=== PATIENT | female | born 1995 | race Caucasian/White ===

== ENCOUNTER 2022-11-08 09:03 | Outpatient (OUT) | payer OTHER, SELFPAY ==
--- NOTE | 2022-11-08 09:20 | MM_ITS ---
Patient: TESS ASHLEY Exam Date: 11/08/2022 : 1995 Gender:F Ordering : DR Aleksey Bell . Admission #: [id number] Family : Order #: [id number] CLICK HERE TO VIEW EXAM RADIOLOGY REPORT PROCEDURE: MM TOMOSYNTHESIS DIAGNOSTIC BI, 11/08/2022, 09:11 US BREAST RT LIMITED, 11/08/2022, 10:00 COMPARISON: MG MAMM DIAGNOSTIC 3D JESICA CAD, 11/29/2021. INDICATIONS: Mastodyna N64.4, Right Breast Lump N63.10 Calculator Name NCI Breast Cancer Risk Assessment Tool 5 Year Breast Cancer Risk Not Applicable. Lifetime Breast Cancer Risk Not Applicable. Personal Breast Cancer No Personal Ovarian Cancer No Treatments None Family Cancers Aunt-maternal with breast cancer at age 42. LOCATION: [facility] BREAST COMPOSITION: Heterogeneously dense,which may obscure small masses. FINDINGS: DIAGNOSTIC CATEGORY 1--NEGATIVE. NO CHANGE FROM COMPARISON ASSESSMENT. RIGHT BREAST: No significant suspicious finding. No mammographic or ultrasound abnormalities identified in the region of the patient's palpable mass upper-outer quadrant, anterior breast, this was demarcated a triangle marker. LEFT BREAST: No significant suspicious finding. RECOMMENDATIONS: CLINICAL EVALUATION. PLEASE NOTE: A NORMAL MAMMOGRAM DOES NOT EXCLUDE THE POSSIBILITY OF BREAST CANCER. A CLINICALLY SUSPICIOUS PALPABLE LUMP SHOULD BE BIOPSIED. Dictated by: Kevin Gentiel MD on 11/08/2022 at 10:09 Approved by: Kevin Gentile MD on 11/08/2022 at 10:10
--- NOTE | 2022-11-08 09:57 | US_ITS ---
Patient: TESS ASHLEY Exam Date: 11/08/2022 : 1995 Gender:F Ordering : DR Aleksey Bell . Admission #: [id number] Family : Order #: [id number] CLICK HERE TO VIEW EXAM RADIOLOGY REPORT PROCEDURE: MM TOMOSYNTHESIS DIAGNOSTIC BI, 11/08/2022, 09:11 US BREAST RT LIMITED, 11/08/2022, 10:00 COMPARISON: MG MAMM DIAGNOSTIC 3D JESICA CAD, 11/29/2021. INDICATIONS: Mastodyna N64.4, Right Breast Lump N63.10 Calculator Name NCI Breast Cancer Risk Assessment Tool 5 Year Breast Cancer Risk Not Applicable. Lifetime Breast Cancer Risk Not Applicable. Personal Breast Cancer No Personal Ovarian Cancer No Treatments None Family Cancers Aunt-maternal with breast cancer at age 42. LOCATION: [facility] BREAST COMPOSITION: Heterogeneously dense,which may obscure small masses. FINDINGS: DIAGNOSTIC CATEGORY 1--NEGATIVE. NO CHANGE FROM COMPARISON ASSESSMENT. RIGHT BREAST: No significant suspicious finding. No mammographic or ultrasound abnormalities identified in the region of the patient's palpable mass upper-outer quadrant, anterior breast, this was demarcated a triangle marker. LEFT BREAST: No significant suspicious finding. RECOMMENDATIONS: CLINICAL EVALUATION. PLEASE NOTE: A NORMAL MAMMOGRAM DOES NOT EXCLUDE THE POSSIBILITY OF BREAST CANCER. A CLINICALLY SUSPICIOUS PALPABLE LUMP SHOULD BE BIOPSIED. Dictated by: Kevin Gentile MD on 11/08/2022 at 10:09 Approved by: Kevin Gentile MD on 11/08/2022 at 10:10
== END 2022-11-08 09:04 | disposition home or self-care (01) ==
LOC: MAMMO 09:03
PROVIDERS: PCP Family Medicine; Visit Provider Family Medicine
DX: N64.4 Mastodynia (principal); N63.10 Unspecified lump in the right breast, unspecified quadrant
CPT/HCPCS: 76642; 77066; G0279

== ENCOUNTER 2022-12-13 12:07 | Outpatient (OUT) | payer OTHER, SELFPAY ==
[2022-12-13 13:00] LABS: Basophils Percent Auto 0.4 % (0.2-2.0); Eosinophils Absolute Auto 0.1 10^3/uL (0.0-0.7); Eosinophils Percent Auto 1.4 % (0.9-7.0); Hematocrit 42.2 % (36.0-48.0); Hemoglobin 13.1 g/dL (12.0-16.0); Immature Granulocytes Abs Auto 0.03 10^3/uL (0.00-0.03); Immature Granulocytes Pct Auto 0.3 % (0.0-0.5); Lymphocytes Absolute Auto 3.1 10^3/uL (1.2-3.8); Lymphocytes Percent Auto 34.3 % (20.5-60.0); Mean Corpuscular Hemoglobin 24.9 pg (26.7-34.0); Mean Corpuscular Volume 80.2 fL (81.0-99.0); Mean Platelet Volume 10.1 fL (9.5-13.5); Monocytes Absolute Auto 0.5 10^3/uL (0.3-0.8); Monocytes Percent Auto 5.7 % (1.7-12.0); Neutrophils Absolute Auto 5.2 10^3/uL (1.4-6.5); Neutrophils Percent Auto 57.9 % (43.0-75.0); Platelet Count 326 10^3/uL (150-450); Red Blood Count 5.26 10^6/uL (4.20-5.40); Red Cell Distribution Width 14.3 % (11.0-15.0)
[2022-12-13 13:06] LABS: Estimated Average Glucose 260 mg/dL; Glycohemoglobin A1C 10.7 % (4.5-6.2)
[2022-12-13 13:18] LABS: Alanine Aminotransferase 206 U/L (14-59); Albumin Globulin Ratio 0.9; Albumin Level 3.8 g/dL (3.4-5.0); Alkaline Phosphatase 71 U/L (46-116); Anion Gap 15.5; Aspartate Amino Transferase 101 U/L (15-37); Bilirubin Total 0.6 mg/dL (0.2-1.0); Calcium 9.2 mg/dL (8.5-10.1); Carbon Dioxide 25.5 mmol/L (21.0-32.0); Chloride 99 mmol/L (98-107); Chol HDL Ratio 5.6; Cholesterol 262 mg/dL (<=200); Estimated GFR (African America >60 (>=60); Estimated GFR (Non-African Ame >60 (>=60); Free T3 3.04 pg/mL (2.18-3.98); Globulin 4.2 g/dL; Glucose 222 mg/dL (74-106); HDL Cholesterol 47 mg/dL (40-60); Sodium 136 mmol/L (136-145); Triglycerides 312 mg/dL (<=150); VLDL CHOLESTEROL 62.4 mg/dL
[2022-12-14 12:08] LABS: Insulin 28.1 uIU/mL (2.6-24.9)
== END 2022-12-13 12:08 | disposition home or self-care (01) ==
LOC: LAB 12:08
PROVIDERS: PCP Family Medicine; Visit Provider Family Medicine
DX: Z00.00 Encounter for general adult medical examination without abnormal findings (principal); E55.9 Vitamin D deficiency, unspecified
CPT/HCPCS: 36415; 80053; 80061; 82306; 83036; 83525; 83540; 84436; 84443; 84481; 85025

== ENCOUNTER 2023-01-11 14:58 | Emergency (ER) | payer OTHER, SELFPAY ==
--- NOTE | 2023-01-11 15:03 | XR_ITS ---
[address] [address] Patient Name: TESS ASHLEY MRN: [id number] date: 1995 Sex: F Assigned Patient Location: ER Current Patient Location: ED.MAIN Accession/Order Number: [id number] Exam Date: 01/11/2023 15:10 Report Date: 01/11/2023 15:38 At the request of: NITIN CARTER Procedure: XR wrist LT min 3V EXAM: XR wrist LT min 3V HISTORY: Hit hand on bed frame COMPARISON: None. TECHNIQUE: 3 views FINDINGS: No osseous lesion, fracture, dislocation or subluxation. Joint spaces are normal. No visualized effusion. No visualized soft tissue edema. XR/XR wrist LT min 3V IMPRESSION: Normal x-rays Electronically authenticated by: MAY AUSTIN Date: 01/11/2023 15:38
[2023-01-11 15:04] VITALS: BP 149/65; PULSE 80; RESP 16; TEMP 37.1; O2SAT 98; BMI 45.6
--- NOTE | 2023-01-11 15:28 | ED.GENADUL1 ---
HPI - General Adult General Chief complaint: Extremity Injury, Upper Stated complaint: upper extremity left wrist Time Seen by Provider: 01/11/23 15:03 Source: patient Mode of arrival: walk-in History of Present Illness HPI narrative: 27-year-old female presents to er chief complaint of left wrist injury. She states she accidentally struck it against the bedpost. She has pain from these lateral aspect of the left wrist. No acute swelling. She has full range of motion. Extremity nv intact. She is right hand dominant. ice applied prior to arrival Related Data Previous Rx's Medication Instructions Recorded ibuprofen 800 mg tablet 800 mg PO Q8H PRN pain #20 tabs 01/11/23 Allergies Allergy/AdvReac Type Severity Reaction Status Date / Time No Known Drug Allergies Allergy Verified 01/11/23 15:08 Review of Systems ROS Narrative All Systems are negative except as noted/marked.All systems reviewed and otherwise negative Exam Narrative Exam Narrative: Nurses note and vital signs reviewed and patient is not hypoxic. General: The patient appears well and in no apparent distress. Patient is resting comfortably on cart. Skin: Warm, dry, no pallor noted. There is no rash noted. Head: Normocephalic, atraumatic Eye: Normal conjunctiva, no drainage, EOMI. PERRL Musculoskeletal: left wrist tenderness, full range of motion, no acute deformity. remainder of extremity are within normal limits. Neurological: A&O x4, normal speech Psychiatric: Cooperative Constitutional Vital Signs, click to edit/add: Last Vital Signs Temp 98.7 F 01/11/23 15:04 Pulse 80 01/11/23 15:04 Resp 16 01/11/23 15:04 BP 149/65 H 01/11/23 15:04 Pulse Ox 98 01/11/23 15:04 O2 Del Method Room Air 01/11/23 15:04 Course Vital Signs Vital signs: Vital Signs Temperature 98.7 F 01/11/23 15:04 Pulse Rate 80 01/11/23 15:04 Respiratory Rate 16 01/11/23 15:04 Blood Pressure 149/65 H 01/11/23 15:04 Pulse Oximetry 98 01/11/23 15:04 Oxygen Delivery Method Room Air 01/11/23 15:04 Temperature 98.7 F 01/11/23 15:04 Pulse Rate 80 11/04/23 15:04 Respiratory Rate 16 01/11/23 15:04 Blood Pressure 149/65 H 01/11/23 15:04 Pulse Oximetry 98 01/11/23 15:04 Oxygen Delivery Method Room Air 01/11/23 15:04 Medical Decision Making MDM Narrative Medical decision making narrative: she presented with a left wrist injury to left wrist. Accidentally struck it against a bedpost earlier this morning. No acute swelling or deformity. x-ray shows no acute fractures. Patient was treated as a left wrist sprain. Thumb spica splint placed by nursing staff. Patient tolerated well. Patient given prescription for ibuprofen. Instructed to follow-up primary care physician. Rest ice and elevate patient verbalizes understanding agrees with plan of care Medical Records Medical records reviewed: Yes I reviewed the patient's medical records Imaging Data wrist: Attestation: I have reviewed the pertinent imaging results. Discharge Plan Discharge Chief Complaint: Extremity Injury, Upper Clinical Impression: Sprain and strain of wrist Patient Disposition: Home, Self-Care Time of Disposition Decision: 15:25 Condition: Good Mode of Transportation: Private Vehicle Prescriptions / Home Meds: New ibuprofen 800 mg tablet 800 mg PO Q8H PRN (Reason: pain) Qty: 20 0RF Instructions: P.R.I.C.E. Treatment (ED), Wrist Sprain (ED) Stand Alone Forms: Portal Instructions Referrals: Aleksey Bell MD [Primary Care Provider] - 1 week Discharge Date/Time: 01/11/23 15:22
== END 2023-01-11 15:22 | disposition home or self-care (01) ==
LOC: ER 15:02
PROVIDERS: Emergency Provider Emergency Medicine; PCP Family Medicine
DX: S63.502A Unspecified sprain of left wrist, initial encounter (principal); S66.912A Strain of unspecified muscle, fascia and tendon at wrist and hand level, left hand, initial encounter; W22.03XA Walked into furniture, initial encounter
CPT/HCPCS: 73110; 99283

== ENCOUNTER 2023-02-27 07:25 | Outpatient (RCR) | payer OTHER, SELFPAY ==
[2023-02-27 08:21] LABS: HCG Quantitative 5358 mIU/mL
[2023-03-01 11:23] LABS: HCG Quantitative 6995 mIU/mL
== END 2023-03-09 08:00 | disposition home or self-care (01) ==
LOC: LAB 07:25
PROVIDERS: PCP Family Medicine; Visit Provider Obstetrics & Gynecology
DX: N92.6 Irregular menstruation, unspecified (principal)
CPT/HCPCS: 36415; 84702

== ENCOUNTER 2023-03-14 09:31 | Outpatient (OUT) | payer OTHER, SELFPAY ==
--- NOTE | 2023-03-14 09:34 | US_ITS ---
[address] [address] Patient Name: TESS ASHLEY MRN: [id number] date: 1995 Sex: F Assigned Patient Location: [place] Current Patient Location: [place] Accession/Order Number: [id number] Exam Date: 03/14/2023 09:35 Report Date: 03/14/2023 11:57 At the request of: PORSHA MOTA Procedure: US OB transvaginal EXAMINATION: US OB transvaginal HISTORY: MISSED MENSES COMPARISON: No relevant comparison available. FINDINGS: Cabrera intrauterine gestation Gestational sac: 1.7 cm, 6 weeks 0 days CRL: 1.3 cm, 7 weeks 3 days Yolk sac: 4.5 mm Heart rate: 165 bpm Cervix: Closed, 4.0 cm The uterus is normal, anteverted, anteflexed The ovaries are normal Clinical age: Unknown Ultrasound age: 7 weeks 3 days Ultrasound KULDIP: 10/28/2023 US/US OB transvaginal IMPRESSION: Viable cabrera intrauterine gestation measuring 7 weeks 3 days Electronically authenticated by: MAY PILLAI Date: 03/14/2023 11:57
--- OUTSIDE RECORDS SUMMARY | 2023-03-14 09:50 | XMS_ITS | CCD ---
Author Name Unknown Address [address] [facility] [facility] [address] [place] [address] Organization [facility] Care Team Providers Care Specialist Field Engineer Name Role Phone Champ Bell MD Primary Care Provider Champ Bell Primary Care Physician [phone] Champ Bell MD Primary Care Provider [phone] CHAMP BELL Admitting Unavailable COLLINSYCHAMP Primary Care Unavailable RHONDA BELLLAS Referring Unavailable GREGORIO FLOYD Attending Unava ilable HOY ., DR OAKES Primary Care Unavailable HOY ., DR OAKES Attending Unavailable HOY ., DR OAKES Admitting Unavailable HOY ., DR OAKES Primary Care Unavailable HOY ., DR OAKES Attending Unavailable HOY ., DR OAKES Admitting Unavailable HOY ., DR OAKES Primary Care Unavailable HOY ., DR OAKES Attending Unavailable HOY ., DR OAKES Admitting Unavailable HOY ., DR OAKES Primary Care Unavailable HOY ., DR OAKES Attending Unavailable HOY ., DR OAKES Admitting Unavailable HOY ., DR OAKES Consulting Unavailable HOY ., DR OAKES Primary Care Unavailable HOY ., DR OAKES Attending Unavailable HOY ., DR OAKES Admitting Unavailable HOY ., DR OAKES Consulting Unavailable HOY ., DR OAKES Primary Care Unavailable HOY ., DR OAKES Attending Unavailable HOY ., DR OAKES Admitting Unavailable MITA ., GREGORY Attending Unavailable MITA ., GREGORY Admitting Unavailable GRECHNY ., MARINA WILSON Consulting Unavailabl e HOY ., DR OAKES Primary Care Unavailable SYLVESTER PRINGLE Consulting Unavailable PARTH ., MARINA WILSON Consulting Unavailchad newton HAY ., DR MARTINEZ Attending Unavailable HAY ., DR MARTINEZ Admitting Unavailable HOY ., DR OAKES Primary Care Unavailable HAY ., DR MARTINEZ Consulting Unavailable TUAN LEWIS Consulting Unavailable HOY ., DR OAKES Consulting Unavailable HOY ., DR OAKES Primary Care Unavailable HOY ., DR OAKES Attending Unavailable HOY ., DR OAKES Admitting Unavailable HOY ., DR OAKES Consulting Unavailable HOY ., DR OAKES Primary Care Unavailable HOY ., DR OAKES Attending Unavailable HOY ., DR OAKES Admitting Unavailable ZIEBER, DR ALVARADO Silva Consulting Unavailable HOY ., DR OAKES Consulting Unavailable HOY ., DR OAKES Primary Care Unavailable HOY ., DR OAKES Attending Unavailable HOY ., DR OAKES Admitting Unavailable ZIEBER, DR ALVARADO Silva Consulting Unavailable HOY ., DR OAKES Consulting Unavailable HOY ., DR OAKES Primary Care Unavailable HOY ., DR OAKES Attending Unavailable HOY ., DR OAKES Admitting Unavailable MAGNOLIA, DR MAY Silverman Consulting Unavailable CRYSTAL PENG Consulting Unavailable COLLINSY ., DR OAKES Primary Care Unavailable CRYSTAL PENG Attending Unavailable CRYSTAL PENG Admitting Unavailable Medications Current Medications Medication Drug Class(es) Dates Sig (Normalized) Sig (Original) acetaminophen 325 mg / HYDROcodone bitartrate 5 mg oral tablet (1 source) Opioid Agonist Start: 07-03-2020 [place] 325 mg-5 mg oral tablet 1 tab(s), Oral, q6hr for pain, 8 tab(s), Refill(s) 0 Start Date: 07/03/20 Status: Ordered brexpiprazole 1 mg oral tablet (1 source) Atypical Antipsychotic Start: 06-05-2020 take 1 tablet by mouth once daily Rexulti 1 mg oral tablet mg tab(s), Oral, Daily, Refills(s) 0 Start Date: 06/05/20 Status: Ordered cetirizine hydrochloride 10 mg oral tablet (1 source) Histamine-1 Receptor Antagonist take 1 tablet by mouth once daily cetirizine (ZYRTEC) 10 MG tablet Take 10 mg by mouth daily . 0 Active 24 hr desvenlafaxine succinate 100 mg extended release oral tablet (2 sources) Serotonin and Norepinephrine Reuptake Inhibitor Start: 07-12-2021 take 1 tablet by mouth once daily, then take 1 tablet by mouth every twenty-four hours desvenlafaxine succinate (PRISTIQ) 100 MG 24 hr tablet Take 100 mg by mouth daily . 0 07/12/2021 Active Start: 06-05-2020 take 1 tablet by tori th once daily desvenlafaxine 100 mg Tab- 100 mg = 1 tab(s), Oral, Daily, # 30 tab(s), Refills(s) 0 Start Date: 06/05/20 Status: Ordered 0.5 ml dulaglutide 1.5 mg/ml auto-injector (1 source) GLP-1 Receptor Agonist Start: 08-22-2021 Trulicity 0.75 mg/0.5 mL Pen INJECT 1 PEN SUBCUTANEOUSLY ONCE A WEEK 0 08/22/2021 Active empagliflozin 25 mg oral tablet (2 sources) Sodium-Glucose Cotransporter 2 Inhibitor Start: 08-06-2021 take 1 tablet by mouth once daily Jardiance 25 mg Tab Take 1 tablet by mouth daily . 0 08/06/2021 Active Start: 06-05-2020 take 1 mg by mouth o nce daily in the morning Jardiance 10 mg oral tablet mg tab(s), Oral, qAM, Refills(s) 0 Start Date: 06/05/20 Status: Ordered ibuprofen 800 mg oral tablet (1 source) Nonsteroidal Anti-inflammatory Drug Start: 02-10-2020 take 1 mg by mouth three times daily ibuprofen 800 mg Tab mg tab(s), Oral, TID, Refills(s) 0 Start Date: 02/10/20 Status: Ordered Humalog (1 source) Insulin Analog Start: 02-10-2020 Humalog SubCutaneous, Refills(s) 0 Start Date: 02/10/20 Status: Ordered Lamictal (2 sources) Mood Stabilizer, Anti-epileptic Agent Start: 01-17-2019 Lamictal Oral, BID, Refills(s) 0 Start Date: 01/17/19 Status: Ordered take 1 tablet by mouth twice reinaldo ly lamoTRIgine (LAMICTAL) 100 MG tablet Take 100 mg by mouth 2 (two) times a day . 0 Active levothyroxine sodium 0.025 mg oral tablet (1 source) l-Thyroxine take 1 tablet by mouth once daily levothyroxine (SYNTHROID, LEVOTHROID) 25 MCG tablet Take 25 mcg by mouth once daily . 0 Active 24 hr metFORMIN hydrochloride 500 mg extended release oral tablet (2 sources) Biguanide Start: 08-27-2021 take 2 tablets by mouth twice daily at mealtime metFORMIN (GLUCOPHAGE-XR) 500 MG 24 hr tablet Take 2 (two) tablets (1,000 mg total) by mouth 2 (two) times a day with meals Increase dose gradually as instructed. . 120 tablet 11 08/27/2021 Active End: 08-27-2021 take 1 tablet by mouth once daily at breakfast metFORMIN (GLUCOPHAGE-XR) 500 MG 24 hr tablet Take 500 mg by mouth daily with breakfast . 0 08/27/2021 Discontinued (Reorder) Protonix (2 sources) Proton Pump Inhibitor Start: 01-17-2019 Protonix Oral, Daily, Refills(s) 0 Start Date: 01/17/19 Status: Ordered take 1 tablet by mouth once nella y pantoprazole (PROTONIX) 40 MG tablet Take 40 mg by mouth daily . 0 Active pioglitazone 15 mg oral tablet (1 source) Peroxisome Proliferator Receptor alpha Agonist, Peroxisome Proliferator Receptor gamma Agonist, Thiazolidinedione take 1 tablet by mouth once daily pioglitazone (ACTOS) 15 MG tablet Take 15 mg by mouth daily . 0 Active rosuvastatin calcium 10 mg oral tablet (1 source) HMG-CoA Reductase Inhibitor take 1 tablet by mouth once daily rosuvastatin (CRESTOR) 10 MG tablet Take 10 mg by mouth daily . 0 Active spironolactone 50 mg oral tablet (1 source) Aldosterone Antagonist take 1 tablet by mouth twice daily spironolactone (ALDACTONE) 50 MG tablet Take 50 mg by mouth 2 (two) times a day . 0 Active sucralfate 1000 mg oral tablet (1 source) Aluminum Complex Start: 021 take 1 tablet by mouth four times daily Carafate 1 gram Tab 1 gm = 1 tab(s), Oral, QID, # 120 tab(s), Refills(s) 0 Start Date: 06/05/20 Status: Ordered 24 hr venlafaxine 225 mg extended release oral tablet (1 source) Serotonin and Norepinephrine Reuptake Inhibitor Start: 019 take 225 mg by mouth once daily Effexor XR 225 mg, Oral, Daily, Refills(s) 0 Start Date: 01/17/19 Status: Ordered Problems Active Problems Problem Classification Problem Date Documented Da te Episodic/Chronic Cardiac dysrhythmias (4 sources) Palpitations; Translations: [PALPITATIONS] Onset: 04-23-2022 Episodic Congestive heart failure; nonhypertensive (1 source) Unspecified diastolic (congestive) heart failure; Translations: [UNSPECIFIED DIASTOLIC HEART FAILURE] Onset: 12-13-2021 Chronic Diabetes mellitus with complications (1 source) Hyperglycemia due to type 2 diabetes mellitus; Translations: [Type 2 diabetes mellitus with hyperglycemia] Chronic Diabetes mellitus without complication (2 sources) Diabetes mellitus; Translations: [Type 2 diabetes mellitus without complications] Onset: 03-15-2022 08-26-2013 Chronic Hypertension with complications and secondary hypertension (1 source) Hypertensive heart disease with heart failure; Translations: [HTN HEART DISEASE W/HEART FAIL] Onset: 12-13-2021 Chronic Mood disorders (1 source) Depressive disorder 01-17-2019 Chronic Other injuries and conditions due to external causes (1 source) Injury of head; Translations: [Unspecified injury of head, initial encounter] Onset: 08-25-2021 Episodic Other nervous system disorders (1 source) Skin sensation disturbance 06-07-2020 Episodic Other nutritional; endocrine; and metabolic disorders (1 source) Overweight; Translations: [OVERWEIGHT] Onset: 04-28-2022 Episodic Other skin disorders (2 sources) Loss of hair; Translations: [Nonscarring hair loss, unspecified] Episodic Other skin disorders (2 sources) Skin tag 06-05-2020 Episodic Other upper respiratory infections (5 sources) Acute sinusitis, unspecified; Translations: [Acute upper respiratory infection, unspecified] Onset: 03-15-2022 Episodic Screening and history of mental health and substance abuse codes (1 source) Personal history of nicotine dependence; Translations: [PERSONAL HISTORY OF NICOTINE DEPEND] Onset: 03-15-2022 Episodic Thyroid disorders (2 sources) Disorder of thyroid gland; Translations: [Disorder of thyroid, unspecified] Episodic Unclassified (1 source) CONTACT W/AND (SUSP) EXPOS COVID-19; Translations: [CONTACT W/AND (SUSP) EXPOS COVID-19] Onset: 06-02-2022 Unclassified (2 sources) COUGH, UNSPECIFIED; Translations: [COUGH, UNSPECIFIED] Onset: 03-15-2022 Unclassified (4 sources) Unspecified lump in the right breast, overlapping quadrants; Translations: [UNS LUMP RT BREAST OVRLPNG QUADRNTS] Onset: 11-29-2021 Past or Other Problems Problem Classification Problem Date Documented Da te Episodic/Chronic Deficiency and other anemia (1 source) Anemia, unspecified; Translations: [ANEMIA UNSPECIFIED] Onset: 12-13-2021 Episodic Diabetes mellitus without complication (1 source) Other abnormal glucose; Translations: [OTHER ABNORMAL GLUCOSE] Onset: 12-13-2021 Episodic E Codes: Overexertion (1 source) Slipping, tripping and stumbling without falling due to stepping into hole or opening, initial encounter; Translations: [SLIP STUMBL NO FALL STEP HOLE INIT] Onset: 08-17-2021 Episodic Genitourinary symptoms and ill-defined conditions (4 sources) Personal history of other diseases of urinary system; Translations: [PERSONAL HX OTH DZ URINARY SYSTEM] Onset: 06-13-2021 Episodic Nonspecific chest pain (4 sources) Other chest pain; Translations: [OTHER CHEST PAIN] Onset: 12-10-2021 Episodic Other non-traumatic joint disorders (3 sources) Pain in left knee; Translations: [PAIN IN LEFT KNEE] Onset: 08-15-2021 Episodic Sprains and strains (2 sources) Injury of muscle and tendon at neck level; Translations: [Strain of muscle, fascia and tendon at neck level, initial encounter] Onset: 08-17-2021 Episodic Superficial injury; contusion (1 source) Contusion of scalp, initial encounter; Translations: [CONTUSION SCALP INITIAL ENCOUNTER] Onset: 09-16-2021 Episodic Syncope (4 sources) Syncope and collapse; Translations: [SYNCOPE AND COLLAPSE] Onset: 09-12-2021 Episodic Unclassified (1 source) COUGH, UNSPECIFIED; Translations: [COUGH, UNSPECIFIED] Onset: 03-13-2022 Results Test Name Value Interpretation Reference Range Facility Covid-19 PCR ([facility])on 05-09 SARS-CoV-2 (COVID-19) RNA EZEKIEL+probe Ql (Unsp spec) Not detected Normal NOT DETECTED [facility] Comment on above: Result Comment: This test is not yet approved or cleared by the [place] FDA. When there are no FDA-approved or cleared tests available, and other criteria are met, FDA can make tests available under an emergency access mechanism called an Emergency Use Authorization (EUA). The EUA for this test is supported by the Lead Consultant of Health and Human Service's (HHS's) declaration that circumstances exist to justify the emergency use of in vitro diagnostics for the detection and/or diagnosis of the virus that causes COVID-19. This EUA will remain in effect (meaning this test can be used) for the duration of the COVID-19 declaration justifying emergency of IVDs, unless it is terminated or revoked by FDA (after which the test may no longer be used). When diagnostic testing is negative, the possibility of a false negative should be considered in the context of a patient's recent exposures and the presence of clinical signs and symptoms consistent with SARS-CoV-2. Performed By: #### C VDTBH #### [facility] [address] [place] [address] Dr. Rosemary Ames GROUP A STREP CULTUREon 05-09 S. pyogenes Ag Ql (Unsp spec) Culture Observations: NEGATIVE FOR GROUP A STREPTOCOCCUS. Normal [facility] Comment on above: Performed By: #### T 7, LIPID, TSH, CMADM, BNP, CMP #### [facility] [address] [place] [address] Dr. Rosemary Ames INFLUENZA A AND B AGon 05-31 INFLUANEGH SEE BELOW Normal [facility] Comment on above: Result Comment: Nega tive for Flu A protein angiten. Infection due to Flu A cannot be ruled out. Flu A angiten in the sample may be below the detection limit of the test. Performed By: #### I NFLUAB #### [facility] [address] [place] [address] Dr. Rosemary Ames INFLUBNEG SEE BELOW Normal [facility] Comment on above: Result Comment: Nega tive for Flu B protein antigen. Infection due to Flu B cannot be ruled out. Flu B antigen in the sample may be below the detection limit of the test. Performed By: #### I NFLUAB #### [facility] [address] [place] [address] Dr. Rosemary Ames INFLUENZA A AG Negative Normal NEGATIVE SEE COMMENT [facility] Comment on above: Performed By: #### I NFLUAB #### [facility] [address] [place] [address] Dr. Rosemary Ames INFLUENZA B AG Negative Normal NEGATIVE SEE COMMENT [facility] Comment on above: Performed By: #### I NFLUAB #### [facility] [address] [place], [place] [address] Dr. Rosemary Ames STREPT SCREENon 05-31-2022 STREP SCREEN A Negative Normal NEGATIVE [facility] Comment on above: Performed By: #### E RUR #### [facility] [address] [place], [place] [address] Dr. Rosemary Ames SYMPTOMATIC COVID-19 ANTIGEN on 05-31-2022 EUA Statement SEE BELOW Normal [facility] Comment on above: Result Comment: This test has not been FDA cleared or approved, but has been authorized by the FDA under an Emergency Use Authorization (EUA) for use by authorized laboratories certified under CLIA that meet the requirements to perform moderate or high complexity testing. This test has been authorized only for the detection of proteins from SARS-CoV-2, not for any other viruses or pathogens. The emergency use of this test is authorized for the duration of the declaration that circumstances exist justifying the authorization of emergency use of in vitro diagnostic tests for detection and/or diagnosis of Covid-19 under section 564(b)(1) of the Act, 21 U.S.C. 360bbb-3(b)(1), unless the declaration is terminated or authorization is revoked sooner. Performed By: #### T 7, LIPID, TSH, CMADM, BNP, CMP #### [facility] [address] [place] [address] [address] Rosemary Ames SARS-CoV-2 (COVID-19) RNA EZEKIEL+probe Ql (Unsp spec) Negative Normal NEGATIVE [facility] Comment on above: Performed By: #### T 7, LIPID, TSH, CMADM, BNP, CMP #### [facility] [address] [place] [id number] Rosemary Ames ECHOCARDIO M/2D COMPLETEon 0 04-10-2022 ECHOCARDIO M/2D COMPLETE Patient: TESS ASHLEY Exam Date: 04/10/2022 : 1995 Gender:F Ordering : DR CHAMP BELL . Admission #: [id number] Family : Order #: [id number] CLICK HERE TO VIEW EXAM ECHOCARDIOGRAM REPORT PROCEDURE: CARDIO PULMONARY ECHOCARDIO M/2D COMP INDICATIONS: Palpitations, diabetes COMPARISON: None. DESCRIPTION: COMPLETE ECHOCARDIOGRAM Real-time transthoracic echocardiography with 2D, M-mode, spectral and color flow Doppler performed. QUALITY: Technical quality was good. 60 248# BP 136/78 LEFT VENTRICLE: Normal chamber size. Normal left ventricular wall thickness. Normal systolic function. LV EF: Normal left ventricular ejection fraction, (>55%). DIASTOLIC: Normal diastolic function. ATRIAL SEPTUM: Visually appears intact. LEFT ATRIUM: Normal chamber size. RIGHT ATRIUM: Normal chamber size. RIGHT VENTRICLE: Normal chamber size. Normal right ventricular systolic function. TRICUSPID VALVE: Normal mobility and thickness. No stenosis with trivial regurgitation. No evidence of pulmonary hypertension. RVSP 30 mmHg MITRAL VALVE: Normal mobility and thickness. No evidence of mitral valve stenosis. No mitral regurgitation. AORTIC VALVE: Normal trileaflet appearance. No visible sclerosis. Normal leaflet mobility. No evidence of aortic valve stenosis. No aortic regurgitation. AORTIC ROOT: Normal diameter and appearance. PULMONIC VALVE: Normal thickness and mobility. No stenosis. No regurgitation. PERICARDIUM: No evidence of pericardial effusion. IVC: IVC is normal in size with no collapse. PLEURA: CONCLUSION: 1. Normal ventricular function. LVEF is 55 to 60%. 2. No significant valvular dysfunction. 3. Normal right-sided pressures. 4. No pericardial effusion. Adult Echocardiography Procedure Report Left Ventricle LVEDD (3.7 - 5.6 cm): 4.36 cm LVESD (2.2 - 4.0 cm): 3.31 cm LVIVS thickness (0.6 - 1.2 cm): 0.84 cm LVPW thickness (0.5 - 1.0 cm): 0.86 cm e': 0.15 m/s E - e': 6.90 LVOT Max Gradient: 3.37 mm[Hg] Peak Velocity (LVOT): 0.92 m/s LVOT Diameter 2.11 cm Left Ventricular Ejection Fraction: 55-60 % Left Atrium LA Volume Index (2D A2C): 51.48 ml, 51.48 ml Left Atrium Systolic Dimension: 3.44 cm Mitral Valve MV E to A Ratio: 1.52 Mitral Valve A-Wave Peak Velocity: 0.69 m/s Mitral Valve E-Wave Peak Velocity: 1.05 m/s Right Ventricle Aorta AO Root Diam: 2.70 cm Aortic Valve AoV Area (Peak Joshua): 3.05 cm2, 3.05 cm2 Peak Velocity(Antegrade Flow): 1.05 m/s Peak Gradient(Antegrade Flow): 4.42 mm[Hg] Tricuspid Valve Peak Velocity (Regurgitant Flow): 2.34 m/s Peak Velocity: 0.58 m/s Pulmonic Valve Peak Velocity: 1.07 m/s, 0.92 m/s Peak Gradient: 4.60 mm[Hg], 3.37 mm[Hg] Right Atrium Right Atrium Systolic Pressure: 27.72 ml, 27.72 ml Dictated by: Robert Moeller M.D. on 04/10/2022 at 17:38 Approved by: Robert Moeller M.D. on 04/10/2022 at 17:40 Normal [facility] CBC AUTO DIFFon 03-13-2022 BASO # 0.0 103/ul Normal 0.0-0.1 [facility] Comment on above: Performed By: #### A 1C #### [facility] [address] [place] [address] Dr. Rosemary Ames Basophils/100 WBC (Bld) 0.3 % Normal 0.2-2.0 [facility] Comment on above: Performed By: #### A 1C #### [facility] [address] [place] [address] Dr. Rosemary Ames EO # 0.0 103/ul Normal 0.0-0.7 [facility] Comment on above: Performed By: #### A 1C #### [facility] [address] [place] [address] Dr. Rosemary Ames Eosinophils/100 WBC (Bld) 0.5 % Critically low 0.9-7.0 [facility] Comment on above: Performed By: #### A 1C #### [facility] [address] [place] [address] Dr. Rosemary Ames Erythrocyte distribution width (RBC) [Ratio] 14.5 % Normal 11.0-15.0 [facility] Comment on above: Performed By: #### A 1C #### [facility] [address] [place] [address] Dr. Rosemary Ames Hematocrit (Bld) [Volume fraction] 39.7 % Normal 36.0-48.0 [facility] Comment on above: Performed By: #### A 1C #### [facility] [address] [place] [address] Dr. Rosemary Ames Hemoglobin (Bld) [Mass/Vol] 12.9 g/dL Normal 12.0-16.0 [facility] Comment on above: Performed By: #### A 1C #### [facility] [address] [place] [address] Dr. Rosemary Ames IG # 0.03 10e3/ul Normal 0.00-0.03 [facility] Comment on above: Performed By: #### A 1C #### [facility] [address] [place] [address] Dr. Rosemary Ames IG % 0.4 % Normal 0.0-0.5 [facility] Comment on above: Performed By: #### A 1C #### [facility] [address] [place] [address] Dr. Rosemary Ames LYMPH # 0.5 103/ul Critically low 1.2-3.8 [facility] Comment on above: Performed By: #### A 1C #### [facility] [address] [place] [address] Dr. Rosemary Ames Lymphocytes/100 WBC (Bld) 6.6 % Critically low 20.5-60.0 [facility] Comment on above: Performed By: #### A 1C #### [facility] [address] [place] [address] Dr. Rosemary Ames MANUAL DIFF REQ NO Normal [facility] Comment on above: Performed By: #### A 1C #### [facility] [address] [place] [address] Dr. Rosemary Ames MCH (RBC) [Entitic mass] 25.1 pg Critically low 26.7-34.0 [facility] Comment on above: Performed By: #### A 1C #### [facility] [address] [place] [address] Dr. Rosemary Ames MCHC (RBC) [Mass/Vol] 32.5 g/dL Normal 29.9-35.2 [facility] Comment on above: Performed By: #### A 1C #### [facility] [address] [place] [address] [address] Rosemary Ames MCV (RBC) [Entitic vol] 77.2 fL Critically low 81.0-99.0 [facility] Comment on above: Performed By: #### A 1C #### [facility] [address] [place] [address] [address] Rosemary Ames MONO # 0.7 103/ul Normal 0.3-0.8 [facility] Comment on above: Performed By: #### A 1C #### [facility] [address] [place] [address] Dr. Rosemary Ames Monocytes/100 WBC (Bld) 9.3 % Normal 1.7-12.0 [facility] Comment on above: Performed By: #### A 1C #### [facility] [address] [place] [address] Dr. Rosemary Ames NEUT # 6.2 103/ul Normal 1.4-6.5 [facility] Comment on above: Performed By: #### A 1C #### [facility] [address] [place] [address] Dr. Rosemary Ames Neutrophils/100 WBC (Bld) 82.9 % Critically high 43.0-75.0 [facility] Comment on above: Performed By: #### A 1C #### [facility] [address] [place] [address] [address] Rosemary Ames Platelet mean volume (Bld) [Entitic vol] 9.8 fL Normal 9.5-13.5 [facility] Comment on above: Performed By: #### A 1C #### [facility] [address] [place] [address] Dr. Rosemary Ames PLT 246 103/ul Normal 150-450 [facility] Comment on above: Performed By: #### A 1C #### [facility] [address] [place] [address] Dr. Rosemary Ames RBC 5.14 106/ul Normal 4.20-5.40 [facility] Comment on above: Performed By: #### A 1C #### [facility] [address] [place] [address] [address] Rosemary Ames WBC 7.4 103/ul Normal 4.0-11.0 [facility] Comment on above: Performed By: #### A 1C #### [facility] [address] [place] [address] [address] Rosemary Ames Covid-19 PCR ([facility])on SARS-CoV-2 (COVID-19) RNA EZEKIEL+probe Ql (Unsp spec) Not detected Normal NOT DETECTED [facility] Comment on above: Result Comment: When diagnostic testing is negative, the possibility of a false negative should be considered in the context of a patient's recent exposures and the presence of clinical signs and symptoms consistent with SARS-CoV-2. This test is not yet approved or cleared by the [place] FDA. When there are no FDA-approved or cleared tests available, and other criteria are met, FDA can make tests available under an emergency access mechanism called an Emergency Use Authorization (EUA). The EUA for this test is supported by the [place] of Health and Human Service's declaration that circumstances exist to justify the emergency use of in vitro diagnostics for the detection and/or diagnosis of the virus that causes COVID-19. This EUA will remain in effect for the duration of the COVID-19 declaration justifying emergency of IVDs, unless it is terminated or revoked by the FDA (after which the test may no longer be used). Performed By: #### A 1C #### [facility] [address] [place] [address] Dr. Rosemary Ames D-DIMERon 03-13-2022 D-DIMER 0.26 mg/L FEU Normal <=0.59 [facility] Comment on above: Performed By: #### T 7, LIPID, TSH, CMADM, BNP, CMP #### [facility] [address], [place] [address] Dr. Rosemary Ames D-DIMER COMMENTS SEE BELOW Normal The [facility] Comment on above: Result Comment: Incr eases in D-Dimer concentration observed with thromboembolic events can be variable due to localization, size, and age of the thrombus. Therefore, a thromboembolic event cannot be diagnosed with certainty on the basis of the reference range. D-Dimers may also be elevated for a variety of disorders including: advanced age, , coronary disease, cancer, liver disease, infection, inflammation, hematoma, DIC, trauma, post-surgery, diabetes, thrombolytic or anticoagulant therapy, stress, and generalized hospitalization. Performed By: #### T 7, LIPID, TSH, CMADM, BNP, CMP #### [facility] [address] [place] [address] Dr. Rosemary Ames ER URINE PROFILEon 3 Bilirubin Ql (U) Negative Normal NEGATIVE [facility] Comment on above: Performed By: #### E RUR #### [facility] [address] [place] [address] Dr. Rosemary Ames Clarity (U) CLEAR Normal CLEAR [facility] Comment on above: Performed By: #### E RUR #### [facility] [address] [place] [address] Dr. Rosemary Ames Color (U) LT. YELLOW Normal YELLOW [facility] Comment on above: Performed By: #### E RUR #### [facility] [address] [place] [address] Dr. Rosemary MARTIN A micrscopic examination will be performed if indicated. Normal [facility] Comment on above: Performed By: #### E RUR #### [facility] [address] [place] [address] Dr. Rosemary Ames Glucose Ql (U) Negative Normal NEGATIVE [facility] Comment on above: Performed By: #### E RUR #### [facility] [address] [place] [address] Dr. Rosemary Ames Hemoglobin Ql (U) Negative Normal NEGATIVE The [facility] Comment on above: Performed By: #### E RUR #### [facility] [address] [place] [address] Dr. Rosemary Ames Ketones Ql (U) Negative Normal NEGATIVE [facility] Comment on above: Performed By: #### E RUR #### [facility] [address] [place] [address] Dr. Rosemary Ames LEUKOCYTES Negative Normal NEGATIVE [facility] Comment on above: Performed By: #### E RUR #### [facility] [address] [place] [address] Dr. Rosemary Ames Nitrite Ql (U) Negative Normal NEGATIVE [facility] Comment on above: Performed By: #### E RUR #### [facility] [address] [place] [address] Dr. Rosemary Ames pH (U) 6.0 [pH] Normal 5-9 [facility] Comment on above: Performed By: #### E RUR #### [facility] [address] [place] [address] Dr. Rosemary Ames SPEC GRAVITY 1.015 Normal 1.005-<=1.025 [facility] Comment on above: Performed By: #### E RUR #### [facility] [address] [place] [address] Dr. Rosemary Ames UA PROTEIN Negative Normal NEGATIVE/ TRACE [facility] Comment on above: Performed By: #### E RUR #### [facility] [address] [place] [address] Dr. Rosemary Ames UR MICRO IND NOT INDICATED Normal The [facility] Comment on above: Performed By: #### E RUR #### [facility] [address] [place] [address] Dr. Rosemary Ames Urobilinogen Qn (U) 0.2 {Vincent'U}/dL Normal 0.2 - 1. 0 [facility] Comment on above: Performed By: #### E RUR #### [facility] [address] [place] [address] Dr. Rosemary Ames INFLUENZA A AND B AGon 03-13 INFLUANEGH SEE BELOW Normal [facility] Comment on above: Result Comment: Nega tive for Flu A protein angiten. Infection due to Flu A cannot be ruled out. Flu A angiten in the sample may be below the detection limit of the test. Performed By: #### E RUR #### [facility] [address] [place] [address] Dr. Rosemary Ames [facility] SEE BELOW Normal [facility] Comment on above: Result Comment: Nega tive for Flu B protein antigen. Infection due to Flu B cannot be ruled out. Flu B antigen in the sample may be below the detection limit of the test. Performed By: #### E RUR #### [facility] [address] [place] [address] Dr. Rosemary Ames INFLUENZA A AG Negative Normal NEGATIVE SEE COMMENT [facility] Comment on above: Performed By: #### E RUR #### [facility] [address] [place] [address] Dr. Rosemary Ames INFLUENZA B AG Negative Normal NEGATIVE SEE COMMENT [facility] Comment on above: Performed By: #### E RUR #### [facility] [address] [place] [address] Dr. Rosemary Ames LACTATE/LACTIC ACIDon 2022 Lactate [Moles/Vol] 2.0 mmol/L Critically high 0.4-1.9 [facility] Comment on above: Performed By: #### A 1C #### [facility] [address] [place] [address] Dr. Rosemary Ames LIPASEon 03-13-2022 Lipase [Catalytic activity/Vol] 79.0 U/L Normal 73.0-393.0 [facility] Comment on above: Performed By: #### A 1C #### [facility] [address] [place] [address] Dr. Rosemary Ames PREG HCG QUALon 03-13-2022 , QUAL Negative Normal NEGATIVE [facility] Comment on above: Performed By: #### A 1C #### [facility] [address] [place] [address] Dr. Rosemary Ames PROF 14(COMP METB)on 023 Albumin [Mass/Vol] 4.1 g/dL Normal 3.4-5.0 [facility] Comment on above: Performed By: #### A 1C #### [facility] [address] [place] [address] Dr. Rosemary Ames Albumin/Globulin [Mass ratio] 1.1 {ratio} Normal [facility] Comment on above: Performed By: #### A 1C #### [facility] [address] [place] [address] [address] Rosemary Ames ALP [Catalytic activity/Vol] 77 U/L Normal 46-116 [facility] Comment on above: Performed By: #### A 1C #### [facility] [address] [place] [address] [address] Rosemary Ames ALT [Catalytic activity/Vol] 149 U/L Critically high 14-59 [facility] Comment on above: Performed By: #### A 1C #### [facility] [address] [place] [address] [address] Rosemary Ames Anion gap [Moles/Vol] 16.0 mmol/L Normal [facility] Comment on above: Performed By: #### A 1C #### [facility] [address] [place] [address] [address] Rosemary Ames AST [Catalytic activity/Vol] 82 U/L Critically high 15-37 [facility] Comment on above: Performed By: #### A 1C #### [facility] [address] [place] [address] [address] Rosemary Ames Bilirubin [Mass/Vol] 1.0 mg/dL Normal 0.2-1.0 [facility] Comment on above: Performed By: #### A 1C #### [facility] [address] [place] [address] [address] Rosemary Ames Calcium [Mass/Vol] 9.1 mg/dL Normal 8.5-10.1 [facility] Comment on above: Performed By: #### A 1C #### [facility] [address] [place] [address] [address] Rosemary Ames Chloride [Moles/Vol] 96 mmol/L Critically low 98-107 [facility] Comment on above: Performed By: #### A 1C #### [facility] [address] [place] [address] [address] Rosemary Ames CO2 [Moles/Vol] 25.7 mmol/L Normal 21.0-32.0 [facility] Comment on above: Performed By: #### A 1C #### [facility] [address] [place] [address] [address] Rosemary Ames Creatinine [Mass/Vol] 0.78 mg/dL Normal 0.55-1.02 [facility] Comment on above: Performed By: #### A 1C #### [facility] [address] [place] [address] [address] Rosemary Ames EGFR-AF MARSHALLESE >60 Normal >=60 [facility] Comment on above: Performed By: #### A 1C #### [facility] [address] [place] [address] [address] Rosemary Ames EGFR-NON AF MARSHALLESE >60 Normal >=60 [facility] Comment on above: Performed By: #### A 1C #### [facility] [address] [place] [address] Dr. Rosemary Ames Globulin (S) [Mass/Vol] 3.9 g/dL Normal [facility] Comment on above: Performed By: #### A 1C #### [facility] [address] [place] [address] Dr. Rosemary Ames Glucose [Mass/Vol] 190 mg/dL Critically high 74-106 T [facility] Comment on above: Performed By: #### A 1C #### [facility] [address] [place] [address] Dr. Rosemary Ames Potassium [Moles/Vol] 3.7 mmol/L Normal 3.5-5.1 [facility] Comment on above: Performed By: #### A 1C #### [facility] [address] [place] [address] Dr. Rosemary Ames Protein [Mass/Vol] 8.0 g/dL Normal 6.4-8.2 [facility] Comment on above: Performed By: #### A 1C #### [facility] [address] [place] [address] Dr. Rosemary Ames Sodium [Moles/Vol] 134 mmol/L Critically low 136-145 Th [facility] Comment on above: Performed By: #### A 1C #### [facility] [address] [place] [address] [address] Rosemary Ames Urea nitrogen [Mass/Vol] 9.0 mg/dL Normal 7.0-18.0 [facility] Comment on above: Performed By: #### A 1C #### [facility] [address] [place] [address] Dr. Rosemary Ames Urea nitrogen/Creatinine [Mass ratio] 11.5 mg/mg Normal [facility] Comment on above: Performed By: #### A 1C #### [facility] [address] [place] [address] Dr. Rosemary Ames TROPONIN, HIGH SENSITIVITYon 03-13-2022 HSTROP <4.0 Normal 4.0-51.3 [facility] Comment on above: Result Comment: CUT- OFF POINTS HAVE BEEN ESTABLISHED BASED ON THE FOURTH UNIVERSAL DEFINITIONS OF MYOCARDIAL INFARCTION. THE UPPER REFERENCE LIMIT (URL) OF TROPONIN, DEFINED THE 99TH PERCENTILE OF cTnI DISTRIBUTION IN A REFERENCE POPULATION, HAS BEEN CONFIRMED THE DECISION THRESHOLD FOR CA DIAGNOSIS. Previously reported as: 3.9 On 03/13/2022 18:24 By DM9 Performed By: #### A 1C #### [facility] [address] [place] [address] Dr. Rosemary Ames TSHon 03-13-2022 TSH 0.440 uIU/mL Normal 0.358-3.740 [facility] Comment on above: Performed By: #### A 1C #### [facility] [address] [place] [address] Dr. Rosemary Ames XR CHEST 1 Von 03-13-2022 XR CHEST 1 V EXAM: XR CHEST 1 V HISTORY: The patient is a 26-year-old female with COUGH COMPARISON: None. FINDINGS: The lungs are well-inflated and clear with no confluent airspace infiltrates, pleural effusions, or pneumothoraces. The cardiac silhouette is enlarged. There is no radiographic evidence of yasmine pulmonary edema. The trachea is midline. IMPRESSION: No acute cardiopulmonary abnormalities. Electronically authenticated by: TUAN LEWIS Date: 2022-03-13 18:59 Normal [facility] INSULINon 12-11-2021 Insulin 40.7 uIU/mL Critically high 2.6-24.9 The [facility] Comment on above: Performed By: #### A 1C #### [facility] [address] [place] [address] [address] Rosemary Ames BNPon 12-10-2021 NT PRO BNP <11.1 Normal <=450.0 [facility] Comment on above: Performed By: #### T 7, LIPID, TSH, CMADM, BNP, CMP #### [facility] [address] [place] [address] [address] Rosemary Ames CARDIAC RY ADMITon 022 CK [Catalytic activity/Vol] 80 U/L Normal 26-192 [facility] Comment on above: Performed By: #### T 7, LIPID, TSH, CMADM, BNP, CMP #### [facility] [address] [place] [address] Dr. Rosemary Ames CK.MB [Mass/Vol] 0.56 ng/mL Normal <=3.60 [facility] Comment on above: Performed By: #### T 7, LIPID, TSH, CMADM, BNP, CMP #### [facility] [address] [place] [address] Dr. Rosemary Ames HSTROP 5.3 pg/mL Normal 4.0-51.3 [facility] Comment on above: Result Comment: CUT- OFF POINTS HAVE BEEN ESTABLISHED BASED ON THE FOURTH UNIVERSAL DEFINITIONS OF MYOCARDIAL INFARCTION. THE UPPER REFERENCE LIMIT (URL) OF TROPONIN, DEFINED THE 99TH PERCENTILE OF cTnI DISTRIBUTION IN A REFERENCE POPULATION, HAS BEEN CONFIRMED THE DECISION THRESHOLD FOR CA DIAGNOSIS. Performed By: #### T 7, LIPID, TSH, CMADM, BNP, CMP #### [facility] [address] [place] [address] Dr. Rosemary Ames RADHA 26 ng/mL Normal 9-82 [facility] Comment on above: Performed By: #### T 7, LIPID, TSH, CMADM, BNP, CMP #### [facility] [address] [place] [address] Dr. Rosemary Ames CBC AUTO DIFFon 12-10-2021 BASO # 0.0 103/ul Normal 0.0-0.1 [facility] Comment on above: Performed By: #### E RUR #### [facility] [address] [place] [address] Dr. Rosemary Ames Basophils/100 WBC (Bld) 0.4 % Normal 0.2-2.0 [facility] Comment on above: Performed By: #### E RUR #### [facility] [address] [place] [address] Dr. Rosemary Ames EO # 0.1 103/ul Normal 0.0-0.7 [facility] Comment on above: Performed By: #### E RUR #### [facility] [address] [place] [address] Dr. Rosemary Ames Eosinophils/100 WBC (Bld) 1.0 % Normal 0.9-7.0 [facility] Comment on above: Performed By: #### E RUR #### [facility] [address] [place] [address] Dr. Rosemary Ames Erythrocyte distribution width (RBC) [Ratio] 13.7 % Normal 11.0-15.0 [facility] Comment on above: Performed By: #### E RUR #### [facility] [address] [place] [address] Dr. Rosemary Ames Hematocrit (Bld) [Volume fraction] 40.9 % Normal 36.0-48.0 [facility] Comment on above: Performed By: #### E RUR #### [facility] [address] [place] [address] Dr. Rosemary Ames Hemoglobin (Bld) [Mass/Vol] 13.0 g/dL Normal 12.0-16.0 [facility] Comment on above: Performed By: #### E RUR #### [facility] [address] [place] [address] Dr. Rosemary Ames IG # 0.03 10e3/ul Normal 0.00-0.03 [facility] Comment on above: Performed By: #### E RUR #### [facility] [address] [place] [address] Dr. Rosemary Ames IG % 0.4 % Normal 0.0-0.5 [facility] Comment on above: Performed By: #### E RUR #### [facility] [address] [place] [address] [address] Rosemary Ames LYMPH # 2.4 103/ul Normal 1.2-3.8 [facility] Comment on above: Performed By: #### E RUR #### [facility] [address] [place] [address] Dr. Rosemary Ames Lymphocytes/100 WBC (Bld) 30.3 % Normal 20.5-60.0 [facility] Comment on above: Performed By: #### E RUR #### [facility] [address] [place] [address] Dr. Rosemary Ames MANUAL DIFF REQ NO Normal [facility] Comment on above: Performed By: #### E RUR #### [facility] [address] [place] [address] Dr. Rosemary Ames MCH (RBC) [Entitic mass] 25.8 pg Critically low 26.7-34.0 [facility] Comment on above: Performed By: #### E RUR #### [facility] [address] [place] [address] Dr. Rosemary Ames MCHC (RBC) [Mass/Vol] 31.8 g/dL Normal 29.9-35.2 [facility] Comment on above: Performed By: #### E RUR #### [facility] [address] [place] [address] Dr. Rosemary Ames MCV (RBC) [Entitic vol] 81.2 fL Normal 81.0-99.0 [facility] Comment on above: Performed By: #### E RUR #### [facility] [address] [place] [address] Dr. Rosemary Ames MONO # 0.5 103/ul Normal 0.3-0.8 [facility] Comment on above: Performed By: #### E RUR #### [facility] [address] [place] [address] Dr. Rosemary Ames Monocytes/100 WBC (Bld) 6.1 % Normal 1.7-12.0 [facility] Comment on above: Performed By: #### E RUR #### [facility] [address] [place] [address] Dr. Rosemary Ames NEUT # 5.0 103/ul Normal 1.4-6.5 [facility] Comment on above: Performed By: #### E RUR #### [facility] [address] [place] [address] Dr. Rosemary Ames Neutrophils/100 WBC (Bld) 61.8 % Normal 43.0-75.0 [facility] Comment on above: Performed By: #### E RUR #### [facility] [address] [place] [address] Dr. Rosemary Ames Platelet mean volume (Bld) [Entitic vol] 9.9 fL Normal 9.5-13.5 [facility] Comment on above: Performed By: #### E RUR #### [facility] [address] [place] [address] Dr. Rosemary Ames PLT 284 103/ul Normal 150-450 [facility] Comment on above: Performed By: #### E RUR #### [facility] [address] [place] [address] Dr. Rosemary Ames RBC 5.04 106/ul Normal 4.20-5.40 [facility] Comment on above: Performed By: #### E RUR #### [facility] [address] [place] [address] Dr. Rosemary Ames WBC 8.0 103/ul Normal 4.0-11.0 [facility] Comment on above: Performed By: #### E RUR #### [facility] [address] [place] [address] Dr. Rosemary Ames FREE THYROXINE INDEX T7on FTI 2.31 Normal 1.30-4.50 [facility] Comment on above: Performed By: #### T 7, LIPID, TSH, CMADM, BNP, CMP #### [facility] [address] [place] [address] Dr. Rosemary Ames T3U 30.0 % Normal 30.0-39.0 [facility] Comment on above: Performed By: #### T 7, LIPID, TSH, CMADM, BNP, CMP #### [facility] [address] [address] [address] Rosemary Ames T4 [Mass/Vol] 7.70 ug/dL Normal 4.80-13.90 [facility] Comment on above: Performed By: #### T 7, LIPID, TSH, CMADM, BNP, CMP #### [facility] [address] [place] [address] Dr. Rosemary Ames GLYCOHEMOGLOBIN A1Con 2021 ADA RECOMMENDATION SEE BELOW Normal [facility] Comment on above: Result Comment: ADA RECOMMENDED LIMIT 4.0 - 6.0 ADA THERAPEUTIC TARGET < 7.0 ACTION SUGGESTED > 7.0 Performed By: #### A 1C #### [facility] [address] [place] [address] Dr. Rosemary Ames Glucose [Mass/Vol] 243 mg/dL Normal [facility] Comment on above: Performed By: #### A 1C #### [facility] [address] [place] [address] Dr. Rosemary Ames HbA1c (Bld) [Mass fraction] 10.1 % Critically high 4.5-6.2 [facility] Comment on above: Performed By: #### A 1C #### [facility] [address] [place] [address] Dr. Rosemary Ames IRONon 12-10-2021 Iron [Mass/Vol] 29.0 ug/dL Critically low 50.0-170.0 [facility] Comment on above: Performed By: #### A 1C #### [facility] [address] [place] [address] Dr. Rosemary Ames LIPID PROFILEon 12-10-2021 CHOL-HDL RATIO NORM SEE BELOW Normal [facility] Comment on above: Result Comment: 3.3 - 4.4 LOW RISK 4.4 - 7.1 AVERAGE RISK 7.1 - 11.0 MODERATE RISK >11.0 HIGH RISK Performed By: #### T 7, LIPID, TSH, CMADM, BNP, CMP #### [facility] [address] [place] [address] Dr. Rosemary Ames Cholesterol [Mass/Vol] 184 mg/dL Normal <=200 [facility] Comment on above: Performed By: #### T 7, LIPID, TSH, CMADM, BNP, CMP #### [facility] [address] [address] [address] Rosemary Ames Cholesterol in HDL [Mass/Vol] 44 mg/dL Normal 40-60 [facility] Comment on above: Performed By: #### T 7, LIPID, TSH, CMADM, BNP, CMP #### [facility] [address] [address] [address] Rosemary Ames Cholesterol in LDL [Mass/Vol] 94.6 mg/dL Normal [facility] Comment on above: Performed By: #### T 7, LIPID, TSH, CMADM, BNP, CMP #### [facility] [address] [address] [address] Rosemary Ames Cholesterol.total/Ch olesterol in HDL [Mass ratio] 4.2 {ratio} Normal [facility] Comment on above: Performed By: #### T 7, LIPID, TSH, CMADM, BNP, CMP #### [facility] [address] [address] [address] Rosemary Ames HDL NORMAL > or = 60 mg/dl - LO W CARDIOVASCULAR RISK <40 mg/dl - HIGH CARDIOVASCULAR RISK Normal [facility] Comment on above: Performed By: #### T 7, LIPID, TSH, CMADM, BNP, CMP #### [facility] [address] [address] [address] Rosemary Ames LDL CALC NORMAL SEE BELOW Normal [facility] Comment on above: Result Comment: <100 mg/dl OPTIMAL 100 - 129 mg/dl NEAR OR ABOVE OPTIMAL 130 - 159 mg/dl BORDERLINE HIGH 160 - 189 mg/dl HIGH >190 mg/dl VERY HIGH Performed By: #### T 7, LIPID, TSH, CMADM, BNP, CMP #### [facility] [address] [address] [address] Rosemary Ames Triglyceride [Mass/Vol] 227 mg/dL Critically high <=150 [facility] Comment on above: Performed By: #### T 7, LIPID, TSH, CMADM, BNP, CMP #### [facility] [address] [place] [address] Dr. Rosemary Ames VLDL CALC 45.4 mg/dL Normal [facility] Comment on above: Performed By: #### T 7, LIPID, TSH, CMADM, BNP, CMP #### [facility] [address] [place] [address] Dr. Rosemary Ames PROF 14(COMP METB)on 022 Albumin [Mass/Vol] 4.1 g/dL Normal 3.4-5.0 [facility] Comment on above: Performed By: #### T 7, LIPID, TSH, CMADM, BNP, CMP #### [facility] [address] [place] [address] Dr. Rosemary Ames Albumin/Globulin [Mass ratio] 1.1 {ratio} Normal [facility] Comment on above: Performed By: #### T 7, LIPID, TSH, CMADM, BNP, CMP #### [facility] [address] [place] [address] Dr. Rosemary Ames ALP [Catalytic activity/Vol] 83 U/L Normal 46-116 [facility] Comment on above: Performed By: #### T 7, LIPID, TSH, CMADM, BNP, CMP #### [facility] [address] [place] [address] Dr. Rosemary Ames ALT [Catalytic activity/Vol] 166 U/L Critically high 14-59 [facility] Comment on above: Performed By: #### T 7, LIPID, TSH, CMADM, BNP, CMP #### [facility] [address] [place] [address] Dr. Rosemary Ames Anion gap [Moles/Vol] 13.9 mmol/L Normal [facility] Comment on above: Performed By: #### T 7, LIPID, TSH, CMADM, BNP, CMP #### [facility] [address] [place] [address] Dr. Rosemary Ames AST [Catalytic activity/Vol] 97 U/L Critically high 15-37 [facility] Comment on above: Performed By: #### T 7, LIPID, TSH, CMADM, BNP, CMP #### [facility] [address] [address] [address] Rosemary Ames Bilirubin [Mass/Vol] 0.7 mg/dL Normal 0.2-1.0 [facility] Comment on above: Performed By: #### T 7, LIPID, TSH, CMADM, BNP, CMP #### [facility] [address] [address] [address] Rosemary Ames Calcium [Mass/Vol] 9.2 mg/dL Normal 8.5-10.1 [facility] Comment on above: Performed By: #### T 7, LIPID, TSH, CMADM, BNP, CMP #### [facility] [address] [place] [address] Dr. Rosemary Ames Chloride [Moles/Vol] 101 mmol/L Normal 98-107 [facility] Comment on above: Performed By: #### T 7, LIPID, TSH, CMADM, BNP, CMP #### [facility] [address] [address] [address] Rosemary Ames CO2 [Moles/Vol] 27.5 mmol/L Normal 21.0-32.0 [facility] Comment on above: Performed By: #### T 7, LIPID, TSH, CMADM, BNP, CMP #### [facility] [address] [place] [address] Dr. Rosemary Ames Creatinine [Mass/Vol] 0.65 mg/dL Normal 0.55-1.02 [facility] Comment on above: Performed By: #### T 7, LIPID, TSH, CMADM, BNP, CMP #### [facility] [address] [place] [address] Dr. Rosemary Ames EGFR-AF MARSHALLESE >60 Normal >=60 [facility] Comment on above: Performed By: #### T 7, LIPID, TSH, CMADM, BNP, CMP #### [facility] [address] [place] [address] Dr. Rosemary Ames EGFR-NON AF MARSHALLESE >60 Normal >=60 [facility] Comment on above: Performed By: #### T 7, LIPID, TSH, CMADM, BNP, CMP #### [facility] [address] [place] [address] Dr. Rosemary Ames Globulin (S) [Mass/Vol] 3.8 g/dL Normal [facility] Comment on above: Performed By: #### T 7, LIPID, TSH, CMADM, BNP, CMP #### [facility] [address] [place] [address] Dr. Rosemary Ames Glucose [Mass/Vol] 299 mg/dL Critically high 74-106 T [facility] Comment on above: Performed By: #### T 7, LIPID, TSH, CMADM, BNP, CMP #### [facility] [address] [place] [address] Dr. Rosemary Ames Potassium [Moles/Vol] 4.4 mmol/L Normal 3.5-5.1 [facility] Comment on above: Performed By: #### T 7, LIPID, TSH, CMADM, BNP, CMP #### [facility] [address] [place] [address] Dr. Rosemary Ames Protein [Mass/Vol] 7.9 g/dL Normal 6.4-8.2 [facility] Comment on above: Performed By: #### T 7, LIPID, TSH, CMADM, BNP, CMP #### [facility] [address] [place] [address] Dr. Rosemary Ames Sodium [Moles/Vol] 138 mmol/L Normal 136-145 [facility] Comment on above: Performed By: #### T 7, LIPID, TSH, CMADM, BNP, CMP #### [facility] [address] [place] [address] Dr. Rosemary Ames Urea nitrogen [Mass/Vol] 8.0 mg/dL Normal 7.0-18.0 [facility] Comment on above: Performed By: #### T 7, LIPID, TSH, CMADM, BNP, CMP #### [facility] [address] [place] [address] Dr. Rosemary Ames Urea nitrogen/Creatinine [Mass ratio] 12.3 mg/mg Normal [facility] Comment on above: Performed By: #### T 7, LIPID, TSH, CMADM, BNP, CMP #### [facility] [address] [place], [place] [address] Dr. Rosemary Ames TSHon 12-10-2021 TSH 0.921 uIU/mL Normal 0.358-3.740 [facility] Comment on above: Performed By: #### T 7, LIPID, TSH, CMADM, BNP, CMP #### [facility] [address] [id number] Rosemary Ames MG MAMM DIAGNOSTIC 3D JESICA CA Don 11-29-2021 MG MAMM DIAGNOSTIC 3D JESICA CAD Patient: TESS ASHLEY. Exam Date: 11/29/2021 : 1995 Gender:F Ordering : DR CHAMP BELL . Admission #: [id number] Family : Order #: [id number] CLICK HERE TO VIEW EXAM RADIOLOGY REPORT PROCEDURE: MAMMOGRAM DIAGNOSTIC 3D BILATERAL CAD, 11/29/2021, 09:21 ULTRASOUND BREAST RIGHT LIMITED, 11/29/2021, 09:17 COMPARISON: None. INDICATIONS: Lump in right breast Calculator Name NCI Breast Cancer Risk Assessment Tool 5 Year Breast Cancer Risk Not Applicable. Lifetime Breast Cancer Risk Not Applicable. Personal Breast Cancer No Personal Ovarian Cancer No Treatments None Family Cancers Aunt-maternal with breast cancer at age 42. LOCATION: [facility] BREAST COMPOSITION: Heterogeneously dense,which may obscure small masses. FINDINGS: DIAGNOSTIC CATEGORY 1--NEGATIVE. RIGHT BREAST: No significant suspicious finding. Ultrasound evaluation in area of concern demonstrates normal appearing fibroglandular tissue. LEFT BREAST: No significant suspicious finding. RECOMMENDATIONS: CLINICAL EVALUATION. PLEASE NOTE: A NORMAL MAMMOGRAM DOES NOT EXCLUDE THE POSSIBILITY OF BREAST CANCER. A CLINICALLY SUSPICIOUS PALPABLE LUMP SHOULD BE BIOPSIED. Dictated by: Alvarado Beatty M.D. on 11/29/2021 at 09:55 Approved by: Alvarado Beatty M.D. on 11/29/2021 at 09:59 Normal [facility] US BREAST RIGHT LIMITEDon US BREAST RIGHT LIMITED Patient: TESS ASHLEY. Exam Date: 11/29/2021 : 1995 Gender:F Ordering : DR CHAMP BELL . Admission #: [id number] Family : Order #: [id number] CLICK HERE TO VIEW EXAM RADIOLOGY REPORT PROCEDURE: MAMMOGRAM DIAGNOSTIC 3D BILATERAL CAD, 11/29/2021, 09:21 ULTRASOUND BREAST RIGHT LIMITED, 11/29/2021, 09:17 COMPARISON: None. INDICATIONS: Lump in right breast Calculator Name NCI Breast Cancer Risk Assessment Tool 5 Year Breast Cancer Risk Not Applicable. Lifetime Breast Cancer Risk Not Applicable. Personal Breast Cancer No Personal Ovarian Cancer No Treatments None Family Cancers Aunt-maternal with breast cancer at age 42. LOCATION: [facility] BREAST COMPOSITION: Heterogeneously dense,which may obscure small masses. FINDINGS: DIAGNOSTIC CATEGORY 1--NEGATIVE. RIGHT BREAST: No significant suspicious finding. Ultrasound evaluation in area of concern demonstrates normal appearing fibroglandular tissue. LEFT BREAST: No significant suspicious finding. RECOMMENDATIONS: CLINICAL EVALUATION. PLEASE NOTE: A NORMAL MAMMOGRAM DOES NOT EXCLUDE THE POSSIBILITY OF BREAST CANCER. A CLINICALLY SUSPICIOUS PALPABLE LUMP SHOULD BE BIOPSIED. Dictated by: Alvarado Beatty M.D. on 11/29/2021 at 09:55 Approved by: Alvarado Beatty M.D. on 11/29/2021 at 09:59 Normal [facility] MRI BRAIN WO CONon MRI BRAIN WO CON EXAMINATION: MRI BRAIN WO CON, 09/12/2021 1:28 PM EDT HISTORY: Syncope and collapse ; persistent dizziness COMPARISON: None. TECHNIQUE: MRI of the brain was performed without IV contrast. FINDINGS: CEREBRUM: No edema, hemorrhage, mass, acute infarction, or inappropriate atrophy. Incidental cavum septum pellucidum and cavum vergae (normal variant). CEREBELLUM: No edema, hemorrhage, mass, acute infarction, or inappropriate atrophy. BRAINSTEM: No edema, hemorrhage, mass, acute infarction, or inappropriate atrophy. CSF SPACES: Ventricles, cisterns, and sulci are appropriate for age. No hydrocephalus, subarachnoid hemorrhage, or mass. SKULL: No mass or other significant visible lesion. SINUSES: Limited views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 and side effects. Options may include: ? Pain relievers such as acetaminophen, ibuprofen, and naproxen ? Some medication that are also used for depression or seizures ? Physical therapy and exercise ? Cognitive behavioral therapy, a psychological, goal-directed approach, in which patients learn how to modify physical, behavioral, and emotional triggers of pain and stress. IF YOU ARE PRESCRIBED OPIOIDS FOR PAIN: ? Never take opioids in greater amounts or more often than prescribed. ? Follow up with your primary health care provider. o Work together to create a plan on how to manage your pain. o Talk about ways to help manage your pain that don?t involve prescription opioids. o Talk about any and all concerns and side effects. ? Help prevent misuse and abuse o Never sell or share prescription opioids. o Never use another person?s prescription opioids. ? Store prescription opioids in a secure place and out of reach of others (this may include visitors, children, friends, and family). ? Safely dispose of unused prescription opioids: Find your community drug take-back program or your pharmacy mail-back program, or flush them down the toilet, following guidance from the Food and Drug Administration (www.fda.gov/Drugs/Re sourcesForYou). ? Visit www.cdc.gov/drugoverd ose to learn about the risks of opioids abuse and overdose. ? If you believe you may be struggling with addiction, tell your health customer care associate and ask for guidance or call [facility]?S National Helpline at 3-842-738-GHHZ. (more content not included)... Normal [facility] EMS Documentationon 08-26-19 22 EMS Documentation [id number] 1.00CD:127 Normal [facility] RAD - Preliminary Cat Scan R eporton 08-25-2021 RAD - Preliminary Cat Scan Report [id number] .00CD:127 [facility] RAD - Preliminary Cat Scan Report [id number] .[id number]:127 Normal [facility] SEROLOGYOrdered By: Fabian echeverria on 08-24-2021 Beta hCG Ql Negative (08/24/21 11:29 PM) [place] [facility] [place] XR KNEE LT 4V or >on 022 XR KNEE LT 4V or > EXAM: XR KNEE LT 4V or > HISTORY: Pain in left knee COMPARISON: None. TECHNIQUE: Frontal, lateral, tunnel, and sunrise views of the left knee. FINDINGS: Mineralization: Within normal limits. Bones: No acute fractures or dislocations. Joints: Normal joint spacing. No effusion. Soft Tissues: Unremarkable. IMPRESSION: No acute osseous abnormality. Electronically authenticated by: SYLVESTER PRINGLE Date: 2021-08-15 16:18 Normal [facility] US KIDNEYS BLADDERon 022 US KIDNEYS BLADDER EXAMINATION: US KIDNEYS BLADDER HISTORY: H/O: urinary disease COMPARISON: No relevant comparison available. TECHNIQUE: Ultrasound examination was performed of the bladder. FINDINGS: Right Kidney: Normal in size, contour and echotexture. Mild pelviectasis. No solid cortical mass or obstructing nephrolithiasis. The cortex measures 1.8 cm thick. Height: 6.7 cm Length: 11.0 cm Width: 6.2 cm Left Kidney: Normal in size, contour and echotexture. Mild pelviectasis. No solid cortical mass or obstructing nephrolithiasis. The cortex measures 1.9 cm thick Height: 5.8 cm Length: 11.3 cm Width: 5.9 cm Prevoid urinary bladder: 314 mL. Post void urinary bladder: 1 mL The urinary bladder wall is normal in appearance. Ureteral jets noted bilaterally. IMPRESSION: No acute abnormality Electronically authenticated by: MAY PILLAI Date: 2021-06-13 10:16 Normal [facility] Testosterone Free and Total by LC-MS/MSon 02-04-2021 Sex Hormone Binding Globulin 11 nmol/L Low 30-135 [facility] Comment on above: Result Comment: REFE RENCE INTERVAL: Sex Hormone Binding Globulin Access complete set of age- and/or gender-specific reference intervals for this test in the [facility] Test Directory ([employer]). Testosterone, Free LC-MS/MS 9.1 pg/mL Critically high 0.8-7.4 [facility] Comment on above: Result Comment: To c onvert to pmol/L, multiply pg/mL by 3.47 The concentration of Free Testosterone is derived from a mathematical expression based on the constant for the binding of testosterone to sex hormone binding globulin. Testosterone, Free LC-MS/MS Reference Interval for Females 18 years and older Postmenopausal: 0.6 - 3.8 pg/mL REFERENCE INTERVAL: Testosterone, Free LC-MS/MS Access complete set of age- and/or gender-specific reference intervals for this test in the [facility] Test Directory ([employer]). This test was developed and its performance characteristics determined by [facility]. It has not been cleared or approved by the [place] Food and Drug Administration. This test was performed in a CLIA certified laboratory and is intended for clinical purposes. Performed By: [facility] [address] [place] [id number] Security Control Room Officer: Kiersten Jones MD Testosterone, LC-MS/MS 35 ng/dL Normal 9-55 [facility] Comment on above: Result Comment: Oscar rutherford Testosterone, Females 18 years and older Premenopausal 9-55 ng/dL Postmenopausal 5-32 ng/dL REFERENCE INTERVAL: Testosterone, LC-MS/MS Access complete set of age- and/or gender-specific reference intervals for this test in the [facility] Test Directory ([employer]). This test was developed and its performance characteristics determined by [facility]. It has not been cleared or approved by the US Food and Drug Administration. This test was performed in a CLIA certified laboratory and is intended for clinical purposes. Cortisol Daljit 01-31-2021 Cortisol AM 11.0 ug/dL Normal [facility]2-19.[facility] Comment on above: Performed By: #### C AKSHAT #### [facility] [address] [place] [id number] Vital Signs Date Time Vital Sign Value Performing Clinician Facility 08-27-2021 11:09-0400 Body height 152.4 cm Gregorio Floyd MD Work Phone: [facility] 08-27-2021 11:09-0400 Body mass index (BMI) [Ratio] 46.68 kg/m2 Gregorio Floyd MD Work Phone: [facility] 08-27-2021 11:09-0400 Body weight 108.41 kg Gregorio Floyd MD Work Phone: [facility] 08-27-2021 11:09-0400 Diastolic blood pressure 86 mm[Hg] Gregorio Floyd MD Work Phone: [facility] 08-27-2021 11:09-0400 Heart rate 97 /min Gregorio Floyd MD Work Phone: [facility] 08-27-2021 11:09-0400 Systolic blood pressure 125 mm[Hg] Gregorio Floyd MD Work Phone: [facility] 08-25-2021 14:00-0400 Diastolic blood pressure 81 mm[Hg] Tyler Melina [facility] 08-25-2021 14:00-0400 Heart rate 85 /min Tyler Melina [facility] 08-25-2021 14:00-0400 Mean blood pressure 100 mm[Hg] Tyler Melina [facility] 08-25-2021 14:00-0400 Respiratory rate 16 /min Tyler Melina [facility] 08-25-2021 14:00-0400 SaO2% (BldA) [Mass fraction] 98 % Tyler Melina [facility] 08-25-2021 14:00-0400 Systolic blood pressure 138 mm[Hg] Tyler Melina [facility] 08-25-2021 01:00-0400 Diastolic blood pressure 85 mm[Hg] Tyler Melina [facility] 08-25-2021 01:00-0400 Heart rate 87 /min Tyler Melina [facility] 08-25-2021 01:00-0400 Respiratory rate 16 /min Tyler Melina [facility] 08-25-2021 01:00-0400 SaO2% (BldA) [Mass fraction] 98 % Tyler Melina [facility] 08-25-2021 01:00-0400 Systolic blood pressure 140 mm[Hg] Tyler Melina [facility] 08-25-2021 00:00-0400 Diastolic blood pressure 89 mm[Hg] Tyler Melina [facility] 08-25-2021 00:00-0400 Heart rate 95 /min Tyler Summers [facility] 08-25-2021 00:00-0400 SaO2% (BldA) [Mass fraction] 97 % Tyler Melina [facility] 08-25-2021 00:00-0400 Systolic blood pressure 149 mm[Hg] Tyler Summers [facility] 08-24-2021 22:50-0400 Body temperature 100.22 [degF] [facility] Melina [facility] Encounters Encounter Date Encounter Type Care Provider Facility Start: 05-31-2022 End: 05-31-2022 ambulatory CRYSTAL PENG Facility:[facility] Start: 05-14-[address] CHAMP BELL . Facili ty:[facility] Start: 05-01-[address] CHAMP BELL . Facili ty:[facility] Start: 04-23-2022 End: 04-24-[address] CHAMP BELL . Facility:[facility] Start: 04-15-[address] CHAMP BELL . Facili ty:[facility] Start: 04-10-2022 End: 04-11-[address] CHAMP BELL . Facility:[facility] Start: 03-13-2022 End: 03-13-2022 ambulatory MARINA ALBA . Facility:[facility] Start: 12-10-2021 End: 12-11-[address] CHAMP BELL . Facility:[facility] Start: 11-29-2021 End: 11-30-[address] CHAMP BELL . Facility:[facility] Start: 11-08-[address] CHAMP BELL . Facili ty:[facility] Start: 09-12-2021 End: 09-13-[address] CHAMP BELL . Facility:[facility] Start: 08-27-2021 End: 08-27-2021 ambulatory CHAMP BELL [facility] Start: 08-27-2021 End: 08-27-2021 Office outpatient new 60 minutes Champ Bell MD Work Phone: [facility] Comment on above: Type 2 diabetes naz itus with hyperglycemia, unspecified whether halfway insulin use (HCC) (Primary Dx); Thyroid disorder; Hair loss Start: 08-24-2021 End: 08-25-2021 Emergency department patient visit Tyler SKristi Summers [facility] Start: 08-15-2021 End: 08-15-2021 ambulatory GREGORY FAN . Facility:[facility] Start: 06-13-2021 End: 06-14-[address] CHAMP BELL . Facility:[facility] Start: 05-04-2021 Transcribe Orders Champ Bell MD Work Phone: [facility] Comment on above: Thyroid disorder (Pr imary Dx); Hair loss Procedures Date Procedure Procedure Detail Performing Clinician Start: 08-27-2021 End: 08-27-2021 Gluc bld gluc mntr dev cleared fda spec home use Gregorio Floyd MD Work Phone: None (qualifier value) Tyler Melina Plan of Treatment Date Care Activity Detail Author Start: 11-27-2021 End: 11-27-2021 Patient encounter procedure 11/27/2021 Office Visit Endocrinology Gregorio Floyd MD [address] [place] [address] [facility] Start: 11-27-2021 Hemoglobin A1c measurement A1C [facility] Start: 11-08-2021 Influenza vaccination Sequenti al Influenza Vaccine (Season Ended) [facility] Start: 06-25-2021 End: 06-25-2021 Patient encounter procedure 06/25/2021 Office Visit Endocrinology Gregorio Floyd MD [address] [place] [address] [facility] Start: 11-08-2020 Influenza vaccination Sequenti al Influenza Vaccine (#1) [facility] Start: 2012 Hepatitis C screening Hepatitis C Sc reening [facility] Start: 2009 HIV screening HIV Screening [facility] Start: 2006 Depression screening using PHQ-9 (Patient Health Questionnaire 9) score Depression Screening (PHQ-2/9) [facility] Start: 2004 Diabetic foot examination Foot Exam [facility] Start: 2004 Microalbumin measurement, urine, quantitative Urine Microalbumin [facility] Start: 2004 Ophthalmic examinati on and evaluation Ophthalmology Exam [facility] Start: 2000 Pneumococcal Vaccine : Ped or At-Risk (1 - PCV) Pneumococcal Vaccine: Ped or At-Risk (1 - PCV) [facility] Start: 11-14-1999 COVID-19 Vaccine (#1) COVID-19 Vacci ne (#1) [facility] Start: 11-14-1999 COVID-19 Vaccine (1) COVID-19 Vaccin e (1) [facility] Start: 1997 History and physical examination, annual for health maintenance Wellness Visit [facility] Start: 1994 Screening for malign ant neoplasm of cervix Pap Smear [facility] Start: 1994 Tetanus vaccination Tetanus: Every 1 0yrs [facility] End: 08-27-2022 C peptide [Mass/volume] in Serum or Plasma C-peptide Lab Routine Type 2 diabetes mellitus with hyperglycemia, unspecified whether human resources officer insulin use (HCC) 1 Occurrences starting 08/27/2021 until 08/27/2022 [facility] Comment on above: 1 Occurrences starti ng 08/27/2021 until 08/27/2022 End: 08-27-2022 Glucose [Mass/volume] in Serum or Plasma Glucose Lab Routine Type 2 diabetes mellitus with hyperglycemia, unspecified whether human resources officer insulin use (HCC) 1 Occurrences starting 08/27/2021 until 08/27/2022 [facility] Comment on above: 1 Occurrences starti ng 08/27/2021 until 08/27/2022 Hepatic function 200 0 panel - Serum or Plasma Hepatic function panel Lab Routine Type 2 diabetes mellitus with hyperglycemia, unspecified whether halfway insulin use (HCC) Ordered: 08/27/2021 [facility] Comment on above: Ordered: 08/27/2021 End: 08-27-2022 Islet cell antibody measurement Anti-Islet Cell ([id number]) Antibody Lab Routine Type 2 diabetes mellitus with hyperglycemia, unspecified whether human resources officer insulin use (HCC) 1 Occurrences starting 08/27/2021 until 08/27/2022 [facility] Comment on above: 1 Occurrences starti ng 08/27/2021 until 08/27/2022 End: 08-27-2022 Lipid 1996 panel - Serum or Plasma Lipid Panel Lab Routine Type 2 diabetes mellitus with hyperglycemia, unspecified whether halfway insulin use (HCC) 1 Occurrences starting 08/27/2021 until 08/27/2022 [facility] Comment on above: 1 Occurrences starti ng 08/27/2021 until 08/27/2022 Microalbumin measurement, urine, quantitative Microalbumin/Creatinine Ratio, UR Random Lab Routine Type 2 diabetes mellitus with hyperglycemia, unspecified whether human resources officer insulin use (HCC) Ordered: 08/27/2021 [facility] [facility] Work Phone: Comment on above: Ordered: 08/27/2021 Payers Date Payer Category Payer Medicaid [employer] [facility] [id number] 2019-Present [phone] [address] [place] [address] [id number] 1994 Unknown [id number] 1994 Unknown [id number] 1994 Unknown [id number] 1994 Unknown [id number] [id number] 1994 Unknown [id number] [id number] 1994 Unknown [id number] 2.16.840.1.908799.3.579.2.593 1994 Unknown [id number] [id number] 1994 Unknown [id number] [id number] 1994 Unknown [id number] [id number] 1994 Unknown [id number] [id number] 1994 Unknown [id number] [id number] 1994 Unknown [id number] [id number] 1994 Unknown [id number] [id number] 1994 Unknown [id number] 1960 Medicaid [id number] 1959 Unknown [id number] 1959 Unknown [id number] 1959 Unknown [id number] Social History Date Type Detail Facility Tobacco smoking status [facility] Tobacco smoking consumption unknown [facility] Start: 1995 Sex Assigned At Not on file [facility] Start: 08-24-2021 Tobacco smoking status Never [facility] Sex Assigned At Female [facility] Start: 08-17-2021 End: 08-27-2021 Exposure to SARS-CoV-2 (event) Not sure [facility] Functional Status Date Assessment Result Facility 08-24-2021 Functional Status N/A [facility] Instructions 08-27-2021 Patient Instructions Note Date & Type Note Facility 08-27-2021 Instructions Gregorio Floyd MD - 08/27/2021 12:20 PM EDT Increase the dose of metformin gradually as below if no side effects (diarrhea, stomach upset) Week 1: take metformin 500 mg (1 pill) with breakfast and 1000 mg (2 pills) with dinner. Week 2: take metformin 1000 mg (2 pills) twice daily with breakfast and dinner. (Taking metformin with meals decreases the risk of developing side effects like diarrhea) (If you develop side effects, cut down the dose to the last maximum tolerated dose) After 2 weeks of being on the maximum dose of metformin with no side effects, increase Trulicity dose to 1.5 mg weekly (please contact me before you run out of the medicine to prescribe the higher dose). Check your blood sugar twice daily as follows: rotate them between time between before the different meals and bedtime. Contact us if your blood sugar is getting above 200 mg/dl persistently. Try to check your blood pressure every now and then at home and keep a log of your reads to review with your doctor. Please have your urine and blood tests done. I'm also repeating your liver functions tests; if came back high, please discuss them with your doctor. Please hold levothyroxine for now. documented in this encounter [facility] History of Present illness Narrative 08-27-2021 Gregorio Floyd MD - 08/27/2021 11:00 AM EDT Note Date & Type Note Facility 08-27-2021 History of Presen t illness Narrative Formatting of this note is different fro m the original. Images from the original note were not included. Reason for visit/chief complaint: thyroid disorder and DM Date: 08/27/2021 Referring Provider: Champ Bell MD Primary Care Provider: Champ Bell MD HPI: Ms. Ashley is a 25 y.o. female with hx of DM, depression, anxiety, gastric ulcer, migraine. DM type: T2DM Duration/since: 2017 (age 20) At time of diagnosis, patient was obese, she didn't lose weight at the time of diagnosis, never diagnosed with DKA Hx of autoimmune diseases: no Family hx of DM: mother (T1D, age 25-26), father (age 45, T2DM), MGM (T2DM), she has 3 siblings; only 1 of them has T2DM (age 32-33). Prior to this visit, DM was managed by PCP, and Dr. Monique (endocrinology); last seen about a year ago. Current diabetes medications: -Metformin 500 mg bid not with meals -Jardiance 25 mg daily (had yeast infection in vulva 2-3 months ago; had 2-3 over the last year; same frequency after Jardiance was started) -Trulicity 0.75 mg weekly; no nausea/vomiting -Pioglitazone 15 mg daily She has been on same medications at same doses for 6 months. Work: none Specific diet/exercise patterns: eats 3 meals a day mostly, no snacks, doesn't think she eats a lot of carbs,she mows her lawn daily. Glucose checks: -Frequency: 1 time daily -Trends: around noon/before lunch; mostly 180-200 -Hypoglycemia: no, awareness: yes, BG threshold: 80 Lab Results Component Value Date HGBA1C 7.7 (A) 08/27/2021 Ms. Ashley endorses increased thirst, polyuria, and blurry vision. Weight has been stable. Complications/comorbidities: -Retinopathy: no, last dilated eye exam: 01/2021 -Home BP: no checks -Nephropathy: no No results found for: EGFR, MICALBCREAT -Neuropathy: no, does not follow up with podiatry, no feet ulcers/wounds -Prior CV events: no, on rosuvastatin 10 mg (6 months), no aspirin No results found for: LDLCALC -Smoking status: never Diabetes medications tried before/other possible contraindications for DM medications: -Lantus -Used Omnipod along with Dexcom before but she didn't get refills after stopping seeing endocrinology. -Glimepiride; nausea Had 2-3 over the last year; same frequency after Jardiance was started, no frequent UTIs. No renal impairment, alcoholism, CHF, decompensated liver disease, persistent nausea/vomiting, personal/family hx of medullary thyroid cancer, hx of pancreatitis, GB/biliary disease, recurrent UTI/fungal vulvovaginitis, postural hypotension, PVD, or osteoporosis. Vaccines: didn't receive the flu vaccine for this season, COVID vaccine , or pneumococcal vaccine. She endorses palpitations, hair loss and inability to lose weight for about 1-1.5 year. Chart review shows normal TSH and T4 from 01/2021 but high TPO-Abs. She was started by her PCP on LT4 25 mcg daily ?reason. No biotin, steroids or hx of Li use. Review of Systems: as per HPI/subjective/interval history, otherwise negative Medical History: Past Medical History: Diagnosis Date Anxiety Depression Surgical History: History reviewed. No pertinent surgical history. Family History: Family History Problem Relation Age of Onset Hypertension Mother Heart disease Mother Diabetes Mother Hypertension Father Heart disease Father Diabetes Father COPD Father Social History: Social History Socioeconomic History Marital status: Allergies: No Known Allergies Current Medications: Current Outpatient Medications Medication Sig Dispense Refill cetirizine (ZYRTEC) 10 MG tablet Take 10 mg by mouth daily . desvenlafaxine succinate (PRISTIQ) 100 MG 24 hr tablet Take 100 mg by mouth daily . Jardiance 25 mg Tab Take 1 tablet by mouth daily . lamoTRIgine (LAMICTAL) 100 MG tablet Take 100 mg by mouth 2 (two) times a day . levothyroxine (SYNTHROID, LEVOTHROID) 25 MCG tablet Take 25 mcg by mouth once daily . pantoprazole (PROTONIX) 40 MG tablet Take 40 mg by mouth daily . pioglitazone (ACTOS) 15 MG tablet Take 15 mg by mouth daily . rosuvastatin (CRESTOR) 10 MG tablet Take 10 mg by mouth daily . spironolactone (ALDACTONE) 50 MG tablet Take 50 mg by mouth 2 (two) times a day . Trulicity 0.75 mg/0.5 mL Pen INJECT 1 PEN SUBCUTANEOUSLY ONCE A WEEK metFORMIN (GLUCOPHAGE-XR) 500 MG 24 hr tablet Take 2 (two) tablets (1,000 mg total) by mouth 2 (two) times a day with meals Increase dose gradually as instructed. . 120 tablet 11 No current facility-administered medications for this visit. Physical Exam: Vitals: BP 125/86 Pulse 97 Ht 5' Wt 108.4 kg (239 lb) BMI 46.68 kg/m , Body mass index is 46.68 kg/m ., Wt Readings from Last 3 Encounters: 08/27/21 108.4 kg (239 lb) General/Constitutional: , well-developed and in no distress. Head: atrautmatic, no facial lesions observed Eyes: no lid retraction (stare), no proptosis Neck: supple, normal range of motion. no thyromegaly present, no pain Cardiovascular: normal rate, regular rhythm, normal heart sounds and intact distal pulses, no edema. Pulmonary/Chest: effort normal and breath sounds normal, no respiratory distress Abdominal: soft, no tenderness Musculoskeletal: nomal range of motion, normal muscle mass and strength Neurological: alert and oriented, no focal deficits, no tremors, DTRs normal, sensation intact to a 10 gram monofilament below the ankles Skin: warm and moist, no rash noted, there is acanthosis nigricans, no ulcers or lesions on the feet and nails are intact, but there are calluses, there are thin light colored striae on abdomen. Psychiatric: appropriate affect Lab/Imaging Data: No results found for: WBC, HGB, HCT, MCV, PLT No results found for: GLUCOSE, NA, K, CL, BUN, CREATININE No results found for: ALT, AST, GGT, ALKPHOS, BILITOT No results found for: TSH, [id number], THYROIDAB No results found for: PTH, CALCIUM, JACQUES, PHOS Lab Results Component Value Date HGBA1C 7.7 (A) 08/27/2021 No results found for: LDLCALC, CHOL, HDL, TRIG, CHOLHDL No results found for: MICALBCREAT, [id number] No results found for: CPEPTIDE Assessment and plan: Ms. Ashley is a 25 y.o. female with T2DM. HbA1c goal 7% At goal? no Lab Results Component Value Date HGBA1C 7.7 (A) 08/27/2021 Assessment of glycemic status Bgs endorsed and A1c reflect suboptimal but not very bad control. Recommended testing frequency 2 times daily Changes recommended -Increase metformin dose (ER) gradually to 1000 mg bid with meals. -Then, increase Trulicity to 1.5 mg weekly. -Keep Jardiance (no change in frequency of yeast infections per patient) and pioglitazone (?fatty liver) for now. -Body habitus and acanthosis nigricans indicate T2DM, but will get [id number] and c-peptide/glucose given the young age of diagnosis. May consider MAXI screening. -Will re-check her LFTs; if abnormal, she needs to follow up on that with her PCP/GI. Retinopathy Due for dilated exam no 01/2023 HTN At goal? no Yes, optimal <130/80; counseled on checking it at home every now and then. Nephropathy Next microalb due Next Cr/GFR due SIMON inh/ARB indicated? no Now; ordered 01/2022 no Neuropathy Due for foot exam no 08/2021; to curriculum counselor on foot care next visit CV risk/Lipids ACC 10 yr ASCVD risk Due for repeat lipid panel Statin indicated? Aspirin 81 mg indicated? Not calculated given age Now; ordered Already taking statins ?indicated no Thyroid functions/other tests No results found for: TSH TSH and T4 were normal in 01/2021, not sure why LT4 was started. I asked her to hold LT4; will repeat TFTs next visit. Vaccines Recommend annual flu, COVID, HBV vaccines, and tetanus vaccine every 10 years, if not up to date. Return in about 3 months (around 11/27/2021) for DM, thyroid f/u. Time spent reviewing chart, during the encounter, putting orders and coordinating care on the encounter day is 72 minutes. Gregorio Floyd MD Endocrinology documented in this encounter [facility] Discharge instructions 08-25-2021 Note Date & Type Note Facility 08-25-2021 Hospital Discharg e instructions Patient Education 08/25/2021 02:09:26 Head Injury, Adult Head Injury, Adult There are many types of head injuries. Head injuries can be as minor as a bump, or they can be a serious medical issue. More severe head injuries include: A jarring injury to the brain (concussion). A bruise (contusion) of the brain. This means there is bleeding in the brain that can cause swelling. A cracked skull (skull fracture). Bleeding in the brain that collects, clots, and forms a bump (hematoma). After a head injury, most problems occur within the first 24 hours, but side effects may occur up to 7 10 days after the injury. It is important to watch your condition for any changes. You may need to be observed in the emergency department or urgent care, or you may be admitted to the hospital. What are the causes? There are many possible causes of a head injury. A serious head injury may be caused by a car accident, bicycle or motorcycle accidents, sports injuries, and falls. What are the symptoms? Symptoms of a head injury include a contusion, bump, or bleeding at the site of the injury. Other physical symptoms may include: Headache. Nausea or vomiting. Dizziness. Feeling tired. Being uncomfortable around bright lights or loud noises. Seizures. Trouble being awakened. Fainting. Mental or emotional symptoms may include: Irritability. Confusion and memory problems. Poor attention and concentration. Changes in eating or sleeping habits. Anxiety or depression. How is this diagnosed? This condition can usually be diagnosed based on your symptoms, a description of the injury, and a physical exam. You may also have imaging tests done, such as a CT scan or MRI. How is this treated? Treatment for this condition depends on the severity and type of injury you have. The main goal of treatment is to prevent complications and to allow the brain time to heal. Mild head injury If you have a mild head injury, you may be sent home and treatment may include: Observation. A responsible adult should stay with you for 24 hours after your injury and check on you often. Physical rest. Brain rest. Pain medicines. Severe head injury If you have a severe head injury, treatment may include: Close observation. This includes hospitalization with frequent physical exams. Medicines to relieve pain, prevent seizures, and decrease brain swelling. Breathing support. This may include using a ventilator. Treatments to manage the swelling inside the brain. Brain surgery. This may be needed to: ?Remove a blood clot. ?Stop the bleeding. ?Remove a part of the skull to allow room for the brain to swell. Follow these instructions at home: Activity Rest and avoid activities that are physically hard or tiring. Make sure you get enough sleep. Limit activities that require a lot of thought or attention, such as: ?Watching TV. ?Playing memory games and puzzles. ?Job-related work or homework. ?Working on the computer, using social media, and texting. Avoid activities that could cause another head injury, such as playing sports, until your health care provider approves. Having another head injury, especially before the first one has healed, can be dangerous. Ask your health care provider when it is safe for you to return to your regular activities, including work or school. Ask your health care provider for a riiu-[id number] plan for gradually returning to activities. Ask your health care provider when you can drive, ride a bicycle, or use heavy machinery. Your ability to react may be slower after a brain injury. Do not do these activities if you are dizzy. Lifestyle Do not drink alcohol until your health care provider approves. Do not use drugs. Alcohol and certain drugs may slow your recovery and can put you at risk of further injury. If it is harder than usual to remember things, write them down. If you are easily distracted, try to do one thing at a time. Talk with family members or close friends when making important decisions. Tell your friends, family, a trusted colleague, and student worker about your injury, symptoms, and restrictions. Have them watch for any new or worsening problems. General instructions Take opda-rct-tmdsqux and prescription medicines only as told by your health care provider. Have someone stay with you for 24 hours after your head injury. This person should watch you for any changes in your symptoms and be ready to seek medical help. Keep all follow-up visits as told by your health care provider. This is important. How is this prevented? Work on improving your balance and strength to avoid falls. Wear a seatbelt when you are in a moving vehicle. Wear a helmet when riding a bicycle, skiing, or doing any other sport or activity that has a risk of injury. If you drink alcohol: ?Limit how much you use to: ?0 1 drink a day for women. ?0 2 drinks a day for men. ?Be aware of how much alcohol is in your drink. In the [place] one drink equals one 12 oz bottle of beer (355 mL), one 5 oz glass of wine (148 mL), or one 1 oz glass of hard liquor (44 mL). Take safety measures in your home, such as: ?Removing clutter and tripping hazards from floors and stairways. ?Using grab bars in bathrooms and handrails by stairs. ?Placing non-slip mats on floors and in bathtubs. ?Improving lighting in dim areas. Get help right away if: You have: ?A severe headache that is not helped by medicine. ?Trouble walking or weakness in your arms and legs. ?Clear or bloody fluid coming from your nose or ears. ?Changes in your vision. ?A seizure. You lose your balance. You vomit. Your pupils change size. Your speech is slurred. Your dizziness gets worse. You faint. You are sleepier than normal and have trouble staying awake. Your symptoms get worse. These symptoms may represent a serious problem that is an emergency. Do not wait to see if the symptoms will go away. Get medical help right away. Call your local emergency services (911 in the [place] Do not drive yourself to the hospital. Summary Head injuries can be minor or they can be a serious medical issue requiring immediate attention. Treatment for this condition depends on the severity and type of injury you have. Ask your health care provider when it is safe for you to return to your regular activities, including work or school. Head injury prevention includes wearing a seat belt in a motor vehicle, using a helmet on a bicycle, limiting alcohol use, and taking safety measures in your home. This information is not intended to replace advice given to you by your health care provider. Make sure you discuss any questions you have with your health care provider. Document Released: 02/24/2006 Document Revised: 03/24/2019 Document Reviewed: 03/19/2019 [employer] Patient Education 2020 [employer]. 08/25/2021 02:09:26 Cervical Sprain Cervical Sprain A cervical sprain is a stretch or tear in one or more of the tough, cord-like tissues that connect bones (ligaments) in the neck. Cervical sprains can range from mild to severe. Severe cervical sprains can cause the spinal bones (vertebrae) in the neck to be unstable. This can lead to spinal cord damage and can result in serious nervous system problems. The amount of time that it takes for a cervical sprain to get better depends on the cause and extent of the injury. Most cervical sprains heal in 4 6 weeks. What are the causes? Cervical sprains may be caused by an injury (trauma), such as from a motor vehicle accident, a fall, or sudden forward and backward whipping movement of the head and neck (whiplash injury). Mild cervical sprains may be caused by wear and tear over time, such as from poor posture, sitting in a chair that does not provide support, or looking up or down for long periods of time. What increases the risk? The following factors may make you more likely to develop this condition: Participating in activities that have a high risk of trauma to the neck. These include contact sports, auto racing, gymnastics, and diving. Taking risks when driving or riding in a motor vehicle, such as speeding. Having osteoarthritis of the spine. Having poor strength and flexibility of the neck. A previous neck injury. Having poor posture. Spending a lot of time in certain positions that put stress on the neck, such as sitting at a computer for long periods of time. What are the signs or symptoms? Symptoms of this condition include: Pain, soreness, stiffness, tenderness, swelling, or a burning sensation in the front, back, or sides of the neck. Sudden tightening of neck muscles that you cannot control (muscle spasms). Pain in the shoulders or upper back. Limited ability to move the neck. Headache. Dizziness. Nausea. Vomiting. Weakness, numbness, or tingling in a hand or an arm. Symptoms may develop right away after injury, or they may develop over a few days. In some cases, symptoms may go away with treatment and return (recur) over time. How is this diagnosed? This condition may be diagnosed based on: Your medical history. Your symptoms. Any recent injuries or known neck problems that you have, such as arthritis in the neck. A physical exam. Imaging tests, such as: ?X-rays. ?MRI. ?CT scan. How is this treated? This condition is treated by resting and icing the injured area and doing physical therapy exercises. Depending on the severity of your condition, treatment may also include: Keeping your neck in place (immobilized) for periods of time. This may be done using: ?A cervical collar. This supports your chin and the back of your head. ?A cervical traction device. This is a sling that holds up your head. This removes weight and pressure from your neck, and it may help to relieve pain. Medicines that help to relieve pain and inflammation. Medicines that help to relax your muscles (muscle relaxants). Surgery. This is rare. Follow these instructions at home: If you have a cervical collar: Wear it as told by your health care provider. Do not remove the collar unless instructed by your health care provider. Ask your health care provider before you make any adjustments to your collar. If you have long hair, keep it outside of the collar. Ask your health care provider if you can remove the collar for cleaning and bathing. If you are allowed to remove the collar for cleaning or bathing: ?Follow instructions from your health care provider about how to remove the collar safely. ?Clean the collar by wiping it with mild soap and water and drying it completely. ?If your collar has removable pads, remove them every 1 2 days and wash them by hand with soap and water. Let them air-dry completely before you put them back in the collar. ?Check your skin under the collar for irritation or sores. If you see any, tell your health care provider. Managing pain, stiffness, and swelling If directed, use a cervical traction device as told by your health care provider. If directed, apply heat to the affected area before you do your physical therapy or as often as told by your health care provider. Use the heat source that your health care provider recommends, such as a moist heat pack or a heating pad. ?Place a towel between your skin and the heat source. ?Leave the heat on for 20 30 minutes. ?Remove the heat if your skin turns bright red. This is especially important if you are unable to feel pain, heat, or cold. You may have a greater risk of getting burned. If directed, put ice on the affected area: ?Put ice in a plastic bag. ?Place a towel between your skin and the bag. ?Leave the ice on for 20 minutes, 2 3 times a day. Activity Do not drive while wearing a cervical collar. If you do not have a cervical collar, ask your health care provider if it is safe to drive while your neck heals. Do not drive or use heavy machinery while taking prescription pain medicine or muscle relaxants, unless your health care provider approves. Do not lift anything that is heavier than 10 lb (4.5 kg) until your health care provider tells you that it is safe. Rest as directed by your health care provider. Avoid positions and activities that make your symptoms worse. Ask your health care provider what activities are safe for you. If physical therapy was prescribed, do exercises as told by your health care provider or physical therapist. General instructions Take kxdl-owt-ofkmdpb and prescription medicines only as told by your health care provider. Do not use any products that contain nicotine or tobacco, such as cigarettes and e-cigarettes. These can delay healing. If you need help quitting, ask your health care provider. Keep all follow-up visits as told by your health care provider or physical therapist. This is important. How is this prevented? To prevent a cervical sprain from happening again: Use and maintain good posture. Make any needed adjustments to your workstation to help you use good posture. Exercise regularly as directed by your health care provider or physical therapist. Avoid risky activities that may cause a cervical sprain. Contact a health care provider if: You have symptoms that get worse or do not get better after 2 weeks of treatment. You have pain that gets worse or does not get better with medicine. You develop new, unexplained symptoms. You have sores or irritated skin on your neck from wearing your cervical collar. Get help right away if: You have severe pain. You develop numbness, tingling, or weakness in any part of your body. You cannot move a part of your body (you have paralysis). You have neck pain along with: ?Severe dizziness. ?Headache. Summary A cervical sprain is a stretch or tear in one or more of the tough, cord-like tissues that connect bones (ligaments) in the neck. Cervical sprains may be caused by an injury (trauma), such as from a motor vehicle accident, a fall, or sudden forward and backward whipping movement of the head and neck (whiplash injury). Symptoms may develop right away after injury, or they may develop over a few days. This condition is treated by resting and icing the injured area and doing physical therapy exercises. This information is not intended to replace advice given to you by your health care provider. Make sure you discuss any questions you have with your health care provider. Document Released: 12/22/2007 Document Revised: 06/16/2019 Document Reviewed: 10/23/2016 [employer] Patient Education 2020 [employer]. Follow Up Care 08/24/2021 22:42:21 With:Champ Ray Address: [address] [place] [id number] Business (1) When:Within 3 Day(s) [facility] Evaluation + Plan note 08-24-2021 Note Date & Type Note Facility 08-24-2021 Evaluation + Plan note [facility] [place] from: Title:ED Note Author:Tyler Summers DO Date :08/24/21 Cervical strain (S16.1XXA: S train of muscle, fascia and tendon at neck level, initial encounter) CHI (closed head injury) (S09.90XA: Unspecified injury of head, initial encounter) Orders: ketorolac, 15 mg = 1 mL, Injection, IV Push, Once, Stop date 08/25/21 0:14:00 EDT, STAT, Start date 08/25/21 0:14:00 EDT, 08/25/21 0:14:00 EDT ondansetron, 4 mg = 2 mL, Injection, IV Push, Once, Stop date 08/24/21 22:58:00 EDT, STAT, Start date 08/24/21 22:58:00 EDT, 08/24/21 22:58:00 EDT Sodium Chloride 0.9% intravenous solution, 1,000 mL, Soln-IV, IV, Once, Stop date 08/24/21 22:59:00 EDT, STAT, Start date 08/24/21 22:59:00 EDT, mL/hr, Infuse over 61, minute(s) Beta hCG Qual CT Head or Brain w/o Contrast CT Spine Cervical w/o Contrast [facility] Evaluation note Note Date & Type Note Facility Evaluation note Diagnosis Thyroid disorder- Primary Unspecified disorder of thyroid Hair loss Unspecified alopecia documented in this encounter [facility] Evaluation note Note Date & Type Note Facility Evaluation note Diagnosis Type 2 diabetes mellitus with hyperglycemia, unspecified whether halfway insulin use (HCC)- Primary Thyroid disorder Unspecified disorder of thyroid Hair loss Unspecified alopecia documented in this encounter [facility] Hospital course Narrative Note Date & Type Note Facility Hospital course Narrative No data available for this section [facility] Progress note Note Date & Type Note Facility Progress note No data available for this section [facility] Summary Purpose Family History No Family History Records FoundNo Family History Records FoundNo Family History Records FoundNo Family History Records Found Advance Directives No Advanced Directives Records FoundDocuments on File Type Date 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 Advance Directives and Livin g Will 05/02/2021 12:00 AM Reason for Referral Specialty Diagnoses / Procedures Referred By Juan Antonio montemayor Referred To Contact Endocrinology Diagnoses Thyroid disorder Hair loss Champ Bell MD [address] [facility] [place] [address] [place] [address] Gregorio Floyd MD [address] [place] [id number] Referral ID Status Reason Start Date Expiration Date Visits Requested Visits Authorized [id number] Authorized Specialty Services Required/Pat ient's Best Interest 05/04/2021 05/04/2022 1 1 Additional Source Comments INFORMATION SOURCE (unrecogn ized section and content) DATE CREATED AUTHOR 02/06/2021 [facility] DATE CREATED AUTHOR AUTHOR'S ORGANIZ ATION 08/27/2021 [facility] DATE CREATED AUTHOR AUTHOR'S ORGANIZ ATION 08/30/2021 [facility] DATE CREATED AUTHOR AUTHOR'S ORGANIZ ATION 06/02/2022 [facility] Care Teams (unrecognized sec tion and content) Specialist Field Engineer Relationship Specialty Start Date End Date Champ Bell MD [address] [place] [address] PCP - General Family Medicine 05/02/21 Specialist Field Engineer Relationship Specialty Start Date End Date Champ Bell MD [address] [place], [place] [id number] [phone] PCP - General Family Medicine 05/02/21 Reason for Visit (unrecogniz ed section and content) Reason Comments Thyroid Problem Specialty Diagnoses / Procedures Referred By Juan Antonio montemayor Referred To Contact Endocrinology Diagnoses Thyroid disorder Hair loss Champ Bell MD [address] [place] [address] Gregorio Floyd MD [address] [place] [id number] Referral ID Status Reason Start Date Expiration Date V isits Requested Visits Authorized [id number] Closed Specialty Services Required/Deanna ent's Best Interest 05/04/2021 05/04/2022 1 1 FOR RECORDS PERTAINING TO PATIENTS WHO ARE OR HAVE BEEN ENROLLED IN A CHEMICAL DEPENDENCY/SUBSTANCEABUSE PROGRAM, SOME INFORMATION MAY BE OMITTED. This clinical summary was aggregated from multiple sources. Caution should be exercised in using it in the provision of clinical care. This summary normalizes information from multiple sources, and as a consequence, information in this document may materially change the coding, format and clinical context of patient data. In addition, data may be omitted in some cases. CLINICAL DECISIONS SHOULD BE BASED ON THE PRIMARY CLINICAL RECORDS. [facility] [employer] provides no warranty or guarantee of the accuracy or completeness of information in this document.
== END 2023-03-14 09:32 | disposition home or self-care (01) ==
LOC: US 09:32
PROVIDERS: PCP Family Medicine; Visit Provider Obstetrics & Gynecology
DX: Z34.91 Encounter for supervision of normal pregnancy, unspecified, first trimester (principal); Z3A.01 Less than 8 weeks gestation of pregnancy; N92.6 Irregular menstruation, unspecified
CPT/HCPCS: 76817

== ENCOUNTER 2023-04-01 11:35 | Outpatient (OUT) | payer OTHER, SELFPAY ==
--- OUTSIDE RECORDS SUMMARY | 2023-04-01 11:39 | XMS_ITS | CCD ---
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 Name Role Phone Champ Bell MD Primary Care Provider Champ Bell Primary Care Physician [phone] Champ Bell MD Primary Care Provider CHAMP BELL Admitting Unavailable CHAMP BELL Primary Care Unavailable CHAMP BELL Referring Unavailable GREGORIO FLOYD Attending Unava ilable [...] Unavailable HOY ., DR OAKES Admitting Unavailable BLUEWATER, DR MAY Silverman Consulting Unavailable CRYSTAL PENG Consulting Unavailable RAY ., DR OAKES Primary Care Unavailable CRYSTAL PENG Attending Unavailable CRYSTAL PENG Admitting Unavailable Medications Current Medications Medication Drug Class(es) Dates Sig (Normalized) Sig (Original) acetaminophen 325 mg / HYDROcodone bitartrate 5 mg oral tablet (1 source) Opioid Agonist Start: 07-03-2020 [place] 325 mg-5 mg oral tablet 1 tab(s), [...] [UNS LUMP RT BREAST OVRLPNG QUADRNTS] Onset: 09-22-2022 Past or Other Problems Problem Classification Problem [...] Value Interpretation Reference Range Facility Covid-19 PCR (CVDTB)on 05-09 SARS-CoV-2 (COVID-19) RNA EZEKIEL+probe Ql (Unsp spec) Not detected Normal NOT DETECTED [facility] Comment on above: Result Comment: This test is not yet approved or cleared by the [place] FDA. When there are no FDA-approved or cleared tests available, and other criteria are met, FDA can make tests available under an emergency access mechanism called an Emergency Use Authorization (EUA). The EUA for this test is supported by the [place] of Health and Human Service's (HHS's) declaration [...] SARS-CoV-2. Performed By: #### C VDTBH #### [facility] [address] [place] [address] Dr. Rosemary Ames GROUP A STREP CULTUREon 05-09 S. pyogenes Ag Ql (Unsp spec) Culture Observations: NEGATIVE FOR GROUP A STREPTOCOCCUS. Normal [facility] Comment on above: Performed By: #### T 7, LIPID, TSH, CMADM, BNP, CMP #### [facility] [address] [place] [address] Dr. Rosemary Ames INFLUENZA A AND B AGon 05-31 INFLUANEGH SEE BELOW Normal [facility] Comment on above: Result Comment: Nega tive for Flu A protein angiten. Infection due to Flu A cannot be ruled out. Flu A angiten in the sample may be below the detection limit of the test. Performed By: #### I NFLUAB #### [facility] [address] [place] [address] Dr. Rosemary Ames INFLUBNEGH SEE BELOW Normal [facility] Comment on above: Result Comment: Nega tive for Flu B protein antigen. Infection due to Flu B cannot be ruled out. Flu B antigen in the sample may be below the detection limit of the test. Performed By: #### I NFLUAB #### [facility] [address] [place] [address] Dr. Rosemary Ames INFLUENZA A AG Negative Normal NEGATIVE SEE COMMENT [facility] Comment on above: Performed By: #### I NFLUAB #### [facility] [address] [place] [address] Dr. Rosemary Ames INFLUENZA B AG Negative Normal NEGATIVE SEE COMMENT [facility] Comment on above: Performed By: #### I NFLUAB #### [facility] [address] [address] [address] Rosemary Ames STREPT SCREENon 05-31-2022 STREP SCREEN A Negative Normal NEGATIVE [facility] Comment on above: Performed By: #### E RUR #### [facility] [address] [place] [address] Dr. Rosemary Ames SYMPTOMATIC COVID-19 ANTIGEN on 05-31-2022 EUA Statement SEE BELOW Normal [facility] Comment on above: Result Comment: This [...] 7, LIPID, TSH, CMADM, BNP, CMP #### [facility] [address] [place], [place] [id number] Dr. Rosemary Ames SARS-CoV-2 (COVID-19) RNA EZEKIEL+probe Ql (Unsp spec) Negative Normal NEGATIVE [facility] Comment on above: Performed By: #### T 7, LIPID, TSH, CMADM, BNP, CMP #### [facility] [id number] Rosemary Ames ECHOCARDIO M/2D COMPLETEon 0 04-10-2022 ECHOCARDIO M/2D COMPLETE Patient: TESS ASHLEY Exam Date: 04/10/2022 : 1995 Gender:F Ordering : DR CHAMP BELL . Admission #: [id number] Family : Order #: [id number] CLICK HERE TO VIEW EXAM ECHOCARDIOGRAM REPORT [...] on 04/10/2022 at 17:38 Approved by: Robert Moellre M.D. on 04/10/2022 at 17:40 Normal [facility] CBC AUTO DIFFon 03-13-2022 BASO # 0.0 103/ul Normal 0.0-0.1 [facility] Comment on above: Performed By: #### A 1C #### [facility] [address] [place] [address] Dr. Rosemary Ames Basophils/100 WBC (Bld) 0.3 % Normal 0.2-2.0 [facility] Comment on above: Performed By: #### A 1C #### [facility] [address] [place] [address] Dr. Rosemary Ames EO # 0.0 103/ul Normal 0.0-0.7 [facility] Comment on above: Performed By: #### A 1C #### [facility] [address] [place] [address] Dr. Rosemary Ames Eosinophils/100 WBC (Bld) 0.5 % Critically low 0.9-7.0 [facility] Comment on above: Performed By: #### A 1C #### [facility] [address] [place] [address] Dr. Rosemary Ames Erythrocyte distribution width (RBC) [Ratio] 14.5 % Normal 11.0-15.0 [facility] Comment on above: Performed By: #### A 1C #### [facility] [address] [address] [address] Rosemary Ames Hematocrit (Bld) [Volume fraction] 39.7 % Normal 36.0-48.0 [facility] Comment on above: Performed By: #### A 1C #### [facility] [address] [address] [address] Rosemary Ames Hemoglobin (Bld) [Mass/Vol] 12.9 g/dL Normal 12.0-16.0 [facility] Comment on above: Performed By: #### A 1C #### [facility] [address] [address] [address] Rosemary Ames IG # 0.03 10e3/ul Normal 0.00-0.03 [facility] Comment on above: Performed By: #### A 1C #### [facility] [address] [place] [address] Dr. Rosemary Ames IG % 0.4 % Normal 0.0-0.5 [facility] Comment on above: Performed By: #### A 1C #### [facility] [address] [address] [address] Rosemary Ames LYMPH # 0.5 103/ul Critically low 1.2-3.8 [facility] Comment on above: Performed By: #### A 1C #### [facility] [address] [place] [address] Dr. Rosemary Ames Lymphocytes/100 WBC (Bld) 6.6 % Critically low 20.5-60.0 [facility] Comment on above: Performed By: #### A 1C #### [facility] [address] [place] [address] Dr. Rosemary Ames MANUAL DIFF REQ NO Normal [facility] Comment on above: Performed By: #### A 1C #### [facility] [address] [place] [address] Dr. Rosemary Ames MCH (RBC) [Entitic mass] 25.1 pg Critically low 26.7-34.0 [facility] Comment on above: Performed By: #### A 1C #### [facility] [address] [place] [address] Dr. Rosemary Ames MCHC (RBC) [Mass/Vol] 32.5 g/dL Normal 29.9-35.2 [facility] Comment on above: Performed By: #### A 1C #### [facility] [address] [place] [address] Dr. Rosemary Ames MCV (RBC) [Entitic vol] 77.2 fL Critically low 81.0-99.0 [facility] Comment on above: Performed By: #### A 1C #### [facility] [address] [place] [address] Dr. Rosemary Ames MONO # 0.7 103/ul Normal 0.3-0.8 [facility] Comment on above: Performed By: #### A 1C #### [facility] [address] [place] [address] Dr. Rosemary Ames Monocytes/100 WBC (Bld) 9.3 % Normal 1.7-12.0 [facility] Comment on above: Performed By: #### A 1C #### [facility] [address] [place] [address] Dr. Rosemary Ames NEUT # 6.2 103/ul Normal 1.4-6.5 [facility] Comment on above: Performed By: #### A 1C #### [facility] [address] [place] [address] Dr. Rosemary Ames Neutrophils/100 WBC (Bld) 82.9 % Critically high 43.0-75.0 [facility] Comment on above: Performed By: #### A 1C #### [facility] [address] [place] [address] Dr. Rosemary Ames Platelet mean volume (Bld) [Entitic vol] 9.8 fL Normal 9.5-13.5 [facility] Comment on above: Performed By: #### A 1C #### [facility] [address] [place] [address] Dr. Rosemary Ames PLT 246 103/ul Normal 150-450 [facility] Comment on above: Performed By: #### A 1C #### [facility] [address] [place] [address] Dr. Rosemary Ames RBC 5.14 106/ul Normal 4.20-5.40 [facility] Comment on above: Performed By: #### A 1C #### [facility] [address] [place] [address] Dr. Rosemary Ames WBC 7.4 103/ul Normal 4.0-11.0 [facility] Comment on above: Performed By: #### A 1C #### [facility] [address] [place] [address] Dr. Rosemary Ames Covid-19 PCR ([facility])on SARS-CoV-2 (COVID-19) RNA EZEKIEL+probe Ql (Unsp spec) Not detected Normal NOT DETECTED [facility] Comment on above: Result Comment: When diagnostic [...] for this test is supported by the [place] of Health and Human Service's declaration that [...] used). Performed By: #### A 1C #### [facility] [address] [place] [address] [id number] [address] Rosemary Ames D-DIMERon 03-13-2022 D-DIMER 0.26 mg/L FEU Normal <=0.[address] [facility] Comment on above: Performed By: #### T 7, LIPID, TSH, CMADM, BNP, CMP #### [facility] [address] [place] [address] [address] [address] Rosemary Ames D-DIMER COMMENTS SEE BELOW Normal [facility] Comment on above: Result Comment: Incr eases [...] 7, LIPID, TSH, CMADM, BNP, CMP #### [facility] [address] [place] [address] Dr. Rosemary Ames ER URINE PROFILEon 3 Bilirubin Ql (U) Negative Normal NEGATIVE [facility] Comment on above: Performed By: #### E RUR #### [facility] [address] [place] [address] Dr. Rosemary Ames Clarity (U) CLEAR Normal CLEAR [facility] Comment on above: Performed By: #### E RUR #### [facility] [address] [place] [address] Dr. Rosemary Ames Color (U) LT. YELLOW Normal YELLOW [facility] Comment on above: Performed By: #### E RUR #### [facility] [address] [place] [address] Dr. Rosemary MARTIN A micrscopic examination will be performed if indicated. Normal [facility] Comment on above: Performed By: #### E RUR #### [facility] [address] [place] [address] Dr. Rosemary Ames Glucose Ql (U) Negative Normal NEGATIVE [facility] Comment on above: Performed By: #### E RUR #### [facility] [address] [place] [address] Dr. Rosemary Ames Hemoglobin Ql (U) Negative Normal NEGATIVE [facility] Comment on above: Performed By: #### E RUR #### [facility] [address] [place] [address] Dr. Rosemary Ames Ketones Ql (U) Negative Normal NEGATIVE [facility] Comment on above: Performed By: #### E RUR #### [facility] [address] [place] [address] Dr. Rosemary Ames LEUKOCYTES Negative Normal NEGATIVE [facility] Comment on above: Performed By: #### E RUR #### [facility] [address] [place] [address] Dr. Rosemary Ames Nitrite Ql (U) Negative Normal NEGATIVE [facility] Comment on above: Performed By: #### E RUR #### [facility] [address] [place] [address] Dr. Rosemary Ames pH (U) 6.0 [pH] Normal 5-9 [facility] Comment on above: Performed By: #### E RUR #### [facility] [address] [place] [address] Dr. Rosemary Ames SPEC GRAVITY 1.015 Normal 1.005-<=1.025 [facility] Comment on above: Performed By: #### E RUR #### [facility] [address] [place] [address] Dr. Rosemary Ames UA PROTEIN Negative Normal NEGATIVE/ TRACE [facility] Comment on above: Performed By: #### E RUR #### [facility] [address] [place] [address] Dr. Rosemary Ames UR MICRO IND NOT INDICATED Normal [facility] Comment on above: Performed By: #### E RUR #### [facility] [address] [place] [address] Dr. Rosemary Ames Urobilinogen Qn (U) 0.2 {Vincent'U}/dL Normal 0.2 - 1. 0 [facility] Comment on above: Performed By: #### E RUR #### [facility] [address] [place] [address] Dr. Rosemary Ames INFLUENZA A AND B AGon 03-13 INFLUANEGH SEE BELOW Normal [facility] Comment on above: Result Comment: Nega tive for Flu A protein angiten. Infection due to Flu A cannot be ruled out. Flu A angiten in the sample may be below the detection limit of the test. Performed By: #### E RUR #### [facility] [address] [place] [address] Dr. Rosemary Ames [facility] SEE BELOW Normal [facility] Comment on above: Result Comment: Nega tive for Flu B protein antigen. Infection due to Flu B cannot be ruled out. Flu B antigen in the sample may be below the detection limit of the test. Performed By: #### E RUR #### [facility] [address] [place] [address] Dr. Rosemary Ames INFLUENZA A AG Negative Normal NEGATIVE SEE COMMENT [facility] Comment on above: Performed By: #### E RUR #### [facility] [address] [place] [address] Dr. Rosemary Ames INFLUENZA B AG Negative Normal NEGATIVE SEE COMMENT [facility] Comment on above: Performed By: #### E RUR #### [facility] [address] [place] [address] Dr. Rosemary Ames LACTATE/LACTIC ACIDon 2022 Lactate [Moles/Vol] 2.0 mmol/L Critically high 0.4-1.9 [facility] Comment on above: Performed By: #### A 1C #### [facility] [address] [place] [address] Dr. Rosemary Ames LIPASEon 03-13-2022 Lipase [Catalytic activity/Vol] 79.0 U/L Normal 73.0-393.0 [facility] Comment on above: Performed By: #### A 1C #### [facility] [address] [place] [address] Dr. Rosemary Ames PREG HCG QUALon 03-13-2022 , QUAL Negative Normal NEGATIVE [facility] Comment on above: Performed By: #### A 1C #### [facility] [address] [place] [address] Dr. Rosemary Ames PROF 14(COMP METB)on 023 Albumin [Mass/Vol] 4.1 g/dL Normal 3.4-5.0 [facility] Comment on above: Performed By: #### A 1C #### [facility] [address] [place] [address] Dr. Rosemary Ames Albumin/Globulin [Mass ratio] 1.1 {ratio} Normal [facility] Comment on above: Performed By: #### A 1C #### [facility] [address] [place] [address] Dr. Rosemary Ames ALP [Catalytic activity/Vol] 77 U/L Normal 46-116 [facility] Comment on above: Performed By: #### A 1C #### [facility] [address] [place] [address] Dr. Rosemary Ames ALT [Catalytic activity/Vol] 149 U/L Critically high 14-59 [facility] Comment on above: Performed By: #### A 1C #### [facility] [address] [place] [address] Dr. Rosemary Ames Anion gap [Moles/Vol] 16.0 mmol/L Normal [facility] Comment on above: Performed By: #### A 1C #### [facility] [address] [place] [address] Dr. Rosemary Ames AST [Catalytic activity/Vol] 82 U/L Critically high 15-37 [facility] Comment on above: Performed By: #### A 1C #### [facility] [address] [place] [address] Dr. Rosemary Ames Bilirubin [Mass/Vol] 1.0 mg/dL Normal 0.2-1.0 [facility] Comment on above: Performed By: #### A 1C #### [facility] [address] [place] [address] Dr. Rosemary Ames Calcium [Mass/Vol] 9.1 mg/dL Normal 8.5-10.1 [facility] Comment on above: Performed By: #### A 1C #### [facility] [address] [address] [address] Rosemary Ames Chloride [Moles/Vol] 96 mmol/L Critically low 98-107 [facility] Comment on above: Performed By: #### A 1C #### [facility] [address] [place] [address] Dr. Rosemary Ames CO2 [Moles/Vol] 25.7 mmol/L Normal 21.0-32.0 [facility] Comment on above: Performed By: #### A 1C #### [facility] [address] [address] [address] Rosemary Ames Creatinine [Mass/Vol] 0.78 mg/dL Normal 0.55-1.02 [facility] Comment on above: Performed By: #### A 1C #### [facility] [address] [address] [address] Rosemary Ames EGFR-AF JORDANIAN >60 Normal >=60 [facility] Comment on above: Performed By: #### A 1C #### [facility] [address] [address] [address] Rosemary Ames EGFR-NON AF JORDANIAN >60 Normal >=60 [facility] Comment on above: Performed By: #### A 1C #### [facility] [address] [place] [address] Dr. Rosemary Ames Globulin (S) [Mass/Vol] 3.9 g/dL Normal [facility] Comment on above: Performed By: #### A 1C #### [facility] [address] [place] [address] Dr. Rosemary Ames Glucose [Mass/Vol] 190 mg/dL Critically high 74-106 [facility] Comment on above: Performed By: #### A 1C #### [facility] [address] [place] [address] Dr. Rosemary Ames Potassium [Moles/Vol] 3.7 mmol/L Normal 3.5-5.1 [facility] Comment on above: Performed By: #### A 1C #### [facility] [address] [place] [address] Dr. Rosemary Ames Protein [Mass/Vol] 8.0 g/dL Normal 6.4-8.2 [facility] Comment on above: Performed By: #### A 1C #### [facility] [address] [place] [address] Dr. Rosemary Ames Sodium [Moles/Vol] 134 mmol/L Critically low 136-145 [facility] Comment on above: Performed By: #### A 1C #### [facility] [address] [address] [address] Rosemary Ames Urea nitrogen [Mass/Vol] 9.0 mg/dL Normal 7.0-18.0 [facility] Comment on above: Performed By: #### A 1C #### [facility] [address] [id number] [address] Rosemary Ames Urea nitrogen/Creatinine [Mass ratio] 11.5 mg/mg Normal [facility] Comment on above: Performed By: #### A 1C #### [facility] [address] [address] [address] Rosemary Ames TROPONIN, HIGH SENSITIVITYon 03-13-2022 HSTROP <4.0 Normal 4.0-51.3 [facility] Comment on above: Result Comment: CUT- OFF POINTS HAVE BEEN ESTABLISHED BASED ON THE FOURTH UNIVERSAL DEFINITIONS OF MYOCARDIAL INFARCTION. THE UPPER REFERENCE LIMIT (URL) OF TROPONIN, DEFINED THE 99TH PERCENTILE OF cTnI DISTRIBUTION IN A REFERENCE POPULATION, HAS BEEN CONFIRMED THE DECISION THRESHOLD FOR SD DIAGNOSIS. Previously reported as: 3.9 On 03/13/2022 18:24 By DM9 Performed By: #### A 1C #### [facility] [address] [address] [address] Rosemary Ames TSHon 03-13-2022 TSH 0.440 uIU/mL Normal 0.358-3.[address] [facility] Comment on above: Performed By: #### A 1C #### [facility] [address] [id number] [address] Rosemary Ames XR CHEST 1 Von [...] TUAN LEWIS Date: 2022-03-13 18:59 Normal [facility] INSULINon 12-11-2021 Insulin 40.7 uIU/mL Critically high 2.6-24.9 [facility] Comment on above: Performed By: #### A 1C #### [facility] [address] [place] [address] Dr. Rosemary Ames BNPon 12-10-2021 NT PRO BNP <11.1 Normal <=450.0 [facility] Comment on above: Performed By: #### T 7, LIPID, TSH, CMADM, BNP, CMP #### [facility] [address] [place] [address] Dr. Rosemary Ames CARDIAC RY ADMITon 022 CK [Catalytic activity/Vol] 80 U/L Normal 26-192 [facility] Comment on above: Performed By: #### T 7, LIPID, TSH, CMADM, BNP, CMP #### [facility] [address] [place] [address] Dr. Rosemary Ames CK.MB [Mass/Vol] 0.56 ng/mL Normal <=3.60 [facility] Comment on above: Performed By: #### T 7, LIPID, TSH, CMADM, BNP, CMP #### [facility] [address] [place] [address] Dr. Rosemary Ames HSTROP 5.3 pg/mL Normal 4.0-51.3 [facility] Comment on above: Result Comment: CUT- OFF POINTS HAVE BEEN ESTABLISHED BASED ON THE FOURTH UNIVERSAL DEFINITIONS OF MYOCARDIAL INFARCTION. THE UPPER REFERENCE LIMIT (URL) OF TROPONIN, DEFINED THE 99TH PERCENTILE OF cTnI DISTRIBUTION IN A REFERENCE POPULATION, HAS BEEN CONFIRMED THE DECISION THRESHOLD FOR SD DIAGNOSIS. Performed By: #### T 7, LIPID, TSH, CMADM, BNP, CMP #### [facility] [address] [place] [address] Dr. Rosemary Ames RADHA 26 ng/mL Normal 9-82 [facility] Comment on above: Performed By: #### T 7, LIPID, TSH, CMADM, BNP, CMP #### [facility] [address] [place] [address] Dr. Rosemary Ames CBC AUTO DIFFon 12-10-2021 BASO # 0.0 103/ul Normal 0.0-0.1 [facility] Comment on above: Performed By: #### E RUR #### [facility] [address] [address] [address] Rosemary Ames Basophils/100 WBC (Bld) 0.4 % Normal 0.2-2.0 [facility] Comment on above: Performed By: #### E RUR #### [facility] [address] [place] [address] Dr. Rosemary Ames EO # 0.1 103/ul Normal 0.0-0.7 [facility] Comment on above: Performed By: #### E RUR #### [facility] [address] [place] [address] Dr. Rosemary Ames Eosinophils/100 WBC (Bld) 1.0 % Normal 0.9-7.0 [facility] Comment on above: Performed By: #### E RUR #### [facility] [address] [place] [address] Dr. Rosemary Ames Erythrocyte distribution width (RBC) [Ratio] 13.7 % Normal 11.0-15.0 [facility] Comment on above: Performed By: #### E RUR #### [facility] [address] [place] [address] Dr. Rosemary Ames Hematocrit (Bld) [Volume fraction] 40.9 % Normal 36.0-48.0 [facility] Comment on above: Performed By: #### E RUR #### [facility] [address] [place] [address] Dr. Rosemary Ames Hemoglobin (Bld) [Mass/Vol] 13.0 g/dL Normal 12.0-16.0 [facility] Comment on above: Performed By: #### E RUR #### [facility] [address] [place] [address] Dr. Rosemary Ames IG # 0.03 10e3/ul Normal 0.00-0.03 [facility] Comment on above: Performed By: #### E RUR #### [facility] [address] [place] [address] Dr. Rosemary Ames IG % 0.4 % Normal 0.0-0.5 [facility] Comment on above: Performed By: #### E RUR #### [facility] [address] [address] [address] Rosemary Ames LYMPH # 2.4 103/ul Normal 1.2-3.8 [facility] Comment on above: Performed By: #### E RUR #### [facility] [address] [address] [address] Rosemary Ames Lymphocytes/100 WBC (Bld) 30.3 % Normal 20.5-60.0 [facility] Comment on above: Performed By: #### E RUR #### [facility] [address] [address] [address] Rosemary Ames MANUAL DIFF REQ NO Normal [facility] Comment on above: Performed By: #### E RUR #### [facility] [address] [place] [address] Dr. Rosemary Ames MCH (RBC) [Entitic mass] 25.8 pg Critically low 26.7-34.0 [facility] Comment on above: Performed By: #### E RUR #### [facility] [address] [place] [address] Dr. Rosemary Ames MCHC (RBC) [Mass/Vol] 31.8 g/dL Normal 29.9-35.2 [facility] Comment on above: Performed By: #### E RUR #### [facility] [address] [place] [address] Dr. Rosemary Ames MCV (RBC) [Entitic vol] 81.2 fL Normal 81.0-99.0 [facility] Comment on above: Performed By: #### E RUR #### [facility] [address] [address] [address] Rosemary Ames MONO # 0.5 103/ul Normal 0.3-0.8 [facility] Comment on above: Performed By: #### E RUR #### [facility] [address] [address] [address] Rosemary Ames Monocytes/100 WBC (Bld) 6.1 % Normal 1.7-12.0 [facility] Comment on above: Performed By: #### E RUR #### [facility] [address] [address] [address] Rosemary Ames NEUT # 5.0 103/ul Normal 1.4-6.5 [facility] Comment on above: Performed By: #### E RUR #### [facility] [address] [address] [address] Rosemary Ames Neutrophils/100 WBC (Bld) 61.8 % Normal 43.0-75.0 [facility] Comment on above: Performed By: #### E RUR #### [facility] [address] [place] [address] Dr. Rosemary Ames Platelet mean volume (Bld) [Entitic vol] 9.9 fL Normal 9.5-13.5 [facility] Comment on above: Performed By: #### E RUR #### [facility] [address] [place] [address] Dr. Rosemary Ames PLT 284 103/ul Normal 150-450 [facility] Comment on above: Performed By: #### E RUR #### [facility] [address] [place] [address] Dr. Rosemary Ames RBC 5.04 106/ul Normal 4.20-5.40 [facility] Comment on above: Performed By: #### E RUR #### [facility] [address] [place] [address] Dr. Rosemary Ames WBC 8.0 103/ul Normal 4.0-11.0 [facility] Comment on above: Performed By: #### E RUR #### [facility] [address] [place] [address] Dr. Rosemary Ames FREE THYROXINE INDEX T7on FTI 2.31 Normal 1.30-4.50 [facility] Comment on above: Performed By: #### T 7, LIPID, TSH, CMADM, BNP, CMP #### [facility] [address] [place] [address] Dr. Rosemary Ames T3U 30.0 % Normal 30.0-39.0 [facility] Comment on above: Performed By: #### T 7, LIPID, TSH, CMADM, BNP, CMP #### [facility] [address] [address] [address] Rosemary Ames T4 [Mass/Vol] 7.70 ug/dL Normal 4.80-13.90 [facility] Comment on above: Performed By: #### T 7, LIPID, TSH, CMADM, BNP, CMP #### [facility] [address] [address] [address] Rosemary Ames GLYCOHEMOGLOBIN A1Con 2021 ADA RECOMMENDATION SEE BELOW Normal [facility] Comment on above: Result Comment: ADA RECOMMENDED LIMIT 4.0 - 6.0 ADA THERAPEUTIC TARGET < 7.0 ACTION SUGGESTED > 7.0 Performed By: #### A 1C #### [facility] [address] [place] [address] Dr. Rosemary Ames Glucose [Mass/Vol] 243 mg/dL Normal [facility] Comment on above: Performed By: #### A 1C #### [facility] [address] [address] [address] Rosemary Ames HbA1c (Bld) [Mass fraction] 10.1 % Critically high 4.5-6.2 [facility] Comment on above: Performed By: #### A 1C #### [facility] [address] [place] [address] Dr. Rosemary Ames IRONon 12-10-2021 Iron [Mass/Vol] 29.0 ug/dL Critically low 50.0-170.0 [facility] Comment on above: Performed By: #### A 1C #### [facility] [address] [place] [address] Dr. Rosemary Ames LIPID PROFILEon 12-10-2021 CHOL-HDL RATIO NORM SEE BELOW Normal [facility] Comment on above: Result Comment: 3.3 - 4.4 LOW RISK 4.4 - 7.1 AVERAGE RISK 7.1 - 11.0 MODERATE RISK >11.0 HIGH RISK Performed By: #### T 7, LIPID, TSH, CMADM, BNP, CMP #### [facility] [address] [address] [address] Rosemary Ames Cholesterol [Mass/Vol] 184 mg/dL Normal <=200 [facility] Comment on above: Performed By: #### T 7, LIPID, TSH, CMADM, BNP, CMP #### [facility] [address] [address] [address] Rosemary Ames Cholesterol in HDL [Mass/Vol] 44 mg/dL Normal 40-60 [facility] Comment on above: Performed By: #### T 7, LIPID, TSH, CMADM, BNP, CMP #### [facility] [address] [address] [address] Rosemary Ames Cholesterol in LDL [Mass/Vol] 94.6 mg/dL Normal [facility] Comment on above: Performed By: #### T 7, LIPID, TSH, CMADM, BNP, CMP #### [facility] [address] [place] [address] Dr. Rosemary Ames Cholesterol.total/Ch olesterol in HDL [Mass ratio] 4.2 {ratio} Normal [facility] Comment on above: Performed By: #### T 7, LIPID, TSH, CMADM, BNP, CMP #### [facility] [address] [address] [address] Rosemary Ames HDL NORMAL > or = 60 mg/dl - LO W CARDIOVASCULAR RISK <40 mg/dl - HIGH CARDIOVASCULAR RISK Normal [facility] Comment on above: Performed By: #### T 7, LIPID,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 - Serum or Plasma Lipid Panel Lab Routine Type 2 diabetes mellitus with hyperglycemia, unspecified whether residential insulin use (HCC) 1 Occurrences starting 08/27/2021 until 08/27/2022 [facility] Comment on above: 1 Occurrences starti ng 08/27/2021 until 08/27/2022 Microalbumin measurement, urine, quantitative Microalbumin/Creatinine Ratio, UR Random Lab Routine Type 2 diabetes mellitus with hyperglycemia, unspecified whether manager long term care insulin use (HCC) Ordered: 08/27/2021 [facility] Work Phone: Comment on above: Ordered: 08/27/2021 Payers Date Payer Category Payer Medicaid [employer] [facility] MEDICAID [employer] [id number] 2019-Present [phone] [address] [place] [address] [id number] 1994 Unknown [id number] 1994 Unknown [id number] [id number] 1994 Unknown [id number] [id number] 1994 Unknown [id number] 2.16.840.1.642985.3.579.2.593 1994 Unknown [id number] 2.16.840.1.838306.3.579.2.593 1994 Unknown [id number] 2.16840.1.833866.3.579.2.593 1994 Unknown [id number] 2.16.840.1.931159.3.579.2.593 1994 Unknown [id number] 2.16.840.1.860150.3.579.2.593 1994 Unknown [id number] 2.16.840.1.520695.3.579.2.593 1994 Unknown [id number] 2.16.840.1.093033.3.579.2.593 1994 Unknown [id number] 2.16.840.1.329185.3.579.2.593 1994 Unknown [id number] 2.16.840.1.412622.3.579.2.593 1994 Unknown [id number] 2.16.840.1.330850.3.579.2.593 1994 Unknown [id number] 2.16.840.1.057702.3.579.2.593 1994 Unknown [id number] [id number] 1960 Medicaid [id number] 1960 Unknown [id number] 1959 Unknown [id number] 1959 Unknown [id number] Social History Date Type Detail Facility Tobacco smoking status [facility] Tobacco smoking consumption unknown [facility] Start: 1994 Sex Assigned At Not on file [facility] Start: 08-24-2021 Tobacco smoking status Never [facility] Sex Assigned At Female [facility] Start: 08-17-2021 End: 08-27-2021 Exposure to SARS-CoV-2 (event) Not sure [facility] Functional Status Date Assessment Result Facility 08-24-2021 Functional Status N/A [facility] Instructions 08-27-2021 Patient Instructions Note Date [...] levothyroxine for now. documented in this encounter [facility] History of Present illness Narrative 08-27-2021 Gregorio [...] ALKPHOS, BILITOT No results found for: TSH, [id number], THYROIDAB No results found for: PTH, CALCIUM, JACQUES, PHOS Lab Results Component Value Date HGBA1C 7.7 (A) 08/27/2021 No results found for: LDLCALC, CHOL, HDL, TRIG, CHOLHDL No results found for: MICALBCREAT, [id number] No results found for: CPEPTIDE Assessment and [...] acanthosis nigricans indicate T2DM, but will get [id number] and c-peptide/glucose given the young age of [...] Due for foot exam no 08/2021; to financial health counselor on foot care next visit CV [...] Floyd MD Endocrinology documented in this encounter [facility] Discharge instructions 08-25-2021 Note Date & Type [...] Ask your health care provider for a [id number]-te-wmry plan for gradually returning to activities. Ask [...] your friends, family, a trusted colleague, and rn social work about your injury, symptoms, and restrictions. Have them watch for any new or worsening problems. General instructions Take pdci-ozu-kqbkkkk and prescription medicines only as told by [...] 02/24/2006 Document Revised: 03/24/2019 Document Reviewed: 03/19/2019 [employer] Patient Education 2020 [employer]. 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 General instructions Take esfs-wnc-yjplcek and prescription medicines only as told by [...] 12/22/2007 Document Revised: 06/16/2019 Document Reviewed: 10/23/2016 [employer] Patient Education 2020 [employer]. Follow Up Care 08/24/2021 22:42:21 With:Champ Bell Address: [address] [place], [place] [id number]- Business (1) When:Within 3 Day(s) [facility] Evaluation + Plan note 08-24-2021 Note [...] w/o Contrast CT Spine Cervical w/o Contrast [facility] Evaluation note Note Date & Type Note Facility Evaluation note Diagnosis Thyroid disorder- Primary Unspecified disorder of thyroid Hair loss Unspecified alopecia documented in this encounter [facility] Evaluation note Note Date & Type Note Facility Evaluation note Diagnosis Type 2 diabetes mellitus with hyperglycemia, unspecified whether residential insulin use (HCC)- Primary Thyroid disorder Unspecified disorder of thyroid Hair loss Unspecified alopecia documented in this encounter [facility] Hospital course Narrative Note Date & Type Note Facility Hospital course Narrative No data available for this section [facility] Progress note Note Date & Type Note Facility Progress note No data available for this section [facility] Summary Purpose Family History No Family History Records FoundNo Family History Records FoundNo Family History Records FoundNo Family History Records FoundNo Family History Records Found Advance Directives No Advanced Directives Records FoundDocuments on File Type Date Recorded 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 Advance Directives and Livin g Will 05/02/2021 12:00 AM Reason for Referral Specialty Diagnoses / Procedures Referred By Juan Antonio montemayor Referred To Contact Endocrinology Diagnoses Thyroid disorder Hair loss Champ Bell MD [address] [facility] [place] [address] [place] [address] Gregorio Floyd MD [address] [place] [address] Referral ID Status Reason Start Date Expiration Date Visits Requested Visits Authorized [id number] Authorized Specialty Services Required/Pat ient's Best Interest 05/04/2021 05/04/2022 1 1 Additional Source Comments INFORMATION SOURCE (unrecogn ized section and content) DATE CREATED AUTHOR [facility]/06/2021 [facility] DATE CREATED AUTHOR AUTHOR'S ORGANIZ ATION 08/27/2021 [facility] DATE CREATED AUTHOR AUTHOR'S ORGANIZ ATION 08/30/2021 [facility] DATE CREATED AUTHOR AUTHOR'S ORGANIZ ATION 06/02/2022 [facility] DATE CREATED AUTHOR AUTHOR'S ORGANIZ ATION 03/15/2023 [facility] dical Specialists [employer] Care Teams (unrecognized sec tion and content) 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 Start Date End Date Champ Bell MD [address] [place] [phone] PCP - General Family Medicine 05/02/21 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 Start Date End Date Cahmp Bell MD [address] [phone] PCP - General Family Medicine 05/02/21 Reason for Visit (unrecogniz ed section and content) Reason Comments Thyroid Problem Specialty Diagnoses / Procedures Referred By Juan Antonio t Referred To Contact Endocrinology Diagnoses Thyroid disorder Hair loss Champ Bell MD [address] [place] [address] Gregorio Floyd MD [address] [place] [address] Referral ID Status Reason Start Date Expiration Date V isits Requested Visits Authorized [id number] Closed Specialty Services Required/Deanna ent's Best Interest [...] BE BASED ON THE PRIMARY CLINICAL RECORDS. [employer] [facility]. provides no warranty or guarantee of the accuracy or completeness of information in this document.
[2023-04-01 12:22] LABS: Basophils Percent Auto 0.3 % (0.2-2.0); Eosinophils Absolute Auto 0.1 10^3/uL (0.0-0.7); Eosinophils Percent Auto 0.7 % (0.9-7.0); Hematocrit 40.1 % (36.0-48.0); Hemoglobin 12.8 g/dL (12.0-16.0); Immature Granulocytes Abs Auto 0.05 10^3/uL (0.00-0.03); Immature Granulocytes Pct Auto 0.5 % (0.0-0.5); Lymphocytes Absolute Auto 2.7 10^3/uL (1.2-3.8); Lymphocytes Percent Auto 24.7 % (20.5-60.0); Mean Corpuscular HGB Conc 31.9 g/dL (29.9-35.2); Mean Corpuscular Hemoglobin 26.2 pg (26.7-34.0); Mean Corpuscular Volume 82.2 fL (81.0-99.0); Mean Platelet Volume 9.9 fL (9.5-13.5); Monocytes Absolute Auto 0.8 10^3/uL (0.3-0.8); Monocytes Percent Auto 7.2 % (1.7-12.0); Neutrophils Absolute Auto 7.2 10^3/uL (1.4-6.5); Neutrophils Percent Auto 66.6 % (43.0-75.0); Platelet Count 305 10^3/uL (150-450); Red Blood Count 4.88 10^6/uL (4.20-5.40); Red Cell Distribution Width 15.4 % (11.0-15.0); White Blood Count 10.8 10^3/uL (4.0-11.0)
[2023-04-01 13:03] LABS: Estimated Average Glucose 180 mg/dL; Glycohemoglobin A1C 7.9 % (4.5-6.2)
[2023-04-01 13:21] LABS: Thyroid Stimulating Hormone 1.051 uIU/mL (0.358-3.740)
[2023-04-02 06:09] LABS: Rubella Antibodies, IgG 4.91 index (Immune >0.99)
[2023-04-02 08:12] LABS: HCV Ab Non Reactive (Non Reactive); HIV Ab/p24 Ag Screen Non Reactive (Non Reactive)
[2023-04-02 10:12] LABS: HBsAg Screen Negative (Negative)
[2023-04-02 13:08] LABS: Rapid Plasma Reagin, Quant Non Reactive titer (NonRea<1:1)
== END 2023-04-01 11:36 | disposition home or self-care (01) ==
LOC: LAB 11:37
PROVIDERS: PCP Family Medicine; Visit Provider Obstetrics & Gynecology
DX: Z36.0 Encounter for antenatal screening for chromosomal anomalies (principal); N92.6 Irregular menstruation, unspecified
CPT/HCPCS: 36415; 83036; 84443; 85025; 86592; 86762; 86803; 86850; 86900; 86901; 87086; 87340; 87389

== ENCOUNTER 2023-04-14 14:02 | Outpatient (OUT) | payer OTHER, SELFPAY | END 2023-04-14 14:03 | disposition home or self-care (01) | PROVIDERS: PCP Family Medicine; Visit Provider Obstetrics & Gynecology | DX: Z34.80 Encounter for supervision of other normal pregnancy, unspecified trimester (principal) | CPT/HCPCS: 36415 ==

== ENCOUNTER 2023-04-16 09:22 | Emergency (ER) | payer OTHER, SELFPAY ==
[2023-04-16 09:28] VITALS: BP 175/92; PULSE 102; RESP 18; O2SAT 98; BMI 48.8
--- NOTE | 2023-04-16 09:41 | ED.PREGNANC1 ---
HPI - General Chief complaint: Urogenital-Female Stated complaint: 12 WEEKS BLEEDING Time Seen by Provider: 04/16/23 09:28 Source: patient Mode of arrival: walk-in History of Present Illness HPI Narrative: Patient woke this morning around 5am with vaginal bleeding. She noted blood in her underwear and when she went to the bathroom and sat on the toilet she had a big gush of blood . She said that after that the bleeding had been less than a regular period but steady . . LMP 01/22/23. US on 03/14/23 dates delivery at 10/27/23 and would make her 12weeks today. No recent abdominal trauma or falls. She sees Dr Conway. Related Data Home Medications Medication Instructions Recorded Confirmed desvenlafaxine succinate 100 mg 100 mg PO Q24H 04/16/23 04/16/23 tablet,extended release 24 hr insulin lispro 100 unit/mL 1 sliding scale dose subcut Q6H 04/16/23 04/16/23 subcutaneous solution (Humalog PRN hyperglycemia [facility] Insulin) lamotrigine 100 mg tablet 100 mg PO Q12H 04/16/23 04/16/23 metoprolol tartrate 25 mg tablet 25 mg PO Q12H 04/16/23 04/16/23 pantoprazole 40 mg tablet,delayed 40 mg PO DAILY 04/16/23 04/16/23 release Allergies Allergy/AdvReac Type Severity Reaction Status Date / Time No Known Drug Allergies Allergy Verified 01/11/23 15:08 Exam Narrative Exam Narrative: Nurses notes and vital signs reviewed and patient is not hypoxic. afebrile General: Well-appearing and in no apparent distress. Skin: Warm, dry, no pallor noted. No rash. Eye: Pupils are equal, round and EOMI. No scleral icterus. Cardiovascular: Regular Rate and Rhythm without murmur, gallop or rub. Respiratory: No accessory muscle use or respiratory distress. Lungs are clear to auscultation, no wheezing, rales or rhonchi Back: No midline thoracic or lumbar vertebral tenderness. No CVA tenderness Musculoskeletal: normal ROM, no lower extremity edema/swelling GI: Abdomen is soft, non-distended. Normal bowel sounds. No tenderness to palpation. No rebound, guarding, or rigidity noted. Neurological: A&O x4. No cranial nerve dysfunction observed. No truncal ataxia. Moves all extremities. Sensation intact. Psychiatric: Cooperative and interactive. Normal mood and affect. Constitutional Vital Signs, click to edit/add: Last Vital Signs Pulse 102 H 04/16/23 09:28 Resp 18 04/16/23 09:28 BP 175/92 H 04/16/23 09:28 Pulse Ox 98 04/16/23 09:28 O2 Del Method Room Air 04/16/23 09:28 Course Vital Signs Vital signs: Vital Signs Pulse Rate 102 H 04/16/23 09:28 Respiratory Rate 18 04/16/23 09:28 Blood Pressure 175/92 H 04/16/23 09:28 Pulse Oximetry 98 04/16/23 09:28 Oxygen Delivery Method Room Air 04/16/23 09:28 Pulse Rate 102 H 04/16/23 09:28 Respiratory Rate 18 04/16/23 09:28 Blood Pressure 175/92 H 04/16/23 09:28 Pulse Oximetry 98 04/16/23 09:28 Oxygen Delivery Method Room Air 04/16/23 09:28 MDM - OB/Uterine Contractions MDM Narrative Medical decision making narrative: Pelvic ultrasound obtained. Blood drawn and sent for testing including CBC and ABO with Rh. Unremarkable CBC. She is AB Rh +. US = live IUP at 12wks, 3days with HR 169bpm, per radiologist. Patient informed of results and discharged home with recommendation to maintain stict bed rest and see Dr Conway for follow up. Lab Data Attestation: I reviewed the patient's lab results. Labs: Lab Results 04/16/23 Range/Units 09:54 WBC 10.9 (4.0-11.0) 10^3/uL RBC 4.82 (4.20-5.40) 10^6/uL Hgb 12.7 (12.0-16.0) g/dL Hct 40.3 (36.0-48.0) % MCV 83.6 (81.0-99.0) fL MCH 26.3 L (26.7-34.0) pg MCHC 31.5 (29.9-35.2) g/dL RDW 15.2 H (11.0-15.0) % Plt Count 268 (150-450) 10^3/uL MPV 9.7 (9.5-13.5) fL Neut % (Auto) 70.9 (43.0-75.0) % Lymph % (Auto) 21.9 (20.5-60.0) % [place] % (Auto) 6.2 (1.7-12.0) % Eos % (Auto) 0.5 L (0.9-7.0) % Baso % (Auto) 0.2 (0.2-2.0) % Neut # (Auto) 7.7 H (1.4-6.5) 10^3/uL Lymph # (Auto) 2.4 (1.2-3.8) 10^3/uL [place] # (Auto) 0.7 (0.3-0.8) 10^3/uL Eos # (Auto) 0.1 (0.0-0.7) 10^3/uL Baso # (Auto) 0.0 (0.0-0.1) 10^3/uL Abs Immat Gran (auto) 0.03 (0.00-0.03) 10^3/uL Imm/Tot Granulo (auto) 0.3 (0.0-0.5) % Imaging Data US pelvis: My impression: Additional rad read/report: FINDINGS: Intrauterine gestational sac with good decidual reaction. Within the sac there is a pole and a yolk sac. MEASUREMENTS: CRL: 59 mm AGE: 12 weeks and 3 days. KULDIP: 10/26/2023 HEART RATE: 169. MATERNAL ADNEXAL REGION: Right ovary is not seen. Left ovary is grossly unremarkable in appearance Radiologist's impression: ITS Impressions Ultrasound 04/16/23 09:45 IMPRESSION: 1. Single, live intrauterine with an estimated age of 12 weeks and 3 days. by this study. Electronically authenticated by: SHIREEN MATA Date: 04/16/2023 10:28 Discharge Plan Discharge Chief Complaint: Urogenital-Female Clinical Impression: Threatened affecting intrauterine Patient Disposition: Home, Self-Care Time of Disposition Decision: 10:37 Prescriptions / Home Meds: No Action pantoprazole 40 mg tablet,delayed release (DR/EC) 40 mg PO DAILY insulin lispro [Humalog U-100 Insulin] 100 unit/mL solution 1 sliding scale dose subcut Q6H PRN (Reason: hyperglycemia) lamotrigine 100 mg tablet 100 mg PO Q12H metoprolol tartrate 25 mg tablet 25 mg PO Q12H desvenlafaxine succinate 100 mg tablet extended release 24 hr 100 mg PO Q24H Instructions: Threatened Miscarriage (ED) Stand Alone Forms: Portal Instructions Referrals: Mario Conway DO [Physician] - As soon as possible
--- NOTE | 2023-04-16 09:45 | US_ITS ---
The [address] [address] Patient Name: TESS CALVERT MRN: [id number] date: 1995 Sex: F Assigned Patient Location: ER Current Patient Location: ED.MAIN Accession/Order Number: [id number] Exam Date: 04/16/2023 09:56 Report Date: 04/16/2023 10:28 At the request of: JUAN MILES Procedure: US OB <= 14 weeks fetus Ultrasound OB Early : 04/16/2023 9:56 AM EST Clinical History:vaginal bleeding Comparison: None available . FINDINGS: Intrauterine gestational sac with good decidual reaction. Within the sac there is a pole and a yolk sac. MEASUREMENTS: CRL: 59 mm AGE: 12 weeks and 3 days. KULDIP: 10/26/2023 HEART RATE: 169. MATERNAL ADNEXAL REGION: Right ovary is not seen. Left ovary is grossly unremarkable in appearance. US/US OB <= 14 weeks fetus IMPRESSION: 1. Single, live intrauterine with an estimated age of 12 weeks and 3 days. by this study. Electronically authenticated by: SHIREEN MATA Date: 04/16/2023 10:28
[2023-04-16 10:06] LABS: Basophils Percent Auto 0.2 % (0.2-2.0); Eosinophils Absolute Auto 0.1 10^3/uL (0.0-0.7); Eosinophils Percent Auto 0.5 % (0.9-7.0); Hematocrit 40.3 % (36.0-48.0); Hemoglobin 12.7 g/dL (12.0-16.0); Immature Granulocytes Abs Auto 0.03 10^3/uL (0.00-0.03); Immature Granulocytes Pct Auto 0.3 % (0.0-0.5); Lymphocytes Absolute Auto 2.4 10^3/uL (1.2-3.8); Lymphocytes Percent Auto 21.9 % (20.5-60.0); Mean Corpuscular HGB Conc 31.5 g/dL (29.9-35.2); Mean Corpuscular Hemoglobin 26.3 pg (26.7-34.0); Mean Corpuscular Volume 83.6 fL (81.0-99.0); Mean Platelet Volume 9.7 fL (9.5-13.5); Monocytes Absolute Auto 0.7 10^3/uL (0.3-0.8); Monocytes Percent Auto 6.2 % (1.7-12.0); Neutrophils Absolute Auto 7.7 10^3/uL (1.4-6.5); Neutrophils Percent Auto 70.9 % (43.0-75.0); Platelet Count 268 10^3/uL (150-450); Red Blood Count 4.82 10^6/uL (4.20-5.40); Red Cell Distribution Width 15.2 % (11.0-15.0); White Blood Count 10.9 10^3/uL (4.0-11.0)
== END 2023-04-16 10:51 | disposition home or self-care (01) ==
PROVIDERS: Emergency Provider Emergency Medicine; PCP Family Medicine
DX: O20.0 Threatened abortion (principal); Z3A.12 12 weeks gestation of pregnancy; Z79.899 Other long term (current) drug therapy; Z79.4 Long term (current) use of insulin
CPT/HCPCS: 36415; 76801; 85025; 86900; 86901; 99284

== ENCOUNTER 2023-05-12 20:39 | Outpatient (REF) | payer OTHER, SELFPAY ==
--- OUTSIDE RECORDS SUMMARY | 2023-05-12 20:42 | XMS_ITS | CCD ---
Author Name Unknown Address [address] [place] [address] Organization [facility] Care Team Providers Care Historical Interpreter Name Role Phone Champ Bell MD Primary Care Provider [phone] Champ Bell Primary Care Physician Champ Bell MD Primary Care Provider CHAMP BELL Admitting Unavailable CHAMP BELL Primary Care Unavailable CHAMP BELL Referring Unavailable GREGORIO FLOYD Attending Unava ilable COLLINSY ., DR OAKES Primary Care Unavailable HOY [...] HOY ., DR OAKES Admitting Unavailable MITA .GREGORY Attending Unavailable MITA .GREGORY Admitting Unavailable GRECHELVIS .MARINA Consulting Unavailabl e HOY ., DR OAKES Primary Care Unavailable SYLVESTER PRINGLE Consulting Unavailable PARTH .MARINA Consulting Unavailabl e HAY ., DR MARTINEZ Attending Unavailable HAY [...] ., DR OAKES Admitting Unavailable ZIEBER, DR SEBLE Silva Consulting Unavailable HOY ., DR OAKES Consulting Unavailable HOY ., DR OAKES Primary Care Unavailable HOY ., DR OAKES Attending Unavailable HOY ., DR OAKES Admitting Unavailable ZIEBER, DR SEBLE Silva Consulting Unavailable HOY ., DR OAKES Consulting Unavailable HOY ., DR OAKES Primary Care Unavailable HOY ., DR OAKES Attending Unavailable HOY ., DR OAKES Admitting Unavailable BASTROP, DR MAY Silverman Consulting Unavailable CRYSTAL PENG Consulting Unavailable COLLINSY ., DR OAKES Primary Care Unavailable CRYSTAL PENG Attending Unavailable RCYSTAL PENG Admitting Unavailable Champ Bell MD Primary Care Provider [phone] Unavailable Primary Care Provider UnavailOPAL Mcneal Attending Unavailable MARIO CONWAY Referring Unavailable SHITAL FRITZ Attending Unavailable MARIO CONWAY Referring Unavailable MARIO CONWAY Attending Unavailable MARIO CONWAY Attending Unavailable SHWETHA CARTER Attending Unavailable Medications Current Medications Medication Drug Class(es) Dates Sig (Normalized) Sig (Original) acetaminophen 325 mg / HYDROcodone bitartrate 5 mg oral tablet (1 source) Opioid Agonist Start: 07-03-2020 [place] 325 mg-5 mg oral tablet 1 tab(s), Oral, q6hr for pain, 8 tab(s), Refill(s) 0 Start Date: 07/03/20 Status: Ordered aspirin 81 mg delayed release oral tablet (2 sources) Platelet Aggregation Inhibitor, Nonsteroidal Anti-inflammatory Drug take 1 tablet by mouth in the morning aspirin 81 mg Take 1 tablet (81 mg total) by mouth in the morning. 0 Active brexpiprazole 1 mg oral tablet (1 source) Atypical Antipsychotic Start: 06-05-2020 take 1 tablet by mouth once daily Rexulti 1 mg oral tablet mg tab(s), Oral, Daily, Refills(s) 0 Start Date: 06/05/20 Status: Ordered cetirizine hydrochloride 10 mg oral tablet (6 sources) Histamine-1 Receptor Antagonist take 1 tablet by mouth in the morning cetirizine (ZyrTEC) 10 mg tablet Take 1 tablet (10 mg total) by mouth in the morning. 0 Active Continuous Blood Gluc Transmit (Dexcom G6 transmitter) misc (2 sources) Start: 03-11-2023 Continuous Blood Gluc Transmit (Dexcom G6 transmitter) misc Inject 1 each under the skin if needed (as needed) 0 03/11/2023 Active 24 hr desvenlafaxine succinate 100 mg extended release oral tablet (7 sources) Serotonin and Norepinephrine Reuptake Inhibitor Start: [...] Refills(s) 0 Start Date: 06/05/20 Status: Ordered take 1 tablet by tori th every twenty-four hours in the morning desvenlafaxine (PRISTIQ) 100 mg 24 hr tablet Take 1 tablet (100 mg total) by mouth in the morning. 0 Active DEXCOM G6 SENSOR device (5 sources) Start: 04-04-2023 inject 1 [IU] by subcutaneous injection once daily DEXCOM G6 SENSOR device 1 Unit by abdominal subcutaneous route Daily at 0700. 0 04/04/2023 Active DEXCOM G6 TRANSMITTER device (5 sources) Start: 03-11-2023 DEXCOM G6 TRANSMITTER device 1 Unit by abdominal subcutaneous route continuously as needed. Use as needed for checking blood sugar with sensor 0 03/11/2023 Active 0.5 ml dulaglutide 1.5 mg/ml auto-injector (1 [...] Refills(s) 0 Start Date: 02/10/20 Status: Ordered Insulin Disposable Pump (Omnipod 5 G6 Pod, Gen 5,) misc (2 sources) Start: 03-11-2023 Insulin Disposable Pump (Omnipod 5 G6 Pod, Gen 5,) misc Take 1 each by mouth in the morning. 0 03/11/2023 Active 3 ml insulin glargine 100 unt/ml pen injector (2 sources) Insulin Analog Start: 05-07-2023 insulin glargi ne (LANTUS SOLOSTAR U-100 INSULIN) 100 unit/mL (3 mL) insulin pen Prime with 2 units then inject 50 units each evening in the presence of pump failure 15 mL 3 05/07/2023 Active 3 ml insulin lispro 100 unt/ml pen injector (3 sources) Insulin Analog Start: 05-07-2023 insulin lispro (HumaLOG) 100 unit/mL insulin pen Inject 48 Units under the skin in the morning and 48 Units at noon and 48 Units in the evening. Inject with meals. 15 mL 0 05/07/2023 Active Start: 02-10-2020 Humalog SubCut aneous, Refills(s) 0 Start Date: 02/10/20 Status: Ordered Lamictal (9 sources) Mood Stabilizer, Anti-epileptic Agent Start: 01-17-2019 Lamictal Oral, BID, Refills(s) 0 Start Date: 01/17/19 Status: Ordered take 1 tablet by mouth in the mo rning lamoTRIgine (LaMICtal) 100 mg tablet Take 1 tablet (100 mg total) by mouth in the morning. Pt to take 2 tablets daily total 200mg. 0 Active take 2 tablets by mouth in the m orning lamoTRIgine (LaMICtal) 100 MG tablet Take 2 tablets by mouth in the morning. 0 Active levothyroxine sodium 0.025 mg oral tablet (6 sources) l-Thyroxine take 1 tablet by mouth in the morning levothyroxine (SYNTHROID, LEVOTHROID) 25 MCG tablet Take 1 tablet (25 mcg total) by mouth in the morning. 0 Active M-MADHURI PLUS 27 mg iron- 1 mg tablet (5 sources) Start: 04-10-19 24 take 1 tablet by mouth in the morning M-MADHURI PLUS 27 mg iron- 1 mg tablet Take 1 tablet by mouth in the morning. 0 04/10/2023 Active metoprolol tartrate 25 mg oral tablet (7 sources) beta-Adrenergic Alfonzo take 1 tablet by mouth every twelve hours metoprolol tartrate (LOPRESSOR) 25 mg tablet Take 1 tablet (25 mg total) by mouth every 12 (twelve) hours. 0 Active OMNIPOD 5 G6 PODS, GEN 5, cartridge (5 sources) Start: 04-03-19 24 OMNIPOD 5 G6 PODS, GEN 5, cartridge 1 Unit by abdominal subcutaneous route continuously as needed. Per pump settings 0 04/03/2023 Active ondansetron 4 mg disintegrating oral tablet (5 sources) Serotonin-3 Receptor Antagonist Start: 04-04-19 24 take 1 tablet by mouth every eight hours as needed ondansetron ODT (ZOFRAN ODT) 4 mg disintegrating tablet Dissolve 1 tablet (4 mg total) on tongue every 8 (eight) hours as needed. 0 04/04/2023 Active Protonix (9 sources) Proton Pump Inhibitor Start: 01-18-20 19 Protonix Oral, Daily, Refills(s) 0 Start Date: 01/17/19 Status: Ordered take 1 tablet by tori th once daily before breakfast pantoprazole (PROTONIX) 40 mg EC tablet Take 1 tablet (40 mg total) by mouth every morning before breakfast. 0 Active pioglitazone 15 mg oral tablet (1 source) Peroxisome Proliferator Receptor alpha Agonist, Peroxisome Proliferator Receptor gamma Agonist, Thiazolidinedione take 1 tablet by mouth once daily pioglitazone (ACTOS) 15 MG tablet Take 15 mg by mouth daily . 0 Active Vit-Fe Fumarate-FA ( Plus/Iron) 27-1 MG tablet (2 sources) Start: 024 End: 025 take 1 tablet by mouth in the morning Vit-Fe Fumarate-FA ( Plus/Iron) 27-1 MG tablet Indications: Missed menses Take 1 tablet by mouth in the morning. 30 tablet 11 03/14/2023 03/13/2024 Active rosuvastatin calcium 10 mg oral tablet [...] Refills(s) 0 Start Date: 01/17/19 Status: Ordered Completed/Discontinued Medications Medication Drug Class(es) Dates Sig (Normalized) Sig (Original) 24 hr dilTIAZem hydrochloride 300 mg extended release oral tablet (7 sources) Calcium Channel Alfonzo Start: 04-04-2022 End: 04-17-2023 take 1 tablet by mouth every twenty-four hours in the morning Matzim LA 300 MG tablet sustained-release 24 hour Take 1 tablet by mouth in the morning. 0 04/04/2022 04/17/2023 Discontinued (Therapy completed) take 1 tablet by tori th every twenty-four hours in the morning CARDIZEM LA 360 mg 24 hr tablet Take 1 tablet (360 mg total) by mouth in the morning. 0 Active 24 hr metFORMIN hydrochloride 500 mg extended release oral tablet (6 sources) Biguanide Start: 10-10-2022 End: 05-07-2023 take 2 tablets by mouth every twenty-four hours in the morning, then take 2 tablets by mouth at bedtime metFORMIN XR (GLUCOPHAGE XR) 500 mg 24 hr tablet Take 2 tablets (1,000 mg total) by mouth in the morning and 2 tablets (1,000 mg total) before bedtime. 0 10/10/2022 05/07/2023 Discontinued (Alternate therapy) Start: 08-27-2021 take 2 tablets by mo uth twice daily at mealtime metFORMIN (GLUCOPHAGE-XR) 500 [...] with breakfast . 0 08/27/2021 Discontinued (Reorder) Problems Active Problems Problem Classification Problem Date [...] with hyperglycemia] Chronic Diabetes mellitus without complication (3 sources) Diabetes mellitus; Translations: [Type 2 diabetes mellitus without complications] Onset: 03-15-2022 08-26-2013 Chronic Diabetes mellitus without complication (3 sources) Other abnormal glucose; Translations: [Insulin pump present] Onset: 12-13-2021 05-07-2023 Episodic Diabetes or abnormal glucose tolerance complicating ; childbirth; or the puerperium (9 sources) and type 2 diabetes mellitus; Translations: [Pre-existing type 2 diabetes mellitus, in , second trimester] Onset: 05-07-2023 05-07-2023 Chronic Hemorrhage during ; abruptio placenta; placenta previa (2 sources) Antepartum hemorrhage; Translations: [Hemorrhage in early , unspecified] 04-17-2023 Episodic Hypertension complicating ; childbirth and the puerperium (5 sources) Pre-existing hypertension in obstetric context; Translations: [Unspecified pre-existing hypertension complicating , unspecified trimester] Onset: 05-07-2023 05-07-2023 Chronic Hypertension with complications and secondary hypertension (1 source) Hypertensive heart disease with heart failure; Translations: [HTN HEART DISEASE W/HEART FAIL] Onset: 12-13-2021 Chronic Mood disorders (1 source) Depressive disorder 01-17-2019 Chronic Other aftercare (2 sources) Follow-up status; Translations: [Encounter for follow-up examination after completed treatment for conditions other than malignant neoplasm] 04-17-2023 Episodic Other injuries and conditions due to external [...] LUMP RT BREAST OVRLPNG QUADRNTS] Onset: 11-29-2021 Unclassified (1 source) t2dm Onset: 05-07-2023 Past or Other Problems Problem Classification Problem Date Documented Da te Episodic/Chronic Deficiency and other anemia (1 source) Anemia, unspecified; Translations: [ANEMIA UNSPECIFIED] Onset: 12-13-2021 Episodic E Codes: Overexertion (1 [...] Test Name Value Interpretation Reference Range Facility CBC without diffon Hematocrit (Bld) [Volume fraction] 40.1 % [facility] Hemoglobin (Bld) [Mass/Vol] 12.8 g/dL [facility] Platelets (Bld) [#/Vol] 305 10*3/uL [facility] Rbc Mcv (Fl) By Automated Count 82.2 [facility] Free Cell DNAon 2023 Free Cell Dna no call [facility] HIV 1&2 AB/AG Screen (P24 AG )on 04-01-2023 HIV 1&2 AB/AG Negative [facility] Hemoglobin A1con 04-01-2023 HbA1c (Bld) [Mass fraction] 7.9 % Abnormal 4.0 - 6.0 % [facility] Interpretation and review of laboratory results Abnormal [facility] Hepatitis B surface antigeno n 04-01-2023 Hepatitis B Surface Antigen Negative [facility] No Panel Informationon 04-01 [facility] Rubella IGG immune statuson 04-01-2023 Rubella immune IgG immune [facility] Syphilis Total(Unknown Syphi lis Status)on 04-01-2023 Syphilis Non-Reactive [facility] TSHon 04-01-2023 Thyroid Stimulating (3Rd Generation) Hormone/ Tsh 1.051 [facility] TSH Qn 1.05 m[IU]/L [facility] Type and screenon 04-01-2023 Abo/Rh(D) Positive [facility] Urine Cultureon 04-01-2023 Bacteria identified Cx Nom (U) no growth [facility] Covid-19 PCR ([facility])on 05-09 SARS-CoV-2 (COVID-19) RNA EZEKIEL+probe Ql (Unsp spec) Not detected Normal NOT DETECTED [facility] Comment on above: Result Comment: This test is not yet approved or cleared by the [place] FDA. When there are no FDA-approved or cleared tests available, and other criteria are met, FDA can make tests available under an emergency access mechanism called an Emergency Use Authorization (EUA). The EUA for this test is supported by the Hot Die Picker of Health and Human Service's (HHS's) declaration [...] consistent with SARS-CoV-2. Performed By: #### C VDTB #### [facility] [address] [place] [address] Dr. Rosemary Ames GROUP A STREP CULTUREon 05-09 S. pyogenes Ag Ql (Unsp spec) Culture Observations: NEGATIVE FOR GROUP A STREPTOCOCCUS. Normal [facility] Comment on above: Performed By: #### T 7, LIPID, TSH, CMADM, BNP, CMP #### [facility] [address] [place] [address] Dr. Rosemary Ames INFLUENZA A AND B AGon 05-31 INFLUANEGH SEE BELOW Normal [facility] Comment on above: Result Comment: Nega tive for Flu A protein angiten. Infection due to Flu A cannot be ruled out. Flu A angiten in the sample may be below the detection limit of the test. Performed By: #### I NFLUAB #### [facility] [address] [place] [address] Dr. Rosemary Ames INFLUBNEGH SEE BELOW Normal [facility] Comment on above: Result Comment: Nega tive for Flu B protein antigen. Infection due to Flu B cannot be ruled out. Flu B antigen in the sample may be below the detection limit of the test. Performed By: #### I NFLUAB #### [facility] [address] [place] [address] Dr. Rosemary Ames INFLUENZA A AG Negative Normal NEGATIVE SEE COMMENT [facility] Comment on above: Performed By: #### I NFLUAB #### [facility] [address] [place] [address] Dr. Rosemary Ames INFLUENZA B AG Negative Normal NEGATIVE SEE COMMENT [facility] Comment on above: Performed By: #### I NFLUAB #### [facility] [address] [place] [address] Dr. Rosemary Ames STREPT SCREENon 05-31-2022 STREP SCREEN A Negative Normal NEGATIVE [facility] Comment on above: Performed By: #### E RUR #### [facility] [address] [place] [address] Dr. Rosemary Ames SYMPTOMATIC COVID-19 ANTIGEN on 05-31-2022 EUA Statement SEE BELOW Normal [facility] Comment on above: Result Comment: This test [...] 7, LIPID, TSH, CMADM, BNP, CMP #### [facility] [address] [place] [address] Dr. Rosemary Ames SARS-CoV-2 (COVID-19) RNA EZEKIEL+probe Ql (Unsp spec) Negative Normal NEGATIVE [facility] Comment on above: Performed By: #### T 7, LIPID, TSH, CMADM, BNP, CMP #### [facility] [address] [address] [address] Rosemary Ames ECHOCARDIO M/2D COMPLETEon 0 04-10-2022 ECHOCARDIO M/2D COMPLETE Patient: TESS ASHLEY Exam Date: 04/10/2022 : 1995 Gender:F Ordering : DR CHAMP BELL . Admission #: [id number] Family : Order #: [id number] CLICK HERE TO VIEW EXAM ECHOCARDIOGRAM REPORT [...] Robert Moeller M.D. on 04/10/2022 at 17:40 [facility] CBC AUTO DIFFon 03-13-2022 BASO # 0.0 103/ul Normal 0.0-0.1 [facility] Comment on above: Performed By: #### A 1C #### [facility] [address] [place] [address] Dr. Rosemary Ames Basophils/100 WBC (Bld) 0.3 % Normal 0.2-2.0 [facility] Comment on above: Performed By: #### A 1C #### [facility] [address] [place] [address] Dr. Rosemary Ames EO # 0.0 103/ul Normal 0.0-0.7 [facility] Comment on above: Performed By: #### A 1C #### [facility] [address] [place] [address] Dr. Rosemary Ames Eosinophils/100 WBC (Bld) 0.5 % Critically low 0.9-7.0 [facility] Comment on above: Performed By: #### A 1C #### [facility] [address] [place] [address] Dr. Rosemary Ames Erythrocyte distribution width (RBC) [Ratio] 14.5 % Normal 11.0-15.0 [facility] Comment on above: Performed By: #### A 1C #### [facility] [address] [place] [address] Dr. Rosemary Ames Hematocrit (Bld) [Volume fraction] 39.7 % Normal 36.0-48.0 [facility] Comment on above: Performed By: #### A 1C #### [facility] [address] [place] [address] Dr. Rosemary Ames Hemoglobin (Bld) [Mass/Vol] 12.9 g/dL Normal 12.0-16.0 [facility] Comment on above: Performed By: #### A 1C #### [facility] [address] [place] [address] Dr. Rosemary Ames IG # 0.03 10e3/ul Normal 0.00-0.03 [facility] Comment on above: Performed By: #### A 1C #### [facility] [address] [place] [address] Dr. Rosemary Ames IG % 0.4 % Normal 0.0-0.5 [facility] Comment on above: Performed By: #### A 1C #### [facility] [address] [place] [address] Dr. Rosemary Ames LYMPH # 0.5 103/ul Critically low 1.2-3.8 [facility] Comment on above: Performed By: #### A 1C #### [facility] [address] [place] [address] Dr. Rosemary Ames Lymphocytes/100 WBC (Bld) 6.6 % Critically low 20.5-60.0 [facility] Comment on above: Performed By: #### A 1C #### [facility] [address] [place] [address] Dr. Rosemary Ames MANUAL DIFF REQ NO Normal [facility] Comment on above: Performed By: #### A 1C #### [facility] [address] [place] [address] Dr. Rosemary Ames MCH (RBC) [Entitic mass] 25.1 pg Critically low 26.7-34.0 [facility] Comment on above: Performed By: #### A 1C #### [facility] [address] [place] [address] Dr. Rosemary Ames MCHC (RBC) [Mass/Vol] 32.5 g/dL Normal 29.9-35.2 [facility] Comment on above: Performed By: #### A 1C #### [facility] [address] [place] [address] Dr. Rosemary Ames MCV (RBC) [Entitic vol] 77.2 fL Critically low 81.0-99.0 [facility] Comment on above: Performed By: #### A 1C #### [facility] [address] [place] [address] Dr. Rosemary Ames MONO # 0.7 103/ul Normal 0.3-0.8 [facility] Comment on above: Performed By: #### A 1C #### [facility] [address] [place] [address] Dr. Rosemary Ames Monocytes/100 WBC (Bld) 9.3 % Normal 1.7-12.0 [facility] Comment on above: Performed By: #### A 1C #### [facility] [address] [place] [address] Dr. Rosemary Ames NEUT # 6.2 103/ul Normal 1.4-6.5 [facility] Comment on above: Performed By: #### A 1C #### [facility] [address] [place] [address] Dr. Rosemary Ames Neutrophils/100 WBC (Bld) 82.9 % Critically high 43.0-75.0 [facility] Comment on above: Performed By: #### A 1C #### [facility] [address] [place] [address] Dr. Rosemary Ames Platelet mean volume (Bld) [Entitic vol] 9.8 fL Normal 9.5-13.5 [facility] Comment on above: Performed By: #### A 1C #### [facility] [address] [place] [address] Dr. Rosemary Ames PLT 246 103/ul Normal 150-450 [facility] Comment on above: Performed By: #### A 1C #### [facility] [address] [place] [address] Dr. Rosemary Ames RBC 5.14 106/ul Normal 4.20-5.40 [facility] Comment on above: Performed By: #### A 1C #### [facility] [address] [place] [address] Dr. Rosemary Ames WBC 7.4 103/ul Normal 4.0-11.0 [facility] Comment on above: Performed By: #### A 1C #### [facility] [address] [place] [address] Dr. Rosemary Ames Covid-19 PCR ([facility])on SARS-CoV-2 (COVID-19) RNA EZEKIEL+probe Ql (Unsp spec) Not detected Normal NOT DETECTED [facility] Comment on above: Result Comment: When [...] for this test is supported by the Hot Die Picker of Health and Human Service's declaration that [...] used). Performed By: #### A 1C #### [facility] [address] [place] [address] Dr. Rosemary Ames D-DIMERon 03-13-2022 D-DIMER 0.26 mg/L FEU Normal <=0.59 [facility] Comment on above: Performed By: #### T 7, LIPID, TSH, CMADM, BNP, CMP #### [facility] [address] [place] [address] Dr. Rosemary Ames D-DIMER COMMENTS SEE BELOW Normal [facility] Comment on above: Result Comment: Incr eases [...] 7, LIPID, TSH, CMADM, BNP, CMP #### [facility] [address] [place] [address] Dr. Rosemary Ames ER URINE PROFILEon 3 Bilirubin Ql (U) Negative Normal NEGATIVE [facility] Comment on above: Performed By: #### E RUR #### [facility] [address] [place] [address] Dr. Rosemary Ames Clarity (U) CLEAR Normal CLEAR [facility] Comment on above: Performed By: #### E RUR #### [facility] [address] [place] [address] Dr. Rosemary Ames Color (U) LT. YELLOW Normal YELLOW [facility] Comment on above: Performed By: #### E RUR #### [facility] [address] [place] [address] Dr. Rosemary Ames ERUAHD A micrscopic examination will be performed if indicated. Normal [facility] Comment on above: Performed By: #### E RUR #### [facility] [address] [place] [address] Dr. Rosemary Ames Glucose Ql (U) Negative Normal NEGATIVE [facility] Comment on above: Performed By: #### E RUR #### [facility] [address] [place] [address] Dr. Rosemary Ames Hemoglobin Ql (U) Negative Normal NEGATIVE [facility] Comment on above: Performed By: #### E RUR #### [facility] [address] [place] [address] Dr. Rosemary Ames Ketones Ql (U) Negative Normal NEGATIVE [facility] Comment on above: Performed By: #### E RUR #### [facility] [address] [place] [address] Dr. Rosemary Ames LEUKOCYTES Negative Normal NEGATIVE [facility] Comment on above: Performed By: #### E RUR #### [facility] [address] [place] [address] Dr. Rosemary Ames Nitrite Ql (U) Negative Normal NEGATIVE [facility] Comment on above: Performed By: #### E RUR #### [facility] [address] [place] [address] Dr. Rosemary Ames pH (U) 6.0 [pH] Normal 5-9 [facility] Comment on above: Performed By: #### E RUR #### [facility] [address] [place] [address] Dr. Rosemary Ames SPEC GRAVITY 1.015 Normal 1.005-<=1.025 [facility] Comment on above: Performed By: #### E RUR #### [facility] [address] [place] [address] Dr. Rosemary Ames UA PROTEIN Negative Normal NEGATIVE/ TRACE [facility] Comment on above: Performed By: #### E RUR #### [facility] [address] [place] [address] Dr. Rosemary Ames UR MICRO IND NOT INDICATED Normal [facility] Comment on above: Performed By: #### E RUR #### [facility] [address] [place] [address] Dr. Rosemary Ames Urobilinogen Qn (U) 0.2 {Vincent'U}/dL Normal 0.2 - 1. 0 [facility] Comment on above: Performed By: #### E RUR #### [facility] [address] [place] [address] Dr. Rosemary Ames INFLUENZA A AND B AGon 03-13 [facility] SEE BELOW Normal [facility] Comment on above: Result Comment: Nega tive for Flu A protein angiten. Infection due to Flu A cannot be ruled out. Flu A angiten in the sample may be below the detection limit of the test. Performed By: #### E RUR #### [facility] [address] [place] [address] Dr. Rosemary Ames INFLUBNEGH SEE BELOW Normal [facility] Comment on above: Result Comment: Nega tive for Flu B protein antigen. Infection due to Flu B cannot be ruled out. Flu B antigen in the sample may be below the detection limit of the test. Performed By: #### E RUR #### [facility] [address] [place] [address] Dr. Rosemary Ames INFLUENZA A AG Negative Normal NEGATIVE SEE COMMENT [facility] Comment on above: Performed By: #### E RUR #### [facility] [address] [place] [address] Dr. Rosemary Ames INFLUENZA B AG Negative Normal NEGATIVE SEE COMMENT [facility] Comment on above: Performed By: #### E RUR #### [facility] [address] [place] [address] Dr. Rosemary Ames LACTATE/LACTIC ACIDon 2022 Lactate [Moles/Vol] 2.0 mmol/L Critically high 0.4-1.9 [facility] Comment on above: Performed By: #### A 1C #### [facility] [address] [place] [address] Dr. Rosemary Ames LIPASEon 03-13-2022 Lipase [Catalytic activity/Vol] 79.0 U/L Normal 73.0-393.0 [facility] Comment on above: Performed By: #### A 1C #### [facility] [address] [place] [address] Dr. Rosemary Ames PREG HCG QUALon 03-13-2022 , QUAL Negative Normal NEGATIVE [facility] Comment on above: Performed By: #### A 1C #### [facility] [address] [place] [address] Dr. Rosemary Ames PROF 14(COMP METB)on 023 Albumin [Mass/Vol] 4.1 g/dL Normal 3.4-5.0 [facility] Comment on above: Performed By: #### A 1C #### [facility] [address] [place] [address] Dr. Rosemary Ames Albumin/Globulin [Mass ratio] 1.1 {ratio} Normal [facility] Comment on above: Performed By: #### A 1C #### [facility] [address] [place] [address] Dr. Rosemary Ames ALP [Catalytic activity/Vol] 77 U/L Normal 46-116 [facility] Comment on above: Performed By: #### A 1C #### [facility] [address] [place] [address] Dr. Rosemary Ames ALT [Catalytic activity/Vol] 149 U/L Critically high 14-59 [facility] Comment on above: Performed By: #### A 1C #### [facility] [address] [place] [address] Dr. Rosemary Ames Anion gap [Moles/Vol] 16.0 mmol/L Normal [facility] Comment on above: Performed By: #### A 1C #### [facility] [address] [address] [address] Rosemary Ames AST [Catalytic activity/Vol] 82 U/L Critically high 15-37 [facility] Comment on above: Performed By: #### A 1C #### [facility] [address] [address] [address] Roesmary Ames Bilirubin [Mass/Vol] 1.0 mg/dL Normal 0.2-1.0 [facility] Comment on above: Performed By: #### A 1C #### [facility] [address] [address] [address] Rosemary Ames Calcium [Mass/Vol] 9.1 mg/dL Normal 8.5-10.1 [facility] Comment on above: Performed By: #### A 1C #### [facility] [address] [address] [address] Rosemary Ames Chloride [Moles/Vol]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 Mouth every day. PATIENT EDUCATION INFORMATION: Instructions: Head Injury, Adult; Cervical Sprain Follow up: With: Address: When: Champ Bell [facility] [facility], [place] [address] Business (1) In 3 days DIAGNOSIS: CHI (closed head injury); Cervical strain Normal [facility] ED Note-Nursingon 08-25-2021 ED Note-Nursing Pt ambulated to restroom independently without incidence. Normal [facility] ED Note-Physicianon 08-26-19 ED Note-Physician Basic Information Time Seen: Melina AMADO Tyler OjedaKristi 08/24/2021 22:45 Chief Complaint Pt arrives to ed via [facility] with c/o neck pain, nausea, headache and [...] 15 mg/mL Inj, 15 mg, IV Push [id number] [F], 1000 mL, IV Zofran 4 mg/2 mL Injection, 4 mg, IV Push Disposition Plan Discharge Prescription List Prescriptions No active prescription medications Follow-up With When Contact Information Champ Bell In 3 days [address] [facility] [place] [address] [place] [address]- Business (1) Additional Instructions: Patient Education Head [...] oral tablet, Oral, qAM Lamictal, Oral, BID Oberlin 325 mg-5 mg oral tablet, 1 tab(s), [...] available. Diagnostic (more content not included)... Normal [facility] Comment on above: Result Comment: Elec [...] Ask your health care provider for a vumx-pc-seno plan for gradually returning to activities. ? [...] your friends, family, a trusted colleague, and hand woodworking sander about your injury, symptoms, and restrictions. Have them watch for any new or worsening problems. General instructions ? Take ffhs-esx-ukbaeaz and prescription medicines only as told by [...] how mu (more content not included)... Normal [facility] ED Patient Summaryon 022 ED Patient Summary [address] [address] Patient Discharge Instructions Person Information Name: TESS ASHLEY Age: 25 Years Arrival Date: 08/24/2021 22:40:28 Discharge Diagnosis: CHI (closed head injury); Cervical strain Primary Care Physician: Champ Bell MD Provider Information Primary Provider: Tyler Summers DO Advanced Sliver Cutter:Lizett The exam and treatment you received in the Emergency Department were for an urgent problem and are not intended as complete care. It is important that you follow up with a doctor, nurse practitioner, or physician?s construction administrative assistant for ongoing care. If your symptoms become worse or you do not improve as expected and you are unable to reach your usual health care provider, you should return to the Emergency Department. We are available 24 hours a day. TESS ASHLEY has been given the following list of patient education materials, prescriptions and follow-up instructions: Follow-up Instructions: With: Address: When: Champ Ray [address] [place] [address], [facility] [[email or web address] [place] [address] Business (1) In 3 days In the event that this physician does not participate in your insurance network, please consult with your insurance company to find a nearby participating provider. Patient Education Materials: Head Injury, Adult; Cervical Sprain A MESSAGE TO ALL PATIENTS REGARDING OPIOIDS PRESCRIPTION OPIOIDS: WHAT YOU NEED TO KNOW Prescription opioids can be used to help relieve dqfzjysn-un-ojromm pain and are often prescribed following a [...] be struggling with addiction, tell your health nurse care manager and ask for guidance or call [facility]?S National Helpline at 2-019-094-QHEE. (more content not included)... Normal [facility] EMS Documentationon 08-26-19 EMS Documentation [id number]# 1.00CD:127 Normal [facility] RAD - Preliminary Cat Scan R eporton 08-25-2021 RAD - Preliminary Cat Scan Report [id number] .00CD:127 Normal [facility] RAD - Preliminary Cat Scan Report [id number] .00CD:127 Normal [facility] SEROLOGYOrdered By: Fabian echeverria on 08-24-2021 Beta hCG Ql Negative (08/24/21 11:29 PM) Normal [facility] Man Sero XR KNEE LT 4V or >on XR KNEE LT 4V or > EXAM: [...] by: SYLVESTER PRINGLE Date: 2021-08-15 16:18 Normal [facility] US KIDNEYS BLADDERon 022 US KIDNEYS [...] MAY PILLAI Date: 2021-06-13 10:16 Normal [facility] Testosterone Free and Total by LC-MS/MSon 02-04-2021 Sex Hormone Binding Globulin 11 nmol/L Low 30-135 [facility] Comment on above: Result Comment: REFE RENCE INTERVAL: Sex Hormone Binding Globulin Access complete set of age- and/or gender-specific reference intervals for this test in the [facility] Test Directory (Yotta280). Testosterone, Free LC-MS/MS 9.1 pg/mL Critically high 0.8-7.4 [facility] Comment on above: Result Comment: [...] reference intervals for this test in the [facility] Test Directory (Yotta280). This test was developed and its performance characteristics determined by [facility]. It has not been cleared or approved by the US Food and Drug Administration. This test was performed in a CLIA certified laboratory and is intended for clinical purposes. Performed By: [facility] [address] [place] [id number] Adult Basic Education Instructor: Kiersten Jones MD Testosterone, LC-MS/MS 35 ng/dL Normal 9-55 [facility] Comment on above: Result Comment: Tota l Testosterone, Females 18 years and older Premenopausal 9-55 ng/dL Postmenopausal 5-32 ng/dL REFERENCE INTERVAL: Testosterone, LC-MS/MS Access complete set of age- and/or gender-specific reference intervals for this test in the [facility] Test Directory (Yotta280). This test was developed and its performance characteristics determined by [facility]. It has not been cleared or approved by the US Food and Drug Administration. This test was performed in a CLIA certified laboratory and is intended for clinical purposes. Cortisol Daljit 01-31-2021 Cortisol AM 11.0 ug/dL Normal 6.2-19.4 [facility] Comment on above: Performed By: #### C AKSHAT #### [facility] [address] [place] [id number] Vital Signs Date Time Vital Sign Value Performing Clinician Facility 05-07-2023 15:08-0500 Body height 152.4 cm Opal Levigan FINGER GRIP MACHINE OPERATOR-CANDY SPREADER Work Phone: [facility] 05-07-2023 15:08-0500 Body mass index (BMI) [Ratio] 48.43 kg/m2 Opallubna Levigan FINGER GRIP MACHINE OPERATOR-CANDY SPREADER Work Phone: [facility] 05-07-2023 15:08-0500 Body weight 112.49 kg Opal Levigan FINGER GRIP MACHINE OPERATOR-CANDY SPREADER Work Phone: [facility] 05-07-2023 15:08-0500 Diastolic blood pressure 64 mm[Hg] Opal Heath FINGER GRIP MACHINE OPERATOR-CANDY SPREADER Work Phone: [facility] 05-07-2023 15:08-0500 Heart rate 111 /min Opal Heath FINGER GRIP MACHINE OPERATOR-CANDY SPREADER Work Phone: [facility] 05-07-2023 15:08-0500 Systolic blood pressure 136 mm[Hg] Opallubna Heath FINGER GRIP MACHINE OPERATOR-CANDY SPREADER Work Phone: [facility] 05-07-2023 14:16-0500 Body height 152.4 cm Tt Ed [facility] 05-07-2023 14:16-0500 Body mass index (BMI) [Ratio] 48.63 kg/m2 Tt Ed [facility] 05-07-2023 14:16-0500 Body weight 112.95 kg [facility] Ed [facility] 04-17-2023 10:25-0500 Body mass index (BMI) [Ratio] 47.85 kg/m2 Mario Conway DO Work Phone: [facility] 04-17-2023 10:25-0500 Body weight 111.13 kg Mario Zoraida DO Work Phone: [facility] 04-17-2023 10:25-0500 Diastolic blood pressure 76 mm[Hg] Mario Zoraida DO Work Phone: [facility] 04-17-2023 10:25-0500 Systolic blood pressure 122 mm[Hg] Mario Zoraida DO Work Phone: [facility] 08-27-2021 11:09-0400 Body height 152.4 cm Gregorio Floyd MD Work Phone: [facility] 08-27-2021 11:09-0400 Body mass index (BMI) [Ratio] 46.68 kg/m2 Gregorio Floyd MD Work Phone: [facility] 08-27-2021 11:09-0400 Body weight 108.41 kg Gregorio Floyd MD Work Phone: [facility] 08-27-2021 11:09-0400 Diastolic blood pressure 86 mm[Hg] Gregorio Floyd MD Work Phone: [facility] 08-27-2021 11:09-0400 Heart rate 97 /min Gregorio Floyd MD Work Phone: [facility] 08-27-2021 11:09-0400 Systolic blood pressure 125 mm[Hg] Gregorio Floyd MD Work Phone: [facility] 08-25-2021 14:00-0400 Diastolic blood pressure 81 mm[Hg] Tyler Melina [facility] 08-25-2021 14:00-0400 Heart rate 85 /min Tyler Melina [facility] 08-25-2021 14:00-0400 Mean blood pressure 100 mm[Hg] Tyler Melina [facility] 08-25-2021 14:00-0400 Respiratory rate 16 /min Tyler Melina [facility] 08-25-2021 14:00-0400 SaO2% (BldA) [Mass fraction] 98 % Tyler Melina [facility] 08-25-2021 14:00-0400 Systolic blood pressure 138 mm[Hg] Tyler Melina [facility] 08-25-2021 01:00-0400 Diastolic blood pressure 85 mm[Hg] Tyler Melina [facility] 08-25-2021 01:00-0400 Heart rate 87 /min Tyler Melina [facility] 08-25-2021 01:00-0400 Respiratory rate 16 /min Tyler Melina [facility] 08-25-2021 01:00-0400 SaO2% (BldA) [Mass fraction] 98 % Tyler Melina [facility] 08-25-2021 01:00-0400 Systolic blood pressure 140 mm[Hg] Tyler Melina [facility] 08-25-2021 00:00-0400 Diastolic blood pressure 89 mm[Hg] Tyler Melina [facility] 08-25-2021 00:00-0400 Heart rate 95 /min Tyler Melina [facility] 08-25-2021 00:00-0400 SaO2% (BldA) [Mass fraction] 97 % Tyler Melina [facility] 08-25-2021 00:00-0400 Systolic blood pressure 149 mm[Hg] Tyler Melina [facility] 08-24-2021 22:50-0400 Body temperature 100.22 [degF] Tyler Melina [facility] Encounters Encounter Date Encounter Type Care Provider Facility Start: 05-12-2023 End: 05-12-2023 ambulatory SHWETHA BRENNEREY Not Available Start: 05-08-2023 Orders Only Queta Zazueta [facility] Comment on above: Type 2 diabetes nza itus in , second trimester (Primary Dx) Start: 05-07-2023 End: 05-07-2023 Office outpatient visit 25 minutes Opal Heath FINGER GRIP MACHINE OPERATOR-CANDY SPREADER Work Phone: [facility] Comment on above: Type 2 diabetes naz itus in , second trimester (Primary Dx); Insulin pump in place; HTN in , chronic Start: 05-07-2023 End: 05-07-[address] Work Phone: [facility] Comment on above: Type 2 diabetes naz itus in , second trimester (Primary Dx); Pre-existing type 2 diabetes mellitus during in first trimester Start: 04-23-2023 Chart abstracting Opal falk FINGER GRIP MACHINE OPERATOR-CANDY SPREADER Work Phone: [facility] Start: 04-23-2023 Telephone encounter Danyell Ortiz RN Sc tern[facility] Start: 04-17-2023 End: 04-17-2023 ambulatory MARIO ZORAIDA Not Available Start: 04-17-2023 End: 04-17-2023 Office outpatient visit 15 minutes Mario Zoraida DO Work Phone: [facility] Comment on above: Bleeding in early pr egnancy; Follow-up exam Start: 04-14-2023 End: 04-14-2023 ambulatory MARIO ZORAIDA Not Available Start: 03-14-2023 End: 03-14-2023 ambulatory MARIO ZORAIDA Not Available Start: 05-31-2022 End: 05-31-2022 ambulatory [...] Start: 08-27-2021 End: 08-27-2021 ambulatory CHAMP BELL [facility] Start: 08-27-2021 End: 08-27-2021 Office outpatient new 60 minutes Champ Bell MD Work Phone: [facility] Comment on above: Type 2 diabetes naz itus with hyperglycemia, unspecified whether radio news anchor insulin use (HCC) (Primary Dx); Thyroid disorder; Hair loss Start: 08-24-2021 End: 08-25-2021 Emergency department patient visit Tyler Summers [facility] Start: 08-15-2021 End: 08-15-2021 ambulatory GREGORY FAN . Facility:[facility] Start: 06-13-2021 End: 06-14-[address] CHAMP BELL . Facility:[facility] Start: 05-04-2021 Transcribe Orders Champ Bell MD Work Phone: [facility] Comment on above: Thyroid disorder (Pr imary Dx); Hair loss Procedures Date Procedure Procedure Detail Performing Clinician Start: 04-01-2023 Antibody screen Bebe Heath FINGER GRIP MACHINE OPERATOR-CANDY SPREADER Work Phone: Start: 04-01-2023 Bacteria identified in Urine by Culture Not In System Ref Prov Start: 04-01-2023 FREE CELL DNA (NON-[place]) Not In System Ref Prov Start: 04-01-2023 Hemoglobin glycosyla lincoln a1c Scanning Provider External Start: 04-01-2023 HIV 1&2 AB/AG SCREEN (P24 AG) Not In System Ref Prov Start: 04-01-2023 Iaad ia hepatitis b surface antigen Not In System Ref Prov Start: 04-01-2023 Syphilis test non-treponemal antibody qual Not In System Ref Prov Start: 04-01-2023 TYPE AND SCREEN Not In System Ref Prov Start: 08-27-2021 End: 08-27-2021 Gluc bld gluc mntr dev cleared fda spec home use Gregorio Floyd MD Work Phone: None (qualifier value) Tyler Summers Plan of Treatment Date Care Activity Detail Author Start: 05-07-2024 Adult BMI Screening Adult BMI Screen ing [facility] Start: 05-07-2024 Tobacco Screening Tobacco Screening [facility] Start: 05-07-2024 End: 05-07-2024 US MFM with or without consult US MFM with or without consult Imaging Routine Type 2 diabetes mellitus in , second trimester Expected: 05/07/2024 (Approximate), Expires: 05/07/2024 [facility] Work Phone: Comment on above: Expected: 05/07/2024 (Approximate), Expires: 05/07/2024 Start: 06-11-2023 End: 06-11-2023 Patient encounter procedure 06/11/2023 1:00 PM EDT Appointment [facility] [address] [place] [address] [facility] Start: 05-20-2023 End: 05-20-2023 Telemedicine consultation with patient 05/20/2023 8:00 AM EDT Telemedicine [facility] [address] [place] [address] Leana Burr MD [address] [place] [address] [facility] Start: 05-12-2023 End: 05-12-2023 Patient encounter procedure 05/12/2023 8:30 AM EST Routine [facility] [address] [place] [address] Shwetha Carter PA [address] [address] [facility] Start: 05-07-2023 End: 05-07-2023 Patient encounter procedure 05/07/2023 3:00 PM EST Office Visit [facility] [address] [place] [phone] Opal Heath, [facility] [address] [place] [address] [facility] Start: 05-07-2023 End: 05-07-2023 ambulatory 05/07/2023 1:00 PM EST Support Visit [facility] [address] [place] [phone] Shital Fritz, RD [address] [facility], [address] [place] [address] [facility] Start: 11-08-2022 Influenza vaccination Influenza Vacc ine [facility] Start: 11-27-2021 End: 11-27-2021 Patient encounter procedure 11/27/2021 Office Visit Endocrinology Gregorio Floyd MD [address] [place] [id number] [facility] Start: 11-27-2021 Hemoglobin A1c measurement A1C [facility] Start: 11-08-2021 Influenza vaccination Sequenti al Influenza Vaccine (Season Ended) [facility] Start: 06-25-2021 End: 06-25-2021 Patient encounter procedure 06/25/2021 Office Visit Endocrinology Gregorio Floyd MD [address] [place], [place] [id number] [facility] Start: 11-08-2020 Influenza vaccination Sequenti al Influenza Vaccine (#1) [facility] Start: 11-14-2015 Screening for malign ant neoplasm of cervix Pap Smear [facility] Start: 2013 DTaP,Tdap and Td Vaccines (1 - Tdap) DTaP,Tdap and Td Vaccines (1 - Tdap) [facility] Start: 2012 Adult BMI Follow Up Plan Adult BMI Follow Up Plan [facility] Start: 2012 Adult BMI Screening Adult BMI Screen ing [facility] Start: 2012 Diabetic foot examination Diabetic Foot Exam [facility] [facility] Start: 2012 Hepatitis C screening Hepatitis C Sc reening [facility] Start: 2009 HIV screening HIV Screening [facility] Start: 2006 Depression screening using PHQ-9 (Patient Health Questionnaire 9) score [facility] Start: 2006 Tobacco Screening Tobacco Screening [facility] Start: 2005 DTaP,Tdap and Td Vaccines (5 - Tdap) DTaP,Tdap and Td Vaccines (5 - Tdap) [facility] Start: 2004 Diabetic foot examination Foot Exam [facility] Start: 2004 Microalbumin measurement, urine, quantitative Urine Microalbumin [facility] Start: 2004 Ophthalmic examinati on and evaluation Ophthalmology Exam [facility] Start: 2000 Pneumococcal Vaccine : Ped or At-Risk (1 - PCV) Pneumococcal Vaccine: Ped or At-Risk (1 - PCV) [facility] Start: 11-14-1999 COVID-19 Vaccine (#1) COVID-19 Vacci ne (#1) [facility] Start: 11-14-1999 COVID-19 Vaccine (1) COVID-19 Vaccin e (1) [facility] Start: 1997 History and physical examination, annual for health maintenance Wellness Visit [facility] Start: 1994 Glaucoma screening Diabetic Op hthalmology Exam [facility] Start: 1994 Screening for malign ant neoplasm of cervix Pap Smear [facility] Start: 1994 Tetanus vaccination Tetanus: Every 1 0yrs [facility] Start: 1994 Urine screening for protein Urine Microalbumin [facility] End: 08-27-2022 C peptide [Mass/volume] in Serum or Plasma C-peptide Lab Routine Type 2 diabetes mellitus with hyperglycemia, unspecified whether radio news anchor insulin use (HCC) 1 Occurrences starting 08/27/2021 until 08/27/2022 [facility] Comment on above: 1 Occurrences starti ng 08/27/2021 until 08/27/2022 End: 08-27-2022 Glucose [Mass/volume] in Serum or Plasma Glucose Lab Routine Type 2 diabetes mellitus with hyperglycemia, unspecified whether radio news anchor insulin use (HCC) 1 Occurrences starting 08/27/2021 until 08/27/2022 [facility] Comment on above: 1 Occurrences starti ng 08/27/2021 until 08/27/2022 Hepatic function 200 0 panel - Serum or Plasma Hepatic function panel Lab Routine Type 2 diabetes mellitus with hyperglycemia, unspecified whether [facility] insulin use (HCC) Ordered: 08/27/2021 [facility] Comment on above: Ordered: 08/27/2021 End: 08-27-2022 Islet cell antibody measurement Anti-Islet Cell (GAD65) Antibody Lab Routine Type 2 diabetes mellitus with hyperglycemia, unspecified whether radio news anchor insulin use (HCC) 1 Occurrences starting 08/27/2021 until 08/27/2022 [facility] Comment on above: 1 Occurrences starti ng 08/27/2021 until 08/27/2022 End: 08-27-2022 Lipid 1996 panel - Serum or Plasma Lipid Panel Lab Routine Type 2 diabetes mellitus with hyperglycemia, unspecified whether mcfp insulin use (HCC) 1 Occurrences starting 08/27/2021 until 08/27/2022 [facility] Comment on above: 1 Occurrences starti ng 08/27/2021 until 08/27/2022 Microalbumin measurement, urine, quantitative Microalbumin/Creatinine Ratio, UR Random Lab Routine Type 2 diabetes mellitus with hyperglycemia, unspecified whether radio news anchor insulin use (HCC) Ordered: 08/27/2021 [employer] Work Phone: Comment on above: Ordered: 08/27/2021 Payers Date Payer Category Payer Medicaid [id number] 1994 Unknown [id number] 2.16. [id number] 1994 Unknown [id number] 2.16.84 0.1.125175.3.579.2.593 1994 Unknown [id number] 2.16.84 0.1.522061.3.579.2.593 1994 Unknown [id number] 2.16.84 0.1.039250.3.579.2.593 1994 Unknown [id number] 2.16.84 0.1.665031.3.579.2.593 1994 Unknown [id number] 2.16.84 0.1.021120.3.579.2.593 1994 Unknown [id number] 2.16.84 0.1.350736.3.579.2.593 1994 Unknown [id number] 2.16.84 0.1.815165.3.579.2.593 1994 Unknown [id number] 2.16.84 0.1.698673.3.579.2.593 1994 Unknown [id number] 2.16.84 0.1.191104.3.579.2.593 1994 Unknown [id number] 2.16.84 0.1.161639.3.579.2.593 1994 Unknown [id number] 2.16.84 0.1.911899.3.579.2.593 1994 Unknown [id number] 2.16.84 0.1.027884.3.579.2.593 1994 Unknown [id number] 2.16.84 0.1.085995.3.579.2.593 1994 Unknown [id number] 2.16.8 40.1.706982.3.579.2.1286 1994 Unknown [id number] 2.16.8 40.1.896332.3.579.2.1286 1994 Unknown [id number] 2.16.84 0.1.879093.3.579.2.1259 1994 Unknown [id number] 2.16.84 0.1.711383.3.579.2.1259 1994 Unknown [id number] 2.16.84 0.1.714705.3.579.2.1259 1994 Unknown [id number] 2.16.840 .1.291368.3.579.2.1259 1959 Medicaid [id number] 1959 Unknown [id number] 1959 Unknown [id number] 1959 Unknown [id number] Social History Date Type Detail Facility Start: 04-23-2023 Tobacco smoking status [facility] Tobacco smoking consumption unknown [facility] Start: 1994 Sex Assigned At Not on file [facility] Start: 08-24-2021 Tobacco smoking status Never [facility] Start: 03-24-2023 End: 05-07-2023 Sex Assigned At Female [facility] Start: 08-17-2021 End: 08-27-2021 Exposure to SARS-CoV-2 (event) Not sure [facility] Start: 03-24-2023 End: 05-07-2023 Tobacco smoking status NHIS Never smoked tobacco [facility] Start: 04-17-2023 Alcohol intake Lifetime non-d jorge (finding) [facility] Start: 03-24-2023 End: 05-07-2023 History of Social function [facility] Start: 02-04-2023 [facility] Start: 1994 Sex Assigned At Female [facility] Start: 02-27-2023 Gender identity Identifies as female gender (finding) [facility] Start: 05-07-2023 Tobacco use and exposure Smokeless tobacco non-user [facility] Start: 05-07-2023 Alcohol intake Ex-drinker (finding) [facility] Medical Equipment Procedure Code Equipment Code Equipment Origin al Text Equipment Identifier Dates 1 each by Other route if needed [id number] Start: 03-11-2023 Use a new needle with each injection [id number] Start: 05-07-2023 Functional Status Date Assessment Result Facility 08-24-2021 Functional Status N/A [facility] Clinical Notes 08-24-2021 to 05-07-2023 Queta Zazueta CMA - 05/07/2023 3:00 PM SABINA Johnson - 05/07/2023 3:00 PM Haider Ortiz RN - 05/07/2023 1:[address] - 05/07/2023 1:00 PM ESTPatient Instructions Note Date & Type Note Facility 05-07-2023 History of Present illness Narrative Headache/epigastric pain/blurry vision/swelling? Headaches Cramping/contractions? No Abnormal vaginal discharge? No Spotting/vaginal bleeding? No Loss of fluid like your water may have broken? No Cats in the home? Yes Do you change the litter box? No Flu vaccine? No Genetic testing done this here or other office? yes , came back with no results Have you been seen here at [facility] in a previous ? N/a Recent ER visits or hospitalizations? No Bring blood sugar log or meter with you today? (Please bring them with you for every visit at [facility]) yes Traveled outside the country in the past 6 month no Any concerns that you would like me to mention to the provider today? No REASON FOR OFFICE VISIT: 1. Type 2 DM for 8 years A1c on 04/01/23 7.9%, random glucose 109 2. Pre- glucose control regimen: pump 3. CHTN on lopressor 25 mg PO daily 4. Mother of patient is T1DM 5. Depression on pristiq 100mg 6. Anxiety on lamictal 100 mg 7. Off synthroid for the past year HISTORY OF PRESENT ILLNESS: Tess Pfeiffer is a pleasant 27 y.o. at 15w1d due on Estimated Date of Delivery: 10/28/23. Currently the patient has no complaints. She is being followed at [facility] due to Type 2 DM. See Dexcom for poor glucose control averaging 173 PAST OBSTETRICAL HISTORY: OB History 1 Para 0 Term 0 0 AB 0 Living 0 SAB 0 IAB 0 Ectopic 0 Multiple 0 Live Births 0 Obstetric Comments Type 2 diabtetes SURGICAL HISTORY: No past surgical history on file. ALLERGIES: No Known Allergies CURRENT MEDICATIONS: Current Outpatient Medications: CARDIZEM LA 360 mg 24 hr tablet, Take 1 tablet (360 mg total) by mouth in the morning. (Patient not taking: Reported on 05/07/2023), Disp: , Rfl: cetirizine (ZyrTEC) 10 mg tablet, Take 1 tablet (10 mg total) by mouth in the morning. (Patient not taking: Reported on 05/07/2023), Disp: , Rfl: desvenlafaxine (PRISTIQ) 100 mg 24 hr tablet, Take 1 tablet (100 mg total) by mouth in the morning., Disp: , Rfl: DEXCOM G6 SENSOR device, 1 Unit by abdominal subcutaneous route Daily at 0700., Disp: , Rfl: DEXCOM G6 TRANSMITTER device, 1 Unit by abdominal subcutaneous route continuously as needed. Use as needed for checking blood sugar with sensor, Disp: , Rfl: lamoTRIgine (LaMICtal) 100 mg tablet, Take 1 tablet (100 mg total) by mouth in the morning. Pt to take 2 tablets daily total 200mg., Disp: , Rfl: levothyroxine (SYNTHROID, LEVOTHROID) 25 MCG tablet, Take 1 tablet (25 mcg total) by mouth in the morning. (Patient not taking: Reported on 05/07/2023), Disp: , Rfl: M-MADHURI PLUS 27 mg iron- 1 mg tablet, Take 1 tablet by mouth in the morning., Disp: , Rfl: metFORMIN XR (GLUCOPHAGE XR) 500 mg 24 hr tablet, Take 2 tablets (1,000 mg total) by mouth in the morning and 2 tablets (1,000 mg total) before bedtime. (Patient not taking: Reported on 05/07/2023), Disp: , Rfl: metoprolol tartrate (LOPRESSOR) 25 mg tablet, Take 1 tablet (25 mg total) by mouth every 12 (twelve) hours., Disp: , Rfl: OMNIPOD 5 G6 PODS, GEN 5, cartridge, 1 Unit by abdominal subcutaneous route continuously as needed. Per pump settings, Disp: , Rfl: ondansetron ODT (ZOFRAN ODT) 4 mg disintegrating tablet, Dissolve 1 tablet (4 mg total) on tongue every 8 (eight) hours as needed., Disp: , Rfl: pantoprazole (PROTONIX) 40 mg EC tablet, Take 1 tablet (40 mg total) by mouth every morning before breakfast., Disp: , Rfl: LABS: No results found for: GLUF , MICROALBUR , LDLCALC , CREATININE Lab Results Component Value Date TSH 1.051 04/01/2023 TSH 1.05 04/01/2023 No results found for: [id number] No results found for: CREATININE , BUN , NA , K , CL , CO2 No results found for: ALT , AST , GGT , ALKPHOS , LABBILI Lab Results Component Value Date HGBA1C 7.9 (A) 04/01/2023 No components found for: CBC No components found for: CMP No components found for: VITD No components found for: ULTRASOUND REVIEW OF SYSTEMS: Head and Neck: Negative for any dizziness and headaches. Cardiovascular and Respiratory System: Denies any chest pain, shortness of breath, and coughing. Abdominal and System: Denies any abdominal pain, nausea, vomiting, vaginal bleeding, and vaginal discharge PHYSICAL EXAMINATION: There were no vitals taken for this visit. and heart rate 151. Gravid abdomen, Alert & Oriented, Respirations not labored, steady gait. DISCUSSION: Type 2 DM. Importance of good blood sugar control was emphasized. The potential effects of uncontrolled diabetes before and during on herself were discussed including: preeclampsia, induced hypertension, labor, , and polyhydramnios. Potential effects on baby were explained: stillbirth, miscarriage, macrosomia, jaundice, trauma, hypoglycemia, respiratory distress and hypocalcemia. Long-term risk to offspring from poor maternal glycemic control include: obesity, cardiovascular disease, impaired glucose tolerance and Type 2 diabetes. Goal A1c in reviewed <6.0% Average glucose goal in 100 Fasting goal less than 95 1 hr PP btw 90-140 Reviewed meal and snack times with patient according to dexcom clarity and insulin spikes Acog recommend 81 Mg po daily of baby ASA for pre-eclampsia prevention Long acting insulin prescribed for in the emergent case of pump failure SUMMARY/RECOMMENDATION: The following is a summary of our recommendations: 1. Initial blood work:reviewed cfDNA testing, TSH, A1c, CBC Recommend UPCR and CMP per primary Ob provider 2. Medication: Basal 00: increased to 2.3 06: increased to 2.4 12:increased to 2.45 16: increased to 2.4 19: increased to 2.45 Additional times and dosing changes added in bold Bolus 00:3 AIT 3 hrs Target glucose 110 ISO 15 Long acting insulin prescribed in the event of pump failure (50 units nightly) Other medications as above 3. Referrals: Dental Q 6 months Eye, yearly 4. testin wk anatomy scan with echo 5. Follow-up appointment: In 2 weeks to Maternal- Medicine. I asked her to keep sending values to us weekly by e-mail to: [email or web address] or by fax to: [phone] 40 Minutes spent [id number]; more than 50% of time spent counseling and/or coordinating care with additional time for record review and communication to referring provider. SABINA Uribe 05/07/23 1556 documented in this encounter [facility] 05-07-2023 History of Present illness Narrative DIABETES AND ASSESSMENT Type of diabetes: type2 Age at onset: 19 years old Duration: 8 years Still : OB History Para Term AB Living 1 0 0 0 0 0 SAB IAB Ectopic Multiple Live Births 0 0 0 0 0 Obstetric Comments Type 2 diabtetes No LMP recorded. Patient is . Estimated Date of Delivery: 10/28/23 No of wks at 1st visit:15w1d Results of glucose testing: Date of one hour testing: Results Date of 3 hour Testing: Results A1C results and date: 04/01/23 HGBA1C was 7.9 Pre- BMI: Could not be calculated Calorie Prescription: Assessed Barriers to Education and Self Care [] Financial [] Anger [] Low Literacy [] Transportation [] Anxiety [] Cogenitive deficit [] Lack of support [] Denial [x] Other Other comments:noneDIABETES AND ASSESSMENT Assessment DIABETES AND ASSESSMENT Mother of fetus Father of fetus Occupation and work hours Healthcare providers that care for you: OB Provider Family Doctor Rush Seater Name: Sebastian Name: No primary care provider on file. Name:[facility] City: City: City: Last time seen: Last time seen: Last time seen: Eye Doctor Dentist Other Doctors Name: Name: Name: City: City: City: Last time seen: about 7 mon ago Last time seen: last year Last time seen: OB History Para Term AB Living 1 0 0 0 0 0 SAB IAB Ectopic Multiple Live Births 0 0 0 0 0 # Outcome Date GA Lbr Buddy/2nd Weight Sex Delivery Anes PTL Lv 1 Current Obstetric Comments Type 2 diabtetes No Known Allergies Current Outpatient Medications Medication Sig Dispense Refill desvenlafaxine (PRISTIQ) 100 mg 24 hr tablet Take 1 tablet (100 mg total) by mouth in the morning. DEXCOM G6 SENSOR device 1 Unit by abdominal subcutaneous route Daily at 0700. DEXCOM G6 TRANSMITTER device 1 Unit by abdominal subcutaneous route continuously as needed. Use as needed for checking blood sugar with sensor lamoTRIgine (LaMICtal) 100 mg tablet Take 1 tablet (100 mg total) by mouth in the morning. Pt to take 2 tablets daily total 200mg. M- PLUS 27 mg iron- 1 mg tablet Take 1 tablet by mouth in the morning. metoprolol tartrate (LOPRESSOR) 25 mg tablet Take 1 tablet (25 mg total) by mouth every 12 (twelve) hours. OMNIPOD 5 G6 PODS, GEN 5, cartridge 1 Unit by abdominal subcutaneous route continuously as needed. Per pump settings ondansetron ODT (ZOFRAN ODT) 4 mg disintegrating tablet Dissolve 1 tablet (4 mg total) on tongue every 8 (eight) hours as needed. pantoprazole (PROTONIX) 40 mg EC tablet Take 1 tablet (40 mg total) by mouth every morning before breakfast. CARDIZEM LA 360 mg 24 hr tablet Take 1 tablet (360 mg total) by mouth in the morning. (Patient not taking: Reported on 05/07/2023) cetirizine (ZyrTEC) 10 mg tablet Take 1 tablet (10 mg total) by mouth in the morning. (Patient not taking: Reported on 05/07/2023) levothyroxine (SYNTHROID, LEVOTHROID) 25 MCG tablet Take 1 tablet (25 mcg total) by mouth in the morning. (Patient not taking: Reported on 05/07/2023) metFORMIN XR (GLUCOPHAGE XR) 500 mg 24 hr tablet Take 2 tablets (1,000 mg total) by mouth in the morning and 2 tablets (1,000 mg total) before bedtime. (Patient not taking: Reported on 05/07/2023) No current facility-administered medications for this visit. Previous Hospitalizations none No past surgical history on file. Personal diabetes history: Gestational Diabetes Unanswered Diabetes mellitus Yes Family History of diabetes: pertinent family history is not on file. ROS: Constitutional: No problems Head and Neck: Wears glasses or contact lens and Blurred vision Lungs and breathing: No problems Heart:: High blood pressure Blood disorders and other conditions: No problems Mental health: Depression/anxiety Kidney, Bladder, and Sexual History: Fertility issues x3 rounds did not work and got spontaneous Circulation and Nerves: No problems Endocrine and Diabetes Conditions: Diabetes (Type 2) was on thyroid meds but not currently Stomach and Intestines: No problems Educational Level: high school Preferred Methods for Learning: Listening/Verbal directions, Reading, Watching someome do it first, and Hands on demonstration Is there anything about your culture, zoroastrianism, or personal beliefs we need to know about to care for you: Other none Primary Language spoken: Taiwanese [22] Primary Language for learning: Taiwanese Are you currently in a relationship where you are physically hurt, threatened or made to fee afraid? [] Yes [x] No Program Manager Environmental Planning needed? [] Yes [x] No Marital status/Living arrangements [x] [] Single [] Partner [x] Father of baby [] Friend [] Parent(s) [x] Other family member [] Self Social History Social History Socioeconomic History Marital status: Spouse name: Not on file Number of children: Not on file Years of education: Not on file Highest education level: Not on file Occupational History Not on file Tobacco Use Smoking status: Not on file Smokeless tobacco: Not on file Substance and Sexual Activity Alcohol use: Not on file Drug use: Not on file Sexual activity: Not on file Other Topics Concern Not on file Social History Narrative Not on file Social Determinants of Health Financial Resource Strain: Not on file Food Insecurity: Not on file Transportation Needs: Not on file Physical Activity: Not on file Stress: Not on file Social Connections: Not on file Interpersonal Safety: Not on file Housing Instability: Not on file Everyday Stress Level Stress Scale [] 1 Low [x] 2 [x] 3 [] 4 [] 5 High Stress related to: life Support systems: good Comfort Level Are you currently experiencing any pain? [] Yes []No If yes, where: On thge following scale, [place] the number, which describes your current level of pain. [x] 0 [] 1 [] 2 [] 3 [] 4 [] 5 [] 6 [] 7 [] 8 [] 9 [] 10 No Pain Worst Pain Possible How long does the pain last?: What do you do to help the pain go away? PLEASE COMPLETE THE FOLLOWING QUESTIONS - IF YOU HAVE DIABETES NOW OR HAVE HAD WITH A PREVIOUS HAVE YOU HAD ANY OF THE FOLLOWING SYMPTOMS OF LOW BLOOD SUGARS Shaky [x] Yes [] No Irritability [x] Yes [] No Heart Palpitations [] Yes [x] No Nervousness [] Yes [x] No Cold sweats [x] Yes [] No Headache [x] Yes [] No Passed out [] Yes [x] No Dizzy [] Yes [x] No Confusion [x] Yes [] No Seizures [] Yes [x] No What do you use to treat your low blood sugars? Any food Diabetes Testing and Medication Use Yes No Do you currently use a glucose testing meter? If yes, how often do you test? [x] [] Did you take insulin during any of these previous pregnancies? [] [x] Have your insulin reactions (low blood sugars) changed in any way recently? If yes, please describe how they have changed. [] [x] Do you have a Glucagon kit and are you familiar with its use? [] [x] Have you been told told that you have any complications from diabetes? If yes, please describe: [] [x] Do you check your feet? If yes, how often? [x] [] Do you have foot problems? If yes, what kind? [] [x] Have you ever received any diabetic education? If yes, where and when: [x] [] Tess Pfeiffer was seen today and diabetes education was provided. She was given a meal and snack schedule and she has a meter to monitor BGs. She was advised to monitor BGs FBS and 1 hr after meals and show to you and send to CDE weekly for review. She has a omnipod pump and a dexcom. We were able to connect her to our practice and will pull her report weekly. She will see Opal Heath today, see her letter for details on her appt with Mia. This is her first . She had some infertility work up and x3 attempts that were unsuccessful. This is a spontaneous . She was given thyroid medication but when she transferred to a new Endo he did lab work and took her off the thyroid medication. She is on lopressor for her bp. She was diagnosed with type 2 diabetes . It has been 8 years. She is not taking metformin at this time. We dicussed complications of diabetes and complications of diabetes to Mom and baby. We discussed where to give her insulin if she ever has to give long acting. Random today was 109 and last HGBA1C was 03/2323 at 7.9. Face to face time was 60 min. . Nutritional Assessment Form Date: 05/07/2023 KULDIP: Estimated Date of Delivery: 10/28/23 EGA: 15w1d Past Medical History: Diagnosis Date Diabetes mellitus ([facility]) Disease of thyroid gland Hypertension OB History 1 Para 0 Term 0 0 AB 0 Living 0 SAB 0 IAB 0 Ectopic 0 Multiple 0 Live Births 0 Obstetric Comments Type 2 diabtetes Current Outpatient Medications Medication Sig Dispense Refill desvenlafaxine (PRISTIQ) 100 mg 24 hr tablet Take 1 tablet (100 mg total) by mouth in the morning. DEXCOM G6 SENSOR device 1 Unit by abdominal subcutaneous route Daily at 0700. DEXCOM G6 TRANSMITTER device 1 Unit by abdominal subcutaneous route continuously as needed. Use as needed for checking blood sugar with sensor lamoTRIgine (LaMICtal) 100 mg tablet Take 1 tablet (100 mg total) by mouth in the morning. Pt to take 2 tablets daily total 200mg. M- PLUS 27 mg iron- 1 mg tablet Take 1 tablet by mouth in the morning. metoprolol tartrate (LOPRESSOR) 25 mg tablet Take 1 tablet (25 mg total) by mouth every 12 (twelve) hours. OMNIPOD 5 G6 PODS, GEN 5, cartridge 1 Unit by abdominal subcutaneous route continuously as needed. Per pump settings ondansetron ODT (ZOFRAN ODT) 4 mg disintegrating tablet Dissolve 1 tablet (4 mg total) on tongue every 8 (eight) hours as needed. pantoprazole (PROTONIX) 40 mg EC tablet Take 1 tablet (40 mg total) by mouth every morning before breakfast. CARDIZEM LA 360 mg 24 hr tablet Take 1 tablet (360 mg total) by mouth in the morning. (Patient not taking: Reported on 05/07/2023) cetirizine (ZyrTEC) 10 mg tablet Take 1 tablet (10 mg total) by mouth in the morning. (Patient not taking: Reported on 05/07/2023) levothyroxine (SYNTHROID, LEVOTHROID) 25 MCG tablet Take 1 tablet (25 mcg total) by mouth in the morning. (Patient not taking: Reported on 05/07/2023) metFORMIN XR (GLUCOPHAGE XR) 500 mg 24 hr tablet Take 2 tablets (1,000 mg total) by mouth in the morning and 2 tablets (1,000 mg total) before bedtime. (Patient not taking: Reported on 05/07/2023) No current facility-administered medications for this visit. Present MNT Therapy: Counts carbs Insulin Therapy: Omnipod pump Date started: Anthropometric Data: Height: Ht Readings from Last 1 Encounters: 05/07/23 152.4 cm (5') Pre- Wt: Pregravid weight not on file Pre- BMI: Could not be calculated Current BMI: Body mass index is 48.63 kg/m . Pre Wt. Category: obese Current Weight: Wt Readings from Last 1 Encounters: 05/07/23 112.9 kg (249 lb) Weight Gain Goals: 11-20# Lab Data: BP BP Readings from Last 1 Encounters: No data found for BP Hgb Hct OGCT OGTT HgA1C SMBG: Frequency : Testing Times: Glucose meter: Records Kept? [] Yes [] No Lifestyle Factors: Occupation of the mother: Substance Abuse: Living Conditions Hours worked per week not working Educational Level high school Family issues none Cultural/ethnic/temple influences none Exercise approved by MD? Current Exercise program walking Who prepares the meal pt Who purchase food at your home? pt Equipment use for cooking/food storage has all Food Assistance(Ex.WIC, Food [place]) has apt Dining out Yes 1 time per month Appetite/Appetite changes increased Weight History stable Do you have cats at home? Feeding Plans Breast Feeding If you have cats, who cleans the litter box? Cravings/Aversions/Pica none currently Nutrition Assessment Worksheet: Week/Weekend Food Recall Breakfast [place] Or cereal Or eggs Snack Lunch Grilled cheese Or noodles Snack Dinner 2 Cheeseburger Sugar free pink lemonade Snack Snack Time Tess David Joselin Limon present for diet instruction per doctor order secondary to diagnosis of Type 2 diabetes. She is currently on a Omnipod pump. She expressed confidence in carb counting and bolusing on her pump. Food recall suggests patient typically consumes a diet of mainly convenience foods. Pt has gained 6# to date. Based on patient's stated pre- weight, weight gain goal is 11-20#. Nutrition diagnosis: inconsistent and excessive carbohydrate intake related to lack of nutrition knowledge as evidenced by patient's food recall. Instructed patient in 2000 kcal meal plan of 3 meals and 3 snacks, carbohydrate counting, label reading, dining out, portion control, blood glucose testing and blood glucose targets. Discussed foods rich in iron and calcium. Encouraged patient to limit dining out and measure food for 2 days. Reviewed exercise guidelines with patient given provider approval. Pt demonstrated ability to count carbohydrates, agreed to send RD a 2 day food log, and was able to recall blood glucose targets. Please refer to health habits for other goals. Reviewed the Diabetes Self Management Support Plan, patient chose to use MyFitnessPal to help manage her diabetes. Patient understands that we will follow up weekly with a phone call to review progress. Face to face time 40 minutes. documented in this encounter [employer] 05-07-2023 Instructions Danyell Ortiz RN - 05/07/2023 1:00 PM EST Daily Schedule - Diet [] GET UP 9-10am [] Check sugar and record 9-10am [] EAT BREAKFAST 10am [] Check sugar 1 hour after start of meal and record 10am [] Eat morning snack ---- [] EAT LUNCH noon-1pm [] Check sugar 1 hour after start of meal and record 1pm to 2pm [] Eat afternoon snack 3pm [] EAT DINNER 6pm [] Check sugar 1 hour after start of meal and record 7pm [] Eat bedtime snack (HS) 9pm if pt is awake before 1 am and hungry she can have another snack BLOOD SUGAR GOALS: Before breakfast: 60-95 1 hours after meals 60-130 PLEASE REPORT BLOOD SUGARS: Over 100 before breakfast Over 130 after meals REMEMBER: EAT EVERY 3- 4 HOURS WHILE AWAKE documented in this encounter [facility] 04-23-2023 Miscellaneous Notes Called pt due toher not coming to her appt today and she stated she had left a message that she needed to tammi due to not having transportation to her appt this morning. Her name given back to the schedulers to call and resched her. documented in this encounter [facility] 04-23-2023 Telephone encounter Note Called pt due toher not coming to her appt today and she stated she had left a message that she needed to tammi due to not having transportation to her appt this morning. Her name given back to the schedulers to call and [facility]ched her. [facility] History of Present illness Narrative Reason for Appointment: Patient ID: Mia Ashley is a 27 y.o. female who presents for ER Follow-up Patient presents today for Return OB appointment. Current Medications: has a current medication list which includes the following prescription(s): dexcom g6 transmitter, desvenlafaxine, omnipod 5 g6 pods (gen 5), lamotrigine, metoprolol tartrate, pantoprazole, plus/iron, and true metrix blood glucose test. Medical History: Active Ambulatory Problems Diagnosis Date Noted No Active Ambulatory Problems Resolved Ambulatory Problems Diagnosis Date Noted No Resolved Ambulatory Problems Past Medical History: Diagnosis Date Acid reflux Hand fracture, right Type 2 diabetes mellitus (CMS/HCC) Family History Problem Relation Name Age of Onset Diabetes Mother Hypertension Mother Other (high blood pressure) Father Heart disease Father Heart attack Father x3 Social History Tobacco Use Smoking status: Never Smokeless tobacco: Not on file Substance Use Topics Alcohol use: Never Drug use: Never History reviewed. No pertinent surgical history. No Known Allergies Review of Systems: Review of Systems Constitutional: Negative. HENT: Negative. Eyes: Negative. Respiratory: Negative. Cardiovascular: Negative. Gastrointestinal: Negative. Genitourinary: Negative. Musculoskeletal: Negative. Skin: Negative. Neurological: Negative. All other systems reviewed and are negative. Hematological: Negative. Endocrine: Negative. Allergic/Immunologic: Negative. Objective Physical Exam Constitutional: Appearance: Normal appearance. She is well-developed. Genitourinary: Vulva normal. Cardiovascular: Rate and Rhythm: Normal rate and regular rhythm. Pulmonary: Effort: Pulmonary effort is normal. Breath sounds: Normal breath sounds. Abdominal: General: Bowel sounds are normal. There is no distension. Palpations: Abdomen is soft. Tenderness: There is no abdominal tenderness. There is no guarding or rebound. Musculoskeletal: General: No swelling. Normal range of motion. Right lower leg: No edema. Left lower leg: No edema. Neurological: Mental Status: She is alert and oriented to person, place, and time. Skin: General: Skin is warm and dry. Psychiatric: Mood and Affect: Mood normal. Behavior: Behavior normal. Vitals and nursing note reviewed. Exam conducted with a information technology officer present. Vitals: Estimated body mass index is 47.85 kg/m as calculated from the following: Height as of 01/22/: 5'. Weight as of this encounter: 245 lb. BP: 122/76 No LMP recorded. Patient is . Assessment/Plan Encounter Diagnoses Name Primary? Bleeding in early Follow-up exam Patient presents today for a routine obstetrics appointment. Patient is currently 12w6d . Patient states she is doing well but has complaints of being tired due to current . Patient has verbalizes frequent movement. labor precautions was discussed/given and patient was instructed to perform kick counts three times a day. Follow Up: Patient is to return to office in 4 week for routine OB appointment. Documented by Mario Conway DO on behalf of: Mario Conway DO documented in this encounter [facility] 08-27-2021 Instructions Gregorio Floyd MD - 08/27/2021 [...] levothyroxine for now. documented in this encounter [facility] 08-27-2021 History of Present illness Narrative Images from the original note were not [...] ALKPHOS, BILITOT No results found for: TSH, I8XELUM, THYROIDAB No results found for: PTH, CALCIUM, JACQUES, PHOS Lab Results Component Value Date HGBA1C 7.7 (A) 08/27/2021 No results found for: LDLCALC, CHOL, HDL, TRIG, CHOLHDL No results found for: MICALBCREAT, [id number] No results found for: CPEPTIDE Assessment and [...] acanthosis nigricans indicate T2DM, but will get [id number] and c-peptide/glucose given the young age of [...] Due for foot exam no 08/2021; to counseling director on foot care next visit CV risk/Lipids [...] Floyd MD Endocrinology documented in this encounter [facility] 08-25-2021 Hospital Discharge instructions Patient Education 08/25/2021 02:09:26 Head Injury, [...] Ask your health care provider for a kajv-yz-gito plan for gradually returning to activities. Ask [...] your friends, family, a trusted colleague, and hand woodworking sander about your injury, symptoms, and restrictions. Have them watch for any new or worsening problems. General instructions Take awmj-jnl-kbfjqnl and prescription medicines only as told by [...] 02/24/2006 Document Revised: 03/24/2019 Document Reviewed: 03/19/2019 Epoch Patient Education 2020 [employer]. 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 General instructions Take fnsn-ybk-qirhhrh and prescription medicines only as told by [...] 12/22/2007 Document Revised: 06/16/2019 Document Reviewed: 10/23/2016 Epoch Patient Education 2020 [employer]. Follow Up Care 08/24/2021 22:42:21 With:Champ Bell Address: [address] [place], [place] [id number]- Business (1) When:Within 3 Day(s) [facility] 08-24-2021 Evaluation + Plan note Extrac [place] [...] w/o Contrast CT Spine Cervical w/o Contrast [facility] Diagnosis Thyroid disorder- Primary Unspecified disorder of thyroid Hair loss Unspecified alopecia [facility] Diagnosis Type 2 diabetes mellitus with hyperglycemia, unspecified whether radio news anchor insulin use (HCC)- Primary Thyroid disorder Unspecified disorder of thyroid Hair loss Unspecified alopecia [facility] Diagnosis Bleeding in early Unspecified hemorrhage in early , unspecified as to episode of care Follow-up exam Unspecified follow-up examination documented [facility] this [facility]* Diagnosis Type 2 diabetes mellitus in , second trimester- Primary Insulin pump in place Insulin pump status HTN in , chronic [facility] Diagnosis Type 2 diabetes mellitus in , second trimester- Primary Pre-existing type 2 diabetes mellitus during in first trimester [facility]* Diagnosis Type 2 diabetes mellitus in , second trimester- Primary documented in this [facility] Narrative No data available for this section [facility] filed[facility]ed in [facility] on filedocumented in this encounter [facility]Not on filedocumented in this encounter [facility] on filedocumented in this encounter [facility] No data available for this section [facility] Consultation (Routine) - Pending Review Specialty Diagnoses / Procedures Referred By Contac t Referred To Contact Maternal and Medicine Diagnoses Type 2 diabetes mellitus in , second trimester Insulin pump in place Opal Heath APRN-CNP [address] [place] [address] Leana Burr MD [address] , [address] [address] Referral ID Status Reason Start Date Expiration Date Visits Requested Visits Authorized [id number] Pending Review Specialty Services Required 05/07/2023 05/06/[address] [facility] Summary Purpose Family History No Family History Records FoundNo Family History Records FoundNo Family History Records FoundNo Family History Records FoundNo Family History Records FoundNo Family History Records Found Advance Directives No Advanced Directives Records FoundDocuments on File Type Date Recorded Patient It Security Manager Expl anation Advance Directives and Livin g Will 05/02/2021 12:00 AM Reason for Referral Specialty Diagnoses / Procedures Referred By Contac t Referred To Contact Endocrinology Diagnoses Thyroid disorder Hair loss Champ Bell MD [address] [facility] [place] [address] [place] [address] Gregorio Floyd MD [address] [place] [id number] Referral ID Status Reason Start Date Expiration Date Visits Requested Visits Authorized [id number] Authorized Specialty Services Required/Pat ient's Best Interest 05/04/2021 05/04/2022 1 1 Specialty Diagnoses / Procedures Referred By Contac t Referred To Contact Maternal and Medicine Diagnoses Type 2 diabetes mellitus in , second trimester Procedures US MFM with or without consult Opal Heath APRN-CNP [address] [place] [address] [facility] Maternal Med [address] [place] [address] Referral ID Status Reason Start Date Expiration Date V isits Requested Visits Authorized [id number] Pending Review 05/08/2023 05/07/2024 1 1 Additional Source Comments INFORMATION SOURCE (unrecogn ized section and content) DATE CREATED AUTHOR 02/06/2021 [facility] DATE CREATED AUTHOR AUTHOR'S ORGANIZ ATION 08/27/2021 [facility] DATE CREATED AUTHOR AUTHOR'S ORGANIZ ATION 08/30/2021 [facility] DATE CREATED AUTHOR AUTHOR'S ORGANIZ ATION 06/02/2022 [facility] DATE CREATED AUTHOR AUTHOR'S ORGANIZ ATION 05/10/2023 [facility] DATE CREATED AUTHOR AUTHOR'S ORGANIZ ATION 05/12/2023 [facility] Special[facility] EPIC Care Teams (unrecognized sec tion and content) Historical Interpreter Relationship Specialty Start Date End Date Champ Bell MD [address] [place] [address] PCP - General Family Medicine 05/02/21 Historical Interpreter Relationship Specialty Start Date End Date Champ Bell MD [address] [place] [address] PCP - General Family Medicine 05/02/21 Historical Interpreter Relationship Specialty Start Date End Date Champ Bell MD [address] [place] [address] PCP - General 03/13/23 Reason for Visit (unrecogniz ed section and content) Reason Comments Thyroid Problem Specialty Diagnoses / Procedures Referred By Contmichelle t Referred To Contact Endocrinology Diagnoses Thyroid disorder Hair loss Champ Bell MD [address] [place] [address] Gregorio Floyd MD [address] [place] [address] Referral ID Status Reason Start Date Expiration Date V isits Requested Visits Authorized [id number] Closed Specialty Services Required/Deanna ent's Best Interest 05/04/2021 05/04/2022 1 1 Reason Comments ER Follow-up Reason Comments t2dm Reason Comments Diabetes Specialty Diagnoses / Procedures Referred By Contac t Referred To Contact Maternal and Medicine Diagnoses Pre-existing type 2 diabetes mellitus during in first trimester Mario Conway R, DO [address] , [place] [address] [facility] Maternal Med [address] [facility] [place] [address] Referral ID Status Reason Start Date Expiration Date Visits Requested Visits Authorized [id number] Pending Review Specialty Services Required 04/15/2023 04/14/2024 1 1 FOR RECORDS PERTAINING TO PATIENTS [...] BE BASED ON THE PRIMARY CLINICAL RECORDS. [employer] [facility]. provides no warranty or guarantee of the accuracy or completeness of information in this document.
[2023-05-16 19:08] LABS: Age Gdln ACOG Testing Note (.); IGP, rfx Aptima HPV ASCU Note (.)
== END 2023-05-12 20:40 | disposition home or self-care (01) ==
LOC: LAB 20:39
PROVIDERS: PCP Family Medicine; Visit Provider Physician Assistant
DX: Z01.419 Encounter for gynecological examination (general) (routine) without abnormal findings (principal)
CPT/HCPCS: G0145

== ENCOUNTER 2023-05-20 12:26 | Emergency (ER) | payer OTHER, SELFPAY ==
[2023-05-20 12:30] VITALS: BP 159/87; PULSE 113; RESP 18; TEMP 36.8; O2SAT 98; BMI 48.8
--- NOTE | 2023-05-20 12:33 | US_ITS ---
[address] [address] Patient Name: TESS CALVERT MRN: [facility]:[id number] date: 1995 Sex: F Assigned Patient Location: ER Current Patient Location: ER Accession/Order Number: [id number] Exam Date: 05/20/2023 12:49 Report Date: 05/20/2023 13:26 At the request of: GENNY ALMONTE Procedure: US OB >= 14 weeks Fetus Obstetrical ultrasound, limited CLINICAL: Viability TECHNIQUE: Transabdominal obstetrical ultrasound was performed. FINDINGS: Comparison to 04/16/2023 FETUS AND PLACENTA: There is a single living intrauterine fetus in vertex presentation and longitudinal lie, with heart rate of 158 beats per minute. The placenta is anterior and fundal in location. Amniotic fluid volume is subjectively within normal limits. BIOMETRY: Biparietal diameter (BPD): 3.98 cm, gestational age of 18 weeks 1 day, Hadlock 90% Head circumference (HC): 14.33 cm, gestational age of 17 weeks 4 days, Hadlock 71% Abdominal circumference (AC): 11.27 cm, gestational age of 17 weeks 1 day, Hadlock 52% Femur length (FL): 2.45 cm, gestational age of 17 weeks 3 days, Hadlock 62% Head circumference to abdominal circumference ratio (HC:AC): 1.27 Femur length to biparietal diameter ratio (FL:BPD): 62% Femur length to abdominal circumference ratio (FL:AC): 22% ULTRASOUND GESTATIONAL AGE AND ESTIMATED DATE OF CONFINEMENT: The estimated gestational age by ultrasound is 17 weeks 4 days with an estimated date of confinement by the ultrasound of 10/24/2023. ESTIMATED WEIGHT: 189 g (7 ounces). Estimated weight is 64% of expected weight based on clinical gestational age according to Hadlock criteria. US/US OB >= 14 weeks Fetus IMPRESSION: 1. Single intrauterine fetus in vertex presentation with heart rate of 158 beats per minute. 2. Anterior and fundal placenta. 3. Estimated gestational age by ultrasound is 17 weeks 4 days with an estimated date of confinement by ultrasound of 10/24/2023. Provided clinical gestational age is 17 weeks 0 days. 4. Estimated weight is 189 g (7 ounces). Estimated weight is 64% of expected weight based on clinical gestational age according to Hadlock criteria. Electronically authenticated by: ROSALBA IZAGUIRRE Date: 05/20/2023 13:26
--- NOTE | 2023-05-20 13:55 | ED.GENADUL1 ---
HPI - General Adult General Chief complaint: OB/Uterine Contractions Stated complaint: Complications Time Seen by Provider: 05/20/23 12:33 Source: patient Mode of arrival: walk-in Limitations: no limitations History of Present Illness HPI narrative: 27-year-old female to the emergency department with chief complaint of decreased movement. She is currently 17 weeks . Patient reports she had the flu last week. She reports she had cough sore throat, congestion and fevers which have resolved. She believes she is feeling the baby move last this week. She called her OB and was referred to the emergency department for an ultrasound. She has no vaginal bleeding or abdominal cramping. She has no other concerns at this time. Related Data Home Medications Medication Instructions Recorded Confirmed desvenlafaxine succinate 100 mg 100 mg PO Q24H 04/16/23 04/16/23 tablet,extended release 24 hr insulin lispro 100 unit/mL 1 sliding scale dose subcut Q6H 04/16/23 04/16/23 subcutaneous solution (Humalog PRN hyperglycemia U-100 Insulin) lamotrigine 100 mg tablet 100 mg PO Q12H 04/16/23 04/16/23 metoprolol tartrate 25 mg tablet 25 mg PO Q12H 04/16/23 04/16/23 pantoprazole 40 mg tablet,delayed 40 mg PO DAILY 04/16/23 04/16/23 release Allergies Allergy/AdvReac Type Severity Reaction Status Date / Time No Known Drug Allergies Allergy Verified 01/11/23 15:08 Review of Systems ROS Status of ROS 10 or more systems reviewed and unremarkable except as noted in history and below PFSH PFS Social History Smoking status: Never smoker Exam Narrative Exam Narrative: VITALS: I have reviewed the triage vital signs. GENERAL: Well developed, well appearing adult in no acute distress. NEURO: Alert and oriented. Moves all extremities. Face is symmetric and expressive. EYES: PERRL. No scleral icterus or conjunctival injection. No discharge. HENT: Normocephalic, atraumatic. Hearing is grossly intact. Nares grossly patent and without discharge. Mucous membranes moist. NECK: No JVD. Patient moves neck without restriction. CARDIO: Rhythm regular. Normal rate. No murmur, rub, or gallop. Pulses equal bilaterally in the upper and lower extremity. No lower extremity edema. PULM: Lungs clear to auscultation in all [place]. No wheezes, rales, or rhonchi. No conversational dyspnea. No splinting, stridor, or accessory muscle use. GI/: Abdomen is soft and non-tender. Normoactive bowel sounds. EXTREMITIES: Symmetric muscle bulk. No joint swelling. No clubbing, cyanosis, or deformity. SKIN: Warm and dry. Normal turgor. No rash or lesions appreciated. PSYCH: Mood, affect, and interaction is appropriate to the setting. Constitutional Vital Signs, click to edit/add: Last Vital Signs Temp 98.2 F 05/20/23 12:30 Pulse 113 H 05/20/23 12:30 Resp 18 05/20/23 12:30 BP 159/87 H 05/20/23 12:30 Pulse Ox 98 05/20/23 12:30 O2 Del Method Room Air 05/20/23 12:30 Course Vital Signs Vital signs: Vital Signs Temperature 98.2 F 05/20/23 12:30 Pulse Rate 113 H 05/20/23 12:30 Respiratory Rate 18 05/20/23 12:30 Blood Pressure 159/87 H 05/20/23 12:30 Pulse Oximetry 98 05/20/23 12:30 Oxygen Delivery Method Room Air 05/20/23 12:30 Temperature 98.2 F 05/20/23 12:30 Pulse Rate 113 H 05/20/23 12:30 Respiratory Rate 18 05/20/23 12:30 Blood Pressure 159/87 H 05/20/23 12:30 Pulse Oximetry 98 05/20/23 12:30 Oxygen Delivery Method Room Air 05/20/23 12:30 Medical Decision Making [facility] Narrative Medical decision making narrative: 19-year-old female to the emergency department to complain of decreased movement after having the flu last week. Vital stable, patient is afebrile. She has no abdominal pain or cramping or vaginal bleeding. Ultrasound is ordered. Ultrasound shows a viable fetus at expected gestational age. Discussed findings with the patient. She is referred back to her OB. Return precautions were discussed. All questions were answered. The patient was discharged home. Imaging Data US - abdomen: Radiologist's impression: ITS Impressions Ultrasound 05/20/23 12:33 IMPRESSION: 1. Single intrauterine fetus in vertex presentation with heart rate of 158 beats per minute. 2. Anterior and fundal placenta. 3. Estimated gestational age by ultrasound is 17 weeks 4 days with an estimated date of confinement by ultrasound of 10/24/2023. Provided clinical gestational age is 17 weeks 0 days. 4. Estimated weight is 189 g (7 ounces). Estimated weight is 64% of expected weight based on clinical gestational age according to Hadlock criteria. Electronically authenticated by: DEMONDBREA DMITRIY Date: 05/20/2023 13:26 Discharge Plan Discharge Stand Alone Forms: Portal Instructions Chief Complaint: OB/Uterine Contractions Clinical Impression: Decreased movement, Encounter for medical screening examination, Patient Disposition: Home, Self-Care Time of Disposition Decision: 13:44 Condition: Good Mode of Transportation: Private Vehicle Prescriptions / Home Meds: No Action pantoprazole 40 mg tablet,delayed release (DR/EC) 40 mg PO DAILY insulin lispro [Humalog U-100 Insulin] 100 unit/mL solution 1 sliding scale dose subcut Q6H PRN (Reason: hyperglycemia) lamotrigine 100 mg tablet 100 mg PO Q12H metoprolol tartrate 25 mg tablet 25 mg PO Q12H desvenlafaxine succinate 100 mg tablet extended release 24 hr 100 mg PO Q24H Print Language: Uruguayan Instructions: Movement (ED) Referrals: Mario Conway DO [Physician] - 1 week ( SCHEDULED FOLLOW-UP) Aleksey Bell MD [Primary Care Provider] - 1 week Discharge Date/Time: 05/20/23 14:09
== END 2023-05-20 14:09 | disposition home or self-care (01) ==
LOC: ER 13:48
PROVIDERS: Emergency Provider Student in an Organized Health Care Education/Training Program; PCP Family Medicine
DX: O36.8130 Decreased fetal movements, third trimester, not applicable or unspecified (principal); Z3A.17 17 weeks gestation of pregnancy; Z79.899 Other long term (current) drug therapy; Z79.4 Long term (current) use of insulin
CPT/HCPCS: 76815; 99284

== ENCOUNTER 2023-06-04 16:04 | Emergency (ER) | payer OTHER, SELFPAY ==
[2023-06-04] VITALS (9 sets, daily range): BP systolic 130–160; BP diastolic 73–98; PULSE 104–119; RESP 6–22; TEMP 36.6; O2SAT 97–98; BMI 49.2
--- OUTSIDE RECORDS SUMMARY | 2023-06-04 16:18 | XMS_ITS | CCD ---
Author Organization [facility] Care Team Providers Care Accountant Controller Name Role Phone Champ Bell MD Primary Care Provider [phone] Champ Bell Primary Care Physician Champ Bell MD Primary Care Provider CHAMP BELL Admitting Unavailable COLLINSYCHAMP Primary Care [...] Unavailable HAY ., DR MARTINEZ Consulting Unavailable SCHREIBMAN, TUAN Consulting Unavailable HOY ., DR OAKES Consulting [...] DR OAKES Attending Unavailable HOY ., DR OAKSE Admitting Unavailable ELYRIA, DR MAY Silverman Consulting Unavailable CRYSTAL PENG Consulting Unavailable COLLINSY ., DR OAKES Primary Care Unavailable CRYSTAL PENG Attending Unavailable CRYSTAL PENG Admitting Unavailable Champ Bell MD Primary Care Provider [phone] Unavailable Primary Care Provider UnavailOPAL Mcneal Attending Unavailable ZORAIDA, MARIO R Referring Unavailable SHITAL FRITZ Attending Unavailable ZORAIDA, MARIO Ricardo Referring Unavailable LEANA BURR Attending Unavailable MARY GUIDRY Referring Unavailable LEANA BURR Attending Unavailable ZORAIDA, MARIO Attending Unavailable ZORAIDA, MARIO Attending Unavailable SHWETHA CARTER Attending Unavailable ZORAIDAPAUL SPANGLERY Attending Unavailable Medications Current Medications Medication Drug Class(es) Dates Sig (Normalized) Sig (Original) acetaminophen 325 mg / HYDROcodone bitartrate 5 mg oral tablet (1 source) Opioid Agonist Start: 07-03-2020 [place] 325 mg-5 mg oral tablet 1 tab(s), Oral, q6hr for pain, 8 tab(s), Refill(s) 0 Start Date: 07/03/20 Status: Ordered aspirin 81 mg delayed release oral tablet (7 sources) Platelet Aggregation Inhibitor, Nonsteroidal Anti-inflammatory Drug [...] Ordered cetirizine hydrochloride 10 mg oral tablet (10 sources) Histamine-1 Receptor Antagonist End: 05-20-2023 take 1 tablet by mouth in the morning cetirizine (ZyrTEC) 10 mg tablet Take 1 tablet (10 mg total) by mouth in the morning. 0 05/20/2023 Discontinued Continuous Blood Gluc Transmit (Dexcom G6 transmitter) misc (2 sources) Start: 03-11-2023 Continuous Blood Gluc Transmit (Dexcom G6 transmitter) misc Inject 1 each under the skin if needed (as needed) 0 03/11/2023 Active 24 hr desvenlafaxine succinate 100 mg extended release oral tablet (12 sources) Serotonin and Norepinephrine Reuptake Inhibitor Start: [...] morning. 0 Active DEXCOM G6 SENSOR device (10 sources) Start: 04-04-2023 inject 1 [IU] by subcutaneous injection once daily DEXCOM G6 SENSOR device 1 Unit by abdominal subcutaneous route Daily at 0700. 0 04/04/2023 Active DEXCOM G6 TRANSMITTER device (11 sources) Start: 05-20-2023 inject 1 [IU] by subcutaneous injection every three months DEXCOM G6 TRANSMITTER device Indications: Type 2 diabetes mellitus in , second trimester 1 Unit by abdominal subcutaneous route every 3 (three) months. 1 each 3 05/20/2023 Active Start: 03-11-2023 End: 05-20-2023 DEXCOM G6 TRANSMITTER device 1 Unit by abdominal subcutaneous route every 10 days. 0 03/11/2023 05/20/2023 Discontinued (Reorder) Start: 03-11-2023 DEXCOM G6 ARREOLA SMITTER device 1 Unit by abdominal subcutaneous route [...] ml insulin glargine 100 unt/ml pen injector (7 sources) Insulin Analog Start: 05-07-2023 insulin glargi ne (LANTUS SOLOSTAR U-100 INSULIN) 100 unit/mL (3 mL) insulin pen Prime with 2 units then inject 50 units each evening in the presence of pump failure 15 mL 3 05/07/2023 Active insulin lispro 100 unt/ml injectable solution (10 sources) Insulin Analog Start: 05-20-2023 insulin lispro (HumaLOG U-100 Insulin) 100 unit/mL injection Indications: Type 2 diabetes mellitus in , second trimester Use up to 100 units per day via insulin pump. 90 mL 3 05/20/2023 Active Start: 05-07-2023 insulin lispro (HumaLOG) 100 unit/mL insulin pen Inject 48 Units under the skin in the morning and 48 Units at noon and 48 Units in the evening. Inject with meals. 15 mL 0 05/07/2023 Active Start: 02-10-2020 Humalog SubCut aneous, Refills(s) 0 Start Date: 02/10/20 Status: Ordered Lamictal (14 sources) Mood Stabilizer, Anti-epileptic Agent Start: 01-17-2019 [...] Active levothyroxine sodium 0.025 mg oral tablet (10 sources) l-Thyroxine End: 05-20-2023 take 1 tablet by mouth in the morning levothyroxine (SYNTHROID, LEVOTHROID) 25 MCG tablet Take 1 tablet (25 mcg total) by mouth in the morning. 0 05/20/2023 Discontinued M-MADHURI PLUS 27 mg iron- 1 mg tablet (10 sources) Start: 04-10-2023 take 1 tablet by mouth in the morning M-MADHURI PLUS 27 mg iron- 1 mg tablet Take 1 tablet by mouth in the morning. 0 04/10/2023 Active metoprolol tartrate 25 mg oral tablet (12 sources) beta-Adrenergic Alfonzo take 1 tablet by mouth every twelve hours metoprolol tartrate (LOPRESSOR) 25 mg tablet Take 1 tablet (25 mg total) by mouth every 12 (twelve) hours. 0 Active OMNIPOD 5 G6 PODS, GEN 5, cartridge (10 sources) Start: 04-03-2023 OMNIPOD 5 G6 PODS, GEN 5, cartridge 1 Unit by abdominal subcutaneous route continuously as needed. Per pump settings 0 04/03/2023 Active ondansetron 4 mg disintegrating oral tablet (10 sources) Serotonin-3 Receptor Antagonist Start: 04-04-2023 take 1 tablet by mouth every eight hours as needed ondansetron ODT (ZOFRAN ODT) 4 mg disintegrating tablet Dissolve 1 tablet (4 mg total) on tongue every 8 (eight) hours as needed. 0 04/04/2023 Active Protonix (14 sources) Proton Pump Inhibitor Start: 01-17-2019 Protonix [...] hydrochloride 300 mg extended release oral tablet (11 sources) Calcium Channel Alfonzo Start: 04-04-2022 End: 04-17-2023 take 1 tablet by mouth every twenty-four hours in the morning Matzim LA 300 MG tablet sustained-release 24 hour Take 1 tablet by mouth in the morning. 0 04/04/2022 04/17/2023 Discontinued (Therapy completed) End: 05-20-2023 take 1 tablet by mouth every twenty-four hours in the morning CARDIZEM LA 360 mg 24 hr tablet Take 1 tablet (360 mg total) by mouth in the morning. 0 05/20/2023 Discontinued 24 hr metFORMIN hydrochloride 500 mg extended [...] tolerance complicating ; childbirth; or the puerperium (18 sources) and type 2 diabetes mellitus; Translations: [Pre-existing type 2 diabetes mellitus, in , second trimester] Onset: 05-07-2023 05-07-2023 Chronic Hemorrhage during ; abruptio placenta; placenta previa (2 sources) Antepartum hemorrhage; Translations: [Hemorrhage in early , unspecified] 04-17-2023 Episodic Hypertension complicating ; childbirth and the puerperium (10 sources) Pre-existing hypertension in obstetric context; Translations: [...] diffon Hematocrit (Bld) [Volume fraction] 40.1 % [facility] Hemoglobin (Bld) [Mass/Vol] 12.8 g/dL [facility] Platelets (Bld) [#/Vol] 305 10*3/uL [facility] Rbc Mcv (Fl) By Automated Count 82.2 [facility] Free Cell DNAon 2023 Free Cell Dna no call [facility] HIV 1&2 AB/AG Screen (P24 AG )on 04-01-2023 HIV 1&2 AB/AG Negative [facility] Hemoglobin A1con 04-01-2023 HbA1c (Bld) [Mass fraction] 7.9 % Abnormal 4.0 - 6.0 % [facility] Interpretation and review of laboratory results Abnormal [facility] Hepatitis B surface antigeno n 04-01-2023 Hepatitis B Surface Antigen Negative [facility] No Panel Informationon 04-01 [facility] Rubella IGG immune statuson 04-01-2023 Rubella immune IgG immune [facility] Syphilis Total(Unknown Syphi lis Status)on 04-01-2023 Syphilis Non-Reactive [facility] TSHon 04-01-2023 Thyroid Stimulating (3Rd Generation) Hormone/ Tsh 1.051 [facility] TSH Qn 1.05 m[IU]/L [facility] Type and screenon 04-01-2023 Abo/Rh(D) Positive [facility] Urine Cultureon 04-01-2023 Bacteria identified Cx Nom (U) no growth [facility] Covid-19 PCR (CVDTBH)on 05-09 SARS-CoV-2 (COVID-19) RNA EZEKIEL+probe Ql (Unsp spec) Not detected Normal NOT DETECTED [facility] Comment on above: Result Comment: This test is not yet approved or cleared by the [place] FDA. When there are no FDA-approved or cleared tests available, and other criteria are met, FDA can make tests available under an emergency access mechanism called an Emergency Use Authorization (EUA). The EUA for this test is supported by the [employer] Supervisor of Health and Human Service's (HHS's) declaration [...] SARS-CoV-2. Performed By: #### C VDTBH #### [facility] [address] [place] [address] Dr. Rosemary Ames GROUP A STREP CULTUREon 05-09 S. pyogenes Ag Ql (Unsp spec) Culture Observations: NEGATIVE FOR GROUP A STREPTOCOCCUS. Normal [facility] Comment on above: Performed By: #### T 7, LIPID, TSH, CMADM, BNP, CMP #### [facility] [address] [place] [address] Dr. Rosemary Ames INFLUENZA A AND B AGon 05-31 INFLUANEGH SEE BELOW Normal [facility] Comment on above: Result Comment: Nega tive for Flu A protein angiten. Infection due to Flu A cannot be ruled out. Flu A angiten in the sample may be below the detection limit of the test. Performed By: #### I NFLUAB #### [facility] [address] [place] [address] Dr. Rosemary Ames INFLUBNEGH SEE BELOW Normal [facility] Comment on above: Result Comment: Nega tive for Flu B protein antigen. Infection due to Flu B cannot be ruled out. Flu B antigen in the sample may be below the detection limit of the test. Performed By: #### I NFLUAB #### [facility] [address] [place] [address] Dr. Rosemary Ames INFLUENZA A AG Negative Normal NEGATIVE SEE COMMENT [facility] Comment on above: Performed By: #### I NFLUAB #### [facility] [address] [place] [address] Dr. Rosemary Ames INFLUENZA B AG Negative Normal NEGATIVE SEE COMMENT [facility] Comment on above: Performed By: #### I NFLUAB #### [facility] [address] [place] [address] Dr. Rosemary Ames STREPT SCREENon 05-31-2022 STREP SCREEN A Negative Normal NEGATIVE [facility] Comment on above: Performed By: #### E RUR #### [facility] [address] [place] [address] Dr. Rosemary Ames SYMPTOMATIC COVID-19 ANTIGEN on 05-31-2022 EUA Statement SEE BELOW Normal [facility] Comment on above: Result Comment: This test [...] 7, LIPID, TSH, CMADM, BNP, CMP #### [facility] [address] [place], [place] [id number] Dr. Rosemary Ames SARS-CoV-2 (COVID-19) RNA EZEKIEL+probe Ql (Unsp spec) Negative Normal NEGATIVE [facility] Comment on above: Performed By: #### T 7, LIPID, TSH, CMADM, BNP, CMP #### [facility] [address] [place], [place] [id number] Dr. Rosemary Ames ECHOCARDIO M/2D COMPLETEon 0 04-10-2022 ECHOCARDIO M/2D COMPLETE Patient: TESS ASHLEY Exam Date: 04/10/2022 : 1995 Gender:F Ordering : DR CHAMP BELL . Admission #: [id number] Family : Order #: [id number] CLICK HERE TO VIEW EXAM ECHOCARDIOGRAM REPORT [...] M.D. on 04/10/2022 at 17:40 Normal [facility] CBC AUTO DIFFon 03-13-2022 BASO # 0.0 103/ul Normal 0.0-0.1 [facility] Comment on above: Performed By: #### A 1C #### [facility] [address] [place] [address] Dr. Rosemary Ames Basophils/100 WBC (Bld) 0.3 % Normal 0.2-2.0 [facility] Comment on above: Performed By: #### A 1C #### [facility] [address] [place] [address] Dr. Rosemary Ames EO # 0.0 103/ul Normal 0.0-0.7 [facility] Comment on above: Performed By: #### A 1C #### [facility] [address] [address] [address] Rosemary Ames Eosinophils/100 WBC (Bld) 0.5 % Critically low 0.9-7.0 [facility] Comment on above: Performed By: #### A 1C #### [facility] [address] [place] [address] Dr. Rosemary Ames Erythrocyte distribution width (RBC) [Ratio] 14.5 % Normal 11.0-15.0 [facility] Comment on above: Performed By: #### A 1C #### [facility] [address] [place] [address] Dr. Rosemary Ames Hematocrit (Bld) [Volume fraction] 39.7 % Normal 36.0-48.0 [facility] Comment on above: Performed By: #### A 1C #### [facility] [address] [place] [address] Dr. Rosemary Ames Hemoglobin (Bld) [Mass/Vol] 12.9 g/dL Normal 12.0-16.0 [facility] Comment on above: Performed By: #### A 1C #### [facility] [address] [place] [address] Dr. Rosemary Ames IG # 0.03 10e3/ul Normal 0.00-0.03 [facility] Comment on above: Performed By: #### A 1C #### [facility] [address] [place] [address] Dr. Rosemary Ames IG % 0.4 % Normal 0.0-0.5 [facility] Comment on above: Performed By: #### A 1C #### [facility] [address] [place] [address] Dr. Rosemary Ames LYMPH # 0.5 103/ul Critically low 1.2-3.8 [facility] Comment on above: Performed By: #### A 1C #### [facility] [address] [place] [address] Dr. Rosemary Ames Lymphocytes/100 WBC (Bld) 6.6 % Critically low 20.5-60.0 [facility] Comment on above: Performed By: #### A 1C #### [facility] [address] [place] [address] Dr. Rosemary Ames MANUAL DIFF REQ NO Normal [facility] Comment on above: Performed By: #### A 1C #### [facility] [address] [place] [address] Dr. Rosemary Ames MCH (RBC) [Entitic mass] 25.1 pg Critically low 26.7-34.0 [facility] Comment on above: Performed By: #### A 1C #### [facility] [address] [address] [address] Rosemary Ames MCHC (RBC) [Mass/Vol] 32.5 g/dL Normal 29.9-35.2 [facility] Comment on above: Performed By: #### A 1C #### [facility] [address] [address] [address] Rosemary Ames MCV (RBC) [Entitic vol] 77.2 fL Critically low 81.0-99.0 [facility] Comment on above: Performed By: #### A 1C #### [facility] [address] [address] [address] Rosemary Ames MONO # 0.7 103/ul Normal 0.3-0.8 [facility] Comment on above: Performed By: #### A 1C #### [facility] [address] [place] [address] Dr. Rosemary Ames Monocytes/100 WBC (Bld) 9.3 % Normal 1.7-12.0 [facility] Comment on above: Performed By: #### A 1C #### [facility] [address] [place] [address] Dr. Rosemary Ames NEUT # 6.2 103/ul Normal 1.4-6.5 [facility] Comment on above: Performed By: #### A 1C #### [facility] [address] [place] [address] Dr. Rosemary Ames Neutrophils/100 WBC (Bld) 82.9 % Critically high 43.0-75.0 [facility] Comment on above: Performed By: #### A 1C #### [facility] [address] [place] [address] Dr. Rosemary Ames Platelet mean volume (Bld) [Entitic vol] 9.8 fL Normal 9.5-13.5 [facility] Comment on above: Performed By: #### A 1C #### [facility] [address] [place] [address] Dr. Rosemary Ames PLT 246 103/ul Normal 150-450 [facility] Comment on above: Performed By: #### A 1C #### [facility] [address] [address] [address] Rosemary Ames RBC 5.14 106/ul Normal 4.20-5.40 [facility] Comment on above: Performed By: #### A 1C #### [facility] [address] [place] [address] Dr. Rosemary Ames WBC 7.4 103/ul Normal 4.0-11.0 [facility] Comment on above: Performed By: #### A 1C #### [facility] [address] [place] [address] Dr. Rosemary Ames [facility] SARS-CoV-2 (COVID-19) RNA EZEKIEL+probe Ql (Unsp spec) Not detected Normal NOT DETECTED [facility] Comment on above: Result Comment: [...] for this test is supported by the [employer] Supervisor of Health and Human Service's declaration that [...] used). Performed By: #### A 1C #### [facility] [address] [place] [address] Dr. Rosemary Ames D-DIMERon 03-13-2022 D-DIMER 0.26 mg/L FEU Normal <=0.59 [facility] Comment on above: Performed By: #### T 7, LIPID, TSH, CMADM, BNP, CMP #### [facility] [address] [place] [address] Dr. Rosemary Ames D-DIMER COMMENTS SEE BELOW Normal [facility] Comment on above: Result Comment: Incr [...] 7, LIPID, TSH, CMADM, BNP, CMP #### [facility] [address] [place] [address] Dr. Rosemary Ames ER URINE PROFILEon 3 Bilirubin Ql (U) Negative Normal NEGATIVE [facility] Comment on above: Performed By: #### E RUR #### [facility] [address] [place] [address] Dr. Rosemary Ames Clarity (U) CLEAR Normal CLEAR [facility] Comment on above: Performed By: #### E RUR #### [facility] [address] [place] [address] Dr. Rosemary Ames Color (U) LT. YELLOW Normal YELLOW [facility] Comment on above: Performed By: #### E RUR #### [facility] [address] [place] [address] Dr. Rosemary MARTIN A micrscopic examination will be performed if indicated. Normal [facility] Comment on above: Performed By: #### E RUR #### [facility] [address] [place] [address] Dr. Rosemary Ames Glucose Ql (U) Negative Normal NEGATIVE [facility] Comment on above: Performed By: #### E RUR #### [facility] [address] [place] [address] Dr. Rosemary Ames Hemoglobin Ql (U) Negative Normal NEGATIVE [facility] Comment on above: Performed By: #### E RUR #### [facility] [address] [place] [address] Dr. Rosemary Ames Ketones Ql (U) Negative Normal NEGATIVE [facility] Comment on above: Performed By: #### E RUR #### [facility] [address] [place] [address] Dr. Rosemary Ames LEUKOCYTES Negative Normal NEGATIVE [facility] Comment on above: Performed By: #### E RUR #### [facility] [address] [place] [address] Dr. Rosemary Ames Nitrite Ql (U) Negative Normal NEGATIVE [facility] Comment on above: Performed By: #### E RUR #### [facility] [address] [place] [address] Dr. Rosemary Ames pH (U) 6.0 [pH] Normal 5-9 [facility] Comment on above: Performed By: #### E RUR #### [facility] [address] [place] [address] Dr. Rosemary Ames SPEC GRAVITY 1.015 Normal 1.005-<=1.[address] [facility] Comment on above: Performed By: #### E RUR #### [facility] [address] [place] [address] Dr. Rosemary Ames UA PROTEIN Negative Normal NEGATIVE/ TRACE [facility] Comment on above: Performed By: #### E RUR #### [facility] [address] [place] [address] Dr. Rosemary Ames UR MICRO IND NOT INDICATED Normal [facility] Comment on above: Performed By: #### E RUR #### [facility] [address] [place] [address] Dr. Rosemary Ames Urobilinogen Qn (U) 0.2 {Vincent'U}/dL Normal 0.2 - 1. 0 [facility] Comment on above: Performed By: #### E RUR #### [facility] [address] [place] [address] Dr. Rosemary Ames INFLUENZA A AND B AGon 03-13 INFLUANEGH SEE BELOW Normal [facility] Comment on above: Result Comment: Nega tive for Flu A protein angiten. Infection due to Flu A cannot be ruled out. Flu A angiten in the sample may be below the detection limit of the test. Performed By: #### E RUR #### [facility] [address] [place] [address] Dr. Rosemary Ames [facility] SEE BELOW Normal [facility] Comment on above: Result Comment: Nega tive for Flu B protein antigen. Infection due to Flu B cannot be ruled out. Flu B antigen in the sample may be below the detection limit of the test. Performed By: #### E RUR #### [facility] [address] [place] [address] Dr. Rosemary Ames INFLUENZA A AG Negative Normal NEGATIVE SEE COMMENT [facility] Comment on above: Performed By: #### E RUR #### [facility] [address] [place] [address] Dr. Rosemary Ames INFLUENZA B AG Negative Normal NEGATIVE SEE COMMENT [facility] Comment on above: Performed By: #### E RUR #### [facility] [address] [place] [address] Dr. Rosemary Ames LACTATE/LACTIC ACIDon 2022 Lactate [Moles/Vol] 2.0 mmol/L Critically high 0.4-1.9 [facility] Comment on above: Performed By: #### A 1C #### [facility] [address] [place] [address] Dr. Rosemary Ames LIPASEon 03-13-2022 Lipase [Catalytic activity/Vol] 79.0 U/L Normal 73.0-393.0 [facility] Comment on above: Performed By: #### A 1C #### [facility] [address] [place] [address] Dr. Rosemary Ames PREG HCG QUALon 03-13-2022 , QUAL Negative Normal NEGATIVE [facility] Comment on above: Performed By: #### A 1C #### [facility] [address] [place] [address] Dr. Rosemary Ames PROF 14(COMP METB)on 023 Albumin [Mass/Vol] 4.1 g/dL Normal 3.4-5.0 [facility] Comment on above: Performed By: #### A 1C #### [facility] [address] [place] [address] Dr. Rosemary Ames Albumin/Globulin [Mass ratio] 1.1 {ratio} Normal [facility] Comment on above: Performed By: #### A 1C #### [facility] [address] [place] [address] Dr. Rosemary Ames ALP [Catalytic activity/Vol] 77 U/L Normal 46-116 [facility] Comment on above: Performed By: #### A 1C #### [facility] [address] [place] [address] Dr. Rosemary Ames ALT [Catalytic activity/Vol] 149 U/L Critically high 14-59 [facility] Comment on above: Performed By: #### A 1C #### [facility] [address] [place] [address] Dr. Rosemary Ames Anion gap [Moles/Vol] 16.0 mmol/L Normal [facility] Comment on above: Performed By: #### A 1C #### [facility] [address] [place] [address] Dr. Rosemary Ames AST [Catalytic activity/Vol] 82 U/L Critically high 15-37 [facility] Comment on above: Performed By: #### A 1C #### [facility] [address] [place] [address] Dr. Rosemary Ames Bilirubin [Mass/Vol] 1.0 mg/dL Normal 0.2-1.0 [facility] Comment on above: Performed By: #### A 1C #### [facility] [address] [place] [address] Dr. Rosemary Ames Calcium [Mass/Vol] 9.1 mg/dL Normal 8.5-10.1 [facility] Comment on above: Performed By: #### A 1C #### [facility] [address] [place] [address] Dr. Rosemary Ames Chloride [Moles/Vol] 96 mmol/L Critically low 98-107 [facility] Comment on above: Performed By: #### A 1C #### [facility] [address] [place] [address] Dr. Rosemary Ames CO2 [Moles/Vol] 25.7 mmol/L Normal 21.0-32.0 [facility] Comment on above: Performed By: #### A 1C #### [facility] [address] [place] [address] Dr. Rosemary Ames Creatinine [Mass/Vol] 0.78 mg/dL Normal 0.55-1.02 [facility] Comment on above: Performed By: #### A 1C #### [facility] [address] [address] [address] Rosemary Ames EGFR-AF MALIAN >60 Normal >=60 [facility] Comment on above: Performed By: #### A 1C #### [facility] [address] [place] [address] Dr. Rosemary Ames EGFR-NON AF MALIAN >60 Normal >=60 [facility] Comment on above: Performed By: #### A 1C #### [facility] [address] [place] [address] Dr. Rosemary Ames Globulin (S) [Mass/Vol] 3.9 g/dL Normal [facility] Comment on above: Performed By: #### A 1C #### [facility] [address] [place] [address] Dr. Rosemary Ames Glucose [Mass/Vol] 190 mg/dL Critically high 74-106 T [facility] Comment on above: Performed By: #### A 1C #### [facility] [address] [place] [address] Dr. Rosemary Ames Potassium [Moles/Vol] 3.7 mmol/L Normal 3.5-5.1 [facility] Comment on above: Performed By: #### A 1C #### [facility] [address] [place] [address] Dr. Rosemary Ames Protein [Mass/Vol] 8.0 g/dL Normal 6.4-8.2 [facility] Comment on above: Performed By: #### A 1C #### [facility] [address] [place] [address] Dr. Rosemary Ames Sodium [Moles/Vol] 134 mmol/L Critically low 136-145 Th [facility] Comment on above: Performed By: #### A 1C #### [facility] [address] [address] [address] Rosemary Ames Urea nitrogen [Mass/Vol] 9.0 mg/dL Normal 7.0-18.0 [facility] Comment on above: Performed By: #### A 1C #### [facility] [address] [address] [address] Rosemary Ames Urea nitrogen/Creatinine [Mass ratio] 11.5 mg/mg Normal [facility] Comment on above: Performed By: #### A 1C #### [facility] [address] [address] [address] Rosemary Ames TROPONIN, HIGH SENSITIVITYon 03-13-2022 HSTROP <4.0 Normal 4.0-51.3 [facility] Comment on above: Result Comment: CUT- OFF POINTS HAVE BEEN ESTABLISHED BASED ON THE FOURTH UNIVERSAL DEFINITIONS OF MYOCARDIAL INFARCTION. THE UPPER REFERENCE LIMIT (URL) OF TROPONIN, DEFINED THE 99TH PERCENTILE OF cTnI DISTRIBUTION IN A REFERENCE POPULATION, HAS BEEN CONFIRMED THE DECISION THRESHOLD FOR AL DIAGNOSIS. Previously reported as: 3.9 On 03/13/2022 18:24 By DM9 Performed By: #### A 1C #### [facility] [address] [place] [address] Dr. Rosemary Ames TSHon 03-13-2022 TSH 0.440 uIU/mL Normal 0.358-3.740 [facility] Comment on above: Performed By: #### A 1C #### [facility] [address] [place] [address] Dr. Rosemary Ames XR CHEST 1 Von [...] TUAN LEWIS Date: 2022-03-13 18:59 Normal [facility] INSULINon 12-11-2021 Insulin 40.7 uIU/mL Critically high 2.6-24.9 [facility] Comment on above: Performed By: #### A 1C #### [facility] [address] [place] [address] Dr. Rosemary Ames BNPon 12-10-2021 NT PRO BNP <11.1 Normal <=450.0 [facility] Comment on above: Performed By: #### T 7, LIPID, TSH, CMADM, BNP, CMP #### [facility] [address] [address] [address] Rosemary Ames CARDIAC RY ADMITon 022 CK [Catalytic activity/Vol] 80 U/L Normal 26-192 [facility] Comment on above: Performed By: #### T 7, LIPID, TSH, CMADM, BNP, CMP #### [facility] [address] [place] [address] Dr. Rosemary Ames CK.MB [Mass/Vol] 0.56 ng/mL Normal <=3.60 [facility] Comment on above: Performed By: #### T 7, LIPID, TSH, CMADM, BNP, CMP #### [facility] [address] [place] [address] Dr. Rosemary Ames HSTROP 5.3 pg/mL Normal 4.0-51.3 [facility] Comment on above: Result Comment: CUT- OFF POINTS HAVE BEEN ESTABLISHED BASED ON THE FOURTH UNIVERSAL DEFINITIONS OF MYOCARDIAL INFARCTION. THE UPPER REFERENCE LIMIT (URL) OF TROPONIN, DEFINED THE 99TH PERCENTILE OF cTnI DISTRIBUTION IN A REFERENCE POPULATION, HAS BEEN CONFIRMED THE DECISION THRESHOLD FOR AL DIAGNOSIS. Performed By: #### T 7, LIPID, TSH, CMADM, BNP, CMP #### [facility] [address] [place] [address] Dr. Rosemary Ames RADHA 26 ng/mL Normal 9-82 [facility] Comment on above: Performed By: #### T 7, LIPID, TSH, CMADM, BNP, CMP #### [facility] [address] [address] [address] Rosemary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 Comment on above: Performed By: #### C AKSHAT #### [facility] [address] [place] [id number] Vital Signs Date Time Vital Sign Value Performing Clinician Facility 05-07-2023 15:08-0500 Body height 152.4 cm Opal Heath APRNDivvyCloud [facility] Phone[facility] 05-07-2023 15:08-0500 Body mass index (BMI) [Ratio] 48.43 kg/m2 Opal Heath APRNDivvyCloud Work Phone: [employer] [facility] 05-07-2023 15:08-0500 Body weight 112.49 kg Opal Heath APRNDivvyCloud Work [facility] 05-07-2023 15:08-0500 Diastolic blood pressure 64 mm[Hg] Opal Heath APRNDivvyCloud [facility] 05-07-2023 15:08-0500 Heart rate 111 /min Opal Heath CERTIFIED MEETING PROFESSIONAL-MORTARMAN Work Phone: [facility] 05-07-2023 15:08-0500 Systolic blood pressure 136 mm[Hg] Opal Heath APRN-MORTARMAN Work Phone: [facility] 05-07-2023 14:16-0500 Body height 152.4 cm Tt Ed [facility] 05-07-2023 14:16-0500 Body mass index (BMI) [Ratio] 48.63 kg/m2 [facility] Ed [facility] 05-07-2023 14:16-0500 Body weight 112.95 kg [facility] 04-17-2023 10:25-0500 Body mass index (BMI) [Ratio] 47.85 kg/m2 Mario Zoraida DO Work Phone: [facility] 04-17-2023 10:25-0500 Body weight 111.13 kg Mario Zoraida DO Work Phone: [facility] 04-17-2023 10:25-0500 Diastolic blood pressure 76 mm[Hg] Mario Zoraida DO Work Phone: [facility] 04-17-2023 10:25-0500 Systolic blood pressure 122 mm[Hg] Mario Zoraida DO Work Phone: [facility] 08-27-2021 11:09-0400 Body height 152.4 cm Gregorio Floyd MD Work Phone: [facility] 08-27-2021 11:09-0400 Body mass index (BMI) [Ratio] 46.68 kg/m2 Gregorio Floyd MD Work Phone: [facility] 08-27-2021 11:09-0400 Body weight 108.41 kg Gregorio Floyd MD Work Phone: [facility] 08-27-2021 11:09-0400 Diastolic blood pressure 86 mm[Hg] Gregorio Floyd MD Work Phone: [facility] 08-27-2021 11:09-0400 Heart rate 97 /min Gregorio Floyd MD Work Phone: [facility] 08-27-2021 11:09-0400 Systolic blood pressure 125 mm[Hg] Gregorio Floyd MD Work Phone: [facility] 08-25-2021 14:00-0400 Diastolic blood pressure 81 mm[Hg] Tyler Melina [facility] 08-25-2021 14:00-0400 Heart rate 85 /min Tyler Melina [facility] 08-25-2021 14:00-0400 Mean blood pressure 100 mm[Hg] Tyler Melina [facility] 08-25-2021 14:00-0400 Respiratory rate 16 /min Tyler Melina [facility] 08-25-2021 14:00-0400 SaO2% (BldA) [Mass fraction] 98 % Tyler Melina [facility] 08-25-2021 14:00-0400 Systolic blood pressure 138 mm[Hg] Tyler Melina [facility] 08-25-2021 01:00-0400 Diastolic blood pressure 85 mm[Hg] Tyler Melina [facility] 08-25-2021 01:00-0400 Heart rate 87 /min Tyler Melina [facility] 08-25-2021 01:00-0400 Respiratory rate 16 /min Tyler Melina [facility] 08-25-2021 01:00-0400 SaO2% (BldA) [Mass fraction] 98 % Tyler Melina [facility] 08-25-2021 01:00-0400 Systolic blood pressure 140 mm[Hg] Tyler Melina [facility] 08-25-2021 00:00-0400 Diastolic blood pressure 89 mm[Hg] Tyler Melina [facility] 08-25-2021 00:00-0400 Heart rate 95 /min Tyler Melina [facility] 08-25-2021 00:00-0400 SaO2% (BldA) [Mass fraction] 97 % Tyler Melina [facility] 08-25-2021 00:00-0400 Systolic blood pressure 149 mm[Hg] [facility] 08-24-2021 22:50-0400 Body temperature 100.22 [degF] [facility] Encounters Encounter Date Encounter Type Care Provider Facility Start: 05-29-2023 End: 05-29-2023 ambulatory MARIO CONWAY Not Available Start: 05-29-2023 End: 05-29-2023 [facility] Start: 05-29-2023 End: 05-29-2023 Office outpatient visit 25 minutes Leana Burr MD Work Phone: [facility] Comment on above: Type 2 diabetes naz itus in , second trimester (Primary Dx) Start: 05-20-2023 End: 05-20-2023 Orders Only Mary Guidry APRN-CNM Work Phone: [facility] Comment on above: Type 2 diabetes naz itus in , second trimester (Primary Dx) Start: 05-20-2023 End: 05-20-2023 Office outpatient new 45 minutes Leana Burr MD Work Phone: [facility] Comment on above: Type 2 diabetes naz itus in , second trimester (Primary Dx) Start: 05-13-2023 Telephone encounter Joann pastrana RN Work Phone: [facility] Start: 05-12-2023 Telephone encounter Joann pastrana RN Work Phone: [facility] Start: 05-12-2023 End: 05-12-2023 ambulatory SHWETHA CARTER Not Available Start: 05-08-2023 Orders Only Queta Zazueta [facility]- [facility] at [facility] Comment on above: Type 2 diabetes naz itus in , second trimester (Primary Dx) Start: 05-07-2023 End: 05-07-2023 Office outpatient visit 25 minutes Opal Heath CERTIFIED MEETING PROFESSIONAL-Toonimo Work Phone: [facility] Comment on above: Type 2 diabetes naz itus in , second trimester (Primary Dx); Insulin pump in place; HTN in , chronic Start: 05-07-2023 End: 05-07-[address] Work Phone: [facility] Comment on above: Type 2 diabetes naz itus in , second trimester (Primary Dx); Pre-existing type 2 diabetes mellitus during in first trimester Start: 04-23-2023 Chart abstracting Opal falk CERTIFIED MEETING PROFESSIONAL-MORTARMAN Work Phone: [facility] Start: 04-23-2023 Telephone encounter Danyell Ortiz RN Nm ternal- [facility] at [facility] Start: 04-17-2023 End: 04-17-2023 ambulatory MARIO ZORAIDA Not Available Start: 04-17-2023 End: 04-17-2023 Office outpatient visit 15 minutes Mario Zoraida DO Work Phone: [facility] Comment on above: Bleeding in early pr egnancy; Follow-up exam Start: 04-14-2023 End: 04-14-2023 ambulatory MARIO ZORAIDA Not Available Start: 03-14-2023 End: 01-05-2024 ambulatory MARIO ZORAIDA Not Available Start: 05-31-2022 [...] Work Phone: [facility] Comment on above: Type 2 diabetes naz itus with hyperglycemia, unspecified whether termite helper insulin use (HCC) (Primary Dx); Thyroid disorder; Hair loss Start: 08-24-2021 End: 08-25-2021 Emergency department patient visit Tyler Summers [facility] Start: 08-15-2021 End: 08-15-2021 ambulatory GREGORY FAN . Facility:[facility] Start: 06-13-2021 End: 06-14-[address] CHAMP BELL . Facility:[facility] Start: 05-04-2021 Transcribe Orders Champ Bell MD Work Phone: [facility] Comment on above: Thyroid disorder (Pr imary Dx); Hair loss Procedures Date Procedure Procedure Detail Performing Clinician Start: 05-12-2023 Microscopic observat ion [Identifier] in Cervix by Cyto stain Leana Burr MD Work Phone: Start: 04-01-2023 Antibody screen Bebe Heath CERTIFIED MEETING PROFESSIONAL-MORTARMAN Work Phone: Start: 04-01-2023 Bacteria identified in [...] Treatment Date Care Activity Detail Author Start: 05-11-2026 Screening for malign ant neoplasm [facility]ix [facility] Start: 05-28-2024 Tobacco Screening Tobacco Screening [facility] Start: 05-07-2024 Adult BMI Screening [facility] Start: 05-07-2024 Tobacco Screening [facility] Start: 05-07-2024 End: 05-07-2024 US MFM with or without consult US MFM with or without consult Imaging Routine Type 2 diabetes mellitus in , second trimester Expected: 05/07/2024 (Approximate), Expires: 05/07/2024 [facility]: Comment on above: Expected: 05/07/2024 (Approximate), Expires: 05/07/2024 Start: 06-11-2023 End: 06-11-2023 Patient encounter procedure 06/11/2023 1:00 PM EDT Appointment [facility] [address] [place] [id number] [facility] Start: 06-04-2023 End: 06-04-2023 Patient encounter procedure 06/04/2023 10:45 AM EDT Office Visit [facility] [place] [address] Leana Burr MD [address] [place] [address] [facility] Start: 05-29-2023 End: 05-29-2023 Patient encounter procedure 05/29/2023 10:45 AM EDT Office Visit [facility] [place] [phone] Leana Burr MD [address] [place] [address] [facility] Start: 05-20-2023 End: 05-20-2023 Telemedicine consultation with patient 05/20/2023 8:00 AM EDT Telemedicine [facility] [address] [place] [address] Leana Burr MD [address] [place] [address] [facility] Start: 05-12-2023 End: 05-12-2023 Patient encounter procedure 05/12/2023 8:30 AM EST Routine [facility] [address] [place] [address] [place] [address] Shwetha Carter PA [address] [place] [address] [place] [address] [facility] Start: 05-07-2023 End: 05-07-2023 Patient encounter procedure 05/07/2023 3:00 PM EST Office Visit [facility] [address] [place] [address] Opal Hetah, CERTIFIED MEETING PROFESSIONAL-MORTARMAN [address] [place] [address] [facility] Start: 05-07-2023 End: 05-07-2023 ambulatory 05/07/2023 1:00 PM EST Support Visit [facility] [address] [place] [address] Shital Fritz, RD [address] [facility] [address] [place] [address] [facility] Start: 11-08-2022 Influenza vaccination Influenza Vacc ine [facility] Start: 11-27-2021 End: 11-27-2021 Patient encounter procedure 11/27/2021 Office Visit Endocrinology Gregorio Floyd MD [address] [place] [address] [facility] Start: 11-27-2021 Hemoglobin A1c measurement A1C [facility] Start: 11-08-2021 Influenza vaccination Sequenti al Influenza Vaccine (Season Ended) [facility] Start: 06-25-2021 End: 06-25-2021 Patient encounter procedure 06/25/2021 Office Visit Endocrinology Gregorio Floyd MD [address] [place] [address] [facility] Start: 11-08-2020 Influenza vaccination Sequenti al Influenza Vaccine (#1) [facility] Start: 11-14-2015 Screening for malign ant neoplasm of cervix Pap Smear [facility] Start: 2013 DTaP,Tdap and Td Vaccines (1 - Tdap) DTaP,Tdap and Td Vaccines (1 - Tdap) [facility] Start: 2012 Adult BMI Follow Up Plan Adult BMI Follow Up Plan [facility] Start: 2012 Adult BMI Screening Adult BMI Screen ing [facility] Start: 2012 Diabetic foot examination Diabetic Foot Exam [facility] Start: 2012 Hepatitis C screening Hepatitis C Sc reening [facility] Start: 2009 HIV screening HIV Screening [facility] Start: 2006 Depression screening using PHQ-9 (Patient Health Questionnaire 9) score [facility] Start: 2006 Tobacco Screening Tobacco Screening [facility] Start: 2005 DTaP,Tdap and Td Vaccines (5 - Tdap) DTaP,Tdap and Td Vaccines (5 - Tdap) [facility] Start: 2004 Diabetic foot examination Foot Exam [facility] Start: 2004 Microalbumin measurement, urine, quantitative Urine Microalbumin [facility] Start: 2004 Ophthalmic examinati on and evaluation Ophthalmology Exam [facility] Start: 2000 Pneumococcal Vaccine : Ped or At-Risk (1 - PCV) Pneumococcal Vaccine: Ped or At-Risk (1 - PCV) [facility] Start: 11-14-1999 COVID-19 Vaccine (#1) COVID-19 Vacci ne (#1) [facility] Start: 11-14-1999 COVID-19 Vaccine (1) COVID-19 Vaccin e (1) [facility] Start: 1997 History and physical examination, annual for health maintenance Wellness Visit [facility] Start: 1994 Glaucoma screening Diabetic Op hthalmology Exam [facility] Start: 1994 Screening for malign ant neoplasm of cervix Pap Smear [facility] Start: 1994 Tetanus vaccination Tetanus: Every 1 0yrs [facility] Start: 1994 Urine screening for protein Urine Microalbumin [facility] End: 08-27-2022 C peptide [Mass/volume] in Serum or Plasma C-peptide Lab Routine Type 2 diabetes mellitus with hyperglycemia, unspecified whether termite helper insulin use (HCC) 1 Occurrences starting 08/27/2021 until 08/27/2022 [facility] Comment on above: 1 Occurrences starti ng 08/27/2021 until 08/27/2022 End: 05-19-2024 C-peptide C-peptide Lab Routine Type 2 diabetes mellitus in , second trimester 1 Occurrences starting 05/20/2023 until 05/19/2024 [facility] Comment on above: 1 Occurrences starti ng 05/20/2023 until 05/19/2024 End: 05-19-2024 GAD65 Ab assay GAD65 Ab assay Lab Routine Type 2 diabetes mellitus in , second trimester 1 Occurrences starting 05/20/2023 until 05/19/2024 [employer] Phone: Comment on above: 1 Occurrences starti ng 05/20/2023 until 05/19/2024 End: 08-27-2022 Glucose [Mass/volume] in Serum or Plasma Glucose Lab Routine Type 2 diabetes mellitus with hyperglycemia, unspecified whether termite helper insulin use (HCC) 1 Occurrences starting 08/27/2021 until 08/27/2022 [facility] Comment on above: 1 Occurrences starti ng 08/27/2021 until 08/27/2022 End: 05-19-2024 Glucose [Mass/volume] in Serum or Plasma Glucose Lab Routine Type 2 diabetes mellitus in , second trimester 1 Occurrences starting 05/20/2023 until 05/19/2024 [facility] Comment on above: 1 Occurrences starti ng 05/20/2023 until 05/19/2024 Hepatic function 200 0 panel - Serum or Plasma Hepatic function panel Lab Routine Type 2 diabetes mellitus with hyperglycemia, unspecified whether termite helper insulin use (HCC) Ordered: 08/27/2021 [facility] Comment on above: Ordered: 08/27/2021 End: 05-19-2024 Insulinoma Associated Antibody 2 Insulinoma Associated Antibody 2 Lab Routine Type 2 diabetes mellitus in , second trimester 1 Occurrences starting 05/20/2023 until 05[facility]19/[facility]: 1 Occurrences starti ng 05/20/2023 until 05/19/2024 End: 08-27-2022 Islet cell antibody measurement Anti-Islet Cell (GAD65) Antibody Lab Routine Type 2 diabetes mellitus with hyperglycemia, unspecified whether fci insulin use (HCC) 1 Occurrences starting 08/27/2021 until 08/27/2022 [facility] Comment on above: 1 Occurrences starti ng 08/27/2021 until 08/27/2022 End: 08-27-2022 Lipid 1996 panel - Serum or Plasma Lipid Panel Lab Routine Type 2 diabetes mellitus with hyperglycemia, unspecified whether termite helper insulin use (HCC) 1 Occurrences starting 08/27/2021 until 08/27/2022 [facility] Comment on above: 1 Occurrences starti ng 08/27/2021 until 08/27/2022 Microalbumin measurement, urine, quantitative Microalbumin/Creatinine Ratio, UR Random Lab Routine Type 2 diabetes mellitus with hyperglycemia, unspecified whether termite helper insulin use (HCC) Ordered: 08/27/2021 [facility] Work Phone: Comment on above: Ordered: 08/27/2021 Payers Date Payer Category Payer Medicaid [id number] 1994 Unknown [id number] 2.16. [id number] 1994 Unknown [id number] 2.16.84 0.1.002321.3.579.2.593 1994 Unknown [id number] 2.16.84 0.1.715105.3.579.2.593 1994 Unknown [id number] 2.16.84 0.1.256693.3.579.2.593 1994 Unknown [id number] 2.16.84 0.1.246700.3.579.2.593 1994 Unknown [id number] 2.16.84 0.1.057036.3.579.2.593 1994 Unknown [id number] 2.16.84 0.1.604573.3.579.2.593 1994 Unknown [id number] 2.16.84 0.1.798249.3.579.2.593 1994 Unknown [id number] 2.16.84 0.1.969926.3.579.2.593 1994 Unknown [id number] 2.16.84 0.1.683938.3.579.2.593 1994 Unknown [id number] 2.16.84 0.1.280437.3.579.2.593 1994 Unknown [id number] 2.16.84 0.1.258694.3.579.2.593 1994 Unknown [id number] 2.16.84 0.1.876892.3.579.2.593 1994 Unknown [id number] 2.16.84 0.1.439211.3.579.2.593 1994 Unknown [id number] 2.16.8 40.1.146598.3.579.2.1286 1994 Unknown [id number] 2.16.8 40.1.792052.3.579.2.1286 1994 Unknown [id number] 2.16.8 40.1.724538.3.579.2.1286 1994 Unknown [id number] 2.16.8 40.1.343143.3.579.2.1286 1994 Unknown [id number] 2.16.84 0.1.507522.3.579.2.1259 1994 Unknown [id number] 2.16.84 0.1.868969.3.579.2.1259 1994 Unknown [id number] 2.16.84 0.1.907667.3.579.2.1259 1994 Unknown [id number] 2.16.84 0.1.207238.3.579.2.1259 1994 Unknown [id number] 2.16.840 .1.594509.3.579.2.1259 1960 Medicaid [id number] 1959 Unknown [id number] 1959 Unknown [id number] 1959 Unknown [id number] Social History Date Type Detail Facility Start: 04-23-2023 Tobacco smoking status NHIS Tobacco smoking consumption unknown [facility] Start: 1995 Sex Assigned At Not on file [facility] Start: 08-24-2021 Tobacco smoking status Never [facility] Start: 03-24-2023 End: 05-07-2023 Sex Assigned At Female [facility] Start: 08-17-2021 End: 08-27-2021 Exposure to SARS-CoV-2 (event) Not sure [facility] Start: 03-24-2023 End: 05-07-2023 Tobacco smoking status NHIS Never smoked tobacco [facility] Start: 04-17-2023 Alcohol intake Lifetime non-d jorge (finding) [facility] Start: 03-24-2023 End: 05-07-2023 History of Social function [facility] Start: 02-04-2023 [facility] Start: 1995 Sex Assigned At Female [facility] Start: 02-27-2023 Gender identity Identifies as female gender (finding) [facility] Start: 05-07-2023 Tobacco use and exposure Smokeless tobacco non-user [facility] Start: 05-07-2023 End: 05-29-2023 Alcohol intake Ex-drinker (finding) [facility] Procedure Code Equipment Code Equipment Origin al Text Equipment Identifier Dates 1 each by Other route if needed [id number] Start: 03-11-2023 Use a new needle with each injection [id number] Start: 05-07-2023 Functional Status Date Assessment Result Facility 08-24-2021 Functional Status N/A [facility] Clinical Notes 08-24-2021 to 05-29-2023 Leana Burr MD - 05/29/2023 10:45 AM Maria A Burr MD - 05/20/2023 8:00 AM EDTTelephone Encounter - Joann Walsh RN - 05/13/2023 3:19 PM Donte Zazueta CMA - 05/07/2023 3:00 PM EST Note Date & Type Note Facility 05-29-2023 History of Present illness Narrative [facility]- Diabetes Visit TELEMEDICINE VISIT: This is an audiovisual visit. This is done to assess the patient and to determine the best medical care. The patient was located at home in [place] and the provider was located at the medical office in [place]. The patient states they are not driving or taking care of other activities now. Consent to proceed obtained. Tess Pfeiffer is a 27 y.o. with type 2 diabetes. She was diagnosed in 2014 and was started on oral medications. She was tried on jardiance (yeast infections), metformin (GI side effects), glipizide (ineffective), and Trulicity (some benefit) and has been treated with insulin pump since 2017. Her current regimen is: Omnipod insulin pump with dexcom G6 sensor She uses dexcom to monitor her BG. She requires this testing due to Hyperglycemia, risk of nocturnal hypoglycemia, variable BG, need for frequent dose adjustments. Patient is feeling well today. She presents as a new patient. She is at 18w2d with Estimated Date of Delivery: 10/28/23. She is referred from [facility] who is managing along with us. She has had her diabetes education with [facility]. Please see media for full pump download. Usually bolusing once daily. BG rise at other meals/ snacks when not bolusing. If no bolus peak 250s, if she does bolus usually peak of 200. BG overnight in lower 100s. She has been sick the last week with URI. Congestion and voice hoarseness. She was sent to the hospital because she was not feeling movement- monitoring ok. Currently feeling flutters at home Diet: trying to improve. Doesn't usually eat breakfast but has been doing eggs and toast recently Exercise: rare Past admissions for DKA within last year: none. Complications: History of AL, CHF: none Medications none Last Lipid panel drawn due after History of HTN: no Medications none History of Diabetic Retinopathy: unknown. Last seen [employer] unknown History of peripheral neuropathy: none Medications none History of diabetic ulcers no Following with podiatry no Last seen n/a History of autonomic neuropathy: none History of Nephropathy? none Follows with Nephrology no. Last GFR or urinary microalbumin/ ratio urinary protein to be checked in . Medications none Thyroid?: was previously on levothyroxine, not currently. Medications: none. Last labs appropriate for Other autoimmune conditions: none Patient denies chest pain, vision changes, SOB, Nausea/ vomiting, numbness/ tingling/ pain in extremities, foot pain or ulcerations or edema. ROS otherwise negative if not mentioned above. Past Medical History: Diagnosis Date Anxiety Depression Diabetes mellitus ([facility]) Disease of thyroid gland Hypertension History reviewed. No pertinent surgical history. Family History Problem Relation Age of Onset Lung cancer Maternal Grandmother Hypertension Father Diabetes Father Diabetes Mother Hypertension Mother Social History Socioeconomic History Marital status: Spouse name: Not on file Number of children: Not on file Years of education: Not on file Highest education level: Not on file Occupational History Not on file Tobacco Use Smoking status: Never Smokeless tobacco: Never Vaping Use Vaping Use: Never used Substance and Sexual Activity Alcohol use: Not Currently Drug use: Never Sexual activity: Never Partners: Male control/protection: Other Other Topics Concern Not on file Social History Narrative Not on file Social Determinants of Health Financial Resource Strain: Not on file Food Insecurity: No Food Insecurity (05/07/2023) Hunger Screening Food Insecurity - Worry: Never True Food Insecurity - Inability: Never True Transportation Needs: Not on file Physical Activity: Not on file Stress: Not on file Social Connections: Not on file Interpersonal Safety: Not on file Housing Instability: Not on file Current Outpatient Medications: aspirin 81 mg, Take 1 tablet (81 mg total) by mouth in the morning., Disp: , Rfl: desvenlafaxine (PRISTIQ) 100 mg 24 hr tablet, Take 1 tablet (100 mg total) by mouth in the morning., Disp: , Rfl: DEXCOM G6 SENSOR device, 1 Unit by abdominal subcutaneous route Daily at 0700., Disp: , Rfl: DEXCOM G6 TRANSMITTER device, 1 Unit by abdominal subcutaneous route every 3 (three) months., Disp: 1 each, Rfl: 3 insulin glargine (LANTUS SOLOSTAR U-100 INSULIN) 100 unit/mL (3 mL) insulin pen, Prime with 2 units then inject 50 units each evening in the presence of pump failure, Disp: 15 mL, Rfl: 3 insulin lispro (HumaLOG U-100 Insulin) 100 unit/mL injection, Use up to 100 units per day via insulin pump., Disp: 90 mL, Rfl: 3 insulin lispro (HumaLOG) 100 unit/mL insulin pen, Inject 48 Units under the skin in the morning and 48 Units at noon and 48 Units in the evening. Inject with meals., Disp: 15 mL, Rfl: 0 lamoTRIgine (LaMICtal) 100 mg tablet, Take 1 tablet (100 mg total) by mouth in the morning. Pt to take 2 tablets daily total 200mg., Disp: , Rfl: M-MADHURI PLUS 27 mg iron- 1 mg tablet, Take 1 tablet by mouth in the morning., Disp: , Rfl: metoprolol tartrate (LOPRESSOR) 25 [...] every morning before breakfast., Disp: , Rfl: pen needle, diabetic (BD ULTRA-FINE RICHELLE PEN NEEDLE) 32 gauge x 5/32 needle, Use a new needle with each injection, Disp: 100 each, Rfl: 6 There are no hospital problems to display for this patient. EXAM: There were no vitals taken for this visit. There is no height or weight on file to calculate BMI. Video visit Voice is hoarse Respiratory: sounds congested, Regular rate of breathing Abdomen: gravid Assessment and Plan Tess Pfeiffer is a 27 y.o. with type 2 diabetes. She is now at 17w0d with Estimated Date of Delivery: 10/28/23. She has had diabetes education with [facility]. We reviewed the following We have discussed the issue of insulin-dependent diabetes mellitus and the effect of in detail. There is an elevated risk of malformation of the order of 22% in those who have hemoglobin A1C 8.5 and higher. Patient aware that maternal hyperglycemia results in hyperglycemia leading to adverse outcomes in the growth and development. We reviewed with her the strategy for improving and outcome should be to achieve euglycemic state. Fasting BG goal 65-90. 1 hour postprandial hyperglycemia < 140. Goal A1c < 6%. She is being treated with insulin pump (unable to tolerate metformin) and has poor, but improving control. A1c goal 6% in Medications: Insulin Instructions Pump Settings insulin lispro 100 unit/mL injection (HumaLOG) Last edited by Leana Burr MD on 05/29/2023 at 11:04 AM Stop automated basal Basal Rate Total Basal Dose: 40.6 units/day Time units/hr 12:00 AM 1.75 6:00 AM 1.75 12:00 PM 1.6 8:00 PM 1.7 Blood Glucose Target Time mg/dL 12:00 AM 110 - 110 Sensitivity Factor Time mg/dL/unit 12:00 AM 15 Carb Ratio Time g/unit 12:00 AM 3 12:00 PM 2 8:00 PM 3 Increase basal rate overnight. Increase meal insulin when she is bolusing mid day She was getting better about bolusing but with illness bolusing once daily. Reminded to continue to bolus each time she eats Labs: checking LATOYA Ab, IA2 Ab, and c peptide. (Reports mom has t1DM and she was very poorly controlled prior to adding insulin. Rule out T1DM) Lifestyle changes: eat breakfast: try low sugar protein shakes or brazilian yogurt if appetite lower in the AM. Complications/ comorbidities Elevated A1c and blood glucose is associated with increased risk for complications including retinal, cardiac, neurological, and renal dysfunction that can lead to vision loss, heart attacks or stroke, amputation and renal failure. Tight glucose control and A1c goal (above) strongly recommended to reduce the risks of these complications/ outcomes. Ongoing diabetes education is encouraged. The signs/symptoms and treatment of hypoglycemia understood. The individual should not drive if symptoms of hypoglycemia are precieved and if possible the blood glucose should be check before driving or participating in dangerous activity. A diabetes ID is recommended. Yearly dilated eye examination and yearly urine Microalbumin to cr ratio are recommended. Goal blood pressure under 130/80. The LDL less than 100 mg/dl for primary prevention atherosclerosis and < 70 mg/dL as secondary prevention. Daily examination of the feet for signs of injury and of the shoes for foreign body or any deformity that could lead to foot injury. : I agree with [facility] recommendations for care. NSTs twice weekly with weekly WEI starting at 32 weeks. Growth US every 4 weeks starting at 28 weeks. Tentative delivery by 39 weeks, but will defer to MFM. Follow up in 1 week. Following at least once per trimester with [facility] as well. LEANA BURR MD [facility] documented in this encounter [facility] 05-20-2023 History of Present illness Narrative [facility]- Diabetes Visit Tess Pfeiffer is a 27 y.o. with type 2 diabetes. She was diagnosed in 2014 and was started on oral medications. She was tried on jardiance (yeast infections), metformin (GI side effects), glipizide (ineffective), and Trulicity (some benefit) and has been treated with insulin pump since 2017. Her current regimen is: Omnipod insulin pump with dexcom G6 sensor She uses dexcom to monitor her BG. She requires this testing due to Hyperglycemia, risk of nocturnal hypoglycemia, variable BG, need for frequent dose adjustments. Patient is feeling well today. She presents as a new patient. She is at 17w0d with Estimated Date of Delivery: 10/28/23. She is referred from [facility] who is managing along with us. She has had her diabetes education with [facility]. Please see media for full pump download. Still on automated basal and it is turning off when she is in glucose ranges. Unfortunately, her basal rates have jeffrey increased and would give her 20 units more than the automated basal has been delivering. She is usually only bolusing once per day. Forgets her pump at home. BG down to 145 which is much improved for her (reports glucose of 300s prior to ). Diet: trying to improve. Doesn't usually eat breakfast but has been doing eggs and toast recently Exercise: rare Past admissions for DKA within last year: none. Complications: History of AL, CHF: none Medications none Last Lipid panel drawn due after History of HTN: no Medications none History of Diabetic Retinopathy: unknown. Last seen [employer] unknown History of peripheral neuropathy: none Medications none History of diabetic ulcers no Following with podiatry no Last seen n/a History of autonomic neuropathy: none History of Nephropathy? none Follows with Nephrology no. Last GFR or urinary microalbumin/ ratio urinary protein to be checked in . Medications none Thyroid?: was previously on levothyroxine, not currently. Medications: none. Last labs appropriate for Other autoimmune conditions: none Patient denies chest pain, vision changes, SOB, Nausea/ vomiting, numbness/ tingling/ pain in extremities, foot pain or ulcerations or edema. ROS otherwise negative if not mentioned above. Past Medical History: Diagnosis Date Anxiety Depression Diabetes mellitus ([facility]) Disease of thyroid gland Hypertension No past surgical history on file. Family History Problem Relation Age of Onset Lung cancer Maternal Grandmother Hypertension Father Diabetes Father Diabetes Mother Hypertension Mother Social History Socioeconomic History Marital status: Spouse name: Not on file Number of children: Not on file Years of education: Not on file Highest education level: Not on file Occupational History Not on file Tobacco Use Smoking status: Never Smokeless tobacco: Never Vaping Use Vaping Use: Never used Substance and Sexual Activity Alcohol use: Not Currently Drug use: Never Sexual activity: Never Partners: Male control/protection: Other Other Topics Concern Not on file Social History Narrative Not on file Social Determinants of Health Financial Resource Strain: Not on file Food Insecurity: No Food Insecurity (05/07/2023) Hunger Screening Food Insecurity - Worry: Never True Food Insecurity - Inability: Never True Transportation Needs: Not on file Physical Activity: Not on file Stress: Not on file Social Connections: Not on file Interpersonal Safety: Not on file Housing Instability: Not on file Current Outpatient Medications: aspirin 81 mg, Take 1 tablet (81 mg total) by mouth in the morning., Disp: , Rfl: desvenlafaxine (PRISTIQ) 100 mg 24 hr tablet, Take 1 tablet (100 mg total) by mouth in the morning., Disp: , Rfl: DEXCOM G6 SENSOR device, 1 Unit by abdominal subcutaneous route Daily at 0700., Disp: , Rfl: DEXCOM G6 TRANSMITTER device, 1 Unit by abdominal subcutaneous route every 3 (three) months., Disp: 1 each, Rfl: 3 insulin glargine (LANTUS SOLOSTAR U-100 INSULIN) 100 unit/mL (3 mL) insulin pen, Prime with 2 units then inject 50 units each evening in the presence of pump failure, Disp: 15 mL, Rfl: 3 insulin lispro (HumaLOG U-100 Insulin) 100 unit/mL injection, Use up to 100 units per day via insulin pump., Disp: 90 mL, Rfl: 3 insulin lispro (HumaLOG) 100 unit/mL insulin pen, Inject 48 Units under the skin in the morning and 48 Units at noon and 48 Units in the evening. Inject with meals., Disp: 15 mL, Rfl: 0 lamoTRIgine (LaMICtal) 100 mg tablet, Take 1 tablet (100 mg total) by mouth in the morning. Pt to take 2 tablets daily total 200mg., Disp: , Rfl: M-MADHURI PLUS 27 mg iron- 1 mg tablet, Take 1 tablet by mouth in the morning., Disp: , Rfl: metoprolol tartrate (LOPRESSOR) 25 [...] every morning before breakfast., Disp: , Rfl: pen needle, diabetic (BD ULTRA-FINE RICHELLE PEN NEEDLE) 32 gauge x 5/32 needle, Use a new needle with each injection, Disp: 100 each, Rfl: 6 There are no hospital problems to display for this patient. EXAM: There were no vitals taken for this visit. There is no height or weight on file to calculate BMI. General- awake/ alert/ pleasant Cardiac: RRR Respiratory: CTAB Abdomen: soft, non-distended Extremities: appropriate coloration, bilateral pulses, no rashes visible Neuro: appropriate gait, appropriate mentation Foot Exam: Visual: no cuts/ sores. Appropriate color, hair growth. Toenails without discoloration. No deformities. No calluses. Palpation: normal DP pulses, warm to touch Monofilament test: positive Appropriate ambulation @ Invalid input(s): LABALBU , BILITOT Assessment and Plan Tess Pfeiffer is a 27 y.o. with type 2 diabetes. She is now at 17w0d with Estimated Date of Delivery: 10/28/23. She has had diabetes education with [facility]. We reviewed the following We have discussed the issue of insulin-dependent diabetes mellitus and the effect of in detail. There is an elevated risk of malformation of the order of 22% in those who have hemoglobin A1C 8.5 and higher. Patient aware that maternal hyperglycemia results in hyperglycemia leading to adverse outcomes in the growth and development. We reviewed with her the strategy for improving and outcome should be to achieve euglycemic state. Fasting BG goal 65-90. 1 hour postprandial hyperglycemia < 140. Goal A1c < 6%. She is being treated with insulin pump (unable to tolerate metformin) and has poor, but improving control. A1c goal 6% in Medications: Insulin Instructions Pump Settings insulin lispro 100 unit/mL injection (HumaLOG) Last edited by Leana Burr MD on 05/20/2023 at 9:08 AM Stop automated basal Basal Rate Total Basal Dose: 38.4 units/day Time units/hr 12:00 AM 1.6 6:00 AM 1.6 12:00 PM 1.6 8:00 PM 1.6 Blood Glucose Target Time mg/dL 12:00 AM 110 - 110 Sensitivity Factor Time mg/dL/unit 12:00 AM 15 Carb Ratio Time g/unit 12:00 AM 3 12:00 PM 2.5 8:00 PM 3 I have changed all of her basal rates down considerably as her current automated basal is providing 34 units but her basal rates were recently increased by a different provider to give 57 units per day. Now she will get 38 units per day. She needs to start taking her bolus before each meal and snack. Usually dosing once daily, this will be her goal for this next week to bolus before most meals. Labs: checking LATOYA Ab, IA2 Ab, and c peptide. (Reports mom has t1DM and she was very poorly controlled prior to adding insulin. Rule out T1DM) Lifestyle changes: eat breakfast: try low sugar protein shakes or brazilian yogurt if appetite lower in the AM. Complications/ comorbidities Elevated A1c and blood glucose is associated with increased risk for complications including retinal, cardiac, neurological, and renal dysfunction that can lead to vision loss, heart attacks or stroke, amputation and renal failure. Tight glucose control and A1c goal (above) strongly recommended to reduce the risks of these complications/ outcomes. Ongoing diabetes education is encouraged. The signs/symptoms and treatment of hypoglycemia understood. The individual should not drive if symptoms of hypoglycemia are precieved and if possible the blood glucose should be check before driving or participating in dangerous activity. A diabetes ID is recommended. Yearly dilated eye examination and yearly urine Microalbumin to cr ratio are recommended. Goal blood pressure under 130/80. The LDL less than 100 mg/dl for primary prevention atherosclerosis and < 70 mg/dL as secondary prevention. Daily examination of the feet for signs of injury and of the shoes for foreign body or any deformity that could lead to foot injury. : I agree with MFM recommendations for care. NSTs twice weekly with weekly WEI starting at 32 weeks. Growth US every 4 weeks starting at 28 weeks. Tentative delivery by 39 weeks, but will defer to MFM. Follow up in 1 week. Following at least once per trimester with MFM as well. LEANA BURR MD [facility] documented in this encounter [facility] 05-13-2023 Miscellaneous Notes Summary: [facility]FM Insulin Pump Changes Called and spoke with Tess regarding Soraida GRAY reviewed [facility] Report and made the following insulin pump changes. All basal doses remain the same. Under Insulin : Carb Ratios (Bolus): 0000 - 1200 3 grams/Unit 1200 - 2000 2.5 grams/Unit 2000 - 0000 3 grams/Unit Changed Target Blood Glucose to 110 mg/dL Emphasized the need to bolus 15 minutes prior to start of meals. Verbalized understanding and denied any questions. documented in this encounter [facility] 05-13-2023 Telephone encounter Note Summary: MFM Insulin Pump Changes Called and spoke with Tess regarding Soraida GRAY reviewed [facility] Report and made the following insulin pump changes. All basal doses remain the same. Under Insulin : Carb Ratios (Bolus): 0000 - 1200 3 grams/Unit 1200 - 2000 2.5 grams/Unit 2000 - 0000 3 grams/Unit Changed Target Blood Glucose to 110 mg/dL Emphasized the need to bolus 15 minutes prior to start of meals. Verbalized understanding and denied any questions. [facility] Work Phone: 05-12-2023 Miscellaneous Notes Summary: [facility] Insulin Pump Questions Called and spoke with Mia about insulin pump questions. When asked if bolusing with each meal, stated has been bad about doing this the past two days and denied any additional injections for bolusing. Stated was not told to turn off automated dosing as has not seen Dr. Vasquez Burr yet - scheduled to see next week 05/20/23. Informed would call back after [facility] provider reviews. [email or web address] Telephone encounter Note Summary: [facility] Insulin Pump Questions Called and spoke with Mia about insulin pump questions. When asked if bolusing with each meal, stated has been bad about doing this the past two days and denied any additional injections for bolusing. Stated was not told to turn off automated dosing as has not seen Dr. Vasquez Burr yet - scheduled to see next week 05/20/23. Informed would call back after [facility] provider reviews. [employer] Work Phone: 05-07-2023 History of Present illness Narrative Headache/epigastric [...] results Have you been seen here at [facility] in a previous ? N/a Recent ER visits or hospitalizations? No Bring blood sugar log or meter with you today? (Please bring them with you for every visit at [facility]) yes Traveled outside the country in the [...] no complaints. She is being followed at [facility] Promedic due to Type 2 DM. See Dexcom [...] TSH 1.05 04/01/2023 No results found for: [id number] No results found for: CREATININE , BUN [...] values to us weekly by e-mail to: [email or web address] or by fax to: [phone] 40 Minutes spent hhmp-ul-bizm; more than 50% of time spent counseling and/or coordinating care with additional time for record review and communication to referring provider. SABINA Uribe 05/07/23 1556 documented in this encounter [facility] 05-07-2023 History of Present illness Narrative [...] care for you: OB Provider Family Doctor Operations Supervisor 2Nd Shift Name: Sebastian Name: No primary care provider on file. Name:[place] City: City: City: Last time seen: Last [...] to take 2 tablets daily total 200mg. M-MADHURI PLUS 27 mg iron- 1 mg [...] demonstration Is there anything about your culture, druze, or personal beliefs we need to know about to care for you: Other none Primary Language spoken: Nepali [22] Primary Language for learning: Nepali Are you currently in a relationship where you are physically hurt, threatened or made to fee afraid? [] Yes [x] No Project Analyst needed? [] Yes [x] No Marital status/Living [...] If yes, where: On thge following scale, [place] the number, which describes your current level [...] Past Medical History: Diagnosis Date Diabetes mellitus ([facility]) Disease of thyroid gland Hypertension OB History [...] to take 2 tablets daily total 200mg. M-MADHURI PLUS 27 mg iron- 1 mg [...] Educational Level high school Family issues none Cultural/ethnic/congregational influences none Exercise approved by MD? Current Exercise program walking Who prepares the meal pt Who purchase food at your home? pt Equipment use for cooking/food storage has all Food Assistance(Ex.WIC, Food [place]) has apt Dining out Yes 1 time per month Appetite/Appetite changes increased Weight History stable Do you have cats at home? Feeding Plans Breast Feeding If you have cats, who cleans the litter box? Cravings/Aversions/Pica none currently Nutrition Assessment Worksheet: Week/Weekend Food Recall Breakfast Arrey Or cereal Or eggs Snack Lunch Grilled cheese Or noodles Snack Dinner 2 Cheeseburger Sugar free pink lemonade Snack Snack Time Tess Pfeiffer present for diet instruction per doctor order [...] time 40 minutes. documented in this encounter [facility] 05-07-2023 Instructions Danyell Ortiz RN - 05/07/2023 [...] HOURS WHILE AWAKE documented in this encounter [facility] 04-23-2023 Miscellaneous Notes Called pt due toher not coming to her appt today and she stated she had left a message that she needed to tammi due to not having transportation to her appt this morning. Her name given back to the schedulers to call and resched her. documented in this encounter [facility] 04-23-2023 Telephone encounter Note Called pt due toher not coming to her appt today and she stated she had left a message that she needed to tammi due to not having transportation to her appt this morning. Her name given back to the schedulers to call and resched her. [facility] 04-17-2023 History of Present illness Narrative Reason [...] Hand fracture, right Type 2 diabetes mellitus ([facility]) Family History Problem Relation Name Age of [...] nursing note reviewed. Exam conducted with a block inspector present. Vitals: Estimated body mass index is 47.85 kg/m as calculated from the following: Height as of 01/22/21: 5'. Weight as of this encounter: 245 [...] Mario Conway DO documented in this encounter [facility] 08-27-2021 Instructions Gregorio Floyd MD - 08/27/2021 [...] this encounter [facility] 08-27-2021 History of Present illness Narrative Images [...] ALKPHOS, BILITOT No results found for: TSH, [id number], THYROIDAB No results found for: PTH, CALCIUM, JACQUES, PHOS Lab Results Component Value Date HGBA1C 7.7 (A) 08/27/2021 No results found for: LDLCALC, CHOL, HDL, TRIG, CHOLHDL No results found for: MICALBCREAT, [id number] No results found for: CPEPTIDE Assessment and [...] acanthosis nigricans indicate T2DM, but will get [id number] and c-peptide/glucose given the young age of [...] Due for foot exam no 08/2021; to classification counselor on foot care next visit CV [...] on the encounter day is 72 minutes. Greogrio Floyd MD Endocrinology documented in this encounter [facility] 08-25-2021 Hospital Discharge instructions Patient Education 08/25/2021 [...] Ask your health care provider for a vqka-in-oqkt plan for gradually returning to activities. Ask [...] your friends, family, a trusted colleague, and network relay tester about your injury, symptoms, and restrictions. Have them watch for any new or worsening problems. General instructions Take tazu-idt-zngitxy and prescription medicines only as told by [...] 02/24/2006 Document Revised: 03/24/2019 Document Reviewed: 03/19/2019 [employer] Patient Education 2020 [employer] 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 General instructions Take uujw-yuf-jscumvr and prescription medicines only as told by [...] 12/22/2007 Document Revised: 06/16/2019 Document Reviewed: 10/23/2016 [employer] Patient Education 2020 [employer]. Follow Up Care 08/24/2021 22:42:21 With:Champ Ray Address: [address] [place], [place] [id number]- Business (1) When:Within 3 Day(s) [facility] 08-24-2021 Evaluation + Plan note Extrac [place] from: Title:ED Note Author:Tyler Summers DO Lynette. Date :08/24/21 Cervical strain (S16.1XXA: S train [...] w/o Contrast CT Spine Cervical w/o Contrast [facility] Diagnosis Thyroid disorder- Primary Unspecified disorder of thyroid Hair loss Unspecified alopecia [facility] Diagnosis Type 2 diabetes mellitus with hyperglycemia, unspecified whether termite helper insulin use (HCC)- Primary Thyroid disorder Unspecified disorder of thyroid Hair loss Unspecified alopecia [facility] Diagnosis Bleeding in early Unspecified hemorrhage in early , unspecified as to episode of care Follow-up exam Unspecified follow-up examination [facility] Diagnosis Type 2 diabetes mellitus in , second trimester- Primary Insulin pump in place Insulin pump status HTN in , chronic [facility] Diagnosis Type 2 diabetes mellitus in , second trimester- Primary Pre-existing type 2 diabetes mellitus during in first trimester documented [facility] Diagnosis Type 2 diabetes mellitus in , second trimester- Primary [facility] Diagnosis Type 2 diabetes mellitus in , second trimester- Primary [facility] Diagnosis Type 2 diabetes mellitus in , second trimester- Primary [facility] Narrative No data available for this section [facility] filedocumented in this encounter [facility] filedocumented in this encounter [facility] on filedocumented in this encounter [facility] on filedocumented in this encounter [facility] on filedocumented in this encounter [facility] on filedocumented in this encounter [facility] No data available for this section [facility]ative)* Consultation (Routine) - Pending Review Specialty Diagnoses / Procedures Referred By Juan Antonio montemayor Referred To Contact Maternal and Medicine Diagnoses Type 2 diabetes mellitus in , second trimester Insulin pump in place Opal Heath, GALLO-MORTARMAN [address] [place] [address] Leana Burr MD [facility] [address] [address] Referral ID Status Reason Start Date Expiration Date Visits Requested Visits Authorized [id number] Pending Review Specialty Services Required 05/07/2023 05/06/2024 1 1 [facility] Consultation (Routine) - Pending Review Specialty Diagnoses / Procedures Referred By Juan Antonio montemayor Referred To Contact Endocrinology Diagnoses Type 2 diabetes mellitus in , second trimester Mary Guidry, GALLO-CNM [address], [address] [place] [address] Leana Burr MD [address], [facility] [address] [place] [address] Referral ID Status Reason Start Date Expiration Date Visits Requested Visits Authorized [id number] Pending Review Specialty Services Required 05/20/2023 05/19/2024 1 1 [facility] for visit Narrative* Consultation (Routine) - Pending Review Specialty Diagnoses / Procedures Referred By Juan Antonio t Referred To Contact Endocrinology Diagnoses Type 2 diabetes mellitus in , second trimester Mary Guidry, CERTIFIED MEETING PROFESSIONAL-CN [address], [address] [place] [address] Leana Burr MD [address], [facility] [address] [place] [address] Referral ID Status Reason Start Date Expiration Date Visits Requested Visits Authorized [id number] Pending Review Specialty Services Required 05/20/2023 05/19/2024 1 1 [facility] Summary Purpose Family History No Family History Records FoundNo Family History Records FoundNo Family History Records FoundNo Family History Records FoundNo Family History Records FoundNo Family History Records FoundNo Family History Records Found Advance Directives No Advanced Directives Records FoundDocuments on File Type Date Recorded 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 [address] [place] [address] Gregorio Floyd MD [address] [place] [address] Referral ID Status Reason Start Date Expiration Date Visits Requested Visits Authorized [id number] Authorized Specialty Services Required/Pat ient's Best Interest 05/04/2021 05/04/2022 1 1 Specialty Diagnoses / Procedures Referred By Contac t Referred To Contact Maternal and Medicine Diagnoses Type 2 diabetes mellitus in , second trimester Procedures US MF with or without consult Opal Heath, GALLO-BRO [address] [place] [address] [facility] Maternal Med [address] [place] [address] Referral ID Status Reason Start Date Expiration Date V isits Requested Visits Authorized [id number] Pending Review 05/08/2023 05/07/2024 1 1 Additional Source Comments INFORMATION SOURCE (unrecogn ized section and content) DATE CREATED AUTHOR 02/06/2021 [facility] DATE CREATED AUTHOR AUTHOR'S ORGANIZ ATION 08/27/2021 [facility] DATE CREATED AUTHOR AUTHOR'S ORGANIZ ATION 08/30/2021 [facility] DATE CREATED AUTHOR AUTHOR'S ORGANIZ ATION 06/02/2022 [facility] DATE CREATED AUTHOR AUTHOR'S ORGANIZ ATION 05/10/2023 [facility] DATE CREATED AUTHOR AUTHOR'S ORGANIZ ATION 05/30/2023 [facility] DATE CREATED AUTHOR AUTHOR'S ORGANIZ ATION 05/30/2023 [facility] dical Specialists EPIC Care Teams (unrecognized sec tion and content) Accountant Controller Relationship Specialty Start Date End Date Champ Bell MD [address] [place] [address] PCP - General Family Medicine 05/02/21 Accountant Controller Relationship Specialty Start Date End Date Champ Bell MD [address] [place] [address] PCP - General Family Medicine 05/02/21 Accountant Controller Relationship Specialty Start Date End Date Champ Bell MD [address] [place] [address] PCP - General 03/13/23 Reason for Visit (unrecogniz ed section and content) Reason Comments Thyroid Problem Specialty Diagnoses / Procedures Referred By Contac t Referred To Contact Endocrinology Diagnoses Thyroid disorder Hair loss Champ Bell MD [address] [facility] [address] [place] [address] Gregorio Floyd MD [address] [place] [address] Referral ID Status Reason Start Date Expiration Date V isits Requested Visits Authorized [id number] Closed Specialty Services Required/Deanna ent's Best Interest 05/04/2021 05/04/2022 1 1 Reason Comments ER Follow-up Reason Comments t2dm Reason Comments Diabetes Specialty Diagnoses / Procedures Referred By Contac t Referred To Contact Maternal and Medicine Diagnoses Pre-existing type 2 diabetes mellitus during in first trimester Mario Conway R, DO [address] , [place] [address] [facility] Maternal Med [address] [place] [address] Referral ID Status Reason Start Date Expiration Date Visits Requested Visits Authorized [id number] Pending Review Specialty Services Required 04/15/2023 04/14/2024 [...] BE BASED ON THE PRIMARY CLINICAL RECORDS. [employer] provides no warranty or guarantee of the accuracy or completeness of information in this document.
--- NOTE | 2023-06-04 16:28 | ECG_ITS ---
[facility] Test Date: 2023-06-04 Pat Name: TESS CALVERT Department: Room: - Gender: Female Family Partner: : 1995 Requested By: [id number] Order Number: [id number] Reading MD: CHAMP LAUREANO Measurements Intervals [place] Rate: 108 P: 30 MI: 144 QRS: 45 QRSD: 80 T: 51 QT: 334 QTc: 397 Interpretive Statements 1120 Sinus tachycardia 9140 abnormal rhythm ECG No previous ECG available for comparison Electronically Signed On 06-05-2023 6:47:52 EDT by CHAMP LAUREANO
--- NOTE | 2023-06-04 16:35 | ED.PREGNANC1 ---
HPI - General Chief complaint: OB/Uterine Contractions Stated complaint: Hypertension Time Seen by Provider: 06/04/23 16:28 Source: patient Mode of arrival: walk-in Limitations: no limitations History of Present Illness HPI Narrative: Patient is a 27-year-old female G1, who presents to the emergency department at 19 weeks of for elevated blood pressure reading at home. Patient states that her face was flushed so her mother instructed her to check her blood pressure and it was elevated in the 150s over 100s. She has no history of high blood pressure but states she does have a history of high heart rate. She takes metoprolol 25 mg p.o. twice daily daily. She has a history of diabetes. She denies chest pain, shortness of breath. She had flulike illness 2 weeks ago which has resolved completely. She denies any abdominal pain, vaginal bleeding or fluid leakage. She states she has had minimal cramping for over 2 weeks which she attributed to round ligament pain. This is her first . Related Data Home Medications ?Medication ?Instructions ?Recorded ?Confirmed desvenlafaxine succinate 100 mg 100 mg PO Q24H 04/16/23 04/16/23 tablet,extended release 24 hr insulin lispro 100 unit/mL 1 sliding scale dose subcut Q6H 04/16/23 04/16/23 subcutaneous solution (Humalog PRN hyperglycemia U-100 Insulin) lamotrigine 100 mg tablet 100 mg PO Q12H 04/16/23 04/16/23 metoprolol tartrate 25 mg tablet 25 mg PO Q12H 04/16/23 04/16/23 pantoprazole 40 mg tablet,delayed 40 mg PO DAILY 04/16/23 04/16/23 release Previous Rx's ?Medication ?Instructions ?Recorded labetalol 200 mg tablet 200 mg PO Q12H #30 tabs 06/04/23 Allergies Allergy/AdvReac Type Severity Reaction Status Date / Time No Known Drug Allergies Allergy Verified 01/11/23 15:08 Review of Systems ROS Constitutional Denies: fever or chills Ears, nose, mouth, and throat Denies: throat pain or nasal congestion Cardiovascular Denies: chest pain Respiratory Denies: shortness of breath or cough Gastrointestinal Denies: nausea or vomiting Musculoskeletal Denies: back pain Integumentary/Breast Denies: rash Neurological Denies: headache Hematologic/Lymphatic Denies: easy bruising or easy bleeding PFSH PFSH Social History Smoking status: Never smoker Exam Narrative Exam Narrative: Gen.: Awake, alert, in no distress Head: Normocephalic, atraumatic ENT: Moist mucous membranes Respiratory: No respiratory distress, lungs clear bilaterally Cardio: Regular rate and rhythm Gastrointestinal: Abdomen is soft, nondistended and nontender to palpation Extremities: Moves extremities equally Psych: Normal mood and affect Neuro: No focal neuro deficit Skin: Warm, dry, intact Constitutional Vital Signs, click to edit/add: Last Vital Signs Temp 97.8 F 06/04/23 16:14 Pulse 109 H 06/04/23 17:30 Resp 16 06/04/23 17:30 BP 130/73 06/04/23 17:30 Pulse Ox 98 06/04/23 16:14 O2 Del Method Room Air 06/04/23 16:14 Course Vital Signs Vital signs: Vital Signs Temperature 97.8 F 06/04/23 16:14 Pulse Rate 110 H 06/04/23 16:14 Respiratory Rate 20 06/04/23 16:14 Blood Pressure 160/98 H 06/04/23 16:14 Pulse Oximetry 98 06/04/23 16:14 Oxygen Delivery Method Room Air 06/04/23 16:14 Temperature 97.8 F 06/04/23 16:14 Pulse Rate 109 H 06/04/23 17:30 Respiratory Rate 16 06/04/23 17:30 Blood Pressure 130/73 06/04/23 17:30 Pulse Oximetry 98 06/04/23 16:14 Oxygen Delivery Method Room Air 06/04/23 16:14 MDM - OB/Uterine Contractions MDM Narrative Medical decision making narrative: Labs are stable, heart rate is stable. Patient treated with IV labetalol with improvement of blood pressure to 130/78. Previous records from the patient's last 3 visits to the emergency department show that her blood pressure has been significantly elevated. She has no focal medical complaints or concerns in the ER. I discussed the case with Dr. Conway and he requested that the patient be placed on labetalol 200 mg twice daily, follow-up in the office for recheck of blood pressure next week. Return to the ER if symptoms change or worsen. Patient was instructed to only take her metoprolol For breakthrough tachycardia. She admits on reevaluation that she has not been taking her metoprolol as she is instructed to do. She was given education and strongly encouraged to take the medications as prescribed. Medical Records Attestation: I reviewed the patient's medical records. Lab Data Attestation: I reviewed the patient's lab results. Labs: Lab Results 06/04/23 Range/Units 16:45 WBC 13.8 H (4.0-11.0) 10^3/uL RBC 4.63 (4.20-5.40) 10^6/uL Hgb 12.8 (12.0-16.0) g/dL Hct 38.4 (36.0-48.0) % MCV 82.9 (81.0-99.0) fL MCH 27.6 (26.7-34.0) pg MCHC 33.3 (29.9-35.2) g/dL RDW 15.1 H (11.0-15.0) % Plt Count 302 (150-450) 10^3/uL MPV 10.3 (9.5-13.5) fL Neut % (Auto) 72.2 (43.0-75.0) % Lymph % (Auto) 19.5 L (20.5-60.0) % [place] % (Auto) 7.2 (1.7-12.0) % Eos % (Auto) 0.4 L (0.9-7.0) % Baso % (Auto) 0.1 L (0.2-2.0) % Neut # (Auto) 9.9 H (1.4-6.5) 10^3/uL Lymph # (Auto) 2.7 (1.2-3.8) 10^3/uL [place] # (Auto) 1.0 H (0.3-0.8) 10^3/uL Eos # (Auto) 0.1 (0.0-0.7) 10^3/uL Baso # (Auto) 0.0 (0.0-0.1) 10^3/uL Abs Immat Gran (auto) 0.08 H (0.00-0.03) 10^3/uL Imm/Tot Granulo (auto) 0.6 H (0.0-0.5) % Sodium 136 (136-145) mmol/L Potassium 3.9 (3.5-5.1) mmol/L Chloride 102 (98-107) mmol/L Carbon Dioxide 21.9 (21.0-32.0) mmol/L Anion Gap 16.0 BUN 9.0 (7.0-18.0) mg/dL Creatinine 0.50 L (0.55-1.02) mg/dL Est GFR ( Amer) >60 (>=60) Est GFR (Non-Af Amer) >60 (>=60) BUN/Creatinine Ratio 18.0 Glucose 129 H (74-106) mg/dL Calcium 9.3 (8.5-10.1) mg/dL Total Bilirubin 0.4 (0.2-1.0) mg/dL AST 12 L (15-37) U/L ALT 20 (14-59) U/L Alkaline Phosphatase 62 (46-116) U/L Total Protein 7.6 (6.4-8.2) g/dL Albumin 3.2 L (3.4-5.0) g/dL Globulin 4.4 g/dL Albumin/Globulin Ratio 0.7 Urine Color Yellow (YELLOW) Urine Clarity Clear (CLEAR) Urine pH 6.0 (5.0-9.0) Ur Specific [place] 1.025 (1.005-1.025) Urine Protein Negative (NEG/TRACE) mg/dL Urine Glucose (UA) Negative (NEGATIVE) mg/dL Urine Ketones Negative (NEGATIVE) mg/dL Urine Occult Blood Negative (NEGATIVE) Urine Nitrite Negative (NEGATIVE) Urine Bilirubin Negative (NEGATIVE) Urine Urobilinogen 0.2 (0.2-1.0) EU/dL Ur Leukocyte Esterase Negative (NEGATIVE) ECG Data Attestation: I personally reviewed and interpreted this ECG as follows: (Sinus tachycardia at a rate of 108, no acute ST elevation or ectopy. EKG reviewed by attending physician) ECG interpretation date: 06/04/23 Discharge Plan Discharge Stand Alone Forms: Portal Instructions Chief Complaint: OB/Uterine Contractions Clinical Impression: Hypertension affecting Patient Disposition: Home, Self-Care Time of Disposition Decision: 17:55 Condition: Good Prescriptions / Home Meds: New labetalol 200 mg tablet 200 mg PO Q12H Qty: 30 0RF No Action pantoprazole 40 mg tablet,delayed release (DR/EC) 40 mg PO DAILY insulin lispro [Humalog U-100 Insulin] 100 unit/mL solution 1 sliding scale dose subcut Q6H PRN (Reason: hyperglycemia) lamotrigine 100 mg tablet 100 mg PO Q12H metoprolol tartrate 25 mg tablet 25 mg PO Q12H desvenlafaxine succinate 100 mg tablet extended release 24 hr 100 mg PO Q24H Print Language: Maori Instructions: Hypertension During (ED) Additional Instructions: Take labetalol twice a day, only use metoprolol as needed when your heart rate is significantly elevated Referrals: Mario Conway DO [Physician] - 1 week Aleksey Bell MD [Primary Care Provider] - 1 week
[2023-06-04 17:07] LABS: Basophils Percent Auto 0.1 % (0.2-2.0); Eosinophils Absolute Auto 0.1 10^3/uL (0.0-0.7); Eosinophils Percent Auto 0.4 % (0.9-7.0); Hematocrit 38.4 % (36.0-48.0); Hemoglobin 12.8 g/dL (12.0-16.0); Immature Granulocytes Abs Auto 0.08 10^3/uL (0.00-0.03); Immature Granulocytes Pct Auto 0.6 % (0.0-0.5); Lymphocytes Absolute Auto 2.7 10^3/uL (1.2-3.8); Lymphocytes Percent Auto 19.5 % (20.5-60.0); Mean Corpuscular HGB Conc 33.3 g/dL (29.9-35.2); Mean Corpuscular Hemoglobin 27.6 pg (26.7-34.0); Mean Corpuscular Volume 82.9 fL (81.0-99.0); Mean Platelet Volume 10.3 fL (9.5-13.5); Monocytes Percent Auto 7.2 % (1.7-12.0); Neutrophils Absolute Auto 9.9 10^3/uL (1.4-6.5); Neutrophils Percent Auto 72.2 % (43.0-75.0); Platelet Count 302 10^3/uL (150-450); Red Blood Count 4.63 10^6/uL (4.20-5.40); Red Cell Distribution Width 15.1 % (11.0-15.0); White Blood Count 13.8 10^3/uL (4.0-11.0)
[2023-06-04 17:13] LABS: Bilirubin Urine NEGATIVE (NEGATIVE); Blood Urine NEGATIVE (NEGATIVE); Clarity Urine CLEAR (CLEAR); Color Urine YELLOW (YELLOW); Glucose Urine UA NEGATIVE (NEGATIVE); Ketones Urine NEGATIVE (NEGATIVE); Leukocyte Esterase Urine NEGATIVE (NEGATIVE); Nitrite Urine NEGATIVE (NEGATIVE); Protein Urine NEGATIVE (NEG/TRACE); Specific Gravity Urine 1.025 (1.005-1.025); Urobilinogen Urine 0.2 EU/dL (0.2-1.0)
[2023-06-04 17:14] LABS: Urine Microscopic Indicated NO
[2023-06-04] MEDS: LABETALOL HCL 100 MG/20 ML MDV 10 MG IVP (17:17)
[2023-06-04 17:20] LABS: Alanine Aminotransferase 20 U/L (14-59); Albumin Globulin Ratio 0.7; Albumin Level 3.2 g/dL (3.4-5.0); Alkaline Phosphatase 62 U/L (46-116); Aspartate Amino Transferase 12 U/L (15-37); Bilirubin Total 0.4 mg/dL (0.2-1.0); Calcium 9.3 mg/dL (8.5-10.1); Carbon Dioxide 21.9 mmol/L (21.0-32.0); Chloride 102 mmol/L (98-107); Estimated GFR (African America >60 (>=60); Estimated GFR (Non-African Ame >60 (>=60); Globulin 4.4 g/dL; Glucose 129 mg/dL (74-106); Potassium 3.9 mmol/L (3.5-5.1); Sodium 136 mmol/L (136-145); Total Protein 7.6 g/dL (6.4-8.2)
== END 2023-06-04 18:08 | disposition home or self-care (01) ==
PROVIDERS: Physician Assistant; Emergency Provider Emergency Medicine Emergency Medical Services; PCP Family Medicine
DX: O16.2 Unspecified maternal hypertension, second trimester (principal); O24.312 Unspecified pre-existing diabetes mellitus in pregnancy, second trimester; Z3A.19 19 weeks gestation of pregnancy; Z79.899 Other long term (current) drug therapy; Z79.4 Long term (current) use of insulin
CPT/HCPCS: 36415; 80053; 81003; 85025; 93005; 96374; 99285

== ENCOUNTER 2023-07-21 09:05 | Outpatient (OUT) | payer OTHER, SELFPAY ==
--- OUTSIDE RECORDS SUMMARY | 2023-07-21 09:25 | XMS_ITS | CCD ---
Author Organization [facility] Care Team Providers Care Sde Name Role Phone Champ Bell MD Primary Care Provider [phone] Champ Bell Primary Care Physician [phone] Champ Bell MD Primary Care Provider [phone] CHAMP BELL Admitting Unavailable COLLINSYCHAMP Primary Care [...] ., DR MARTINEZ Consulting Unavailable TUAN LEWIS Unavailable HOY ., DR OAKES Consulting Unavailable [...] Unavailable HOY ., DR OAKES Admitting Unavailable CHAUTAUQUA, DR MAY Silverman Consulting Unavailable CRYSTAL PENG Consulting Unavailable HOY ., DR OAKES Primary Care Unavailable CRYSTAL PENG Attending Unavailable CRYSTAL PENG Admitting Unavailable Champ Bell MD Primary Care Provider [phone] Unavailable Primary Care Provider UnavailOPAL Mcneal Attending Unavailable ZORAIDA, MARIO R Referring Unavailable SHITAL FRITZ Attending Unavailable ZORAIDA, MARIO R Referring Unavailable ZORAIDA, MARIO R Referring Unavailable RODEMAN, LEANA Referring Unavailable RODEMAN, LEANA Attending Unavailable MARY GUIRDY Referring Unavailable RODEMAN, LEANA Attending Unavailable RODEMAN, LEANA Attending Unavailable ZORAIDA, MARIO R Referring Unavailable RODEMAN, LEANA Attending Unavailable ZORAIDA, MARIO R Referring Unavailable SEAN, MARGARITA Referring Unavailable RODEMAN, LEANA Attending Unavailable ZORAIDA, MARIO R Referring Unavailable ZORAIDA, MARIO Attending Unavailable ZORAIDA, MARIO Attending Unavailable SHWETHA CARTER Attending Unavailable ZORAIDA, MARIO Attending Unavailable ZORAIDA, MARIO Attending Unavailable ZORAIDA, MARIO Attending Unavailable ZORAIDA, MARIO Attending Unavailable Medications Current Medications Medication Drug Class(es) Dates Sig (Normalized) Sig (Original) acetaminophen 325 mg / HYDROcodone bitartrate 5 mg oral tablet (1 source) Opioid Agonist Start: 07-03-2020 Inez 325 mg-5 mg oral tablet 1 tab(s), Oral, q6hr for pain, 8 tab(s), Refill(s) 0 Start Date: 07/03/20 Status: Ordered aspirin 81 mg delayed release oral tablet (9 sources) Platelet Aggregation Inhibitor, Nonsteroidal Anti-inflammatory Drug [...] succinate 100 mg extended release oral tablet (14 sources) Serotonin and Norepinephrine Reuptake Inhibitor Start: [...] morning. 0 Active DEXCOM G6 SENSOR device (12 sources) Start: 04-04-2023 inject 1 [IU] by subcutaneous injection once daily DEXCOM G6 SENSOR device 1 Unit by abdominal subcutaneous route Daily at 0700. 0 04/04/2023 Active DEXCOM G6 TRANSMITTER device (13 sources) Start: 05-20-2023 inject 1 [IU] by [...] ml insulin glargine 100 unt/ml pen injector (9 sources) Insulin Analog Start: 05-07-2023 insulin glargi ne (LANTUS SOLOSTAR U-100 INSULIN) 100 unit/mL (3 mL) insulin pen Prime with 2 units then inject 50 units each evening in the presence of pump failure 15 mL 3 05/07/2023 Active insulin lispro 100 unt/ml injectable solution (14 sources) Insulin Analog Start: 05-20-2023 insulin lispro [...] 0 Start Date: 02/10/20 Status: Ordered Lamictal (16 sources) Mood Stabilizer, Anti-epileptic Agent Start: 01-17-2019 [...] PLUS 27 mg iron- 1 mg tablet (12 sources) Start: 04-10-2023 take 1 tablet by mouth in the morning M- PLUS 27 mg iron- 1 mg tablet Take 1 tablet by mouth in the morning. 0 04/10/2023 Active metoprolol tartrate 25 mg oral tablet (14 sources) beta-Adrenergic Alfonzo take 1 tablet by mouth every twelve hours metoprolol tartrate (LOPRESSOR) 25 mg tablet Take 1 tablet (25 mg total) by mouth every 12 (twelve) hours. 0 Active OMNIPOD 5 G6 PODS, GEN 5, cartridge (12 sources) Start: 04-03-2023 OMNIPOD 5 G6 PODS, GEN 5, cartridge 1 Unit by abdominal subcutaneous route continuously as needed. Per pump settings 0 04/03/2023 Active ondansetron 4 mg disintegrating oral tablet (12 sources) Serotonin-3 Receptor Antagonist Start: 04-04-2023 take 1 tablet by mouth every eight hours as needed ondansetron ODT (ZOFRAN ODT) 4 mg disintegrating tablet Dissolve 1 tablet (4 mg total) on tongue every 8 (eight) hours as needed. 0 04/04/2023 Active Protonix (16 sources) Proton Pump Inhibitor Start: 01-17-2019 Protonix [...] Plus/Iron) 27-1 MG tablet (2 sources) Start: End: take 1 tablet by mouth in the morning Vit-Fe Fumarate-FA ( Plus/Iron) 27-1 MG tablet Indications: Missed menses Take 1 tablet by mouth in the morning. 30 tablet 03/14/2023 03/13/2024 Active rosuvastatin calcium 10 mg [...] oral tablet (1 source) Aluminum Complex Start: take 1 tablet by mouth four times [...] 03-15-2022 08-26-2013 Chronic Diabetes mellitus without complication (4 sources) Other abnormal glucose; Translations: [Insulin pump present] Onset: 12-13-2021 05-07-2023 Episodic Diabetes or abnormal glucose tolerance complicating ; childbirth; or the puerperium (20 sources) and type 2 diabetes mellitus; Translations: [Pre-existing type 2 diabetes mellitus, in , second trimester] Onset: 05-07-2023 05-07-2023 Chronic Hemorrhage during ; abruptio placenta; placenta previa (2 sources) Antepartum hemorrhage; Translations: [Hemorrhage in early , unspecified] 04-17-2023 Episodic Hypertension complicating ; childbirth and the puerperium (13 sources) Pre-existing hypertension in obstetric context; Translations: [...] 11-29-2021 Unclassified (1 source) t2dm Onset: 05-07-2023 Unclassified (1 source) T2DM IN Onset: 06-23-2023 Past or Other Problems Problem Classification Problem [...] Test Name Value Interpretation Reference Range Facility C peptide [Mass/Vol]on 06-22 C PEPTIDE 5.70 ng/mL High 0.81-3.85 [facility] Comment on above: Result Comment: NOTE Test Performed By: [facility] [employer] [address] [place] [address] Roll Line Operator: Vaibhav Julian III, M.D. CLIA #[id number] Performed By: #### 2 345-7 #### [facility] ([id number]) [address] [place] [address], [address] [place] [address] GLUCOSEon 06-23-2023 Glucose [Mass/Vol] 168 mg/dL High 65-99 [facility] Comment on above: Performed By: #### 2 345-7 #### [facility] ([id number]) [address] [place] [address], [address] [place] [address] Glutamate decarboxylase 65 A b IA Qn (S)on 06-23-2023 LATOYA ANTIBODY <5.0 Normal 0.0-5.0 [facility] Comment on above: Result Comment: NOTE INTERPRETIVE INFORMATION: Glutamic Acid Decarboxylase Antibody A value greater than 5.0 IU/mL is considered positive for Glutamic Acid Decarboxylase Antibody (LATOYA Ab). This assay is intended for the semi-quantitative determination of the LATOYA Ab in human serum. Results should be interpreted within the context of clinical symptoms. Performed By: [employer] [address] [place] [id number] Roll Line Operator: Mark Fitzpatrick MD, PhD CLIA Number: [id number] Performed By: #### 2 345-7 #### [facility] ([id number]) [address] [place] [address], [address] [place] [address] Reference Lab Test IDon 06-08 Insulinoma Ab 2 See Below Normal [facility] Comment on above: Result Comment: NOTE TEST RESULT FLAG UNIT REF.RANGE ----- IA 2 Antibody Blood <5.4 U/mL <7.5 Anti-insulinoma associated antigen 2 (IA-2) antibody test is used as an aid in diagnosis of type I diabetes mellitus, to predict the risk of progression to type I diabetes mellitus among susceptible individuals, and to predict the necessity of insulin therapy in adult-onset diabetes mellitus. Clinical correlation is required. Test Performed By: [facility] [employer] [address] [place] [address] Roll Line Operator: Vaibhav Julian III, M.D. CLIA #[id number] Performed By: #### 2 345-7 #### [facility] ([id number]) [address] [place] [address], [address] [place] [address] CBC without diffon Hematocrit (Bld) [Volume fraction] 40.1 % [facility] Hemoglobin (Bld) [Mass/Vol] 12.8 g/dL [facility] Platelets (Bld) [#/Vol] 305 10*3/uL [facility] Rbc Mcv (Fl) By Automated Count 82.2 [facility] Free Cell DNAon 2023 Free Cell Dna no call [facility] HIV 1&2 AB/AG Screen (P24 AG )on 04-01-2023 HIV 1&2 AB/AG Negative [facility] Hemoglobin A1con 04-01-2023 HbA1c (Bld) [Mass fraction] 7.9 % Abnormal 4.0 - 6.0 % [facility] Interpretation and review of laboratory results Abnormal [facility] Hepatitis B surface antigeno n 04-01-2023 Hepatitis B Surface Antigen Negative [facility] No Panel Informationon 04-01 [facility] Rubella IGG immune statuson 04-01-2023 Rubella immune IgG immune [facility] Syphilis Total(Unknown Syphi lis Status)on 04-01-2023 Syphilis Non-Reactive [facility] TSHon 04-01-2023 Thyroid Stimulating (3Rd Generation) Hormone/ Tsh 1.051 [facility] TSH Qn 1.05 m[IU]/L [facility] Type and screenon 04-01-2023 Abo/Rh(D) Positive [facility] Urine Cultureon 04-01-2023 Bacteria identified Cx Nom (U) no growth [facility] Covid-19 PCR ([facility])on 05-09 SARS-CoV-2 (COVID-19) RNA EZEKIEL+probe Ql (Unsp spec) Not detected Normal NOT DETECTED [facility] [place] [facility] Comment on above: Result Comment: This test is not yet approved or cleared by the [place] FDA. When there are no FDA-approved or cleared tests available, and other criteria are met, FDA can make tests available under an emergency access mechanism called an Emergency Use Authorization (EUA). The EUA for this test is supported by the [employer] Specialist of Health and Human Service's (HHS's) declaration [...] consistent with SARS-CoV-2. Performed By: #### [facility] #### [facility] [address] [place] [address] Dr. Rosemary Ames GROUP A STREP CULTUREon 05-09 S. pyogenes Ag Ql (Unsp spec) Culture Observations: NEGATIVE FOR GROUP A STREPTOCOCCUS. Normal [facility] Comment on above: Performed By: #### T 7, LIPID, TSH, CMADM, BNP, CMP #### [facility] [address] [place] [address] Dr. Rosemary Ames INFLUENZA A AND B AGon 05-31 INFLUANEGH SEE BELOW Normal [facility] Comment on above: Result Comment: Nega tive for Flu A protein angiten. Infection due to Flu A cannot be ruled out. Flu A angiten in the sample may be below the detection limit of the test. Performed By: #### I NFLUAB #### [facility] [address] [place] [address] Dr. Rosemary Ames INFLUBNEGH SEE BELOW Normal [facility] [place] [facility] Comment on above: Result Comment: Nega tive for Flu B protein antigen. Infection due to Flu B cannot be ruled out. Flu B antigen in the sample may be below the detection limit of the test. Performed By: #### I NFLUAB #### [facility] [address] [place] [address] Dr. Rosemary Ames INFLUENZA A AG Negative Normal NEGATIVE SEE COMMENT [facility] Comment on above: Performed By: #### I NFLUAB #### [facility] [address] [place] [address] Dr. Rosemary Ames INFLUENZA B AG Negative Normal NEGATIVE SEE COMMENT [facility] Comment on above: Performed By: #### I NFLUAB #### [facility] [address] [place] [address] Dr. Rosemary Ames STREPT SCREENon 05-31-2022 STREP SCREEN A Negative Normal NEGATIVE [facility] Comment on above: Performed By: #### E RUR #### [facility] [address] [place] [address] Dr. Rosemary Ames SYMPTOMATIC COVID-19 ANTIGEN on 05-31-2022 EUA Statement SEE BELOW Normal [facility] Comment on above: Result Comment: [...] 7, LIPID, TSH, CMADM, BNP, CMP #### [facility] [address] [place], [place] [address] Dr. Rosemary Ames SARS-CoV-2 (COVID-19) RNA EZEKIEL+probe Ql (Unsp spec) Negative Normal NEGATIVE [facility] Comment on above: Performed By: #### T 7, LIPID, TSH, CMADM, BNP, CMP #### [facility] [address] [address] [address] Rosemary Ames ECHOCARDIO M/2D COMPLETEon 0 04-10-2022 ECHOCARDIO M/2D COMPLETE Patient: TESS ASHLEY Exam Date: 04/10/2022 : 1995 Gender:F Ordering : DR CHAMP BELL . Admission #: [id number] Family : Order #: [id number] CLICK HERE TO VIEW EXAM ECHOCARDIOGRAM REPORT [...] M.D. on 04/10/2022 at 17:40 Normal [facility] CBC AUTO DIFFon 03-13-2022 BASO # 0.0 103/ul Normal 0.0-0.1 [facility] Comment on above: Performed By: #### A 1C #### [facility] [address] [address] [address] Rosemary Ames Basophils/100 WBC (Bld) 0.3 % Normal 0.2-2.0 [facility] Comment on above: Performed By: #### A 1C #### [facility] [address] [address] [address] Rosemary Ames EO # 0.0 103/ul Normal 0.0-0.7 [facility] Comment on above: Performed By: #### A 1C #### [facility] [address] [place] [address] Dr. Rosemary Ames Eosinophils/100 WBC (Bld) 0.5 % Critically low 0.9-7.[address] [facility] Comment on above: Performed By: #### A 1C #### [facility] [address] [place] [address] Dr. Rosemary Ames Erythrocyte distribution width (RBC) [Ratio] 14.5 % Normal 11.0-15.[address] [facility] Comment on above: Performed By: #### A 1C #### [facility] [address] [place] [address] Dr. Rosemary Ames Hematocrit (Bld) [Volume fraction] 39.7 % Normal 36.0-48.0 [facility] Comment on above: Performed By: #### A 1C #### [facility] [address] [place] [address] Dr. Rosemary Ames Hemoglobin (Bld) [Mass/Vol] 12.9 g/dL Normal 12.0-16.0 [facility] Comment on above: Performed By: #### A 1C #### [facility] [address] [place] [address] Dr. Rosemary Ames IG # 0.03 10e3/ul Normal 0.00-0.03 [facility] Comment on above: Performed By: #### A 1C #### [facility] [address] [address] [address] Rosemary Ames IG % 0.4 % Normal 0.0-0.[address] [facility] Comment on above: Performed By: #### A 1C #### [facility] [address] [place] [address] Dr. Rosemary Ames LYMPH # 0.5 103/ul Critically low 1.2-3.8 [facility] Comment on above: Performed By: #### A 1C #### [facility] [address] [place] [address] Dr. Rosemary Ames Lymphocytes/100 WBC (Bld) 6.6 % Critically low 20.5-60.0 [facility] Comment on above: Performed By: #### A 1C #### [facility] [address] [place] [address] Dr. Rosemary Ames MANUAL DIFF REQ NO Normal [facility] [place] [facility] Comment on above: Performed By: #### A 1C #### [facility] [address] [place] [address] Dr. Rosemary Ames MCH (RBC) [Entitic mass] 25.1 pg Critically low 26.7-34.[address] [facility] Comment on above: Performed By: #### A 1C #### [facility] [address] [place] [address] Dr. Rosemary Ames MCHC (RBC) [Mass/Vol] 32.5 g/dL Normal 29.9-35.2 [facility] Comment on above: Performed By: #### A 1C #### [facility] [address] [place] [address] Dr. Rosemary Ames MCV (RBC) [Entitic vol] 77.2 fL Critically low 81.0-99.0 [facility] Comment on above: Performed By: #### A 1C #### [facility] [address] [place] [address] Dr. Rosemary Ames MONO # 0.7 103/ul Normal 0.3-0.8 [facility] Comment on above: Performed By: #### A 1C #### [facility] [address] [place] [address] Dr. Rosemary Ames Monocytes/100 WBC (Bld) 9.3 % Normal 1.7-12.[address] [facility] Comment on above: Performed By: #### A 1C #### [facility] [address] [place] [address] Dr. Rosemary Ames NEUT # 6.2 103/ul Normal 1.4-6.[address] [facility] Comment on above: Performed By: #### A 1C #### [facility] [address] [place] [address] Dr. Rosemary Ames Neutrophils/100 WBC (Bld) 82.9 % Critically high 43.0-75.0 [facility] Comment on above: Performed By: #### A 1C #### [facility] [address] [place] [address] Dr. Rosemary Ames Platelet mean volume (Bld) [Entitic vol] 9.8 fL Normal 9.5-13.5 [facility] Comment on above: Performed By: #### A 1C #### [facility] [address] [place] [address] Dr. Rosemary Ames PLT 246 103/ul Normal 150-450 [facility] Comment on above: Performed By: #### A 1C #### [facility] [address] [place] [address] Dr. Rosemary Ames RBC 5.14 106/ul Normal 4.20-5.40 [facility] Comment on above: Performed By: #### A 1C #### [facility] [address] [place] [address] Dr. Rosemary Ames WBC 7.4 103/ul Normal 4.0-11.0 [facility] Comment on above: Performed By: #### A 1C #### [facility] [address] [place] [address] Dr. Rosemary Ames [facility]19 [facility]on SARS-CoV-2 (COVID-19) RNA EZEKIEL+probe Ql (Unsp spec) Not detected Normal NOT DETECTED [facility] Comment on above: Result Comment: When [...] for this test is supported by the Mccarr of Health and Human Service's declaration that [...] used). Performed By: #### A 1C #### [facility] [address] [place] [address] Dr. Rosemary Ames D-DIMERon 03-13-2022 D-DIMER 0.26 mg/L FEU Normal <=0.[address] [facility] Comment on above: Performed By: #### T 7, LIPID, TSH, CMADM, BNP, CMP #### [facility] [address] [place] [address] Dr. Rosemary Ames D-DIMER COMMENTS SEE BELOW Normal [facility] Comment on above: Result Comment: Incr eases [...] 7, LIPID, TSH, CMADM, BNP, CMP #### [facility] [address] [place] [address] Dr. Rosemary Ames ER URINE PROFILEon 3 Bilirubin Ql (U) Negative Normal NEGATIVE [facility] Comment on above: Performed By: #### E RUR #### [facility] [address] [place] [address] Dr. Rosemary Ames Clarity (U) CLEAR Normal CLEAR [facility] Comment on above: Performed By: #### E RUR #### [facility] [address] [place] [address] Dr. Rosemary Ames Color (U) LT. YELLOW Normal YELLOW [facility] Comment on above: Performed By: #### E RUR #### [facility] [address] [place] [address] Dr. Rosemary Ames ERUAHBraulio A micrscopic examination will be performed if indicated. Normal [facility] Comment on above: Performed By: #### E RUR #### [facility] [address] [place] [address] Dr. Rosemary Ames Glucose Ql (U) Negative Normal NEGATIVE [facility] Comment on above: Performed By: #### E RUR #### [facility] [address] [place] [address] Dr. Rosemary Ames Hemoglobin Ql (U) Negative Normal NEGATIVE [facility] Comment on above: Performed By: #### E RUR #### [facility] [address] [place] [address] Dr. Rosemary Ames Ketones Ql (U) Negative Normal NEGATIVE [facility] Comment on above: Performed By: #### E RUR #### [facility] [address] [place] [address] Dr. Rosemary Ames LEUKOCYTES Negative Normal NEGATIVE [facility] Comment on above: Performed By: #### E RUR #### [facility] [address] [place] [address] Dr. Rosemary Ames Nitrite Ql (U) Negative Normal NEGATIVE [facility] Comment on above: Performed By: #### E RUR #### [facility] [address] [place] [address] Dr. Rosemary Ames pH (U) 6.0 [pH] Normal 5-[address] [facility] Comment on above: Performed By: #### E RUR #### [facility] [address] [place] [address] Dr. Rosemary Ames SPEC GRAVITY 1.015 Normal 1.005-<=1.025 [facility] Comment on above: Performed By: #### E RUR #### [facility] [address] [place] [address] Dr. Rosemary Ames UA PROTEIN Negative Normal NEGATIVE/ TRACE [facility] Comment on above: Performed By: #### E RUR #### [facility] [address] [place] [address] Dr. Rosemary Ames UR MICRO IND NOT INDICATED Normal [facility] Comment on above: Performed By: #### E RUR #### [facility] [address] [place] [address] Dr. Rosemary Ames Urobilinogen Qn (U) 0.2 {Vincent'U}/dL Normal 0.2 - 1. [address] [facility] Comment on above: Performed By: #### E RUR #### [facility] [address] [place] [address] Dr. Rosemary Ames INFLUENZA A AND B AGon 03-13 INFLUANE SEE BELOW Normal [facility] Comment on above: Result Comment: Nega tive for Flu A protein angiten. Infection due to Flu A cannot be ruled out. Flu A angiten in the sample may be below the detection limit of the test. Performed By: #### E RUR #### [facility] [address] [place] [address] Dr. Rosemary Ames INFLUBNEGH SEE BELOW Normal [facility] Comment on above: Result Comment: Nega tive for Flu B protein antigen. Infection due to Flu B cannot be ruled out. Flu B antigen in the sample may be below the detection limit of the test. Performed By: #### E RUR #### [facility] [address] [place] [address] Dr. Rosemary Ames INFLUENZA A AG Negative Normal NEGATIVE SEE COMMENT [facility] Comment on above: Performed By: #### E RUR #### [facility] [address] [place] [address] Dr. Rosemary Ames INFLUENZA B AG Negative Normal NEGATIVE SEE COMMENT [facility] Comment on above: Performed By: #### E RUR #### [facility] [address] [place] [address] Dr. Rosemary Ames LACTATE/LACTIC ACIDon 2022 Lactate [Moles/Vol] 2.0 mmol/L Critically high 0.4-1.[address] [facility] Comment on above: Performed By: #### A 1C #### [facility] [address] [place] [address] Dr. Rosemary Ames LIPASEon 03-13-2022 Lipase [Catalytic activity/Vol] 79.0 U/L Normal 73.0-393.[address] [facility] Comment on above: Performed By: #### A 1C #### [facility] [address] [place] [address] Dr. Rosemary Ames PREG HCG QUALon 03-13-2022 , QUAL Negative Normal NEGATIVE [facility] [place] [facility] Comment on above: Performed By: #### A 1C #### [facility] [address] [place] [address] Dr. Rosemary Ames PROF 14(COMP METB)on 023 Albumin [Mass/Vol] 4.1 g/dL Normal 3.4-5.0 [facility] Comment on above: Performed By: #### A 1C #### [facility] [address] [place] [address] Dr. Rosemary Ames Albumin/Globulin [Mass ratio] 1.1 {ratio} Normal [facility] Comment on above: Performed By: #### A 1C #### [facility] [address] [place] [address] Dr. Rosemary Ames ALP [Catalytic activity/Vol] 77 U/L Normal 46-116 [facility] Comment on above: Performed By: #### A 1C #### [facility] [address] [place] [address] Dr. Rosemary Ames ALT [Catalytic activity/Vol] 149 U/L Critically high 14-[address] [facility] Comment on above: Performed By: #### A 1C #### [facility] [address] [place] [address] Dr. Rosemary Ames Anion gap [Moles/Vol] 16.0 mmol/L Normal [facility] Comment on above: Performed By: #### A 1C #### [facility] [address] [address] [address] Rosemary Ames AST [Catalytic activity/Vol] 82 U/L Critically high 15-[address] [facility] Comment on above: Performed By: #### A 1C #### [facility] [address] [address] [address] Rosemary Ames Bilirubin [Mass/Vol] 1.0 mg/dL Normal 0.2-1.[address] [facility] Comment on above: Performed By: #### A 1C #### [facility] [address] [address] [address] Rosemary Ames Calcium [Mass/Vol] 9.1 mg/dL Normal 8.5-10.1 [facility] Comment on above: Performed By: #### A 1C #### [facility] [address] [address] [address] Rosemary Ames Chloride [Moles/Vol] 96 mmol/L Critically low 98-[address] [facility] Comment on above: Performed By: #### A 1C #### [facility] [address] [address] [address] Rosemary Ames CO2 [Moles/Vol] 25.7 mmol/L Normal 21.0-32.0 [facility] Comment on above: Performed By: #### A 1C #### [facility] [address] [address] [address] Rosemary Ames Creatinine [Mass/Vol] 0.78 mg/dL Normal 0.55-1.[address] [facility] Comment on above: Performed By: #### A 1C #### [facility] [address] [address] [address] Rosemary Ames EGFR-AF VIETNAMESE >60 Normal >=60 [facility] Comment on above: Performed By: #### A 1C #### [facility] [address] [address] [address] Rosemary Ames EGFR-NON AF VIETNAMESE >60 Normal >=[address] [facility] Comment on above: Performed By: #### A 1C #### [facility] [address] [address] [address] Rosemary Ames Globulin (S) [Mass/Vol] 3.9 g/dL Normal [facility] Comment on above: Performed By: #### A 1C #### [facility] [address] [address] [address] Rosemary Ames Glucose [Mass/Vol] 190 mg/dL Critically high 74-106 [facility] Comment on above: Performed By: #### A 1C #### [facility] [address] [address] [address] Rosemary Ames Potassium [Moles/Vol] 3.7 mmol/L Normal 3.5-5.[address] [facility] Comment on above: Performed By: #### A 1C #### [facility] [address] [place] [address] Dr. Rosemary Ames Protein [Mass/Vol] 8.0 g/dL Normal 6.4-8.2 [facility] Comment on above: Performed By: #### A 1C #### [facility] [address] [address] [address] Rosemary Ames Sodium [Moles/Vol] 134 mmol/L Critically low 136-145 [facility] Comment on above: Performed By: #### A 1C #### [facility] [address] [place] [address] Dr. Rosemary Ames Urea nitrogen [Mass/Vol] 9.0 mg/dL Normal 7.0-18.[address] [facility] Comment on above: Performed By: #### A 1C #### [facility] [address] [address] [address] Rosemary Ames Urea nitrogen/Creatinine [Mass ratio] 11.5 mg/mg Normal [facility] Comment on above: Performed By: #### A 1C #### [facility] [address] [place] [address] Dr. Rosemary Ames TROPONIN, HIGH SENSITIVITYon 03-13-2022 HSTROP <4.0 Normal 4.0-51.[address] [facility] Comment on above: Result Comment: CUT- OFF POINTS HAVE BEEN ESTABLISHED BASED ON THE FOURTH UNIVERSAL DEFINITIONS OF MYOCARDIAL INFARCTION. THE UPPER REFERENCE LIMIT (URL) OF TROPONIN, DEFINED THE 99TH PERCENTILE OF cTnI DISTRIBUTION IN A REFERENCE POPULATION, HAS BEEN CONFIRMED THE DECISION THRESHOLD FOR OK DIAGNOSIS. Previously reported as: 3.9 On 03/13/2022 18:24 By DM9 Performed By: #### A 1C #### [facility] [address] [place] [address] Dr. Rosemary Ames TSHon 03-13-2022 TSH 0.440 uIU/mL Normal 0.358-3.[address] [facility] Comment on above: Performed By: #### A 1C #### [facility] [address] [place] [address] Dr. Rosemary Ames XR CHEST 1 Von [...] TUAN LEWIS Date: 2022-03-13 18:59 Normal [facility] INSULINon 12-11-2021 Insulin 40.7 uIU/mL Critically high 2.6-24.9 [facility] Comment on above: Performed By: #### A 1C #### [facility] [address] [place] [address] Dr. Rosemary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 [facility] RAD - Preliminary Cat Scan Report [id number] .00CD:127 Normal [facility] SEROLOGYOrdered By: Fabian echeverria on 08-24-2021 Beta hCG Ql Negative (08/24/21 11:29 PM) Normal [facility] Man Sero XR KNEE LT 4V or [...] by: SYLVESTER PRINGLE Date: 2021-08-15 16:[address] [facility] US KIDNEYS BLADDERon 022 US KIDNEYS [...] MAY PILLAI Date: 2021-06-13 10:16 Normal [facility] Testosterone Free and Total by LC-MS/MSon 02-04-2021 Sex Hormone Binding Globulin 11 nmol/L Low 30-135 [facility] Comment on above: Result Comment: REFE RENCE INTERVAL: Sex Hormone Binding Globulin Access complete set of age- and/or gender-specific reference intervals for this test in the [facility] Test Directory ([employer]). Testosterone, Free LC-MS/MS 9.1 pg/mL Critically high 0.8-7.4 [facility] Comment on above: Result Comment: [...] reference intervals for this test in the [employer] Test Directory ([employer]). This test was developed and its performance characteristics determined by [facility] [facility]. It has not been cleared or approved by the US Food and Drug Administration. This test was performed in a CLIA certified laboratory and is intended for clinical purposes. Performed By: [facility] [address] [place] [address] Roll Line Operator: Kiersten Jones MD Testosterone, LC-MS/MS 35 ng/dL Normal 9-55 [facility] Comment on above: Result Comment: Oscar l Testosterone, Females 18 years and older Premenopausal 9-55 ng/dL Postmenopausal 5-32 ng/dL REFERENCE INTERVAL: Testosterone, LC-MS/MS Access complete set of age- and/or gender-specific reference intervals for this test in the [employer] Test Directory ([employer]). This test was developed and its performance characteristics determined by [employer]. It has not been cleared or approved by the US Food and Drug Administration. This test was performed in a CLIA certified laboratory and is intended for clinical purposes. Cortisol Daljit 01-31-2021 Cortisol AM 11.0 ug/dL Normal 6.2-19.4 [facility] Comment on above: Performed By: #### C AKSHAT #### [facility] [address] [place] [id number] Vital Signs Date Time Vital Sign Value Performing Clinician Facility 05-07-2023 15:08-0500 Body height 152.4 cm Opallubna Levigan FEED MILL SUPERVISOR-LEASING ASSISTANT Work Phone: [facility] 05-07-2023 15:08-0500 Body mass index (BMI) [Ratio] 48.43 kg/m2 Opalluban Levigan FEED MILL SUPERVISOR-LEASING ASSISTANT Work Phone: [facility] 05-07-2023 15:08-0500 Body weight 112.49 kg Opal Levigan FEED MILL SUPERVISOR-LEASING ASSISTANT Work Phone: [facility] 05-07-2023 15:08-0500 Diastolic blood pressure 64 mm[Hg] Opal Heath FEED MILL SUPERVISOR-LEASING ASSISTANT Work Phone: [facility] 05-07-2023 15:08-0500 Heart rate 111 /min Opal Heath FEED MILL SUPERVISOR-LEASING ASSISTANT Work Phone: [facility] 05-07-2023 15:08-0500 Systolic blood pressure 136 mm[Hg] Opallubna Levigan FEED MILL SUPERVISOR-LEASING ASSISTANT Work Phone: [facility] 05-07-2023 14:16-0500 Body height 152.4 cm Tt Ed [facility] 05-07-2023 14:16-0500 Body mass index (BMI) [Ratio] 48.63 kg/m2 [facility] Ed [facility] 05-07-2023 14:16-0500 Body weight 112.95 kg [facility] Ed [facility] 04-17-2023 10:25-0500 Body mass index (BMI) [Ratio] 47.85 kg/m2 Mario Zoraida DO Work Phone: [facility] 04-17-2023 10:25-0500 Body weight 111.13 kg Mario Zoraida DO Work Phone: [facility] 04-17-2023 10:25-0500 Diastolic blood pressure 76 mm[Hg] Mario Zoraida DO Work Phone: [facility] 04-17-2023 10:25-0500 Systolic blood pressure 122 mm[Hg] Mario Zoraida DO Work Phone: [facility] 08-27-2021 11:09-0400 Body height 152.4 cm Gregorio Floyd MD Work Phone: [facility] 08-27-2021 11:09-0400 Body mass index (BMI) [Ratio] 46.68 kg/m2 Gregorio Floyd MD Work Phone: [facility] 08-27-2021 11:09-0400 Body weight 108.41 kg Gregorio Floyd MD Work Phone: [facility] 08-27-2021 11:09-0400 Diastolic blood pressure 86 mm[Hg] Gregorio Floyd MD Work Phone: [facility] 08-27-2021 11:09-0400 Heart rate 97 /min Gregorio Floyd MD Work Phone: [facility] 08-27-2021 11:09-0400 Systolic blood pressure 125 mm[Hg] Gregorio Floyd MD Work Phone: [facility] 08-25-2021 14:00-0400 Diastolic blood pressure 81 mm[Hg] Tyler Melina [facility] 08-25-2021 14:00-0400 Heart rate 85 /min Tyler Melina [facility] 08-25-2021 14:00-0400 Mean blood pressure 100 mm[Hg] Tyler Melina [facility] 06-18-2022 14:00-0400 Respiratory rate 16 /min Tyler Melina [facility] 08-25-2021 14:00-0400 SaO2% (BldA) [Mass fraction] 98 % Tyler Melina [facility] 08-25-2021 14:00-0400 Systolic blood pressure 138 mm[Hg] Tyler Melina [facility] 08-25-2021 01:00-0400 Diastolic blood pressure 85 mm[Hg] Tyler Melina [facility] 08-25-2021 01:00-0400 Heart rate 87 /min Tyler Melina [facility] 08-25-2021 01:00-0400 Respiratory rate 16 /min Tyler Melina [facility] 08-25-2021 01:00-0400 SaO2% (BldA) [Mass fraction] 98 % Tyler Melina [facility] 08-25-2021 01:00-0400 Systolic blood pressure 140 mm[Hg] Tyler Melina [facility] 08-25-2021 00:00-0400 Diastolic blood pressure 89 mm[Hg] Tyler Melina [facility] 08-25-2021 00:00-0400 Heart rate 95 /min Tyler Melina [facility] 08-25-2021 00:00-0400 SaO2% (BldA) [Mass fraction] 97 % Tyler Melina [facility] 08-25-2021 00:00-0400 Systolic blood pressure 149 mm[Hg] Tyler Melina [facility] 08-24-2021 22:50-0400 Body temperature 100.22 [degF] Tyler Summers [facility] Encounters Encounter Date Encounter Type Care Provider Facility Start: 07-14-2023 End: 07-14-2023 ambulatory MARIO ZORAIDA Not Available Start: 07-10-2023 End: 07-10-[address] [facility] Start: 06-30-2023 End: 06-30-2023 ambulatory MARIO ZORAIDA Not Available Start: 06-30-2023 End: 06-30-[address] [facility] Start: 06-23-2023 End: 06-24-2023 ambulatory [facility] Start: 06-23-2023 End: 06-23-[address] [facility] Start: 06-11-2023 End: [facility] Start: 06-10-2023 End: 06-10-2023 ambulatory MARIO ZORAIDA Not Available Start: 06-09-2023 Orders Only Leana franco MD Work Phone: [facility] Start: 06-04-2023 Orders Only Leana franco MD Work Phone: [facility] Comment on above: Type 2 diabetes naz itus in , second trimester (Primary Dx) Start: 05-29-2023 End: 05-29-2023 ambulatory MARIO ZORAIDA Not Available Start: 05-29-2023 End: 05-29-[address] [facility] Start: 05-29-2023 End: 05-29-2023 Office outpatient visit 25 minutes Leana Burr MD Work Phone: [facility] Comment on above: Type 2 diabetes naz itus in , second trimester (Primary Dx) Start: 05-20-2023 End: 05-20-2023 Orders Only Mary Guidry APRN-CNM Work Phone: [facility] Comment on above: Type 2 diabetes naz itus in , second trimester (Primary Dx) Start: 05-20-2023 End: 05-20-2023 Office outpatient new 45 minutes Leana Burr MD Work Phone: [facility] Comment on above: Type 2 diabetes naz itus in , second trimester (Primary Dx) Start: 05-13-2023 Telephone encounter Joann pastrana RN Work Phone: [facility] Start: 05-12-2023 Telephone encounter Joann pastrana RN Work Phone: [facility] Start: 05-12-2023 End: 05-12-2023 ambulatory SHWETHA CARTER Not Available Start: 05-08-2023 Orders Only Queta Zazueta [facility]- [facility] Comment on above: Type 2 diabetes naz itus in , second trimester (Primary Dx) Start: 05-07-2023 End: 05-07-2023 Office outpatient visit 25 minutes Opal Heath APRN-LEASING ASSISTANT Work Phone: [facility] Comment on above: Type 2 diabetes naz itus in , second trimester (Primary Dx); Insulin pump in place; HTN in , chronic Start: 05-07-2023 End: 05-07-[address] Work Phone: [facility] Comment on above: Type 2 diabetes naz itus in , second trimester (Primary Dx); Pre-existing type 2 diabetes mellitus during in first trimester Start: 04-23-2023 Chart abstracting Opal falk FEED MILL SUPERVISOR-LEASING ASSISTANT Work Phone: [facility] Start: 04-23-2023 Telephone encounter Danyell Ortiz RN [place] [facility] Start: 04-17-2023 End: 04-17-2023 ambulatory MARIO ZORAIDA Not Available Start: 04-17-2023 End: 04-17-2023 Office outpatient visit 15 minutes Mario Mclaino DO Work Phone: [facility] Comment [...] Start: 08-27-2021 End: 08-27-2021 ambulatory CHAMP BELL [facility] Start: 08-27-2021 End: 08-27-2021 Office outpatient new 60 minutes Champ Bell MD Work Phone: [facility] Comment on above: Type 2 diabetes naz itus with hyperglycemia, unspecified whether commercial loan specialist insulin use (HCC) (Primary Dx); Thyroid disorder; Hair loss Start: 08-24-2021 End: 08-25-2021 Emergency department patient visit Tyler Summers [facility] Start: 08-15-2021 End: 08-15-2021 ambulatory GREGORY FAN . Facility:[facility] Start: 06-13-2021 End: 06-14-[address] CHAMP BELL . Facility: Start: 05-04-2021 Transcribe Orders Champ Bell MD Work Phone: [facility] Comment on above: Thyroid disorder (Pr imary Dx); Hair loss Procedures Date Procedure Procedure Detail Performing Clinician Start: 05-12-2023 Microscopic observat ion [Identifier] in Cervix by Cyto stain Leana Burr MD Work Phone: Start: 04-01-2023 Antibody screen Bebe Heath FEED MILL SUPERVISOR-[facility] Work Phone: Start: 04-01-2023 Bacteria identified in [...] malign ant neoplasm of cervix Pap Smear [facility] Start: 05-28-2024 Tobacco Screening Tobacco Screening [facility] Start: 05-07-2024 Adult BMI Screening Adult BMI Screen ing [facility] [employer] [facility] Start: 05-07-2024 Tobacco Screening Tobacco Screening [facility] Start: 05-07-2024 End: 05-07-2024 US MFM with or without consult US MFM with or without consult Imaging Routine Type 2 diabetes mellitus in , second trimester Expected: 05/07/2024 (Approximate), Expires: 05/07/2024 [facility] Work Phone: Comment on above: Expected: 05/07/2024 (Approximate), Expires: 05/07/2024 Start: 11-09-2023 Influenza vaccination Influenza Vacc ine [facility] Start: 06-11-2023 End: 06-11-2023 Patient encounter procedure 06/11/2023 1:00 PM EDT Appointment [facility] [address] [facility] [facility] [place] [phone] [facility] Start: 06-10-2023 End: 06-10-2023 Patient encounter procedure 06/10/2023 3:00 PM EDT Office Visit [facility] [address] [place] [address] Leana Burr MD [address] [place] [address] [facility] Start: 06-04-2023 End: 06-04-2023 Patient encounter procedure 06/04/2023 10:45 AM EDT Office Visit [facility] [address] [place] [phone] Leana Burr MD [address] [place] [address] [facility] Start: 05-29-2023 End: 05-29-2023 Patient encounter procedure 05/29/2023 10:45 AM EDT Office Visit [facility] [address] [place] [address] Leana Burr MD [address] [place] [address] [facility] Start: 05-20-2023 End: 05-20-2023 Telemedicine consultation with patient 05/20/2023 8:00 AM EDT [facility] [address] [place] [address] Leana Burr MD [address] [place] [address] [facility] Start: 05-12-2023 End: 05-12-2023 Patient encounter procedure 05/12/2023 8:30 AM EST Routine [facility] [address] [place] [address] Shwetha Carter PA [address] [place] [address] [facility] Start: 05-07-2023 End: 05-07-2023 Patient encounter procedure 05/07/2023 3:00 PM EST Office Visit [facility] [address] [place] [address] Opal Heath, FEED MILL SUPERVISOR-LEASING ASSISTANT [address] [facility] [place] [address] [facility] Start: 05-07-2023 End: 05-07-2023 ambulatory 05/07/2023 1:00 PM EST Support Visit [facility] [address] [facility] [place] [phone] Shital Fritz, IZAIAH [address] [place] [address] [facility] Start: 11-08-2022 Influenza vaccination Influenza Vacc ine [facility] Start: 11-27-2021 End: 11-27-2021 Patient encounter procedure 11/27/2021 Office Visit Endocrinology Gregorio Floyd MD [address] [place] [address] [facility] Start: 11-27-2021 Hemoglobin A1c measurement A1C [facility] Start: 11-08-2021 Influenza vaccination Sequenti al Influenza Vaccine (Season Ended) [facility] Start: 06-25-2021 End: 06-25-2021 Patient encounter procedure 06/25/2021 Office Visit Endocrinology Gregorio Floyd MD [address] [place] [address] [facility] Start: 11-08-2020 Influenza vaccination Sequenti al Influenza Vaccine (#1) [facility] Start: 11-14-2015 Screening for malign ant neoplasm of cervix Pap Smear [facility] Start: 2013 DTaP,Tdap and Td Vaccines (1 - Tdap) DTaP,Tdap and Td Vaccines (1 - Tdap) [facility] Start: 2012 Adult BMI Follow Up Plan Adult BMI Follow Up Plan [facility] Start: 2012 Adult BMI Screening Adult BMI Screen ing [facility] Start: 2012 Diabetic foot examination Diabetic Foot Exam [facility] Start: 2012 Hepatitis C screening Hepatitis C Sc reening [facility] Start: 2009 HIV screening HIV Screening [facility] Start: 2006 Depression screening using PHQ-9 (Patient Health Questionnaire 9) score [facility] Start: 2006 Tobacco Screening Tobacco Screening [facility] Start: 2005 DTaP,Tdap and Td Vaccines (5 - Tdap) DTaP,Tdap and Td Vaccines (5 - Tdap) [facility] Start: 2004 Diabetic foot examination Foot Exam [facility] Start: 2004 Microalbumin measurement, urine, quantitative Urine Microalbumin [facility] Start: 2004 Ophthalmic examinati on and evaluation Ophthalmology Exam [facility] Start: 2000 Pneumococcal Vaccine : Ped or At-Risk (1 - PCV) Pneumococcal Vaccine: Ped or At-Risk (1 - PCV) [facility] Start: 11-14-1999 COVID-19 Vaccine (#1) COVID-19 Vacci ne (#1) [facility] Start: 11-14-1999 COVID-19 Vaccine (1) COVID-19 Vaccin e (1) [facility] Start: 1997 History and physical examination, annual for health maintenance Wellness Visit [facility] Start: 1994 Glaucoma screening Diabetic Op hthalmology Exam [facility] Start: 1994 Screening for malign ant neoplasm of cervix Pap Smear [facility] Start: 1994 Tetanus vaccination Tetanus: Every 1 0yrs [facility] Start: 1994 Urine screening for protein Urine Microalbumin [facility] End: 08-27-2022 C peptide [Mass/volume] in Serum or Plasma C-peptide Lab Routine Type 2 diabetes mellitus with hyperglycemia, unspecified whether commercial loan specialist insulin use (HCC) 1 Occurrences starting 08/27/2021 until 08/27/2022 [facility] Comment on above: 1 Occurrences starti ng 08/27/2021 until 08/27/2022 End: 05-19-2024 C-peptide C-peptide Lab Routine Type 2 diabetes mellitus in , second trimester 1 Occurrences starting 05/20/2023 until 05/19/2024 [facility] Comment on above: 1 Occurrences starti ng 05/20/2023 until 05/19/2024 End: 05-19-2024 GAD65 Ab assay GAD65 Ab assay Lab Routine Type 2 diabetes mellitus in , second trimester 1 Occurrences starting 05/20/2023 until 05/19/2024 [facility] Work Phone: Comment on above: 1 Occurrences starti ng 05/20/2023 until 05/19/2024 End: 08-27-2022 Glucose [Mass/volume] in Serum or Plasma Glucose Lab Routine Type 2 diabetes mellitus with hyperglycemia, unspecified whether chcf insulin use (HCC) 1 Occurrences starting 08/27/2021 until 08/27/2022 [facility] Comment on above: 1 Occurrences starti ng 08/27/2021 until 08/27/2022 End: 05-19-2024 Glucose [Mass/volume] in Serum or Plasma Glucose Lab Routine Type 2 diabetes mellitus in , second trimester 1 Occurrences starting 05/20/2023 until 05/19/2024 [facility] Comment on above: 1 Occurrences starti ng 05/20/2023 until 05/19/2024 Hepatic function 200 0 panel - Serum or Plasma Hepatic function panel Lab Routine Type 2 diabetes mellitus with hyperglycemia, unspecified whether commercial loan specialist insulin use (HCC) Ordered: 08/27/2021 [facility] Comment on above: Ordered: 08/27/2021 End: 05-19-2024 Insulinoma Associated Antibody 2 Insulinoma Associated Antibody 2 Lab Routine Type 2 diabetes mellitus in , second trimester 1 Occurrences starting 05/20/2023 until 05/19/2024 [facility] Comment on above: 1 Occurrences starti ng 05/20/2023 until 05/19/2024 End: 08-27-2022 Islet cell antibody measurement Anti-Islet Cell (GAD65) Antibody Lab Routine Type 2 diabetes mellitus with hyperglycemia, unspecified whether commercial loan specialist insulin use (HCC) 1 Occurrences starting 08/27/2021 until 08/27/2022 [facility] Comment on above: 1 Occurrences starti ng 08/27/2021 until 08/27/2022 End: 08-27-2022 Lipid 1996 panel - Serum or Plasma Lipid Panel Lab Routine Type 2 diabetes mellitus with hyperglycemia, unspecified whether commercial loan specialist insulin use (HCC) 1 Occurrences starting 08/27/2021 until 08/27/2022 [facility] Comment on above: 1 Occurrences starti ng 08/27/2021 until 08/27/2022 Microalbumin measurement, urine, quantitative Microalbumin/Creatinine Ratio, UR Random Lab Routine Type 2 diabetes mellitus with hyperglycemia, unspecified whether chcf insulin use (HCC) Ordered: 08/27/2021 [facility] Work Phone: Comment on above: Ordered: 08/27/2021 Payers Date Payer Category Payer Medicaid [id number] 1994 Unknown [id number] 2.16. [id number] 1994 Unknown [id number] 2.16.84 0.1.256365.3.579.2.593 1994 Unknown [id number] 2.16.84 0.1.726416.3.579.2.593 1994 Unknown [id number] 2.16.84 0.1.412255.3.579.2.593 1994 Unknown [id number] 2.16.84 0.1.511110.3.579.2.593 1994 Unknown [id number] 2.16.84 0.1.037999.3.579.2.593 1994 Unknown [id number] 2.16.84 0.1.004526.3.579.2.593 1994 Unknown [id number] 2.16.84 0.1.021149.3.579.2.593 1994 Unknown [id number] 2.16.84 0.1.815304.3.579.2.593 1994 Unknown [id number] 2.16.84 0.1.138945.3.579.2.593 1994 Unknown [id number] 2.16.84 0.1.554935.3.579.2.593 1994 Unknown [id number] 2.16.84 0.1.532122.3.579.2.593 1994 Unknown [id number] 2.16.84 0.1.909832.3.579.2.593 1994 Unknown [id number] 2.16.84 0.1.162932.3.579.2.593 1994 Unknown [id number] 2.16.8 40.1.137076.3.579.2.1286 1994 Unknown [id number] 2.16.8 40.1.734380.3.579.2.1285 1994 Unknown [id number] 2.16.8 40.1.219095.3.579.2.1285 1994 Unknown [id number] 2.16.8 40.1.149917.3.579.2.1285 1994 Unknown [id number] 2.16.8 40.1.237528.3.579.2.1285 1994 Unknown [id number] 2.16.8 40.1.546813.3.579.2.1285 1994 Unknown [id number] 2.16.8 40.1.295421.3.579.2.1285 1994 Unknown [id number] 2.16.8 40.1.469381.3.579.2.1285 1994 Unknown [id number] 2.16.8 40.1.581722.3.579.2.1285 1994 Unknown [id number] 2.16.8 40.1.436173.3.579.2.1285 1994 Unknown [id number] 2.16.84 0.1.502349.3.579.2.1258 1994 Unknown [id number] 2.16.84 0.1.136621.3.579.2.1258 1994 Unknown [id number] 2.16.84 0.1.243618.3.579.2.1258 1994 Unknown [id number] 2.16.84 0.1.713257.3.579.2.1258 1994 Unknown [id number] 2.16.84 0.1.947118.3.579.2.1258 1994 Unknown [id number] 2.16.84 0.1.020031.3.579.2.1258 1994 Unknown [id number] 2.16.84 0.1.183539.3.579.2.1258 1994 Unknown [id number] 2.16.840 .1.492451.3.579.2.1259 1959 Medicaid [id number] 1959 Unknown [id number] 1959 Unknown [id number] 1959 Unknown [id number] Social History Date Type Detail Facility Start: 04-23-2023 Tobacco smoking status MIIS Tobacco smoking consumption unknown [facility] Start: 1994 Sex Assigned At Not on file [facility] Start: 08-24-2021 Tobacco smoking status Never [facility] Start: 03-24-2023 End: 05-07-2023 Sex Assigned At Female [facility] Start: 08-17-2021 End: 08-27-2021 Exposure to SARS-CoV-2 (event) Not sure [facility] Start: 03-24-2023 End: 05-07-2023 Tobacco smoking status MIIS Never smoked tobacco [facility] Start: 04-17-2023 Alcohol intake Lifetime non-d ojrge (finding) [facility] Start: 03-24-2023 End: 05-07-2023 History of Social function [facility] Start: 02-04-2023 [facility] Start: 1994 Sex Assigned At Female [facility] Start: 02-27-2023 Gender identity Identifies as female gender (finding) [facility] Start: 05-07-2023 Tobacco use and exposure Smokeless tobacco non-user [facility] Start: 05-07-2023 End: 05-29-2023 Alcohol intake Ex-drinker (finding) [facility] Medical Equipment Procedure Code Equipment Code Equipment Origin al Text Equipment Identifier Dates 1 each by Other route if needed [id number] Start: 03-11-2023 Use a new needle with each injection [id number] Start: 05-07-2023 Functional Status Date Assessment Result Facility 08-24-2021 Functional Status N/A [facility] Clinical Notes 08-24-2021 to 05-29-2023 Leana Burr MD - 05/29/2023 10:45 AM Maria A Burr MD - 05/20/2023 8:00 AM EDTTelephone Abdoul - Joann Walsh RN - 05/13/2023 3:19 PM Donte Zazueta, KELBY - 05/07/2023 3:00 PM EST Note Date & Type Note Facility 05-29-2023 History of Present illness Narrative [facility]- Diabetes Visit TELEMEDICINE VISIT: This is an audiovisual visit. This is done to assess the patient and to determine the best medical care. The patient was located at home in [place] and the provider was located at the medical office in [place]. The patient states they are not driving [...] of Delivery: 10/28/23. She is referred from [facility] who is managing along with us. She has had her diabetes education with [facility]. Please see media for full pump download. [...] within last year: none. Complications: History of OK, CHF: none Medications none Last Lipid panel drawn due after History of HTN: no Medications none History of Diabetic Retinopathy: unknown. Last seen Nurse Paralegal unknown History of peripheral neuropathy: none Medications [...] History: Diagnosis Date Anxiety Depression Diabetes mellitus (CMS-HCC) Disease of thyroid gland Hypertension History reviewed. [...] tablets daily total 200mg., Disp: , Rfl: M- PLUS 27 mg iron- 1 mg tablet, [...] 10/28/23. She has had diabetes education with [facility]. We reviewed the following We have discussed [...] breakfast: try low sugar protein shakes or samoan yogurt if appetite lower in the AM. [...] to foot injury. : I agree with [facility] recommendations for care. NSTs twice weekly with weekly WEI starting at 32 weeks. Growth US every 4 weeks starting at 28 weeks. Tentative delivery by 39 weeks, but will defer to MFM. Follow up in 1 week. Following at least once per trimester with [facility] as well. LEANA BURR MD [facility] documented in this encounter [facility] [employer] [facility] 05-20-2023 History of Present illness Narrative [facility]- Diabetes Visit Tess Pfeiffer is a [...] of Delivery: 10/28/23. She is referred from [facility] who is managing along with us. She has had her diabetes education with [facility]. Please see media for full pump download. [...] within last year: none. Complications: History of OK, CHF: none Medications none Last Lipid panel drawn due after History of HTN: no Medications none History of Diabetic Retinopathy: unknown. Last seen Nurse Paralegal unknown History of peripheral neuropathy: none Medications [...] History: Diagnosis Date Anxiety Depression Diabetes mellitus ([facility]-HCC) Disease of thyroid gland Hypertension No past [...] tablets daily total 200mg., Disp: , Rfl: M- PLUS 27 mg iron- 1 mg tablet, [...] 10/28/23. She has had diabetes education with [facility]. We reviewed the following We have discussed [...] breakfast: try low sugar protein shakes or samoan yogurt if appetite lower in the AM. [...] with MFM as well. LEANA BURR MD [facility] documented in this encounter [facility] 05-13-2023 Miscellaneous Notes Summary: MFM Insulin Pump [...] denied any questions. documented in this encounter [facility] 05-13-2023 Telephone encounter Note Summary: MFM Insulin [...] meals. Verbalized understanding and denied any questions. [employer] Work Phone: 05-12-2023 Miscellaneous Notes Summary: [facility] Insulin Pump Questions Called and spoke with [...] week 05/20/23. Informed would call back after [facility] provider reviews. [facility] Telephone encounter Note Summary: [facility] Insulin Pump Questions Called and spoke with [...] week 05/20/23. Informed would call back after [facility] provider reviews. [employer] Work Phone: 05-07-2023 History of Present illness [...] results Have you been seen here at [facility] in a previous ? N/a Recent ER visits or hospitalizations? No Bring blood sugar log or meter with you today? (Please bring them with you for every visit at [facility]) yes Traveled outside the country in the [...] no complaints. She is being followed at [facility] due to Type 2 DM. See [...] TSH 1.05 04/01/2023 No results found for: [id number] No results found for: CREATININE , BUN [...] values to us weekly by e-mail to: [email or web address] or by fax to: [phone] 40 Minutes spent mbra-fr-lryr; more than 50% of time spent counseling and/or coordinating care with additional time for record review and communication to referring provider. SABINA Uribe 05/07/23 1556 documented in this encounter [facility] 05-07-2023 History of Present illness Narrative DIABETES [...] care for you: OB Provider Family Doctor Heading Maker Name: Sebastian Name: No primary care provider on file. Name:[facility] City: City: City: Last time seen: [...] demonstration Is there anything about your culture, jewish, or personal beliefs we need to know about to care for you: Other none Primary Language spoken: Central African [22] Primary Language for learning: Central African Are you currently in a relationship where you are physically hurt, threatened or made to fee afraid? [] Yes [x] No Diet Kitchen Cook needed? [] Yes [x] No Marital status/Living [...] If yes, where: On thge following scale, [place] the number, which describes your current level [...] Past Medical History: Diagnosis Date Diabetes mellitus ([facility]) Disease of thyroid gland Hypertension [...] Educational Level high school Family issues none Cultural/ethnic/yazidi influences none Exercise approved by MD? Current Exercise program walking Who prepares the meal pt Who purchase food at your home? pt Equipment use for cooking/food storage has all Food Assistance(Ex.WIC, Food [place]) has apt Dining out Yes 1 time per month Appetite/Appetite changes increased Weight History stable Do you have cats at home? Infant Feeding Plans Breast Feeding If you have cats, who cleans the litter box? Cravings/Aversions/Pica none currently Nutrition Assessment Worksheet: Week/Weekend Food Recall Breakfast [place] Or cereal Or eggs Snack Lunch Grilled [...] Management Support Plan, patient chose to use [employer] to help manage her diabetes. Patient understands that we will follow up weekly with a phone call to review progress. Face to face time 40 minutes. documented in this encounter [facility] 05-07-2023 Instructions Danyell Ortiz RN - 05/07/2023 [...] HOURS WHILE AWAKE documented in this encounter [facility] 04-23-2023 Miscellaneous Notes Called pt due toher not coming to her appt today and she stated she had left a message that she needed to tammi due to not having transportation to her appt this morning. Her name given back to the schedulers to call and resched her. documented in this encounter [facility] 04-23-2023 Telephone encounter Note Called pt due toher not coming to her appt today and she stated she had left a message that she needed to tammi due to not having transportation to her appt this morning. Her name given back to the schedulers to call and resched her. [facility] 04-17-2023 History of Present illness Narrative Reason [...] Hand fracture, right Type 2 diabetes mellitus (CMS/[facility]) Family History Problem Relation Name Age of [...] nursing note reviewed. Exam conducted with a computing machine operator present. Vitals: Estimated body mass index is [...] Mario Conway DO documented in this encounter [facility] 08-27-2021 Instructions Gregorio Floyd MD - [...] levothyroxine for now. documented in this encounter [facility] 08-27-2021 History of Present illness Narrative [...] ALKPHOS, BILITOT No results found for: TSH, [id number], THYROIDAB No results found for: PTH, CALCIUM, JACQUES, PHOS Lab Results Component Value Date HGBA1C 7.7 (A) 08/27/2021 No results found for: LDLCALC, CHOL, HDL, TRIG, CHOLHDL No results found for: MICALBCREAT, [id number] No results found for: CPEPTIDE Assessment and [...] acanthosis nigricans indicate T2DM, but will get [id number]-Mf and c-peptide/glucose given the young age of [...] Due for foot exam no 08/2021; to corrections counselor on foot care next visit CV [...] Floyd MD Endocrinology documented in this encounter [facility] 08-25-2021 Hospital Discharge instructions Patient Education [...] Ask your health care provider for a bzwa-tl-fiaj plan for gradually returning to activities. Ask [...] your friends, family, a trusted colleague, and foster care worker about your injury, symptoms, and restrictions. Have them watch for any new or worsening problems. General instructions Take fmda-vzn-jcsqili and prescription medicines only as told by [...] 02/24/2006 Document Revised: 03/24/2019 Document Reviewed: 03/19/2019 [employer] Patient Education 2020 [employer]. 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 General instructions Take ojeb-may-zjdzboa and prescription medicines only as told by [...] 12/22/2007 Document Revised: 06/16/2019 Document Reviewed: 10/23/2016 [employer] Patient Education 2020 [employer]. Follow Up Care 08/24/2021 22:42:21 With:Champ Bell Address: [address] [place] [address] [place] [address]- Business (1) When:Within 3 Day(s) [facility] 08-24-2021 Evaluation + Plan note Extrac lincoln [...] w/o Contrast CT Spine Cervical w/o Contrast [facility]* Diagnosis Thyroid disorder- Primary Unspecified disorder of thyroid Hair loss Unspecified alopecia [facility] Diagnosis Type 2 diabetes mellitus with hyperglycemia, unspecified whether commercial loan specialist insulin use (HCC)- Primary Thyroid disorder Unspecified disorder of thyroid Hair loss Unspecified alopecia [facility] Diagnosis Bleeding in early Unspecified hemorrhage in early , unspecified as to episode of care Follow-up exam Unspecified follow-up examination [facility] Diagnosis Type 2 diabetes mellitus in , second trimester- Primary Insulin pump in place Insulin pump status HTN in , chronic [facility] Diagnosis Type 2 diabetes mellitus in , second trimester- Primary Pre-existing type 2 diabetes mellitus during in first trimester [facility] Diagnosis Type 2 diabetes mellitus in , second trimester- Primary [facility] Diagnosis Type 2 diabetes mellitus in , second trimester- Primary [facility] Diagnosis Type 2 diabetes mellitus in , second trimester- Primary [facility] Diagnosis Type 2 diabetes mellitus in , second trimester- Primary [facility] Narrative No data available for this section [facility] on filedocumented in this encounter [facility] on filedocumented in this encounter [facility] on filedocumented in this encounter [facility] on filedocumented in this encounter [facility]ructionsNot on filedocumented in this encounter [facility]Not on filedocumented in this encounter [facility] No data available for this section [facility] (narrative)* Consultation (Routine) - Pending Review Specialty Diagnoses / Procedures Referred By Juan Antonio montemayor Referred To Contact Maternal and Medicine Diagnoses Type 2 diabetes mellitus in , second trimester Insulin pump in place Opal Heath APRN-CNP [address] [place] [address] Leana Burr MD [address], [address] [address] Referral ID Status Reason Start Date Expiration Date Visits Requested Visits Authorized [id number] Pending Review Specialty Services Required 05/07/2023 05/06/2024 1 1 [facility] Consultation (Routine) - Pending Review Specialty Diagnoses / Procedures Referred By Juan Antonio montemayor Referred To Contact Endocrinology Diagnoses Type 2 diabetes mellitus in , second trimester Mary Guidry, [facility] [address], [address] [place] [address] Leana Burr MD [address], [address] [address] Referral ID Status Reason Start Date Expiration Date Visits Requested Visits Authorized [id number] Pending Review Specialty Services Required 05/20/2023 05/19/2024 1 1 [facility] for visit Narrative* Consultation (Routine) - Pending Review Specialty Diagnoses / Procedures Referred By Juan Antonio montemayor Referred To Contact Endocrinology Diagnoses Type 2 diabetes mellitus in , second trimester Mary Guidry [facility] [address], [address] [place] [id number] Leana Burr MD [facility] [address], [address] [address] Referral ID Status Reason Start Date Expiration Date Visits Requested Visits Authorized [id number] Pending Review Specialty Services Required 05/20/2023 05/19/2024 1 1 [facility] Summary Purpose Family History No Family History Records FoundNo Family History Records FoundNo Family History Records FoundNo Family History Records FoundNo Family History Records FoundNo Family History Records FoundNo Family History Records Found Advance Directives No Advanced Directives Records FoundDocuments on File Type Date Recorded Patient Director Of Hotel Operations Expl anation Advance Directives and Livin g Will 05/02/2021 12:00 AM Reason for Referral Specialty Diagnoses / Procedures Referred By Contac t Referred To Contact Endocrinology Diagnoses Thyroid disorder Hair loss Champ Bell MD [address] [facility] [place] [address] [place] [address] Gregorio Floyd MD [address] [place] [id number] Referral ID Status Reason Start Date Expiration Date Visits Requested Visits Authorized [id number] Authorized Specialty Services Required/Pat ient's Best Interest 05/04/2021 05/04/2022 1 1 Specialty Diagnoses / Procedures Referred By Contac t Referred To Contact Maternal and Medicine Diagnoses Type 2 diabetes mellitus in , second trimester Procedures US [facility] with or without consult Opal Heath, FEED MILL SUPERVISOR-LEASING ASSISTANT [address] [place] [address] [facility] Maternal Med [address] [place] [address] Referral ID Status Reason Start Date Expiration Date V isits Requested Visits Authorized [id number] Pending Review 05/08/2023 05/07/2024 1 1 Additional Source Comments INFORMATION SOURCE (unrecogn ized section and content) DATE CREATED AUTHOR 02/06/2021 [facility] DATE CREATED AUTHOR AUTHOR'S ORGANIZ ATION 08/27/2021 [facility] DATE CREATED AUTHOR AUTHOR'S ORGANIZ ATION 08/30/2021 [facility] DATE CREATED AUTHOR AUTHOR'S ORGANIZ ATION 06/02/2022 [facility] DATE CREATED AUTHOR AUTHOR'S ORGANIZ ATION 06/27/2023 [facility] DATE CREATED AUTHOR AUTHOR'S ORGANIZ ATION 07/11/2023 [facility] DATE CREATED AUTHOR AUTHOR'S ORGANIZ ATION 07/14/2023 [facility] dical Specialists EPIC Care Teams (unrecognized sec tion and content) Sde Relationship Specialty Start Date End Date Champ Bell MD [address] [facility] [place] [address] [place] [address] PCP - General Family Medicine 05/02/21 Sde Relationship Specialty Start Date End Date Champ Bell MD [address] [facility] [place] [address] [place] [address] PCP - General Family Medicine 05/02/21 Sde Relationship Specialty Start Date End Date Champ Bell MD [address] [facility] [place] [address] PCP - General 03/13/23 Reason for Visit (unrecogniz ed section and content) Reason Comments Thyroid Problem Specialty Diagnoses / Procedures Referred By Contac t Referred To Contact Endocrinology Diagnoses Thyroid disorder Hair loss Champ Bell MD [address] [place] [address] Gregorio Floyd MD [address] [place] [id number] Referral ID Status Reason Start Date Expiration Date V isits Requested Visits Authorized [id number] Closed Specialty Services Required/Deanna ent's Best Interest 05/04/2021 05/04/2022 1 1 Reason Comments ER Follow-up Reason Comments [id number] Reason Comments Diabetes Specialty Diagnoses / Procedures Referred By Contac t Referred To Contact Maternal and Medicine Diagnoses Pre-existing type 2 diabetes mellitus during in first trimester Mario Conway R, DO [address] , [place] [address] [facility] Maternal Med [address] [place] [address] Referral ID Status Reason Start Date Expiration Date Visits Requested Visits Authorized [id number] Pending Review Specialty Services Required 04/15/2023 04/14/2024 [...] BE BASED ON THE PRIMARY CLINICAL RECORDS. [facility]. provides no warranty or guarantee of the accuracy or completeness of information in this document.
== END 2023-07-21 09:50 | disposition home or self-care (01) ==
LOC: FBCO 09:06 → FBC 09:08
PROVIDERS: PCP Family Medicine; Visit Provider Obstetrics & Gynecology
DX: O36.8130 Decreased fetal movements, third trimester, not applicable or unspecified (principal)
CPT/HCPCS: 59025

== ENCOUNTER 2023-07-30 14:25 | Emergency (ER) | payer OTHER, SELFPAY ==
[2023-07-30] VITALS (16 sets, daily range): BP systolic 124–155; BP diastolic 62–86; PULSE 108–126; TEMP 36.9; O2SAT 96–98; BMI 53.1
--- NOTE | 2023-07-30 14:44 | ED_ITS ---
HPI HPI - General Adult General Chief complaint: Weakness Stated complaint: WEAKNESS 27 WEEKS Time Seen by Provider: 07/30/23 14:36 Source: patient and family Mode of arrival: walk-in History of Present Illness HPI narrative: Patient is a 27-year-old female G1, who presents to the emergency department at 27 weeks for feeling generally weak. She states she was at A recital when she felt tunnel vision and like she was going to pass out. She denies headache, visual changes, peripheral paresthesias. She has had no recent illness, fevers, chills or congestion. She denies abdominal pain, vaginal bleeding or fluid leakage. No urinary symptoms. Patient is being monitored for preeclampsia, she has had hypertension and gestational diabetes. She is currently taking labetalol 200 mg 3 times daily and states she has been compliant with this medication. She states that this time she just feels generally weak and fatigued, she has no complaints of pain. Related Data Home Medications ?Medication ?Instructions ?Recorded ?Confirmed desvenlafaxine succinate 100 mg 100 mg PO Q24H 04/16/23 07/30/23 tablet,extended release 24 hr insulin lispro 100 unit/mL 1 sliding scale dose subcut Q6H 04/16/23 07/30/23 subcutaneous solution (Humalog PRN hyperglycemia U-100 Insulin) lamotrigine 100 mg tablet 100 mg PO Q12H 04/16/23 07/30/23 pantoprazole 40 mg tablet,delayed 40 mg PO DAILY 04/16/23 07/30/23 release labetalol 200 mg tablet 200 mg PO TID 07/30/23 07/30/23 Allergies Allergy/AdvReac Type Severity Reaction Status Date / Time No Known Drug Allergies Allergy Verified 01/11/23 15:08 Opioid HPI Opioid Management Most Recent Opioid Data: No Data to Display Review of Systems ROS Constitutional Denies: fever or chills Eyes Denies: change in vision Ears, nose, mouth, and throat Denies: throat pain Cardiovascular Denies: chest pain Respiratory Denies: shortness of breath Gastrointestinal Denies: abdominal pain, nausea or vomiting Musculoskeletal Denies: back pain Integumentary/Breast Denies: rash Neurological Reports: weakness in extremities; Denies: headache or dizziness Hematologic/Lymphatic Denies: easy bruising or easy bleeding Allergic/Immunologic Denies: hives PFSH PFSH Social History Smoking status: Never smoker Exam Narrative Exam Narrative: Gen.: Awake, alert, in no distress Head: Normocephalic, atraumatic ENT: Moist mucous membranes Respiratory: No respiratory distress, lungs clear bilaterally Cardio: Tachycardia Gastrointestinal: Abdomen is soft, nondistended and nontender to palpation Extremities: Moves extremities equally, no pedal edema Psych: Normal mood and affect Neuro: No focal neuro deficit Skin: Warm, dry, intact Constitutional Vital Signs, click to edit/add: Last Vital Signs Temp 98.4 F 07/30/23 14:34 Pulse 108 H 07/30/23 16:00 Resp 12 07/30/23 16:00 BP 132/74 07/30/23 16:27 Pulse Ox 97 07/30/23 16:00 O2 Del Method Room Air 07/30/23 14:34 Course Vital Signs Vital signs: Vital Signs Temperature 98.4 F 07/30/23 14:34 Pulse Rate 113 H 07/30/23 14:34 Respiratory Rate 16 07/30/23 14:34 Blood Pressure 155/71 H 07/30/23 14:34 Pulse Oximetry 98 07/30/23 14:34 Oxygen Delivery Method Room Air 07/30/23 14:34 Temperature 98.4 F 07/30/23 14:34 Pulse Rate 108 H 07/30/23 16:00 Respiratory Rate 12 07/30/23 16:00 Blood Pressure 132/74 07/30/23 16:27 Pulse Oximetry 97 07/30/23 16:00 Oxygen Delivery Method Room Air 07/30/23 14:34 Medical Decision Making [facility] Narrative Medical decision making narrative: Patient treated with IV fluids and she states she feels tremendously better . Her labs are stable and her final manual blood pressure is 132/74. I discussed the case with Dr. Jones, she recommended the patient be admitted if she does not feel any better or she can follow-up tomorrow with [facility] for a blood pressure recheck and reevaluation of her symptoms. Patient states she feels she just got behind on fluids and states she feels very well, she would like to go home. Return tomorrow for blood pressure reevaluation and reevaluation of symptoms to [facility]. Return to the ER if symptoms change or worsen Medical Records Medical records reviewed: Yes I reviewed the patient's medical records Lab Data Lab results reviewed: Yes I reviewed the patient's lab results Labs: Lab Results 07/30/23 07/30/23 Range/Units 15:19 15:20 WBC 13.1 H (4.0-11.0) 10^3/uL RBC 4.00 L (4.20-5.40) 10^6/uL Hgb 11.1 L (12.0-16.0) g/dL Hct 34.0 L (36.0-48.0) % MCV 85.0 (81.0-99.0) fL MCH 27.8 (26.7-34.0) pg MCHC 32.6 (29.9-35.2) g/dL RDW 13.4 (11.0-15.0) % Plt Count 259 (150-450) 10^3/uL MPV 10.4 (9.5-13.5) fL Neut % (Auto) 75.4 H (43.0-75.0) % Lymph % (Auto) 15.9 L (20.5-60.0) % [place] % (Auto) 6.9 (1.7-12.0) % Eos % (Auto) 0.8 L (0.9-7.0) % Baso % (Auto) 0.2 (0.2-2.0) % Neut # (Auto) 9.9 H (1.4-6.5) 10^3/uL Lymph # (Auto) 2.1 (1.2-3.8) 10^3/uL [place] # (Auto) 0.9 H (0.3-0.8) 10^3/uL Eos # (Auto) 0.1 (0.0-0.7) 10^3/uL Baso # (Auto) 0.0 (0.0-0.1) 10^3/uL Abs Immat Gran (auto) 0.11 H (0.00-0.03) 10^3/uL Imm/Tot Granulo (auto) 0.8 H (0.0-0.5) % PT 9.8 (9.0-11.6) sec INR <0.93 Sodium 137 (136-145) mmol/L Potassium 4.0 (3.5-5.1) mmol/L Chloride 103 (98-107) mmol/L Carbon Dioxide 23.9 (21.0-32.0) mmol/L Anion Gap 14.1 BUN 7.0 (7.0-18.0) mg/dL Creatinine 0.44 L (0.55-1.02) mg/dL Est GFR ( Amer) >60 (>=60) Est GFR (Non-Af Amer) >60 (>=60) BUN/Creatinine Ratio 15.9 Glucose 118 H (74-106) mg/dL Calcium 9.6 (8.5-10.1) mg/dL Total Bilirubin 0.4 (0.2-1.0) mg/dL AST 12 L (15-37) U/L ALT 20 (14-59) U/L Alkaline Phosphatase 77 (46-116) U/L Total Protein 7.3 (6.4-8.2) g/dL Albumin 2.9 L (3.4-5.0) g/dL Globulin 4.4 g/dL Albumin/Globulin Ratio 0.7 Urine Color Yellow (YELLOW) Urine Clarity Clear (CLEAR) Urine pH 6.0 (5.0-9.0) Ur Specific [place] >=1.030 A (1.005-1.025) Urine Protein 30 A (NEG/TRACE) mg/dL Urine Glucose (UA) 500 A (NEGATIVE) mg/dL Urine Ketones Trace A (NEGATIVE) mg/dL Urine Occult Blood Negative (NEGATIVE) Urine Nitrite Negative (NEGATIVE) Urine Bilirubin Negative (NEGATIVE) Urine Urobilinogen 1.0 (0.2-1.0) EU/dL Ur Leukocyte Esterase Negative (NEGATIVE) Urine RBC 0-2 (0-2) #/HPF Urine WBC 2-5 A (NONE SEEN) #/HPF Ur Squamous Epith Cells Moderate A (NONE/RARE) #/LPF Urine Crystals None seen (None Seen) #/HPF Urine Bacteria Small A (NONE SEEN) #/HPF Urine Casts None seen (NONE SEEN) #/LPF Urine Mucus Trace A (NONE SEEN) Ur Culture Indicated? Yes POC Glucose 131 H (74-106) mg/dL ECG Data Attestation: I personally reviewed and interpreted this ECG as follows: (Sinus tachycardia at a rate of 105, no acute ST elevation or ectopy. EKG reviewed by attending physician.) Discharge Plan Discharge Stand Alone Forms: Portal Instructions Chief Complaint: Weakness Clinical Impression: Lightheadedness Patient Disposition: Home, Self-Care Time of Disposition Decision: 16:36 Condition: Good Prescriptions / Home Meds: No Action pantoprazole 40 mg tablet,delayed release (DR/EC) 40 mg PO DAILY insulin lispro [Humalog U-100 Insulin] 100 unit/mL solution 1 sliding scale dose subcut Q6H PRN (Reason: hyperglycemia) lamotrigine 100 mg tablet 100 mg PO Q12H desvenlafaxine succinate 100 mg tablet extended release 24 hr 100 mg PO Q24H labetalol 200 mg tablet 200 mg PO TID Print Language: Latvian Instructions: Lightheadedness (ED) Additional Instructions: Follow up with [facility] tomorrow at any time Referrals: Aleksey Bell MD [Primary Care Provider] - 1 week
--- NOTE | 2023-07-30 14:44 | ECG_ITS ---
[facility] Test Date: 2023-07-30 Pat Name: TESS CALVERT Department: Room: - Gender: Female [employer]: : [id number] Requested By: CHAMP LAUREANO Order Number: [id number] Reading MD: CHAMP LAUREANO Measurements Intervals [place] Rate: 105 P: 13 HI: 150 QRS: 38 QRSD: 86 T: 47 QT: 342 QTc: 403 Interpretive Statements 1120 Sinus tachycardia 9140 abnormal rhythm ECG Compared to ECG 06/04/2023 16:51:16 No significant changes Electronically Signed On 07-31-2023 5:40:57 EDT by CHAMP LAUREANO
[2023-07-30 15:21] LABS: Glucometer 131 mg/dL (74-106)
[2023-07-30] MEDS: 0.9 % SODIUM CHLORIDE 1,000 ML 1000 ML IV (15:22)
[2023-07-30 15:33] LABS: Basophils Percent Auto 0.2 % (0.2-2.0); Eosinophils Absolute Auto 0.1 10^3/uL (0.0-0.7); Eosinophils Percent Auto 0.8 % (0.9-7.0); Hemoglobin 11.1 g/dL (12.0-16.0); Immature Granulocytes Abs Auto 0.11 10^3/uL (0.00-0.03); Immature Granulocytes Pct Auto 0.8 % (0.0-0.5); Lymphocytes Absolute Auto 2.1 10^3/uL (1.2-3.8); Lymphocytes Percent Auto 15.9 % (20.5-60.0); Mean Corpuscular HGB Conc 32.6 g/dL (29.9-35.2); Mean Corpuscular Hemoglobin 27.8 pg (26.7-34.0); Mean Platelet Volume 10.4 fL (9.5-13.5); Monocytes Absolute Auto 0.9 10^3/uL (0.3-0.8); Monocytes Percent Auto 6.9 % (1.7-12.0); Neutrophils Absolute Auto 9.9 10^3/uL (1.4-6.5); Neutrophils Percent Auto 75.4 % (43.0-75.0); Platelet Count 259 10^3/uL (150-450); Red Cell Distribution Width 13.4 % (11.0-15.0); White Blood Count 13.1 10^3/uL (4.0-11.0)
[2023-07-30 15:34] LABS: Bilirubin Urine NEGATIVE (NEGATIVE); Blood Urine NEGATIVE (NEGATIVE); Clarity Urine CLEAR (CLEAR); Color Urine YELLOW (YELLOW); Glucose Urine UA 500 mg/dL (NEGATIVE); Ketones Urine TRACE mg/dL (NEGATIVE); Leukocyte Esterase Urine NEGATIVE (NEGATIVE); Nitrite Urine NEGATIVE (NEGATIVE); Protein Urine 30 mg/dL (NEG/TRACE); Specific Gravity Urine >=1.030 (1.005-1.025)
[2023-07-30 15:35] LABS: Urine Microscopic Indicated YES
[2023-07-30 15:40] LABS: Bacteria Urine SMALL #/HPF (NONE SEEN); Mucus Urine TRACE (NONE SEEN); RBC Urine 0-2 #/HPF (0-2); Squamous Epithelial Cell Urine MODERATE #/LPF (NONE/RARE)
[2023-07-30 15:41] LABS: Cast Seen? NONE SEEN #/LPF (NONE SEEN); Crystals Seen? None Seen #/HPF (None Seen); Urine Culture Indicated YES
[2023-07-30 15:46] LABS: Prothrombin Time 9.8 sec (9.0-11.6)
[2023-07-30 15:50] LABS: INR <0.93
[2023-07-30 15:57] LABS: Alanine Aminotransferase 20 U/L (14-59); Albumin Globulin Ratio 0.7; Albumin Level 2.9 g/dL (3.4-5.0); Alkaline Phosphatase 77 U/L (46-116); Anion Gap 14.1; Aspartate Amino Transferase 12 U/L (15-37); BUN Creatinine Ratio 15.9; Bilirubin Total 0.4 mg/dL (0.2-1.0); Calcium 9.6 mg/dL (8.5-10.1); Carbon Dioxide 23.9 mmol/L (21.0-32.0); Chloride 103 mmol/L (98-107); Estimated GFR (African America >60 (>=60); Estimated GFR (Non-African Ame >60 (>=60); Globulin 4.4 g/dL; Glucose 118 mg/dL (74-106); Sodium 137 mmol/L (136-145); Total Protein 7.3 g/dL (6.4-8.2)
== END 2023-07-30 16:52 | disposition home or self-care (01) ==
PROVIDERS: Physician Assistant; Emergency Provider Emergency Medicine; PCP Family Medicine
DX: O26.892 Other specified pregnancy related conditions, second trimester (principal); R42 Dizziness and giddiness; O24.414 Gestational diabetes mellitus in pregnancy, insulin controlled; O16.2 Unspecified maternal hypertension, second trimester; Z3A.27 27 weeks gestation of pregnancy
CPT/HCPCS: 36415; 80053; 81001; 85025; 85610; 87086; 93005; 99285

== ENCOUNTER 2023-08-01 15:15 | Outpatient (OUT) | payer OTHER, SELFPAY ==
[2023-08-01] VITALS (7 sets, daily range): BP systolic 142–193; BP diastolic 69–81; PULSE 116–129
--- OUTSIDE RECORDS SUMMARY | 2023-08-01 15:39 | XMS_ITS | CCD ---
Author Organization [facility] Care Team Providers Care Project Specialist Name Role Phone Champ Bell MD Primary Care Provider Champ Bell Primary Care Physician [phone] Champ Bell MD Primary Care Provider CHAMP BELL Admitting Unavailable COLLINSYCHAMP Primary Care Unavailable CHAMP BELL Referring Unavailable GREGORIO FLOYD Attending Unava ilable HOY ., DR OAKES Primary Care Unavailable HOY ., DR OAEKS Attending Unavailable HOY ., DR OAKES Admitting [...] Admitting Unavailable MITA .GREGORY Attending Unavailable MITA ., GREGORY Admitting Unavailable GRECHNY ., MARINA WILSON Consulting Unavailabl e HOY ., DR OAKES Primary Care Unavailable SYLVESTER PRINGLE Consulting Unavailable PARTH .MARINA Consulting Unavailchad newton HAY ., DR MARTINEZ [...] Unavailable HOY ., DR OAKES Admitting Unavailable [place], DR MAY Silverman Consulting Unavailable CRYSTAL PENG Consulting Unavailable HOY ., DR OAKES Primary Care Unavailable CRYSTAL PENG Attending Unavailable CRYSTAL PENG Admitting Unavailable Champ Bell MD Primary Care Provider Unavailable Primary Care Provider UnavailOPAL Mcneal Attending Unavailable ZORAIDA, MARIO R Referring Unavailable SHITAL FRITZ Attending Unavailable ZORAIDA, MARIO R Referring Unavailable ZORAIDA, MARIO R Referring Unavailable RODEMAN, LEANA Referring Unavailable DOCHEVA, NIKOLINA P Attending Unavailable DOCHEVA, NIKOLINA P Referring Unavailable ZORAIDA, MARIO Attending Unavailable ZORAIDA, MARIO Attending Unavailable RAUL, SHWETHA Attending Unavailable ZORAIDA, MARIO Attending Unavailable ZORAIDA, MARIO Attending Unavailable ZORAIDA, MARIO Attending Unavailable ZORAIDA, MARIO Attending Unavailable RAUL, SHWETHA Attending Unavailable ZORAIDA, MARIO Attending Unavailable RODEMAN, LEANA Attending Unavailable MARY GUIDRY M Referring Unavailable RODEMAN, LEANA Attending Unavailable RODEMAN, LEANA Attending Unavailable ZORAIDA, MARIO R Referring Unavailable RODEMAN, LEANA Attending Unavailable ZORAIDA, MARIO R Referring Unavailable ESTRADA, MARGARITA Referring Unavailable RODEMAN, LEANA Attending Unavailable ZORAIDA, MARIO R Referring Unavailable RODEMAN, LEANA Attending Unavailable ZORAIDA, MARIO R Referring Unavailable RODEMAN, LEANA Attending Unavailable Medications Current Medications Medication Drug Class(es) Dates Sig (Normalized) Sig (Original) acetaminophen 325 mg / HYDROcodone bitartrate 5 mg oral tablet (1 source) Opioid Agonist Start: 07-03-2020 [place] 325 mg-5 mg oral tablet 1 tab(s), [...] mouth in the morning. 0 05/20/2023 Discontinued M- PLUS 27 mg iron- 1 mg [...] 27-1 MG tablet (2 sources) Start: End: 025 take 1 tablet by mouth [...] Start: 08-27-2021 take 2 tablets by mo [facility] twice daily at mealtime metFORMIN (GLUCOPHAGE-XR) 500 MG 24 hr tablet Take 2 (two) tablets (1,000 mg total) by mouth 2 (two) times a day with meals Increase dose gradually as instructed. . 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; Translations: [...] other than malignant neoplasm] 04-17-2023 Episodic Other complications of (1 source) Obesity complicating , unspecified trimester; Translations: [Obesity complicating , unspecified trimester] Onset: 07-21-2023 Chronic Other injuries and conditions due to external causes (1 source) Injury of head; Translations: [Unspecified injury of head, initial encounter] Onset: 08-25-2021 Episodic Other nervous system disorders (1 source) Skin sensation disturbance 06-07-2020 Episodic Other nutritional; endocrine; and metabolic disorders (1 source) Body mass index (BMI) 50.0-59.9, adult; Translations: [Body mass index (BMI) 50.0-59.9, adult] Onset: 07-21-2023 Chronic Other nutritional; endocrine; and metabolic disorders (1 source) Overweight; Translations: [OVERWEIGHT] Onset: 04-28-2022 Episodic Other skin disorders (2 sources) Loss of hair; Translations: [Nonscarring hair loss, unspecified] Episodic Other skin disorders (2 sources) Skin tag 06-05-2020 Episodic Other upper respiratory infections (5 sources) Acute sinusitis, unspecified; Translations: [Acute upper respiratory infection, unspecified] Onset: 03-15-2022 Episodic Residual codes; unclassified (1 source) 26 weeks gestation of ; Translations: [26 weeks gestation of ] Onset: 07-22-2023 Episodic Screening and history of mental health [...] 06-22 C PEPTIDE 5.70 ng/mL High 0.81-3.85 [facility] Comment on above: Result Comment: NOTE Test Performed By: [facility] [address] [place] [address] Advertising Director: Fina Cruz IIIIA #[id number] Performed By: #### 2 345-7 #### [facility] ([id number]) [address] [place] [address], [address] [place] [address] GLUCOSEon 06-23-2023 Glucose [Mass/Vol] 168 mg/dL High 65-99 [facility] Comment on above: Performed By: #### 2 345-7 #### [facility] ([id number]) [address] [place] [address], [address] [address] Glutamate decarboxylase 65 A b IA Qn (S)on 06-23-2023 LATOYA ANTIBODY <5.0 Normal 0.0-5.0 [facility] Comment on above: Result Comment: NOTE INTERPRETIVE INFORMATION: Glutamic Acid Decarboxylase Antibody A value greater than 5.0 IU/mL is considered positive for Glutamic Acid Decarboxylase Antibody (LATOYA Ab). This assay is intended for the semi-quantitative determination of the LATOYA Ab in human serum. Results should be interpreted within the context of clinical symptoms. Performed By: [facility] [address] [place] [address] Advertising Director: Mark Fitzpatrick MD, PhD CLIA Number: [id number] Performed By: #### 2 345-7 #### [facility] ([id number]) [address] [place] [address], [address] [address] Reference Lab Test IDon 06-08 Insulinoma Ab 2 See Below Normal [facility] Comment on above: Result Comment: NOTE TEST [...] Clinical correlation is required. Test Performed By: [facility] [address] [place] [address] Advertising Director: Vaibhav Julian III, M.D. CLIA #[id number] Performed By: #### 2 345-7 #### [facility] ([id number]) [address] [place] [address], [address] [place] [address] CBC without diffon Hematocrit (Bld) [Volume fraction] 40.1 % [facility] Hemoglobin (Bld) [Mass/Vol] 12.8 g/dL [facility] Platelets (Bld) [#/Vol] 305 10*3/uL [facility] Rbc Mcv (Fl) By Automated Count 82.2 [facility] Free Cell DNAon 2023 Free Cell Dna no call [facility] HIV 1&2 AB/AG Screen (P24 AG )on 04-01-2023 HIV 1&2 AB/AG Negative [facility] Hemoglobin A1con 04-01-2023 HbA1c (Bld) [Mass fraction] 7.9 % Abnormal 4.0 - 6.0 % [facility] Interpretation and review of laboratory results Abnormal [facility] Hepatitis B surface antigeno n 04-01-2023 Hepatitis B Surface Antigen Negative [facility] No Panel Informationon 04-01 [facility] Rubella IGG immune statuson 04-01-2023 Rubella immune IgG immune [facility] Syphilis Total(Unknown Syphi lis Status)on 04-01-2023 Syphilis Non-Reactive [facility] TSHon 04-01-2023 Thyroid Stimulating (3Rd Generation) Hormone/ Tsh 1.051 [facility] TSH Qn 1.05 m[IU]/L [facility] Type and screenon 04-01-2023 Abo/Rh(D) Positive [facility] Urine Cultureon 04-01-2023 Bacteria identified Cx Nom (U) no growth [facility] Covid-19 PCR (CVDTBH)on 05-09 SARS-CoV-2 (COVID-19) RNA EZEKIEL+probe Ql (Unsp spec) Not detected Normal NOT DETECTED [facility] Comment on above: Result Comment: This test is not yet approved or cleared by the [place] FDA. When there are no FDA-approved or cleared tests available, and other criteria are met, FDA can make tests available under an emergency access mechanism called an Emergency Use Authorization (EUA). The EUA for this test is supported by the [place] of Health and Human Service's (HHS's) declaration [...] SARS-CoV-2. Performed By: #### C VDTBH #### [facility] [address] [place] [address] Dr. Rosemary Ames GROUP A STREP CULTUREon 05-09 S. pyogenes Ag Ql (Unsp spec) Culture Observations: NEGATIVE FOR GROUP A STREPTOCOCCUS. Normal [facility] Comment on above: Performed By: #### T 7, LIPID, TSH, CMADM, BNP, CMP #### [facility] [address] [place] [address] Dr. Rosemary Ames INFLUENZA A AND B AGon 05-31 INFLUANEGH SEE BELOW Normal [facility] Comment on above: Result Comment: Nega tive for Flu A protein angiten. Infection due to Flu A cannot be ruled out. Flu A angiten in the sample may be below the detection limit of the test. Performed By: #### I NFLUAB #### [facility] [address] [place] [address] Dr. Rosemary Ames INFLUBNEGH SEE BELOW Normal [facility] Comment on above: Result Comment: Nega tive for Flu B protein antigen. Infection due to Flu B cannot be ruled out. Flu B antigen in the sample may be below the detection limit of the test. Performed By: #### I NFLUAB #### [facility] [address] [place] [address] Dr. Rosemary Ames INFLUENZA A AG Negative Normal NEGATIVE SEE COMMENT [facility] Comment on above: Performed By: #### I NFLUAB #### [facility] [address] [place] [address] Dr. Rosemary Ames INFLUENZA B AG Negative Normal NEGATIVE SEE COMMENT [facility] Comment on above: Performed By: #### I NFLUAB #### [facility] [address] [place] [address] [address] [address] Rosemary Ames STREPT SCREENon 05-31-2022 STREP SCREEN A Negative Normal NEGATIVE [facility] Comment on above: Performed By: #### E RUR #### [facility] [address] [place], [place] [id number] Dr. Rosemary Ames SYMPTOMATIC COVID-19 ANTIGEN on 05-31-2022 EUA Statement SEE BELOW Normal [facility] Comment on above: Result Comment: This [...] 7, LIPID, TSH, CMADM, BNP, CMP #### [facility] [address] [place] [address] [address] [address] Rosemary Ames SARS-CoV-2 (COVID-19) RNA EZEKIEL+probe Ql (Unsp spec) Negative Normal NEGATIVE [facility] Comment on above: Performed By: #### T 7, LIPID, TSH, CMADM, BNP, CMP #### [facility] [address] [place] [address] [address] [address] Rosemary Ames ECHOCARDIO M/2D COMPLETEon 0 04-10-2022 ECHOCARDIO M/2D COMPLETE Patient: TESS ASHLEY Exam Date: 04/10/2022 : 1995 Gender:F Ordering : DR CHAMP BELL . Admission #: [id number] Family : Order #: [id number] CLICK HERE TO VIEW EXAM ECHOCARDIOGRAM REPORT [...] M.D. on 04/10/2022 at 17:40 Normal [facility] CBC AUTO DIFFon 03-13-2022 BASO # 0.0 103/ul Normal 0.0-0.1 [facility] Comment on above: Performed By: #### A 1C #### [facility] [address] [place] [address] Dr. Rosemary Ames Basophils/100 WBC (Bld) 0.3 % Normal 0.2-2.0 [facility] Comment on above: Performed By: #### A 1C #### [facility] [address] [place] [address] Dr. Rosemary Ames EO # 0.0 103/ul Normal 0.0-0.7 [facility] Comment on above: Performed By: #### A 1C #### [facility] [address] [place] [address] Dr. Rosemary Ames Eosinophils/100 WBC (Bld) 0.5 % Critically low 0.9-7.0 [facility] Comment on above: Performed By: #### A 1C #### [facility] [address] [place] [address] Dr. Rosemary Ames Erythrocyte distribution width (RBC) [Ratio] 14.5 % Normal 11.0-15.0 [facility] Comment on above: Performed By: #### A 1C #### [facility] [address] [address] [address] Rosemary Ames Hematocrit (Bld) [Volume fraction] 39.7 % Normal 36.0-48.0 [facility] Comment on above: Performed By: #### A 1C #### [facility] [address] [address] [address] Rosemary Ames Hemoglobin (Bld) [Mass/Vol] 12.9 g/dL Normal 12.0-16.0 [facility] Comment on above: Performed By: #### A 1C #### [facility] [address] [address] [address] Rosemary Ames IG # 0.03 10e3/ul Normal 0.00-0.03 [facility] Comment on above: Performed By: #### A 1C #### [facility] [address] [place] [address] Dr. Rosemary Ames IG % 0.4 % Normal 0.0-0.5 [facility] Comment on above: Performed By: #### A 1C #### [facility] [address] [address] [address] Rosemary Ames LYMPH # 0.5 103/ul Critically low 1.2-3.8 [facility] Comment on above: Performed By: #### A 1C #### [facility] [address] [place] [address] Dr. Rosemary Ames Lymphocytes/100 WBC (Bld) 6.6 % Critically low 20.5-60.0 [facility] Comment on above: Performed By: #### A 1C #### [facility] [address] [place] [address] Dr. Rosemary Ames MANUAL DIFF REQ NO Normal [facility] Comment on above: Performed By: #### A 1C #### [facility] [address] [place] [address] Dr. Rosemary Ames MCH (RBC) [Entitic mass] 25.1 pg Critically low 26.7-34.0 [facility] Comment on above: Performed By: #### A 1C #### [facility] [address] [place] [address] Dr. Rosemary Ames MCHC (RBC) [Mass/Vol] 32.5 g/dL Normal 29.9-35.2 [facility] Comment on above: Performed By: #### A 1C #### [facility] [address] [place] [address] Dr. Rosemary Ames MCV (RBC) [Entitic vol] 77.2 fL Critically low 81.0-99.0 [facility] Comment on above: Performed By: #### A 1C #### [facility] [address] [place] [address] Dr. Rosemary Ames MONO # 0.7 103/ul Normal 0.3-0.8 [facility] Comment on above: Performed By: #### A 1C #### [facility] [address] [place] [address] Dr. Rosemary Ames Monocytes/100 WBC (Bld) 9.3 % Normal 1.7-12.0 [facility] Comment on above: Performed By: #### A 1C #### [facility] [address] [place] [address] Dr. Rosemary Ames NEUT # 6.2 103/ul Normal 1.4-6.5 [facility] Comment on above: Performed By: #### A 1C #### [facility] [address] [place] [address] Dr. Rosemary Ames Neutrophils/100 WBC (Bld) 82.9 % Critically high 43.0-75.0 [facility] Comment on above: Performed By: #### A 1C #### [facility] [address] [place] [address] Dr. Rosemary Ames Platelet mean volume (Bld) [Entitic vol] 9.8 fL Normal 9.5-13.5 [facility] Comment on above: Performed By: #### A 1C #### [facility] [address] [place] [address] Dr. Rosemary Ames PLT 246 103/ul Normal 150-450 [facility] Comment on above: Performed By: #### A 1C #### [facility] [address] [place] [address] Dr. Rosemary Ames RBC 5.14 106/ul Normal 4.20-5.40 [facility] Comment on above: Performed By: #### A 1C #### [facility] [address] [place] [address] Dr. Rosemary Amse WBC 7.4 103/ul Normal 4.0-11.0 [facility] Comment on above: Performed By: #### A 1C #### [facility] [address] [place] [address] Dr. Rosemary Ames Covid-19 PCR ([facility])on SARS-CoV-2 (COVID-19) RNA EZEKIEL+probe Ql (Unsp spec) Not detected Normal NOT DETECTED [facility] Comment on above: Result Comment: [...] for this test is supported by the [place] of Health and Human Service's declaration that [...] used). Performed By: #### A 1C #### [facility] [address] [place] [address] Dr. Rosemary Ames D-DIMERon 03-13-2022 D-DIMER 0.26 mg/L FEU Normal <=0.59 [facility] Comment on above: Performed By: #### T 7, LIPID, TSH, CMADM, BNP, CMP #### [facility] [address] [place] [address] Dr. Rosemary Ames D-DIMER COMMENTS SEE BELOW Normal [facility] Comment on above: Result Comment: [...] 7, LIPID, TSH, CMADM, BNP, CMP #### [facility] [address] [place] [address] Dr. Rosemary Amse ER URINE PROFILEon 3 Bilirubin Ql (U) Negative Normal NEGATIVE [facility] Comment on above: Performed By: #### E RUR #### [facility] [address] [place] [address] Dr. Rosemary Ames Clarity (U) CLEAR Normal CLEAR [facility] Comment on above: Performed By: #### E RUR #### [facility] [address] [place] [address] Dr. Rosemary Ames Color (U) LT. YELLOW Normal YELLOW [facility] Comment on above: Performed By: #### E RUR #### [facility] [address] [place] [address] Dr. Rosemary MARTIN A micrscopic examination will be performed if indicated. Normal [facility] Comment on above: Performed By: #### E RUR #### [facility] [address] [place] [address] Dr. Rosemary Ames Glucose Ql (U) Negative Normal NEGATIVE [facility] Comment on above: Performed By: #### E RUR #### [facility] [address] [place] [address] Dr. Rosemary Ames Hemoglobin Ql (U) Negative Normal NEGATIVE [facility] Comment on above: Performed By: #### E RUR #### [facility] [address] [place] [address] Dr. Rosemary Ames Ketones Ql (U) Negative Normal NEGATIVE [facility] Comment on above: Performed By: #### E RUR #### [facility] [address] [place] [address] Dr. Rosemary Ames LEUKOCYTES Negative Normal NEGATIVE [facility] Comment on above: Performed By: #### E RUR #### [facility] [address] [place] [address] Dr. Rosemary Ames Nitrite Ql (U) Negative Normal NEGATIVE [facility] Comment on above: Performed By: #### E RUR #### [facility] [address] [place] [address] Dr. Rosemary Ames pH (U) 6.0 [pH] Normal 5-9 [facility] Comment on above: Performed By: #### E RUR #### [facility] [address] [place] [address] Dr. Rosemary Ames SPEC GRAVITY 1.015 Normal 1.005-<=1.025 [facility] Comment on above: Performed By: #### E RUR #### [facility] [address] [place] [address] Dr. Rosemary Ames UA PROTEIN Negative Normal NEGATIVE/ TRACE [facility] Comment on above: Performed By: #### E RUR #### [facility] [address] [place] [address] Dr. Rosemary Ames UR MICRO IND NOT INDICATED Normal [facility] Comment on above: Performed By: #### E RUR #### [facility] [address] [place] [address] Dr. Rosemary Ames Urobilinogen Qn (U) 0.2 {Vincent'U}/dL Normal 0.2 - 1. 0 [facility] Comment on above: Performed By: #### E RUR #### [facility] [address] [place] [address] Dr. Rosemary Ames INFLUENZA A AND B AGon 03-13 INFLUANEGH SEE BELOW Normal [facility] Comment on above: Result Comment: Nega tive for Flu A protein angiten. Infection due to Flu A cannot be ruled out. Flu A angiten in the sample may be below the detection limit of the test. Performed By: #### E RUR #### [facility] [address] [place] [address] Dr. Rosemary Ames [facility] SEE BELOW Normal [facility] Comment on above: Result Comment: Nega tive for Flu B protein antigen. Infection due to Flu B cannot be ruled out. Flu B antigen in the sample may be below the detection limit of the test. Performed By: #### E RUR #### [facility] [address] [place] [address] Dr. Rosemary Ames INFLUENZA A AG Negative Normal NEGATIVE SEE COMMENT [facility] Comment on above: Performed By: #### E RUR #### [facility] [address] [place] [address] Dr. Rosemary Ames INFLUENZA B AG Negative Normal NEGATIVE SEE COMMENT [facility] Comment on above: Performed By: #### E RUR #### [facility] [address] [place] [address] Dr. Rosemary Ames LACTATE/LACTIC ACIDon 2022 Lactate [Moles/Vol] 2.0 mmol/L Critically high 0.4-1.9 [facility] Comment on above: Performed By: #### A 1C #### [facility] [address] [place] [address] Dr. Rosemary Ames LIPASEon 03-13-2022 Lipase [Catalytic activity/Vol] 79.0 U/L Normal 73.0-393.0 [facility] Comment on above: Performed By: #### A 1C #### [facility] [address] [place] [address] Dr. Rosemary Ames PREG HCG QUALon 03-13-2022 , QUAL Negative Normal NEGATIVE [facility] Comment on above: Performed By: #### A 1C #### [facility] [address] [place] [address] Dr. Rosemary Ames PROF 14(COMP METB)on 023 Albumin [Mass/Vol] 4.1 g/dL Normal 3.4-5.0 [facility] Comment on above: Performed By: #### A 1C #### [facility] [address] [place] [address] Dr. Rosemary Ames Albumin/Globulin [Mass ratio] 1.1 {ratio} Normal [facility] Comment on above: Performed By: #### A 1C #### [facility] [address] [place] [address] Dr. Rosemary Ames ALP [Catalytic activity/Vol] 77 U/L Normal 46-116 [facility] Comment on above: Performed By: #### A 1C #### [facility] [address] [address] [address] Rosemary Ames ALT [Catalytic activity/Vol] 149 U/L Critically high 14-59 [facility] Comment on above: Performed By: #### A 1C #### [facility] [address] [place] [address] Dr. Rosemary Ames Anion gap [Moles/Vol] 16.0 mmol/L Normal [facility] Comment on above: Performed By: #### A 1C #### [facility] [address] [place] [address] Dr. Rosemary Ames AST [Catalytic activity/Vol] 82 U/L Critically high 15-37 [facility] Comment on above: Performed By: #### A 1C #### [facility] [address] [place] [address] Dr. Rosemary Ames Bilirubin [Mass/Vol] 1.0 mg/dL Normal 0.2-1.0 [facility] Comment on above: Performed By: #### A 1C #### [facility] [address] [place] [address] Dr. Rosemary Ames Calcium [Mass/Vol] 9.1 mg/dL Normal 8.5-10.1 [facility] [facility] Comment on above: Performed By: #### A 1C #### [facility] [address] [address] [address] Rosemary Ames Chloride [Moles/Vol] 96 mmol/L Critically low 98-107 [facility] Comment on above: Performed By: #### A 1C #### [facility] [address] [place] [address] Dr. Rosemary Ames CO2 [Moles/Vol] 25.7 mmol/L Normal 21.0-32.0 [facility] Comment on above: Performed By: #### A 1C #### [facility] [address] [address] [address] Rosemary Ames Creatinine [Mass/Vol] 0.78 mg/dL Normal 0.55-1.02 [facility] Comment on above: Performed By: #### A 1C #### [facility] [address] [address] [address] Rosemary Ames EGFR-AF KENYAN >60 Normal >=60 [facility] Comment on above: Performed By: #### A 1C #### [facility] [address] [address] [address] Rosemary Ames EGFR-NON AF KENYAN >60 Normal >=60 [facility] Comment on above: Performed By: #### A 1C #### [facility] [address] [place] [address] Dr. Rosemary Ames Globulin (S) [Mass/Vol] 3.9 g/dL Normal [facility] Comment on above: Performed By: #### A 1C #### [facility] [address] [place] [address] Dr. Rosemary Ames Glucose [Mass/Vol] 190 mg/dL Critically high 74-106 [facility] Comment on above: Performed By: #### A 1C #### [facility] [address] [place] [address] Dr. Rosemary Ames Potassium [Moles/Vol] 3.7 mmol/L Normal 3.5-5.1 [facility] Comment on above: Performed By: #### A 1C #### [facility] [address] [place] [address] Dr. Rosemary Ames Protein [Mass/Vol] 8.0 g/dL Normal 6.4-8.2 [facility] Comment on above: Performed By: #### A 1C #### [facility] [address] [address] [address] Rosemary Aems Sodium [Moles/Vol] 134 mmol/L Critically low 136-145 [facility] Comment on above: Performed By: #### A 1C #### [facility] [address] [address] [address] Rosemary Ames Urea nitrogen [Mass/Vol] 9.0 mg/dL Normal 7.0-18.0 [facility] Comment on above: Performed By: #### A 1C #### [facility] [address] [address] [address] Rosemary Ames Urea nitrogen/Creatinine [Mass ratio] 11.5 mg/mg Normal [facility] Comment on above: Performed By: #### A 1C #### [facility] [address] [address] [address] Rosemary Ames TROPONIN, HIGH SENSITIVITYon 03-13-2022 HSTROP <4.0 Normal 4.0-51.3 [facility] Comment on above: Result Comment: CUT- OFF POINTS HAVE BEEN ESTABLISHED BASED ON THE FOURTH UNIVERSAL DEFINITIONS OF MYOCARDIAL INFARCTION. THE UPPER REFERENCE LIMIT (URL) OF TROPONIN, DEFINED THE 99TH PERCENTILE OF cTnI DISTRIBUTION IN A REFERENCE POPULATION, HAS BEEN CONFIRMED THE DECISION THRESHOLD FOR NM DIAGNOSIS. Previously reported as: 3.9 On 03/13/2022 18:24 By DM9 Performed By: #### A 1C #### [facility] [address] [address] [address] Rosemary Ames TSHon 03-13-2022 TSH 0.440 uIU/mL Normal 0.358-3.740 [facility] Comment on above: Performed By: #### A 1C #### [facility] [id number] Rosemary Ames XR CHEST 1 Von [...] TUAN LEWIS Date: 2022-03-13 18:59 Normal [facility] INSULINon 12-11-2021 Insulin 40.7 uIU/mL Critically high 2.6-24.9 [facility] Comment on above: Performed By: #### A 1C #### [facility] [address] [place] [address] Dr. Rosemary Ames BNPon 12-10-2021 NT PRO BNP <11.1 Normal <=450.0 [facility] Comment on above: Performed By: #### T 7, LIPID, TSH, CMADM, BNP, CMP #### [facility] [address] [place] [address] Dr. Rosemary Ames CARDIAC RY ADMITon 022 CK [Catalytic activity/Vol] 80 U/L Normal 26-192 [facility] Comment on above: Performed By: #### T 7, LIPID, TSH, CMADM, BNP, CMP #### [facility] [address] [place] [address] Dr. Rosemary Ames CK.MB [Mass/Vol] 0.56 ng/mL Normal <=3.60 [facility] Comment on above: Performed By: #### T 7, LIPID, TSH, CMADM, BNP, CMP #### [facility] [address] [place] [address] Dr. Rosemary Ames HSTROP 5.3 pg/mL Normal 4.0-51.3 [facility] Comment on above: Result Comment: CUT- OFF POINTS HAVE BEEN ESTABLISHED BASED ON THE FOURTH UNIVERSAL DEFINITIONS OF MYOCARDIAL INFARCTION. THE UPPER REFERENCE LIMIT (URL) OF TROPONIN, DEFINED THE 99TH PERCENTILE OF cTnI DISTRIBUTION IN A REFERENCE POPULATION, HAS BEEN CONFIRMED THE DECISION THRESHOLD FOR NM DIAGNOSIS. Performed By: #### T 7, LIPID, TSH, CMADM, BNP, CMP #### [facility] [address] [place] [address] Dr. Rosemary Ames RADHA 26 ng/mL Normal 9-82 [facility] Comment on above: Performed By: #### T 7, LIPID, TSH, CMADM, BNP, CMP #### [facility] [address] [place] [address] Dr. Rosemary Ames CBC AUTO DIFFon 12-10-2021 BASO # 0.0 103/ul Normal 0.0-0.1 [facility] Comment on above: Performed By: #### E RUR #### [facility] [address] [address] [address] Rosemary Ames Basophils/100 WBC (Bld) 0.4 % Normal 0.2-2.0 [facility] Comment on above: Performed By: #### E RUR #### [facility] [address] [address] [address] Rosemary Ames EO # 0.1 103/ul Normal 0.0-0.7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 APRNHuoBi [facility] 05-07-2023 15:08-0500 Body weight 112.49 kg Opal Heath APRNHuoBi Work Phone: [facility] 05-07-2023 15:08-0500 Diastolic blood pressure 64 mm[Hg] Opal Heath APRNHuoBi [facility] 05-07-2023 15:08-0500 Heart rate 111 /min Opal Heath APRN-[employer] Work Phone: [facility] 05-07-2023 15:08-0500 Systolic blood pressure 136 mm[Hg] Opal eHath APRN-[employer] Work Phone: [facility] 05-07-2023 14:16-0500 Body height 152.4 cm Tt Ed [facility] 05-07-2023 14:16-0500 Body mass index (BMI) [Ratio] 48.63 kg/m2 Tt Ed [facility] 05-07-2023 14:16-0500 Body weight 112.95 kg [facility] 04-17-2023 10:25-0500 Body mass index (BMI) [Ratio] 47.85 kg/m2 Mario Zoraida DO Work Phone: [facility] 04-17-2023 10:25-0500 Body weight 111.13 kg Mario Zoraida DO Work Phone: [facility] 04-17-2023 10:25-0500 Diastolic blood pressure 76 mm[Hg] Mario Zoraida DO Work Phone: [facility] 04-17-2023 10:25-0500 Systolic blood pressure 122 mm[Hg] Mario Zoraida DO Work Phone: [facility] 08-27-2021 11:09-0400 Body height 152.4 cm Gregorio Floyd MD Work Phone: [facility] 08-27-2021 11:09-0400 Body mass index (BMI) [Ratio] 46.68 kg/m2 Gregorio Floyd MD Work Phone: [facility] 08-27-2021 11:09-0400 Body weight 108.41 kg Gregorio Floyd MD Work Phone: [facility] 08-27-2021 11:09-0400 Diastolic blood pressure 86 mm[Hg] Gregorio Floyd MD Work Phone: [facility] 08-27-2021 11:09-0400 Heart rate 97 /min Gregorio Floyd MD Work Phone: [facility] 08-27-2021 11:09-0400 Systolic blood pressure 125 mm[Hg] Gregorio Floyd MD Work Phone: [facility] 08-25-2021 14:00-0400 Diastolic blood pressure 81 mm[Hg] Tyler Melina [facility] 08-25-2021 14:00-0400 Heart rate 85 /min Tyler Melina [facility] 08-25-2021 14:00-0400 Mean blood pressure 100 mm[Hg] Tyler Melina [facility] 08-25-2021 14:00-0400 Respiratory rate 16 /min Tyler Melina [facility] 08-25-2021 14:00-0400 SaO2% (BldA) [Mass fraction] 98 % Tyler Melina [facility] 08-25-2021 14:00-0400 Systolic blood pressure 138 mm[Hg] Tyler Melina [facility] 08-25-2021 01:00-0400 Diastolic blood pressure 85 mm[Hg] Tyler Melina [facility] 08-25-2021 01:00-0400 Heart rate 87 /min Tyler Melina [facility] 08-25-2021 01:00-0400 Respiratory rate 16 /min Tyler Melina [facility] 08-25-2021 01:00-0400 SaO2% (BldA) [Mass fraction] 98 % Tyler Melina [facility] 08-25-2021 01:00-0400 Systolic blood pressure 140 mm[Hg] Tyler Melina [facility] 08-25-2021 00:00-0400 Diastolic blood pressure 89 mm[Hg] Tyler Melina [facility] 08-25-2021 00:00-0400 Heart rate 95 /min Tyler Melina [facility] 08-25-2021 00:00-0400 SaO2% (BldA) [Mass fraction] 97 % Tyler Melina [facility] 08-25-2021 00:00-0400 Systolic blood pressure 149 mm[Hg] Tyler Melina [facility] 08-24-2021 22:50-0400 Body temperature 100.22 [degF] [facility] Melina [facility] Encounters Encounter Date Encounter Type Care Provider Facility Start: 07-29-2023 End: 07-29-2023 ambulatory [facility] Start: 07-28-2023 End: 07-28-2023 ambulatory MARIO ZORAIDA Not Available Start: 07-23-2023 End: 07-23-2023 ambulatory [facility] Start: 07-22-2023 End: 07-22-2023 ambulatory [facility] Start: 07-14-2023 End: 07-14-2023 ambulatory MARIO ZORAIDA Not Available Start: 07-10-2023 End: 07-10-2023 ambulatory [facility] Start: 06-30-2023 End: 06-30-2023 ambulatory MARIO ZORAIDA Not Available Start: 06-30-2023 End: 06-30-2023 ambulatory [facility] Start: 06-23-2023 End: 06-24-2023 ambulatory [facility] Start: 06-23-2023 End: 06-23-2023 ambulatory [facility] Start: 06-11-2023 End: 06-12-2023 ambulatory MARIO JARRETTO [facility] Start: 06-10-2023 End: 06-10-2023 ambulatory MARIO CONWAY Not Available Start: 06-09-2023 Orders Only Leana franco MD Work Phone: [facility] Start: 06-04-2023 Orders Only Leana franco MD Work Phone: [facility] Comment on above: Type 2 diabetes naz itus in , second trimester (Primary Dx) Start: 05-29-2023 End: 05-29-2023 ambulatory MARIO CONWAY Not Available Start: 05-29-2023 End: 05-29-2023 ambulatory LEANA ESSENTIA HEALTHEARLENE [facility] Start: 05-29-2023 End: 05-29-2023 Office outpatient visit 25 minutes Leana Burr MD Work Phone: [facility] Comment on above: Type 2 diabetes anz itus in , second trimester (Primary Dx) Start: 05-20-2023 End: 05-20-2023 Orders Only Mary Guidry APRN-CAROLAM Work Phone: [facility] Comment on above: Type 2 diabetes naz itus in , second trimester (Primary Dx) Start: 05-20-2023 End: 05-20-2023 Office outpatient new 45 minutes Leana Burr MD Work Phone: [facility] Comment on above: Type 2 diabetes naz itus in , second trimester (Primary Dx) Start: 05-13-2023 Telephone encounter Joann pastrana RN Work Phone: [facility] Start: 05-12-2023 Telephone encounter Joann pastrana RN Work Phone: [facility] Start: 05-12-2023 End: 05-12-2023 ambulatory SHWETHA CARTER Not Available Start: 05-08-2023 Orders Only Queta Zazueta [facility] r[facility]- Medicine at [facility] Comment on above: Type 2 diabetes naz itus in , second trimester (Primary Dx) Start: 05-07-2023 End: 05-07-2023 Office outpatient visit 25 minutes Opal Heath [employer] Work Phone: [facility] Comment on above: Type 2 diabetes naz itus in , second trimester (Primary Dx); Insulin pump in place; HTN in , chronic Start: 05-07-2023 End: 05-07-[address] Work Phone: [facility] Comment on above: Type 2 diabetes naz itus in , second trimester (Primary Dx); Pre-existing type 2 diabetes mellitus during in first trimester Start: 04-23-2023 Chart abstracting Opal falk [employer] Work Phone: [facility] Start: 04-23-2023 Telephone encounter Danyell Ortiz RN Ar ternal- Medicine at [facility] Start: 04-17-2023 End: 04-17-2023 ambulatory MARIO [...] Start: 08-27-2021 End: 08-27-2021 ambulatory CHAMP BELL [facility] Start: 08-27-2021 End: 08-27-2021 Office outpatient new 60 minutes Champ Bell MD Work Phone: [facility] Comment on above: Type 2 diabetes naz itus with hyperglycemia, 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 Facility:[facility] Start: 06-13-2021 End: 06-14-[address] CHAMP BELL . Facility:[facility] Start: 05-04-2021 Transcribe Orders Champ Bell MD Work Phone: [facility] Comment on above: Thyroid disorder (Pr imary Dx); Hair loss Procedures Date Procedure Procedure Detail Performing Clinician Start: 05-12-2023 Microscopic observat ion [Identifier] in Cervix by Cyto stain Leana Burr MD Work Phone: Start: 04-01-2023 Antibody screen Bebe Heath [employer] Work Phone: Start: 04-01-2023 Bacteria identified in [...] Floyd MD Work Phone: None (qualifier value) yTler Summers Plan of Treatment Date Care Activity Detail Author Start: 05-11-2026 Screening for malign ant neoplasm of cervix Pap Smear [facility] Start: 05-28-2024 Tobacco Screening Tobacco Screening [facility] Start: 05-07-2024 Adult BMI Screening Adult BMI Screen ing [facility] Start: 05-07-2024 Tobacco Screening Tobacco Screening [facility] Start: 05-07-2024 End: 05-07-2024 US MFM with or without consult US MFM with or without consult Imaging Routine Type 2 diabetes mellitus in , second trimester Expected: 05/07/2024 (Approximate), Expires: 05/07/2024 [facility] Work Phone: Comment on above: Expected: 05/07/2024 (Approximate), Expires: 05/07/2024 Start: 11-09-2023 Influenza vaccination Influenza Vacc ine [facility] Start: 06-11-2023 End: 06-11-2023 Patient encounter procedure 06/11/2023 1:00 PM EDT Appointment [facility] [address] [place] [address] [facility] Start: 06-10-2023 End: 06-10-2023 Patient encounter procedure 06/10/2023 3:00 PM EDT Office Visit [facility] [address] [place] [address] Leana Burr MD [address] [place] [address] [facility] Start: 06-04-2023 End: 06-04-2023 Patient encounter procedure 06/04/2023 10:45 AM EDT Office Visit [facility] [address] [facility] [address] [place] [phone] Leana Burr MD [address], [facility] [address] [place] [address] [facility] Start: 05-29-2023 End: 05-29-2023 Patient encounter procedure 05/29/2023 10:45 AM EDT Office Visit [facility] [address] [facility] [address] [place] [id number] Leana Burr MD [address], [facility] [address] [place] [address] [facility] Start: 05-20-2023 End: 05-20-2023 Telemedicine consultation with patient 05/20/2023 8:00 AM EDT Telemedicine [facility] [address] [place] [id number] Leana Burr MD [address] [place] [address] [facility] Start: 05-12-2023 End: 05-12-2023 Patient encounter procedure 05/12/2023 8:30 AM EST Routine [facility] [address] [place] [phone] Shwetha Carter PA [address] [place] [address] [facility] Start: 05-07-2023 End: 05-07-2023 Patient encounter procedure 05/07/2023 3:00 PM EST Office Visit [facility] [address] [place] [address] Opal Heath, [facility] [address] [place] [address] [facility] Start: 05-07-2023 End: 05-07-2023 ambulatory 05/07/2023 1:00 PM EST Support Visit [facility] [address] [place] [address] Shital Fritz, RD [address] [facility] GABRIELA, [address] [place] [address] [facility] Start: 11-08-2022 Influenza vaccination Influenza Vacc ine [facility] Start: 11-27-2021 End: 11-27-2021 Patient encounter procedure 11/27/2021 Office Visit Endocrinology Gregorio Floyd MD [address] [place] [address] [facility] Start: 11-27-2021 Hemoglobin A1c measurement A1C [facility] Start: 11-08-2021 Influenza vaccination Sequenti al Influenza Vaccine (Season Ended) [facility] Start: 06-25-2021 End: 06-25-2021 Patient encounter procedure 06/25/2021 Office Visit Endocrinology Gregorio Floyd MD [address] [place] [address] [facility] Start: 11-08-2020 Influenza vaccination Sequenti al Influenza Vaccine (#1) [facility] Start: 11-14-2015 Screening for malign ant neoplasm of cervix Pap Smear [facility] Start: 2013 DTaP,Tdap and Td Vaccines (1 - Tdap) DTaP,Tdap and Td Vaccines (1 - Tdap) [facility] Start: 2012 Adult BMI Follow Up Plan Adult BMI Follow Up Plan [facility] Start: 2012 Adult BMI Screening Adult BMI Screen ing [facility] Start: 2012 Diabetic foot examination Diabetic Foot Exam [facility] Start: 2012 Hepatitis C screening Hepatitis C Sc reening [facility] Start: 2009 HIV screening HIV Screening [facility] Start: 2006 Depression screening using PHQ-9 (Patient Health Questionnaire 9) score [facility] Start: 2006 Tobacco Screening Tobacco Screening [facility] Start: 2005 DTaP,Tdap and Td Vaccines (5 - Tdap) DTaP,Tdap and Td Vaccines (5 - Tdap) [facility] Start: 2004 Diabetic foot examination Foot Exam [facility] Start: 2004 Microalbumin measurement, urine, quantitative Urine Microalbumin [facility] Start: 2004 Ophthalmic examinati on and evaluation Ophthalmology Exam [facility] Start: 2000 Pneumococcal Vaccine : Ped or At-Risk (1 - PCV) Pneumococcal Vaccine: Ped or At-Risk (1 - PCV) [facility] Start: 11-14-1999 COVID-19 Vaccine (#1) COVID-19 Vacci ne (#1) [facility] Start: 11-14-1999 COVID-19 Vaccine (1) COVID-19 Vaccin e (1) [facility] Start: 1997 History and physical examination, annual for health maintenance Wellness Visit [facility] Start: 1994 Glaucoma screening Diabetic Op hthalmology Exam [facility] Start: 1994 Screening for malign ant neoplasm of cervix Pap Smear [facility] Start: 1994 Tetanus vaccination Tetanus: Every 1 0yrs [facility] Start: 1994 Urine screening for protein Urine Microalbumin [facility] [employer] [facility] End: 08-27-2022 C peptide [Mass/volume] in Serum or Plasma C-peptide Lab Routine Type 2 diabetes mellitus with hyperglycemia, unspecified whether [facility] insulin use (HCC) 1 Occurrences starting 08/27/2021 until 08/27/2022 [facility] Comment on above: 1 Occurrences starti ng 08/27/2021 until 08/27/2022 End: 05-19-2024 C-peptide C-peptide Lab Routine Type 2 diabetes mellitus in , second trimester 1 Occurrences starting 05/20/2023 until 05/19/2024 [facility] [employer] Comment on above: 1 Occurrences starti ng 05/20/2023 until 05/19/2024 End: 05-19-2024 GAD65 Ab assay GAD65 Ab assay Lab Routine Type 2 diabetes mellitus in , second trimester 1 Occurrences starting 05/20/2023 until 05/19/2024 [employer] Phone: Comment on above: 1 Occurrences starti ng 05/20/2023 until 05/19/2024 End: 08-27-2022 Glucose [Mass/volume] in Serum or Plasma Glucose Lab Routine Type 2 diabetes mellitus with hyperglycemia, unspecified whether 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 terminal 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 insulin use (HCC) 1 Occurrences starting 08/27/2021 until 08/27/2022 [facility] Comment on above: 1 Occurrences starti ng 08/27/2021 until 08/27/2022 End: 05-19-2024 Glucose [Mass/volume] in Serum or Plasma Glucose Lab Routine Type 2 diabetes mellitus in , second trimester 1 Occurrences starting 05/20/2023 until 05/19/2024 [facility] Comment on above: 1 Occurrences starti ng 05/20/2023 until 05/19/2024 Hepatic function 200 0 panel - Serum or Plasma Hepatic function panel Lab Routine Type 2 diabetes mellitus with hyperglycemia, unspecified whether [facility] insulin use (HCC) Ordered: 08/27/2021 [facility] Comment on above: Ordered: 08/27/2021 End: 05-19-2024 Insulinoma Associated Antibody 2 Insulinoma Associated Antibody 2 Lab Routine Type 2 diabetes mellitus in , second trimester 1 Occurrences starting 05/20/2023 until 05/19/2024 [facility] Comment on above: 1 Occurrences starti ng 05/20/2023 until 05/19/2024 End: 08-27-2022 Islet cell antibody measurement Anti-Islet Cell (GAD65) Antibody Lab Routine Type 2 diabetes mellitus with hyperglycemia, unspecified whether [facility] insulin use (HCC) 1 Occurrences starting 08/27/2021 until 08/27/2022 [facility] Comment on above: 1 Occurrences starti ng 08/27/2021 until 08/27/2022 End: 08-27-2022 Lipid 1996 panel - Serum or Plasma Lipid Panel Lab Routine Type 2 diabetes mellitus with hyperglycemia, unspecified whether [facility] insulin use (HCC) 1 Occurrences starting 08/27/2021 until 08/27/2022 [facility] Comment on above: 1 Occurrences starti ng 08/27/2021 until 08/27/2022 Microalbumin measurement, urine, quantitative Microalbumin/Creatinine Ratio, UR Random Lab Routine Type 2 diabetes mellitus with hyperglycemia, unspecified whether ferry terminal supervisor insulin use (HCC) Ordered: 08/27/2021 [facility] Work Phone: Comment on above: Ordered: 08/27/2021 Payers Date Payer Category Payer Medicaid [id number] 1994 Unknown [id number] 2.0.1.845946.3.579.2.903 1994 Unknown [id number] 2.16.84 0.1.039788.3.579.2.593 1994 Unknown [id number] 2.16.84 0.1.467927.3.579.2.593 1994 Unknown [id number] 2.16.84 0.1.568229.3.579.2.593 1994 Unknown [id number] 2.16.84 0.1.550916.3.579.2.593 1994 Unknown [id number] 2.16.84 0.1.817739.3.579.2.593 1994 Unknown [id number] 2.16.84 0.1.046228.3.579.2.593 1994 Unknown [id number] 2.16.84 0.1.549846.3.579.2.593 1994 Unknown [id number] 2.16.84 0.1.738185.3.579.2.593 1994 Unknown [id number] 2.16.84 0.1.821149.3.579.2.593 1994 Unknown [id number] 2.16.84 0.1.684280.3.579.2.593 1994 Unknown [id number] 2.16.84 0.1.352160.3.579.2.593 1994 Unknown [id number] 2.16.84 0.1.465481.3.579.2.593 1994 Unknown [id number] 2.16.84 0.1.511028.3.579.2.593 1994 Unknown [id number] 2.16.8 40.1.299885.3.579.2.1286 1994 Unknown [id number] 2.16.8 40.1.017051.3.579.2.1286 1994 Unknown [id number] 2.16.8 40.1.310681.3.579.2.1286 1994 Unknown [id number] 2.16.8 40.1.519088.3.579.2.1286 1994 Unknown [id number] 2.16.8 40.1.371847.3.579.2.1286 1994 Unknown [id number] 2.16.84 0.1.651834.3.579.2.1259 1994 Unknown [id number] 2.16.84 0.1.232820.3.579.2.1259 1994 Unknown [id number] 2.16.84 0.1.724337.3.579.2.1259 1994 Unknown [id number] 2.16.84 0.1.186255.3.579.2.1258 1994 Unknown [id number] 2.16.84 0.1.761781.3.579.2.1258 1994 Unknown [id number] 2.16.84 0.1.583503.3.579.2.1258 1994 Unknown [id number] 2.16.84 0.1.604466.3.579.2.1258 1994 Unknown [id number] 2.16.84 0.1.889250.3.579.2.1258 1994 Unknown [id number] 2.16.84 0.1.109841.3.579.2.1258 1994 Unknown [id number] 2.16.840 .1.631267.3.579.2.1258 1994 Unknown [id number] 2.16.8 40.1.810410.3.579.2.1285 1994 Unknown [id number] 2.16.8 40.1.322416.3.579.2.1285 1994 Unknown [id number] 2.16.8 40.1.375098.3.579.2.1285 1994 Unknown [id number] 2.16.8 40.1.032057.3.579.2.1285 1994 Unknown [id number] 2.16.8 40.1.249428.3.579.2.1285 1994 Unknown [id number] 2.16.8 40.1.433726.3.579.2.1285 1994 Unknown [id number] 2.16.8 40.1.202832.3.579.2.1285 1994 Unknown [id number] 2.16.8 40.1.342887.3.579.2.1286 1959 Medicaid [id number] 1959 Unknown [id number] 1959 Unknown [id number] 1959 Unknown [id number] Social History Date Type Detail Facility Start: 04-23-2023 Tobacco smoking status NHIS Tobacco smoking consumption unknown [facility] Start: 1994 Sex Assigned At Not on file [facility] Start: 08-24-2021 Tobacco smoking status Never [facility] Start: 03-24-2023 End: 05-07-2023 Sex Assigned At Female [facility] Start: 08-17-2021 End: 08-27-2021 Exposure to SARS-CoV-2 (event) Not sure [facility] Start: 03-24-2023 End: 05-07-2023 Tobacco smoking status NHIS Never smoked tobacco [facility] Start: 04-17-2023 Alcohol intake Lifetime non-d jorge (finding) [facility] Start: 03-24-2023 End: 05-07-2023 History of Social function [facility] Start: 02-04-2023 [facility] Start: 1994 Sex Assigned At Female [facility] Start: 02-27-2023 Gender identity Identifies as female gender (finding) [facility] Start: 05-07-2023 Tobacco use and exposure Smokeless tobacco non-user [facility] Start: 05-07-2023 End: 05-29-2023 Alcohol intake Ex-drinker (finding) [facility] Procedure Code Equipment Code Equipment Origin al Text Equipment Identifier Dates 1 each by Other route if needed [id number] Start: 03-11-2023 Use a new needle with each injection [id number] Start: 05-07-2023 Functional Status Date Assessment Result Facility 08-24-2021 Functional Status N/A [facility] Clinical Notes 08-24-2021 to 05-29-2023 Leana Burr MD - 05/29/2023 10:45 AM Maria A Burr MD - 05/20/2023 8:00 AM EDTTelephone Encounter - Joann Walsh RN - 05/13/2023 3:19 PM Donte Zazueta CMA - 05/07/2023 3:00 PM EST Note Date & Type Note Facility 05-29-2023 History of Present illness Narrative [facility]- Diabetes Visit TELEMEDICINE VISIT: This is an audiovisual visit. This is done to assess the patient and to determine the best medical care. The patient was located at home in [place] and the provider was located at the medical office in [place]. The patient states they are not driving or taking care of other activities now. Consent to proceed obtained. Tess Calvert is a 27 y.o. with type 2 [...] of Delivery: 10/28/23. She is referred from [facility] who is managing along with us. She has had her diabetes education with [facility]. Please see media for full pump download. [...] within last year: none. Complications: History of NM, CHF: none Medications none Last Lipid panel drawn due after History of HTN: no Medications none History of Diabetic Retinopathy: unknown. Last seen [employer] Ther[employer] C[employer] unknown History of peripheral neuropathy: none Medications [...] breathing Abdomen: gravid Assessment and Plan Tess Calvert is a 27 y.o. with type 2 diabetes. She is now at 17w0d with Estimated Date of Delivery: 10/28/23. She has had diabetes education with [facility]. We reviewed the following We have discussed [...] breakfast: try low sugar protein shakes or bahraini yogurt if appetite lower in the AM. [...] to foot injury. : I agree with [facility] recommendations for care. NSTs twice weekly with weekly WEI starting at 32 weeks. Growth US every 4 weeks starting at 28 weeks. Tentative delivery by 39 weeks, but will defer to MFM. Follow up in 1 week. Following at least once per trimester with [facility] as well. LEANA BURR MD [facility] History of Present illness Narrative [facility]- Diabetes Visit Tess Calvert is a 27 y.o. with type 2 [...] of Delivery: 10/28/23. She is referred from [facility] who is managing along with us. She has had her diabetes education with [facility]. Please see media for full pump download. [...] within last year: none. Complications: History of NM, CHF: none Medications none Last Lipid panel drawn due after History of HTN: no Medications none History of Diabetic Retinopathy: unknown. Last seen [employer]mal [employer] unknown History of peripheral neuropathy: none Medications [...] mellitus (CMS-HCC) Disease of thyroid gland Hypertension No past [...] LABALBU , BILITOT Assessment and Plan Tess Calvert is a 27 y.o. with type 2 diabetes. She is now at 17w0d with Estimated Date of Delivery: 10/28/23. She has had diabetes education with [facility]. We reviewed the following We have discussed [...] breakfast: try low sugar protein shakes or bahraini yogurt if appetite lower in the AM. [...] with MFM as well. LEANA BURR MD [facility] documented in this encounter [facility] 05-13-2023 Miscellaneous Notes Summary: MFM Insulin Pump [...] denied any questions. documented in this encounter [facility] 05-13-2023 Telephone encounter Note Summary: MFM Insulin [...] meals. Verbalized understanding and denied any questions. [facility] Work Phone: 05-12-2023 Miscellaneous Notes Summary: [facility] Insulin Pump Questions Called and spoke with [...] week 05/20/23. Informed would call back after [facility] provider reviews. [facility] 05-12-2023 Telephone encounter Note Summary: [facility] Insulin Pump Questions Called and spoke with [...] week 05/20/23. Informed would call back after [facility] provider reviews. [facility] [employer] Work Phone: 05-07-2023 History of Present illness [...] results Have you been seen here at [facility] in a previous ? N/a Recent ER visits or hospitalizations? No Bring blood sugar log or meter with you today? (Please bring them with you for every visit at [facility]) yes Traveled outside the country in [...] past year HISTORY OF PRESENT ILLNESS: Tess Calvert is a pleasant 27 y.o. at 15w1d due on Estimated Date of Delivery: 10/28/23. Currently the patient has no complaints. She is being followed at [facility] Promedic due to Type 2 DM. See [...] TSH 1.05 04/01/2023 No results found for: [id number] No results found for: CREATININE , BUN [...] values to us weekly by e-mail to: [email or web address] or by fax to: [phone] Minutes spent kyop-uz-oqbr; more than 50% of time spent counseling and/or coordinating care with additional time for record review and communication to referring provider. SABINA Uribe 05/07/23 1556 documented in this encounter [facility] [employer] [facility] 05-07-2023 History of Present illness Narrative [...] care for you: OB Provider [facility] Name: Sebastian Name: No primary care provider on file. Name:[facility] City: City: City: Last time seen: [...] demonstration Is there anything about your culture, orthodox, or personal beliefs we need to know about to care for you: Other none Primary Language spoken: Palauan [22] Primary Language for learning: Palauan Are you currently in a relationship where you are physically hurt, threatened or made to fee afraid? 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 [] Yes [x] No Marital status/Living [...] If yes, where: On thge following scale, havasupai the number, which describes your current level [...] yes, where and when: [x] [] Tess Calvert was seen today and diabetes education was [...] Past Medical History: Diagnosis Date Diabetes mellitus ([facility]) Disease of thyroid gland Hypertension OB History [...] 112.9 kg (249 lb) Weight Gain Goals: 11-# Lab Data: BP BP Readings from Last 1 Encounters: No data found for BP Hgb Hct [facility] OGTT HgA1C SMBG: Frequency : Testing Times: Glucose meter: Records Kept? [] Yes [] No Lifestyle Factors: Occupation of the mother: Substance Abuse: Living Conditions Hours worked per week not working Educational Level high school Family issues none Cultural/ethnic/gnosticist influences none Exercise approved by MD? Current Exercise program walking Who prepares the meal pt Who purchase food at your home? pt Equipment use for cooking/food storage has all Food Assistance(Ex.WIC, Food [place]) has apt Dining out Yes 1 time per month Appetite/Appetite changes increased Weight History stable Do you have cats at home? Feeding Plans Breast Feeding If you have cats, who cleans the litter box? Cravings/Aversions/Pica none currently Nutrition Assessment Worksheet: Week/Weekend Food Recall Breakfast Bellamy Or cereal Or eggs Snack Lunch Grilled cheese Or noodles Snack Dinner 2 Cheeseburger Sugar free pink lemonade Snack Snack Time Tess Calvert present for diet instruction per doctor order [...] time 40 minutes. documented in this encounter [facility] 05-07-2023 Instructions Danyell Ortiz RN - 05/07/2023 [...] HOURS WHILE AWAKE documented in this encounter [facility] 04-23-2023 Miscellaneous Notes Called pt due toher not coming to her appt today and she stated she had left a message that she needed to tammi due to not having transportation to her appt this morning. Her name given back to the schedulers to call and resched her. documented in this encounter [facility] 04-23-2023 Telephone encounter Note Called pt due toher not coming to her appt today and she stated she had left a message that she needed to tammi due to not having transportation to her appt this morning. Her name given back to the schedulers to call and resched her. [facility] 04-17-2023 History of Present illness Narrative Reason [...] Hand fracture, right Type 2 diabetes mellitus ([facility]) Family History Problem Relation Name Age of [...] nursing note reviewed. Exam conducted with a advisory application developer present. Vitals: Estimated body mass index is [...] Mario Conway DO documented in this encounter [facility] 08-27-2021 Instructions Gregorio Floyd [...] levothyroxine for now. documented in this encounter [facility] 08-27-2021 History of Present illness Narrative [...] ALKPHOS, BILITOT No results found for: TSH, [id number], THYROIDAB No results found for: PTH, CALCIUM, JACQUES, PHOS Lab Results Component Value Date HGBA1C 7.7 (A) 08/27/2021 No results found for: LDLCALC, CHOL, HDL, TRIG, CHOLHDL No results found for: MICALBCREAT, MEBX20MIG No results found for: CPEPTIDE Assessment and [...] acanthosis nigricans indicate T2DM, but will get MBL58-Ah and c-peptide/glucose given the young age of [...] Due for foot exam no 08/2021; to application counselor on foot care next visit CV [...] Floyd MD Endocrinology documented in this encounter [facility] 08-25-2021 Hospital Discharge instructions Patient Education [...] homework. ?Working on the computer, using social [employer], and texting. Avoid activities that could cause another head injury, such as playing sports, until your health care provider approves. Having another head injury, especially before the first one has healed, can be dangerous. Ask your health care provider when it is safe for you to return to your regular activities, including work or school. Ask your health care provider for a yige-ua-tdrp plan for gradually returning to activities. Ask [...] your friends, family, a trusted colleague, and foundry worker apprentice about your injury, symptoms, and restrictions. Have them watch for any new or worsening problems. General instructions Take skzj-byz-uwljjvx and prescription medicines only as told by [...] 02/24/2006 Document Revised: 03/24/2019 Document Reviewed: 03/19/2019 [employer] Patient Education 2020 [employer] 08/25/2021 02:09:26 Cervical Sprain Cervical Sprain [...] provider or physical therapist. General instructions Take wbmt-nog-dfysjlr and prescription medicines only as told by [...] 12/22/2007 Document Revised: 06/16/2019 Document Reviewed: 10/23/2016 [employer] Patient Education 2020 [employer] Follow Up Care 08/24/2021 22:42:21 With:Champ Bell Address: [address] [place] [phone] (1) When:Within 3 Day(s) [facility] 08-24-2021 Evaluation + Plan note Extrac [...] w/o Contrast CT Spine Cervical w/o Contrast [facility]* Diagnosis Thyroid disorder- Primary Unspecified disorder of thyroid Hair loss Unspecified alopecia [facility] Diagnosis Type 2 diabetes mellitus with hyperglycemia, unspecified whether [facility] insulin use (HCC)- Primary Thyroid disorder Unspecified disorder of thyroid Hair loss Unspecified alopecia [facility]* Diagnosis Bleeding in early Unspecified hemorrhage in early , unspecified as to episode of care Follow-up exam Unspecified follow-up examination [facility] Diagnosis Type 2 diabetes mellitus in , second trimester- Primary Insulin pump in place Insulin pump status HTN in , chronic [facility] Diagnosis Type 2 diabetes mellitus in , second trimester- Primary Pre-existing type 2 diabetes mellitus during in first trimester documented [facility] Diagnosis Type 2 [...] second trimester- Primary documented [facility] this [facility] Narrative No data available for this section [facility]ructionsNot on filedocumented in this encounter [facility] filedocumented in this encounter [facility] on filedocumented in this encounter [facility] on filedocumented in this encounter [facility] System[facility]ructionsNot on filedocumented in this encounter [facility] System[facility]ructionsNot on filedocumented in this encounter [facility] note No data available for this section [facility] (narrative)* Consultation (Routine) - Pending Review Specialty Diagnoses / Procedures Referred By Contac t Referred To Contact Maternal and Medicine Diagnoses Type 2 diabetes mellitus in , second trimester Insulin pump in place Opal Heath APRN-CNP [address] [place] [address] Leana Burr MD [address], [place] [address] Referral ID Status Reason Start Date Expiration Date Visits Requested Visits Authorized [id number] Pending Review Specialty Services Required 05/07/2023 05/06/2024 1 1 [facility] Consultation (Routine) - Pending Review Specialty Diagnoses / Procedures Referred By Contac t Referred To Contact Endocrinology Diagnoses Type 2 diabetes mellitus in , second trimester Mary Guidry APRN-CNM [address], [address] [place] [id number] Leana Burr MD [address], [facility] [address] [place] [address] Referral ID Status Reason Start Date Expiration Date Visits Requested Visits Authorized [id number] Pending Review Specialty Services Required 05/20/2023 05/19/2024 1 1 [facility] for visit Narrative* Consultation (Routine) - Pending Review Specialty Diagnoses / Procedures Referred By Contac t Referred To Contact Endocrinology Diagnoses Type 2 diabetes mellitus in , second trimester Mary Guidry, GALLO-JHONATAN [address], [address] [place] [address] Leana Burr MD [address], [address] [address] Referral ID Status Reason Start Date Expiration Date Visits Requested Visits Authorized [id number] Pending Review Specialty Services Required 05/20/2023 05/19/2024 1 1 [facility] Summary Purpose Family History No Family History Records FoundNo Family History Records FoundNo Family History Records FoundNo Family History Records FoundNo Family History Records FoundNo Family History Records FoundNo Family History Records Found Advance Directives No Advanced Directives Records FoundDocuments on File Type Date Recorded Patient Research Associate Molecular Biology Expl anation Advance Directives and Livin g Will 05/02/2021 12:00 AM Reason for Referral Specialty Diagnoses / Procedures Referred By Contac t Referred To Contact Endocrinology Diagnoses Thyroid disorder Hair loss Champ Bell MD [address] [facility] [place] [address] [place] [address] Gregorio Floyd MD [address] [place] [id number] Referral ID Status Reason Start Date Expiration Date Visits Requested Visits Authorized [id number] Authorized Specialty Services Required/Pat ient's Best Interest 05/04/2021 05/04/2022 1 1 Specialty Diagnoses / Procedures Referred By Contac t Referred To Contact Maternal and Medicine Diagnoses Type 2 diabetes mellitus in , second trimester Procedures US MF with or without consult Opal Heath, SIZE STAMPER[employer] [address] [place] [address] [facility] Maternal Med [address] [place] [address] Referral ID Status Reason Start Date Expiration Date V isits Requested Visits Authorized [id number] Pending Review 05/08/2023 05/07/2024 1 1 Additional Source Comments INFORMATION SOURCE (unrecogn ized section and content) DATE CREATED AUTHOR 02/06/2021 [facility] DATE CREATED AUTHOR AUTHOR'S ORGANIZ ATION 08/27/2021 [facility] DATE CREATED AUTHOR AUTHOR'S ORGANIZ ATION 08/30/2021 [facility] DATE CREATED AUTHOR AUTHOR'S ORGANIZ ATION 06/02/2022 [facility] DATE CREATED AUTHOR AUTHOR'S ORGANIZ ATION 07/24/2023 [facility] DATE CREATED AUTHOR AUTHOR'S ORGANIZ ATION 07/30/2023 [facility] dical Specialists EPIC DATE CREATED AUTHOR AUTHOR'S ORGANIZ ATION 07/31/2023 [facility] Care Teams (unrecognized sec tion and content) Project Specialist Relationship Specialty Start Date End Date Champ Bell MD [address] [place] [address] PCP - General Family Medicine 05/02/21 Project Specialist Relationship Specialty Start Date End Date Champ Bell MD [address] [place] [address] PCP - General Family Medicine 05/02/21 Project Specialist Relationship Specialty Start Date End Date Champ Bell MD [address] [place] [address] PCP - General 03/13/23 Reason for Visit (unrecogniz ed section and content) Reason Comments Thyroid Problem Specialty Diagnoses / Procedures Referred By Contac t Referred To Contact Endocrinology Diagnoses Thyroid disorder Hair loss Champ Bell MD [address] [facility] [place] [address] [place] [address] Gregorio Floyd MD [address] [place] [id number] Referral ID Status Reason Start Date Expiration Date V isits Requested Visits Authorized [id number] Closed Specialty Services Required/Deanna ent's Best Interest 05/04/2021 05/04/2022 1 1 Reason Comments ER Follow-up Reason Comments [email or web address] Reason Comments Diabetes Specialty Diagnoses / Procedures Referred By Contac t Referred To Contact Maternal and Medicine Diagnoses Pre-existing type 2 diabetes mellitus during in first trimester Mario Conway R, DO [address] [place] [address] [facility] [address] [place] [address] Referral ID Status Reason Start Date Expiration Date Visits Requested Visits Authorized [id number] Pending Review Specialty Services Required 04/15/2023 04/14/2024 [...] BE BASED ON THE PRIMARY CLINICAL RECORDS. [facility]. provides no warranty or guarantee of the accuracy or completeness of information in this document.
--- NOTE | 2023-08-01 15:59 | US_ITS ---
[address] [address] Patient Name: TESS CALVERT MRN: [facility]:[id number] date: 1995 Sex: F Assigned Patient Location: [facility] Current Patient Location: [facility] Accession/Order Number: [id number] Exam Date: 08/01/2023 17:20 Report Date: 08/01/2023 19:50 At the request of: ALICIA JIMENEZ Procedure: US OB BPP w non-stress EXAM: US OB BPP w non-stress HISTORY: Hypertension in COMPARISON: US OB >= 14 weeks Fetus Date 05/20/2023 TECHNIQUE: Limited OB ultrasound is performed for evaluation of biophysical profile. Multiple grayscale and color images are submitted for review FINDINGS: Limited OB ultrasound is performed for evaluation of biophysical profile. breathing movements: 2 gross body movements: 2 tone: 2 Qualitative amniotic fluid volume: 2 Total biophysical profile score is 8 out of 8. Amniotic fluid index measures 22.4 cm. heart rate is 154 bpm. US/US OB BPP w non-stress IMPRESSION: Total biophysical profile score is 8 out of 8. heart rate is 154 bpm. Electronically authenticated by: TAN LOREDO Date: 08/01/2023 19:50
[2023-08-01] MEDS: LABETALOL HCL 200 MG TABLET 300 MG PO (17:46)
--- NOTE | 2023-08-01 17:55 | PC.NURSE ---
1748- Pt medicated with medication per order. D/c instructions given. Pt discharged to home.
== END 2023-08-01 17:49 | disposition home or self-care (01) ==
LOC: FBCO 15:18 → FBC 15:19
PROVIDERS: PCP Family Medicine; Visit Provider Obstetrics & Gynecology
DX: O16.3 Unspecified maternal hypertension, third trimester (principal); Z3A.27 27 weeks gestation of pregnancy
CPT/HCPCS: 76818

== ENCOUNTER 2023-08-06 07:30 | Outpatient (OUT) | payer OTHER, SELFPAY ==
--- OUTSIDE RECORDS SUMMARY | 2023-08-06 07:53 | XMS_ITS ---
Patient Summarization (C-CDA 2.1 CCD) Created on: August 06, 2023 David CHERY~JOSELIN SMITH : 1995 Sex: Female Author Organization Sample organization Care Team Providers Care Business Analytics Director Name Role Phone Champ Bell MD Primary Care Provider Champ Bell Primary Care Physician [phone] Champ Bell MD Primary Care Provider CHAMP [...] Unavailable HOY ., DR OAKES Admitting Unavailable [place], DR MAY Silverman Consulting Unavailable CRYSTAL PENG Unavailable HOY ., DR OAKES Primary Care Unavailable CRYSTAL PENG Attending Unavailable CRYSTAL PENG Admitting Unavailable Champ Bell MD Primary Care Provider [phone] Unavailable Primary Care Provider UnavailOPAL Mcneal Attending Unavailable ZORAIDA, AMRIO R Referring Unavailable SHITAL FRITZ Attending Unavailable ZORAIDA, MARIO R Referring Unavailable ZORAIDA, AMRIO R Referring Unavailable RODEMAN, LEANA Referring Unavailable DOCHEVA, NIKOLINA P Attending Unavailable DOCHEVA, NIKOLINA P Referring Unavailable RODEMAN, LEANA Attending Unavailable MARY GUIDRY M Referring Unavailable RODEMAN, LEANA Attending Unavailable RODEMAN, LEANA Attending Unavailable ZORAIDA, MARIO R Referring Unavailable RODEMAN, LEANA Attending Unavailable ZORAIDA, MARIO R Referring Unavailable ESTRADA, MARGARITA Referring Unavailable RODEMAN, LEANA Attending Unavailable ZORAIDA, MARIO R Referring Unavailable RODEMAN, LEANA Attending Unavailable ZORAIDA, MARIO R Referring Unavailable RODEMAN, LEANA Attending Unavailable ZORAIDA, MARIO Attending Unavailable ZORAIDA, MARIO Attending Unavailable RAULSHWETHA ALEX Attending Unavailable ZORAIDA, MARIO Attending Unavailable ZORAIDA, MARIO Attending Unavailable ZORAIDA, MARIO Attending Unavailable ZORAIDA, MARIO Attending Unavailable RAULSHWETHA Attending Unavailable ZORAIDA, MARIO Attending Unavailable Encounters Encounter Date Encounter Type Care Provider Facility Start: 08-05-2023 End: 08-05-2023 ambulatory MARIO ZORAIDA Not Available Start: 07-29-2023 End: 07-29-2023 ambulatory [facility] Start: 07-28-2023 End: 07-28-2023 ambulatory MARIO ZORAIDA Not Available Start: 07-23-2023 End: 07-23-2023 ambulatory [facility] Start: 07-22-2023 End: 07-22-2023 ambulatory [facility] Start: 07-14-2023 End: 07-14-2023 ambulatory MARIO ZORAIDA Not Available Start: 07-10-2023 End: 07-10-2023 ambulatory [facility] Start: 06-30-2023 End: 06-30-2023 ambulatory MARIO ZORAIDA Not Available Start: 06-30-2023 End: 06-30-2023 ambulatory [facility] Start: 06-23-2023 End: 06-24-[address] [facility] Start: 06-23-2023 End: 06-23-2023 ambulatory [facility] Start: 06-11-2023 End: 06-12-2023 ambulatory MARIO R ZORAIDA [facility] Start: 06-10-2023 End: 06-10-2023 ambulatory MARIO ZORAIDA Not Available Start: 06-09-2023 Orders Only Leana franco MD Work Phone: [facility] Start: 06-04-2023 Orders Only Leana franco MD Work Phone: [facility] Comment on above: Type 2 diabetes naz itus in , second trimester (Primary Dx) Start: 05-29-2023 End: 05-29-2023 ambulatory MARIO ZORAIDA Not Available Start: 05-29-2023 End: 05-29-2023 ambulatory [facility] Start: 05-29-2023 End: 05-29-2023 Office outpatient visit 25 minutes Leana Burr MD Work Phone: [facility] Comment on above: Type 2 diabetes naz itus in , second trimester (Primary Dx) Start: 05-20-2023 End: 05-20-2023 Orders Only Mary Guidry [employer] Work Phone: [facility] Comment on above: Type 2 diabetes naz itus in , second trimester (Primary Dx) Start: 05-20-2023 End: 05-20-2023 Office outpatient new 45 minutes Leana Burr MD Work Phone: [facility] Comment on above: Type 2 diabetes naz itus in , second trimester (Primary Dx) Start: 05-13-2023 Telephone encounter Joann pastrana RN Work Phone: [facility] Start: 05-12-2023 Telephone encounter Joann pastrana RN Work Phone: [facility] Start: 05-12-2023 End: 05-12-2023 ambulatory SHWETHA CARTER Not Available Start: 05-08-2023 Orders Only Queta Zazueta [facility] Comment on above: Type 2 diabetes naz itus in , second trimester (Primary Dx) Start: 05-07-2023 End: 05-07-2023 Office outpatient visit 25 minutes Opal Heath COUNTER INTELLIGENCE-STATISTICAL MODELER Work Phone: [facility] Comment on above: Type 2 diabetes naz itus in , second trimester (Primary Dx); Insulin pump in place; HTN in , chronic Start: 05-07-2023 End: 05-07-[address] Work Phone: [facility] Comment on above: Type 2 diabetes naz itus in , second trimester (Primary Dx); Pre-existing type 2 diabetes mellitus during in first trimester Start: 04-23-2023 Chart abstracting Opal Levi dileep [employer] INTELLIGENCE-STATISTICAL MODELER Work Phone: [facility] Start: 04-23-2023 Telephone encounter Danyell Ortiz RN Ma ternal- [facility] at [facility] Start: 04-17-2023 End: 04-17-2023 ambulatory MARIO ZORAIDA [...] Start: 08-27-2021 End: 08-27-2021 ambulatory CHAMP BELL [facility] Start: 08-27-2021 End: 08-27-2021 Office outpatient new 60 minutes Champ Bell MD Work Phone: [facility] Comment on above: Type 2 diabetes naz itus with hyperglycemia, unspecified whether equipment operator intermodal yard insulin use (HCC) (Primary Dx); Thyroid disorder; Hair loss Start: 08-24-2021 End: 08-25-2021 Emergency department patient visit Tyler Erazo [facility] Start: 08-15-2021 End: 08-15-2021 ambulatory GREGORY FAN . Facility:[facility] Start: 06-13-2021 End: 06-14-[address] CHAMP BELL . Facility:[facility] Start: 05-04-2021 Transcribe Orders Champ Bell MD Work Phone: [facility] Comment on above: Thyroid disorder (Pr imary Dx); Hair loss Medical Equipment Procedure Code Equipment Code Equipment Origin al Text Equipment Identifier Dates 1 each by Other route if needed [id number] Start: 03-11-2023 Use a new needle with each injection [id number] Start: 05-07-2023 Medications Current Medications Medication Drug Class(es) Dates Sig (Normalized) Sig (Original) acetaminophen 325 mg / HYDROcodone bitartrate 5 mg oral tablet (1 source) Opioid Agonist Start: 07-03-2020 Helper 325 mg-5 mg oral tablet 1 tab(s), [...] with breakfast . 0 08/27/2021 Discontinued (Reorder) Payers Date Payer Category Payer Medicaid [id number] 1995 Unknown [id number] 2.16. 840.1.524698.3.579.2.903 1995 Unknown [id number] 2.16.84 0.1.827275.3.579.2.593 1995 Unknown [id number] 2.16.84 0.1.493231.3.579.2.593 1994 Unknown [id number] 2.16.84 0.1.770451.3.579.2.593 1994 Unknown [id number] 2.16.84 0.1.301233.3.579.2.593 1994 Unknown [id number] 2.16.84 0.1.706283.3.579.2.593 1994 Unknown [id number] 2.16.84 0.1.087760.3.579.2.593 1994 Unknown [id number] 2.16.84 0.1.558201.3.579.2.593 1994 Unknown [id number] 2.16.84 0.1.784674.3.579.2.593 1994 Unknown [id number] 2.16.84 0.1.800756.3.579.2.593 1994 Unknown [id number] 2.16.84 0.1.236873.3.579.2.593 1994 Unknown [id number] 2.16.84 0.1.681881.3.579.2.593 1994 Unknown [id number] 2.16.84 0.1.237803.3.579.2.593 1994 Unknown [id number] 2.16.84 0.1.416727.3.579.2.593 1994 Unknown [id number] 2.16.8 40.1.326579.3.579.2.1286 1994 Unknown [id number] 2.16.8 40.1.451704.3.579.2.128 1994 Unknown [id number] 2.16.8 40.1.565184.3.579.2.1286 1994 Unknown [id number] 2.16.8 40.1.793303.3.579.2.128 1994 Unknown [id number] 2.16.8 40.1.399197.3.579.2.1286 1994 Unknown [id number] 2.16.8 40.1.734544.3.579.2.128 1995 Unknown [id number] 2.16.8 40.1.353140.3.579.2.1285 1994 Unknown [id number] 2.16.8 40.1.257006.3.579.2.1285 1994 Unknown [id number] 2.16.8 40.1.872241.3.579.2.1285 1994 Unknown [id number] 2.16.8 40.1.016778.3.579.2.1285 1994 Unknown [id number] 2.16.8 40.1.208227.3.579.2.1285 1994 Unknown [id number] 2.16.8 40.1.920285.3.579.2.1285 1994 Unknown [id number] 2.16.8 40.1.580273.3.579.2.1285 1994 Unknown [id number] 2.16.84 0.1.076506.3.579.2.1258 1994 Unknown [id number] 2.16.84 0.1.165470.3.579.2.1258 1994 Unknown [id number] 2.16.84 0.1.485426.3.579.2.1258 1994 Unknown [id number] 2.16.84 0.1.450932.3.579.2.1258 1994 Unknown [id number] 2.16.84 0.1.563429.3.579.2.1258 1994 Unknown [id number] 2.16.84 0.1.586786.3.579.2.1258 1994 Unknown [id number] 2.16.84 0.1.339434.3.579.2.1258 1994 Unknown [id number] 2.16.84 0.1.812408.3.579.2.1258 1994 Unknown [id number] 2.16.84 0.1.142355.3.579.2.1259 1994 Unknown [id number] 2.16.84 0.1.242372.3.579.2.1259 1994 Unknown [id number] 2.16.840 .1.015634.3.579.2.1259 1960 Medicaid [id number] 1959 Unknown [id number] 1959 Unknown [id number] 1959 Unknown [id number] Plan of Treatment Date Care Activity Detail Author Start: 05-11-2026 Screening for malign ant neoplasm of cervix Pap Smear [facility] Start: 05-28-2024 Tobacco Screening Tobacco Screening [facility] Start: 05-07-2024 Adult BMI Screening Adult BMI Screen ing [facility] Start: 05-07-2024 Tobacco Screening Tobacco Screening [facility] Start: 05-07-2024 End: 05-07-2024 US MFM with or without consult US MFM with or without consult Imaging Routine Type 2 diabetes mellitus in , second trimester Expected: 05/07/2024 (Approximate), Expires: 05/07/2024 [employer] Work Phone: Comment on above: Expected: 05/07/2024 (Approximate), Expires: 05/07/2024 Start: 11-09-2023 Influenza vaccination Influenza Vacc ine [facility] Start: 06-11-2023 End: 06-11-2023 Patient encounter procedure 06/11/2023 1:00 PM EDT Appointment [facility] [address] [place] [address] [facility] Start: 06-10-2023 End: 06-10-2023 Patient encounter procedure 06/10/2023 3:00 PM EDT Office Visit [facility] [address] [place] [address] Leana Burr MD [address] [place] [address] [facility] Start: 06-04-2023 End: 06-04-2023 Patient encounter procedure 06/04/2023 10:45 AM EDT Office Visit [facility] [address] [place] [phone] Leana Burr MD [address] [place] [address] [facility] Start: 05-29-2023 End: 05-29-2023 Patient encounter procedure 05/29/2023 10:45 AM EDT Office Visit [facility] [address] [place] [phone] Leana Burr MD [address] [place] [address] [facility] Start: 05-20-2023 End: 05-20-2023 Telemedicine consultation with patient 05/20/2023 8:00 AM EDT Telemedicine [facility] [address] [place] [phone] Leana Burr MD [address] [place] [address] [facility] Start: 05-12-2023 End: 05-12-2023 Patient encounter procedure 05/12/2023 8:30 AM EST Routine [facility] [address] [place] [address] Shwetha Carter PA [address] [place] [address] [facility] Start: 05-07-2023 End: 05-07-2023 Patient encounter procedure 05/07/2023 3:00 PM EST Office Visit [facility] [address] [facility] [place] [address] Ivana Opal, COUNTER INTELLIGENCE-STATISTICAL MODELER [address] [place] [address] [facility] Start: 05-07-2023 End: 05-07-2023 ambulatory 05/07/2023 1:00 PM EST Support Visit [facility] [address] [place] [address] Shital Fritz, RD [address] [facility] [address] [place] [address] [facility] Start: 11-08-2022 Influenza vaccination Influenza Vacc ine [facility] Start: 11-27-2021 End: 11-27-2021 Patient encounter procedure 11/27/2021 Office Visit Endocrinology Gregorio Floyd MD [address] [place] [address] [facility] Start: 11-27-2021 Hemoglobin A1c measurement A1C [facility] Start: 11-08-2021 Influenza vaccination Sequenti al Influenza Vaccine (Season Ended) [facility] Start: 06-25-2021 End: 06-25-2021 Patient encounter procedure 06/25/2021 Office Visit Endocrinology Gregorio Floyd MD [address] [place] [address] [facility] Start: 11-08-2020 Influenza vaccination Sequenti al Influenza Vaccine (#1) [facility] Start: 11-14-2015 Screening for malign ant neoplasm of cervix Pap Smear [facility] Start: 2013 DTaP,Tdap and Td Vaccines (1 - Tdap) DTaP,Tdap and Td Vaccines (1 - Tdap) [facility] Start: 2012 Adult BMI Follow Up Plan Adult BMI Follow Up Plan [facility] Start: 2012 Adult BMI Screening Adult BMI Screen ing [facility] Start: 2012 Diabetic foot examination Diabetic Foot Exam [facility] Start: 2012 Hepatitis C screening Hepatitis C Sc reening [facility] Start: 2009 HIV screening HIV Screening [facility] Start: 2006 Depression screening using PHQ-9 (Patient Health Questionnaire 9) score [facility] Start: 2006 Tobacco Screening Tobacco Screening [facility] Start: 2005 DTaP,Tdap and Td Vaccines (5 - Tdap) DTaP,Tdap and Td Vaccines (5 - Tdap) [facility] Start: 2004 Diabetic foot examination Foot Exam [facility] Start: 2004 Microalbumin measurement, urine, quantitative Urine Microalbumin [facility] Start: 2004 Ophthalmic examinati on and evaluation Ophthalmology Exam [facility] Start: 2000 Pneumococcal Vaccine : Ped or At-Risk (1 - PCV) Pneumococcal Vaccine: Ped or At-Risk (1 - PCV) [facility] Start: 11-14-1999 COVID-19 Vaccine (#1) COVID-19 Vacci ne (#1) [facility] Start: 11-14-1999 COVID-19 Vaccine (1) COVID-19 Vaccin e (1) [facility] Start: 1997 History and physical examination, annual for health maintenance Wellness Visit [facility] Start: 1994 Glaucoma screening Diabetic Op hthalmology Exam [facility] Start: 1994 Screening for malign ant neoplasm of cervix Pap Smear [facility] Start: 1994 Tetanus vaccination Tetanus: Every 1 0yrs [facility] Start: 1994 Urine screening for protein Urine Microalbumin [facility] End: 08-27-2022 C peptide [Mass/volume] in Serum or Plasma C-peptide Lab Routine Type 2 diabetes mellitus with hyperglycemia, unspecified whether equipment operator intermodal yard insulin use (HCC) 1 Occurrences starting 08/27/2021 until 08/27/2022 [facility] Comment on above: 1 Occurrences starti ng 08/27/2021 until 08/27/2022 End: 05-19-2024 C-peptide C-peptide Lab Routine Type 2 diabetes mellitus in , second trimester 1 Occurrences starting 05/20/2023 until 05/19/2024 [facility] Comment on above: 1 Occurrences starti ng 05/20/2023 until 05/19/2024 End: 05-19-2024 GAD65 Ab assay GAD65 Ab assay Lab Routine Type 2 diabetes mellitus in , second trimester 1 Occurrences starting 05/20/2023 until 05/19/2024 [email or web address] Phone: Comment on above: 1 Occurrences starti ng 05/20/2023 until 05/19/2024 End: 08-27-2022 Glucose [Mass/volume] in Serum or Plasma Glucose Lab Routine Type 2 diabetes mellitus with hyperglycemia, unspecified whether equipment operator intermodal yard insulin use (HCC) 1 Occurrences starting 08/27/2021 until 08/27/2022 [facility] Comment on above: 1 Occurrences starti ng 08/27/2021 until 08/27/2022 End: 05-19-2024 Glucose [Mass/volume] in Serum or Plasma Glucose Lab Routine Type 2 diabetes mellitus in , second trimester 1 Occurrences starting 05/20/2023 until 05/19/[address] [facility] Comment on above: 1 Occurrences starti ng 05/20/2023 until 05/19/2024 Hepatic function 200 0 panel - Serum or Plasma Hepatic function panel Lab Routine Type 2 diabetes mellitus with hyperglycemia, unspecified whether half-way insulin use (HCC) Ordered: 08/27/2021 [facility] Comment on above: Ordered: 08/27/2021 End: 05-19-2024 Insulinoma Associated Antibody 2 Insulinoma Associated Antibody 2 Lab Routine Type 2 diabetes mellitus in , second trimester 1 Occurrences starting 05/20/2023 until 05/19/[address] [facility] Comment on above: 1 Occurrences starti ng 05/20/2023 until 05/19/2024 End: 08-27-2022 Islet cell antibody measurement Anti-Islet Cell (GAD65) Antibody Lab Routine Type 2 diabetes mellitus with hyperglycemia, unspecified whether equipment operator intermodal yard insulin use (HCC) 1 Occurrences starting 08/27/2021 until 08/27/2022 [facility] Comment on above: 1 Occurrences starti ng 08/27/2021 until 08/27/2022 End: 08-27-2022 Lipid 1996 panel - Serum or Plasma Lipid Panel Lab Routine Type 2 diabetes mellitus with hyperglycemia, unspecified whether half-way insulin use (HCC) 1 Occurrences starting 08/27/2021 until 08/27/2022 [facility] Comment on above: 1 Occurrences starti ng 08/27/2021 until 08/27/2022 Microalbumin measurement, urine, quantitative Microalbumin/Creatinine Ratio, UR Random Lab Routine Type 2 diabetes mellitus with hyperglycemia, unspecified whether equipment operator intermodal yard insulin use (HCC) Ordered: 08/27/2021 [facility] Work Phone: Comment on above: Ordered: 08/27/2021 Problems Active Problems Problem Classification Problem Date [...] COUGH, UNSPECIFIED; Translations: [COUGH, UNSPECIFIED] Onset: 03-13-2022 Procedures Date Procedure Procedure Detail Performing Clinician Start: 05-12-2023 Microscopic observat ion [Identifier] in Cervix by Cyto stain Leana Burr MD Work Phone: Start: 04-01-2023 Antibody screen Bebe Heath COUN[employer] INTELLIGENCE-STATISTICAL MODELER Work Phone: Start: 04-01-2023 Bacteria identified in [...] Work Phone: None (qualifier value) Tyler Summers Results Test Name Value Interpretation Reference Range Facility C peptide [Mass/Vol]on 06-22 C PEPTIDE 5.70 ng/mL High 0.81-3.85 [facility] Comment on above: Result Comment: NOTE Test Performed By: [facility] [address] [place] [address] Plate Fitter: Fina Cruz III #[id number] Performed By: #### 2 345-7 #### [facility] ([id number]) [address] [place] [address], [address] [place] [address] GLUCOSEon 06-23-2023 Glucose [Mass/Vol] 168 mg/dL High 65-99 [facility] Comment on above: Performed By: #### 2 345-7 #### [facility] ([id number]) [address] [place] [address], [address] [place] [address] Glutamate decarboxylase 65 A b IA Qn (S)on 06-23-2023 LATOYA ANTIBODY <5.0 Normal 0.0-5.0 [facility] Comment on above: Result Comment: NOTE INTERPRETIVE INFORMATION: Glutamic Acid Decarboxylase Antibody A value greater than 5.0 IU/mL is considered positive for Glutamic Acid Decarboxylase Antibody (LATOYA Ab). This assay is intended for the semi-quantitative determination of the LATOYA Ab in human serum. Results should be interpreted within the context of clinical symptoms. Performed By: [facility] [address] [place] [id number] Plate Fitter: Mark Fitzpatrick MD, PhD CLIA Number: [id number] Performed By: #### 2 345-7 #### [facility] ([id number]) [address] [place] [address], [address] [place] [address] Reference Lab Test IDon 06-08 Insulinoma Ab 2 See Below Normal [facility] Comment on above: Result Comment: NOTE TEST [...] Clinical correlation is required. Test Performed By: [facility] [address] [place] [address] Plate Fitter: Vaibhav Julian III, M.D. CLIA #[id number] Performed By: #### 2 345-7 #### [facility] ([id number]) [address] [place] [address], [address] [place] [address] CBC without diffon Hematocrit (Bld) [Volume fraction] 40.1 % [facility] [Mass/Vol] 12.8 g/dL [facility] Platelets (Bld) [#/Vol] 305 10*3/uL [facility] Rbc Mcv (Fl) By Automated Count 82.[address] [facility] Free Cell DNAon 2023 [facility] HIV 1&2 AB/AG Screen (P24 AG )on 04-01-2023 HIV 1&2 AB/AG Negative [facility] Hemoglobin A1con 04-01-2023 HbA1c (Bld) [Mass fraction] 7.9 % Abnormal 4.0 - 6.0 % [facility] Interpretation and review of laboratory results Abnormal [facility] Hepatitis B surface antigeno n 04-01-2023 Hepatitis B Surface Antigen Negative [facility] No Panel Informationon 04-[address] [facility] Rubella IGG immune statuson 04-01-2023 Rubella immune IgG immune [facility] Syphilis Total(Unknown Syphi lis Status)on 04-01-2023 Syphilis Non-Reactive [facility] TSHon 04-01-2023 Thyroid Stimulating (3Rd Generation) Hormone/ Tsh 1.[address] [facility] TSH Qn 1.05 m[IU]/L [facility] Type and screenon 04-01-2023 Abo/Rh(D) Positive [facility] Urine Cultureon 04-01-2023 Bacteria identified Cx Nom (U) no growth [facility] Covid-19 PCR (CVDTBH)on 05-09 SARS-CoV-2 (COVID-19) RNA EZEKIEL+probe Ql (Unsp spec) Not detected Normal NOT DETECTED [facility] Comment on above: Result Comment: This test is not yet approved or cleared by the [place] FDA. When there are no FDA-approved or cleared tests available, and other criteria are met, FDA can make tests available under an emergency access mechanism called an Emergency Use Authorization (EUA). The EUA for this test is supported by the Fish Smoker of Health and Human Service's (HHS's) declaration [...] SARS-CoV-2. Performed By: #### C VDTBH #### [facility] [address] [place] [address] Dr. Rosemary Ames GROUP A STREP CULTUREon 05-09 S. pyogenes Ag Ql (Unsp spec) Culture Observations: NEGATIVE FOR GROUP A STREPTOCOCCUS. Normal [facility] Comment on above: Performed By: #### T 7, LIPID, TSH, CMADM, BNP, CMP #### [facility] [address] [place] [address] Dr. Rosemary Ames INFLUENZA A AND B AGon 05-31 INFLUANEGH SEE BELOW Normal [facility] Comment on above: Result Comment: Nega tive for Flu A protein angiten. Infection due to Flu A cannot be ruled out. Flu A angiten in the sample may be below the detection limit of the test. Performed By: #### I NFLUAB #### [facility] [address] [place] [address] Dr. Rosemary Ames INFLUBNEG SEE BELOW Normal [facility] Comment on above: Result Comment: Nega tive for Flu B protein antigen. Infection due to Flu B cannot be ruled out. Flu B antigen in the sample may be below the detection limit of the test. Performed By: #### I NFLUAB #### [facility] [address] [place] [address] Dr. Rosemary Ames INFLUENZA A AG Negative Normal NEGATIVE SEE COMMENT [facility] Comment on above: Performed By: #### I NFLUAB #### [facility] [address] [place] [address] Dr. Rosemary Ames INFLUENZA B AG Negative Normal NEGATIVE SEE COMMENT [facility] Comment on above: Performed By: #### I NFLUAB #### [facility] [address] [place] [address] Dr. Rosemary Ames STREPT SCREENon 05-31-2022 STREP SCREEN A Negative Normal NEGATIVE [facility] Comment on above: Performed By: #### E RUR #### [facility] [address] [address] [address] Rosemary Ames SYMPTOMATIC COVID-19 ANTIGEN on 05-31-2022 EUA Statement SEE BELOW Normal [facility] Comment on above: Result Comment: This [...] 7, LIPID, TSH, CMADM, BNP, CMP #### [facility] [address] [place] [address] Dr. Rosemary Ames SARS-CoV-2 (COVID-19) RNA EZEKIEL+probe Ql (Unsp spec) Negative Normal NEGATIVE [facility] Comment on above: Performed By: #### T 7, LIPID, TSH, CMADM, BNP, CMP #### [facility] [address] [place] [address] Dr. Rosemray Ames ECHOCARDIO M/2D COMPLETEon 0 04-10-2022 ECHOCARDIO M/2D COMPLETE Patient: TESS ASHLEY Exam Date: 04/10/2022 : 1995 Gender:F Ordering : DR CHAMP BELL . Admission #: [id number] Family : Order #: [id number] CLICK HERE TO VIEW EXAM ECHOCARDIOGRAM REPORT [...] M.D. on 04/10/2022 at 17:40 Normal [facility] CBC AUTO DIFFon 03-13-2022 BASO # 0.0 103/ul Normal 0.0-0.1 [facility] Comment on above: Performed By: #### A 1C #### [facility] [address] [place] [address] Dr. Rosemary Ames Basophils/100 WBC (Bld) 0.3 % Normal 0.2-2.0 [facility] Comment on above: Performed By: #### A 1C #### [facility] [address] [place] [address] Dr. Rosemary Ames EO # 0.0 103/ul Normal 0.0-0.7 [facility] Comment on above: Performed By: #### A 1C #### [facility] [address] [place] [address] Dr. Rosemary Ames Eosinophils/100 WBC (Bld) 0.5 % Critically low 0.9-7.0 [facility] Comment on above: Performed By: #### A 1C #### [facility] [address] [place] [address] Dr. Rosemary Ames Erythrocyte distribution width (RBC) [Ratio] 14.5 % Normal 11.0-15.0 [facility] Comment on above: Performed By: #### A 1C #### [facility] [address] [place] [address] Dr. Rosemary Ames Hematocrit (Bld) [Volume fraction] 39.7 % Normal 36.0-48.0 [facility] Comment on above: Performed By: #### A 1C #### [facility] [address] [place] [address] Dr. Rosemary Ames Hemoglobin (Bld) [Mass/Vol] 12.9 g/dL Normal 12.0-16.0 [facility] Comment on above: Performed By: #### A 1C #### [facility] [address] [place] [address] Dr. Rosemary Ames IG # 0.03 10e3/ul Normal 0.00-0.03 [facility] Comment on above: Performed By: #### A 1C #### [facility] [address] [place] [address] Dr. Rosemary Ames IG % 0.4 % Normal 0.0-0.5 [facility] Comment on above: Performed By: #### A 1C #### [facility] [address] [place] [address] Dr. Rosemary Ames LYMPH # 0.5 103/ul Critically low 1.2-3.8 [facility] Comment on above: Performed By: #### A 1C #### [facility] [address] [place] [address] Dr. Rosemary Ames Lymphocytes/100 WBC (Bld) 6.6 % Critically low 20.5-60.0 [facility] Comment on above: Performed By: #### A 1C #### [facility] [address] [place] [address] Dr. Rosemary Ames MANUAL DIFF REQ NO Normal [facility] Comment on above: Performed By: #### A 1C #### [facility] [address] [place] [address] Dr. Rosemary Ames MCH (RBC) [Entitic mass] 25.1 pg Critically low 26.7-34.0 [facility] Comment on above: Performed By: #### A 1C #### [facility] [address] [place] [address] Dr. Rosemary Ames MCHC (RBC) [Mass/Vol] 32.5 g/dL Normal 29.9-35.2 [facility] Comment on above: Performed By: #### A 1C #### [facility] [address] [place] [address] Dr. Rosemary Ames MCV (RBC) [Entitic vol] 77.2 fL Critically low 81.0-99.0 [facility] Comment on above: Performed By: #### A 1C #### [facility] [address] [place] [address] Dr. Rosemary Ames MONO # 0.7 103/ul Normal 0.3-0.8 [facility] Comment on above: Performed By: #### A 1C #### [facility] [address] [place] [address] Dr. Rosemary Ames Monocytes/100 WBC (Bld) 9.3 % Normal 1.7-12.0 [facility] Comment on above: Performed By: #### A 1C #### [facility] [address] [place] [address] Dr. Rosemary Ames NEUT # 6.2 103/ul Normal 1.4-6.5 [facility] Comment on above: Performed By: #### A 1C #### [facility] [address] [place] [address] Dr. Rosemary Ames Neutrophils/100 WBC (Bld) 82.9 % Critically high 43.0-75.0 [facility] Comment on above: Performed By: #### A 1C #### [facility] [address] [place] [address] Dr. Rosemary Ames Platelet mean volume (Bld) [Entitic vol] 9.8 fL Normal 9.5-13.5 [facility] Comment on above: Performed By: #### A 1C #### [facility] [address] [place] [address] Dr. Rosemary Ames PLT 246 103/ul Normal 150-450 [facility] Comment on above: Performed By: #### A 1C #### [facility] [address] [place] [address] Dr. Rosemary Ames RBC 5.14 106/ul Normal 4.20-5.40 [facility] Comment on above: Performed By: #### A 1C #### [facility] [address] [place] [address] Dr. Rosemary Ames WBC 7.4 103/ul Normal 4.0-11.0 [facility] Comment on above: Performed By: #### A 1C #### [facility] [address] [address] [address] Rosemary Ames Covid-19 PCR ([facility])on SARS-CoV-2 (COVID-19) RNA EZEKIEL+probe Ql (Unsp spec) Not detected Normal NOT DETECTED [facility] Comment on above: Result Comment: When diagnostic [...] for this test is supported by the [place] of [employer] and Human Service's declaration that [...] used). Performed By: #### A 1C #### [facility] [address] [address] [address] Rosemary Ames D-DIMERon 03-13-2022 D-DIMER 0.26 mg/L FEU Normal <=0.59 [facility] Comment on above: Performed By: #### T 7, LIPID, TSH, CMADM, BNP, CMP #### [facility] [address] [place], [place] [address] Dr. Rosemary Ames D-DIMER COMMENTS SEE BELOW Normal [facility] Comment on above: Result Comment: Incr [...] 7, LIPID, TSH, CMADM, BNP, CMP #### [facility] [address] [place] [address] Dr. Rosemary TORRES URINE PROFILEon 3 Bilirubin Ql (U) Negative Normal NEGATIVE [facility] Comment on above: Performed By: #### E RUR #### [facility] [address] [place] [address] Dr. Rosemary Ames Clarity (U) CLEAR Normal CLEAR [facility] Comment on above: Performed By: #### E RUR #### [facility] [address] [place] [address] Dr. Rosemary Ames Color (U) LT. YELLOW Normal YELLOW [facility] Comment on above: Performed By: #### E RUR #### [facility] [address] [place] [address] Dr. Rosemary MARTIN A micrscopic examination will be performed if indicated. Normal [facility] Comment on above: Performed By: #### E RUR #### [facility] [address] [place] [address] Dr. Rosemary Ames Glucose Ql (U) Negative Normal NEGATIVE [facility] Comment on above: Performed By: #### E RUR #### [facility] [address] [place] [address] Dr. Rosemary Ames Hemoglobin Ql (U) Negative Normal NEGATIVE [facility] Comment on above: Performed By: #### E RUR #### [facility] [address] [place] [address] Dr. Rosemary Ames Ketones Ql (U) Negative Normal NEGATIVE [facility] Comment on above: Performed By: #### E RUR #### [facility] [address] [place] [address] Dr. Rosemary Ames LEUKOCYTES Negative Normal NEGATIVE [facility] Comment on above: Performed By: #### E RUR #### [facility] [address] [place] [address] Dr. Rosemary Ames Nitrite Ql (U) Negative Normal NEGATIVE [facility] Comment on above: Performed By: #### E RUR #### [facility] [address] [place] [address] Dr. Rosemary Ames pH (U) 6.0 [pH] Normal 5-9 [facility] Comment on above: Performed By: #### E RUR #### [facility] [address] [place] [address] Dr. Rosemary Ames SPEC GRAVITY 1.015 Normal 1.005-<=1.025 [facility] Comment on above: Performed By: #### E RUR #### [facility] [address] [place] [address] Dr. Rosemary Ames UA PROTEIN Negative Normal NEGATIVE/ TRACE [facility] Comment on above: Performed By: #### E RUR #### [facility] [address] [place] [address] Dr. Rosemary Ames UR MICRO IND NOT INDICATED Normal [facility] Comment on above: Performed By: #### E RUR #### [facility] [address] [place] [address] Dr. Rosemary Ames Urobilinogen Qn (U) 0.2 {Vincent'U}/dL Normal 0.2 - 1. 0 [facility] Comment on above: Performed By: #### E RUR #### [facility] [address] [place] [address] Dr. Rosemary Ames INFLUENZA A AND B [facility]on 03[facility] SEE BELOW Normal [facility] Comment on above: Result Comment: Nega tive for Flu A protein angiten. Infection due to Flu A cannot be ruled out. Flu A angiten in the sample may be below the detection limit of the test. Performed By: #### E RUR #### [facility] [address] [place] [address] Dr. Rosemary Ames INFLUBNEGH SEE BELOW Normal [facility] Comment on above: Result Comment: Nega tive for Flu B protein antigen. Infection due to Flu B cannot be ruled out. Flu B antigen in the sample may be below the detection limit of the test. Performed By: #### E RUR #### [facility] [address] [place] [address] Dr. Rosemary Ames INFLUENZA A AG Negative Normal NEGATIVE SEE COMMENT [facility] Comment on above: Performed By: #### E RUR #### [facility] [address] [place] [address] Dr. Rosemary Ames INFLUENZA B AG Negative Normal NEGATIVE SEE COMMENT [facility] Comment on above: Performed By: #### E RUR #### [facility] [address] [place] [address] Dr. Rosemary Ames LACTATE/LACTIC ACIDon 2022 Lactate [Moles/Vol] 2.0 mmol/L Critically high 0.4-1.9 [facility] Comment on above: Performed By: #### A 1C #### [facility] [address] [place] [address] Dr. Rosemary Ames LIPASEon 03-13-2022 Lipase [Catalytic activity/Vol] 79.0 U/L Normal 73.0-393.0 [facility] Comment on above: Performed By: #### A 1C #### [facility] [address] [place] [address] Dr. Rosemary Ames PREG HCG QUALon 03-13-2022 , QUAL Negative Normal NEGATIVE [facility] Comment on above: Performed By: #### A 1C #### [facility] [address] [place] [address] Dr. Rosemary Ames PROF 14(COMP METB)on 023 Albumin [Mass/Vol] 4.1 g/dL Normal 3.4-5.0 [facility] Comment on above: Performed By: #### A 1C #### [facility] [address] [place] [address] Dr. Rosemary Ames Albumin/Globulin [Mass ratio] 1.1 {ratio} Normal [facility] Comment on above: Performed By: #### A 1C #### [facility] [address] [place] [address] Dr. Rosemary Ames ALP [Catalytic activity/Vol] 77 U/L Normal 46-116 [facility] Comment on above: Performed By: #### A 1C #### [facility] [address] [address] [address] Rosemary Ames ALT [Catalytic activity/Vol] 149 U/L Critically high 14-59 [facility] Comment on above: Performed By: #### A 1C #### [facility] [address] [address] [address] Rosemary Ames Anion gap [Moles/Vol] 16.0 mmol/L Normal [facility] Comment on above: Performed By: #### A 1C #### [facility] [address] [address] [address] Rosemary Ames AST [Catalytic activity/Vol] 82 U/L Critically high 15-37 [facility] Comment on above: Performed By: #### A 1C #### [facility] [address] [place] [address] Dr. Rosemary Ames Bilirubin [Mass/Vol] 1.0 mg/dL Normal 0.2-1.0 [facility] Comment on above: Performed By: #### A 1C #### [facility] [address] [address] [address] Rosemary Ames Calcium [Mass/Vol] 9.1 mg/dL Normal 8.5-10.1 [facility] Comment on above: Performed By: #### A 1C #### [facility] [address] [place] [address] Dr. Rosemary Ames Chloride [Moles/Vol] 96 mmol/L Critically low 98-107 [facility] Comment on above: Performed By: #### A 1C #### [facility] [address] [address] [address] Rosemary Ames CO2 [Moles/Vol] 25.7 mmol/L Normal 21.0-32.0 [facility] Comment on above: Performed By: #### A 1C #### [facility] [address] [place] [address] Dr. Rosemary Ames Creatinine [Mass/Vol] 0.78 mg/dL Normal 0.55-1.02 [facility] Comment on above: Performed By: #### A 1C #### [facility] [address] [address] [address] Rosemary Ames EGFR-AF CANADIAN >60 Normal >=60 [facility] Comment on above: Performed By: #### A 1C #### [facility] [address] [place] [address] Dr. Rosemary Ames EGFR-NON AF CANADIAN >60 Normal >=60 [facility] Comment on above: Performed By: #### A 1C #### [facility] [address] [address] [address] Rosemary Ames Globulin (S) [Mass/Vol] 3.9 g/dL Normal [facility] Comment on above: Performed By: #### A 1C #### [facility] [address] [place] [address] Dr. Rosemary Ames Glucose [Mass/Vol] 190 mg/dL Critically high 74-106 [facility] Comment on above: Performed By: #### A 1C #### [facility] [address] [address] [address] Rosemary Ames Potassium [Moles/Vol] 3.7 mmol/L Normal 3.5-5.1 [facility] Comment on above: Performed By: #### A 1C #### [facility] [address] [place] [address] Dr. Rosemary Ames Protein [Mass/Vol] 8.0 g/dL Normal 6.4-8.2 [facility] Comment on above: Performed By: #### A 1C #### [facility] [address] [address] [address] Rosemary Ames Sodium [Moles/Vol] 134 mmol/L Critically low 136-145 [facility] Comment on above: Performed By: #### A 1C #### [facility] [address] [place] [address] Dr. Rosemary Ames Urea nitrogen [Mass/Vol] 9.0 mg/dL Normal 7.0-18.0 [facility] Comment on above: Performed By: #### A 1C #### [facility] [address] [place] [address] Dr. Rosemary Ames Urea nitrogen/Creatinine [Mass ratio] 11.5 mg/mg Normal [facility] Comment on above: Performed By: #### A 1C #### [facility] [id number] Rosemary Ames TROPONIN, HIGH SENSITIVITYon 03-13-2022 HSTROP <4.0 Normal 4.0-51.3 [facility] Comment on above: Result Comment: CUT- OFF POINTS HAVE BEEN ESTABLISHED BASED ON THE FOURTH UNIVERSAL DEFINITIONS OF MYOCARDIAL INFARCTION. THE UPPER REFERENCE LIMIT (URL) OF TROPONIN, DEFINED THE 99TH PERCENTILE OF cTnI DISTRIBUTION IN A REFERENCE POPULATION, HAS BEEN CONFIRMED THE DECISION THRESHOLD FOR WI DIAGNOSIS. Previously reported as: 3.9 On 03/13/2022 18:24 By DM9 Performed By: #### A 1C #### [facility] [address] [place] [address] Dr. Rosemary Ames TSHon 03-13-2022 TSH 0.440 uIU/mL Normal 0.358-3.740 [facility] Comment on above: Performed By: #### A 1C #### [facility] [address] [place] [address] Dr. Rosemary Ames XR CHEST 1 Von [...] TUAN LEWIS Date: 2022-03-13 18:59 Normal [facility] INSULINon 12-11-2021 Insulin 40.7 uIU/mL Critically high 2.6-24.9 [facility] Comment on above: Performed By: #### A 1C #### [facility] [address] [place] [address] [id number] [address] Rosemary Ames BNPon 12-10-2021 NT PRO BNP <11.1 Normal <=450.0 [facility] Comment on above: Performed By: #### T 7, LIPID, TSH, CMADM, BNP, CMP #### [facility] [address] [place] [address] Dr. Rosemary Ames CARDIAC RY ADMITon 022 CK [Catalytic activity/Vol] 80 U/L Normal 26-192 [facility] Comment on above: Performed By: #### T 7, LIPID, TSH, CMADM, BNP, CMP #### [facility] [address] [place] [address] Dr. Rosemary Ames CK.MB [Mass/Vol] 0.56 ng/mL Normal <=3.60 [facility] Comment on above: Performed By: #### T 7, LIPID, TSH, CMADM, BNP, CMP #### [facility] [address] [place] [address] Dr. Rosemary Ames HSTROP 5.3 pg/mL Normal 4.0-51.3 [facility] Comment on above: Result Comment: CUT- OFF POINTS HAVE BEEN ESTABLISHED BASED ON THE FOURTH UNIVERSAL DEFINITIONS OF MYOCARDIAL INFARCTION. THE UPPER REFERENCE LIMIT (URL) OF TROPONIN, DEFINED THE 99TH PERCENTILE OF cTnI DISTRIBUTION IN A REFERENCE POPULATION, HAS BEEN CONFIRMED THE DECISION THRESHOLD FOR WI DIAGNOSIS. Performed By: #### T 7, LIPID, TSH, CMADM, BNP, CMP #### [facility] [address] [place] [address] Dr. Rosemary Ames RADHA 26 ng/mL Normal 9-82 [facility] Comment on above: Performed By: #### T 7, LIPID, TSH, CMADM, BNP, CMP #### [facility] [address] [place] [address] Dr. Rosemary Ames CBC AUTO DIFFon 12-10-2021 BASO # 0.0 103/ul Normal 0.0-0.1 [facility] Comment on above: Performed By: #### E RUR #### [facility] [address] [place] [address] Dr. Rosemary Ames Basophils/100 WBC (Bld) 0.4 % Normal 0.2-2.0 [facility] Comment on above: Performed By: #### E RUR #### [facility] [address] [place] [address] Dr. Rosemary Ames EO # 0.1 103/ul Normal 0.0-0.7 [facility] Comment on above: Performed By: #### E RUR #### [facility] [address] [place] [address] Dr. Rosemary Ames Eosinophils/100 WBC (Bld) 1.0 % Normal 0.9-7.0 [facility] Comment on above: Performed By: #### E RUR #### [facility] [address] [place] [address] Dr. Rosemary Ames Erythrocyte distribution width (RBC) [Ratio] 13.7 % Normal 11.0-15.0 [facility] Comment on above: Performed By: #### E RUR #### [facility] [address] [place] [address] Dr. Rosemary Ames Hematocrit (Bld) [Volume fraction] 40.9 % Normal 36.0-48.0 [facility] Comment on above: Performed By: #### E RUR #### [facility] [address] [place] [address] Dr. Rosemary Ames Hemoglobin (Bld) [Mass/Vol] 13.0 g/dL Normal 12.0-16.0 [facility] Comment on above: Performed By: #### E RUR #### [facility] [address] [place] [address] Dr. Rosemary Ames IG # 0.03 10e3/ul Normal 0.00-0.03 [facility] Comment on above: Performed By: #### E RUR #### [facility] [address] [place] [address] Dr. Rosemary Ames IG % 0.4 % Normal 0.0-0.5 [facility] Comment on above: Performed By: #### E RUR #### [facility] [address] [place] [address] Dr. Rosemary Ames LYMPH # 2.4 103/ul Normal 1.2-3.8 [facility] Comment on above: Performed By: #### E RUR #### [facility] [address] [address] [address] Rosemary Ames Lymphocytes/100 WBC (Bld) 30.3 % Normal 20.5-60.0 [facility] Comment on above: Performed By: #### E RUR #### [facility] [address] [place] [address] Dr. Rosemary Ames MANUAL DIFF REQ NO Normal [facility] Comment on above: Performed By: #### E RUR #### [facility] [address] [place] [address] Dr. Rosemary Ames MCH (RBC) [Entitic mass] 25.8 pg Critically low 26.7-34.0 [facility] Comment on above: Performed By: #### E RUR #### [facility] [address] [place] [address] Dr. Rosemary Ames MCHC (RBC) [Mass/Vol] 31.8 g/dL Normal 29.9-35.2 [facility] Comment on above: Performed By: #### E RUR #### [facility] [address] [place] [address] Dr. Rosemary Ames MCV (RBC) [Entitic vol] 81.2 fL Normal 81.0-99.0 [facility] Comment on above: Performed By: #### E RUR #### [facility] [address] [place] [address] Dr. Rosemary Ames MONO # 0.5 103/ul Normal 0.3-0.8 [facility] Comment on above: Performed By: #### E RUR #### [facility] [address] [place] [address] Dr. Rosemary Ames Monocytes/100 WBC (Bld) 6.1 % Normal 1.7-12.0 [facility] Comment on above: Performed By: #### E RUR #### [facility] [address] [place] [address] Dr. Rosemary Ames NEUT # 5.0 103/ul Normal 1.4-6.5 [facility] Comment on above: Performed By: #### E RUR #### [facility] [address] [address] [address] Rosemary Ames Neutrophils/100 WBC (Bld) 61.8 % Normal 43.0-75.0 [facility] Comment on above: Performed By: #### E RUR #### [facility] [address] [address] [address] Rosemary Ames Platelet mean volume (Bld) [Entitic vol] 9.9 fL Normal 9.5-13.5 [facility] Comment on above: Performed By: #### E RUR #### [facility] [address] [address] [address] Rosemary Ames PLT 284 103/ul Normal 150-450 [facility] Comment on above: Performed By: #### E RUR #### [facility] [address] [place] [address] Dr. Rosemary Ames RBC 5.04 106/ul Normal 4.20-5.40 [facility] Comment on above: Performed By: #### E RUR #### [facility] [address] [place] [address] Dr. Rosemary Ames WBC 8.0 103/ul Normal 4.0-11.0 [facility] Comment on above: Performed By: #### E RUR #### [facility] [address] [place] [address] Dr. Rosemary Ames FREE THYROXINE INDEX T7on FTI 2.31 Normal 1.30-4.50 [facility] Comment on above: Performed By: #### T 7, LIPID, TSH, CMADM, BNP, CMP #### [facility] [address] [place] [address] Dr. Rosemary Ames T3U 30.0 % Normal 30.0-39.0 [facility] Comment on above: Performed By: #### T 7, LIPID, TSH, CMADM, BNP, CMP #### [facility] [address] [place] [address] Dr. Rosemary Ames T4 [Mass/Vol] 7.70 ug/dL Normal 4.80-13.90 [facility] Comment on above: Performed By: #### T 7, LIPID, TSH, CMADM, BNP, CMP #### [facility] [address] [address] [address] Rosemary Ames GLYCOHEMOGLOBIN A1Con 2021 ADA RECOMMENDATION SEE BELOW Normal [facility] Comment on above: Result Comment: ADA RECOMMENDED LIMIT 4.0 - 6.0 ADA THERAPEUTIC TARGET < 7.0 ACTION SUGGESTED > 7.0 Performed By: #### A 1C #### [facility] [address] [address] [address] Rosemary Ames Glucose [Mass/Vol] 243 mg/dL Normal [facility] Comment on above: Performed By: #### A 1C #### [facility] [address] [place] [address] Dr. Rosemary Ames HbA1c (Bld) [Mass fraction] 10.1 % Critically high 4.5-6.2 [facility] Comment on above: Performed By: #### A 1C #### [facility] [address] [place] [address] Dr. Rosemary Ames IRONon 12-10-2021 Iron [Mass/Vol] 29.0 ug/dL Critically low 50.0-170.0 The [facility] Comment on above: Performed By: #### A 1C #### [facility] [address] [place] [address] Dr. Rosemary Ames LIPID PROFILEon 12-10-2021 CHOL-HDL RATIO NORM SEE BELOW Normal [facility] Comment on above: Result Comment: 3.3 - 4.4 LOW RISK 4.4 - 7.1 AVERAGE RISK 7.1 - 11.0 MODERATE RISK >11.0 HIGH RISK Performed By: #### T 7, LIPID, TSH, CMADM, BNP, CMP #### [facility] [address] [place] [address] Dr. Rosemary Ames Cholesterol [Mass/Vol] 184 mg/dL Normal <=200 [facility] Comment on above: Performed By: #### T 7, LIPID, TSH, CMADM, BNP, CMP #### [facility] [address] [place] [address] Dr. Rosemary Ames Cholesterol in HDL [Mass/Vol] 44 mg/dL Normal 40-60 [facility] Comment on above: Performed By: #### T 7, LIPID, TSH, CMADM, BNP, CMP #### [facility] [address] [address] [address] Rosemary Ames Cholesterol in LDL [Mass/Vol] 94.6 mg/dL Normal [facility] Comment on above: Performed By: #### T 7, LIPID, TSH, CMADM, BNP, CMP #### [facility] [address] [address] [address] Rosemary Ames Cholesterol.total/Ch olesterol in HDL [Mass ratio] 4.2 {ratio} Normal [facility] Comment on above: Performed By: #### T 7, LIPID, TSH, CMADM, BNP, CMP #### [facility] [address] [address] [address] Rosemary Ames HDL NORMAL > or = 60 mg/dl - LO W CARDIOVASCULAR RISK <40 mg/dl - HIGH CARDIOVASCULAR RISK Normal [facility] Comment on above: Performed By: #### T 7, LIPID, TSH, CMADM, BNP, CMP #### [facility] [address] [address] [address] Rosemary Ames LDL CALC NORMAL SEE BELOW Normal [facility] Comment on above: Result Comment: <100 mg/dl OPTIMAL 100 - 129 mg/dl NEAR OR ABOVE OPTIMAL 130 - 159 mg/dl BORDERLINE HIGH 160 - 189 mg/dl HIGH >190 mg/dl VERY HIGH Performed By: #### T 7, LIPID, TSH, CMADM, BNP, CMP #### [facility] [address] [address] [address] Rosemary Ames Triglyceride [Mass/Vol] 227 mg/dL Critically high <=150 [facility] Comment on above: Performed By: #### T 7, LIPID, TSH, CMADM, BNP, CMP #### [facility] [address] [address] [address] Rosemary Ames VLDL CALC 45.4 mg/dL Normal [facility] Comment on above: Performed By: #### T 7, LIPID, TSH, CMADM, BNP, CMP #### [facility] [address] [place] [address] Dr. Rosemary Ames PROF 14(COMP METB)on 022 Albumin [Mass/Vol] 4.1 g/dL Normal 3.4-5.0 [facility] Comment on above: Performed By: #### T 7, LIPID, TSH, CMADM, BNP, CMP #### [facility] [address] [place] [address] Dr. Rosemary Ames Albumin/Globulin [Mass ratio] 1.1 {ratio} Normal [facility] Comment on above: Performed By: #### T 7, LIPID, TSH, CMADM, BNP, CMP #### [facility] [address] [place] [address] Dr. Rosemary Ames ALP [Catalytic activity/Vol] 83 U/L Normal 46-116 [facility] Comment on above: Performed By: #### T 7, LIPID, TSH, CMADM, BNP, CMP #### [facility] [address] [place] [address] Dr. Rosemary Ames ALT [Catalytic activity/Vol] 166 U/L Critically high 14-59 [facility] Comment on above: Performed By: #### T 7, LIPID, TSH, CMADM, BNP, CMP #### [facility] [address] [place] [address] Dr. Rosemary Ames Anion gap [Moles/Vol] 13.9 mmol/L Normal [facility] Comment on above: Performed By: #### T 7, LIPID, TSH, CMADM, BNP, CMP #### [facility] [address] [place] [address] Dr. Rosemary Ames AST [Catalytic activity/Vol] 97 U/L Critically high 15-37 [facility] Comment on above: Performed By: #### T 7, LIPID, TSH, CMADM, BNP, CMP #### [facility] [address] [place] [address] Dr. Rosemary Ames Bilirubin [Mass/Vol] 0.7 mg/dL Normal 0.2-1.0 [facility] Comment on above: Performed By: #### T 7, LIPID, TSH, CMADM, BNP, CMP #### [facility] [address] [address] [address] Rosemary Ames Calcium [Mass/Vol] 9.2 mg/dL Normal 8.5-10.1 [facility] Comment on above: Performed By: #### T 7, LIPID, TSH, CMADM, BNP, CMP #### [facility] [address] [place] [address] Dr. Rosemary Ames Chloride [Moles/Vol] 101 mmol/L Normal 98-107 [facility] Comment on above: Performed By: #### T 7, LIPID, TSH, CMADM, BNP, CMP #### [facility] [address] [place] [address] Dr. Rosemary Ames CO2 [Moles/Vol] 27.5 mmol/L Normal 21.0-32.0 [facility] Comment on above: Performed By: #### T 7, LIPID, TSH, CMADM, BNP, CMP #### [facility] [address] [place] [address] Dr. Rosemary Ames Creatinine [Mass/Vol] 0.65 mg/dL Normal 0.55-1.02 [facility] Comment on above: Performed By: #### T 7, LIPID, TSH, CMADM, BNP, CMP #### [facility] [address] [place] [address] Dr. Rosemary Ames EGFR-AF CANADIAN >60 Normal >=60 The [facility] Comment on above: Performed By: #### T 7, LIPID, TSH, CMADM, BNP, CMP #### [facility] [address] [place] [address] Dr. Rosemary Ames EGFR-NON AF CANADIAN >60 Normal >=60 [facility] Comment on above: Performed By: #### T 7, LIPID, TSH, CMADM, BNP, CMP #### [facility] [address] [place] [address] Dr. Rosemary Ames Globulin (S) [Mass/Vol] 3.8 g/dL Normal [facility] Comment on above: Performed By: #### T 7, LIPID, TSH, CMADM, BNP, CMP #### [facility] [address] [address] [address] Rosemary Ames Glucose [Mass/Vol] 299 mg/dL Critically high 74-106 [facility] Comment on above: Performed By: #### T 7, LIPID, TSH, CMADM, BNP, CMP #### [facility] [address] [place] [address] Dr. Rosemary Ames Potassium [Moles/Vol] 4.4 mmol/L Normal 3.5-5.1 [facility] Comment on above: Performed By: #### T 7, LIPID, TSH, CMADM, BNP, CMP #### [facility] [address] [place] [address] Dr. Rosemary Ames Protein [Mass/Vol] 7.9 g/dL Normal 6.4-8.2 [facility] Comment on above: Performed By: #### T 7, LIPID, TSH, CMADM, BNP, CMP #### [facility] [address] [place] [address] Dr. Rosemary Ames Sodium [Moles/Vol] 138 mmol/L Normal 136-145 [facility] Comment on above: Performed By: #### T 7, LIPID, TSH, CMADM, BNP, CMP #### [facility] [address] [place] [address] Dr. Rosemary Ames Urea nitrogen [Mass/Vol] 8.0 mg/dL Normal 7.0-18.0 [facility] Comment on above: Performed By: #### T 7, LIPID, TSH, CMADM, BNP, CMP #### [facility] [address] [place] [address] Dr. Rosemary Ames Urea nitrogen/Creatinine [Mass ratio] 12.3 mg/mg Normal [facility] Comment on above: Performed By: #### T 7, LIPID, TSH, CMADM, BNP, CMP #### [facility] [address] [place] [address] Dr. Rosemary Ames TSHon 12-10-2021 TSH 0.921 uIU/mL Normal 0.358-3.740 [facility] Comment on above: Performed By: #### T 7, LIPID, TSH, CMADM, BNP, CMP #### [facility] [address] [address] [address] Rosemary Ames [facility] DI[facility]NOSTIC 3D JESICA CA Don 11-29-2021 MG [facility] DIAGNOSTIC 3D JESICA CAD Patient: TESS ASHLEY Exam Date: 11/29/2021 : 1995 Gender:F Ordering : DR CHAMP BELL . Admission #: [id number] Family : Order #: [id number] CLICK HERE TO VIEW EXAM RADIOLOGY REPORT [...] breast cancer at age 41. LOCATION: [facility] BREAST COMPOSITION: Heterogeneously dense,which may obscure small [...] M.D. on 11/29/2021 at 09:59 Normal [facility] US BREAST RIGHT LIMITEDon US BREAST RIGHT LIMITED Patient: TESS ASHLEY. Exam Date: 11/29/2021 : 1995 Gender:F Ordering : DR CHAMP BELL . Admission #: [id number] Family : Order #: [id number] CLICK HERE TO VIEW EXAM RADIOLOGY REPORT [...] breast cancer at age 41. LOCATION: [facility] BREAST COMPOSITION: Heterogeneously dense,which may obscure small [...] Beatty M.D. on 11/29/2021 at 09:59 Normal [facility] MRI BRAIN WO CONon MRI BRAIN [...] by: SEBLE BEATTY Date: 2021-09-13 12:13 Normal [facility] Coding Summary.on 08-29-2021 Coding Summary. CD:[id number] G h0bWw+PGhlYWQ+AO6LTGP kH16crREqjE8OZ8jXWF8R KRUWLTRPWZ6EYU8mrGH7F RjdF2EycwIp TbluiTLvVQ94MSr3KHD8w VnlBYbqfU8ssZFpW7a7Be BqSM72xM48OAryLUSwVtX 3LjZpbjsgbWFy D7wrBfVmdDCuScd+PHRhY mxlIHdpZHRoPScxMDAlJy NujXfpYE7qUk2lPUDgCUM vbGxhcHNlOiBj k6lkMIPaEXndTP4taOrwV 3IzcBT7AAStl4b1Fz04fC I+DUHlACS5xTukIFect79 5SuHik2wjXCC8 fUAgDBeqVLF4X82eq7G7R OFaSHEkVXR9lIX8tQ3pyI hgevxqX8VeySYwGaU1ZEK 8pAVrcS6jmJpi grvarR1bXgu+J14VFS0JN OJIJL9XOmj8Q5FyFxdftT I+GM72YUCxJN02aVAlcTQ pl2dtjWe8XrSc VGSgTDN4qOavXWfsr8IzZ CCfT46asIIky0N1AFIbvS udxJIrUjWitHE0oT5eSSu xxmtkk2uwfbus Ejbuu8iyns37aP16Q80iS XepEAMeHLT3CCCpXTSdmU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 + Plan note Extrac [place] from: Title:ED Note Author:Melina Tyler Kacey Date :08/24/21 Cervical strain (S16.1XXA: S train [...] w/o Contrast CT Spine Cervical w[facility] Diagnosis Thyroid disorder- Primary Unspecified disorder of thyroid Hair loss Unspecified alopecia [facility] Diagnosis Type 2 diabetes mellitus with hyperglycemia, unspecified whether half-way insulin use (HCC)- Primary Thyroid disorder Unspecified disorder of thyroid Hair loss Unspecified alopecia [facility] Diagnosis Bleeding in early Unspecified hemorrhage in early , unspecified as to episode of care Follow-up exam Unspecified follow-up examination [facility] Type 2 diabetes mellitus in , second trimester- Primary Insulin pump in place Insulin pump status HTN in , chronic [facility] Diagnosis Type 2 diabetes mellitus in , second trimester- Primary Pre-existing type 2 diabetes mellitus during in first trimester [facility] Diagnosis Type 2 diabetes mellitus in , second trimester- Primary [facility] Diagnosis Type 2 diabetes mellitus in , second trimester- Primary [facility] Diagnosis Type 2 diabetes mellitus in , second trimester- Primary [facility] Diagnosis Type 2 diabetes mellitus in , second trimester- Primary [facility] Narrative No data available for this section [facility] filedocumented in this encounter [facility] filedocumented in this encounter [facility] on filedocumented in this encounter [facility] on filedocumented in this encounter [facility] on filedocumented in this encounter [facility] on filedocumented in this encounter [facility] No data available for this section [facility])* Consultation (Routine) - Pending Review Specialty Diagnoses / Procedures Referred By Contac t Referred To Contact Maternal and Medicine Diagnoses Type 2 diabetes mellitus in , second trimester Insulin pump in place Opal Heath APRN-CNP [address] [place] [address] Leana Burr MD [address], [place] [address] Referral ID Status Reason Start Date Expiration Date Visits Requested Visits Authorized [id number] Pending Review Specialty Services Required 05/07/2023 05/06/[address] [facility] (narrative)* Consultation (Routine) - Pending Review Specialty Diagnoses / Procedures Referred By Contac t Referred To Contact Endocrinology Diagnoses Type 2 diabetes mellitus in , second trimester Mary Guidry, GALLO-JHONATAN [address], [address] [place] [address] Leana Burr MD [address], [address] [address] Referral ID Status Reason Start Date Expiration Date Visits Requested Visits Authorized [id number] Pending Review Specialty Services Required 05/20/2023 05/19/2024 1 1 [facility] for visit Narrative* Consultation (Routine) - Pending Review Specialty Diagnoses / Procedures Referred By Juan Antonio montemayor Referred To Contact Endocrinology Diagnoses Type 2 diabetes mellitus in , second trimester Mary Guidry APRN-CNM [address], [address] [place] [address] Leana Burr MD [address], [address] [address] Referral ID Status Reason Start Date Expiration Date Visits Requested Visits Authorized [id number] Pending Review Specialty Services Required 05/20/2023 05/19/[address] [facility] Summary Purpose Family History No Family History Records FoundNo Family History Records FoundNo Family History Records FoundNo Family History Records FoundNo Family History Records FoundNo Family History Records FoundNo Family History Records Found Advance Directives No Advanced Directives Records FoundDocuments on File Type Date Recorded Patient Tobacco Sprayer Expl anation Advance Directives and Livin g Will 05/02/2021 12:00 AM Reason for Referral Specialty Diagnoses / Procedures Referred By Contac t Referred To Contact Endocrinology Diagnoses Thyroid disorder Hair loss Champ Bell MD [address] [facility] [place] [address] [place] [address] Gregorio Floyd MD [address] [place] [address] Referral ID Status Reason Start Date Expiration Date Visits Requested Visits Authorized [id number] Authorized Specialty Services Required/Pat ient's Best Interest 05/04/2021 05/04/2022 1 1 Specialty Diagnoses / Procedures Referred By Juan Antonio t Referred To Contact Maternal and Medicine Diagnoses Type 2 diabetes mellitus in , second trimester Procedures US [facility] with or without consult Opal Heath, COUNTER INTELLIGENCE-STATISTICAL MODELER [address] [place] [address] [facility] Maternal Med [address] [place] [address] Referral ID Status Reason Start Date Expiration Date V isits Requested Visits Authorized [id number] Pending Review 05/08/2023 05/07/2024 1 1 Additional Source Comments INFORMATION SOURCE (unrecogn ized section and content) DATE CREATED AUTHOR 02/06/2021 [facility] DATE CREATED AUTHOR AUTHOR'S ORGANIZ ATION 08/27/2021 [facility] DATE CREATED AUTHOR AUTHOR'S ORGANIZ ATION 08/30/2021 [facility] DATE CREATED AUTHOR AUTHOR'S ORGANIZ ATION 06/02/2022 [facility] DATE CREATED AUTHOR AUTHOR'S ORGANIZ ATION 07/24/2023 [facility] DATE CREATED AUTHOR AUTHOR'S ORGANIZ ATION 07/31/2023 [facility] DATE CREATED AUTHOR AUTHOR'S ORGANIZ ATION 08/05/2023 [facility] EPIC Care Teams (unrecognized sec tion and content) Business Analytics Director Relationship Specialty Start Date End Date Champ Bell MD [address] [place] [address] PCP - General Family Medicine 05/02/21 Business Analytics Director Relationship Specialty Start Date End Date Champ Bell MD [address] [place] [address] PCP - General Family Medicine 05/02/21 Business Analytics Director Relationship Specialty Start Date End Date Champ Bell MD [address] [place] [address] PCP - General 03/13/23 Reason for Visit (unrecogniz ed section and content) Reason Comments Thyroid Problem Specialty Diagnoses / Procedures Referred By Contac t Referred To Contact Endocrinology Diagnoses Thyroid disorder Hair loss Champ Bell MD [address] [place] [address] Gregorio Floyd MD [address] [place] [address] Referral ID Status Reason Start Date Expiration Date V isits Requested Visits Authorized [id number] Closed Specialty Services Required/Deanna ent's Best Interest 05/04/2021 05/04/2022 1 1 Reason Comments ER Follow-up Reason Comments t2dm Reason Comments Diabetes Specialty Diagnoses / Procedures Referred By Contac t Referred To Contact Maternal and Medicine Diagnoses Pre-existing type 2 diabetes mellitus during in first trimester Mario Conway R, DO [address] [place] [address] [facility] Maternal Med [address] [place] [address] Referral ID Status Reason Start Date Expiration Date Visits Requested Visits Authorized [id number] Pending Review Specialty Services Required 04/15/2023 04/14/2024 [...] BE BASED ON THE PRIMARY CLINICAL RECORDS. [email or web address] [facility]. provides no warranty or guarantee of the accuracy or completeness of information in this document.
--- NOTE | 2023-08-06 14:07 | US_ITS ---
[address] [address] Patient Name: TESS CALVERT MRN: [facility]:[id number] date: 1995 Sex: F Assigned Patient Location: [facility] Current Patient Location: [facility] Accession/Order Number: [id number] Exam Date: 08/06/2023 14:10 Report Date: 08/06/2023 14:35 At the request of: PORSHA MOTA Procedure: US OB BPP w non-stress EXAMINATION: US OB BPP w non-stress HISTORY: Decreased movement COMPARISON: No relevant comparison available. TECHNIQUE: Ultrasound biophysical profile was performed in the radiology department. FINDINGS: BREATHING MOVEMENTS: 2.0 GROSS BODY MOVEMENTS: 2.0 TONE: 2.0 QUALITATIVE AMNIOTIC FLUID VOLUME: 2.0 PRESENTATION: CEPHALIC HEART RATE: 154.3 bpm H.B./min AMNIOTIC FLUID VOLUME: 15.8 cm cm GESTATIONAL AGE: 28 weeks 1 days CONCLUSION: Total biophysical profile score: 8.0 Electronically authenticated by: MAY PILLAI Date: 08/06/2023 14:35
[2023-08-06 14:35] VITALS: BP 120/57; PULSE 103
== END 2023-08-06 15:30 | disposition home or self-care (01) ==
LOC: US 07:49 → FBC 13:54
PROVIDERS: PCP Family Medicine; Visit Provider Obstetrics & Gynecology
DX: O36.8130 Decreased fetal movements, third trimester, not applicable or unspecified (principal); Z3A.28 28 weeks gestation of pregnancy
CPT/HCPCS: 76818

== ENCOUNTER 2023-08-12 07:25 | Outpatient (OUT) | payer OTHER, SELFPAY ==
--- OUTSIDE RECORDS SUMMARY | 2023-08-12 07:28 | XMS_ITS | CCD ---
Author Organization [facility] Care Team Providers Care Bonsai Culturist Name Role Phone Champ Bell MD Primary Care Provider Champ Bell Primary Care Physician [phone] Champ Bell MD Primary Care Provider CHAMP BELL Admitting Unavailable CHAMP BLEL Primary Care Unavailable CHAMP BELL Referring Unavailable [...] DR OAKES Admitting Unavailable HOY ., DR OAEKS Consulting Unavailable HOY ., DR OAKES Primary [...] Primary Care Unavailable SYLVESTER PRINGLE Consulting Unavailable HARMANCHELVIS .MARINA Consulting Unavailchad e HAY ., DR MARTINEZ Attending Unavailable [...] Unavailable HOY ., DR OAKES Admitting Unavailable [place], DR MAY Silverman Consulting Unavailable CRYSTAL PENG [...] Unavailable RODEMAN, LEANA Attending Unavailable MARY GUIDRY Referring Unavailable RODEMAN, LEANA Attending Unavailable RODEMAN, [...] ALEX Attending Unavailable ZORAIDA, MARIO Attending Unavailable Medications Current Medications Medication Drug Class(es) Dates Sig (Normalized) Sig (Original) acetaminophen 325 mg / HYDROcodone bitartrate 5 mg oral tablet (1 source) Opioid Agonist Start: 07-03-2020 [place] 325 mg-5 mg oral tablet 1 tab(s), [...] Start: 08-27-2021 take 2 tablets by mo [facility] twice daily at mealtime metFORMIN (GLUCOPHAGE-XR) 500 [...] 06-22 C PEPTIDE 5.70 ng/mL High 0.81-3.85 [facility] Comment on above: Result Comment: NOTE Test Performed By: [facility] [address] [place] [address] Graduate Civil Engineer: Fina Cruz IIIIA #[id number] Performed By: #### 2 345-7 #### [facility] ([id number]) [address] [place] [address], [address] [place] [address] GLUCOSEon 06-23-2023 Glucose [Mass/Vol] 168 mg/dL High 65-99 [facility] Comment on above: Performed By: #### 2 345-7 #### [facility] ([id number]) [address] [place] [address], [address] [place] [address] Glutamate decarboxylase 65 A b IA Qn (S)on 06-23-2023 LATOYA ANTIBODY <5.0 Normal 0.0-5.0 [facility] Comment on above: Result Comment: NOTE INTERPRETIVE INFORMATION: Glutamic Acid Decarboxylase Antibody A value greater than 5.0 IU/mL is considered positive for Glutamic Acid Decarboxylase Antibody (LATOYA Ab). This assay is intended for the semi-quantitative determination of the LATOYA Ab in human serum. Results should be interpreted within the context of clinical symptoms. Performed By: [facility] [address] [place] [id number] Graduate Civil Engineer: Mark Fitzpatrick MD, PhD CLIA Number: [id number] Performed By: #### 2 345-7 #### [facility] ([id number]) [address] [place] [address], [facility] [address] [place] [address] Reference Lab Test IDon 06-08 Insulinoma Ab 2 See Below Normal [facility] Comment on above: Result Comment: NOTE [...] Clinical correlation is required. Test Performed By: [facility] [address] [place] [address] Graduate Civil Engineer: Vaibhav Julian III, M.D. CLIA #[id number] Performed By: #### 2 345-7 #### [facility] ([id number]) [address] [facility], [address] [place] [address] CBC without diffon Hematocrit (Bld) [Volume fraction] 40.1 % [facility] Hemoglobin (Bld) [Mass/Vol] 12.8 g/dL [facility] Platelets (Bld) [#/Vol] 305 10*3/uL [facility] Rbc Mcv (Fl) By Automated Count 82.2 [facility] Free Cell DNAon 2023 Free Cell Dna no call [facility] HIV 1&2 AB/AG Screen (P24 AG )on 04-01-2023 HIV 1&2 AB/AG Negative [facility] Hemoglobin A1con 04-01-2023 HbA1c (Bld) [Mass fraction] 7.9 % Abnormal 4.0 - 6.0 % [facility] Interpretation and review of laboratory results Abnormal [facility] Hepatitis B surface antigeno n 04-01-2023 Hepatitis B Surface Antigen Negative [facility] No Panel Informationon 04-01 [facility] Rubella IGG immune statuson 04-01-2023 Rubella immune IgG immune [facility] Syphilis Total(Unknown Syphi lis Status)on 04-01-2023 Syphilis Non-Reactive [facility] TSHon 04-01-2023 Thyroid Stimulating (3Rd Generation) Hormone/ Tsh 1.051 [facility] TSH Qn 1.05 m[IU]/L [facility] Type and screenon 04-01-2023 Abo/Rh(D) Positive [facility] Urine Cultureon 04-01-2023 Bacteria identified Cx Nom (U) no growth [facility] Covid-19 PCR (CVDTBH)on 05-09 SARS-CoV-2 (COVID-19) RNA EZEKIEL+probe Ql (Unsp spec) Not detected Normal NOT DETECTED [facility] Comment on above: Result Comment: This test is not yet approved or cleared by the [place] FDA. When there are no FDA-approved or cleared tests available, and other criteria are met, FDA can make tests available under an emergency access mechanism called an Emergency Use Authorization (EUA). The EUA for this test is supported by the [place] Engineer of Health and Human Service's (HHS's) declaration [...] SARS-CoV-2. Performed By: #### C VDTBH #### [facility] [address] [place] [address] Dr. Rosemary Ames GROUP A STREP CULTUREon 05-09 S. pyogenes Ag Ql (Unsp spec) Culture Observations: NEGATIVE FOR GROUP A STREPTOCOCCUS. Normal [facility] Comment on above: Performed By: #### T 7, LIPID, TSH, CMADM, BNP, CMP #### [facility] [address] [place] [address] Dr. Rosemary Ames INFLUENZA A AND B AGon 05-31 INFLUANEGH SEE BELOW Normal [facility] Comment on above: Result Comment: Nega tive for Flu A protein angiten. Infection due to Flu A cannot be ruled out. Flu A angiten in the sample may be below the detection limit of the test. Performed By: #### I NFLUAB #### [facility] [address] [place] [address] Dr. Rosemary Ames INFLUBNEGH SEE BELOW Normal [facility] Comment on above: Result Comment: Nega tive for Flu B protein antigen. Infection due to Flu B cannot be ruled out. Flu B antigen in the sample may be below the detection limit of the test. Performed By: #### I NFLUAB #### [facility] [address] [place] [address] Dr. Rosemary Ames INFLUENZA A AG Negative Normal NEGATIVE SEE COMMENT [facility] Comment on above: Performed By: #### I NFLUAB #### [facility] [address] [place] [address] Dr. Rosemary Ames INFLUENZA B AG Negative Normal NEGATIVE SEE COMMENT [facility] Comment on above: Performed By: #### I NFLUAB #### [facility] [address] [place] [address] Dr. Rosemary Ames STREPT SCREENon 05-31-2022 STREP SCREEN A Negative Normal NEGATIVE [facility] Comment on above: Performed By: #### E RUR #### [facility] [address] [place] [address] Dr. Rosemary Ames SYMPTOMATIC COVID-19 ANTIGEN on 05-31-2022 EUA Statement SEE BELOW Normal [facility] Comment on above: Result Comment: This test [...] 7, LIPID, TSH, CMADM, BNP, CMP #### [facility] [address] [place] [address] Dr. Rosemary Ames SARS-CoV-2 (COVID-19) RNA EZEKIEL+probe Ql (Unsp spec) Negative Normal NEGATIVE [facility] Comment on above: Performed By: #### T 7, LIPID, TSH, CMADM, BNP, CMP #### [facility] [address] [place], [place] [id number] Dr. Rosemary Ames ECHOCARDIO M/2D COMPLETEon 0 04-10-2022 ECHOCARDIO M/2D COMPLETE Patient: TESS ASHLEY Exam Date: 04/10/2022 : 1995 Gender:F Ordering : DR CHAMP BELL . Admission #: [id number] Family : Order #: [id number] CLICK HERE TO VIEW EXAM ECHOCARDIOGRAM REPORT [...] M.D. on 04/10/2022 at 17:40 Normal [facility] CBC AUTO DIFFon 03-13-2022 BASO # 0.0 103/ul Normal 0.0-0.1 [facility] Comment on above: Performed By: #### A 1C #### [facility] [address] [place] [address] Dr. Rosemary Ames Basophils/100 WBC (Bld) 0.3 % Normal 0.2-2.0 [facility] Comment on above: Performed By: #### A 1C #### [facility] [address] [place] [address] Dr. Rosemary Ames EO # 0.0 103/ul Normal 0.0-0.7 [facility] Comment on above: Performed By: #### A 1C #### [facility] [address] [place] [address] Dr. Rosemary Ames Eosinophils/100 WBC (Bld) 0.5 % Critically low 0.9-7.0 [facility] Comment on above: Performed By: #### A 1C #### [facility] [address] [place] [address] Dr. Rosemary Ames Erythrocyte distribution width (RBC) [Ratio] 14.5 % Normal 11.0-15.0 [facility] Comment on above: Performed By: #### A 1C #### [facility] [address] [address] [address] Rosemary Ames Hematocrit (Bld) [Volume fraction] 39.7 % Normal 36.0-48.0 [facility] Comment on above: Performed By: #### A 1C #### [facility] [address] [address] [address] Rosemary Ames Hemoglobin (Bld) [Mass/Vol] 12.9 g/dL Normal 12.0-16.0 [facility] Comment on above: Performed By: #### A 1C #### [facility] [address] [place] [address] Dr. Rosemary Ames IG # 0.03 10e3/ul Normal 0.00-0.03 [facility] Comment on above: Performed By: #### A 1C #### [facility] [address] [place] [address] Dr. Rosemary Ames IG % 0.4 % Normal 0.0-0.5 [facility] Comment on above: Performed By: #### A 1C #### [facility] [address] [place] [address] Dr. Rosemary Ames LYMPH # 0.5 103/ul Critically low 1.2-3.8 [facility] Comment on above: Performed By: #### A 1C #### [facility] [address] [place] [address] Dr. Rosemary Ames Lymphocytes/100 WBC (Bld) 6.6 % Critically low 20.5-60.0 [facility] Comment on above: Performed By: #### A 1C #### [facility] [address] [place] [address] Dr. Rosemary Ames MANUAL DIFF REQ NO Normal [facility] Comment on above: Performed By: #### A 1C #### [facility] [address] [place] [address] Dr. Rosemary Ames MCH (RBC) [Entitic mass] 25.1 pg Critically low 26.7-34.0 [facility] Comment on above: Performed By: #### A 1C #### [facility] [address] [address] [address] Rosemary Ames MCHC (RBC) [Mass/Vol] 32.5 g/dL Normal 29.9-35.2 [facility] Comment on above: Performed By: #### A 1C #### [facility] [address] [place] [address] Dr. Rosemary Ames MCV (RBC) [Entitic vol] 77.2 fL Critically low 81.0-99.0 [facility] Comment on above: Performed By: #### A 1C #### [facility] [address] [address] [address] Rosemary Ames MONO # 0.7 103/ul Normal 0.3-0.8 [facility] Comment on above: Performed By: #### A 1C #### [facility] [address] [place] [address] Dr. Rosemary Ames Monocytes/100 WBC (Bld) 9.3 % Normal 1.7-12.0 [facility] Comment on above: Performed By: #### A 1C #### [facility] [address] [place] [address] Dr. Rosemary Ames NEUT # 6.2 103/ul Normal 1.4-6.5 [facility] Comment on above: Performed By: #### A 1C #### [facility] [address] [place] [address] Dr. Rosemary Ames Neutrophils/100 WBC (Bld) 82.9 % Critically high 43.0-75.0 [facility] Comment on above: Performed By: #### A 1C #### [facility] [address] [place] [address] Dr. Rosemary Ames Platelet mean volume (Bld) [Entitic vol] 9.8 fL Normal 9.5-13.5 [facility] Comment on above: Performed By: #### A 1C #### [facility] [address] [place] [address] Dr. Rosemary Ames PLT 246 103/ul Normal 150-450 [facility] Comment on above: Performed By: #### A 1C #### [facility] [address] [place] [address] Dr. Rosemary Ames RBC 5.14 106/ul Normal 4.20-5.40 [facility] Comment on above: Performed By: #### A 1C #### [facility] [address] [place] [address] Dr. Rosemary Ames WBC 7.4 103/ul Normal 4.0-11.0 [facility] Comment on above: Performed By: #### A 1C #### [facility] [address] [place] [address] Dr. Rosemary Ames Covid-19 PCR ([facility])on SARS-CoV-2 (COVID-19) RNA EZEKIEL+probe Ql (Unsp spec) Not detected Normal NOT DETECTED [facility] Comment on above: Result [...] for this test is supported by the [place] of Health and Human Service's declaration that [...] used). Performed By: #### A 1C #### [facility] [address] [place] [address] Dr. Rosemary Ames D-DIMERon 03-13-2022 D-DIMER 0.26 mg/L FEU Normal <=0.59 [facility] Comment on above: Performed By: #### T 7, LIPID, TSH, CMADM, BNP, CMP #### [facility] [address] [place] [address] Dr. Rosemary Ames D-DIMER COMMENTS SEE BELOW Normal [facility] Comment on above: Result Comment: Incr [...] 7, LIPID, TSH, CMADM, BNP, CMP #### [facility] [address] [place] [address] Dr. Rosemary Ames ER URINE PROFILEon 3 Bilirubin Ql (U) Negative Normal NEGATIVE [facility] Comment on above: Performed By: #### E RUR #### [facility] [address] [place] [address] Dr. Rosemary Ames Clarity (U) CLEAR Normal CLEAR [facility] Comment on above: Performed By: #### E RUR #### [facility] [address] [place] [address] Dr. Rosemary Ames Color (U) LT. YELLOW Normal YELLOW [facility] Comment on above: Performed By: #### E RUR #### [facility] [address] [place] [address] Dr. Rosemary MARTIN A micrscopic examination will be performed if indicated. Normal [facility] Comment on above: Performed By: #### E RUR #### [facility] [address] [place] [address] Dr. Rosemary Ames Glucose Ql (U) Negative Normal NEGATIVE [facility] Comment on above: Performed By: #### E RUR #### [facility] [address] [place] [address] Dr. Rosemary Ames Hemoglobin Ql (U) Negative Normal NEGATIVE [facility] Comment on above: Performed By: #### E RUR #### [facility] [address] [place] [address] Dr. Rosemary Ames Ketones Ql (U) Negative Normal NEGATIVE [facility] Comment on above: Performed By: #### E RUR #### [facility] [address] [place] [address] Dr. Rosemary Ames LEUKOCYTES Negative Normal NEGATIVE [facility] Comment on above: Performed By: #### E RUR #### [facility] [address] [place] [address] Dr. Rosemary Ames Nitrite Ql (U) Negative Normal NEGATIVE [facility] Comment on above: Performed By: #### E RUR #### [facility] [address] [place] [address] Dr. Rosemary Ames pH (U) 6.0 [pH] Normal 5-9 [facility] Comment on above: Performed By: #### E RUR #### [facility] [address] [place] [address] Dr. Rosemary Ames SPEC GRAVITY 1.015 Normal 1.005-<=1.025 [facility] Comment on above: Performed By: #### E RUR #### [facility] [address] [place] [address] Dr. Rosemary Ames UA PROTEIN Negative Normal NEGATIVE/ TRACE [facility] Comment on above: Performed By: #### E RUR #### [facility] [address] [place] [address] Dr. Rosemary Ames UR MICRO IND NOT INDICATED Normal [facility] Comment on above: Performed By: #### E RUR #### [facility] [address] [place] [address] Dr. Rosemary Ames Urobilinogen Qn (U) 0.2 {Vincent'U}/dL Normal 0.2 - 1. 0 [facility] Comment on above: Performed By: #### E RUR #### [facility] [address] [place] [address] Dr. Rosemary Ames INFLUENZA A AND B AGon 03-13 INFLUANEGH SEE BELOW Normal [facility] Comment on above: Result Comment: Nega tive for Flu A protein angiten. Infection due to Flu A cannot be ruled out. Flu A angiten in the sample may be below the detection limit of the test. Performed By: #### E RUR #### [facility] [address] [place] [address] Dr. Rosemary Ames [facility] SEE BELOW Normal [facility] Comment on above: Result Comment: Nega tive for Flu B protein antigen. Infection due to Flu B cannot be ruled out. Flu B antigen in the sample may be below the detection limit of the test. Performed By: #### E RUR #### [facility] [address] [place] [address] Dr. Rosemary Ames INFLUENZA A AG Negative Normal NEGATIVE SEE COMMENT [facility] Comment on above: Performed By: #### E RUR #### [facility] [address] [place] [address] Dr. Rosemary Ames INFLUENZA B AG Negative Normal NEGATIVE SEE COMMENT [facility] Comment on above: Performed By: #### E RUR #### [facility] [address] [place] [address] Dr. Rosemary Ames LACTATE/LACTIC ACIDon 2022 Lactate [Moles/Vol] 2.0 mmol/L Critically high 0.4-1.9 [facility] Comment on above: Performed By: #### A 1C #### [facility] [address] [place] [address] Dr. Rosemary Ames LIPASEon 03-13-2022 Lipase [Catalytic activity/Vol] 79.0 U/L Normal 73.0-393.0 [facility] Comment on above: Performed By: #### A 1C #### [facility] [address] [place] [address] Dr. Rosemary Ames PREG HCG QUALon 03-13-2022 , QUAL Negative Normal NEGATIVE [facility] Comment on above: Performed By: #### A 1C #### [facility] [address] [place] [address] Dr. Rosemary Ames PROF 14(COMP METB)on 023 Albumin [Mass/Vol] 4.1 g/dL Normal 3.4-5.[address] [facility] Comment on above: Performed By: #### A 1C #### [facility] [address] [place] [address] Dr. Rosemary Ames Albumin/Globulin [Mass ratio] 1.1 {ratio} Normal [facility] Comment on above: Performed By: #### A 1C #### [facility] [address] [place] [address] Dr. Rosemary Ames ALP [Catalytic activity/Vol] 77 U/L Normal 46-116 [facility] Comment on above: Performed By: #### A 1C #### [facility] [address] [place] [address] Dr. Rosemary Ames ALT [Catalytic activity/Vol] 149 U/L Critically high 14-59 [facility] Comment on above: Performed By: #### A 1C #### [facility] [address] [place] [address] Dr. Rosemary Ames Anion gap [Moles/Vol] 16.0 mmol/L Normal [facility] Comment on above: Performed By: #### A 1C #### [facility] [address] [place] [address] Dr. Rosemary Ames AST [Catalytic activity/Vol] 82 U/L Critically high 15-37 [facility] Comment on above: Performed By: #### A 1C #### [facility] [address] [place] [address] Dr. Rosemary Ames Bilirubin [Mass/Vol] 1.0 mg/dL Normal 0.2-1.0 [facility] Comment on above: Performed By: #### A 1C #### [facility] [address] [place] [address] Dr. Rosemary Ames Calcium [Mass/Vol] 9.1 mg/dL Normal 8.5-10.[address] [facility] Comment on above: Performed By: #### A 1C #### [facility] [address] [place] [address] Dr. Rosemayr Ames Chloride [Moles/Vol] 96 mmol/L Critically low 98-107 [facility] Comment on above: Performed By: #### A 1C #### [facility] [address] [place] [address] Dr. Rosemary Ames CO2 [Moles/Vol] 25.7 mmol/L Normal 21.0-32.0 [facility] Comment on above: Performed By: #### A 1C #### [facility] [address] [place] [address] Dr. Rosemary Ames Creatinine [Mass/Vol] 0.78 mg/dL Normal 0.55-1.02 [facility] Comment on above: Performed By: #### A 1C #### [facility] [address] [place] [address] Dr. Rosemary Ames EGFR-AF [place] >60 Normal >=60 [facility] Comment on above: Performed By: #### A 1C #### [facility] [address] [place] [address] Dr. Rosemary Ames EGFR-NON AF [place] >60 Normal >=60 [facility] Comment on above: Performed By: #### A 1C #### [facility] [address] [place] [address] Dr. Rosemary Ames Globulin (S) [Mass/Vol] 3.9 g/dL Normal [facility] Comment on above: Performed By: #### A 1C #### [facility] [address] [place] [address] Dr. Rosemary Ames Glucose [Mass/Vol] 190 mg/dL Critically high 74-106 [facility] Comment on above: Performed By: #### A 1C #### [facility] [address] [place] [address] Dr. Rosemary Ames Potassium [Moles/Vol] 3.7 mmol/L Normal 3.5-5.1 [facility] Comment on above: Performed By: #### A 1C #### [facility] [address] [place] [address] Dr. Rosemary Ames Protein [Mass/Vol] 8.0 g/dL Normal 6.4-8.[address] [facility] Comment on above: Performed By: #### A 1C #### [facility] [address] [place] [address] Dr. Rosemary Ames Sodium [Moles/Vol] 134 mmol/L Critically low 136-145 [facility] Comment on above: Performed By: #### A 1C #### [facility] [address] [place] [address] Dr. Rosemary Ames Urea nitrogen [Mass/Vol] 9.0 mg/dL Normal 7.0-18.0 [facility] Comment on above: Performed By: #### A 1C #### [facility] [address] [address] [address] Rosemary Ames Urea nitrogen/Creatinine [Mass ratio] 11.5 mg/mg Normal [facility] Comment on above: Performed By: #### A 1C #### [facility] [facility] [address] [address] [address] Rosemary Ames TROPONIN, HIGH SENSITIVITYon 03-13-2022 HSTROP <4.0 Normal 4.0-51.3 [facility] Comment on above: Result Comment: CUT- OFF POINTS HAVE BEEN ESTABLISHED BASED ON THE FOURTH UNIVERSAL DEFINITIONS OF MYOCARDIAL INFARCTION. THE UPPER REFERENCE LIMIT (URL) OF TROPONIN, DEFINED THE 99TH PERCENTILE OF cTnI DISTRIBUTION IN A REFERENCE POPULATION, HAS BEEN CONFIRMED THE DECISION THRESHOLD FOR [place] DIAGNOSIS. Previously reported as: 3.9 On 03/13/2022 18:24 By DM9 Performed By: #### A 1C #### [facility] [address] [place] [address] Dr. Rosemary Ames TSHon 03-13-2022 TSH 0.440 uIU/mL Normal 0.358-3.740 [facility] Comment on above: Performed By: #### A 1C #### [facility] [address] [place] [address] Dr. Rosemary Ames XR CHEST 1 Von [...] TUAN LEWIS Date: 2022-03-13 18:59 Normal [facility] INSULINon 12-11-2021 Insulin 40.7 uIU/mL Critically high 2.6-24.9 [facility] Comment on above: Performed By: #### A 1C #### [facility] [address] [place] [address] Dr. Rosemary Ames BNPon 12-10-2021 NT PRO BNP <11.1 Normal <=450.0 [facility] Comment on above: Performed By: #### T 7, LIPID, TSH, CMADM, BNP, CMP #### [facility] [address] [address] [address] Rosemary Ames CARDIAC RY ADMITon 022 CK [Catalytic activity/Vol] 80 U/L Normal 26-192 [facility] Comment on above: Performed By: #### T 7, LIPID, TSH, CMADM, BNP, CMP #### [facility] [address] [place] [address] Dr. Rosemary Ames CK.MB [Mass/Vol] 0.56 ng/mL Normal <=3.60 [facility] Comment on above: Performed By: #### T 7, LIPID, TSH, CMADM, BNP, CMP #### [facility] [address] [place] [address] Dr. Rosemary Ames HSTROP 5.3 pg/mL Normal 4.0-51.3 [facility] Comment on above: Result Comment: CUT- OFF POINTS HAVE BEEN ESTABLISHED BASED ON THE FOURTH UNIVERSAL DEFINITIONS OF MYOCARDIAL INFARCTION. THE UPPER REFERENCE LIMIT (URL) OF TROPONIN, DEFINED THE 99TH PERCENTILE OF cTnI DISTRIBUTION IN A REFERENCE POPULATION, HAS BEEN CONFIRMED THE DECISION THRESHOLD FOR [place] DIAGNOS[place]. Performed By: #### T 7, LIPID, TSH, CMADM, BNP, CMP #### [facility] [address] [place] [address] Dr. Rosemary Ames RADHA 26 ng/mL Normal 9-82 [facility] Comment on above: Performed By: #### T 7, LIPID, TSH, CMADM, BNP, CMP #### [facility] [address] [place] [address] Dr. Rosemary Ames CBC AUTO DIFFon 12-10-2021 BASO # 0.0 103/ul Normal 0.0-0.1 [facility] Comment on above: Performed By: #### E RUR #### [facility] [address] [place] [address] Dr. Rosemary Ames Basophils/100 WBC (Bld) 0.4 % Normal 0.2-2.0 [facility] Comment on above: Performed By: #### E RUR #### [facility] [address] [place] [address] Dr. Rosemary Ames EO # 0.1 103/ul Normal 0.0-0.7 [facility] Comment on above: Performed By: #### E RUR #### [facility] [address] [place] [address] Dr. Rosemary Ames Eosinophils/100 WBC (Bld) 1.0 % Normal 0.9-7.0 [facility] Comment on above: Performed By: #### E RUR #### [facility] [address] [place] [address] Dr. Rosemary Ames Erythrocyte distribution width (RBC) [Ratio] 13.7 % Normal 11.0-15.0 [facility] Comment on above: Performed By: #### E RUR #### [facility] [address] [place] [address] Dr. Rosemary Ames Hematocrit (Bld) [Volume fraction] 40.9 % Normal 36.0-48.0 [facility] Comment on above: Performed By: #### E RUR #### [facility] [address] [place] [address] Dr. Rosemary Ames Hemoglobin (Bld) [Mass/Vol] 13.0 g/dL Normal 12.0-16.0 [facility] Comment on above: Performed By: #### E RUR #### [facility] [address] [place] [address] Dr. Rosemary Ames IG # 0.03 10e3/ul Normal 0.00-0.03 [facility] Comment on above: Performed By: #### E RUR #### [facility] [address] [place] [address] Dr. Rosemary Ames IG % 0.4 % Normal 0.0-0.5 [facility] Comment on above: Performed By: #### E RUR #### [facility] [address] [place] [address] Dr. Rosemary Ames LYMPH # 2.4 103/ul Normal 1.2-3.8 [facility] Comment on above: Performed By: #### E RUR #### [facility] [address] [place] [address] Dr. Rosemary Ames Lymphocytes/100 WBC (Bld) 30.3 % Normal 20.5-60.0 [facility] Comment on above: Performed By: #### E RUR #### [facility] [address] [place] [address] Dr. Rosemary Ames MANUAL DIFF REQ NO Normal [facility] Comment on above: Performed By: #### E RUR #### [facility] [address] [place] [address] Dr. Rosemary Ames MCH (RBC) [Entitic mass] 25.8 pg Critically low 26.7-34.0 [facility] Comment on above: Performed By: #### E RUR #### [facility] [address] [place] [address] Dr. Rosemary Ames MCHC (RBC) [Mass/Vol] 31.8 g/dL Normal 29.9-35.2 [facility] Comment on above: Performed By: #### E RUR #### [facility] [address] [place] [address] Dr. Rosemary Ames MCV (RBC) [Entitic vol] 81.2 fL Normal 81.0-99.0 [facility] Comment on above: Performed By: #### E RUR #### [facility] [address] [place] [address] Dr. Rosemary Ames MONO # 0.5 103/ul Normal 0.3-0.8 [facility] Comment on above: Performed By: #### E RUR #### [facility] [address] [place] [address] Dr. Rosemary Ames Monocytes/100 WBC (Bld) 6.1 % Normal 1.7-12.0 [facility] Comment on above: Performed By: #### E RUR #### [facility] [address] [address] [address] Rosemary Ames NEUT # 5.0 103/ul Normal 1.4-6.5 [facility] Comment on above: Performed By: #### E RUR #### [facility] [address] [place] [address] Dr. Rosemary Ames Neutrophils/100 WBC (Bld) 61.8 % Normal 43.0-75.0 [facility] Comment on above: Performed By: #### E RUR #### [facility] [address] [place] [address] Dr. Rosemary Ames Platelet mean volume (Bld) [Entitic vol] 9.9 fL Normal 9.5-13.5 [facility] Comment on above: Performed By: #### E RUR #### [facility] [address] [place] [address] Dr. Rosemary Ames PLT 284 103/ul Normal 150-450 [facility] Comment on above: Performed By: #### E RUR #### [facility] [address] [place] [address] Dr. Rosemary Ames RBC 5.04 106/ul Normal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 ambulatory MARIO ZORAIDA Not Available Start: 07-29-2023 End: 07-29-2023 ambulatory [facility] Start: 07-28-2023 End: 07-28-2023 ambulatory MARIO ZORAIDA Not Available Start: 07-23-2023 End: 07-23-2023 ambulatory [facility] Start: 07-22-2023 End: 07-22-2023 ambulatory [facility] Start: 07-14-2023 End: 07-14-2023 ambulatory MARIO ZORAIDA Not Available Start: 07-10-2023 End: 07-10-2023 ambulatory [facility] Start: 06-30-2023 End: 06-30-2023 ambulatory MARIO ZORAIDA Not Available Start: 06-30-2023 End: 06-30-2023 ambulatory [facility] Start: 06-23-2023 End: 06-24-2023 ambulatory [facility] Start: 06-23-2023 End: 06-23-2023 ambulatory LEANA [facility] Start: 06-11-2023 End: 06-12-2023 ambulatory MARIO JARRETTO [facility] Start: 06-10-2023 End: 06-10-2023 ambulatory MARIO JARRETTO Not Available Start: 06-09-2023 Orders Only Leana franco MD Work Phone: [facility] Start: 06-04-2023 Orders Only Leana franco MD Work Phone: [facility] Comment on above: Type 2 diabetes naz itus in , second trimester (Primary Dx) Start: 05-29-2023 End: 05-29-2023 ambulatory MARIO JARRETTO Not Available Start: 05-29-2023 End: 05-29-2023 ambulatory [facility] Start: 05-29-2023 End: 05-29-2023 Office outpatient visit 25 minutes Leana Burr MD Work Phone: [facility] Comment on above: Type 2 diabetes naz itus in , second trimester (Primary Dx) Start: 05-20-2023 End: 05-20-2023 Orders Only Mary Guidry SUPERVISOR [employer]-CNM Work Phone: [facility] Comment on above: Type 2 diabetes naz itus in , second trimester (Primary Dx) Start: 05-20-2023 End: 05-20-2023 Office outpatient new 45 minutes Leana Burr MD [facility] Comment on above: Type 2 diabetes naz itus in , second trimester (Primary Dx) Start: 05-13-2023 Telephone encounter Joann pastrana RN Work Phone: [facility] Start: 05-12-2023 Telephone encounter Joann pastrana RN Work Phone: [facility] Start: 05-12-2023 End: 05-12-2023 ambulatory SHWETHA CARTER Not Available Start: 05-08-2023 Orders Only Queta Zazueta [facility] Comment on above: Type 2 diabetes naz itus in , second trimester (Primary Dx) Start: 05-07-2023 End: 05-07-2023 Office outpatient visit 25 minutes Opal Heath SUPERVISOR OVENS-CRIMINAL RECORDS TECHNICIAN Work Phone: [facility] Comment on above: Type 2 diabetes naz itus in , second trimester (Primary Dx); Insulin pump in place; HTN in , chronic Start: 05-07-2023 End: 05-07-[address] Work Phone: [facility] Comment on above: Type 2 diabetes naz itus in , second trimester (Primary Dx); Pre-existing type 2 diabetes mellitus during in first trimester Start: 04-23-2023 Chart abstracting Opal falk SUPERVISOR OVENS-CRIMINAL RECORDS TECHNICIAN Work Phone: [facility] Start: 04-23-2023 Telephone encounter Danyell Ortiz RN [facility] Start: 04-17-2023 End: 04-17-2023 ambulatory MARIO [...] Start: 08-27-2021 End: 08-27-2021 ambulatory CHAMP BELL [facility] Start: 08-27-2021 End: 08-27-2021 Office outpatient new 60 minutes Champ Bell MD Work Phone: [facility] Comment on above: Type 2 diabetes naz itus with hyperglycemia, unspecified whether petroleum terminal plant operator insulin use (HCC) (Primary Dx); Thyroid disorder; Hair loss Start: 08-24-2021 End: 08-25-2021 Emergency department patient visit Tyler SKristi Summers [facility] Start: 08-15-2021 End: 08-15-2021 ambulatory GREGORY FAN . Facility:[facility] Start: 06-13-2021 End: 06-14-[address] CHAMP BELL . Facility:[facility] Start: 05-04-2021 Transcribe Orders Champ Bell MD Work Phone: [facility] Comment on above: Thyroid disorder (Pr imary Dx); Hair loss Procedures Date Procedure Procedure Detail Performing Clinician Start: 05-12-2023 Microscopic observat ion [Identifier] in Cervix by Cyto stain Leana Burr MD Work Phone: Start: 04-01-2023 Antibody screen Bebe Heath SUPERVISOR OVENS-CRIMINAL RECORDS TECHNICIAN Work Phone: Start: 04-01-2023 Bacteria identified in [...] malign ant neoplasm of cervix Pap Smear [facility] Start: 05-28-2024 Tobacco Screening Tobacco Screening [facility] Start: 05-07-2024 Adult BMI Screening Adult BMI Screen ing [facility] Start: 05-07-2024 Tobacco Screening Tobacco Screening [facility] Start: 05-07-2024 End: 05-07-2024 US MFM with or without consult US MFM with or without consult Imaging Routine Type 2 diabetes mellitus in , second trimester Expected: 05/07/2024 (Approximate), Expires: 05/07/2024 [facility] Work Phone: Comment on above: Expected: 05/07/2024 (Approximate), Expires: 05/07/2024 Start: 11-09-2023 Influenza vaccination Influenza Vacc ine [facility] Start: 06-11-2023 End: 06-11-2023 Patient encounter procedure 06/11/2023 1:00 PM EDT Appointment [facility] - [facility] Imaging [address] [place] [address] [facility] Start: 06-10-2023 End: 06-10-2023 Patient encounter procedure 06/10/2023 3:00 PM EDT Office Visit [facility] [address] [place] [phone] Leana Burr MD [address] [place] [address] [facility] Start: 06-04-2023 End: 06-04-2023 Patient encounter procedure 06/04/2023 10:45 AM EDT Office Visit [facility] [address] [place] [id number] Leana Burr MD [address] [place] [address] [facility] Start: 05-29-2023 End: 05-29-2023 Patient encounter procedure 05/29/2023 10:45 AM EDT Office Visit [facility] [address] [place] [phone] Leana Burr MD [address] [place] [address] [facility] Start: 05-20-2023 End: 05-20-2023 Telemedicine consultation with patient 05/20/2023 8:00 AM EDT Telemedicine [facility] [address] [place] [phone] Leana Burr MD [address] [place] [address] [facility] Start: 05-12-2023 End: 05-12-2023 Patient encounter procedure 05/12/2023 8:30 AM EST Routine [facility] [address] [place] [address] Shwetha Carter PA [address] [place] [address] [facility] Start: 05-07-2023 End: 05-07-2023 Patient encounter procedure 05/07/2023 3:00 PM EST Office Visit [facility] [address] [place] [address] Opal Heath, SUPERVISOR OVENS-CRIMINAL RECORDS TECHNICIAN [address] [place] [address] [facility] Start: 05-07-2023 End: 05-07-2023 ambulatory 05/07/2023 1:00 PM EST Support Visit [facility] [address] [place] [address] Shital Fritz, RD [address] [facility] [address] [place] [address] [facility] Start: 11-08-2022 Influenza vaccination Influenza Vacc ine [facility] Start: 11-27-2021 End: 11-27-2021 Patient encounter procedure 11/27/2021 Office Visit Endocrinology Gregorio Floyd MD [address] [place] [id number] [facility] Start: 11-27-2021 Hemoglobin A1c measurement A1C [facility] Start: 11-08-2021 Influenza vaccination Sequenti al Influenza Vaccine (Season Ended) [facility] Start: 06-25-2021 End: 06-25-2021 Patient encounter procedure 06/25/2021 Office Visit Endocrinology Gregorio Floyd MD [facility] [place] [address] [facility] Start: 11-08-2020 Influenza vaccination Sequenti al Influenza Vaccine (#1) [facility] Start: 11-14-2015 Screening for malign ant neoplasm of cervix Pap Smear [facility] Start: 2013 DTaP,Tdap and Td Vaccines (1 - Tdap) DTaP,Tdap and Td Vaccines (1 - Tdap) [facility] Start: 2012 Adult BMI Follow Up Plan Adult BMI Follow Up Plan [facility] Start: 2012 Adult BMI Screening Adult BMI Screen ing [facility] Start: 2012 Diabetic foot examination Diabetic Foot Exam [facility] Start: 2012 Hepatitis C screening Hepatitis C Sc reening [facility] Start: 2009 HIV screening HIV Screening [facility] Start: 2006 Depression screening using PHQ-9 (Patient Health Questionnaire 9) score [facility] Start: 2006 Tobacco Screening Tobacco Screening [facility] Start: 2005 DTaP,Tdap and Td Vaccines (5 - Tdap) DTaP,Tdap and Td Vaccines (5 - Tdap) [facility] Start: 2004 Diabetic foot examination Foot Exam [facility] Start: 2004 Microalbumin measurement, urine, quantitative Urine Microalbumin [facility] Start: 2004 Ophthalmic examinati on and evaluation Ophthalmology Exam [facility] Start: 2000 Pneumococcal Vaccine : Ped or At-Risk (1 - PCV) Pneumococcal Vaccine: Ped or At-Risk (1 - PCV) [facility] Start: 11-14-1999 COVID-19 Vaccine (#1) COVID-19 Vacci ne (#1) [facility] Start: 11-14-1999 COVID-19 Vaccine (1) COVID-19 Vaccin e (1) [facility] Start: 1997 History and physical examination, annual for health maintenance Wellness Visit [facility] Start: 1994 Glaucoma screening Diabetic Op hthalmology Exam [facility] Start: 1994 Screening for malign ant neoplasm of cervix Pap Smear [facility] Start: 1994 Tetanus vaccination Tetanus: Every 1 0yrs [facility] Start: 1994 Urine screening for protein Urine Microalbumin [facility] End: 08-27-2022 C peptide [Mass/volume] in Serum or Plasma C-peptide Lab Routine Type 2 diabetes mellitus with hyperglycemia, unspecified whether jail insulin use (HCC) 1 Occurrences starting 08/27/2021 until 08/27/2022 [facility] Comment on above: 1 Occurrences starti ng 08/27/2021 until 08/27/2022 End: 05-19-2024 C-peptide C-peptide Lab Routine Type 2 diabetes mellitus in , second trimester 1 Occurrences starting 05/20/2023 until 05/19/2024 [facility] Comment on above: 1 Occurrences starti ng 05/20/2023 until 05/19/2024 End: 05-19-2024 GAD65 Ab assay GAD65 Ab assay Lab Routine Type 2 diabetes mellitus in , second trimester 1 Occurrences starting 05/20/2023 until 05/19/2024 [employer] Phone: Comment on above: 1 Occurrences starti ng 05/20/2023 until 05/19/2024 End: 08-27-2022 Glucose [Mass/volume] in Serum or Plasma Glucose Lab Routine Type 2 diabetes mellitus with hyperglycemia, unspecified whether petroleum terminal plant operator insulin use (HCC) 1 Occurrences starting 08/27/2021 until 08/27/2022 [facility] Comment on above: 1 Occurrences starti ng 08/27/2021 until 08/27/2022 End: 05-19-2024 Glucose [Mass/volume] in Serum or Plasma Glucose Lab Routine Type 2 diabetes mellitus in , second trimester 1 Occurrences starting 05/20/2023 until 05/19/2024 [facility] Comment on above: 1 Occurrences starti ng 05/20/2023 until 05/19/2024 Hepatic function 200 0 panel - Serum or Plasma Hepatic function panel Lab Routine Type 2 diabetes mellitus with hyperglycemia, unspecified whether jail insulin use (HCC) Ordered: 08/27/2021 [facility] Comment on above: Ordered: 08/27/2021 End: 05-19-2024 Insulinoma Associated Antibody 2 Insulinoma Associated Antibody 2 Lab Routine Type 2 diabetes mellitus in , second trimester 1 Occurrences starting 05/20/2023 until 05/19/2024 [facility] Comment on above: 1 Occurrences starti ng 05/20/2023 until 05/19/2024 End: 08-27-2022 Islet cell antibody measurement Anti-Islet Cell (GAD65) Antibody Lab Routine Type 2 diabetes mellitus with hyperglycemia, unspecified whether jail insulin use (HCC) 1 Occurrences starting 08/27/2021 until 08/27/2022 [facility] Comment on above: 1 Occurrences starti ng 08/27/2021 until 08/27/2022 End: 08-27-2022 Lipid 1996 panel - Serum or Plasma Lipid Panel Lab Routine Type 2 diabetes mellitus with hyperglycemia, unspecified whether jail insulin use (HCC) 1 Occurrences starting 08/27/2021 until 08/27/2022 [facility] Comment on above: 1 Occurrences starti ng 08/27/2021 until 08/27/2022 Microalbumin measurement, urine, quantitative Microalbumin/Creatinine Ratio, UR Random Lab Routine Type 2 diabetes mellitus with hyperglycemia, unspecified whether petroleum terminal plant operator insulin use (HCC) Ordered: 08/27/2021 [facility] Work Phone: Comment on above: Ordered: 08/27/2021 Payers Date Payer Category Payer Medicaid [id number] 1994 Unknown [id number] 2.16. 840.1.238211.3.579.2.903 1994 Unknown [id number] 2.16.84 0.1.134677.3.579.2.593 1994 Unknown [id number] 2.16.84 0.1.543539.3.579.2.593 1994 Unknown [id number] 2.16.84 0.1.545842.3.579.2.593 1994 Unknown [id number] 2.16.84 0.1.226467.3.579.2.593 1994 Unknown [id number] 2.16.84 0.1.702389.3.579.2.593 1994 Unknown [id number] 2.16.84 0.1.971110.3.579.2.593 1994 Unknown [id number] 2.16.84 0.1.970312.3.579.2.593 1994 Unknown [id number] 2.16.84 0.1.764187.3.579.2.593 1994 Unknown [id number] 2.16.84 0.1.017524.3.579.2.593 1994 Unknown [id number] 2.16.84 0.1.918627.3.579.2.593 1994 Unknown [id number] 2.16.84 0.1.769669.3.579.2.593 1994 Unknown [id number] 2.16.84 0.1.989379.3.579.2.593 1994 Unknown [id number] 2.16.84 0.1.565827.3.579.2.593 1994 Unknown [id number] 2.16.8 40.1.771149.3.579.2.1286 1994 Unknown [id number] 2.16.8 40.1.569589.3.579.2.128 1994 Unknown [id number] 2.16.8 40.1.963165.3.579.2.128 1994 Unknown [id number] 2.16.8 40.1.164159.3.579.2.1285 1994 Unknown [id number] 2.16.8 40.1.045747.3.579.2.1285 1994 Unknown [id number] 2.16.8 40.1.290273.3.579.2.128 1994 Unknown [id number] 2.16.8 40.1.490881.3.579.2.1286 1994 Unknown [id number] 2.16.8 40.1.688114.3.579.2.1285 1994 Unknown [id number] 2.16.8 40.1.147243.3.579.2.1285 1994 Unknown [id number] 2.16.8 40.1.095907.3.579.2.1285 1994 Unknown [id number] 2.16.8 40.1.017579.3.579.2.1285 1994 Unknown [id number] 2.16.8 40.1.284081.3.579.2.1285 1994 Unknown [id number] 2.16.8 40.1.401972.3.579.2.1285 1994 Unknown [id number] 2.16.84 0.1.972741.3.579.2.1258 1994 Unknown [id number] 2.16.84 0.1.361123.3.579.2.1258 1994 Unknown [id number] 2.16.84 0.1.148296.3.579.2.1258 1994 Unknown [id number] 2.16.84 0.1.251250.3.579.2.1258 1994 Unknown [id number] 2.16.84 0.1.132110.3.579.2.1258 1994 Unknown [id number] 2.16.84 0.1.247702.3.579.2.1258 1994 Unknown [id number] 2.16.84 0.1.970020.3.579.2.1258 1994 Unknown [id number] 2.16.84 0.1.406403.3.579.2.1258 1994 Unknown [id number] 2.16.84 0.1.940348.3.579.2.1258 1994 Unknown [id number] 2.16.84 0.1.839230.3.579.2.1259 1994 Unknown [id number] 2.16.840 .1.335232.3.579.2.1259 1959 Medicaid [id number] 1959 Unknown [id number] 1959 Unknown [id number] 1959 Unknown [id number] Social History Date Type Detail Facility Start: 04-23-2023 Tobacco smoking status NHIS Tobacco smoking consumption unknown [facility] Start: 1995 Sex Assigned At Not on file [facility] Start: 08-24-2021 Tobacco smoking status Never [facility] Start: 03-24-2023 End: 05-07-2023 Sex Assigned At Female [facility] Start: 08-17-2021 End: 08-27-2021 Exposure to SARS-CoV-2 (event) Not sure [facility] Start: 03-24-2023 End: 05-07-2023 Tobacco smoking status KYIS Never smoked tobacco [facility] Start: 04-17-2023 Alcohol intake Lifetime non-d jorge (finding) [facility] Start: 03-24-2023 End: 05-07-2023 History of Social function [facility] Start: 02-04-2023 [facility] Start: 1995 Sex Assigned At Female [facility] Start: 02-27-2023 Gender identity Identifies as female gender (finding) [facility] Start: 05-07-2023 Tobacco use and exposure Smokeless tobacco non-user [facility] Start: 05-07-2023 End: 05-29-2023 Alcohol intake Ex-drinker (finding) [facility] Equipment Procedure Code Equipment Code Equipment Origin al Text Equipment Identifier Dates 1 each by Other route if needed [id number] Start: 03-11-2023 Use a new needle with each injection [id number] Start: 05-07-2023 Functional Status Date Assessment Result Facility 08-24-2021 Functional Status N/A [facility] Clinical Notes 08-24-2021 to 05-29-2023 Leana Burr MD - 05/29/2023 10:45 AM Maria A Burr MD - 05/20/2023 8:00 AM EDTTelephone Encounter - Joann Walsh RN - 05/13/2023 3:19 PM Donte Zazueta CMA - 05/07/2023 3:00 PM EST Note Date & Type Note Facility 05-29-2023 History of Present illness Narrative [facility]- Diabetes Visit TELEMEDICINE VISIT: This is an audiovisual visit. This is done to assess the patient and to determine the best medical care. The patient was located at home in [place] and the provider was located at the medical office in [place]. The patient states they are not driving [...] has been treated with insulin pump since 2016. Her current regimen is: Omnipod insulin pump with dexcom G6 sensor She uses dexcom to monitor her BG. She requires this testing due to Hyperglycemia, risk of nocturnal hypoglycemia, variable BG, need for frequent dose adjustments. Patient is feeling well today. She presents as a new patient. She is at 18w2d with Estimated Date of Delivery: 10/28/23. She is referred from [facility] who is managing along with us. She has had her diabetes education with [facility]. Please see media for full [...] within last year: none. Complications: History of [place], CHF: none Medications none Last Lipid panel drawn due after History of HTN: no Medications none History of Diabetic Retinopathy: unknown. Last seen Real Estate Valuer unknown History of peripheral neuropathy: none Medications [...] History: Diagnosis Date Anxiety Depression Diabetes mellitus ([facility]) Disease of thyroid gland Hypertension History reviewed. [...] 10/28/23. She has had diabetes education with [facility]. We reviewed the following We [...] breakfast: try low sugar protein shakes or gabonese yogurt if appetite lower in the AM. [...] to foot injury. : I agree with [facility] recommendations for care. NSTs twice weekly with weekly WEI starting at 32 weeks. Growth US every 4 weeks starting at 28 weeks. Tentative delivery by 39 weeks, but will defer to MFM. Follow up in 1 week. Following at least once per trimester with M as well. LEANA BURR MD [facility] documented in this encounter [facility] 05-20-2023 History of Present illness Narrative [facility]- Diabetes Visit Tess Pfeiffer is a 27 y.o. with type 2 diabetes. She was diagnosed in 2014 and was started on oral medications. She was tried on jardiance (yeast infections), metformin (GI side effects), glipizide (ineffective), and Trulicity (some benefit) and has been treated with insulin pump since 2016. Her current regimen is: Omnipod insulin pump with dexcom G6 sensor She uses dexcom to monitor her BG. She requires this testing due to Hyperglycemia, risk of nocturnal hypoglycemia, variable BG, need for frequent dose adjustments. Patient is feeling well today. She presents as a new patient. She is at 17w0d with Estimated Date of Delivery: 10/28/23. She is referred from [facility] who is managing along with us. She has had her diabetes education with [facility]. Please see media for full pump download. Still on automated basal and it is turning off when she is in glucose ranges. Unfortunately, her basal rates have jeffery increased and would give her 20 units [...] within last year: none. Complications: History of [place], CHF: none Medications none Last Lipid panel drawn due after History of HTN: no Medications none History of Diabetic Retinopathy: unknown. Last seen Real Estate Valuer unknown History of peripheral neuropathy: none Medications [...] History: Diagnosis Date Anxiety Depression Diabetes mellitus ([facility]-H[facility]) Disease of thyroid gland Hypertension [...] LABALBU , BILITOT Assessment and Plan Tess A Kentrell is a 27 y.o. with type 2 diabetes. She is now at 17w0d with Estimated Date of Delivery: 10/28/23. She has had diabetes education with [facility]. We reviewed the following We [...] breakfast: try low sugar protein shakes or gabonese yogurt if appetite lower in the AM. [...] with MFM as well. LEANA BURR MD [facility] documented in this encounter [facility] 05-13-2023 Miscellaneous Notes Summary: MFM Insulin Pump Changes Called and spoke with Tess regarding Soraida GRAY reviewed [place] Report and made the following insulin pump changes. All basal doses remain the same. Under Insulin : Carb Ratios (Bolus): 0000 - 1200 3 grams/Unit 1200 - 2000 2.5 grams/Unit 1999 - 0000 3 grams/Unit Changed Target Blood Glucose to 110 mg/dL Emphasized the need to bolus 15 minutes prior to start of meals. Verbalized understanding and denied any questions. documented in this encounter [facility] 05-13-2023 Telephone encounter Note Summary: MFM Insulin [...] meals. Verbalized understanding and denied any questions. [facility] Work Phone: 05-12-2023 Miscellaneous Notes Summary: [facility] Insulin Pump Questions Called and [...] week 05/20/23. Informed would call back after [facility] provider reviews. documented in this encounter [facility] 05-12-2023 Telephone encounter Note Summary: [facility] Insulin Pump Questions Called and [...] week 05/20/23. Informed would call back after [facility] provider reviews. [facility] Work Phone: 05-07-2023 History of Present illness [...] results Have you been seen here at [facility] in a previous ? N/a Recent ER visits or hospitalizations? No Bring blood sugar log or meter with you today? (Please bring them with you for every visit at [facility]) yes Traveled outside the country [...] no complaints. She is being followed at [facility] due to Type 2 [...] TSH 1.05 04/01/2023 No results found for: [id number] No results found for: CREATININE , BUN [...] [email or web address] or by fax to: [phone] 40 Minutes spent dlca-te-vnhl; more than 50% of time spent counseling and/or coordinating care with additional time for record review and communication to referring provider. SABINA Uribe 05/07/23 1556 documented in this encounter [facility] [employer] [facility] 05-07-2023 History of Present illness Narrative [...] care for you: OB Provider Family Doctor [facility] [employer] R[employer] Name: Sebastian Name: No primary care provider on file. Name:[facility] City: City: City: Last time seen: Last [...] demonstration Is there anything about your culture, lutheran, or personal beliefs we need to know about to care for you: Other none Primary Language spoken: Yi [22] Primary Language for learning: Yi Are you currently in a relationship where you are physically hurt, threatened or made to fee afraid? [] Yes [x] No Rn Picu needed? [] Yes [x] No Marital status/Living [...] If yes, where: On thge following scale, northway the number, which describes your current level [...] Past Medical History: Diagnosis Date Diabetes mellitus ([facility]) Disease of thyroid gland Hypertension OB [...] Educational Level high school Family issues none Cultural/ethnic/sikh influences none Exercise approved by MD? Current Exercise program walking Who prepares the meal pt Who purchase food at your home? pt Equipment use for cooking/food storage has all Food Assistance(Ex.WIC, Food [place]) has apt Dining out Yes 1 time per month Appetite/Appetite changes increased Weight History stable Do you have cats at home? Feeding Plans Breast Feeding If you have cats, who cleans the litter box? Cravings/Aversions/Pica none currently Nutrition Assessment Worksheet: Week/Weekend Food Recall Breakfast Berger Or cereal Or eggs Snack Lunch Grilled [...] Management Support Plan, patient chose to use [place] [employer] to help manage her diabetes. Patient understands that we will follow up weekly with a phone call to review progress. Face to face time 40 minutes. documented in this encounter [facility] 05-07-2023 Instructions Danyell Ortiz RN - 05/07/2023 [...] HOURS WHILE AWAKE documented in this encounter [facility] 04-23-2023 Miscellaneous Notes Called pt due toher not coming to her appt today and she stated she had left a message that she needed to tammi due to not having transportation to her appt this morning. Her name given back to the schedulers to call and resched her. documented in this encounter [facility] 04-23-2023 Telephone encounter Note Called pt due toher not coming to her appt today and she stated she had left a message that she needed to tammi due to not having transportation to her appt this morning. Her name given back to the schedulers to call and resched her. [facility] 04-17-2023 History of Present illness [...] Hand fracture, right Type 2 diabetes mellitus ([facility]) Family History Problem Relation Name Age [...] nursing note reviewed. Exam conducted with a manufacturing process engineer present. Vitals: Estimated body mass index is 47.85 kg/m as calculated from the following: Height as of 21: 5'. Weight as of this encounter: 245 [...] Mario Conway DO documented in this encounter [facility] 08-27-2021 Instructions Gregorio Floyd MD - 08/27/2021 [...] for now. documented in this encounter [facility] 08-27-2021 History of Present illness [...] ALKPHOS, BILITOT No results found for: TSH, Y5LIBAK, THYROIDAB No results found for: PTH, CALCIUM, JACQUES, PHOS Lab Results Component Value Date HGBA1C 7.7 (A) 08/27/2021 No results found for: LDLCALC, CHOL, HDL, TRIG, CHOLHDL No results found for: MICALBCREAT, [id number] No results found for: CPEPTIDE Assessment and [...] acanthosis nigricans indicate T2DM, but will get FPB15-Ea and c-peptide/glucose given the young age of [...] Due for foot exam no 08/2021; to crisis intervention counselor on foot care next visit CV [...] MD Endocrinology documented in this encounter [facility] 08-25-2021 Hospital Discharge instructions Patient [...] Ask your health care provider for a wfug-wa-rgcl plan for gradually returning to activities. Ask [...] your friends, family, a trusted colleague, and ironing worker about your injury, symptoms, and restrictions. Have them watch for any new or worsening problems. General instructions Take gtat-yad-utcobbk and prescription medicines only as told by [...] 02/24/2006 Document Revised: 03/24/2019 Document Reviewed: 03/19/2019 [employer] Patient Education 2020 [employer] 08/25/2021 02:09:26 Cervical Sprain Cervical Sprain [...] provider or physical therapist. General instructions Take rvqk-dds-icksmqd and prescription medicines only as told by [...] 12/22/2007 Document Revised: 06/16/2019 Document Reviewed: 10/23/2016 [employer] Patient Education 2020 [employer]. Follow Up Care 08/24/2021 22:42:21 With:Champ Bell Address: [address] [place], [place] [address]- Business (1) When:Within 3 Day(s) [facility] 08-24-2021 Evaluation + Plan note Extrac lincoln [...] w/o Contrast CT Spine Cervical w/o Contrast [facility] Diagnosis Thyroid disorder- Primary Unspecified disorder of thyroid Hair loss Unspecified alopecia [facility] Type 2 diabetes mellitus with hyperglycemia, unspecified whether jail insulin use (HCC)- Primary Thyroid disorder Unspecified disorder of thyroid Hair loss Unspecified alopecia [facility] Diagnosis Bleeding in early Unspecified hemorrhage in early , unspecified as to episode of care Follow-up exam Unspecified follow-up examination documented [facility] this encounter [facility]* Diagnosis Type 2 diabetes mellitus in , second trimester- Primary Insulin pump in place Insulin pump status HTN in , chronic [facility] Diagnosis Type 2 diabetes mellitus in , second trimester- Primary Pre-existing type 2 diabetes mellitus during in first trimester [facility] Diagnosis Type 2 diabetes mellitus in , second trimester- Primary [facility] Diagnosis Type 2 diabetes mellitus in , second trimester- Primary [facility] Diagnosis Type 2 diabetes mellitus in , second trimester- Primary [facility] Diagnosis Type 2 diabetes mellitus in , second trimester- Primary [facility] Narrative No data available for this section [facility]ructions[facility] on filedocumented in this encounter [facility] SystemInstructionsNot on filedocumented in this encounter [facility]ructionsNot on filedocumented in this encounter [facility] SystemInstructionsNot on filedocumented in this encounter [facility] SystemInstructionsNot on filedocumented in this encounter [facility] Hospital[facility]ructionsNot on filedocumented in this encounter [facility] SystemProgress note No data available for this section [facility] for referral (narrative)* Consultation (Routine) - Pending Review Specialty Diagnoses / Procedures Referred By Juan Antonio montemayor Referred To Contact Maternal and Medicine Diagnoses Type 2 diabetes mellitus in , second trimester Insulin pump in place Opal Heath APRN-CNP [address] [place] [address] Leana Burr MD [address], [address] [address] Referral ID Status Reason Start Date Expiration Date Visits Requested Visits Authorized [id number] Pending Review Specialty Services Required 05/07/2023 05/06/2024 1 1 [facility] Consultation (Routine) - Pending Review Specialty Diagnoses / Procedures Referred By Contac t Referred To Contact Endocrinology Diagnoses Type 2 diabetes mellitus in , second trimester Mary Guidry APRN-CNM [address], [address] [place] [id number] Leana Burr MD [facility] [address] [address] Referral ID Status Reason Start Date Expiration Date Visits Requested Visits Authorized [id number] Pending Review Specialty Services Required 05/20/2023 05/19/2024 1 1 Critical access hospital for visit Narrative* Consultation (Routine) - Pending Review Specialty Diagnoses / Procedures Referred By Contac t Referred To Contact Endocrinology Diagnoses Type 2 diabetes mellitus in , second trimester Mary Guidry APRN-CNM [address], [address] [place] [address] Leana Burr MD [address] [place] [address] , [address] [address] Referral ID Status Reason Start Date Expiration Date Visits Requested Visits Authorized [id number] Pending Review Specialty Services Required 05/20/2023 05/19/2024 1 1 [facility] Summary Purpose Family History No Family History Records FoundNo Family History Records FoundNo Family History Records FoundNo Family History Records FoundNo Family History Records FoundNo Family History Records FoundNo Family History Records Found Advance Directives No Advanced Directives Records FoundDocuments on File Type Date Recorded Patient Research Laboratory Specialist Expl anation Advance Directives and Livin g Will 05/02/2021 12:00 AM Reason for Referral Specialty Diagnoses / Procedures Referred By Contac t Referred To Contact Endocrinology Diagnoses Thyroid disorder Hair loss Champ Bell MD [address] [place] [address] Gregorio Floyd MD [address] [place] [address] Referral ID Status Reason Start Date Expiration Date Visits Requested Visits Authorized [id number] Authorized Specialty Services Required/Pat ient's Best Interest 05/04/2021 05/04/2022 1 1 Specialty Diagnoses / Procedures Referred By Contac t Referred To Contact Maternal and Medicine Diagnoses Type 2 diabetes mellitus in , second trimester Procedures US [facility] with or without consult Opal Heath, SUPERVISOR OVENS-CRIMINAL RECORDS TECHNICIAN [address] [place] [address] [facility] Maternal Med [address] [place] [address] Referral ID Status Reason Start Date Expiration Date V isits Requested Visits Authorized [id number] Pending Review 05/08/2023 05/07/2024 1 1 Additional Source Comments INFORMATION SOURCE (unrecogn ized section and content) DATE CREATED AUTHOR [facility] DATE CREATED AUTHOR AUTHOR'S ORGANIZ ATION 08/27/2021 [facility] DATE CREATED AUTHOR AUTHOR'S ORGANIZ ATION 08/30/2021 [facility] DATE CREATED AUTHOR AUTHOR'S ORGANIZ ATION 06/02/2022 [facility] DATE CREATED AUTHOR AUTHOR'S ORGANIZ ATION 07/24/2023 [facility] DATE CREATED AUTHOR AUTHOR'S ORGANIZ ATION 07/31/2023 [facility] Ambulatory [facility] DATE CREATED AUTHOR AUTHOR'S ORGANIZ ATION 08/05/2023 [facility] dical Specialists EPIC Care Teams (unrecognized sec tion and content) 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 Culturist Relationship Specialty Start Date End Date Champ Bell MD [address] [place] [address] PCP - General Family Medicine 05/02/21 [employer]ai Culturist Relationship Specialty Start Date End Date Champ Bell MD [address] [place] [address] PCP - General Family Medicine 05/02/21 [employer] Relationship Specialty Start Date End Date Champ Bell MD [address] [facility] [place] [address] PCP - General 03/13/23 Reason for Visit (unrecogniz ed section and content) Reason Comments Thyroid Problem Specialty Diagnoses / Procedures Referred By Contac t Referred To Contact Endocrinology Diagnoses Thyroid disorder Hair loss Champ Bell MD [address] [place] [address] Phone: Gergorio Floyd MD [address] [place] [id number] Referral ID Status Reason Start Date Expiration Date V isits Requested Visits Authorized [id number] Closed Specialty Services Required/Deanna ent's Best Interest 05/04/2021 05/04/2022 1 1 Reason Comments ER Follow-up Reason Comments [id number] Reason Comments Diabetes Specialty Diagnoses / Procedures Referred By Contac t Referred To Contact Maternal and Medicine Diagnoses Pre-existing type 2 diabetes mellitus during in first trimester Mario Conway R, DO [address] , [place] [address] [facility] Maternal Med [address] [place] [address] Referral ID Status Reason Start Date Expiration Date Visits Requested Visits Authorized [id number] Pending Review Specialty Services Required 04/15/2023 04/14/2024 [...] BE BASED ON THE PRIMARY CLINICAL RECORDS. [facility]. provides no warranty or guarantee of the accuracy or completeness of information in this document.
--- NOTE | 2023-08-12 10:55 | US_ITS ---
[address] [address] Patient Name: TESS CALVERT MRN: [facility]:[id number] date: 1995 Sex: F Assigned Patient Location: [place] Current Patient Location: [facility] Accession/Order Number: [id number] Exam Date: 08/12/2023 11:00 Report Date: 08/12/2023 11:35 At the request of: PORSHA MOTA Procedure: US OB BPP w non-stress EXAMINATION: US OB BPP w non-stress HISTORY: Decreased movement COMPARISON: Ultrasound OB biophysical 08/06/2023 TECHNIQUE: Ultrasound biophysical profile was performed in the radiology department. BREATHING MOVEMENTS: 2.0 GROSS BODY MOVEMENTS: 2.0 TONE: 2.0 QUALITATIVE AMNIOTIC FLUID VOLUME: 2.0 PRESENTATION: CEPHALIC HEART RATE: 146.7 bpm bpm. AMNIOTIC FLUID VOLUME: 16.9 cm GESTATIONAL AGE: 29 weeks 0 days CONCLUSION: Total biophysical profile score 8.0. Electronically authenticated by: SEBLE BIGGS Date: 08/12/2023 11:35
[2023-08-12 11:51] VITALS: BP 94/55; PULSE 108
== END 2023-08-12 12:00 | disposition home or self-care (01) ==
LOC: US 07:26 → FBC 10:56
PROVIDERS: PCP Family Medicine; Visit Provider Obstetrics & Gynecology
DX: O36.8130 Decreased fetal movements, third trimester, not applicable or unspecified (principal); Z3A.29 29 weeks gestation of pregnancy
CPT/HCPCS: 76818

== ENCOUNTER 2023-08-13 09:00 | Outpatient (OUT) | payer OTHER, SELFPAY ==
--- NOTE | 2023-08-13 09:04 | US_ITS ---
[address] [address] Patient Name: TESS CALVERT MRN: [facility]:[id number] date: 1995 Sex: F Assigned Patient Location: [facility] Current Patient Location: [facility] Accession/Order Number: [id number] Exam Date: 08/13/2023 09:04 Report Date: 08/13/2023 09:57 At the request of: PORSHA CONWAY Procedure: US OB growth EXAMINATION: US OB growth HISTORY: TYPE II DIABETES COMPARISON: Ultrasound OB greater than 14 weeks 05/20/2023 FINDINGS: Heart Rate: 162.0 bpm Number: 1.0 Position: CEPHALIC Amniotic Fluid Volume: 21.7 cm Maximum Vertical Pocket: 6.4 cm BIOMETRY: BPD: 7.8 cm cm; 31 weeks 2 days; 92% HC: 28.5 cmcm; 31 weeks 2 days ; 78% AC: 29.1 cm cm; 33 weeks 0 days; >97% FL: 6.4 cm cm; 32 weeks 6 days; >97% EFW: 2018.2 grams; >97% FL/AC: 21.9 FL/BPD: 81.8 HC/AC: 1.0 GESTATIONAL AGE: Age by EDC: 29 weeks 1 days KULDIP by EDC: 10/28/2023 Age by US: 32 weeks 1 day KULDIP by US: 10/07/2023 US/US OB growth IMPRESSION: 1. Single live intrauterine with growth detailed above. 2. Estimated weight is greater than 97th percentile[address] Dr. Conway was notified by the propeller inspector at time of imaging. Electronically authenticated by: SEBLE BIGGS Date: 08/13/2023 09:57
--- OUTSIDE RECORDS SUMMARY | 2023-08-13 09:06 | XMS_ITS | CCD ---
Author Organization [facility] Care Team Providers Care Masonry Inspector Name Role Phone Champ Bell MD Primary Care Provider Champ Bell Primary Care Physician [phone] Champ Bell MD Primary Care Provider [phone] CHAMP BELL Admitting Unavailable CHAMP BELL Primary [...] OAKES Primary Care Unavailable HOY ., DR AOKES Attending Unavailable HOY ., DR OAKES Admitting Unavailable [place], DR MAY Silverman Consulting Unavailable CRYSTAL PEGN Consulting Unavailable HOY ., DR OAKES Primary Care Unavailable CRYSTAL PENG Attending Unavailable CRYSTAL PENG Admitting Unavailable Champ Bell MD Primary Care Provider Unavailable Primary Care Provider UnavailOPAL Mcneal Attending Unavailable ZORIADA, MARIO R Referring Unavailable SHITAL FRITZ Attending [...] RAULSHWETHA Attending Unavailable ZORAIDA, MARIO Attending Unavailable ZORAIDA, MARIO Attending Unavailable Medications Current Medications Medication Drug Class(es) Dates Sig (Normalized) Sig (Original) acetaminophen 325 mg / HYDROcodone bitartrate 5 mg oral tablet (1 source) Opioid Agonist Start: 07-03-2020 [place] 325 mg-5 mg oral tablet 1 tab(s), [...] Start: 08-27-2021 take 2 tablets by mo ut twice daily at mealtime metFORMIN (GLUCOPHAGE-XR) 500 [...] 05-07-2023 Unclassified (1 source) T2DM IN Onset: 04-15-2024 Past or Other Problems Problem Classification Problem [...] 06-22 C PEPTIDE 5.70 ng/mL High 0.81-3.85 [facility] Comment on above: Result Comment: NOTE Test Performed By: [facility] [address] [place] [address] Licensed Occupational Therapy Assistant: Fina Cruz III #[id number] Performed By: #### 2 345-7 #### [facility] ([id number]) [address] [place] [address], [address] [place] [address] GLUCOSEon 06-23-2023 Glucose [Mass/Vol] 168 mg/dL High 65-99 [facility] Comment on above: Performed By: #### 2 345-7 #### [facility] ([id number]) [address] [place] [address], [address] [place] [address] Glutamate decarboxylase 65 A b IA Qn (S)on 06-23-2023 LATOYA ANTIBODY <5.0 Normal 0.0-5.0 [facility] Comment on above: Result Comment: NOTE INTERPRETIVE INFORMATION: Glutamic Acid Decarboxylase Antibody A value greater than 5.0 IU/mL is considered positive for Glutamic Acid Decarboxylase Antibody (LATOYA Ab). This assay is intended for the semi-quantitative determination of the LATOYA Ab in human serum. Results should be interpreted within the context of clinical symptoms. Performed By: [facility] [address] [place] [address] Licensed Occupational Therapy Assistant: Mark Fitzpatrick MD, PhD CLIA Number: [id number] Performed By: #### 2 345-7 #### [facility] ([id number]) [address] [place] [address], [facility] [address] [place] [address] Reference Lab Test IDon 06-08 Insulinoma Ab 2 See Below Normal [facility] Comment on above: Result Comment: NOTE [...] Clinical correlation is required. Test Performed By: [employer] [address] [place] [address] Licensed Occupational Therapy Assistant: Vaibhav Julian III, M.D. CLIA #[id number] Performed By: #### 2 345-7 #### [facility] ([id number]) [address], [address] [place] [address] CBC without diffon Hematocrit (Bld) [Volume fraction] 40.1 % [facility] Hemoglobin (Bld) [Mass/Vol] 12.8 g/dL [facility] Platelets (Bld) [#/Vol] 305 10*3/uL [facility] Rbc Mcv (Fl) By Automated Count 82.2 [facility] Free Cell DNAon 2023 Free Cell Dna no call [facility] HIV 1&2 AB/AG Screen (P24 AG )on 04-01-2023 HIV 1&2 AB/AG Negative [facility] Hemoglobin A1con 04-01-2023 HbA1c (Bld) [Mass fraction] 7.9 % Abnormal 4.0 - 6.0 % [facility] Interpretation and review of laboratory results Abnormal [facility] Hepatitis B surface antigeno n 04-01-2023 Hepatitis B Surface Antigen Negative [facility] No Panel Informationon 04-01 [facility] Rubella IGG immune statuson 04-01-2023 Rubella immune IgG immune [facility] Syphilis Total(Unknown Syphi lis Status)on 04-01-2023 Syphilis Non-Reactive [facility] TSHon 04-01-2023 Thyroid Stimulating (3Rd Generation) Hormone/ Tsh 1.051 [facility] TSH Qn 1.05 m[IU]/L [facility] Type and screenon 04-01-2023 Abo/Rh(D) Positive [facility] Urine Cultureon 04-01-2023 Bacteria identified Cx Nom (U) no growth [facility] [place][note 2] [facility] Covid-19 PCR (CVDTBH)on 05-09 SARS-CoV-2 (COVID-19) RNA EZEKIEL+probe Ql (Unsp spec) Not detected Normal NOT DETECTED [facility] Comment on above: Result Comment: This test is not yet approved or cleared by the [place] FDA. When there are no FDA-approved or cleared tests available, and other criteria are met, FDA can make tests available under an emergency access mechanism called an Emergency Use Authorization (EUA). The EUA for this test is supported by the [place] of Health and Human Service's (HHS's) declaration [...] SARS-CoV-2. Performed By: #### C VDTBH #### [facility] [address] [place] [address] Dr. Rosemary Ames GROUP A STREP CULTUREon 05-09 S. pyogenes Ag Ql (Unsp spec) Culture Observations: NEGATIVE FOR GROUP A STREPTOCOCCUS. Normal [facility] Comment on above: Performed By: #### T 7, LIPID, TSH, CMADM, BNP, CMP #### [facility] [address] [place] [address] Dr. Rosemary Ames INFLUENZA A AND B AGon 05-31 INFLUANEGH SEE BELOW Normal [facility] Comment on above: Result Comment: Nega tive for Flu A protein angiten. Infection due to Flu A cannot be ruled out. Flu A angiten in the sample may be below the detection limit of the test. Performed By: #### I NFLUAB #### [facility] [address] [place] [address] Dr. Rosemary Ames INFLUBNEGH SEE BELOW Normal [facility] Comment on above: Result Comment: Nega tive for Flu B protein antigen. Infection due to Flu B cannot be ruled out. Flu B antigen in the sample may be below the detection limit of the test. Performed By: #### I NFLUAB #### [facility] [address] [place] [address] Dr. Rosemary Ames INFLUENZA A AG Negative Normal NEGATIVE SEE COMMENT [facility] Comment on above: Performed By: #### I NFLUAB #### [facility] [address] [place] [address] Dr. Rosemary Ames INFLUENZA B AG Negative Normal NEGATIVE SEE COMMENT [facility] Comment on above: Performed By: #### I NFLUAB #### [facility] [address] [place] [address] Dr. Rosemary Ames STREPT SCREENon 05-31-2022 STREP SCREEN A Negative Normal NEGATIVE [facility] Comment on above: Performed By: #### E RUR #### [facility] [address] [place] [address] Dr. Rosemary Ames SYMPTOMATIC COVID-19 ANTIGEN on 05-31-2022 EUA Statement SEE BELOW Normal [facility] Comment on above: Result Comment: This [...] 7, LIPID, TSH, CMADM, BNP, CMP #### [facility] [address] [place], [place] [id number] Dr. Rosemary Ames SARS-CoV-2 (COVID-19) RNA EZEKIEL+probe Ql (Unsp spec) Negative Normal NEGATIVE [facility] Comment on above: Performed By: #### T 7, LIPID, TSH, CMADM, BNP, CMP #### [facility] [address] [place], [place] [id number] Dr. Rosemary Ames ECHOCARDIO M/2D COMPLETEon 0 04-10-2022 ECHOCARDIO M/2D COMPLETE Patient: TESS ASHLEY Exam Date: 04/10/2022 : 1995 Gender:F Ordering : DR CHAMP BELL . Admission #: [id number] Family : Order #: [id number] CLICK HERE TO VIEW EXAM ECHOCARDIOGRAM REPORT [...] M.D. on 04/10/2022 at 17:40 Normal [facility] CBC AUTO DIFFon 03-13-2022 BASO # 0.0 103/ul Normal 0.0-0.1 [facility] Comment on above: Performed By: #### A 1C #### [facility] [address] [address] [address] Rosemary Ames Basophils/100 WBC (Bld) 0.3 % Normal 0.2-2.0 [facility] Comment on above: Performed By: #### A 1C #### [facility] [address] [place] [address] Dr. Rosemary Ames EO # 0.0 103/ul Normal 0.0-0.7 [facility] Comment on above: Performed By: #### A 1C #### [facility] [address] [address] [address] Rosemary Ames Eosinophils/100 WBC (Bld) 0.5 % Critically low 0.9-7.0 [facility] Comment on above: Performed By: #### A 1C #### [facility] [address] [address] [address] Rosemary Ames Erythrocyte distribution width (RBC) [Ratio] 14.5 % Normal 11.0-15.0 [facility] Comment on above: Performed By: #### A 1C #### [facility] [address] [place] [address] Dr. Rosemary Ames Hematocrit (Bld) [Volume fraction] 39.7 % Normal 36.0-48.0 [facility] Comment on above: Performed By: #### A 1C #### [facility] [address] [place] [address] Dr. Rosemary Ames Hemoglobin (Bld) [Mass/Vol] 12.9 g/dL Normal 12.0-16.0 [facility] Comment on above: Performed By: #### A 1C #### [facility] [address] [place] [address] Dr. Rosemary Ames IG # 0.03 10e3/ul Normal 0.00-0.03 [facility] Comment on above: Performed By: #### A 1C #### [facility] [address] [place] [address] Dr. Rosemary Ames IG % 0.4 % Normal 0.0-0.5 [facility] Comment on above: Performed By: #### A 1C #### [facility] [address] [place] [address] Dr. Rosemary Ames LYMPH # 0.5 103/ul Critically low 1.2-3.8 [facility] Comment on above: Performed By: #### A 1C #### [facility] [address] [place] [address] Dr. Rosemary Ames Lymphocytes/100 WBC (Bld) 6.6 % Critically low 20.5-60.0 [facility] Comment on above: Performed By: #### A 1C #### [facility] [address] [place] [address] Dr. Rosemary Ames MANUAL DIFF REQ NO Normal [facility] Comment on above: Performed By: #### A 1C #### [facility] [address] [place] [address] Dr. Rosemary Ames MCH (RBC) [Entitic mass] 25.1 pg Critically low 26.7-34.0 [facility] Comment on above: Performed By: #### A 1C #### [facility] [address] [address] [address] Rosemary Ames MCHC (RBC) [Mass/Vol] 32.5 g/dL Normal 29.9-35.2 [facility] Comment on above: Performed By: #### A 1C #### [facility] [address] [address] [address] Rosemary Ames MCV (RBC) [Entitic vol] 77.2 fL Critically low 81.0-99.0 [facility] Comment on above: Performed By: #### A 1C #### [facility] [address] [address] [address] Rosemary Ames MONO # 0.7 103/ul Normal 0.3-0.8 [facility] Comment on above: Performed By: #### A 1C #### [facility] [address] [place] [address] Dr. Rosemary Ames Monocytes/100 WBC (Bld) 9.3 % Normal 1.7-12.0 [facility] Comment on above: Performed By: #### A 1C #### [facility] [address] [address] [address] Rosemary Ames NEUT # 6.2 103/ul Normal 1.4-6.5 [facility] Comment on above: Performed By: #### A 1C #### [facility] [address] [address] [address] Rosemary Ames Neutrophils/100 WBC (Bld) 82.9 % Critically high 43.0-75.0 [facility] Comment on above: Performed By: #### A 1C #### [facility] [address] [address] [address] Rosemary Ames Platelet mean volume (Bld) [Entitic vol] 9.8 fL Normal 9.5-13.5 [facility] Comment on above: Performed By: #### A 1C #### [facility] [address] [address] [address] Rosemary Ames PLT 246 103/ul Normal 150-450 [facility] Comment on above: Performed By: #### A 1C #### [facility] [address] [place] [address] Dr. Rosemary Ames RBC 5.14 106/ul Normal 4.20-5.40 [facility] Comment on above: Performed By: #### A 1C #### [facility] [address] [place] [address] Dr. Rosemary Ames WBC 7.4 103/ul Normal 4.0-11.0 [facility] Comment on above: Performed By: #### A 1C #### [facility] [address] [place] [address] Dr. Rosemary Ames Covid-19 PCR ([facility])on SARS-CoV-2 (COVID-19) RNA EZEKIEL+probe Ql (Unsp spec) Not detected Normal NOT DETECTED [facility] Comment on above: Result Comment: When diagnostic [...] for this test is supported by the [place] of Health and Human Service's declaration that [...] used). Performed By: #### A 1C #### [facility] [address] [place] [address] Dr. Rosemary Ames D-DIMERon 03-13-2022 D-DIMER 0.26 mg/L FEU Normal <=0.59 [facility] Comment on above: Performed By: #### T 7, LIPID, TSH, CMADM, BNP, CMP #### [facility] [address] [place] [address] Dr. Rosemary Ames D-DIMER COMMENTS SEE BELOW Normal [facility] Comment on above: Result Comment: Incr [...] 7, LIPID, TSH, CMADM, BNP, CMP #### [facility] [address] [place] [address] Dr. Rosemary Ames ER URINE PROFILEon 3 Bilirubin Ql (U) Negative Normal NEGATIVE [facility] Comment on above: Performed By: #### E RUR #### [facility] [address] [place] [address] Dr. Rosemary Ames Clarity (U) CLEAR Normal CLEAR [facility] Comment on above: Performed By: #### E RUR #### [facility] [address] [place] [address] Dr. Rosemary Ames Color (U) LT. YELLOW Normal YELLOW [facility] Comment on above: Performed By: #### E RUR #### [facility] [address] [place] [address] Dr. Rosemary KUMARBraulio A micrscopic examination will be performed if indicated. Normal [facility] Comment on above: Performed By: #### E RUR #### [facility] [address] [place] [address] Dr. Rosemary Ames Glucose Ql (U) Negative Normal NEGATIVE [facility] Comment on above: Performed By: #### E RUR #### [facility] [address] [place] [address] Dr. Rosemary Ames Hemoglobin Ql (U) Negative Normal NEGATIVE [facility] Comment on above: Performed By: #### E RUR #### [facility] [address] [place] [address] Dr. Rosemary Ames Ketones Ql (U) Negative Normal NEGATIVE [facility] Comment on above: Performed By: #### E RUR #### [facility] [address] [place] [address] Dr. Rosemary Ames LEUKOCYTES Negative Normal NEGATIVE [facility] Comment on above: Performed By: #### E RUR #### [facility] [address] [place] [address] Dr. Rosemary Ames Nitrite Ql (U) Negative Normal NEGATIVE [facility] Comment on above: Performed By: #### E RUR #### [facility] [address] [place] [address] Dr. Rosemary Ames pH (U) 6.0 [pH] Normal 5-9 [facility] Comment on above: Performed By: #### E RUR #### [facility] [address] [place] [address] Dr. Rosemary Ames SPEC GRAVITY 1.015 Normal 1.005-<=1.025 [facility] Comment on above: Performed By: #### E RUR #### [facility] [address] [place] [address] Dr. Rosemary Ames UA PROTEIN Negative Normal NEGATIVE/ TRACE [facility] Comment on above: Performed By: #### E RUR #### [facility] [address] [place] [address] Dr. Rosemary Ames UR MICRO IND NOT INDICATED Normal [facility] Comment on above: Performed By: #### E RUR #### [facility] [address] [place] [address] Dr. Rosemary Ames Urobilinogen Qn (U) 0.2 {Vincent'U}/dL Normal 0.2 - 1. 0 [facility] Comment on above: Performed By: #### E RUR #### [facility] [address] [place] [address] Dr. Rosemary Ames INFLUENZA A AND B AGon 03-13 INFLUANEGH SEE BELOW Normal [facility] Comment on above: Result Comment: Nega tive for Flu A protein angiten. Infection due to Flu A cannot be ruled out. Flu A angiten in the sample may be below the detection limit of the test. Performed By: #### E RUR #### [facility] [address] [place] [address] Dr. Rosemary Ames [facility] SEE BELOW Normal [facility] Comment on above: Result Comment: Nega tive for Flu B protein antigen. Infection due to Flu B cannot be ruled out. Flu B antigen in the sample may be below the detection limit of the test. Performed By: #### E RUR #### [facility] [address] [place] [address] Dr. Rosemary Ames INFLUENZA A AG Negative Normal NEGATIVE SEE COMMENT [facility] Comment on above: Performed By: #### E RUR #### [facility] [address] [place] [address] Dr. Rosemary Ames INFLUENZA B AG Negative Normal NEGATIVE SEE COMMENT [facility] Comment on above: Performed By: #### E RUR #### [facility] [address] [place] [address] Dr. Rosemary Ames LACTATE/LACTIC ACIDon 2022 Lactate [Moles/Vol] 2.0 mmol/L Critically high 0.4-1.9 [facility] Comment on above: Performed By: #### A 1C #### [facility] [address] [place] [address] Dr. Rosemary Ames LIPASEon 03-13-2022 Lipase [Catalytic activity/Vol] 79.0 U/L Normal 73.0-393.0 [facility] Comment on above: Performed By: #### A 1C #### [facility] [address] [place] [address] Dr. Rosemary Ames PREG HCG QUALon 03-13-2022 , QUAL Negative Normal NEGATIVE [facility] Comment on above: Performed By: #### A 1C #### [facility] [address] [place] [address] Dr. Rosemary Ames PROF 14(COMP METB)on 023 Albumin [Mass/Vol] 4.1 g/dL Normal 3.4-5.0 [facility] Comment on above: Performed By: #### A 1C #### [facility] [address] [place] [address] Dr. Rosemary Ames Albumin/Globulin [Mass ratio] 1.1 {ratio} Normal [facility] Comment on above: Performed By: #### A 1C #### [facility] [address] [place] [address] Dr. Rosemary Ames ALP [Catalytic activity/Vol] 77 U/L Normal 46-116 [facility] Comment on above: Performed By: #### A 1C #### [facility] [address] [place] [address] Dr. Rosemary Ames ALT [Catalytic activity/Vol] 149 U/L Critically high 14-59 [facility] Comment on above: Performed By: #### A 1C #### [facility] [address] [place] [address] Dr. Rosemary Ames Anion gap [Moles/Vol] 16.0 mmol/L Normal [facility] Comment on above: Performed By: #### A 1C #### [facility] [address] [place] [address] Dr. Rosemary Ames AST [Catalytic activity/Vol] 82 U/L Critically high 15-37 [facility] Comment on above: Performed By: #### A 1C #### [facility] [address] [place] [address] Dr. Rosemary Ames Bilirubin [Mass/Vol] 1.0 mg/dL Normal 0.2-1.0 [facility] Comment on above: Performed By: #### A 1C #### [facility] [address] [place] [address] Dr. Rosemary Ames Calcium [Mass/Vol] 9.1 mg/dL Normal 8.5-10.1 [facility] Comment on above: Performed By: #### A 1C #### [facility] [address] [place] [address] Dr. Rosemary Ames Chloride [Moles/Vol] 96 mmol/L Critically low 98-107 [facility] Comment on above: Performed By: #### A 1C #### [facility] [address] [place] [address] Dr. Rosemary Ames CO2 [Moles/Vol] 25.7 mmol/L Normal 21.0-32.0 [facility] Comment on above: Performed By: #### A 1C #### [facility] [address] [address] [address] Rosemary Ames Creatinine [Mass/Vol] 0.78 mg/dL Normal 0.55-1.02 [facility] Comment on above: Performed By: #### A 1C #### [facility] [address] [address] [address] Rosemary Ames EGFR-AF ZIMBABWEAN >60 Normal >=60 [facility] Comment on above: Performed By: #### A 1C #### [facility] [address] [place] [address] Dr. Rosemary Ames EGFR-NON AF ZIMBABWEAN >60 Normal >=60 [facility] Comment on above: Performed By: #### A 1C #### [facility] [address] [place] [address] Dr. Rosemary Ames Globulin (S) [Mass/Vol] 3.9 g/dL Normal [facility] Comment on above: Performed By: #### A 1C #### [facility] [address] [address] [address] Rosemary Ames Glucose [Mass/Vol] 190 mg/dL Critically high 74-106 [facility] Comment on above: Performed By: #### A 1C #### [facility] [address] [place] [address] Dr. Rosemary Ames Potassium [Moles/Vol] 3.7 mmol/L Normal 3.5-5.1 [facility] Comment on above: Performed By: #### A 1C #### [facility] [address] [address] [address] Rosemary Ames Protein [Mass/Vol] 8.0 g/dL Normal 6.4-8.2 [facility] Comment on above: Performed By: #### A 1C #### [facility] [address] [place] [address] Dr. Rosemary Ames Sodium [Moles/Vol] 134 mmol/L Critically low 136-145 [facility] Comment on above: Performed By: #### A 1C #### [facility] [address] [address] [address] Rosemary Ames Urea nitrogen [Mass/Vol] 9.0 mg/dL Normal 7.0-18.0 [facility] Comment on above: Performed By: #### A 1C #### [facility] [address] [address] [address] Rosemary Ames Urea nitrogen/Creatinine [Mass ratio] 11.5 mg/mg Normal [facility] Comment on above: Performed By: #### A 1C #### [facility] [address] [address] [address] Rosemary Ames TROPONIN, HIGH SENSITIVITYon 03-13-2022 HSTROP <4.0 Normal 4.0-51.3 [facility] Comment on above: Result Comment: CUT- OFF POINTS HAVE BEEN ESTABLISHED BASED ON THE FOURTH UNIVERSAL DEFINITIONS OF MYOCARDIAL INFARCTION. THE UPPER REFERENCE LIMIT (URL) OF TROPONIN, DEFINED THE 99TH PERCENTILE OF cTnI DISTRIBUTION IN A REFERENCE POPULATION, HAS BEEN CONFIRMED THE DECISION THRESHOLD FOR OK DIAGNOSIS. Previously reported as: 3.9 On 03/13/2022 18:24 By DM9 Performed By: #### A 1C #### [facility] [address] [place] [address] Dr. Rosemary Ames TSHon 03-13-2022 TSH 0.440 uIU/mL Normal 0.358-3.740 [facility] Comment on above: Performed By: #### A 1C #### [facility] [address] [place] [address] Dr. Rosemary Ames XR CHEST 1 Von [...] TUAN LEWIS Date: 2022-03-13 18:59 Normal [facility] INSULINon 12-11-2021 Insulin 40.7 uIU/mL Critically high 2.6-24.9 [facility] Comment on above: Performed By: #### A 1C #### [facility] [address] [address] [address] Rosemary Ames BNPon 12-10-2021 NT PRO BNP <11.1 Normal <=450.0 [facility] Comment on above: Performed By: #### T 7, LIPID, TSH, CMADM, BNP, CMP #### [facility] [address] [address] [address] Rosemary Ames CARDIAC RY ADMITon 022 CK [Catalytic activity/Vol] 80 U/L Normal 26-192 [facility] Comment on above: Performed By: #### T 7, LIPID, TSH, CMADM, BNP, CMP #### [facility] [address] [place] [address] Dr. Rosemary Ames CK.MB [Mass/Vol] 0.56 ng/mL Normal <=3.60 [facility] Comment on above: Performed By: #### T 7, LIPID, TSH, CMADM, BNP, CMP #### [facility] [address] [address] [address] Rosemary Ames HSTROP 5.3 pg/mL Normal 4.0-51.3 [facility] Comment on above: Result Comment: CUT- OFF POINTS HAVE BEEN ESTABLISHED BASED ON THE FOURTH UNIVERSAL DEFINITIONS OF MYOCARDIAL INFARCTION. THE UPPER REFERENCE LIMIT (URL) OF TROPONIN, DEFINED THE 99TH PERCENTILE OF cTnI DISTRIBUTION IN A REFERENCE POPULATION, HAS BEEN CONFIRMED THE DECISION THRESHOLD FOR OK DIAGNOSIS. Performed By: #### T 7, LIPID, TSH, CMADM, BNP, CMP #### [facility] [address] [address] [address] Rosemary Ames RADHA 26 ng/mL Normal 9-82 [facility] Comment on above: Performed By: #### T 7, LIPID, TSH, CMADM, BNP, CMP #### [facility] [address] [address] [address] Rosemary Ames CBC AUTO DIFFon 12-10-2021 BASO # 0.0 103/ul Normal 0.0-0.1 [facility] Comment on above: Performed By: #### E RUR #### [facility] [address] [place] [address] Dr. Rosemary Ames Basophils/100 WBC (Bld) 0.4 % Normal 0.2-2.0 [facility] Comment on above: Performed By: #### E RUR #### [facility] [address] [place] [address] Dr. Rosemary Ames EO # 0.1 103/ul Normal 0.0-0.7 [facility] Comment on above: Performed By: #### E RUR #### [facility] [address] [place] [address] Dr. Rosemary Ames Eosinophils/100 WBC (Bld) 1.0 % Normal 0.9-7.0 [facility] Comment on above: Performed By: #### E RUR #### [facility] [address] [place] [address] Dr. Rosemary Ames Erythrocyte distribution width (RBC) [Ratio] 13.7 % Normal 11.0-15.0 [facility] Comment on above: Performed By: #### E RUR #### [facility] [address] [place] [address] Dr. Rosemary Ames Hematocrit (Bld) [Volume fraction] 40.9 % Normal 36.0-48.0 [facility] Comment on above: Performed By: #### E RUR #### [facility] [address] [place] [address] Dr. Rosemary Ames Hemoglobin (Bld) [Mass/Vol] 13.0 g/dL Normal 12.0-16.0 [facility] Comment on above: Performed By: #### E RUR #### [facility] [address] [place] [address] Dr. Rosemary Ames IG # 0.03 10e3/ul Normal 0.00-0.03 [facility] Comment on above: Performed By: #### E RUR #### [facility] [address] [place] [address] Dr. Rosemary Ames IG % 0.4 % Normal 0.0-0.5 [facility] Comment on above: Performed By: #### E RUR #### [facility] [address] [place] [address] Dr. Rosemary Ames LYMPH # 2.4 103/ul Normal 1.2-3.8 [facility] Comment on above: Performed By: #### E RUR #### [facility] [address] [place] [address] Dr. Rosemary Ames Lymphocytes/100 WBC (Bld) 30.3 % Normal 20.5-60.0 [facility] Comment on above: Performed By: #### E RUR #### [facility] [address] [place] [address] Dr. Rosemary Ames MANUAL DIFF REQ NO Normal [facility] Comment on above: Performed By: #### E RUR #### [facility] [address] [place] [address] Dr. Rosemary Ames MCH (RBC) [Entitic mass] 25.8 pg Critically low 26.7-34.0 [facility] Comment on above: Performed By: #### E RUR #### [facility] [address] [place] [address] Dr. Rosemary Ames MCHC (RBC) [Mass/Vol] 31.8 g/dL Normal 29.9-35.2 [facility] Comment on above: Performed By: #### E RUR #### [facility] [address] [place] [address] Dr. Rosemary Ames MCV (RBC) [Entitic vol] 81.2 fL Normal 81.0-99.0 [facility] Comment on above: Performed By: #### E RUR #### [facility] [address] [place] [address] Dr. Rosemary Ames MONO # 0.5 103/ul Normal 0.3-0.8 [facility] Comment on above: Performed By: #### E RUR #### [facility] [address] [place] [address] Dr. Rosemary Ames Monocytes/100 WBC (Bld) 6.1 % Normal 1.7-12.0 [facility] Comment on above: Performed By: #### E RUR #### [facility] [address] [place] [address] Dr. Rosemary Ames NEUT # 5.0 103/ul Normal 1.4-6.5 [facility] Comment on above: Performed By: #### E RUR #### [facility] [address] [place] [address] Dr. Rosemary Ames Neutrophils/100 WBC (Bld) 61.8 % Normal 43.0-75.0 [facility] Comment on above: Performed By: #### E RUR #### [facility] [address] [place] [address] Dr. Rosemary Ames Platelet mean volume (Bld) [Entitic vol] 9.9 fL Normal 9.5-13.5 [facility] Comment on above: Performed By: #### E RUR #### [facility] [address] [place] [address] Dr. Rosemary Ames PLT 284 103/ul Normal 150-450 [facility] Comment on above: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 (BldA) [Mass fraction] 97 % Tyler Summers [facility] 08-25-2021 00:00-0400 Systolic blood pressure 149 mm[Hg] Tyler Melina [facility] 08-24-2021 22:50-0400 Body temperature 100.22 [degF] [facility] Encounters Encounter Date Encounter Type Care Provider Facility Start: 08-11-2023 End: 08-11-2023 ambulatory MARIO ZORAIDA Not Available Start: 08-05-2023 End: 08-05-2023 ambulatory MARIO ZORAIDA Not Available Start: 07-29-2023 End: 07-29-2023 ambulatory [facility] Start: 07-28-2023 End: 07-28-2023 ambulatory MARIO ZORAIDA Not Available Start: 07-23-2023 End: 07-23-2023 ambulatory [facility] Start: 07-22-2023 End: 07-22-2023 [facility]: 07-22-2023 End: 07-22-2023 ambulatory SHWETHA CARTER Not Available Start: 07-14-2023 End: 07-14-2023 ambulatory MARIO ZORAIDA Not Available Start: 07-10-2023 End: 07-10-2023 ambulatory [facility] Start: 06-30-2023 End: 06-30-2023 ambulatory [facility] Start: 06-23-2023 End: 06-24-2023 ambulatory [facility] Start: 06-23-2023 End: 06-23-2023 ambulatory [facility] Start: 06-11-2023 End: 06-12-2023 ambulatory MARIO CONWAY [facility] Start: 06-10-2023 End: 06-10-2023 ambulatory MARIO CONWAY Not Available Start: 06-09-2023 Orders Only Leana franco MD Work Phone: [facility] Start: 06-04-2023 Orders Only Leana franco MD Work Phone: [facility] Comment on above: Type 2 diabetes naz itus in , second trimester (Primary Dx) Start: 05-29-2023 End: 05-29-2023 ambulatory [facility] Start: 05-29-2023 End: 05-29-2023 Office outpatient visit 25 minutes Leana Burr MD Work Phone: [facility] Comment on above: Type 2 diabetes naz itus in , second trimester (Primary Dx) Start: 05-20-2023 End: 05-20-2023 Orders Only Mary Guidry OTOLARYNGOLOGY REP-CNM Work Phone: [facility] Comment on above: Type 2 diabetes naz itus in , second trimester (Primary Dx) Start: 05-20-2023 End: 05-20-2023 Office outpatient new 45 minutes Leana Burr MD Work Phone: [facility] Comment on above: Type 2 diabetes naz itus in , second trimester (Primary Dx) Start: 05-13-2023 Telephone encounter Joann pastrana RN Work Phone: [facility] Start: 05-12-2023 Telephone encounter Joann pastrana RN Work Phone: [facility] Start: 05-12-2023 End: 05-12-2023 ambulatory SHWETHA RAUL Not Available Start: 05-08-2023 Orders Only Queta Zazueta [facility] Comment on above: Type 2 diabetes naz itus in , second trimester (Primary Dx) Start: 05-07-2023 End: 05-07-2023 Office outpatient visit 25 minutes Opal Heath OTOLARYNGOLOGY REP-BIOMEDICAL MANAGER Work Phone: [facility] Comment on above: Type 2 diabetes naz itus in , second trimester (Primary Dx); Insulin pump in place; HTN in , chronic Start: 05-07-2023 End: 05-07-[address] Work Phone: [facility] Comment on above: Type 2 diabetes naz itus in , second trimester (Primary Dx); Pre-existing type 2 diabetes mellitus during in first trimester Start: 04-23-2023 Chart abstracting Opal falk OTOLARYNGOLOGY REP-BIOMEDICAL MANAGER Work Phone: [facility] Start: 04-23-2023 Telephone encounter Danyell Ortiz RN Ut ternal- [facility] Start: 04-17-2023 End: 04-17-2023 Office outpatient visit 15 minutes Mario Zoraida DO Work Phone: [facility] Comment on above: Bleeding in early pr egnancy; Follow-up exam Start: 04-17-2023 End: 04-17-2023 ambulatory MARIO ZORAIDA Not Available Start: 04-14-2023 End: 04-14-2023 ambulatory MARIO ZORAIDA [...] Start: 08-27-2021 End: 08-27-2021 ambulatory CH[facility] BELL [facility] Start: 08-27-2021 End: 08-27-2021 Office outpatient new 60 minutes Champ Bell MD Work Phone: [facility] Comment on above: Type 2 diabetes naz itus with hyperglycemia, unspecified whether retirement insulin use (HCC) (Primary Dx); Thyroid disorder; Hair loss Start: 08-24-2021 End: 08-25-2021 Emergency department patient visit Tyler Summers [facility] Start: 08-15-2021 End: 08-15-2021 ambulatory GREGORY FAN . Facility:[facility] Start: 06-13-2021 End: 06-14-[address] CHAMP BELL . Facility:[facility] Start: 05-04-2021 Transcribe Orders Champ Bell MD Work Phone: [facility] Comment on above: Thyroid disorder (Pr imary Dx); Hair loss Procedures Date Procedure Procedure Detail Performing Clinician Start: 05-12-2023 Microscopic observat ion [Identifier] in Cervix by Cyto stain Leana Burr MD Work Phone: Start: 04-01-2023 Antibody screen Bebe Heath OTOLARYNGOLOGY REP-BIOMEDICAL MANAGER Work Phone: Start: 04-01-2023 Bacteria identified in [...] [facility] Start: 05-28-2024 Tobacco Screening Tobacco Screening [facility] Start: 05-07-2024 Adult BMI Screening Adult BMI Screen ing [facility] Start: 05-07-2024 Tobacco Screening Tobacco Screening [facility] Start: 05-07-2024 End: 05-07-2024 US MFM with or without consult US MFM with or without consult Imaging Routine Type 2 diabetes mellitus in , second trimester Expected: 05/07/2024 (Approximate), Expires: 05/07/2024 [facility] Work Phone: Comment on above: Expected: 05/07/2024 (Approximate), Expires: 05/07/2024 Start: 11-09-2023 Influenza vaccination Influenza Vacc ine [facility] Start: 06-11-2023 End: 06-11-2023 Patient encounter procedure 06/11/2023 1:00 PM EDT Appointment [facility] Imaging [address] [place] [address] [facility] Start: 06-10-2023 End: 06-10-2023 Patient encounter procedure 06/10/2023 3:00 PM EDT Office Visit [facility] [address] [place] [address] Leana Burr MD [address] [place] [address] [facility] Start: 06-04-2023 End: 06-04-2023 Patient encounter procedure 06/04/2023 10:45 AM EDT Office Visit [facility] [address] [facility] [address] [place] [id number] Leana Burr MD [address] [place] [address] [facility] Start: 05-29-2023 End: 05-29-2023 Patient encounter procedure 05/29/2023 10:45 AM EDT Office Visit [facility] [address] [facility] [address] [place] [address] Leana Burr MD [address] [place] [address] [facility] Start: 05-20-2023 End: 05-20-2023 Telemedicine consultation with patient 05/20/2023 8:00 AM EDT Telemedicine [facility] [address] [place] [id number] Leana Burr MD [address] [place] [place] [address] [facility] Start: 05-12-2023 End: 05-12-2023 Patient encounter procedure 05/12/2023 8:30 AM EST Routine [facility] [address] [place] [address] Shwetha Carter PA [address] [place] [address] [facility] Start: 05-07-2023 End: 05-07-2023 Patient encounter procedure 05/07/2023 3:00 PM EST Office Visit [facility] [address] [place] [address] Opal Heath, [facility] [address] [place] [address] [facility] Start: 05-07-2023 End: 05-07-2023 ambulatory 05/07/2023 1:00 PM EST Support Visit [facility] [address] [place] [address] Shital Fritz, RD [address] [facility] [address] [place] [address] [facility] Start: 11-08-2022 Influenza vaccination Influenza Vacc ine [facility] Start: 11-27-2021 End: 11-27-2021 Patient encounter procedure 11/27/2021 Office Visit Endocrinology Gregorio Floyd MD [address] [place] [address] [facility] Start: 11-27-2021 Hemoglobin A1c measurement A1C [facility] Start: 11-08-2021 Influenza vaccination Sequenti al Influenza Vaccine (Season Ended) [facility] Start: 06-25-2021 End: 06-25-2021 Patient encounter procedure 06/25/2021 Office Visit Endocrinology Gregorio Floyd MD [facility] [place] [address] [facility] Start: 11-08-2020 Influenza vaccination Sequenti al Influenza Vaccine (#1) [facility] Start: 11-14-2015 Screening for malign ant neoplasm of cervix Pap Smear [facility] Start: 2013 DTaP,Tdap and Td Vaccines (1 - Tdap) DTaP,Tdap and Td Vaccines (1 - Tdap) [facility] Start: 2012 Adult BMI Follow Up Plan Adult BMI Follow Up Plan [facility] Start: 2012 Adult BMI Screening Adult BMI Screen ing [facility] Start: 2012 Diabetic foot examination Diabetic Foot Exam [facility] Start: 2012 Hepatitis C screening Hepatitis C Sc reening [facility] Start: 2009 HIV screening HIV Screening [facility] Start: 2006 Depression screening using PHQ-9 (Patient Health Questionnaire 9) score [facility] Start: 2006 Tobacco Screening Tobacco Screening [facility] Start: 2005 DTaP,Tdap and Td Vaccines (5 - Tdap) DTaP,Tdap and Td Vaccines (5 - Tdap) [facility] Start: 2004 Diabetic foot examination Foot Exam [facility] Start: 2004 Microalbumin measurement, urine, quantitative Urine Microalbumin [facility] Start: 2004 Ophthalmic examinati on and evaluation Ophthalmology Exam [facility] Start: 2000 Pneumococcal Vaccine : Ped or At-Risk (1 - PCV) Pneumococcal Vaccine: Ped or At-Risk (1 - PCV) [facility] Start: 11-14-1999 COVID-19 Vaccine (#1) COVID-19 Vacci ne (#1) [facility] Start: 11-14-1999 COVID-19 Vaccine (1) COVID-19 Vaccin e (1) [facility] Start: 1997 History and physical examination, annual for health maintenance Wellness Visit [facility] Start: 1994 Glaucoma screening Diabetic Op hthalmology Exam [facility] Start: 1994 Screening for malign ant neoplasm of cervix Pap Smear [facility] Start: 1994 Tetanus vaccination Tetanus: Every 1 0yrs [facility] Start: 1994 Urine screening for protein Urine Microalbumin [facility] End: 08-27-2022 C peptide [Mass/volume] in Serum or Plasma C-peptide Lab Routine Type 2 diabetes mellitus with hyperglycemia, unspecified whether director long term care insulin use (HCC) 1 Occurrences starting 08/27/2021 until 08/27/2022 [facility] Comment on above: 1 Occurrences starti ng 08/27/2021 until 08/27/2022 End: 05-19-2024 C-peptide C-peptide Lab Routine Type 2 diabetes mellitus in , second trimester 1 Occurrences starting 05/20/2023 until 05/19/2024 [facility] Comment on above: 1 Occurrences starti ng 05/20/2023 until 05/19/2024 End: 05-19-2024 GAD65 Ab assay GAD65 Ab assay Lab Routine Type 2 diabetes mellitus in , second trimester 1 Occurrences starting 05/20/2023 until 05/19/2024 [facility] Work Phone: Comment on above: 1 Occurrences starti ng 05/20/2023 until 05/19/2024 End: 08-27-2022 Glucose [Mass/volume] in Serum or Plasma Glucose Lab Routine Type 2 diabetes mellitus with hyperglycemia, unspecified whether retirement insulin use (HCC) 1 Occurrences starting 08/27/2021 until 08/27/2022 [facility] Comment on above: 1 Occurrences starti ng 08/27/2021 until 08/27/2022 End: 05-19-2024 Glucose [Mass/volume] in Serum or Plasma Glucose Lab Routine Type 2 diabetes mellitus in , second trimester 1 Occurrences starting 05/20/2023 until 05/19/2024 [facility] Comment on above: 1 Occurrences starti ng 05/20/2023 until 05/19/2024 Hepatic function 200 0 panel - Serum or Plasma Hepatic function panel Lab Routine Type 2 diabetes mellitus with hyperglycemia, unspecified whether director long term care insulin use (HCC) Ordered: 08/27/2021 [facility] Comment on above: Ordered: 08/27/2021 End: 05-19-2024 Insulinoma Associated Antibody 2 Insulinoma Associated Antibody 2 Lab Routine Type 2 diabetes mellitus in , second trimester 1 Occurrences starting 05/20/2023 until 05/19/2024 [facility] Comment on above: 1 Occurrences starti ng 05/20/2023 until 05/19/2024 End: 08-27-2022 Islet cell antibody measurement Anti-Islet Cell (GAD65) Antibody Lab Routine Type 2 diabetes mellitus with hyperglycemia, unspecified whether retirement insulin use (HCC) 1 Occurrences starting 08/27/2021 until 08/27/2022 [facility] Comment on above: 1 Occurrences starti ng 08/27/2021 until 08/27/2022 End: 08-27-2022 Lipid 1996 panel - Serum or Plasma Lipid Panel Lab Routine Type 2 diabetes mellitus with hyperglycemia, unspecified whether director long term care insulin use (HCC) 1 Occurrences starting 08/27/2021 until 08/27/2022 [facility] Comment on above: 1 Occurrences starti ng 08/27/2021 until 08/27/2022 Microalbumin measurement, urine, quantitative Microalbumin/Creatinine Ratio, UR Random Lab Routine Type 2 diabetes mellitus with hyperglycemia, unspecified whether retirement insulin use (HCC) Ordered: 08/27/2021 [facility] Work Phone: Comment on above: Ordered: 08/27/2021 Payers Date Payer Category Payer Medicaid [id number] 1994 Unknown [id number] 2.16. 840.1.152719.3.579.2.903 1994 Unknown [id number] 2.16.84 0.1.817309.3.579.2.593 1994 Unknown [id number] 2.16.84 0.1.294480.3.579.2.593 1994 Unknown [id number] 2.16.84 0.1.620901.3.579.2.593 1994 Unknown [id number] 2.16.84 0.1.403325.3.579.2.593 1994 Unknown [id number] 2.16.84 0.1.371861.3.579.2.593 1994 Unknown [id number] 2.16.84 0.1.287429.3.579.2.593 1994 Unknown [id number] 2.16.84 0.1.540228.3.579.2.593 1994 Unknown [id number] 2.16.84 0.1.722600.3.579.2.593 1994 Unknown [id number] 2.16.84 0.1.152775.3.579.2.593 1994 Unknown [id number] 2.16.84 0.1.708944.3.579.2.593 1994 Unknown [id number] 2.16.84 0.1.782105.3.579.2.593 1994 Unknown [id number] 2.16.84 0.1.391817.3.579.2.593 1994 Unknown [id number] 2.16.84 0.1.924001.3.579.2.593 1994 Unknown [id number] 2.16.8 40.1.631728.3.579.2.1286 1994 Unknown [id number] 2.16.8 40.1.947763.3.579.2.128 1994 Unknown [id number] 2.16.8 40.1.746738.3.579.2.128 1994 Unknown [id number] 2.16.8 40.1.434914.3.579.2.1285 1994 Unknown [id number] 2.16.8 40.1.543676.3.579.2.1285 1994 Unknown [id number] 2.16.8 40.1.670593.3.579.2.1285 1994 Unknown [id number] 2.16.8 40.1.783452.3.579.2.1285 1994 Unknown [id number] 2.16.8 40.1.576903.3.579.2.1285 1994 Unknown [id number] 2.16.8 40.1.884539.3.579.2.1285 1994 Unknown [id number] 2.16.8 40.1.208124.3.579.2.1285 1994 Unknown [id number] 2.16.8 40.1.041556.3.579.2.1285 1994 Unknown [id number] 2.16.8 40.1.782454.3.579.2.1285 1994 Unknown [id number] 2.16.8 40.1.495984.3.579.2.1285 1994 Unknown [id number] 2.16.84 0.1.450841.3.579.2.1258 1994 Unknown [id number] 2.16.84 0.1.330770.3.579.2.1258 1994 Unknown [id number] 2.16.84 0.1.583176.3.579.2.1258 1994 Unknown [id number] 2.16.84 0.1.791971.3.579.2.1258 1994 Unknown [id number] 2.16.84 0.1.781365.3.579.2.1258 1994 Unknown [id number] 2.16.84 0.1.519475.3.579.2.1258 1994 Unknown [id number] 2.16.84 0.1.819452.3.579.2.1258 1994 Unknown [id number] 2.16.84 0.1.395138.3.579.2.1258 1994 Unknown [id number] 2.16.84 0.1.663261.3.579.2.1258 1994 Unknown [id number] 2.16.84 0.1.993147.3.579.2.1259 1994 Unknown [id number] 2.16.84 0.1.907932.3.579.2.1259 1994 Unknown [id number] 2.16.840 .1.833638.3.579.2.1259 1959 Medicaid [id number] 1959 Unknown [id number] 1959 Unknown [id number] 1959 Unknown [id number] Social History Date Type Detail Facility Start: 04-23-2023 Tobacco smoking status VAIS Tobacco smoking consumption unknown [facility] Start: 1994 Sex Assigned At Not on file [facility] Start: 08-24-2021 Tobacco smoking status Never [facility] Start: 03-24-2023 End: 05-07-2023 Sex Assigned At Female [facility] Start: 08-17-2021 End: 08-27-2021 Exposure to SARS-CoV-2 (event) Not sure [facility] Start: 03-24-2023 End: 05-07-2023 Tobacco smoking status [facility] Never smoked tobacco [facility] Start: 04-17-2023 Alcohol intake Lifetime non-d jorge (finding) [facility] Start: 03-24-2023 End: 05-07-2023 History of Social function [facility] Start: [facility] Start: [facility] Sex Assigned At Female [facility] Start: 02-27-2023 Gender identity Identifies as female gender (finding) [facility] Start: 05-07-2023 Tobacco use and exposure Smokeless tobacco [facility] Start: 05-07-2023 End: 05-29-2023 Alcohol intake Ex-drinker (finding) [facility] Procedure Code Equipment Code Equipment Origin al Text Equipment Identifier Dates 1 each by Other route if needed [id number] Start: 03-11-2023 Use a new needle with each injection [id number] Start: 05-07-2023 Functional Status Date Assessment Result Facility 08-24-2021 Functional Status N/A [facility] Clinical Notes 08-24-2021 to 05-29-2023 Leana Burr MD - 05/29/2023 10:45 AM Maria A Burr MD - 05/20/2023 8:00 AM EDTTelephone Encounter - Joann Walsh RN - 05/13/2023 3:19 PM Donte Zazueta, OYSTER SORTER - 05/07/2023 3:00 PM EST Note Date & Type Note Facility 05-29-2023 History of Present illness Narrative [facility]- Diabetes Visit TELEMEDICINE VISIT: This is [...] of Delivery: 10/28/23. She is referred from [facility] who is managing along with us. She has had her diabetes education with [facility]. Please see media for full pump [...] History of Diabetic Retinopathy: unknown. Last seen Retail Customer Service Representative unknown History of peripheral neuropathy: none Medications [...] breakfast: try low sugar protein shakes or togolese yogurt if appetite lower in the AM. [...] to foot injury. : I agree with [facility] recommendations for care. NSTs twice weekly with weekly WEI starting at 32 weeks. Growth US every 4 weeks starting at 28 weeks. Tentative delivery by 39 weeks, but will defer to MFM. Follow up in 1 week. Following at least once per trimester with [facility] as well. LEANA BURR MD [facility] documented in this encounter [facility] 05-20-2023 History of Present illness Narrative [facility]- Diabetes Visit Tess Pfeiffer is a [...] of Delivery: 10/28/23. She is referred from [facility] who is managing along with us. She has had her diabetes education with [facility]. Please see media for full pump [...] History of Diabetic Retinopathy: unknown. Last seen Retail Customer Service Representative unknown History of peripheral neuropathy: none Medications [...] History: Diagnosis Date Anxiety Depression Diabetes mellitus ([facility]) Disease of thyroid gland Hypertension No [...] 10/28/23. She has had diabetes education with [facility]. We reviewed the following We have [...] breakfast: try low sugar protein shakes or togolese yogurt if appetite lower in the AM. [...] with MFM as well. LEANA BURR MD [facility] documented in this encounter [facility] 05-13-2023 Miscellaneous Notes Summary: MFM [...] questions. documented in this encounter [facility] 05-13-2023 Telephone encounter Note Summary: [...] meals. Verbalized understanding and denied any questions. [facility] Work Phone: 05-12-2023 Miscellaneous Notes Summary: [facility] Insulin Pump Questions Called and spoke [...] week 05/20/23. Informed would call back after [facility] provider reviews. documented in this encounter [facility] 05-12-2023 Telephone encounter Note Summary: [facility] Insulin Pump Questions Called and spoke [...] week 05/20/23. Informed would call back after M provider reviews. [facility] Work Phone: 05-07-2023 History of Present illness [...] results Have you been seen here at [facility] in a previous ? N/a Recent ER visits or hospitalizations? No Bring blood sugar log or meter with you today? (Please bring them with you for every visit at [facility]) yes Traveled outside the country in [...] no complaints. She is being followed at [facility] due to Type 2 DM. [...] TSH 1.05 04/01/2023 No results found for: [id number] No results found for: CREATININE , BUN [...] values to us weekly by e-mail to: or by fax to: [phone] 40 Minutes spent pvgq-wi-otri; more than 50% of time spent counseling and/or coordinating care with additional time for record review and communication to referring provider. SABINA Uribe 05/07/23 [id number] documented in this encounter [facility] 05-07-2023 History of Present illness [...] care for you: OB Provider Family Doctor Electrical Electronics Engineer Name: Sebastian Name: No primary care provider on file. Name:[facility]: City: City: Last time seen: Last [...] demonstration Is there anything about your culture, moravian, or personal beliefs we need to know about to care for you: Other none Primary Language spoken: Yemeni [22] Primary Language for learning: Yemeni Are you currently in a relationship where you are physically hurt, threatened or made to fee afraid? [] Yes [x] No Associate Marketing Manager needed? [] Yes [x] No Marital status/Living [...] If yes, where: On thge following scale, qawalangin the number, which describes your current level [...] yes, where and when: [x] [] Tess Hernandez Kentrell was seen today and diabetes education was [...] Medical History: Diagnosis Date Diabetes mellitus ([facility]) Disease of thyroid gland Hypertension OB History [...] Educational Level high school Family issues none Cultural/ethnic/episcopalian influences none Exercise approved by MD? Current Exercise program walking Who prepares the meal pt Who purchase food at your home? pt Equipment use for cooking/food storage has all Food Assistance(Ex.WIC, Food [place]) has apt Dining out Yes 1 time per month Appetite/Appetite changes increased Weight History stable Do you have cats at home? Feeding Plans Breast Feeding If you have cats, who cleans the litter box? Cravings/Aversions/Pica none currently Nutrition Assessment Worksheet: Week/Weekend Food Recall Breakfast Marie Or cereal Or eggs Snack Lunch Grilled [...] minutes. documented in this encounter [facility] 05-07-2023 Instructions Danyell Ortiz RN [...] AWAKE documented in this encounter [facility] 04-23-2023 Miscellaneous Notes Called pt due toher not coming to her appt today and she stated she had left a message that she needed to tammi due to not having transportation to her appt this morning. Her name given back to the schedulers to call and resched her. documented in this encounter [facility] 04-23-2023 Telephone encounter Note Called pt due toher not coming to her appt today and she stated she had left a message that she needed to tammi due to not having transportation to her appt this morning. Her name given back to the schedulers to call and resched her. [facility] 04-17-2023 History of Present illness Narrative Reason [...] Hand fracture, right Type 2 diabetes mellitus ([facility]) Family History Problem Relation Name Age of [...] nursing note reviewed. Exam conducted with a spray gunner present. Vitals: Estimated body mass index is [...] Mario Conway DO documented in this encounter [facility] 08-27-2021 Instructions Gregorio Floyd [...] levothyroxine for now. documented in this encounter [facility] 08-27-2021 History of Present illness Narrative Images [...] ALKPHOS, BILITOT No results found for: TSH, M3APVMN, THYROIDAB No results found for: PTH, CALCIUM, JACQUES, PHOS Lab Results Component Value Date HGBA1C 7.7 (A) 08/27/2021 No results found for: LDLCALC, CHOL, HDL, TRIG, CHOLHDL No results found for: MICALBCREAT, [id number] No results found for: CPEPTIDE Assessment and [...] acanthosis nigricans indicate T2DM, but will get KVA41-My and c-peptide/glucose given the young age of [...] Due for foot exam no 08/2021; to program counselor on foot care next visit CV [...] Floyd MD Endocrinology documented in this encounter [facility] 08-25-2021 Hospital Discharge instructions Patient Education 08/25/2021 [...] Ask your health care provider for a guct-fm-pzjx plan for gradually returning to activities. Ask [...] your friends, family, a trusted colleague, and compressed gas plant worker about your injury, symptoms, and restrictions. Have them watch for any new or worsening problems. General instructions Take brmj-dyl-porixzs and prescription medicines only as told by [...] 02/24/2006 Document Revised: 03/24/2019 Document Reviewed: 03/19/2019 [employer] Patient Education 2020 [employer] 08/25/2021 02:09:26 Cervical Sprain Cervical Sprain [...] provider or physical therapist. General instructions Take irpa-pkt-qkyrudn and prescription medicines only as told by [...] 12/22/2007 Document Revised: 06/16/2019 Document Reviewed: 10/23/2016 [employer] Patient Education 2019 [employer]. Follow Up Care 08/24/2021 22:42:21 With:Champ Bell Address: [address] [place] [address] [place] [phone] Business (1) When:Within 3 Day(s) [facility] 08-24-2021 Evaluation + Plan note Extrac [...] w/o Contrast CT Spine Cervical w/o Contrast [facility] Diagnosis Thyroid disorder- Primary Unspecified disorder of thyroid Hair loss Unspecified alopecia [facility] Diagnosis Type 2 diabetes mellitus with hyperglycemia, unspecified whether retirement insulin use (HCC)- Primary Thyroid disorder Unspecified disorder of thyroid Hair loss Unspecified alopecia [facility] Diagnosis Bleeding in early Unspecified hemorrhage in early , unspecified as to episode of care Follow-up exam Unspecified follow-up examination [facility] Type 2 diabetes mellitus in , second trimester- Primary Insulin pump in place Insulin pump status HTN in , chronic [facility] Diagnosis Type 2 diabetes mellitus in , second trimester- Primary Pre-existing type 2 diabetes mellitus during in first trimester [facility] Diagnosis Type 2 diabetes mellitus in , second trimester- Primary [facility] Diagnosis Type 2 diabetes mellitus in , second trimester- Primary [facility] Diagnosis Type 2 diabetes mellitus in , second trimester- Primary [facility]* Diagnosis Type 2 diabetes mellitus in , second trimester- Primary documented in this [facility] Narrative No data available for this section [facility] filedocumented in this encounter [facility] filedocumented in [facility] encounter [facility] on filedocumented in this encounter [facility]ructionsNot on filedocumented in this encounter [facility] SystemInstructionsNot on filedocumented in this encounter [facility] System[facility]ructionsNot on filedocumented in this encounter [facility] No data available for this section [facility] (narrative)* Consultation (Routine) - Pending Review Specialty Diagnoses / Procedures Referred By Juan Antonio montemayor Referred To Contact Maternal and Medicine Diagnoses Type 2 diabetes mellitus in , second trimester Insulin pump in place Opal Heath, GALLO-BIOMEDICAL MANAGER [address] [place] [address] Leana Burr MD [address], [address] [address] Referral ID Status Reason Start Date Expiration Date Visits Requested Visits Authorized [id number] Pending Review Specialty Services Required 05/07/2023 05/06/2024 1 1 Replaced by [facility] for referral (narrative)* Consultation (Routine) - Pending Review Specialty Diagnoses / Procedures Referred By Contac t Referred To Contact Endocrinology Diagnoses Type 2 diabetes mellitus in , second trimester Mary Guidry [facility] [address], [address] [place] [id number] Leana Burr MD [facility] [address], [address] [address] Referral ID Status Reason Start Date Expiration Date Visits Requested Visits Authorized [id number] Pending Review Specialty Services Required 05/20/2023 05/19/2024 1 1 Replaced by [facility] for visit Narrative* Consultation (Routine) - Pending Review Specialty Diagnoses / Procedures Referred By Contac t Referred To Contact Endocrinology Diagnoses Type 2 diabetes mellitus in , second trimester Mary Guidry, [facility] [address], [address] [place] [address] Leana Burr MD [facility] [address] [address] Referral ID Status Reason Start Date Expiration Date Visits Requested Visits Authorized [id number] Pending Review Specialty Services Required 05/20/2023 05/19/2024 1 1 [facility] Summary Purpose Family History No Family History Records FoundNo Family History Records FoundNo Family History Records FoundNo Family History Records FoundNo Family History Records FoundNo Family History Records FoundNo Family History Records Found Advance Directives No Advanced Directives Records FoundDocuments on File Type Date Recorded Patient Barrel Raiser Expl anation Advance Directives and Livin g Will 05/02/2021 12:00 AM Reason for Referral Specialty Diagnoses / Procedures Referred By Contac t Referred To Contact Endocrinology Diagnoses Thyroid disorder Hair loss Champ Bell MD [address] [facility] [place] [address] [place] [address] Gregorio Floyd MD [facility] [place] [address] Referral ID Status Reason Start Date Expiration Date Visits Requested Visits Authorized [id number] Authorized Specialty Services Required/Pat ient's Best Interest 05/04/2021 05/04/2022 1 1 Specialty Diagnoses / Procedures Referred By Contac t Referred To Contact Maternal and Medicine Diagnoses Type 2 diabetes mellitus in , second trimester Procedures US [facility] with or without consult Opal Heath, OTOLARYNGOLOGY REP-BIOMEDICAL MANAGER [address] [place] [address] [facility] Maternal Med [address] [place] [address] Referral ID Status Reason Start Date Expiration Date V isits Requested Visits Authorized [id number] Pending Review 05/08/2023 05/07/2024 1 1 Additional Source Comments INFORMATION SOURCE (unrecogn ized section and content) DATE CREATED AUTHOR 02/06/2021 [facility] DATE CREATED AUTHOR AUTHOR'S ORGANIZ ATION 08/27/2021 [facility] DATE CREATED AUTHOR AUTHOR'S ORGANIZ ATION 08/30/2021 [facility] DATE CREATED AUTHOR AUTHOR'S ORGANIZ ATION 06/02/2022 [facility] DATE CREATED AUTHOR AUTHOR'S ORGANIZ ATION 07/24/2023 [facility] DATE CREATED AUTHOR AUTHOR'S ORGANIZ ATION 07/31/2023 [facility] DATE CREATED AUTHOR AUTHOR'S ORGANIZ ATION 08/12/2023 [facility] [employer] Care Teams (unrecognized sec tion and content) Masonry Inspector Relationship Specialty Start Date End Date Champ Bell MD [address] [facility] [place] [place] [address] [place] [address] PCP - General Family Medicine 05/02/21 Masonry Inspector Relationship Specialty Start Date End Date Champ Bell MD [address] [place] [address] PCP - General Family Medicine 05/02/21 Masonry Inspector Relationship Specialty Start Date End Date Champ Bell MD [address] [place] [address] PCP - General 03/13/23 Reason for Visit (unrecogniz ed section and content) Reason Comments Thyroid Problem Specialty Diagnoses / Procedures Referred By Contac t Referred To Contact Endocrinology Diagnoses Thyroid disorder Hair loss Champ Bell MD [address] [place] [address] Phone: Gregorio Floyd MD [address] [place] [id number] Referral ID Status Reason Start Date Expiration Date V isits Requested Visits Authorized [id number] Closed Specialty Services Required/Deanna ent's Best Interest 05/04/2021 05/04/2022 1 1 Reason Comments ER Follow-up Reason Comments t2dm Reason Comments Diabetes Specialty Diagnoses / Procedures Referred By Contac t Referred To Contact Maternal and Medicine Diagnoses Pre-existing type 2 diabetes mellitus during in first trimester Mario Conway R, DO [address] , [place] [address] [facility] Maternal Med [address] [place] [address] Referral ID Status Reason Start Date Expiration Date Visits Requested Visits Authorized [id number] Pending Review Specialty Services Required 04/15/2023 04/14/2024 [...] BE BASED ON THE PRIMARY CLINICAL RECORDS. [facility] [employer] [facility]. provides no warranty or guarantee of the accuracy or completeness of information in this document.
== END 2023-08-13 09:01 | disposition home or self-care (01) ==
LOC: NOMS 09:00
PROVIDERS: PCP Family Medicine; Visit Provider Obstetrics & Gynecology
DX: O24.113 Pre-existing type 2 diabetes mellitus, in pregnancy, third trimester (principal); Z3A.32 32 weeks gestation of pregnancy
CPT/HCPCS: 76816

== ENCOUNTER 2023-08-19 07:18 | Outpatient (OUT) | payer OTHER, SELFPAY ==
--- OUTSIDE RECORDS SUMMARY | 2023-08-19 07:21 | XMS_ITS ---
Patient Summarization (C-CDA 2.1 CCD) Created on: August 19, 2023 TESS CALVERT : 1995 Sex: Undifferentiated Author Organization Sample organization Care Team Providers Care Accounts Executive Name Role Phone Ray FLOWERS, Champ Primary Care Provider Champ Bell Primary Care Physician [phone] Champ Bell MD Primary Care Provider CHAMP BELL Admitting Unavailable CHAMP BELL Primary Care Unavailable CHAMP BELL Referring Unavailable ADLYRITESHIN CORDELL LOREDO Attending Unava ilable HOY ., DR OAKES [...] Unavailable MITA ., GREGORY Admitting Unavailable GRECHNY .MARINA Consulting Unavailabl e HOY ., DR [...] Unavailable HOY ., DR OAKES Admitting Unavailable WOLCOTT, DR MAY Silverman Consulting Unavailable CRYSTAL PENG Consulting Unavailable HOY ., DR OAKES Primary Care Unavailable CRYSTAL PENG Attending Unavailable CRYSTAL PENG Admitting Unavailable Champ Bell MD Primary Care Provider [phone] Unavailable Primary Care Provider UnavailOPAL Mcneal Attending [...] MARIO Attending Unavailable ZORAIDA, MARIO Attending Unavailable RODEMAN, LEANA Attending Unavailable MARY GUIDRY Referring Unavailable RODEMAN, LEANA Attending Unavailable RODEMAN, LEANA Attending Unavailable ZORAIDA, MARIO R Referring Unavailable RODEMAN, LEANA Attending Unavailable ZORAIDA, MARIO R Referring Unavailable ESTRADA, MARGARITA Referring Unavailable RODEMAN, LEANA Attending Unavailable ZORAIDA, MARIO R Referring Unavailable RODEMAN, LEANA Attending Unavailable ZORAIDA, MARIO R Referring Unavailable RODEMAN, LEANA Attending Unavailable ANNA GALEANO Referring Unavailable RODEMAN, LEANA Attending Unavailable ZORAIDA, MARIO R Referring Unavailable Encounters Encounter Date Encounter Type Care Provider Facility Start: 08-13-2023 End: 08-13-[address] [facility] Start: 08-11-2023 End: 08-11-2023 ambulatory MARIO ZORAIDA Not Available Start: 08-05-2023 End: 08-05-2023 ambulatory MARIO ZORAIDA Not Available Start: 07-29-2023 End: 07-29-2023 ambulatory [facility] Start: 07-28-2023 End: 07-28-2023 ambulatory MARIO ZORAIDA Not Available Start: 07-23-2023 End: 07-23-2023 ambulatory [facility] Start: 07-22-2023 End: 07-22-2023 ambulatory [facility] Start: 07-22-2023 End: 07-22-2023 ambulatory SHWETHA CARTER Not Available Start: 07-14-2023 End: 07-14-2023 ambulatory MARIO ZORAIDA Not Available Start: 07-10-2023 End: 07-10-2023 ambulatory [facility] Start: 06-30-2023 End: 06-30-2023 ambulatory MARIO ZORAIDA Not Available Start: 06-30-2023 End: 06-30-2023 ambulatory [facility] Start: 06-23-2023 End: 06-24-2023 ambulatory [facility] Start: 06-23-2023 End: 06-23-2023 ambulatory [facility] Start: 06-11-2023 End: [facility]12[facility]: 06-10-2023 End: 06-10-2023 ambulatory MARIO ZORAIDA Not Available Start: 06-09-2023 Orders Only Leana franco MD Work Phone: [facility] Start: 06-04-2023 Orders Only Leana franco MD Work Phone: [facility] [place] [facility] Comment on above: Type 2 diabetes naz itus in , second trimester (Primary Dx) Start: 05-29-2023 End: 05-29-2023 ambulatory MARIO ZORAIDA Not Available Start: 05-29-2023 End: 05-29-2023 Office outpatient visit 25 minutes Leana Burr MD Work Phone[facility] [place] [facility] Comment on above: Type 2 diabetes naz itus in , second trimester (Primary Dx) Start: 05-29-2023 End: 05-29-2023 ambulatory LEANA BURR [facility] Start: 05-20-2023 End: 05-20-2023 Orders Only Mary Guidry APRN-CNM Work Phone: [facility]- [facility] at [facility] Comment on above: Type 2 diabetes naz itus in , second trimester (Primary Dx) Start: 05-20-2023 End: 05-20-2023 Office outpatient new 45 minutes Leana Burr MD Work Phone: [facility] [place] [facility] Comment on above: Type 2 diabetes naz itus in , second trimester (Primary Dx) Start: 05-13-2023 Telephone encounter Joann pastrana RN Work Phone: [facility] Start: 05-12-2023 Telephone encounter Joann pastrana RN Work Phone: [facility] Start: 05-12-2023 End: 05-12-2023 ambulatory SHWETHA CARTER Not Available Start: 05-08-2023 Orders Only Queta Zazueta CMA [facility] r[facility]- Medicine at [facility] Comment on above: Type 2 diabetes naz itus in , second trimester (Primary Dx) Start: 05-07-2023 End: 05-07-2023 Office outpatient visit 25 minutes Opal Heath HOSTED SERVICES ANALYST-NET MOBILE DEVELOPER Work Phone: [facility] Comment on above: Type 2 diabetes naz itus in , second trimester (Primary Dx); Insulin pump in place; HTN in , chronic Start: 05-07-2023 End: 05-07-[address] Work Phone: [facility] Comment on above: Type 2 diabetes naz itus in , second trimester (Primary Dx); Pre-existing type 2 diabetes mellitus during in first trimester Start: 04-23-2023 Chart abstracting Opal falk APRN-NET MOBILE DEVELOPER Work Phone: [facility] Start: 04-23-2023 Telephone encounter Danyell Ortiz RN Pa ternal- Medicine at [facility] Start: 04-17-2023 End: 04-17-2023 Office outpatient [...] PENG Facility:[facility]1 Start: 05-14-[address] CHAMP Berry Facili ty:[facility]1 Start: 05-01-[address] CHAMP Berry Facili ty:[facility] Start: 04-23-2022 End: 04-24-[address] CHAMP BELL . Facility:[facility] Start: 04-15-[address] CHAMP Berry Facili ty:[facility]1 Start: 04-10-2022 End: 04-11-2022 ambulatory [...] Start: 08-27-2021 End: 08-27-2021 ambulatory CHAMP BELL [facility] Start: 08-27-2021 End: 08-27-2021 Office outpatient new 60 minutes Champ Bell MD Work Phone: [facility] Comment on above: Type 2 diabetes naz itus with hyperglycemia, unspecified whether care home insulin use (HCC) (Primary Dx); Thyroid disorder; Hair loss Start: 08-24-2021 End: 08-25-2021 Emergency department patient visit Tyler Summers [facility] Start: 08-15-2021 End: 08-15-2021 ambulatory GREGORY FAN . Facility:[facility]1 Start: 06-13-2021 End: 06-14-[address] CHAMP BELL . Facility:[facility] Start: 05-04-2021 Transcribe Orders Champ Bell MD Work Phone: [facility] Comment on above: Thyroid disorder (Pr imary Dx); Hair loss Medical Equipment Procedure Code Equipment Code Equipment Origin al Text Equipment Identifier Dates 1 each by Other route if needed [id number] Start: 03-11-2023 Use a new needle with each injection [id number] Start: 05-07-2023 Medications Current Medications Medication Drug Class(es) Dates Sig (Normalized) Sig (Original) acetaminophen 325 mg / HYDROcodone bitartrate 5 mg oral tablet (1 source) Opioid Agonist Start: 07-03-2020 [place] 325 mg-5 mg oral tablet 1 tab(s), [...] Status: Ordered take 1 tablet by tori once daily before breakfast pantoprazole (PROTONIX) 40 [...] (Reorder) Payers Date Payer Category Payer Medicaid [id number] 1994 Unknown [id number] 2.16. 840.1.817459.3.579.2.903 1994 Unknown [id number] 2.16.84 0.1.702299.3.579.2.593 1994 Unknown [id number] 2.16.84 0.1.528775.3.579.2.593 1994 Unknown [id number] 2.16.84 0.1.411308.3.579.2.593 1994 Unknown [id number] 2.16.84 0.1.489141.3.579.2.593 1994 Unknown [id number] 2.16.84 0.1.296324.3.579.2.593 1994 Unknown [id number] 2.16.84 0.1.563469.3.579.2.593 1994 Unknown [id number] 2.16.84 0.1.768521.3.579.2.593 1994 Unknown [id number] 2.16.84 0.1.138898.3.579.2.593 1994 Unknown [id number] 2.16.84 0.1.656383.3.579.2.593 1994 Unknown [id number] 2.16.84 0.1.897139.3.579.2.593 1994 Unknown [id number] 2.16.84 0.1.861555.3.579.2.593 1994 Unknown [id number] 2.16.84 0.1.241677.3.579.2.593 1994 Unknown [id number] 2.16.84 0.1.124830.3.579.2.593 1994 Unknown [id number] 2.16.8 40.1.616190.3.579.2.1286 1994 Unknown [id number] 2.16.8 40.1.413398.3.579.2.1286 1994 Unknown [id number] 2.16.8 40.1.875164.3.579.2.1286 1994 Unknown [id number] 2.16.8 40.1.964467.3.579.2.1285 1994 Unknown [id number] 2.16.8 40.1.378981.3.579.2.1285 1994 Unknown [id number] 2.16.84 0.1.759499.3.579.2.1258 1994 Unknown [id number] 2.16.84 0.1.574253.3.579.2.1258 1994 Unknown [id number] 2.16.84 0.1.794858.3.579.2.1258 1994 Unknown [id number] 2.16.84 0.1.257947.3.579.2.1258 1994 Unknown [id number] 2.16.84 0.1.305434.3.579.2.1258 1994 Unknown [id number] 2.16.84 0.1.105993.3.579.2.1258 1994 Unknown [id number] 2.16.84 0.1.258840.3.579.2.1258 1994 Unknown [id number] 2.16.84 0.1.234806.3.579.2.1258 1994 Unknown [id number] 2.16.84 0.1.727983.3.579.2.1258 1994 Unknown [id number] 2.16.84 0.1.501596.3.579.2.1258 1994 Unknown [id number] 2.16.84 0.1.941915.3.579.2.1258 1994 Unknown [id number] 2.16.840 .1.134662.3.579.2.1258 1994 Unknown [id number] 2.16.8 40.1.074507.3.579.2.1285 1994 Unknown [id number] 2.16.8 40.1.271916.3.579.2.1286 1994 Unknown [id number] 2.16.8 40.1.691390.3.579.2.1286 1994 Unknown [id number] 2.16.8 40.1.022351.3.579.2.1286 1994 Unknown [id number] 2.16.8 40.1.366249.3.579.2.6 1994 Unknown [id number] 2.16.8 40.1.993024.3.579.2.1286 1994 Unknown [id number] 2.16.8 40.1.773648.3.579.2.6 1994 Unknown [id number] 2.16.8 40.1.615332.3.579.2.1286 1994 Unknown [id number] 2.16.8 40.1.559419.3.579.2.1285 1994 Unknown [id number] 2.16.8 40.1.961208.3.579.2.1286 1960 Medicaid [id number] 1959 Unknown [id number] 1959 Unknown [id number] 1959 Unknown [id number] Plan of Treatment Date Care Activity Detail Author Start: 05-11-2026 Screening for malign ant neoplasm of cervix Pap Smear [facility] Start: 05-28-2024 Tobacco Screening Tobacco Screening [facility] Start: 05-07-2024 Adult BMI Screening Adult BMI Screen ing [facility] Start: 05-07-2024 Tobacco Screening Tobacco Screening [facility] Start: 05-07-2024 End: 05-07-2024 US MFM with or without consult US MFM with or without consult Imaging Routine Type 2 diabetes mellitus in , second trimester Expected: 05/07/2024 (Approximate), Expires: 05/07/2024 [employer] Work Phone: Comment on above: Expected: 05/07/2024 (Approximate), Expires: 05/07/2024 Start: 11-09-2023 Influenza vaccination Influenza Vacc ine [facility] Start: 06-11-2023 End: 06-11-2023 Patient encounter procedure 06/11/2023 1:00 PM EDT Appointment [facility] [address] [place] [address] [facility] Start: 06-10-2023 End: 06-10-2023 Patient encounter procedure 06/10/2023 3:00 PM EDT Office Visit [facility] [address] [place] [address] Leana Burr MD [address] [place] [address] [facility] Start: 06-04-2023 End: 06-04-2023 Patient encounter procedure 06/04/2023 10:45 AM EDT Office Visit [facility] [address] [place] [id number] Leana Burr MD [address] [place] [address] [facility] Start: 05-29-2023 End: 05-29-2023 Patient encounter procedure 05/29/2023 10:45 AM EDT Office Visit [facility] [address] [place] [address] Leana Burr MD [address] [facility] [address] [place] [address] [facility] Start: 05-20-2023 End: 05-20-2023 Telemedicine consultation with patient 05/20/2023 8:00 AM EDT Telemedicine [facility] [address] [place] [address] Leana Burr MD [address] [place] [address] [facility] Start: 05-12-2023 End: 05-12-2023 Patient encounter procedure 05/12/2023 8:30 AM EST Routine [facility] [address] [facility] [place] [address] Shwetha Carter PA [address] [facility] [place] [address] [facility] Start: 05-07-2023 End: 05-07-2023 Patient encounter procedure 05/07/2023 3:00 PM EST Office Visit [facility] [address] [place] [address] Opal Heath, HOSTED SERVICES ANALYST-NET MOBILE DEVELOPER [address] [place] [address] [facility] Start: 05-07-2023 End: 05-07-2023 ambulatory 05/07/2023 1:00 PM EST Support Visit [facility] [address] [place] [address] Shital Fritz, RD [address] [facility] [address] [place] [address] [facility] Start: 11-08-2022 Influenza vaccination Influenza Vacc ine [facility] Start: 11-27-2021 End: 11-27-2021 Patient encounter procedure 11/27/2021 Office Visit Endocrinology Gregorio Floyd MD [facility] [place] [address] [facility] Start: 11-27-2021 Hemoglobin A1c measurement A1C [facility] Start: 11-08-2021 Influenza vaccination Sequenti al Influenza Vaccine (Season Ended) [facility] Start: 06-25-2021 End: 06-25-2021 Patient encounter procedure 06/25/2021 Office Visit Endocrinology Gregorio Floyd MD [address] [place] [address] [facility] Start: 11-08-2020 Influenza vaccination Sequenti al Influenza Vaccine (#1) [facility] Start: 11-14-2015 Screening for malign ant neoplasm of cervix Pap Smear [facility] Start: 2013 DTaP,Tdap and Td Vaccines (1 - Tdap) DTaP,Tdap and Td Vaccines (1 - Tdap) [facility] Start: 2012 Adult BMI Follow Up Plan Adult BMI Follow Up Plan [facility] Start: 2012 Adult BMI Screening Adult BMI Screen ing [facility] Start: 2012 Diabetic foot examination Diabetic Foot Exam [facility] Start: 2012 Hepatitis C screening Hepatitis C Sc reening [facility] Start: 2009 HIV screening HIV Screening [facility] Start: 2006 Depression screening using PHQ-9 (Patient Health Questionnaire 9) score [facility] Start: 2006 Tobacco Screening Tobacco Screening [facility] Start: 2005 DTaP,Tdap and Td Vaccines (5 - Tdap) DTaP,Tdap and Td Vaccines (5 - Tdap) [facility] Start: 2004 Diabetic foot examination Foot Exam [facility] Start: 2004 Microalbumin measurement, urine, quantitative Urine Microalbumin [facility] Start: 2004 Ophthalmic examinati on and evaluation Ophthalmology Exam [facility] Start: 2000 Pneumococcal Vaccine : Ped or At-Risk (1 - PCV) Pneumococcal Vaccine: Ped or At-Risk (1 - PCV) [facility] Start: 11-14-1999 COVID-19 Vaccine (#1) COVID-19 Vacci ne (#1) [facility] Start: 11-14-1999 COVID-19 Vaccine (1) COVID-19 Vaccin e (1) [facility] Start: 1997 History and physical examination, annual for health maintenance Wellness Visit [facility] Start: 1994 Glaucoma screening Diabetic Op hthalmology Exam [facility] Start: 1994 Screening for malign ant neoplasm of cervix Pap Smear [facility] Start: 1994 Tetanus vaccination Tetanus: Every 1 0yrs [facility] Start: 1994 Urine screening for protein Urine Microalbumin [facility] End: 08-27-2022 C peptide [Mass/volume] in Serum or Plasma C-peptide Lab Routine Type 2 diabetes mellitus with hyperglycemia, unspecified whether care home insulin use (HCC) 1 Occurrences starting 08/27/2021 until 08/27/2022 [facility] Comment on above: 1 Occurrences starti ng 08/27/2021 until 08/27/2022 End: 05-19-2024 C-peptide C-peptide Lab Routine Type 2 diabetes mellitus in , second trimester 1 Occurrences starting 05/20/2023 until 05/19/2024 [facility] Comment on above: 1 Occurrences starti ng 05/20/2023 until 05/19/2024 End: 05-19-2024 GAD65 Ab assay GAD65 Ab assay Lab Routine Type 2 diabetes mellitus in , second trimester 1 Occurrences starting 05/20/2023 until 05/19/2024 [employer] Work Phone: Comment on above: 1 Occurrences starti ng 05/20/2023 until 05/19/2024 End: 08-27-2022 Glucose [Mass/volume] in Serum or Plasma Glucose Lab Routine Type 2 diabetes mellitus with hyperglycemia, unspecified whether care home insulin use (HCC) 1 Occurrences starting 08/27/2021 until 08/27/2022 [facility] Comment on above: 1 Occurrences starti ng 08/27/2021 until 08/27/2022 End: 05-19-2024 Glucose [Mass/volume] in Serum or Plasma Glucose Lab Routine Type 2 diabetes mellitus in , second trimester 1 Occurrences starting 05/20/2023 until 05/19/2024 [facility] Comment on above: 1 Occurrences starti ng 05/20/2023 until 05/19/2024 Hepatic function 200 0 panel - Serum or Plasma Hepatic function panel Lab Routine Type 2 diabetes mellitus with hyperglycemia, unspecified whether care home insulin use (HCC) Ordered: 08/27/2021 [facility] Comment on above: Ordered: 08/27/2021 End: 05-19-2024 Insulinoma Associated Antibody 2 Insulinoma Associated Antibody 2 Lab Routine Type 2 diabetes mellitus in , second trimester 1 Occurrences starting 05/20/2023 until 05/19/2024 [facility] Comment on above: 1 Occurrences starti ng 05/20/2023 until 05/19/2024 End: 08-27-2022 Islet cell antibody measurement Anti-Islet Cell (GAD65) Antibody Lab Routine Type 2 diabetes mellitus with hyperglycemia, unspecified whether oceanographic meteorologist insulin use (HCC) 1 Occurrences starting 08/27/2021 until 08/27/2022 [facility] Comment on above: 1 Occurrences starti ng 08/27/2021 until 08/27/2022 End: 08-27-2022 Lipid 1996 panel - Serum or Plasma Lipid Panel Lab Routine Type 2 diabetes mellitus with hyperglycemia, unspecified whether care home insulin use (HCC) 1 Occurrences starting 08/27/2021 until 08/27/2022 [facility] Comment on above: 1 Occurrences starti ng 08/27/2021 until 08/27/2022 Microalbumin measurement, urine, quantitative Microalbumin/Creatinine Ratio, UR Random Lab Routine Type 2 diabetes mellitus with hyperglycemia, unspecified whether care home insulin use (HCC) Ordered: 08/27/2021 [facility] Work Phone: Comment on above: Ordered: 08/27/2021 [...] Phone: Start: 04-01-2023 Antibody screen Bebe Heath HOSTED SERVICES ANALYST-[facility] Work Phone: Start: 04-01-2023 Bacteria identified [...] 06-22 C PEPTIDE 5.70 ng/mL High 0.81-3.85 [facility] Comment on above: Result Comment: NOTE Test Performed By: [facility] [employer] [address] [place] [address] Aviation Neuropsychologist: Vaibhav Julian III, M.D. CLIA #[id number] Performed By: #### 2 345-7 #### [facility] ([id number]) [address] [place] [address], [address] [address] GLUCOSEon 06-23-2023 Glucose [Mass/Vol] 168 mg/dL High 65-99 [facility] Comment on above: Performed By: #### 2 345-7 #### [facility] ([id number]) [address] [place] [address], [address] [address] Glutamate decarboxylase 65 A b IA Qn (S)on 06-23-2023 LATOYA ANTIBODY <5.0 Normal 0.0-5.0 [facility] Comment on above: Result Comment: NOTE INTERPRETIVE INFORMATION: Glutamic Acid Decarboxylase Antibody A value greater than 5.0 IU/mL is considered positive for Glutamic Acid Decarboxylase Antibody (LATOYA Ab). This assay is intended for the semi-quantitative determination of the LATOYA Ab in human serum. Results should be interpreted within the context of clinical symptoms. Performed By: [employer] [address] [place] [address] Aviation Neuropsychologist: Mark Fitzpatrick MD, PhD CLIA Number: [id number] Performed By: #### 2 345-7 #### [facility] ([id number]) [address] [place] [address], [address] [address] Reference Lab Test IDon 06-08 Insulinoma Ab 2 See Below Normal [facility] Comment on above: Result Comment: NOTE [...] Clinical correlation is required. Test Performed By: [facility] [address] [place] [address] Aviation Neuropsychologist: Vaibhav Julian III, M.D. CLIA #[id number] Performed By: #### 2 345-7 #### [facility] ([id number]) [address] [place] [address], [address] [place] [address] CBC without diffon Hematocrit (Bld) [Volume fraction] 40.1 % [facility] Hemoglobin (Bld) [Mass/Vol] 12.8 g/dL [facility] Platelets (Bld) [#/Vol] 305 10*3/uL [facility] Rbc Mcv (Fl) By Automated Count 82.2 [facility] Free Cell DNAon 2023 Free Cell Dna no call [facility] HIV 1&2 AB/AG Screen (P24 AG )on 04-01-2023 HIV 1&2 AB/AG Negative [facility] Hemoglobin A1con 04-01-2023 HbA1c (Bld) [Mass fraction] 7.9 % Abnormal 4.0 - 6.0 % [facility] Interpretation and review of laboratory results Abnormal [facility] Hepatitis B surface antigeno n 04-01-2023 Hepatitis B Surface Antigen Negative [facility] No Panel Informationon 04-01 [facility] Rubella IGG immune statuson 04-01-2023 Rubella immune IgG immune [facility] Syphilis Total(Unknown Syphi lis Status)on 04-01-2023 Syphilis Non-Reactive [facility] TSHon 04-01-2023 Thyroid Stimulating (3Rd Generation) Hormone/ Tsh 1.051 [facility] TSH Qn 1.05 m[IU]/L [facility] Type and screenon 04-01-2023 Abo/Rh(D) Positive [facility] Urine Cultureon 04-01-2023 Bacteria identified Cx Nom (U) no growth [facility] Covid-19 PCR (CVDTBH)on 05-09 SARS-CoV-2 (COVID-19) RNA EZEKIEL+probe Ql (Unsp spec) Not detected Normal NOT DETECTED [facility] Comment on above: Result Comment: This test is not yet approved or cleared by the [place] FDA. When there are no FDA-approved or cleared tests available, and other criteria are met, FDA can make tests available under an emergency access mechanism called an Emergency Use Authorization (EUA). The EUA for this test is supported by the [place] of Health and Human Service's (HHS's) declaration [...] SARS-CoV-2. Performed By: #### C VDTBH #### [facility] [address] [place] [address] Dr. Rosemary Ames GROUP A STREP CULTUREon 05-09 S. pyogenes Ag Ql (Unsp spec) Culture Observations: NEGATIVE FOR GROUP A STREPTOCOCCUS. Normal [facility] Comment on above: Performed By: #### T 7, LIPID, TSH, CMADM, BNP, CMP #### [facility] [address] [place] [address] Dr. Rosemary Ames INFLUENZA A AND B AGon 05-31 INFLUANEGH SEE BELOW Normal [facility] Comment on above: Result Comment: Nega tive for Flu A protein angiten. Infection due to Flu A cannot be ruled out. Flu A angiten in the sample may be below the detection limit of the test. Performed By: #### I NFLUAB #### [facility] [address] [place] [address] Dr. Rosemary Ames INFLUBNEGH SEE BELOW Normal [facility] Comment on above: Result Comment: Nega tive for Flu B protein antigen. Infection due to Flu B cannot be ruled out. Flu B antigen in the sample may be below the detection limit of the test. Performed By: #### I NFLUAB #### [facility] [address] [place] [address] Dr. Rosemary Ames INFLUENZA A AG Negative Normal NEGATIVE SEE COMMENT [facility] Comment on above: Performed By: #### I NFLUAB #### [facility] [address] [place] [address] Dr. Rosemary Ames INFLUENZA B AG Negative Normal NEGATIVE SEE COMMENT [facility] Comment on above: Performed By: #### I NFLUAB #### [facility] [address] [place] [address] Dr. Rosemary Ames STREPT SCREENon 05-31-2022 STREP SCREEN A Negative Normal NEGATIVE [facility] Comment on above: Performed By: #### E RUR #### [facility] [address] [place] [address] Dr. Rosemary Ames SYMPTOMATIC COVID-19 ANTIGEN on 05-31-2022 EUA Statement SEE BELOW Normal [facility] Comment on above: Result Comment: This [...] 7, LIPID, TSH, CMADM, BNP, CMP #### [facility] [address] [place] [address] Dr. Rosemary Ames SARS-CoV-2 (COVID-19) RNA EZEKIEL+probe Ql (Unsp spec) Negative Normal NEGATIVE [facility] Comment on above: Performed By: #### T 7, LIPID, TSH, CMADM, BNP, CMP #### [facility] [address] [address] [address] Rosemary Ames ECHOCARDIO M/2D COMPLETEon 0 04-10-2022 ECHOCARDIO M/2D COMPLETE Patient: TESS ASHLEY Exam Date: 04/10/2022 : 1995 Gender:F Ordering : DR CHAMP BELL . Admission #: [id number] Family : Order #: [id number] CLICK HERE TO VIEW EXAM ECHOCARDIOGRAM REPORT [...] M.D. on 04/10/2022 at 17:40 Normal [facility] CBC AUTO DIFFon 03-13-2022 BASO # 0.0 103/ul Normal 0.0-0.1 [facility] Comment on above: Performed By: #### A 1C #### [facility] [address] [place] [address] Dr. Rosemary Ames Basophils/100 WBC (Bld) 0.3 % Normal 0.2-2.0 [facility] Comment on above: Performed By: #### A 1C #### [facility] [address] [place] [address] Dr. Rosemary Ames EO # 0.0 103/ul Normal 0.0-0.7 [facility] Comment on above: Performed By: #### A 1C #### [facility] [address] [place] [address] Dr. Rosemary Ames Eosinophils/100 WBC (Bld) 0.5 % Critically low 0.9-7.0 [facility] Comment on above: Performed By: #### A 1C #### [facility] [address] [place] [address] Dr. Rosemary Ames Erythrocyte distribution width (RBC) [Ratio] 14.5 % Normal 11.0-15.0 [facility] Comment on above: Performed By: #### A 1C #### [facility] [address] [place] [address] Dr. Rosemary Ames Hematocrit (Bld) [Volume fraction] 39.7 % Normal 36.0-48.0 [facility] Comment on above: Performed By: #### A 1C #### [facility] [address] [place] [address] Dr. Rosemary Ames Hemoglobin (Bld) [Mass/Vol] 12.9 g/dL Normal 12.0-16.0 [facility] Comment on above: Performed By: #### A 1C #### [facility] [address] [place] [address] Dr. Rosemary Ames IG # 0.03 10e3/ul Normal 0.00-0.03 [facility] Comment on above: Performed By: #### A 1C #### [facility] [address] [place] [address] Dr. Rosemary Ames IG % 0.4 % Normal 0.0-0.5 [facility] Comment on above: Performed By: #### A 1C #### [facility] [address] [place] [address] Dr. Rosemary Ames LYMPH # 0.5 103/ul Critically low 1.2-3.8 [facility] Comment on above: Performed By: #### A 1C #### [facility] [address] [place] [address] Dr. Rosemary Ames Lymphocytes/100 WBC (Bld) 6.6 % Critically low 20.5-60.0 [facility] Comment on above: Performed By: #### A 1C #### [facility] [address] [place] [address] Dr. Rosemary Ames MANUAL DIFF REQ NO Normal [facility] Comment on above: Performed By: #### A 1C #### [facility] [address] [place] [address] Dr. Rosemary Ames MCH (RBC) [Entitic mass] 25.1 pg Critically low 26.7-34.0 [facility] Comment on above: Performed By: #### A 1C #### [facility] [address] [place] [address] Dr. Rosemary Ames MCHC (RBC) [Mass/Vol] 32.5 g/dL Normal 29.9-35.2 [facility] Comment on above: Performed By: #### A 1C #### [facility] [address] [place] [address] Dr. Rosemary Ames MCV (RBC) [Entitic vol] 77.2 fL Critically low 81.0-99.0 [facility] Comment on above: Performed By: #### A 1C #### [facility] [address] [place] [address] Dr. Rosemary Ames MONO # 0.7 103/ul Normal 0.3-0.8 [facility] Comment on above: Performed By: #### A 1C #### [facility] [address] [place] [address] Dr. Rosemary Ames Monocytes/100 WBC (Bld) 9.3 % Normal 1.7-12.0 [facility] Comment on above: Performed By: #### A 1C #### [facility] [address] [place] [address] Dr. Rosemary Ames NEUT # 6.2 103/ul Normal 1.4-6.5 [facility] Comment on above: Performed By: #### A 1C #### [facility] [address] [place] [address] Dr. Rosemary Ames Neutrophils/100 WBC (Bld) 82.9 % Critically high 43.0-75.0 [facility] Comment on above: Performed By: #### A 1C #### [facility] [address] [place] [address] Dr. Rosemary Ames Platelet mean volume (Bld) [Entitic vol] 9.8 fL Normal 9.5-13.5 [facility] Comment on above: Performed By: #### A 1C #### [facility] [address] [place] [address] Dr. Rosemary Ames PLT 246 103/ul Normal 150-450 [facility] Comment on above: Performed By: #### A 1C #### [facility] [address] [place] [address] Dr. Rosemary Ames RBC 5.14 106/ul Normal 4.20-5.40 [facility] Comment on above: Performed By: #### A 1C #### [facility] [address] [place] [address] Dr. Rosemary Ames WBC 7.4 103/ul Normal 4.0-11.0 [facility] Comment on above: Performed By: #### A 1C #### [facility] [address] [place] [address] Dr. Rosemary Am[facility] SARS-CoV-2 (COVID-19) RNA EZEKIEL+probe Ql (Unsp spec) Not detected Normal NOT DETECTED [facility] Comment on above: Result Comment: When diagnostic [...] for this test is supported by the Data Support Analyst of Health and Human Service's declaration that [...] used). Performed By: #### A 1C #### [facility] [address] [place] [address] Dr. Rosemary Ames D-DIMERon 03-13-2022 D-DIMER 0.26 mg/L FEU Normal <=0.59 [facility] Comment on above: Performed By: #### T 7, LIPID, TSH, CMADM, BNP, CMP #### [facility] [address] [place] [address] Dr. Rosemary Ames D-DIMER COMMENTS SEE BELOW Normal [facility] Comment on above: Result Comment: Incr [...] 7, LIPID, TSH, CMADM, BNP, CMP #### [facility] [address] [place] [address] Dr. Rosemary Ames ER URINE PROFILEon 3 Bilirubin Ql (U) Negative Normal NEGATIVE [facility] Comment on above: Performed By: #### E RUR #### [facility] [address] [place] [address] Dr. Rosemary Ames Clarity (U) CLEAR Normal CLEAR [facility] Comment on above: Performed By: #### E RUR #### [facility] [address] [place] [address] Dr. Rosemary Ames Color (U) LT. YELLOW Normal YELLOW [facility] Comment on above: Performed By: #### E RUR #### [facility] [address] [place] [address] Dr. Rosemary MARTIN A micrscopic examination will be performed if indicated. Normal [facility] Comment on above: Performed By: #### E RUR #### [facility] [address] [place] [address] Dr. Rosemary Ames Glucose Ql (U) Negative Normal NEGATIVE [facility] Comment on above: Performed By: #### E RUR #### [facility] [address] [place] [address] Dr. Rosemary Ames Hemoglobin Ql (U) Negative Normal NEGATIVE [facility] Comment on above: Performed By: #### E RUR #### [facility] [address] [place] [address] Dr. Rosemary Ames Ketones Ql (U) Negative Normal NEGATIVE [facility] Comment on above: Performed By: #### E RUR #### [facility] [address] [place] [address] Dr. Rosemary Ames LEUKOCYTES Negative Normal NEGATIVE [facility] Comment on above: Performed By: #### E RUR #### [facility] [address] [place] [address] Dr. Rosemary Ames Nitrite Ql (U) Negative Normal NEGATIVE [facility] Comment on above: Performed By: #### E RUR #### [facility] [address] [place] [address] Dr. Rosemary Ames pH (U) 6.0 [pH] Normal 5-9 [facility] Comment on above: Performed By: #### E RUR #### [facility] [address] [place] [address] Dr. Rosemary Ames SPEC GRAVITY 1.015 Normal 1.005-<=1.025 [facility] Comment on above: Performed By: #### E RUR #### [facility] [address] [place] [address] Dr. Rosemary Ames UA PROTEIN Negative Normal NEGATIVE/ TRACE [facility] Comment on above: Performed By: #### E RUR #### [facility] [address] [place] [address] Dr. Rosemary Ames UR MICRO IND NOT INDICATED Normal [facility] Comment on above: Performed By: #### E RUR #### [facility] [address] [place] [address] Dr. Rosemary Ames Urobilinogen Qn (U) 0.2 {Vincent'U}/dL Normal 0.2 - 1. 0 [facility] Comment on above: Performed By: #### E RUR #### [facility] [address] [place] [address] Dr. Rosemary Ames INFLUENZA A AND B AGon 03-13 INFLUANEGH SEE BELOW Normal [facility] Comment on above: Result Comment: Nega tive for Flu A protein angiten. Infection due to Flu A cannot be ruled out. Flu A angiten in the sample may be below the detection limit of the test. Performed By: #### E RUR #### [facility] [address] [place] [address] Dr. Rosemary Ames INFLUBNEGH SEE BELOW Normal [facility] Comment on above: Result Comment: Nega tive for Flu B protein antigen. Infection due to Flu B cannot be ruled out. Flu B antigen in the sample may be below the detection limit of the test. Performed By: #### E RUR #### [facility] [address] [place] [address] Dr. Rosemary Ames INFLUENZA A AG Negative Normal NEGATIVE SEE COMMENT [facility] Comment on above: Performed By: #### E RUR #### [facility] [address] [place] [address] Dr. Rosemary Ames INFLUENZA B AG Negative Normal NEGATIVE SEE COMMENT [facility] Comment on above: Performed By: #### E RUR #### [facility] [address] [place] [address] Dr. Rosemary Ames LACTATE/LACTIC ACIDon 2022 Lactate [Moles/Vol] 2.0 mmol/L Critically high 0.4-1.9 [facility] Comment on above: Performed By: #### A 1C #### [facility] [address] [place] [address] Dr. Rosemary Ames LIPASEon 03-13-2022 Lipase [Catalytic activity/Vol] 79.0 U/L Normal 73.0-393.0 [facility] Comment on above: Performed By: #### A 1C #### [facility] [address] [place] [address] Dr. Rosemary Ames PREG HCG QUALon 03-13-2022 , QUAL Negative Normal NEGATIVE [facility] Comment on above: Performed By: #### A 1C #### [facility] [address] [address] [address] Rosemary Ames PROF 14(COMP METB)on 023 Albumin [Mass/Vol] 4.1 g/dL Normal 3.4-5.0 [facility] Comment on above: Performed By: #### A 1C #### [facility] [address] [place] [address] Dr. Rosemary Ames Albumin/Globulin [Mass ratio] 1.1 {ratio} Normal [facility] Comment on above: Performed By: #### A 1C #### [facility] [address] [place] [address] Dr. Rosemary Amse ALP [Catalytic activity/Vol] 77 U/L Normal 46-116 [facility] Comment on above: Performed By: #### A 1C #### [facility] [address] [place] [address] Dr. Rosemary Ames ALT [Catalytic activity/Vol] 149 U/L Critically high 14-59 [facility] Comment on above: Performed By: #### A 1C #### [facility] [address] [address] [address] Rosemary Ames Anion gap [Moles/Vol] 16.0 mmol/L Normal [facility] Comment on above: Performed By: #### A 1C #### [facility] [address] [place] [address] Dr. Rosemary Ames AST [Catalytic activity/Vol] 82 U/L Critically high 15-37 [facility] Comment on above: Performed By: #### A 1C #### [facility] [address] [place] [address] Dr. Rosemary Ames Bilirubin [Mass/Vol] 1.0 mg/dL Normal 0.2-1.0 [facility] Comment on above: Performed By: #### A 1C #### [facility] [address] [place] [address] Dr. Rosemary Ames Calcium [Mass/Vol] 9.1 mg/dL Normal 8.5-10.1 [facility] Comment on above: Performed By: #### A 1C #### [facility] [address] [address] [address] Rosemary Ames Chloride [Moles/Vol] 96 mmol/L Critically low 98-107 [facility] Comment on above: Performed By: #### A 1C #### [facility] [address] [address] [address] Rosemary Ames CO2 [Moles/Vol] 25.7 mmol/L Normal 21.0-32.0 [facility] Comment on above: Performed By: #### A 1C #### [facility] [address] [address] [address] Rosemary Ames Creatinine [Mass/Vol] 0.78 mg/dL Normal 0.55-1.02 [facility] Comment on above: Performed By: #### A 1C #### [facility] [address] [place] [address] Dr. Rosemary Ames EGFR-AF DJIBOUTIAN >60 Normal >=60 [facility] Comment on above: Performed By: #### A 1C #### [facility] [address] [place] [address] Dr. Rosemary Ames EGFR-NON AF DJIBOUTIAN >60 Normal >=60 [facility] Comment on above: Performed By: #### A 1C #### [facility] [address] [place] [address] Dr. Rosemary Ames Globulin (S) [Mass/Vol] 3.9 g/dL Normal [facility] Comment on above: Performed By: #### A 1C #### [facility] [address] [address] [address] Rosemary Ames Glucose [Mass/Vol] 190 mg/dL Critically high 74-106 [facility] Comment on above: Performed By: #### A 1C #### [facility] [address] [place] [address] Dr. Rosemary Ames Potassium [Moles/Vol] 3.7 mmol/L Normal 3.5-5.1 [facility] Comment on above: Performed By: #### A 1C #### [facility] [address] [address] [address] Rosemary Ames Protein [Mass/Vol] 8.0 g/dL Normal 6.4-8.2 [facility] Comment on above: Performed By: #### A 1C #### [facility] [address] [place] [address] Dr. Rosemary Ames Sodium [Moles/Vol] 134 mmol/L Critically low 136-[address] [facility] Comment on above: Performed By: #### A 1C #### [facility] [address] [address] [address] Rosemary Ames Urea nitrogen [Mass/Vol] 9.0 mg/dL Normal 7.0-18.0 [facility] Comment on above: Performed By: #### A 1C #### [facility] [address] [place] [address] Dr. Rosemary Ames Urea nitrogen/Creatinine [Mass ratio] 11.5 mg/mg Normal [facility] Comment on above: Performed By: #### A 1C #### [facility] [address] [place] [address] Dr. Rosemary Ames TROPONIN, HIGH SENSITIVITYon 03-13-2022 HSTROP <4.0 Normal 4.0-51.3 [facility] Comment on above: Result Comment: CUT- OFF POINTS HAVE BEEN ESTABLISHED BASED ON THE FOURTH UNIVERSAL DEFINITIONS OF MYOCARDIAL INFARCTION. THE UPPER REFERENCE LIMIT (URL) OF TROPONIN, DEFINED THE 99TH PERCENTILE OF cTnI DISTRIBUTION IN A REFERENCE POPULATION, HAS BEEN CONFIRMED THE DECISION THRESHOLD FOR CT DIAGNOSIS. Previously reported as: 3.9 On 03/13/2022 18:24 By DM9 Performed By: #### A 1C #### [facility] [address] [place] [address] Dr. Rosemary Ames TSHon 03-13-2022 TSH 0.440 uIU/mL Normal 0.358-3.740 [facility] Comment on above: Performed By: #### A 1C #### [facility] [address] [place] [address] Dr. Rosemary Ames XR CHEST 1 Von [...] acute cardiopulmonary abnormalities. Electronically authenticated by: TUAN DEBBIE Date: 2022-03-13 18:59 Normal [facility] INSULINon 12-11-2021 Insulin 40.7 uIU/mL Critically high 2.6-24.[address] [facility] Comment on above: Performed By: #### A 1C #### [facility] [address] [place] [address] Dr. Rosemary Ames BNPon 12-10-2021 NT PRO BNP <11.1 Normal <=450.0 [facility] Comment on above: Performed By: #### T 7, LIPID, TSH, CMADM, BNP, CMP #### [facility] [address] [place] [address] Dr. Rosemary Ames CARDIAC RY ADMITon 022 CK [Catalytic activity/Vol] 80 U/L Normal 26-192 [facility] Comment on above: Performed By: #### T 7, LIPID, TSH, CMADM, BNP, CMP #### [facility] [address] [place] [address] Dr. Rosemary Ames CK.MB [Mass/Vol] 0.56 ng/mL Normal <=3.[address] [facility] Comment on above: Performed By: #### T 7, LIPID, TSH, CMADM, BNP, CMP #### [facility] [address] [place] [address] Dr. Rosemary Ames HSTROP 5.3 pg/mL Normal 4.0-51.3 [facility] Comment on above: Result Comment: CUT- OFF POINTS HAVE BEEN ESTABLISHED BASED ON THE FOURTH UNIVERSAL DEFINITIONS OF MYOCARDIAL INFARCTION. THE UPPER REFERENCE LIMIT (URL) OF TROPONIN, DEFINED THE 99TH PERCENTILE OF cTnI DISTRIBUTION IN A REFERENCE POPULATION, HAS BEEN CONFIRMED THE DECISION THRESHOLD FOR CT DIAGNOSIS. Performed By: #### T 7, LIPID, TSH, CMADM, BNP, CMP #### [facility] [address] [place] [address] Dr. Rosemary Ames RADHA 26 ng/mL Normal 9-82 [facility] Comment on above: Performed By: #### T 7, LIPID, TSH, CMADM, BNP, CMP #### [facility] [address] [place] [address] Dr. Rosemary Ames CBC AUTO DIFFon 12-10-2021 BASO # 0.0 103/ul Normal 0.0-0.1 [facility] Comment on above: Performed By: #### E RUR #### [facility] [address] [place] [address] Dr. Rosemary Ames Basophils/100 WBC (Bld) 0.4 % Normal 0.2-2.0 [facility] Comment on above: Performed By: #### E RUR #### [facility] [address] [place] [address] Dr. Rosemary Ames EO # 0.1 103/ul Normal 0.0-0.7 [facility] Comment on above: Performed By: #### E RUR #### [facility] [address] [place] [address] Dr. Rosemary Ames Eosinophils/100 WBC (Bld) 1.0 % Normal 0.9-7.0 [facility] Comment on above: Performed By: #### E RUR #### [facility] [address] [place] [address] Dr. Rosemary Ames Erythrocyte distribution width (RBC) [Ratio] 13.7 % Normal 11.0-15.0 [facility] Comment on above: Performed By: #### E RUR #### [facility] [address] [place] [address] Dr. Rosemary Ames Hematocrit (Bld) [Volume fraction] 40.9 % Normal 36.0-48.0 [facility] Comment on above: Performed By: #### E RUR #### [facility] [address] [place] [address] Dr. Rosemary Ames Hemoglobin (Bld) [Mass/Vol] 13.0 g/dL Normal 12.0-16.0 [facility] Comment on above: Performed By: #### E RUR #### [facility] [address] [place] [address] Dr. Rosemary Ames IG # 0.03 10e3/ul Normal 0.00-0.03 [facility] Comment on above: Performed By: #### E RUR #### [facility] [address] [place] [address] Dr. Rosemary Ames IG % 0.4 % Normal 0.0-0.5 [facility] Comment on above: Performed By: #### E RUR #### [facility] [address] [place] [address] Dr. Rosemary Ames LYMPH # 2.4 103/ul Normal 1.2-3.8 [facility] Comment on above: Performed By: #### E RUR #### [facility] [address] [place] [address] Dr. Rosemary Ames Lymphocytes/100 WBC (Bld) 30.3 % Normal 20.5-60.0 [facility] Comment on above: Performed By: #### E RUR #### [facility] [address] [place] [address] Dr. Rosemary Ames MANUAL DIFF REQ NO Normal [facility] Comment on above: Performed By: #### E RUR #### [facility] [address] [place] [address] Dr. Rosemary Ames MCH (RBC) [Entitic mass] 25.8 pg Critically low 26.7-34.0 [facility] Comment on above: Performed By: #### E RUR #### [facility] [address] [place] [address] Dr. Rosemayr Ames MCHC (RBC) [Mass/Vol] 31.8 g/dL Normal 29.9-35.2 [facility] Comment on above: Performed By: #### E RUR #### [facility] [address] [place] [address] Dr. Rosemary Ames MCV (RBC) [Entitic vol] 81.2 fL Normal 81.0-99.0 [facility] Comment on above: Performed By: #### E RUR #### [facility] [address] [place] [address] Dr. Rosemary Ames MONO # 0.5 103/ul Normal 0.3-0.8 [facility] Comment on above: Performed By: #### E RUR #### [facility] [address] [place] [address] Dr. Rosemary Ames Monocytes/100 WBC (Bld) 6.1 % Normal 1.7-12.0 [facility] Comment on above: Performed By: #### E RUR #### [facility] [address] [place] [address] Dr. Rosemary Ames NEUT # 5.0 103/ul Normal 1.4-6.5 [facility] Comment on above: Performed By: #### E RUR #### [facility] [address] [place] [address] Dr. Rosemary Ames Neutrophils/100 WBC (Bld) 61.8 % Normal 43.0-75.0 [facility] Comment on above: Performed By: #### E RUR #### [facility] [address] [place] [address] Dr. Rosemary Ames Platelet mean volume (Bld) [Entitic vol] 9.9 fL Normal 9.5-13.5 [facility] Comment on above: Performed By: #### E RUR #### [facility] [address] [place] [address] Dr. Rosemary Ames PLT 284 103/ul Normal 150-450 [facility] Comment on above: Performed By: #### E RUR #### [facility] [address] [place] [address] Dr. Rosemary Ames RBC 5.04 106/ul Normal 4.20-5.40 [facility] Comment on above: Performed By: #### E RUR #### [facility] [address] [place] [address] Dr. Rosemary Ames WBC 8.0 103/ul Normal 4.0-11.0 [facility] Comment on above: Performed By: #### E RUR #### [facility] [address] [place] [address] Dr. Rosemary Ames FREE THYROXINE INDEX T7on FTI 2.31 Normal 1.30-4.50 [facility] Comment on above: Performed By: #### T 7, LIPID, TSH, CMADM, BNP, CMP #### [facility] [address] [place] [address] Dr. Rosemary Ames T3U 30.0 % Normal 30.0-39.0 [facility] Comment on above: Performed By: #### T 7, LIPID, TSH, CMADM, BNP, CMP #### [facility] [address] [place] [address] Dr. Rosemary Ames T4 [Mass/Vol] 7.70 ug/dL Normal 4.80-13.90 [facility] Comment on above: Performed By: #### T 7, LIPID, TSH, CMADM, BNP, CMP #### [facility] [address] [place] [address] Dr. Rosemary Ames GLYCOHEMOGLOBIN A1Con 2021 ADA RECOMMENDATION SEE BELOW Normal [facility] Comment on above: Result Comment: ADA RECOMMENDED LIMIT 4.0 - 6.0 ADA THERAPEUTIC TARGET < 7.0 ACTION SUGGESTED > 7.0 Performed By: #### A 1C #### [facility] [address] [place] [address] Dr. Rosemary Ames Glucose [Mass/Vol] 243 mg/dL Normal [facility] Comment on above: Performed By: #### A 1C #### [facility] [address] [place] [address] Dr. Rosemary Ames HbA1c (Bld) [Mass fraction] 10.1 % Critically high 4.5-6.2 [facility] Comment on above: Performed By: #### A 1C #### [facility] [address] [place] [address] Dr. Rosemary Ames IRONon 12-10-2021 Iron [Mass/Vol] 29.0 ug/dL Critically low 50.0-170.0 [facility] Comment on above: Performed By: #### A 1C #### [facility] [address] [address] [address] Rosemary Ames LIPID PROFILEon 12-10-2021 CHOL-HDL RATIO NORM SEE BELOW Normal [facility] Comment on above: Result Comment: 3.3 - 4.4 LOW RISK 4.4 - 7.1 AVERAGE RISK 7.1 - 11.0 MODERATE RISK >11.0 HIGH RISK Performed By: #### T 7, LIPID, TSH, CMADM, BNP, CMP #### [facility] [address] [address] [address] Rosemary Ames Cholesterol [Mass/Vol] 184 mg/dL Normal <=200 [facility] Comment on above: Performed By: #### T 7, LIPID, TSH, CMADM, BNP, CMP #### [facility] [address] [address] [address] Rosemary Ames Cholesterol in HDL [Mass/Vol] 44 mg/dL Normal 40-60 [facility] Comment on above: Performed By: #### T 7, LIPID, TSH, CMADM, BNP, CMP #### [facility] [address] [address] [address] Rosemary Ames Cholesterol in LDL [Mass/Vol] 94.6 mg/dL Normal [facility] Comment on above: Performed By: #### T 7, LIPID, TSH, CMADM, BNP, CMP #### [facility] [address] [address] [address] Rosemary Ames Cholesterol.total/Ch olesterol in HDL [Mass ratio] 4.2 {ratio} Normal [facility] Comment on above: Performed By: #### T 7, LIPID, TSH, CMADM, BNP, CMP #### [facility] [address] [address] [address] Rosemary Ames HDL NORMAL > or = 60 mg/dl - LO W CARDIOVASCULAR RISK <40 mg/dl - HIGH CARDIOVASCULAR RISK Normal [facility] Comment on above: Performed By: #### T 7, LIPID, TSH, CMADM, BNP, CMP #### [facility] [address] [address] [address] Rosemary Ames LDL CALC NORMAL SEE BELOW Normal [facility] Comment on above: Result Comment: <100 mg/dl OPTIMAL 100 - 129 mg/dl NEAR OR ABOVE OPTIMAL 130 - 159 mg/dl BORDERLINE HIGH 160 - 189 mg/dl HIGH >190 mg/dl VERY HIGH Performed By: #### T 7, LIPID, TSH, CMADM, BNP, CMP #### [facility] [address] [address] [address] Rosemary Ames Triglyceride [Mass/Vol] 227 mg/dL Critically high <=150 [facility] Comment on above: Performed By: #### T 7, LIPID, TSH, CMADM, BNP, CMP #### [facility] [address] [address] [address] Rosemary Ames VLDL CALC 45.4 mg/dL Normal [facility] Comment on above: Performed By: #### T 7, LIPID, TSH, CMADM, BNP, CMP #### [facility] [address] [address] [address] Rosemary Ames PROF 14(COMP METB)on 022 Albumin [Mass/Vol] 4.1 g/dL Normal 3.4-5.0 [facility] Comment on above: Performed By: #### T 7, LIPID, TSH, CMADM, BNP, CMP #### [facility] [address] [address] [address] Rosemary Ames Albumin/Globulin [Mass ratio] 1.1 {ratio} Normal [facility] Comment on above: Performed By: #### T 7, LIPID, TSH, CMADM, BNP, CMP #### [facility] [address] [address] [address] Rosemary Ames ALP [Catalytic activity/Vol] 83 U/L Normal 46-116 [facility] Comment on above: Performed By: #### T 7, LIPID, TSH, CMADM, BNP, CMP #### [facility] [address] [address] [address] Rosemary Ames ALT [Catalytic activity/Vol] 166 U/L Critically high 14-59 [facility] Comment on above: Performed By: #### T 7, LIPID, TSH, CMADM, BNP, CMP #### [facility] [address] [address] [address] Rosemary Ames Anion gap [Moles/Vol] 13.9 mmol/L Normal [facility] Comment on above: Performed By: #### T 7, LIPID, TSH, CMADM, BNP, CMP #### [facility] [address] [address] [address] Rosemary Ames AST [Catalytic activity/Vol] 97 U/L Critically high 15-37 [facility] Comment on above: Performed By: #### T 7, LIPID, TSH, CMADM, BNP, CMP #### [facility] [address] [address] [address] Rosemary Ames Bilirubin [Mass/Vol] 0.7 mg/dL Normal 0.2-1.0 [facility] Comment on above: Performed By: #### T 7, LIPID, TSH, CMADM, BNP, CMP #### [facility] [address] [place] [address] Dr. Rosemary Ames Calcium [Mass/Vol] 9.2 mg/dL Normal 8.5-10.1 [facility] Comment on above: Performed By: #### T 7, LIPID, TSH, CMADM, BNP, CMP #### [facility] [address] [place] [address] Dr. Rosemary Ames Chloride [Moles/Vol] 101 mmol/L Normal 98-107 [facility] Comment on above: Performed By: #### T 7, LIPID, TSH, CMADM, BNP, CMP #### [facility] [address] [address] [address] Rosemary Ames CO2 [Moles/Vol] 27.5 mmol/L Normal 21.0-32.[address] [facility] Comment on above: Performed By: #### T 7, LIPID, TSH, CMADM, BNP, CMP #### [facility] [address] [place] [address] Dr. Rosemary Ames Creatinine [Mass/Vol] 0.65 mg/dL Normal 0.55-1.02 [facility] Comment on above: Performed By: #### T 7, LIPID, TSH, CMADM, BNP, CMP #### [facility] [address] [address] [address] Rosemary Ames EGFR-AF DJIBOUTIAN >60 Normal >=60 [facility] Comment on above: Performed By: #### T 7, LIPID, TSH, CMADM, BNP, CMP #### [facility] [address] [address] [address] Rosemary Ames EGFR-NON AF DJIBOUTIAN >60 Normal >=60 [facility] Comment on above: Performed By: #### T 7, LIPID, TSH, CMADM, BNP, CMP #### [facility] [address] [address] [address] Rosemary Ames Globulin (S) [Mass/Vol] 3.8 g/dL Normal [facility] Comment on above: Performed By: #### T 7, LIPID, TSH, CMADM, BNP, CMP #### [facility] [address] [address] [address] Rosemary Ames Glucose [Mass/Vol] 299 mg/dL Critically high 74-106 [facility] Comment on above: Performed By: #### T 7, LIPID, TSH, CMADM, BNP, CMP #### [facility] [address] [address] [address] Rosemary Ames Potassium [Moles/Vol] 4.4 mmol/L Normal 3.5-5.1 [facility] Comment on above: Performed By: #### T 7, LIPID, TSH, CMADM, BNP, CMP #### [facility] [address] [address] [address] Rosemary Ames Protein [Mass/Vol] 7.9 g/dL Normal 6.4-8.[address] [facility] Comment on above: Performed By: #### T 7, LIPID, TSH, CMADM, BNP, CMP #### [facility] [address] [place] [address] Dr. Rosemary Ames Sodium [Moles/Vol] 138 mmol/L Normal 136-145 [facility] Comment on above: Performed By: #### T 7, LIPID, TSH, CMADM, BNP, CMP #### [facility] [address] [address] [address] Rosemary Ames Urea nitrogen [Mass/Vol] 8.0 mg/dL Normal 7.0-18.0 [facility] Comment on above: Performed By: #### T 7, LIPID, TSH, CMADM, BNP, CMP #### [facility] [address] [place], [place] [address] Dr. Rosemary Ames Urea nitrogen/Creatinine [Mass ratio] 12.3 mg/mg Normal [facility] Comment on above: Performed By: #### T 7, LIPID, TSH, CMADM, BNP, CMP #### [facility] [address] [address] [address] Rosemary Ames TSHon 12-10-2021 TSH 0.921 uIU/mL Normal 0.358-3.740 [facility] Comment on above: Performed By: #### T 7, LIPID, TSH, CMADM, BNP, CMP #### [facility] [address] [address] [address] Rosemary Ames MG MAMM DIAGNOSTIC 3D JESICA CA Don 11-29-2021 MG MAMM DIAGNOSTIC 3D JESICA CAD Patient: TESS ASHLEY Exam Date: 11/29/2021 : 1995 Gender:F Ordering : DR CHAMP BELL . Admission #: [id number] Family : Order #: [id number] CLICK HERE TO VIEW EXAM RADIOLOGY REPORT [...] breast cancer at age 41. LOCATION: [facility] BREAST COMPOSITION: Heterogeneously dense,which may obscure small [...] Beatty M.D. on 11/29/2021 at 09:59 Normal [facility] US BREAST RIGHT LIMITEDon US BREAST RIGHT LIMITED Patient: TESS ASHLEY Exam Date: 11/29/2021 : 1995 Gender:F Ordering : DR CHAMP BELL . Admission #: [id number] Family : Order #: [id number] CLICK HERE TO VIEW EXAM RADIOLOGY REPORT [...] breast cancer at age 41. LOCATION: [facility] BREAST COMPOSITION: Heterogeneously dense,which may obscure small [...] Beatty M.D. on 11/29/2021 at 09:59 Normal [facility] MRI BRAIN WO CONon MRI BRAIN [...] SEBLE BEATTY Date: 2021-09-13 12:13 Normal [facility] Coding Summary.on 08-29-2021 Coding Summary. CD:[id number] G h0bWw+PGhlYWQ+AY8QGDU wL23dsAGlgH0IU0nEFL1T YDZHXFAMQM7UVX2ubMR4N JdxN1FxskSg LwtggWGzLI68OHw4OHX3x CmqNAjrkK4roAJoP3r7Jw GyKY41nW36FIbxEUZiEiI 3LjZpbjsgbWFy Z4eaIoTsoZUiNtm+PHRhY mxlIHdpZHRoPScxMDAlJy LlcLebDN2dRi8pQSIaPRQ vbGxhcHNlOiBj r3fcEKCeXKfePD1rlPehP 9UacTA3QCKxe2f4Gz64uS I+MTOeDVR1qIgmYTwwh73 6TuNrj6cdUBJ9 bVDoJNhzDZO8Z58ct8Z3D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 [employer] Patient Education 2020 [employer]. Follow Up Care 08/24/2021 22:42:21 With:Champ Bell Address: [address] [place], [place] [id number] Business (1) When:Within 3 Day(s) [facility] [...] loss Unspecified alopecia [facility] Diagnosis Type 2 diabetes mellitus with hyperglycemia, unspecified whether oceanographic meteorologist insulin use (HCC)- Primary Thyroid disorder Unspecified disorder of thyroid Hair loss Unspecified alopecia [facility] Diagnosis Bleeding in early Unspecified hemorrhage in early , unspecified as to episode of care Follow-up exam Unspecified follow-up examination [facility] Diagnosis Type 2 diabetes mellitus in , second trimester- Primary Insulin pump in place Insulin pump status HTN in , chronic [facility] Diagnosis Type 2 diabetes mellitus in , second trimester- Primary Pre-existing type 2 diabetes mellitus during in first trimester [facility] Diagnosis Type 2 diabetes mellitus in , second trimester- Primary [facility] Diagnosis Type 2 diabetes mellitus in , second trimester- Primary [facility] Diagnosis Type 2 diabetes mellitus in , second trimester- Primary [facility] Diagnosis Type 2 diabetes mellitus in , second trimester- Primary [facility] Narrative No data available for this section [facility]ructionsNot on filedocumented in this encounter [facility] on filedocumented in this encounter [facility] on filedocumented in this encounter [facility] on filedocumented in this encounter [facility] SystemInstructionsNot on filedocumented in this encounter [facility] System[facility]ructionsNot on filedocumented in this encounter [facility] SystemProgress note No data available for this section [facility] for referral (narrative)* Consultation (Routine) - Pending Review Specialty Diagnoses / Procedures Referred By Juan Antonio t Referred To Contact Maternal and Medicine Diagnoses Type 2 diabetes mellitus in , second trimester Insulin pump in place Opal Heath, HOSTED SERVICES ANALYST-NET MOBILE DEVELOPER [address] [place] [address] Leana Burr MD [facility] [address], [address] [address] Referral ID Status Reason Start Date Expiration Date Visits Requested Visits Authorized [id number] Pending Review Specialty Services Required 05/07/2023 05/06/2024 1 1 [facility] for referral (narrative)* Consultation (Routine) - Pending Review Specialty Diagnoses / Procedures Referred By Contac t Referred To Contact Endocrinology Diagnoses Type 2 diabetes mellitus in , second trimester Mary Guidry [facility]NEN[facility] [address] [place] [id number] Leana Burr MD [facility] [address], [address] [address] Referral ID Status Reason Start Date Expiration Date Visits Requested Visits Authorized [id number] Pending Review Specialty Services Required 05/20/2023 05/19/2024 1 1 Electronically signed by Mary Guidry APRNENCOM[facility] at 05/20/2023 7:45 AM EDT [facility] for visit Narrative* Consultation (Routine) - Pending Review Specialty Diagnoses / Procedures Referred By Contac t Referred To Contact Endocrinology Diagnoses Type 2 diabetes mellitus in , second trimester Mary Guidry APRNEN[facility] [address] [place] [phone] Leana [facility] MD [facility] [address], [address] [address] Referral ID Status Reason Start Date Expiration Date Visits Requested Visits Authorized [id number] Pending Review Specialty Services Required 05/20/2023 05/19/2024 1 1 [facility] Summary Purpose Family History No Family History Records FoundNo Family History Records FoundNo Family History Records FoundNo Family History Records FoundNo Family History Records FoundNo Family History Records FoundNo Family History Records Found Advance Directives No Advanced Directives Records FoundDocuments on File Type Date Recorded Patient 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 Expl 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 Advance Directives and Livin g Will 05/02/2021 12:00 AM Reason for Referral Specialty Diagnoses / Procedures Referred By Contac t Referred To Contact Endocrinology Diagnoses Thyroid disorder Hair loss Champ Bell MD [address] [facility] [place] [place] [address] [place] [address] Gregorio Floyd MD [address] [place] [id number] Referral ID Status Reason Start Date Expiration Date Visits Requested Visits Authorized [id number] Authorized Specialty Services Required/Pat ient's Best Interest 05/04/2021 05/04/2022 1 1 Specialty Diagnoses / Procedures Referred By Contac t Referred To Contact Maternal and Medicine Diagnoses Type 2 diabetes mellitus in , second trimester Procedures US [facility] with or without consult Opal Heath, HOSTED SERVICES ANALYST-NET MOBILE DEVELOPER [address] [place] [address] [facility] Maternal Med [address] [place] [address] Referral ID Status Reason Start Date Expiration Date V isits Requested Visits Authorized [id number] Pending Review 05/08/2023 05/07/2024 1 1 Additional Source Comments INFORMATION SOURCE (unrecogn ized section and content) DATE CREATED AUTHOR 02/06/2021 [facility] DATE CREATED AUTHOR AUTHOR'S ORGANIZ ATION 08/27/2021 [facility] DATE CREATED AUTHOR AUTHOR'S ORGANIZ ATION 08/30/2021 [facility] DATE CREATED AUTHOR AUTHOR'S ORGANIZ ATION 06/02/2022 [facility] DATE CREATED AUTHOR AUTHOR'S ORGANIZ ATION 07/24/2023 [facility] DATE CREATED AUTHOR AUTHOR'S ORGANIZ ATION 08/12/2023 [facility] DATE CREATED AUTHOR AUTHOR'S ORGANIZ ATION 08/14/2023 [facility] Care Teams (unrecognized sec tion and content) Accounts Executive Relationship Specialty Start Date End Date Champ Bell MD [address] [place] [address] PCP - General Family Medicine 05/02/21 Accounts Executive Relationship Specialty Start Date End Date Champ Bell MD [address] [place], [place] [phone] PCP - General Family Medicine 05/02/21 Accounts Executive Relationship Specialty Start Date End Date Champ Bell MD [address] [place] [phone] PCP - General 03/13/23 Reason for Visit (unrecogniz ed section and content) Reason Comments Thyroid Problem Specialty Diagnoses / Procedures Referred By Contac t Referred To Contact Endocrinology Diagnoses Thyroid disorder Hair loss Champ Bell MD [address] [place] [address] Gregorio Floyd MD [address] [place] [id number] Referral ID Status Reason Start Date Expiration Date V isits Requested Visits Authorized [id number] Closed Specialty Services Required/Deanna ent's Best Interest 05/04/2021 05/04/2022 1 1 Reason Comments ER Follow-up Reason Comments t2dm Reason Comments Diabetes Specialty Diagnoses / Procedures Referred By Contac t Referred To Contact Maternal and Medicine Diagnoses Pre-existing type 2 diabetes mellitus during in first trimester Mario Conway, DO [address] , [place] [address] [facility] Maternal Med [address] [place] [address] Referral ID Status Reason Start Date Expiration Date Visits Requested Visits Authorized [id number] Pending Review Specialty Services Required 04/15/2023 04/14/2024 [...] BE BASED ON THE PRIMARY CLINICAL RECORDS. [facility] [employer] provides no warranty or guarantee of the accuracy or completeness of information in this document.
--- NOTE | 2023-08-19 11:02 | US_ITS ---
[address] [address] Patient Name: TESS CALVERT MRN: [facility]:[id number] date: 1995 Sex: F Assigned Patient Location: [facility] Current Patient Location: [facility] Accession/Order Number: [id number] Exam Date: 08/19/2023 11:03 Report Date: 08/19/2023 11:34 At the request of: PORSHA MOTA Procedure: US OB BPP w non-stress EXAMINATION: US OB BPP w non-stress HISTORY: Decreased movements O36.8120 COMPARISON: No relevant comparison available. TECHNIQUE: Ultrasound biophysical profile was performed in the radiology department. non-reactive stress testing was performed by nursing staff in the birthing center. FINDINGS: BREATHING MOVEMENTS: 2.0 GROSS BODY MOVEMENTS: 2.0 TONE: 2.0 QUALITATIVE AMNIOTIC FLUID VOLUME: 2.0 PRESENTATION: CEPHALIC HEART RATE: 148.4 bpm H.B./min AMNIOTIC FLUID VOLUME: 22.8 cm cm GESTATIONAL AGE: 30 weeks 0 days CONCLUSION: Total biophysical profile score: 8.0 Electronically authenticated by: MAY PILLAI Date: 08/19/2023 11:34
[2023-08-19 11:29] VITALS: BP 123/69; PULSE 110
== END 2023-08-19 12:35 | disposition home or self-care (01) ==
LOC: US 07:19 → FBC 11:01
PROVIDERS: PCP Family Medicine; Visit Provider Obstetrics & Gynecology
DX: O36.8120 Decreased fetal movements, second trimester, not applicable or unspecified (principal); Z3A.30 30 weeks gestation of pregnancy
CPT/HCPCS: 76818

== ENCOUNTER 2023-08-22 06:59 | Outpatient (OUT) | payer OTHER, SELFPAY ==
--- OUTSIDE RECORDS SUMMARY | 2023-08-22 07:02 | XMS_ITS | CCD ---
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 By: #### E RUR #### [facility] [address] [place] [address] Dr. Rosemary Ames Glucose Ql (U) Negative Normal NEGATIVE [facility] Comment on above: Performed By: #### E RUR #### [facility] [address] [place] [address] Dr. Rosemary Ames Hemoglobin Ql (U) Negative Normal NEGATIVE [facility] Comment on above: Performed By: #### E RUR #### [facility] [address] [place] [address] Dr. Rosemary Ames Ketones Ql (U) Negative Normal NEGATIVE [facility] Comment on above: Performed By: #### E RUR #### [facility] [address] [place] [address] Dr. Rosemary Ames LEUKOCYTES Negative Normal NEGATIVE [facility] Comment on above: Performed By: #### E RUR #### [facility] [address] [place] [address] Dr. Rosemary Ames Nitrite Ql (U) Negative Normal NEGATIVE [facility] Comment on above: Performed By: #### E RUR #### [facility] [address] [place] [address] Dr. Rosemary Ames pH (U) 6.0 [pH] Normal 5-9 [facility] Comment on above: Performed By: #### E RUR #### [facility] [address] [place] [address] Dr. Rosemary Ames SPEC GRAVITY 1.015 Normal 1.005-<=1.02 5 [facility] Comment on above: Performed By: #### E RUR #### [facility] [address] [place] [address] Dr. Rosemary Ames UA PROTEIN Negative Normal NEGATIVE/ TRACE [facility] Comment on above: Performed By: #### E RUR #### [facility] [address] [place] [address] Dr. Rosemary Ames UR MICRO IND NOT INDICATED Normal [facility] Comment on above: Performed By: #### E RUR #### [facility] [address] [place] [address] Dr. Rosemary Ames Urobilinogen Qn (U) 0.2 {Vincent'U}/dL Normal 0.2 - 1. 0 [facility] Comment on above: Performed By: #### E RUR #### [facility] [address] [place] [address] Dr. Rosemary Ames INFLUENZA A AND B AGon 03-13 INFLUANEGH SEE BELOW Normal [facility] Comment on above: Result Comment: Nega tive for Flu A protein angiten. Infection due to Flu A cannot be ruled out. Flu A angiten in the sample may be below the detection limit of the test. Performed By: #### E RUR #### [facility] [address] [place] [address] Dr. Rosemary Ames INFLUBNEGH SEE BELOW Normal [facility] Comment on above: Result Comment: Nega tive for Flu B protein antigen. Infection due to Flu B cannot be ruled out. Flu B antigen in the sample may be below the detection limit of the test. Performed By: #### E RUR #### [facility] [address] [place] [address] Dr. Rosemary Ames INFLUENZA A AG Negative Normal NEGATIVE SEE COMMENT [facility] Comment on above: Performed By: #### E RUR #### [facility] [address] [place] [address] Dr. Rosemary Ames INFLUENZA B AG Negative Normal NEGATIVE SEE COMMENT [facility] Comment on above: Performed By: #### E RUR #### [facility] [address] [place] [address] Dr. Rosemary Ames LACTATE/LACTIC ACIDon 2022 Lactate [Moles/Vol] 2.0 mmol/L Critically high 0.4-1.9 [facility] Comment on above: Performed By: #### A 1C #### [facility] [address] [place] [address] Dr. Rosemary Ames LIPASEon 03-13-2022 Lipase [Catalytic activity/Vol] 79.0 U/L Normal 73.0-393.0 [facility] Comment on above: Performed By: #### A 1C #### [facility] [address] [address] [address] Rosemary Ames PREG HCG QUALon 03-13-2022 , QUAL Negative Normal NEGATIVE [facility] Comment on above: Performed By: #### A 1C #### [facility] [address] [place] [address] Dr. Rosemary Ames PROF 14(COMP METB)on 023 Albumin [Mass/Vol] 4.1 g/dL Normal 3.4-5.0 [facility] Comment on above: Performed By: #### A 1C #### [facility] [address] [place] [address] Dr. Rosemary Ames Albumin/Globulin [Mass ratio] 1.1 {ratio} Normal [facility] Comment on above: Performed By: #### A 1C #### [facility] [address] [place] [address] Dr. Rosemary Ames ALP [Catalytic activity/Vol] 77 U/L Normal 46-116 [facility] Comment on above: Performed By: #### A 1C #### [facility] [address] [place] [address] Dr. Rosemary Ames ALT [Catalytic activity/Vol] 149 U/L Critically high 14-59 [facility] Comment on above: Performed By: #### A 1C #### [facility] [address] [place] [address] Dr. Rosemary Ames Anion gap [Moles/Vol] 16.0 mmol/L Normal [facility] Comment on above: Performed By: #### A 1C #### [facility] [address] [place] [address] Dr. Rosemary Ames AST [Catalytic activity/Vol] 82 U/L Critically high 15-37 [facility] Comment on above: Performed By: #### A 1C #### [facility] [address] [place] [address] Dr. Rosemary Ames Bilirubin [Mass/Vol] 1.0 mg/dL Normal 0.2-1.0 [facility] Comment on above: Performed By: #### A 1C #### [facility] [address] [address] [address] Rosemary Ames Calcium [Mass/Vol] 9.1 mg/dL Normal 8.5-10.1 [facility] Comment on above: Performed By: #### A 1C #### [facility] [address] [address] [address] Rosemary Ames Chloride [Moles/Vol] 96 mmol/L Critically low 98-107 [facility] Comment on above: Performed By: #### A 1C #### [facility] [address] [address] [address] Rosemary Ames CO2 [Moles/Vol] 25.7 mmol/L Normal 21.0-32.0 [facility] Comment on above: Performed By: #### A 1C #### [facility] [address] [place] [address] Dr. Rosemary Ames Creatinine [Mass/Vol] 0.78 mg/dL Normal 0.55-1.02 [facility] Comment on above: Performed By: #### A 1C #### [facility] [address] [address] [address] Rosemary Ames EGFR-AF STATELESS >60 Normal >=60 [facility] Comment on above: Performed By: #### A 1C #### [facility] [address] [place] [address] Dr. Rosemary Ames EGFR-NON AF STATELESS >60 Normal >=60 [facility] Comment on above: Performed By: #### A 1C #### [facility] [address] [place] [address] Dr. Rosemary Ames Globulin (S) [Mass/Vol] 3.9 g/dL Normal [facility] Comment on above: Performed By: #### A 1C #### [facility] [address] [place] [address] Dr. Rosemary Ames Glucose [Mass/Vol] 190 mg/dL Critically high 74-106 [facility] Comment on above: Performed By: #### A 1C #### [facility] [address] [address] [address] Rosemary Ames Potassium [Moles/Vol] 3.7 mmol/L Normal 3.5-5.1 [facility] Comment on above: Performed By: #### A 1C #### [facility] [address] [place] [address] Dr. Rosemary Ames Protein [Mass/Vol] 8.0 g/dL Normal 6.4-8.2 [facility] Comment on above: Performed By: #### A 1C #### [facility] [address] [place] [address] Dr. Rosemary Ames Sodium [Moles/Vol] 134 mmol/L Critically low 136-145 [facility] Comment on above: Performed By: #### A 1C #### [facility] [address] [place] [address] Dr. Rosemary Ames Urea nitrogen [Mass/Vol] 9.0 mg/dL Normal 7.0-18.0 [facility] Comment on above: Performed By: #### A 1C #### [facility] [address] [place] [address] Dr. Rosemary Ames Urea nitrogen/Creatinine [Mass ratio] 11.5 mg/mg Normal [facility] Comment on above: Performed By: #### A 1C #### [facility] [address] [place] [address] Dr. Rosemary Ames TROPONIN, HIGH SENSITIVITYon 03-13-2022 HSTROP <4.0 Normal 4.0-51.3 [facility] Comment on above: Result Comment: CUT- OFF POINTS HAVE BEEN ESTABLISHED BASED ON THE FOURTH UNIVERSAL DEFINITIONS OF MYOCARDIAL INFARCTION. THE UPPER REFERENCE LIMIT (URL) OF TROPONIN, DEFINED THE 99TH PERCENTILE OF cTnI DISTRIBUTION IN A REFERENCE POPULATION, HAS BEEN CONFIRMED THE DECISION THRESHOLD FOR [place] DIAGNOSIS. Previously reported as: 3.9 On 03/13/2022 18:24 By DM9 Performed By: #### A 1C #### [facility] [address] [place] [address] Dr. Rosemary Ames TSHon 03-13-2022 TSH 0.440 uIU/mL Normal 0.358-3.740 [facility] Comment on above: Performed By: #### A 1C #### [facility] [address] [address] [address] Rosemary Ames XR CHEST 1 Von [...] TUAN LEWIS Date: 2022-03-13 18:59 Normal [facility] INSULINon 12-11-2021 Insulin 40.7 uIU/mL Critically high 2.6-24.9 [facility] Comment on above: Performed By: #### A 1C #### [facility] [address] [place] [address] Dr. Rosemary Ames BNPon 12-10-2021 NT PRO BNP <11.1 Normal <=450.0 [facility] Comment on above: Performed By: #### T 7, LIPID, TSH, CMADM, BNP, CMP #### [facility] [address] [place] [address] Dr. Rosemary Ames CARDIAC RY ADMITon 022 CK [Catalytic activity/Vol] 80 U/L Normal 26-192 [facility] Comment on above: Performed By: #### T 7, LIPID, TSH, CMADM, BNP, CMP #### [facility] [address] [place] [address] Dr. Roseamry Ames CK.MB [Mass/Vol] 0.56 ng/mL Normal <=3.60 [facility] Comment on above: Performed By: #### T 7, LIPID, TSH, CMADM, BNP, CMP #### [facility] [address] [place] [address] Dr. Rosemary Ames HSTROP 5.3 pg/mL Normal 4.0-51.3 [facility] Comment on above: Result Comment: CUT- OFF POINTS HAVE BEEN ESTABLISHED BASED ON THE FOURTH UNIVERSAL DEFINITIONS OF MYOCARDIAL INFARCTION. THE UPPER REFERENCE LIMIT (URL) OF TROPONIN, DEFINED THE 99TH PERCENTILE OF cTnI DISTRIBUTION IN A REFERENCE POPULATION, HAS BEEN CONFIRMED THE DECISION THRESHOLD FOR [place] DIAGNOSIS. Performed By: #### T 7, LIPID, TSH, CMADM, BNP, CMP #### [facility] [address] [place] [address] Dr. Rosemary Ames RADHA 26 ng/mL Normal 9-82 [facility] Comment on above: Performed By: #### T 7, LIPID, TSH, CMADM, BNP, CMP #### [facility] [address] [place] [address] Dr. Rosemary Ames CBC AUTO DIFFon 12-10-2021 BASO # 0.0 103/ul Normal 0.0-0.1 [facility] Comment on above: Performed By: #### E RUR #### [facility] [address] [place] [address] Dr. Rosemary Ames Basophils/100 WBC (Bld) 0.4 % Normal 0.2-2.0 [facility] Comment on above: Performed By: #### E RUR #### [facility] [address] [place] [address] Dr. Rosemary Ames EO # 0.1 103/ul Normal 0.0-0.7 [facility] Comment on above: Performed By: #### E RUR #### [facility] [address] [place] [address] Dr. Rosemary Ames Eosinophils/100 WBC (Bld) 1.0 % Normal 0.9-7.0 [facility] Comment on above: Performed By: #### E RUR #### [facility] [address] [place] [address] Dr. Rosemary Ames Erythrocyte distribution width (RBC) [Ratio] 13.7 % Normal 11.0-15.0 [facility] Comment on above: Performed By: #### E RUR #### [facility] [address] [place] [address] Dr. Rosemary Ames Hematocrit (Bld) [Volume fraction] 40.9 % Normal 36.0-48.0 [facility] Comment on above: Performed By: #### E RUR #### [facility] [address] [place] [address] Dr. Rosemary Ames Hemoglobin (Bld) [Mass/Vol] 13.0 g/dL Normal 12.0-16.0 [facility] Comment on above: Performed By: #### E RUR #### [facility] [address] [place] [address] Dr. Rosemary Ames IG # 0.03 10e3/ul Normal 0.00-0.03 [facility] Comment on above: Performed By: #### E RUR #### [facility] [address] [place] [address] Dr. Rosemary Ames IG % 0.4 % Normal 0.0-0.5 [facility] Comment on above: Performed By: #### E RUR #### [facility] [address] [place] [address] Dr. Rosemary Ames LYMPH # 2.4 103/ul Normal 1.2-3.8 [facility] Comment on above: Performed By: #### E RUR #### [facility] [address] [place] [address] Dr. Rosemary Ames Lymphocytes/100 WBC (Bld) 30.3 % Normal 20.5-60.0 [facility] Comment on above: Performed By: #### E RUR #### [facility] [address] [place] [address] Dr. Rosemary Ames MANUAL DIFF REQ NO Normal [facility] Comment on above: Performed By: #### E RUR #### [facility] [address] [place] [address] Dr. Rosemary Ames MCH (RBC) [Entitic mass] 25.8 pg Critically low 26.7-34.0 [facility] Comment on above: Performed By: #### E RUR #### [facility] [address] [place] [address] Dr. Rosemary Ames MCHC (RBC) [Mass/Vol] 31.8 g/dL Normal 29.9-35.2 [facility] Comment on above: Performed By: #### E RUR #### [facility] [address] [place] [address] Dr. Rosemary Ames MCV (RBC) [Entitic vol] 81.2 fL Normal 81.0-99.0 [facility] Comment on above: Performed By: #### E RUR #### [facility] [address] [place] [address] Dr. Rosemary Ames MONO # 0.5 103/ul Normal 0.3-0.8 [facility] Comment on above: Performed By: #### E RUR #### [facility] [address] [place] [address] Dr. Rosemary Ames Monocytes/100 WBC (Bld) 6.1 % Normal 1.7-12.0 [facility] Comment on above: Performed By: #### E RUR #### [facility] [address] [place] [address] Dr. Rosemary Ames NEUT # 5.0 103/ul Normal 1.4-6.5 [facility] Comment on above: Performed By: #### E RUR #### [facility] [address] [place] [address] Dr. Rosemary Ames Neutrophils/100 WBC (Bld) 61.8 % Normal 43.0-75.0 [facility] Comment on above: Performed By: #### E RUR #### [facility] [address] [place] [address] Dr. Rosemary Ames Platelet mean volume (Bld) [Entitic vol] 9.9 fL Normal 9.5-13.5 [facility] Comment on above: Performed By: #### E RUR #### [facility] [address] [place] [address] Dr. Rosemary Ames PLT 284 103/ul Normal 150-450 [facility] Comment on above: Performed By: #### E RUR #### [facility] [address] [place] [address] Dr. Rosemary Ames RBC 5.04 106/ul Normal 4.20-5.40 [facility] Comment on above: Performed By: #### E RUR #### [facility] [address] [address] [address] Rosemary Ames WBC 8.0 103/ul Normal 4.0-11.0 [facility] Comment on above: Performed By: #### E RUR #### [facility] [address] [address] [address] Rosemary Ames FREE THYROXINE INDEX T7on FTI 2.31 Normal 1.30-4.50 [facility] Comment on above: Performed By: #### T 7, LIPID, TSH, CMADM, BNP, CMP #### [facility] [address] [place] [address] Dr. Rosemary Ames T3U 30.0 % Normal 30.0-39.0 [facility] Comment on above: Performed By: #### T 7, LIPID, TSH, CMADM, BNP, CMP #### [facility] [address] [place] [address] Dr. Rosemary Ames T4 [Mass/Vol] 7.70 ug/dL Normal 4.80-13.90 [facility] Comment on above: Performed By: #### T 7, LIPID, TSH, CMADM, BNP, CMP #### [facility] [address] [place] [address] Dr. Rosemayr Ames GLYCOHEMOGLOBIN A1Con 2021 ADA RECOMMENDATION SEE BELOW Normal [facility] Comment on above: Result Comment: ADA RECOMMENDED LIMIT 4.0 - 6.0 ADA THERAPEUTIC TARGET < 7.0 ACTION SUGGESTED > 7.0 Performed By: #### A 1C #### [facility] [address] [place] [address] Dr. Rosemary Ames Glucose [Mass/Vol] 243 mg/dL Normal [facility] Comment on above: Performed By: #### A 1C #### [facility] [address] [place] [address] Dr. Rosemary Ames HbA1c (Bld) [Mass fraction] 10.1 % Critically high 4.5-6.2 [facility] Comment on above: Performed By: #### A 1C #### [facility] [address] [place] [address] Dr. Rosemary Ames IRONon 12-10-2021 Iron [Mass/Vol] 29.0 ug/dL Critically low 50.0-170.0 [facility] Comment on above: Performed By: #### A 1C #### [facility] [address] [address] [address] Rosemary Ames LIPID PROFILEon 12-10-2021 CHOL-HDL RATIO NORM SEE BELOW Normal [facility] Comment on above: Result Comment: 3.3 - 4.4 LOW RISK 4.4 - 7.1 AVERAGE RISK 7.1 - 11.0 MODERATE RISK >11.0 HIGH RISK Performed By: #### T 7, LIPID, TSH, CMADM, BNP, CMP #### [facility] [address] [address] [address] Rosemary Ames Cholesterol [Mass/Vol] 184 mg/dL Normal <=200 [facility] Comment on above: Performed By: #### T 7, LIPID, TSH, CMADM, BNP, CMP #### [facility] [address] [address] [address] Rosemary Ames Cholesterol in HDL [Mass/Vol] 44 mg/dL Normal 40-60 [facility] Comment on above: Performed By: #### T 7, LIPID, TSH, CMADM, BNP, CMP #### [facility] [address] [address] [address] Rosemary Ames Cholesterol in LDL [Mass/Vol] 94.6 mg/dL Normal [facility] Comment on above: Performed By: #### T 7, LIPID, TSH, CMADM, BNP, CMP #### [facility] [address] [address] [address] Rosemary Ames Cholesterol.total/Chol esterol in HDL [Mass ratio] 4.2 {ratio} Normal [facility] Comment on above: Performed By: #### T 7, LIPID, TSH, CMADM, BNP, CMP #### [facility] [address] [address] [address] Rosemary Ames HDL NORMAL > or = 60 mg/dl - LOW CARDIOVASCULAR RISK <40 mg/dl - HIGH CARDIOVASCULAR RISK Normal [facility] Comment on above: Performed By: #### T 7, LIPID, TSH, CMADM, BNP, CMP #### [facility] [address] [address] [address] Rosemary Ames LDL CALC NORMAL SEE BELOW Normal [facility] Comment on above: Result Comment: <100 mg/dl OPTIMAL 100 - 129 mg/dl NEAR OR ABOVE OPTIMAL 130 - 159 mg/dl BORDERLINE HIGH 160 - 189 mg/dl HIGH >190 mg/dl VERY HIGH Performed By: #### T 7, LIPID, TSH, CMADM, BNP, CMP #### [facility] [address] [address] [address] Rosemary Ames Triglyceride [Mass/Vol] 227 mg/dL Critically high <=150 [facility] Comment on above: Performed By: #### T 7, LIPID, TSH, CMADM, BNP, CMP #### [facility] [address] [address] [address] Rosemary Ames VLDL CALC 45.4 mg/dL Normal [facility] Comment on above: Performed By: #### T 7, LIPID, TSH, CMADM, BNP, CMP #### [facility] [address] [address] [address] Rosemary Ames PROF 14(COMP METB)on 022 Albumin [Mass/Vol] 4.1 g/dL Normal 3.4-5.0 [facility] Comment on above: Performed By: #### T 7, LIPID, TSH, CMADM, BNP, CMP #### [facility] [address] [address] [address] Rosemary Ames Albumin/Globulin [Mass ratio] 1.1 {ratio} Normal [facility] Comment on above: Performed By: #### T 7, LIPID, TSH, CMADM, BNP, CMP #### [facility] [address] [address] [address] Rosemary Ames ALP [Catalytic activity/Vol] 83 U/L Normal 46-116 [facility] Comment on above: Performed By: #### T 7, LIPID, TSH, CMADM, BNP, CMP #### [facility] [address] [address] [address] Rosemary Ames ALT [Catalytic activity/Vol] 166 U/L Critically high 14-59 [facility] Comment on above: Performed By: #### T 7, LIPID, TSH, CMADM, BNP, CMP #### [facility] [address] [address] [address] Rosemary Ames Anion gap [Moles/Vol] 13.9 mmol/L Normal Th [facility] Comment on above: Performed By: #### T 7, LIPID, TSH, CMADM, BNP, CMP #### [facility] [address] [address] [address] Rosemary Ames AST [Catalytic activity/Vol] 97 U/L Critically high 15-37 [facility] Comment on above: Performed By: #### T 7, LIPID, TSH, CMADM, BNP, CMP #### [facility] [address] [place] [address] Dr. Rosemary Ames Bilirubin [Mass/Vol] 0.7 mg/dL Normal 0.2-1.0 [facility] Comment on above: Performed By: #### T 7, LIPID, TSH, CMADM, BNP, CMP #### [facility] [address] [address] [address] Rosemary Ames Calcium [Mass/Vol] 9.2 mg/dL Normal 8.5-10.1 [facility] Comment on above: Performed By: #### T 7, LIPID, TSH, CMADM, BNP, CMP #### [facility] [address] [place] [address] Dr. Rosemary Ames Chloride [Moles/Vol] 101 mmol/L Normal 98-107 [facility] Comment on above: Performed By: #### T 7, LIPID, TSH, CMADM, BNP, CMP #### [facility] [address] [place] [address] Dr. Rosemary Ames CO2 [Moles/Vol] 27.5 mmol/L Normal 21.0-32.0 [facility] Comment on above: Performed By: #### T 7, LIPID, TSH, CMADM, BNP, CMP #### [facility] [address] [address] [address] Rosemary Ames Creatinine [Mass/Vol] 0.65 mg/dL Normal 0.55-1.02 [facility] Comment on above: Performed By: #### T 7, LIPID, TSH, CMADM, BNP, CMP #### [facility] [address] [address] [address] Rosemary Ames EGFR-AF STATELESS >60 Normal >=60 [facility] Comment on above: Performed By: #### T 7, LIPID, TSH, CMADM, BNP, CMP #### [facility] [address] [address] [address] Rosemary Ames EGFR-NON AF STATELESS >60 Normal >=60 [facility] Comment on above: Performed By: #### T 7, LIPID, TSH, CMADM, BNP, CMP #### [facility] [address] [place] [address] Dr. Rosemary Ames Globulin (S) [Mass/Vol] 3.8 g/dL Normal [facility] Comment on above: Performed By: #### T 7, LIPID, TSH, CMADM, BNP, CMP #### [facility] [address] [place] [address] Dr. Rosemary Ames Glucose [Mass/Vol] 299 mg/dL Critically high 74-106 [facility] Comment on above: Performed By: #### T 7, LIPID, TSH, CMADM, BNP, CMP #### [facility] [address] [place] [address] Dr. Rosemary Ames Potassium [Moles/Vol] 4.4 mmol/L Normal 3.5-5.1 [facility] Comment on above: Performed By: #### T 7, LIPID, TSH, CMADM, BNP, CMP #### [facility] [address] [place] [address] Dr. Rosemary Ames Protein [Mass/Vol] 7.9 g/dL Normal 6.4-8.2 [facility] Comment on above: Performed By: #### T 7, LIPID, TSH, CMADM, BNP, CMP #### [facility] [address] [place] [address] Dr. Rosemary Ames Sodium [Moles/Vol] 138 mmol/L Normal 136-145 [facility] Comment on above: Performed By: #### T 7, LIPID, TSH, CMADM, BNP, CMP #### [facility] [address] [address] [address] Rosemary Ames Urea nitrogen [Mass/Vol] 8.0 mg/dL Normal 7.0-18.0 [facility] Comment on above: Performed By: #### T 7, LIPID, TSH, CMADM, BNP, CMP #### [facility] [address] [address] [address] Rosemary Ames Urea nitrogen/Creatinine [Mass ratio] 12.3 mg/mg Normal [facility] Comment on above: Performed By: #### T 7, LIPID, TSH, CMADM, BNP, CMP #### [facility] [address] [place] [address] Dr. Rosemary Ames TSHon 12-10-2021 TSH 0.921 uIU/mL Normal 0.358-3.740 [facility] Comment on above: Performed By: #### T 7, LIPID, TSH, CMADM, BNP, CMP #### [facility] [address] [place] [address] Dr. Rosemary Ames [facility] 3D JESICA CA Don 11-29-2021 [facility] 3D JESICA CAD Patient: TESS ASHLEY Exam Date: 11/29/2021 : 1995 Gender:F Ordering : DR CHAMP BELL . Admission #: [id number] Family : Order #: [id number] CLICK HERE TO VIEW EXAM RADIOLOGY REPORT [...] breast cancer at age 41. LOCATION: [facility] BREAST COMPOSITION: Heterogeneously dense,which may [...] Beatty M.D. on 11/29/2021 at 09:59 Normal [facility] US BREAST RIGHT LIMITEDon US BREAST RIGHT LIMITED Patient: TESS ASHLEY Exam Date: 11/29/2021 : 1995 Gender:F Ordering : DR CHAMP BELL . Admission #: [id number] Family : Order #: [id number] CLICK HERE TO VIEW EXAM RADIOLOGY REPORT [...] breast cancer at age 41. LOCATION: [facility] BREAST COMPOSITION: Heterogeneously dense,which may [...] Beatty M.D. on 11/29/2021 at 09:59 Normal [facility] MRI BRAIN WO CONon 2 [...] SEBLE BEATTY Date: 2021-09-13 12:13 Normal [facility] Coding Summary.on 08-29-2021 Coding Summary. CD:[id number] Gh0bWw+PGhlYWQ+PE1FV VOaD70jiDPsuR7AS1jBU K5SURZOSDBDTB8AWB1pf LO7ZApxH9KspnJz YfasyXYzHO10VLm0FSN1 jFnfROhzsM3lbZVrC4z0 TbGiLO25rM75ECqlCTOz DtX5XkZwhhoeaZBo L7naMwWatZBiBbq+PHRh YmxlIHdpZHRoPScxMDAl SnXanKduEB0xRj4mTIKy LWNvbGxhcHNlOiBj r0reJCZzEQmmAK0euNnu C6XtlTV9EUJda1y1Fu15 dHI+GHVfVKG3jGvaYJwc j667OfUbt2hvIEK8 sXXxXNlvQCD9V87zr6E5 OBMmWESkHDN5nQQ3iU7z lCmbxlzvH7VyzGMtWmL6 VJW7nHNmvX2ooHqr dzfxpA3wIkm+R70SYC8Z QOQTNE1ILhl8T1IfDmzm dHI+XI93TGPfDT24bQUb kFAvp4ekmVu1UzPy YJHgEDX4iUzfSYplp8Ct MTRnA57osGNka3N5PKOg uFvhzONhTjPofLE0oH4u PRplokwir5tcvpkm Pjbvx6jegs86fI04O94r ERalBRBoWGF7WSCgQWLs rSonsf8hnX9tBv0+IDxj u0ysx2gpuZh2MwBe GUNoulNshQoyYLZ5q9Lj Fx05P3IivLlob8OiZpq1 dp03jTYae2X0jIH0KOee KWPrvW7eELgbAeU9 UFCrYeOhgS69mCLbNMgu Hz6xdGttyJazMP4hNMRo rbpgTIWcsX5cOPDknUZh fGhgPI9tBNUjyven h472CrHpQHB2KVXauBJo W2TipT5kKxXfTLFvZDFe K2DgvIXsZZwuS020ZQvn GfZ9OAPziuIkG3Iq PDMmtYnvWwA6l3H4Vh0W k4YedaovADF6BZgnODH3 ZmBnMpIdCrP1J8IjCxk6 MPNdgIvfYY2uS7Es CDNkdqtttfunuDL9NKXy PNJvcM14mXBjWVbxTs9s e0S9p796KJHdJAKgsZ32 Ya1szOwqGNGqwNGY dT7hvppzm0vslvrhMvWr YEVuEOi2VGv0UQOraHww PnVhBFA2MyE4FYJ0cMUi hP2kgQijnfhymM3a Oyc+U43xnS9aJBG7TZS6 nfyxKBOqnuDdZF12FW01 C7LsKabuwPRhkIE+PGRp lxFxiNevLI7lJcUm n8xeg2RaPTohA8WwVAOy FTaeFpb8SLSsKFG2xPG1 pD0cMEOpWEaee1L9iOZ2 W6VhywDywy0xb1uv VJKuXIcqG65gqVHjo6B4 TESjvVK1MCRtdGcaChXt oB73Wfr+MFVcvDafe3Jl Wkfkd0jlu8awfYe1 IjMwJSIgdmFsaWduPSJ0 n5TiMo30I52eCSxuQOFm UFCvMBHnZNWaiEragd4e eM7hOw2+PGNvbCB3 eOY7vE5iOONwHxT5ZNkk C939NtHsuFWkMcetb0ip x8hykHf3RnXaEBNovyHa qLtnZKS2y2NeGw10 S91mJVlwOGNpNAZaPXLb LGElrJcefs9isC4kIr8+ BF3jb3vjlw04rO08wRK+ GKNyMKQ7dAzoMTwm QBOteS1eGWdlIfI0NYBx RgWgxJ69cGUsEDwjQs6v aQlhsYauRU8oDSJajmib v176LiCcu7osJOGg sHHmBIiyGPR1H33rt8M7 URKdXIZkJAS3xJK5iA2a bGlnbjogbGVmdDsgdmVy lJlsXMkxXUixL206 IHRvcDsnPlBhdGllbnQg EaThUSg8J8MqEcy9XQXd yJerJR6egQCtVHniRr5t iHgiuEzmXR5eZOBp awgar555VqGzl0unNMAx vMNwBVjqHUB6U68qv7M7 JSNfNPZfHWG2vRY6oU8r bGlnbjogbGVmdDsg nhVxwIlpOEqgGVosU655 IHRvcDsnPkJpcnRoIERh oHZ4FB65MU57cOEcx3Z7 bQD5H6GjHOLuwfte fsnkxJG2ODRgBVBnnZ46 Zh2ezVfeOf1iWAEhKVJ0 TALioYEtP1WjhA0dCeQr DMGaLZCpF5ObsEYj KNnaE767SWlbEoP1KAVv vrLoS6SaLHFieZfaHuU8 y1G1Ls8RT8S5IO74GD26 jAFqc4Z0sXG8W8Xq HNDyaacfkvmdkAB8CSVx UJVojN58Ut6trJyrJq0v PYAuCMJ3TKSvtDApH4Jo cO1lVmErJDUlOSPn V2RwgHXyAKuyB382KPqx LwY9YXYeioKcO4TjZTMx bYekPvM1n0W9Xu4BAKl1 SS95KC11wELfq5G0 rBI1R5ZxWFHhcvoctgrv rYJ2WNYoVPHubD06Vd9p hRipAy9zOWHsARR2GJLw oLHnZ7AhvI7xCdNw XZBrKMPeD1TjlKVzLYzi I890VDnlBjC2QPPdcaOq H9FsFKQdyJhjKrI6h2W1 Ib5TFTDcRK19JUY7 yEG0AQ79UL59S5IpLrxb dGFibGU+PHRhYmxlIHdp ZHRoPScxMDAlJyBzdHls AX1jRl4vUSKrMLVi pZwaoVZgAdWmo6mnHYHa VUjnDF4tcNqpF5XyaQC9 BPZkb7a7Gy06T80aZ7Kc dXA+HYCrgSC5uTU7 lJ2pUjShEoQ2HUlbD827 PzQrgVNbZtvle4xny3rx aGf3QhP2LWRilwOmkVyh OOB7w8KmSj35F49c IHdpZHRoPSIxNSUiIHZh aJkzwm5abX6wGn9+PGNv zCX9hYR5vO5uCtCjAdT8 TForF909LsHrtMSc Rxznu1tzk4gnbWx8RyVx VFUrrcHdeIbjCEC6q3Pk Ub55Z5MgrQidw7NbIcd8 jz27hNTjd6D2wSG6 K2ObNBDyfffvkTYjvYrr UW7yEKBbousiSLBohZ1y GPAnE0b3OtMdDkK2FOsu H2NnlsN0PLUxhZUq FGydUWD2W46ae2P3KJQg QOBaAUV1eFX3uT8zaLii bjogbGVmdDsgdmVydGlj OTdvCFatM417FIAf yKayBGBqbZ3hHDChhVTf lIqzAO6oXCDznttyPsPV SMwMDsjjX1YEN70EVEVY QKG6D1JpQfu6QXCm pWejFM9buMRlZAslNw2m wLtirBbbSI1xIYZzjrrq UUKzoJ9rSBMjhGOjgHla CU1aLEIgrkbbd081 UdEmENB4OZNedYBbG4Co cH6tVbQxVZDzDFDsG9Ay pMHeWZvxH995DXchZxL5 DTVwmmYsY7AoFEXg yGalOmQ3v5F3Ia6tGD8t Fx1zKOx0CW90CD72bJYb j1E8lEB2J3IyWSOeivnp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 PM EST Nutritional Assessment Form Date: 05/07/2023 KULDIP: Estimated Date of Delivery: 10/28/23 EGA: 15w1d Past Medical History: Diagnosis Date Diabetes mellitus ([facility]) Disease of thyroid gland Hypertension OB History [...] (25 mg total) by mouth every 12 (twelve)hours. OMNIPOD 5 G6 PODS, GEN 5, cartridge [...] cooking/food storage has all Food Assistance(Ex.WIC, Food [place]) has apt Dining out Yes 1 time per month Appetite/Appetite changes increased Weight History stable Do you have cats at home? Infant Feeding Plans Breast Feeding If you have cats, who cleans the litter box? Cravings/Aversions/Pica none currently Nutrition Assessment Worksheet: Week/Weekend Food Recall Breakfast [place] Or cereal Or eggs Snack Lunch Grilled cheese Or noodles Snack Dinner 2 Cheeseburger Sugar free pink lemonade Snack Snack Time Tess Pfeiffer present for diet instruction per doctor order secondary to diagnosis of Type 2diabetes. She is currently on a Omnipod pump. She expressed confidence in carb counting and bolusing on her pump. Food recall suggests patient typically consumes a diet of mainly convenience foods. Pt has gained 6# to date. Based on patient's stated pre- weight, weight gain goal is 11-20#.Nutrition diagnosis: inconsistent and excessive carbohydrate intake related [...] Management Support Plan, patient chose to use MyDazonessPal to help manage her diabetes. Patient understands that we will follow up weekly with a phone call to review progress. Face to face time 40 minutes. documented in this [facility] [id number] Instructions* Patient Instructions* Danyell Ortiz RN - 05/07/2023 1:00 PM [...] 4 HOURS WHILE AWAKE documented in this [facility] [id number] Miscellaneous Notes* Telephone Encounter - Danyell Ortiz RN - 04/23/2023 12:23 PM EST Called pt due toher not coming to her appt today and she stated she had left a message that she needed to tammi due to not having transportation to her appt this morning. Her name given back to the schedulers to call and resched her. documented in this encounterMer[facility]02-14-2024 Telephone encounter Note* Telephone Encounter - Danyell Ortiz RN - 04/23/2023 12:23 PM EST Called pt due toher not coming to her appt today and she stated she had left a message that she needed to tammi due to not having transportation to her appt this morning. Her name given back to the schedulers to call and resched her. [facility]-08-[facility] History of Present illness Narrative* Mario Conway DO - 04/17/2023 10:30 AM EST Reason for Appointment: Patient ID: Mia Ashley [...] nursing note reviewed. Exam conducted with a carpet or rug layer helper present. Vitals: Estimated body mass index is [...] of: Mario Conway DO documented in this encounterHedrick Medical [id number] Instructions* Patient Instructions* Gregorio Floyd MD - 08/27/2021 12:20 PM [...] also repeating your liver functions tests; if cameback high, please discuss them with your doctor. Please hold levothyroxine for now. documented in this [id number] History of Present illness Narrative* Gregorio Floyd MD - 08/27/2021 11:00 AM EDT Images from the original note were not [...] Dr. Monique (endocrinology); last seen about a yearago. Current diabetes medications: -Metformin 500 mg bid [...] no snacks, doesn't think she eats a lotof carbs,she mows her lawn daily. Glucose checks: [...] hx of pancreatitis, GB/biliary disease, recurrent UTI/fungal vulvov aginitis, postural hypotension, PVD, or osteoporosis. Vaccines: didn't receive the flu vaccine for this season, COVID vaccine , or pneumococcal vaccine. She endorses palpitations, hair loss and inability to lose weight for about 1- 1.5 year. Chart review shows normal TSH and [...] no tremors, DTRs normal, sensation intact to a10 gram monofilament below the ankles Skin: warm [...] ALKPHOS, BILITOT No results found for: TSH, S1JYCQG, THYROIDAB No results found for: PTH, CALCIUM, JACQUES, PHOS Lab Results Component Value Date HGBA1C 7.7 (A) 08/27/2021 No results found for: LDLCALC, CHOL, HDL, TRIG, CHOLHDL No results found for: MICALBCREAT, [id number] No results found for: CPEPTIDE Assessment and [...] acanthosis nigricans indicate T2DM, but will get GLE08-Ga and c-peptide/glucose given the young age of [...] Due for foot exam no 08/2021; to extension course counselor on foot care next visit CV [...] Gregorio Floyd MD Endocrinology documented in this [id number] Hospital Discharge instructions Patient Education 08/25/2021 02:09:26 [...] before the first one has healed, can bedangerous. Ask your health care provider when it is safe for you to return to your regular activities, including work or school. Ask your health care provider for a jaux-pa-tjlk plan for gradually returning to activities. Ask [...] your friends, family, a trusted colleague, and vegetable ii farmworker about your injury, symptoms, and restrictions. Have them watch for any new or worsening problems. General instructions Take mftd-utl-ioeylfw and prescription medicines only as told by [...] 02/24/2006 Document Revised: 03/24/2019 Document Reviewed: 03/19/2019 [employer]anKit Patient Education 2020 In[employer]. 08/25/2021 02:09:26 Cervical Sprain Cervical Sprain A [...] not have a cervical collar, ask your healthcare provider if it is safe to drive [...] provider or physical therapist. General instructions Take kitv-khi-ivzbokw and prescription medicines only as told by [...] to your workstation to help you use goodposture. Exercise regularly as directed by your health [...] 12/22/2007 Document Revised: 06/16/2019 Document Reviewed: 10/23/2016 [employer]anKit Patient Education 2020 Inspir[employer]. Follow Up Care 08/24/2021 22:42:21 With:Champ Bell Address: [address] [place], [place] [id number] Business (1) When:Within 3 Day(s) [facility]06-17-2022 Evaluation + Plan noteExtracted from: Title:ED Note Author:Tyler Summers DO Date [...] w/o Contrast CT Spine Cervical w/o Contrast [facility]* Diagnosis Thyroid disorder- Primary Unspecified disorder of thyroid Hair loss Unspecified alopecia [facility] Diagnosis Type 2 diabetes mellitus with hyperglycemia, unspecified whether snf insulin use (HCC)- Primary Thyroid disorder Unspecified disorder of thyroid Hair loss Unspecified alopecia [facility]* Diagnosis Bleeding in early Unspecified hemorrhage in early , unspecified as to episode of care Follow-up exam Unspecified follow-up examination documented [facility]* Diagnosis Type 2 diabetes mellitus in , second trimester- Primary Insulin pump in place Insulin pump status HTN in , chronic [facility] Diagnosis Type 2 diabetes mellitus in , second trimester- Primary Pre-existing type 2 diabetes mellitus during in first trimester [facility] Diagnosis Type 2 diabetes mellitus in , second trimester- Primary [facility]* Diagnosis Type 2 diabetes mellitus in , second trimester- Primary [facility]* Diagnosis Type 2 diabetes mellitus in , second trimester- Primary [facility]* Diagnosis Type 2 diabetes mellitus in , second trimester- Primary [facility] Narrative No data available for this section [facility] CenterInstructionsNot on filedocumented in this encounter [facility] SystemInstructionsNot on filedocumented in this encounter [facility]InstructionsNot on filedocumented in this encounter [facility]ructionsNot on filedocumented in this encounter [facility] SystemInstructionsNot on filedocumented in this encounter [facility] SystemInstructionsNot on filedocumented in this encounter [facility] SystemProgress note No data available for this section [facility]Rep[facility] (narrative)* Consultation (Routine) - Pending Review Specialty Diagnoses / Procedures Referred By Contac t Referred To Contact Maternal and Medicine Diagnoses Type 2 diabetes mellitus in , second trimester Insulin pump in place Opal Pinto APRN-TELEGRAPH LINEMAN [address] [place] [address] Leana Burr [facility] [address], [address] [address] Referral ID Status Reason Start Date Expiration Date Visits Requested Visits Authorized [id number] Pending Review Specialty Services Required 05/07/2023 05/06/2024 1 1 [facility] (n[facility]ative)* Consultation (Routine) - Pending Review Specialty Diagnoses / Procedures Referred By Contmichelle t Referred To Contact Endocrinology Diagnoses Type 2 diabetes mellitus in , second trimester Mary Guidry APRN-JHONATAN [address], [address] [place] [address] Leana Burr MD [facility] [place], [facility] [place] [address] [place] [address] Referral ID Status Reason Start Date Expiration Date Visits Requested Visits Authorized [id number] Pending Review Specialty Services Required 05/20/2023 05/19/2024 1 [facility]* Consultation (Routine) - Pending Review Specialty Diagnoses / Procedures Referred By Contac t Referred To Contact Endocrinology Diagnoses Type 2 diabetes mellitus in , second trimester Mary Guidry, [employer]TER-CNM [address], [address] [place] [address] Leana Burr MD [address] [facility], [address] [address] Referral ID Status Reason Start Date Expiration Date Visits Requested Visits Authorized [id number] Pending Review Specialty Services Required 05/20/2023 05/19/2024 1 1 [facility] Summary Purpose Family History No Family History Records FoundNo Family History Records FoundNo Family History Records FoundNo Family History Records FoundNo Family History Records FoundNo Family History Records FoundNo Family History Records Found No data available for this section Advance Directives Documents on File Type Date Recorded 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 Advance Directives and Livin g Will 05/02/2021 12:00 AM Reason for Referral Specialty Diagnoses / Procedures Referred By Contac t Referred To Contact Endocrinology Diagnoses Thyroid disorder Hair loss Champ Bell MD [address] [facility] [place] [address] [place] [address] Gregorio Floyd MD [address] [place] [id number] Referral ID Status Reason Start Date Expiration Date Visits Requested Visits Authorized [id number] Authorized Specialty Services Required/Pat ient's Best Interest 05/04/2021 05/04/2022 1 1 Specialty Diagnoses / Procedures Referred By Contac t Referred To Contact Maternal and Medicine Diagnoses Type 2 diabetes mellitus in , second trimester Procedures [facility] with or without consult Opal Pinto, [employer]EM[employer] [address] [place] [address] [facility]aternal [facility] [address] [place] [address] Referral ID Status Reason Start Date Expiration Date V isits Requested Visits Authorized [id number] Pending Review 05/08/2023 05/07/2024 1 1 Additional Source Comments INFORMATION SOURCE (unrecogn ized section and content) DATE CREATED AUTHOR 02/06/2021 [facility] DATE CREATED AUTHOR AUTHOR'S ORGANIZ ATION [facility]2021 [facility] DATE CREATED AUTHOR AUTHOR'S ORGANIZ ATION 08/30/2021 [facility] DATE CREATED AUTHOR AUTHOR'S ORGANIZ ATION 06/02/2022 [facility] DATE CREATED AUTHOR AUTHOR'S ORGANIZ ATION 08/12/2023 [facility] EPIC DATE CREATED AUTHOR AUTHOR'S ORGANIZ ATION 08/14/2023 [facility] DATE CREATED AUTHOR AUTHOR'S ORGANIZ ATION 08/21/2023 [facility] Care Teams (unrecognized sec tion and content) Personnel Name: Champ Bell MD Address: Address: [address] [place] [address] Payroll Associate Relationship Specialty Start Date End Date Champ Bell MD [address] [place] [phone] PCP - General Family Medicine 05/02/21 Payroll Associate Relationship Specialty Start Date End Date Champ Bell MD [address] [place] [address] PCP - General Family Medicine 05/02/21 Payroll Associate Relationship Specialty Start Date End Date Champ Bell MD [address] [place] [phone] PCP - General 03/13/23 Reason for Visit (unrecogniz ed section and content) Reason Comments Thyroid Problem Specialty Diagnoses / Procedures Referred By Juan Antonio t Referred To Contact Endocrinology Diagnoses Thyroid disorder Hair loss Champ Bell MD [address] [place] [address] Gregorio Floyd MD [facility] [place] [address] Referral ID Status Reason Start Date Expiration Date V isits Requested Visits Authorized [id number] Closed Specialty Services Required/Deanna ent's Best Interest 05/04/2021 05/04/2022 1 1 Reason Comments ER Follow-up Reason Comments [id number] Reason Comments Diabetes Specialty Diagnoses / Procedures Referred By Contac t Referred To Contact Maternal and Medicine Diagnoses Pre-existing type 2 diabetes mellitus during in first trimester Mario Conway R, DO [address] , [place] [address] [facility] [address] [facility] [place] [address] Referral ID Status Reason Start Date Expiration Date Visits Requested Visits Authorized [id number] Pending Review Specialty Services Required 04/15/2023 04/14/2024 [...] BE BASED ON THE PRIMARY CLINICAL RECORDS. [employer] provides no warranty or guarantee of the accuracy or completeness of information in this document.
[2023-08-22 11:37] VITALS: BP 133/76; PULSE 120
== END 2023-08-22 12:22 | disposition home or self-care (01) ==
LOC: FBCO 06:59 → FBC 11:07
PROVIDERS: PCP Family Medicine; Visit Provider Obstetrics & Gynecology
DX: O24.313 Unspecified pre-existing diabetes mellitus in pregnancy, third trimester (principal)
CPT/HCPCS: 59025

== ENCOUNTER 2023-08-27 07:15 | Outpatient (OUT) | payer OTHER, SELFPAY ==
--- OUTSIDE RECORDS SUMMARY | 2023-08-27 07:18 | XMS_ITS | CCD ---
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 9:39 PM) Normal [facility] UA Auto SS eGFRon 08-21-2023 eGFR 137 mL/min/1.73 m2 Normal >=59 [facility] Comment on above: Order Comment: Order added by Discern Expert. Performed By: #### 1 [id number] #### [facility] [address] [place] [address] C peptide [Mass/Vol]on 06-22 C PEPTIDE 5.70 ng/mL High 0.81-3.85 [facility] Comment on above: Result Comment: NOTE Test Performed By: [facility] [employer] [address] [place] [address] Corporate Licensed Broker: Vaibhav Julian III, M.D. CLIA #[id number] Performed By: #### 2 345-7 #### [facility] ([id number]) [address] [place] [address], [facility] [address] [place] [address] GLUCOSEon 06-23-2023 Glucose [Mass/Vol] 168 mg/dL High 65-99 [facility] Comment on above: Performed By: #### 2 345-7 #### [facility] ([id number]) [address] [place] [address], [address] [place] [address] Glutamate decarboxylase 65 A b IA Qn (S)on 06-23-2023 LATOYA ANTIBODY <5.0 Normal 0.0-5.0 [facility] Comment on above: Result Comment: NOTE INTERPRETIVE INFORMATION: Glutamic Acid Decarboxylase Antibody A value greater than 5.0 IU/mL is considered positive for Glutamic Acid Decarboxylase Antibody (LATOYA Ab). This assay is intended for the semi-quantitative determination of the LATOYA Ab in human serum. Results should be interpreted within the context of clinical symptoms. Performed By: [facility] [address] [place] [id number] Corporate Licensed Broker: Mark Fitzpatrick MD, PhD CLIA Number: [id number] Performed By: #### 2 345-7 #### [facility] ([id number]) [address] [place] [address], [address] [place] [address] Reference Lab Test IDon 06-08 Insulinoma Ab 2 See Below Normal [facility] Comment on above: Result Comment: NOTE TEST [...] Clinical correlation is required. Test Performed By: [facility] [address] [place] [address] Corporate Licensed Broker: Vaibhav Julian III, M.D. CLIA #[id number] Performed By: #### 2 345-7 #### [facility] ([id number]) [address] [place] [address], [address] [place] [address] CBC without diffon Hematocrit (Bld) [Volume fraction] 40.1 % [facility] Hemoglobin (Bld) [Mass/Vol] 12.8 g/dL [facility] Platelets (Bld) [#/Vol] 305 10*3/uL [facility] Rbc Mcv (Fl) By Automated Count 82.2 [facility] Free Cell DNAon 2023 Free Cell Dna no call [facility] HIV 1&2 AB/AG Screen (P24 AG )on 04-01-2023 HIV 1&2 AB/AG Negative [facility] Hemoglobin A1con 04-01-2023 HbA1c (Bld) [Mass fraction] 7.9 % Abnormal 4.0 - 6.0 % [facility] Interpretation and review of laboratory results Abnormal [facility] Hepatitis B surface antigeno n 04-01-2023 Hepatitis B Surface Antigen Negative [facility] No Panel Informationon 04-01 [facility] Rubella IGG immune statuson 04-01-2023 Rubella immune IgG immune [facility] Syphilis Total(Unknown Syphi lis Status)on 04-01-2023 Syphilis Non-Reactive [facility] TSHon 04-01-2023 Thyroid Stimulating (3Rd Generation) Hormone/ Tsh 1.051 [facility] TSH Qn 1.05 m[IU]/L [facility] Type and screenon 04-01-2023 Abo/Rh(D) Positive [facility] Urine Cultureon 04-01-2023 Bacteria identified Cx Nom (U) no growth [facility] Covid-19 PCR (CVDTB)on 05-09 SARS-CoV-2 (COVID-19) RNA EZEKIEL+probe Ql (Unsp spec) Not detected Normal NOT DETECTED [facility] Comment on above: Result Comment: This test is not yet approved or cleared by the [place] FDA. When there are no FDA-approved or cleared tests available, and other criteria are met, FDA can make tests available under an emergency access mechanism called an Emergency Use Authorization (EUA). The EUA for this test is supported by the [place] of Health and Human Service's (HHS's) declaration [...] SARS-CoV-2. Performed By: #### C VDTBH #### [facility] [address] [place] [address] [address] Rosemary Ames GROUP A STREP CULTUREon 05-09 S. pyogenes Ag Ql (Unsp spec) Culture Observations: NEGATIVE FOR GROUP A STREPTOCOCCUS. Normal [facility] Comment on above: Performed By: #### T 7, LIPID, TSH, CMADM, BNP, CMP #### [facility] [address] [place], [place] [address] Dr. Rosemary Ames INFLUENZA A AND B AGon 05-31 INFLUANEGH SEE BELOW Normal [facility] Comment on above: Result Comment: Nega tive for Flu A protein angiten. Infection due to Flu A cannot be ruled out. Flu A angiten in the sample may be below the detection limit of the test. Performed By: #### I NFLUAB #### [facility] [address] [place] [address] Dr. Rosemary Am[facility] SEE BELOW Normal [facility] Comment on above: Result Comment: Nega tive for Flu B protein antigen. Infection due to Flu B cannot be ruled out. Flu B antigen in the sample may be below the detection limit of the test. Performed By: #### I NFLUAB #### [facility] [address] [place] [address] Dr. Rosemary Ames INFLUENZA A AG Negative Normal NEGATIVE SEE COMMENT [facility] Comment on above: Performed By: #### I NFLUAB #### [facility] [address] [place] [address] Dr. Rosemary Ames INFLUENZA B AG Negative Normal NEGATIVE SEE COMMENT [facility] Comment on above: Performed By: #### I NFLUAB #### [facility] [address] [place] [address] Dr. Rosemary Ames STREPT SCREENon 05-31-2022 STREP SCREEN A Negative Normal NEGATIVE [facility] Comment on above: Performed By: #### E RUR #### [facility] [address] [place] [address] Dr. Rosemary Ames SYMPTOMATIC COVID-19 ANTIGEN on 05-31-2022 EUA Statement SEE BELOW Normal [facility] Comment on above: Result Comment: [...] 7, LIPID, TSH, CMADM, BNP, CMP #### [facility] [address] [place], [place] [address] Dr. Rosemary Ames SARS-CoV-2 (COVID-19) RNA EZEKIEL+probe Ql (Unsp spec) Negative Normal NEGATIVE [facility] Comment on above: Performed By: #### T 7, LIPID, TSH, CMADM, BNP, CMP #### [facility] [address] [place], [place] [address] Dr. Rosemary Ames ECHOCARDIO M/2D COMPLETEon 0 04-10-2022 ECHOCARDIO M/2D COMPLETE Patient: TESS ASLHEY Exam Date: 04/10/2022 : 1995 Gender:F Ordering : DR CHAMP LAUREANO . Admission #: [id number] Family : Order #: [id number] CLICK HERE TO VIEW EXAM ECHOCARDIOGRAM REPORT [...] M.D. on 04/10/2022 at 17:40 Normal [facility] CBC AUTO DIFFon 03-13-2022 BASO # 0.0 103/ul Normal 0.0-0.1 [facility] Comment on above: Performed By: #### A 1C #### [facility] [address] [place] [address] Dr. Rosemary Ames Basophils/100 WBC (Bld) 0.3 % Normal 0.2-2.0 [facility] Comment on above: Performed By: #### A 1C #### [facility] [address] [place] [address] Dr. Rosemary Ames EO # 0.0 103/ul Normal 0.0-0.7 [facility] Comment on above: Performed By: #### A 1C #### [facility] [address] [place] [address] Dr. Rosemary Ames Eosinophils/100 WBC (Bld) 0.5 % Critically low 0.9-7.0 [facility] Comment on above: Performed By: #### A 1C #### [facility] [address] [place] [address] Dr. Rosemary Ames Erythrocyte distribution width (RBC) [Ratio] 14.5 % Normal 11.0-15.0 [facility] Comment on above: Performed By: #### A 1C #### [facility] [address] [place] [address] Dr. Rosemary Ames Hematocrit (Bld) [Volume fraction] 39.7 % Normal 36.0-48.0 [facility] Comment on above: Performed By: #### A 1C #### [facility] [address] [place] [address] Dr. Rosemary Ames Hemoglobin (Bld) [Mass/Vol] 12.9 g/dL Normal 12.0-16.0 [facility] Comment on above: Performed By: #### A 1C #### [facility] [address] [place] [address] Dr. Rosemary Ames IG # 0.03 10e3/ul Normal 0.00-0.03 [facility] Comment on above: Performed By: #### A 1C #### [facility] [address] [place] [address] Dr. Rosemary Ames IG % 0.4 % Normal 0.0-0.5 [facility] Comment on above: Performed By: #### A 1C #### [facility] [address] [place] [address] Dr. Rosemary Ames LYMPH # 0.5 103/ul Critically low 1.2-3.8 [facility] Comment on above: Performed By: #### A 1C #### [facility] [address] [place] [address] Dr. Rosemary Ames Lymphocytes/100 WBC (Bld) 6.6 % Critically low 20.5-60.0 [facility] Comment on above: Performed By: #### A 1C #### [facility] [address] [place] [address] Dr. Rosemary Ames MANUAL DIFF REQ NO Normal [facility] Comment on above: Performed By: #### A 1C #### [facility] [address] [place] [address] Dr. Rosemary Ames MCH (RBC) [Entitic mass] 25.1 pg Critically low 26.7-34.0 [facility] Comment on above: Performed By: #### A 1C #### [facility] [address] [place] [address] Dr. Rosemary Ames MCHC (RBC) [Mass/Vol] 32.5 g/dL Normal 29.9-35.2 [facility] Comment on above: Performed By: #### A 1C #### [facility] [address] [place] [address] Dr. Rosemary Ames MCV (RBC) [Entitic vol] 77.2 fL Critically low 81.0-99.0 [facility] Comment on above: Performed By: #### A 1C #### [facility] [address] [place] [address] Dr. Rosemary Ames MONO # 0.7 103/ul Normal 0.3-0.8 [facility] Comment on above: Performed By: #### A 1C #### [facility] [address] [place] [address] Dr. Rosemary Ames Monocytes/100 WBC (Bld) 9.3 % Normal 1.7-12.0 [facility] Comment on above: Performed By: #### A 1C #### [facility] [address] [place] [address] Dr. Rosemary Ames NEUT # 6.2 103/ul Normal 1.4-6.5 [facility] Comment on above: Performed By: #### A 1C #### [facility] [address] [place] [address] Dr. Rosemary Ames Neutrophils/100 WBC (Bld) 82.9 % Critically high 43.0-75.0 [facility] Comment on above: Performed By: #### A 1C #### [facility] [address] [place] [address] Dr. Rosemary Ames Platelet mean volume (Bld) [Entitic vol] 9.8 fL Normal 9.5-13.5 [facility] Comment on above: Performed By: #### A 1C #### [facility] [address] [place] [address] Dr. Rosemary Ames PLT 246 103/ul Normal 150-450 [facility] Comment on above: Performed By: #### A 1C #### [facility] [address] [place] [address] Dr. Rosemary Ames RBC 5.14 106/ul Normal 4.20-5.40 [facility] Comment on above: Performed By: #### A 1C #### [facility] [address] [place] [address] Dr. Rosemary Ames WBC 7.4 103/ul Normal 4.0-11.0 [facility] Comment on above: Performed By: #### A 1C #### [facility] [address] [place] [address] Dr. Rosemary Ames Covid-19 PCR ([facility])on SARS-CoV-2 (COVID-19) RNA EZEKIEL+probe Ql (Unsp spec) Not detected Normal NOT DETECTED [facility] Comment on above: Result Comment: When [...] for this test is supported by the [place] of Health and Human Service's declaration that [...] used). Performed By: #### A 1C #### [facility] [address] [place] [address] Dr. Rosemary Ames D-DIMERon 03-13-2022 D-DIMER 0.26 mg/L FEU Normal <=0.59 [facility] Comment on above: Performed By: #### T 7, LIPID, TSH, CMADM, BNP, CMP #### [facility] [address] [place] [address] Dr. Roseamry Ames D-DIMER COMMENTS SEE BELOW Normal [facility] Comment on above: Result Comment: Incr [...] 7, LIPID, TSH, CMADM, BNP, CMP #### [facility] [address] [place] [address] Dr. Rosemary Ames ER URINE PROFILEon 3 Bilirubin Ql (U) Negative Normal NEGATIVE [facility] Comment on above: Performed By: #### E RUR #### [facility] [address] [place] [address] Dr. Rosemary Ames Clarity (U) CLEAR Normal CLEAR [facility] Comment on above: Performed By: #### E RUR #### [facility] [address] [place] [address] Dr. Rosemary Ames Color (U) LT. YELLOW Normal YELLOW [facility] Comment on above: Performed By: #### E RUR #### [facility] [address] [place] [address] Dr. Rosemary MARTIN A micrscopic examination will be performed if indicated. Normal [facility] Comment on above: Performed By: #### E RUR #### [facility] [address] [place] [address] Dr. Rosemary Ames Glucose Ql (U) Negative Normal NEGATIVE [facility] Comment on above: Performed By: #### E RUR #### [facility] [address] [place] [address] Dr. Rosemary Ames Hemoglobin Ql (U) Negative Normal NEGATIVE [facility] Comment on above: Performed By: #### E RUR #### [facility] [address] [place] [address] Dr. Rosemary Ames Ketones Ql (U) Negative Normal NEGATIVE [facility] Comment on above: Performed By: #### E RUR #### [facility] [address] [place] [address] Dr. Rosemary Ames LEUKOCYTES Negative Normal NEGATIVE [facility] Comment on above: Performed By: #### E RUR #### [facility] [address] [place] [address] Dr. Rosemary Ames Nitrite Ql (U) Negative Normal NEGATIVE [facility] Comment on above: Performed By: #### E RUR #### [facility] [address] [place] [address] Dr. Rosemary Ames pH (U) 6.0 [pH] Normal 5-9 [facility] Comment on above: Performed By: #### E RUR #### [facility] [address] [place] [address] Dr. Rosemary Ames SPEC GRAVITY 1.015 Normal 1.005-<=1.02 5 [facility] Comment on above: Performed By: #### E RUR #### [facility] [address] [place] [address] Dr. Rosemary Ames UA PROTEIN Negative Normal NEGATIVE/ TRACE [facility] Comment on above: Performed By: #### E RUR #### [facility] [address] [place] [address] Dr. Rosemary Ames UR MICRO IND NOT INDICATED Normal [facility] Comment on above: Performed By: #### E RUR #### [facility] [address] [place] [address] Dr. Rosemary Ames Urobilinogen Qn (U) 0.2 {Vincent'U}/dL Normal 0.2 - 1. 0 [facility] Comment on above: Performed By: #### E RUR #### [facility] [address] [place] [address] Dr. Rosemary Aems INFLUENZA A AND B AGon 03-13 INFLUANEGH SEE BELOW Normal [facility] Comment on above: Result Comment: Nega tive for Flu A protein angiten. Infection due to Flu A cannot be ruled out. Flu A angiten in the sample may be below the detection limit of the test. Performed By: #### E RUR #### [facility] [address] [place] [address] Dr. Rosemary Ames INFLUBNEGH SEE BELOW Normal [facility] Comment on above: Result Comment: Nega tive for Flu B protein antigen. Infection due to Flu B cannot be ruled out. Flu B antigen in the sample may be below the detection limit of the test. Performed By: #### E RUR #### [facility] [address] [place] [address] Dr. Rosemary Ames INFLUENZA A AG Negative Normal NEGATIVE SEE COMMENT [facility] Comment on above: Performed By: #### E RUR #### [facility] [address] [place] [address] Dr. Rosemary Ames INFLUENZA B AG Negative Normal NEGATIVE SEE COMMENT [facility] Comment on above: Performed By: #### E RUR #### [facility] [address] [place] [address] Dr. Rosemary Ames LACTATE/LACTIC ACIDon 2022 Lactate [Moles/Vol] 2.0 mmol/L Critically high 0.4-1.9 [facility] Comment on above: Performed By: #### A 1C #### [facility] [address] [place] [address] Dr. Rosemary Ames LIPASEon 03-13-2022 Lipase [Catalytic activity/Vol] 79.0 U/L Normal 73.0-393.0 [facility] Comment on above: Performed By: #### A 1C #### [facility] [address] [place] [address] Dr. Rosemary Ames PREG HCG QUALon 03-13-2022 , QUAL Negative Normal NEGATIVE [facility] Comment on above: Performed By: #### A 1C #### [facility] [address] [place] [address] Dr. Rosemary Ames PROF 14(COMP METB)on 023 Albumin [Mass/Vol] 4.1 g/dL Normal 3.4-5.0 [facility] Comment on above: Performed By: #### A 1C #### [facility] [address] [place] [address] Dr. Rosemary Ames Albumin/Globulin [Mass ratio] 1.1 {ratio} Normal [facility] Comment on above: Performed By: #### A 1C #### [facility] [address] [place] [address] Dr. Rosemary Ames ALP [Catalytic activity/Vol] 77 U/L Normal 46-116 [facility] Comment on above: Performed By: #### A 1C #### [facility] [address] [place] [address] Dr. Rosemary Ames ALT [Catalytic activity/Vol] 149 U/L Critically high 14-59 [facility] Comment on above: Performed By: #### A 1C #### [facility] [address] [place] [address] Dr. Rosemary Ames Anion gap [Moles/Vol] 16.0 mmol/L Normal [facility] Comment on above: Performed By: #### A 1C #### [facility] [address] [place] [address] Dr. Rosemary Ames AST [Catalytic activity/Vol] 82 U/L Critically high 15-37 [facility] Comment on above: Performed By: #### A 1C #### [facility] [address] [place] [address] [address] Rosemary Ames Bilirubin [Mass/Vol] 1.0 mg/dL Normal 0.2-1.0 [facility] Comment on above: Performed By: #### A 1C #### [facility] [address] [place] [place] [address] [address] Rosemary Ames Calcium [Mass/Vol] 9.1 mg/dL Normal 8.5-10.1 [facility] Comment on above: Performed By: #### A 1C #### [facility] [address] [place] [place] [address] [address] Rosemary Ames Chloride [Moles/Vol] 96 mmol/L Critically low 98-107 [facility] Comment on above: Performed By: #### A 1C #### [facility] [address] [place] [address] Dr. Rosemary Ames CO2 [Moles/Vol] 25.7 mmol/L Normal 21.0-32.0 [facility] Comment on above: Performed By: #### A 1C #### [facility] [address] [place] [address] Dr. Rosemary Ames Creatinine [Mass/Vol] 0.78 mg/dL Normal 0.55-1.02 [facility] Comment on above: Performed By: #### A 1C #### [facility] [address] [place] [address] Dr. Rosemary Ames EGFR-AF BURMESE >60 Normal >=60 [facility] Comment on above: Performed By: #### A 1C #### [facility] [address] [place] [address] Dr. Rosemary Ames EGFR-NON AF BURMESE >60 Normal >=60 [facility] Comment on above: Performed By: #### A 1C #### [facility] [address] [place] [address] Dr. Rosemary Ames Globulin (S) [Mass/Vol] 3.9 g/dL Normal [facility] Comment on above: Performed By: #### A 1C #### [facility] [address] [place] [address] Dr. Rosemary Ames Glucose [Mass/Vol] 190 mg/dL Critically high 74-106 [facility] Comment on above: Performed By: #### A 1C #### [facility] [address] [place] [address] [address] Rosemary Ames Potassium [Moles/Vol] 3.7 mmol/L Normal 3.5-5.1 [facility] [facility] Comment on above: Performed By: #### A 1C #### [facility] [address] [address] [address] Rosemary Ames Protein [Mass/Vol] 8.0 g/dL Normal 6.4-8.2 [facility] Comment on above: Performed By: #### A 1C #### [facility] [address] [place] [address] Dr. Rosemary Ames Sodium [Moles/Vol] 134 mmol/L Critically low 136-145 [facility] Comment on above: Performed By: #### A 1C #### [facility] [address] [place] [address] Dr. Rosemary Ames Urea nitrogen [Mass/Vol] 9.0 mg/dL Normal 7.0-18.0 [facility] Comment on above: Performed By: #### A 1C #### [facility] [address] [place] [address] Dr. Rosemary Ames Urea nitrogen/Creatinine [Mass ratio] 11.5 mg/mg Normal [facility] Comment on above: Performed By: #### A 1C #### [facility] [address] [place] [address] Dr. Rosemary Ames TROPONIN, HIGH SENSITIVITYon 03-13-2022 HSTROP <4.0 Normal 4.0-51.3 [facility] Comment on above: Result Comment: CUT- OFF POINTS HAVE BEEN ESTABLISHED BASED ON THE FOURTH UNIVERSAL DEFINITIONS OF MYOCARDIAL INFARCTION. THE UPPER REFERENCE LIMIT (URL) OF TROPONIN, DEFINED THE 99TH PERCENTILE OF cTnI DISTRIBUTION IN A REFERENCE POPULATION, HAS BEEN CONFIRMED THE DECISION THRESHOLD FOR AL DIAGNOSIS. Previously reported as: 3.9 On 03/13/2022 18:24 By DM9 Performed By: #### A 1C #### [facility] [address] [place] [address] Dr. Rosemary Ames TSHon 03-13-2022 TSH 0.440 uIU/mL Normal 0.358-3.[address] [facility] Comment on above: Performed By: #### A 1C #### [facility] [address] [place] [address] Dr. Rosemary Ames XR CHEST 1 Von [...] TUAN LEWIS Date: 2022-03-13 18:59 Normal [facility] INSULINon 12-11-2021 Insulin 40.7 uIU/mL Critically high 2.6-24.9 [facility] Comment on above: Performed By: #### A 1C #### [facility] [address] [place] [address] Dr. Rosemary Ames BNPon 12-10-2021 NT PRO BNP <11.1 Normal <=450.0 [facility] Comment on above: Performed By: #### T 7, LIPID, TSH, CMADM, BNP, CMP #### [facility] [address] [place] [address] Dr. Rosemary Ames CARDIAC RY ADMITon 022 CK [Catalytic activity/Vol] 80 U/L Normal 26-192 [facility] Comment on above: Performed By: #### T 7, LIPID, TSH, CMADM, BNP, CMP #### [facility] [address] [place] [address] Dr. Rosemary Ames CK.MB [Mass/Vol] 0.56 ng/mL Normal <=3.60 [facility] Comment on above: Performed By: #### T 7, LIPID, TSH, CMADM, BNP, CMP #### [facility] [address] [place] [address] Dr. Rosemary Ames HSTROP 5.3 pg/mL Normal 4.0-51.3 [facility] Comment on above: Result Comment: CUT- OFF POINTS HAVE BEEN ESTABLISHED BASED ON THE FOURTH UNIVERSAL DEFINITIONS OF MYOCARDIAL INFARCTION. THE UPPER REFERENCE LIMIT (URL) OF TROPONIN, DEFINED THE 99TH PERCENTILE OF cTnI DISTRIBUTION IN A REFERENCE POPULATION, HAS BEEN CONFIRMED THE DECISION THRESHOLD FOR AL DIAGNOSIS. Performed By: #### T 7, LIPID, TSH, CMADM, BNP, CMP #### [facility] [address] [place] [address] Dr. Rosemary Ames RADHA 26 ng/mL Normal 9-82 [facility] Comment on above: Performed By: #### T 7, LIPID, TSH, CMADM, BNP, CMP #### [facility] [address] [place] [address] Dr. Rosemary Aems CBC AUTO DIFFon 12-10-2021 BASO # 0.0 103/ul Normal 0.0-0.1 [facility] Comment on above: Performed By: #### E RUR #### [facility] [address] [place] [address] Dr. Rosemary Ames Basophils/100 WBC (Bld) 0.4 % Normal 0.2-2.0 [facility] Comment on above: Performed By: #### E RUR #### [facility] [address] [place] [address] Dr. Rosemary Ames EO # 0.1 103/ul Normal 0.0-0.7 [facility] Comment on above: Performed By: #### E RUR #### [facility] [address] [place] [address] Dr. Rosemary Ames Eosinophils/100 WBC (Bld) 1.0 % Normal 0.9-7.0 [facility] Comment on above: Performed By: #### E RUR #### [facility] [address] [place] [address] Dr. Rosemary Ames Erythrocyte distribution width (RBC) [Ratio] 13.7 % Normal 11.0-15.0 [facility] Comment on above: Performed By: #### E RUR #### [facility] [address] [place] [address] Dr. Rosemary Ames Hematocrit (Bld) [Volume fraction] 40.9 % Normal 36.0-48.0 [facility] Comment on above: Performed By: #### E RUR #### [facility] [address] [place] [address] Dr. Rosemary Ames Hemoglobin (Bld) [Mass/Vol] 13.0 g/dL Normal 12.0-16.0 [facility] Comment on above: Performed By: #### E RUR #### [facility] [address] [place] [address] Dr. Rosemary Ames IG # 0.03 10e3/ul Normal 0.00-0.03 [facility] Comment on above: Performed By: #### E RUR #### [facility] [address] [place] [address] Dr. Rosemary Ames IG % 0.4 % Normal 0.0-0.5 [facility] Comment on above: Performed By: #### E RUR #### [facility] [address] [place] [address] Dr. Rosemary Ames LYMPH # 2.4 103/ul Normal 1.2-3.8 [facility] Comment on above: Performed By: #### E RUR #### [facility] [address] [place] [address] Dr. Rosemary Ames Lymphocytes/100 WBC (Bld) 30.3 % Normal 20.5-60.0 [facility] Comment on above: Performed By: #### E RUR #### [facility] [address] [place] [address] Dr. Rosemary Ames MANUAL DIFF REQ NO Normal [facility] Comment on above: Performed By: #### E RUR #### [facility] [address] [place] [address] Dr. Rosemary Ames MCH (RBC) [Entitic mass] 25.8 pg Critically low 26.7-34.0 [facility] Comment on above: Performed By: #### E RUR #### [facility] [address] [address] [address] Rosemary Ames MCHC (RBC) [Mass/Vol] 31.8 g/dL Normal 29.9-35.2 [facility] Comment on above: Performed By: #### E RUR #### [facility] [address] [place] [address] Dr. Rosemary Ames MCV (RBC) [Entitic vol] 81.2 fL Normal 81.0-99.0 [facility] Comment on above: Performed By: #### E RUR #### [facility] [address] [place] [address] Dr. Rosemary Ames MONO # 0.5 103/ul Normal 0.3-0.8 [facility] Comment on above: Performed By: #### E RUR #### [facility] [address] [place] [address] Dr. Rosemary Ames Monocytes/100 WBC (Bld) 6.1 % Normal 1.7-12.0 [facility] Comment on above: Performed By: #### E RUR #### [facility] [address] [place] [address] Dr. Rosemary Ames NEUT # 5.0 103/ul Normal 1.4-6.5 [facility] Comment on above: Performed By: #### E RUR #### [facility] [address] [place] [address] Dr. Rosemary Ames Neutrophils/100 WBC (Bld) 61.8 % Normal 43.0-75.0 [facility] Comment on above: Performed By: #### E RUR #### [facility] [address] [place] [address] Dr. Rosemary Ames Platelet mean volume (Bld) [Entitic vol] 9.9 fL Normal 9.5-13.5 [facility] Comment on above: Performed By: #### E RUR #### [facility] [address] [place] [address] Dr. Rosemary Ames PLT 284 103/ul Normal 150-450 [facility] Comment on above: Performed By: #### E RUR #### [facility] [address] [address] [address] Rosemary Ames RBC 5.04 106/ul Normal 4.20-5.40 [facility] Comment on above: Performed By: #### E RUR #### [facility] [address] [place] [address] Dr. Rosemary Ames WBC 8.0 103/ul Normal 4.0-11.0 [facility] Comment on above: Performed By: #### E RUR #### [facility] [address] [place] [address] Dr. Rosemary Ames FREE THYROXINE INDEX T7on FTI 2.31 Normal 1.30-4.50 [facility] Comment on above: Performed By: #### T 7, LIPID, TSH, CMADM, BNP, CMP #### [facility] [address] [place] [address] Dr. Rosemary Ames T3U 30.0 % Normal 30.0-39.0 [facility] Comment on above: Performed By: #### T 7, LIPID, TSH, CMADM, BNP, CMP #### [facility] [address] [place] [address] Dr. Rosemary Ames T4 [Mass/Vol] 7.70 ug/dL Normal 4.80-13.[address] [facility] Comment on above: Performed By: #### T 7, LIPID, TSH, CMADM, BNP, CMP #### [facility] [address] [place] [address] Dr. Rosemary Ames GLYCOHEMOGLOBIN A1Con 2021 ADA RECOMMENDATION SEE BELOW Normal [facility] Comment on above: Result Comment: ADA RECOMMENDED LIMIT 4.0 - 6.0 ADA THERAPEUTIC TARGET < 7.0 ACTION SUGGESTED > 7.0 Performed By: #### A 1C #### [facility] [address] [place] [address] Dr. Rosemary Ames Glucose [Mass/Vol] 243 mg/dL Normal [facility] Comment on above: Performed By: #### A 1C #### [facility] [address] [place] [address] Dr. Rosemary Ames HbA1c (Bld) [Mass fraction] 10.1 % Critically high 4.5-6.2 [facility] Comment on above: Performed By: #### A 1C #### [facility] [address] [place] [address] Dr. Rosemary Ames IRONon 12-10-2021 Iron [Mass/Vol] 29.0 ug/dL Critically low 50.0-170.0 [facility] Comment on above: Performed By: #### A 1C #### [facility] [address] [place] [address] Dr. Rosemary Ames LIPID PROFILEon 12-10-2021 CHOL-HDL RATIO NORM SEE BELOW Normal [facility] Comment on above: Result Comment: 3.3 - 4.4 LOW RISK 4.4 - 7.1 AVERAGE RISK 7.1 - 11.0 MODERATE RISK >11.0 HIGH RISK Performed By: #### T 7, LIPID, TSH, CMADM, BNP, CMP #### [facility] [address] [place] [address] Dr. Rosemary Ames Cholesterol [Mass/Vol] 184 mg/dL Normal <=200 [facility] Comment on above: Performed By: #### T 7, LIPID, TSH, CMADM, BNP, CMP #### [facility] [address] [place] [address] Dr. Rosemary Ames Cholesterol in HDL [Mass/Vol] 44 mg/dL Normal 40-60 [facility] Comment on above: Performed By: #### T 7, LIPID, TSH, CMADM, BNP, CMP #### [facility] [address] [place] [address] Dr. Rosemary Ames Cholesterol in LDL [Mass/Vol] 94.6 mg/dL Normal [facility] Comment on above: Performed By: #### T 7, LIPID, TSH, CMADM, BNP, CMP #### [facility] [address] [place] [address] Dr. Rosemary Ames Cholesterol.total/Chol esterol in HDL [Mass ratio] 4.2 {ratio} Normal [facility] Comment on above: Performed By: #### T 7, LIPID, TSH, CMADM, BNP, CMP #### [facility] [address] [address] [address] Rosemary Ames HDL NORMAL > or = 60 mg/dl - LOW CARDIOVASCULAR RISK <40 mg/dl - HIGH CARDIOVASCULAR RISK Normal [facility] Comment on above: Performed By: #### T 7, LIPID, TSH, CMADM, BNP, CMP #### [facility] [address] [address] [address] Rosemary Ames LDL CALC NORMAL SEE BELOW Normal [facility] Comment on above: Result Comment: <100 mg/dl OPTIMAL 100 - 129 mg/dl NEAR OR ABOVE OPTIMAL 130 - 159 mg/dl BORDERLINE HIGH 160 - 189 mg/dl HIGH >190 mg/dl VERY HIGH Performed By: #### T 7, LIPID, TSH, CMADM, BNP, CMP #### [facility] [address] [address] [address] Rosemary Ames Triglyceride [Mass/Vol] 227 mg/dL Critically high <=150 [facility] Comment on above: Performed By: #### T 7, LIPID, TSH, CMADM, BNP, CMP #### [facility] [address] [address] [address] Rosemary Ames VLDL CALC 45.4 mg/dL Normal [facility] Comment on above: Performed By: #### T 7, LIPID, TSH, CMADM, BNP, CMP #### [facility] [address] [address] [address] Rosemary Ames PROF 14(COMP METB)on 022 Albumin [Mass/Vol] 4.1 g/dL Normal 3.4-5.0 [facility] Comment on above: Performed By: #### T 7, LIPID, TSH, CMADM, BNP, CMP #### [facility] [address] [address] [address] Rosemary Ames Albumin/Globulin [Mass ratio] 1.1 {ratio} Normal [facility] Comment on above: Performed By: #### T 7, LIPID, TSH, CMADM, BNP, CMP #### [facility] [address] [address] [address] Rosemary Ames ALP [Catalytic activity/Vol] 83 U/L Normal 46-116 [facility] Comment on above: Performed By: #### T 7, LIPID, TSH, CMADM, BNP, CMP #### [facility] [address] [address] [address] Rosemary Ames ALT [Catalytic activity/Vol] 166 U/L Critically high 14-59 [facility] Comment on above: Performed By: #### T 7, LIPID, TSH, CMADM, BNP, CMP #### [facility] [address] [address] [address] Rosemary Ames Anion gap [Moles/Vol] 13.9 mmol/L Normal [facility] Comment on above: Performed By: #### T 7, LIPID, TSH, CMADM, BNP, CMP #### [facility] [address] [place] [address] Dr. Rosemary Ames AST [Catalytic activity/Vol] 97 U/L Critically high 15-37 [facility] Comment on above: Performed By: #### T 7, LIPID, TSH, CMADM, BNP, CMP #### [facility] [address] [address] [address] Rosemary Ames Bilirubin [Mass/Vol] 0.7 mg/dL Normal 0.2-1.0 [facility] Comment on above: Performed By: #### T 7, LIPID, TSH, CMADM, BNP, CMP #### [facility] [address] [place] [address] Dr. Rosemary Ames Calcium [Mass/Vol] 9.2 mg/dL Normal 8.5-10.1 [facility] Comment on above: Performed By: #### T 7, LIPID, TSH, CMADM, BNP, CMP #### [facility] [address] [address] [address] Rosemary Ames Chloride [Moles/Vol] 101 mmol/L Normal 98-107 [facility] Comment on above: Performed By: #### T 7, LIPID, TSH, CMADM, BNP, CMP #### [facility] [address] [address] [address] Rosemary Ames CO2 [Moles/Vol] 27.5 mmol/L Normal 21.0-32.0 [facility] Comment on above: Performed By: #### T 7, LIPID, TSH, CMADM, BNP, CMP #### [facility] [address] [place] [address] Dr. Rosemary Ames Creatinine [Mass/Vol] 0.65 mg/dL Normal 0.55-1.02 [facility] Comment on above: Performed By: #### T 7, LIPID, TSH, CMADM, BNP, CMP #### [facility] [address] [place] [address] Dr. Rosemary Ames EGFR-AF BURMESE >60 Normal >=60 [facility] Comment on above: Performed By: #### T 7, LIPID, TSH, CMADM, BNP, CMP #### [facility] [address] [place] [address] Dr. Rosemary Ames EGFR-NON AF BURMESE >60 Normal >=60 [facility] Comment on above: Performed By: #### T 7, LIPID, TSH, CMADM, BNP, CMP #### [facility] [address] [place] [address] Dr. Rosemary Ames Globulin (S) [Mass/Vol] 3.8 g/dL Normal [facility] Comment on above: Performed By: #### T 7, LIPID, TSH, CMADM, BNP, CMP #### [facility] [address] [place] [address] Dr. Rosemary Ames Glucose [Mass/Vol] 299 mg/dL Critically high 74-106 [facility] Comment on above: Performed By: #### T 7, LIPID, TSH, CMADM, BNP, CMP #### [facility] [address] [place] [address] Dr. Rosemary Ames Potassium [Moles/Vol] 4.4 mmol/L Normal 3.5-5.1 [facility] Comment on above: Performed By: #### T 7, LIPID, TSH, CMADM, BNP, CMP #### [facility] [address] [place] [address] Dr. Rosemary Ames Protein [Mass/Vol] 7.9 g/dL Normal 6.4-8.2 [facility] Comment on above: Performed By: #### T 7, LIPID, TSH, CMADM, BNP, CMP #### [facility] [address] [address] [address] Rosemary Ames Sodium [Moles/Vol] 138 mmol/L Normal 136-145 [facility] Comment on above: Performed By: #### T 7, LIPID, TSH, CMADM, BNP, CMP #### [facility] [address] [address] [address] Rosemary Ames Urea nitrogen [Mass/Vol] 8.0 mg/dL Normal 7.0-18.0 [facility] Comment on above: Performed By: #### T 7, LIPID, TSH, CMADM, BNP, CMP #### [facility] [address] [address] [address] Rosemary Ames Urea nitrogen/Creatinine [Mass ratio] 12.3 mg/mg Normal [facility] Comment on above: Performed By: #### T 7, LIPID, TSH, CMADM, BNP, CMP #### [facility] [address] [address] [address] Rosemary Ames TSHon 12-10-2021 TSH 0.921 uIU/mL Normal 0.358-3.740 [facility] Comment on above: Performed By: #### T 7, LIPID, TSH, CMADM, BNP, CMP #### [facility] [address] [address] [address] Rosemary Ames MG MAMM DIAGNOSTIC 3D JESICA CA Don 11-29-2021 MG MAMM DIAGNOSTIC 3D JESICA CAD Patient: TESS ASHLEY Exam Date: 11/29/2021 : 1995 Gender:F Ordering : DR CHAMP LAUREANO . Admission #: [id number] Family : Order #: [id number] CLICK HERE TO VIEW EXAM RADIOLOGY REPORT [...] breast cancer at age 41. LOCATION: [facility] BREAST COMPOSITION: Heterogeneously dense,which may obscure small masses. FINDINGS: DIAGNOSTIC CATEGORY 1--NEGATIVE. RIGHT BREAST: No significant suspicious finding. Ultrasound evaluation in area of concern demonstrates normal appearing fibroglandular tissue. LEFT BREAST: No significant suspicious finding. RECOMMENDATIONS: CLINICAL EVALUATION. PLEASE NOTE: A NORMAL MAMMOGRAM DOES NOT EXCLUDE THE POSSIBILITY OF BREAST CANCER. A CLINICALLY SUSPICIOUS PALPABLE LUMP SHOULD BE BIOPSIED. Dictated by: Seble Biggs M.D. on 11/29/2021 at 09:55 Approved by: Seble Biggs M.D. on 11/29/2021 at 09:59 Normal [facility] US BREAST RIGHT LIMITEDon US BREAST RIGHT LIMITED Patient: TESS ASHLEY Exam Date: 11/29/2021 : 1995 Gender:F Ordering : DR CHAMP LAUREANO . Admission #: [id number] Family : Order #: [id number] CLICK HERE TO VIEW EXAM RADIOLOGY REPORT [...] breast cancer at age 41. LOCATION: [facility] BREAST COMPOSITION: Heterogeneously dense,which may obscure small masses. FINDINGS: DIAGNOSTIC CATEGORY 1--NEGATIVE. RIGHT BREAST: No significant suspicious finding. Ultrasound evaluation in area of concern demonstrates normal appearing fibroglandular tissue. LEFT BREAST: No significant suspicious finding. RECOMMENDATIONS: CLINICAL EVALUATION. PLEASE NOTE: A NORMAL MAMMOGRAM DOES NOT EXCLUDE THE POSSIBILITY OF BREAST CANCER. A CLINICALLY SUSPICIOUS PALPABLE LUMP SHOULD BE BIOPSIED. Dictated by: Seble Biggs M.D. on 11/29/2021 at 09:55 Approved by: Seble Biggs M.D. on 11/29/2021 at 09:59 Normal [facility] MRI BRAIN WO CONon 2 MRI [...] for patient's symptoms. Electronically authenticated by: SEBLE BIGGS Date: 2021-09-13 12:13 Normal [facility] Glucose (Bld) [Mass/Vol]on 0 08-27-2021 Glucose [Mass/Vol] 188 mg/dL [facility] Interpretation and review of laboratory results Abnormal [facility] HbA1c (Bld) [Mass fraction]o n 08-27-2021 Interpretation and review of laboratory results Abnormal [facility] POC Hemoglobin A1Con HbA1c (Bld) [Mass fraction] 7.7 % Abnormal 4 - 6 % [facility] SEROLOGYOrdered By: Fabian echeverria on 08-24-2021 Beta hCG Ql Negative (08/24/21 11:29 PM) Normal [facility] Man Sero XR KNEE LT [...] by: SYLVESTER PRINGLE Date: 2021-08-15 16:18 Normal [facility] US KIDNEYS BLADDERon 04-06-2 022 US KIDNEYS BLADDER EXAMINATION: US KIDNEYS [...] MAY PILLAI Date: 2021-06-13 10:16 Normal [facility] Testosterone Free and Total by LC-MS/MSon 02-04-2021 Sex Hormone Binding Globulin 11 nmol/L Low 30-135 [facility] Comment on above: Result Comment: REFE RENCE INTERVAL: Sex Hormone Binding Globulin Access complete set of age- and/or gender-specific reference intervals for this test in the [employer] [facility] ([employer]). Testosterone, Free LC-MS/MS 9.1 pg/mL Critically high 0.8-7.4 [facility] Comment on above: Result Comment: To c [...] reference intervals for this test in the [facility] ([employer]). This test was developed and its performance characteristics determined by [facility]. It has not been cleared or approved by the [place] Food and Drug Administration. This test was performed in a CLIA certified laboratory and is intended for clinical purposes. Performed By: [facility] [address] [place] [id number] [employer] Licensed Broker: Kiersten Jones MD Testosterone, LC-MS/MS 35 ng/dL Normal 9-55 [facility] Comment on above: Result Comment: Oscar rutherford Testosterone, Females 18 years and older Premenopausal 9-55 ng/dL Postmenopausal 5-32 ng/dL REFERENCE INTERVAL: Testosterone, LC-MS/MS Access complete set of age- and/or gender-specific reference intervals for this test in the [facility] ([employer]). This test was developed and its performance characteristics determined by [facility]. It has not been cleared or approved by the [place] Food and Drug Administration. This test was performed in a CLIA certified laboratory and is intended for clinical purposes. Cortisol Daljit 01-31-2021 Cortisol AM 11.0 ug/dL Normal 6.2-19.4 [facility] Comment on above: Performed By: #### C AKSHAT #### [facility] [address] [place] [id number] Vital Signs Date Time Vital Sign Value Performing Clinician Facility 08-22-2023 00:15-0400 Hourly Rounding [facility] Comment on above: Result Comment: Patient discharged off u nit in wheelchair. 08-22-2023 00:00-0400 Diastolic blood pressure 47 mm[Hg] [facility] 08-22-2023 00:00-0400 Heart rate 122 /min [facility] 08-22-2023 00:00-0400 Mean blood pressure 71 mm[Hg] [facility] 08-22-2023 00:00-0400 Systolic blood pressure 120 mm[Hg] [facility] 08-21-2023 23:45-0400 Blood Pressure Location [facility] 08-21-2023 23:45-0400 Diastolic blood pressure 52 mm[Hg] [facility] 08-21-2023 23:45-0400 Heart rate 119 /min [facility] 08-21-2023 23:45-0400 Mean blood pressure 78 mm[Hg] [facility] 08-21-2023 23:45-0400 Respiratory rate 16 /min [facility] 08-21-2023 23:45-0400 Systolic blood pressure 130 mm[Hg] [facility] 08-21-2023 23:36-0400 [facility] Comment on above: Result Comment: Patient sitting in bed. Call light within reach. 08-21-2023 23:30-0400 Body temperature 97.88 [degF] [facility] 08-21-2023 23:30-0400 Diastolic blood pressure 69 mm[Hg] [facility] 08-21-2023 23:30-0400 Heart rate 135 /min [facility] 08-21-2023 23:30-0400 Mean blood pressure 82 mm[Hg] [facility] 08-21-2023 23:30-0400 Respiratory rate 18 /min [facility] 08-21-2023 23:30-0400 Systolic blood pressure 107 mm[Hg] [facility] 08-21-2023 22:09-0400 Hourly Rounding [facility] Comment on above: Result Comment: Labetalol given for BP. 08-21-2023 21:30-0400 Body temperature 98.42 [degF] [facility] 08-21-2023 20:20-0400 Diastolic blood pressure 91 mm[Hg] Tyler Melina [facility] 08-21-2023 20:20-0400 Heart rate 138 /min Tyler Melina [facility] 08-21-2023 20:20-0400 Mean blood pressure 110 mm[Hg] Tyler Melina [facility] 08-21-2023 20:20-0400 Respiratory rate 20 /min Tyler Melina [facility] 08-21-2023 20:20-0400 SaO2% (BldA) [Mass fraction] 97 % Tyler Melina [facility] 08-21-2023 20:20-0400 Systolic blood pressure 149 mm[Hg] Tyler Melina [facility] 08-21-2023 19:43-0400 Diastolic blood pressure 86 mm[Hg] Tyler Melina [facility] 08-21-2023 19:43-0400 Heart rate 141 /min Tyler Melina [facility] 08-21-2023 19:43-0400 Mean blood pressure 110 mm[Hg] Tyler Melina [facility] 08-21-2023 19:43-0400 Respiratory rate 18 /min Tyler Melina [facility] 08-21-2023 19:43-0400 SaO2% (BldA) [Mass fraction] 97 % Tyler Melina [facility] 08-21-2023 19:43-0400 Systolic blood pressure 158 mm[Hg] Tyler Melina [facility] 08-21-2023 19:22-0400 Body temperature 98.6 [degF] Tyler Melina [facility] 08-21-2023 19:22-0400 Diastolic blood pressure 103 mm[Hg] Tyler Melina [facility] 08-21-2023 19:22-0400 Heart rate 131 /min Tyler Melina [facility] 08-21-2023 19:22-0400 Mean blood pressure 118 mm[Hg] Tyler Melina [facility] 08-21-2023 19:22-0400 Respiratory rate 16 /min Tyler Melina [facility] 08-21-2023 19:22-0400 SaO2% (BldA) [Mass fraction] 97 % Tyler Melina [facility] 08-21-2023 19:22-0400 Systolic blood pressure 148 mm[Hg] Tyler Melina [facility] 08-21-2023 19:07-0400 Body temperature 99.14 [degF] Tyler Melina [facility] 08-21-2023 19:07-0400 Heart rate 140 /min Tyler Melina [facility] 08-21-2023 19:07-0400 Respiratory rate 22 /min Tyler Melina [facility] 05-07-2023 15:08-0500 Body height 152.4 cm [facility]al [facility] Work Phone: [employer] 05-07-2023 15:08-0500 Body mass index (BMI) [Ratio] 48.43 kg/m2 Opal Heath TRUCKLOAD OWNER OPERATOR-PORTRAIT PAINTER Work Phone: [facility] 05-07-2023 15:08-0500 Body weight 112.49 kg Opal Heath TRUCKLOAD OWNER OPERATOR-PORTRAIT PAINTER Work Phone: [facility] 05-07-2023 15:08-0500 Diastolic blood pressure 64 mm[Hg] Opal Heath TRUCKLOAD OWNER OPERATOR-PORTRAIT PAINTER Work Phone: [facility] 05-07-2023 15:08-0500 Heart rate 111 /min Opal Heath TRUCKLOAD OWNER OPERATOR-PORTRAIT PAINTER Work Phone: [facility] 05-07-2023 15:08-0500 Systolic blood pressure 136 mm[Hg] Opal Heath TRUCKLOAD OWNER OPERATOR-PORTRAIT PAINTER Work Phone: [facility] 05-07-2023 14:16-0500 Body height 152.4 cm [facility] 05-07-2023 14:16-0500 Body mass index (BMI) [Ratio] 48.63 kg/m2 [facility] 05-07-2023 14:16-0500 Body weight 112.95 kg [facility] 04-17-2023 10:25-0500 Body mass index (BMI) [Ratio] 47.85 kg/m2 Mario Zoraida DO Work Phone: [facility] 04-17-2023 10:25-0500 Body weight 111.13 kg Mario Zoraida DO Work Phone: [facility] 04-17-2023 10:25-0500 Diastolic blood pressure 76 mm[Hg] Mario Zoraida DO Work Phone: [facility] 04-17-2023 10:25-0500 Systolic blood pressure 122 mm[Hg] Mario Zoraida DO Work Phone: [facility] 08-27-2021 11:09-0400 Body height 152.4 cm Gregorio Floyd MD Work Phone: [facility] 08-27-2021 11:09-0400 Body mass index (BMI) [Ratio] 46.68 kg/m2 Gregorio Floyd MD Work Phone: [facility] 08-27-2021 11:09-0400 Body weight 108.41 kg Gregorio Floyd MD Work Phone: [facility] 08-27-2021 11:09-0400 Diastolic blood pressure 86 mm[Hg] Gregorio Floyd MD Work Phone: [facility] 08-27-2021 11:09-0400 Heart rate 97 /min Gregorio Floyd MD Work Phone: [facility] 08-27-2021 11:09-0400 Systolic blood pressure 125 mm[Hg] Gregorio Floyd MD Work Phone: [facility] 08-25-2021 14:00-0400 Diastolic blood pressure 81 mm[Hg] Tyler Melina [facility] 08-25-2021 14:00-0400 Heart rate 85 /min Tyler Melina [facility] 08-25-2021 14:00-0400 Mean blood pressure 100 mm[Hg] Tyler Melina [facility] 08-25-2021 14:00-0400 Respiratory rate 16 /min Tyler Melina [facility] 08-25-2021 14:00-0400 SaO2% (BldA) [Mass fraction] 98 % Tyler Melina [facility] 08-25-2021 14:00-0400 Systolic blood pressure 138 mm[Hg] Tyler Melina [facility] 08-25-2021 01:00-0400 Diastolic blood pressure 85 mm[Hg] Tyler Melina [facility] 08-25-2021 01:00-0400 Heart rate 87 /min Tyler Melina [facility] 08-25-2021 01:00-0400 Respiratory rate 16 /min Tyler Melina [facility] 08-25-2021 01:00-0400 SaO2% (BldA) [Mass fraction] 98 % Tyler Melina [facility] 08-25-2021 01:00-0400 Systolic blood pressure 140 mm[Hg] Tyler Melina [facility] 08-25-2021 00:00-0400 Diastolic blood pressure 89 mm[Hg] Tyler Melina [facility] 08-25-2021 00:00-0400 Heart rate 95 /min Tyler Melina [facility] 08-25-2021 00:00-0400 SaO2% (BldA) [Mass fraction] 97 % Tyler Melina [facility] 08-25-2021 00:00-0400 Systolic blood pressure 149 mm[Hg] Tyler Melina [facility] 08-24-2021 22:50-0400 Body temperature 100.22 [degF] Tyler Melina [facility] Encounters Encounter Date Encounter Type Care Provider Facility Start: 08-21-2023 End: 08-22-2023 ambulatory Sg Infante Facility:[facility] Start: 08-21-2023 End: 08-22-2023 OB Triage Sg Infante [facility] Start: 08-21-2023 End: 08-21-2023 Emergency department patient visit Tyler Summers [facility] Start: 08-20-2023 End: 08-20-2023 ambulatory SG ROBERTSON [facility] Start: 08-13-2023 End: 08-13-2023 ambulatory ANNA BUTLERHID [facility] Start: 08-11-2023 End: 08-11-2023 ambulatory MARIO ZORAIDA Not Available Start: 08-05-2023 End: 08-05-2023 ambulatory MARIO ZORAIDA Not Available Start: 07-29-2023 End: 07-29-2023 ambulatory [facility] Start: 07-28-2023 End: 07-28-2023 ambulatory MARIO ZORAIDA Not Available Start: 07-23-2023 End: 07-23-2023 ambulatory [facility] Start: 07-22-2023 End: 07-22-2023 ambulatory SHWETHA WALTON Not Available Start: 07-14-2023 End: 07-14-2023 ambulatory MARIO ZORAIDA Not Available Start: 07-10-2023 End: 07-10-2023 ambulatory [facility] Start: 06-30-2023 End: 06-30-2023 ambulatory MARIO ZORAIDA Not Available Start: 06-30-2023 End: 06-30-2023 ambulatory [facility] Start: 06-23-2023 End: 06-23-2023 ambulatory [place] [facility] Start: 06-23-2023 End: 06-23-2023 ambulatory [facility] Start: 06-11-2023 End: 06-11-2023 ambulatory MARIO R ZORAIDA [facility] Start: 06-10-2023 End: 06-10-2023 ambulatory MARIO ZORAIDA Not Available Start: 06-09-2023 Orders Only Leana franco MD Work Phone: [facility] Start: 06-04-2023 Orders Only Leana franco MD Work Phone: [facility] Comment on above: Type 2 diabetes naz itus in , second trimester (Primary Dx) Start: 05-29-2023 End: 05-29-2023 ambulatory MARIO JARRETTO Not Available Start: 05-29-2023 End: 05-29-2023 Office outpatient visit 25 minutes Leana Burr MD Work Phone: [facility] Comment on above: Type 2 diabetes naz itus in , second trimester (Primary Dx) Start: 05-29-2023 End: 05-29-2023 ambulatory LEANA BURR [facility] Start: 05-20-2023 End: 05-20-2023 Orders Only Mary Guidry TRUCKLOAD OWNER OPERATOR-CNM Work Phone: [facility] Comment on above: Type 2 diabetes naz itus in , second trimester (Primary Dx) Start: 05-20-2023 End: 05-20-2023 Office outpatient new 45 minutes Leana Burr MD Work Phone: [facility] Comment on above: Type 2 diabetes naz itus in , second trimester (Primary Dx) Start: 05-13-2023 Telephone encounter Joann pastrana RN Work Phone: [facility] Start: 05-12-2023 Telephone encounter Joann pastrana RN Work Phone: [facility] Start: 05-12-2023 End: 05-12-2023 ambulatory SHWETHA BRENNEREY Not Available Start: 05-08-2023 Orders Only Queta Johnson r[facility]- [facility] at [facility] Comment on above: Type 2 diabetes naz itus in , second trimester (Primary Dx) Start: 05-07-2023 End: 05-07-2023 Office outpatient visit 25 minutes Opal Heath TRUCKLOAD OWNER OPERATOR-PORTRAIT PAINTER Work Phone: [facility] Comment on above: Type 2 diabetes naz itus in , second trimester (Primary Dx); Insulin pump in place; HTN in , chronic Start: 05-07-2023 End: 05-07-[address] Work Phone: [facility] Comment on above: Type 2 diabetes naz itus in , second trimester (Primary Dx); Pre-existing type 2 diabetes mellitus during in first trimester Start: 04-23-2023 Chart abstracting Opal Gurmeet falk APRN-PORTRAIT PAINTER Work Phone: [facility] Start: 04-23-2023 Telephone encounter Danyell Ortiz RN Ma ternal- [facility] at [facility] Start: 04-17-2023 End: 04-17-2023 Office outpatient visit [...] PENG Facility:[facility] Start: 05-14-[address] CHAMP LAUREANO . Facili ty:[facility] Start: 05-01-[address] CHAMP LAUREANO . Facili ty:[facility] Start: 04-23-2022 End: 04-24-[address] CHAMP LAUREANO . Facility:[facility] Start: 04-15-[address] CHAMP LAUREANO . Facili ty:[facility] Start: 04-10-2022 End: 04-11-[address] CHAMP LAUREANO . Facility:[facility] Start: 03-13-2022 End: 03-13-2022 ambulatory MARINA ALBA . Facility:[facility] Start: 12-10-2021 End: 12-11-[address] CHAMP LAUREANO . Facility:[facility] Start: 11-29-2021 End: 11-30-[address] CHAMP LAUREANO . Facility:[facility] Start: 11-08-[address] CHAMP LAUREANO . Facili ty:[facility] Start: 09-12-2021 End: 09-13-[address] CHAMP LAUREANO . Facility:[facility] Start: 08-27-2021 End: 08-27-2021 ambulatory CHAMP LAUREANO [facility] Start: 08-27-2021 End: 08-27-2021 Office outpatient new 60 minutes Champ Laureano MD Work Phone: [facility] Comment on above: Type 2 diabetes naz itus with hyperglycemia, unspecified whether fpc insulin use (HCC) (Primary Dx); Thyroid disorder; Hair loss Start: 08-24-2021 End: 08-25-2021 Emergency department patient visit Tyler Summers [facility] Start: 08-15-2021 End: 08-15-2021 ambulatory GREGORY FAN . Facility:[facility] Start: 06-13-2021 End: 06-14-[address] CHAMP LAUREANO . Facility:[facility] Start: 05-04-2021 Transcribe Orders Champ Laureano MD Work Phone: [facility] Comment on above: Thyroid disorder (Pr imary Dx); Hair loss Procedures Date Procedure Procedure Detail Performing Clinician Start: 05-12-2023 Microscopic observat ion [Identifier] in Cervix by Cyto stain Leana Burr MD Work Phone: Start: 04-01-2023 Antibody screen Bebe Heath TRUCKLOAD OWNER OPERATOR-PORTRAIT PAINTER Work Phone: Start: 04-01-2023 Bacteria identified in [...] malign ant neoplasm of cervix Pap Smear [facility] Start: 05-28-2024 Tobacco Screening Tobacco Screening [facility] Start: 05-07-2024 Adult BMI Screening Adult BMI Screen ing [facility] Start: 05-07-2024 Tobacco Screening Tobacco Screening [facility] Start: 05-07-2024 End: 05-07-2024 US MFM with or without consult US MFM with or without consult Imaging Routine Type 2 diabetes mellitus in , second trimester Expected: 05/07/2024 (Approximate), Expires: 05/07/2024 [facility] Work Phone: Comment on above: Expected: 05/07/2024 (Approximate), Expires: 05/07/2024 Start: 11-09-2023 Influenza vaccination Influenza Vacc ine [facility] Start: 06-11-2023 End: 06-11-2023 Patient encounter procedure 06/11/2023 1:00 PM EDT Appointment [facility] [address] [place] [address] [facility] Start: 06-10-2023 End: 06-10-2023 Patient encounter procedure 06/10/2023 3:00 PM EDT Office Visit [facility] [address] [place] [address] Leana Burr MD [address] [place] [address] [facility] Start: 06-04-2023 End: 06-04-2023 Patient encounter procedure 06/04/2023 10:45 AM EDT Office Visit [facility] [address] [place] [phone] Leana Burr MD [address] [place] [address] [facility] Start: 05-29-2023 End: 05-29-2023 Patient encounter procedure 05/29/2023 10:45 AM EDT Office Visit [facility] [address] [place] [phone] Leana Burr MD [address] [place] [address] [facility] Start: 05-20-2023 End: 05-20-2023 Telemedicine consultation with patient 05/20/2023 8:00 AM EDT Telemedicine [facility] [address] [place] [phone] Leana Brur MD [address] [place] [address] [facility] Start: 05-12-2023 End: 05-12-2023 Patient encounter procedure 05/12/2023 8:30 AM EST Routine [facility] [address] [place] [phone] Shwetha Walton PA [address] [place] [address] [facility] Start: 05-07-2023 End: 05-07-2023 Patient encounter procedure 05/07/2023 3:00 PM EST Office Visit [facility] [address] [facility] [place] [place] [address] Opal Heath, GALLO-PORTRAIT PAINTER [address] [facility] [place] [place] [address] [facility] Start: 05-07-2023 End: 05-07-2023 ambulatory 05/07/2023 1:00 PM EST Support Visit [facility] [address] [place] [address] Shital Chen, RD [address] [place] [address] [facility] Start: 11-08-2022 Influenza vaccination Influenza Vacc ine [facility] Start: 11-27-2021 End: 11-27-2021 Patient encounter procedure 11/27/2021 Office Visit Endocrinology Gregorio Floyd MD [address] [place] [address] [facility] Start: 11-27-2021 Hemoglobin A1c measurement A1C [facility] Start: 11-08-2021 Influenza vaccination Sequenti al Influenza Vaccine (Season Ended) [facility] Start: 06-25-2021 End: 06-25-2021 Patient encounter procedure 06/25/2021 Office Visit Endocrinology Grgeorio Floyd MD [address] [place] [address] [facility] Start: 11-08-2020 Influenza vaccination Sequenti al Influenza Vaccine (#1) [facility] Start: 11-14-2015 Screening for malign ant neoplasm of cervix Pap Smear [facility] Start: 2013 DTaP,Tdap and Td Vaccines (1 - Tdap) DTaP,Tdap and Td Vaccines (1 - Tdap) [facility] Start: 2012 Adult BMI Follow Up Plan Adult BMI Follow Up Plan [facility] Start: 2012 Adult BMI Screening Adult BMI Screen ing [facility] Start: 2012 Diabetic foot examination Diabetic Foot Exam [facility] Start: 2012 Hepatitis C screening Hepatitis C Sc reening [facility] Start: 2009 HIV screening HIV Screening [facility] Start: 2006 Depression screening using PHQ-9 (Patient Health Questionnaire 9) score [facility] Start: 2006 Tobacco Screening Tobacco Screening [facility] Start: 2005 DTaP,Tdap and Td Vaccines (5 - Tdap) DTaP,Tdap and Td Vaccines (5 - Tdap) [facility] Start: 2004 Diabetic foot examination Foot Exam [facility] Start: 2004 Microalbumin measurement, urine, quantitative Urine Microalbumin [facility] Start: 2004 Ophthalmic examinati on and evaluation Ophthalmology Exam [facility] Start: 2000 Pneumococcal Vaccine : Ped or At-Risk (1 - PCV) Pneumococcal Vaccine: Ped or At-Risk (1 - PCV) [facility] Start: 11-14-1999 COVID-19 Vaccine (#1) COVID-19 Vacci ne (#1) [facility] Start: 11-14-1999 COVID-19 Vaccine (1) COVID-19 Vaccin e (1) [facility] Start: 1997 History and physical examination, annual for health maintenance Wellness Visit [facility] Start: 1994 Glaucoma screening Diabetic Op hthalmology Exam [facility] Start: 1994 Screening for malign ant neoplasm of cervix Pap Smear [facility] Start: 1994 Tetanus vaccination Tetanus: Every 1 0yrs [facility] Start: 1994 Urine screening for protein Urine Microalbumin [facility] End: 08-27-2022 C peptide [Mass/volume] in Serum or Plasma C-peptide Lab Routine Type 2 diabetes mellitus with hyperglycemia, unspecified whether fpc insulin use (HCC) 1 Occurrences starting 08/27/2021 until 08/27/2022 [facility] Comment on above: 1 Occurrences starti ng 08/27/2021 until 08/27/2022 End: 05-19-2024 C-peptide C-peptide Lab Routine Type 2 diabetes mellitus in , second trimester 1 Occurrences starting 05/20/2023 until 05[facility]19/[facility]: 1 Occurrences starti ng 05/20/2023 until 05/19/2024 End: 05-19-2024 GAD65 Ab assay GAD65 Ab assay Lab Routine Type 2 diabetes mellitus in , second trimester 1 Occurrences starting 05/20/2023 until 05/19/2024 [employer] Phone: Comment on above: 1 Occurrences starti ng 05/20/2023 until 05/19/2024 End: 08-27-2022 Glucose [Mass/volume] in Serum or Plasma Glucose Lab Routine Type 2 diabetes mellitus with hyperglycemia, 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 insulin use (HCC) Ordered: 08/27/2021 [facility] Comment on above: Ordered: 08/27/2021 End: 05-19-2024 Insulinoma Associated Antibody 2 Insulinoma Associated Antibody 2 Lab Routine Type 2 diabetes mellitus in , second trimester 1 Occurrences starting 05/20/2023 until 05/19/2024 [facility] Comment on above: 1 Occurrences starti ng 05/20/2023 until 05/19/2024 End: 08-27-2022 Islet cell antibody measurement Anti-Islet Cell (GAD65) Antibody Lab Routine Type 2 diabetes mellitus with hyperglycemia, unspecified whether fpc insulin use (HCC) 1 Occurrences starting 08/27/2021 until 08/27/2022 [facility] Comment on above: 1 Occurrences starti ng 08/27/2021 until 08/27/2022 End: 08-27-2022 Lipid 1996 panel - Serum or Plasma Lipid Panel Lab Routine Type 2 diabetes mellitus with hyperglycemia, 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 1994 Unknown [id number] 2.16. 840.1.060122.3.579.2.903 1994 Unknown [id number] 2.16.84 0.1.342679.3.579.2.593 1994 Unknown [id number] 2.16.84 0.1.310438.3.579.2.593 1994 Unknown [id number] 2.16.84 0.1.920964.3.579.2.593 1994 Unknown [id number] 2.16.84 0.1.009709.3.579.2.593 1994 Unknown [id number] 2.16.84 0.1.298628.3.579.2.593 1994 Unknown [id number] 2.16.84 0.1.738165.3.579.2.593 1994 Unknown [id number] 2.16.84 0.1.907066.3.579.2.593 1994 Unknown [id number] 2.16.84 0.1.154538.3.579.2.593 1994 Unknown [id number] 2.16.84 0.1.889013.3.579.2.593 1994 Unknown [id number] 2.16.84 0.1.621791.3.579.2.593 1994 Unknown [id number] 2.16.84 0.1.368003.3.579.2.593 1994 Unknown [id number] 2.16.84 0.1.208599.3.579.2.593 1994 Unknown [id number] 2.16.84 0.1.610559.3.579.2.593 1994 Unknown [id number] 2.16.84 0.1.055457.3.579.2.125 1994 Unknown [id number] 2.16.84 0.1.921309.3.579.2.1259 1994 Unknown [id number] 2.16.84 0.1.184804.3.579.2.1258 1994 Unknown [id number] 2.16.84 0.1.114675.3.579.2.125 1994 Unknown [id number] 2.16.84 0.1.878657.3.579.2.1258 1994 Unknown [id number] 2.16.84 0.1.781213.3.579.2.125 1994 Unknown [id number] 2.16.84 0.1.167362.3.579.2.125 1994 Unknown [id number] 2.16.84 0.1.981941.3.579.2.125 1994 Unknown [id number] 2.16.84 0.1.483859.3.579.2.1258 1994 Unknown [id number] 2.16.84 0.1.313861.3.579.2.1258 1994 Unknown [id number] 2.16.84 0.1.632179.3.579.2.1258 1994 Unknown [id number] 2.16.840 .1.530177.3.579.2.9 1994 Unknown [id number] 2.16.8 40.1.052959.3.579.2.1285 1994 Unknown [id number] 2.16.8 40.1.655394.3.579.2.1285 1994 Unknown [id number] 2.16.8 40.1.573711.3.579.2.1285 1994 Unknown [id number] 2.16.8 40.1.376770.3.579.2.1285 1994 Unknown [id number] 2.16.8 40.1.039508.3.579.2.1285 1994 Unknown [id number] 2.16.8 40.1.664954.3.579.2.1285 1994 Unknown [id number] 2.16.8 40.1.599214.3.579.2.1285 1994 Unknown [id number] 2.16.8 40.1.305907.3.579.2.1285 1994 Unknown [id number] 2.16.8 40.1.944939.3.579.2.1285 1994 Unknown [id number] 2.16.8 40.1.975641.3.579.2.1285 1994 Unknown [id number] 2.16.8 40.1.608689.3.579.2.1285 1994 Unknown [id number] 2.16.8 40.1.303212.3.579.2.1285 1994 Unknown [id number] 2.16.8 40.1.845298.3.579.2.1285 1994 Unknown [id number] 2.16.8 40.1.719990.3.579.2.1285 1994 Unknown [id number] 2.16.8 40.1.448585.3.579.2.1285 1994 Unknown [id number] 2.16.8 40.1.007870.3.579.2.1286 1994 Unknown [id number] 2.16.8 40.1.218488.3.579.2.727 1994 Unknown [id number] 2.16.8 40.1.512368.3.579.2.727 1994 Unknown [id number] 2.16.8 40.1.452805.3.579.2.727 1994 Unknown [id number] 2.16.8 40.1.097437.3.579.2.727 1994 Unknown [id number] 2.16.8 40.1.240698.3.579.2.727 1994 Unknown [id number] 2.16.8 40.1.361310.3.579.2.727 1959 Medicaid [id number] 1959 Unknown [id number] 1959 Unknown [id number] 1959 Unknown [id number] Social History Date Type Detail Facility Start: 04-23-2023 Tobacco smoking status MNIS Tobacco smoking consumption unknown [facility] Start: 1994 Sex Assigned At Not on file [facility] Start: 08-24-2021 Tobacco smoking status Never [facility] Start: 03-24-2023 End: 05-07-2023 Sex Assigned At Female [facility] Start: 08-17-2021 End: 08-27-2021 Exposure to SARS-CoV-2 (event) Not sure [facility] Start: 03-24-2023 End: 05-07-2023 Tobacco smoking status MNIS Never smoked tobacco [facility] Start: 04-17-2023 Alcohol intake Lifetime non-d jorge (finding) [facility] Start: 03-24-2023 End: 05-07-2023 History of Social function [facility] Start: 02-04-2023 [facility] Start: 1994 Sex Assigned At Female N [facility] Start: 02-27-2023 Gender identity Identifies as female gender (finding) [facility] Start: 05-07-2023 Tobacco use and exposure Smokeless tobacco non-user Data Impact Start: 05-07-2023 End: 05-29-2023 Alcohol intake Ex-drinker (finding) [employer] [facility] Procedure Code Equipment Code Equipment Origin al Text Equipment Identifier Dates 1 each by Other route if needed [id number] Start: 03-11-2023 Use a new needle with each injection [id number] Start: 05-07-2023 Functional Status Date Assessment Result Facility 08-21-2023 Functional Status N/A [facility] 08-21-2023 Functional Status N/A [facility] 08-24-2021 Functional Status N/A [facility] Clinical Notes 08-24-2021 to 08-22-2023 Note Date & Type Note Facility 08-22-2023 Hospital Discharg e instructions Patient Education 08/21/2023 23:40:58 Vaginal Bleeding During , Third Trimester, Rgll-hg-Gfoq Vaginal Bleeding During , Third Trimester A small amount of bleeding, or spotting, from the vagina is common during early . Sometimes the bleeding is normal and is not a problem, and sometimes it is a sign of something serious. In the third trimester, normal bleeding can happen: Because of changes in your blood vessels. When you have sex. When you have pelvic exams. During this time, some abnormal things can cause bleeding. These include: Infection in the womb. Growths in the lowest part of the womb (cervix). These growths are also called polyps. Problems of the placenta. The placenta may: ?Block the opening of the cervix. ?Break away from the womb. ?Grow into the muscle of the womb. Early labor. Tell your doctor right away about any bleeding from your vagina. Follow these instructions at home: Watch your bleeding Watch your condition for any changes. Let your doctor know if you are worried about something. Try to know what causes your bleeding. Ask yourself these questions: ?Does the bleeding start on its own? ?Does the bleeding start after something is done, such as sex or a pelvic exam? Use a diary to write the things you see about your bleeding. Write in your diary: ?If the bleeding flows freely without stopping, or if it starts and stops, and then starts again. ?If the bleeding is heavy or light. ?How many pads you use in a day and how much blood is in them. Tell your doctor if you pass tissue. He or she may want to see it. Activity Follow your doctor's instructions about how active you can be. Your doctor may recommend that you: ?Stay in bed and only get up to use the bathroom. ?Continue light activity. Ask your doctor if it is safe for you to drive. Do not lift anything that is heavier than 10 lb (4.5 kg), or the limit that you are told. Do not have sex until your doctor says that this is safe. If needed, make plans for someone to help you with your normal activities. Medicines Take zfoc-qne-njzoxtw and prescription medicines only as told by your doctor. Do not take aspirin. It can cause bleeding. General instructions Do not use tampons. Do not douche. Keep all follow-up visits. Contact a doctor if: You have vaginal bleeding at any time during . You have cramps. You have a fever. Get help right away if: You have very bad cramps. You have very bad pain in your back or belly (abdomen). You have a gush of fluid from your vagina. Your bleeding gets worse. You pass large clots or a lot of tissue from your vagina. You feel light-headed or weak. You pass out (faint). Your baby is moving less than usual, or not moving at all. Summary A small amount of bleeding is normal during . Some bleeding may be caused by more serious problems. Tell your doctor right away about any bleeding from your vagina. Follow instructions from your doctor about how active you can be. You may need someone to help you with your normal activities. This information is not intended to replace advice given to you by your health care provider. Make sure you discuss any questions you have with your health care provider. Document Revised: 11/16/2020 Document Reviewed: 11/16/2020 [email or web address] Patient Education 2022 [email or web address] 08/21/2023 23:40:58 Hypertension During , Emwg-fu-Ncgb Hypertension During Hypertension is also called high blood pressure. High blood pressure means that the force of the blood moving in your body is high enough to cause problems for you and your baby. Different types of high blood pressure can happen during . The types are: High blood pressure before you got . This is called chronic hypertension. This can continue during your . Your doctor will want to keep checking your blood pressure. You may need medicine to control your blood pressure while you are . You will need follow-up visits after you have your baby. High blood pressure that goes up during when it was normal before. This is called gestational hypertension. It will often get better after you have your baby, but your doctor will need to watch your blood pressure to make sure that it is getting better. You may develop high blood pressure after giving . This is called hypertension. This often occurs within 48 hours after childbirth but may occur up to 6 weeks after giving . Very high blood pressure during is an emergency that needs treatment right away. How does this affect me? If you have high blood pressure during , you have a higher chance of developing high blood pressure: As you get older. If you get again. In some cases, high blood pressure during can cause: Stroke. Heart attack. Damage to the kidneys, lungs, or liver. Preeclampsia. HELLP syndrome. Seizures. Problems with the placenta. How does this affect my baby? Your baby may: Be born early. Not weigh as much as he or she should. Not handle labor well, leading to a . This condition may also result in a baby's before (stillbirth). What are the risks? Having high blood pressure during a past . Being overweight. Being age 35 or older. Being for the first time. Being with more than one baby. Becoming using fertility methods, such as IVF. Having other problems, such as diabetes or kidney disease. What can I do to lower my risk? Keep a healthy weight. Eat a healthy diet. Follow what your doctor tells you about treating any medical problems that you had before you got . It is very important to go to all of your doctor visits. Your doctor will check your blood pressure and make sure that your is progressing as it should. Treatment should start early if a problem is found. How is this treated? Treatment for high blood pressure during can vary. It depends on the type of high blood pressure you have and how serious it is. If you were taking medicine for your blood pressure before you got , talk with your doctor. You may need to change the medicine during if it is not safe for your baby. If your blood pressure goes up during , your doctor may order medicine to treat this. If you are at risk for preeclampsia, your doctor may tell you to take a low-dose aspirin while you are . If you have very high blood pressure, you may need to stay in the hospital so you and your baby can be watched closely. You may also need to take medicine to lower your blood pressure. In some cases, if your condition gets worse, you may need to have your baby early. Follow these instructions at home: Eating and drinking Drink enough fluid to keep your pee (urine) pale yellow. Avoid caffeine. Lifestyle Do not smoke or use any products that contain nicotine or tobacco. If you need help quitting, ask your doctor. Do not use alcohol or drugs. Avoid stress. Rest and get plenty of sleep. Regular exercise can help. Ask your doctor what kinds of exercise are best for you. General instructions Take dehq-wmj-cyhzejt and prescription medicines only as told by your doctor. Keep all and follow-up visits. Contact a doctor if: You have symptoms that your doctor told you to watch for, such as: ?Headaches. ?A feeling like you may vomit (nausea). ?Vomiting. ?Belly (abdominal) pain. ?Feeling dizzy or light-headed. Get help right away if: You have symptoms of serious problems, such as: ?Very bad belly pain that does not get better with treatment. ?A very bad headache that does not get better. ?Blurry vision. ?Double vision. ?Vomiting that does not get better. ?Sudden, fast weight gain. ?Sudden swelling in your hands, ankles, or face. ?Bleeding from your vagina. ?Blood in your pee. ?Shortness of breath. ?Chest pain. ?Weakness on one side of your body. ?Trouble talking. Your baby is not moving as much as usual. These symptoms may be an emergency. Get help right away. Call your local emergency services (911 in the [place] Do not wait to see if the symptoms will go away. Do not drive yourself to the hospital. Summary High blood pressure is also called hypertension. High blood pressure means that the force of the blood moving in your body is high enough to cause problems for you and your baby. Get help right away if you have symptoms of serious problems due to high blood pressure. Keep all and follow-up visits. This information is not intended to replace advice given to you by your health care provider. Make sure you discuss any questions you have with your health care provider. Document Revised: 11/16/2020 Document Reviewed: 11/16/2020 [email or web address] Patient Education 2022 [email or web address] 08/21/2023 23:40:58 Form - Movement Counts Movement Counts Patient Name: Patient Due Date: What is a movement count? A movement count is the number of times that you feel your baby move during a certain amount of time. This may also be called a kick count. A movement count is recommended for every woman. You may be asked to start counting movements as early as week 28 of your . Pay attention to when your baby is most active. You may notice your baby's sleep and wake cycles. You may also notice things that make your baby move more. You should do a movement count: When your baby is normally most active. At the same time each day. A good time to count movements is while you are resting, after having something to eat and drink. How do I count movements? 1.Find a quiet, comfortable area. Sit, or lie down on your side. 2.Write down the date, the start time and stop time, and the number of movements that you felt between those two times. Take this information with you to your health care visits. 3.Write down your start time when you feel the first movement. 4.Count kicks, flutters, swishes, rolls, and jabs. You should feel at least 10 movements. 5.You may stop counting after you have felt 10 movements, or if you have been counting for 2 hours. Write down the stop time. 6.If you do not feel 10 movements in 2 hours, contact your health care provider for further instructions. Your health care provider may want to do additional tests to assess your baby's well-being. Contact a health care provider if: You feel fewer than 10 movements in 2 hours. Your baby is not moving like he or she usually does. Date: Start time: Stop time: Movements: Date: Start time: Stop time: Movements: Date: Start time: Stop time: Movements: Date: Start time: Stop time: Movements: Date: Start time: Stop time: Movements: Date: Start time: Stop time: Movements: Date: Start time: Stop time: Movements: Date: Start time: Stop time: Movements: Date: Start time: Stop time: Movements: This information is not intended to replace advice given to you by your health care provider. Make sure you discuss any questions you have with your health care provider. Document Revised: 10/14/2019 Document Reviewed: 10/14/2019 [email or web address] Patient Education 2022 [employer]. Follow Up Care 08/21/2023 21:25:46 With:Mario [place] Address: [address] , [place] [address] Business (1) When:08/22/2023 Comments:Call Dr if fever>100.5 F, heavy bleedingCall for severe abdominal painCall physician for heavy vaginal bleedingCall physician if symptoms worsenReturn for contractions closer, longer, harderReturn for decreased movementReturn if ruptured membranes or vaginal bleeding [facility] 08-22-2023 Note The following Patien t Education Materials have been given to the patient: EducationMaterial [facility] 08-21-2023 Hospital Discharg e instructions Patient Education [...] your health care provider. General instructions Take yztl-gqt-razluhh and prescription medicines only as told by [...] provider. Document Revised: 05/25/2020 Document Reviewed: 05/25/2020 [email or web address] Patient Education 2022 [employer]. Follow Up Care 08/21/2023 19:05:36 With:Roosevelt Maldonado Address: [address] [place] [address]- Business (1) When:08/24/2023 21:04:34 With:Champ Laureano Address: [address] [place] [phone]- Business (1) When:Within 3 Day(s) [facility] 08-21-2023 Evaluation + Plan note Extrac lincoln [...] Views Right XR Wrist 3+ Views Left [facility]03-21-2024 History of Present illness Narrative* Leana Burr MD - 05/29/2023 10:45 AM EDT [facility]- Diabetes Visit TELEMEDICINE VISIT: This is an audiovisual visit. This is done to assess the patient and to determine the best medical care. The patient was located at home in [place] and the provider was located at the medical office in [place]. The patient states they are not driving [...] of Delivery: 10/28/23. She is referred from [facility] who is managing along with us. She has had her diabetes education with [facility]. Please see media for full pump download. [...] History of Diabetic Retinopathy: unknown. Last seen [facility] [facility] unknown History of peripheral neuropathy: none Medications [...] Depression Diabetes mellitus ([facility]) Disease of thyroid gland Hypertension History reviewed. [...] 10/28/23. She has had diabetes education with [facility]. We reviewed the following We have discussed the issue of insulin-dependent diabetes mellitus and the effect of in detail. There is an elevated risk of malformation of the order of 22% in those who have eqjoghzbubW8Q 8.5 and higher. Patient aware that maternal [...] breakfast: try low sugar protein shakes or nigerian yogurt if appetite lower inthe AM. Complications/ [...] with MFM as well. LEANA BURR MD [facility] documented in this encounterTriHealth [facility]03-12-[facility]24 History of Present illness Narrative* Leana Burr MD - 05/20/2023 8:00 AM EDT [facility]- Diabetes Visit Tess Pfeiffer is a [...] of Delivery: 10/28/23. She is referred from [facility] who is managing along with us. She has had her diabetes education with [facility]. Please see media for full pump download. [...] History of Diabetic Retinopathy: unknown. Last seen [employer] [facility] unknown History of peripheral neuropathy: none Medications [...] Depression Diabetes mellitus ([facility]) Disease of thyroid gland Hypertension No past [...] 10/28/23. She has had diabetes education with [facility]. We reviewed the following We have discussed the issue of insulin-dependent diabetes mellitus and the effect of in detail. There is an elevated risk of malformation of the order of 22% in those who have ryespggarlV6H 8.5 and higher. Patient aware that maternal [...] considerably as her current automated basal is rueiaitfi73 units but her basal rates were recently [...] breakfast: try low sugar protein shakes or nigerian yogurt if appetite lower inthe AM. Complications/ [...] with MFM as well. LEANA BURR MD [facility] documented in this encounterTriHealth [facility]03-05-2024 Miscellaneous Notes* Telephone Encounter - Joann [...] and denied any questions. documented in this encounterTriHealth [facility]03-05-2024 Telephone encounter Note* Telephone Encounter - [...] meals. Verbalized understanding and denied any questions. [facility] Phone: [phone] 416-791903-04-2024 Miscellaneous Notes* Telephone Encounter - Joann Walsh RN - 05/12/2023 4:36 PM ESTSummary: M Insulin Pump Questions Called and spoke [...] week 05/20/23. Informed would call back after [facility] provider reviews. documented in this encounterTriHealth [facility]03-04-2024 Telephone encounter Note* Telephone Encounter - Joann Walsh RN - 05/12/2023 4:36 PM EST Summary: [facility] Insulin Pump Questions Called and spoke with Mia about insulin pump questions. When asked if bolusing with each meal, stated has been bad about doing this the past two days and denied any additional injections for bolusing. Stated was not told to turn off automated dosing as has not seen Dr. Vasquez han - scheduledto see next week 05/20/23. Informed would call back after M provider reviews. [facility] Phone: [phone] 988-183702-28-2024 History of Present illness Narrative* Queta Zazueta, [facility] - 05/07/2023 3:00 PM EST Headache/epigastric pain/blurry [...] results Have you been seen here at [facility] in a previous ? N/a Recent ER visits or hospitalizations? No Bring blood sugar log or meter with you today? (Please bring them with you for every visit at [facility]) yes Traveled outside the country in the past 6 month no Any concerns that you would like me to mention to the provider today? No * Opal Heath, TRUCKLOAD OWNER OPERATOR-PORTRAIT PAINTER - 05/07/2023 3:00 PM EST REASON FOR [...] no complaints. She is being followed at [facility] due to Type 2 DM. See [...] TSH 1.05 04/01/2023 No results found for: PRAEGYAAJ39 No results found for: CREATININE , BUN [...] by e-mail to: or by fax to: [phone] Minutes spent pabf-vp-iyru; more than 50% of time spent counseling and/or coordinating care withadditional time for record review and communication to referring provider. SABINA Uribe 05/07/23 1556 documented in this encounterTriHealth [facility] Sam[facility]02-28-2024 History of Present illness Narrative* Danyell [...] care for you: OB Provider Family Doctor Last Pattern Grader Name: Sebastian Name: No primary care provider on file. Name:[facility] [place]: City: City: Last time seen: Last [...] demonstration Is there anything about your culture, buddhist, or personal beliefs we need to know about to care for you: Other none Primary Language spoken: Tuvaluan [22] Primary Language for learning: Tuvaluan Are you currently in a relationship where you are physically hurt, threatened or made to fee afraid? [] Yes [x] No Healthcare Administrative Assistant needed? [] Yes [x] No Marital status/Living [...] If yes, where: On thge following scale, rosebud the number, which describes your current level [...] pull her report weekly. She will see Opla Heath today, see her letter for details on her appt with Mia. This is her first . She had someinfertility work up and x3 attempts that were unsuccessful. This is a spontaneous . She was given thyroid medication but when she transferred to a new [facility] he did lab work and took her [...] face timewas 60 min. . * Shital Chen RD - 05/07/2023 1:00 PM EST Nutritional Assessment Form Date: 05/07/2023 KULDIP: Estimated Date of Delivery: 10/28/23 EGA: 15w1d Past Medical History: Diagnosis Date Diabetes mellitus ([facility]) Disease of thyroid gland Hypertension [...] Educational Level high school Family issues none Cultural/ethnic/scientology influences none Exercise approved by MD? Current Exercise program walking Who prepares the meal pt Who purchase food at your home? pt Equipment use for cooking/food storage has all Food Assistance(Ex.WIC, Food [place]) has apt Dining out Yes 1 time per month Appetite/Appetite changes increased Weight History stable Do you have cats at home? Feeding Plans Breast Feeding If you have cats, who cleans the litter box? Cravings/Aversions/Pica none currently Nutrition Assessment Worksheet: Week/Weekend Food Recall Breakfast High Amana Or cereal Or eggs Snack Lunch Grilled [...] Management Support Plan, patient chose to use [employer] to help manage her diabetes. Patient understands that we will follow up weekly with a phone call to review progress. Face to face time 40 minutes. documented in this encounterPorter Medical CenterPelikan Technologies02-28-2024 Instructions* Patient Instructions* Danyell Ortiz RN - [...] 4 HOURS WHILE AWAKE documented in this encounterOhioHealth Marion General HospitalCharter Communications [id number] Miscellaneous Notes* Telephone Encounter - Danyell Ortiz RN - 04/23/2023 12:23 PM EST Called pt due toher not coming to her appt today and she stated she had left a message that she needed to tammi due to not having transportation to her appt this morning. Her name given back to the schedulers to call and resched her. documented in this encounterOhioHealth Marion General HospitalLigandal02-14-2024 Telephone encounter Note* Telephone Encounter - Danyell Ortiz RN - 04/23/2023 12:23 PM EST Called pt due toher not coming to her appt today and she stated she had left a message that she needed to tammi due to not having transportation to her appt this morning. Her name given back to the schedulers to call and resched her. [facility] [id number] History of Present illness Narrative* Mario Conway [...] Hand fracture, right Type 2 diabetes mellitus ([facility]) Family History Problem Relation Name [...] nursing note reviewed. Exam conducted with a rn occupational health present. Vitals: Estimated body mass index is [...] of: Mario Conway DO documented in this encounterPutnam County Memorial [id number] Instructions* Patient Instructions* Gregorio Floyd MD - [...] hold levothyroxine for now. documented in this [id number] History of Present illness Narrative* Gregorio Floyd MD - 08/27/2021 11:00 AM EDT Images from the original note were not included. Reason for visit/chief complaint: thyroid disorder and DM Date: 08/27/2021 Referring Provider: Champ Laureano MD Primary Care Provider: Champ Laureano MD HPI: Ms. Ashley is a 25 [...] ALKPHOS, BILITOT No results found for: TSH, X8RGRUX, THYROIDAB No results found for: PTH, CALCIUM, JACQUES, PHOS Lab Results Component Value Date HGBA1C 7.7 (A) 08/27/2021 No results found for: LDLCALC, CHOL, HDL, TRIG, CHOLHDL No results found for: MICALBCREAT, [id number] No results found for: CPEPTIDE Assessment and [...] acanthosis nigricans indicate T2DM, but will get TUB69-Il and c-peptide/glucose given the young age of [...] Due for foot exam no 08/2021; to high school counselor on foot care next visit CV [...] Gregorio Floyd MD Endocrinology documented in this [id number] Hospital Discharge instructions Patient Education 08/25/2021 02:09:26 [...] Ask your health care provider for a bylb-yh-mipl plan for gradually returning to activities. Ask [...] your friends, family, a trusted colleague, and barrow worker about your injury, symptoms, and restrictions. Have them watch for any new or worsening problems. General instructions Take wtde-tzz-kfsdfnb and prescription medicines only as told by [...] 02/24/2006 Document Revised: 03/24/2019 Document Reviewed: 03/19/2019 [email or web address] Patient Education 2020 [employer]. 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 General instructions Take hvug-typ-quptrou and prescription medicines only as told by [...] 12/22/2007 Document Revised: 06/16/2019 Document Reviewed: 10/23/2016 [email or web address] Patient Education 2020 [employer] [facility] 08/24/2021 22:42:21 With:Champ Laureano Address: [address] [place], [place] [id number] Business (1) When:Within 3 Day(s) [facility]06-17-2022 Evaluation + Plan noteExtracted from: Title:ED Note [...] w/o Contrast CT Spine Cervical w/o Contrast [facility] Diagnosis Thyroid disorder- Primary Unspecified disorder of thyroid Hair loss Unspecified alopecia documented [facility] Diagnosis Type 2 diabetes mellitus with hyperglycemia, unspecified whether computer terminal operator insulin use (HCC)- Primary Thyroid disorder Unspecified disorder of thyroid Hair loss Unspecified alopecia documented [facility] Diagnosis Bleeding in early Unspecified hemorrhage in early , unspecified as to episode of care Follow-up exam Unspecified follow-up examination documented in this encounter [facility]* Diagnosis Type 2 diabetes mellitus in , second trimester- Primary Insulin pump in place Insulin pump status HTN in , chronic [facility] Diagnosis Type 2 diabetes mellitus in , second trimester- Primary Pre-existing type 2 diabetes mellitus during in first trimester [facility] Diagnosis Type 2 diabetes mellitus in , second trimester- Primary [facility] Diagnosis Type 2 diabetes mellitus in , second trimester- Primary [facility] Diagnosis Type 2 diabetes mellitus in , second trimester- Primary [facility] Diagnosis Type 2 diabetes mellitus in , second trimester- Primary [facility] Narrative No data available for this section [facility] filedocumented [facility] this encounter [facility] filedocumented in this encounter [facility] filedocumented in this encounter [facility] filedocumented in this encounter [facility] No data available for this section [facility] for referral (narrative)* Consultation (Routine) - Pending Review Specialty Diagnoses / Procedures Referred By Contac t Referred To Contact Maternal and Medicine Diagnoses Type 2 diabetes mellitus in , second trimester Insulin pump in place Opal Heath, GALLO-PORTRAIT PAINTER [address] [place] [address] Leana Burr MD [facility] [address], [address] [address] Referral ID Status Reason Start Date Expiration Date Visits Requested Visits Authorized [id number] Pending Review Specialty Services Required 05/07/2023 05/06/2024 1 1 [facility] for referral (narrative)* Consultation (Routine) - Pending Review Specialty Diagnoses / Procedures Referred By Contac t Referred To Contact Endocrinology Diagnoses Type 2 diabetes mellitus in , second trimester Mary Guidry APRN-[facility] [address], [address] [place] [id number] Leana Burr MD [facility] [address], [address] [address] Referral ID Status Reason Start Date Expiration Date Visits Requested Visits Authorized [id number] Pending Review Specialty Services Required 05/20/2023 05/19/2024 1 1 [facility] for visit Narrative* Consultation (Routine) - Pending Review Specialty Diagnoses / Procedures Referred By Contac t Referred To Contact Endocrinology Diagnoses Type 2 diabetes mellitus in , second trimester Mary Guidry APRN-[facility] [address], [address] [place] [address] Leana Burr MD [address], [address] [place] [address] Referral ID Status Reason Start Date Expiration Date Visits Requested Visits Authorized [id number] Pending Review Specialty Services Required 05/20/2023 05/19/2024 1 1 [facility] Summary Purpose Family History No Family History Records FoundNo Family History Records FoundNo Family History Records FoundNo Family History Records FoundNo Family History Records FoundNo Family History Records Found No data available for this section No data available for this section No Family History Records FoundNo Family History [...] FoundDocuments on File Type Date Recorded Patient Learning Design Specialist Expl anation Advance Directives and Livin g Will 05/02/2021 12:00 AM Reason for Referral Specialty Diagnoses / Procedures Referred By Contac t Referred To Contact Endocrinology Diagnoses Thyroid disorder Hair loss Champ Laureano MD [address] [facility] [place] [address] [place] [address] Gregorio Floyd MD [address] [place] [address] Referral ID Status Reason Start Date Expiration Date Visits Requested Visits Authorized [id number] Authorized Specialty Services Required/Pat ient's Best Interest 05/04/2021 05/04/2022 1 1 Specialty Diagnoses / Procedures Referred By Contac t Referred To Contact Maternal and Medicine Diagnoses Type 2 diabetes mellitus in , second trimester Procedures [facility] with or without consult Opal Heath, TRUCKLOAD OWNER OPERATOR-PORTRAIT PAINTER [address] [place] [address] [facility] Maternal Med [address] [place] [address] Referral ID Status Reason Start Date Expiration Date V isits Requested Visits Authorized [id number] Pending Review 05/08/2023 05/07/2024 1 1 Additional Source Comments INFORMATION SOURCE (unrecogn ized section and content) DATE CREATED AUTHOR [facility] DATE CREATED AUTHOR AUTHOR'S ORGANIZ ATION [facility] DATE CREATED AUTHOR AUTHOR'S ORGANIZ ATION 06/02/2022 [facility] DATE CREATED AUTHOR AUTHOR'S ORGANIZ ATION 08/12/2023 [facility] EPIC DATE CREATED AUTHOR AUTHOR'S ORGANIZ ATION 08/14/2023 [facility] DATE CREATED AUTHOR AUTHOR'S ORGANIZ ATION 08/21/2023 [facility] DATE CREATED AUTHOR AUTHOR'S ORGANIZ ATION 08/23/2023 [facility] Care Teams (unrecognized sec tion and content) Mash Preparatory Operator Relationship Specialty Start Date End Date Champ Laureano MD [address] [place] [address] PCP - General Family Medicine 05/02/21 Mash Preparatory Operator Relationship Specialty Start Date End Date Champ Laureano MD [address] [place] [id number] PCP - General Family Medicine 05/02/21 Mash Preparatory Operator Relationship Specialty Start Date End Date Champ Laureano MD [address] [place] [address] PCP - General 03/13/23 Reason for Visit (unrecogniz ed section and content) Reason Comments Thyroid Problem Specialty Diagnoses / Procedures Referred By Juan Antonio montemayor Referred To Contact Endocrinology Diagnoses Thyroid disorder Hair loss Champ Laureano MD [address] [place] [address] Gregorio Floyd MD [address] [place] [address] Referral ID Status Reason Start Date Expiration Date V isits Requested Visits Authorized [id number] Closed Specialty Services Required/Deanna ent's Best Interest 05/04/2021 05/04/2022 1 1 Reason Comments ER Follow-up Reason Comments [id number] Reason Comments Diabetes Specialty Diagnoses / Procedures Referred By Contac t Referred To Contact Maternal and Medicine Diagnoses Pre-existing type 2 diabetes mellitus during in first trimester Mario Conway R, DO [address] , [place] [address] [facility] Maternal Med [address] [place] [address] Referral ID Status Reason Start Date Expiration Date Visits Requested Visits Authorized [id number] Pending Review Specialty Services Required 04/15/2023 04/14/2024 [...] BE BASED ON THE PRIMARY CLINICAL RECORDS. [facility] [employer] [facility]. provides no warranty or guarantee of the accuracy or completeness of information in this document.
--- NOTE | 2023-08-27 11:06 | US_ITS ---
[address] [address] Patient Name: TESS CALVERT MRN: [facility]:[id number] date: 1995 Sex: F Assigned Patient Location: [facility] Current Patient Location: Accession/Order Number: [id number] Exam Date: 08/27/2023 11:10 Report Date: 08/27/2023 12:51 At the request of: PORSHA MOTA Procedure: US OB BPP w non-stress EXAMINATION: US OB BPP w non-stress HISTORY:Decreased movements in second trimester O36.8120 COMPARISON: Ultrasound OB biophysical 08/19/2023 TECHNIQUE: Ultrasound biophysical profile was performed in the radiology department. BREATHING MOVEMENTS: 2 GROSS BODY MOVEMENTS: 2 TONE: 2 QUALITATIVE AMNIOTIC FLUID VOLUME: 2 PRESENTATION: CEPHALIC HEART RATE: 154.29 bpm AMNIOTIC FLUID VOLUME: 17.25 cm GESTATIONAL AGE: 89 Day US/US OB BPP w non-stress IMPRESSION: Total biophysical profile score: 8 Electronically authenticated by: SEBLE BIGGS Date: 08/27/2023 12:51
[2023-08-27 12:06] VITALS: BP 99/52; PULSE 129
== END 2023-08-27 12:09 | disposition home or self-care (01) ==
LOC: US 07:15 → FBC 11:06
PROVIDERS: PCP Family Medicine; Visit Provider Obstetrics & Gynecology
DX: O36.8120 Decreased fetal movements, second trimester, not applicable or unspecified (principal); Z3A.31 31 weeks gestation of pregnancy
CPT/HCPCS: 76818

== ENCOUNTER 2023-09-02 06:59 | Outpatient (OUT) | payer OTHER, SELFPAY ==
--- OUTSIDE RECORDS SUMMARY | 2023-08-29 07:05 | XMS_ITS | CCD ---
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 [place] [address] Epithelial cells.squamous Auto (Urine sed) [#/Area] 5-8 Invalid Interpretation Code [facility] Comment on above: Performed By: #### 4 [id number] #### [facility] [address] [place] [address] Glucose Ql (U) 3+ mg/dL Abnormal Negative [facility] Comment on above: Performed By: #### 4 [id number] #### [facility] [address] [place] [address] Hemoglobin Auto test strip (U) [Mass/Vol] Negative Normal Negative [facility] Comment on above: Performed By: #### 4 [id number] #### [facility] [address] [place] [address] Ketones Auto test strip Ql (U) 1+ mg/dL Abnormal Negative [facility] Comment on above: Performed By: #### 4 [id number] #### [facility] [address] [place] [address] Leukocyte esterase Auto test strip Ql (U) 25 Huey/uL Normal Negative [facility] Comment on above: Performed By: #### 4 [id number] #### [facility] [address] [place] [address] Mucus Auto Ql (U) Trace Normal Negative [facility] Comment on above: Performed By: #### 4 [id number] #### [facility] [address] [place] [address] Nitrite Auto test strip Ql (U) Negative Normal Negative [facility] Comment on above: Performed By: #### 4 [id number] #### [facility] [address] [place] [address] pH (U) 6.0 [pH] Invalid Interpretation Code 5.0-9.0 [facility] Comment on above: Performed By: #### 4 [id number] #### [facility] [address] [place] [address] Protein Ql (U) 1+ mg/dL Abnormal Negative [facility] Comment on above: Performed By: #### 4 [id number] #### [facility] [address] [place] [address] RBC Ql (U) 0-3 Normal 0-3 [facility] Comment on above: Performed By: #### 4 [id number] #### [facility] [address] [place] [address] Specific gravity (U) [Rel density] 1.026 Invalid Interpretation Code 1.005-1.030 [facility] Comment on above: Performed By: #### 4 [id number] #### [facility] [address] [place] [address] Urobilinogen (U) [Mass/Vol] Negative Normal Negative [facility] Comment on above: Performed By: #### 4 [id number] #### [facility] [address] [place] [address] WBC Auto (Urine sed) [#/Area] 0-5 Normal 0-5 [facility] Comment on above: Performed By: #### 4 [id number] #### [facility] [address] [place] [address] Type of Urine collection method Clean Catch Normal [facility] Comment on above: Performed By: #### 4 [id number] #### [facility] [address] [place] [address] URINALYSISOrdered By: Fabian Bernal on 08-21-2023 Bilirubin [...] that meet specific criteria set forth by [facility]. Epithelial cells.squamous Auto (Urine sed) [#/Area] [...] sed) [#/Area] 0-5 graded/HPF Normal 0-5graded/HP F [facility] UA Auto SS URINALYSISOrdered By: Madison Mulligan on 08-21-2023 UA Spec Desc Clean Catch (08/21/23 9:39 PM) Normal [facility] UA Auto SS eGFRon 08-21-2023 eGFR 137 mL/min/1.73 m2 Normal >=59 [facility] Comment on above: Order Comment: Order added by Discern Expert. Performed By: #### 1 [id number] #### [facility] [address] [place] [address] C peptide [Mass/Vol]on 06-22 C PEPTIDE 5.70 ng/mL High 0.81-3.85 [facility] Comment on above: Result Comment: NOTE Test Performed By: [facility] [address] [place] [address] Biomedical Engineering Supervisor: Vaibhav Julian III, M.D. CLIA #[id number] Performed By: #### 2 345-7 #### [facility] ([id number]) [address] [place] [address], [address] [place] [address] GLUCOSEon 06-23-2023 Glucose [Mass/Vol] 168 mg/dL High 65-99 [facility] Comment on above: Performed By: #### 2 345-7 #### [facility] ([id number]) [address] [place] [address], [address] [place] [address] Glutamate decarboxylase 65 A b IA Qn (S)on 06-23-2023 LATOYA ANTIBODY <5.0 Normal 0.0-5.0 [facility] Comment on above: Result Comment: NOTE INTERPRETIVE INFORMATION: Glutamic Acid Decarboxylase Antibody A value greater than 5.0 IU/mL is considered positive for Glutamic Acid Decarboxylase Antibody (LATOYA Ab). This assay is intended for the semi-quantitative determination of the LATOYA Ab in human serum. Results should be interpreted within the context of clinical symptoms. Performed By: [employer] [address] [place] [address] Biomedical Engineering Supervisor: Mark Fitzpatrick MD, PhD CLIA Number: [id number] Performed By: #### 2 345-7 #### [facility] ([id number]) [address] [facility], [address] [place] [address] Reference Lab Test IDon 06-08 Insulinoma Ab 2 See Below Normal [facility] Comment on above: Result Comment: NOTE TEST [...] Clinical correlation is required. Test Performed By: [facility] [address] [place] [address] Biomedical Engineering Supervisor: Vaibhav Julian III, M.D. CLIA #[id number] Performed By: #### 2 345-7 #### [facility] ([id number]) [address] [place] [address], [address] [place] [address] CBC without diffon Hematocrit (Bld) [Volume fraction] 40.1 % [facility] Hemoglobin (Bld) [Mass/Vol] 12.8 g/dL [facility] Platelets (Bld) [#/Vol] 305 10*3/uL [facility] Rbc Mcv (Fl) By Automated Count 82.2 [facility] Free Cell DNAon 2023 Free Cell Dna no call [facility] HIV 1&2 AB/AG Screen (P24 AG )on 04-01-2023 HIV 1&2 AB/AG Negative [facility] Hemoglobin A1con 04-01-2023 HbA1c (Bld) [Mass fraction] 7.9 % Abnormal 4.0 - 6.0 % [facility] Interpretation and review of laboratory results Abnormal [facility] Hepatitis B surface antigeno n 04-01-2023 Hepatitis B Surface Antigen Negative [facility] No Panel Informationon 04-01 [facility] Rubella IGG immune statuson 04-01-2023 Rubella immune IgG immune [facility] Syphilis Total(Unknown Syphi lis Status)on 04-01-2023 Syphilis Non-Reactive [facility] TSHon 04-01-2023 Thyroid Stimulating (3Rd Generation) Hormone/ Tsh 1.051 [facility] TSH Qn 1.05 m[IU]/L [facility] Type and screenon 04-01-2023 Abo/Rh(D) Positive [facility] Urine Cultureon 04-01-2023 Bacteria identified Cx Nom (U) no growth [facility] Covid-19 PCR ([facility])on 05-09 SARS-CoV-2 (COVID-19) RNA EZEKIEL+probe Ql (Unsp spec) Not detected Normal NOT DETECTED [facility] Comment on above: Result Comment: This test is not yet approved or cleared by the [place] FDA. When there are no FDA-approved or cleared tests available, and other criteria are met, FDA can make tests available under an emergency access mechanism called an Emergency Use Authorization (EUA). The EUA for this test is supported by the Digestion Operator of Health and Human Service's (HHS's) declaration [...] consistent with SARS-CoV-2. Performed By: #### [facility] #### [facility] [address] [place] [address] Dr. Rosemary Ames GROUP A STREP CULTUREon 05-09 S. pyogenes Ag Ql (Unsp spec) Culture Observations: NEGATIVE FOR GROUP A STREPTOCOCCUS. Normal [facility] Comment on above: Performed By: #### T 7, LIPID, TSH, CMADM, BNP, CMP #### [facility] [address] [place] [address] Dr. Rosemary Ames INFLUENZA A AND B AGon 05-31 INFLUANEGH SEE BELOW Normal [facility] Comment on above: Result Comment: Nega tive for Flu A protein angiten. Infection due to Flu A cannot be ruled out. Flu A angiten in the sample may be below the detection limit of the test. Performed By: #### I NFLUAB #### [facility] [address] [place] [address] Dr. Rosemary Ames INFLUBNEGH SEE BELOW Normal [facility] Comment on above: Result Comment: Nega tive for Flu B protein antigen. Infection due to Flu B cannot be ruled out. Flu B antigen in the sample may be below the detection limit of the test. Performed By: #### I NFLUAB #### [facility] [address] [place] [address] Dr. Rosemary Ames INFLUENZA A AG Negative Normal NEGATIVE SEE COMMENT [facility] Comment on above: Performed By: #### I NFLUAB #### [facility] [address] [place] [address] Dr. Rosemary Ames INFLUENZA B AG Negative Normal NEGATIVE SEE COMMENT [facility] Comment on above: Performed By: #### I NFLUAB #### [facility] [address] [place] [address] Dr. Rosemary Ames STREPT SCREENon 05-31-2022 STREP SCREEN A Negative Normal NEGATIVE [facility] Comment on above: Performed By: #### E RUR #### [facility] [address] [place] [address] Dr. Rosemary Ames SYMPTOMATIC COVID-19 ANTIGEN on 05-31-2022 EUA Statement SEE BELOW Normal [facility] Comment on above: Result [...] 7, LIPID, TSH, CMADM, BNP, CMP #### [facility] [address] [address] [address] Rosemary Ames SARS-CoV-2 (COVID-19) RNA EZEKIEL+probe Ql (Unsp spec) Negative Normal NEGATIVE [facility] Comment on above: Performed By: #### T 7, LIPID, TSH, CMADM, BNP, CMP #### [facility] [address] [address] [address] Rosemary Ames ECHOCARDIO M/2D COMPLETEon 0 04-10-2022 ECHOCARDIO M/2D COMPLETE Patient: TESS ASHLEY Exam Date: 04/10/2022 : 1995 Gender:F Ordering : DR CHAMP LAUREANO . Admission #: [id number] Family : Order #: [id number] CLICK HERE TO VIEW EXAM ECHOCARDIOGRAM REPORT [...] M.D. on 04/10/2022 at 17:40 Normal [facility] CBC AUTO DIFFon 03-13-2022 BASO # 0.0 103/ul Normal 0.0-0.1 [facility] Comment on above: Performed By: #### A 1C #### [facility] [address] [address] [address] Rosemary Ames Basophils/100 WBC (Bld) 0.3 % Normal 0.2-2.0 [facility] Comment on above: Performed By: #### A 1C #### [facility] [address] [address] [address] Rosemary Ames EO # 0.0 103/ul Normal 0.0-0.7 [facility] Comment on above: Performed By: #### A 1C #### [facility] [address] [place] [address] Dr. Rosemary Ames Eosinophils/100 WBC (Bld) 0.5 % Critically low 0.9-7.0 [facility] Comment on above: Performed By: #### A 1C #### [facility] [address] [address] [address] Rosemary Ames Erythrocyte distribution width (RBC) [Ratio] 14.5 % Normal 11.0-15.0 [facility] Comment on above: Performed By: #### A 1C #### [facility] [address] [place] [address] Dr. Rosemary Ames Hematocrit (Bld) [Volume fraction] 39.7 % Normal 36.0-48.0 [facility] Comment on above: Performed By: #### A 1C #### [facility] [address] [address] [address] Rosemary Ames Hemoglobin (Bld) [Mass/Vol] 12.9 g/dL Normal 12.0-16.0 [facility] Comment on above: Performed By: #### A 1C #### [facility] [address] [place] [address] Dr. Rosemary Ames IG # 0.03 10e3/ul Normal 0.00-0.03 [facility] Comment on above: Performed By: #### A 1C #### [facility] [address] [address] [address] Rosemary Ames IG % 0.4 % Normal 0.0-0.5 [facility] Comment on above: Performed By: #### A 1C #### [facility] [address] [place] [address] Dr. Rosemary Ames LYMPH # 0.5 103/ul Critically low 1.2-3.8 [facility] Comment on above: Performed By: #### A 1C #### [facility] [address] [place] [address] Dr. Rosemary Ames Lymphocytes/100 WBC (Bld) 6.6 % Critically low 20.5-60.0 [facility] Comment on above: Performed By: #### A 1C #### [facility] [address] [place] [address] Dr. Rosemary Ames MANUAL DIFF REQ NO Normal [facility] Comment on above: Performed By: #### A 1C #### [facility] [address] [place] [address] Dr. Rosemary Ames MCH (RBC) [Entitic mass] 25.1 pg Critically low 26.7-34.0 [facility] Comment on above: Performed By: #### A 1C #### [facility] [address] [place] [address] Dr. Rosemary Ames MCHC (RBC) [Mass/Vol] 32.5 g/dL Normal 29.9-35.2 [facility] Comment on above: Performed By: #### A 1C #### [facility] [address] [place] [address] Dr. Rosemary Ames MCV (RBC) [Entitic vol] 77.2 fL Critically low 81.0-99.0 [facility] Comment on above: Performed By: #### A 1C #### [facility] [address] [place] [address] Dr. Rosemary Ames MONO # 0.7 103/ul Normal 0.3-0.8 [facility] Comment on above: Performed By: #### A 1C #### [facility] [address] [place] [address] Dr. Rosemary Ames Monocytes/100 WBC (Bld) 9.3 % Normal 1.7-12.0 [facility] Comment on above: Performed By: #### A 1C #### [facility] [address] [place] [address] Dr. Rosemary Ames NEUT # 6.2 103/ul Normal 1.4-6.5 [facility] Comment on above: Performed By: #### A 1C #### [facility] [address] [place] [address] Dr. Rosemary Ames Neutrophils/100 WBC (Bld) 82.9 % Critically high 43.0-75.0 [facility] Comment on above: Performed By: #### A 1C #### [facility] [address] [place] [address] Dr. Rosemary Ames Platelet mean volume (Bld) [Entitic vol] 9.8 fL Normal 9.5-13.5 [facility] Comment on above: Performed By: #### A 1C #### [facility] [address] [place] [address] Dr. Rosemary Ames PLT 246 103/ul Normal 150-450 [facility] Comment on above: Performed By: #### A 1C #### [facility] [address] [place] [address] Dr. Rosemary Ames RBC 5.14 106/ul Normal 4.20-5.40 [facility] Comment on above: Performed By: #### A 1C #### [facility] [address] [place] [address] Dr. Rosemary Ames WBC 7.4 103/ul Normal 4.0-11.0 [facility] Comment on above: Performed By: #### A 1C #### [facility] [address] [place] [address] Dr. Rosemary Ames Covid-19 PCR ([facility])on SARS-CoV-2 (COVID-19) RNA EZEKIEL+probe Ql (Unsp spec) Not detected Normal NOT DETECTED [facility] Comment on above: Result Comment: When [...] for this test is supported by the Digestion Operator of Health and Human Service's declaration that [...] used). Performed By: #### A 1C #### [facility] [address] [place] [address] Dr. Rosemary Ames D-DIMERon 03-13-2022 D-DIMER 0.26 mg/L FEU Normal <=0.59 [facility] Comment on above: Performed By: #### T 7, LIPID, TSH, CMADM, BNP, CMP #### [facility] [address] [address] [address] Rosemary Ames D-DIMER COMMENTS SEE BELOW Normal [facility] Comment on above: Result Comment: [...] 7, LIPID, TSH, CMADM, BNP, CMP #### [facility] [address] [place] [address] Dr. Rosemary Ames ER URINE PROFILEon Bilirubin Ql (U) Negative Normal NEGATIVE [facility] Comment on above: Performed By: #### E RUR #### [facility] [address] [place] [address] Dr. Rosemary Ames Clarity (U) CLEAR Normal CLEAR [facility] Comment on above: Performed By: #### E RUR #### [facility] [address] [place] [address] Dr. Rosemary Ames Color (U) LT. YELLOW Normal YELLOW [facility] Comment on above: Performed By: #### E RUR #### [facility] [address] [place] [address] Dr. Rosemary Ames ERUAHBraulio A micrscopic examination will be performed if indicated. Normal [facility] Comment on above: Performed By: #### E RUR #### [facility] [address] [place] [address] Dr. Rosemary Ames Glucose Ql (U) Negative Normal NEGATIVE [facility] Comment on above: Performed By: #### E RUR #### [facility] [address] [place] [address] Dr. Rosemary Ames Hemoglobin Ql (U) Negative Normal NEGATIVE [facility] Comment on above: Performed By: #### E RUR #### [facility] [address] [place] [address] Dr. Rosemary Ames Ketones Ql (U) Negative Normal NEGATIVE [facility] Comment on above: Performed By: #### E RUR #### [facility] [address] [place] [address] Dr. Rosemary Ames LEUKOCYTES Negative Normal NEGATIVE [facility] Comment on above: Performed By: #### E RUR #### [facility] [address] [place] [address] Dr. Rosemary Ames Nitrite Ql (U) Negative Normal NEGATIVE [facility] Comment on above: Performed By: #### E RUR #### [facility] [address] [place] [address] Dr. Rosemary Ames pH (U) 6.0 [pH] Normal 5-9 [facility] Comment on above: Performed By: #### E RUR #### [facility] [address] [place] [address] Dr. Rosemary Ames SPEC GRAVITY 1.015 Normal 1.005-<=1.02 5 [facility] Comment on above: Performed By: #### E RUR #### [facility] [address] [place] [address] Dr. Rosemary Ames UA PROTEIN Negative Normal NEGATIVE/ TRACE [facility] Comment on above: Performed By: #### E RUR #### [facility] [address] [place] [address] Dr. Rosemary Ames UR MICRO IND NOT INDICATED Normal [facility] Comment on above: Performed By: #### E RUR #### [facility] [address] [place] [address] Dr. Rosemary Ames Urobilinogen Qn (U) 0.2 {Vincent'U}/dL Normal 0.2 - 1. 0 [facility] Comment on above: Performed By: #### E RUR #### [facility] [address] [place] [address] Dr. Rosemary Ames INFLUENZA A AND B AGon 03-13 [facility] SEE BELOW Normal [facility] Comment on above: Result Comment: Nega tive for Flu A protein angiten. Infection due to Flu A cannot be ruled out. Flu A angiten in the sample may be below the detection limit of the test. Performed By: #### E RUR #### [facility] [address] [place] [address] Dr. Rosemary Ames INFLUBNEGH SEE BELOW Normal [facility] Comment on above: Result Comment: Nega tive for Flu B protein antigen. Infection due to Flu B cannot be ruled out. Flu B antigen in the sample may be below the detection limit of the test. Performed By: #### E RUR #### [facility] [address] [place] [address] Dr. Rosemary Ames INFLUENZA A AG Negative Normal NEGATIVE SEE COMMENT [facility] Comment on above: Performed By: #### E RUR #### [facility] [address] [place] [address] Dr. Rosemary Ames INFLUENZA B AG Negative Normal NEGATIVE SEE COMMENT [facility] Comment on above: Performed By: #### E RUR #### [facility] [address] [place] [address] Dr. Rosemary Ames LACTATE/LACTIC ACIDon 2022 Lactate [Moles/Vol] 2.0 mmol/L Critically high 0.4-1.9 [facility] Comment on above: Performed By: #### A 1C #### [facility] [address] [place] [address] Dr. Rosemary Ames LIPASEon 03-13-2022 Lipase [Catalytic activity/Vol] 79.0 U/L Normal 73.0-393.0 [facility] Comment on above: Performed By: #### A 1C #### [facility] [address] [place] [address] Dr. Rosemary Ames PREG HCG QUALon 03-13-2022 , QUAL Negative Normal NEGATIVE [facility] Comment on above: Performed By: #### A 1C #### [facility] [address] [place] [address] Dr. Rosemary Ames PROF 14(COMP METB)on 023 Albumin [Mass/Vol] 4.1 g/dL Normal 3.4-5.0 [facility] Comment on above: Performed By: #### A 1C #### [facility] [address] [place] [address] Dr. Rosemary Ames Albumin/Globulin [Mass ratio] 1.1 {ratio} Normal [facility] Comment on above: Performed By: #### A 1C #### [facility] [address] [place] [address] Dr. Rosemary Ames ALP [Catalytic activity/Vol] 77 U/L Normal 46-116 [facility] Comment on above: Performed By: #### A 1C #### [facility] [address] [place] [address] Dr. Rosemary Ames ALT [Catalytic activity/Vol] 149 U/L Critically high 14-59 [facility] Comment on above: Performed By: #### A 1C #### [facility] [address] [place] [address] Dr. Rosemary Ames Anion gap [Moles/Vol] 16.0 mmol/L Normal [facility] Comment on above: Performed By: #### A 1C #### [facility] [address] [address] [address] Rosemary Ames AST [Catalytic activity/Vol] 82 U/L Critically high 15-37 [facility] Comment on above: Performed By: #### A 1C #### [facility] [address] [address] [address] Rosemary Ames Bilirubin [Mass/Vol] 1.0 mg/dL Normal 0.2-1.0 [facility] Comment on above: Performed By: #### A 1C #### [facility] [address] [address] [address] Rosemary Ames Calcium [Mass/Vol] 9.1 mg/dL Normal 8.5-10.1 [facility] Comment on above: Performed By: #### A 1C #### [facility] [address] [address] [address] Rosemary Ames Chloride [Moles/Vol] 96 mmol/L Critically low 98-107 [facility] Comment on above: Performed By: #### A 1C #### [facility] [address] [place] [address] Dr. Rosemary Ames CO2 [Moles/Vol] 25.7 mmol/L Normal 21.0-32.0 [facility] Comment on above: Performed By: #### A 1C #### [facility] [address] [address] [address] Rosemary Ames Creatinine [Mass/Vol] 0.78 mg/dL Normal 0.55-1.02 [facility] Comment on above: Performed By: #### A 1C #### [facility] [address] [address] [address] Rosemary Ames EGFR-AF IRISH >60 Normal >=60 [facility] Comment on above: Performed By: #### A 1C #### [facility] [address] [place] [address] Dr. Rosemary Ames EGFR-NON AF IRISH >60 Normal >=60 [facility] Comment on above: Performed By: #### A 1C #### [facility] [address] [address] [address] Rosemary Ames Globulin (S) [Mass/Vol] 3.9 g/dL Normal [facility] Comment on above: Performed By: #### A 1C #### [facility] [address] [address] [address] Rosemary Ames Glucose [Mass/Vol] 190 mg/dL Critically high 74-106 [facility] Comment on above: Performed By: #### A 1C #### [facility] [address] [address] [address] Rosemary Ames Potassium [Moles/Vol] 3.7 mmol/L Normal 3.5-5.1 [facility] Comment on above: Performed By: #### A 1C #### [facility] [address] [place] [address] Dr. Rosemary Ames Protein [Mass/Vol] 8.0 g/dL Normal 6.4-8.2 [facility] Comment on above: Performed By: #### A 1C #### [facility] [address] [place] [address] Dr. Rosemary mAes Sodium [Moles/Vol] 134 mmol/L Critically low 136-145 [facility] Comment on above: Performed By: #### A 1C #### [facility] [address] [place] [address] Dr. Rosemary Ames Urea nitrogen [Mass/Vol] 9.0 mg/dL Normal 7.0-18.0 [facility] Comment on above: Performed By: #### A 1C #### [facility] [address] [place] [address] Dr. Rosemary Ames Urea nitrogen/Creatinine [Mass ratio] 11.5 mg/mg Normal [facility] Comment on above: Performed By: #### A 1C #### [facility] [address] [place] [address] Dr. Rosemary Ames TROPONIN, HIGH SENSITIVITYon 03-13-2022 HSTROP <4.0 Normal 4.0-51.3 [facility] Comment on above: Result Comment: CUT- OFF POINTS HAVE BEEN ESTABLISHED BASED ON THE FOURTH UNIVERSAL DEFINITIONS OF MYOCARDIAL INFARCTION. THE UPPER REFERENCE LIMIT (URL) OF TROPONIN, DEFINED THE 99TH PERCENTILE OF cTnI DISTRIBUTION IN A REFERENCE POPULATION, HAS BEEN CONFIRMED THE DECISION THRESHOLD FOR [place] DIAGNOSIS. Previously reported as: 3.9 On 03/13/2022 18:24 By DM9 Performed By: #### A 1C #### [facility] [address] [address] [address] Rosemary Ames TSHon 03-13-2022 TSH 0.440 uIU/mL Normal 0.358-3.740 [facility] Comment on above: Performed By: #### A 1C #### [facility] [address] [address] [address] Rosemary Ames XR CHEST 1 Von [...] TUAN LEWIS Date: 2022-03-13 18:59 Normal [facility] INSULINon 12-11-2021 Insulin 40.7 uIU/mL Critically high 2.6-24.9 [facility] Comment on above: Performed By: #### A 1C #### [facility] [address] [place] [address] Dr. Rosemary Ames BNPon 12-10-2021 NT PRO BNP <11.1 Normal <=450.0 [facility] Comment on above: Performed By: #### T 7, LIPID, TSH, CMADM, BNP, CMP #### [facility] [address] [place] [address] Dr. Rosemary Ames CARDIAC RY ADMITon 022 CK [Catalytic activity/Vol] 80 U/L Normal 26-192 [facility] Comment on above: Performed By: #### T 7, LIPID, TSH, CMADM, BNP, CMP #### [facility] [address] [place] [address] Dr. Rosemary Ames CK.MB [Mass/Vol] 0.56 ng/mL Normal <=3.60 [facility] Comment on above: Performed By: #### T 7, LIPID, TSH, CMADM, BNP, CMP #### [facility] [address] [place] [address] Dr. Rosemary Ames HSTROP 5.3 pg/mL Normal 4.0-51.3 [facility] Comment on above: Result Comment: CUT- OFF POINTS HAVE BEEN ESTABLISHED BASED ON THE FOURTH UNIVERSAL DEFINITIONS OF MYOCARDIAL INFARCTION. THE UPPER REFERENCE LIMIT (URL) OF TROPONIN, DEFINED THE 99TH PERCENTILE OF cTnI DISTRIBUTION IN A REFERENCE POPULATION, HAS BEEN CONFIRMED THE DECISION THRESHOLD FOR [place] DIAGNOSIS. Performed By: #### T 7, LIPID, TSH, CMADM, BNP, CMP #### [facility] [address] [place] [address] Dr. Rosemary Ames RADHA 26 ng/mL Normal 9-82 [facility] Comment on above: Performed By: #### T 7, LIPID, TSH, CMADM, BNP, CMP #### [facility] [address] [place] [address] Dr. Rosemary Ames CBC AUTO DIFFon 12-10-2021 BASO # 0.0 103/ul Normal 0.0-0.1 [facility] Comment on above: Performed By: #### E RUR #### [facility] [address] [place] [address] Dr. Rosemary Ames Basophils/100 WBC (Bld) 0.4 % Normal 0.2-2.0 [facility] Comment on above: Performed By: #### E RUR #### [facility] [address] [place] [address] Dr. Rosemary Ames EO # 0.1 103/ul Normal 0.0-0.7 [facility] Comment on above: Performed By: #### E RUR #### [facility] [address] [place] [address] Dr. Rosemary Ames Eosinophils/100 WBC (Bld) 1.0 % Normal 0.9-7.0 [facility] Comment on above: Performed By: #### E RUR #### [facility] [address] [place] [address] Dr. Rosemary Ames Erythrocyte distribution width (RBC) [Ratio] 13.7 % Normal 11.0-15.0 [facility] Comment on above: Performed By: #### E RUR #### [facility] [address] [place] [address] Dr. Rosemary Ames Hematocrit (Bld) [Volume fraction] 40.9 % Normal 36.0-48.0 [facility] Comment on above: Performed By: #### E RUR #### [facility] [address] [place] [address] Dr. Rosemary Ames Hemoglobin (Bld) [Mass/Vol] 13.0 g/dL Normal 12.0-16.0 [facility] Comment on above: Performed By: #### E RUR #### [facility] [address] [place] [address] Dr. Rosemary Ames IG # 0.03 10e3/ul Normal 0.00-0.03 [facility] Comment on above: Performed By: #### E RUR #### [facility] [address] [place] [address] Dr. Rosemary Ames IG % 0.4 % Normal 0.0-0.5 [facility] Comment on above: Performed By: #### E RUR #### [facility] [address] [place] [address] Dr. Rosemary Ames LYMPH # 2.4 103/ul Normal 1.2-3.8 [facility] Comment on above: Performed By: #### E RUR #### [facility] [address] [place] [address] Dr. Rosemary Ames Lymphocytes/100 WBC (Bld) 30.3 % Normal 20.5-60.0 [facility] Comment on above: Performed By: #### E RUR #### [facility] [address] [place] [address] Dr. Rosemary Ames MANUAL DIFF REQ NO Normal [facility] Comment on above: Performed By: #### E RUR #### [facility] [address] [place] [address] Dr. Rosemary Ames MCH (RBC) [Entitic mass] 25.8 pg Critically low 26.7-34.0 [facility] Comment on above: Performed By: #### E RUR #### [facility] [address] [place] [address] Dr. Rosemary Ames MCHC (RBC) [Mass/Vol] 31.8 g/dL Normal 29.9-35.2 [facility] Comment on above: Performed By: #### E RUR #### [facility] [address] [place] [address] Dr. Rosemary Ames MCV (RBC) [Entitic vol] 81.2 fL Normal 81.0-99.0 [facility] Comment on above: Performed By: #### E RUR #### [facility] [address] [place] [address] Dr. Rosemary Ames MONO # 0.5 103/ul Normal 0.3-0.8 [facility] Comment on above: Performed By: #### E RUR #### [facility] [address] [place] [address] Dr. Rosemary Ames Monocytes/100 WBC (Bld) 6.1 % Normal 1.7-12.0 [facility] Comment on above: Performed By: #### E RUR #### [facility] [address] [place] [address] Dr. Rosemary Ames NEUT # 5.0 103/ul Normal 1.4-6.5 [facility] Comment on above: Performed By: #### E RUR #### [facility] [address] [place] [address] Dr. Rosemary Ames Neutrophils/100 WBC (Bld) 61.8 % Normal 43.0-75.0 [facility] Comment on above: Performed By: #### E RUR #### [facility] [address] [place] [address] Dr. Rosemary Ames Platelet mean volume (Bld) [Entitic vol] 9.9 fL Normal 9.5-13.5 [facility] Comment on above: Performed By: #### E RUR #### [facility] [address] [place] [address] Dr. Rosemary Ames PLT 284 103/ul Normal 150-450 [facility] Comment on above: Performed By: #### E RUR #### [facility] [address] [place] [address] Dr. Rosemary Ames RBC 5.04 106/ul Normal 4.20-5.40 [facility] Comment on above: Performed By: #### E RUR #### [facility] [address] [place] [address] Dr. Rosemary Ames WBC 8.0 103/ul Normal 4.0-11.0 [facility] Comment on above: Performed By: #### E RUR #### [facility] [address] [place] [address] Dr. Rosemary Ames FREE THYROXINE INDEX T7on FTI 2.31 Normal 1.30-4.50 [facility] Comment on above: Performed By: #### T 7, LIPID, TSH, CMADM, BNP, CMP #### [facility] [address] [place] [address] Dr. Rosemary Ames T3U 30.0 % Normal 30.0-39.0 [facility] Comment on above: Performed By: #### T 7, LIPID, TSH, CMADM, BNP, CMP #### [facility] [address] [place] [address] Dr. Rosemary Ames T4 [Mass/Vol] 7.70 ug/dL Normal 4.80-13.90 [facility] Comment on above: Performed By: #### T 7, LIPID, TSH, CMADM, BNP, CMP #### [facility] [address] [place] [address] Dr. Rosemary Ames GLYCOHEMOGLOBIN A1Con 2021 ADA RECOMMENDATION SEE BELOW Normal [facility] Comment on above: Result Comment: ADA RECOMMENDED LIMIT 4.0 - 6.0 ADA THERAPEUTIC TARGET < 7.0 ACTION SUGGESTED > 7.0 Performed By: #### A 1C #### [facility] [address] [address] [address] Rosemary Ames Glucose [Mass/Vol] 243 mg/dL Normal [facility] Comment on above: Performed By: #### A 1C #### [facility] [address] [address] [address] Rosemary Ames HbA1c (Bld) [Mass fraction] 10.1 % Critically high 4.5-6.2 [facility] Comment on above: Performed By: #### A 1C #### [facility] [address] [address] [address] Rosemary Ames IRONon 12-10-2021 Iron [Mass/Vol] 29.0 ug/dL Critically low 50.0-170.0 [facility] Comment on above: Performed By: #### A 1C #### [facility] [address] [place] [address] Dr. Rosemary Ames LIPID PROFILEon 12-10-2021 CHOL-HDL RATIO NORM SEE BELOW Normal [facility] Comment on above: Result Comment: 3.3 - 4.4 LOW RISK 4.4 - 7.1 AVERAGE RISK 7.1 - 11.0 MODERATE RISK >11.0 HIGH RISK Performed By: #### T 7, LIPID, TSH, CMADM, BNP, CMP #### [facility] [address] [address] [address] Rosemary Ames Cholesterol [Mass/Vol] 184 mg/dL Normal <=200 [facility] Comment on above: Performed By: #### T 7, LIPID, TSH, CMADM, BNP, CMP #### [facility] [address] [address] [address] Rosemary Ames Cholesterol in HDL [Mass/Vol] 44 mg/dL Normal 40-60 [facility] Comment on above: Performed By: #### T 7, LIPID, TSH, CMADM, BNP, CMP #### [facility] [address] [address] [address] Rosemary Ames Cholesterol in LDL [Mass/Vol] 94.6 mg/dL Normal [facility] Comment on above: Performed By: #### T 7, LIPID, TSH, CMADM, BNP, CMP #### [facility] [address] [address] [address] Rosemary Ames Cholesterol.total/Chol esterol in HDL [Mass ratio] 4.2 {ratio} Normal [facility] Comment on above: Performed By: #### T 7, LIPID, TSH, CMADM, BNP, CMP #### [facility] [address] [address] [address] Rosemary Ames HDL NORMAL > or = 60 mg/dl - LOW CARDIOVASCULAR RISK <40 mg/dl - HIGH CARDIOVASCULAR RISK Normal [facility] Comment on above: Performed By: #### T 7, LIPID, TSH, CMADM, BNP, CMP #### [facility] [address] [address] [address] Rosemary Ames LDL CALC NORMAL SEE BELOW Normal [facility] Comment on above: Result Comment: <100 mg/dl OPTIMAL 100 - 129 mg/dl NEAR OR ABOVE OPTIMAL 130 - 159 mg/dl BORDERLINE HIGH 160 - 189 mg/dl HIGH >190 mg/dl VERY HIGH Performed By: #### T 7, LIPID, TSH, CMADM, BNP, CMP #### [facility] [address] [address] [address] Rosemary Ames Triglyceride [Mass/Vol] 227 mg/dL Critically high <=150 [facility] Comment on above: Performed By: #### T 7, LIPID, TSH, CMADM, BNP, CMP #### [facility] [address] [address] [address] Rosemary Ames VLDL CALC 45.4 mg/dL Normal [facility] Comment on above: Performed By: #### T 7, LIPID, TSH, CMADM, BNP, CMP #### [facility] [address] [address] [address] Rosemary Ames PROF 14(COMP METB)on 022 Albumin [Mass/Vol] 4.1 g/dL Normal 3.4-5.0 [facility] Comment on above: Performed By: #### T 7, LIPID, TSH, CMADM, BNP, CMP #### [facility] [address] [address] [address] Rosemary Ames Albumin/Globulin [Mass ratio] 1.1 {ratio} Normal [facility] Comment on above: Performed By: #### T 7, LIPID, TSH, CMADM, BNP, CMP #### [facility] [address] [address] [address] Rosemary Ames ALP [Catalytic activity/Vol] 83 U/L Normal 46-116 [facility] Comment on above: Performed By: #### T 7, LIPID, TSH, CMADM, BNP, CMP #### [facility] [address] [address] [address] Rosemary Ames ALT [Catalytic activity/Vol] 166 U/L Critically high 14-59 [facility] Comment on above: Performed By: #### T 7, LIPID, TSH, CMADM, BNP, CMP #### [facility] [address] [place] [address] Dr. Rosemary Ames Anion gap [Moles/Vol] 13.9 mmol/L Normal [facility] Comment on above: Performed By: #### T 7, LIPID, TSH, CMADM, BNP, CMP #### [facility] [address] [address] [address] Rosemary Ames AST [Catalytic activity/Vol] 97 U/L Critically high 15-37 [facility] Comment on above: Performed By: #### T 7, LIPID, TSH, CMADM, BNP, CMP #### [facility] [address] [address] [address] Rosemary Ames Bilirubin [Mass/Vol] 0.7 mg/dL Normal 0.2-1.0 [facility] Comment on above: Performed By: #### T 7, LIPID, TSH, CMADM, BNP, CMP #### [facility] [address] [address] [address] Rosemary Ames Calcium [Mass/Vol] 9.2 mg/dL Normal 8.5-10.1 [facility] Comment on above: Performed By: #### T 7, LIPID, TSH, CMADM, BNP, CMP #### [facility] [address] [place] [address] Dr. Rosemary Ames Chloride [Moles/Vol] 101 mmol/L Normal 98-107 [facility] Comment on above: Performed By: #### T 7, LIPID, TSH, CMADM, BNP, CMP #### [facility] [address] [address] [address] Rosemary Ames CO2 [Moles/Vol] 27.5 mmol/L Normal 21.0-32.0 [facility] Comment on above: Performed By: #### T 7, LIPID, TSH, CMADM, BNP, CMP #### [facility] [address] [address] [address] Rosemary Ames Creatinine [Mass/Vol] 0.65 mg/dL Normal 0.55-1.02 [facility] Comment on above: Performed By: #### T 7, LIPID, TSH, CMADM, BNP, CMP #### [facility] [address] [place] [address] Dr. Rosemary Ames EGFR-AF IRISH >60 Normal >=60 [facility] Comment on above: Performed By: #### T 7, LIPID, TSH, CMADM, BNP, CMP #### [facility] [address] [address] [address] Rosemary Ames EGFR-NON AF IRISH >60 Normal >=60 [facility] Comment on above: Performed By: #### T 7, LIPID, TSH, CMADM, BNP, CMP #### [facility] [address] [address] [address] Rosemary Ames Globulin (S) [Mass/Vol] 3.8 g/dL Normal [facility] Comment on above: Performed By: #### T 7, LIPID, TSH, CMADM, BNP, CMP #### [facility] [address] [address] [address] Rosemary Ames Glucose [Mass/Vol] 299 mg/dL Critically high 74-106 [facility] Comment on above: Performed By: #### T 7, LIPID, TSH, CMADM, BNP, CMP #### [facility] [address] [address] [address] Rosemary Ames Potassium [Moles/Vol] 4.4 mmol/L Normal 3.5-5.1 [facility] Comment on above: Performed By: #### T 7, LIPID, TSH, CMADM, BNP, CMP #### [facility] [address] [address] [address] Rosemary Ames Protein [Mass/Vol] 7.9 g/dL Normal 6.4-8.[address] [facility] Comment on above: Performed By: #### T 7, LIPID, TSH, CMADM, BNP, CMP #### [facility] [address] [address] [address] Rosemary Ames Sodium [Moles/Vol] 138 mmol/L Normal 136-[address] [facility] Comment on above: Performed By: #### T 7, LIPID, TSH, CMADM, BNP, CMP #### [facility] [address] [place] [address] Dr. Rosemary Ames Urea nitrogen [Mass/Vol] 8.0 mg/dL Normal 7.0-18.0 [facility] Comment on above: Performed By: #### T 7, LIPID, TSH, CMADM, BNP, CMP #### [facility] [address] [address] [address] Rosemary Ames Urea nitrogen/Creatinine [Mass ratio] 12.3 mg/mg Normal [facility] Comment on above: Performed By: #### T 7, LIPID, TSH, CMADM, BNP, CMP #### [facility] [address] [place] [address] Dr. Rosemary Ames TSHon 12-10-2021 TSH 0.921 uIU/mL Normal 0.358-3.740 [facility] Comment on above: Performed By: #### T 7, LIPID, TSH, CMADM, BNP, CMP #### [facility] [address] [place] [address] Dr. Rosemary Ames MG MAMM DIAGNOSTIC 3D JESICA CA Don 11-29-2021 MG MAMM DIAGNOSTIC 3D JESICA CAD Patient: TESS ASHELY Exam Date: 11/29/2021 : 1995 Gender:F Ordering : DR CHAMP LAUREANO . Admission #: [id number] Family : Order #: [id number] CLICK HERE TO VIEW EXAM RADIOLOGY REPORT [...] breast cancer at age 41. LOCATION: [facility] BREAST COMPOSITION: Heterogeneously dense,which may obscure [...] Biggs M.D. on 11/29/2021 at 09:59 Normal [facility] US BREAST RIGHT LIMITEDon US BREAST RIGHT LIMITED Patient: TESS ASHLEY Exam Date: 11/29/2021 : 1995 Gender:F Ordering : DR CHAMP LAUREANO . Admission #: [id number] Family : Order #: [id number] CLICK HERE TO VIEW EXAM RADIOLOGY REPORT [...] breast cancer at age 41. LOCATION: [facility] BREAST COMPOSITION: Heterogeneously dense,which may obscure [...] Biggs M.D. on 11/29/2021 at 09:59 Normal [facility] MRI BRAIN WO CONon 2 MRI BRAIN [...] by: SEBLE BIGGS Date: 2021-09-13 12:13 Normal [facility] Glucose (Bld) [Mass/Vol]on 0 08-27-2021 Glucose [Mass/Vol] 188 mg/dL [facility] Interpretation and review of laboratory results Abnormal [facility] HbA1c (Bld) [Mass fraction]o n 08-27-2021 Interpretation and review of laboratory results Abnormal [facility] POC Hemoglobin A1Con 022 HbA1c (Bld) [Mass fraction] 7.7 % Abnormal 4 - 6 % [facility] SEROLOGYOrdered By: Fabian echeverria on 08-24-2021 Beta hCG Ql Negative (08/24/21 11:29 PM) Normal [facility] Man Sero XR KNEE [...] SYLVESTER PRINGLE Date: 2021-08-15 16:18 Normal [facility] US KIDNEYS BLADDERon 022 US KIDNEYS [...] MAY PILLAI Date: 2021-06-13 10:16 Normal [facility] Testosterone Free and Total by LC-MS/MSon 02-04-2021 Sex Hormone Binding Globulin 11 nmol/L Low 30-135 [facility] Comment on above: Result Comment: REFE RENCE INTERVAL: Sex Hormone Binding Globulin Access complete set of age- and/or gender-specific reference intervals for this test in the [facility] Test Directory ([facility]). Testosterone, Free LC-MS/MS 9.1 pg/mL Critically high 0.8-7.[address] [facility] Comment on above: Result Comment: To [...] reference intervals for this test in the [facility] Test Directory ([employer]). This test was developed and its performance characteristics determined by [facility]. It has not been cleared or approved by the [place] Food and Drug Administration. This test was performed in a CLIA certified laboratory and is intended for clinical purposes. Performed By: [facility] [address] [place] [address] [employer] Supervisor: Kiersten Jones MD Testosterone, LC-MS/MS 35 ng/dL Normal 9-55 [facility] Comment on above: Result Comment: Oscar l Testosterone, Females 18 years and older Premenopausal 9-55 ng/dL Postmenopausal 5-32 ng/dL REFERENCE INTERVAL: Testosterone, LC-MS/MS Access complete set of age- and/or gender-specific reference intervals for this test in the [facility] Test Directory ([employer]). This test was developed and its performance characteristics determined by [facility]. It has not been cleared or approved by the [place] Food and Drug Administration. This test was performed in a CLIA certified laboratory and is intended for clinical purposes. Cortisol Daljit 01-31-2021 Cortisol AM 11.0 ug/dL Normal 6.2-19.[address] [facility] Comment on above: Performed By: #### C AKSHAT #### [facility] [address] [place] [id number] Vital Signs Date Time Vital Sign Value Performing Clinician Facility 08-22-2023 00:15-0400 Hourly Rounding [facility] Comment on above: Result Comment: Patient discharged off u nit in wheelchair. 08-22-2023 00:00-0400 Diastolic blood pressure 47 mm[Hg] [facility] 08-22-2023 00:00-0400 Heart rate 122 /min [facility] 08-22-2023 00:00-0400 Mean blood pressure 71 mm[Hg] [facility] 08-22-2023 00:00-0400 Systolic blood pressure 120 mm[Hg] [facility] 08-21-2023 23:45-0400 Blood Pressure Location [facility] 08-21-2023 23:45-0400 Diastolic blood pressure 52 mm[Hg] Sg Infante [facility] 08-21-2023 23:45-0400 Heart rate 119 /min [facility] 08-21-2023 23:45-0400 Mean blood pressure 78 mm[Hg] S[facility] 08-21-2023 23:45-0400 Respiratory rate 16 /min [facility] 08-21-2023 23:45-0400 Systolic blood pressure 130 mm[Hg] S[facility] Inf[facility] 08-21-2023 23:36-0400 Hourly Rounding [facility] Comment on above: Result Comment: Patient sitting in bed. Call light within reach. 08-21-2023 23:30-0400 Body temperature 97.88 [degF] [facility] 08-21-2023 23:30-0400 Diastolic blood pressure 69 mm[Hg] Sg [facility] 08-21-2023 23:30-0400 Heart rate 135 /min S[facility] 08-21-2023 23:30-0400 Mean blood pressure 82 mm[Hg] Sg [facility] 08-21-2023 23:30-0400 Respiratory rate 18 /min S[facility] 08-21-2023 23:30-0400 Systolic blood pressure 107 mm[Hg] Sg [facility] 08-21-2023 22:09-0400 Hourly Rounding [facility] Comment on above: Result Comment: Labetalol given for BP. 08-21-2023 21:30-0400 Body temperature 98.42 [degF] S[facility] 08-21-2023 20:20-0400 Diastolic blood pressure 91 mm[Hg] Tyler Melina [facility] 08-21-2023 20:20-0400 Heart rate 138 /min Tyler Melina [facility] 08-21-2023 20:20-0400 Mean blood pressure 110 mm[Hg] Tyler Melina [facility] 08-21-2023 20:20-0400 Respiratory rate 20 /min Tyler Melina [facility] 08-21-2023 20:20-0400 SaO2% (BldA) [Mass fraction] 97 % Tyler Melina [facility] 08-21-2023 20:20-0400 Systolic blood pressure 149 mm[Hg] Tyler Melina [facility] 08-21-2023 19:43-0400 Diastolic blood pressure 86 mm[Hg] Tyler Melina [facility] 08-21-2023 19:43-0400 Heart rate 141 /min Tyler Melina [facility] 08-21-2023 19:43-0400 Mean blood pressure 110 mm[Hg] Tyler Melina [facility] 08-21-2023 19:43-0400 Respiratory rate 18 /min Tyler Melina [facility] 08-21-2023 19:43-0400 SaO2% (BldA) [Mass fraction] 97 % Tyler Melina [facility] 08-21-2023 19:43-0400 Systolic blood pressure 158 mm[Hg] Tyler Melina [facility] 08-21-2023 19:22-0400 Body temperature 98.6 [degF] Tyler Melina [facility] 08-21-2023 19:22-0400 Diastolic blood pressure 103 mm[Hg] Tyler Melina [facility] 08-21-2023 19:22-0400 Heart rate 131 /min Tyler Melina [facility] 08-21-2023 19:22-0400 Mean blood pressure 118 mm[Hg] Tyler Melina [facility] 08-21-2023 19:22-0400 Respiratory rate 16 /min Tyler Melina [facility] 08-21-2023 19:22-0400 SaO2% (BldA) [Mass fraction] 97 % Tyler Melina [facility] 08-21-2023 19:22-0400 Systolic blood pressure 148 mm[Hg] Tyler Melina [facility] 08-21-2023 19:07-0400 Body temperature 99.14 [degF] Tyler Melina [facility] 08-21-2023 19:07-0400 Heart rate 140 /min Tyler Melina [facility] 08-21-2023 19:07-0400 Respiratory rate 22 /min Tyler Summers [facility] 05-07-2023 15:08-0500 Body height 152.4 cm Opal Heath SUPERVISOR [employer]-DATA SOFTWARE ENGINEER Work Phone: [facility] 05-07-2023 15:08-0500 Body mass index (BMI) [Ratio] 48.43 kg/m2 Opal Heath SUPERVISOR [employer]-DATA SOFTWARE ENGINEER Work Phone: [facility] 05-07-2023 15:08-0500 Body weight 112.49 kg Opal Heath SUPERVISOR [employer]-DATA SOFTWARE ENGINEER Work Phone: [facility] 05-07-2023 15:08-0500 Diastolic blood pressure 64 mm[Hg] Opal Heath SUPERVISOR [employer]-DATA SOFTWARE ENGINEER Work Phone: [facility] 05-07-2023 15:08-0500 Heart rate 111 /min Opal Heath SUPERVISOR [employer]-DATA SOFTWARE ENGINEER Work Phone: [facility] 05-07-2023 15:08-0500 Systolic blood pressure 136 mm[Hg] Opal Heath SUPERVISOR [employer]-DATA SOFTWARE ENGINEER Work Phone: [facility] 05-07-2023 14:16-0500 Body height 152.[address] [facility] 05-07-2023 14:16-0500 Body mass index (BMI) [Ratio] 48.63 kg/m2 [facility] 05-07-2023 14:16-0500 Body weight 112.[address] [facility] 04-17-2023 10:25-0500 Body mass index (BMI) [Ratio] 47.85 kg/m2 Mario Zoraida DO Work Phone: [facility] 04-17-2023 10:25-0500 Body weight 111.13 kg Mario Zoraida DO Work Phone: [facility] 04-17-2023 10:25-0500 Diastolic blood pressure 76 mm[Hg] Mario Zoraida DO Work Phone: [facility] 04-17-2023 10:25-0500 Systolic blood pressure 122 mm[Hg] Mario Conway DO Work Phone: [facility] 08-27-2021 11:09-0400 Body height 152.4 cm Gregorio Floyd MD Work Phone: [facility] 08-27-2021 11:09-0400 Body mass index (BMI) [Ratio] 46.68 kg/m2 Gregorio Floyd MD Work Phone: [facility] 08-27-2021 11:09-0400 Body weight 108.41 kg Gregorio Floyd MD Work Phone: [facility] 08-27-2021 11:09-0400 Diastolic blood pressure 86 mm[Hg] Gregorio Floyd MD Work Phone: [facility] 08-27-2021 11:09-0400 Heart rate 97 /min Gregorio Floyd MD Work Phone: [facility] 08-27-2021 11:09-0400 Systolic blood pressure 125 mm[Hg] Gregorio Floyd MD Work Phone: [facility] 08-25-2021 14:00-0400 Diastolic blood pressure 81 mm[Hg] Tyler Melina [facility] 08-25-2021 14:00-0400 Heart rate 85 /min Tyler Melina [facility] 08-25-2021 14:00-0400 Mean blood pressure 100 mm[Hg] Tyler Melina [facility] 08-25-2021 14:00-0400 Respiratory rate 16 /min Tyler Melina [facility] 08-25-2021 14:00-0400 SaO2% (BldA) [Mass fraction] 98 % Tyler Melina [facility] 08-25-2021 14:00-0400 Systolic blood pressure 138 mm[Hg] Tyler Melina [facility] 08-25-2021 01:00-0400 Diastolic blood pressure 85 mm[Hg] Tyler Melina [facility] 08-25-2021 01:00-0400 Heart rate 87 /min Tyler Melina [facility] 08-25-2021 01:00-0400 Respiratory rate 16 /min Tyler Melina [facility] 08-25-2021 01:00-0400 SaO2% (BldA) [Mass fraction] 98 % Tyler Melina [facility] 08-25-2021 01:00-0400 Systolic blood pressure 140 mm[Hg] Tyler Melina [facility] 08-25-2021 00:00-0400 Diastolic blood pressure 89 mm[Hg] Tyler Melina [facility] 08-25-2021 00:00-0400 Heart rate 95 /min Tyler Melina [facility] 08-25-2021 00:00-0400 SaO2% (BldA) [Mass fraction] 97 % Tyler Melina [facility] 08-25-2021 00:00-0400 Systolic blood pressure 149 mm[Hg] Tyler Melina [facility] 08-24-2021 22:50-0400 Body temperature 100.22 [degF] Tyler Melina [facility] Encounters Encounter Date Encounter Type Care Provider Facility Start: 08-27-2023 End: 08-27-2023 ambulatory MARIO CONWAY Not Available Start: 08-26-2023 End: 08-26-2023 ambulatory KRISH TERRY Not Available Start: 08-21-2023 End: 08-22-2023 ambulatory Sg Infante Facility:[facility] Start: 08-21-2023 End: 08-22-2023 OB Triage [facility] Start: 08-21-2023 End: 08-21-2023 Emergency department patient visit Tyler Erazo Melina [facility] Start: 08-20-2023 End: 08-20-2023 ambulatory [facility] Start: 08-13-2023 End: 08-13-2023 ambulatory [facility] Start: 08-11-2023 End: 08-11-2023 ambulatory MARIO ZORAIDA Not Available Start: 08-05-2023 End: 08-05-2023 ambulatory MARIO ZORAIDA Not Available Start: 07-29-2023 End: 07-29-2023 ambulatory [facility] Start: 07-28-2023 End: 07-28-2023 ambulatory MARIO ZORAIDA Not Available Start: 07-23-2023 End: 07-23-2023 ambulatory [facility] Start: 07-22-2023 End: 07-22-2023 ambulatory [facility] Start: 07-14-2023 End: 07-14-2023 ambulatory MARIO ZORAIDA Not Available Start: 07-10-2023 End: 07-10-2023 ambulatory [facility] Start: 06-30-2023 End: 06-30-2023 ambulatory MARIO ZORAIDA Not Available Start: 06-30-2023 End: 06-30-2023 ambulatory [facility] Start: 06-23-2023 End: 06-23-2023 ambulatory [facility] Start: 06-23-2023 End: 06-23-2023 ambulatory [facility] Start: 06-11-2023 End: 06-11-2023 ambulatory MARIO R ZORAIDA [facility] Start: 06-10-2023 End: 06-10-2023 ambulatory MARIO ZORAIDA Not Available Start: 06-09-2023 Orders Only Leana franco MD Work Phone: [facility] Start: 06-04-2023 Orders Only Leana franco MD Work Phone: [facility] Comment on above: Type 2 diabetes naz itus in , second trimester (Primary Dx) Start: 05-29-2023 End: 05-29-2023 ambulatory MARIO ZORAIDA Not Available Start: 05-29-2023 End: 05-29-2023 Office outpatient visit 25 minutes Leana Burr MD Work Phone: [facility] Comment on above: Type 2 diabetes naz itus in , second trimester (Primary Dx) Start: 05-29-2023 End: 05-29-2023 ambulatory [facility] Start: 05-20-2023 End: 05-20-2023 Orders Only Mary Guidry APRN-CAROLAM Work Phone: [facility] Comment on above: Type 2 diabetes naz itus in , second trimester (Primary Dx) Start: 05-20-2023 End: 05-20-2023 Office outpatient new 45 minutes Leana Burr MD Work Phone: [facility] Comment on above: Type 2 diabetes naz itus in , second trimester (Primary Dx) Start: 05-13-2023 Telephone encounter Joann pastrana RN Work Phone: [facility] Start: 05-12-2023 Telephone encounter Joann pastrana RN Work Phone: [facility] Start: 05-12-2023 End: 05-12-2023 ambulatory SHWETHA WALTON Not Available Start: 05-08-2023 Orders Only Queta Zazueta [facility] Comment on above: Type 2 diabetes naz itus in , second trimester (Primary Dx) Start: 05-07-2023 End: 05-07-2023 Office outpatient visit 25 minutes Opal Heath SUPERVISOR [employer]-DATA SOFTWARE ENGINEER Work Phone: [facility] Comment on above: Type 2 diabetes naz itus in , second trimester (Primary Dx); Insulin pump in place; HTN in , chronic Start: 05-07-2023 End: 05-07-[address] Work Phone: [facility] Comment on above: Type 2 diabetes naz itus in , second trimester (Primary Dx); Pre-existing type 2 diabetes mellitus during in first trimester Start: 04-23-2023 Chart abstracting Opal falk SUPERVISOR [employer]-DATA SOFTWARE ENGINEER Work Phone: [facility] Start: 04-23-2023 Telephone encounter Danyell Ortiz RN Ma ternal- [facility] at [facility] Start: 04-17-2023 End: 04-17-2023 Office outpatient visit 15 minutes Mario Zoraida DO Work Phone: [facility] Comment on above: Bleeding in early pr egnancy; Follow-up exam Start: 04-17-2023 End: 04-17-2023 ambulatory MARIO ZORAIDA Not Available Start: 04-14-2023 End: 04-14-2023 ambulatory MAIRO ZORAIDA Not Available Start: 03-14-2023 End: 03-14-2023 [...] Start: 08-27-2021 End: 08-27-2021 ambulatory CHAMP LAUREANO [facility] Start: 08-27-2021 End: 08-27-2021 Office outpatient new 60 minutes Champ Laureano MD Work Phone: [facility] Comment on above: Type 2 diabetes naz itus with hyperglycemia, unspecified whether penitentiary insulin use (HCC) (Primary Dx); Thyroid disorder; Hair loss Start: 08-24-2021 End: 08-25-2021 Emergency department patient visit Tyler Summers [facility] Start: 08-15-2021 End: 08-15-2021 ambulatory GREGORY FAN . Facility:[facility] Start: 06-13-2021 End: 06-14-[address] CHAMP LAUREANO . 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 Work Phone: Start: 04-01-2023 Bacteria identified in [...] malign ant neoplasm of cervix Pap Smear [facility] Start: 05-28-2024 Tobacco Screening Tobacco Screening [facility] Start: 05-07-2024 Adult BMI Screening Adult BMI Screen ing [facility] Start: 05-07-2024 Tobacco Screening Tobacco Screening [facility] Start: 05-07-2024 End: 05-07-2024 US MFM with or without consult US MFM with or without consult Imaging Routine Type 2 diabetes mellitus in , second trimester Expected: 05/07/2024 (Approximate), Expires: 05/07/2024 [facility] Work Phone: Comment on above: Expected: 05/07/2024 (Approximate), Expires: 05/07/2024 Start: 11-09-2023 Influenza vaccination Influenza Vacc ine [facility] Start: 06-11-2023 End: 06-11-2023 Patient encounter procedure 06/11/2023 1:00 PM EDT Appointment [facility] [address] [place] [phone] [facility] Start: 06-10-2023 End: 06-10-2023 Patient encounter procedure 06/10/2023 3:00 PM EDT Office Visit [facility] [address] [place] [address] Leana Burr MD [address] [place] [address] [facility] Start: 06-04-2023 End: 06-04-2023 Patient encounter procedure 06/04/2023 10:45 AM EDT Office Visit [facility] [address] [place] [phone] Leana Burr MD [address] [place] [address] [facility] Start: 05-29-2023 End: 05-29-2023 Patient encounter procedure 05/29/2023 10:45 AM EDT Office Visit [facility] [address] [place] [phone] Leana Burr MD [address] [place] [address] [facility] Start: 05-20-2023 End: 05-20-2023 Telemedicine consultation with patient 05/20/2023 8:00 AM EDT Telemedicine [facility] [address] [place] [phone] Leana Burr MD [address] [place] [address] [facility] Start: 05-12-2023 End: 05-12-2023 Patient encounter procedure 05/12/2023 8:30 AM EST Routine [facility] [address] [place] [address] Shwetha Walton PA [address] [place] [address] [facility] Start: 05-07-2023 End: 05-07-2023 Patient encounter procedure 05/07/2023 3:00 PM EST Office Visit [facility] [address] [place] [address] Opal Heath, SUPERVISOR [facility] [address] [place] [address] [facility] Start: 05-07-2023 End: 05-07-2023 ambulatory 05/07/2023 1:00 PM EST Support Visit [facility] [address] [place] [address] Shital Chen, RD [address] [place] [address] [facility] Start: 11-08-2022 Influenza vaccination Influenza Vacc ine [facility] Start: 11-27-2021 End: 11-27-2021 Patient encounter procedure 11/27/2021 Office Visit Endocrinology Gregorio Floyd MD [address] [place] [id number] [facility] Start: 11-27-2021 Hemoglobin A1c measurement A1C [facility] Start: 11-08-2021 Influenza vaccination Sequenti al Influenza Vaccine (Season Ended) [facility] Start: 06-25-2021 End: 06-25-2021 Patient encounter procedure 06/25/2021 Office Visit Endocrinology Gregorio Floyd MD [address] [place] [address] [facility] Start: 11-08-2020 Influenza vaccination Sequenti al Influenza Vaccine (#1) [facility] Start: 11-14-2015 Screening for malign ant neoplasm of cervix Pap Smear [facility] Start: 2013 DTaP,Tdap and Td Vaccines (1 - Tdap) DTaP,Tdap and Td Vaccines (1 - Tdap) [facility] Start: 2012 Adult BMI Follow Up Plan Adult BMI Follow Up Plan [facility] Start: 2012 Adult BMI Screening Adult BMI Screen ing [facility] Start: 2012 Diabetic foot examination Diabetic Foot Exam [facility] Start: 2012 Hepatitis C screening Hepatitis C Sc reening [facility] Start: 2009 HIV screening HIV Screening [facility] Start: 2006 Depression screening using PHQ-9 (Patient Health Questionnaire 9) score [facility] Start: 2006 Tobacco Screening Tobacco Screening [facility] Start: 2005 DTaP,Tdap and Td Vaccines (5 - Tdap) DTaP,Tdap and Td Vaccines (5 - Tdap) [facility] Start: 2004 Diabetic foot examination Foot Exam [facility] Start: 2004 Microalbumin measurement, urine, quantitative Urine Microalbumin [facility] Start: 2004 Ophthalmic examinati on and evaluation Ophthalmology Exam [facility] Start: 2000 Pneumococcal Vaccine : Ped or At-Risk (1 - PCV) Pneumococcal Vaccine: Ped or At-Risk (1 - PCV) [facility] Start: 11-14-1999 COVID-19 Vaccine (#1) COVID-19 Vacci ne (#1) [facility] Start: 11-14-1999 COVID-19 Vaccine (1) COVID-19 Vaccin e (1) [facility] Start: 1997 History and physical examination, annual for health maintenance Wellness Visit [facility] Start: 1994 Glaucoma screening Diabetic Op hthalmology Exam [facility] Start: 1994 Screening for malign ant neoplasm of cervix Pap Smear [facility] Start: 1994 Tetanus vaccination Tetanus: Every 1 0yrs [facility] Start: 1994 Urine screening for protein Urine Microalbumin [facility] End: 08-27-2022 C peptide [Mass/volume] in Serum or Plasma C-peptide Lab Routine Type 2 diabetes mellitus with hyperglycemia, unspecified whether penitentiary insulin use (HCC) 1 Occurrences starting 08/27/2021 until 08/27/2022 [facility] Comment on above: 1 Occurrences starti ng 08/27/2021 until 08/27/2022 End: 05-19-2024 C-peptide C-peptide Lab Routine Type 2 diabetes mellitus in , second trimester 1 Occurrences starting 05/20/2023 until 05/19/2024 [facility] Comment on above: 1 Occurrences starti ng 05/20/2023 until 05/19/2024 End: 05-19-2024 GAD65 Ab assay GAD65 Ab assay Lab Routine Type 2 diabetes mellitus in , second trimester 1 Occurrences starting 05/20/2023 [facility]19[facility] Comment on above: 1 Occurrences starti ng 05/20/2023 until 05/19/2024 End: 08-27-2022 Glucose [Mass/volume] in Serum or Plasma Glucose Lab Routine Type 2 diabetes mellitus with hyperglycemia, unspecified whether penitentiary insulin use (HCC) 1 Occurrences starting 08/27/2021 until 08/27/2022 [facility] Comment on above: 1 Occurrences starti ng 08/27/2021 until 08/27/2022 End: 05-19-2024 Glucose [Mass/volume] in Serum or Plasma Glucose Lab Routine Type 2 diabetes mellitus in , second trimester 1 Occurrences starting 05/20/2023 until 05/19/2024 [facility] Comment on above: 1 Occurrences starti ng 05/20/2023 until 05/19/2024 Hepatic function 200 0 panel - Serum or Plasma Hepatic function panel Lab Routine Type 2 diabetes mellitus with hyperglycemia, unspecified whether penitentiary insulin use (HCC) Ordered: 08/27/2021 [facility] Comment on above: Ordered: 08/27/2021 End: 05-19-2024 Insulinoma Associated Antibody 2 Insulinoma Associated Antibody 2 Lab Routine Type 2 diabetes mellitus in , second trimester 1 Occurrences starting 05/20/2023 until 05/19/2024 [facility] Comment on above: 1 Occurrences starti ng 05/20/2023 until 05/19/2024 End: 08-27-2022 Islet cell antibody measurement Anti-Islet Cell (GAD65) Antibody Lab Routine Type 2 diabetes mellitus with hyperglycemia, unspecified whether penitentiary insulin use (HCC) 1 Occurrences starting 08/27/2021 until 08/27/2022 [facility] Comment on above: 1 Occurrences starti ng 08/27/2021 until 08/27/2022 End: 08-27-2022 Lipid 1996 panel - Serum or Plasma Lipid Panel Lab Routine Type 2 diabetes mellitus with hyperglycemia, unspecified whether termite helper insulin use (HCC) 1 Occurrences starting 08/27/2021 until 08/27/2022 [facility] Comment on above: 1 Occurrences starti ng 08/27/2021 until 08/27/2022 Microalbumin measurement, urine, quantitative Microalbumin/Creatinine Ratio, UR Random Lab Routine Type 2 diabetes mellitus with hyperglycemia, unspecified whether termite helper insulin use (HCC) Ordered: 08/27/2021 [facility] Work Phone: Comment on above: Ordered: 08/27/2021 Payers Date Payer Category Payer Unknown [id number] 2019 Medicaid [id number] 1994 Unknown [id number] 2.16. 840.1.726338.3.579.2.903 1994 Unknown [id number] 2.16.84 0.1.361674.3.579.2.593 1994 Unknown [id number] 2.16.84 0.1.937462.3.579.2.593 1994 Unknown [id number] 2.16.84 0.1.157406.3.579.2.593 1994 Unknown [id number] 2.16.84 0.1.762730.3.579.2.593 1994 Unknown [id number] 2.16.84 0.1.933803.3.579.2.593 1994 Unknown [id number] 2.16.84 0.1.810905.3.579.2.593 1994 Unknown [id number] 2.16.84 0.1.463562.3.579.2.593 1994 Unknown [id number] 2.16.84 0.1.604576.3.579.2.593 1994 Unknown [id number] 2.16.84 0.1.998947.3.579.2.593 1994 Unknown [id number] 2.16.84 0.1.389953.3.579.2.593 1994 Unknown [id number] 2.16.84 0.1.407802.3.579.2.593 1994 Unknown [id number] 2.16.84 0.1.753440.3.579.2.593 1994 Unknown [id number] 2.16.84 0.1.122578.3.579.2.593 1994 Unknown [id number] 2.16.8 40.1.896565.3.579.2.1285 1994 Unknown [id number] 2.16.8 40.1.805072.3.579.2.128 1994 Unknown [id number] 2.16.8 40.1.992736.3.579.2.1285 1994 Unknown [id number] 2.16.8 40.1.374812.3.579.2.128 1994 Unknown [id number] 2.16.8 40.1.676746.3.579.2.1285 1994 Unknown [id number] 2.16.8 40.1.303993.3.579.2.1285 1994 Unknown [id number] 2.16.8 40.1.508978.3.579.2.1285 1994 Unknown [id number] 2.16.8 40.1.155134.3.579.2.1285 1994 Unknown [id number] 2.16.8 40.1.587374.3.579.2.1285 1994 Unknown [id number] 2.16.8 40.1.170457.3.579.2.1285 1994 Unknown [id number] 2.16.8 40.1.816531.3.579.2.1285 1994 Unknown [id number] 2.16.8 40.1.199416.3.579.2.1285 1994 Unknown [id number] 2.16.8 40.1.391185.3.579.2.1285 1994 Unknown [id number] 2.16.8 40.1.808631.3.579.2.1285 1994 Unknown [id number] 2.16.8 40.1.475606.3.579.2.1285 1994 Unknown [id number] 2.16.8 40.1.756674.3.579.2.1285 1994 Unknown [id number] 2.16.8 40.1.217285.3.579.2. 1994 Unknown [id number] 2.16.8 40.1.568784.3.579.2. 1994 Unknown [id number] 2.16.8 40.1.957893.3.579.2. 1994 Unknown [id number] 2.16.8 40.1.037844.3.579.2. 1994 Unknown [id number] 2.16.8 40.1.322587.3.579.2. 1994 Unknown [id number] 2.16.84 0.1.040507.3.579.2.1258 1994 Unknown [id number] 2.16.84 0.1.610790.3.579.2.1259 1994 Unknown [id number] 2.16.84 0.1.439225.3.579.2.9 1994 Unknown [id number] 2.16.84 0.1.887264.3.579.2.9 1994 Unknown [id number] 2.16.84 0.1.694117.3.579.2.1258 1994 Unknown [id number] 2.16.84 0.1.181338.3.579.2.1258 1994 Unknown [id number] 2.16.84 0.1.965118.3.579.2.1258 1994 Unknown [id number] 2.16.84 0.1.235769.3.579.2.1258 1994 Unknown [id number] 2.16.84 0.1.608661.3.579.2.1258 1994 Unknown [id number] 2.16.84 0.1.344279.3.579.2.1258 1994 Unknown [id number] 2.16.84 0.1.663134.3.579.2.1258 1994 Unknown [id number] 2.16.84 0.1.038986.3.579.2.9 1994 Unknown [id number] 2.16.84 0.1.918980.3.579.2.1258 1994 Unknown [id number] 2.16.840 .1.724728.3.579.2.1258 1994 Unknown [id number] 2.16.8 40.1.585621.3.579.2.727 1959 Medicaid [id number] 1959 Unknown [id number] 1959 Unknown [id number] 1959 Unknown [id number] Social History Date Type Detail Facility Start: 04-23-2023 Tobacco smoking status HIIS Tobacco smoking consumption unknown [facility] Start: 1995 Sex Assigned At Not on file O [facility] Start: 08-24-2021 Tobacco smoking status Never [facility] Start: 03-24-2023 End: 05-07-2023 Sex Assigned At Female [facility] Start: 08-17-2021 End: 08-27-2021 Exposure to SARS-CoV-2 (event) Not sure [facility] Start: 03-24-2023 End: 05-07-2023 Tobacco smoking status NHIS Never smoked tobacco [facility] Start: 04-17-2023 Alcohol intake Lifetime non-d jorge (finding) [facility] Start: 03-24-2023 End: 05-07-2023 History of Social function [facility] Start: 02-04-2023 [facility] Start: 1995 Sex Assigned At Female N [facility] Start: 02-27-2023 Gender identity Identifies as female gender (finding) [facility] Start: 05-07-2023 Tobacco use and exposure Smokeless tobacco non-user [facility] Start: 05-07-2023 End: 05-29-2023 Alcohol intake Ex-drinker (finding) [facility] Procedure Code Equipment Code Equipment Origin al Text Equipment Identifier Dates 1 each by Other route if needed [id number] Start: 03-11-2023 Use a new needle with each injection [id number] Start: 05-07-2023 Functional Status Date Assessment Result Facility 08-21-2023 Functional Status N/A [facility] 08-21-2023 Functional Status N/A [facility] 08-24-2021 Functional Status N/A [facility] Clinical Notes 08-24-2021 to 08-22-2023 Note Date & Type Note Facility 08-22-2023 Hospital Discharg e instructions Patient Education 08/21/2023 23:40:58 Vaginal Bleeding During , Third Trimester, Bjum-uh-Urga Vaginal Bleeding During , Third Trimester A [...] you with your normal activities. Medicines Take uqfo-zfk-mvmzafd and prescription medicines only as told by [...] provider. Document Revised: 11/16/2020 Document Reviewed: 11/16/2020 MPV Patient Education 2022 [employer]. 08/21/2023 23:40:58 Hypertension During , Nyyb-ew-Ewjj Hypertension During Hypertension is also called high [...] are best for you. General instructions Take ejzc-nuc-mrxnfjt and prescription medicines only as told by [...] provider. Document Revised: 11/16/2020 Document Reviewed: 11/16/2020 MPV Patient Education 2022 [employer]. 08/21/2023 23:40:58 Form - Movement Counts Movement [...] provider. Document Revised: 10/14/2019 Document Reviewed: 10/14/2019 Elsevier Patient Education 2022 [employer]. Follow Up Care 08/21/2023 21:25:46 With:Mario CONWAY Address: [address] , [place] [address]- Business (1) When:08/22/2023 Comments:Call Dr if fever>100.5 F, heavy bleedingCall for severe abdominal painCall physician for heavy vaginal bleedingCall physician if symptoms worsenReturn for contractions closer, longer, harderReturn for decreased movementReturn if ruptured membranes or vaginal bleeding [facility] 08-22-2023 Note The following Patien t Education Materials have been given to the patient: EducationMaterial [facility] 08-21-2023 Hospital Discharg e instructions Patient Education [...] your health care provider. General instructions Take hkad-tqr-hwjkqpo and prescription medicines only as told by [...] provider. Document Revised: 05/25/2020 Document Reviewed: 05/25/2020 MPV Patient Education 2022 [employer]. Follow Up Care 08/21/2023 19:05:36 With:Roosevelt Maldonado Address: [address] [place] [phone] Business (1) When:08/24/2023 21:04:34 With:Champ Laureano Address: [facility] [place] [address] Business (1) When:Within 3 Day(s) [facility] 08-21-2023 Evaluation + Plan note [...] Views Right XR Wrist 3+ Views Left [facility]03-21-2024 History of Present illness Narrative* Leana Burr MD - 05/29/2023 10:45 AM EDT [facility]- Diabetes Visit TELEMEDICINE VISIT: This is an audiovisual visit. This is done to assess the patient and to determine the best medical care. The patient was located at home in [place] and the provider was located at the medical office in [place]. The patient states they are not driving [...] of Delivery: 10/28/23. She is referred from [facility] who is managing along with us. She has had her diabetes education with [facility]. Please see media for full pump download. [...] within last year: none. Complications: History of W[place], CHF: none Medications none Last Lipid panel drawn due after History of HTN: no Medications none History of Diabetic Retinopathy: unknown. Last seen Early Childhood unknown History of peripheral neuropathy: none Medications [...] History: Diagnosis Date Anxiety Depression Diabetes mellitus ([facility]) Disease of thyroid gland Hypertension History reviewed. [...] order of 22% in those who have jrylqwbdmtR9L 8.5 and higher. Patient aware that maternal [...] shakes or bermudian yogurt if appetite lower inthe AM. Complications/ [...] to foot injury. : I agree with [facility] recommendations for care. NSTs twice weekly with weekly WEI starting at 32 weeks. Growth US every 4 weeks starting at 28 weeks. Tentative delivery by 39 weeks, but will defer to MFM. Follow up in 1 week. Following at least once per trimester with M as well. [facility] History of Present illness Narrative* Leana Burr MD - 05/20/2023 8:00 AM EDT [facility]- Diabetes Visit Tess Pfeiffer is [...] of Delivery: 10/28/23. She is referred from [facility] who is managing along with us. She has had her diabetes education with [facility]. Please see media for full pump download. [...] within last year: none. Complications: History of W[place], CHF: none Medications none Last Lipid panel drawn due after History of HTN: no Medications none History of Diabetic Retinopathy: unknown. Last seen Early Childhood unknown History of peripheral neuropathy: none Medications [...] History: Diagnosis Date Anxiety Depression Diabetes mellitus ([facility]) Disease of thyroid gland Hypertension [...] 10/28/23. She has had diabetes education with [facility]. We reviewed the following We have discussed the issue of insulin-dependent diabetes mellitus and the effect of in detail. There is an elevated risk of malformation of the order of 22% in those who have laepyewudsF8Y 8.5 and higher. Patient aware that maternal [...] considerably as her current automated basal is qijcwslrk70 units but her basal rates were recently [...] shakes or bermudian yogurt if appetite lower inthe AM. Complications/ [...] with MFM as well. LEANA BURR MD [facility] documented in [facility]Bar[facility] Hospital[facility]-2024 Miscellaneous Notes* Telephone Encounter - Joann Walsh [...] and denied any questions. documented in this encounterBerger Hospital03-05-2024 Telephone encounter Note* Telephone Encounter - [...] meals. Verbalized understanding and denied any questions. [facility] Work Phone: 1(592) 823-362103-04-2024 Miscellaneous Notes* Telephone Encounter - Joann Walsh RN - 05/12/2023 4:36 PM ESTSummary: [facility]FM Insulin Pump Questions Called and spoke [...] week 05/20/23. Informed would call back after [facility] provider reviews. documented in this encounterBerger Hospital03-04-2024 Telephone encounter Note* Telephone Encounter - Joann Walsh RN - 05/12/2023 4:36 PM EST Summary: MFM Insulin Pump Questions Called and [...] week 05/20/23. Informed would call back after [facility] provider reviews. [facility] Work Phone: 1(666) 933-801902-28-2024 History of Present illness Narrative* Queta Zazueta CMA - 05/07/2023 3:00 PM EST Headache/epigastric pain/blurry [...] results Have you been seen here at [facility] in a previous ? N/a Recent ER visits or hospitalizations? No Bring blood sugar log or meter with you today? (Please bring them with you for every visit at [facility]) yes Traveled outside the country in the past 6 month no Any concerns that you would like me to mention to the provider today? No * Opal Heath APRN-DATA SOFTWARE ENGINEER - 05/07/2023 3:00 PM EST REASON FOR [...] no complaints. She is being followed at [facility] due to Type 2 DM. See [...] TSH 1.05 04/01/2023 No results found for: [id number] No results found for: CREATININE , BUN [...] values to us weekly by e-mail to: [email or web address] or by fax to: [phone] 40 Minutes spent vpzg-om-wyab; more than 50% of time spent counseling and/or coordinating care withadditional time for record review and communication to referring provider. SABINA Uribe 05/07/23 1556 documented in this encounterBerger Hospital02-28-2024 History of Present illness Narrative* Danyell [...] care for you: OB Provider Family Doctor Acquisitions Analyst Name: Sebastian Name: No primary care provider [...] demonstration Is there anything about your culture, mandaeism, or personal beliefs we need to know about to care for you: Other none Primary Language spoken: [place]er [22] Primary Language for learning: [place] Are you currently in a relationship where you are physically hurt, threatened or made to fee afraid? [] Yes [x] No Dressing Machine Operator needed? [] Yes [x] No Marital status/Living [...] Past Medical History: Diagnosis Date Diabetes mellitus ([facility]) Disease of thyroid gland Hypertension [...] Educational Level high school Family issues none Cultural/ethnic/baptism influences none Exercise approved by MD? Current Exercise program walking Who prepares the meal pt Who purchase food at your home? pt Equipment use for cooking/food storage has all Food Assistance(Ex.WIC, Food [place]) has apt Dining out Yes 1 time per month Appetite/Appetite changes increased Weight History stable Do you have cats at home? Infant Feeding Plans Breast Feeding If you have cats, who cleans the litter box? Cravings/Aversions/Pica none currently Nutrition Assessment Worksheet: Week/Weekend Food Recall Breakfast [place] Or cereal Or eggs Snack Lunch Grilled cheese Or noodles Snack Dinner 2 Cheeseburger Sugar free pink lemonade Snack Snack Time Tess David Joselin Smith present for diet instruction per doctor order [...] face time 40 minutes. documented in this encounterBarre City HospitalYouHelp02-28-2024 Instructions* Patient Instructions* Danyell Ortiz RN - [...] 4 HOURS WHILE AWAKE documented in this encounterBerger Hospital02-14-2024 Miscellaneous Notes* Telephone Encounter - Danyell Ortiz RN - 04/23/2023 12:23 PM EST Called pt due toher not coming to her appt today and she stated she had left a message that she needed to tammi due to not having transportation to her appt this morning. Her name given back to the schedulers to call and resched her. documented in this encounterBerger Hospital02-14-2024 Telephone encounter Note* Telephone Encounter - Danyell Ortiz RN - 04/23/2023 12:23 PM EST Called pt due toher not coming to her appt today and she stated she had left a message that she needed to tammi due to not having transportation to her appt this morning. Her name given back to the schedulers to call and resched her. [facility] History of Present illness Narrative* Mairo Conway DO - 04/17/2023 10:30 AM EST [...] Hand fracture, right Type 2 diabetes mellitus ([facility]) Family History Problem Relation Name [...] nursing note reviewed. Exam conducted with a rigging engineer present. Vitals: Estimated body mass index [...] of: Mario Conway DO documented in this encounterTexas County Memorial [id number] Instructions* Patient Instructions* Gregorio Floyd MD - [...] hold levothyroxine for now. documented in this [id number] History of Present illness Narrative* Gregorio Floyd [...] ALKPHOS, BILITOT No results found for: TSH, M3JSQEF, THYROIDAB No results found for: PTH, CALCIUM, JACQUES, PHOS Lab Results Component Value Date HGBA1C 7.7 (A) 08/27/2021 No results found for: LDLCALC, CHOL, HDL, TRIG, CHOLHDL No results found for: MICALBCREAT, [id number] No results found for: CPEPTIDE Assessment and [...] acanthosis nigricans indicate T2DM, but will get ABR67-Xx and c-peptide/glucose given the young age of [...] Due for foot exam no 08/2021; to career development counselor on foot care next visit CV [...] Gregorio Floyd MD Endocrinology documented in this [id number] Hospital Discharge instructions Patient Education 08/25/2021 02:09:26 [...] homework. ?Working on the computer, using social DataPop, and texting. Avoid activities that could cause another head injury, such as playing sports, until your health care provider approves. Having another head injury, especially before the first one has healed, can bedangerous. Ask your health care provider when it is safe for you to return to your regular activities, including work or school. Ask your health care provider for a uoip-qm-nket plan for gradually returning to activities. Ask [...] your friends, family, a trusted colleague, and working supervisor about your injury, symptoms, and restrictions. Have them watch for any new or worsening problems. General instructions Take eeaw-ftg-kxrucym and prescription medicines only as told by [...] 02/24/2006 Document Revised: 03/24/2019 Document Reviewed: 03/19/2019 MPV Patient Education 2020 MPV Inc. 08/25/2021 02:09:26 Cervical Sprain Cervical Sprain [...] provider or physical therapist. General instructions Take wjvp-crf-lgxooyo and prescription medicines only as told by [...] 12/22/2007 Document Revised: 06/16/2019 Document Reviewed: 10/23/2016 MPV Patient Education 2020 MPV Inc. Follow Up Care 08/24/2021 22:42:21 With:Champ Laureano Address: [address] [place] [address]- Business (1) When:Within 3 Day(s) [facility]06-17-2022 Evaluation + Plan noteExtracted from: Title:ED Note Author:Tyler Summers DO Lynette. [...] w/o Contrast CT Spine Cervical w/o Contrast [facility]* Diagnosis Thyroid disorder- Primary Unspecified disorder of thyroid Hair loss Unspecified alopecia [facility]* Diagnosis Type 2 diabetes mellitus with hyperglycemia, unspecified whether termite helper insulin use (HCC)- Primary Thyroid disorder Unspecified disorder of thyroid Hair loss Unspecified alopecia [facility]* Diagnosis Bleeding in early Unspecified hemorrhage in early , unspecified as to episode of care Follow-up exam Unspecified follow-up examination documented in [facility]* Diagnosis Type 2 diabetes mellitus in , second trimester- Primary Insulin pump in place Insulin pump status HTN in , chronic [facility] Diagnosis Type 2 diabetes mellitus in , second trimester- Primary Pre-existing type 2 diabetes mellitus during in first trimester [facility]* Diagnosis Type 2 diabetes mellitus in , second trimester- Primary [facility]* Diagnosis Type 2 diabetes mellitus in , second trimester- Primary [facility] Diagnosis Type 2 diabetes mellitus in , second trimester- Primary [facility]* Diagnosis Type 2 diabetes mellitus in , second trimester- Primary documented in this [facility] Narrative No data available for this section [facility] CenterInstructionsNot on filedocumented in this encounter [facility] System[facility]ructionsNot on filedocumented in this encounter [facility] SystemInstructionsNot on filedocumented in this encounter [facility] SystemInstructionsNot on filedocumented in this encounter [facility] SystemInstructionsNot on filedocumented in this encounter [facility] SystemInstructionsNot on filedocumented in this encounter [facility] SystemProgress note No data available for this section [facility] CenterReason for referral (narrative)* Consultation (Routine) - Pending Review Specialty Diagnoses / Procedures Referred By Contac t Referred To Contact Maternal and Medicine Diagnoses Type 2 diabetes mellitus in , second trimester Insulin pump in place Opal Heath APRN-DATA SOFTWARE ENGINEER [address] [place] [address] Leana Burr MD [address], [place] [address] Referral ID Status Reason Start Date Expiration Date Visits Requested Visits Authorized [id number] Pending Review Specialty Services Required 05/07/2023 05/06/2024 1 1 [facility] HospitalRe[facility] for referral (narrative)* Consultation (Routine) - Pending Review Specialty Diagnoses / Procedures Referred By Contac t Referred To Contact Endocrinology Diagnoses Type 2 diabetes mellitus in , second trimester Mary Guidry, GALLO-CNM [address], [address] [place] [address] Leana Burr MD [address], [address] [address] Referral ID Status Reason Start Date Expiration Date Visits Requested Visits Authorized [id number] Pending Review Specialty Services Required 05/20/2023 05/19/2024 1 1 [facility] Narrative* Consultation (Routine) - Pending Review Specialty Diagnoses / Procedures Referred By Contac t Referred To Contact Endocrinology Diagnoses Type 2 diabetes mellitus in , second trimester Mary Guidry, GALLO-JHONATAN [address], [address] [place] [address] Leana Burr MD [address], [address] [address] Referral ID Status Reason Start Date Expiration Date Visits Requested Visits Authorized [id number] Pending Review Specialty Services Required 05/20/2023 05/19/2024 1 1 [facility] Summary Purpose Family History No Family [...] FoundDocuments on File Type Date Recorded 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 [address] Gregorio Floyd MD [address] [place] [address] Referral ID Status Reason Start Date Expiration Date Visits Requested Visits Authorized [id number] Authorized Specialty Services Required/Pat ient's Best Interest 05/04/2021 05/04/2022 1 1 Specialty Diagnoses / Procedures Referred By Contac t Referred To Contact Maternal and Medicine Diagnoses Type 2 diabetes mellitus in , second trimester Procedures US [facility] with or without consult Opal Heath, SUPERVISOR JOINERS-DATA SOFTWARE ENGINEER [address] [place] [address] [facility] Maternal Med [address] [place] [address] Referral ID Status Reason Start Date Expiration Date V isits Requested Visits Authorized [id number] Pending Review 05/08/2023 05/07/2024 1 1 Additional Source Comments INFORMATION SOURCE (unrecogn ized section and content) DATE CREATED AUTHOR 02/06/2021 [facility] DATE CREATED AUTHOR AUTHOR'S ORGANIZ ATION 08/27/2021 [facility] DATE CREATED AUTHOR AUTHOR'S ORGANIZ ATION 06/02/2022 [facility] DATE CREATED AUTHOR AUTHOR'S ORGANIZ ATION 08/14/2023 [facility] DATE CREATED AUTHOR AUTHOR'S ORGANIZ ATION 08/21/2023 [facility] DATE CREATED AUTHOR AUTHOR'S ORGANIZ ATION 08/23/2023 Maxwell Eric [facility] DATE CREATED AUTHOR AUTHOR'S ORGANIZ ATION 08/27/[address] [facility] dical Specialists [facility] DATE CREATED AUTHOR AUTHOR'S ORGANIZ ATION 08/27/2023 [facility] Care Teams (unrecognized sec tion and content) Risk Analyst Relationship Specialty Start Date End Date Champ Laureano MD [address] [facility] [place] [address] [place] [address] PCP - General Family Medicine 05/02/21 Risk Analyst Relationship Specialty Start Date End Date Champ Laureano MD [address] [place] [address] PCP - General Family Medicine 05/02/21 Risk Analyst Relationship Specialty Start Date End Date Champ Laureano MD [address] [place] [address] PCP - General 03/13/23 Reason for Visit (unrecogniz ed section and content) Reason Comments Thyroid Problem Specialty Diagnoses / Procedures Referred By Contac t Referred To Contact Endocrinology Diagnoses Thyroid disorder Hair loss Champ Laureano MD [address] [place] [address] Gregorio Floyd MD [address] [place] [address] Referral ID Status Reason Start Date Expiration Date V isits Requested Visits Authorized [id number] Closed Specialty Services Required/Deanna ent's Best Interest 05/04/2021 05/04/2022 1 1 Reason Comments ER Follow-up Reason Comments t2dm Reason Comments Diabetes Specialty Diagnoses / Procedures Referred By Contac t Referred To Contact Maternal and Medicine Diagnoses Pre-existing type 2 diabetes mellitus during in first trimester Mario Conway R, DO [address] , [place] [address] [facility]aternal [facility] [address] [place] [address] Referral ID Status Reason Start Date Expiration Date Visits Requested Visits Authorized [id number] Pending Review Specialty Services Required 04/15/2023 04/14/2024 [...] BE BASED ON THE PRIMARY CLINICAL RECORDS. [facility]. provides no warranty or guarantee of the accuracy or completeness of information in this document.
--- NOTE | 2023-09-02 | US_ITS ---
[place] [id number] Patient Name: TESS CALVERT MRN: [facility]:[id number] date: 1995 Sex: F Assigned Patient Location: [facility] Current Patient Location: Accession/Order Number: [id number] Exam Date: 09/02/2023 11:55 Report Date: 09/02/2023 13:06 At the request of: PORSHA MOTA Procedure: US OB BPP w non-stress EXAMINATION: US OB BPP w non-stress HISTORY: Decrease movements O39.8120 COMPARISON: No relevant comparison available. TECHNIQUE: Ultrasound biophysical profile was performed in the radiology department. FINDINGS: BREATHING MOVEMENTS: 0 GROSS BODY MOVEMENTS: 2 TONE: 2 QUALITATIVE AMNIOTIC FLUID VOLUME: 2 PRESENTATION: CEPHALIC HEART RATE: 140.63 bpm AMNIOTIC FLUID VOLUME: 18.0 cm GESTATIONAL AGE: 32 weeks 0 days US/US OB BPP w non-stress IMPRESSION: Total biophysical profile score: 6 Electronically authenticated by: MAY PILLAI Date: 09/02/2023 13:06
--- OUTSIDE RECORDS SUMMARY | 2023-09-02 07:03 | XMS_ITS ---
Patient Summarization (C-CDA 2.1 CCD) Created on: September 02, 2023 TESS MOORE : 1995 Sex: Female Author Organization Sample organization Care Team Providers Care Park Activities Coordinator Name Role Phone Ray FLOWESR, Champ Primary Care Provider [phone] Champ Laureano Primary Care Physician [phone] Champ Laureano MD Primary Care Provider [phone] CHAMP LAUREANO Admitting Unavailable COLLINSYCHAMP Primary Care Unavailable CHAMP LAUREANO Referring Unavailable [...] OAKES Attending Unavailable HOY ., DR OAKES Admkamron Unavailable MITA .GREGORY Attending Unavailable MITA ., GREGORY Admitting Unavailable GRECHNY .MARINA Consulting Unavailabl e HOY ., DR OAKES Primary Care Unavailable SYLVESTER PRINGLE Consulting Unavailable GREBRANNON .MARINA Consulting Unavailchad e HAY ., DR [...] Unavailable HOY ., DR OAKES Admitting Unavailable MOHALL, DR MAY Silverman Consulting Unavailable CRYSTAL PENG Consulting Unavailable HOY ., DR OAKES Primary Care Unavailable CRYSTAL PENG Attending Unavailable CRYSTAL PENG Admitting Unavailable Champ Laureano MD Primary Care Provider Unavailable Primary Care Provider Unavailabl LEANA Haynes [...] Unavailable GLENDA CAM Attending Unavailable GLENDA CAM P Referring Unavailable SG ROBERTSON Attending Unavailable ZORAIDA, MARIO R Referring Unavailable Angelica Navarrete Attending Unavailable yTler Summers Attending Unavailable Tyler Summers Attending Unavailable Sg Infante Admitting Unavailable Sg Infante Attending Unavailable ZORAIDA, MARIO Attending Unavailable ZORAIDA, MARIO Attending Unavailable RAUL SHWETHA Attending Unavailable ZORAIDA, MARIO Attending Unavailable ZORAIDA, MARIO Attending Unavailable ZORAIDA, MARIO Attending Unavailable ZORAIDA, MARIO Attending Unavailable SHWETHA WALTON Attending Unavailable ZORAIDA, MARIO Attending Unavailable ZORAIDA, MARIO Attending Unavailable KRISH TERRY Attending Unavailable KRISH TERRY Referring Unavailable ZORAIDA, MARIO Attending Unavailable Sg Infante Attending Unavailable Sg Infante Admitting Unavailable Encounters Encounter Date Encounter Type Care Provider Facility Start: 08-27-2023 End: 08-27-2023 ambulatory MARIO ZORAIDA Not Available Start: 08-26-2023 End: 08-26-2023 ambulatory KRISH TERRY Not Available Start: 08-21-2023 End: 08-22-2023 ambulatory Sg Infante Facility:[facility] Start: 08-21-2023 End: 08-22-[address] [facility] Start: 08-21-2023 End: 08-21-2023 Emergency department patient visit Tyler Summers [facility] Start: 08-20-2023 End: 08-20-2023 ambulatory SG OLIVERA [facility] Start: 08-13-2023 End: 08-13-2023 ambulatory [facility] Start: 08-11-2023 End: 08-11-2023 ambulatory MARIO ZORAIDA Not Available Start: 08-05-2023 End: 08-05-2023 ambulatory MARIO ZORAIDA Not Available Start: 07-29-2023 End: 07-29-2023 ambulatory [facility] Start: 07-28-2023 End: 07-28-2023 ambulatory MARIO ZORAIDA Not Available Start: 07-23-2023 End: 07-23-2023 ambulatory [facility] Start: 07-22-2023 End: 07-22-2023 ambulatory GLENDA CAM [facility] Start: 07-14-2023 End: 07-14-2023 ambulatory MARIO ZORAIDA Not Available Start: 07-10-2023 End: 07-10-2023 ambulatory LEANA [facility] Start: 06-30-2023 End: 06-30-2023 ambulatory MARIO ZORAIDA Not Available Start: 06-30-2023 End: 06-30-2023 ambulatory LEANA [facility] Start: 06-23-2023 End: 06[facility]: 06-23-2023 End: 06-23-2023 ambulatory LEANA [facility] Start: 06-11-2023 End: 06-11[facility]23 [facility]: 06-10-2023 End: 06-10-2023 ambulatory MARIO ZORAIDA Not Available Start: 06-09-2023 Orders Only Leana franco MD Work Phone: [facility] Start: 06-04-2023 Orders Only Leana franco MD Work Phone: [facility] Comment on above: Type 2 diabetes naz itus in , second trimester (Primary Dx) Start: 05-29-2023 End: 05-29-2023 ambulatory MARIO ZORAIDA Not Available Start: 05-29-2023 End: 05-29-2023 Office outpatient visit 25 minutes Leana Burr MD Work Phone: [facility] Comment on above: Type 2 diabetes naz itus in , second trimester (Primary Dx) Start: 05-29-2023 End: 05-29-2023 ambulatory LEANA [facility] Start: 05-20-2023 End: 05-20-2023 Orders Only Mary Guidry ANODE ADJUSTER-CNM Work Phone: [facility] Comment on above: Type 2 diabetes naz itus in , second trimester (Primary Dx) Start: 05-20-2023 End: 05-20-2023 Office outpatient new 45 minutes Leana Burr MD Work Phone: [facility] Comment on above: Type 2 diabetes naz itus in , second trimester (Primary Dx) Start: 05-13-2023 Telephone encounter Joann pastrana RN Work Phone: [facility] Start: 05-12-2023 Telephone encounter Joann pastrana RN Work Phone: [facility] Start: 05-12-2023 End: 05-12-2023 ambulatory SHWETHA WALTON Not Available Start: 05-08-2023 Orders Only Queta Zazueta [facility] Comment on above: Type 2 diabetes naz itus in , second trimester (Primary Dx) Start: 05-07-2023 End: 05-07-2023 Office outpatient visit 25 minutes Opal Heath ANODE ADJUSTER-ASSISTANT MERCHANDISE MANAGER Work Phone: [facility] Comment on above: Type 2 diabetes naz itus in , second trimester (Primary Dx); Insulin pump in place; HTN in , chronic Start: 05-07-2023 End: 05-07-[address] Work Phone: [facility] Comment on above: Type 2 diabetes naz itus in , second trimester (Primary Dx); Pre-existing type 2 diabetes mellitus during in first trimester Start: 04-23-2023 Chart abstracting Opal falk ANODE ADJUSTER-ASSISTANT MERCHANDISE MANAGER Work Phone: [facility] Start: 04-23-2023 Telephone encounter Danyell Ortiz RN [facility] Start: 04-17-2023 End: 04-17-2023 Office outpatient visit 15 minutes Mario Conway DO Work Phone: [facility] Comment on above: Bleeding in early pr egnancy; Follow-up exam Start: 04-17-2023 End: 04-17-2023 ambulatory MARIO OZRAIDA Not Available Start: 04-14-2023 End: 04-14-2023 ambulatory [...] End: 08-27-2021 ambulatory CHAMP LAUREANO [facility] Start: 08-27-2021 End: 08-27-2021 Office outpatient new 60 minutes Champ Laureano MD Work Phone: [facility] Comment on above: Type 2 diabetes naz itus with hyperglycemia, unspecified whether web editor insulin use (HCC) (Primary Dx); Thyroid disorder; Hair loss Start: 08-24-2021 End: 08-25-2021 Emergency department patient visit Tyler Summers [facility] Start: 08-15-2021 End: 08-15-2021 ambulatory GREGORY FAN . Facility:[facility] Start: 06-13-2021 End: 06-14-[address] CHAMP LAUREANO . Facility:[facility] Start: 05-04-2021 Transcribe Orders Champ Laureano MD Work Phone: [facility] Comment on above: Thyroid disorder (Pr imary Dx); Hair loss Medical Equipment Procedure Code Equipment Code Equipment Origin al Text Equipment Identifier Dates 1 each by Other route if needed [id number] Start: 03-11-2023 Use a new needle with each injection [id number] Start: 05-07-2023 Medications Current Medications Medication Drug Class(es) Dates Sig (Normalized) Sig (Original) acetaminophen 325 mg / HYDROcodone bitartrate 5 mg oral tablet (3 sources) Opioid Agonist Start: 07-03-2020 [place] 325 mg-5 mg oral tablet 1 tab(s), [...] Discontinued (Reorder) Payers Date Payer Category Payer Unknown [id number] 2019 Medicaid [id number] 1994 Unknown [id number] 2.16. 840.1.607893.3.579.2.903 1994 Unknown [id number] 2.16.84 0.1.252039.3.579.2.593 1994 Unknown [id number] 2.16.84 0.1.259702.3.579.2.593 1994 Unknown [id number] 2.16.84 0.1.841065.3.579.2.593 1994 Unknown [id number] 2.16.84 0.1.948713.3.579.2.593 1994 Unknown [id number] 2.16.84 0.1.318598.3.579.2.593 1994 Unknown [id number] 2.16.84 0.1.180472.3.579.2.593 1994 Unknown [id number] 2.16.84 0.1.083003.3.579.2.593 1994 Unknown [id number] 2.16.84 0.1.347155.3.579.2.593 1994 Unknown [id number] 2.16.84 0.1.103117.3.579.2.593 1994 Unknown [id number] 2.16.84 0.1.859040.3.579.2.593 1994 Unknown [id number] 2.16.84 0.1.289687.3.579.2.593 1994 Unknown [id number] 2.16.84 0.1.814725.3.579.2.593 1994 Unknown [id number] 2.16.84 0.1.621432.3.579.2.593 1994 Unknown [id number] 2.16.8 40.1.980089.3.579.2.128 1994 Unknown [id number] 2.16.8 40.1.260609.3.579.2.1285 1994 Unknown [id number] 2.16.8 40.1.316871.3.579.2.128 1994 Unknown [id number] 2.16.8 40.1.374434.3.579.2.1285 1994 Unknown [id number] 2.16.8 40.1.302054.3.579.2.1285 1994 Unknown [id number] 2.16.8 40.1.473082.3.579.2.1285 1994 Unknown [id number] 2.16.8 40.1.239540.3.579.2.128 1994 Unknown [id number] 2.16.8 40.1.286677.3.579.2.1286 1994 Unknown [id number] 2.16.8 40.1.457019.3.579.2.1285 1994 Unknown [id number] 2.16.8 40.1.099455.3.579.2.1285 1994 Unknown [id number] 2.16.8 40.1.731525.3.579.2.1285 1994 Unknown [id number] 2.16.8 40.1.635016.3.579.2.1285 1994 Unknown [id number] 2.16.8 40.1.916442.3.579.2.1285 1994 Unknown [id number] 2.16.8 40.1.188846.3.579.2.1285 1994 Unknown [id number] 2.16.8 40.1.636730.3.579.2.1285 1994 Unknown [id number] 2.16.8 40.1.683043.3.579.2.1285 1994 Unknown [id number] 2.16.8 40.1.579544.3.579.2.7 1994 Unknown [id number] 2.16.8 40.1.077742.3.579.2.7 1994 Unknown [id number] 2.16.8 40.1.479639.3.579.2.727 1994 Unknown [id number] 2.16.8 40.1.320398.3.579.2.727 1994 Unknown [id number] 2.16.8 40.1.897506.3.579.2.727 1994 Unknown [id number] 2.16.84 0.1.851691.3.579.2.1258 1994 Unknown [id number] 2.16.84 0.1.201775.3.579.2.1258 1994 Unknown [id number] 2.16.84 0.1.312053.3.579.2.1259 1994 Unknown [id number] 2.16.84 0.1.288305.3.579.2.1258 1994 Unknown [id number] 2.16.84 0.1.044022.3.579.2.9 1994 Unknown [id number] 2.16.84 0.1.338554.3.579.2.1258 1994 Unknown [id number] 2.16.84 0.1.025580.3.579.2.1258 1994 Unknown [id number] 2.16.84 0.1.783718.3.579.2.1258 1994 Unknown [id number] 2.16.84 0.1.546986.3.579.2.1258 1994 Unknown [id number] 2.16.84 0.1.289031.3.579.2.1258 1994 Unknown [id number] 2.16.84 0.1.215699.3.579.2.1258 1994 Unknown [id number] 2.16.84 0.1.771185.3.579.2.1258 1994 Unknown [id number] 2.16.84 0.1.781049.3.579.2.1258 1994 Unknown [id number] 2.16.840 .1.460115.3.579.2.1258 1994 Unknown [id number] 2.16.8 40.1.552023.3.579.2.727 1960 Medicaid [id number] 1959 Unknown [id number] 1959 Unknown [id number] 1959 Unknown [id number] Plan of Treatment Date Care Activity Detail Author Start: 05-11-2026 Screening for malign ant neoplasm of cervix Pap Smear [facility] Start: 05-28-2024 Tobacco Screening Tobacco Screening [facility] Start: 05-07-2024 Adult BMI Screening Adult BMI Screen ing [facility] Start: 05-07-2024 Tobacco Screening Tobacco Screening [facility] Start: 05-07-2024 End: 05-07-2024 US MFM with or without consult US MFM with or without consult Imaging Routine Type 2 diabetes mellitus in , second trimester Expected: 05/07/2024 (Approximate), Expires: 05/07/2024 [facility] Work Phone: Comment on above: Expected: 05/07/2024 (Approximate), Expires: 05/07/2024 Start: 11-09-2023 Influenza vaccination Influenza Vacc ine [facility] Start: 06-11-2023 End: 06-11-2023 Patient encounter procedure 06/11/2023 1:00 PM EDT Appointment [facility] [address] [place] [address] [facility] Start: 06-10-2023 End: 06-10-2023 Patient encounter procedure 06/10/2023 3:00 PM EDT Office Visit [facility] [address] [place] [address] Leana Burr MD [facility] [place] [address] [facility] Start: 06-04-2023 End: 06-04-2023 Patient encounter procedure 06/04/2023 10:45 AM EDT Office Visit [facility] [address] [place] [address] Leana Burr MD [address] [place] [address] [facility] [place] [facility] Start: 05-29-2023 End: 05-29-2023 Patient encounter procedure 05/29/2023 10:45 AM EDT Office Visit [facility] [address] [facility] [address] [place] [address] Leana Burr MD [address] [facility] [address] [place] [address] [facility] Start: 05-20-2023 End: 05-20-2023 Telemedicine consultation with patient 05/20/2023 8:00 AM EDT Telemedicine [facility] [address] [facility] [address] [place] [phone] Leana Burr MD [address] [facility] [address] [place] [address] [facility] Start: 05-12-2023 End: 05-12-2023 Patient encounter procedure 05/12/2023 8:30 AM EST Routine [facility] [address] [place] [address] Shwetha Walton PA [address] [place] [address] [facility] Start: 05-07-2023 End: 05-07-2023 Patient encounter procedure 05/07/2023 3:00 PM EST Office Visit [facility] [address] [place] [phone] Opal Heath, ANODE ADJUSTER-ASSISTANT MERCHANDISE MANAGER [address] [place] [address] [facility] Start: 05-07-2023 End: 05-07-2023 ambulatory 05/07/2023 1:00 PM EST Support Visit [facility] [address] [place] [phone] Shital Chen, RD [address] [place] [address] [facility] Start: 11-08-2022 Influenza vaccination Influenza Vacc ine [facility] Start: 11-27-2021 End: 11-27-2021 Patient encounter procedure 11/27/2021 Office Visit Endocrinology Gregorio Floyd MD [address] [place] [address] [facility] Start: 11-27-2021 Hemoglobin A1c measurement A1C [facility] Start: 11-08-2021 Influenza vaccination Sequenti al Influenza Vaccine (Season Ended) [facility] Start: 06-25-2021 End: 06-25-2021 Patient encounter procedure 06/25/2021 Office Visit Endocrinology Gregorio Floyd MD [address] [place] [address] [facility] Start: 11-08-2020 Influenza vaccination Sequenti al Influenza Vaccine (#1) [facility] Start: 11-14-2015 Screening for malign ant neoplasm of cervix Pap Smear [facility] Start: 2013 DTaP,Tdap and Td Vaccines (1 - Tdap) DTaP,Tdap and Td Vaccines (1 - Tdap) [facility] Start: 2012 Adult BMI Follow Up Plan Adult BMI Follow Up Plan [facility] Start: 2012 Adult BMI Screening Adult BMI Screen ing [facility] Start: 2012 Diabetic foot examination Diabetic Foot Exam [facility] Start: 2012 Hepatitis C screening Hepatitis C Sc reening [facility] Start: 2009 HIV screening HIV Screening [facility] Start: 2006 Depression screening using PHQ-9 (Patient Health Questionnaire 9) score [facility] Start: 2006 Tobacco Screening Tobacco Screening [facility] Start: 2005 DTaP,Tdap and Td Vaccines (5 - Tdap) DTaP,Tdap and Td Vaccines (5 - Tdap) [facility] Start: 2004 Diabetic foot examination Foot Exam [facility] Start: 2004 Microalbumin measurement, urine, quantitative Urine Microalbumin [facility] Start: 2004 Ophthalmic examinati on and evaluation Ophthalmology Exam [facility] Start: 2000 Pneumococcal Vaccine : Ped or At-Risk (1 - PCV) Pneumococcal Vaccine: Ped or At-Risk (1 - PCV) [facility] Start: 11-14-1999 COVID-19 Vaccine (#1) COVID-19 Vacci ne (#1) [facility] Start: 11-14-1999 COVID-19 Vaccine (1) COVID-19 Vaccin e (1) [facility] Start: 1997 History and physical examination, annual for health maintenance Wellness Visit [facility] Start: 1994 Glaucoma screening Diabetic Op hthalmology Exam [facility] Start: 1994 Screening for malign ant neoplasm of cervix Pap Smear [facility] Start: 1994 Tetanus vaccination Tetanus: Every 1 0yrs [facility] Start: 1994 Urine screening for protein Urine Microalbumin [facility] End: 08-27-2022 C peptide [Mass/volume] in Serum or Plasma C-peptide Lab Routine Type 2 diabetes mellitus with hyperglycemia, unspecified whether web editor insulin use (HCC) 1 Occurrences starting 08/27/2021 until 08/27/2022 [facility] Comment on above: 1 Occurrences starti ng 08/27/2021 until 08/27/2022 End: 05-19-2024 C-peptide C-peptide Lab Routine Type 2 diabetes mellitus in , second trimester 1 Occurrences starting 05/20/2023 until 05/19/2024 [facility] Comment on above: 1 Occurrences starti ng 05/20/2023 until 05/19/2024 End: 05-19-2024 GAD65 Ab assay GAD65 Ab assay Lab Routine Type 2 diabetes mellitus in , second trimester 1 Occurrences starting 05/20/2023 until 05/19/2024 [facility] Work Phone: Comment on above: 1 Occurrences starti ng 05/20/2023 until 05/19/2024 End: 08-27-2022 Glucose [Mass/volume] in Serum or Plasma Glucose Lab Routine Type 2 diabetes mellitus with hyperglycemia, unspecified whether residential insulin use (HCC) 1 Occurrences starting 08/27/2021 until 08/27/2022 [facility] Comment on above: 1 Occurrences starti ng 08/27/2021 until 08/27/2022 End: 05-19-2024 Glucose [Mass/volume] in Serum or Plasma Glucose Lab Routine Type 2 diabetes mellitus in , second trimester 1 Occurrences starting 05/20/2023 until 05/19/2024 [facility] Comment on above: 1 Occurrences starti ng 05/20/2023 until 05/19/2024 Hepatic function 200 0 panel - Serum or Plasma Hepatic function panel Lab Routine Type 2 diabetes mellitus with hyperglycemia, unspecified whether residential insulin use (HCC) Ordered: 08/27/2021 [facility] Comment on above: Ordered: 08/27/2021 End: 05-19-2024 Insulinoma Associated Antibody 2 Insulinoma Associated Antibody 2 Lab Routine Type 2 diabetes mellitus in , second trimester 1 Occurrences starting 05/20/2023 until 05/19/2024 [facility] Comment on above: 1 Occurrences starti ng 05/20/2023 until 05/19/2024 End: 08-27-2022 Islet cell antibody measurement Anti-Islet Cell (GAD65) Antibody Lab Routine Type 2 diabetes mellitus with hyperglycemia, unspecified whether web editor insulin use (HCC) 1 Occurrences starting 08/27/2021 until 08/27/2022 [facility] Comment on above: 1 Occurrences starti ng 08/27/2021 until 08/27/2022 End: 08-27-2022 Lipid 1996 panel - Serum or Plasma Lipid Panel Lab Routine Type 2 diabetes mellitus with hyperglycemia, unspecified whether web editor insulin use (HCC) 1 Occurrences starting 08/27/2021 until 08/27/2022 [facility] Comment on above: 1 Occurrences starti ng 08/27/2021 until 08/27/2022 Microalbumin measurement, urine, quantitative Microalbumin/Creatinine Ratio, UR Random Lab Routine Type 2 diabetes mellitus with hyperglycemia, unspecified whether residential insulin use (HCC) Ordered: 08/27/2021 [facility] Work Phone: Comment on above: Ordered: [...] Phone: Start: 04-01-2023 Antibody screen [facility] Work Phone: Start: 04-01-2023 Bacteria identified [...] Test Name Value Interpretation Reference Range Facility Coding Summary.on 09-01-2023 Coding Summary. [id number] hlYWQ+[id number] [id number] DSJGjUJhHmcqWqCL6rjD NjZXJu IC8+QZ9uZOZiXehukKPi h3M6oNH8V38igy8bPDtz pHH0BVRjYhTpxejun3hx sRc4HRpkReooGmHh EVRrrM31LQN2wC14Xv32 yVWetZPlz0wwjNk1WsHz FXTxDVC0zEagPRgua6Wz EYNdS14qrJQhf4D3 IGNvbGxhcHNlOyBlbXB0 pB8kYAzssvnas7ourxkz Ysu2yh55xPKri3Y3yPX5 S8HywoG3HVCwuICb ZuqykFNMfD6ddqiyz2qk dyujLdOsEFErHUx0WXl8 PNWedIrnWlDfQG47BUZ5 OJNazhSbG7OvTJKh lPtnEzC6t8Z4Ar2BT8QM AmcxL7RGMTQVRLiwpCH+ TB98qm43K2CmMwotDnn6 OBPgOLS5wWG2fU3w ECNzBEvyy4U8mZQ5Z3Qm ppJver7sr8lfAERiJZly H18pzZQvw0N3ZCVhrVJ0 TZUbqBmnMwKeoI15 Oyc+AMXfvSogi9BlEmkt k2sbv8tbrVq3XyqmNJJw fgYatUxyZKZ0x8XoEl0j ZOGvgPW0lSV9eK0q VuIgTnA0RMztL185QiQc pLZyEatgP99hJ6BekQN+ XROlIfr1WKOhzRbdXW0b E5XdOVOdtnnstCZf gPfjVH6hJYJyfgdnSVFh fE8gYHMzA4w0GvSrXlB1 OIlkV3DsGUOfymtuWt43 oZ2sYaDqRlU1BYzr N7AmgzR0FUHutJPoYVgl OGD7V61pl6F8ADTaESIg MLN9kWS2pM8orOyawfrm bGVmdDsgdmVydGlj KZaeGFcvD458WACbnNwq PkNvZGluZyBEYXRlOiAg MDYvMjQvMjAyNDwvdGQ+ SQZcFYQ8kYgjNEJx aEJwFGjxLm9poYxgmFwk XA0yODXawhsdHPOtwV5x MIQhwFHvdGkdSW4dSDQg vsing480FkUaABJ5 IIUixOQaB2BkoI7sYiHu FXNjBKSrT6KnqZQcFLcx U883BJasVnU8DEMoqhBi R5RtOUDpnUagHfF1 j0D5Yl7Lz7GyvpymB2Yl nSNxXyVqNxwuRBp7E0Fa PjwvdHI+CH99PHElRR19 DKm5WRW3bImuREgx OIDiN8NhwR4xQvJpHGIh ZGRkOyc+PHRhYmxlIHdp ZHRoPScxMDAlJyBzdHls AY1bVz5gOLMtRXCl mFzivULeTrWnk2rcYWDb WErfQG3omQuhO4FqdEW5 SJOfl0e8Yt23D80dI2Nu dXA+NRPxhIY7vZJ6 kF0jAeEgBsA4QOddQ151 ThGlvGRxKkihl5rbi9bm qLn3MhA1CEDlfuKisZzb ULM4z4ZrJi92L25b IHdpZHRoPSIxNSUiIHZh oNfxfl5rzC1pHg1+PGNv hOG3kUG9nW4mZwBcXuW8 VGxmF612KdVluVBe Lfxbl2nas2zbpWl2RpCf NHImzzTvuCdlMVP8o8Mg Pu34U5CgpBdnm7RzYzs2 jj59hRHpi9K9rKU7 L7ZoRRFafqwbxHDkwVrm MJ2eMHLatmdiGINmrD3b UVQdY4t1ZaMaVdL6GUge O2ZbeqT1NUFzyJPl LSLrqJJVjY4jlsywh4fs syllYwQsNSHcNMi8YLd3 LOFkhQblPrNdFDS5DyO8 LHP0kRSeoQ7kwHtq uwjmpP6hYny+USJ1oKRh nEORQG2sIcsjaMM+PHRk ZWI0tUuqMGxcMJLelK8n EGPdR3j3QwQkXlK9 SSgbW7YzohN0TLIgrLXx BGMukKCBsA5guqieq6jk flghXsArXZGxGRl3NEi5 LWFsaWduOiBsZWZ0 AfW4SZV0yQMfsG6ujOop tlsojA8fVie+QmlydGgg LJN5CYx1R4TmZjv8DLBz cGimLO6scVBeCNky Gy1gfOodvEzrUM5uLCDj vpijm914AeWaf9pcSHGw aLKgPLnaRFI4V16ce4N4 QOZlZMFgURQ1xKK6 aE7mqBbxymegwYKjfPsf voYilDutYHcsYGovQ812 ZDEihCzyWcYhMBg1H7Ri Kou5NJXfySeaLC5u kKZrQVpwBf2uzGtetVtd ZG9uFQJjixcjj404XfSs t6qfCSAdrENpWKerJHT8 Z45rg2R7JFZqQFKt LSL5aUZ5jH5zdRfhbbgk bGVmdDsgdmVydGljYWwt XAgkK446VDSyvVweGdPq uXj7F6DsRmq5IWXg cFabZT2rdFNzNGwzWa3t iHfuvQtwFS6qRUBpyglx z378BcCum4ogUVFejMVc LQfwBXQ2O35qy3R1 RGFxWHQmZCD3kDF0yU5k bGlnbjogbGVmdDsgdmVy vEzmCWmqYTatR970CXUg cDsnPlBhdGllbnQg OBziZSs5J8GjTexjzRE+ TF11ISWaCR29rAVehDUa r8lozUx1ExGcONBrDBI4 yDzjMBroc3WhFAKh E82gkESnn1L5FIXshBwc pJIzBaJodGK6aN9nKGtx brcjq0oisurqFchmq7cz ib83yZ78A30lGIxi ZHRoPSIzMCUiIHZhbGln eg6crE4mAt7+PGNvbCB3 sEC4yC9mVRCuQyW3PNgq X153QmNdmRJeEodt j3bjz3eqjNv9LgC9PWQk ycLteXgtGFG9n0IiSm17 C60iXGsdNTTqWYQtZYZc WSVznYmfrv4gvD5q Ii8+EJLhaTT5fSC7sB3k QxTfAbU3OEraL789YxSj cCViYiliY64rP3XvrCJ+ MPHdXrw6HLBviIys SQ7ydOGqDZzeFy4yIRL0 HfZoAyAcCOerR0ZcUPDp kwvnjehmuXM4LXFwNFGr cX26Lj5dyZtrNPNs sWCTsD0thzlyo0lptqoo JbUmUBLjCKh4UNb2MWGb yRnwAvOqZBS0DcF6CFC6 hHTphP6obDjwsrfw iF9sA0EfRCEajzikJh44 jR6tXxBcCaD1QWgfFrh+ RpHGZH4AX4NmJHPAJ1MG KpAOCIIMKQ63OO91 xFSja6D8fXO1P9LzHIWc dzpetlinhAR6SMQyOYAw xN44tJAuNCloAr5ic3C0 y142KBGsJJYoxT97 Wl7nsPkeEPLonGXXmG7a vtakn2mldjqvDiZrJCIm GLi4BTi1PZRdcBcjAtPl SQC7ZfU6ITE3uAHl eA2okCirrlrlmU5fWvt+ QLudCYMfFJp3WLumdWU+ AWWnWOX8nMleSTusDUPs lN9cIILlC6t0CvGw UbM6DTjuU5SzFZGopizt Dg48uZ8oJjBuSuF2ZNtz I6GibxU3OFQnjDSnFTjk BBS5Z95nx2O5CDWl GSPuOCJ8pBV9lS3bmWnz bjogbGVmdDsgdmVydGlj HTulJRwsX878BLByoBhh YiQ1INtcPEEhPI74 TN18qIGnj6J3kOI4P2Qc VBTwefcuclrpzQZ4NVQv PNQrqI92iYGzVMskFa9i g9E6t449ADTeBGNm iN14Vs2ovCooTKWspNZZ kA9vdqamc0knzlelFlKe MGSmEPu0FYc9FSLnoYdy EwTqDZR9RoD3UGW1 sKKopZ0ahXoxvmetsC2i Oyc+KuSrDKrtKW97IW63 zZNuj7R8wYP8Q0TpUMJh pifkpzlqaVS7UBWv MRDanE13kIJqWDeiNy4b h3F9i662RTLdTRDbpK24 Dt2yvHqrZNWdyAYMuY8q gxjey4cjhpkxWtPn DCQbVLn7AZo8POLhvBrx IwNxGLG5SwA8QFR7fYAh zT2gzLnzlqvvhS2bLkd+ U3UuRYPpJWjqFS96 UX61E6BwGafddPUigKJ+ PHRhYmxlIHdpZHRoPScx IDYjQkJdkCzvNY0kEu1h ZGVyLWNvbGxhcHNl NrXgv8hvVDLaVLpcTP1a yYnoS3JheZZ4UFKct3m2 Ny23J98pT8CebWJ+PGNv nPY4sRA7rC4kDaLb UoJ5ZUfdQ515FhBcsCYo Dgmkr3zfk1bfjZi3MdYh FIIitbNsfVraCIE9p5Sv Tv84S35tWQufVDUf RWFlKMLyWSKqgUsriy3n qI4oMm8+UFCqlYM3pGD9 jP9qQhLvUwQ7MUinH474 PqDlwFUxYcbeG40j O4SqpWL+CWRwWsn5TYYs gDdnOJ3wfBMgNFpdGx4d LFN6ZfYoXaMdPHlcJ2Cu ZGRpbmctcmlnaHQ6 ZARlZEIpdN15Qd7mfTsr Dd6yNJIsFGM7TRYveTGs R1AcuM2lKwQyCVJtEUWg M6LrnTQmESehO312 QIrtMmQ4ZXClunNeM4Oz LZCjmVxjRmK4c8U9Iq6O fEplhDIqKW2kRxNpYOi4 K3TzLii2WPGzbOid SS3quHUvZMtbDu6hcKxf sAylMY0qBNNuskqak403 SjYux8gyKGOiqXSmYZdm ZFH7O15jh2P7ASVl SDMtIEF0bDJ8iM0jpOmm bjogbGVmdDsgdmVydGlj BBafCLdfO532EJPjtAbz WbQVKts6R4JiSpt3 PUCywIgmUA1ueGBdGEhq Ze8zpGvrxNdxHS2hNJKm mgpsf720RiRaq7ulSUFm xTYhMGbsGHZ4K42e x7J8JPKhYYCvKRA4eGS8 pD7zzIrkilkxeCFohXam mjCuxNaaHYlaHAorP741 BWIogPwhGm9VPee1 P4YwSnx9VIAorDloBP6z uIFiMVteGh6osUshfRzz LB1kEKDstoiee603GbIg o7ccQFJkyFGkHVyj TMZ5S46hn3P8CMJaTKRq DPN9nPC2qZ6trKsvcavd bGVmdDsgdmVydGljYWwt GJlfV218ARFrzFan PlBheWVyOjwvdGQ+PC90 ry89N8XnNmncHpc1MWXh QDB4gBD0eP9yKSAdNUxu c0O0iFP1L5FaorRa oq7lq7cwNSZmP (more content not included)... Normal [facility] Nursing Assessmenton 024 Nursing Assessment [id number] #1.00TIFF Normal [facility] ABO/Rh History Checkon 08-21 ABO/Rh History Check Patient discharged prior Normal [facility] Comment on above: Performed By: #### 1 [id number] #### [facility] [address] [place] [address] EMS Documentationon 08-22-19 24 EMS Documentation Please click on link to see report Normal [facility] Comment on above: Result Comment: Miss ing Attachment - total size limit for all attachments exceeded [email or web address] Can be viewed in source system Inpatient Clinical Summaryon 08-22-2023 Inpatient Clinical Summary [address] [address] Clinical Summary Person Information Name: TESS MOORE [place] Age: 27 Years : 1995 Sex: Female PCP: Champ Laureano MD Marital Status: Phone: [phone] Race: White Ethnicity: Non- or Language: German Visit Id: Visit Reason: Speciality: Acuity: Obs Enc Type: OB Triage Med Service: Obstetrics Arrival: 08/21/2023 21:24:21 Discharge: 08/22/2023 00:15:00 Dispo Type: Home (Routine DC) Address: [address] [place] [phone] Provider Notes: Diagnosis: Problems Active (01/20/2023) Sensation [...] This Visit Final Med List: acetaminophen-hydroc odone ([place] 325 mg-5 mg oral tablet) 1 Tablets [...] Referring Physician: Follow up: With: Address: When: [facility], [address] [place] [address] [place] [address] Business (1) In 1 day 08/22/2023 Comments: Call Dr if fever>100.5 F, heavy bleeding Call for severe abdominal pain Call physician for heavy vaginal bleeding Call physician if symptoms worsen Return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 % [facility] Hemoglobin (Bld) [Mass/Vol] 12.8 g/dL [facility] Platelets (Bld) [#/Vol] 305 10*3/uL [facility] Mcv (Fl) By Automated Count 82.2 [employer] Free Cell DNAon 2023 Free Cell Dna no call [facility] HIV 1&2 AB/AG Screen (P24 AG )on 04-01-2023 HIV 1&2 AB/AG Negative [facility] Hemoglobin A1con 04-01-2023 HbA1c (Bld) [Mass fraction] 7.9 % Abnormal 4.0 - 6.0 % [facility] Interpretation and review of laboratory results Abnormal [facility] Hepatitis B surface antigeno n 04-01-2023 Hepatitis B Surface Antigen Negative [facility] No Panel Informationon 04-01 [facility] Rubella IGG immune statuson 04-01-2023 Rubella immune IgG immune [facility] Syphilis Total(Unknown Syphi lis Status)on 04-01-2023 Syphilis Non-Reactive [facility] TSHon 04-01-2023 Thyroid Stimulating (3Rd Generation) Hormone/ Tsh 1.051 [facility] TSH Qn 1.05 m[IU]/L [facility] Type and screenon 04-01-2023 Abo/Rh(D) Positive [facility] Urine Cultureon 04-01-2023 Bacteria identified Cx Nom (U) no growth [facility] Covid-19 PCR (CVDTB)on 05-09 SARS-CoV-2 (COVID-19) RNA EZEKIEL+probe Ql (Unsp spec) Not detected Normal NOT DETECTED [facility] Comment on above: Result Comment: This test is not yet approved or cleared by the [place] FDA. When there are no FDA-approved or cleared tests available, and other criteria are met, FDA can make tests available under an emergency access mechanism called an Emergency Use Authorization (EUA). The EUA for this test is supported by the [place] of Health and Human Service's (HHS's) declaration [...] SARS-CoV-2. Performed By: #### C VDTB #### [facility] [address] [place] [address] Dr. Rosemary Ames GROUP A STREP CULTUREon 05-09 S. pyogenes Ag Ql (Unsp spec) Culture Observations: NEGATIVE FOR GROUP A STREPTOCOCCUS. Normal [facility] Comment on above: Performed By: #### T 7, LIPID, TSH, CMADM, BNP, CMP #### [facility] [address] [place] [address] Dr. Rosemary Ames INFLUENZA A AND B AGon 05-31 INFLUANEGH SEE BELOW Normal [facility] Comment on above: Result Comment: Nega tive for Flu A protein angiten. Infection due to Flu A cannot be ruled out. Flu A angiten in the sample may be below the detection limit of the test. Performed By: #### I NFLUAB #### [facility] [address] [place] [address] Dr. Rosemary Ames INFLUBNEGH SEE BELOW Normal [facility] Comment on above: Result Comment: Nega tive for Flu B protein antigen. Infection due to Flu B cannot be ruled out. Flu B antigen in the sample may be below the detection limit of the test. Performed By: #### I NFLUAB #### [facility] [address] [place] [address] Dr. Rosemary Ames INFLUENZA A AG Negative Normal NEGATIVE SEE COMMENT [facility] Comment on above: Performed By: #### I NFLUAB #### [facility] [address] [place] [address] Dr. Rosemary Ames INFLUENZA B AG Negative Normal NEGATIVE SEE COMMENT [facility] Comment on above: Performed By: #### I NFLUAB #### [facility] [address] [place] [address] Dr. Rosemary Ames STREPT SCREENon 05-31-2022 STREP SCREEN A Negative Normal NEGATIVE [facility] Comment on above: Performed By: #### E RUR #### [facility] [address] [place] [address] Dr. Rosemary Ames SYMPTOMATIC COVID-19 ANTIGEN on 05-31-2022 EUA Statement SEE BELOW Normal [facility] Comment on above: Result Comment: This [...] 7, LIPID, TSH, CMADM, BNP, CMP #### [facility] [address] [place], [place] [address] Dr. Rosemary Ames SARS-CoV-2 (COVID-19) RNA EZEKIEL+probe Ql (Unsp spec) Negative Normal NEGATIVE [facility] Comment on above: Performed By: #### T 7, LIPID, TSH, CMADM, BNP, CMP #### [facility] [address] [place], [place] [address] Dr. Rosemary Ames ECHOCARDIO M/2D COMPLETEon 0 04-10-2022 ECHOCARDIO M/2D COMPLETE Patient: TESS ASHLEY Exam Date: 04/10/2022 : 1995 Gender:F Ordering : DR CHAMP LAUREANO . Admission #: [id number] Family : Order #: [id number] CLICK HERE TO VIEW EXAM ECHOCARDIOGRAM REPORT [...] M.D. on 04/10/2022 at 17:40 Normal [facility] CBC AUTO DIFFon 03-13-2022 BASO # 0.0 103/ul Normal 0.0-0.1 [facility] Comment on above: Performed By: #### A 1C #### [facility] [address] [place] [address] [address] Rosemary Ames Basophils/100 WBC (Bld) 0.3 % Normal 0.2-2.0 [facility] Comment on above: Performed By: #### A 1C #### [facility] [address] [place] [address] Dr. Rosemary Ames EO # 0.0 103/ul Normal 0.0-0.7 [facility] Comment on above: Performed By: #### A 1C #### [facility] [address] [place] [address] [address] Rosemary Ames Eosinophils/100 WBC (Bld) 0.5 % Critically low 0.9-7.0 [facility] Comment on above: Performed By: #### A 1C #### [facility] [address] [place] [address] Dr. Rosemary Ames Erythrocyte distribution width (RBC) [Ratio] 14.5 % Normal 11.0-15.0 [facility] Comment on above: Performed By: #### A 1C #### [facility] [address] [place] [address] Dr. Rosemary Ames Hematocrit (Bld) [Volume fraction] 39.7 % Normal 36.0-48.0 [facility] Comment on above: Performed By: #### A 1C #### [facility] [address] [place] [address] Dr. Rosemary Ames Hemoglobin (Bld) [Mass/Vol] 12.9 g/dL Normal 12.0-16.0 [facility] Comment on above: Performed By: #### A 1C #### [facility] [address] [place] [address] Dr. Rosemary Ames IG # 0.03 10e3/ul Normal 0.00-0.03 [facility] Comment on above: Performed By: #### A 1C #### [facility] [address] [place] [address] Dr. Rosemary Ames IG % 0.4 % Normal 0.0-0.5 [facility] Comment on above: Performed By: #### A 1C #### [facility] [address] [place] [address] Dr. Rosemary Ames LYMPH # 0.5 103/ul Critically low 1.2-3.8 [facility] Comment on above: Performed By: #### A 1C #### [facility] [address] [place] [address] Dr. Rosemary Ames Lymphocytes/100 WBC (Bld) 6.6 % Critically low 20.5-60.0 [facility] Comment on above: Performed By: #### A 1C #### [facility] [address] [place] [address] Dr. Rosemary Ames MANUAL DIFF REQ NO Normal [facility] Comment on above: Performed By: #### A 1C #### [facility] [address] [place] [address] Dr. Rosemary Ames MCH (RBC) [Entitic mass] 25.1 pg Critically low 26.7-34.0 [facility] Comment on above: Performed By: #### A 1C #### [facility] [address] [place] [address] Dr. Rosemary Ames MCHC (RBC) [Mass/Vol] 32.5 g/dL Normal 29.9-35.2 [facility] Comment on above: Performed By: #### A 1C #### [facility] [address] [place] [address] Dr. Rosemary Ames MCV (RBC) [Entitic vol] 77.2 fL Critically low 81.0-99.0 [facility] Comment on above: Performed By: #### A 1C #### [facility] [address] [place] [address] Dr. Rosemary Ames MONO # 0.7 103/ul Normal 0.3-0.8 [facility] Comment on above: Performed By: #### A 1C #### [facility] [address] [place] [address] Dr. Rosemary Ames Monocytes/100 WBC (Bld) 9.3 % Normal 1.7-12.0 [facility] Comment on above: Performed By: #### A 1C #### [facility] [address] [place] [address] Dr. Rosemary Ames NEUT # 6.2 103/ul Normal 1.4-6.5 [facility] Comment on above: Performed By: #### A 1C #### [facility] [address] [place] [address] Dr. Rosemary Ames Neutrophils/100 WBC (Bld) 82.9 % Critically high 43.0-75.0 [facility] Comment on above: Performed By: #### A 1C #### [facility] [address] [place] [address] Dr. Rosemary Ames Platelet mean volume (Bld) [Entitic vol] 9.8 fL Normal 9.5-13.5 [facility] Comment on above: Performed By: #### A 1C #### [facility] [address] [place] [address] Dr. Rosemary Ames PLT 246 103/ul Normal 150-450 [facility] Comment on above: Performed By: #### A 1C #### [facility] [address] [place] [address] Dr. Rosemary Ames RBC 5.14 106/ul Normal 4.20-5.40 [facility] Comment on above: Performed By: #### A 1C #### [facility] [address] [place] [address] Dr. Rosemary Ames WBC 7.4 103/ul Normal 4.0-11.0 [facility] Comment on above: Performed By: #### A 1C #### [facility] [address] [place] [address] Dr. Rosemary Ames Covid-19 PCR ([facility])on SARS-CoV-2 (COVID-19) RNA EZEKIEL+probe Ql (Unsp spec) Not detected Normal NOT DETECTED [facility] Comment on above: Result Comment: When [...] for this test is supported by the [place] of Health and Human Service's declaration that [...] used). Performed By: #### A 1C #### [facility] [address] [place] [address] Dr. Rosemary Ames D-DIMERon 03-13-2022 D-DIMER 0.26 mg/L FEU Normal <=0.59 [facility] Comment on above: Performed By: #### T 7, LIPID, TSH, CMADM, BNP, CMP #### [facility] [address] [place] [address] Dr. Rosemary Ames D-DIMER COMMENTS SEE BELOW Normal [facility] Comment on above: Result Comment: Incr eases [...] 7, LIPID, TSH, CMADM, BNP, CMP #### [facility] [address] [place] [address] Dr. Rosemary Ames ER URINE PROFILEon 3 Bilirubin Ql (U) Negative Normal NEGATIVE [facility] Comment on above: Performed By: #### E RUR #### [facility] [address] [place] [address] Dr. Rosemary Ames Clarity (U) CLEAR Normal CLEAR [facility] Comment on above: Performed By: #### E RUR #### [facility] [address] [place] [address] Dr. Rosemary Ames Color (U) LT. YELLOW Normal YELLOW [facility] Comment on above: Performed By: #### E RUR #### [facility] [address] [place] [address] Dr. Rosemary MARTIN A micrscopic examination will be performed if indicated. Normal [facility] Comment on above: Performed By: #### E RUR #### [facility] [address] [place] [address] Dr. Rosemary Ames Glucose Ql (U) Negative Normal NEGATIVE [facility] Comment on above: Performed By: #### E RUR #### [facility] [address] [place] [address] Dr. Rosemary Ames Hemoglobin Ql (U) Negative Normal NEGATIVE [facility] Comment on above: Performed By: #### E RUR #### [facility] [address] [place] [address] Dr. Rosemary Ames Ketones Ql (U) Negative Normal NEGATIVE [facility] Comment on above: Performed By: #### E RUR #### [facility] [address] [place] [address] Dr. Rosemary Ames LEUKOCYTES Negative Normal NEGATIVE [facility] Comment on above: Performed By: #### E RUR #### [facility] [address] [place] [address] Dr. Rosemary Ames Nitrite Ql (U) Negative Normal NEGATIVE [facility] Comment on above: Performed By: #### E RUR #### [facility] [address] [place] [address] Dr. Rosemary Ames pH (U) 6.0 [pH] Normal 5-9 [facility] Comment on above: Performed By: #### E RUR #### [facility] [address] [place] [address] Dr. Rosemary Ames SPEC GRAVITY 1.015 Normal 1.005-<=1.02 5 [facility] Comment on above: Performed By: #### E RUR #### [facility] [address] [place] [address] Dr. Rosemary Ames UA PROTEIN Negative Normal NEGATIVE/ TRACE [facility] Comment on above: Performed By: #### E RUR #### [facility] [address] [place] [address] Dr. Rosemary Ames UR MICRO IND NOT INDICATED Normal [facility] Comment on above: Performed By: #### E RUR #### [facility] [address] [place] [address] Dr. Rosemary Ames Urobilinogen Qn (U) 0.2 {Vincent'U}/dL Normal 0.2 - 1. 0 [facility] Comment on above: Performed By: #### E RUR #### [facility] [address] [place] [address] Dr. Rosemary Ames INFL[facility]ENZA A [facility] Normal [facility] Comment on above: Result Comment: Nega tive for Flu A protein angiten. Infection due to Flu A cannot be ruled out. Flu A angiten in the sample may be below the detection limit of the test. Performed By: #### E RUR #### [facility] [address] [place] [address] Dr. Rosemary Ames INFLUBNEGH SEE BELOW Normal [facility] Comment on above: Result Comment: Nega tive for Flu B protein antigen. Infection due to Flu B cannot be ruled out. Flu B antigen in the sample may be below the detection limit of the test. Performed By: #### E RUR #### [facility] [address] [place] [address] Dr. Rosemray Ames INFLUENZA A AG Negative Normal NEGATIVE SEE COMMENT [facility] Comment on above: Performed By: #### E RUR #### [facility] [address] [place] [address] Dr. Rosemary Ames INFLUENZA B AG Negative Normal NEGATIVE SEE COMMENT [facility] Comment on above: Performed By: #### E RUR #### [facility] [address] [place] [address] [address] Rosemary Ames LACTATE/LACTIC ACIDon 2022 Lactate [Moles/Vol] 2.0 mmol/L Critically high 0.4-1.9 [facility] Comment on above: Performed By: #### A 1C #### [facility] [address] [place] [address] Dr. Rosemary Ames LIPASEon 03-13-2022 Lipase [Catalytic activity/Vol] 79.0 U/L Normal 73.0-393.0 [facility] Comment on above: Performed By: #### A 1C #### [facility] [address] [place] [address] Dr. Rosemary Ames PREG HCG QUALon 03-13-2022 , QUAL Negative Normal NEGATIVE [facility] Comment on above: Performed By: #### A 1C #### [facility] [address] [place] [address] Dr. Rosemary Ames PROF 14(COMP METB)on 023 Albumin [Mass/Vol] 4.1 g/dL Normal 3.4-5.0 [facility] Comment on above: Performed By: #### A 1C #### [facility] [address] [place] [address] Dr. Rosemary Ames Albumin/Globulin [Mass ratio] 1.1 {ratio} Normal [facility] Comment on above: Performed By: #### A 1C #### [facility] [address] [place] [address] Dr. Rosemary Ames ALP [Catalytic activity/Vol] 77 U/L Normal 46-116 [facility] Comment on above: Performed By: #### A 1C #### [facility] [address] [place] [address] Dr. Rosemary Ames ALT [Catalytic activity/Vol] 149 U/L Critically high 14-59 [facility] Comment on above: Performed By: #### A 1C #### [facility] [address] [place] [address] [address] Rosemary Ames Anion gap [Moles/Vol] 16.0 mmol/L Normal [facility] Comment on above: Performed By: #### A 1C #### [facility] [address] [place] [address] [address] Rosemary Ames AST [Catalytic activity/Vol] 82 U/L Critically high 15-37 [facility] Comment on above: Performed By: #### A 1C #### [facility] [address] [place] [address] [address] Rosemary Ames Bilirubin [Mass/Vol] 1.0 mg/dL Normal 0.2-1.0 [facility] Comment on above: Performed By: #### A 1C #### [facility] [address] [place] [address] [address] Rosemary Ames Calcium [Mass/Vol] 9.1 mg/dL Normal 8.5-10.1 [facility] Comment on above: Performed By: #### A 1C #### [facility] [address] [place] [address] [address] Rosemary Ames Chloride [Moles/Vol] 96 mmol/L Critically low 98-107 [facility] Comment on above: Performed By: #### A 1C #### [facility] [address] [address] [address] Rosemary Ames CO2 [Moles/Vol] 25.7 mmol/L Normal 21.0-32.0 [facility] Comment on above: Performed By: #### A 1C #### [facility] [address] [address] [address] Rosemary Ames Creatinine [Mass/Vol] 0.78 mg/dL Normal 0.55-1.02 [facility] Comment on above: Performed By: #### A 1C #### [facility] [address] [address] [address] Rosemary Ames EGFR-AF PALAUAN >60 Normal >=60 [facility] Comment on above: Performed By: #### A 1C #### [facility] [address] [address] [address] Rosemary Ames EGFR-NON AF PALAUAN >60 Normal >=60 [facility] Comment on above: Performed By: #### A 1C #### [facility] [address] [address] [address] Rosemary Ames Globulin (S) [Mass/Vol] 3.9 g/dL Normal [facility] Comment on above: Performed By: #### A 1C #### [facility] [address] [address] [address] Rosemary Ames Glucose [Mass/Vol] 190 mg/dL Critically high 74-106 T [facility] Comment on above: Performed By: #### A 1C #### [facility] [address] [place] [address] Dr. Rosemary Ames Potassium [Moles/Vol] 3.7 mmol/L Normal 3.5-5.1 [facility] Comment on above: Performed By: #### A 1C #### [facility] [address] [place] [address] Dr. Rosemary Ames Protein [Mass/Vol] 8.0 g/dL Normal 6.4-8.2 [facility] Comment on above: Performed By: #### A 1C #### [facility] [address] [place] [address] Dr. Rosemary Ames Sodium [Moles/Vol] 134 mmol/L Critically low 136-145 Th [facility] Comment on above: Performed By: #### A 1C #### [facility] [address] [place] [address] Dr. Rosemary Ames Urea nitrogen [Mass/Vol] 9.0 mg/dL Normal 7.0-18.0 [facility] Comment on above: Performed By: #### A 1C #### [facility] [address] [place] [address] Dr. Rosemary Ames Urea nitrogen/Creatinine [Mass ratio] 11.5 mg/mg Normal [facility] Comment on above: Performed By: #### A 1C #### [facility] [address] [place] [address] Dr. Rosemary Ames TROPONIN, HIGH SENSITIVITYon 03-13-2022 HSTROP <4.0 Normal 4.0-51.3 [facility] Comment on above: Result Comment: CUT- OFF POINTS HAVE BEEN ESTABLISHED BASED ON THE FOURTH UNIVERSAL DEFINITIONS OF MYOCARDIAL INFARCTION. THE UPPER REFERENCE LIMIT (URL) OF TROPONIN, DEFINED THE 99TH PERCENTILE OF cTnI DISTRIBUTION IN A REFERENCE POPULATION, HAS BEEN CONFIRMED THE DECISION THRESHOLD FOR [place] DIAGNOSIS. Previously reported as: 3.9 On 03/13/2022 18:24 By DM9 Performed By: #### A 1C #### [facility] [address] [address] [address] Rosemary Ames TSHon 03-13-2022 TSH 0.440 uIU/mL Normal 0.358-3.740 [facility] Comment on above: Performed By: #### A 1C #### [facility] [address] [address] [address] Rosemary Ames XR CHEST 1 Von [...] TUAN LEWIS Date: 2022-03-13 18:59 Normal [facility] INSULINon 12-11-2021 Insulin 40.7 uIU/mL Critically high 2.6-24.9 [facility] Comment on above: Performed By: #### A 1C #### [facility] [address] [address] [address] Rosemary Ames BNPon 12-10-2021 NT PRO BNP <11.1 Normal <=450.0 [facility] Comment on above: Performed By: #### T 7, LIPID, TSH, CMADM, BNP, CMP #### [facility] [address] [address] [address] Rosemary Ames CARDIAC RY ADMITon 022 CK [Catalytic activity/Vol] 80 U/L Normal 26-192 [facility] Comment on above: Performed By: #### T 7, LIPID, TSH, CMADM, BNP, CMP #### [facility] [address] [place] [address] Dr. Rosemary Ames CK.MB [Mass/Vol] 0.56 ng/mL Normal <=3.60 [facility] Comment on above: Performed By: #### T 7, LIPID, TSH, CMADM, BNP, CMP #### [facility] [address] [place] [address] Dr. Rosemary Ames HSTROP 5.3 pg/mL Normal 4.0-51.3 [facility] Comment on above: Result Comment: CUT- OFF POINTS HAVE BEEN ESTABLISHED BASED ON THE FOURTH UNIVERSAL DEFINITIONS OF MYOCARDIAL INFARCTION. THE UPPER REFERENCE LIMIT (URL) OF TROPONIN, DEFINED THE 99TH PERCENTILE OF cTnI DISTRIBUTION IN A REFERENCE POPULATION, HAS BEEN CONFIRMED THE DECISION THRESHOLD FOR [place] DIAGNOSIS. Performed By: #### T 7, LIPID, TSH, CMADM, BNP, CMP #### [facility] [address] [place] [address] Dr. Rosemary Ames RADHA 26 ng/mL Normal 9-82 [facility] Comment on above: Performed By: #### T 7, LIPID, TSH, CMADM, BNP, CMP #### [facility] [address] [place] [address] Dr. Rosemary Ames CBC AUTO DIFFon 12-10-2021 BASO # 0.0 103/ul Normal 0.0-0.1 [facility] Comment on above: Performed By: #### E RUR #### [facility] [address] [place] [address] Dr. Rosemary Ames Basophils/100 WBC (Bld) 0.4 % Normal 0.2-2.0 [facility] Comment on above: Performed By: #### E RUR #### [facility] [address] [place] [address] Dr. Rosemary Ames EO # 0.1 103/ul Normal 0.0-0.7 [facility] Comment on above: Performed By: #### E RUR #### [facility] [address] [place] [address] Dr. Rosemary Ames Eosinophils/100 WBC (Bld) 1.0 % Normal 0.9-7.0 [facility] Comment on above: Performed By: #### E RUR #### [facility] [address] [place] [address] Dr. Rosemary Ames Erythrocyte distribution width (RBC) [Ratio] 13.7 % Normal 11.0-15.0 [facility] Comment on above: Performed By: #### E RUR #### [facility] [address] [place] [address] Dr. Rosemary Ames Hematocrit (Bld) [Volume fraction] 40.9 % Normal 36.0-48.0 [facility] Comment on above: Performed By: #### E RUR #### [facility] [address] [place] [address] Dr. Rosemary Ames Hemoglobin (Bld) [Mass/Vol] 13.0 g/dL Normal 12.0-16.0 [facility] Comment on above: Performed By: #### E RUR #### [facility] [address] [place] [address] Dr. Rosemary Ames IG # 0.03 10e3/ul Normal 0.00-0.03 [facility] Comment on above: Performed By: #### E RUR #### [facility] [address] [place] [address] Dr. Rosemary Ames IG % 0.4 % Normal 0.0-0.5 [facility] Comment on above: Performed By: #### E RUR #### [facility] [address] [place] [address] Dr. Rosemary Ames LYMPH # 2.4 103/ul Normal 1.2-3.8 [facility] Comment on above: Performed By: #### E RUR #### [facility] [address] [place] [address] Dr. Rosemary Ames Lymphocytes/100 WBC (Bld) 30.3 % Normal 20.5-60.0 [facility] Comment on above: Performed By: #### E RUR #### [facility] [address] [place] [address] Dr. Rosemary Ames MANUAL DIFF REQ NO Normal [facility] Comment on above: Performed By: #### E RUR #### [facility] [address] [place] [address] Dr. Rosemary Ames MCH (RBC) [Entitic mass] 25.8 pg Critically low 26.7-34.0 [facility] Comment on above: Performed By: #### E RUR #### [facility] [address] [place] [address] Dr. Rosemary Ames MCHC (RBC) [Mass/Vol] 31.8 g/dL Normal 29.9-35.2 [facility] Comment on above: Performed By: #### E RUR #### [facility] [address] [place] [address] Dr. Rosemary Ames MCV (RBC) [Entitic vol] 81.2 fL Normal 81.0-99.0 [facility] Comment on above: Performed By: #### E RUR #### [facility] [address] [place] [address] Dr. Rosemary Ames MONO # 0.5 103/ul Normal 0.3-0.8 [facility] Comment on above: Performed By: #### E RUR #### [facility] [address] [place] [address] Dr. Rosemary Ames Monocytes/100 WBC (Bld) 6.1 % Normal 1.7-12.0 [facility] Comment on above: Performed By: #### E RUR #### [facility] [address] [place] [address] Dr. Rosemary Ames NEUT # 5.0 103/ul Normal 1.4-6.5 [facility] Comment on above: Performed By: #### E RUR #### [facility] [address] [place] [address] Dr. Rosemary Ames Neutrophils/100 WBC (Bld) 61.8 % Normal 43.0-75.0 [facility] Comment on above: Performed By: #### E RUR #### [facility] [address] [address] [address] Rosemary Ames Platelet mean volume (Bld) [Entitic vol] 9.9 fL Normal 9.5-13.5 [facility] Comment on above: Performed By: #### E RUR #### [facility] [address] [place] [address] Dr. Rosemary Ames PLT 284 103/ul Normal 150-450 [facility] Comment on above: Performed By: #### E RUR #### [facility] [address] [address] [address] Rosemary Ames RBC 5.04 106/ul Normal 4.20-5.40 [facility] Comment on above: Performed By: #### E RUR #### [facility] [address] [place] [address] Dr. Rosemary Ames WBC 8.0 103/ul Normal 4.0-11.0 [facility] Comment on above: Performed By: #### E RUR #### [facility] [address] [place] [address] Dr. Rosemary Ames FREE THYROXINE INDEX T7on FTI 2.31 Normal 1.30-4.50 [facility] Comment on above: Performed By: #### T 7, LIPID, TSH, CMADM, BNP, CMP #### [facility] [address] [place] [address] Dr. Rosemary Ames T3U 30.0 % Normal 30.0-39.0 [facility] Comment on above: Performed By: #### T 7, LIPID, TSH, CMADM, BNP, CMP #### [facility] [address] [place] [address] Dr. Rosemary Ames T4 [Mass/Vol] 7.70 ug/dL Normal 4.80-13.90 [facility] Comment on above: Performed By: #### T 7, LIPID, TSH, CMADM, BNP, CMP #### [facility] [address] [place] [address] Dr. Rosemary Ames GLYCOHEMOGLOBIN A1Con 2021 ADA RECOMMENDATION SEE BELOW Normal [facility] Comment on above: Result Comment: ADA RECOMMENDED LIMIT 4.0 - 6.0 ADA THERAPEUTIC TARGET < 7.0 ACTION SUGGESTED > 7.0 Performed By: #### A 1C #### [facility] [address] [place] [address] Dr. Rosemary Ames Glucose [Mass/Vol] 243 mg/dL Normal [facility] Comment on above: Performed By: #### A 1C #### [facility] [address] [address] [address] Rosemary Ames HbA1c (Bld) [Mass fraction] 10.1 % Critically high 4.5-6.2 [facility] Comment on above: Performed By: #### A 1C #### [facility] [address] [place] [address] Dr. Rosemary Ames IRONon 12-10-2021 Iron [Mass/Vol] 29.0 ug/dL Critically low 50.0-170.0 [facility] Comment on above: Performed By: #### A 1C #### [facility] [address] [place] [address] Dr. Rosemary Ames LIPID PROFILEon 12-10-2021 CHOL-HDL RATIO NORM SEE BELOW Normal [facility] Comment on above: Result Comment: 3.3 - 4.4 LOW RISK 4.4 - 7.1 AVERAGE RISK 7.1 - 11.0 MODERATE RISK >11.0 HIGH RISK Performed By: #### T 7, LIPID, TSH, CMADM, BNP, CMP #### [facility] [address] [place] [address] Dr. Rosemary Ames Cholesterol [Mass/Vol] 184 mg/dL Normal <=200 [facility] Comment on above: Performed By: #### T 7, LIPID, TSH, CMADM, BNP, CMP #### [facility] [address] [place] [address] Dr. Rosemary Ames Cholesterol in HDL [Mass/Vol] 44 mg/dL Normal 40-60 [facility] Comment on above: Performed By: #### T 7, LIPID, TSH, CMADM, BNP, CMP #### [facility] [address] [address] [address] Rosemary Ames Cholesterol in LDL [Mass/Vol] 94.6 mg/dL Normal [facility] Comment on above: Performed By: #### T 7, LIPID, TSH, CMADM, BNP, CMP #### [facility] [address] [address] [address] Rosemary Ames Cholesterol.total/Chol esterol in HDL [Mass ratio] 4.2 {ratio} Normal [facility] Comment on above: Performed By: #### T 7, LIPID, TSH, CMADM, BNP, CMP #### [facility] [address] [address] [address] Rosemary Ames HDL NORMAL > or = 60 mg/dl - LOW CARDIOVASCULAR RISK <40 mg/dl - HIGH CARDIOVASCULAR RISK Normal [facility] Comment on above: Performed By: #### T 7, LIPID, TSH, CMADM, BNP, CMP #### [facility] [address] [address] [address] Rosemary Ames LDL CALC NORMAL SEE BELOW Normal [facility] Comment on above: Result Comment: <100 mg/dl OPTIMAL 100 - 129 mg/dl NEAR OR ABOVE OPTIMAL 130 - 159 mg/dl BORDERLINE HIGH 160 - 189 mg/dl HIGH >190 mg/dl VERY HIGH Performed By: #### T 7, LIPID, TSH, CMADM, BNP, CMP #### [facility] [id number] Rosemary Ames Triglyceride [Mass/Vol] 227 mg/dL Critically high <=150 [facility] Comment on above: Performed By: #### T 7, LIPID, TSH, CMADM, BNP, CMP #### [facility] [address] [address] [address] Rosemary Ames VLDL CALC 45.4 mg/dL Normal [facility] Comment on above: Performed By: #### T 7, LIPID, TSH, CMADM, BNP, CMP #### [facility] [address] [address] [address] Rosemary Ames PROF 14(COMP METB)on 022 Albumin [Mass/Vol] 4.1 g/dL Normal 3.4-5.0 [facility] Comment on above: Performed By: #### T 7, LIPID, TSH, CMADM, BNP, CMP #### [facility] [address] [place] [address] Dr. Rosemary Ames Albumin/Globulin [Mass ratio] 1.1 {ratio} Normal [facility] Comment on above: Performed By: #### T 7, LIPID, TSH, CMADM, BNP, CMP #### [facility] [address] [place] [address] Dr. Rosemary Ames ALP [Catalytic activity/Vol] 83 U/L Normal 46-116 [facility] Comment on above: Performed By: #### T 7, LIPID, TSH, CMADM, BNP, CMP #### [facility] [address] [place] [address] Dr. Rosemary Ames ALT [Catalytic activity/Vol] 166 U/L Critically high 14-59 [facility] Comment on above: Performed By: #### T 7, LIPID, TSH, CMADM, BNP, CMP #### [facility] [address] [place] [address] Dr. Rosemary Ames Anion gap [Moles/Vol] 13.9 mmol/L Normal [facility] Comment on above: Performed By: #### T 7, LIPID, TSH, CMADM, BNP, CMP #### [facility] [address] [place] [address] Dr. Rosemary Ames AST [Catalytic activity/Vol] 97 U/L Critically high 15-37 [facility] Comment on above: Performed By: #### T 7, LIPID, TSH, CMADM, BNP, CMP #### [facility] [address] [place] [address] Dr. Rosemary Ames Bilirubin [Mass/Vol] 0.7 mg/dL Normal 0.2-1.0 [facility] Comment on above: Performed By: #### T 7, LIPID, TSH, CMADM, BNP, CMP #### [facility] [address] [place] [address] Dr. Rosemary Ames Calcium [Mass/Vol] 9.2 mg/dL Normal 8.5-10.1 [facility] Comment on above: Performed By: #### T 7, LIPID, TSH, CMADM, BNP, CMP #### [facility] [address] [address] [address] Rosemary Ames Chloride [Moles/Vol] 101 mmol/L Normal 98-107 [facility] Comment on above: Performed By: #### T 7, LIPID, TSH, CMADM, BNP, CMP #### [facility] [address] [place] [address] Dr. Rosemary Ames CO2 [Moles/Vol] 27.5 mmol/L Normal 21.0-32.0 [facility] Comment on above: Performed By: #### T 7, LIPID, TSH, CMADM, BNP, CMP #### [facility] [address] [place] [address] Dr. Rosemary Ames Creatinine [Mass/Vol] 0.65 mg/dL Normal 0.55-1.02 [facility] Comment on above: Performed By: #### T 7, LIPID, TSH, CMADM, BNP, CMP #### [facility] [address] [place] [address] Dr. Rosemary Ames EGFR-AF PALAUAN >60 Normal >=60 [facility] Comment on above: Performed By: #### T 7, LIPID, TSH, CMADM, BNP, CMP #### [facility] [address] [place] [address] Dr. Rosemary Ames EGFR-NON AF PALAUAN >60 Normal >=60 [facility] Comment on above: Performed By: #### T 7, LIPID, TSH, CMADM, BNP, CMP #### [facility] [address] [place] [address] Dr. Rosemary Ames Globulin (S) [Mass/Vol] 3.8 g/dL Normal [facility] Comment on above: Performed By: #### T 7, LIPID, TSH, CMADM, BNP, CMP #### [facility] [address] [address] [address] Rosemary Ames Glucose [Mass/Vol] 299 mg/dL Critically high 74-106 [facility] Comment on above: Performed By: #### T 7, LIPID, TSH, CMADM, BNP, CMP #### [facility] [address] [place] [address] Dr. Rosemary Ames Potassium [Moles/Vol] 4.4 mmol/L Normal 3.5-5.1 [facility] Comment on above: Performed By: #### T 7, LIPID, TSH, CMADM, BNP, CMP #### [facility] [address] [place] [address] Dr. Rosemary Ames Protein [Mass/Vol] 7.9 g/dL Normal 6.4-8.2 [facility] Comment on above: Performed By: #### T 7, LIPID, TSH, CMADM, BNP, CMP #### [facility] [address] [place] [address] Dr. Rosemary Ames Sodium [Moles/Vol] 138 mmol/L Normal 136-145 [facility] Comment on above: Performed By: #### T 7, LIPID, TSH, CMADM, BNP, CMP #### [facility] [address] [place] [address] Dr. Rosemary Ames Urea nitrogen [Mass/Vol] 8.0 mg/dL Normal 7.0-18.0 [facility] Comment on above: Performed By: #### T 7, LIPID, TSH, CMADM, BNP, CMP #### [facility] [address] [place] [address] Dr. Rosemary Ames Urea nitrogen/Creatinine [Mass ratio] 12.3 mg/mg Normal [facility] Comment on above: Performed By: #### T 7, LIPID, TSH, CMADM, BNP, CMP #### [facility] [address] [place] [address] Dr. Rosemary Ames TSHon 12-10-2021 TSH 0.921 uIU/mL Normal 0.358-3.740 [facility] Comment on above: Performed By: #### T 7, LIPID, TSH, CMADM, BNP, CMP #### [facility] [address] [place] [address] Dr. Rosemary Ames MG MAMM DIAGNOSTIC 3D JESICA CA Don 11-29-2021 MG MAMM DIAGNOSTIC 3D JESICA CAD Patient: TESS ASHLEY. Exam Date: 11/29/2021 : 1995 Gender:F Ordering : DR CHAMP LAUREANO . Admission #: [id number] Family : Order #: [id number] CLICK HERE TO VIEW EXAM RADIOLOGY REPORT [...] breast cancer at age 41. LOCATION: [facility] BREAST COMPOSITION: Heterogeneously dense,which may obscure [...] M.D. on 11/29/2021 at 09:59 Normal [facility] US BREAST RIGHT LIMITEDon US BREAST RIGHT LIMITED Patient: TESS ASHLEY. Exam Date: 11/29/2021 : 1995 Gender:F Ordering : DR CHAMP LAUREANO . Admission #: [id number] Family : Order #: [id number] CLICK HERE TO VIEW EXAM RADIOLOGY REPORT [...] breast cancer at age 41. LOCATION: [facility] BREAST COMPOSITION: Heterogeneously dense,which may obscure [...] Biggs M.D. on 11/29/2021 at 09:59 Normal [facility] MRI BRAIN WO CONon MRI BRAIN [...] by: SEBLE BIGGS Date: 2021-09-13 12:13 Normal [facility] Glucose (Bld) [Mass/Vol]on 0 08-27-2021 Glucose [Mass/Vol] 188 mg/dL [facility] No Panel Informationon 08-27 Interpretation and review of laboratory results Abnormal [facility] POC Hemoglobin A1Con 022 HbA1c (Bld) [Mass fraction] 7.7 % Abnormal 4 - 6 % [facility] SEROLOGYOrdered By: Fabian echeverria on 08-24-2021 Beta hCG Ql Negative (08/24/21 11:29 PM) Normal [facility] Man Sero XR KNEE LT 4V or [...] SYLVESTER PRINGLE Date: 2021-08-15 16:18 Normal [facility] US KIDNEYS BLADDERon US KIDNEYS BLADDER [...] MAY PILLAI Date: 2021-06-13 10:16 Normal [facility] Testosterone Free and Total by LC-MS/MSon 02-04-2021 Sex Hormone Binding Globulin 11 nmol/L Low 30-135 [facility] Comment on above: Result Comment: REFE RENCE INTERVAL: Sex Hormone Binding Globulin Access complete set of age- and/or gender-specific reference intervals for this test in the [facility] Test Directory ([employer]). Testosterone, Free LC-MS/MS 9.1 pg/mL Critically high 0.8-7.4 [facility] Comment on above: Result Comment: To c [...] reference intervals for this test in the [facility] ([employer]). This test was developed and its performance characteristics determined by [facility]. It has not been cleared or approved by the [place] Food and Drug Administration. This test was performed in a CLIA certified laboratory and is intended for clinical purposes. Performed By: [facility] [address] [place] [id number] [employer] Consultant: Kiersten Jones MD Testosterone, LC-MS/MS 35 ng/dL Normal 9-55 [facility] Comment on above: Result Comment: Oscar rutherford Testosterone, Females 18 years and older Premenopausal 9-55 ng/dL Postmenopausal 5-32 ng/dL REFERENCE INTERVAL: Testosterone, LC-MS/MS Access complete set of age- and/or gender-specific reference intervals for this test in the [facility] Directory ([employer]). This test was developed and its performance characteristics determined by [facility]. It has not been cleared or approved by the US Food and Drug Administration. This test was performed in a CLIA certified laboratory and is intended for clinical purposes. Cortisol Daljit 01-31-2021 Cortisol AM 11.0 ug/dL Normal 6.2-19.4 [facility] Comment on above: Performed By: #### C AKSHAT #### [facility] [address] [place] [address] Social History Date Type Detail Facility Start: 05-07-2023 Tobacco use and exposure Smokeless tobacco non-user [facility] Start: 05-07-2023 End: 05-29-2023 Alcohol intake Ex-drinker (finding) [facility] Start: 04-23-2023 Tobacco smoking status [facility] Tobacco smoking consumption unknown [facility] [facility] Start: 04-17-2023 Alcohol intake Lifetime non-d jorge (finding) [facility] Start: 03-24-2023 End: 05-07-2023 Sex Assigned At Female [facility] Start: 03-24-2023 End: 05-07-2023 Tobacco smoking status CAIS Never smoked tobacco [facility] Start: 03-24-2023 End: 05-07-2023 History of Social function [facility] Start: 02-27-2023 Gender identity Identifies as female gender (finding) [facility] Start: 02-04-2023 [facility] Start: 08-24-2021 Tobacco smoking status Never [facility] Start: 08-17-2021 End: 08-27-2021 Exposure to SARS-CoV-2 (event) Not sure [facility] Start: 1994 Sex Assigned At Not on file [facility] Start: 1994 Sex Assigned At Female [facility] Vital Signs Date Time Vital Sign Value Performing Clinician Facility 08-22-2023 00:15-0400 Hourly Rounding Sg Naresh [facility] Comment on above: Result Comment: Patient discharged off u nit in wheelchair. 08-22-2023 00:00-0400 Diastolic blood pressure 47 mm[Hg] Sg [employer] [facility] 08-22-2023 00:00-0400 Heart rate 122 /min [facility] 08-22-2023 00:00-0400 Mean blood pressure 71 mm[Hg] Sg [employer] [facility] 08-22-2023 00:00-0400 Systolic blood pressure 120 mm[Hg] Sg Naresh [facility] 08-21-2023 23:45-0400 Blood Pressure Location [facility] 08-21-2023 23:45-0400 Diastolic blood pressure 52 mm[Hg] Sg [employer] [facility] 08-21-2023 23:45-0400 Heart rate 119 /min Sg [employer] [facility] 08-21-2023 23:45-0400 Mean blood pressure 78 mm[Hg] Sg [employer] [facility] 08-21-2023 23:45-0400 Respiratory rate 16 /min Sg [facility] 08-21-2023 23:45-0400 Systolic blood pressure 130 mm[Hg] Sg [facility] 08-21-2023 23:36-0400 Hourly Rounding Sg [facility] Comment on above: Result Comment: Patient sitting in bed. Call light within reach. 08-21-2023 23:30-0400 Body temperature 97.88 [degF] Sg [facility] 08-21-2023 23:30-0400 Diastolic blood pressure 69 mm[Hg] Sg [facility] 08-21-2023 23:30-0400 Heart rate 135 /min Sg [facility] 08-21-2023 23:30-0400 Mean blood pressure 82 mm[Hg] Sg [facility] 08-21-2023 23:30-0400 Respiratory rate 18 /min Sg [facility] 08-21-2023 23:30-0400 Systolic blood pressure 107 mm[Hg] Sg [facility] 08-21-2023 22:09-0400 Hourly [address] Sg [facility] Comment on above: Result Comment: Labetalol given for BP. 08-21-2023 21:30-0400 Body temperature 98.42 [degF] Sg [facility] 08-21-2023 20:20-0400 Diastolic blood pressure 91 mm[Hg] Tyler Summers [facility] 08-21-2023 20:20-0400 Heart rate 138 /min Tyler Melina [facility] 08-21-2023 20:20-0400 Mean blood pressure 110 mm[Hg] Tyler Melina [facility] 08-21-2023 20:20-0400 Respiratory rate 20 /min Tyler Melina [facility] 08-21-2023 20:20-0400 SaO2% (BldA) [Mass fraction] 97 % Tyler Melina [facility] 08-21-2023 20:20-0400 Systolic blood pressure 149 mm[Hg] Tyler Melina [facility] 08-21-2023 19:43-0400 Diastolic blood pressure 86 mm[Hg] Tyler Melina [facility] 08-21-2023 19:43-0400 Heart rate 141 /min Tyler Melina [facility] 08-21-2023 19:43-0400 Respiratory rate 18 /min Tyler Melina [facility] 08-21-2023 19:43-0400 Systolic blood pressure 158 mm[Hg] Tyler Melina [facility] 08-21-2023 19:22-0400 Body temperature 98.6 [degF] Tyler Melina [facility] 08-21-2023 19:22-0400 Diastolic blood pressure 103 mm[Hg] Tyler Melina [facility] 08-21-2023 19:22-0400 Heart rate 131 /min Tyler Melina [facility] 08-21-2023 19:22-0400 Mean blood pressure 118 mm[Hg] Tyler Melina [facility] 08-21-2023 19:22-0400 Respiratory rate 16 /min Tyler Melina [facility] 08-21-2023 19:22-0400 Systolic blood pressure 148 mm[Hg] Tyler Melina [facility] 08-21-2023 19:07-0400 Body temperature 99.14 [degF] Tyler Melina [facility] 08-21-2023 19:07-0400 Heart rate 140 /min Tyler Melina [facility] 08-21-2023 19:07-0400 Respiratory rate 22 /min Tyler Melina [facility] 05-07-2023 15:08-0500 Body height 152.4 cm Opal Levigan ANODE ADJUSTER-ASSISTANT MERCHANDISE MANAGER Work Phone: [facility] 05-07-2023 15:08-0500 Body mass index (BMI) [Ratio] 48.43 kg/m2 Opal Heath ANODE ADJUSTER-ASSISTANT MERCHANDISE MANAGER Work Phone: [facility] 05-07-2023 15:08-0500 Body weight 112.49 kg Opal Levigan ANODE ADJUSTER-ASSISTANT MERCHANDISE MANAGER Work Phone: [facility] 05-07-2023 15:08-0500 Diastolic blood pressure 64 mm[Hg] Opal Levigan ANODE ADJUSTER-ASSISTANT MERCHANDISE MANAGER [facility] 05-07-2023 15:08-0500 Heart rate 111 /min Opal Levigan ANODE ADJUSTER-ASSISTANT MERCHANDISE MANAGER Work Phone: [id number] 05-07-2023 15:08-0500 Systolic blood pressure 136 mm[Hg] Opal Levigan ANODE ADJUSTER-ASSISTANT MERCHANDISE MANAGER Work Phone: [facility] 05-07-2023 14:16-0500 Body mass index (BMI) [Ratio] 48.63 kg/m2 [facility] 05-07-2023 14:16-0500 Body weight 112.95 kg [facility] 04-17-2023 10:25-0500 Body mass index (BMI) [Ratio] 47.85 kg/m2 Mario Zoraida DO Work Phone: [facility] 04-17-2023 10:25-0500 Body weight 111.13 kg Mario Zoraida DO Work Phone: [facility] 04-17-2023 10:25-0500 Diastolic blood pressure 76 mm[Hg] Mario Zoraida DO Work Phone: [facility] 04-17-2023 10:25-0500 Systolic blood pressure 122 mm[Hg] Mario Zoraida DO Work Phone: [facility] 08-27-2021 11:09-0400 Body height 152.4 cm Gregorio Floyd MD Work Phone: [facility] 08-27-2021 11:09-0400 Body mass index (BMI) [Ratio] 46.68 kg/m2 Gregorio Floyd MD Work Phone: [facility] 08-27-2021 11:09-0400 Body weight 108.41 kg Gregorio Floyd MD Work Phone: [facility] 08-27-2021 11:09-0400 Diastolic blood pressure 86 mm[Hg] Gregorio Floyd MD Work Phone: [facility] 08-27-2021 11:09-0400 Heart rate 97 /min Gregorio Floyd MD Work Phone: [facility] 08-27-2021 11:09-0400 Systolic blood pressure 125 mm[Hg] Gregorio Floyd MD Work Phone: [facility] 08-25-2021 14:00-0400 Diastolic blood pressure 81 mm[Hg] Tyler Summers [facility] 08-25-2021 14:00-0400 Heart rate 85 /min Tyler Melina [facility] 08-25-2021 14:00-0400 Mean blood pressure 100 mm[Hg] Tyler Melina [facility] 08-25-2021 14:00-0400 Respiratory rate 16 /min Tyler Melina [facility] 08-25-2021 14:00-0400 SaO2% (BldA) [Mass fraction] 98 % Tyler Melina [facility] 08-25-2021 14:00-0400 Systolic blood pressure 138 mm[Hg] Tyler Melina [facility] 08-25-2021 01:00-0400 Diastolic blood pressure 85 mm[Hg] Tyler Melina [facility] 08-25-2021 01:00-0400 Heart rate 87 /min Tyler Melina [facility] 08-25-2021 01:00-0400 Respiratory rate 16 /min Tyler Melina [facility] 08-25-2021 01:00-0400 SaO2% (BldA) [Mass fraction] 98 % Tyler Melina [facility] 08-25-2021 01:00-0400 Systolic blood pressure 140 mm[Hg] Tyler Melina [facility] 08-25-2021 00:00-0400 Diastolic blood pressure 89 mm[Hg] Tyler Melina [facility] 08-25-2021 00:00-0400 Heart rate 95 /min Tyler Melina [facility] 08-25-2021 00:00-0400 SaO2% (BldA) [Mass fraction] 97 % Tyler Melina [facility] 08-25-2021 00:00-0400 Systolic blood pressure 149 mm[Hg] Tyler Melina [facility] 08-24-2021 22:50-0400 Body temperature 100.22 [degF] [facility] Melina [facility] Functional Status Date Assessment Result Facility 08-21-2023 Functional Status N/A [facility] 08-21-2023 Functional Status N/A [facility] 08-24-2021 Functional Status N/A [facility] Clinical Notes 08-24-2021 to 08-22-2023 Note Date & Type Note Facility 08-22-2023 Hospital Discharg e instructions Patient Education 08/21/2023 23:40:58 Vaginal Bleeding During , Third Trimester, Bnpj-hr-Oyir Vaginal Bleeding During , Third Trimester A [...] you with your normal activities. Medicines Take zohf-czv-sicfbwj and prescription medicines only as told by [...] provider. Document Revised: 11/16/2020 Document Reviewed: 11/16/2020 [employer] Patient Education 2022 [employer] 08/21/2023 23:40:58 Hypertension During , Djdn-sk-Uftv Hypertension During Hypertension is also called high [...] are best for you. General instructions Take fbqy-nfj-gctmvjr and prescription medicines only as told by [...] provider. Document Revised: 11/16/2020 Document Reviewed: 11/16/2020 [employer] Patient Education 2022 [employer] 08/21/2023 23:40:58 Form - Movement Counts Movement [...] provider. Document Revised: 10/14/2019 Document Reviewed: 10/14/2019 [employer] Patient Education 2022 [employer]. Follow Up Care 08/21/2023 21:25:46 With:Mario CONWAY Address: [address] , [place] [address] [facility] (1) When:08/22/2023 Comments:Call Dr if fever>100.5 F, heavy bleedingCall for severe abdominal painCall physician for heavy vaginal bleedingCall physician if symptoms worsenReturn for contractions closer, longer, harderReturn for decreased movementReturn if ruptured membranes or vaginal bleeding [facility] 08-22-2023 Note The following Pratibha t Education Materials have been given to the patient: [facility] 08-21-2023 Hospital Discharg e instructions [...] your health care provider. General instructions Take yujm-quf-qsclane and prescription medicines only as told by [...] provider. Document Revised: 05/25/2020 Document Reviewed: 05/25/2020 [employer] Patient Education 2022 [employer] Follow Up Care 08/21/2023 19:05:36 With:Roosevelt Maldonado Address: [address] [place] [id number] Business (1) When:08/24/2023 21:04:34 With:Champ Laureano Address: [address] [place] [id number] Business (1) When:Within 3 Day([address]) [facility] 08-21-2023 Evaluation + Plan note Extrac lincoln [...] Views Right XR Wrist 3+ Views Left [facility]03-21-2024 History of Present illness Narrative* Leana Burr MD - 05/29/2023 10:45 AM EDT [facility]- Diabetes Visit TELEMEDICINE VISIT: This is an audiovisual visit. This is done to assess the patient and to determine the best medical care. The patient was located at home in [place] and the provider was located at the medical office in [place]. The patient states they are not driving [...] of Delivery: 10/28/23. She is referred from [facility] who is managing along with us. She has had her diabetes education with [facility]. Please see media for full [...] within last year: none. Complications: History of TN, CHF: none Medications none Last Lipid panel drawn due after History of HTN: no Medications none History of Diabetic Retinopathy: unknown. Last seen Ambulance Mechanic unknown History of peripheral neuropathy: none Medications [...] History: Diagnosis Date Anxiety Depression Diabetes mellitus ([facility]) Disease of thyroid gland Hypertension History reviewed. [...] 10/28/23. She has had diabetes education with [facility]. We reviewed the following We have discussed the issue of insulin-dependent diabetes mellitus and the effect of in detail. There is an elevated risk of malformation of the order of 22% in those who have dbastjwqfkO3D 8.5 and higher. Patient aware that maternal [...] breakfast: try low sugar protein shakes or iraqi yogurt if appetite lower inthe AM. Complications/ [...] to foot injury. : I agree with [facility] recommendations for care. NSTs twice weekly with weekly WEI starting at 32 weeks. Growth US every 4 weeks starting at 28 weeks. Tentative delivery by 39 weeks, but will defer to MFM. Follow up in 1 week. Following at least once per trimester with [facility] as well. [facility] History of Present illness Narrative* Leana [...] of Delivery: 10/28/23. She is referred from [facility] who is managing along with us. She has had her diabetes education with [facility]. Please see media for full [...] within last year: none. Complications: History of TN, CHF: none Medications none Last Lipid panel drawn due after History of HTN: no Medications none History of Diabetic Retinopathy: unknown. Last seen Ambulance Mechanic unknown History of peripheral neuropathy: none Medications [...] History: Diagnosis Date Anxiety Depression Diabetes mellitus ([facility]) Disease of thyroid gland Hypertension No past [...] 10/28/23. She has had diabetes education with [facility]. We reviewed the following We have discussed the issue of insulin-dependent diabetes mellitus and the effect of in detail. There is an elevated risk of malformation of the order of 22% in those who have pyehuxwpmbH9Z 8.5 and higher. Patient aware that maternal [...] considerably as her current automated basal is mrjymbiih88 units but her basal rates were recently [...] breakfast: try low sugar protein shakes or iraqi yogurt if appetite lower inthe AM. Complications/ [...] with MFM as well. LEANA BURR MD [facility] Miscellaneous Notes* Telephone Encounter - Joann [...] and denied any questions. documented in [facility] Telephone encounter Note* Telephone Encounter - [...] meals. Verbalized understanding and denied any questions. [employer] Work Phone: [phone]) 992-127303-04-2024 Miscellaneous Notes* Telephone Encounter - Joann Walsh [...] week 05/20/23. Informed would call back after [facility] provider reviews. documented in this [facility]03[facility] Telephone encounter Note* Telephone Encounter - [...] week 05/20/23. Informed would call back after [facility] provider reviews. [employer] Work Phone: 1(434) 171-558002-28-2024 History of Present illness Narrative* Queta Marbin, [facility] - 05/07/2023 3:00 PM EST Headache/epigastric pain/blurry [...] results Have you been seen here at [facility] in a previous ? N/a Recent ER visits or hospitalizations? No Bring blood sugar log or meter with you today? (Please bring them with you for every visit at [facility]) yes Traveled outside the country in the past 6 month no Any concerns that you would like me to mention to the provider today? No * Opal Heath, ANODE ADJUSTER-ASSISTANT MERCHANDISE MANAGER - 05/07/2023 3:00 PM EST REASON FOR [...] no complaints. She is being followed at [facility] due to Type 2 DM. [...] TSH 1.05 04/01/2023 No results found for: [id number] No results found for: CREATININE , BUN [...] values to us weekly by e-mail to: [email or web address] or by fax to: [phone] 40 Minutes spent nlms-be-ydqz; more than 50% of time spent counseling and/or coordinating care withadditional time for record review and communication to referring provider. SABINA Uribe 05/07/23 1556 documented in this encounterClerm[facility]02-28-[facility]24 History of Present illness Narrative* Danyell [...] care for you: OB Provider Family Doctor Pole Truck Driver Name: Sebastian Name: No primary care provider on file. Name:[facility] City: City: City: Last time [...] demonstration Is there anything about your culture, hindu, or personal beliefs we need to know about to care for you: Other none Primary Language spoken: German [22] Primary Language for learning: German Are you currently in a relationship where you are physically hurt, threatened or made to fee afraid? [] Yes [x] No Knockup Worker needed? [] Yes [x] No Marital status/Living [...] If yes, where: On thge following scale, [place] the number, which describes your current level [...] yes, where and when: [x] [] Tess Gonzalezs was seen today and diabetes education was [...] Past Medical History: Diagnosis Date Diabetes mellitus ([facility]) Disease of thyroid gland Hypertension [...] Educational Level high school Family issues none Cultural/ethnic/lutheran influences none Exercise approved by MD? Current Exercise program walking Who prepares the meal pt Who purchase food at your home? pt Equipment use for cooking/food storage has all Food Assistance(Ex.WIC, Food [place]) has apt Dining out Yes 1 time per month Appetite/Appetite changes increased Weight History stable Do you have cats at home? Feeding Plans Breast Feeding If you have cats, who cleans the litter box? Cravings/Aversions/Pica none currently Nutrition Assessment Worksheet: Week/Weekend Food Recall Breakfast [place] Or cereal Or eggs Snack Lunch Grilled [...] Management Support Plan, patient chose to use [employer] to help manage her diabetes. Patient understands that we will follow up weekly with a phone call to review progress. Face to face time 40 minutes. documented in this encounterGrand Lake Joint [facility] HospitalPower Supply [facility], Inc[facility] [id number] Instructions* Patient Instructions* Danyell Ortiz RN - [...] 4 HOURS WHILE AWAKE documented in this [facility] [id number] Miscellaneous Notes* Telephone Encounter - Danyell Ortiz RN - 04/23/2023 12:23 PM EST Called pt due toher not coming to her appt today and she stated she had left a message that she needed to tammi due to not having transportation to her appt this morning. Her name given back to the schedulers to call and resched her. documented in this [facility]Cl[facility]02-14-[facility]24 Telephone encounter Note* Telephone Encounter - Danyell Ortiz RN - 04/23/2023 12:23 PM EST Called pt due toher not coming to her appt today and she stated she had left a message that she needed to tammi due to not having transportation to her appt this morning. Her name given back to the schedulers to call and resched her. [facility] [id number] History of Present illness Narrative* Mario Conway [...] Hand fracture, right Type 2 diabetes mellitus ([facility]) Family History Problem Relation Name [...] nursing note reviewed. Exam conducted with a city supervisor present. Vitals: Estimated body mass index is [...] of: Mario Conway DO documented in [facility] encounterSaint [facility] [id number] Instructions* Patient Instructions* Gregorio Floyd MD - [...] hold levothyroxine for now. documented in this [id number] History of Present illness Narrative* Gregorio Floyd [...] ALKPHOS, BILITOT No results found for: TSH, [id number], THYROIDAB No results found for: PTH, CALCIUM, JACQUES, PHOS Lab Results Component Value Date HGBA1C 7.7 (A) 08/27/2021 No results found for: LDLCALC, CHOL, HDL, TRIG, CHOLHDL No results found for: MICALBCREAT, [id number] No results found for: CPEPTIDE Assessment and [...] acanthosis nigricans indicate T2DM, but will get [id number] and c-peptide/glucose given the young age of [...] Due for foot exam no 08/2021; to sales counselor on foot care next visit CV [...] Gregorio Floyd MD Endocrinology documented in this [id number] Hospital Discharge instructions Patient Education 08/25/2021 02:09:26 [...] Ask your health care provider for a igyk-ou-cpbf plan for gradually returning to activities. Ask [...] your friends, family, a trusted colleague, and composition siding worker about your injury, symptoms, and restrictions. Have them watch for any new or worsening problems. General instructions Take kazn-hfw-tqzcekp and prescription medicines only as told by [...] 02/24/2006 Document Revised: 03/24/2019 Document Reviewed: 03/19/2019 [employer] Patient Education 2020 [employer]. 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 General instructions Take ejbw-est-snqtwdf and prescription medicines only as told by [...] 12/22/2007 Document Revised: 06/16/2019 Document Reviewed: 10/23/2016 [employer] Patient Education 2020 [employer]. Follow Up Care 08/24/2021 22:42:21 With:Champ Laureano Address: [address] [place], [place] [id number] Business (1) When:Within 3 Day(s) [facility]06-17-2022 Evaluation + Plan noteExtracted from: Title:ED Note [...] w/o Contrast CT Spine Cervical w/o Contrast [facility]* Diagnosis Thyroid disorder- Primary Unspecified disorder of thyroid Hair loss Unspecified alopecia [facility] Diagnosis Type 2 diabetes mellitus with hyperglycemia, unspecified whether web editor insulin use (HCC)- Primary Thyroid disorder Unspecified disorder of thyroid Hair loss Unspecified alopecia [facility]* Diagnosis Bleeding in early Unspecified hemorrhage in early , unspecified as to episode of care Follow-up exam Unspecified follow-up examination documented in this encounter [facility]* Diagnosis Type 2 diabetes mellitus in , second trimester- Primary Insulin pump in place Insulin pump status HTN in , chronic [facility] Diagnosis Type 2 diabetes mellitus in , second trimester- Primary Pre-existing type 2 diabetes mellitus during in first trimester documented [facility]* Diagnosis Type 2 diabetes mellitus in , second trimester- Primary [facility]* Diagnosis Type 2 diabetes mellitus in , second trimester- Primary [facility]* Diagnosis Type 2 diabetes mellitus in , second trimester- Primary [facility]* Diagnosis Type 2 diabetes mellitus in , second trimester- Primary documented in this [facility] Narrative No data available for this section [facility]InstructionsNot on filedocumented in this encounter [facility]Not on filedocumented in this encounter [facility] SystemInstructionsNot on filedocumented in this encounter [facility]ructionsNot on filedocumented in this encounter [facility] SystemInstructionsNot on filedocumented in this encounter [facility] SystemInstructionsNot on filedocumented in this encounter [facility] No data available for this section [facility] (narrative)* Consultation (Routine) - Pending Review Specialty Diagnoses / Procedures Referred By Contac t Referred To Contact Maternal and Medicine Diagnoses Type 2 diabetes mellitus in , second trimester Insulin pump in place Opal Heath APRN-CNP [address] [place] [address] Leana Burr MD [address], [address] [address] Referral ID Status Reason Start Date Expiration Date Visits Requested Visits Authorized [id number] Pending Review Specialty Services Required 05/07/2023 05/06/2024 1 [facility] Consultation (Routine) - Pending Review Specialty Diagnoses / Procedures Referred By Contac t Referred To Contact Endocrinology Diagnoses Type 2 diabetes mellitus in , second trimester Mary Guidry APRN-CNM [address], [address] [place] [id number] [facility] [address], [address] [address] Referral ID Status Reason Start Date Expiration Date Visits Requested Visits Authorized [id number] Pending Review Specialty Services Required 05/20/2023 05/19/2024 1 1 [facility] for visit Narrative* Consultation (Routine) - Pending Review Specialty Diagnoses / Procedures Referred By Contac t Referred To Contact Endocrinology Diagnoses Type 2 diabetes mellitus in , second trimester Mary Guidry APRN-CNM [address], [address] [place] [id number] Leana Burr MD [address], [address] [address] Referral ID Status Reason Start Date Expiration Date Visits Requested Visits Authorized [id number] Pending Review Specialty Services Required 05/20/2023 05/19/2024 1 1 [facility] Summary Purpose Family History No Family History [...] FoundDocuments on File Type Date Recorded 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 Expl 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 Advance Directives and Livin g Will 05/02/2021 12:00 AM Reason for Referral Specialty Diagnoses / Procedures Referred By Contac t Referred To Contact Endocrinology Diagnoses Thyroid disorder Hair loss Champ Laureano MD [address] [facility] [place] [address] [place] [address] Gregorio Floyd MD [address] [place] [id number] Referral ID Status Reason Start Date Expiration Date Visits Requested Visits Authorized [id number] Authorized Specialty Services Required/Pat ient's Best Interest 05/04/2021 05/04/2022 1 1 Specialty Diagnoses / Procedures Referred By Contac t Referred To Contact Maternal and Medicine Diagnoses Type 2 diabetes mellitus in , second trimester Procedures [facility] with or without consult Opal Heath, ANODE ADJUSTER-ASSISTANT MERCHANDISE MANAGER [address] [place] [address] [facility] [address] [place] [address] Referral ID Status Reason Start Date Expiration Date V isits Requested Visits Authorized [id number] Pending Review 05/08/2023 05/07/2024 1 1 Additional Source Comments INFORMATION SOURCE (unrecogn ized section and content) DATE CREATED AUTHOR 02/06/2021 [facility] DATE CREATED AUTHOR AUTHOR'S ORGANIZ ATION 08/27/2021 [facility] DATE CREATED AUTHOR AUTHOR'S ORGANIZ ATION 06/02/2022 [facility] DATE CREATED AUTHOR AUTHOR'S ORGANIZ ATION 08/14/2023 [facility] DATE CREATED AUTHOR AUTHOR'S ORGANIZ ATION 08/21/2023 [facility] DATE CREATED AUTHOR AUTHOR'S ORGANIZ ATION 08/23/2023 [facility] DATE CREATED AUTHOR AUTHOR'S ORGANIZ ATION 08/27/2023 [facility] DATE CREATED AUTHOR AUTHOR'S ORGANIZ ATION 09/02/2023 [facility] Care Teams (unrecognized sec tion and content) Park Activities Coordinator Relationship Specialty Start Date End Date Champ Laureano MD [address] [place] [address] PCP - General Family Medicine 05/02/21 Park Activities Coordinator Relationship Specialty Start Date End Date Champ Laureano MD [address] [place] [address] PCP - General Family Medicine 05/02/21 Park Activities Coordinator Relationship Specialty Start Date End Date Champ Laureano MD [address] [place] [address] PCP - General 03/13/23 Reason for Visit (unrecogniz ed section and content) Reason Comments Thyroid Problem Specialty Diagnoses / Procedures Referred By Contac t Referred To Contact Endocrinology Diagnoses Thyroid disorder Hair loss Champ Laureano MD [address] [place] [address] Gregorio Floyd MD [address] [place] [address] Referral ID Status Reason Start Date Expiration Date V isits Requested Visits Authorized [id number] Closed Specialty Services Required/Deanna ent's Best Interest 05/04/2021 05/04/2022 1 1 Reason Comments ER Follow-up Reason Comments [id number] Reason Comments Diabetes Specialty Diagnoses / Procedures Referred By Contmichelle t Referred To Contact Maternal and Medicine Diagnoses Pre-existing type 2 diabetes mellitus during in first trimester Mario Conway R, DO [address], [place] [address] [facility] [address] [place] [address] Referral ID Status Reason Start Date Expiration Date Visits Requested Visits Authorized [id number] Pending Review Specialty Services Required 04/15/2023 04/14/2024 [...] PRIMARY CLINICAL RECORDS. [facility] [employer] provides no warranty or guarantee of the accuracy or completeness of information in this document.
[2023-09-02 11:06] VITALS: BP 140/92; PULSE 123
[2023-09-02 11:07] VITALS: BP 140/75; PULSE 123; TEMP 35.8
== END 2023-09-02 13:01 | disposition home or self-care (01) ==
LOC: US 07:05 → FBC 11:03
PROVIDERS: PCP Family Medicine; Visit Provider Obstetrics & Gynecology
DX: O36.8130 Decreased fetal movements, third trimester, not applicable or unspecified (principal); Z3A.32 32 weeks gestation of pregnancy
CPT/HCPCS: 76818

== ENCOUNTER 2023-09-03 11:50 | Outpatient (OUT) | payer OTHER, SELFPAY ==
--- NOTE | 2023-09-03 11:58 | US_ITS ---
[address] [address] Patient Name: TESS CALVERT MRN: [facility]:[id number] date: 1995 Sex: F Assigned Patient Location: [facility] Current Patient Location: [facility] Accession/Order Number: [id number] Exam Date: 09/03/2023 12:02 Report Date: 09/03/2023 12:53 At the request of: PORSHA MOTA Procedure: US OB BPP w non-stress EXAMINATION: US OB BPP w non-stress HISTORY: Decreased movement COMPARISON: No relevant comparison available. TECHNIQUE: Ultrasound biophysical profile was performed in the radiology department. FINDINGS: BREATHING MOVEMENTS: 2 GROSS BODY MOVEMENTS: 2 TONE: 2 QUALITATIVE AMNIOTIC FLUID VOLUME: 2 PRESENTATION: CEPHALIC HEART RATE: 138.46 bpm AMNIOTIC FLUID VOLUME: 13.8 cm GESTATIONAL AGE: 32 weeks 1 day US/US OB BPP w non-stress IMPRESSION: Total biophysical profile score: 8 Electronically authenticated by: MAY PILLAI Date: 09/03/2023 12:53
--- OUTSIDE RECORDS SUMMARY | 2023-09-03 12:05 | XMS_ITS ---
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 Name Role Phone Ray FLOWERS, Champ Primary Care Provider Champ Laureano Primary Care Physician Champ Laureano MD Primary Care Provider CHAMP LAUREANO Admitting Unavailable COLLINSYCHAMP Primary Care [...] Unavailable HAY ., DR MARTINEZ Consulting Unavailable TAUN LEWIS Consulting Unavailable HOY ., DR OAKES [...] Unavailable HOY ., DR OAKES Admitting Unavailable [place], DR MAY Silverman Consulting Unavailable CRYSTAL PENG [...] Start: 08-21-2023 End: 08-22-2023 ambulatory Sg Infante Facility:[facility] Start: 08-21-2023 End: 08-22-2023 OB Triage Sg Infante [facility] Start: 08-21-2023 End: 08-21-2023 Emergency department patient visit Tylre [facility] Start: 08-20-2023 End: 08-20-2023 ambulatory SG OLIVERA [facility] Start: 08-13-2023 End: 08-13-2023 ambulatory [facility] Start: 08-11-2023 End: 08-11-2023 ambulatory MARIO ZORAIDA Not Available Start: 08-05-2023 End: 08-05-2023 ambulatory MARIO ZORAIDA Not Available Start: 07-29-2023 End: 07-29-2023 ambulatory [facility] Start: 07-28-2023 End: 07-28-2023 ambulatory MARIO ZORAIDA Not Available Start: 07-23-2023 End: 07-23-2023 ambulatory [facility] Start: 07-22-2023 End: 07-22-2023 ambulatory GLENDA CAM [facility] Start: 07-14-2023 End: 07-14-2023 ambulatory MARIO ZORAIDA Not Available Start: 07-10-2023 End: 07-10-2023 ambulatory LEANA [facility] Start: 06-30-2023 End: 06-30-2023 ambulatory MARIO ZORAIDA Not Available Start: 06-30-2023 End: 06-30-2023 ambulatory LEANA [facility] Start: 06-23-2023 End: 06-23-2023 [facility] Start: 06-23-2023 End: 06-23-2023 ambulatory LEANA [facility] Start: 06-11-2023 End: 06-11-2023 [facility] Start: 06-10-2023 End: 06-10-2023 ambulatory MARIO ZORAIDA Not Available Start: 06-09-2023 Orders Only Leana franco MD Work Phone: [facility] Start: 06-04-2023 Orders Only Leana franco MD Work Phone: [facility] Comment on above: Type 2 diabetes naz itus in , second trimester (Primary Dx) Start: 05-29-2023 End: 05-29-2023 ambulatory MARIO ZORAIDA Not Available Start: 05-29-2023 End: 05-29-2023 Office outpatient visit 25 minutes Leana Burr MD Work Phone: [facility] Comment on above: Type 2 diabetes naz itus in , second trimester (Primary Dx) Start: 05-29-2023 End: 05-29-2023 ambulatory LEANA [facility] Start: 05-20-2023 End: 05-20-2023 Orders Only Mary Guidry IT PROFESSIONAL-CNM Work Phone: [facility] Comment on above: Type 2 diabetes naz itus in , second trimester (Primary Dx) Start: 05-20-2023 End: 05-20-2023 Office outpatient new 45 minutes Leana Burr MD Work Phone: [facility] Comment on above: Type 2 diabetes naz itus in , second trimester (Primary Dx) Start: 05-13-2023 Telephone encounter Joann pastrana RN Work Phone: [facility] Start: 05-12-2023 Telephone encounter Joann pastrana RN Work Phone: [facility] Start: 05-12-2023 End: 05-12-2023 ambulatory SHWETHA WALTON Not Available Start: 05-08-2023 Orders Only Queta Zazueta [facility] r[facility]- Medicine at [facility] Comment on above: Type 2 diabetes naz itus in , second trimester (Primary Dx) Start: 05-07-2023 End: 05-07-2023 Office outpatient visit 25 minutes Opal Heath IT PROFESSIONAL-RESIDENTIAL FRAMING CARPENTER Work Phone: [facility] Comment on above: Type 2 diabetes nza itus in , second trimester (Primary Dx); Insulin pump in place; HTN in , chronic Start: 05-07-2023 End: 05-07-[address] Work Phone: [facility] Comment on above: Type 2 diabetes naz itus in , second trimester (Primary Dx); Pre-existing type 2 diabetes mellitus during in first trimester Start: 04-23-2023 Chart abstracting Opal falk IT PROFESSIONAL-RESIDENTIAL FRAMING CARPENTER Work Phone: [facility] Start: 04-23-2023 Telephone encounter Danyell Ortiz RN Ak ternal- [facility] at [facility] Start: 04-17-2023 End: 04-17-2023 Office outpatient [...] Start: 08-27-2021 End: 08-27-2021 ambulatory CHAMP LAUREANO [facility] Start: 08-27-2021 End: 08-27-2021 Office outpatient new 60 minutes Champ Laureano MD Work Phone: [facility] Comment on above: Type 2 diabetes naz itus with hyperglycemia, unspecified whether pulley worker insulin use (HCC) (Primary Dx); Thyroid disorder; Hair loss Start: 08-24-2021 End: 08-25-2021 Emergency department patient visit Tyler Summers [facility] Start: 08-15-2021 End: 08-15-2021 ambulatory GREGORY FAN . Facility:[facility] Start: 06-13-2021 End: 06-14-[address] CHAMP LAUREANO . Facility:[facility] Start: 05-04-2021 Transcribe Orders Champ Laureano MD Work Phone: [facility] Comment on above: Thyroid disorder (Pr imary Dx); Hair loss Medical Equipment Procedure Code Equipment Code Equipment Origin al Text Equipment Identifier Dates 1 each by Other route if needed [id number] Start: 03-11-2023 Use a new needle with each injection [id number] Start: 05-07-2023 Medications Current Medications Medication Drug Class(es) Dates Sig (Normalized) Sig (Original) acetaminophen 325 mg / HYDROcodone bitartrate 5 mg oral tablet (3 sources) Opioid Agonist Start: 07-03-2020 [place] 325 mg-5 mg oral tablet 1 tab(s), [...] (Reorder) Payers Date Payer Category Payer Unknown [id number] 2019 Medicaid [id number] 1994 Unknown [id number] 2.16. 840.1.151313.3.579.2.903 1994 Unknown [id number] 2.16.84 0.1.338174.3.579.2.593 1994 Unknown [id number] 2.16.84 0.1.245775.3.579.2.593 1994 Unknown [id number] 2.16.84 0.1.589545.3.579.2.593 1994 Unknown [id number] 2.16.84 0.1.760039.3.579.2.593 1994 Unknown [id number] 2.16.84 0.1.049637.3.579.2.593 1994 Unknown [id number] 2.16.84 0.1.934548.3.579.2.593 1994 Unknown [id number] 2.16.84 0.1.179595.3.579.2.593 1994 Unknown [id number] 2.16.84 0.1.335436.3.579.2.593 1994 Unknown [id number] 2.16.84 0.1.772129.3.579.2.593 1994 Unknown [id number] 2.16.84 0.1.771919.3.579.2.593 1994 Unknown [id number] 2.16.84 0.1.226518.3.579.2.593 1994 Unknown [id number] 2.16.84 0.1.869826.3.579.2.593 1994 Unknown [id number] 2.16.84 0.1.806589.3.579.2.593 1994 Unknown [id number] 2.16.8 40.1.201597.3.579.2.128 1994 Unknown [id number] 2.16.8 40.1.915774.3.579.2.1285 1994 Unknown [id number] 2.16.8 40.1.429535.3.579.2.128 1994 Unknown [id number] 2.16.8 40.1.147703.3.579.2.1285 1994 Unknown [id number] 2.16.8 40.1.598839.3.579.2.1285 1994 Unknown [id number] 2.16.8 40.1.934198.3.579.2.1285 1994 Unknown [id number] 2.16.8 40.1.788589.3.579.2.128 1994 Unknown [id number] 2.16.8 40.1.206871.3.579.2.1286 1994 Unknown [id number] 2.16.8 40.1.349631.3.579.2.1285 1994 Unknown [id number] 2.16.8 40.1.513160.3.579.2.1285 1994 Unknown [id number] 2.16.8 40.1.179374.3.579.2.1285 1994 Unknown [id number] 2.16.8 40.1.622597.3.579.2.1285 1994 Unknown [id number] 2.16.8 40.1.684380.3.579.2.1285 1994 Unknown [id number] 2.16.8 40.1.357175.3.579.2.1285 1994 Unknown [id number] 2.16.8 40.1.496884.3.579.2.1285 1994 Unknown [id number] 2.16.8 40.1.689096.3.579.2.1285 1994 Unknown [id number] 2.16.8 40.1.629863.3.579.2.7 1994 Unknown [id number] 2.16.8 40.1.462034.3.579.2.7 1994 Unknown [id number] 2.16.8 40.1.374200.3.579.2.727 1994 Unknown [id number] 2.16.8 40.1.632113.3.579.2.727 1994 Unknown [id number] 2.16.8 40.1.002788.3.579.2.727 1994 Unknown [id number] 2.16.84 0.1.127587.3.579.2.1258 1994 Unknown [id number] 2.16.84 0.1.021348.3.579.2.1258 1994 Unknown [id number] 2.16.84 0.1.502691.3.579.2.1259 1994 Unknown [id number] 2.16.84 0.1.845972.3.579.2.1258 1994 Unknown [id number] 2.16.84 0.1.934928.3.579.2.9 1994 Unknown [id number] 2.16.84 0.1.442014.3.579.2.1258 1994 Unknown [id number] 2.16.84 0.1.536289.3.579.2.1258 1994 Unknown [id number] 2.16.84 0.1.474087.3.579.2.1258 1994 Unknown [id number] 2.16.84 0.1.992593.3.579.2.1258 1994 Unknown [id number] 2.16.84 0.1.157637.3.579.2.1258 1994 Unknown [id number] 2.16.84 0.1.135467.3.579.2.1258 1994 Unknown [id number] 2.16.84 0.1.658628.3.579.2.1258 1994 Unknown [id number] 2.16.84 0.1.193072.3.579.2.1258 1994 Unknown [id number] 2.16.840 .1.748616.3.579.2.1258 1994 Unknown [id number] 2.16.8 40.1.753299.3.579.2.727 1960 Medicaid [id number] 1959 Unknown [id number] 1959 Unknown [id number] 1959 Unknown [id number] Plan of Treatment Date Care Activity Detail Author Start: 05-11-2026 Screening for malign ant neoplasm of cervix Pap Smear [facility] Start: 05-28-2024 Tobacco Screening Tobacco Screening [facility] Start: 05-07-2024 Adult BMI Screening Adult BMI Screen ing [facility] Start: 05-07-2024 Tobacco Screening Tobacco Screening [facility] Start: 05-07-2024 End: 05-07-2024 US MFM with or without consult US MFM with or without consult Imaging Routine Type 2 diabetes mellitus in , second trimester Expected: 05/07/2024 (Approximate), Expires: 05/07/2024 [facility] Work Phone: Comment on above: Expected: 05/07/2024 (Approximate), Expires: 05/07/2024 Start: 11-09-2023 Influenza vaccination Influenza Vacc ine [facility] Start: 06-11-2023 End: 06-11-2023 Patient encounter procedure 06/11/2023 1:00 PM EDT Appointment [facility] [address] [place] [address] [facility] Start: 06-10-2023 End: 06-10-2023 Patient encounter procedure 06/10/2023 3:00 PM EDT Office Visit [facility] [address] [place] [address] Leana Burr MD [facility] [place] [address] [facility] Start: 06-04-2023 End: 06-04-2023 Patient encounter procedure 06/04/2023 10:45 AM EDT Office Visit [facility] [address] [place] [address] Leana Burr MD [address] [place] [address] [facility] Start: 05-29-2023 End: 05-29-2023 Patient encounter procedure 05/29/2023 10:45 AM EDT Office Visit [facility] [address] [place] [address] Leana Burr MD [address] [place] [address] [facility] Start: 05-20-2023 End: 05-20-2023 Telemedicine consultation with patient 05/20/2023 8:00 AM EDT Telemedicine [facility] [address] [place] [phone] Leana Burr MD [address] [facility] [facility] [place] [address] [facility] Start: 05-12-2023 End: 05-12-2023 Patient encounter procedure 05/12/2023 8:30 AM EST Routine [facility] [address] [place] [address] Shwetha Walton PA [address] [place] [address] [facility] Start: 05-07-2023 End: 05-07-2023 Patient encounter procedure 05/07/2023 3:00 PM EST Office Visit [facility] [address] [place] [phone] Opal Heath, IT PROFESSIONAL-RESIDENTIAL FRAMING CARPENTER [address] [place] [address] [facility] Start: 05-07-2023 End: 05-07-2023 ambulatory 05/07/2023 1:00 PM EST Support Visit [facility] [address] [place] [phone] Shital Chen, RD [address] [place] [address] [facility] Start: 11-08-2022 Influenza vaccination Influenza Vacc ine [facility] Start: 11-27-2021 End: 11-27-2021 Patient encounter procedure 11/27/2021 Office Visit Endocrinology Gregorio Floyd MD [address] [place] [address] [facility] Start: 11-27-2021 Hemoglobin A1c measurement A1C [facility] Start: 11-08-2021 Influenza vaccination Sequenti al Influenza Vaccine (Season Ended) [facility] Start: 06-25-2021 End: 06-25-2021 Patient encounter procedure 06/25/2021 Office Visit Endocrinology Gregorio Floyd MD [address] [place] [address] [facility] Start: 11-08-2020 Influenza vaccination Sequenti al Influenza Vaccine (#1) [facility] Start: 11-14-2015 Screening for malign ant neoplasm of cervix Pap Smear [facility] Start: 2013 DTaP,Tdap and Td Vaccines (1 - Tdap) DTaP,Tdap and Td Vaccines (1 - Tdap) [facility] Start: 2012 Adult BMI Follow Up Plan Adult BMI Follow Up Plan [facility] Start: 2012 Adult BMI Screening Adult BMI Screen ing [facility] Start: 2012 Diabetic foot examination Diabetic Foot Exam [facility] Start: 2012 Hepatitis C screening Hepatitis C Sc reening [facility] Start: 2009 HIV screening HIV Screening [facility] Start: 2006 Depression screening using PHQ-9 (Patient Health Questionnaire 9) score [facility] Start: 2006 Tobacco Screening Tobacco Screening [facility] Start: 2005 DTaP,Tdap and Td Vaccines (5 - Tdap) DTaP,Tdap and Td Vaccines (5 - Tdap) [facility] Start: 2004 Diabetic foot examination Foot Exam [facility] Start: 2004 Microalbumin measurement, urine, quantitative Urine Microalbumin [facility] Start: 2004 Ophthalmic examinati on and evaluation Ophthalmology Exam [facility] Start: 2000 Pneumococcal Vaccine : Ped or At-Risk (1 - PCV) Pneumococcal Vaccine: Ped or At-Risk (1 - PCV) [facility] Start: 11-14-1999 COVID-19 Vaccine (#1) COVID-19 Vacci ne (#1) [facility] Start: 11-14-1999 COVID-19 Vaccine (1) COVID-19 Vaccin e (1) [facility] Start: 1997 History and physical examination, annual for health maintenance Wellness Visit [facility] Start: 1994 Glaucoma screening Diabetic Op hthalmology Exam [facility] Start: 1994 Screening for malign ant neoplasm of cervix Pap Smear [facility] Start: 1994 Tetanus vaccination Tetanus: Every 1 0yrs [facility] Start: 1994 Urine screening for protein Urine Microalbumin [facility] End: 08-27-2022 C peptide [Mass/volume] in Serum or Plasma C-peptide Lab Routine Type 2 diabetes mellitus with hyperglycemia, unspecified whether pulley worker insulin use (HCC) 1 Occurrences starting 08/27/2021 until 08/27/2022 [facility] Comment on above: 1 Occurrences starti ng 08/27/2021 until 08/27/2022 End: 05-19-2024 C-peptide C-peptide Lab Routine Type 2 diabetes mellitus in , second trimester 1 Occurrences starting 05/20/2023 until 05/19/2024 [facility] Comment on above: 1 Occurrences starti ng 05/20/2023 until 05/19/2024 End: 05-19-2024 GAD65 Ab assay GAD65 Ab assay Lab Routine Type 2 diabetes mellitus in , second trimester 1 Occurrences starting 05/20/2023 until 05/19/2024 [facility] Work Phone: Comment on above: 1 Occurrences starti ng 05/20/2023 until 05/19/2024 End: 08-27-2022 Glucose [Mass/volume] in Serum or Plasma Glucose Lab Routine Type 2 diabetes mellitus with hyperglycemia, unspecified whether half-way insulin use (HCC) 1 Occurrences starting 08/27/2021 until 08/27/2022 [facility] Comment on above: 1 Occurrences starti ng 08/27/2021 until 08/27/2022 End: 05-19-2024 Glucose [Mass/volume] in Serum or Plasma Glucose Lab Routine Type 2 diabetes mellitus in , second trimester 1 Occurrences starting 05/20/2023 until 05/19/2024 [facility] Comment on above: 1 Occurrences starti ng 05/20/2023 until 05/19/2024 Hepatic function 200 0 panel - Serum or Plasma Hepatic function panel Lab Routine Type 2 diabetes mellitus with hyperglycemia, unspecified whether half-way insulin use (HCC) Ordered: 08/27/2021 [facility] Comment on above: Ordered: 08/27/2021 End: 05-19-2024 Insulinoma Associated Antibody 2 Insulinoma Associated Antibody 2 Lab Routine Type 2 diabetes mellitus in , second trimester 1 Occurrences starting 05/20/2023 until 05/19/2024 [facility] Comment on above: 1 Occurrences starti ng 05/20/2023 until 05/19/2024 End: 08-27-2022 Islet cell antibody measurement Anti-Islet Cell (GAD65) Antibody Lab Routine Type 2 diabetes mellitus with hyperglycemia, unspecified whether pulley worker insulin use (HCC) 1 Occurrences starting 08/27/2021 until 08/27/2022 [facility] Comment on above: 1 Occurrences starti ng 08/27/2021 until 08/27/2022 End: 08-27-2022 Lipid 1996 panel - Serum or Plasma Lipid Panel Lab Routine Type 2 diabetes mellitus with hyperglycemia, unspecified whether pulley worker insulin use (HCC) 1 Occurrences starting 08/27/2021 until 08/27/2022 [facility] Comment on above: 1 Occurrences starti ng 08/27/2021 until 08/27/2022 Microalbumin measurement, urine, quantitative Microalbumin/Creatinine Ratio, UR Random Lab Routine Type 2 diabetes mellitus with hyperglycemia, unspecified whether half-way insulin use (HCC) Ordered: 08/27/2021 [facility] Work Phone: Comment on above: Ordered: [...] Phone: Start: 04-01-2023 Antibody screen [facility] Work Phone: Start: 04-01-2023 Bacteria identified [...] Range Facility Coding Summary.on 09-01-2023 Coding Summary. CVCZAhjx79EGi4aGt+PG hlYWQ+ND2IJMTgB54ibQ DefU6pG8FLMVgMSwweVQ JRACoLGsWeksZaRZ1euL NjZXJu IC8+YM6zYNPjYqkuhBGv a3Z2fTD2U51aym1wQSnu bTZ1KLWfVgOyoyhft6rr qNq1OQamNtgeSoMt SUNflI85OJW4mS24Pc29 kVDrwCCgr1qpzCb4KlUz YPIgNVX6hOleBXavd5Ny AEBeE33vqFRpc4G4 IGNvbGxhcHNlOyBlbXB0 xA1ePZlqklxpj4ckilql Tox1cg44yONak4H2lQW6 Y0KicdP9JJQgxWRw PjovzONYpF8imfhgk6yn ipdsOvCxJVQoWLf2XDt0 UBFhpCvnIsRuCA47WCY4 ZWZpfuBrT7IoERJr nMhfFxB6y9Z6Wv2LE6TP MlweZ3FYNZWOPDhlrOZ+ RJ17jm66A6KiKzwrXev1 JWQsHEQ1oDS5hZ5u EQSoVPhlh8C3uXY5P4Ud jwLmzz6wb8dlCTKrZJgd M85dxHSzp8E5AWThyNH1 CMVevLmpOcSnvV21 Oyc+QTPiqOagf4UoIorb j3cot9gswCx6DosdWPTl zpXahRczICO0z7LgCw9n DWYosGI9sJE1mQ3x MvJiBkL4UAgpR882OfTt bCAtSfvzR57cV8GdkZJ+ WMHfGxv4NKFsyPihIH9y C2WyBHCrovodeCHb iGhaDL6nOLArqfzfRXDu wR5hHTXlF6p3AoLqBqS7 XEnfB5VjXJTqfyxnUz58 xZ1xJzRxFmI8JUxc T6GiwiB0VEWuzAOvUTih RWE9C00vy0Q3ZCXbAEIs DLH1wXJ4oR8plRblcbkz bGVmdDsgdmVydGlj DPvhZJubJ163YHTbbXew PkNvZGluZyBEYXRlOiAg MDYvMjQvMjAyNDwvdGQ+ NQNzGVF9cOvbTOZk aLUbXFowAp0gzRguuMzl EQ8bLJPgmmnmDKUhsC2k MEUlrNIziOliXR7yICWz tgbdm651JdWmOJH8 LXKeuCHbT2YumX4bYhXx CRGeCGMrH8KjlPVfWZip R129HSifRvN4TNTbvnQt V9EkGCDrbUlcUeU8 n7Z7Ig8Mq0PtgovaK3Es cKWxVmYcMqrgXPp0O0Zi PjwvdHI+WC99SJYzYO73 QMb8ZFW6vRkgKUih DCLiG9UxqN8wSyDtJXNy ZGRkOyc+PHRhYmxlIHdp ZHRoPScxMDAlJyBzdHls MJ4bVp3nOYRvWQUb wMyqzCYqPhTbd7cyEOMp MQrcEZ2twFodI5SvmAO6 TWUhn4d0Nx24L86mV5Gk dXA+LDZxzWQ0eLF9 gZ5zAkGeSzJ9QNbcB598 AcFqpDJiBlvqy9ify8hf mNb0OmM6LKMxfhLysDjn NFL8z6NlWz47H17r IHdpZHRoPSIxNSUiIHZh hChuwq9ktM7qIf7+PGNv sGL5nRC0bE6qKlXsSvE3 NQqyF841WdUscMHb Tmuit9voe7pujRz7WcYq NSPfeuNwkUxrZBE3x7Tk Gr26J8PofBxjm0ZvByn0 fz17zFIji6W2pXB3 I3SyYJKzfjaspRZnuRfh AL6nVEJpmfrpJPDorT9o ZHZeN0b6XyIjIeP4ZJkh Q8WiucW0QZMrrTMd DSXunTSTmW5oeqfwf7sa ijjjFpFhBYHtSCy9FBr7 MDSrkLmnAvVbHUN5XtY7 XFC0yNPlaP5hkWxy dthglB4zYnq+TNI5bUSv sLXCAC9qVcmpiGV+PHRk DJW8wSmpIJrfWZXphO9z KPShO6m6QpXpMeF9 FRrnI0PdvbS3XDIqiFXn OBOdxHWTtU8upzsuq7qa exigKwCuOEPuXDy5IXz4 LWFsaWduOiBsZWZ0 WcB7IQV5vLEtiU3eaSwr uwlbcN2yRum+QmlydGgg WHX3AMu5Y7SqSzf0PISp zGvjWM7anXDmYLyw Pg3awXlgfNzrUF8vHAIw biudt224OiGtk8vbKTCw wQKbIDvdFRF5Z53pp0O9 MXZhJNWaHWY9xXC7 iX2dgGgstrugbBRboEbn jgGxkPytKEzxPVmdG360 TOWfcVboQoUwONb6T9Lb Bov1RFIqqOiqUM2w wBEwJTegSm0seOyszFio CY5oSIRyhjokj668EzEs p2fqNGWpqVJtZPntBGZ5 Y19sv9C6BAKwOARk FLB8nDK9mX4zdZlppwph bGVmdDsgdmVydGljYWwt YQivZ651WSYzfCgpNpMe mQz7Z3ScJsi5EWBa xLywQI9ilVAtBFfoQa6m eOovkRqcDM4wWMYigmif o189NgRja2qsUVWedUWx BSowHDX5I79dy8U3 DOPyKNXrGXD6dBH3bL2w bGlnbjogbGVmdDsgdmVy vHqqIXwvPJeuD500QXVd cDsnPlBhdGllbnQg KTbpZXd3L6EwWyrkkID+ RN41AYXiUJ82rYUnbMGr t0qluPg7VjAnYIVnCVY9 bZhbDRequ6KzQMCz S40zdIPqn4T5NJYmeVao oOQhBlPyeES2lI3jQKxr eyfnx0itfjjzSyzdj8xu bc72yL75X71tOWci ZHRoPSIzMCUiIHZhbGln bq1byJ6pRm2+PGNvbCB3 hSF7aE6wAUDiHdB1CAbv R405IrYzoLSrUddw k0tmm6jrgDm6EaC4OBVk pjNccSylUJA3e5VmEg35 V97zTAuiVOXqIWDgDEDl CNEkvCrdvn5unV7p Ii8+MLEbmJT9fDW4tM1m SwGnSbH5KCehM899YsAw gOYfNxhoR72gK3LdeEP+ JRPhCrj9OLHunUfa CH8wiUKrLXggKn8lVEN3 FlRrLhCfQCfuD6NjSLZe vyfcxlzeiWB7LBGaUVLm kP18Qa6teFpsVGGf qMQWwZ3rmwyfn8ftzwct UjOnOJKxQLg1SHn8JWXb pNwjKxRdRHL9GbY6SUA5 bFIbeA2skTwhssok dA1vI3CeTPPcwvmqCy73 qM7sCoJfVbW8FFhlMfo+ TjEJAF5XI9OzQSODJ6LQ KfPFFVPCLH04DS12 rEDxy2S8oPP4O9ZsIMNr iikwtswqfWZ9UCLiSPQp lG36fXQpIQlsXq8hg0V7 m252VSMcICUarV40 Pk0bxPatIYEroGOByP4s ibrme1mskwgiRiDmMUZh HZo2KVz8TMMznHfmYeXz HLF6NnR8BAF0qMNe kI1bcNqvyqbtbK6eUna+ GNnwTGUpWEh4LWudvHI+ HYJaNHF0lSuaOXfbHZEa fL1yRJRyU1u4AvZl JkM9GRguA7LzVHCitlhm Mo53eF7rRgIlObD0IKbe F5RbpdW3QZUkzOGnHJds TLW6M07oz0Z9WCGf BMIdAMI5eDB6sP8kqLio bjogbGVmdDsgdmVydGlj IAlhBErhP801BMLszHdf SyY6EYdpAEXcGM99 UA39wGTkn9I5iXX0A6Pc HZNpiptgicdsoVD6ISRt DMGuwE81pQQsHRtjPa7h x0Z8c433QQToWPYr kH07Py4rgIeqYYKrfGIB xP7mewitu6ockjyiHvWz ZWIuNVo8CYr4QLDvlDim WnZfJSE8OeJ4PPT2 jGFtyG0qwTkkkwcttV9h Oyc+ZzVzNZegXU55SB16 tJNsc0Z8wLE5U7DyUCHd lqedemtppYO5WDYv UGHmiH48dSPiHBbzYo1h d1Q5e131VHTsLVJovX20 Ns6yvHxhFEIroYJBqQ9a hwefu5syakxlJaTp PIOeZDr2IAl0EDNxeOzf XrJqQKY7MxE0DCG3bPCs zW7yoSzgzonhyP2eMpv+ U3BmWBAaQLgzLD71 TW57C0EaKitakTGuyIC+ PHRhYmxlIHdpZHRoPScx VLLsOaFmlRpkAR8hLc5t ZGVyLWNvbGxhcHNl PaPzc1dzSZDfFJrpZG0s iBzfA5KomIA3OEDaa6y7 Gf40X76jY5BfqDN+PGNv eCT7gND9cS2yBvCn QmU2IQxmD247OpKwaHQz Xhnjw1jkf7uwcBy0XjGn JERrnbVarJagQSQ3t6Ea Cb59H68sVIwvIYDe JKBwXAQsIPBmtDaxqu2a mD0iEg2+LPOcpHF1sNC7 rV8pWwLaXmN0MOtfN289 GbUmgSGqUvqkG05j V5CzyXH+KREtOti4EIHw gHznMX3ixJSlCChyIt0t IRZ0PwYlGyHlPRapF1Gu ZGRpbmctcmlnaHQ6 NXZrTFYhqI99Jr8yuWdw An4xDUGpHXF3UFQdaFEv M9IxxW1mMtXvSLTmVDMp B5AdjKGcZOhaH367 LFyeImO9DMPdkyYjK1Qd CXFrdNtvYtW9d5C3Df3V iJlwfYGoYX5bRjCoUDo2 K0WyGck7SCBbxZqa WT3uqUYfSHcfBq8bfCwt pWsrBB9eNKQoxuexa432 SgQlx0vgRSXgfKNxUGux IFB9C16xx4L9WLRp GXPnMDE0hSC5jO0tiZvo bjogbGVmdDsgdmVydGlj TEznLMayQ887DSOwdNsj VeBDSfc0I6SqMmk3 PDHlnFmtHJ9egYCxMBin Cz1pzGpkfYjjOH8zRQXj eyiiz300AjFta2myCXKc eMEmMWkiLIU3M35g z0K7EFKoCGOlYTV4pPC6 fZ5jtVwolnbzlVYzxJuv liVylVkrKYanYVidO276 RLKiqJgpIm0RWmc8 Z9FpSmj2UBFosDbuKV2e tOKmOMpmNe8xrCjdaJjb TC2xAXKxyinkx409IjGn u9zeZRZagKDfDDua KDS3G72aq8K1LECoOZGf XID6vTO6xN6dzPnxunyh bGVmdDsgdmVydGljYWwt PKjwZ842XBOcxAhx PlBheWVyOjwvdGQ+PC90 an66J8NbGlovUqr4VXAt YUP1zVV1mV9kOJIsREyl m9G0zKJ8O7DqalQi ft0al7buKJKnV (more content not included)... Normal [facility] Nursing Assessmenton 024 Nursing Assessment [id number] #[id number] Normal [facility] ABO/Rh History Checkon 08-21 ABO/Rh History Check Patient discharged prior Normal [facility] Comment on above: Performed By: #### [id number] #### [facility] Laboratory [address] [place] [id number] EMS Documentationon 08-22-19 24 EMS Documentation Please click on link to see report [facility] [facility] Comment on above: Result Comment: Miss ing Attachment - total size limit for all attachments exceeded [email or web address] Can be viewed in source system Inpatient Clinical Summaryon 08-22-2023 Inpatient Clinical Summary [address] [address] Clinical Summary Person Information Name: TESS MOORE [place] Age: 27 Years : 1995 Sex: Female PCP: Champ Laureano MD Marital Status: Phone: [phone] Race: White Ethnicity: Non- or Language: Colombian Visit Id: Visit Reason: Speciality: Acuity: Obs Enc Type: OB Triage Med Service: Obstetrics Arrival: 08/21/2023 21:24:21 Discharge: 08/22/2023 00:15:00 Dispo Type: Home (Routine DC) Address: [address] [place] [phone] Provider Notes: Diagnosis: Problems Active (01/20/2023) Sensation [...] This Visit Final Med List: acetaminophen-hydroc odone ([place] 325 mg-5 mg oral tablet) 1 Tablets [...] Referring Physician: Follow up: With: Address: When: [facility], [address] [place] [address] [place] [address] Business (1) In 1 day 08/22/2023 Comments: Call Dr if fever>100.5 F, heavy bleeding Call for severe abdominal pain Call physician for heavy vaginal bleeding Call physician if symptoms worsen Return for contractions closer, longer, harder Return for decreased movement Return if ruptured membranes or vaginal bleeding Patient Education Information: Vaginal Bleeding During , Third Trimester, Bpvg-jf-Fygh; Hypertension During , Wyrf-zd-Fqzp; Form - Movement Counts Normal [facility] Inpatient Patient Summaryon 08-22-2023 Inpatient Patient Summary [address] [address] Patient Discharge Instructions PERSON INFORMATION [...] Follow up: With: Address: When: Mario CONWAY Pending Sale To [facility], [address] [place] [address] , [place] [address] Business (1) In 1 day [...] with No Changes Other Medications acetaminophen-hydroc odone ([place] 325 mg-5 mg oral tablet) 1 Tablets [...] ? H (more content not included)... Normal [facility] Monitor Recordon 08-22-2023 Monitor Record [id number] 9#1.00TIFF Normal [facility] Monitor Record [id number] 5#1.00TIFF Normal [facility] Monitor Record [id number] 2#1.00TIFF Normal [facility] US Limitedon 08-21 US Limited Exam Date/Time: [...] Performed FHR (bpm) 167 Positioning Vertex Normal [facility] XR Ankle 3+ Views Righton XR Ankle [...] mGy = na DAP = na Normal [facility] XR Wrist 3+ Views Lefton XR Wrist [...] mGy = na DAP = na Normal [facility] ABO/Rhon 08-21-2023 ABO/Rh AB POS Invalid Interpretation Code [facility] Comment on above: Performed By: #### 2 [id number] #### [facility] Laboratory [address] [place] [address] ABSCon 08-21-2023 ABSC Gel Interp Negative Normal [facility] Comment on above: Performed By: #### 1 [id number] #### [facility] [address] [place] [address] BLOOD BANKOrdered By: Melissa Jimenez on 08-21-2023 ABO/Rh Interp AB POS Invalid Interpretation Code [facility] BB Subsection BLOOD BANKOrdered By: Rosario Garnica on 08-21-2023 ABSC Gel Interp Negative (08/21/23 7:30 PM) Normal [facility] BB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 Rosemary Ames SARS-CoV-2 (COVID-19) RNA EZEKIEL+probe Ql (Unsp spec) Negative Normal NEGATIVE [facility] [place] [facility] Comment on above: Performed By: #### T 7, LIPID, TSH, CMADM, BNP, CMP #### [facility] [address] [place], [place] [address] Dr. Rosemary Ames ECHOCARDIO M/2D COMPLETEon 0 04-10-2022 ECHOCARDIO M/2D COMPLETE Patient: TESS ASHLEY Exam Date: 04/10/2022 : 1995 Gender:F Ordering : DR CHAMP LAUREANO . Admission #: [id number] Family : Order #: [id number] CLICK HERE TO VIEW EXAM ECHOCARDIOGRAM REPORT [...] 04/10/2022 at 17:40 Normal [facility] CBC AUTO DIFFon 03-13-2022 BASO # 0.0 103/ul Normal 0.0-0.1 [facility] [place] [facility] Comment on above: Performed By: #### A 1C #### [facility] [address] [place] [address] [address] Rosemary Ames Basophils/100 WBC (Bld) 0.3 % Normal 0.2-2.0 [facility] [place] [facility] Comment on above: Performed By: #### A 1C #### [facility] [address] [place] [address] Dr. Rosemary Ames EO # 0.0 103/ul Normal 0.0-0.7 [facility] [place] [facility] Comment on above: Performed By: #### A 1C #### [facility] [address] [place] [address] [address] Rosemary Ames Eosinophils/100 WBC (Bld) 0.5 % Critically low 0.9-7.0 [facility] [place] [facility] Comment on above: Performed By: #### A 1C #### [facility] [address] [place] [address] Dr. Rosemary Ames Erythrocyte distribution width (RBC) [Ratio] 14.5 % Normal 11.0-15.0 [facility] [place] [facility] Comment on above: Performed By: #### A 1C #### [facility] [address] [place] [address] Dr. Rosemary Ames Hematocrit (Bld) [Volume fraction] 39.7 % Normal 36.0-48.0 [facility] [place] [facility] Comment on above: Performed By: #### A 1C #### [facility] [address] [place] [address] Dr. Rosemary Ames Hemoglobin (Bld) [Mass/Vol] 12.9 g/dL Normal 12.0-16.0 [facility] [place] [facility] Comment on above: Performed By: #### A 1C #### [facility] [address] [place] [address] Dr. Rosemary Ames IG # 0.03 10e3/ul Normal 0.00-0.03 [facility] [place] [facility] Comment on above: Performed By: #### A 1C #### [facility] [address] [place] [address] Dr. Rosemary Ames IG % 0.4 % Normal 0.0-0.5 [facility] [place] [facility] Comment on above: Performed By: #### A 1C #### [facility] [address] [place] [address] Dr. Rosemary Ames LYMPH # 0.5 103/ul Critically low 1.2-3.8 [facility] Comment on above: Performed By: #### A 1C #### [facility] [address] [place] [address] Dr. Rosemary Ames Lymphocytes/100 WBC (Bld) 6.6 % Critically low 20.5-60.0 [facility] [place] [facility] Comment on above: Performed By: #### A 1C #### [facility] [address] [place] [address] Dr. Rosemary Ames MANUAL DIFF REQ NO Normal [facility] Comment on above: Performed By: #### A 1C #### [facility] [address] [place] [address] Dr. Rosemary Ames MCH (RBC) [Entitic mass] 25.1 pg Critically low 26.7-34.0 [facility] [place] [facility] Comment on above: Performed By: #### A 1C #### [facility] [address] [place] [address] Dr. Rosemary Ames MCHC (RBC) [Mass/Vol] 32.5 g/dL Normal 29.9-35.2 [facility] [place] [facility] Comment on above: Performed By: #### A 1C #### [facility] [address] [place] [address] Dr. Rosemary Ames MCV (RBC) [Entitic vol] 77.2 fL Critically low 81.0-99.0 [facility] [place] [facility] Comment on above: Performed By: #### A 1C #### [facility] [address] [place] [address] Dr. Rosemary Ames MONO # 0.7 103/ul Normal 0.3-0.8 [facility] [place] [facility] Comment on above: Performed By: #### A 1C #### [facility] [address] [place] [address] Dr. Rosemary Ames Monocytes/100 WBC (Bld) 9.3 % Normal 1.7-12.0 [facility] [place] [facility] Comment on above: Performed By: #### A 1C #### [facility] [address] [place] [address] Dr. Rosemary Ames NEUT # 6.2 103/ul Normal 1.4-6.5 [facility] [place] [facility] Comment on above: Performed By: #### A 1C #### [facility] [address] [place] [address] Dr. Rosemary Ames Neutrophils/100 WBC (Bld) 82.9 % Critically high 43.0-75.0 [facility] [place] [facility] Comment on above: Performed By: #### A 1C #### [facility] [address] [place] [address] Dr. Rosemary Ames Platelet mean volume (Bld) [Entitic vol] 9.8 fL Normal 9.5-13.5 [facility] [place] [facility] Comment on above: Performed By: #### A 1C #### [facility] [address] [place] [address] Dr. Rosemary Ames PLT 246 103/ul Normal 150-450 [facility] Comment on above: Performed By: #### A 1C #### [facility] [address] [place] [address] Dr. Rosemary Ames RBC 5.14 106/ul Normal 4.20-5.40 [facility] [place] [facility] Comment on above: Performed By: #### A 1C #### [facility] [address] [place] [address] Dr. Rosemary Ames WBC 7.4 103/ul Normal 4.0-11.0 [facility] [place] [facility] Comment on above: Performed By: #### A 1C #### [facility] [address] [place] [address] Dr. Rosemary Ames Covid-19 PCR ([facility])on SARS-CoV-2 (COVID-19) RNA EZEKIEL+probe Ql (Unsp spec) Not detected Normal NOT DETECTED [facility] Comment on above: Result Comment: When diagnostic [...] for this test is supported by the [place] of Health and Human Service's declaration that [...] By: #### A 1C #### [facility] [address] [place] [address] Dr. Rosemary Ames D-DIMERon 03-13-2022 D-DIMER 0.26 mg/L FEU Normal <=0.59 [facility] Comment on above: Performed By: #### T 7, LIPID, TSH, CMADM, BNP, CMP #### [facility] [address] [place] [address] Dr. Rosemary Ames D-DIMER COMMENTS SEE BELOW Normal [facility] Comment on above: Result Comment: Incr eases [...] TSH, CMADM, BNP, CMP #### [facility] [address] [place] [address] Dr. Rosemary Ames ER URINE PROFILEon 3 Bilirubin Ql (U) Negative Normal NEGATIVE [facility] Comment on above: Performed By: #### E RUR #### [facility] [address] [place] [address] Dr. Rosemary Ames Clarity (U) CLEAR Normal CLEAR [facility] [place] [facility] Comment on above: Performed By: #### E RUR #### [facility] [address] [place] [address] Dr. Rosemary Ames Color (U) LT. YELLOW Normal YELLOW [facility] [place] [facility] Comment on above: Performed By: #### E RUR #### [facility] [address] [place] [address] Dr. Rosemary MARTIN A micrscopic examination will be performed if indicated. Normal [facility] [place] [facility] Comment on above: Performed By: #### E RUR #### [facility] [address] [place] [address] Dr. Rosemary Ames Glucose Ql (U) Negative Normal NEGATIVE [facility] Comment on above: Performed By: #### E RUR #### [facility] [address] [place] [address] Dr. Rosemary Ames Hemoglobin Ql (U) Negative [facility] Comment on above: Performed By: #### E RUR #### [facility] [address] [place] [address] Dr. Rosemary Ames Ketones Ql (U) Negative Normal NEGATIVE [facility] Comment on above: Performed By: #### E RUR #### [facility] [address] [place] [address] Dr. Rosemary Ames LEUKOCYTES Negative Normal NEGATIVE [facility] [place] [facility] Comment on above: Performed By: #### E RUR #### [facility] [address] [place] [address] Dr. Rosemary Ames Nitrite Ql (U) Negative Normal NEGATIVE [facility] Comment on above: Performed By: #### E RUR #### [facility] [address] [place] [address] Dr. Rosemary Ames pH (U) 6.0 [pH] Normal 5-9 [facility] [place] [facility] Comment on above: Performed By: #### E RUR #### [facility] [address] [place] [address] Dr. Rosemary Ames SPEC GRAVITY 1.015 Normal 1.005-<=1.02 5 [facility] [place] [facility] Comment on above: Performed By: #### E RUR #### [facility] [address] [place] [address] Dr. Rosemary Ames UA PROTEIN Negative Normal NEGATIVE/ TRACE [facility] Comment on above: Performed By: #### E RUR #### [facility] [address] [place] [address] Dr. Rosemary Ames UR MICRO IND NOT INDICATED Normal [facility] Comment on above: Performed By: #### E RUR #### [facility] [address] [place] [address] Dr. Rosemary Ames Urobilinogen Qn (U) 0.2 {Vincent'U}/dL Normal 0.2 - 1. 0 [facility] [place] [facility] Comment on above: Performed By: #### E RUR #### [facility] [address] [place] [address] Dr. Rosemary Ames INFLUENZA A AND B AGon 03-13 [facility] SEE BELOW Normal [facility] Comment on above: Result Comment: Nega tive for Flu A protein angiten. Infection due to Flu A cannot be ruled out. Flu A angiten in the sample may be below the detection limit of the test. Performed By: #### E RUR #### [facility] [address] [place] [address] Dr. Rosemary Ames INFLUBNEGH SEE BELOW Normal [facility] [place] [facility] Comment on above: Result Comment: Nega tive for Flu B protein antigen. Infection due to Flu B cannot be ruled out. Flu B antigen in the sample may be below the detection limit of the test. Performed By: #### E RUR #### [facility] [address] [place] [address] Dr. Rosemary Ames INFLUENZA A AG Negative Normal NEGATIVE SEE COMMENT [facility] [place] [facility] Comment on above: Performed By: #### E RUR #### [facility] [address] [place] [address] Dr. Rosemary Ames INFLUENZA B AG Negative Normal NEGATIVE SEE COMMENT [facility] [place] [facility] Comment on above: Performed By: #### E RUR #### [facility] [address] [place] [address] [address] Rosemary Ames LACTATE/LACTIC ACIDon 2022 Lactate [Moles/Vol] 2.0 mmol/L Critically high 0.4-1.9 [facility] [place] [facility] Comment on above: Performed By: #### A 1C #### [facility] [address] [place] [address] Dr. Rosemary Ames LIPASEon 03-13-2022 Lipase [Catalytic activity/Vol] 79.0 U/L Normal 73.0-393.0 [facility] [place] [facility] Comment on above: Performed By: #### A 1C #### [facility] [address] [place] [address] Dr. Rosemary Ames PREG HCG QUALon 03-13-2022 , QUAL Negative Normal NEGATIVE [facility] Comment on above: Performed By: #### A 1C #### [facility] [address] [place] [address] Dr. Rosemary Ames PROF 14(COMP METB)on 023 Albumin [Mass/Vol] 4.1 g/dL Normal 3.4-5.0 [facility] Comment on above: Performed By: #### A 1C #### [facility] [address] [place] [address] Dr. Rosemary Ames Albumin/Globulin [Mass ratio] 1.1 {ratio} Normal [facility] [place] [facility] Comment on above: Performed By: #### A 1C #### [facility] [address] [place] [address] Dr. Rosemary Ames ALP [Catalytic activity/Vol] 77 U/L Normal 46-116 [facility] Comment on above: Performed By: #### A 1C #### [facility] [address] [place] [address] Dr. Rosemary Ames ALT [Catalytic activity/Vol] 149 U/L Critically high 14-59 [facility] Comment on above: Performed By: #### A 1C #### [facility] [address] [address] [address] Rosemary Ames Anion gap [Moles/Vol] 16.0 mmol/L Normal [facility] Comment on above: Performed By: #### A 1C #### [facility] [address] [address] [address] Rosemary Ames AST [Catalytic activity/Vol] 82 U/L Critically high 15-37 [facility] [place] [facility] Comment on above: Performed By: #### A 1C #### [facility] [address] [address] [address] Rosemary Ames Bilirubin [Mass/Vol] 1.0 mg/dL Normal 0.2-1.0 [facility] [place] [facility] Comment on above: Performed By: #### A 1C #### [facility] [address] [place] [address] [address] Rosemary Ames Calcium [Mass/Vol] 9.1 mg/dL Normal 8.5-10.1 [facility] Comment on above: Performed By: #### A 1C #### [facility] [address] [place] [address] [address] Rosemary Ames Chloride [Moles/Vol] 96 mmol/L Critically low 98-107 [facility] [place] [facility] Comment on above: Performed By: #### A 1C #### [facility] [address] [place] [address] [address] Rosemary Ames CO2 [Moles/Vol] 25.7 mmol/L Normal 21.0-32.0 [facility] Comment on above: Performed By: #### A 1C #### [facility] [address] [place] [address] [address] Rosemary Ames Creatinine [Mass/Vol] 0.78 mg/dL Normal 0.55-1.02 [facility] [place] [facility] Comment on above: Performed By: #### A 1C #### [facility] [address] [address] [address] Rosemary Ames EGFR-AF SENE[place]ESE >60 Normal >=60 [facility] Comment on above: Performed By: #### A 1C #### [facility] [address] [address] [address] Rosemary Ames EGFR-NON AF SENEGALESE >60 Normal >=60 [facility] [place] [facility] Comment on above: Performed By: #### A 1C #### [facility] [address] [address] [address] Rosemary Ames Globulin (S) [Mass/Vol] 3.9 g/dL Normal [facility] [place] [facility] Comment on above: Performed By: #### A 1C #### [facility] [address] [address] [address] Rosemary Ames Glucose [Mass/Vol] 190 mg/dL Critically high 74-106 [facility] Comment on above: Performed By: #### A 1C #### [facility] [address] [place] [address] Dr. Rosemary Ames Potassium [Moles/Vol] 3.7 mmol/L Normal 3.5-5.1 [facility] Comment on above: Performed By: #### A 1C #### [facility] [address] [place] [address] Dr. Rosemary Ames Protein [Mass/Vol] 8.0 g/dL Normal 6.4-8.2 [facility] Comment on above: Performed By: #### A 1C #### [facility] [address] [place] [address] Dr. Rosemary Ames Sodium [Moles/Vol] 134 mmol/L Critically low 136-145 [facility] Comment on above: Performed By: #### A 1C #### [facility] [address] [place] [address] Dr. Rosemary Ames Urea nitrogen [Mass/Vol] 9.0 mg/dL Normal 7.0-18.0 [facility] Comment on above: Performed By: #### A 1C #### [facility] [address] [place] [address] Dr. Rosemary Ames Urea nitrogen/Creatinine [Mass ratio] 11.5 mg/mg Normal [facility] Comment on above: Performed By: #### A 1C #### [facility] [address] [place] [address] Dr. Rosemary Ames TROPONIN, HIGH SENSITIVITYon 03-13-2022 HSTROP <4.0 Normal 4.0-51.3 [facility] Comment on above: Result Comment: CUT- OFF POINTS HAVE BEEN ESTABLISHED BASED ON THE FOURTH UNIVERSAL DEFINITIONS OF MYOCARDIAL INFARCTION. THE UPPER REFERENCE LIMIT (URL) OF TROPONIN, DEFINED THE 99TH PERCENTILE OF cTnI DISTRIBUTION IN A REFERENCE POPULATION, HAS BEEN CONFIRMED THE DECISION THRESHOLD FOR NV DIAGNOSIS. Previously reported as: 3.9 On 03/13/2022 18:24 By DM9 Performed By: #### A 1C #### [facility] [address] [address] [address] Rosemary Ames TSHon 03-13-2022 TSH 0.440 uIU/mL Normal 0.358-3.740 [facility] Comment on above: Performed By: #### A 1C #### [facility] [address] [address] [address] Rosemary Ames XR CHEST 1 Von [...] Date: 2022-03-13 18:59 Normal [facility] INSULINon 12-11-2021 Insulin 40.7 uIU/mL Critically high 2.6-24.9 [facility] Comment on above: Performed By: #### A 1C #### [facility] [address] [address] [address] Rosemary Ames BNPon 12-10-2021 NT PRO BNP <11.1 Normal <=450.0 [facility] Comment on above: Performed By: #### T 7, LIPID, TSH, CMADM, BNP, CMP #### [facility] [address] [address] [address] Rosemary Ames CARDIAC RY ADMITon 022 CK [Catalytic activity/Vol] 80 U/L Normal 26-192 [facility] Comment on above: Performed By: #### T 7, LIPID, TSH, CMADM, BNP, CMP #### [facility] [address] [place] [address] Dr. Rosemary Ames CK.MB [Mass/Vol] 0.56 ng/mL Normal <=3.60 [facility] Comment on above: Performed By: #### T 7, LIPID, TSH, CMADM, BNP, CMP #### [facility] [address] [place] [address] Dr. Rosemary Ames HSTROP 5.3 pg/mL Normal 4.0-51.3 [facility] Comment on above: Result Comment: CUT- OFF POINTS HAVE BEEN ESTABLISHED BASED ON THE FOURTH UNIVERSAL DEFINITIONS OF MYOCARDIAL INFARCTION. THE UPPER REFERENCE LIMIT (URL) OF TROPONIN, DEFINED THE 99TH PERCENTILE OF cTnI DISTRIBUTION IN A REFERENCE POPULATION, HAS BEEN CONFIRMED THE DECISION THRESHOLD FOR NV DIAGNOSIS. Performed By: #### T 7, LIPID, TSH, CMADM, BNP, CMP #### [facility] [address] [place] [address] Dr. Rosemary Ames RADHA 26 ng/mL Normal 9-82 [facility] Comment on above: Performed By: #### T 7, LIPID, TSH, CMADM, BNP, CMP #### [facility] [address] [place] [address] Dr. Rosemary Ames CBC AUTO DIFFon 12-10-2021 BASO # 0.0 103/ul Normal 0.0-0.1 [facility] Comment on above: Performed By: #### E RUR #### [facility] [address] [place] [address] Dr. Rosemary Ames Basophils/100 WBC (Bld) 0.4 % Normal 0.2-2.0 [facility] Comment on above: Performed By: #### E RUR #### [facility] [address] [place] [address] Dr. Rosemary Ames EO # 0.1 103/ul Normal 0.0-0.7 [facility] Comment on above: Performed By: #### E RUR #### [facility] [address] [place] [address] Dr. Rosemary Ames Eosinophils/100 WBC (Bld) 1.0 % Normal 0.9-7.0 [facility] Comment on above: Performed By: #### E RUR #### [facility] [address] [place] [address] Dr. Rosemary Ames Erythrocyte distribution width (RBC) [Ratio] 13.7 % Normal 11.0-15.0 [facility] Comment on above: Performed By: #### E RUR #### [facility] [address] [place] [address] Dr. Rosemary Ames Hematocrit (Bld) [Volume fraction] 40.9 % Normal 36.0-48.0 [facility] Comment on above: Performed By: #### E RUR #### [facility] [address] [place] [address] Dr. Rosemary Ames Hemoglobin (Bld) [Mass/Vol] 13.0 g/dL Normal 12.0-16.0 [facility] Comment on above: Performed By: #### E RUR #### [facility] [address] [place] [address] Dr. Rosemary Ames IG # 0.03 10e3/ul Normal 0.00-0.03 [facility] Comment on above: Performed By: #### E RUR #### [facility] [address] [place] [address] Dr. Rosemary Ames IG % 0.4 % Normal 0.0-0.5 [facility] Comment on above: Performed By: #### E RUR #### [facility] [address] [place] [address] Dr. Rosemary Ames LYMPH # 2.4 103/ul Normal 1.2-3.8 [facility] Comment on above: Performed By: #### E RUR #### [facility] [address] [place] [address] Dr. Rosemary Ames Lymphocytes/100 WBC (Bld) 30.3 % Normal 20.5-60.0 [facility] Comment on above: Performed By: #### E RUR #### [facility] [address] [place] [address] Dr. Rosemary Ames MANUAL DIFF REQ NO Normal [facility] Comment on above: Performed By: #### E RUR #### [facility] [address] [place] [address] Dr. Rosemary Ames MCH (RBC) [Entitic mass] 25.8 pg Critically low 26.7-34.0 [facility] Comment on above: Performed By: #### E RUR #### [facility] [address] [place] [address] Dr. Rosemary Ames MCHC (RBC) [Mass/Vol] 31.8 g/dL Normal 29.9-35.2 [facility] Comment on above: Performed By: #### E RUR #### [facility] [address] [place] [address] Dr. Rosemary Ames MCV (RBC) [Entitic vol] 81.2 fL Normal 81.0-99.0 [facility] Comment on above: Performed By: #### E RUR #### [facility] [address] [place] [address] Dr. Rosemary Ames MONO # 0.5 103/ul Normal 0.3-0.8 [facility] Comment on above: Performed By: #### E RUR #### [facility] [address] [place] [address] Dr. Rosemary Ames Monocytes/100 WBC (Bld) 6.1 % Normal 1.7-12.0 [facility] Comment on above: Performed By: #### E RUR #### [facility] [address] [place] [address] Dr. Rosemary Ames NEUT # 5.0 103/ul Normal 1.4-6.5 [facility] Comment on above: Performed By: #### E RUR #### [facility] [address] [place] [address] Dr. Rosemary Ames Neutrophils/100 WBC (Bld) 61.8 % Normal 43.0-75.0 [facility] Comment on above: Performed By: #### E RUR #### [facility] [address] [address] [address] Rosemary Ames Platelet mean volume (Bld) [Entitic vol] 9.9 fL Normal 9.5-13.5 [facility] Comment on above: Performed By: #### E RUR #### [facility] [address] [place] [address] Dr. Rosemary Ames PLT 284 103/ul Normal 150-450 [facility] Comment on above: Performed By: #### E RUR #### [facility] [address] [address] [address] Rosemary Ames RBC 5.04 106/ul Normal 4.20-5.40 [facility] Comment on above: Performed By: #### E RUR #### [facility] [address] [place] [address] Dr. Rosemary Ames WBC 8.0 103/ul Normal 4.0-11.0 [facility] Comment on above: Performed By: #### E RUR #### [facility] [address] [place] [address] Dr. Rosemary Ames FREE THYROXINE INDEX T7on FTI 2.31 Normal 1.30-4.50 [facility] Comment on above: Performed By: #### T 7, LIPID, TSH, CMADM, BNP, CMP #### [facility] [address] [place] [address] Dr. Rosemary Ames T3U 30.0 % Normal 30.0-39.0 [facility] Comment on above: Performed By: #### T 7, LIPID, TSH, CMADM, BNP, CMP #### [facility] [address] [place] [address] Dr. Rosemary Ames T4 [Mass/Vol] 7.70 ug/dL Normal 4.80-13.90 [facility] Comment on above: Performed By: #### T 7, LIPID, TSH, CMADM, BNP, CMP #### [facility] [address] [place] [address] Dr. Rosemary Ames GLYCOHEMOGLOBIN A1Con 2021 ADA RECOMMENDATION SEE BELOW Normal [facility] Comment on above: Result Comment: ADA RECOMMENDED LIMIT 4.0 - 6.0 ADA THERAPEUTIC TARGET < 7.0 ACTION SUGGESTED > 7.0 Performed By: #### A 1C #### [facility] [address] [place] [address] Dr. Rosemary Ames Glucose [Mass/Vol] 243 mg/dL Normal [facility] Comment on above: Performed By: #### A 1C #### [facility] [address] [address] [address] Rosemary Ames HbA1c (Bld) [Mass fraction] 10.1 % Critically high 4.5-6.2 [facility] Comment on above: Performed By: #### A 1C #### [facility] [address] [place] [address] Dr. Rosemary Ames IRONon 12-10-2021 Iron [Mass/Vol] 29.0 ug/dL Critically low 50.0-170.0 [facility] Comment on above: Performed By: #### A 1C #### [facility] [address] [place] [address] Dr. Rosemary Ames LIPID PROFILEon 12-10-2021 CHOL-HDL RATIO NORM SEE BELOW Normal The [facility] Comment on above: Result Comment: 3.3 - 4.4 LOW RISK 4.4 - 7.1 AVERAGE RISK 7.1 - 11.0 MODERATE RISK >11.0 HIGH RISK Performed By: #### T 7, LIPID, TSH, CMADM, BNP, CMP #### [facility] [address] [place] [address] Dr. Rosemary Ames Cholesterol [Mass/Vol] 184 mg/dL Normal <=200 [facility] Comment on above: Performed By: #### T 7, LIPID, TSH, CMADM, BNP, CMP #### [facility] [address] [place] [address] Dr. Rosemary Ames Cholesterol in HDL [Mass/Vol] 44 mg/dL Normal 40-60 [facility] Comment on above: Performed By: #### T 7, LIPID, TSH, CMADM, BNP, CMP #### [facility] [address] [address] [address] Rosemary Ames Cholesterol in LDL [Mass/Vol] 94.6 mg/dL Normal [facility] Comment on above: Performed By: #### T 7, LIPID, TSH, CMADM, BNP, CMP #### [facility] [address] [address] [address] Rosemary Ames Cholesterol.total/Chol esterol in HDL [Mass ratio] 4.2 {ratio} Normal [facility] Comment on above: Performed By: #### T 7, LIPID, TSH, CMADM, BNP, CMP #### [facility] [address] [address] [address] Rosemary Ames HDL NORMAL > or = 60 mg/dl - LOW CARDIOVASCULAR RISK <40 mg/dl - HIGH CARDIOVASCULAR RISK Normal [facility] Comment on above: Performed By: #### T 7, LIPID, TSH, CMADM, BNP, CMP #### [facility] [address] [address] [address] Rosemary Ames LDL CALC NORMAL SEE BELOW Normal [facility] Comment on above: Result Comment: <100 mg/dl OPTIMAL 100 - 129 mg/dl NEAR OR ABOVE OPTIMAL 130 - 159 mg/dl BORDERLINE HIGH 160 - 189 mg/dl HIGH >190 mg/dl VERY HIGH Performed By: #### T 7, LIPID, TSH, CMADM, BNP, CMP #### [facility] [address] [id number] Rosemary Ames Triglyceride [Mass/Vol] 227 mg/dL Critically high <=150 [facility] Comment on above: Performed By: #### T 7, LIPID, TSH, CMADM, BNP, CMP #### [facility] [address] [address] [address] Rosemary Ames VLDL CALC 45.4 mg/dL Normal [facility] Comment on above: Performed By: #### T 7, LIPID, TSH, CMADM, BNP, CMP #### [facility] [address] [address] [address] Rosemary Ames PROF 14(COMP METB)on 022 Albumin [Mass/Vol] 4.1 g/dL Normal 3.4-5.0 [facility] Comment on above: Performed By: #### T 7, LIPID, TSH, CMADM, BNP, CMP #### [facility] [address] [place] [address] Dr. Rosemary Ames Albumin/Globulin [Mass ratio] 1.1 {ratio} Normal [facility] Comment on above: Performed By: #### T 7, LIPID, TSH, CMADM, BNP, CMP #### [facility] [address] [place] [address] Dr. Rosemary Ames ALP [Catalytic activity/Vol] 83 U/L Normal 46-116 [facility] Comment on above: Performed By: #### T 7, LIPID, TSH, CMADM, BNP, CMP #### [facility] [address] [place] [address] Dr. Rosemary Ames ALT [Catalytic activity/Vol] 166 U/L Critically high 14-59 [facility] Comment on above: Performed By: #### T 7, LIPID, TSH, CMADM, BNP, CMP #### [facility] [address] [place] [address] Dr. Rosemary Ames Anion gap [Moles/Vol] 13.9 mmol/L Normal [facility] Comment on above: Performed By: #### T 7, LIPID, TSH, CMADM, BNP, CMP #### [facility] [address] [place] [address] Dr. Rosemary Ames AST [Catalytic activity/Vol] 97 U/L Critically high 15-37 [facility] Comment on above: Performed By: #### T 7, LIPID, TSH, CMADM, BNP, CMP #### [facility] [address] [place] [address] Dr. Rosemary Ames Bilirubin [Mass/Vol] 0.7 mg/dL Normal 0.2-1.0 [facility] Comment on above: Performed By: #### T 7, LIPID, TSH, CMADM, BNP, CMP #### [facility] [address] [place] [address] Dr. Rosemary Ames Calcium [Mass/Vol] 9.2 mg/dL Normal 8.5-10.1 [facility] Comment on above: Performed By: #### T 7, LIPID, TSH, CMADM, BNP, CMP #### [facility] [address] [address] [address] Rosemary Ames Chloride [Moles/Vol] 101 mmol/L Normal 98-107 [facility] Comment on above: Performed By: #### T 7, LIPID, TSH, CMADM, BNP, CMP #### [facility] [address] [place] [address] Dr. Rosemary Ames CO2 [Moles/Vol] 27.5 mmol/L Normal 21.0-32.0 [facility] Comment on above: Performed By: #### T 7, LIPID, TSH, CMADM, BNP, CMP #### [facility] [address] [place] [address] Dr. Rosemary Ames Creatinine [Mass/Vol] 0.65 mg/dL Normal 0.55-1.02 [facility] Comment on above: Performed By: #### T 7, LIPID, TSH, CMADM, BNP, CMP #### [facility] [address] [place] [address] Dr. Rosemary Ames EGFR-AF SENEGALESE >60 Normal >=60 [facility] Comment on above: Performed By: #### T 7, LIPID, TSH, CMADM, BNP, CMP #### [facility] [address] [place] [address] Dr. Rosemary Ames EGFR-NON AF SENEGALESE >60 Normal >=60 [facility] Comment on above: Performed By: #### T 7, LIPID, TSH, CMADM, BNP, CMP #### [facility] [address] [place] [address] Dr. Rosemary Ames Globulin (S) [Mass/Vol] 3.8 g/dL Normal [facility] Comment on above: Performed By: #### T 7, LIPID, TSH, CMADM, BNP, CMP #### [facility] [address] [address] [address] Rosemary Ames Glucose [Mass/Vol] 299 mg/dL Critically high 74-106 [facility] Comment on above: Performed By: #### T 7, LIPID, TSH, CMADM, BNP, CMP #### [facility] [address] [place] [address] Dr. Rosemary Ames Potassium [Moles/Vol] 4.4 mmol/L Normal 3.5-5.1 [facility] Comment on above: Performed By: #### T 7, LIPID, TSH, CMADM, BNP, CMP #### [facility] [address] [place] [address] Dr. Rosemary Ames Protein [Mass/Vol] 7.9 g/dL Normal 6.4-8.2 [facility] Comment on above: Performed By: #### T 7, LIPID, TSH, CMADM, BNP, CMP #### [facility] [address] [place] [address] Dr. Rosemary Ames Sodium [Moles/Vol] 138 mmol/L Normal 136-145 [facility] Comment on above: Performed By: #### T 7, LIPID, TSH, CMADM, BNP, CMP #### [facility] [address] [place] [address] Dr. Rosemary Ames Urea nitrogen [Mass/Vol] 8.0 mg/dL Normal 7.0-18.0 [facility] Comment on above: Performed By: #### T 7, LIPID, TSH, CMADM, BNP, CMP #### [facility] [address] [place] [address] Dr. Rosemary Ames Urea nitrogen/Creatinine [Mass ratio] 12.3 mg/mg Normal [facility] Comment on above: Performed By: #### T 7, LIPID, TSH, CMADM, BNP, CMP #### [facility] [address] [place] [address] Dr. Rosemary Ames TSHon 12-10-2021 TSH 0.921 uIU/mL Normal 0.358-3.740 [facility] Comment on above: Performed By: #### T 7, LIPID, TSH, CMADM, BNP, CMP #### [facility] [address] [place] [address] Dr. Rosemary Ames MG [facility]AMM DIAGNOSTIC 3D JESICA CA Don 11-29-2021 MG [facility] DIAGNOST[facility] 3D JESICA CAD Patient: TESS SAHLEY. Exam Date: 11/29/2021 : 1995 Gender:F Ordering : DR CHAMP LAUREANO . Admission #: [id number] Family : Order #: [id number] CLICK HERE TO VIEW EXAM RADIOLOGY REPORT [...] at age 41. LOCATION: [facility] BREAST COMPOSITION: Heterogeneously dense,which may obscure small [...] 11/29/2021 at 09:59 Normal [facility] US BREAST RIGHT LIMITEDon US BREAST RIGHT LIMITED Patient: TESS ASHLEY. Exam Date: 11/29/2021 : 1995 Gender:F Ordering : DR CHAMP LAUREANO . Admission #: [id number] Family : Order #: [id number] CLICK HERE TO VIEW EXAM RADIOLOGY REPORT [...] at age 41. LOCATION: [facility] BREAST COMPOSITION: Heterogeneously dense,which may obscure small [...] Biggs M.D. on 11/29/2021 at 09:59 Normal [facility] MRI BRAIN WO CONon MRI BRAIN [...] by: SEBLE BIGGS Date: 2021-09-13 12:13 Normal [facility] Glucose (Bld) [Mass/Vol]on 0 08-27-2021 Glucose [Mass/Vol] 188 mg/dL [facility] No Panel Informationon 08-27 Interpretation and review of laboratory results Abnormal [facility] POC Hemoglobin A1Con 022 HbA1c (Bld) [Mass fraction] 7.7 % Abnormal 4 - 6 % [facility] SEROLOGYOrdered By: Fabian echeverria on 08-24-2021 Beta hCG Ql Negative (08/24/21 11:29 PM) Normal [facility] Man Sero XR [...] SYLVESTER PRINGLE Date: 2021-08-15 16:18 Normal [facility] US KIDNEYS BLADDERon US KIDNEYS BLADDER EXAMINATION: [...] MAY PILLAI Date: 2021-06-13 10:16 Normal [facility] Testosterone Free and Total by LC-MS/MSon 02-04-2021 Sex Hormone Binding Globulin 11 nmol/L Low 30-135 [facility] Comment on above: Result Comment: REFE RENCE INTERVAL: Sex Hormone Binding Globulin Access complete set of age- and/or gender-specific reference intervals for this test in the [facility] Test Directory ([employer]). Testosterone, Free LC-MS/MS 9.1 pg/mL Critically high 0.8-7.4 [facility] Comment on above: Result Comment: To c [...] reference intervals for this test in the [employer] Test Directory ([employer]). This test was developed and its performance characteristics determined by [employer]. It has not been cleared or approved by the [place] Food and Drug Administration. This test was performed in a CLIA certified laboratory and is intended for clinical purposes. Performed By: [employer] [address] [place] [id number] Steamfitter: Kiersten Jones MD Testosterone, LC-MS/MS 35 ng/dL Normal 9-55 [facility] Comment on above: Result Comment: Oscar rutherford Testosterone, Females 18 years and older Premenopausal 9-55 ng/dL Postmenopausal 5-32 ng/dL REFERENCE INTERVAL: Testosterone, LC-MS/MS Access complete set of age- and/or gender-specific reference intervals for this test in the [employer] Test Directory ([employer]). This test was developed and its performance characteristics determined by [employer]. It has not been cleared or approved by the [place] Food and Drug Administration. This test was performed in a CLIA certified laboratory and is intended for clinical purposes. Cortisol Daljit 01-31-2021 Cortisol AM 11.0 ug/dL Normal 6.2-19.4 [facility] Comment on above: Performed By: #### C AKSHAT #### [facility] [address] [place] [address] Social History Date Type Detail Facility Start: 05-07-2023 Tobacco use and exposure Smokeless tobacco non-user [facility] Start: 05-07-2023 End: 05-29-2023 Alcohol intake Ex-drinker (finding) [facility] Start: 04-23-2023 Tobacco smoking status MDIS Tobacco smoking consumption unknown [facility] Start: 04-17-2023 Alcohol intake Lifetime non-d jorge (finding) [facility] Start: 03-24-2023 End: 05-07-2023 Sex Assigned At Female [facility] Start: 03-24-2023 End: 05-07-2023 Tobacco smoking status MDIS Never smoked tobacco [facility] Start: 03-24-2023 End: 05-07-2023 History of Social function [facility] Start: 02-27-2023 Gender identity Identifies as female gender (finding) [facility] Start: 02-04-2023 [facility] Start: 08-24-2021 Tobacco smoking status Never [facility] Start: 08-17-2021 End: 08-27-2021 Exposure to SARS-CoV-2 (event) Not sure [facility] Start: 1995 Sex Assigned At Not on file [facility] Start: 1995 Sex Assigned At Female [facility] Vital Signs Date Time Vital Sign Value Performing Clinician Facility 08-22-2023 00:15-0400 Hourly Rounding Sg Naresh [facility] Comment on above: Result Comment: Patient discharged off u nit in wheelchair. 08-22-2023 00:00-0400 Diastolic blood pressure 47 mm[Hg] [facility] [employer] [facility] 08-22-2023 00:00-0400 Heart rate 122 /min [employer] [facility] 08-22-2023 00:00-0400 Mean blood pressure 71 mm[Hg] [facility] [employer] [facility] 08-22-2023 00:00-0400 Systolic blood pressure 120 mm[Hg] Sg Na[facility] 08-21-2023 23:45-0400 Blood Pressure Location [employer] [facility] 08-21-2023 23:45-0400 Diastolic blood pressure 52 mm[Hg] [facility] [employer] [facility] 08-21-2023 23:45-0400 Heart rate 119 /min [facility] [employer] [facility] 08-21-2023 23:45-0400 Mean blood pressure 78 mm[Hg] [facility] [employer] [facility] 08-21-2023 23:45-0400 Respiratory rate 16 /min [facility] 08-21-2023 23:45-0400 Systolic blood pressure 130 mm[Hg] [facility] 08-21-2023 23:36-0400 Hourly Rounding [facility] Comment on above: Result Comment: Patient sitting in bed. Call light within reach. 08-21-2023 23:30-0400 Body temperature 97.88 [degF] [facility] 08-21-2023 23:30-0400 Diastolic blood pressure 69 mm[Hg] [facility] 08-21-2023 23:30-0400 Heart rate 135 /min [facility] 08-21-2023 23:30-0400 Mean blood pressure 82 mm[Hg] [facility] 08-21-2023 23:30-0400 Respiratory rate 18 /min [facility] 08-21-2023 23:30-0400 Systolic blood pressure 107 mm[Hg] [facility] 08-21-2023 22:09-0400 Hourly Rounding [facility] Comment on above: Result Comment: Labetalol given for BP. 08-21-2023 21:30-0400 Body temperature 98.42 [degF] [facility] 08-21-2023 20:20-0400 Diastolic blood pressure 91 mm[Hg] [facility] 08-21-2023 20:20-0400 Heart rate 138 /min [facility] 08-21-2023 20:20-0400 Mean blood pressure 110 mm[Hg] [facility] 08-21-2023 20:20-0400 Respiratory rate 20 /min [facility] 08-21-2023 20:20-0400 SaO2% (BldA) [Mass fraction] 97 % [facility] 08-21-2023 20:20-0400 Systolic blood pressure 149 mm[Hg] [facility] 08-21-2023 19:43-0400 Diastolic blood pressure 86 mm[Hg] [facility] 08-21-2023 19:43-0400 Heart rate 141 /min [facility] 08-21-2023 19:43-0400 Respiratory rate 18 /min [facility] 08-21-2023 19:43-0400 Systolic blood pressure 158 mm[Hg] [facility] 08-21-2023 19:22-0400 Body temperature 98.6 [degF] [facility] 08-21-2023 19:22-0400 Diastolic blood pressure 103 mm[Hg] [facility] 08-21-2023 19:22-0400 Heart rate 131 /min [facility] 08-21-2023 19:22-0400 Mean blood pressure 118 mm[Hg] [facility] 08-21-2023 19:22-0400 Respiratory rate 16 /min [facility] 08-21-2023 19:22-0400 Systolic blood pressure 148 mm[Hg] [facility] 08-21-2023 19:07-0400 Body temperature 99.14 [degF] [facility] 08-21-2023 19:07-0400 Heart rate 140 /min [facility] 08-21-2023 19:07-0400 Respiratory rate 22 /min [facility] 05-07-2023 15:08-0500 Body height 152.4 cm Opal Levigan IT PROFESSIONAL-RESIDENTIAL FRAMING CARPENTER Work Phone: [facility] 05-07-2023 15:08-0500 Body mass index (BMI) [Ratio] 48.43 kg/m2 Opal Heath IT PROFESSIONAL-RESIDENTIAL FRAMING CARPENTER Work Phone: [facility] [employer] [facility] 05-07-2023 15:08-0500 Body weight 112.49 kg Opal Levigan IT PROFESSIONAL-RESIDENTIAL FRAMING CARPENTER Work Phone: [facility] [employer] [facility] 05-07-2023 15:08-0500 Diastolic blood pressure 64 mm[Hg] Opal Levigan IT PROFESSIONAL-RESIDENTIAL FRAMING CARPENTER [facility] 05-07-2023 15:08-0500 Heart rate 111 /min Opal Levigan IT PROFESSIONAL-RESIDENTIAL FRAMING CARPENTER Work Phone: [facility] [employer] 05-07-2023 15:08-0500 Systolic blood pressure 136 mm[Hg] Opal Levigan IT PROFESSIONAL-RESIDENTIAL FRAMING CARPENTER Work Phone: [facility] [employer] [facility] 05-07-2023 14:16-0500 Body mass index (BMI) [Ratio] 48.63 kg/m2 [facility] 05-07-2023 14:16-0500 Body weight 112.95 kg [facility] 04-17-2023 10:25-0500 Body mass index (BMI) [Ratio] 47.85 kg/m2 Mario Zoraida DO Work Phone: [facility] 04-17-2023 10:25-0500 Body weight 111.13 kg Mario Zoraida DO Work Phone: [facility] 04-17-2023 10:25-0500 Diastolic blood pressure 76 mm[Hg] Mario Zoraida DO Work Phone: [facility] 04-17-2023 10:25-0500 Systolic blood pressure 122 mm[Hg] Mario Zoraida DO Work Phone: [facility] 08-27-2021 11:09-0400 Body height 152.4 cm Gregorio Floyd MD Work Phone: [facility] 08-27-2021 11:09-0400 Body mass index (BMI) [Ratio] 46.68 kg/m2 Gregorio Floyd MD Work Phone: [facility] 08-27-2021 11:09-0400 Body weight 108.41 kg Gregorio Floyd MD Work Phone: [facility] 08-27-2021 11:09-0400 Diastolic blood pressure 86 mm[Hg] Gregorio Floyd MD Work Phone: [facility] 08-27-2021 11:09-0400 Heart rate 97 /min Gregorio Floyd MD Work Phone: [facility] 08-27-2021 11:09-0400 Systolic blood pressure 125 mm[Hg] Gregorio Floyd MD Work Phone: [facility] 08-25-2021 14:00-0400 Diastolic blood pressure 81 mm[Hg] [facility] 08-25-2021 14:00-0400 Heart rate 85 /min [facility] 08-25-2021 14:00-0400 Mean blood pressure 100 mm[Hg] [facility] 08-25-2021 14:00-0400 Respiratory rate 16 /min [facility] 08-25-2021 14:00-0400 SaO2% (BldA) [Mass fraction] 98 % [facility] 08-25-2021 14:00-0400 Systolic blood pressure 138 mm[Hg] [facility] 08-25-2021 01:00-0400 Diastolic blood pressure 85 mm[Hg] [facility] 08-25-2021 01:00-0400 Heart rate 87 /min [facility] 08-25-2021 01:00-0400 Respiratory rate 16 /min [facility] 08-25-2021 01:00-0400 SaO2% (BldA) [Mass fraction] 98 % [facility] 08-25-2021 01:00-0400 Systolic blood pressure 140 mm[Hg] [facility] 08-25-2021 00:00-0400 Diastolic blood pressure 89 mm[Hg] [facility] 08-25-2021 00:00-0400 Heart rate 95 /min [facility] 08-25-2021 00:00-0400 SaO2% (BldA) [Mass fraction] 97 % [facility] 08-25-2021 00:00-0400 Systolic blood pressure 149 mm[Hg] [facility] 08-24-2021 22:50-0400 Body temperature 100.22 [degF] [facility] Functional Status Date Assessment Result Facility 08-21-2023 Functional Status N/A [facility] 08-21-2023 Functional Status N/A [facility] 08-24-2021 Functional Status N/A [facility] Clinical Notes 08-24-2021 to 08-22-2023 Note Date & Type Note Facility 08-22-2023 Hospital Discharg e instructions Patient Education 08/21/2023 23:40:58 Vaginal Bleeding During , Third Trimester, Rdtn-ip-Eeqs Vaginal Bleeding During , Third Trimester A [...] you with your normal activities. Medicines Take jlrv-ynh-lymmioo and prescription medicines only as told by [...] provider. Document Revised: 11/16/2020 Document Reviewed: 11/16/2020 [employer] Patient Education 2022 [employer] 08/21/2023 23:40:58 Hypertension During , Nhff-wv-Wmsh Hypertension During Hypertension is also called high [...] are best for you. General instructions Take jnmo-orx-zdqcabp and prescription medicines only as told by [...] provider. Document Revised: 11/16/2020 Document Reviewed: 11/16/2020 [employer] Patient Education 2022 [employer]. 08/21/2023 23:40:58 Form - Movement Counts Movement [...] provider. Document Revised: 10/14/2019 Document Reviewed: 10/14/2019 [employer] Patient Education 2022 [employer]. Follow Up Care 08/21/2023 21:25:46 With:Mario CONWAY Address: [address] , [place] [address] [facility] (1) When:08/22/2023 Comments:Call Dr if fever>100.5 F, heavy bleedingCall for severe abdominal painCall physician for heavy vaginal bleedingCall physician if symptoms worsenReturn for contractions closer, longer, harderReturn for decreased movementReturn if ruptured membranes or vaginal bleeding [facility] 08-22-2023 Note The following Pratibha t Education Materials have been given to the patient: EducationMaterial [facility] 08-21-2023 Hospital Discharg e instructions Patient Education [...] your health care provider. General instructions Take xhjr-ctd-tplrdgj and prescription medicines only as told by [...] provider. Document Revised: 05/25/2020 Document Reviewed: 05/25/2020 [employer] Patient Education 2022 [employer]. Follow Up Care 08/21/2023 19:05:36 With:Roosevelt Maldonado Address: [address] [place] [phone] Business (1) When:08/24/2023 21:04:34 With:Champ Laureano Address: [address] [place] [phone] Business (1) When:Within 3 Day(s) [facility] 08-21-2023 Evaluation + Plan note Extrac [...] Views Right XR Wrist 3+ Views Left [facility]03-21-2024 History of Present illness Narrative* Leana Burr MD - 05/29/2023 10:45 AM EDT [facility]- Diabetes Visit TELEMEDICINE VISIT: This is an audiovisual visit. This is done to assess the patient and to determine the best medical care. The patient was located at home in [place] and the provider was located at the medical office in [place]. The patient states they are not driving [...] of Delivery: 10/28/23. She is referred from [facility] who is managing along with us. She has had her diabetes education with [facility]. Please see media for full [...] within last year: none. Complications: History of NV, CHF: none Medications none Last Lipid panel drawn due after History of HTN: no Medications none History of Diabetic Retinopathy: unknown. Last seen Automotive Parts Person unknown History of peripheral neuropathy: none Medications [...] History: Diagnosis Date Anxiety Depression Diabetes mellitus ([facility]) Disease of thyroid gland Hypertension History reviewed. [...] 10/28/23. She has had diabetes education with [facility]. We reviewed the following We have discussed the issue of insulin-dependent diabetes mellitus and the effect of in detail. There is an elevated risk of malformation of the order of 22% in those who have azbbdjtjrrM2N 8.5 and higher. Patient aware that maternal [...] breakfast: try low sugar protein shakes or angolan yogurt if appetite lower inthe AM. Complications/ [...] to foot injury. : I agree with [facility] recommendations for care. NSTs twice weekly with weekly WEI starting at 32 weeks. Growth US every 4 weeks starting at 28 weeks. Tentative delivery by 39 weeks, but will defer to MFM. Follow up in 1 week. Following at least once per trimester with [facility] as well. [facility] documented in this encounterW[facility]03-[facility] History of Present illness Narrative* Leana Burr [...] of Delivery: 10/28/23. She is referred from [facility] who is managing along with us. She has had her diabetes education with [facility]. Please see media for full [...] within last year: none. Complications: History of NV, CHF: none Medications none Last Lipid panel drawn due after History of HTN: no Medications none History of Diabetic Retinopathy: unknown. Last seen Automotive Parts Person unknown History of peripheral neuropathy: none Medications [...] History: Diagnosis Date Anxiety Depression Diabetes mellitus ([facility]) Disease of thyroid gland Hypertension No past [...] 10/28/23. She has had diabetes education with [facility]. We reviewed the following We have discussed the issue of insulin-dependent diabetes mellitus and the effect of in detail. There is an elevated risk of malformation of the order of 22% in those who have jntyrxrfqsY8T 8.5 and higher. Patient aware that maternal [...] considerably as her current automated basal is ontrkadog05 units but her basal rates were recently [...] breakfast: try low sugar protein shakes or angolan yogurt if appetite lower inthe AM. Complications/ [...] with MFM as well. LEANA BURR MD [facility] documented in this encounterW[facility]03-[facility]-2024 Miscellaneous Notes* Telephone Encounter - Joann Walsh [...] and denied any questions. documented in this encounterWright-[facility]03-05-2024 Telephone encounter Note* Telephone Encounter - Joann [...] meals. Verbalized understanding and denied any questions. [facility] Work Phone: 1(995) 783-845703-04-2024 Miscellaneous Notes* Telephone Encounter - Joann Walsh [...] week 05/20/23. Informed would call back after [facility] provider reviews. documented in this encounterWright-[facility]03-04-2024 Telephone encounter Note* Telephone Encounter - Joann [...] week 05/20/23. Informed would call back after [facility] provider reviews. [facility] Work Phone: 1(994) 869-840802-28-2024 History of Present illness Narrative* Queta Marbin, [facility] - 05/07/2023 3:00 PM EST Headache/epigastric [...] results Have you been seen here at [facility] in a previous ? N/a Recent ER visits or hospitalizations? No Bring blood sugar log or meter with you today? (Please bring them with you for every visit at [facility]) yes Traveled outside the country in the past 6 month no Any concerns that you would like me to mention to the provider today? No * Opal Heath, IT PROFESSIONAL-RESIDENTIAL FRAMING CARPENTER - 05/07/2023 3:00 PM EST REASON FOR [...] no complaints. She is being followed at [facility] due to Type 2 [...] TSH 1.05 04/01/2023 No results found for: [id number] No results found for: CREATININE , BUN [...] values to us weekly by e-mail to: [email or web address] or by fax to: [phone] Minutes spent hpmi-sr-wejy; more than 50% of time spent counseling and/or coordinating care withadditional time for record review and communication to referring provider. SABINA Uribe 05/07/23 1556 documented in this encounterWright-Patterson [facility] Center02-28-2024 History of Present illness Narrative* Danyell Ortiz [...] care for you: OB Provider Family Doctor Staffing Executive Name: Sebastian Name: No primary care provider on file. Name:[facility] City: City: City: Last time seen: Last [...] demonstration Is there anything about your culture, sabianist, or personal beliefs we need to know about to care for you: Other none Primary Language spoken: Colombian [22] Primary Language for learning: Colombian Are you currently in a relationship where you are physically hurt, threatened or made to fee afraid? [] Yes [x] No List Of First Job Ideas needed? [] Yes [x] No Marital status/Living [...] If yes, where: On thge following scale, [place] the number, which describes your current level [...] Past Medical History: Diagnosis Date Diabetes mellitus ([facility]) Disease of thyroid gland [...] Educational Level high school Family issues none Cultural/ethnic/oriental orthodox influences none Exercise approved by MD? Current Exercise program walking Who prepares the meal pt Who purchase food at your home? pt Equipment use for cooking/food storage has all Food Assistance(Ex.WIC, Food [place]) has apt Dining out Yes 1 time per month Appetite/Appetite changes increased Weight History stable Do you have cats at home? Feeding Plans Breast Feeding If you have cats, who cleans the litter box? Cravings/Aversions/Pica none currently Nutrition Assessment Worksheet: Week/Weekend Food Recall Breakfast [place] Or cereal Or eggs Snack Lunch Grilled cheese Or noodles Snack Dinner 2 Cheeseburger Sugar free pink lemonade Snack Snack Time Tess Pfeifefr present for diet instruction per doctor order [...] Management Support Plan, patient chose to use [employer] to help manage her diabetes. Patient understands that we will follow up weekly with a phone call to review progress. Face to face time 40 minutes. documented in this encounterACMC Healthcare SystemGradeable [id number] Instructions* Patient Instructions* Danyell Ortiz RN - [...] 4 HOURS WHILE AWAKE documented in this [facility] [place], operated by [facility] [id number] Miscellaneous Notes* Telephone Encounter - Danyell Ortiz RN - 04/23/2023 12:23 PM EST Called pt due toher not coming to her appt today and she stated she had left a message that she needed to tammi due to not having transportation to her appt this morning. Her name given back to the schedulers to call and resched her. documented in this encounterWright-[facility]02-14-2024 Telephone encounter Note* Telephone Encounter - Danyell Ortiz RN - 04/23/2023 12:23 PM EST Called pt due toher not coming to her appt today and she stated she had left a message that she needed to tammi due to not having transportation to her appt this morning. Her name given back to the schedulers to call and resched her. [facility] [employer] [id number] History of Present illness Narrative* Mario Conway [...] Hand fracture, right Type 2 diabetes mellitus ([facility]) Family History Problem Relation Name [...] nursing note reviewed. Exam conducted with a keycase assembler present. Vitals: Estimated body mass index is [...] of: Mario Conway DO documented in this encounterSt. Joseph Medical [id number] Instructions* Patient Instructions* Gregorio Floyd MD - [...] hold levothyroxine for now. documented in this [id number] History of Present illness Narrative* Gregorio Floyd [...] ALKPHOS, BILITOT No results found for: TSH, [id number], THYROIDAB No results found for: PTH, CALCIUM, JACQUES, PHOS Lab Results Component Value Date HGBA1C 7.7 (A) 08/27/2021 No results found for: LDLCALC, CHOL, HDL, TRIG, CHOLHDL No results found for: MICALBCREAT, [id number] No results found for: CPEPTIDE Assessment and [...] acanthosis nigricans indicate T2DM, but will get XAW19-Rk and c-peptide/glucose given the young age of [...] Due for foot exam no 08/2021; to correctional counselor on foot care next visit CV [...] Gregorio Floyd MD Endocrinology documented in this [id number] Hospital Discharge instructions Patient Education 08/25/2021 02:09:26 [...] Ask your health care provider for a ypoz-ye-tsxr plan for gradually returning to activities. Ask [...] your friends, family, a trusted colleague, and group care worker about your injury, symptoms, and restrictions. Have them watch for any new or worsening problems. General instructions Take yksh-nup-cqayjoz and prescription medicines only as told by [...] 02/24/2006 Document Revised: 03/24/2019 Document Reviewed: 03/19/2019 [employer] Patient Education 2020 [employer]. 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 General instructions Take ujcs-lvc-zrxiznd and prescription medicines only as told by [...] 12/22/2007 Document Revised: 06/16/2019 Document Reviewed: 10/23/2016 [employer] Patient Education 2020 [employer]. Follow Up Care 08/24/2021 22:42:21 With:Champ Laureano Address: [address] [place], [place] [id number] Business (1) When:Within 3 Day(s) [facility]06-17-2022 Evaluation + Plan noteExtracted from: Title:ED [...] w/o Contrast CT Spine Cervical w/o Contrast [facility]* Diagnosis Thyroid disorder- Primary Unspecified disorder of thyroid Hair loss Unspecified alopecia [facility] Diagnosis Type 2 diabetes mellitus with hyperglycemia, unspecified whether pulley worker insulin use (HCC)- Primary Thyroid disorder Unspecified disorder of thyroid Hair loss Unspecified alopecia [facility]* Diagnosis Bleeding in early Unspecified hemorrhage in early , unspecified as to episode of care Follow-up exam Unspecified follow-up examination documented [facility] encounter [facility]* Diagnosis Type 2 diabetes mellitus in , second trimester- Primary Insulin pump in place Insulin pump status HTN in , chronic [facility] Diagnosis Type 2 diabetes mellitus in , second trimester- Primary Pre-existing type 2 diabetes mellitus during in first trimester [facility]* Diagnosis Type 2 diabetes mellitus in , second trimester- Primary [facility]* Diagnosis Type 2 diabetes mellitus in , second trimester- Primary [facility]* Diagnosis Type 2 diabetes mellitus in , second trimester- Primary [facility]* Diagnosis Type 2 diabetes mellitus in , second trimester- Primary [facility] in this [facility] Narrative No data available for this section [facility]InstructionsNot on filedocumented in this encounter [facility]Not on filedocumented in this encounter [facility] SystemInstructionsNot on filedocumented in this encounter [facility] SystemInstructionsNot on filedocumented in this encounter [facility] SystemInstructionsNot on filedocumented in this encounter [facility] SystemInstructionsNot on filedocumented in this encounter [facility]Progress note No data available for this section [facility] (n[facility]ative)* Consultation (Routine) - Pending Review Specialty Diagnoses / Procedures Referred By Contac t Referred To Contact Maternal and Medicine Diagnoses Type 2 diabetes mellitus in , second trimester Insulin pump in place Opal Heath APRN-CNP [address] [place] [address] Leana Burr MD [address], [address] [address] Referral ID Status Reason Start Date Expiration Date Visits Requested Visits Authorized [id number] Pending Review Specialty Services Required 05/07/2023 05/06/2024 1 1 [facility] Consultation (Routine) - Pending Review Specialty Diagnoses / Procedures Referred By Contac t Referred To Contact Endocrinology Diagnoses Type 2 diabetes mellitus in , second trimester Mary Guidry APRN-CNM [address], [address] [place] [id number] Leana Burr MD [facility] [address], [address] [address] Referral ID Status Reason Start Date Expiration Date Visits Requested Visits Authorized [id number] Pending Review Specialty Services Required 05/20/2023 05/19/2024 1 1 [facility] for visit Narrative* Consultation (Routine) - Pending Review Specialty Diagnoses / Procedures Referred By Contac t Referred To Contact Endocrinology Diagnoses Type 2 diabetes mellitus in , second trimester Mary Guidry APRN-CNM [address], [address] [place] [phone] Leana Burr MD [address], [address] [address] Referral ID Status Reason Start Date Expiration Date Visits Requested Visits Authorized [id number] Pending Review Specialty Services Required 05/20/2023 05/19/2024 1 1 [facility] Summary Purpose Family History No Family [...] FoundDocuments on File Type Date 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 [place] [address] [place] [address] Gregorio Floyd MD [address] [place] [id number] Referral ID Status Reason Start Date Expiration Date Visits Requested Visits Authorized [id number] Authorized Specialty Services Required/Pat ient's Best Interest 05/04/2021 05/04/2022 1 1 Specialty Diagnoses / Procedures Referred By Contac t Referred To Contact Maternal and Medicine Diagnoses Type 2 diabetes mellitus in , second trimester Procedures US [facility] with or without consult Opal Heath, IT PROFESSIONAL-RESIDENTIAL FRAMING CARPENTER [address] [place] [address] [facility] Maternal Med [address] [place] [address] Referral ID Status Reason Start Date Expiration Date V isits Requested Visits Authorized [id number] Pending Review 05/08/2023 05/07/2024 1 1 Additional Source Comments INFORMATION SOURCE (unrecogn ized section and content) DATE CREATED AUTHOR 02/06/2021 [facility] DATE CREATED AUTHOR AUTHOR'S ORGANIZ ATION 08/27/2021 [facility] DATE CREATED AUTHOR AUTHOR'S ORGANIZ ATION 06/02/2022 [facility] DATE CREATED AUTHOR AUTHOR'S ORGANIZ ATION [facility]/14/2023 [facility] DATE CREATED AUTHOR AUTHOR'S ORGANIZ ATION 08/21/2023 [facility] DATE CREATED AUTHOR AUTHOR'S ORGANIZ ATION 08/23/2023 [facility] DATE CREATED AUTHOR AUTHOR'S ORGANIZ ATION 08/27/2023 [facility] DATE CREATED AUTHOR AUTHOR'S ORGANIZ ATION 09/02/2023 [facility] Care Teams (unrecognized sec tion and content) [employer] Relationship Specialty Start Date End Date Champ Laureano MD [address] [place] [address] PCP - General Family Medicine 05/02/21 [employer] Relationship Specialty Start Date End Date Champ Laureano MD [address] [place] [address] PCP - General Family Medicine 05/02/21 [employer] Relationship Specialty Start Date End Date Champ Laureano MD [address] [place] [address] PCP - General 03/13/23 Reason for Visit (unrecogniz ed section and content) Reason Comments Thyroid Problem Specialty Diagnoses / Procedures Referred By Contac t Referred To Contact Endocrinology Diagnoses Thyroid disorder Hair loss Champ Laureano MD [address] [place] [address] Gregorio Floyd MD [address] [place] [address] Referral ID Status Reason Start Date Expiration Date V isits Requested Visits Authorized [id number] Closed Specialty Services Required/Deanna ent's Best Interest 05/04/2021 05/04/2022 1 1 Reason Comments ER Follow-up Reason Comments [email or web address] Reason Comments Diabetes Specialty Diagnoses / Procedures Referred By Contmichelle t Referred To Contact Maternal and Medicine Diagnoses Pre-existing type 2 diabetes mellitus during in first trimester Mario Conway R, DO [address], [place] [address] [facility] [address] [place] [address] Referral ID Status Reason Start Date Expiration Date Visits Requested Visits Authorized [id number] Pending Review Specialty Services Required 04/15/2023 04/14/2024 [...] BE BASED ON THE PRIMARY CLINICAL RECORDS. [facility] [employer] provides no warranty or guarantee of the accuracy or completeness of information in this document.
== END 2023-09-03 12:55 | disposition home or self-care (01) ==
LOC: FBCO 11:52 → FBC 11:55
PROVIDERS: PCP Family Medicine; Visit Provider Obstetrics & Gynecology
DX: O36.8130 Decreased fetal movements, third trimester, not applicable or unspecified (principal); Z3A.32 32 weeks gestation of pregnancy
CPT/HCPCS: 76818

== ENCOUNTER 2023-09-06 10:44 | Emergency (ER) | payer OTHER, SELFPAY ==
[2023-09-06] VITALS (11 sets, daily range): BP systolic 124–145; BP diastolic 75–97; PULSE 101–122; TEMP 36.8; O2SAT 97–98; BMI 54.7
--- OUTSIDE RECORDS SUMMARY | 2023-09-06 10:53 | XMS_ITS | CCD ---
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 [place] [address] Dr. Rosemary Ames EO # 0.1 103/ul Normal 0.0-0.7 [facility] Comment on above: Performed By: #### E RUR #### [facility] [address] [place] [address] Dr. Rosemary Ames Eosinophils/100 WBC (Bld) 1.0 % Normal 0.9-7.0 [facility] Comment on above: Performed By: #### E RUR #### [facility] [address] [place] [address] Dr. Rosemary Ames Erythrocyte distribution width (RBC) [Ratio] 13.7 % Normal 11.0-15.0 [facility] Comment on above: Performed By: #### E RUR #### [facility] [address] [place] [address] Dr. Rosemary Ames Hematocrit (Bld) [Volume fraction] 40.9 % Normal 36.0-48.0 [facility] Comment on above: Performed By: #### E RUR #### [facility] [address] [place] [address] Dr. Rosemary Ames Hemoglobin (Bld) [Mass/Vol] 13.0 g/dL Normal 12.0-16.0 [facility] Comment on above: Performed By: #### E RUR #### [facility] [address] [place] [address] Dr. Rosemary Ames IG # 0.03 10e3/ul Normal 0.00-0.03 [facility] Comment on above: Performed By: #### E RUR #### [facility] [address] [place] [address] Dr. Rosemary Ames IG % 0.4 % Normal 0.0-0.5 [facility] Comment on above: Performed By: #### E RUR #### [facility] [address] [place] [address] Dr. Rosemary Ames LYMPH # 2.4 103/ul Normal 1.2-3.8 [facility] Comment on above: Performed By: #### E RUR #### [facility] [address] [place] [address] Dr. Rosemary Ames Lymphocytes/100 WBC (Bld) 30.3 % Normal 20.5-60.0 [facility] Comment on above: Performed By: #### E RUR #### [facility] [address] [place] [address] Dr. Rosemary Ames MANUAL DIFF REQ NO Normal [facility] Comment on above: Performed By: #### E RUR #### [facility] [address] [place] [address] Dr. Rosemary Ames MCH (RBC) [Entitic mass] 25.8 pg Critically low 26.7-34.0 [facility] Comment on above: Performed By: #### E RUR #### [facility] [address] [place] [address] Dr. Rosemary Ames MCHC (RBC) [Mass/Vol] 31.8 g/dL Normal 29.9-35.2 [facility] Comment on above: Performed By: #### E RUR #### [facility] [address] [place] [address] Dr. Rosemary Ames MCV (RBC) [Entitic vol] 81.2 fL Normal 81.0-99.0 [facility] Comment on above: Performed By: #### E RUR #### [facility] [address] [place] [address] Dr. Rosemary Ames MONO # 0.5 103/ul Normal 0.3-0.8 [facility] Comment on above: Performed By: #### E RUR #### [facility] [address] [place] [address] Dr. Rosemary Ames Monocytes/100 WBC (Bld) 6.1 % Normal 1.7-12.0 [facility] Comment on above: Performed By: #### E RUR #### [facility] [address] [place] [address] Dr. Rosemary Ames NEUT # 5.0 103/ul Normal 1.4-6.5 [facility] Comment on above: Performed By: #### E RUR #### [facility] [address] [place] [address] Dr. Rosemary Ames Neutrophils/100 WBC (Bld) 61.8 % Normal 43.0-75.0 [facility] Comment on above: Performed By: #### E RUR #### [facility] [address] [place] [address] Dr. Rosemary Ames Platelet mean volume (Bld) [Entitic vol] 9.9 fL Normal 9.5-13.5 [facility] Comment on above: Performed By: #### E RUR #### [facility] [address] [place] [address] Dr. Rosemary Ames PLT 284 103/ul Normal 150-450 [facility] Comment on above: Performed By: #### E RUR #### [facility] [address] [place] [address] Dr. Rosemary Ames RBC 5.04 106/ul Normal 4.20-5.40 [facility] Comment on above: Performed By: #### E RUR #### [facility] [address] [place] [address] Dr. Rosemary Ames WBC 8.0 103/ul Normal 4.0-11.0 [facility] Comment on above: Performed By: #### E RUR #### [facility] [address] [place] [address] Dr. Rosemary Ames FREE THYROXINE INDEX T7on FTI 2.31 Normal 1.30-4.50 [facility] Comment on above: Performed By: #### T 7, LIPID, TSH, CMADM, BNP, CMP #### [facility] [address] [place] [address] Dr. Rosemary Ames T3U 30.0 % Normal 30.0-39.0 [facility] Comment on above: Performed By: #### T 7, LIPID, TSH, CMADM, BNP, CMP #### [facility] [address] [place] [address] Dr. Rosemary Ames T4 [Mass/Vol] 7.70 ug/dL Normal 4.80-13.[address] [facility] Comment on above: Performed By: #### T 7, LIPID, TSH, CMADM, BNP, CMP #### [facility] [address] [address] [address] Rosemary Ames GLYCOHEMOGLOBIN A1Con 2021 ADA RECOMMENDATION SEE BELOW Normal [facility] Comment on above: Result Comment: ADA RECOMMENDED LIMIT 4.0 - 6.0 ADA THERAPEUTIC TARGET < 7.0 ACTION SUGGESTED > 7.0 Performed By: #### A 1C #### [facility] [address] [address] [address] Rosemary Ames Glucose [Mass/Vol] 243 mg/dL Normal [facility] Comment on above: Performed By: #### A 1C #### [facility] [address] [address] [address] Rosemary Ames HbA1c (Bld) [Mass fraction] 10.1 % Critically high 4.5-6.2 [facility] Comment on above: Performed By: #### A 1C #### [facility] [address] [place] [address] Dr. Rosemary Ames IRONon 12-10-2021 Iron [Mass/Vol] 29.0 ug/dL Critically low 50.0-170.0 [facility] Comment on above: Performed By: #### A 1C #### [facility] [address] [place] [address] Dr. Rosemary Ames LIPID PROFILEon 12-10-2021 CHOL-HDL RATIO NORM SEE BELOW Normal [facility] Comment on above: Result Comment: 3.3 - 4.4 LOW RISK 4.4 - 7.1 AVERAGE RISK 7.1 - 11.0 MODERATE RISK >11.0 HIGH RISK Performed By: #### T 7, LIPID, TSH, CMADM, BNP, CMP #### [facility] [address] [address] [address] Rosemary Ames Cholesterol [Mass/Vol] 184 mg/dL Normal <=200 [facility] Comment on above: Performed By: #### T 7, LIPID, TSH, CMADM, BNP, CMP #### [facility] [address] [address] [address] Rosemary Ames Cholesterol in HDL [Mass/Vol] 44 mg/dL Normal 40-60 [facility] Comment on above: Performed By: #### T 7, LIPID, TSH, CMADM, BNP, CMP #### [facility] [address] [address] [address] Rosemary Ames Cholesterol in LDL [Mass/Vol] 94.6 mg/dL Normal [facility] Comment on above: Performed By: #### T 7, LIPID, TSH, CMADM, BNP, CMP #### [facility] [address] [address] [address] Rosemary Ames Cholesterol.total/Chol esterol in HDL [Mass ratio] 4.2 {ratio} Normal [facility] Comment on above: Performed By: #### T 7, LIPID, TSH, CMADM, BNP, CMP #### [facility] [address] [place] [address] Dr. Rosemary Ames HDL NORMAL > or = 60 mg/dl - LOW CARDIOVASCULAR RISK <40 mg/dl - HIGH CARDIOVASCULAR RISK Normal [facility] Comment on above: Performed By: #### T 7, LIPID, TSH, CMADM, BNP, CMP #### [facility] [address] [address] [address] Rosemary Ames LDL CALC NORMAL SEE BELOW Normal [facility] Comment on above: Result Comment: <100 mg/dl OPTIMAL 100 - 129 mg/dl NEAR OR ABOVE OPTIMAL 130 - 159 mg/dl BORDERLINE HIGH 160 - 189 mg/dl HIGH >190 mg/dl VERY HIGH Performed By: #### T 7, LIPID, TSH, CMADM, BNP, CMP #### [facility] [address] [address] [address] Rosemary Ames Triglyceride [Mass/Vol] 227 mg/dL Critically high <=150 [facility] Comment on above: Performed By: #### T 7, LIPID, TSH, CMADM, BNP, CMP #### [facility] [address] [address] [address] Rosemary Ames VLDL CALC 45.4 mg/dL Normal [facility] Comment on above: Performed By: #### T 7, LIPID, TSH, CMADM, BNP, CMP #### [facility] [address] [place] [address] Dr. Rosemary Ames PROF 14(COMP METB)on 022 Albumin [Mass/Vol] 4.1 g/dL Normal 3.4-5.0 [facility] Comment on above: Performed By: #### T 7, LIPID, TSH, CMADM, BNP, CMP #### [facility] [address] [place] [address] Dr. Rosemary Ames Albumin/Globulin [Mass ratio] 1.1 {ratio} Normal [facility] Comment on above: Performed By: #### T 7, LIPID, TSH, CMADM, BNP, CMP #### [facility] [address] [place] [address] Dr. Rosemary Ames ALP [Catalytic activity/Vol] 83 U/L Normal 46-116 [facility] Comment on above: Performed By: #### T 7, LIPID, TSH, CMADM, BNP, CMP #### [facility] [address] [place] [address] Dr. Rosemary Ames ALT [Catalytic activity/Vol] 166 U/L Critically high 14-59 [facility] Comment on above: Performed By: #### T 7, LIPID, TSH, CMADM, BNP, CMP #### [facility] [address] [place] [address] Dr. Rosemary Ames Anion gap [Moles/Vol] 13.9 mmol/L Normal [facility] Comment on above: Performed By: #### T 7, LIPID, TSH, CMADM, BNP, CMP #### [facility] [address] [place] [address] Dr. Rosemary Ames AST [Catalytic activity/Vol] 97 U/L Critically high 15-37 [facility] Comment on above: Performed By: #### T 7, LIPID, TSH, CMADM, BNP, CMP #### [facility] [address] [place] [address] Dr. Rosemary Ames Bilirubin [Mass/Vol] 0.7 mg/dL Normal 0.2-1.0 [facility] Comment on above: Performed By: #### T 7, LIPID, TSH, CMADM, BNP, CMP #### [facility] [address] [address] [address] Rosemary Ames Calcium [Mass/Vol] 9.2 mg/dL Normal 8.5-10.1 [facility] Comment on above: Performed By: #### T 7, LIPID, TSH, CMADM, BNP, CMP #### [facility] [address] [address] [address] Rosemary Ames Chloride [Moles/Vol] 101 mmol/L Normal 98-107 [facility] Comment on above: Performed By: #### T 7, LIPID, TSH, CMADM, BNP, CMP #### [facility] [address] [place] [address] Dr. Rosemary Ames CO2 [Moles/Vol] 27.5 mmol/L Normal 21.0-32.0 [facility] Comment on above: Performed By: #### T 7, LIPID, TSH, CMADM, BNP, CMP #### [facility] [address] [place] [address] Dr. Rosemary Ames Creatinine [Mass/Vol] 0.65 mg/dL Normal 0.55-1.02 [facility] Comment on above: Performed By: #### T 7, LIPID, TSH, CMADM, BNP, CMP #### [facility] [address] [place] [address] Dr. Rosemary Ames EGFR-AF CHILEAN >60 Normal >=60 [facility] Comment on above: Performed By: #### T 7, LIPID, TSH, CMADM, BNP, CMP #### [facility] [address] [place] [address] Dr. Rosemary Ames EGFR-NON AF CHILEAN >60 Normal >=60 [facility] Comment on above: Performed By: #### T 7, LIPID, TSH, CMADM, BNP, CMP #### [facility] [address] [place] [address] Dr. Rosemary Ames Globulin (S) [Mass/Vol] 3.8 g/dL Normal [facility] Comment on above: Performed By: #### T 7, LIPID, TSH, CMADM, BNP, CMP #### [facility] [address] [place] [address] Dr. Rosemary Ames Glucose [Mass/Vol] 299 mg/dL Critically high 74-106 [facility] Comment on above: Performed By: #### T 7, LIPID, TSH, CMADM, BNP, CMP #### [facility] [address] [place] [address] Dr. Rosemary Ames Potassium [Moles/Vol] 4.4 mmol/L Normal 3.5-5.1 [facility] Comment on above: Performed By: #### T 7, LIPID, TSH, CMADM, BNP, CMP #### [facility] [address] [address] [address] Rosemary Ames Protein [Mass/Vol] 7.9 g/dL Normal 6.4-8.2 [facility] Comment on above: Performed By: #### T 7, LIPID, TSH, CMADM, BNP, CMP #### [facility] [address] [place] [address] Dr. Rosemary Ames Sodium [Moles/Vol] 138 mmol/L Normal 136-145 [facility] Comment on above: Performed By: #### T 7, LIPID, TSH, CMADM, BNP, CMP #### [facility] [address] [place] [address] Dr. Rosemary Ames Urea nitrogen [Mass/Vol] 8.0 mg/dL Normal 7.0-18.0 [facility] Comment on above: Performed By: #### T 7, LIPID, TSH, CMADM, BNP, CMP #### [facility] [address] [place] [address] Dr. Rosemary Ames Urea nitrogen/Creatinine [Mass ratio] 12.3 mg/mg Normal [facility] Comment on above: Performed By: #### T 7, LIPID, TSH, CMADM, BNP, CMP #### [facility] [address] [place] [address] Dr. Rosemary Ames TSHon 12-10-2021 TSH 0.921 uIU/mL Normal 0.358-3.740 [facility] Comment on above: Performed By: #### T 7, LIPID, TSH, CMADM, BNP, CMP #### [facility] [address] [address] [address] Rosemary Ames [facility]D JESICA CA Don 11-29-2021 [facility] 3D JESICA CAD Patient: TESS ASHLEY. Exam Date: 11/29/2021 : 1995 Gender:F Ordering : DR CHAMP LAUREANO . Admission #: [id number] Family : Order #: [id number] CLICK HERE TO VIEW EXAM RADIOLOGY REPORT [...] [facility] US BREAST RIGHT LIMITEDon US BREAST RIGHT LIMITED Patient: TESS ASHLEY. Exam Date: 11/29/2021 : 1995 Gender:F Ordering : DR CHAMP LAUREANO . Admission #: [id number] Family : Order #: [id number] CLICK HERE TO VIEW EXAM RADIOLOGY REPORT [...] SEBLE BIGGS Date: 2021-09-13 12:13 Normal [facility] Glucose (Bld) [Mass/Vol]on 0 08-27-2021 Glucose [Mass/Vol] 188 mg/dL [facility] Interpretation and review of laboratory results Abnormal [facility] HbA1c (Bld) [Mass fraction]o n 08-27-2021 Interpretation and review of laboratory results Abnormal [facility] POC Hemoglobin A1Con 022 HbA1c (Bld) [Mass fraction] 7.7 % Abnormal 4 - 6 % [facility] SEROLOGYOrdered By: Fabian echeverria on 08-24-2021 Beta hCG Ql Negative (08/24/21 11:29 PM) Normal [facility] Man Sero XR KNEE LT [...] by: SYLVESTER PRINGLE Date: 2021-08-15 16:18 Normal [facility] US KIDNEYS BLADDERon US KIDNEYS BLADDER [...] Binding Globulin 11 nmol/L Low 30-135 [facility] Comment on above: Result Comment: REFE RENCE INTERVAL: Sex Hormone Binding Globulin Access complete set of age- and/or gender-specific reference intervals for this test in the [facility] Test Directory ([employer]). Testosterone, Free LC-MS/MS 9.1 pg/mL Critically high 0.8-7.4 [facility] Comment on above: Result Comment: To [...] reference intervals for this test in the [facility] ([employer]). This test was developed and its performance characteristics determined by [employer]. It has not been cleared or approved by the US Food and Drug Administration. This test was performed in a CLIA certified laboratory and is intended for clinical purposes. Performed By: [employer] [address] [place] [id number] Hot Stone Setter: Kiersten Jones MD Testosterone, LC-MS/MS 35 ng/dL Normal 9-55 [facility] Comment on above: Result Comment: Oscar rutherford Testosterone, Females 18 years and older Premenopausal 9-55 ng/dL Postmenopausal 5-32 ng/dL REFERENCE INTERVAL: Testosterone, LC-MS/MS Access complete set of age- and/or gender-specific reference intervals for this test in the [facility] Test Directory ([employer]). This test was developed and its performance characteristics determined by [employer]. It has not been cleared or approved by the US Food and Drug Administration. This test was performed in a CLIA certified laboratory and is intended for clinical purposes. Cortisol Daljit 01-31-2021 Cortisol AM 11.0 ug/dL Normal 6.2-19.4 [facility] Comment on above: Performed By: #### C AKSHAT #### [facility] [address] [place] [address] Vital Signs Date Time Vital Sign Value Performing Clinician Facility 08-22-2023 00:15-0400 Hourly Rounding [facility] Comment on above: Result Comment: Patient discharged off u nit in wheelchair. 08-22-2023 00:00-0400 Diastolic blood pressure 47 mm[Hg] [facility] 08-22-2023 00:00-0400 Heart rate 122 /min [facility] 08-22-2023 00:00-0400 Mean blood pressure 71 mm[Hg] [facility] 08-22-2023 00:00-0400 Systolic blood pressure 120 mm[Hg] [facility] 08-21-2023 23:45-0400 Blood Pressure Location [facility] 08-21-2023 23:45-0400 Diastolic blood pressure 52 mm[Hg] [facility] 08-21-2023 23:45-0400 Heart rate 119 /min [facility] 08-21-2023 23:45-0400 Mean blood pressure 78 mm[Hg] [facility] 08-21-2023 23:45-0400 Respiratory rate 16 /min [facility] 08-21-2023 23:45-0400 Systolic blood pressure 130 mm[Hg] [facility] 08-21-2023 23:36-0400 Hourly Rounding [facility] Comment on above: Result Comment: Patient sitting in bed. Call light within reach. 08-21-2023 23:30-0400 Body temperature 97.88 [degF] [facility] 08-21-2023 23:30-0400 Diastolic blood pressure 69 mm[Hg] [facility] 08-21-2023 23:30-0400 Heart rate 135 /min [facility] 08-21-2023 23:30-0400 Mean blood pressure 82 mm[Hg] [facility] 08-21-2023 23:30-0400 Respiratory rate 18 /min [facility] 08-21-2023 23:30-0400 Systolic blood pressure 107 mm[Hg] [facility] 08-21-2023 22:09-0400 Hourly Rounding [facility] Comment on above: Result Comment: Labetalol given for BP. 08-21-2023 21:30-0400 Body temperature 98.42 [degF] [facility] 08-21-2023 20:20-0400 Diastolic blood pressure 91 mm[Hg] Tyler Melina [facility] 08-21-2023 20:20-0400 Heart rate 138 /min Tyler [facility] 08-21-2023 20:20-0400 Mean blood pressure 110 mm[Hg] Tyler [facility] 08-21-2023 20:20-0400 Respiratory rate 20 /min Tyler Melina [facility] 08-21-2023 20:20-0400 SaO2% (BldA) [Mass fraction] 97 % Tyler [facility] 08-21-2023 20:20-0400 Systolic blood pressure 149 mm[Hg] Tyler Melina [facility] 08-21-2023 19:43-0400 Diastolic blood pressure 86 mm[Hg] Tyler Melina [facility] 08-21-2023 19:43-0400 Heart rate 141 /min Tyler Melina [facility] 08-21-2023 19:43-0400 Mean blood pressure 110 mm[Hg] Tyler Melina [facility] 08-21-2023 19:43-0400 Respiratory rate 18 /min Tyler Melina [facility] 08-21-2023 19:43-0400 SaO2% (BldA) [Mass fraction] 97 % Tyler Melina [facility] 08-21-2023 19:43-0400 Systolic blood pressure 158 mm[Hg] Tyler Melina [facility] 08-21-2023 19:22-0400 Body temperature 98.6 [degF] Tyler Melina [facility] 08-21-2023 19:22-0400 Diastolic blood pressure 103 mm[Hg] Tyler Melina [facility] 08-21-2023 19:22-0400 Heart rate 131 /min Tyler Melina [facility] 08-21-2023 19:22-0400 Mean blood pressure 118 mm[Hg] Tyler Melina [facility] 08-21-2023 19:22-0400 Respiratory rate 16 /min Tyler Melina [facility] 08-21-2023 19:22-0400 SaO2% (BldA) [Mass fraction] 97 % Tyler Melina [facility] 08-21-2023 19:22-0400 Systolic blood pressure 148 mm[Hg] Tyler Melina [facility] 08-21-2023 19:07-0400 Body temperature 99.14 [degF] Tyler Mel[facility] 08-21-2023 19:07-0400 Heart rate 140 /min Tyler Melina [facility] 08-21-2023 19:07-0400 Respiratory rate 22 /min Tyler Melina [facility] 05-07-2023 15:08-0500 Body height 152.4 cm Opal Levigan 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 Work Phone: [facility] 05-07-2023 15:08-0500 Body mass index (BMI) [Ratio] 48.43 kg/m2 Opal Levigan 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 Work Phone: [facility] 05-07-2023 15:08-0500 Body weight 112.49 kg Opal Levigan 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 Work Phone: [facility] 05-07-2023 15:08-0500 Diastolic blood pressure 64 mm[Hg] Opal Heath 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 Work Phone: [facility] 05-07-2023 15:08-0500 Heart rate 111 /min Opal Heath 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 Work Phone: [facility] 05-07-2023 15:08-0500 Systolic blood pressure 136 mm[Hg] Opal Levigan 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 Work Phone: [facility] 05-07-2023 14:16-0500 Body height 152.4 cm [facility] 05-07-2023 14:16-0500 Body mass index (BMI) [Ratio] 48.63 kg/m2 [facility] 05-07-2023 14:16-0500 Body weight 112.95 kg [facility] 04-17-2023 10:25-0500 Body mass index (BMI) [Ratio] 47.85 kg/m2 Mario Conway DO Work Phone: [facility] 04-17-2023 10:25-0500 Body weight 111.13 kg Mario Zoraida DO Work Phone: [facility] 04-17-2023 10:25-0500 Diastolic blood pressure 76 mm[Hg] Mario Zoraida DO Work Phone: [facility] 04-17-2023 10:25-0500 Systolic blood pressure 122 mm[Hg] Mario Zoraida DO Work Phone: [facility] 08-27-2021 11:09-0400 Body height 152.4 cm Gregorio Floyd MD Work Phone: [facility] 08-27-2021 11:09-0400 Body mass index (BMI) [Ratio] 46.68 kg/m2 Gregorio Floyd MD Work Phone: [facility] 08-27-2021 11:09-0400 Body weight 108.41 kg Gregorio Floyd MD Work Phone: [facility] 08-27-2021 11:09-0400 Diastolic blood pressure 86 mm[Hg] Gregorio Floyd MD Work Phone: [facility] 08-27-2021 11:09-0400 Heart rate 97 /min Gregorio Floyd MD Work Phone: [facility] 08-27-2021 11:09-0400 Systolic blood pressure 125 mm[Hg] Gregorio Floyd MD Work Phone: [facility] 08-25-2021 14:00-0400 Diastolic blood pressure 81 mm[Hg] Tyler Melina [facility] 08-25-2021 14:00-0400 Heart rate 85 /min Tyler Melina [facility] 08-25-2021 14:00-0400 Mean blood pressure 100 mm[Hg] Tyler Melina [facility] 08-25-2021 14:00-0400 Respiratory rate 16 /min Tyler Melina [facility] 08-25-2021 14:00-0400 SaO2% (BldA) [Mass fraction] 98 % Tyler Melina [facility] 08-25-2021 14:00-0400 Systolic blood pressure 138 mm[Hg] Tyler Melina [facility] 08-25-2021 01:00-0400 Diastolic blood pressure 85 mm[Hg] Tyler Melina [facility] 08-25-2021 01:00-0400 Heart rate 87 /min Tyler Melina [facility] 08-25-2021 01:00-0400 Respiratory rate 16 /min Tyler Melina [facility] 08-25-2021 01:00-0400 SaO2% (BldA) [Mass fraction] 98 % Tyler Melina [facility] 08-25-2021 01:00-0400 Systolic blood pressure 140 mm[Hg] Tyler Melina [facility] 08-25-2021 00:00-0400 Diastolic blood pressure 89 mm[Hg] Tyler Melina [facility] 08-25-2021 00:00-0400 Heart rate 95 /min Tyler Melina [facility] 08-25-2021 00:00-0400 SaO2% (BldA) [Mass fraction] 97 % Tyler Melina [facility] 08-25-2021 00:00-0400 Systolic blood pressure 149 mm[Hg] Tyler Melina [facility] 06-17-2022 22:50-0400 Body temperature 100.22 [degF] Tyler [facility]mers [facility] Encounters Encounter Date Encounter Type Care Provider Facility Start: 08-27-2023 End: 08-27-2023 ambulatory MARIO ZORAIDA Not Available Start: 08-26-2023 End: 08-26-2023 ambulatory KRISH TERRY Not Available Start: 08-21-2023 End: 08-22-2023 ambulatory [facility] Facility:[facility] Start: 08-21-2023 End: 08-22-2023 OB Triage [facility] Start: 08-21-2023 End: 08-21-2023 Emergency department patient visit Tyler SKristi [facility] Start: 08-20-2023 End: 08-20-2023 ambulatory SG OLIVERA [facility] Start: 08-13-2023 End: 08-13-[facility] Start: 08-11-2023 End: 08-11-2023 ambulatory MARIO ZORAIDA Not Available Start: 08-05-2023 End: 08-05-2023 ambulatory MARIO ZORAIDA Not Available Start: 07-29-2023 End: 07-29-2023 ambulatory [facility] Start: 07-28-2023 End: 07-28-2023 ambulatory MARIO ZORAIDA Not Available Start: 07-23-2023 End: 07-23-2023 ambulatory [facility] Start: 07-22-2023 End: 07-22-2023 ambulatory GLENDA CAM [facility] Start: 07-14-2023 End: 07-14-2023 ambulatory MARIO ZORAIDA Not Available Start: 07-10-2023 End: 07-10-2023 ambulatory [facility] Start: 06-30-2023 End: 06-30-2023 ambulatory MARIO ZORAIDA Not Available Start: 06-30-2023 End: 06-30-2023 ambulatory LEANA BURR [facility] Start: 06-23-2023 End: 06-23-2023 [facility] Start: 06-23-2023 End: 06-23-2023 ambulatory LEANA [facility] Start: 06-11-2023 End: 06-11-2023 ambulatory MARIO R ZORAIDA [facility] Start: 06-10-2023 End: 06-10-2023 ambulatory MARIO ZORAIDA Not Available Start: 06-09-2023 Orders Only Le[facility] franco MD [facility] [place] Start: 06-04-2023 Orders Only Leana franco MD Work Phone: [facility] Comment on above: Type 2 diabetes naz itus in , second trimester (Primary Dx) Start: 05-29-2023 End: 05-29-2023 ambulatory MARIO ZORAIDA Not Available Start: 05-29-2023 End: 05-29-2023 Office outpatient visit 25 minutes Leana Burr MD Work Phone: [facility] Comment on above: Type 2 diabetes naz itus in , second trimester (Primary Dx) Start: 05-29-2023 End: 05-29-2023 ambulatory LEANA [facility] Start: 05-20-2023 End: 05-20-2023 Orders Only Mary Guidry ORAL AND MAXILLOFACIAL SURGERY RESIDENT-CNM Work Phone: [facility] Comment on above: Type 2 diabetes naz itus in , second trimester (Primary Dx) Start: 05-20-2023 End: 05-20-2023 Office outpatient new 45 minutes Leana Burr MD [facility] [place] Comment on above: Type 2 diabetes naz itus in , second trimester (Primary Dx) Start: 05-13-2023 Telephone encounter Joann pastrana RN Work Phone: [facility] Start: 05-12-2023 Telephone encounter Joann pastrana RN Work Phone: [facility] Start: 05-12-2023 End: 05-12-2023 ambulatory SHWETHA WALTON Not Available Start: 05-08-2023 Orders Only Queta Zazueta [facility] r[facility]- Medicine at [facility] Comment on above: Type 2 diabetes naz itus in , second trimester (Primary Dx) Start: 05-07-2023 End: 05-07-2023 Office outpatient visit 25 minutes Opal Heath 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 Work Phone: [facility] Comment on above: Type 2 diabetes naz itus in , second trimester (Primary Dx); Insulin pump in place; HTN in , chronic Start: 05-07-2023 End: 05-07-[address] Work Phone: [facility] Comment on above: Type 2 diabetes naz itus in , second trimester (Primary Dx); Pre-existing type 2 diabetes mellitus during in first trimester Start: 04-23-2023 Chart abstracting Opal falk 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 Work Phone: [facility] Start: 04-23-2023 Telephone encounter Danyell Ortiz RN Ri ternal- [facility] at [facility] Start: 04-17-2023 End: 04-17-2023 Office outpatient visit [...] End: 08-27-2021 ambulatory CHAMP LAUREANO [facility] Start: 08-27-2021 End: 08-27-2021 Office outpatient new 60 minutes Champ Laureano MD Work Phone: [facility] Comment on above: Type 2 diabetes naz itus with hyperglycemia, unspecified whether sales service representative insulin use (HCC) (Primary Dx); Thyroid disorder; Hair loss Start: 08-24-2021 End: 08-25-2021 Emergency department patient visit Tyler [facility] Start: 08-15-2021 End: 08-15-2021 ambulatory GREGORY FAN . Facility:[facility] Start: 06-13-2021 End: 06-14-[address] CHAMP LAUREANO . 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 Work Phone: Start: 04-01-2023 Bacteria identified in [...] malign ant neoplasm of cervix [facility] Start: 05-28-2024 [facility] Start: 05-07-2024 Adult BMI Screening [facility] Start: 05-07-2024 Tobacco Screening [facility] Start: 05-07-2024 End: 05-07-2024 US MFM with or without consult US MFM with or without consult Imaging Routine Type 2 diabetes mellitus in , second trimester Expected: 05/07/2024 (Approximate), Expires: 05/07/2024 [employer] Work Phone: Comment on above: Expected: 05/07/2024 (Approximate), Expires: 05/07/2024 Start: 11-09-2023 Influenza vaccination Influenza Vacc ine [facility] Start: 06-11-2023 End: 06-11-2023 Patient encounter procedure 06/11/2023 1:00 PM EDT Appointment [facility] [address] [place] [address] [facility] Start: 06-10-2023 End: 06-10-2023 Patient encounter procedure 06/10/2023 3:00 PM EDT Office Visit [facility] [address] [place] [address] Leana Burr MD [address] [place] [address] [facility] Start: 06-04-2023 End: 06-04-2023 Patient encounter procedure 06/04/2023 10:45 AM EDT Office Visit [facility] [address] [place] [id number] Leana Burr MD [address] [place] [address] [facility] Start: 05-29-2023 End: 05-29-2023 Patient encounter procedure 05/29/2023 10:45 AM EDT Office Visit [facility] [address] [place] [address] Leana Burr MD [address] [facility] [address] [place] [address] [facility] Start: 05-20-2023 End: 05-20-2023 Telemedicine consultation with patient 05/20/2023 8:00 AM EDT Telemedicine [facility] [address] [place] [address] Leana Burr MD [address] [place] [address] [facility] Start: 05-12-2023 End: 05-12-2023 Patient encounter procedure 05/12/2023 8:30 AM EST Routine [facility] [address] [place] [address] Shwetha Walton PA [address] [place] [address] [facility] Start: 05-07-2023 End: 05-07-2023 Patient encounter procedure 05/07/2023 3:00 PM EST Office Visit [facility] [address] [place] [address] Opal Heath, 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 [address] [place] [address] [facility] Start: 05-07-2023 End: 05-07-2023 ambulatory 05/07/2023 1:00 PM EST Support Visit [facility] [address] [place] [address] Shital Chen, RD [address] [facility] [address] [place] [address] [facility] Start: 11-08-2022 Influenza vaccination Influenza Vacc ine [facility] Start: 11-27-2021 End: 11-27-2021 Patient encounter procedure 11/27/2021 Office Visit Endocrinology Gregorio Floyd MD [facility] [place] [address] [facility] Start: 11-27-2021 Hemoglobin A1c measurement A1C [facility] Start: 11-08-2021 Influenza vaccination Sequenti al Influenza Vaccine (Season Ended) [facility] Start: 06-25-2021 End: 06-25-2021 Patient encounter procedure 06/25/2021 Office Visit Endocrinology Gregorio Floyd MD [address] [place] [address] [facility] Start: 11-08-2020 Influenza vaccination Sequenti al Influenza Vaccine (#1) [facility] Start: 11-14-2015 Screening for malign ant neoplasm of cervix Pap Smear [facility] Start: 2013 DTaP,Tdap and Td Vaccines (1 - Tdap) DTaP,Tdap and Td Vaccines (1 - Tdap) [facility] Start: 2012 Adult BMI Follow Up Plan Adult BMI Follow Up Plan [facility] Start: 2012 Adult BMI Screening Adult BMI Screen ing [facility] Start: 2012 Diabetic foot examination Diabetic Foot Exam [facility] Start: 2012 Hepatitis C screening Hepatitis C Sc reening [facility] Start: 2009 HIV screening HIV Screening [facility] Start: 2006 Depression screening using PHQ-9 (Patient Health Questionnaire 9) score [facility] Start: 2006 Tobacco Screening Tobacco Screening [facility] Start: 2005 DTaP,Tdap and Td Vaccines (5 - Tdap) DTaP,Tdap and Td Vaccines (5 - Tdap) [facility] Start: 2004 Diabetic foot examination Foot Exam [facility] Start: 2004 Microalbumin measurement, urine, quantitative Urine Microalbumin [facility] Start: 2004 Ophthalmic examinati on and evaluation Ophthalmology Exam [facility] Start: 2000 Pneumococcal Vaccine : Ped or At-Risk (1 - PCV) Pneumococcal Vaccine: Ped or At-Risk (1 - PCV) [facility] [facility] Start: 11-14-1999 COVID-19 Vaccine (#1) COVID-19 Vacci ne (#1) [facility] Start: 11-14-1999 COVID-19 Vaccine (1) COVID-19 Vaccin e (1) [facility] Start: 1997 History and physical examination, annual for health maintenance Wellness Visit [facility] Start: 1994 Glaucoma screening Diabetic Op hthalmology Exam [facility] Start: 1994 Screening for malign ant neoplasm of cervix Pap Smear [facility] Start: 1994 Tetanus vaccination Tetanus: Every 1 0yrs [facility] Start: 1994 Urine screening for protein Urine Microalbumin [facility] End: 08-27-2022 C peptide [Mass/volume] in Serum or Plasma C-peptide Lab Routine Type 2 diabetes mellitus with hyperglycemia, unspecified whether [facility] insulin use (HCC) 1 Occurrences starting 08/27/2021 until 08/27/2022 [facility] Comment on above: 1 Occurrences starti ng 08/27/2021 until 08/27/2022 End: 05-19-2024 C-peptide C-peptide Lab Routine Type 2 diabetes mellitus in , second trimester 1 Occurrences starting 05/20/2023 until 05/19/2024 [facility] Comment on above: 1 Occurrences starti ng 05/20/2023 until 05/19/2024 End: 05-19-2024 GAD65 Ab assay GAD65 Ab assay Lab Routine Type 2 diabetes mellitus in , second trimester 1 Occurrences starting 05/20/2023 until 05/19/2024 [employer] Work Phone: Comment on above: 1 Occurrences starti ng 05/20/2023 until 05/19/2024 End: 08-27-2022 Glucose [Mass/volume] in Serum or Plasma Glucose Lab Routine Type 2 diabetes mellitus with hyperglycemia, unspecified whether [facility] insulin use (HCC) 1 Occurrences starting 08/27/2021 until 08/27/2022 [facility] Comment on above: 1 Occurrences starti ng 08/27/2021 until 08/27/2022 End: 05-19-2024 Glucose [Mass/volume] in Serum or Plasma Glucose Lab Routine Type 2 diabetes mellitus in , second trimester 1 Occurrences starting 05/20/2023 until 05/19/2024 [facility] Comment on above: 1 Occurrences starti ng 05/20/2023 until 05/19/2024 Hepatic function 200 0 panel - Serum or Plasma Hepatic function panel Lab Routine Type 2 diabetes mellitus with hyperglycemia, unspecified whether sales service representative insulin use (HCC) Ordered: 08/27/2021 [facility] Comment on above: Ordered: 08/27/2021 End: 05-19-2024 Insulinoma Associated Antibody 2 Insulinoma Associated Antibody 2 Lab Routine Type 2 diabetes mellitus in , second trimester 1 Occurrences starting 05/20/2023 until 05/19/2024 [facility] Comment on above: 1 Occurrences starti ng 05/20/2023 until 05/19/2024 End: 08-27-2022 Islet cell antibody measurement Anti-Islet Cell (GAD65) Antibody Lab Routine Type 2 diabetes mellitus with hyperglycemia, unspecified whether [facility] insulin use (HCC) 1 Occurrences starting 08/27/2021 until 08/27/2022 [facility] Comment on above: 1 Occurrences starti ng 08/27/2021 until 08/27/2022 End: 08-27-2022 Lipid 1996 panel - Serum or Plasma Lipid Panel Lab Routine Type 2 diabetes mellitus with hyperglycemia, unspecified whether sales service representative insulin use (HCC) 1 Occurrences starting 08/27/2021 until 08/27/2022 [facility] Comment on above: 1 Occurrences starti ng 08/27/2021 until 08/27/2022 Microalbumin measurement, urine, quantitative Microalbumin/Creatinine Ratio, UR Random Lab Routine Type 2 diabetes mellitus with hyperglycemia, unspecified whether sales service representative insulin use (HCC) Ordered: 08/27/2021 [facility] Work Phone: Comment on above: Ordered: 08/27/2021 Payers Date Payer Category Payer Unknown [id number] 2019 Medicaid [id number] 1994 Unknown [id number] 2.16. 840.1.316977.3.579.2.903 1994 Unknown [id number] 2.16.84 0.1.953943.3.579.2.593 1994 Unknown [id number] 2.16.84 0.1.291370.3.579.2.593 1994 Unknown [id number] 2.16.84 0.1.012150.3.579.2.593 1994 Unknown [id number] 2.16.84 0.1.671801.3.579.2.593 1994 Unknown [id number] 2.16.84 0.1.589849.3.579.2.593 1994 Unknown [id number] 2.16.84 0.1.199126.3.579.2.593 1994 Unknown [id number] 2.16.84 0.1.399253.3.579.2.593 1994 Unknown [id number] 2.16.84 0.1.108634.3.579.2.593 1994 Unknown [id number] 2.16.84 0.1.377376.3.579.2.593 1994 Unknown [id number] 2.16.84 0.1.018271.3.579.2.593 1994 Unknown [id number] 2.16.84 0.1.855032.3.579.2.593 1994 Unknown [id number] 2.16.84 0.1.939572.3.579.2.593 1994 Unknown [id number] 2.16.84 0.1.413513.3.579.2.593 1994 Unknown [id number] 2.16.8 40.1.866552.3.579.2.1286 1994 Unknown [id number] 2.16.8 40.1.970831.3.579.2.1286 1994 Unknown [id number] 2.16.8 40.1.505660.3.579.2.1286 1994 Unknown [id number] 2.16.8 40.1.481847.3.579.2.1286 1994 Unknown [id number] 2.16.8 40.1.665598.3.579.2.1285 1994 Unknown [id number] 2.16.8 40.1.072405.3.579.2.1285 1994 Unknown [id number] 2.16.8 40.1.423440.3.579.2.1285 1994 Unknown [id number] 2.16.8 40.1.224942.3.579.2.1285 1994 Unknown [id number] 2.16.8 40.1.695473.3.579.2.1285 1994 Unknown [id number] 2.16.8 40.1.921539.3.579.2.1285 1994 Unknown [id number] 2.16.8 40.1.328139.3.579.2.1285 1994 Unknown [id number] 2.16.8 40.1.063808.3.579.2.1285 1994 Unknown [id number] 2.16.8 40.1.057417.3.579.2.1285 1994 Unknown [id number] 2.16.8 40.1.336504.3.579.2.1285 1994 Unknown [id number] 2.16.8 40.1.230842.3.579.2.1285 1994 Unknown [id number] 2.16.8 40.1.771365.3.579.2.1285 1994 Unknown [id number] 2.16.8 40.1.183863.3.579.2. 1994 Unknown [id number] 2.16.8 40.1.739108.3.579.2. 1994 Unknown [id number] 2.16.8 40.1.344563.3.579.2. 1994 Unknown [id number] 2.16.8 40.1.711154.3.579.2. 1994 Unknown [id number] 2.16.8 40.1.864021.3.579.2.727 1994 Unknown [id number] 2.16.84 0.1.635529.3.579.2.1258 1994 Unknown [id number] 2.16.84 0.1.980793.3.579.2.1258 1994 Unknown [id number] 2.16.84 0.1.820493.3.579.2.1258 1994 Unknown [id number] 2.16.84 0.1.137149.3.579.2.1258 1994 Unknown [id number] 2.16.84 0.1.846605.3.579.2.1258 1994 Unknown [id number] 2.16.84 0.1.571946.3.579.2.1258 1994 Unknown [id number] 2.16.84 0.1.565098.3.579.2.1258 1994 Unknown [id number] 2.16.84 0.1.474922.3.579.2.1258 1994 Unknown [id number] 2.16.84 0.1.324720.3.579.2.1258 1994 Unknown [id number] 2.16.84 0.1.383757.3.579.2.1258 1994 Unknown [id number] 2.16.84 0.1.663878.3.579.2.1258 1994 Unknown [id number] 2.16.84 0.1.267729.3.579.2.1258 1994 Unknown [id number] 2.16.84 0.1.995323.3.579.2.1258 1994 Unknown [id number] 2.16.840 .1.659319.3.579.2.1258 1994 Unknown [id number] 2.16.8 40.1.140564.3.579.2.727 1959 Medicaid [id number] 1959 Unknown [id number] 1959 Unknown [id number] 1959 Unknown [id number] Social History Date Type Detail Facility Start: 04-23-2023 Tobacco smoking status NHIS Tobacco smoking consumption unknown [facility] Start: 1994 Sex Assigned At Not on file [facility] Start: 08-24-2021 Tobacco smoking status Never [facility] Start: 03-24-2023 End: 05-07-2023 Sex Assigned At Female [facility] Start: 08-17-2021 End: 08-27-2021 Exposure to SARS-CoV-2 (event) Not sure [facility] Start: 03-24-2023 End: 05-07-2023 Tobacco smoking status NHIS Never smoked tobacco [facility] Start: 04-17-2023 Alcohol intake Lifetime non-d jorge (finding) [facility] Start: 03-24-2023 End: 05-07-2023 History of Social function [facility] Start: 02-04-2023 [facility] Start: 1994 Sex Assigned At Female [facility] Start: 02-27-2023 Gender identity Identifies as female gender (finding) [facility] Start: 05-07-2023 Tobacco use and exposure Smokeless tobacco non-user [facility] Start: 05-07-2023 End: 05-29-2023 Alcohol intake Ex-drinker (finding) [facility] Medical Equipment Procedure Code Equipment Code Equipment Origin al Text Equipment Identifier Dates 1 each by Other route if needed [id number] Start: 03-11-2023 Use a new needle with each injection [id number] Start: 05-07-2023 Functional Status Date Assessment Result Facility 08-21-2023 Functional Status N/A [facility] 08-21-2023 Functional Status N/A [facility] 08-24-2021 Functional Status N/A [facility] Clinical Notes 08-24-2021 to 08-22-2023 Note Date & Type Note Facility 08-22-2023 Hospital Discharg e instructions Patient Education 08/21/2023 23:40:58 Vaginal Bleeding During , Third Trimester, Tglc-wg-Qiwu Vaginal Bleeding During , Third Trimester A [...] you with your normal activities. Medicines Take tdli-oah-wkkvlcf and prescription medicines only as told by [...] provider. Document Revised: 11/16/2020 Document Reviewed: 11/16/2020 [employer] Patient Education 2022 [employer]. 08/21/2023 23:40:58 Hypertension During , Ghqg-eb-Eppw Hypertension During Hypertension is also called high [...] are best for you. General instructions Take pwti-bwx-chvzjcc and prescription medicines only as told by [...] provider. Document Revised: 11/16/2020 Document Reviewed: 11/16/2020 [employer] Patient Education 2022 [employer] 08/21/2023 23:40:58 Form - Movement Counts [...] Document Reviewed: 10/14/2019 Elsevier Patient Education 2022 [employer] Inc. Follow Up Care 08/21/2023 21:25:46 With:Mario CONWAY Address: [address] , [place] [address]- Business (1) When:08/22/2023 Comments:Call Dr if fever>100.5 F, heavy bleedingCall for severe abdominal painCall physician for heavy vaginal bleedingCall physician if symptoms worsenReturn for contractions closer, longer, harderReturn for decreased movementReturn if ruptured membranes or vaginal bleeding [facility] 08-22-2023 Note The following Pratibha t Education Materials have been given to the patient: EducationMaterial [facility] 08-21-2023 Hospital Discharg e instructions Patient [...] your health care provider. General instructions Take whqk-kqg-zeqtbkf and prescription medicines only as told by [...] provider. Document Revised: 05/25/2020 Document Reviewed: 05/25/2020 [employer] Patient Education 2022 [employer]. Follow Up Care 08/21/2023 19:05:36 With:Roosevelt Maldonado Address: [address] [place] [address]- Business (1) When:08/24/2023 21:04:34 With:Champ Laureano Address: [address] [place] [address]- Business (1) When:Within 3 Day(s) [facility] 08-21-2023 Evaluation + Plan note Extrac [place] from: Title:ED Note Author:Tyler Summers DO. Date :08/21/23 Closed avulsion fracture of ankle [...] Views Right XR Wrist 3+ Views Left [facility]03-21-2024 History of Present illness Narrative* Leana Burr MD - 05/29/2023 10:45 AM EDT [facility]- Diabetes Visit TELEMEDICINE VISIT: This is an audiovisual visit. This is done to assess the patient and to determine the best medical care. The patient was located at home in [place] and the provider was located at the medical office in [place]. The patient states they are not driving [...] of Delivery: 10/28/23. She is referred from [facility] who is managing along with us. She has had her diabetes education with [facility]. Please see media for full pump [...] within last year: none. Complications: History of RI, CHF: none Medications none Last Lipid panel drawn due after History of HTN: no Medications none History of Diabetic Retinopathy: unknown. Last seen Assistant Mechanic unknown History of peripheral neuropathy: none [...] History: Diagnosis Date Anxiety Depression Diabetes mellitus ([facility]-H[facility]) Disease of thyroid gland Hypertension History [...] order of 22% in those who have aybjnusyaaK1R 8.5 and higher. Patient aware that maternal [...] breakfast: try low sugar protein shakes or belgian yogurt if appetite lower inthe AM. Complications/ [...] once per trimester with MFM as well. [facility] History of Present illness Narrative* Leana [...] of Delivery: 10/28/23. She is referred from [facility] who is managing along with us. She has had her diabetes education with [facility]. Please see media for full pump download. Still on automated basal and it is turning off when she isin glucose ranges. Unfortunately, her basal rates have jefrfey increased and would give her 20 units [...] within last year: none. Complications: History of RI, CHF: none Medications none Last Lipid panel drawn due after History of HTN: no Medications none History of Diabetic Retinopathy: unknown. Last seen Assistant Mechanic unknown History of peripheral neuropathy: none [...] History: Diagnosis Date Anxiety Depression Diabetes mellitus ([facility]) Disease of thyroid gland Hypertension No past [...] 10/28/23. She has had diabetes education with [facility]. We reviewed the following We have discussed the issue of insulin-dependent diabetes mellitus and the effect of in detail. There is an elevated risk of malformation of the order of 22% in those who have prwvxlfpmuJ4Y 8.5 and higher. Patient aware that maternal [...] considerably as her current automated basal is pylezfrnb55 units but her basal rates were recently [...] breakfast: try low sugar protein shakes or belgian yogurt if appetite lower inthe AM. Complications/ [...] with MFM as well. LEANA BURR MD [facility] documented in this encounterUniversity Hospitals Beachwood Medical CenterAvillion Beaumont [id number] Miscellaneous Notes* Telephone Encounter - Joann Walsh [...] and denied any questions. [facility]Hol[facility] Veniti [id number] Telephone encounter Note* Telephone Encounter - Joann [...] meals. Verbalized understanding and denied any questions. [facility] Work Phone: 1(321) 413-220303-04-2024 Miscellaneous Notes* Telephone Encounter - Joann Walsh [...] after M provider reviews. documented in this encounterRutland [facility] CenterCog[facility]03-04-2024 Telephone encounter Note* Telephone Encounter - Joann Walsh RN - 05/12/2023 4:36 PM EST Summary: [facility] Insulin Pump Questions Called and spoke [...] week 05/20/23. Informed would call back after [facility] provider reviews. [facility] [employer] Work Phone: 1(424) 355-499402-28-2024 History of Present illness Narrative* Queta Zazueta [...] results Have you been seen here at [facility] in a previous ? N/a Recent ER visits or hospitalizations? No Bring blood sugar log or meter with you today? (Please bring them with you for every visit at [facility]) yes Traveled outside the country in the past 6 month no Any concerns that you would like me to mention to the provider today? No * SABINA Uribe - 05/07/2023 3:00 PM EST REASON FOR [...] no complaints. She is being followed at [facility] Type 2 DM. See Dexcom [...] TSH 1.05 04/01/2023 No results found for: [id number] No results found for: CREATININE , BUN [...] by e-mail to: or by fax to: [phone] 40 Minutes spent ihkz-of-kqix; more than 50% of time spent counseling and/or coordinating care withadditional time for record review and communication to referring provider. SABINA Uribe 05/07/23 1556 documented in [facility] encounterMag[facility]02-[facility]24 History of Present illness Narrative* Danyell [...] hour Testing: Results A1C results and date: 1/23/24 HGBA1C was 7.9 Pre- BMI: Could not [...] care for you: OB Provider Family Doctor Bathing Suit Maker Name: Sebastian Name: No primary care provider on file. Name:[facility] City: City: City: Last time seen: [...] demonstration Is there anything about your culture, congregation, or personal beliefs we need to know about to care for you: Other none Primary Language spoken: Grenadian [22] Primary Language for learning: Grenadian Are you currently in a relationship where you are physically hurt, threatened or made to fee afraid? [] Yes [x] No Director [employer] needed? [] Yes [x] No Marital status/Living [...] If yes, where: On thge following scale, [place] the number, which describes your current level [...] Past Medical History: Diagnosis Date Diabetes mellitus ([facility]) Disease of thyroid gland [...] Educational Level high school Family issues none Cultural/ethnic/mu-ism influences none Exercise approved by MD? Current Exercise program walking Who prepares the meal pt Who purchase food at your home? pt Equipment use for cooking/food storage has all Food Assistance(Ex.WIC, Food [employer]) has apt Dining out Yes 1 time per month Appetite/Appetite changes increased Weight History stable Do you have cats at home? Feeding Plans Breast Feeding If you have cats, who cleans the litter box? Cravings/Aversions/Pica none currently Nutrition Assessment Worksheet: Week/Weekend Food Recall Breakfast Old Agency Or cereal Or eggs Snack Lunch Grilled [...] face time 40 minutes. documented in this encounterRutland Regional Medical CenterCogec[facility]02-28-2024 Instructions* Patient Instructions* Danyell Ortiz RN - [...] 4 HOURS WHILE AWAKE documented in this encounterMag[facility] Hospital02-14-2024 Miscellaneous Notes* Telephone Encounter - Danyell Ortiz RN - 04/23/2023 12:23 PM EST Called pt due toher not coming to her appt today and she stated she had left a message that she needed to tammi due to not having transportation to her appt this morning. Her name given back to the schedulers to call and resched her. documented in this encounterMagruder Hospital02-14-2024 Telephone encounter Note* Telephone Encounter - Danyell Ortiz RN - 04/23/2023 12:23 PM EST Called pt due toher not coming to her appt today and she stated she had left a message that she needed to tammi due to not having transportation to her appt this morning. Her name given back to the schedulers to call and resched her. [facility]02-08-2024 History of Present illness Narrative* Mario [...] fracture, right Type 2 diabetes mellitus ([facility]) Family History Problem Relation [...] note reviewed. Exam conducted with a rn wellness present. Vitals: Estimated body mass index is 47.85 kg/m as calculated from the following: Height as of 11/15/21: 5'. Weight as of this encounter: 245 [...] of: Mario Conway DO documented in this encounterDeaconess Incarnate Word Health [id number] Instructions* Patient Instructions* Gregorio Floyd MD - [...] hold levothyroxine for now. documented in this [id number] History of Present illness Narrative* Gregorio Floyd [...] ALKPHOS, BILITOT No results found for: TSH, R0CZTOU, THYROIDAB No results found for: PTH, CALCIUM, JACQUSE, PHOS Lab Results Component Value Date HGBA1C 7.7 (A) 08/27/2021 No results found for: LDLCALC, CHOL, HDL, TRIG, CHOLHDL No results found for: MICALBCREAT, [id number] No results found for: CPEPTIDE Assessment and [...] acanthosis nigricans indicate T2DM, but will get NAU59-Mo and c-peptide/glucose given the young age of [...] Gregorio Floyd MD Endocrinology documented in this [id number] Hospital Discharge instructions Patient Education 08/25/2021 02:09:26 [...] Ask your health care provider for a fvtt-lb-qdiy plan for gradually returning to activities. Ask [...] your friends, family, a trusted colleague, and body work auto trimmer about your injury, symptoms, and restrictions. Have them watch for any new or worsening problems. General instructions Take kqck-dgr-omublrt and prescription medicines only as told by [...] 02/24/2006 Document Revised: 03/24/2019 Document Reviewed: 03/19/2019 [employer] Patient Education 2020 [employer] 08/25/2021 02:09:26 Cervical Sprain Cervical Sprain [...] provider or physical therapist. General instructions Take qvic-kbc-ivovgyk and prescription medicines only as told by [...] 12/22/2007 Document Revised: 06/16/2019 Document Reviewed: 10/23/2016 [employer] Patient Education 2019 [employer]. Follow Up Care 08/24/2021 22:42:21 With:Champ Laureano Address: [address] [place] [phone]- Business (1) When:Within 3 Day(s) [facility]06-17-2022 Evaluation + Plan noteExtracted from: Title:ED [...] w/o Contrast CT Spine Cervical w/o Contrast [facility]* Diagnosis Thyroid disorder- Primary Unspecified disorder of thyroid Hair loss Unspecified alopecia [facility] Diagnosis Type 2 diabetes mellitus with hyperglycemia, unspecified whether sales service representative insulin use (HCC)- Primary Thyroid disorder Unspecified [...] in , chronic documented in this encounter [facility]* Diagnosis Type 2 diabetes mellitus in , second trimester- Primary Pre-existing type 2 diabetes mellitus during in first trimester documented in this encounter [facility]* Diagnosis Type 2 diabetes mellitus in , second trimester- Primary documented in this encounter [facility]* Diagnosis Type 2 diabetes mellitus in , second trimester- Primary [facility]* Diagnosis Type 2 diabetes mellitus in , second trimester- Primary [facility]* Diagnosis Type 2 diabetes mellitus in , second trimester- Primary [facility] SystemHospital course Narrative No data available for this section [facility] HospitalInstructionsNot on filedocumented in this encounter [facility] SystemInstructionsNot on filedocumented in this encounter [facility] SystemInstructionsNot on filedocumented in this encounter [facility] SystemInstructionsNot on filedocumented in this encounter [facility] SystemInstructionsNot on filedocumented in this encounter [facility] SystemInstructionsNot on filedocumented in this encounter [facility] SystemProgress note No data available for this section [facility] HospitalReason for referral (narrative)* Consultation (Routine) - Pending Review Specialty Diagnoses / Procedures Referred By Juan Antonio montemayor Referred To Contact Maternal and Medicine Diagnoses Type 2 diabetes mellitus in , second trimester Insulin pump in place Opal Heath APRN-CNP [address] [place] [address] Leana Burr MD [address], [address] [address] Referral ID Status Reason Start Date Expiration Date Visits Requested Visits Authorized [id number] Pending Review Specialty Services Required 05/07/2023 05/06/2024 1 1 [facility] for referral (narrative)* Consultation (Routine) - Pending Review Specialty Diagnoses / Procedures Referred By Contac t Referred To Contact Endocrinology Diagnoses Type 2 diabetes mellitus in , second trimester Mary Guid[facility] [address], [address] [place] [address] Leana Burr MD [facility] [address], [address] [address] Referral ID Status Reason Start Date Expiration Date Visits Requested Visits Authorized [id number] Pending Review Specialty Services Required 05/20/2023 05/19/2024 1 1 [facility] for visit Narrative* Consultation (Routine) - Pending Review Specialty Diagnoses / Procedures Referred By Juan Antonio t Referred To Contact Endocrinology Diagnoses Type 2 diabetes mellitus in , second trimester Mary Guid[facility] [address], [address] [place] [id number] Leana Burr MD [facility] [address] [address] Referral ID Status Reason Start Date Expiration Date Visits Requested Visits Authorized [id number] Pending Review Specialty Services Required 05/20/2023 05/19/2024 1 1 [facility] Summary Purpose Family History No Family [...] FoundDocuments on File Type Date Recorded 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 Advance Directives and Livin g Will 05/02/2021 12:00 AM Reason for Referral Specialty Diagnoses / Procedures Referred By Contac t Referred To Contact Endocrinology Diagnoses Thyroid disorder Hair loss Champ Laureano MD [address] [facility] [place] [address] [place] [address] Gregorio Floyd MD [address] [place] [phone] Referral ID Status Reason Start Date Expiration Date Visits Requested Visits Authorized [id number] Authorized Specialty Services Required/Pat ient's Best Interest 05/04/2021 05/04/2022 1 1 Specialty Diagnoses / Procedures Referred By Contac t Referred To Contact Maternal and Medicine Diagnoses Type 2 diabetes mellitus in , second trimester Procedures [facility] with or without consult Opal Heath, 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 [address] [place] [address] [facility] Maternal [facility] [address] [place] [address] Referral ID Status Reason Start Date Expiration Date V isits Requested Visits Authorized [id number] Pending Review 05/08/2023 05/07/2024 1 1 Additional Source Comments INFORMATION SOURCE (unrecogn ized section and content) DATE CREATED AUTHOR 02/06/2021 [facility] DATE CREATED AUTHOR AUTHOR'S ORGANIZ ATION 08/27/2021 [facility] DATE CREATED AUTHOR AUTHOR'S ORGANIZ ATION 06/02/2022 [facility] DATE CREATED AUTHOR AUTHOR'S ORGANIZ ATION 08/14/2023 [facility] DATE CREATED AUTHOR AUTHOR'S ORGANIZ ATION 08/21/2023 [facility] DATE CREATED AUTHOR AUTHOR'S ORGANIZ ATION 08/23/2023 [facility] DATE CREATED AUTHOR AUTHOR'S ORGANIZ ATION 08/27/2023 [facility] EPIC DATE CREATED AUTHOR AUTHOR'S ORGANIZ ATION 09/02/2023 [facility] Care Teams (unrecognized sec tion and content) Patient Advocate Relationship Specialty Start Date End Date Champ Laureano MD [address] [place] [address] PCP - General Family Medicine 05/02/21 Patient Advocate Relationship Specialty Start Date End Date Champ Laureano MD [address] [place] [address] PCP - General Family Medicine 05/02/21 Patient Advocate Relationship Specialty Start Date End Date Champ Laureano MD [address] [place] [address] PCP - General 03/13/23 Reason for Visit (unrecogniz ed section and content) Reason Comments Thyroid Problem Specialty Diagnoses / Procedures Referred By Contac t Referred To Contact Endocrinology Diagnoses Thyroid disorder Hair loss Champ Laureano MD [address] [place] [address] Gregorio Floyd MD [address] [place] [phone] Referral ID Status Reason Start Date Expiration Date V isits Requested Visits Authorized [id number] Closed Specialty Services Required/Deanna ent's Best Interest 05/04/2021 05/04/2022 1 1 Reason Comments ER Follow-up Reason Comments [id number] Reason Comments Diabetes Specialty Diagnoses / Procedures Referred By Contac t Referred To Contact Maternal and Medicine Diagnoses Pre-existing type 2 diabetes mellitus during in first trimester Mario Conway R, DO [address] , [place] [address] [facility] Maternal [facility] [address] [place] [address] Referral ID Status Reason Start Date Expiration Date Visits Requested Visits Authorized [id number] Pending Review Specialty Services Required 04/15/2023 04/14/2024 [...] BE BASED ON THE PRIMARY CLINICAL RECORDS. [facility] provides no warranty or guarantee of the accuracy or completeness of information in this document.
--- NOTE | 2023-09-06 10:57 | ECG_ITS ---
[facility] Test Date: 2023-09-06 Pat Name: TESS CALVERT Department: Room: - Gender: Female Measurement Supervisor: : 1995 Requested By: CHAMP LAUREANO Order Number: [id number] Reading MD: CHAMP LAUREANO Measurements Intervals [place] Rate: 108 P: 35 NC: 144 QRS: 49 QRSD: 80 T: 42 QT: 336 QTc: 399 Interpretive Statements 1120 Sinus tachycardia 9140 abnormal rhythm ECG Compared to ECG 07/30/2023 14:43:29 No significant changes Electronically Signed On 09-08-2023 6:44:59 EDT by CHAMP LAUREANO
--- NOTE | 2023-09-06 11:01 | ED_ITS ---
HPI HPI - General Adult General Chief complaint: Headache Stated complaint: MIGRAINE 8 MONTH Time Seen by Provider: 09/06/23 10:47 Source: patient Mode of arrival: walk-in Limitations: no limitations History of Present Illness HPI narrative: 27-year-old female who is 1 para 0 and 32 weeks presents for headache. It started 2 days ago and its bitemporal. No trauma fever or stiff neck. She has had elevated blood pressure during this , - induced hypertension. She has been taking her blood pressure medication regularly, has not missed any doses. She has not noticed any ankle swelling and she has not been vomiting. She took Tylenol for it last night. Related Data Home Medications ?Medication ?Instructions ?Recorded ?Confirmed desvenlafaxine succinate 100 mg 100 mg PO Q24H 04/16/23 09/06/23 tablet,extended release 24 hr insulin lispro 100 unit/mL 1 sliding scale dose subcut Q6H 04/16/23 09/06/23 subcutaneous solution (Humalog PRN hyperglycemia U-100 Insulin) lamotrigine 100 mg tablet 100 mg PO Q12H 04/16/23 09/06/23 pantoprazole 40 mg tablet,delayed 40 mg PO DAILY 04/16/23 09/06/23 release labetalol 200 mg tablet 200 mg PO TID 07/30/23 09/06/23 aspirin 81 mg capsule 81 mg PO DAILY 08/01/23 09/06/23 insulin glargine 100 unit/mL 18 unit subcut QPM 08/01/23 09/06/23 subcutaneous solution (Lantus U-100 Insulin) Allergies Allergy/AdvReac Type Severity Reaction Status Date / Time No Known Drug Allergies Allergy Verified 09/06/23 10:52 Opioid HPI Opioid Management Most Recent Opioid Data: Last Pain Scale 8 09/06/23 11:21 Last MAR Pain Assessment 09/06/23 11:21 Review of Systems ROS Narrative A ten point review of systems is negative except as noted above. PFSH PFSH Social History Smoking status: Never smoker Exam Narrative Exam Narrative: Nurses note and vital signs reviewed and patient is not hypoxic. General: The patient appears well and in no apparent distress. Patient is resting comfortably on cart. Skin: Warm, dry, no pallor noted. There is no rash noted. Head: Normocephalic, atraumatic, neck supple, no nuchal rigidity Eye: Normal conjunctiva, no drainage Ears, Nose, Mouth, and Throat: oral mucosa is moist. Nares patent. Cardiovascular: Regular Rate and Rhythm Respiratory: Patient is in no distress, no accessory muscle use, lungs are clear to auscultation, no wheezing, rales or rhonchi Back: non-tender GI: Gravid, nontender Musculoskeletal: The patient has no evidence of calf tenderness, no pitting edema, symmetrical pulses noted bilaterally. Walking boot present on right leg. Neurological: A&O, normal speech Psychiatric: Cooperative Constitutional Vital Signs, click to edit/add: Last Vital Signs Temp 98.2 F 09/06/23 10:50 Pulse 106 H 09/06/23 12:31 Resp 17 09/06/23 12:31 BP 137/85 09/06/23 12:31 Pulse Ox 97 09/06/23 12:31 O2 Del Method Room Air 09/06/23 10:50 Course Vital Signs Vital signs: Vital Signs Temperature 98.2 F 09/06/23 10:50 Pulse Rate 122 H 09/06/23 10:50 Respiratory Rate 18 09/06/23 10:50 Blood Pressure 137/97 H 09/06/23 10:50 Pulse Oximetry 97 09/06/23 10:50 Oxygen Delivery Method Room Air 09/06/23 10:50 Temperature 98.2 F 09/06/23 10:50 Pulse Rate 106 H 09/06/23 12:31 Respiratory Rate 17 09/06/23 12:31 Blood Pressure 137/85 09/06/23 12:31 Pulse Oximetry 97 09/06/23 12:31 Oxygen Delivery Method Room Air 09/06/23 10:50 Medical Decision Making MDM Narrative Medical decision making narrative: Blood work is essentially as expected for her state of . Case discussed with Dr. Yin and the patient is discharged home. The patient's blood pressure has come down appropriately without direct intervention. She was given Tylenol for her headache and feels improved and she is able to be discharged home. 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 Differential Diagnosis Differential Diagnosis: -induced hypertension, hypertension, headache Lab Data Lab results reviewed: Yes I reviewed the patient's lab results Labs: Lab Results 09/06/23 09/06/23 Range/Units 11:26 11:31 WBC 13.7 H (4.0-11.0) 10^3/uL RBC 3.75 L (4.20-5.40) 10^6/uL Hgb 9.9 L (12.0-16.0) g/dL Hct 31.2 L (36.0-48.0) % MCV 83.2 (81.0-99.0) fL MCH 26.4 L (26.7-34.0) pg MCHC 31.7 (29.9-35.2) g/dL RDW 13.8 (11.0-15.0) % Plt Count 306 (150-450) 10^3/uL MPV 10.9 (9.5-13.5) fL Neut % (Auto) 79.6 H (43.0-75.0) % Lymph % (Auto) 12.8 L (20.5-60.0) % Louisa % (Auto) 6.0 (1.7-12.0) % Eos % (Auto) 0.6 L (0.9-7.0) % Baso % (Auto) 0.3 (0.2-2.0) % Neut # (Auto) 10.9 H (1.4-6.5) 10^3/uL Lymph # (Auto) 1.8 (1.2-3.8) 10^3/uL Louisa # (Auto) 0.8 (0.3-0.8) 10^3/uL Eos # (Auto) 0.1 (0.0-0.7) 10^3/uL Baso # (Auto) 0.0 (0.0-0.1) 10^3/uL Abs Immat Gran (auto) 0.10 H (0.00-0.03) 10^3/uL Imm/Tot Granulo (auto) 0.7 H (0.0-0.5) % Sodium 137 (136-145) mmol/L Potassium 4.2 (3.5-5.1) mmol/L Chloride 103 (98-107) mmol/L Carbon Dioxide 21.0 (21.0-32.0) mmol/L Anion Gap 17.2 BUN 11.0 (7.0-18.0) mg/dL Creatinine 0.62 (0.55-1.02) mg/dL Est GFR ( Amer) >60 (>=60) Est GFR (Non-Af Amer) >60 (>=60) BUN/Creatinine Ratio 17.7 Glucose 176 H (74-106) mg/dL Uric Acid 4.4 (2.6-6.0) mg/dL Calcium 9.3 (8.5-10.1) mg/dL Total Bilirubin 0.6 (0.2-1.0) mg/dL Direct Bilirubin 0.1 (0.0-0.2) mg/dL AST 19 (15-37) U/L ALT 23 (14-59) U/L Alkaline Phosphatase 157 H (46-116) U/L Total Protein 7.3 (6.4-8.2) g/dL Albumin 2.6 L (3.4-5.0) g/dL Globulin 4.7 g/dL Albumin/Globulin Ratio 0.6 Urine Color Yellow (YELLOW) Urine Clarity Clear (CLEAR) Urine pH 6.0 (5.0-9.0) Ur Specific Robinson >=1.030 A (1.005-1.025) Urine Protein 30 A (NEG/TRACE) mg/dL Urine Glucose (UA) 100 A (NEGATIVE) mg/dL Urine Ketones Trace A (NEGATIVE) mg/dL Urine Occult Blood Negative (NEGATIVE) Urine Nitrite Negative (NEGATIVE) Urine Bilirubin Negative (NEGATIVE) Urine Urobilinogen 1.0 (0.2-1.0) EU/dL Ur Leukocyte Esterase Negative (NEGATIVE) Urine RBC 2-5 A (0-2) #/HPF Urine WBC 2-5 A (NONE SEEN) #/HPF Ur Squamous Epith Cells Moderate A (NONE/RARE) #/LPF Urine Crystals None seen (None Seen) #/HPF Urine Bacteria Small A (NONE SEEN) #/HPF Urine Casts Seen A (NONE SEEN) #/LPF Hyaline Casts Rare Urine Mucus Trace A (NONE SEEN) Ur Culture Indicated? Yes Ur Random Creatinine 193.59 (20.00-300.00) mg/dL U Random Total Protein 103.3 H (<=11.9) mg/dL Protein/Creatinin Ratio 0.53 ECG Data Attestation: I personally reviewed and interpreted this ECG as follows: (EKG on my interpretation shows sinus rhythm with a rate of 108.) Discharge Plan Discharge Stand Alone Forms: Portal Instructions Chief Complaint: Headache Clinical Impression: Headache, induced hypertension Patient Disposition: Home, Self-Care Time of Disposition Decision: 13:02 Condition: Good Mode of Transportation: Private Vehicle Prescriptions / Home Meds: No Action aspirin 81 mg capsule 81 mg PO DAILY insulin glargine [Lantus U-100 Insulin] 100 unit/mL solution 18 unit subcut QPM pantoprazole 40 mg tablet,delayed release (DR/EC) 40 mg PO DAILY insulin lispro [Humalog U-100 Insulin] 100 unit/mL solution 1 sliding scale dose subcut Q6H PRN (Reason: hyperglycemia) lamotrigine 100 mg tablet 100 mg PO Q12H desvenlafaxine succinate 100 mg tablet extended release 24 hr 100 mg PO Q24H labetalol 200 mg tablet 200 mg PO TID Print Language: Faroese Instructions: Acute Headache (ED), Hypertension During (ED) Additional Instructions: See Dr. Conway at your appointment on Friday Referrals: Aleksey Bell MD [Primary Care Provider] - 1 week
[2023-09-06] MEDS: ACETAMINOPHEN 325 MG TABLET 650 MG PO (11:21)
[2023-09-06 11:42] LABS: Basophils Percent Auto 0.3 % (0.2-2.0); Eosinophils Absolute Auto 0.1 10^3/uL (0.0-0.7); Eosinophils Percent Auto 0.6 % (0.9-7.0); Hematocrit 31.2 % (36.0-48.0); Hemoglobin 9.9 g/dL (12.0-16.0); Immature Granulocytes Pct Auto 0.7 % (0.0-0.5); Lymphocytes Absolute Auto 1.8 10^3/uL (1.2-3.8); Lymphocytes Percent Auto 12.8 % (20.5-60.0); Mean Corpuscular HGB Conc 31.7 g/dL (29.9-35.2); Mean Corpuscular Hemoglobin 26.4 pg (26.7-34.0); Mean Corpuscular Volume 83.2 fL (81.0-99.0); Mean Platelet Volume 10.9 fL (9.5-13.5); Monocytes Absolute Auto 0.8 10^3/uL (0.3-0.8); Neutrophils Absolute Auto 10.9 10^3/uL (1.4-6.5); Neutrophils Percent Auto 79.6 % (43.0-75.0); Platelet Count 306 10^3/uL (150-450); Red Blood Count 3.75 10^6/uL (4.20-5.40); Red Cell Distribution Width 13.8 % (11.0-15.0); White Blood Count 13.7 10^3/uL (4.0-11.0)
[2023-09-06 11:42] LABS: Bilirubin Urine NEGATIVE (NEGATIVE); Blood Urine NEGATIVE (NEGATIVE); Clarity Urine CLEAR (CLEAR); Color Urine YELLOW (YELLOW); Glucose Urine UA 100 mg/dL (NEGATIVE); Ketones Urine TRACE mg/dL (NEGATIVE); Leukocyte Esterase Urine NEGATIVE (NEGATIVE); Nitrite Urine NEGATIVE (NEGATIVE); Protein Urine 30 mg/dL (NEG/TRACE); Specific Gravity Urine >=1.030 (1.005-1.025)
[2023-09-06 11:54] LABS: Bacteria Urine SMALL #/HPF (NONE SEEN); Cast Seen? SEEN #/LPF (NONE SEEN); Crystals Seen? None Seen #/HPF (None Seen); Hyaline Casts Urine RARE; Mucus Urine TRACE (NONE SEEN); Squamous Epithelial Cell Urine MODERATE #/LPF (NONE/RARE); Urine Culture Indicated YES
[2023-09-06 12:03] LABS: Alanine Aminotransferase 23 U/L (14-59); Albumin Globulin Ratio 0.6; Albumin Level 2.6 g/dL (3.4-5.0); Alkaline Phosphatase 157 U/L (46-116); Anion Gap 17.2; Aspartate Amino Transferase 19 U/L (15-37); BUN Creatinine Ratio 17.7; Bilirubin Direct 0.1 mg/dL (0.0-0.2); Bilirubin Total 0.6 mg/dL (0.2-1.0); Calcium 9.3 mg/dL (8.5-10.1); Chloride 103 mmol/L (98-107); Estimated GFR (African America >60 (>=60); Estimated GFR (Non-African Ame >60 (>=60); Globulin 4.7 g/dL; Glucose 176 mg/dL (74-106); Potassium 4.2 mmol/L (3.5-5.1); Sodium 137 mmol/L (136-145); Total Protein 7.3 g/dL (6.4-8.2)
[2023-09-06 12:37] LABS: Creatinine Urine Random 193.59 mg/dL (20.00-300.00); Protein Creatinine Ratio Urine 0.53; Total Protein Urine Random 103.3 mg/dL (<=11.9)
[2023-09-06 12:42] LABS: Uric Acid 4.4 mg/dL (2.6-6.0)
== END 2023-09-06 13:29 | disposition home or self-care (01) ==
PROVIDERS: Emergency Provider Emergency Medicine; PCP Family Medicine
DX: O13.3 Gestational [pregnancy-induced] hypertension without significant proteinuria, third trimester (principal); O26.893 Other specified pregnancy related conditions, third trimester; R51.9 Headache, unspecified; Z3A.32 32 weeks gestation of pregnancy; Z79.899 Other long term (current) drug therapy
CPT/HCPCS: 36415; 80048; 80076; 81001; 82570; 84156; 84550; 85025; 87086; 93005; 99284

== ENCOUNTER 2023-09-09 07:02 | Outpatient (OUT) | payer OTHER, SELFPAY ==
--- OUTSIDE RECORDS SUMMARY | 2023-09-09 07:06 | XMS_ITS | CCD ---
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 Comment: The 95% CI (Confidence Interval) PPV (Positive Predictive Value) for myocardial infarction in females is 38 pg/mL, in males 51 pg/mL. The results should be used in conjunction with clinical conditions of myocardial infarction. (Access High Sensitivity Troponin I Instructions For Use, Jeremiah Commissioner, October 2017) Performed By: #### 2 [id number] #### [facility] [address] [id number] UA with Cult Rflxon 08-21-19 24 Bilirubin Ql (U) Negative Normal Negative [facility] Comment on above: Performed By: #### 4 [id number] #### [facility] [address] [place] [address] Clarity (U) Clear Normal Clear [facility] Comment on above: Performed By: #### 4 [id number] #### [facility] [address] [place] [address] Color (U) Yellow Normal Yellow [facility] Comment on above: Result Comment: Micr oscopic readings are only performed on those samples that meet specific criteria set forth by [facility]. Performed By: #### 4 [id number] #### [facility] [address] [place] [address] Epithelial cells.squamous Auto (Urine sed) [#/Area] 5-8 Invalid Interpretation Code [facility] Comment on above: Performed By: #### 4 [id number] #### [facility] [address] [place] [address] Glucose Ql (U) 3+ mg/dL Abnormal Negative [facility] Comment on above: Performed By: #### 4 [id number] #### [facility] [address] [place] [address] Hemoglobin Auto test strip (U) [Mass/Vol] Negative Normal Negative [facility] Comment on above: Performed By: #### 4 [id number] #### [facility] [address] [place] [address] Ketones Auto test strip Ql (U) 1+ mg/dL Abnormal Negative [facility] Comment on above: Performed By: #### 4 [id number] #### [facility] [address] [place] [address] Leukocyte esterase Auto test strip Ql (U) 25 Huey/uL Normal Negative [facility] Comment on above: Performed By: #### 4 [id number] #### [facility] [address] [place] [address] Mucus Auto Ql (U) Trace Normal Negative [facility] Comment on above: Performed By: #### 4 [id number] #### [facility] [address] [place] [address] Nitrite Auto test strip Ql (U) Negative Normal Negative [facility] Comment on above: Performed By: #### 4 [id number] #### [facility] [address] [place] [address] pH (U) 6.0 [pH] Invalid Interpretation Code 5.0-9.0 [facility] Comment on above: Performed By: #### 4 [id number] #### [facility] [address] [place] [address] Protein Ql (U) 1+ mg/dL Abnormal Negative [facility] Comment on above: Performed By: #### 4 [id number] #### [facility] [address] [place] [address] RBC Ql (U) 0-3 Normal 0-3 [facility] Comment on above: Performed By: #### 4 [id number] #### [facility] [address] [place] [address] Specific gravity (U) [Rel density] 1.026 Invalid Interpretation Code 1.005-1.030 [facility] Comment on above: Performed By: #### 4 [id number] #### [facility] [address] [place] [address] Urobilinogen (U) [Mass/Vol] Negative Normal Negative [facility] Comment on above: Performed By: #### 4 [id number] #### [facility] [address] [place] [address] WBC Auto (Urine sed) [#/Area] 0-5 Normal 0-5 [facility] Comment on above: Performed By: #### 4 [id number] #### [facility] [address] [place] [address] Type of Urine collection method Clean Catch Normal [facility] Comment on above: Performed By: #### 4 [id number] #### [facility] [address] [place] [address] URINALYSISOrdered By: Fabian Bernal on 08-21-2023 Bilirubin [...] that meet specific criteria set forth by [facility]. Epithelial cells.squamous Auto (Urine sed) [...] Ql (U) 0-3 graded/HPF Normal 0-3graded/HP F [facility] UA Auto SS Specific gravity (U) [Rel density] 1.026 *NA* (08/21/23 9:39 PM) Invalid Interpretation Code 1.005 - 1.030 [facility] UA Auto SS Urobilinogen (U) [Mass/Vol] Negative Normal Negativemg/d L [facility] UA Auto SS WBC Auto (Urine sed) [#/Area] 0-5 graded/HPF Normal 0-5graded/HP F [facility] UA Auto SS URINALYSISOrdered By: Madison Mulligan on 08-21-2023 UA Spec Desc Clean Catch (08/21/23 9:39 PM) Normal [facility] UA Auto SS eGFRon 08-21-2023 eGFR 137 mL/min/1.73 m2 Normal >=59 [facility] Comment on above: Order Comment: Order added by Discern Expert. Performed By: #### 1 [id number] #### [facility] [address] [place] [address] C peptide [Mass/Vol]on 06-22 C PEPTIDE 5.70 ng/mL High 0.81-3.[address] [facility] Comment on above: Result Comment: NOTE Test Performed By: [facility] [address] [place] [address] Learning Consultant: Fina Cruz III #[id number] Performed By: #### 2 345-7 #### [facility] ([id number]) [address] [place] [address], [address] [place] [address] GLUCOSEon 06-23-2023 Glucose [Mass/Vol] 168 mg/dL High 65-99 [facility] Comment on above: Performed By: #### 2 345-7 #### [facility] ([id number]) [address] [place] [address], [address] [place] [address] Glutamate decarboxylase 65 A b IA Qn (S)on 06-23-2023 LATOYA ANTIBODY <5.0 Normal 0.0-5.[address] [facility] Comment on above: Result Comment: NOTE INTERPRETIVE INFORMATION: Glutamic Acid Decarboxylase Antibody A value greater than 5.0 IU/mL is considered positive for Glutamic Acid Decarboxylase Antibody (LATOYA Ab). This assay is intended for the semi-quantitative determination of the LATOYA Ab in human serum. Results should be interpreted within the context of clinical symptoms. Performed By: [facility] [address] [place] [id number] Learning Consultant: Mark Fitzpatrick MD, PhD CLIA Number: [id number] Performed By: #### 2 345-7 #### [facility] ([id number]) [address] [place] [address], [address] [place] [address] Reference Lab Test IDon 06-08 Insulinoma Ab 2 See Below Normal [facility] Comment [...] Clinical correlation is required. Test Performed By: [facility] [employer] [address] [place] [address] Learning Consultant: Vaibhav Julian III, M.D. CLIA #[id number] Performed By: #### 2 345-7 #### [facility] ([id number]) [address] [place] [address], [address] [place] [address] CBC without diffon Hematocrit (Bld) [Volume fraction] 40.1 % [facility] Hemoglobin (Bld) [Mass/Vol] 12.8 g/dL [facility] Plate[facility] (Bld) [#/Vol] 305 10*3/uL [facility] Rbc Mcv (Fl) By Automated Count 82.2 [facility] Free Cell DNAon 2023 Free Cell Dna no call [facility] HIV 1&2 AB/AG Screen (P24 AG )on 04-01-2023 HIV 1&2 AB/AG Negative [facility] Hemoglobin A1con 04-01-2023 HbA1c (Bld) [Mass fraction] 7.9 % Abnormal 4.0 - 6.0 % [facility] Interpretation and review of laboratory results Abnormal [facility] Hepatitis B surface antigeno n 04-01-2023 Hepatitis B Surface Antigen Negative [facility] No Panel Informationon 04-01 [facility] Rubella IGG immune statuson 04-01-2023 Rubella immune IgG immune [facility] Syphilis Total(Unknown Syphi lis Status)on 04-01-2023 Syphilis Non-Reactive [facility] TSHon 04-01-2023 Thyroid Stimulating (3Rd Generation) Hormone/ Tsh 1.051 [facility] TSH Qn 1.05 m[IU]/L [facility] Type and screenon 04-01-2023 Abo/Rh(D) Positive [facility] Urine Cultureon 04-01-2023 Bacteria identified Cx Nom (U) no growth [facility] Covid-19 PCR (CVDTBH)on 05-09 SARS-CoV-2 (COVID-19) RNA EZEKIEL+probe Ql (Unsp spec) Not detected Normal NOT DETECTED [facility] Comment on above: Result Comment: This test is not yet approved or cleared by the [place] FDA. When there are no FDA-approved or cleared tests available, and other criteria are met, FDA can make tests available under an emergency access mechanism called an Emergency Use Authorization (EUA). The EUA for this test is supported by the Environmental Protection Forester of Health and Human Service's (HHS's) declaration [...] SARS-CoV-2. Performed By: #### C VDTBH #### [facility] [address] [place] [address] Dr. Rosemary Ames GROUP A STREP CULTUREon 05-09 S. pyogenes Ag Ql (Unsp spec) Culture Observations: NEGATIVE FOR GROUP A STREPTOCOCCUS. Normal [facility] Comment on above: Performed By: #### T 7, LIPID, TSH, CMADM, BNP, CMP #### [facility] [address] [place] [address] Dr. Rosemary Ames INFLUENZA A AND B AGon 05-31 INFLUANEGH SEE BELOW Normal [facility] Comment on above: Result Comment: Nega tive for Flu A protein angiten. Infection due to Flu A cannot be ruled out. Flu A angiten in the sample may be below the detection limit of the test. Performed By: #### I NFLUAB #### [facility] [address] [place] [address] Dr. Rosemary Ames INFLUBNEG SEE BELOW Normal [facility] Comment on above: Result Comment: Nega tive for Flu B protein antigen. Infection due to Flu B cannot be ruled out. Flu B antigen in the sample may be below the detection limit of the test. Performed By: #### I NFLUAB #### [facility] [address] [place] [address] Dr. Rosemary Ames INFLUENZA A AG Negative Normal NEGATIVE SEE COMMENT [facility] Comment on above: Performed By: #### I NFLUAB #### [facility] [address] [place] [address] Dr. Rosemary Ames INFLUENZA B AG Negative Normal NEGATIVE SEE COMMENT [facility] Comment on above: Performed By: #### I NFLUAB #### [facility] [address] [place] [address] Dr. Rosemary Ames STREPT SCREENon 05-31-2022 STREP SCREEN A Negative Normal NEGATIVE [facility] Comment on above: Performed By: #### E RUR #### [facility] [address] [place] [address] Dr. Rosemary Ames SYMPTOMATIC COVID-19 ANTIGEN on 05-31-2022 EUA Statement SEE BELOW Normal [facility] Comment on above: Result Comment: [...] 7, LIPID, TSH, CMADM, BNP, CMP #### [facility] [address] [place] [address] Dr. Rosemary Ames SARS-CoV-2 (COVID-19) RNA EZEKIEL+probe Ql (Unsp spec) Negative Normal NEGATIVE [facility] Comment on above: Performed By: #### T 7, LIPID, TSH, CMADM, BNP, CMP #### [facility] [address] [place] [address] Dr. Rosemary Ames ECHOCARDIO M/2D COMPLETEon 0 04-10-2022 ECHOCARDIO M/2D COMPLETE Patient: TESS ASHLEY Exam Date: 04/10/2022 : 1995 Gender:F Ordering : DR CHAMP LAUREANO . Admission #: [id number] Family : Order #: [id number] CLICK HERE TO VIEW EXAM ECHOCARDIOGRAM REPORT [...] M.D. on 04/10/2022 at 17:40 Normal [facility] CBC AUTO DIFFon 03-13-2022 BASO # 0.0 103/ul Normal 0.0-0.1 [facility] Comment on above: Performed By: #### A 1C #### [facility] [address] [address] [address] Rosemary Ames Basophils/100 WBC (Bld) 0.3 % Normal 0.2-2.0 [facility] Comment on above: Performed By: #### A 1C #### [facility] [address] [address] [address] Rosemary Ames EO # 0.0 103/ul Normal 0.0-0.7 [facility] Comment on above: Performed By: #### A 1C #### [facility] [address] [address] [address] Rosemary Amse Eosinophils/100 WBC (Bld) 0.5 % Critically low 0.9-7.0 [facility] Comment on above: Performed By: #### A 1C #### [facility] [address] [address] [address] Rosemary Ames Erythrocyte distribution width (RBC) [Ratio] 14.5 % Normal 11.0-15.0 [facility] Comment on above: Performed By: #### A 1C #### [facility] [address] [address] [address] Rosemary Ames Hematocrit (Bld) [Volume fraction] 39.7 % Normal 36.0-48.0 [facility] Comment on above: Performed By: #### A 1C #### [facility] [address] [address] [address] Rosemary Ames Hemoglobin (Bld) [Mass/Vol] 12.9 g/dL Normal 12.0-16.0 [facility] Comment on above: Performed By: #### A 1C #### [facility] [address] [address] [address] Rosemary Ames IG # 0.03 10e3/ul Normal 0.00-0.03 [facility] Comment on above: Performed By: #### A 1C #### [facility] [address] [address] [address] Rosemary Ames IG % 0.4 % Normal 0.0-0.5 [facility] Comment on above: Performed By: #### A 1C #### [facility] [address] [address] [address] Rosemary Ames LYMPH # 0.5 103/ul Critically low 1.2-3.8 [facility] Comment on above: Performed By: #### A 1C #### [facility] [address] [place] [address] Dr. Rosemary Ames Lymphocytes/100 WBC (Bld) 6.6 % Critically low 20.5-60.0 [facility] Comment on above: Performed By: #### A 1C #### [facility] [address] [place] [address] Dr. Rosemary Ames MANUAL DIFF REQ NO Normal [facility] Comment on above: Performed By: #### A 1C #### [facility] [address] [place] [address] Dr. Rosemary Ames MCH (RBC) [Entitic mass] 25.1 pg Critically low 26.7-34.0 [facility] Comment on above: Performed By: #### A 1C #### [facility] [address] [place] [address] Dr. Rosemary Ames MCHC (RBC) [Mass/Vol] 32.5 g/dL Normal 29.9-35.2 [facility] Comment on above: Performed By: #### A 1C #### [facility] [address] [place] [address] Dr. Rosemary Ames MCV (RBC) [Entitic vol] 77.2 fL Critically low 81.0-99.0 [facility] Comment on above: Performed By: #### A 1C #### [facility] [address] [address] [address] Rosemary Ames MONO # 0.7 103/ul Normal 0.3-0.8 [facility] Comment on above: Performed By: #### A 1C #### [facility] [address] [address] [address] Rosemary Ames Monocytes/100 WBC (Bld) 9.3 % Normal 1.7-12.0 [facility] Comment on above: Performed By: #### A 1C #### [facility] [address] [address] [address] Rosemary Ames NEUT # 6.2 103/ul Normal 1.4-6.5 [facility] Comment on above: Performed By: #### A 1C #### [facility] [address] [place] [address] Dr. Rosemary Ames Neutrophils/100 WBC (Bld) 82.9 % Critically high 43.0-75.0 [facility] Comment on above: Performed By: #### A 1C #### [facility] [address] [address] [address] Rosemary Ames Platelet mean volume (Bld) [Entitic vol] 9.8 fL Normal 9.5-13.5 [facility] Comment on above: Performed By: #### A 1C #### [facility] [address] [address] [address] Rosemary Ames PLT 246 103/ul Normal 150-450 [facility] Comment on above: Performed By: #### A 1C #### [facility] [address] [address] [address] Rosemary Ames RBC 5.14 106/ul Normal 4.20-5.40 [facility] Comment on above: Performed By: #### A 1C #### [facility] [address] [address] [address] Rosemary Ames WBC 7.4 103/ul Normal 4.0-11.0 [facility] Comment on above: Performed By: #### A 1C #### [facility] [address] [place] [address] Dr. Rosemary Ames [facility]on SARS-CoV-2 (COVID-19) RNA EZEKIEL+probe Ql (Unsp spec) Not detected Normal NOT DETECTED [facility] Comment on above: Result Comment: When [...] for this test is supported by the Environmental Protection Forester of Health and Human Service's declaration that [...] used). Performed By: #### A 1C #### [facility] [address] [place] [address] Dr. Rosemary Ames D-DIMERon 03-13-2022 D-DIMER 0.26 mg/L FEU Normal <=0.59 [facility] Comment on above: Performed By: #### T 7, LIPID, TSH, CMADM, BNP, CMP #### [facility] [address] [place] [address] Dr. Rosemary Ames D-DIMER COMMENTS SEE BELOW Normal [facility] Comment on above: Result Comment: Incr [...] 7, LIPID, TSH, CMADM, BNP, CMP #### [facility] [address] [place] [address] Dr. Rosemary Ames ER URINE PROFILEon 3 Bilirubin Ql (U) Negative Normal NEGATIVE [facility] Comment on above: Performed By: #### E RUR #### [facility] [address] [place] [address] Dr. Rosemary Ames Clarity (U) CLEAR Normal CLEAR [facility] Comment on above: Performed By: #### E RUR #### [facility] [address] [place] [address] Dr. Rosemary Ames Color (U) LT. YELLOW Normal YELLOW [facility] Comment on above: Performed By: #### E RUR #### [facility] [address] [place] [address] Dr. Rosemary MARTIN A micrscopic examination will be performed if indicated. Normal [facility] Comment on above: Performed By: #### E RUR #### [facility] [address] [place] [address] Dr. Rosemary Ames Glucose Ql (U) Negative Normal NEGATIVE [facility] Comment on above: Performed By: #### E RUR #### [facility] [address] [place] [address] Dr. Rosemary Ames Hemoglobin Ql (U) Negative Normal NEGATIVE [facility] Comment on above: Performed By: #### E RUR #### [facility] [address] [place] [address] Dr. Rosemary Ames Ketones Ql (U) Negative Normal NEGATIVE [facility] Comment on above: Performed By: #### E RUR #### [facility] [address] [place] [address] Dr. Rosemary Ames LEUKOCYTES Negative Normal NEGATIVE [facility] Comment on above: Performed By: #### E RUR #### [facility] [address] [place] [address] Dr. Rosemary Ames Nitrite Ql (U) Negative Normal NEGATIVE [facility] Comment on above: Performed By: #### E RUR #### [facility] [address] [place] [address] Dr. Rosemary Ames pH (U) 6.0 [pH] Normal 5-9 [facility] Comment on above: Performed By: #### E RUR #### [facility] [address] [place] [address] Dr. Rosemary Ames SPEC GRAVITY 1.015 Normal 1.005-<=1.02 5 [facility] Comment on above: Performed By: #### E RUR #### [facility] [address] [place], [place] [address] Dr. Rosemary Ames UA PROTEIN Negative Normal NEGATIVE/ TRACE [facility] Comment on above: Performed By: #### E RUR #### [facility] [address] [place] [address] Dr. Rosemary Ames UR MICRO IND NOT INDICATED Normal The [facility] Comment on above: Performed By: #### E RUR #### [facility] [address] [place] [address] Dr. Rosemary Ames Urobilinogen Qn (U) 0.2 {Vincent'U}/dL Normal 0.2 - 1. 0 [facility] Comment on above: Performed By: #### E RUR #### [facility] [address] [place] [address] Dr. Rosemary Ames INFLUENZA A AND B AGon 03-13 INFLUANE SEE BELOW Normal [facility] Comment on above: Result Comment: Nega tive for Flu A protein angiten. Infection due to Flu A cannot be ruled out. Flu A angiten in the sample may be below the detection limit of the test. Performed By: #### E RUR #### [facility] [address] [place] [address] Dr. Rosemary Ames INFLUBNEGH SEE BELOW Normal [facility] Comment on above: Result Comment: Nega tive for Flu B protein antigen. Infection due to Flu B cannot be ruled out. Flu B antigen in the sample may be below the detection limit of the test. Performed By: #### E RUR #### [facility] [address] [place] [address] Dr. Rosemary Ames INFLUENZA A AG Negative Normal NEGATIVE SEE COMMENT [facility] Comment on above: Performed By: #### E RUR #### [facility] [address] [place] [address] Dr. Rosemary Ames INFLUENZA B AG Negative Normal NEGATIVE SEE COMMENT [facility] Comment on above: Performed By: #### E RUR #### [facility] [address] [place] [address] Dr. Rsoemary Ames LACTATE/LACTIC ACIDon 2022 Lactate [Moles/Vol] 2.0 mmol/L Critically high 0.4-1.9 [facility] Comment on above: Performed By: #### A 1C #### [facility] [address] [place] [address] Dr. Rosemary Ames LIPASEon 03-13-2022 Lipase [Catalytic activity/Vol] 79.0 U/L Normal 73.0-393.0 [facility] Comment on above: Performed By: #### A 1C #### [facility] [address] [place] [address] Dr. Rosemary Ames PREG HCG QUALon 03-13-2022 , QUAL Negative Normal NEGATIVE The [facility] Comment on above: Performed By: #### A 1C #### [facility] [address] [place] [address] Dr. Rosemary Ames PROF 14(COMP METB)on 023 Albumin [Mass/Vol] 4.1 g/dL Normal 3.4-5.0 [facility] Comment on above: Performed By: #### A 1C #### [facility] [address] [place] [address] Dr. Rosemary Ames Albumin/Globulin [Mass ratio] 1.1 {ratio} Normal [facility] Comment on above: Performed By: #### A 1C #### [facility] [address] [place] [address] Dr. Rosemary Ames ALP [Catalytic activity/Vol] 77 U/L Normal 46-116 [facility] Comment on above: Performed By: #### A 1C #### [facility] [address] [address] [address] Rosemary Ames ALT [Catalytic activity/Vol] 149 U/L Critically high 14-59 [facility] Comment on above: Performed By: #### A 1C #### [facility] [address] [address] [address] Rosemary Ames Anion gap [Moles/Vol] 16.0 mmol/L Normal Th e [facility] Comment on above: Performed By: #### A 1C #### [facility] [address] [place] [address] Dr. Rosemary Ames AST [Catalytic activity/Vol] 82 U/L Critically high 15-37 [facility] Comment on above: Performed By: #### A 1C #### [facility] [address] [place] [address] Dr. Rosemary Ames Bilirubin [Mass/Vol] 1.0 mg/dL Normal 0.2-1.0 [facility] Comment on above: Performed By: #### A 1C #### [facility] [address] [place] [address] Dr. Rosemary Ames Calcium [Mass/Vol] 9.1 mg/dL Normal 8.5-10.1 [facility] Comment on above: Performed By: #### A 1C #### [facility] [address] [place] [address] Dr. Rosemary Ames Chloride [Moles/Vol] 96 mmol/L Critically low 98-107 [facility] Comment on above: Performed By: #### A 1C #### [facility] [address] [place] [address] Dr. Rosemary Ames CO2 [Moles/Vol] 25.7 mmol/L Normal 21.0-32.0 [facility] Comment on above: Performed By: #### A 1C #### [facility] [address] [place] [address] Dr. Rosemary Ames Creatinine [Mass/Vol] 0.78 mg/dL Normal 0.55-1.02 [facility] Comment on above: Performed By: #### A 1C #### [facility] [address] [place], [place] [id number] Dr. Rosemary Ames EGFR-AF COLOMBIAN >60 Normal >=60 [facility] Comment on above: Performed By: #### A 1C #### [facility] [address] [place] [address] Dr. Rosemary Ames EGFR-NON AF COLOMBIAN >60 Normal >=60 [facility] Comment on above: Performed By: #### A 1C #### [facility] [address] [place] [address] Dr. Rosemary Ames Globulin (S) [Mass/Vol] 3.9 g/dL Normal [facility] Comment on above: Performed By: #### A 1C #### [facility] [address] [place] [address] Dr. Rosemary Ames Glucose [Mass/Vol] 190 mg/dL Critically high 74-106 [facility] Comment on above: Performed By: #### A 1C #### [facility] [address] [place] [address] Dr. Rosemary Ames Potassium [Moles/Vol] 3.7 mmol/L Normal 3.5-5.1 [facility] Comment on above: Performed By: #### A 1C #### [facility] [address] [place] [address] Dr. Rosemary Ames Protein [Mass/Vol] 8.0 g/dL Normal 6.4-8.2 [facility] Comment on above: Performed By: #### A 1C #### [facility] [address] [place] [address] Dr. Rosemary Ames Sodium [Moles/Vol] 134 mmol/L Critically low 136-145 Th [facility] Comment on above: Performed By: #### A 1C #### [facility] [address] [place] [address] Dr. Rosemary Ames Urea nitrogen [Mass/Vol] 9.0 mg/dL Normal 7.0-18.0 [facility] Comment on above: Performed By: #### A 1C #### [facility] [address] [place] [address] Dr. Rosemary Ames Urea nitrogen/Creatinine [Mass ratio] 11.5 mg/mg Normal [facility] Comment on above: Performed By: #### A 1C #### [facility] [address] [address] [address] Rosemary Ames TROPONIN, HIGH SENSITIVITYon 03-13-2022 HSTROP <4.0 Normal 4.0-51.3 [facility] Comment on above: Result Comment: CUT- OFF POINTS HAVE BEEN ESTABLISHED BASED ON THE FOURTH UNIVERSAL DEFINITIONS OF MYOCARDIAL INFARCTION. THE UPPER REFERENCE LIMIT (URL) OF TROPONIN, DEFINED THE 99TH PERCENTILE OF cTnI DISTRIBUTION IN A REFERENCE POPULATION, HAS BEEN CONFIRMED THE DECISION THRESHOLD FOR ND DIAGNOSIS. Previously reported as: 3.9 On 03/13/2022 18:24 By DM9 Performed By: #### A 1C #### [facility] [address] [address] [address] Rosemary Ames TSHon 03-13-2022 TSH 0.440 uIU/mL Normal 0.358-3.740 [facility] Comment on above: Performed By: #### A 1C #### [facility] [address] [address] [address] Rosemary Ames XR CHEST 1 Von [...] TUAN LEWIS Date: 2022-03-13 18:59 Normal [facility] INSULINon 12-11-2021 Insulin 40.7 uIU/mL Critically high 2.6-24.9 [facility] Comment on above: Performed By: #### A 1C #### [facility] [address] [place] [address] Dr. Rosemary Ames BNPon 12-10-2021 NT PRO BNP <11.1 Normal <=450.0 [facility] Comment on above: Performed By: #### T 7, LIPID, TSH, CMADM, BNP, CMP #### [facility] [address] [place] [address] Dr. Rosemary Ames CARDIAC RY ADMITon 022 CK [Catalytic activity/Vol] 80 U/L Normal 26-192 [facility] Comment on above: Performed By: #### T 7, LIPID, TSH, CMADM, BNP, CMP #### [facility] [address] [place] [address] Dr. Rosemary Ames CK.MB [Mass/Vol] 0.56 ng/mL Normal <=3.60 [facility] Comment on above: Performed By: #### T 7, LIPID, TSH, CMADM, BNP, CMP #### [facility] [address] [place] [address] Dr. Rosemary Ames HSTROP 5.3 pg/mL Normal 4.0-51.3 [facility] Comment on above: Result Comment: CUT- OFF POINTS HAVE BEEN ESTABLISHED BASED ON THE FOURTH UNIVERSAL DEFINITIONS OF MYOCARDIAL INFARCTION. THE UPPER REFERENCE LIMIT (URL) OF TROPONIN, DEFINED THE 99TH PERCENTILE OF cTnI DISTRIBUTION IN A REFERENCE POPULATION, HAS BEEN CONFIRMED THE DECISION THRESHOLD FOR ND DIAGNOSIS. Performed By: #### T 7, LIPID, TSH, CMADM, BNP, CMP #### [facility] [address] [place] [address] Dr. Rosemary Ames RADHA 26 ng/mL Normal 9-82 [facility] Comment on above: Performed By: #### T 7, LIPID, TSH, CMADM, BNP, CMP #### [facility] [address] [place] [address] Dr. Rosemary Ames CBC AUTO DIFFon 12-10-2021 BASO # 0.0 103/ul Normal 0.0-0.1 [facility] Comment on above: Performed By: #### E RUR #### [facility] [address] [place] [address] Dr. Rosemary Ames Basophils/100 WBC (Bld) 0.4 % Normal 0.2-2.0 [facility] Comment on above: Performed By: #### E RUR #### [facility] [address] [place] [address] Dr. Rosemary Ames EO # 0.1 103/ul Normal 0.0-0.7 [facility] Comment on above: Performed By: #### E RUR #### [facility] [address] [place] [address] Dr. Rosemary Ames Eosinophils/100 WBC (Bld) 1.0 % Normal 0.9-7.0 [facility] Comment on above: Performed By: #### E RUR #### [facility] [address] [place] [address] Dr. Rosemary Ames Erythrocyte distribution width (RBC) [Ratio] 13.7 % Normal 11.0-15.0 [facility] Comment on above: Performed By: #### E RUR #### [facility] [address] [place] [address] Dr. Rosemary Ames Hematocrit (Bld) [Volume fraction] 40.9 % Normal 36.0-48.0 [facility] Comment on above: Performed By: #### E RUR #### [facility] [address] [place] [address] Dr. Rosemary Ames Hemoglobin (Bld) [Mass/Vol] 13.0 g/dL Normal 12.0-16.0 [facility] Comment on above: Performed By: #### E RUR #### [facility] [address] [place] [address] Dr. Rosemary Ames IG # 0.03 10e3/ul Normal 0.00-0.03 [facility] Comment on above: Performed By: #### E RUR #### [facility] [address] [place] [address] Dr. Rosemary Ames IG % 0.4 % Normal 0.0-0.5 [facility] Comment on above: Performed By: #### E RUR #### [facility] [address] [place] [address] Dr. Rosemary Ames LYMPH # 2.4 103/ul Normal 1.2-3.8 [facility] Comment on above: Performed By: #### E RUR #### [facility] [address] [place] [address] Dr. Rosemary Ames Lymphocytes/100 WBC (Bld) 30.3 % Normal 20.5-60.0 [facility] Comment on above: Performed By: #### E RUR #### [facility] [address] [place] [address] Dr. Rosemary Ames MANUAL DIFF REQ NO Normal The [facility] Comment on above: Performed By: #### E RUR #### [facility] [address] [place] [address] Dr. Rosemary Ames MCH (RBC) [Entitic mass] 25.8 pg Critically low 26.7-34.0 [facility] Comment on above: Performed By: #### E RUR #### [facility] [address] [place] [address] Dr. Rosemary Ames MCHC (RBC) [Mass/Vol] 31.8 g/dL Normal 29.9-35.2 [facility] Comment on above: Performed By: #### E RUR #### [facility] [address] [place] [address] Dr. Rosemary Ames MCV (RBC) [Entitic vol] 81.2 fL Normal 81.0-99.0 [facility] Comment on above: Performed By: #### E RUR #### [facility] [address] [place] [address] Dr. Rosemary Ames MONO # 0.5 103/ul Normal 0.3-0.8 [facility] Comment on above: Performed By: #### E RUR #### [facility] [address] [place] [address] Dr. Rosemary Ames Monocytes/100 WBC (Bld) 6.1 % Normal 1.7-12.0 [facility] Comment on above: Performed By: #### E RUR #### [facility] [address] [place] [address] Dr. Rosemary Ames NEUT # 5.0 103/ul Normal 1.4-6.5 [facility] Comment on above: Performed By: #### E RUR #### [facility] [address] [place] [address] Dr. Rosemary Ames Neutrophils/100 WBC (Bld) 61.8 % Normal 43.0-75.0 [facility] Comment on above: Performed By: #### E RUR #### [facility] [address] [place] [address] Dr. Rosemary Ames Platelet mean volume (Bld) [Entitic vol] 9.9 fL Normal 9.5-13.5 [facility] Comment on above: Performed By: #### E RUR #### [facility] [address] [place] [address] Dr. Rosemary Ames PLT 284 103/ul Normal 150-450 [facility] Comment on above: Performed By: #### E RUR #### [facility] [address] [place] [address] Dr. Rosemary Ames RBC 5.04 106/ul Normal 4.20-5.40 [facility] Comment on above: Performed By: #### E RUR #### [facility] [address] [place] [address] Dr. Rosemary Ames WBC 8.0 103/ul Normal 4.0-11.0 [facility] Comment on above: Performed By: #### E RUR #### [facility] [address] [place] [address] Dr. Rosemary Ames FREE THYROXINE INDEX T7on FTI 2.31 Normal 1.30-4.50 [facility] Comment on above: Performed By: #### T 7, LIPID, TSH, CMADM, BNP, CMP #### [facility] [address] [place] [address] Dr. Rosemary Ames T3U 30.0 % Normal 30.0-39.0 [facility] Comment on above: Performed By: #### T 7, LIPID, TSH, CMADM, BNP, CMP #### [facility] [address] [place] [address] Dr. Rosemary Ames T4 [Mass/Vol] 7.70 ug/dL Normal 4.80-13.90 [facility] Comment on above: Performed By: #### T 7, LIPID, TSH, CMADM, BNP, CMP #### [facility] [address] [address] [address] Rosemary Ames GLYCOHEMOGLOBIN A1Con 2021 ADA RECOMMENDATION SEE BELOW Normal [facility] Comment on above: Result Comment: ADA RECOMMENDED LIMIT 4.0 - 6.0 ADA THERAPEUTIC TARGET < 7.0 ACTION SUGGESTED > 7.0 Performed By: #### A 1C #### [facility] [address] [address] [address] Rosemary Ames Glucose [Mass/Vol] 243 mg/dL Normal [facility] Comment on above: Performed By: #### A 1C #### [facility] [address] [address] [address] Rosemary Ames HbA1c (Bld) [Mass fraction] 10.1 % Critically high 4.5-6.2 [facility] Comment on above: Performed By: #### A 1C #### [facility] [address] [place] [address] Dr. Rosemary Ames IRONon 12-10-2021 Iron [Mass/Vol] 29.0 ug/dL Critically low 50.0-170.0 [facility] Comment on above: Performed By: #### A 1C #### [facility] [address] [place] [address] Dr. Rosemary Ames LIPID PROFILEon 12-10-2021 CHOL-HDL RATIO NORM SEE BELOW Normal [facility] Comment on above: Result Comment: 3.3 - 4.4 LOW RISK 4.4 - 7.1 AVERAGE RISK 7.1 - 11.0 MODERATE RISK >11.0 HIGH RISK Performed By: #### T 7, LIPID, TSH, CMADM, BNP, CMP #### [facility] [address] [address] [address] Rosemary Ames Cholesterol [Mass/Vol] 184 mg/dL Normal <=200 [facility] Comment on above: Performed By: #### T 7, LIPID, TSH, CMADM, BNP, CMP #### [facility] [address] [address] [address] Rosemary Ames Cholesterol in HDL [Mass/Vol] 44 mg/dL Normal 40-60 [facility] Comment on above: Performed By: #### T 7, LIPID, TSH, CMADM, BNP, CMP #### [facility] [address] [address] [address] Rosemary Ames Cholesterol in LDL [Mass/Vol] 94.6 mg/dL Normal [facility] Comment on above: Performed By: #### T 7, LIPID, TSH, CMADM, BNP, CMP #### [facility] [address] [address] [address] Rosemary Ames Cholesterol.total/Chol esterol in HDL [Mass ratio] 4.2 {ratio} Normal [facility] Comment on above: Performed By: #### T 7, LIPID, TSH, CMADM, BNP, CMP #### [facility] [address] [place] [address] Dr. Rosemary Ames HDL NORMAL > or = 60 mg/dl - LOW CARDIOVASCULAR RISK <40 mg/dl - HIGH CARDIOVASCULAR RISK Normal [facility] Comment on above: Performed By: #### T 7, LIPID, TSH, CMADM, BNP, CMP #### [facility] [address] [address] [address] Rosemary Ames LDL CALC NORMAL SEE BELOW Normal [facility] Comment on above: Result Comment: <100 mg/dl OPTIMAL 100 - 129 mg/dl NEAR OR ABOVE OPTIMAL 130 - 159 mg/dl BORDERLINE HIGH 160 - 189 mg/dl HIGH >190 mg/dl VERY HIGH Performed By: #### T 7, LIPID, TSH, CMADM, BNP, CMP #### [facility] [address] [address] [address] Rosemary Ames Triglyceride [Mass/Vol] 227 mg/dL Critically high <=150 [facility] Comment on above: Performed By: #### T 7, LIPID, TSH, CMADM, BNP, CMP #### [facility] [address] [address] [address] Rosemary Ames VLDL CALC 45.4 mg/dL Normal [facility] Comment on above: Performed By: #### T 7, LIPID, TSH, CMADM, BNP, CMP #### [facility] [address] [place] [address] Dr. Rosemary Ames PROF 14(COMP METB)on 022 Albumin [Mass/Vol] 4.1 g/dL Normal 3.4-5.0 [facility] Comment on above: Performed By: #### T 7, LIPID, TSH, CMADM, BNP, CMP #### [facility] [address] [place] [address] Dr. Rosemary Ames Albumin/Globulin [Mass ratio] 1.1 {ratio} Normal [facility] Comment on above: Performed By: #### T 7, LIPID, TSH, CMADM, BNP, CMP #### [facility] [address] [place] [address] Dr. Rosemary Ames ALP [Catalytic activity/Vol] 83 U/L Normal 46-116 [facility] Comment on above: Performed By: #### T 7, LIPID, TSH, CMADM, BNP, CMP #### [facility] [address] [place] [address] Dr. Rosemary Ames ALT [Catalytic activity/Vol] 166 U/L Critically high 14-59 [facility] Comment on above: Performed By: #### T 7, LIPID, TSH, CMADM, BNP, CMP #### [facility] [address] [place] [address] Dr. Rosemary Ames Anion gap [Moles/Vol] 13.9 mmol/L Normal [facility] Comment on above: Performed By: #### T 7, LIPID, TSH, CMADM, BNP, CMP #### [facility] [address] [place] [address] Dr. Rosemary Ames AST [Catalytic activity/Vol] 97 U/L Critically high 15-37 [facility] Comment on above: Performed By: #### T 7, LIPID, TSH, CMADM, BNP, CMP #### [facility] [address] [place] [address] Dr. Rosemary Ames Bilirubin [Mass/Vol] 0.7 mg/dL Normal 0.2-1.0 [facility] Comment on above: Performed By: #### T 7, LIPID, TSH, CMADM, BNP, CMP #### [facility] [address] [address] [address] Rosemary Ames Calcium [Mass/Vol] 9.2 mg/dL Normal 8.5-10.1 [facility] Comment on above: Performed By: #### T 7, LIPID, TSH, CMADM, BNP, CMP #### [facility] [address] [address] [address] Rosemary Ames Chloride [Moles/Vol] 101 mmol/L Normal 98-107 [facility] Comment on above: Performed By: #### T 7, LIPID, TSH, CMADM, BNP, CMP #### [facility] [address] [place] [address] Dr. Rosemary Ames CO2 [Moles/Vol] 27.5 mmol/L Normal 21.0-32.0 [facility] Comment on above: Performed By: #### T 7, LIPID, TSH, CMADM, BNP, CMP #### [facility] [address] [place] [address] Dr. Rosemary Ames Creatinine [Mass/Vol] 0.65 mg/dL Normal 0.55-1.02 [facility] Comment on above: Performed By: #### T 7, LIPID, TSH, CMADM, BNP, CMP #### [facility] [address] [place] [address] Dr. Rosemary Ames EGFR-AF COLOMBIAN >60 Normal >=60 [facility] Comment on above: Performed By: #### T 7, LIPID, TSH, CMADM, BNP, CMP #### [facility] [address] [place] [address] Dr. Rosemary Ames EGFR-NON AF COLOMBIAN >60 Normal >=60 [facility] Comment on above: Performed By: #### T 7, LIPID, TSH, CMADM, BNP, CMP #### [facility] [address] [place] [address] Dr. Rosemary Ames Globulin (S) [Mass/Vol] 3.8 g/dL Normal [facility] Comment on above: Performed By: #### T 7, LIPID, TSH, CMADM, BNP, CMP #### [facility] [address] [place] [address] Dr. Rosemary Ames Glucose [Mass/Vol] 299 mg/dL Critically high 74-106 [facility] Comment on above: Performed By: #### T 7, LIPID, TSH, CMADM, BNP, CMP #### [facility] [address] [place] [address] Dr. Rosemary Ames Potassium [Moles/Vol] 4.4 mmol/L Normal 3.5-5.1 [facility] Comment on above: Performed By: #### T 7, LIPID, TSH, CMADM, BNP, CMP #### [facility] [address] [address] [address] Rosemary Ames Protein [Mass/Vol] 7.9 g/dL Normal 6.4-8.2 [facility] Comment on above: Performed By: #### T 7, LIPID, TSH, CMADM, BNP, CMP #### [facility] [address] [place] [address] Dr. Rosemary Ames Sodium [Moles/Vol] 138 mmol/L Normal 136-145 [facility] Comment on above: Performed By: #### T 7, LIPID, TSH, CMADM, BNP, CMP #### [facility] [address] [place] [address] Dr. Rosemary Ames Urea nitrogen [Mass/Vol] 8.0 mg/dL Normal 7.0-18.0 [facility] Comment on above: Performed By: #### T 7, LIPID, TSH, CMADM, BNP, CMP #### [facility] [facility] [address] [place] [address] Dr. Rosemary Ames Urea nitrogen/Creatinine [Mass ratio] 12.3 mg/mg Normal [facility] Comment on above: Performed By: #### T 7, LIPID, TSH, CMADM, BNP, CMP #### [facility] [address] [place] [address] Dr. Rosemary Ames TSHon 12-10-2021 TSH 0.921 uIU/mL Normal 0.358-3.740 [facility] Comment on above: Performed By: #### T 7, LIPID, TSH, CMADM, BNP, CMP #### [facility] [address] [address] [address] Rosemary Ames MG MAMM DIAGNOSTIC 3D JESICA CA Don 11-29-2021 MG MAMM DIAGNOSTIC 3D JESICA CAD Patient: TESS ASHLEY. Exam Date: 11/29/2021 : 1995 Gender:F Ordering : DR CHAMP LAUREANO . Admission #: [id number] Family : Order #: [id number] CLICK HERE TO VIEW EXAM RADIOLOGY REPORT [...] breast cancer at age 41. LOCATION: [facility] BREAST COMPOSITION: Heterogeneously dense,which may obscure [...] M.D. on 11/29/2021 at 09:59 Normal [facility] US BREAST RIGHT LIMITEDon US BREAST RIGHT LIMITED Patient: TESS ASHLEY. Exam Date: 11/29/2021 : 1995 Gender:F Ordering : DR CHAMP LAUREANO . Admission #: [id number] Family : Order #: [id number] CLICK HERE TO VIEW EXAM RADIOLOGY REPORT [...] breast cancer at age 41. LOCATION: [facility] BREAST COMPOSITION: Heterogeneously dense,which may obscure small masses. FINDINGS: DIAGNOSTIC CATEGORY 1--NEGATIVE. RIGHT BREAST: No significant suspicious finding. Ultrasound evaluation in area of concern demonstrates normal appearing fibroglandular tissue. LEFT BREAST: No significant suspicious finding. RECOMMENDATIONS: CLINICAL EVALUATION. PLEASE NOTE: A NORMAL MAMMOGRAM DOES NOT EXCLUDE THE POSSIBILITY OF BREAST CANCER. A CLINICALLY SUSPICIOUS PALPABLE LUMP SHOULD BE BIOPSIED. Dictated by: Seble Bgigs M.D. on 11/29/2021 at 09:55 Approved by: Seble Biggs M.D. on 11/29/2021 at 09:59 Normal [facility] MRI BRAIN WO CONon 2 MRI [...] SEBLE BIGGS Date: 2021-09-13 12:13 Normal [facility] Glucose (Bld) [Mass/Vol]on 0 08-27-2021 Glucose [Mass/Vol] 188 mg/dL [facility] Interpretation and review of laboratory results Abnormal [facility] HbA1c (Bld) [Mass fraction]o n 08-27-2021 Interpretation and review of laboratory results Abnormal [facility] POC Hemoglobin A1Con 022 HbA1c (Bld) [Mass fraction] 7.7 % Abnormal 4 - 6 % [facility] SEROLOGYOrdered By: Fabian echeverria on 08-24-2021 Beta hCG Ql Negative (08/24/21 11:29 PM) Normal [facility] Man Sero XR KNEE LT 4V or [...] by: SYLVESTER PRINGLE Date: 2021-08-15 16:18 Normal [facility] US KIDNEYS BLADDERon US KIDNEYS BLADDER EXAMINATION: [...] MAY PILLAI Date: 2021-06-13 10:16 Normal [facility] Testosterone Free and Total by LC-MS/MSon 02-04-2021 Sex Hormone Binding Globulin 11 nmol/L Low 30-135 [facility] Comment on above: Result Comment: REFE RENCE INTERVAL: Sex Hormone Binding Globulin Access complete set of age- and/or gender-specific reference intervals for this test in the [facility] Test Directory ([employer]). Testosterone, Free LC-MS/MS 9.1 pg/mL Critically high 0.8-7.4 [facility] Comment on above: Result Comment: [...] reference intervals for this test in the [facility] Test Directory ([employer]). This test was developed and its performance characteristics determined by [facility]. It has not been cleared or approved by the US Food and Drug Administration. This test was performed in a CLIA certified laboratory and is intended for clinical purposes. Performed By: [facility] [address] [place] [id number] Learning Consultant: Kiersten Jones MD Testosterone, LC-MS/MS 35 ng/dL Normal 9-55 [facility] Comment on above: Result Comment: Oscar rutherford Testosterone, Females 18 years and older Premenopausal 9-55 ng/dL Postmenopausal 5-32 ng/dL REFERENCE INTERVAL: Testosterone, LC-MS/MS Access complete set of age- and/or gender-specific reference intervals for this test in the [facility] Test Directory (Pro[employer]). This test was developed and its performance characteristics determined by [facility]. It has not been cleared or approved by the US Food and Drug Administration. This test was performed in a CLIA certified laboratory and is intended for clinical purposes. Cortisol Daljit 01-31-2021 Cortisol AM 11.0 ug/dL Normal 6.2-19.4 [facility] Comment on above: Performed By: #### C AKSHAT #### [facility] [address] [place] [address] Vital Signs Date Time Vital Sign Value Performing Clinician Facility 08-22-2023 00:15-0400 Hourly Rounding [facility] Comment on above: Result Comment: Patient discharged off u nit in wheelchair. 08-22-2023 00:00-0400 Diastolic blood pressure 47 mm[Hg] [facility] 08-22-2023 00:00-0400 Heart rate 122 /min [facility] 08-22-2023 00:00-0400 Mean blood pressure 71 mm[Hg] [facility] 08-22-2023 00:00-0400 Systolic blood pressure 120 mm[Hg] [facility] 08-21-2023 23:45-0400 Blood Pressure Location [facility] 08-21-2023 23:45-0400 Diastolic blood pressure 52 mm[Hg] [facility] 08-21-2023 23:45-0400 Heart rate 119 /min [facility] 08-21-2023 23:45-0400 Mean blood pressure 78 mm[Hg] [facility] 08-21-2023 23:45-0400 Respiratory rate 16 /min [facility] 08-21-2023 23:45-0400 Systolic blood pressure 130 mm[Hg] [facility] 08-21-2023 23:36-0400 Hourly Rounding [facility] Comment on above: Result Comment: Patient sitting in bed. Call light within reach. 08-21-2023 23:30-0400 Body temperature 97.88 [degF] [facility] 08-21-2023 23:30-0400 Diastolic blood pressure 69 mm[Hg] [facility] 08-21-2023 23:30-0400 Heart rate 135 /min [facility] 08-21-2023 23:30-0400 Mean blood pressure 82 mm[Hg] [facility] 08-21-2023 23:30-0400 Respiratory rate 18 /min [facility] 08-21-2023 23:30-0400 Systolic blood pressure 107 mm[Hg] [facility] 08-21-2023 22:09-0400 Hourly Rounding [facility] Comment on above: Result Comment: Labetalol given for BP. 08-21-2023 21:30-0400 Body temperature 98.42 [degF] [facility] 08-21-2023 20:20-0400 Diastolic blood pressure 91 mm[Hg] Tyler Melina [facility] 08-21-2023 20:20-0400 Heart rate 138 /min Tyler [facility] 08-21-2023 20:20-0400 Mean blood pressure 110 mm[Hg] Tyler Melina [facility] 08-21-2023 20:20-0400 Respiratory rate 20 /min Tyler Mel[facility] 08-21-2023 20:20-0400 SaO2% (BldA) [Mass fraction] 97 % Tyler Mel[facility] 08-21-2023 20:20-0400 Systolic blood pressure 149 mm[Hg] Tyler Mel[facility] 08-21-2023 19:43-0400 Diastolic blood pressure 86 mm[Hg] Tyler Melina [facility] 08-21-2023 19:43-0400 Heart rate 141 /min Tyler Melina [facility] 08-21-2023 19:43-0400 Mean blood pressure 110 mm[Hg] Tyler Melina [facility] 08-21-2023 19:43-0400 Respiratory rate 18 /min Tyler Melina [facility] 08-21-2023 19:43-0400 SaO2% (BldA) [Mass fraction] 97 % Tyler Mel[facility] 08-21-2023 19:43-0400 Systolic blood pressure 158 mm[Hg] Tyler Melina [facility] 08-21-2023 19:22-0400 Body temperature 98.6 [degF] [facility] 08-21-2023 19:22-0400 Diastolic blood pressure 103 mm[Hg] Tyler [facility] 08-21-2023 19:22-0400 Heart rate 131 /min Tyler [facility] 08-21-2023 19:22-0400 Mean blood pressure 118 mm[Hg] Tyler Mel[facility] 08-21-2023 19:22-0400 Respiratory rate 16 /min Tyler Mel[facility] 08-21-2023 19:22-0400 SaO2% (BldA) [Mass fraction] 97 % Tyler [facility] 08-21-2023 19:22-0400 Systolic blood pressure 148 mm[Hg] Tyler [facility] 08-21-2023 19:07-0400 Body temperature 99.14 [degF] [facility] 08-21-2023 19:07-0400 Heart rate 140 /min Tyler Mel[facility] 08-21-2023 19:07-0400 Respiratory rate 22 /min [facility] 05-07-2023 15:08-0500 Body height 152.4 cm Opal Levigan SEED TRUCKER-MOTOR VEHICLE INSPECTOR Work Phone: [facility] 05-07-2023 15:08-0500 Body mass index (BMI) [Ratio] 48.43 kg/m2 Opal Levigan SEED TRUCKER-MOTOR VEHICLE INSPECTOR Work Phone: [facility] 05-07-2023 15:08-0500 Body weight 112.49 kg Opal Levigan SEED TRUCKER-MOTOR VEHICLE INSPECTOR Work Phone: [facility] 05-07-2023 15:08-0500 Diastolic blood pressure 64 mm[Hg] Opal Heath SEED TRUCKER-MOTOR VEHICLE INSPECTOR Work Phone: [facility] 05-07-2023 15:08-0500 Heart rate 111 /min Opal Heath SEED TRUCKER-MOTOR VEHICLE INSPECTOR Work Phone: [facility] 05-07-2023 15:08-0500 Systolic blood pressure 136 mm[Hg] Opal Levigan SEED TRUCKER-MOTOR VEHICLE INSPECTOR Work Phone: [facility] 05-07-2023 14:16-0500 Body height 152.4 cm [facility] 05-07-2023 14:16-0500 Body mass index (BMI) [Ratio] 48.63 kg/m2 [facility] 05-07-2023 14:16-0500 Body weight 112.95 kg [facility] 04-17-2023 10:25-0500 Body mass index (BMI) [Ratio] 47.85 kg/m2 Mario Conway DO Work Phone: [facility] 04-17-2023 10:25-0500 Body weight 111.13 kg Mario Zoraida DO Work Phone: [facility] 04-17-2023 10:25-0500 Diastolic blood pressure 76 mm[Hg] Mario Zoraida DO Work Phone: [facility] 04-17-2023 10:25-0500 Systolic blood pressure 122 mm[Hg] Mario Zoraida DO Work Phone: [facility] 08-27-2021 11:09-0400 Body height 152.4 cm Gregorio Floyd MD Work Phone: [facility] 08-27-2021 11:09-0400 Body mass index (BMI) [Ratio] 46.68 kg/m2 Gregorio Floyd MD Work Phone: [facility] 08-27-2021 11:09-0400 Body weight 108.41 kg Gregorio Floyd MD Work Phone: [facility] 08-27-2021 11:09-0400 Diastolic blood pressure 86 mm[Hg] Gregorio Floyd MD Work Phone: [facility] 08-27-2021 11:09-0400 Heart rate 97 /min Gregorio Floyd MD Work Phone: [facility] 08-27-2021 11:09-0400 Systolic blood pressure 125 mm[Hg] Gregorio Floyd MD Work Phone: [facility] 08-25-2021 14:00-0400 Diastolic blood pressure 81 mm[Hg] [facility] 08-25-2021 14:00-0400 Heart rate 85 /min [facility] 08-25-2021 14:00-0400 Mean blood pressure 100 mm[Hg] [facility] 08-25-2021 14:00-0400 Respiratory rate 16 /min [facility] 08-25-2021 14:00-0400 SaO2% (BldA) [Mass fraction] 98 % Tyler Mel[facility] 08-25-2021 14:00-0400 Systolic blood pressure 138 mm[Hg] Tyler [facility] 08-25-2021 01:00-0400 Diastolic blood pressure 85 mm[Hg] [facility] 08-25-2021 01:00-0400 Heart rate 87 /min Tyler [facility] 08-25-2021 01:00-0400 Respiratory rate 16 /min [facility] 08-25-2021 01:00-0400 SaO2% (BldA) [Mass fraction] 98 % [facility] 08-25-2021 01:00-0400 Systolic blood pressure 140 mm[Hg] Tyler [facility] 08-25-2021 00:00-0400 Diastolic blood pressure 89 mm[Hg] Tyler [facility] 08-25-2021 00:00-0400 Heart rate 95 /min [facility] 08-25-2021 00:00-0400 SaO2% (BldA) [Mass fraction] 97 % Tyler Mel[facility] 08-25-2021 00:00-0400 Systolic blood pressure 149 mm[Hg] Tyler Melina [facility] 06-17-2022 22:50-0400 Body temperature 100.22 [degF] [facility] Encounters Encounter Date Encounter Type Care Provider Facility Start: 08-27-2023 End: 08-27-2023 ambulatory MARIO ZORAIDA Not Available Start: 08-26-2023 End: 08-26-2023 ambulatory KRISH TERRY Not Available Start: 08-21-2023 End: 08-22-2023 ambulatory [facility] Facility[facility] Start: 08-21-2023 End: 08-22-2023 OB Triage [facility] Start: 08-21-2023 End: 08-21-2023 Emergency department patient visit Tyler SKristi Summers [facility] Start: 08-20-2023 End: 08-20-2023 ambulatory SG OLIVERA [facility] Start: 08-13-2023 End: 08-13-[facility] Start: 08-11-2023 End: 08-11-2023 ambulatory MARIO ZORAIDA Not Available Start: 08-05-2023 End: 08-05-2023 ambulatory MARIO ZORAIDA Not Available Start: 07-29-2023 End: 07-29-2023 ambulatory [facility] Start: 07-28-2023 End: 07-28-2023 ambulatory MARIO ZORAIDA Not Available Start: 07-23-2023 End: 07-23-2023 ambulatory [facility] Start: 07-22-2023 End: 07-22-2023 ambulatory GLENDA CAM [facility] Start: 07-14-2023 End: 07-14-2023 ambulatory MARIO ZORAIDA Not Available Start: 07-10-2023 End: 07-10-2023 ambulatory [facility] Start: 06-30-2023 End: 06-30-2023 ambulatory MARIO ZORAIDA Not Available Start: 06-30-2023 End: 06-30-2023 ambulatory LEANA BURR [facility] Start: 06-23-2023 End: 06-23-2023 [facility] Start: 06-23-2023 End: 06-23-2023 ambulatory LEANA [facility] Start: 06-11-2023 End: 06-11-2023 ambulatory MARIO R ZORAIDA [facility] Start: 06-10-2023 End: 06-10-2023 ambulatory MARIO ZORAIDA Not Available Start: 06-09-2023 Orders Only Leana franco MD [facility] Start: 06-04-2023 Orders Only Leana franco MD Work Phone: [facility] Comment on above: Type 2 diabetes naz itus in , second trimester (Primary Dx) Start: 05-29-2023 End: 05-29-2023 ambulatory MARIO ZORAIDA Not Available Start: 05-29-2023 End: 05-29-2023 Office outpatient visit 25 minutes Leana Burr MD Work Phone: [facility] Comment on above: Type 2 diabetes naz itus in , second trimester (Primary Dx) Start: 05-29-2023 End: 05-29-2023 ambulatory LEANA [facility] Start: 05-20-2023 End: 05-20-2023 Orders Only Mary Guidry SEED TRUCKER-CNM Work Phone: [facility] Comment on above: Type 2 diabetes naz itus in , second trimester (Primary Dx) Start: 05-20-2023 End: 05-20-2023 Office outpatient new 45 minutes Leana Burr MD Work Phone: [facility] Comment on above: Type 2 diabetes naz itus in , second trimester (Primary Dx) Start: 05-13-2023 Telephone encounter Joann pastrana RN Work Phone: [facility] Start: 05-12-2023 Telephone encounter Joann pastrana RN Work Phone: [facility] Start: 05-12-2023 End: 05-12-2023 ambulatory SHWETHA WALTON Not Available Start: 05-08-2023 Orders Only Queta Zazueta [facility]- [facility] at 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 Comment on above: Type 2 diabetes naz itus in , second trimester (Primary Dx); Insulin pump in place; HTN in , chronic Start: 05-07-2023 End: 05-07-[address] Work Phone: [facility] Comment on above: Type 2 diabetes naz itus in , second trimester (Primary Dx); Pre-existing type 2 diabetes mellitus during in first trimester Start: 04-23-2023 Chart abstracting Opal falk SEED TRUCKER-MOTOR VEHICLE INSPECTOR Work Phone: [facility] Start: 04-23-2023 Telephone encounter Danyell Ortiz RN Ut tern[facility]- [facility] Start: 04-17-2023 End: 04-17-2023 Office outpatient visit [...] Start: 08-27-2021 End: 08-27-2021 ambulatory CHAMP LAUREANO [facility] Start: 08-27-2021 End: 08-27-2021 Office outpatient new 60 minutes Champ Laureano MD Work Phone: [facility] Comment on above: Type 2 diabetes naz itus with hyperglycemia, unspecified whether senior living insulin use (HCC) (Primary Dx); Thyroid disorder; Hair loss Start: 08-24-2021 End: 08-25-2021 Emergency department patient visit Tyler [facility]mers [facility] Start: 08-15-2021 End: 08-15-2021 ambulatory GREGORY FAN . Facility:[facility] Start: 06-13-2021 End: 06-14-[address] CHAMP LAUREANO . 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 INSPECTOR Work Phone: Start: 04-01-2023 Bacteria identified in [...] malign ant neoplasm of cervix [facility]ear [facility] Start: 05-28-2024 Tobacco Screening [facility] Start: 05-07-2024 Adult BMI Screening Adult BMI Screen ing [facility] Start: 05-07-2024 Tobacco Screening Tobacco [facility]ening [facility] Start: 05-07-2024 End: 05-07-2024 US MFM with or without consult US MFM with or without consult Imaging Routine Type 2 diabetes mellitus in , second trimester Expected: 05/07/2024 (Approximate), Expires: 05/07/2024 [facility] Work Phone: Comment on above: Expected: 05/07/2024 (Approximate), Expires: 05/07/2024 Start: 11-09-2023 Influenza vaccination Influenza Vacc ine [facility] Start: 06-11-2023 End: 06-11-2023 Patient encounter procedure 06/11/2023 1:00 PM EDT Appointment [facility] [address] [place] [address] [facility] Start: 06-10-2023 End: 06-10-2023 Patient encounter procedure 06/10/2023 3:00 PM EDT Office Visit [facility] [address] [place] [phone] Leana Burr MD [address] [place] [address] [facility] Start: 06-04-2023 End: 06-04-2023 Patient encounter procedure 06/04/2023 10:45 AM EDT Office Visit [facility] [address] [place] [phone] Leana Burr MD [address] [place] [address] [facility] Start: 05-29-2023 End: 05-29-2023 Patient encounter procedure 05/29/2023 10:45 AM EDT Office Visit [facility] [address] [place] [phone] Leana Burr MD [address] [place] [address] [facility] Start: 05-20-2023 End: 05-20-2023 Telemedicine consultation with patient 05/20/2023 8:00 AM EDT Telemedicine [facility] [address] [place] [address] Leana Burr MD [address] [place] [address] [facility] Start: 05-12-2023 End: 05-12-2023 Patient encounter procedure 05/12/2023 8:30 AM EST Routine [facility] [address] [address] Shwetha Walton PA [address] [address] [facility] Start: 05-07-2023 End: 05-07-2023 Patient encounter procedure 05/07/2023 3:00 PM EST Office Visit [facility] [address] [place] [address] Opal Heath, SEED TRUCKER-MOTOR VEHICLE INSPECTOR [address] [place] [address] [facility] Start: 05-07-2023 End: 05-07-2023 ambulatory 05/07/2023 1:00 PM EST Support Visit [facility] [address] [place] [address] Shital Chen, RD [address] [facility] [address] [place] [address] [facility] Start: 11-08-2022 Influenza vaccination Influenza Vacc ine [facility] Start: 11-27-2021 End: 11-27-2021 Patient encounter procedure 11/27/2021 Office Visit Endocrinology Gregorio Floyd MD [facility] [place] [address] [facility] Start: 11-27-2021 Hemoglobin A1c measurement A1C [facility] Start: 11-08-2021 Influenza vaccination Sequenti al Influenza Vaccine (Season Ended) [facility] Start: 06-25-2021 End: 06-25-2021 Patient encounter procedure 06/25/2021 Office Visit Endocrinology Gregorio Floyd MD [address] [place] [address] [facility] Start: 11-08-2020 Influenza vaccination Sequenti al Influenza Vaccine (#1) [facility] Start: 11-14-2015 Screening for malign ant neoplasm of cervix Pap Smear [facility] Start: 2013 DTaP,Tdap and Td Vaccines (1 - Tdap) DTaP,Tdap and Td Vaccines (1 - Tdap) [facility] Start: 2012 Adult BMI Follow Up Plan Adult BMI Follow Up Plan [facility] Start: 2012 Adult BMI Screening Adult BMI Screen ing [facility] Start: 2012 Diabetic foot examination Diabetic Foot Exam [facility] Start: 2012 Hepatitis C screening Hepatitis C Sc reening [facility] Start: 2009 HIV screening HIV Screening [facility] Start: 2006 Depression screening using PHQ-9 (Patient Health Questionnaire 9) score [facility] Start: 2006 Tobacco Screening Tobacco Screening [facility] Start: 2005 DTaP,Tdap and Td Vaccines (5 - Tdap) DTaP,Tdap and Td Vaccines (5 - Tdap) [facility] Start: 2004 Diabetic foot examination Foot Exam [facility] Start: 2004 Microalbumin measurement, urine, quantitative Urine Microalbumin [facility] Start: 2004 Ophthalmic examinati on and evaluation Ophthalmology Exam [facility] Start: 2000 Pneumococcal Vaccine : Ped or At-Risk (1 - PCV) Pneumococcal Vaccine: Ped or At-Risk (1 - PCV) [facility] Start: 11-14-1999 COVID-19 Vaccine (#1) COVID-19 Vacci ne (#1) [facility] Start: 11-14-1999 COVID-19 Vaccine (1) COVID-19 Vaccin e (1) [facility] Start: 1997 History and physical examination, annual for health maintenance Wellness Visit [facility] Start: 1994 Glaucoma screening Diabetic Op hthalmology Exam [facility] Start: 1994 Screening for malign ant neoplasm of cervix Pap Smear [facility] Start: 1994 Tetanus vaccination Tetanus: Every 1 0yrs [facility] Start: 1994 Urine screening for protein Urine Microalbumin [facility] End: 08-27-2022 C peptide [Mass/volume] in Serum or Plasma C-peptide Lab Routine Type 2 diabetes mellitus with hyperglycemia, unspecified whether senior living insulin use (HCC) 1 Occurrences starting 08/27/2021 until 08/27/2022 [facility] Comment on above: 1 Occurrences starti ng 08/27/2021 until 08/27/2022 End: 05-19-2024 C-peptide C-peptide Lab Routine Type 2 diabetes mellitus in , second trimester 1 Occurrences starting 05/20/2023 until 05/19/2024 [facility] Comment on above: 1 Occurrences starti ng 05/20/2023 until 05/19/2024 End: 05-19-2024 GAD65 Ab assay GAD65 Ab assay Lab Routine Type 2 diabetes mellitus in , second trimester 1 Occurrences starting 05/20/2023 until 05/19/2024 [employer] Work Phone: Comment on above: 1 Occurrences starti ng 05/20/2023 until 05/19/2024 End: 08-27-2022 Glucose [Mass/volume] in Serum or Plasma Glucose Lab Routine Type 2 diabetes mellitus with hyperglycemia, unspecified whether senior living insulin use (HCC) 1 Occurrences starting 08/27/2021 until 08/27/2022 [facility] Comment on above: 1 Occurrences starti ng 08/27/2021 until 08/27/2022 End: 05-19-2024 Glucose [Mass/volume] in Serum or Plasma Glucose Lab Routine Type 2 diabetes mellitus in , second trimester 1 Occurrences starting 05/20/2023 until 05/19/2024 [facility] Comment on above: 1 Occurrences starti ng 05/20/2023 until 05/19/2024 Hepatic function 200 0 panel - Serum or Plasma Hepatic function panel Lab Routine Type 2 diabetes mellitus with hyperglycemia, unspecified whether intermediate frame tender insulin use (HCC) Ordered: 08/27/2021 [facility] Comment on above: Ordered: 08/27/2021 End: 05-19-2024 Insulinoma Associated Antibody 2 Insulinoma Associated Antibody 2 Lab Routine Type 2 diabetes mellitus in , second trimester 1 Occurrences starting 05/20/2023 until 05/19/2024 [facility] Comment on above: 1 Occurrences starti ng 05/20/2023 until 05/19/2024 End: 08-27-2022 Islet cell antibody measurement Anti-Islet Cell (GAD65) Antibody Lab Routine Type 2 diabetes mellitus with hyperglycemia, unspecified whether senior living insulin use (HCC) 1 Occurrences starting 08/27/2021 until 08/27/2022 [facility] Comment on above: 1 Occurrences starti ng 08/27/2021 until 08/27/2022 End: 08-27-2022 Lipid 1996 panel - Serum or Plasma Lipid Panel Lab Routine Type 2 diabetes mellitus with hyperglycemia, unspecified whether senior living insulin use (HCC) 1 Occurrences starting 08/27/2021 until 08/27/2022 [facility] Comment on above: 1 Occurrences starti ng 08/27/2021 until 08/27/2022 Microalbumin measurement, urine, quantitative Microalbumin/Creatinine Ratio, UR Random Lab Routine Type 2 diabetes mellitus with hyperglycemia, unspecified whether senior living insulin use (HCC) Ordered: 08/27/2021 [facility] Work Phone: Comment on above: Ordered: 08/27/2021 Payers Date Payer Category Payer Unknown [id number] 2019 Medicaid [id number] 1994 Unknown [id number] 2.16. 840.1.697527.3.579.2.903 1994 Unknown [id number] 2.16.84 0.1.105637.3.579.2.593 1994 Unknown [id number] 2.16.84 0.1.199332.3.579.2.593 1994 Unknown [id number] 2.16.84 0.1.394035.3.579.2.593 1994 Unknown [id number] 2.16.84 0.1.296550.3.579.2.593 1994 Unknown [id number] 2.16.84 0.1.826100.3.579.2.593 1994 Unknown [id number] 2.16.84 0.1.585134.3.579.2.593 1994 Unknown [id number] 2.16.84 0.1.548356.3.579.2.593 1994 Unknown [id number] 2.16.84 0.1.325178.3.579.2.593 1994 Unknown [id number] 2.16.84 0.1.376132.3.579.2.593 1994 Unknown [id number] 2.16.84 0.1.992701.3.579.2.593 1994 Unknown [id number] 2.16.84 0.1.596043.3.579.2.593 1994 Unknown [id number] 2.16.84 0.1.104856.3.579.2.593 1994 Unknown [id number] 2.16.84 0.1.044469.3.579.2.593 1994 Unknown [id number] 2.16.8 40.1.941713.3.579.2.1286 1994 Unknown [id number] 2.16.8 40.1.540362.3.579.2.1286 1994 Unknown [id number] 2.16.8 40.1.327124.3.579.2.1286 1994 Unknown [id number] 2.16.8 40.1.801429.3.579.2.1286 1994 Unknown [id number] 2.16.8 40.1.990833.3.579.2.1285 1994 Unknown [id number] 2.16.8 40.1.822450.3.579.2.1285 1994 Unknown [id number] 2.16.8 40.1.412475.3.579.2.1285 1994 Unknown [id number] 2.16.8 40.1.192108.3.579.2.1285 1994 Unknown [id number] 2.16.8 40.1.864726.3.579.2.1285 1994 Unknown [id number] 2.16.8 40.1.378339.3.579.2.1285 1994 Unknown [id number] 2.16.8 40.1.099618.3.579.2.1285 1994 Unknown [id number] 2.16.8 40.1.603247.3.579.2.1285 1994 Unknown [id number] 2.16.8 40.1.267559.3.579.2.1285 1994 Unknown [id number] 2.16.8 40.1.319530.3.579.2.1285 1994 Unknown [id number] 2.16.8 40.1.737216.3.579.2.1285 1994 Unknown [id number] 2.16.8 40.1.232522.3.579.2.1285 1994 Unknown [id number] 2.16.8 40.1.665380.3.579.2. 1994 Unknown [id number] 2.16.8 40.1.381038.3.579.2. 1994 Unknown [id number] 2.16.8 40.1.710188.3.579.2. 1994 Unknown [id number] 2.16.8 40.1.476418.3.579.2. 1994 Unknown [id number] 2.16.8 40.1.618970.3.579.2.727 1994 Unknown [id number] 2.16.84 0.1.160341.3.579.2.1258 1994 Unknown [id number] 2.16.84 0.1.120431.3.579.2.1258 1994 Unknown [id number] 2.16.84 0.1.774099.3.579.2.1258 1994 Unknown [id number] 2.16.84 0.1.015206.3.579.2.1258 1994 Unknown [id number] 2.16.84 0.1.659212.3.579.2.1258 1994 Unknown [id number] 2.16.84 0.1.185779.3.579.2.1258 1994 Unknown [id number] 2.16.84 0.1.004911.3.579.2.1258 1994 Unknown [id number] 2.16.84 0.1.761850.3.579.2.1258 1994 Unknown [id number] 2.16.84 0.1.912793.3.579.2.1258 1994 Unknown [id number] 2.16.84 0.1.773025.3.579.2.1258 1994 Unknown [id number] 2.16.84 0.1.082736.3.579.2.1258 1994 Unknown [id number] 2.16.84 0.1.560339.3.579.2.1258 1994 Unknown [id number] 2.16.84 0.1.570526.3.579.2.1258 1994 Unknown [id number] 2.16.840 .1.612343.3.579.2.1258 1994 Unknown [id number] 2.16.8 40.1.634134.3.579.2.727 1959 Medicaid [id number] 1959 Unknown [id number] 1959 Unknown [id number] 1959 Unknown [id number] Social History Date Type Detail Facility Start: 04-23-2023 Tobacco smoking status NHIS Tobacco smoking consumption unknown [facility] Start: 1995 Sex Assigned At [facility] Start: 08-24-2021 Tobacco smoking status Never [facility] Start: 03-24-2023 End: 05-07-2023 Sex Assigned At Female [facility] Start: 08-17-2021 End: 08-27-2021 Exposure to SARS-CoV-2 (event) Not sure [facility] Start: 03-24-2023 End: 05-07-2023 Tobacco smoking status NHIS Never smoked tobacco [facility] Start: 04-17-2023 Alcohol intake Lifetime non-d jorge (finding) [facility] Start: 03-24-2023 End: 05-07-2023 History of Social function [facility] Start: 02-04-2023 [facility] Start: 1995 Sex Assigned At Female [facility] Start: 02-27-2023 Gender identity Identifies as female gender (finding) [facility] Start: 05-07-2023 Tobacco use and exposure Smokeless tobacco non-user [facility] Start: 05-07-2023 End: 05-29-2023 Alcohol intake Ex-drinker (finding) [facility] Medical Equipment Procedure Code Equipment Code Equipment Origin al Text Equipment Identifier Dates 1 each by Other route if needed [id number] Start: 03-11-2023 Use a new needle with each injection [id number] Start: 05-07-2023 Functional Status Date Assessment Result Facility 08-21-2023 Functional Status N/A [facility] 08-21-2023 Functional Status N/A [facility] 08-24-2021 Functional Status N/A [facility] Clinical Notes 08-24-2021 to 08-22-2023 Note Date & Type Note Facility 08-22-2023 Hospital Discharg e instructions Patient Education 08/21/2023 23:40:58 Vaginal Bleeding During , Third Trimester, Zkav-jm-Opgg Vaginal Bleeding During , Third Trimester A [...] you with your normal activities. Medicines Take qcjq-hjn-rgdbkge and prescription medicines only as told by [...] provider. Document Revised: 11/16/2020 Document Reviewed: 11/16/2020 [employer] Patient Education 2022 [email or web address] 08/21/2023 23:40:58 Hypertension During , Cjaf-gm-Kmvd Hypertension During Hypertension is also called high [...] are best for you. General instructions Take ajcu-ecr-wdwssqh and prescription medicines only as told by [...] provider. Document Revised: 11/16/2020 Document Reviewed: 11/16/2020 [employer] Patient Education 2022 [employer] 08/21/2023 23:40:58 Form - Movement Counts [...] Up Care 08/21/2023 21:25:46 With:Mario CONWAY Address: [address] , [place] [address]- Business (1) When:08/22/2023 Comments:Call Dr if fever>100.5 F, heavy bleedingCall for severe abdominal painCall physician for heavy vaginal bleedingCall physician if symptoms worsenReturn for contractions closer, longer, harderReturn for decreased movementReturn if ruptured membranes or vaginal bleeding [facility] 08-22-2023 Note The following Pratibha t Education Materials have been given to the patient: EducationMaterial [facility] 08-21-2023 Hospital Discharg e instructions Patient [...] your health care provider. General instructions Take kbwq-txu-ximjaxj and prescription medicines only as told by [...] provider. Document Revised: 05/25/2020 Document Reviewed: 05/25/2020 [employer] Patient Education 2022 [email or web address] Follow Up Care 08/21/2023 19:05:36 With:Roosevelt Maldonado Address: [address] [place] [address]- Business (1) When:08/24/2023 21:04:34 With:Champ Laureano Address: [address] [place] [address]- Business (1) When:Within 3 Day(s) [facility] 08-21-2023 Evaluation + Plan note Extrac [...] Views Right XR Wrist 3+ Views Left [facility]03-21-2024 History of Present illness Narrative* Leana Burr MD - 05/29/2023 10:45 AM EDT [facility]- Diabetes Visit TELEMEDICINE VISIT: This is an audiovisual visit. This is done to assess the patient and to determine the best medical care. The patient was located at home in [place] and the provider was located at the medical office in [place]. The patient states they are not driving [...] Delivery: 10/28/23. She is referred from [facility] who is managing along with us. She has had her diabetes education with [facility]. Please see media for full pump [...] within last year: none. Complications: History of ND, CHF: none Medications none Last Lipid panel drawn due after History of HTN: no Medications none History of Diabetic Retinopathy: unknown. Last seen [employer] unknown History of peripheral neuropathy: none Medications [...] History: Diagnosis Date Anxiety Depression Diabetes mellitus ([facility]) Disease of thyroid gland Hypertension History [...] order of 22% in those who have lsszdmqutmY2R 8.5 and higher. Patient aware that maternal [...] breakfast: try low sugar protein shakes or armenian yogurt if appetite lower inthe AM. Complications/ [...] MD [facility] History of Present illness Narrative* Leana [...] Delivery: 10/28/23. She is referred from [facility] who is managing along with us. She has had her diabetes education with [facility]. Please see media for full pump [...] within last year: none. Complications: History of ND, CHF: none Medications none Last Lipid panel drawn due after History of HTN: no Medications none History of Diabetic Retinopathy: unknown. Last seen [employer] unknown History of peripheral neuropathy: none Medications [...] History: Diagnosis Date Anxiety Depression Diabetes mellitus ([facility]) Disease of thyroid gland Hypertension No past [...] She has had diabetes education with [facility]. We reviewed the following We have discussed the issue of insulin-dependent diabetes mellitus and the effect of in detail. There is an elevated risk of malformation of the order of 22% in those who have qtdckkbyczT4L 8.5 and higher. Patient aware that maternal [...] considerably as her current automated basal is zrturpbdg88 units but her basal rates were recently [...] breakfast: try low sugar protein shakes or armenian yogurt if appetite lower inthe AM. Complications/ [...] with MFM as well. LEANA BURR MD [facility] documented in this encounter[facility]onAdvanced Diamond Technologies [facility] [id number] Miscellaneous Notes* Telephone Encounter - Joann Walsh [...] and denied any questions. [facility] [employer] [id number] Telephone encounter Note* Telephone Encounter - Joann [...] meals. Verbalized understanding and denied any questions. [facility] Work Phone: 1(756) 621-236603-04-2024 Miscellaneous Notes* Telephone Encounter - Joann Walsh [...] after M provider reviews. documented in this encounterSt [facility] Hospital[facility]03-04-2024 Telephone encounter Note* Telephone Encounter - Joann Walsh RN - 05/12/2023 4:36 PM EST Summary: [facility] Insulin Pump Questions Called and spoke [...] 05/20/23. Informed would call back after [facility] provider reviews. [facility] [employer] Work Phone: 1(971) 458-983102-28-2024 History of Present illness Narrative* Queta Zazueta [...] Have you been seen here at [facility] in a previous ? N/a Recent ER visits or hospitalizations? No Bring blood sugar log or meter with you today? (Please bring them with you for every visit at [facility]) yes Traveled outside the country in [...] past year HISTORY OF PRESENT ILLNESS: Tess Pefiffer is a pleasant 27 y.o. at 15w1d due on Estimated Date of Delivery: 10/28/23. Currently the patient has no complaints. She is being followed at [facility] due to Type 2 DM. See Dexcom [...] TSH 1.05 04/01/2023 No results found for: [id number] No results found for: CREATININE , BUN [...] by e-mail to: or by fax to: [phone] Minutes spent iwto-qs-scdq; more than 50% of time spent counseling and/or coordinating care withadditional time for record review and communication to referring provider. SABINA Uribe 05/07/23 1556 documented in this encounterMer[facility]02-28-[facility]24 History of Present illness Narrative* Danyell [...] care for you: OB Provider Family Doctor Outside Operator Name: Sebastian Name: No primary care provider on file. Name:[facility] City: City: City: Last time seen: [...] demonstration Is there anything about your culture, muslim, or personal beliefs we need to know about to care for you: Other none Primary Language spoken: Moldovan [22] Primary Language for learning: Moldovan Are you currently in a relationship where you are physically hurt, threatened or made to fee afraid? [] Yes [x] No Ingredient Scaler Helper needed? [] Yes [x] No Marital status/Living [...] If yes, where: On thge following scale, [place] the number, which describes your current level [...] Past Medical History: Diagnosis Date Diabetes mellitus ([facility]) Disease of thyroid gland Hypertension OB [...] Educational Level high school Family issues none Cultural/ethnic/hoahaoism influences none Exercise approved by MD? Current Exercise program walking Who prepares the meal pt Who purchase food at your home? pt Equipment use for cooking/food storage has all Food Assistance(Ex.WIC, Food [place]) has apt Dining out Yes 1 time per month Appetite/Appetite changes increased Weight History stable Do you have cats at home? Infant Feeding Plans Breast Feeding If you have cats, who cleans the litter box? Cravings/Aversions/Pica none currently Nutrition Assessment Worksheet: Week/Weekend Food Recall Breakfast [place] Or cereal Or eggs Snack Lunch Grilled [...] face time 40 minutes. documented in this encounterSt Johnsbury HospitalAntix Labs02-28-2024 Instructions* Patient Instructions* Danyell Ortiz RN - [...] 4 HOURS WHILE AWAKE documented in this encounterMer[facility]02-14-2024 Miscellaneous Notes* Telephone Encounter - Daneyll Ortiz RN - 04/23/2023 12:23 PM EST Called pt due toher not coming to her appt today and she stated she had left a message that she needed to tammi due to not having transportation to her appt this morning. Her name given back to the schedulers to call and resched her. documented in this encounterMercy Health [facility]02-14-2024 Telephone encounter Note* Telephone Encounter - Danyell Ortiz RN - 04/23/2023 12:23 PM EST Called pt due toher not coming to her appt today and she stated she had left a message that she needed to tammi due to not having transportation to her appt this morning. Her name given back to the schedulers to call and resched her. [facility]02-08-[facility] History of Present illness Narrative* Mario [...] fracture, right Type 2 diabetes mellitus ([facility]) Family History Problem Relation Name Age [...] nursing note reviewed. Exam conducted with a registered nurse post partum present. Vitals: Estimated body mass index is [...] of: Mario Conway DO documented in this encounterSoutheast [facility] Treatment [id number] Instructions* Patient Instructions* Gregorio Floyd MD - [...] hold levothyroxine for now. documented in this [id number] History of Present illness Narrative* Gregorio Floyd [...] ALKPHOS, BILITOT No results found for: TSH, M4QHUKY, THYROIDAB No results found for: PTH, CALCIUM, JACQUES, PHOS Lab Results Component Value Date HGBA1C 7.7 (A) 08/27/2021 No results found for: LDLCALC, CHOL, HDL, TRIG, CHOLHDL No results found for: MICALBCREAT, [id number] No results found for: CPEPTIDE Assessment and [...] acanthosis nigricans indicate T2DM, but will get GDP86-Hj and c-peptide/glucose given the young age of [...] Due for foot exam no 08/2021; to genetic counsellor on foot care next visit CV risk/Lipids [...] Gregorio Floyd MD Endocrinology documented in this [id number] Hospital Discharge instructions Patient Education 08/25/2021 02:09:26 [...] Ask your health care provider for a rjbm-tv-rkca plan for gradually returning to activities. Ask [...] your friends, family, a trusted colleague, and hot iron worker about your injury, symptoms, and restrictions. Have them watch for any new or worsening problems. General instructions Take cgww-fbh-jgylwkc and prescription medicines only as told by [...] 02/24/2006 Document Revised: 03/24/2019 Document Reviewed: 03/19/2019 [employer] Patient Education 2020 [employer] 08/25/2021 02:09:26 Cervical Sprain Cervical Sprain [...] provider or physical therapist. General instructions Take mwnu-ozg-mqfwoun and prescription medicines only as told by [...] 12/22/2007 Document Revised: 06/16/2019 Document Reviewed: 10/23/2016 [employer] Patient Education 2019 [email or web address] Follow Up Care 08/24/2021 22:42:21 With:Champ Laureano Address: [address] [place] [address]- Business (1) When:Within 3 Day(s) [facility]06-17-2022 Evaluation + Plan noteExtracted from: Title:ED [...] w/o Contrast CT Spine Cervical w/o Contrast [facility]* Diagnosis Thyroid disorder- Primary Unspecified disorder of thyroid Hair loss Unspecified alopecia [facility] Diagnosis Type 2 diabetes mellitus with hyperglycemia, unspecified whether intermediate frame tender insulin use (HCC)- Primary Thyroid disorder Unspecified disorder of thyroid Hair loss Unspecified alopecia [facility]* Diagnosis Bleeding in early Unspecified hemorrhage in early , unspecified as to episode of care Follow-up exam Unspecified follow-up examination documented in this encounter [facility] Healthcare[facility]* Diagnosis Type 2 diabetes mellitus in , second trimester- Primary Insulin pump in place Insulin pump status HTN in , chronic [facility]* Diagnosis Type 2 diabetes mellitus in , second trimester- Primary Pre-existing type 2 diabetes mellitus during in first trimester documented [facility]* Diagnosis Type 2 diabetes mellitus in , second trimester- Primary documented [facility]* Diagnosis Type 2 diabetes mellitus in , second trimester- Primary [facility]* Diagnosis Type 2 diabetes mellitus in , second trimester- Primary [facility]* Diagnosis Type 2 diabetes mellitus in , second trimester- Primary documented in this encounter [facility] course Narrative No data available for this section [facility] HospitalInstructionsNot on filedocumented in this encounter [facility] SystemInstructionsNot on filedocumented in this encounter [facility] SystemInstructionsNot on filedocumented in this encounter [facility] SystemInstructionsNot on filedocumented in this encounter [facility] SystemInstructionsNot on filedocumented in this encounter [facility] SystemInstructionsNot on filedocumented in this encounter [facility] SystemProgress note No data available for this section [facility] HospitalReason for referral (narrative)* Consultation (Routine) - Pending Review Specialty Diagnoses / Procedures Referred By Juan Antonio montemayor Referred To Contact Maternal and Medicine Diagnoses Type 2 diabetes mellitus in , second trimester Insulin pump in place Opal Heath APRN-CNP [address] [place] [address] Leana Burr MD [address], [address] [address] Referral ID Status Reason Start Date Expiration Date Visits Requested Visits Authorized [id number] Pending Review Specialty Services Required 05/07/2023 05/06/2024 1 1 Counts include 234 beds at the [facility] for referral (narrative)* Consultation (Routine) - Pending Review Specialty Diagnoses / Procedures Referred By Contac t Referred To Contact Endocrinology Diagnoses Type 2 diabetes mellitus in , second trimester Mary Guidry [facility] [address], [address] [address] Leana Burr MD [facility] [address], [address] [address] Referral ID Status Reason Start Date Expiration Date Visits Requested Visits Authorized [id number] Pending Review Specialty Services Required 05/20/2023 05/19/2024 1 1 Counts include 234 beds at the [facility] for visit Narrative* Consultation (Routine) - Pending Review Specialty Diagnoses / Procedures Referred By Juan Antonio t Referred To Contact Endocrinology Diagnoses Type 2 diabetes mellitus in , second trimester Mary Guidry [facility] [address], [address] [place] [address] Leana Burr MD [facility] [address] [address] Referral ID Status Reason Start Date Expiration Date Visits Requested Visits Authorized [id number] Pending Review Specialty Services Required 05/20/2023 05/19/2024 1 1 [facility] Summary Purpose Family History No Family [...] FoundDocuments on File Type Date Recorded 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 Advance Directives and Livin g Will 05/02/2021 12:00 AM Reason for Referral Specialty Diagnoses / Procedures Referred By Contac t Referred To Contact Endocrinology Diagnoses Thyroid disorder Hair loss Champ Laureano MD [address] [facility] [place] [address] [place] [address] Gregorio Floyd MD [address] [place] [address] Referral ID Status Reason Start Date Expiration Date Visits Requested Visits Authorized [id number] Authorized Specialty Services Required/Pat ient's Best Interest 05/04/2021 05/04/2022 1 1 Specialty Diagnoses / Procedures Referred By Contac t Referred To Contact Maternal and Medicine Diagnoses Type 2 diabetes mellitus in , second trimester Procedures [facility] with or without consult Opal Heath, SEED TRUCKER-MOTOR VEHICLE INSPECTOR [address] [place] [address] [facility] Maternal Med [address] [place] [address] Referral ID Status Reason Start Date Expiration Date V isits Requested Visits Authorized [id number] Pending Review 05/08/2023 05/07/2024 1 1 Additional Source Comments INFORMATION SOURCE (unrecogn ized section and content) DATE CREATED AUTHOR 02/06/2021 [facility] DATE CREATED AUTHOR AUTHOR'S ORGANIZ ATION 08/27/2021 [facility] DATE CREATED AUTHOR AUTHOR'S ORGANIZ ATION 06/02/2022 [facility] DATE CREATED AUTHOR AUTHOR'S ORGANIZ ATION 08/14/2023 [facility] DATE CREATED AUTHOR AUTHOR'S ORGANIZ ATION 08/21/[address] 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 Relationship Specialty Start Date End Date Champ Laureano MD [address] [place] [address] PCP - General Family Medicine 05/02/21 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 Relationship Specialty Start Date End Date Champ Laureano MD [address] [place] [address] PCP - General 03/13/23 Reason for Visit (unrecogniz ed section and content) Reason Comments Thyroid Problem Specialty Diagnoses / Procedures Referred By Contac t Referred To Contact Endocrinology Diagnoses Thyroid disorder Hair loss Champ Laureano MD [address] [place] [address] Gregorio Flody MD [address] [place] [id number] Referral ID Status Reason Start Date Expiration Date V isits Requested Visits Authorized [id number] Closed Specialty Services Required/Deanna ent's Best Interest 05/04/2021 05/04/2022 1 1 Reason Comments ER Follow-up Reason Comments [id number] Reason Comments Diabetes Specialty Diagnoses / Procedures Referred By Contac t Referred To Contact Maternal and Medicine Diagnoses Pre-existing type 2 diabetes mellitus during in first trimester Mario Conway R, DO [address] , [place] [address] [facility] Maternal Med [address] [place] [address] Referral ID Status Reason Start Date Expiration Date Visits Requested Visits Authorized [id number] Pending Review Specialty Services Required 04/15/2023 04/14/2024 [...] BE BASED ON THE PRIMARY CLINICAL RECORDS. [facility] provides no warranty or guarantee of the accuracy or completeness of information in this document.
--- NOTE | 2023-09-09 11:04 | US_ITS ---
[address] [address] Patient Name: TESS CALVERT MRN: [facility]:[id number] date: 1995 Sex: F Assigned Patient Location: ED.MAIN Current Patient Location: [facility] Accession/Order Number: [id number] Exam Date: 09/09/2023 11:15 Report Date: 09/09/2023 12:26 At the request of: PORSHA MOTA Procedure: US OB BPP w non-stress EXAMINATION: US OB BPP w non-stress HISTORY:Decreased movement COMPARISON: Ultrasound OB biophysical 09/03/2023 TECHNIQUE: Ultrasound biophysical profile was performed in the radiology department. BREATHING MOVEMENTS: 2 GROSS BODY MOVEMENTS: 2 TONE: 2 QUALITATIVE AMNIOTIC FLUID VOLUME: 2 PRESENTATION: CEPHALIC HEART RATE: 153.41 bpm AMNIOTIC FLUID VOLUME: 28.73 cm GESTATIONAL AGE: 89 Day US/US OB BPP w non-stress IMPRESSION: Total biophysical profile score: 8 Electronically authenticated by: SEBLE BIGGS Date: 09/09/2023 12:26
[2023-09-09 11:52] VITALS: BP 147/84; PULSE 107
[2023-09-09 12:30] VITALS: BP 159/84; PULSE 99
[2023-09-09 14:35] VITALS: BP 177/103; PULSE 98
[2023-09-09 14:36] VITALS: BP 166/75; PULSE 106
--- NOTE | 2023-09-09 14:40 | PC.NURSE ---
1435 Patient declines any dizziness, blurry or double vision, headache or nausea. Patient declines any epigastric pain present.
[2023-09-09 14:51] VITALS: BP 155/82
--- NOTE | 2023-09-09 14:52 | PC.NURSE ---
RN educates patient of concern for high blood pressures and RN attempting to call Dr. Conway to report. Patient verbalizes understanding.
--- NOTE | 2023-09-09 15:21 | PC.NURSE ---
09/09/[address] Conway calls back to unit to speak to RN. RN reports status, maternal assessment, hypertension of 147/84, 159/84, 166/75 and manual blood pressure result of 155/82 by RN and patients home medications of Labetalol 300mg TID and that last dose was taken at 7am and next dose is due now but patient does not have with her as well as Lantus 32 units per day and patient's Humalog pump currently on patient. RN reports patient denying any symptoms associated with hypertension. Dr. Conway orders to begin patient on 24 urine and to return tomorrow, to administer Procardia 30mg orally now and Dr. Conway to call in prescription of Procardia to patient pharmacy, and to draw [facility] labs now and to send patient home after lab draw. Dr. Conway orders that patient can be discharged after lab draw and does not need to wait for results to be in. RN repeats back orders and verifies.
[2023-09-09] MEDS: NIFEdipine 10 MG CAPSULE 30 MG PO (15:35)
[2023-09-09 15:41] LABS: Basophils Percent Auto 0.3 % (0.2-2.0); Eosinophils Absolute Auto 0.1 10^3/uL (0.0-0.7); Eosinophils Percent Auto 0.9 % (0.9-7.0); Hematocrit 31.6 % (36.0-48.0); Hemoglobin 10.3 g/dL (12.0-16.0); Immature Granulocytes Abs Auto 0.09 10^3/uL (0.00-0.03); Immature Granulocytes Pct Auto 0.8 % (0.0-0.5); Lymphocytes Absolute Auto 2.3 10^3/uL (1.2-3.8); Lymphocytes Percent Auto 20.7 % (20.5-60.0); Mean Corpuscular HGB Conc 32.6 g/dL (29.9-35.2); Mean Corpuscular Hemoglobin 27.2 pg (26.7-34.0); Mean Corpuscular Volume 83.4 fL (81.0-99.0); Mean Platelet Volume 10.6 fL (9.5-13.5); Monocytes Absolute Auto 0.8 10^3/uL (0.3-0.8); Monocytes Percent Auto 7.5 % (1.7-12.0); Neutrophils Absolute Auto 7.6 10^3/uL (1.4-6.5); Neutrophils Percent Auto 69.8 % (43.0-75.0); Platelet Count 292 10^3/uL (150-450); Red Blood Count 3.79 10^6/uL (4.20-5.40); Red Cell Distribution Width 13.7 % (11.0-15.0); White Blood Count 10.9 10^3/uL (4.0-11.0)
--- NOTE | 2023-09-09 15:44 | PC.NURSE ---
1528 Lab present in room to draw patient's labs and to instruct and educate patient on how to do 24 hour urine. Patient does not verbalize any further questions or concerns. Patient to follow up in Zoraida's office tomorrow afternoon at 2pm. RN educates patient to return to hospital for any further symptoms such as headache, dizziness, unsteadiness, blurry or double vision, and any epigastric pain and patient verbalizes understanding and agrees to do so.
[2023-09-09 15:58] LABS: Alanine Aminotransferase 17 U/L (14-59); Aspartate Amino Transferase 12 U/L (15-37); Estimated GFR (African America >60 (>=60); Estimated GFR (Non-African Ame >60 (>=60); Uric Acid 4.1 mg/dL (2.6-6.0)
[2023-09-09 16:06] LABS: Partial Thromboplastin Time 23.2 sec (22.3-36.2); Prothrombin Time 9.7 sec (9.0-11.6)
[2023-09-09 16:18] LABS: INR <0.93
[2023-09-09 16:34] LABS: Fibrinogen 513 mg/dL (200-400)
== END 2023-09-09 15:38 | disposition home or self-care (01) ==
LOC: US 07:02 → FBC 11:03
PROVIDERS: PCP Family Medicine; Visit Provider Obstetrics & Gynecology
DX: O36.8130 Decreased fetal movements, third trimester, not applicable or unspecified (principal); Z3A.33 33 weeks gestation of pregnancy
CPT/HCPCS: 36415; 76818; 82565; 84156; 84450; 84460; 84520; 84550; 85025; 85384; 85610; 85730

== ENCOUNTER 2023-09-12 07:07 | Outpatient (OUT) | payer OTHER, SELFPAY ==
--- OUTSIDE RECORDS SUMMARY | 2023-09-12 07:10 | XMS_ITS ---
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 Name Role Phone Champ Laureano MD Primary Care Provider Champ Laureano Primary Care Physician Champ Laureano MD Primary Care Provider CHAMP LAUREANO Admitting Unavailable COLLINSY, CHAMP Primary Care Unavailable CHAMP LAUREANO Referring Unavailable ADLY, GREGORIO ADLY GREGORIO Attending Unava ilable HOY ., DR [...] Unavailable HOY ., DR OAKES Admitting Unavailable WAYAN, DR MAY Silverman Consulting Unavailable CRYSTAL PENG Consulting Unavailable HOY ., DR OAKES Primary Care Unavailable CRYSTAL PENG Attending Unavailable CRYSTAL PENG Admitting Unavailable Champ Laureano MD Primary Care Provider [phone] Unavailable Primary Care Provider UnavailLEANA Gordon Attending Unavailable MARY GUIDRY Referring Unavailable RODEMANLEANA Attending Unavailable RODEMANLEANA Attending Unavailable ZORAIDA, MARIO R Referring Unavailable RODEMANLEANA Attending Unavailable ZORAIDA, MARIO R Referring Unavailable SEAN MARGARITA Referring Unavailable RODEMANLEANA Attending Unavailable ZORAIDA, MARIO R Referring Unavailable RODEMAN LEANA Attending Unavailable ZORAIDA, MARIO R Referring Unavailable RODLEANA HENAO Attending Unavailable ANNA GALEANO Referring Unavailable RODEMANLEANA Attending Unavailable ZORAIDA, MARIO R Referring Unavailable OPAL HEATH Attending Unavailable ZORAIDA, MARIO R Referring Unavailable SHITAL CHEN Attending Unavailable ZORAIDA, MARIO R Referring Unavailable ZORAIDA, MARIO R Referring Unavailable RODEMANELANA Referring Unavailable GLENDA CAM Attending Unavailable GLENDA CAM Referring Unavailable SG ROBERTSON Attending Unavailable ZORAIDA, MARIO R Referring Unavailable Angelica Navarrete Attending Unavailable Tyler Summers Attending Unavailable Tyler Summers Attending Unavailable Sg Infante Admitting Unavailable Sg Infante Attending Unavailable Sg Infante Attending Unavailable Sg Infante Admitting Unavailable ZORAIDA, MARIO Attending Unavailable ZORAIDA, MARIO Attending Unavailable RAUL, SHWETHA Attending Unavailable ZORAIDA, MARIO Attending Unavailable ZORAIDA, MARIO Attending Unavailable ZORAIDA, MARIO Attending Unavailable ZORAIDA, MARIO Attending Unavailable RAUL, SHWETHA Attending Unavailable ZORAIDA, MARIO Attending Unavailable ZORAIDA, MARIO Attending Unavailable KRISH TERRY Attending Unavailable KRISH TERRY Referring Unavailable ZORAIDA, MARIO Attending Unavailable ZORAIDA, MARIO Attending Unavailable Encounters Encounter Date Encounter Type Care Provider Facility Start: 09-10-2023 End: 09-10-2023 ambulatory MARIO ZORAIDA Not Available Start: 08-27-2023 End: 08-27-2023 ambulatory MARIO ZORAIDA Not Available Start: 08-26-2023 End: 08-26-2023 ambulatory KRISH TERRY Not Available Start: 08-21-2023 End: 08-22-2023 ambulatory Sg Infante Facility:[facility] Start: 08-21-2023 End: 08-22-2023 OB Triage Sg Infante [facility] Start: 08-21-2023 End: 08-21-2023 Emergency department patient visit Tyler Summers [facility] Start: 08-20-2023 End: 08-20-2023 ambulatory SG JOSELIN [facility] Start: 08-13-2023 End: 08-13-2023 ambulatory [facility] Start: 08-11-2023 End: 08-11-2023 ambulatory MARIO ZORAIDA Not Available Start: 08-05-2023 End: 08-05-2023 ambulatory MARIO ZORAIDA Not Available Start: 07-29-2023 End: 07-29-2023 ambulatory [facility] Start: 07-28-2023 End: 07-28-2023 ambulatory MARIO ZORAIDA Not Available Start: 07-23-2023 End: 07-23-2023 ambulatory [facility] Start: 07-22-2023 End: 07-22-2023 ambulatory GLENDA CAM [facility] Start: 07-14-2023 End: 07-14-2023 ambulatory MARIO ZORAIDA Not Available Start: 07-10-2023 End: 07-10-2023 ambulatory LEANA BURR [facility] Start: 06-30-2023 End: 06-30-2023 ambulatory MARIO ZORAIDA Not Available Start: 06-30-2023 End: 06-30-2023 ambulatory LEANA BURR [facility] Start: 06-23-2023 End: [facility] Start: 06-23-2023 End: 06-23-2023 ambulatory LEANA [facility] Start: 06-11-2023 End: 06-11-2023 ambulatory MARIO R ZORAIDA [facility] Start: 06-10-2023 End: 06-10-2023 ambulatory MARIO ZORAIDA Not Available Start: 06-09-2023 Orders Only eLana franco MD Work Phone: [facility] Start: 06-04-2023 Orders Only Leana franco MD Work Phone: [facility] Comment on above: Type 2 diabetes naz itus in , second trimester (Primary Dx) Start: 05-29-2023 End: 05-29-2023 ambulatory MARIO ZORAIDA Not Available Start: 05-29-2023 End: 05-29-2023 Office outpatient visit 25 minutes Leana Burr MD Work Phone: [facility] Comment on above: Type 2 diabetes naz itus in , second trimester (Primary Dx) Start: 05-29-2023 End: 05-29-2023 ambulatory LEANA [facility] Start: 05-20-2023 End: 05-20-2023 Orders Only Mary Guidry FLY FINISHER-CNM Work Phone: [facility] Comment on above: Type 2 diabetes naz itus in , second trimester (Primary Dx) Start: 05-20-2023 End: 05-20-2023 Office outpatient new 45 minutes Leana Burr MD Work Phone: [facility] Comment on above: Type 2 diabetes naz itus in , second trimester (Primary Dx) Start: 05-13-2023 Telephone encounter Joann pastrana RN Work Phone: [facility] Start: 05-12-2023 Telephone encounter Joann pastrana RN Work Phone: [facility] Start: 05-12-2023 End: 05-12-2023 ambulatory SHWETHA WALTON Not Available Start: 05-08-2023 Orders Only Queta Zazueta [facility] at [facility] Comment on above: Type 2 diabetes naz itus in , second trimester (Primary Dx) Start: 05-07-2023 End: 05-07-2023 Office outpatient visit 25 minutes Opal Heath APRN-MECHANICAL ENGINEER Work Phone: [facility] Comment on above: Type 2 diabetes naz itus in , second trimester (Primary Dx); Insulin pump in place; HTN in , chronic Start: 05-07-2023 End: 05-07-[address] Work Phone: [facility] Comment on above: Type 2 diabetes naz itus in , second trimester (Primary Dx); Pre-existing type 2 diabetes mellitus during in first trimester Start: 04-23-2023 Chart abstracting Opal falk FLY FINISHER-MECHANICAL ENGINEER Work Phone: [facility] Start: 04-23-2023 Telephone encounter Danyell Ortiz RN Ar ternal- [facility] at [facility] Start: 04-17-2023 End: 04-17-2023 Office outpatient [...] Start: 08-27-2021 End: 08-27-2021 ambulatory CHAMP LAUREANO [facility] Start: 08-27-2021 End: 08-27-2021 Office outpatient new 60 minutes Champ Laureano MD Work Phone: [facility] Comment on above: Type 2 diabetes naz itus with hyperglycemia, unspecified whether longterm insulin use (HCC) (Primary Dx); Thyroid disorder; Hair loss Start: 08-24-2021 End: 08-25-2021 Emergency department patient visit Tyler Summers [facility] Start: 08-15-2021 End: 08-15-2021 ambulatory GREGORY FAN . Facility:[facility] Start: 06-13-2021 End: 06-14-[address] CHAMP LAUREANO . Facility:[facility] Start: 05-04-2021 Transcribe Orders Champ Laureano MD Work Phone: [facility] Comment on above: Thyroid disorder (Pr imary Dx); Hair loss Medical Equipment Procedure Code Equipment Code Equipment Origin al Text Equipment Identifier Dates 1 each by Other route if needed [id number] Start: 03-11-2023 Use a new needle with each injection [id number] Start: 05-07-2023 Medications Current Medications Medication Drug Class(es) Dates Sig (Normalized) Sig (Original) acetaminophen 325 mg / HYDROcodone bitartrate 5 mg oral tablet (3 sources) Opioid Agonist Start: 07-03-2020 [place] 325 mg-5 mg oral tablet 1 tab(s), [...] oral tablet (3 sources) Aluminum Complex Start: take 1 tablet by [...] (Reorder) Payers Date Payer Category Payer Unknown [id number] 2019 Medicaid [id number] 1995 Unknown [id number] 2.16. 840.1.275774.3.579.2.903 1994 Unknown [id number] 2.16.84 0.1.067252.3.579.2.593 1994 Unknown [id number] 2.16.84 0.1.340896.3.579.2.593 1994 Unknown [id number] 2.16.84 0.1.946286.3.579.2.593 1994 Unknown [id number] 2.16.84 0.1.473530.3.579.2.593 1994 Unknown [id number] 2.16.84 0.1.755872.3.579.2.593 1994 Unknown [id number] 2.16.84 0.1.673891.3.579.2.593 1994 Unknown [id number] 2.16.84 0.1.692809.3.579.2.593 1994 Unknown [id number] 2.16.84 0.1.273172.3.579.2.593 1994 Unknown [id number] 2.16.84 0.1.441656.3.579.2.593 1994 Unknown [id number] 2.16.84 0.1.768012.3.579.2.593 1994 Unknown [id number] 2.16.84 0.1.742733.3.579.2.593 1994 Unknown [id number] 2.16.84 0.1.968333.3.579.2.593 1994 Unknown [id number] 2.16.84 0.1.520449.3.579.2.593 1994 Unknown [id number] 2.16.8 40.1.058077.3.579.2.1286 1994 Unknown [id number] 2.16.8 40.1.999584.3.579.2.128 1994 Unknown [id number] 2.16.8 40.1.984941.3.579.2.128 1994 Unknown [id number] 2.16.8 40.1.693836.3.579.2.128 1994 Unknown [id number] 2.16.8 40.1.901921.3.579.2.128 1994 Unknown [id number] 2.16.8 40.1.018828.3.579.2.128 1994 Unknown [id number] 2.16.8 40.1.339573.3.579.2.1285 1994 Unknown [id number] 2.16.8 40.1.859841.3.579.2.1285 1994 Unknown [id number] 2.16.8 40.1.147072.3.579.2.1285 1994 Unknown [id number] 2.16.8 40.1.809361.3.579.2.1285 1994 Unknown [id number] 2.16.8 40.1.369909.3.579.2.1285 1994 Unknown [id number] 2.16.8 40.1.816319.3.579.2.1285 1994 Unknown [id number] 2.16.8 40.1.947675.3.579.2.1285 1994 Unknown [id number] 2.16.8 40.1.730620.3.579.2.1285 1994 Unknown [id number] 2.16.8 40.1.172111.3.579.2.1285 1994 Unknown [id number] 2.16.8 40.1.100190.3.579.2.1285 1994 Unknown [id number] 2.16.8 40.1.511145.3.579.2. 1994 Unknown [id number] 2.16.8 40.1.817061.3.579.2. 1994 Unknown [id number] 2.16.8 40.1.802847.3.579.2. 1994 Unknown [id number] 2.16.8 40.1.691756.3.579.2. 1994 Unknown [id number] 2.16.8 40.1.939331.3.579.2. 1994 Unknown [id number] 2.16.8 40.1.681311.3.579.2. 1994 Unknown [id number] 2.16.84 0.1.974364.3.579.2.9 1994 Unknown [id number] 2.16.84 0.1.893394.3.579.2.1258 1994 Unknown [id number] 2.16.84 0.1.022063.3.579.2.1258 1994 Unknown [id number] 2.16.84 0.1.902617.3.579.2.1258 1994 Unknown [id number] 2.16.84 0.1.995891.3.579.2.1258 1994 Unknown [id number] 2.16.84 0.1.607576.3.579.2.1258 1994 Unknown [id number] 2.16.84 0.1.647653.3.579.2.1258 1994 Unknown [id number] 2.16.84 0.1.099015.3.579.2.1258 1994 Unknown [id number] 2.16.84 0.1.000716.3.579.2.1258 1994 Unknown [id number] 2.16.84 0.1.834204.3.579.2.1258 1994 Unknown [id number] 2.16.84 0.1.845948.3.579.2.1258 1994 Unknown [id number] 2.16.84 0.1.001267.3.579.2.1258 1994 Unknown [id number] 2.16.84 0.1.571974.3.579.2.1258 1994 Unknown [id number] 2.16.84 0.1.645772.3.579.2.1258 1994 Unknown [id number] 2.16.840 .1.736061.3.579.2.9 1960 Medicaid [id number] 1959 Unknown [id number] 1959 Unknown [id number] 1959 Unknown [id number] Plan of Treatment Date Care Activity Detail [...] second trimester Expected: 05/07/2024 (Approximate), Expires: 05/07/[address] [facility] Work Phone: Comment on above: Expected: 05/07/2024 (Approximate), Expires: 05/07/2024 Start: 11-09-2023 Influenza vaccination Influenza Vacc ine [facility] Start: 06-11-2023 End: 06-11-2023 Patient encounter procedure 06/11/2023 1:00 PM EDT Appointment [facility] [address] [place] [address] [facility] Start: 06-10-2023 End: 06-10-2023 Patient encounter procedure 06/10/2023 3:00 PM EDT Office Visit [facility] [address] [place] [address] Leana Burr MD [address] [place] [address] [facility] Start: 06-04-2023 End: 06-04-2023 Patient encounter procedure 06/04/2023 10:45 AM EDT Office Visit [facility] [address] [place] [address] Leana Burr MD [address] [place] [address] [facility] Start: 05-29-2023 End: 05-29-2023 Patient encounter procedure 05/29/2023 10:45 AM EDT Office Visit [facility] [address] [place] [phone] Leana Burr MD [address] [place] [address] [facility] Start: 05-20-2023 End: 05-20-2023 Telemedicine consultation with patient 05/20/2023 8:00 AM EDT [facility] [address] [facility] [address] [place] [phone] Leana Burr MD [address] [facility] [address] [place] [address] [facility] Start: 05-12-2023 End: 05-12-2023 Patient encounter procedure 05/12/2023 8:30 AM EST Routine [facility] [address] [place] [address] Shwetha Walton PA [address] [place] [address] [facility] Start: 05-07-2023 End: 05-07-2023 Patient encounter procedure 05/07/2023 3:00 PM EST Office Visit [facility] [address] [place] [phone] Opal Heath, FLY FINISHER-MECHANICAL ENGINEER [address] [place] [address] [facility] Start: 05-07-2023 End: 05-07-2023 ambulatory 05/07/2023 1:00 PM EST Support Visit [facility] at [facility] [address] [place] [address] Shital Chen, RD [address], [address] [place] [address] [facility] at [facility] Start: 11-08-2022 Influenza vaccination Influenza Vacc ine [facility] Start: 11-27-2021 End: 11-27-2021 Patient encounter procedure 11/27/2021 Office Visit Endocrinology Gregorio Floyd MD [address] [place] [address] [facility] Start: 11-27-2021 Hemoglobin A1c measurement A1C [facility] Start: 11-08-2021 Influenza vaccination Sequenti al Influenza Vaccine (Season Ended) [facility] Start: 06-25-2021 End: 06-25-2021 Patient encounter procedure 06/25/2021 Office Visit Endocrinology Gregorio Floyd MD [address] [place] [address] [facility] Start: 11-08-2020 Influenza vaccination Sequenti al Influenza Vaccine (#1) [facility] Start: 11-14-2015 Screening for malign ant neoplasm [...] Hepatitis C screening Hepatitis C Sc reening [facility] Start: 2009 HIV screening HIV Screening [facility] Start: 2006 Depression screening using PHQ-9 (Patient Health Questionnaire 9) score [facility] Start: 2006 Tobacco Screening Tobacco Screening [facility] Start: 2005 DTaP,Tdap and Td Vaccines (5 - Tdap) DTaP,Tdap and Td Vaccines (5 - Tdap) [facility] Start: 2004 Diabetic foot examination Foot Exam [facility] Start: 2004 Microalbumin measurement, urine, quantitative Urine Microalbumin [facility] Start: 2004 Ophthalmic examinati on and evaluation Ophthalmology Exam [facility] Start: 2000 Pneumococcal Vaccine : Ped or At-Risk (1 - PCV) Pneumococcal Vaccine: Ped or At-Risk (1 - PCV) [facility] Start: 11-14-1999 COVID-19 Vaccine (#1) COVID-19 Vacci ne (#1) [facility] Start: 11-14-1999 COVID-19 Vaccine (1) COVID-19 Vaccin e (1) [facility] Start: 1997 History and physical examination, annual for health maintenance Wellness Visit [facility] Start: 1994 Glaucoma screening Diabetic Op hthalmology Exam [facility] Start: 1994 Screening for malign ant neoplasm of cervix Pap Smear [facility] Start: 1994 Tetanus vaccination Tetanus: Every 1 0yrs [facility] Start: 1994 Urine screening for protein Urine Microalbumin [facility] End: 08-27-2022 C peptide [Mass/volume] in Serum or Plasma C-peptide Lab Routine Type 2 diabetes mellitus with hyperglycemia, unspecified whether truck terminal manager insulin use (HCC) 1 Occurrences starting 08/27/2021 until 08/27/2022 [facility] Comment on above: 1 Occurrences starti ng [...] trimester 1 Occurrences starting 05/20/2023 until 05/19/2024 [employer] Phone: Comment on above: 1 Occurrences starti ng 05/20/2023 until 05/19/2024 End: 08-27-2022 Glucose [Mass/volume] in Serum or Plasma Glucose Lab Routine Type 2 diabetes mellitus with hyperglycemia, unspecified whether longterm insulin use (HCC) 1 Occurrences starting 08/27/2021 until 08/27/2022 [facility] Comment on above: 1 Occurrences starti ng 08/27/2021 until 08/27/2022 End: 05-19-2024 Glucose [Mass/volume] in Serum or Plasma Glucose Lab Routine Type 2 diabetes mellitus in , second trimester 1 Occurrences starting 05/20/2023 until 05/19/2024 [facility]: 1 Occurrences starti ng 05/20/2023 until 05/19/2024 Hepatic function 200 0 panel - Serum or Plasma Hepatic function panel Lab Routine Type 2 diabetes mellitus with hyperglycemia, unspecified whether truck terminal manager insulin use (HCC) Ordered: 08/27/2021 [facility] Comment on above: Ordered: 08/27/2021 End: 05-19-2024 Insulinoma Associated Antibody 2 Insulinoma Associated Antibody 2 Lab Routine Type 2 diabetes mellitus in , second trimester 1 Occurrences starting 05/20/2023 until 05/19/2024 [facility] [employer] Comment on above: 1 Occurrences starti ng 05/20/2023 until 05/19/2024 End: 08-27-2022 Islet cell antibody measurement Anti-Islet Cell (GAD65) Antibody Lab Routine Type 2 diabetes mellitus with hyperglycemia, unspecified whether longterm insulin use (HCC) 1 Occurrences starting 08/27/2021 until 08/27/2022 [facility] Comment on above: 1 Occurrences starti ng 08/27/2021 until 08/27/2022 End: 08-27-2022 Lipid 1996 panel - Serum or Plasma Lipid Panel Lab Routine Type 2 diabetes mellitus with hyperglycemia, unspecified whether longterm insulin use (HCC) 1 Occurrences starting 08/27/2021 until 08/27/2022 [facility] Comment on above: 1 Occurrences starti ng 08/27/2021 until 08/27/2022 Microalbumin measurement, urine, quantitative Microalbumin/Creatinine Ratio, UR Random Lab Routine Type 2 diabetes mellitus with hyperglycemia, unspecified whether truck terminal manager insulin use (HCC) Ordered: 08/27/2021 [employer] Work Phone: Comment on above: Ordered: 08/27/2021 [...] Phone: Start: 04-01-2023 Antibody screen Bebe Heath APRN-[facility] Work Phone: Start: 04-01-2023 Bacteria identified in [...] Range Facility Coding Summary.on 09-01-2023 Coding Summary. [id number] hlYWQ+[id number] PyvX7rR5EZLLhDHthoCO UDIQvDArQuiuOfOG7bqG NjZXJu IC8+SL5vLPOrBxehkRWo t7S2cUW3Q61pni5qPXgb wCS1OSXcJzZxwfqif1mx jYt8SSigAhkcPeId IVTqwF59FSZ8dC75Th26 dCNspHKjg1qudRl5HmLd SGCkYAV3vIqnKPasx8Tg MQJxD31klEYgx7K1 IGNvbGxhcHNlOyBlbXB0 nI8iFYmzdzcpy6hjhghn Wyq0sg36mTPfv7H0iUT7 M9AtxkR2VMEilCFl MoswkJCDmD4dejlwp1mc dnbjWlJjODAdATs7MXw9 GYXntZmgOmYqLO21QGR8 UJSxxvApV3HxHNPj cWurBgD3d3H9Oc7BO8DC YzocY3XQWKEWONovoGX+ WF53rc80Q7EzPhghRac2 EEPmGLV1iKP3lD8y HYUjSIjhi2O8hPO5R0Iq ixAgjv4ok2quAHJyCLld U53kvXRqs6J4FGDqpVO6 OHSnhUmoFuMitC49 Oyc+ASSgvLazh4OyBtll k6fsm4zjfIi3ZukwBCJr heIgsGvkDWI4v8ZoDf6d XJErbVN2pDN0cK0t LnDaDoA7KCxjX609UfGe oKKkVjgvE79yY8GqoUY+ VOHfWgb5UMQtnGfgQI5s Z4JlZDYdjpmzsRMl fMuhCZ7cXKFrynwyJPHq jU2cPWXqE5i6RrBlJpN3 QSdxG4GuQCJekdvoWs85 lX7mWcVdMyT2ETaq B8UwfiJ9YURlrIIqUWdv NDI7B39zl7K4SFLoNIXl ECS5xOZ7zE4yoVubecsg bGVmdDsgdmVydGlj JMliJFlfU932IWBzbKmb PkNvZGluZyBEYXRlOiAg MDYvMjQvMjAyNDwvdGQ+ IJJmREZ5oJkpMLFz mVZnXKlrLp5qkRaqsUpu MQ9qIOIfgakpZEJwvC0x PMViuLMiiYagMI7bHDPn gxnts237MhHvDVJ6 BQTeiEBsO0AnuR0mKhQe IJTuFIPkB3VotPAwJWbj T935ZYmlGaM9RBGwbgNt V7MtZSHhhNsuKdA4 l4P6Gm1Hy2DuqzrrQ6Nc xMUqBuTsVjyaBOw6P0Lz PjwvdHI+AN86DTQvUX11 MPd7UYB4hDqxEWyz TLGxP0RwvT3mDcWuVEJr ZGRkOyc+PHRhYmxlIHdp ZHRoPScxMDAlJyBzdHls QT3wCv4kVFIaJGIr eZghiKTySnRhl0pkKBKn KSbjYN1frHxkM5CraRK4 SDBpe8t8Rm44B55eB7Mu dXA+GAIkdHV1iAN3 sN7qPkQgHfJ0OPcxR584 YsBrbLWzWeaxj9lll1jt bSk3EaX3LUZivkJpsCzi DZH3k0ClLz48S89u IHdpZHRoPSIxNSUiIHZh vYqecf9ipA9bKf9+PGNv wQU1mHN3dK5jZiFeWlR5 DTgjA349OfLrzDOu Zhyqd5jrh9vcxXy5AaYq QQYakrExcAwfVBW1c5Zc Fj93K9QieYjcv9AgLmr0 gj06sTKkg1U1ySG8 O5OhYTWfflrelOWhxIaq SV2dOQYgnnmxMAEppR0c MASwO9w3BbIqJoC9VTyh O3SuhgR0LUDauBEt UIFlkSQTyL6pjytsk7yc lhyoHgXoNPSeAOu3LHf0 VDCqeAzoLbSlUNK4YaZ9 AJY5xVOvpI5qeGrh sfgehE9cYwt+ZDU0bCJj zDYUMM4jNjaatLK+PHRk EZP7cNsoCWfvTEKujB8w KVNlX2q9VpHwDiW0 WLfiI6CuzqW6ZHPffZOh TJOxjGSPmA3mmbjdk4oq ebowLgFcZWOuIJd8HLo5 LWFsaWduOiBsZWZ0 NiW2LSQ6iEVuyJ1jjSdb xprcbJ7zJwm+QmlydGgg KZQ9WMe9T1GaBvi3GCJv eGqyHG6zyXFlBVfi Ad9ltUhvjIahCH9oCAQx zsdnc883BtHtf3dtQMSr fTZvMMglFPE9V49xe7C0 GWHiFUYrSOK0fKA5 uY6pgFqjrriszSIyhSwe ryIhfQagSFrhSSnhF898 XTNdrYsbOcFxPBi4U8Rv Grn1ACSwkDjpJC3d cRHyMRmzGz1ulNluxMek VR2oBVZaegdyi808YoBg a4vqAKDnzIXsPNbcGBB5 B81yn9H3UKObJGAu RMI4xEJ4lJ9ycTiyjklm bGVmdDsgdmVydGljYWwt KOsoF979FYVkgGgeIdPu xZx5V9SyKio9CUQu mYpoLH3exOAdZZabCn3h mTkovDcvWD9jVNAjaizp r297YdKax3fkFIKkzOLc NWelZBE7Y41bf4K1 CFCgFJLlFQA8mGB4eV8u bGlnbjogbGVmdDsgdmVy hKuaFDobFAdoN532SPPq cDsnPlBhdGllbnQg BEbbQVc5G4SfDsniuHZ+ FL10XCDjZI18yWOfiEKc l1xfkFf3VtPkUCAkSET7 qBhnHAecj2AhEIQj D97cnGLfw9W2EZUoaNwo vYNtWfEyzDZ7uY2vLMhk fnvvl8nxvrwiOynxz8bq jw83jC75D77pYRxz ZHRoPSIzMCUiIHZhbGln vc0lzU5vDt8+PGNvbCB3 nBG7lQ4cKKOoKpI9ZUtl S060PaDhoIBgVlle m2yyi8qniAs6HnU9QWHw yzLwgKuaNBV6i7WvIz85 L96qIZceCCAiJOYxKBAf KNBanRshrd9woQ9e Ii8+IQYheAI8aGK9zP5p OvNkBmG0ELvbR724NaLq gDJkDmgjI84kN1PqnLN+ YODwSrb6WMNokEhf LJ8fiFYyQIjeTy9aBNR7 UgSnFjNsTVlzP6ZbZMQq nsqtgmfkgPB5BMOwRNOh jJ96Xb9zqZhbWMQg zQAYdL7wvpelx4gihnzn XfRdKYPrFYu5IYv8VRBg cGzkKmVmKJJ5ZjO4LQD0 pMNauJ2odOjxckbf xK6jI0CdQAZwmezuHw77 fK4rXoCcFvA6GJkaTmo+ ZdPCNV4NU6YvBDNBM1WB KuSGGQAJFF30SL21 yJNbr2U8hTP9H2WgJYNp hqmiauavzFE5MQPtKUKv lX65pVXyEFosYd4pp1E8 m433DNAzIRKrwO05 Wl1uhHqmIDDxgMMTpK4u xicgy9ugtlrsIpAgDHPe PMg9LBm8OSQcoUbgZzHz BSP7WyY6QQC5wHAh bN7ucGjcgdpoaM8uFtx+ TYgoSMBbBGw6NOfkhMH+ ZGLdIFC4zMlnIGyiDHDf dS5eCELtM3i4OwFv TaP6GGzmP0RpCAUnmbcl Bl87lE3wMaEnNnT1UMql E6AakhQ9POXimBLjVCfe KFZ6M96bk2K1YONs SFFlLOV0xVN2fC7jmTsc bjogbGVmdDsgdmVydGlj OKtdYUvyV853ULKjeNyk PeK0IYouBYEuLT79 ZX02hFYto5D0uKC7A8Ow LWPnnkhscabikTS2RRCs OMMxiG96jTKxEFdoHe9t v9M3k181KIHvQJMi sK33Ri1ihMriYBAxhACE yF2zhxosw2bowdpdCcCw ZOEuBHt9UQe3VHVonDmq NcGuKMZ3PmM3OCU1 nBGfrN1yfJurcpgibK6m Oyc+QbJoVOuiPY49PL80 tUVta4V5aGK6G2YtOELf cwyldvqobRG9WLAq BHEyuA25oNNjNIqiTr1l h7N8b170NPLkYAMrxH36 Hh1dmEacWMMmtMIVdP7z ppsxh8wtbbkuOpVm NIFeXFc4ECt5JEWzwNli ClNtUPK3HtS4OQJ1yAPy uP8yzSmtysdzpM8zVpr+ I5VkQKPxNHsvSR53 SW75X6AvXqvmuAVzfOT+ PHRhYmxlIHdpZHRoPScx GELoQsIuyBrkRK8iAp2x ZGVyLWNvbGxhcHNl DcSlj0ljAPGlIRsqMP8r hRbtO9YnfUB0KKOym0l8 Nz02N40bI9TlfTQ+PGNv aAL4yEJ9dE3jMiBz ChA3PCbuJ406VkUhiAFk Dxahl5hjw5jzgOp9ZqIi DEYvomGjtPknQLF1h0We Rv88E56hJYuwGWFd HIRkTYTiPGIamFlwmk1q gT7kAm3+GPGapXK2aVF5 vW9wBbUpOgO1DDqaX798 NvUfyHMkVklwH23s Z7JxuHG+TEQsCdb8IYKj qJsaDK3hiKWvCMpaAh6e FAJ5IeSjDbDzIBiwU3Yy ZGRpbmctcmlnaHQ6 BEKyRBHpiH65Lq2piOhm Nj6uYCGlEIZ3FTGahZGs N8BpsK9qGoHyUVSpHUEz X9ZbvLVxAMupB323 QNwqFiM4ASRjjbFsM6Wu YNTqvQzpSwS2m6Z7Gr4G qSumiJEaUO5xNcVfREz1 E0OeXqn7GBNeiAps OU7iiYVbXIksQo3qqIaz aPltRC2zLJUwgkexp716 KnBiv7zpSNJzaJGmMOei ILK4U82wc7M5UCSi PPLiRLE5wAZ6oP3djOuf bjogbGVmdDsgdmVydGlj EFqyNMseP946RWPdvEer NdGNUel9E9RmKas3 MEKenJuvRF6rtCQvWWkt Fr9toCowdUctJZ6oBRTs pcksq487AzJyc3heGKBy kVQlRBfcEHV1F66m n8S8CKWaNKGqZOI3iID7 zX4enKycwptqgTUymBxe keTokVfxERcpXOttX067 QAUrgPovWg0XAvz6 N4VfYac7XUSawNqzQP1d uTEgASssId8jpOhbwAga IJ3eXGCwarhwz471EkRd n3pnQJLjiMPgVNii KZF5N16dr2N8RIWuIBEz LPE6aXB2kJ6hhHoowjab bGVmdDsgdmVydGljYWwt UTayP825SHAhqNmx PlBheWVyOjwvdGQ+PC90 gi78O2FkQovyJxr4XYDg HSY2jKI1rR7iBIEuCNgr d3V8aRB1D5IpdtEi vg5uj5ryNEBfQ (more content not included)... Normal [facility] Nursing Assessmenton 024 Nursing Assessment [id number] #1.00TIFF Normal [facility] ABO/Rh History Checkon 08-21 ABO/Rh History Check Patient discharged prior Normal [facility] Comment on above: Performed By: #### 1 [id number] #### [facility] [address] [place] [address] EMS Documentationon 08-22-19 EMS Documentation Please click on link to see report Normal [facility] Comment on above: Result Comment: Miss ing Attachment - total size limit for all attachments exceeded ekgattachments.pdf Can be viewed in source system Inpatient Clinical Summaryon 08-22-2023 Inpatient Clinical Summary [address] [address] Clinical Summary Person Information Name: TESS MOORE [place] Age: 27 Years : 1995 Sex: Female PCP: Champ Laureano MD Marital Status: Phone: [phone] Race: White Ethnicity: Non- or Language: Finnish Visit Id: Visit Reason: Speciality: Acuity: Obs Enc Type: OB Triage Med Service: Obstetrics Arrival: 08/21/2023 21:24:21 Discharge: 08/22/2023 00:15:00 Dispo Type: Home (Routine DC) Address: [address] [place] [id number] Provider Notes: Diagnosis: Problems Active (01/20/2023) Sensation [...] This Visit Final Med List: acetaminophen-hydroc odone ([place] 325 mg-5 mg oral tablet) 1 Tablets [...] Physician: Follow up: With: Address: When: Mario ZORAIDA[address] , [place] [address] [facility] (1) In 1 day 08/22/2023 Comments: Call Dr if fever>100.5 F, heavy bleeding Call for severe abdominal pain Call physician for heavy vaginal bleeding Call physician if symptoms worsen Return for contractions closer, longer, harder Return for decreased movement Return if ruptured membranes or vaginal bleeding Patient Education Information: Vaginal Bleeding During , Third Trimester, Olch-gj-Ohyv; Hypertension During , Agii-jb-Roxi; Form - Movement Counts Normal [facility] Inpatient Patient Summaryon 08-22-2023 Inpatient Patient Summary [address] [address] Patient Discharge Instructions PERSON INFORMATION [...] test results: Follow up: With: Address: When: [facility], [address] [place] [address] , [place] [address] Business (1[place] In 1 day 08/22/2023 Comments: Call Dr [...] with No Changes Other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 STREPTOCOCCUS. Normal [facility] Comment on above: Performed By: #### T 7, LIPID, TSH, CMADM, BNP, CMP #### [facility] [address] [place] [address] Dr. Rosemary Ames INFLUENZA A AND B AGon 05-31 [facility] SEE BELOW Normal [facility] Comment on above: Result Comment: Nega tive for Flu A protein angiten. Infection due to Flu A cannot be ruled out. Flu A angiten in the sample may be below the detection limit of the test. Performed By: #### I NFLUAB #### [facility] [address] [place] [address] Dr. Rosemary Ames INFLUBNEG SEE BELOW Normal [facility] Comment on above: Result Comment: Nega tive for Flu B protein antigen. Infection due to Flu B cannot be ruled out. Flu B antigen in the sample may be below the detection limit of the test. Performed By: #### I NFLUAB #### [facility] [address] [place] [address] Dr. Rosemary Ames INFLUENZA A AG Negative Normal NEGATIVE SEE COMMENT [facility] Comment on above: Performed By: #### I NFLUAB #### [facility] [address] [place] [address] Dr. Rosemary Ames INFLUENZA B AG Negative Normal NEGATIVE SEE COMMENT [facility] Comment on above: Performed By: #### I NFLUAB #### [facility] [address] [place] [address] Dr. Rosemary Ames STREPT SCREENon 05-31-2022 STREP SCREEN A Negative Normal NEGATIVE [facility] Comment on above: Performed By: #### E RUR #### [facility] [address] [address] [address] Rosemary Ames SYMPTOMATIC COVID-19 ANTIGEN on 05-31-2022 EUA Statement SEE BELOW Normal [facility] Comment on above: Result Comment: This test [...] 7, LIPID, TSH, CMADM, BNP, CMP #### [facility] [address] [address] [address] Rosemary Ames SARS-CoV-2 (COVID-19) RNA EZEKIEL+probe Ql (Unsp spec) Negative Normal NEGATIVE [facility] Comment on above: Performed By: #### T 7, LIPID, TSH, CMADM, BNP, CMP #### [facility] [address] [address] [address] Rosemary Ames ECHOCARDIO M/2D COMPLETEon 0 04-10-2022 ECHOCARDIO M/2D COMPLETE Patient: TESS ASHLEY Exam Date: 04/10/2022 : 1995 Gender:F Ordering : DR CHAMP LAUREANO . Admission #: [id number] Family : Order #: [id number] CLICK HERE TO VIEW EXAM ECHOCARDIOGRAM REPORT [...] M.D. on 04/10/2022 at 17:40 Normal [facility] CBC AUTO DIFFon 03-13-2022 BASO # 0.0 103/ul Normal 0.0-0.1 [facility] Comment on above: Performed By: #### A 1C #### [facility] [address] [place] [address] Dr. Rosemary Ames Basophils/100 WBC (Bld) 0.3 % Normal 0.2-2.0 [facility] Comment on above: Performed By: #### A 1C #### [facility] [address] [place] [address] Dr. Rosemary Ames EO # 0.0 103/ul Normal 0.0-0.7 [facility] Comment on above: Performed By: #### A 1C #### [facility] [address] [place] [address] Dr. Rosemary Ames Eosinophils/100 WBC (Bld) 0.5 % Critically low 0.9-7.0 [facility] Comment on above: Performed By: #### A 1C #### [facility] [address] [place] [address] Dr. Rosemary Ames Erythrocyte distribution width (RBC) [Ratio] 14.5 % Normal 11.0-15.0 [facility] Comment on above: Performed By: #### A 1C #### [facility] [address] [place] [address] Dr. Rosemary Ames Hematocrit (Bld) [Volume fraction] 39.7 % Normal 36.0-48.0 [facility] Comment on above: Performed By: #### A 1C #### [facility] [address] [place] [address] Dr. Rosemary Ames Hemoglobin (Bld) [Mass/Vol] 12.9 g/dL Normal 12.0-16.0 [facility] Comment on above: Performed By: #### A 1C #### [facility] [address] [place] [address] Dr. Rosemary Ames IG # 0.03 10e3/ul Normal 0.00-0.03 [facility] Comment on above: Performed By: #### A 1C #### [facility] [address] [place] [address] Dr. Rosemary Ames IG % 0.4 % Normal 0.0-0.5 [facility] Comment on above: Performed By: #### A 1C #### [facility] [address] [place] [address] Dr. Rosemary Ames LYMPH # 0.5 103/ul Critically low 1.2-3.8 [facility] Comment on above: Performed By: #### A 1C #### [facility] [address] [place] [address] Dr. Rosemary Ames Lymphocytes/100 WBC (Bld) 6.6 % Critically low 20.5-60.0 [facility] Comment on above: Performed By: #### A 1C #### [facility] [address] [place] [address] Dr. Rosemary Ames MANUAL DIFF REQ NO Normal [facility] Comment on above: Performed By: #### A 1C #### [facility] [address] [place] [address] Dr. Rosemary Ames MCH (RBC) [Entitic mass] 25.1 pg Critically low 26.7-34.0 [facility] Comment on above: Performed By: #### A 1C #### [facility] [address] [place] [address] Dr. Rosemary Ames MCHC (RBC) [Mass/Vol] 32.5 g/dL Normal 29.9-35.2 [facility] Comment on above: Performed By: #### A 1C #### [facility] [address] [place] [address] Dr. Rosemary Ames MCV (RBC) [Entitic vol] 77.2 fL Critically low 81.0-99.0 [facility] Comment on above: Performed By: #### A 1C #### [facility] [address] [place] [address] Dr. Rosemary Ames MONO # 0.7 103/ul Normal 0.3-0.8 [facility] Comment on above: Performed By: #### A 1C #### [facility] [address] [place] [address] Dr. Rosemary Ames Monocytes/100 WBC (Bld) 9.3 % Normal 1.7-12.0 [facility] Comment on above: Performed By: #### A 1C #### [facility] [address] [place] [address] Dr. Rosemary Ames NEUT # 6.2 103/ul Normal 1.4-6.5 [facility] Comment on above: Performed By: #### A 1C #### [facility] [address] [place] [address] Dr. Rosemary Ames Neutrophils/100 WBC (Bld) 82.9 % Critically high 43.0-75.0 [facility] Comment on above: Performed By: #### A 1C #### [facility] [address] [place] [address] Dr. Rosemary Ames Platelet mean volume (Bld) [Entitic vol] 9.8 fL Normal 9.5-13.5 [facility] Comment on above: Performed By: #### A 1C #### [facility] [address] [place] [address] Dr. Rosemary Ames PLT 246 103/ul Normal 150-450 [facility] Comment on above: Performed By: #### A 1C #### [facility] [address] [place] [address] Dr. Rosemary Ames RBC 5.14 106/ul Normal 4.20-5.40 [facility] Comment on above: Performed By: #### A 1C #### [facility] [address] [place] [address] Dr. Rosemary Ames WBC 7.4 103/ul Normal 4.0-11.0 [facility] Comment on above: Performed By: #### A 1C #### [facility] [address] [place] [address] [address] [address] Rosemary Ames Covid-19 PCR ([facility])on SARS-CoV-2 (COVID-19) RNA EZEKIEL+probe Ql (Unsp spec) Not detected Normal NOT DETECTED [facility] Comment on above: Result Comment: When [...] for this test is supported by the [employer] Health and Human Service's declaration that [...] used). Performed By: #### A 1C #### [facility] [address] [place] [address] [address] [address] Rosemary Ames D-DIMERon 03-13-2022 D-DIMER 0.26 mg/L FEU Normal <=0.59 [facility] Comment on above: Performed By: #### T 7, LIPID, TSH, CMADM, BNP, CMP #### [facility] [address] [place], [place] [address] Dr. Rosemary Ames D-DIMER COMMENTS SEE BELOW Normal [facility] Comment on [...] 7, LIPID, TSH, CMADM, BNP, CMP #### [facility] [address] [place] [address] Dr. Rosemary Ames ER URINE PROFILEon 3 Bilirubin Ql (U) Negative Normal NEGATIVE [facility] Comment on above: Performed By: #### E RUR #### [facility] [address] [place] [address] Dr. Rosemary Ames Clarity (U) CLEAR Normal CLEAR [facility] Comment on above: Performed By: #### E RUR #### [facility] [address] [place] [address] Dr. Rosemary Ames Color (U) LT. YELLOW Normal YELLOW [facility] Comment on above: Performed By: #### E RUR #### [facility] [address] [place] [address] Dr. Rosemary KUMARAHBraulio A micrscopic examination will be performed if indicated. Normal [facility] Comment on above: Performed By: #### E RUR #### [facility] [address] [place] [address] Dr. Rosemary Ames Glucose Ql (U) Negative Normal NEGATIVE [facility] Comment on above: Performed By: #### E RUR #### [facility] [address] [place] [address] Dr. Rosemary Ames Hemoglobin Ql (U) Negative Normal NEGATIVE [facility] Comment on above: Performed By: #### E RUR #### [facility] [address] [place] [address] Dr. Rosemary Ames Ketones Ql (U) Negative Normal NEGATIVE [facility] Comment on above: Performed By: #### E RUR #### [facility] [address] [place] [address] Dr. Rosemary Ames LEUKOCYTES Negative Normal NEGATIVE [facility] Comment on above: Performed By: #### E RUR #### [facility] [address] [place] [address] Dr. Rosemary Ames Nitrite Ql (U) Negative Normal NEGATIVE [facility] Comment on above: Performed By: #### E RUR #### [facility] [address] [place] [address] Dr. Rosemary Ames pH (U) 6.0 [pH] Normal 5-9 [facility] Comment on above: Performed By: #### E RUR #### [facility] [address] [place] [address] Dr. Rosemary Ames SPEC GRAVITY 1.015 Normal 1.005-<=1.02 5 [facility] Comment on above: Performed By: #### E RUR #### [facility] [address] [place] [address] Dr. Rosemary Ames UA PROTEIN Negative Normal NEGATIVE/ TRACE [facility] Comment on above: Performed By: #### E RUR #### [facility] [address] [place] [address] Dr. Rosemary Ames UR MICRO IND NOT INDICATED Normal [facility] Comment on above: Performed By: #### E RUR #### [facility] [address] [place] [address] Dr. Rosemary Ames Urobilinogen Qn (U) 0.2 {Vincent'U}/dL Normal 0.2 - 1. 0 [facility] Comment on above: Performed By: #### E RUR #### [facility] [address] [place] [address] Dr. Rosemary Ames INFLUENZA A AND B AGon 03-13 INFLUANEGH SEE BELOW Normal [facility] Comment on above: Result Comment: Nega tive for Flu A protein angiten. Infection due to Flu A cannot be ruled out. Flu A angiten in the sample may be below the detection limit of the test. Performed By: #### E RUR #### [facility] [address] [place] [address] Dr. Rosemary Ames INFLUBNEGH SEE BELOW Normal [facility] Comment on above: Result Comment: Nega tive for Flu B protein antigen. Infection due to Flu B cannot be ruled out. Flu B antigen in the sample may be below the detection limit of the test. Performed By: #### E RUR #### [facility] [address] [place] [address] Dr. Rosemary Ames INFLUENZA A AG Negative Normal NEGATIVE SEE COMMENT [facility] Comment on above: Performed By: #### E RUR #### [facility] [address] [place] [address] Dr. Rosemary Ames INFLUENZA B AG Negative Normal NEGATIVE SEE COMMENT [facility] Comment on above: Performed By: #### E RUR #### [facility] [address] [place] [address] Dr. Rosemary Ames LACTATE/LACTIC ACIDon 2022 Lactate [Moles/Vol] 2.0 mmol/L Critically high 0.4-1.9 [facility] Comment on above: Performed By: #### A 1C #### [facility] [address] [place] [address] Dr. Rosemary Ames LIPASEon 03-13-2022 Lipase [Catalytic activity/Vol] 79.0 U/L Normal 73.0-393.0 [facility] Comment on above: Performed By: #### A 1C #### [facility] [address] [place] [address] Dr. Rosemary Ames PREG HCG QUALon 03-13-2022 , QUAL Negative Normal NEGATIVE [facility] Comment on above: Performed By: #### A 1C #### [facility] [address] [place] [address] Dr. Rosemary Ames PROF 14(COMP METB)on 023 Albumin [Mass/Vol] 4.1 g/dL Normal 3.4-5.0 [facility] Comment on above: Performed By: #### A 1C #### [facility] [address] [place] [address] Dr. Rosemary Ames Albumin/Globulin [Mass ratio] 1.1 {ratio} Normal [facility] Comment on above: Performed By: #### A 1C #### [facility] [address] [place] [address] Dr. Rosemary Ames ALP [Catalytic activity/Vol] 77 U/L Normal 46-116 [facility] Comment on above: Performed By: #### A 1C #### [facility] [address] [address] [address] Rosemary Ames ALT [Catalytic activity/Vol] 149 U/L Critically high 14-59 [facility] Comment on above: Performed By: #### A 1C #### [facility] [address] [address] [address] Rosemary Ames Anion gap [Moles/Vol] 16.0 mmol/L Normal [facility] Comment on above: Performed By: #### A 1C #### [facility] [address] [address] [address] Rosemary Ames AST [Catalytic activity/Vol] 82 U/L Critically high 15-37 [facility] Comment on above: Performed By: #### A 1C #### [facility] [address] [address] [address] Rosemary Ames Bilirubin [Mass/Vol] 1.0 mg/dL Normal 0.2-1.0 [facility] Comment on above: Performed By: #### A 1C #### [facility] [address] [address] [address] Rosemary Ames Calcium [Mass/Vol] 9.1 mg/dL Normal 8.5-10.1 [facility] Comment on above: Performed By: #### A 1C #### [facility] [address] [address] [address] Rosemary Ames Chloride [Moles/Vol] 96 mmol/L Critically low 98-107 [facility] Comment on above: Performed By: #### A 1C #### [facility] [address] [address] [address] Rosemary Ames CO2 [Moles/Vol] 25.7 mmol/L Normal 21.0-32.0 [facility] Comment on above: Performed By: #### A 1C #### [facility] [address] [address] [address] Rosemary Ames Creatinine [Mass/Vol] 0.78 mg/dL Normal 0.55-1.02 [facility] Comment on above: Performed By: #### A 1C #### [facility] [address] [address] [address] Rosemary Ames EGFR-AF ITALIAN >60 Normal >=60 [facility] Comment on above: Performed By: #### A 1C #### [facility] [address] [address] [address] Rosemary Ames EGFR-NON AF ITALIAN >60 Normal >=60 [facility] Comment on above: Performed By: #### A 1C #### [facility] [address] [address] [address] Rosemary Ames Globulin (S) [Mass/Vol] 3.9 g/dL Normal [facility] Comment on above: Performed By: #### A 1C #### [facility] [address] [address] [address] Rosemary Ames Glucose [Mass/Vol] 190 mg/dL Critically high 74-106 T [facility] Comment on above: Performed By: #### A 1C #### [facility] [address] [address] [address] Rosemary Ames Potassium [Moles/Vol] 3.7 mmol/L Normal 3.5-5.1 [facility] Comment on above: Performed By: #### A 1C #### [facility] [address] [address] [address] Rosemary Ames Protein [Mass/Vol] 8.0 g/dL Normal 6.4-8.2 [facility] Comment on above: Performed By: #### A 1C #### [facility] [address] [address] [address] Rosemary Ames Sodium [Moles/Vol] 134 mmol/L Critically low 136-145 [facility] Comment on above: Performed By: #### A 1C #### [facility] [address] [address] [address] Rosemary Ames Urea nitrogen [Mass/Vol] 9.0 mg/dL Normal 7.0-18.0 [facility] Comment on above: Performed By: #### A 1C #### [facility] [address] [address] [address] Rosemary Ames Urea nitrogen/Creatinine [Mass ratio] 11.5 mg/mg Normal [facility] Comment on above: Performed By: #### A 1C #### [facility] [address] [address] [address] Rosemary Ames TROPONIN, HIGH SENSITIVITYon 03-13-2022 HSTROP <4.0 Normal 4.0-51.3 [facility] Comment on above: Result Comment: CUT- OFF POINTS HAVE BEEN ESTABLISHED BASED ON THE FOURTH UNIVERSAL DEFINITIONS OF MYOCARDIAL INFARCTION. THE UPPER REFERENCE LIMIT (URL) OF TROPONIN, DEFINED THE 99TH PERCENTILE OF cTnI DISTRIBUTION IN A REFERENCE POPULATION, HAS BEEN CONFIRMED THE DECISION THRESHOLD FOR [place] DIAGNOSIS. Previously reported as: 3.9 On 03/13/2022 18:24 By DM9 Performed By: #### A 1C #### [facility] [address] [place] [address] Dr. Rosemary Ames TSHon 03-13-2022 TSH 0.440 uIU/mL Normal 0.358-3.740 [facility] Comment on above: Performed By: #### A 1C #### [facility] [address] [place] [address] Dr. Roseamry Ames XR CHEST 1 Von 03-13-2022 XR [...] TUAN LEWIS Date: 2022-03-13 18:59 Normal [facility] INSULINon 12-11-2021 Insulin 40.7 uIU/mL Critically high 2.6-24.9 [facility] Comment on above: Performed By: #### A 1C #### [facility] [address] [place] [address] Dr. Rosemary Ames BNPon 12-10-2021 NT PRO BNP <11.1 Normal <=450.0 [facility] Comment on above: Performed By: #### T 7, LIPID, TSH, CMADM, BNP, CMP #### [facility] [address] [place] [address] Dr. Rosemary Ames CARDIAC RY ADMITon 022 CK [Catalytic activity/Vol] 80 U/L Normal 26-192 [facility] Comment on above: Performed By: #### T 7, LIPID, TSH, CMADM, BNP, CMP #### [facility] [address] [place] [address] Dr. Rosemary Ames CK.MB [Mass/Vol] 0.56 ng/mL Normal <=3.60 [facility] Comment on above: Performed By: #### T 7, LIPID, TSH, CMADM, BNP, CMP #### [facility] [address] [place] [address] Dr. Rosemary Ames HSTROP 5.3 pg/mL Normal 4.0-51.3 [facility] Comment on above: Result Comment: CUT- OFF POINTS HAVE BEEN ESTABLISHED BASED ON THE FOURTH UNIVERSAL DEFINITIONS OF MYOCARDIAL INFARCTION. THE UPPER REFERENCE LIMIT (URL) OF TROPONIN, DEFINED THE 99TH PERCENTILE OF cTnI DISTRIBUTION IN A REFERENCE POPULATION, HAS BEEN CONFIRMED THE DECISION THRESHOLD FOR KS DIAGNOSIS. Performed By: #### T 7, LIPID, TSH, CMADM, BNP, CMP #### [facility] [address] [place] [address] Dr. Rosemary Ames RADHA 26 ng/mL Normal 9-82 [facility] Comment on above: Performed By: #### T 7, LIPID, TSH, CMADM, BNP, CMP #### [facility] [address] [place] [address] Dr. Rosemary Ames CBC AUTO DIFFon 12-10-2021 BASO # 0.0 103/ul Normal 0.0-0.1 [facility] Comment on above: Performed By: #### E RUR #### [facility] [address] [place] [address] Dr. Rosemary Ames Basophils/100 WBC (Bld) 0.4 % Normal 0.2-2.0 [facility] Comment on above: Performed By: #### E RUR #### [facility] [address] [place] [address] Dr. Rosemary Ames EO # 0.1 103/ul Normal 0.0-0.7 [facility] Comment on above: Performed By: #### E RUR #### [facility] [address] [place] [address] Dr. Rosemary Ames Eosinophils/100 WBC (Bld) 1.0 % Normal 0.9-7.0 [facility] Comment on above: Performed By: #### E RUR #### [facility] [address] [place] [address] Dr. Rosemary Ames Erythrocyte distribution width (RBC) [Ratio] 13.7 % Normal 11.0-15.0 [facility] Comment on above: Performed By: #### E RUR #### [facility] [address] [place] [address] Dr. Rosemary Ames Hematocrit (Bld) [Volume fraction] 40.9 % Normal 36.0-48.0 [facility] Comment on above: Performed By: #### E RUR #### [facility] [address] [place] [address] Dr. Rosemary Ames Hemoglobin (Bld) [Mass/Vol] 13.0 g/dL Normal 12.0-16.0 [facility] Comment on above: Performed By: #### E RUR #### [facility] [address] [place] [address] Dr. Rosemary Ames IG # 0.03 10e3/ul Normal 0.00-0.03 [facility] Comment on above: Performed By: #### E RUR #### [facility] [address] [place] [address] Dr. Rosemary Ames IG % 0.4 % Normal 0.0-0.5 [facility] Comment on above: Performed By: #### E RUR #### [facility] [address] [place] [address] Dr. Rosemary Ames LYMPH # 2.4 103/ul Normal 1.2-3.8 [facility] Comment on above: Performed By: #### E RUR #### [facility] [address] [address] [address] Rosemary Ames Lymphocytes/100 WBC (Bld) 30.3 % Normal 20.5-60.0 [facility] Comment on above: Performed By: #### E RUR #### [facility] [address] [place] [address] Dr. Rosemary Ames MANUAL DIFF REQ NO Normal [facility] Comment on above: Performed By: #### E RUR #### [facility] [address] [place] [address] Dr. Rosemary Ames MCH (RBC) [Entitic mass] 25.8 pg Critically low 26.7-34.0 [facility] Comment on above: Performed By: #### E RUR #### [facility] [address] [place] [address] Dr. Rosemary Ames MCHC (RBC) [Mass/Vol] 31.8 g/dL Normal 29.9-35.2 [facility] Comment on above: Performed By: #### E RUR #### [facility] [address] [place] [address] Dr. Rosemary Ames MCV (RBC) [Entitic vol] 81.2 fL Normal 81.0-99.0 [facility] Comment on above: Performed By: #### E RUR #### [facility] [address] [place] [address] Dr. Rosemary Ames MONO # 0.5 103/ul Normal 0.3-0.8 [facility] Comment on above: Performed By: #### E RUR #### [facility] [address] [place] [address] Dr. Rosemary Ames Monocytes/100 WBC (Bld) 6.1 % Normal 1.7-12.0 [facility] Comment on above: Performed By: #### E RUR #### [facility] [address] [place] [address] Dr. Rosemary Ames NEUT # 5.0 103/ul Normal 1.4-6.5 [facility] Comment on above: Performed By: #### E RUR #### [facility] [address] [address] [address] Rosemary Ames Neutrophils/100 WBC (Bld) 61.8 % Normal 43.0-75.0 [facility] Comment on above: Performed By: #### E RUR #### [facility] [address] [address] [address] Rosemary Ames Platelet mean volume (Bld) [Entitic vol] 9.9 fL Normal 9.5-13.5 [facility] Comment on above: Performed By: #### E RUR #### [facility] [address] [place] [address] Dr. Rosemary Ames PLT 284 103/ul Normal 150-450 [facility] Comment on above: Performed By: #### E RUR #### [facility] [address] [place] [address] Dr. Rosemary Ames RBC 5.04 106/ul Normal 4.20-5.40 [facility] Comment on above: Performed By: #### E RUR #### [facility] [address] [place] [address] Dr. Rosemary Ames WBC 8.0 103/ul Normal 4.0-11.0 [facility] Comment on above: Performed By: #### E RUR #### [facility] [address] [place] [address] Dr. Rosemary Ames FREE THYROXINE INDEX T7on FTI 2.31 Normal 1.30-4.50 [facility] Comment on above: Performed By: #### T 7, LIPID, TSH, CMADM, BNP, CMP #### [facility] [address] [place] [address] Dr. Rosemary Ames T3U 30.0 % Normal 30.0-39.0 [facility] Comment on above: Performed By: #### T 7, LIPID, TSH, CMADM, BNP, CMP #### [facility] [address] [place] [address] Dr. Rosemary Ames T4 [Mass/Vol] 7.70 ug/dL Normal 4.80-13.90 [facility] Comment on above: Performed By: #### T 7, LIPID, TSH, CMADM, BNP, CMP #### [facility] [address] [place] [address] Dr. Rosemary Ames GLYCOHEMOGLOBIN A1Con 2021 ADA RECOMMENDATION SEE BELOW Normal [facility] Comment on above: Result Comment: ADA RECOMMENDED LIMIT 4.0 - 6.0 ADA THERAPEUTIC TARGET < 7.0 ACTION SUGGESTED > 7.0 Performed By: #### A 1C #### [facility] [address] [place] [address] Dr. Rosemary Ames Glucose [Mass/Vol] 243 mg/dL Normal [facility] Comment on above: Performed By: #### A 1C #### [facility] [address] [place] [address] Dr. Rosemary Ames HbA1c (Bld) [Mass fraction] 10.1 % Critically high 4.5-6.2 [facility] Comment on above: Performed By: #### A 1C #### [facility] [address] [place] [address] Dr. Rosemary Ames IRONon 12-10-2021 Iron [Mass/Vol] 29.0 ug/dL Critically low 50.0-170.0 [facility] Comment on above: Performed By: #### A 1C #### [facility] [address] [place] [address] Dr. Rosemary Ames LIPID PROFILEon 12-10-2021 CHOL-HDL RATIO NORM SEE BELOW Normal The [facility] Comment on above: Result Comment: 3.3 - 4.4 LOW RISK 4.4 - 7.1 AVERAGE RISK 7.1 - 11.0 MODERATE RISK >11.0 HIGH RISK Performed By: #### T 7, LIPID, TSH, CMADM, BNP, CMP #### [facility] [address] [place] [address] Dr. Rosemary Ames Cholesterol [Mass/Vol] 184 mg/dL Normal <=200 [facility] Comment on above: Performed By: #### T 7, LIPID, TSH, CMADM, BNP, CMP #### [facility] [address] [address] [address] Rosemary Ames Cholesterol in HDL [Mass/Vol] 44 mg/dL Normal 40-60 [facility] Comment on above: Performed By: #### T 7, LIPID, TSH, CMADM, BNP, CMP #### [facility] [address] [address] [address] Rosemary Ames Cholesterol in LDL [Mass/Vol] 94.6 mg/dL Normal [facility] Comment on above: Performed By: #### T 7, LIPID, TSH, CMADM, BNP, CMP #### [facility] [address] [address] [address] Rosemary Ames Cholesterol.total/Chol esterol in HDL [Mass ratio] 4.2 {ratio} Normal [facility] Comment on above: Performed By: #### T 7, LIPID, TSH, CMADM, BNP, CMP #### [facility] [address] [place] [address] Dr. Rosemary Ames HDL NORMAL > or = 60 mg/dl - LOW CARDIOVASCULAR RISK <40 mg/dl - HIGH CARDIOVASCULAR RISK Normal [facility] Comment on above: Performed By: #### T 7, LIPID, TSH, CMADM, BNP, CMP #### [facility] [address] [place] [address] Dr. Rosemary Ames LDL CALC NORMAL SEE BELOW Normal [facility] Comment on above: Result Comment: <100 mg/dl OPTIMAL 100 - 129 mg/dl NEAR OR ABOVE OPTIMAL 130 - 159 mg/dl BORDERLINE HIGH 160 - 189 mg/dl HIGH >190 mg/dl VERY HIGH Performed By: #### T 7, LIPID, TSH, CMADM, BNP, CMP #### [facility] [address] [address] [address] Rosemary Ames Triglyceride [Mass/Vol] 227 mg/dL Critically high <=150 [facility] Comment on above: Performed By: #### T 7, LIPID, TSH, CMADM, BNP, CMP #### [facility] [address] [address] [address] Rosemary Ames VLDL CALC 45.4 mg/dL Normal [facility] Comment on above: Performed By: #### T 7, LIPID, TSH, CMADM, BNP, CMP #### [facility] [address] [place] [address] Dr. Rosemary Ames PROF 14(COMP METB)on 022 Albumin [Mass/Vol] 4.1 g/dL Normal 3.4-5.0 [facility] Comment on above: Performed By: #### T 7, LIPID, TSH, CMADM, BNP, CMP #### [facility] [address] [place] [address] Dr. Rosemary Ames Albumin/Globulin [Mass ratio] 1.1 {ratio} Normal [facility] Comment on above: Performed By: #### T 7, LIPID, TSH, CMADM, BNP, CMP #### [facility] [address] [place] [address] Dr. Rosemary Ames ALP [Catalytic activity/Vol] 83 U/L Normal 46-116 [facility] Comment on above: Performed By: #### T 7, LIPID, TSH, CMADM, BNP, CMP #### [facility] [address] [place] [address] Dr. Rosemary Ames ALT [Catalytic activity/Vol] 166 U/L Critically high 14-59 [facility] Comment on above: Performed By: #### T 7, LIPID, TSH, CMADM, BNP, CMP #### [facility] [address] [place] [address] Dr. Rosemary Ames Anion gap [Moles/Vol] 13.9 mmol/L Normal [facility] Comment on above: Performed By: #### T 7, LIPID, TSH, CMADM, BNP, CMP #### [facility] [address] [place] [address] Dr. Rosemary Ames AST [Catalytic activity/Vol] 97 U/L Critically high 15-37 [facility] Comment on above: Performed By: #### T 7, LIPID, TSH, CMADM, BNP, CMP #### [facility] [address] [place] [address] Dr. Rosemary Ames Bilirubin [Mass/Vol] 0.7 mg/dL Normal 0.2-1.0 [facility] Comment on above: Performed By: #### T 7, LIPID, TSH, CMADM, BNP, CMP #### [facility] [address] [address] [address] Rosemary Ames Calcium [Mass/Vol] 9.2 mg/dL Normal 8.5-10.1 [facility] Comment on above: Performed By: #### T 7, LIPID, TSH, CMADM, BNP, CMP #### [facility] [address] [address] [address] Rosemary Ames Chloride [Moles/Vol] 101 mmol/L Normal 98-107 [facility] Comment on above: Performed By: #### T 7, LIPID, TSH, CMADM, BNP, CMP #### [facility] [address] [place] [address] Dr. Rosemary Ames CO2 [Moles/Vol] 27.5 mmol/L Normal 21.0-32.0 [facility] Comment on above: Performed By: #### T 7, LIPID, TSH, CMADM, BNP, CMP #### [facility] [address] [place] [address] Dr. Rosemary Ames Creatinine [Mass/Vol] 0.65 mg/dL Normal 0.55-1.02 [facility] Comment on above: Performed By: #### T 7, LIPID, TSH, CMADM, BNP, CMP #### [facility] [address] [place] [address] Dr. Rosemary Ames EGFR-AF ITALIAN >60 Normal >=60 [facility] Comment on above: Performed By: #### T 7, LIPID, TSH, CMADM, BNP, CMP #### [facility] [address] [place] [address] Dr. Rosemary Ames EGFR-NON AF ITALIAN >60 Normal >=60 [facility] Comment on above: Performed By: #### T 7, LIPID, TSH, CMADM, BNP, CMP #### [facility] [address] [address] [address] Rosemary Ames Globulin (S) [Mass/Vol] 3.8 g/dL Normal [facility] Comment on above: Performed By: #### T 7, LIPID, TSH, CMADM, BNP, CMP #### [facility] [address] [address] [address] Rosemary Ames Glucose [Mass/Vol] 299 mg/dL Critically high 74-106 T [facility] Comment on above: Performed By: #### T 7, LIPID, TSH, CMADM, BNP, CMP #### [facility] [address] [place] [address] Dr. Rosemary Ames Potassium [Moles/Vol] 4.4 mmol/L Normal 3.5-5.1 [facility] Comment on above: Performed By: #### T 7, LIPID, TSH, CMADM, BNP, CMP #### [facility] [address] [place] [address] Dr. Rosemary Ames Protein [Mass/Vol] 7.9 g/dL Normal 6.4-8.2 [facility] Comment on above: Performed By: #### T 7, LIPID, TSH, CMADM, BNP, CMP #### [facility] [address] [place] [address] Dr. Rosemary Ames Sodium [Moles/Vol] 138 mmol/L Normal 136-145 [facility] Comment on above: Performed By: #### T 7, LIPID, TSH, CMADM, BNP, CMP #### [facility] [address] [place] [address] Dr. Rosemary Ames Urea nitrogen [Mass/Vol] 8.0 mg/dL Normal 7.0-18.0 [facility] Comment on above: Performed By: #### T 7, LIPID, TSH, CMADM, BNP, CMP #### [facility] [address] [place] [address] Dr. Rosemary Ames Urea nitrogen/Creatinine [Mass ratio] 12.3 mg/mg Normal [facility] Comment on above: Performed By: #### T 7, LIPID, TSH, CMADM, BNP, CMP #### [facility] [address] [place] [address] Dr. Rosemary Ames TSHon 12-10-2021 TSH 0.921 uIU/mL Normal 0.358-3.740 [facility] Comment on above: Performed By: #### T 7, LIPID, TSH, CMADM, BNP, CMP #### [facility] [address] [address] [address] Rosemary Ames MG [facility] DI[facility]NOSTIC 3D JESICA CA Don 11-29-2021 [facility]NO[facility] 3D JESICA CAD Patient: TESS ASHLEY. Exam Date: 11/29/2021 : 1995 Gender:F Ordering : DR CHAMP LAUREANO . Admission #: [id number] Family : Order #: [id number] CLICK HERE TO VIEW EXAM RADIOLOGY REPORT [...] with breast cancer at age 41. LOCATION: [facility] BREAST COMPOSITION: Heterogeneously dense,which may [...] M.D. on 11/29/2021 at 09:59 Normal [facility] US BREAST RIGHT LIMITEDon US BREAST RIGHT LIMITED Patient: TESS ASHLEY. Exam Date: 11/29/2021 : 1995 Gender:F Ordering : DR CHAMP LAUREANO . Admission #: [id number] Family : Order #: [id number] CLICK HERE TO VIEW EXAM RADIOLOGY REPORT [...] breast cancer at age 41. LOCATION: [facility] BREAST COMPOSITION: Heterogeneously dense,which may obscure [...] Biggs M.D. on 11/29/2021 at 09:59 Normal [facility] MRI BRAIN WO CONon MRI BRAIN [...] by: SEBLE BIGGS Date: 2021-09-13 12:13 Normal [facility] Glucose (Bld) [Mass/Vol]on 0 08-27-2021 Glucose [Mass/Vol] 188 mg/dL [facility] No Panel Informationon 08-27 Interpretation and review of laboratory results Abnormal [facility] POC Hemoglobin A1Con 022 HbA1c (Bld) [Mass fraction] 7.7 % Abnormal 4 - 6 % [facility] SEROLOGYOrdered By: Fabian echeverria on 08-24-2021 Beta hCG Ql Negative (08/24/21 11:29 PM) Normal [facility] Man Sero XR KNEE LT [...] by: SYLVESTER PRINGLE Date: 2021-08-15 16:18 Normal [facility] US KIDNEYS BLADDERon US KIDNEYS BLADDER EXAMINATION: [...] MAY PILLAI Date: 2021-06-13 10:16 Normal [facility] Testosterone Free and Total by LC-MS/MSon 02-04-2021 Sex Hormone Binding Globulin 11 nmol/L Low 30-135 [facility] Comment on above: Result Comment: REFE RENCE INTERVAL: Sex Hormone Binding Globulin Access complete set of age- and/or gender-specific reference intervals for this test in the [facility] Test [facility] ([facility]IB[facility]). Testosterone, Free LC-MS/MS 9.1 pg/mL Critically high [...] reference intervals for this test in the [facility] Test Directory ([facility]VIBO). This test was developed and its performance characteristics determined by [facility]. It has not been cleared or approved by the [place] Food and Drug Administration. This test was performed in a CLIA certified laboratory and is intended for clinical purposes. Performed By: [facility] [address] [place] [id number] Health Insurance Agent: Kiersten Jones MD Testosterone, LC-MS/MS 35 ng/dL Normal 9-55 [facility] Comment on above: Result Comment: Oscar rutherford Testosterone, Females 18 years and older Premenopausal 9-55 ng/dL Postmenopausal 5-32 ng/dL REFERENCE INTERVAL: Testosterone, LC-MS/MS Access complete set of age- and/or gender-specific reference intervals for this test in the [facility] Test Directory ([facility]IBO). This test was developed and its performance characteristics determined by [facility]. It has not been cleared or approved by the [place] Food and Drug Administration. This test was performed in a CLIA certified laboratory and is intended for clinical purposes. Cortisol Daljit 01-31-2021 Cortisol AM 11.0 ug/dL Normal 6.2-19.4 [facility] Comment on above: Performed By: #### C AKSHAT #### [facility] [address] [place] [address] Social History Date Type Detail Facility Start: 05-07-2023 Tobacco use and exposure Smokeless tobacco non-user [facility] Start: 05-07-2023 End: 05-29-2023 [facility] Start: 04-23-2023 Tobacco smoking status ILIS Tobacco smoking consumption unknown [facility] Start: 04-17-2023 Alcohol intake Lifetime non-d jorge (finding) [facility] Start: 03-24-2023 End: 05-07-2023 Sex Assigned At Female [facility] Start: 03-24-2023 End: 05-07-2023 Tobacco smoking status NHIS Never smoked tobacco [facility] Start: 03-24-2023 End: 05-07-2023 History of Social function [facility] Start: 02-27-2023 Gender identity Identifies as female gender (finding) [facility] Start: 02-04-2023 [facility] Start: 08-24-2021 Tobacco smoking status Never [facility] Start: 08-17-2021 End: 08-27-2021 Exposure to SARS-CoV-2 (event) Not sure [facility] Start: 1995 [facility]: 1995 [facility] At Female [facility] Vital Signs Date Time Vital Sign Value Performing Clinician Facility 08-22-2023 00:15-0400 Hourly Rounding [facility] Comment on above: Result Comment: Patient discharged off u nit in wheelchair. 08-22-2023 00:00-0400 Diastolic blood pressure 47 mm[Hg] [facility] 08-22-2023 00:00-0400 Heart rate 122 /min [facility] 08-22-2023 00:00-0400 Mean blood pressure 71 mm[Hg] [facility] 08-22-2023 00:00-0400 Systolic blood pressure 120 mm[Hg] [facility] 08-21-2023 23:45-0400 Blood Pressure Location Sg Naresh [facility] 08-21-2023 23:45-0400 Diastolic blood pressure 52 mm[Hg] [facility] 08-21-2023 23:45-0400 Heart rate 119 /min [facility] 08-21-2023 23:45-0400 Mean blood pressure 78 mm[Hg] [facility] 08-21-2023 23:45-0400 Respiratory rate 16 /min [facility] 08-21-2023 23:45-0400 Systolic blood pressure 130 mm[Hg] [facility] 08-21-2023 23:36-0400 Hourly Rounding [facility] Comment on above: Result Comment: Patient sitting in bed. Call light within reach. 08-21-2023 23:30-0400 Body temperature 97.88 [degF] [facility] 08-21-2023 23:30-0400 Diastolic blood pressure 69 mm[Hg] [facility] 08-21-2023 23:30-0400 Heart rate 135 /min [facility] 08-21-2023 23:30-0400 Mean blood pressure 82 mm[Hg] [facility] 08-21-2023 23:30-0400 Respiratory rate 18 /min [facility] 08-21-2023 23:30-0400 Systolic blood pressure 107 mm[Hg] [facility] 08-21-2023 22:09-0400 Hourly Rounding [facility] Comment on above: Result Comment: Labetalol given for BP. 08-21-2023 21:30-0400 Body temperature 98.42 [degF] Sg [facility] 08-21-2023 20:20-0400 Diastolic blood pressure 91 mm[Hg] Tyler Melina [facility] 08-21-2023 20:20-0400 Heart rate 138 /min Tyler Melina [facility] 08-21-2023 20:20-0400 Mean blood pressure 110 mm[Hg] Tyler Melina [facility] 08-21-2023 20:20-0400 Respiratory rate 20 /min Tyler Melina [facility] 08-21-2023 20:20-0400 SaO2% (BldA) [Mass fraction] 97 % Tyler Melina [facility] 08-21-2023 20:20-0400 Systolic blood pressure 149 mm[Hg] Tyler Melina [facility] 08-21-2023 19:43-0400 Diastolic blood pressure 86 mm[Hg] Tyler Melina [facility] 08-21-2023 19:43-0400 Heart rate 141 /min Tyler Melina [facility] 08-21-2023 19:43-0400 Respiratory rate 18 /min Tyler Melina [facility] 08-21-2023 19:43-0400 Systolic blood pressure 158 mm[Hg] Tyler Melina [facility] 08-21-2023 19:22-0400 Body temperature 98.6 [degF] Tyler Melina [facility] 08-21-2023 19:22-0400 Diastolic blood pressure 103 mm[Hg] Tyler Melina [facility] 08-21-2023 19:22-0400 Heart rate 131 /min Tyler Melina [facility] 08-21-2023 19:22-0400 Mean blood pressure 118 mm[Hg] Tyler Melina [facility] 08-21-2023 19:22-0400 Respiratory rate 16 /min Tyler Melina [facility] 08-21-2023 19:22-0400 Systolic blood pressure 148 mm[Hg] Tyler Melina [facility] 08-21-2023 19:07-0400 Body temperature 99.14 [degF] Tyler Melina [facility] 08-21-2023 19:07-0400 Heart rate 140 /min Tyler Melina [facility] 08-21-2023 19:07-0400 Respiratory rate 22 /min Tyler Melina [facility] 05-07-2023 15:08-0500 Body height 152.4 cm Opal Ivana FLY FINISHER-MECHANICAL ENGINEER Work Phone: [facility] 05-07-2023 15:08-0500 Body mass index (BMI) [Ratio] 48.43 kg/m2 Opal Ivana FLY FINISHER-MECHANICAL ENGINEER Work Phone: [facility] 05-07-2023 15:08-0500 Body weight 112.49 kg Opal Heath FLY FINISHER-MECHANICAL ENGINEER Work Phone: [facility] 05-07-2023 15:08-0500 Diastolic blood pressure 64 mm[Hg] Opal Heath FLY FINISHER-MECHANICAL ENGINEER Work Phone: [facility] 05-07-2023 15:08-0500 Heart rate 111 /min Opal Heath FLY FINISHER-MECHANICAL ENGINEER Work Phone: [facility] 05-07-2023 15:08-0500 Systolic blood pressure 136 mm[Hg] Opal Heath APRN-MECHANICAL ENGINEER Work Phone: [facility] 05-07-2023 14:16-0500 Body mass index (BMI) [Ratio] 48.63 kg/m2 [facility] 05-07-2023 14:16-0500 Body weight 112.95 kg [facility] 04-17-2023 10:25-0500 Body mass index (BMI) [Ratio] 47.85 kg/m2 Mario Zoraida DO Work Phone: [facility] 04-17-2023 10:25-0500 Body weight 111.13 kg Mario Zoraida DO Work Phone: [facility] 04-17-2023 10:25-0500 Diastolic blood pressure 76 mm[Hg] Mario Zoraida DO Work Phone: [facility] 04-17-2023 10:25-0500 Systolic blood pressure 122 mm[Hg] Mario Zoraida DO Work Phone: [facility] 08-27-2021 11:09-0400 Body height 152.4 cm Gregorio Floyd MD Work Phone: [facility] 08-27-2021 11:09-0400 Body mass index (BMI) [Ratio] 46.68 kg/m2 Gregorio Floyd MD Work Phone: [facility] 08-27-2021 11:09-0400 Body weight 108.41 kg Gregorio Floyd MD Work Phone: [facility] 08-27-2021 11:09-0400 Diastolic blood pressure 86 mm[Hg] Gregorio Floyd MD Work Phone: [facility] 08-27-2021 11:09-0400 Heart rate 97 /min Gregorio Floyd MD Work Phone: [facility] 08-27-2021 11:09-0400 Systolic blood pressure 125 mm[Hg] Gregorio Floyd MD Work Phone: [facility] 08-25-2021 14:00-0400 Diastolic blood pressure 81 mm[Hg] Tyler Melina [facility] 08-25-2021 14:00-0400 Heart rate 85 /min Tyler Melina [facility] 08-25-2021 14:00-0400 Mean blood pressure 100 mm[Hg] Tyler Melina [facility] 08-25-2021 14:00-0400 Respiratory rate 16 /min Tyler Melina [facility] 08-25-2021 14:00-0400 SaO2% (BldA) [Mass fraction] 98 % Tyler Melina [facility] 08-25-2021 14:00-0400 Systolic blood pressure 138 mm[Hg] Tyler Melina [facility] 08-25-2021 01:00-0400 Diastolic blood pressure 85 mm[Hg] Tyler Melina [facility] 08-25-2021 01:00-0400 Heart rate 87 /min Tyler Melina [facility] 08-25-2021 01:00-0400 Respiratory rate 16 /min Tyler Melina [facility] 08-25-2021 01:00-0400 SaO2% (BldA) [Mass fraction] 98 % Tyler Melina [facility] 08-25-2021 01:00-0400 Systolic blood pressure 140 mm[Hg] Tyler Melina [facility] 08-25-2021 00:00-0400 Diastolic blood pressure 89 mm[Hg] Tyler Melina [facility] 08-25-2021 00:00-0400 Heart rate 95 /min [facility] Melina [facility] 08-25-2021 00:00-0400 SaO2% (BldA) [Mass fraction] 97 % [facility] Melina [facility] 08-25-2021 00:00-0400 Systolic blood pressure 149 mm[Hg] [facility] Melina [facility] 08-24-2021 22:50-0400 Body temperature 100.22 [degF] [facility] Functional Status Date Assessment Result Facility 08-21-2023 Functional Status N/A [facility] 08-21-2023 Functional Status N/A [facility] 08-24-2021 Functional Status N/A [facility] Clinical Notes 08-24-2021 to 08-22-2023 Note Date & Type Note Facility 08-22-2023 Hospital Discharg e instructions Patient Education 08/21/2023 23:40:58 Vaginal Bleeding During , Third Trimester, Ihmn-zu-Iawv Vaginal Bleeding During , Third Trimester A [...] you with your normal activities. Medicines Take drwx-rzr-akljdex and prescription medicines only as told by [...] provider. Document Revised: 11/16/2020 Document Reviewed: 11/16/2020 Elsevier Patient Education 2022 [employer]. 08/21/2023 23:40:58 Hypertension During , Nomu-qe-Qvwv Hypertension During Hypertension is also called high [...] are best for you. General instructions Take helk-sbi-ndymedh and prescription medicines only as told by [...] provider. Document Revised: 11/16/2020 Document Reviewed: 11/16/2020 [employer] Patient Education 2022 [employer] 08/21/2023 23:40:58 Form - Movement Counts [...] provider. Document Revised: 10/14/2019 Document Reviewed: 10/14/2019 [employer] Patient Education 2022 [employer]. Follow Up Care 08/21/2023 21:25:46 With:Mario CONWAY Address: [address] , [place] [address] [facility] (1) When:08/22/2023 Comments:Call Dr if fever>100.5 F, heavy bleedingCall for severe abdominal painCall physician for heavy vaginal bleedingCall physician if symptoms worsenReturn for contractions closer, longer, harderReturn for decreased movementReturn if ruptured membranes or vaginal bleeding [facility] 08-22-2023 Note The following Patien t Education Materials have been given to the patient: EducationMaterial [facility] 08-21-2023 Hospital Discharg e instructions Patient Education [...] your health care provider. General instructions Take ybux-pxp-qpqzqtp and prescription medicines only as told by [...] provider. Document Revised: 05/25/2020 Document Reviewed: 05/25/2020 [employer] Patient Education 2022 [employer]. Follow Up Care 08/21/2023 19:05:36 With:Roosevelt Maldonado Address: [address] [place] [address] Business (1) When:08/24/2023 21:04:34 With:Champ Laureano Address: [address] [place] [address] Business (1) When:Within 3 Day(s) [facility] 08-21-2023 Evaluation + Plan note Extrac [...] Views Right XR Wrist 3+ Views Left [facility]03-21-2024 History of Present illness Narrative* Leana Burr MD - 05/29/2023 10:45 AM EDT [facility]- Diabetes Visit TELEMEDICINE VISIT: This is an audiovisual visit. This is done to assess the patient and to determine the best medical care. The patient was located at home in [place] and the provider was located at the medical office in [place]. The patient states they are not driving [...] of Delivery: 10/28/23. She is referred from [facility] who is managing along with us. She has had her diabetes education with [facility]. Please see media for full pump [...] within last year: none. Complications: History of KS, CHF: none Medications none Last Lipid panel drawn due after History of HTN: no Medications none History of Diabetic Retinopathy: unknown. Last seen Worksite Wellness Practitioner unknown History of peripheral neuropathy: none Medications [...] 10/28/23. She has had diabetes education with [facility]. We reviewed the following We have discussed the issue of insulin-dependent diabetes mellitus and the effect of in detail. There is an elevated risk of malformation of the order of 22% in those who have tmcryyyucwZ0N 8.5 and higher. Patient aware that maternal [...] breakfast: try low sugar protein shakes or canadian yogurt if appetite lower inthe AM. Complications/ [...] to foot injury. : I agree with [facility] recommendations for care. NSTs twice weekly with weekly WEI starting at 32 weeks. Growth US every 4 weeks starting at 28 weeks. Tentative delivery by 39 weeks, but will defer to MFM. Follow up in 1 week. Following at least once per trimester with [facility] as well. [facility] in this encounterMer[facility] Fairfield [...] of Delivery: 10/28/23. She is referred from [facility] who is managing along with us. She has had her diabetes education with [facility]. Please see media for full pump [...] within last year: none. Complications: History of KS, CHF: none Medications none Last Lipid panel drawn due after History of HTN: no Medications none History of Diabetic Retinopathy: unknown. Last seen Worksite Wellness Practitioner unknown History of peripheral neuropathy: none Medications [...] History: Diagnosis Date Anxiety Depression Diabetes mellitus ([facility]) Disease of thyroid gland Hypertension No past [...] 10/28/23. She has had diabetes education with [facility]. We reviewed the following We have discussed the issue of insulin-dependent diabetes mellitus and the effect of in detail. There is an elevated risk of malformation of the order of 22% in those who have oqnxeqnnmkZ6I 8.5 and higher. Patient aware that maternal [...] considerably as her current automated basal is units but her basal rates were recently [...] breakfast: try low sugar protein shakes or canadian yogurt if appetite lower inthe AM. Complications/ [...] with MFM as well. LEANA BURR MD [facility] Miscellaneous Notes* Telephone Encounter - Joann [...] and denied any questions. documented in this [facility]03-05-2024 Telephone encounter Note* Telephone Encounter - Joann [...] meals. Verbalized understanding and denied any questions. [facility] Work Phone: [phone] Miscellaneous Notes* Telephone Encounter - Joann Walsh [...] week 05/20/23. Informed would call back after [facility] provider reviews. documented in this encounterMercy Health [...] week 05/20/23. Informed would call back after [facility] provider reviews. [facility] Work Phone: 1(856) 296-718802-28-2024 History of Present illness Narrative* Queta Zazueta [...] results Have you been seen here at [facility] in a previous ? N/a Recent ER visits or hospitalizations? No Bring blood sugar log or meter with you today? (Please bring them with you for every visit at [facility]) yes Traveled outside the country in [...] no complaints. She is being followed at [facility] due to Type 2 DM. [...] TSH 1.05 04/01/2023 No results found for: [id number] No results found for: CREATININE , BUN [...] by e-mail to: or by fax to: [phone] 40 Minutes spent geue-ik-ryho; more than 50% of time spent counseling and/or coordinating care withadditional time for record review and communication to referring provider. SABINA Uribe 05/07/23 1556 documented in this encounterBrattleboro Memorial HospitalArt-Exchange [id number] History of Present illness Narrative* Danyell Ortiz [...] care for you: OB Provider Family Doctor Editorial Project Manager Name: Sebastian Name: No primary care provider on file. Name:[facility] City: City: City: Last time seen: [...] demonstration Is there anything about your culture, amish, or personal beliefs we need to know about to care for you: Other none Primary Language spoken: Finnish [22] Primary Language for learning: Finnish Are you currently in a relationship where you are physically hurt, threatened or made to fee afraid? [] Yes [x] No Metal Products Fabricator Assembler needed? [] Yes [x] No Marital status/Living [...] If yes, where: On thge following scale, squaxin the number, which describes your current level [...] Past Medical History: Diagnosis Date Diabetes mellitus ([facility]) Disease of thyroid gland Hypertension [...] Educational Level high school Family issues none Cultural/ethnic/jain influences none Exercise approved by MD? Current Exercise program walking Who prepares the meal pt Who purchase food at your home? pt Equipment use for cooking/food storage has all Food Assistance(Ex.WIC, Food [employer]) has apt Dining out Yes 1 time per month Appetite/Appetite changes increased Weight History stable Do you have cats at home? Infant Feeding Plans Breast Feeding If you have cats, who cleans the litter box? Cravings/Aversions/Pica none currently Nutrition Assessment Worksheet: Week/Weekend Food Recall Breakfast [place] Or cereal Or eggs Snack Lunch Grilled cheese Or noodles Snack Dinner 2 Cheeseburger Sugar free pink lemonade Snack Snack Time Tess A Kentrell present for diet instruction per doctor order [...] Management Support Plan, patient chose to use [employer] to help manage her diabetes. Patient understands that we will follow up weekly with a phone call to review progress. Face to face time 40 minutes. documented in this encounterBrattleboro Memorial HospitalPSafe02-28-2024 Instructions* Patient Instructions* Danyell Ortiz RN - [...] 4 HOURS WHILE AWAKE documented in this encounterCleveland Clinic Fairview HospitalSocialProof [id number] Miscellaneous Notes* Telephone Encounter - Danyell Ortiz RN - 04/23/2023 12:23 PM EST Called pt due toher not coming to her appt today and she stated she had left a message that she needed to tammi due to not having transportation to her appt this morning. Her name given back to the schedulers to call and resched her. documented in this encounterCleveland Clinic Fairview HospitalSocialProof [id number] Telephone encounter Note* Telephone Encounter - Danyell Ortiz RN - 04/23/2023 12:23 PM EST Called pt due toher not coming to her appt today and she stated she had left a message that she needed to tammi due to not having transportation to her appt this morning. Her name given back to the schedulers to call and resched her. [facility] Caring in Place [id number] History of Present illness Narrative* Mario Conway [...] Hand fracture, right Type 2 diabetes mellitus ([facility]) Family History Problem Relation Name Age of [...] nursing note reviewed. Exam conducted with a doors prefitter present. Vitals: Estimated body mass index is [...] of: Mario Conway DO documented in this encounterCap[facility] [id number] Instructions* Patient Instructions* Gregorio Floyd MD - [...] hold levothyroxine for now. documented in this [id number] History of Present illness Narrative* Gregorio Floyd [...] ALKPHOS, BILITOT No results found for: TSH, Y3XVSWI, THYROIDAB No results found for: PTH, CALCIUM, JACQUES, PHOS Lab Results Component Value Date HGBA1C 7.7 (A) 08/27/2021 No results found for: LDLCALC, CHOL, HDL, TRIG, CHOLHDL No results found for: MICALBCREAT, PJWQ02MMC No results found for: CPEPTIDE Assessment and [...] acanthosis nigricans indicate T2DM, but will get ANL50-Ga and c-peptide/glucose given the young age of [...] Due for foot exam no 08/2021; to newspaper delivery counselor on foot care next visit CV [...] Gregorio Floyd MD Endocrinology documented in this [id number] Hospital Discharge instructions Patient Education 08/25/2021 02:09:26 [...] Ask your health care provider for a ltap-tq-kgln plan for gradually returning to activities. Ask [...] your friends, family, a trusted colleague, and moving worker about your injury, symptoms, and restrictions. Have them watch for any new or worsening problems. General instructions Take vjys-koq-slyndbs and prescription medicines only as told by [...] 02/24/2006 Document Revised: 03/24/2019 Document Reviewed: 03/19/2019 RealityMine Patient Education 2020 [employer]. 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 General instructions Take wjvl-ijx-qsgiovb and prescription medicines only as told by [...] 12/22/2007 Document Revised: 06/16/2019 Document Reviewed: 10/23/2016 [employer]Mine Patient Education 2020 [employer]. Follow Up Care 08/24/2021 22:42:21 With:Champ Oneillrosamaria Address: [address] [place] [id number] Business (1) When:Within 3 Day(s) [facility]06-17-2022 Evaluation + Plan noteExtracted from: Title:ED [...] w/o Contrast CT Spine Cervical w/o Contrast [facility]* Diagnosis Thyroid disorder- Primary Unspecified disorder of thyroid Hair loss Unspecified alopecia [facility] Diagnosis Type 2 diabetes mellitus with hyperglycemia, unspecified whether longterm insulin use (HCC)- Primary Thyroid disorder Unspecified disorder of thyroid Hair loss Unspecified alopecia [facility]* Diagnosis Bleeding in early Unspecified hemorrhage in early , unspecified as to episode of care Follow-up exam Unspecified follow-up examination [facility] Diagnosis Type 2 diabetes mellitus in , second trimester- Primary Insulin pump in place Insulin pump status HTN in , chronic documented in this encounter [facility]* Diagnosis Type 2 diabetes mellitus in , second trimester- Primary Pre-existing type 2 diabetes mellitus during in first trimester documented in this encounter [facility]* Diagnosis Type 2 diabetes mellitus in , second trimester- Primary documented in this encounter [facility]* Diagnosis Type 2 diabetes mellitus in , second trimester- Primary documented in this encounter [facility]* Diagnosis Type 2 diabetes mellitus in , second trimester- Primary documented in this encounter [facility]* Diagnosis Type 2 diabetes mellitus in , second trimester- Primary documented in this encounter [facility] HospitalHospital course Narrative No data available for this section [facility] HospitalInstructionsNot on filedocumented in this encounter [facility] SystemInstructionsNot on filedocumented in this encounter [facility] SystemInstructionsNot on filedocumented in this encounter [facility] SystemInstructionsNot on filedocumented in this encounter [facility] SystemInstructionsNot on filedocumented in this encounter [facility] SystemInstructionsNot on filedocumented in this encounter [facility] SystemProgress note No data available for this section [facility] for referral (narrative)* Consultation (Routine) - Pending Review Specialty Diagnoses / Procedures Referred By Contac t Referred To Contact Maternal and Medicine Diagnoses Type 2 diabetes mellitus in , second trimester Insulin pump in place Opal Heath APRN-CNP [address] [place] [address] Leana Burr MD [address], [address] [address] Referral ID Status Reason Start Date Expiration Date Visits Requested Visits Authorized [id number] Pending Review Specialty Services Required 05/07/2023 05/06/2024 1 1 [facility] for referral (narrative)* Consultation (Routine) - Pending Review Specialty Diagnoses / Procedures Referred By Contac t Referred To Contact Endocrinology Diagnoses Type 2 diabetes mellitus in , second trimester Mary Guidry APRN-CNM [address], [address] [place] [address] Leana Burr MD [address], [address] [address] Referral ID Status Reason Start Date Expiration Date Visits Requested Visits Authorized [id number] Pending Review Specialty Services Required 05/20/2023 05/19/2024 1 1 [facility] HospitalReason for visit Narrative* Consultation (Routine) - Pending Review Specialty Diagnoses / Procedures Referred By Contmichelle t Referred To Contact Endocrinology Diagnoses Type 2 diabetes mellitus in , second trimester Mary Guidry, FLY FINISHER-CNM [address], [address] [place] [address] Leana Burr MD [address], [address] [address] Referral ID Status Reason Start Date Expiration Date Visits Requested Visits Authorized [id number] Pending Review Specialty Services Required 05/20/2023 05/19/2024 [...] FoundDocuments on File Type Date Recorded 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 Advance Directives and Livin g Will 05/02/2021 12:00 AM Reason for Referral Specialty Diagnoses / Procedures Referred By Juan Antonio t Referred To Contact Endocrinology Diagnoses Thyroid disorder Hair loss Champ Laureano MD [address] [facility] [place] [address] [place] [address] Gregorio Floyd MD [address] [place] [phone] Referral ID Status Reason Start Date Expiration Date Visits Requested Visits Authorized [id number] Authorized Specialty Services Required/Pat ient's Best Interest 05/04/2021 05/04/2022 1 1 Specialty Diagnoses / Procedures Referred By Contac t Referred To Contact Maternal and Medicine Diagnoses Type 2 diabetes mellitus in , second trimester Procedures US MF with or without consult Opal Heath, FLY FINISHER-MECHANICAL ENGINEER [address] [place] [address] [facility] Maternal Med [address] [place] [address] Referral ID Status Reason Start Date Expiration Date V isits Requested Visits Authorized [id number] Pending Review 05/08/2023 05/07/2024 1 1 Additional Source Comments INFORMATION SOURCE (unrecogn ized section and content) DATE CREATED AUTHOR 02/06/2021 [facility] DATE CREATED AUTHOR AUTHOR'S ORGANIZ ATION 08/27/2021 [facility] DATE CREATED AUTHOR AUTHOR'S ORGANIZ ATION 06/02/2022 [facility] DATE CREATED AUTHOR AUTHOR'S ORGANIZ ATION 08/14/2023 [facility] DATE CREATED AUTHOR AUTHOR'S ORGANIZ ATION 08/21/[address] 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 Plant Operator Helper Relationship Specialty Start Date End Date Champ Laureano MD [address] [place] [address] PCP - General Family Medicine 05/02/21 Contact 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 Plant Operator Helper Relationship Specialty Start Date End Date Champ Laureano MD [address] [place] [address] PCP - General 03/13/23 Reason for Visit (unrecogniz ed section and content) Reason Comments Thyroid Problem Specialty Diagnoses / Procedures Referred By Contac t Referred To Contact Endocrinology Diagnoses Thyroid disorder Hair loss Champ Laureano MD [address] [facility] [place] [address] [place] [address] Gregorio Floyd MD [address] [place] [address] Referral ID Status Reason Start Date Expiration Date V isits Requested Visits Authorized [id number] Closed Specialty Services Required/Deanna ent's Best Interest 05/04/2021 05/04/2022 1 1 Reason Comments ER Follow-up Reason Comments t2dm Reason Comments Diabetes Specialty Diagnoses / Procedures Referred By Contac t Referred To Contact Maternal and Medicine Diagnoses Pre-existing type 2 diabetes mellitus during in first trimester Mario Conway R, DO [address] , [place] [address] [facility] Maternal Med [address] [place] [address] Referral ID Status Reason Start Date Expiration Date Visits Requested Visits Authorized [id number] Pending Review Specialty Services Required 04/15/2023 04/14/2024 [...] BE BASED ON THE PRIMARY CLINICAL RECORDS. [employer] provides no warranty or guarantee of the accuracy or completeness of information in this document.
[2023-09-12 11:24] LABS: Total Protein Urine Random 61.7 mg/dL (<=11.9)
[2023-09-12 11:37] LABS: Total Protein 24 Hour Urine 431.9 mg/24hr (<=149.1); Total Volume 24 Hour Urine 700 mL/24hr
[2023-09-12 11:56] VITALS: BP 126/74; PULSE 103
== END 2023-09-12 12:10 | disposition home or self-care (01) ==
LOC: FBCO 07:07 → FBC 10:49
PROVIDERS: PCP Family Medicine; Visit Provider Obstetrics & Gynecology
DX: O26.893 Other specified pregnancy related conditions, third trimester (principal)
CPT/HCPCS: 59025; 81050; 84156

== ENCOUNTER 2023-09-16 07:04 | Outpatient (OUT) | payer OTHER, SELFPAY ==
--- NOTE | 2023-09-16 11:00 | US_ITS ---
[address] [address] Patient Name: TESS CALVERT MRN: [facility]:[id number] date: 1995 Sex: F Assigned Patient Location: [facility] Current Patient Location: [facility] Accession/Order Number: [id number] Exam Date: 09/16/2023 11:02 Report Date: 09/16/2023 11:28 At the request of: PORSHA MOTA Procedure: US OB BPP w non-stress EXAMINATION: US OB BPP w non-stress HISTORY: Decreased movement COMPARISON: 09/09/2023 TECHNIQUE: Ultrasound biophysical profile was performed in the radiology department. non-reactive stress testing was performed by nursing staff in the birthing center. FINDINGS: BREATHING MOVEMENTS: 2 GROSS BODY MOVEMENTS: 2 TONE: 2 QUALITATIVE AMNIOTIC FLUID VOLUME: 2 PRESENTATION: CEPHALIC HEART RATE: 157.89 bpm AMNIOTIC FLUID VOLUME: 29.9 cm GESTATIONAL AGE: 34 weeks 0 days US/US OB BPP w non-stress IMPRESSION: Total biophysical profile score: 8 Polyhydramnios Electronically authenticated by: MAY PILLAI Date: 09/16/2023 11:28
[2023-09-16 11:18] VITALS: BP 142/79; PULSE 105
== END 2023-09-16 12:20 | disposition home or self-care (01) ==
LOC: US 07:04 → FBC 10:58
PROVIDERS: PCP Family Medicine; Visit Provider Obstetrics & Gynecology
DX: O36.8130 Decreased fetal movements, third trimester, not applicable or unspecified (principal); Z3A.34 34 weeks gestation of pregnancy
CPT/HCPCS: 76818

== ENCOUNTER 2023-09-23 07:11 | Outpatient (OUT) | payer OTHER, SELFPAY ==
--- OUTSIDE RECORDS SUMMARY | 2023-09-23 07:13 | XMS_ITS | CCD ---
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 Treatment: Misc. Issues: Normal [facility] Release of Records Officeon 08-21-2023 Release of Records Office [id number] #1.00TIFF Normal [facility] Troponinon 08-21-2023 Troponin HS 6.40 pg/mL Low 10.10-27.10 [facility] Comment on above: Result Comment: The 95% CI (Confidence Interval) PPV (Positive Predictive Value) for myocardial infarction in females is 38 pg/mL, in males 51 pg/mL. The results should be used in conjunction with clinical conditions of myocardial infarction. (Access High Sensitivity Troponin I Instructions For Use, Jeremiah Makeda, October 2017) Performed By: #### 2 [id number] #### [facility] [address] [place] [address] UA with Cult Rflxon 08-21-19 Bilirubin Ql (U) Negative Normal Negative [facility] Comment on above: Performed By: #### 4 [id number] #### [facility] [address] [place] [address] Clarity (U) Clear Normal Clear [facility] Comment on above: Performed By: #### 4 [id number] #### [facility] [address] [place] [address] Color (U) Yellow Normal Yellow [facility] Comment on above: Result Comment: Micr oscopic readings are only performed on those samples that meet specific criteria set forth by [facility]. Performed By: #### 4 [id number] #### [facility] [address] [place] [address] Epithelial cells.squamous Auto (Urine sed) [#/Area] 5-8 Invalid Interpretation Code [facility] Comment on above: Performed By: #### 4 [id number] #### [facility] [address] [place] [address] Glucose Ql (U) 3+ mg/dL Abnormal Negative [facility] Comment on above: Performed By: #### 4 [id number] #### [facility] [address] [place] [address] Hemoglobin Auto test strip (U) [Mass/Vol] Negative Normal Negative [facility] Comment on above: Performed By: #### 4 [id number] #### [facility] [address] [place] [address] Ketones Auto test strip Ql (U) 1+ mg/dL Abnormal Negative [facility] Comment on above: Performed By: #### 4 [id number] #### [facility] [address] [place] [address] Leukocyte esterase Auto test strip Ql (U) 25 Huey/uL Normal Negative [facility] Comment on above: Performed By: #### 4 [id number] #### [facility] [address] [place] [address] Mucus Auto Ql (U) Trace Normal Negative [facility] Comment on above: Performed By: #### 4 [id number] #### [facility] [address] [place] [address] Nitrite Auto test strip Ql (U) Negative Normal Negative [facility] Comment on above: Performed By: #### 4 [id number] #### [facility] [address] [place] [address] pH (U) 6.0 [pH] Invalid Interpretation Code 5.0-9.0 [facility] Comment on above: Performed By: #### 4 [id number] #### [facility] [address] [place] [address] Protein Ql (U) 1+ mg/dL Abnormal Negative [facility] Comment on above: Performed By: #### 4 [id number] #### [facility] [address] [place] [address] RBC Ql (U) 0-3 Normal 0-3 [facility] Comment on above: Performed By: #### 4 [id number] #### [facility] [address] [place] [address] Specific gravity (U) [Rel density] 1.026 Invalid Interpretation Code 1.005-1.030 [facility] Comment on above: Performed By: #### 4 [id number] #### [facility] [address] [place] [address] Urobilinogen (U) [Mass/Vol] Negative Normal Negative [facility] Comment on above: Performed By: #### 4 [id number] #### [facility] [address] [place] [address] WBC Auto (Urine sed) [#/Area] 0-5 Normal 0-5 [facility] Comment on above: Performed By: #### 4 [id number] #### [facility] [address] [place] [address] Type of Urine collection method Clean Catch Normal [facility] Comment on above: Performed By: #### 4 [id number] #### [facility] [address] [place] [address] URINALYSISOrdered By: Fabian Bernal on 08-21-2023 Bilirubin [...] that meet specific criteria set forth by [facility]. Epithelial cells.squamous Auto (Urine sed) [#/Area] [...] Ql (U) 0-3 graded/HPF Normal 0-3graded/HP F [facility] UA Auto SS Specific gravity (U) [Rel density] 1.026 *NA* (08/21/23 9:39 PM) Invalid Interpretation Code 1.005 - 1.030 [facility] UA Auto SS Urobilinogen (U) [Mass/Vol] Negative Normal Negativemg/d L [facility] UA Auto SS WBC Auto (Urine sed) [#/Area] 0-5 graded/HPF Normal 0-5graded/HP F [facility] UA Auto SS URINALYSISOrdered By: Madison Mulligan on 08-21-2023 UA Spec Desc Clean Catch (08/21/23 9:39 PM) Normal [facility] UA Auto SS eGFRon 08-21-2023 eGFR 137 mL/min/1.73 m2 Normal >=59 [facility] Comment on above: Order Comment: Order added by Discern Expert. Performed By: #### 1 [id number] #### [facility] [address] [place] [address] C peptide [Mass/Vol]on 06-22 C PEPTIDE 5.70 ng/mL High 0.81-3.85 [facility] Comment on above: Result Comment: NOTE Test Performed By: [facility] [address] [place] [address] Jack Tamp Operator: Vaibhav Julian III, M.D. CLIA #[id number] Performed By: #### 2 [id number] #### [facility] ([id number]) [address] [place] [address], [address] [place] [address] GLUCOSEon 06-23-2023 Glucose [Mass/Vol] 168 mg/dL High 65-[address] [facility] Comment on above: Performed By: #### 2 [id number] #### [facility] ([id number]) [address] [place] [address], [address] [place] [address] Glutamate decarboxylase 65 A b IA Qn (S)on 06-23-2023 LATOYA ANTIBODY <5.0 Normal 0.0-5.0 [facility] Comment on above: Result Comment: NOTE INTERPRETIVE INFORMATION: Glutamic Acid Decarboxylase Antibody A value greater than 5.0 IU/mL is considered positive for Glutamic Acid Decarboxylase Antibody (LATOYA Ab). This assay is intended for the semi-quantitative determination of the LATOYA Ab in human serum. Results should be interpreted within the context of clinical symptoms. Performed By: [employer] [address] [place] [address] Jack Tamp Operator: Mark Fitzpatrick MD, PhD CLIA Number: [id number] Performed By: #### 2 [id number] #### [facility] ([id number]) [address] [place] [address], [address] [place] [address] Reference Lab Test IDon 06-08 Insulinoma Ab 2 See Below Normal [facility] Comment on above: Result Comment: NOTE [...] Clinical correlation is required. Test Performed By: [facility] [employer] [address] [place] [address] Jack Tamp Operator: Vaibhav Julian III, M.D. CLIA #[id number] Performed By: #### 2 [id number] #### [facility] ([id number]) [address] [place] [address], [address] [place] [address] CBC without diffon Hematocrit (Bld) [Volume fraction] 40.1 % [facility] [employer] Hemoglobin (Bld) [Mass/Vol] 12.8 g/dL [facility] Plate[facility] (Bld) [#/Vol] 305 10*3/uL [facility] Rbc Mcv (Fl) By Automated Count 82.2 [facility] Free Cell DNAon 2023 Free Cell Dna [facility] HIV 1&2 AB/AG Screen (P24 AG [...] statuson 04-01-2023 Rubella immune IgG immune [facility] Syphilis Total(Unknown Syphi lis Status)on 04-01-2023 Syphilis Non-Reactive [facility] TSHon 04-01-2023 Thyroid Stimulating (3Rd Generation) Hormone/ Tsh 1.051 [facility] TSH Qn 1.05 m[IU]/L [facility] Type and screenon 04-01-2023 Abo/Rh(D) Positive [facility] Urine Cultureon 04-01-2023 Bacteria identified Cx Nom (U) no growth [facility] Covid-19 PCR (CVDTBH)on 05-09 SARS-CoV-2 (COVID-19) RNA EZEKIEL+probe Ql (Unsp spec) Not detected Normal NOT DETECTED [facility] Comment on above: Result Comment: This test is not yet approved or cleared by the [place] FDA. When there are no FDA-approved or cleared tests available, and other criteria are met, FDA can make tests available under an emergency access mechanism called an Emergency Use Authorization (EUA). The EUA for this test is supported by the [place] of Health and Human Service's (HHS's) declaration [...] SARS-CoV-2. Performed By: #### C VDTBH #### [facility] [address] [place] [address] Dr. Rosemary Ames GROUP A STREP CULTUREon 05-09 S. pyogenes Ag Ql (Unsp spec) Culture Observations: NEGATIVE FOR GROUP A STREPTOCOCCUS. Normal [facility] Comment on above: Performed By: #### T 7, LIPID, TSH, CMADM, BNP, CMP #### [facility] [address] [place] [address] Dr. Rosemary Ames INFLUENZA A AND B AGon 05-31 INFLUANE SEE BELOW Normal [facility] Comment on above: Result Comment: Nega tive for Flu A protein angiten. Infection due to Flu A cannot be ruled out. Flu A angiten in the sample may be below the detection limit of the test. Performed By: #### I NFLUAB #### [facility] [address] [place] [address] Dr. Rosemary Ames INFLUBNEG SEE BELOW Normal [facility] Comment on above: Result Comment: Nega tive for Flu B protein antigen. Infection due to Flu B cannot be ruled out. Flu B antigen in the sample may be below the detection limit of the test. Performed By: #### I NFLUAB #### [facility] [address] [place] [address] Dr. Rosemary Ames INFLUENZA A AG Negative Normal NEGATIVE SEE COMMENT [facility] Comment on above: Performed By: #### I NFLUAB #### [facility] [address] [place] [address] Dr. Rosemary Ames INFLUENZA B AG Negative Normal NEGATIVE SEE COMMENT [facility] Comment on above: Performed By: #### I NFLUAB #### [facility] [address] [place] [address] Dr. Rosemary Ames STREPT SCREENon 05-31-2022 STREP SCREEN A Negative Normal NEGATIVE [facility] Comment on above: Performed By: #### E RUR #### [facility] [address] [place], [place] [address] Dr. Rosemary Ames SYMPTOMATIC COVID-19 ANTIGEN on 05-31-2022 EUA Statement SEE BELOW Normal [facility] Comment on above: Result Comment: This test [...] 7, LIPID, TSH, CMADM, BNP, CMP #### [facility] [address] [place] [address] Dr. Rosemary Ames SARS-CoV-2 (COVID-19) RNA EZEKIEL+probe Ql (Unsp spec) Negative Normal NEGATIVE [facility] Comment on above: Performed By: #### T 7, LIPID, TSH, CMADM, BNP, CMP #### [facility] [address] [place], [place] [id number] Dr. Rosemary Ames ECHOCARDIO M/2D COMPLETEon 0 04-10-2022 ECHOCARDIO M/2D COMPLETE Patient: TESS ASHLEY Exam Date: 04/10/2022 : 1995 Gender:F Ordering : DR CHAMP LAUREANO . Admission #: [id number] Family : Order #: [id number] CLICK HERE TO VIEW EXAM ECHOCARDIOGRAM REPORT [...] M.D. on 04/10/2022 at 17:40 Normal [facility] CBC AUTO DIFFon 03-13-2022 BASO # 0.0 103/ul Normal 0.0-0.1 [facility] Comment on above: Performed By: #### A 1C #### [facility] [address] [place] [address] Dr. Rosemary Ames Basophils/100 WBC (Bld) 0.3 % Normal 0.2-2.0 [facility] Comment on above: Performed By: #### A 1C #### [facility] [address] [place] [address] Dr. Rosemary Ames EO # 0.0 103/ul Normal 0.0-0.7 [facility] Comment on above: Performed By: #### A 1C #### [facility] [address] [place] [address] Dr. Rosemary Ames Eosinophils/100 WBC (Bld) 0.5 % Critically low 0.9-7.0 [facility] Comment on above: Performed By: #### A 1C #### [facility] [address] [place] [address] Dr. Rosemary Ames Erythrocyte distribution width (RBC) [Ratio] 14.5 % Normal 11.0-15.0 [facility] Comment on above: Performed By: #### A 1C #### [facility] [address] [place] [address] Dr. Rosemary Ames Hematocrit (Bld) [Volume fraction] 39.7 % Normal 36.0-48.0 [facility] Comment on above: Performed By: #### A 1C #### [facility] [address] [place] [address] Dr. Rosemary Ames Hemoglobin (Bld) [Mass/Vol] 12.9 g/dL Normal 12.0-16.0 [facility] Comment on above: Performed By: #### A 1C #### [facility] [address] [place] [address] Dr. Rosemary Ames IG # 0.03 10e3/ul Normal 0.00-0.03 [facility] Comment on above: Performed By: #### A 1C #### [facility] [address] [place] [address] Dr. Rosemary Ames IG % 0.4 % Normal 0.0-0.5 [facility] Comment on above: Performed By: #### A 1C #### [facility] [address] [place] [address] Dr. Rosemary Ames LYMPH # 0.5 103/ul Critically low 1.2-3.8 [facility] Comment on above: Performed By: #### A 1C #### [facility] [address] [place] [address] Dr. Rosemary Ames Lymphocytes/100 WBC (Bld) 6.6 % Critically low 20.5-60.0 [facility] Comment on above: Performed By: #### A 1C #### [facility] [address] [place] [address] Dr. Rosemary Ames MANUAL DIFF REQ NO Normal [facility] Comment on above: Performed By: #### A 1C #### [facility] [address] [place] [address] Dr. Rosemary Ames MCH (RBC) [Entitic mass] 25.1 pg Critically low 26.7-34.0 [facility] Comment on above: Performed By: #### A 1C #### [facility] [address] [place] [address] Dr. Rosemary Ames MCHC (RBC) [Mass/Vol] 32.5 g/dL Normal 29.9-35.2 [facility] Comment on above: Performed By: #### A 1C #### [facility] [address] [place] [address] Dr. Rosemary Ames MCV (RBC) [Entitic vol] 77.2 fL Critically low 81.0-99.0 [facility] Comment on above: Performed By: #### A 1C #### [facility] [address] [place] [address] Dr. Rosemary Ames MONO # 0.7 103/ul Normal 0.3-0.8 [facility] Comment on above: Performed By: #### A 1C #### [facility] [address] [place] [address] Dr. Rosemary Ames Monocytes/100 WBC (Bld) 9.3 % Normal 1.7-12.0 [facility] Comment on above: Performed By: #### A 1C #### [facility] [address] [place] [address] Dr. Rosemary Ames NEUT # 6.2 103/ul Normal 1.4-6.5 [facility] Comment on above: Performed By: #### A 1C #### [facility] [address] [place] [address] Dr. Rosemary Ames Neutrophils/100 WBC (Bld) 82.9 % Critically high 43.0-75.0 [facility] Comment on above: Performed By: #### A 1C #### [facility] [address] [place] [address] Dr. Rosemary Ames Platelet mean volume (Bld) [Entitic vol] 9.8 fL Normal 9.5-13.5 [facility] Comment on above: Performed By: #### A 1C #### [facility] [address] [place] [address] Dr. Rosemary Ames PLT 246 103/ul Normal 150-450 [facility] Comment on above: Performed By: #### A 1C #### [facility] [address] [place] [address] Dr. Rosemary Ames RBC 5.14 106/ul Normal 4.20-5.40 [facility] Comment on above: Performed By: #### A 1C #### [facility] [address] [place] [address] Dr. Rosemary Ames WBC 7.4 103/ul Normal 4.0-11.0 [facility] Comment on above: Performed By: #### A 1C #### [facility] [address] [place] [address] [address] Rosemary Ames Covid-19 PCR ([facility])on SARS-CoV-2 (COVID-19) RNA EZEKIEL+probe Ql (Unsp spec) Not detected Normal NOT DETECTED [facility] Comment on above: Result Comment: When [...] for this test is supported by the [place] of Health and Human Service's declaration that [...] used). Performed By: #### A 1C #### [facility] [address] [place] [address] [address] Rosemary Ames D-DIMERon 03-13-2022 D-DIMER 0.26 mg/L FEU Normal <=0.59 [facility] Comment on above: Performed By: #### T 7, LIPID, TSH, CMADM, BNP, CMP #### [facility] [address] [place] [address] [address] Rosemary Ames D-DIMER COMMENTS SEE BELOW Normal [facility] Comment on above: Result [...] 7, LIPID, TSH, CMADM, BNP, CMP #### [facility] [address] [place] [address] Dr. Rosemary Ames ER URINE PROFILEon 3 Bilirubin Ql (U) Negative Normal NEGATIVE [facility] Comment on above: Performed By: #### E RUR #### [facility] [address] [place] [address] Dr. Rosemary Ames Clarity (U) CLEAR Normal CLEAR [facility] Comment on above: Performed By: #### E RUR #### [facility] [address] [place] [address] Dr. Rosemary Ames Color (U) LT. YELLOW Normal YELLOW [facility] Comment on above: Performed By: #### E RUR #### [facility] [address] [place] [address] Dr. Rosemary MARTIN A micrscopic examination will be performed if indicated. Normal [facility] Comment on above: Performed By: #### E RUR #### [facility] [address] [place] [address] Dr. Rosemary Ames Glucose Ql (U) Negative Normal NEGATIVE [facility] Comment on above: Performed By: #### E RUR #### [facility] [address] [place] [address] Dr. Rosemary Ames Hemoglobin Ql (U) Negative Normal NEGATIVE [facility] Comment on above: Performed By: #### E RUR #### [facility] [address] [place] [address] Dr. Rosemary Ames Ketones Ql (U) Negative Normal NEGATIVE [facility] Comment on above: Performed By: #### E RUR #### [facility] [address] [place] [address] Dr. Rosemary Ames LEUKOCYTES Negative Normal NEGATIVE [facility] Comment on above: Performed By: #### E RUR #### [facility] [address] [place] [address] Dr. Rosemary Ames Nitrite Ql (U) Negative Normal NEGATIVE [facility] [facility] Comment on above: Performed By: #### E RUR #### [facility] [address] [place] [address] Dr. Rosemary Ames pH (U) 6.0 [pH] Normal 5-9 [facility] Comment on above: Performed By: #### E RUR #### [facility] [address] [place] [address] Dr. Rosemary Ames SPEC GRAVITY 1.015 Normal 1.005-<=1.02 5 [facility] Comment on above: Performed By: #### E RUR #### [facility] [address] [place] [address] Dr. Rosemary Ames UA PROTEIN Negative Normal NEGATIVE/ TRACE [facility] Comment on above: Performed By: #### E RUR #### [facility] [address] [place] [address] Dr. Rosemary Ames UR MICRO IND NOT INDICATED Normal [facility] Comment on above: Performed By: #### E RUR #### [facility] [address] [place] [address] Dr. Rosemary Ames Urobilinogen Qn (U) 0.2 {Vincent'U}/dL Normal 0.2 - 1. 0 [facility] Comment on above: Performed By: #### E RUR #### [facility] [address] [place] [address] Dr. Rosemary Ames INFLUENZA A AND B [facility]on 03-[facility] Normal [facility] Comment on above: Result Comment: Nega tive for Flu A protein angiten. Infection due to Flu A cannot be ruled out. Flu A angiten in the sample may be below the detection limit of the test. Performed By: #### E RUR #### [facility] [address] [place] [address] Dr. Rosemary Ames INFLUBNEGH SEE BELOW Normal [facility] Comment on above: Result Comment: Nega tive for Flu B protein antigen. Infection due to Flu B cannot be ruled out. Flu B antigen in the sample may be below the detection limit of the test. Performed By: #### E RUR #### [facility] [address] [place] [address] Dr. Rosemary Ames INFLUENZA A AG Negative Normal NEGATIVE SEE COMMENT [facility] Comment on above: Performed By: #### E RUR #### [facility] [address] [place] [address] Dr. Rosemary Ames INFLUENZA B AG Negative Normal NEGATIVE SEE COMMENT [facility] Comment on above: Performed By: #### E RUR #### [facility] [address] [place] [address] Dr. Rosemary Ames LACTATE/LACTIC ACIDon 2022 Lactate [Moles/Vol] 2.0 mmol/L Critically high 0.4-1.9 [facility] Comment on above: Performed By: #### A 1C #### [facility] [address] [place] [address] Dr. Rosemary Ames LIPASEon 03-13-2022 Lipase [Catalytic activity/Vol] 79.0 U/L Normal 73.0-393.0 [facility] Comment on above: Performed By: #### A 1C #### [facility] [address] [place] [address] Dr. Rosemary Ames PREG HCG QUALon 03-13-2022 , QUAL Negative Normal NEGATIVE [facility] Comment on above: Performed By: #### A 1C #### [facility] [address] [place] [address] Dr. Rosemary Ames PROF 14(COMP METB)on 023 Albumin [Mass/Vol] 4.1 g/dL Normal 3.4-5.0 [facility] Comment on above: Performed By: #### A 1C #### [facility] [address] [place] [address] Dr. Rosemary Ames Albumin/Globulin [Mass ratio] 1.1 {ratio} Normal [facility] Comment on above: Performed By: #### A 1C #### [facility] [address] [place] [address] Dr. Rosemary Ames ALP [Catalytic activity/Vol] 77 U/L Normal 46-116 [facility] Comment on above: Performed By: #### A 1C #### [facility] [address] [address] [address] Rosemary Ames ALT [Catalytic activity/Vol] 149 U/L Critically high 14-59 [facility] Comment on above: Performed By: #### A 1C #### [facility] [address] [address] [address] Rosemary Ames Anion gap [Moles/Vol] 16.0 mmol/L Normal [facility] Comment on above: Performed By: #### A 1C #### [facility] [address] [address] [address] Rosemary Ames AST [Catalytic activity/Vol] 82 U/L Critically high 15-37 [facility] Comment on above: Performed By: #### A 1C #### [facility] [address] [place] [address] Dr. Rosemary Ames Bilirubin [Mass/Vol] 1.0 mg/dL Normal 0.2-1.0 [facility] Comment on above: Performed By: #### A 1C #### [facility] [address] [place] [address] Dr. Rosemary Ames Calcium [Mass/Vol] 9.1 mg/dL Normal 8.5-10.1 [facility] Comment on above: Performed By: #### A 1C #### [facility] [address] [place] [address] Dr. Rosemary Ames Chloride [Moles/Vol] 96 mmol/L Critically low 98-107 [facility] Comment on above: Performed By: #### A 1C #### [facility] [address] [address] [address] Rosemary Ames CO2 [Moles/Vol] 25.7 mmol/L Normal 21.0-32.0 [facility] Comment on above: Performed By: #### A 1C #### [facility] [address] [place] [address] Dr. Rosemary Ames Creatinine [Mass/Vol] 0.78 mg/dL Normal 0.55-1.02 [facility] Comment on above: Performed By: #### A 1C #### [facility] [address] [address] [address] Rosemary Ames EGFR-AF LUXEMBOURGER >60 Normal >=60 [facility] Comment on above: Performed By: #### A 1C #### [facility] [address] [place] [address] Dr. Rosemary Ames EGFR-NON AF LUXEMBOURGER >60 Normal >=60 [facility] Comment on above: Performed By: #### A 1C #### [facility] [address] [address] [address] Rosemary Ames Globulin (S) [Mass/Vol] 3.9 g/dL Normal [facility] Comment on above: Performed By: #### A 1C #### [facility] [address] [place] [address] Dr. Rosemary Ames Glucose [Mass/Vol] 190 mg/dL Critically high 74-106 [facility] Comment on above: Performed By: #### A 1C #### [facility] [address] [address] [address] Rosemary Ames Potassium [Moles/Vol] 3.7 mmol/L Normal 3.5-5.1 [facility] Comment on above: Performed By: #### A 1C #### [facility] [address] [place] [address] Dr. Rosemary Ames Protein [Mass/Vol] 8.0 g/dL Normal 6.4-8.2 [facility] Comment on above: Performed By: #### A 1C #### [facility] [address] [address] [address] Rosemary Ames Sodium [Moles/Vol] 134 mmol/L Critically low 136-145 Th [facility] Comment on above: Performed By: #### A 1C #### [facility] [address] [place] [address] Dr. Rosemary Ames Urea nitrogen [Mass/Vol] 9.0 mg/dL Normal 7.0-18.0 [facility] Comment on above: Performed By: #### A 1C #### [facility] [address] [place] [address] Dr. Rosemary Ames Urea nitrogen/Creatinine [Mass ratio] 11.5 mg/mg Normal [facility] Comment on above: Performed By: #### A 1C #### [facility] [address] [id number] Rosemary Ames TROPONIN, HIGH SENSITIVITYon 03-13-2022 HSTROP <4.0 Normal 4.0-51.3 [facility] Comment on above: [...] DM9 Performed By: #### A 1C #### [facility] [address] [place] [address] Dr. Rosemary Ames TSHon 03-13-2022 TSH 0.440 uIU/mL Normal 0.358-3.740 [facility] Comment on above: Performed By: #### A 1C #### [facility] [address] [place] [address] Dr. Rsoemary Ames XR CHEST 1 Von 03-13-2022 XR [...] TUAN LEWIS Date: 2022-03-13 18:59 Normal [facility] INSULINon 12-11-2021 Insulin 40.7 uIU/mL Critically high 2.6-24.9 [facility] Comment on above: Performed By: #### A 1C #### [facility] [address] [place] [address] [id number] [address] Rosemary Ames BNPon 12-10-2021 NT PRO BNP <11.1 Normal <=450.0 [facility] Comment on above: Performed By: #### T 7, LIPID, TSH, CMADM, BNP, CMP #### [facility] [address] [place] [address] Dr. Rosemary Ames CARDIAC RY ADMITon 022 CK [Catalytic activity/Vol] 80 U/L Normal 26-192 [facility] Comment on above: Performed By: #### T 7, LIPID, TSH, CMADM, BNP, CMP #### [facility] [address] [place] [address] Dr. Rosemary Ames CK.MB [Mass/Vol] 0.56 ng/mL Normal <=3.60 [facility] Comment on above: Performed By: #### T 7, LIPID, TSH, CMADM, BNP, CMP #### [facility] [address] [place] [address] Dr. Rosemary Ames HSTROP 5.3 pg/mL Normal 4.0-51.3 [facility] Comment on above: Result Comment: CUT- OFF POINTS HAVE BEEN ESTABLISHED BASED ON THE FOURTH UNIVERSAL DEFINITIONS OF MYOCARDIAL INFARCTION. THE UPPER REFERENCE LIMIT (URL) OF TROPONIN, DEFINED THE 99TH PERCENTILE OF cTnI DISTRIBUTION IN A REFERENCE POPULATION, HAS BEEN CONFIRMED THE DECISION THRESHOLD FOR OK DIAGNOSIS. Performed By: #### T 7, LIPID, TSH, CMADM, BNP, CMP #### [facility] [address] [place] [address] Dr. Rosemary Ames RADHA 26 ng/mL Normal 9-82 [facility] Comment on above: Performed By: #### T 7, LIPID, TSH, CMADM, BNP, CMP #### [facility] [address] [place] [address] Dr. Rosemary Ames CBC AUTO DIFFon 12-10-2021 BASO # 0.0 103/ul Normal 0.0-0.1 [facility] Comment on above: Performed By: #### E RUR #### [facility] [address] [place] [address] Dr. Rosemary Ames Basophils/100 WBC (Bld) 0.4 % Normal 0.2-2.0 [facility] Comment on above: Performed By: #### E RUR #### [facility] [address] [place] [address] Dr. Rosemary Ames EO # 0.1 103/ul Normal 0.0-0.7 [facility] Comment on above: Performed By: #### E RUR #### [facility] [address] [place] [address] Dr. Rosemary Ames Eosinophils/100 WBC (Bld) 1.0 % Normal 0.9-7.0 [facility] Comment on above: Performed By: #### E RUR #### [facility] [address] [place] [address] Dr. Rosemary Ames Erythrocyte distribution width (RBC) [Ratio] 13.7 % Normal 11.0-15.0 [facility] Comment on above: Performed By: #### E RUR #### [facility] [address] [place] [address] Dr. Rosemary Ames Hematocrit (Bld) [Volume fraction] 40.9 % Normal 36.0-48.0 [facility] Comment on above: Performed By: #### E RUR #### [facility] [address] [place] [address] Dr. Rosemary Ames Hemoglobin (Bld) [Mass/Vol] 13.0 g/dL Normal 12.0-16.0 [facility] Comment on above: Performed By: #### E RUR #### [facility] [address] [place] [address] Dr. Rosemary Ames IG # 0.03 10e3/ul Normal 0.00-0.03 [facility] Comment on above: Performed By: #### E RUR #### [facility] [address] [place] [address] Dr. Rosemary Ames IG % 0.4 % Normal 0.0-0.5 [facility] Comment on above: Performed By: #### E RUR #### [facility] [address] [place] [address] Dr. Rosemary Ames LYMPH # 2.4 103/ul Normal 1.2-3.8 [facility] Comment on above: Performed By: #### E RUR #### [facility] [address] [address] [address] Rosemary Ames Lymphocytes/100 WBC (Bld) 30.3 % Normal 20.5-60.0 [facility] Comment on above: Performed By: #### E RUR #### [facility] [address] [place] [address] Dr. Rosemary Ames MANUAL DIFF REQ NO Normal The [facility] Comment on above: Performed By: #### E RUR #### [facility] [address] [place] [address] Dr. Rosemary Ames MCH (RBC) [Entitic mass] 25.8 pg Critically low 26.7-34.0 [facility] Comment on above: Performed By: #### E RUR #### [facility] [address] [place] [address] Dr. Rosemary Ames MCHC (RBC) [Mass/Vol] 31.8 g/dL Normal 29.9-35.2 [facility] Comment on above: Performed By: #### E RUR #### [facility] [address] [place] [address] Dr. Rosemary Ames MCV (RBC) [Entitic vol] 81.2 fL Normal 81.0-99.0 [facility] Comment on above: Performed By: #### E RUR #### [facility] [address] [place] [address] Dr. Rosemary Ames MONO # 0.5 103/ul Normal 0.3-0.8 [facility] Comment on above: Performed By: #### E RUR #### [facility] [address] [place] [address] Dr. Rosemary Ames Monocytes/100 WBC (Bld) 6.1 % Normal 1.7-12.0 [facility] Comment on above: Performed By: #### E RUR #### [facility] [address] [place] [address] Dr. Rosemary Ames NEUT # 5.0 103/ul Normal 1.4-6.5 [facility] Comment on above: Performed By: #### E RUR #### [facility] [address] [address] [address] Rosemary Ames Neutrophils/100 WBC (Bld) 61.8 % Normal 43.0-75.0 [facility] Comment on above: Performed By: #### E RUR #### [facility] [address] [address] [address] Rosemary Ames Platelet mean volume (Bld) [Entitic vol] 9.9 fL Normal 9.5-13.5 [facility] Comment on above: Performed By: #### E RUR #### [facility] [address] [address] [address] Rosemary Ames PLT 284 103/ul Normal 150-450 [facility] Comment on above: Performed By: #### E RUR #### [facility] [address] [place] [address] Dr. Rosemary Ames RBC 5.04 106/ul Normal 4.20-5.40 [facility] Comment on above: Performed By: #### E RUR #### [facility] [address] [place] [address] Dr. Rosemary Ames WBC 8.0 103/ul Normal 4.0-11.0 [facility] Comment on above: Performed By: #### E RUR #### [facility] [address] [place] [address] Dr. Rosemary Ames FREE THYROXINE INDEX T7on FTI 2.31 Normal 1.30-4.50 [facility] Comment on above: Performed By: #### T 7, LIPID, TSH, CMADM, BNP, CMP #### [facility] [address] [place] [address] Dr. Rosemary Ames T3U 30.0 % Normal 30.0-39.0 [facility] Comment on above: Performed By: #### T 7, LIPID, TSH, CMADM, BNP, CMP #### [facility] [address] [place] [address] Dr. Rosemary Ames T4 [Mass/Vol] 7.70 ug/dL Normal 4.80-13.90 [facility] Comment on above: Performed By: #### T 7, LIPID, TSH, CMADM, BNP, CMP #### [facility] [address] [address] [address] Rosemary Ames GLYCOHEMOGLOBIN A1Con 2021 ADA RECOMMENDATION SEE BELOW Normal [facility] Comment on above: Result Comment: ADA RECOMMENDED LIMIT 4.0 - 6.0 ADA THERAPEUTIC TARGET < 7.0 ACTION SUGGESTED > 7.0 Performed By: #### A 1C #### [facility] [address] [address] [address] Rosemary Ames Glucose [Mass/Vol] 243 mg/dL Normal [facility] Comment on above: Performed By: #### A 1C #### [facility] [address] [place] [address] Dr. Rosemary Ames HbA1c (Bld) [Mass fraction] 10.1 % Critically high 4.5-6.2 [facility] Comment on above: Performed By: #### A 1C #### [facility] [address] [place] [address] Dr. Rosemary Ames IRONon 12-10-2021 Iron [Mass/Vol] 29.0 ug/dL Critically low 50.0-170.0 [facility] Comment on above: Performed By: #### A 1C #### [facility] [address] [place] [address] Dr. Rosemary Ames LIPID PROFILEon 12-10-2021 CHOL-HDL RATIO NORM SEE BELOW Normal [facility] Comment on above: Result Comment: 3.3 - 4.4 LOW RISK 4.4 - 7.1 AVERAGE RISK 7.1 - 11.0 MODERATE RISK >11.0 HIGH RISK Performed By: #### T 7, LIPID, TSH, CMADM, BNP, CMP #### [facility] [address] [place] [address] Dr. Rosemary Ames Cholesterol [Mass/Vol] 184 mg/dL Normal <=200 [facility] Comment on above: Performed By: #### T 7, LIPID, TSH, CMADM, BNP, CMP #### [facility] [address] [place] [address] Dr. Rosemary Ames Cholesterol in HDL [Mass/Vol] 44 mg/dL Normal 40-60 [facility] Comment on above: Performed By: #### T 7, LIPID, TSH, CMADM, BNP, CMP #### [facility] [address] [address] [address] Rosemary Ames Cholesterol in LDL [Mass/Vol] 94.6 mg/dL Normal [facility] Comment on above: Performed By: #### T 7, LIPID, TSH, CMADM, BNP, CMP #### [facility] [address] [address] [address] Rosemary Ames Cholesterol.total/Chol esterol in HDL [Mass ratio] 4.2 {ratio} Normal [facility] Comment on above: Performed By: #### T 7, LIPID, TSH, CMADM, BNP, CMP #### [facility] [address] [address] [address] Rosemary Ames HDL NORMAL > or = 60 mg/dl - LOW CARDIOVASCULAR RISK <40 mg/dl - HIGH CARDIOVASCULAR RISK Normal [facility] Comment on above: Performed By: #### T 7, LIPID, TSH, CMADM, BNP, CMP #### [facility] [address] [address] [address] Rosemary Ames LDL CALC NORMAL SEE BELOW Normal [facility] Comment on above: Result Comment: <100 mg/dl OPTIMAL 100 - 129 mg/dl NEAR OR ABOVE OPTIMAL 130 - 159 mg/dl BORDERLINE HIGH 160 - 189 mg/dl HIGH >190 mg/dl VERY HIGH Performed By: #### T 7, LIPID, TSH, CMADM, BNP, CMP #### [facility] [address] [address] [address] Rosemary Ames Triglyceride [Mass/Vol] 227 mg/dL Critically high <=150 [facility] Comment on above: Performed By: #### T 7, LIPID, TSH, CMADM, BNP, CMP #### [facility] [address] [address] [address] Rosemary Ames VLDL CALC 45.4 mg/dL Normal [facility] Comment on above: Performed By: #### T 7, LIPID, TSH, CMADM, BNP, CMP #### [facility] [address] [place] [address] Dr. Rosemary Ames PROF 14(COMP METB)on 022 Albumin [Mass/Vol] 4.1 g/dL Normal 3.4-5.0 [facility] Comment on above: Performed By: #### T 7, LIPID, TSH, CMADM, BNP, CMP #### [facility] [address] [place] [address] Dr. Rosemary Ames Albumin/Globulin [Mass ratio] 1.1 {ratio} Normal [facility] Comment on above: Performed By: #### T 7, LIPID, TSH, CMADM, BNP, CMP #### [facility] [address] [place] [address] Dr. Rosemary Ames ALP [Catalytic activity/Vol] 83 U/L Normal 46-116 [facility] Comment on above: Performed By: #### T 7, LIPID, TSH, CMADM, BNP, CMP #### [facility] [address] [place] [address] Dr. Rosemary Ames ALT [Catalytic activity/Vol] 166 U/L Critically high 14-59 [facility] Comment on above: Performed By: #### T 7, LIPID, TSH, CMADM, BNP, CMP #### [facility] [address] [place] [address] Dr. Rosemary Ames Anion gap [Moles/Vol] 13.9 mmol/L Normal [facility] Comment on above: Performed By: #### T 7, LIPID, TSH, CMADM, BNP, CMP #### [facility] [address] [place] [address] Dr. Rosemary Ames AST [Catalytic activity/Vol] 97 U/L Critically high 15-37 [facility] Comment on above: Performed By: #### T 7, LIPID, TSH, CMADM, BNP, CMP #### [facility] [address] [place] [address] Dr. Rosemary Ames Bilirubin [Mass/Vol] 0.7 mg/dL Normal 0.2-1.0 [facility] Comment on above: Performed By: #### T 7, LIPID, TSH, CMADM, BNP, CMP #### [facility] [address] [place] [address] Dr. Rosemary Ames Calcium [Mass/Vol] 9.2 mg/dL Normal 8.5-10.1 [facility] Comment on above: Performed By: #### T 7, LIPID, TSH, CMADM, BNP, CMP #### [facility] [address] [place] [address] Dr. Rosemary Ames Chloride [Moles/Vol] 101 mmol/L Normal 98-107 [facility] Comment on above: Performed By: #### T 7, LIPID, TSH, CMADM, BNP, CMP #### [facility] [address] [place] [address] Dr. Rosemary Ames CO2 [Moles/Vol] 27.5 mmol/L Normal 21.0-32.0 [facility] Comment on above: Performed By: #### T 7, LIPID, TSH, CMADM, BNP, CMP #### [facility] [address] [place] [address] Dr. Rosemary Ames Creatinine [Mass/Vol] 0.65 mg/dL Normal 0.55-1.02 [facility] Comment on above: Performed By: #### T 7, LIPID, TSH, CMADM, BNP, CMP #### [facility] [address] [place] [address] Dr. Rosemary Ames EGFR-AF LUXEMBOURGER >60 Normal >=60 [facility] Comment on above: Performed By: #### T 7, LIPID, TSH, CMADM, BNP, CMP #### [facility] [address] [place] [address] Dr. Rosemary Ames EGFR-NON AF LUXEMBOURGER >60 Normal >=60 [facility] Comment on above: Performed By: #### T 7, LIPID, TSH, CMADM, BNP, CMP #### [facility] [address] [place] [address] Dr. Rosemary Ames Globulin (S) [Mass/Vol] 3.8 g/dL Normal [facility] Comment on above: Performed By: #### T 7, LIPID, TSH, CMADM, BNP, CMP #### [facility] [address] [address] [address] Rosemary Ames Glucose [Mass/Vol] 299 mg/dL Critically high 74-106 [facility] Comment on above: Performed By: #### T 7, LIPID, TSH, CMADM, BNP, CMP #### [facility] [address] [place] [address] Dr. Rosemary Ames Potassium [Moles/Vol] 4.4 mmol/L Normal 3.5-5.1 [facility] Comment on above: Performed By: #### T 7, LIPID, TSH, CMADM, BNP, CMP #### [facility] [address] [place] [address] Dr. Rosemary Ames Protein [Mass/Vol] 7.9 g/dL Normal 6.4-8.2 [facility] Comment on above: Performed By: #### T 7, LIPID, TSH, CMADM, BNP, CMP #### [facility] [address] [place] [address] Dr. Rosemary Ames Sodium [Moles/Vol] 138 mmol/L Normal 136-145 [facility] Comment on above: Performed By: #### T 7, LIPID, TSH, CMADM, BNP, CMP #### [facility] [address] [place] [address] Dr. Rosemary Ames Urea nitrogen [Mass/Vol] 8.0 mg/dL Normal 7.0-18.0 [facility] Comment on above: Performed By: #### T 7, LIPID, TSH, CMADM, BNP, CMP #### [facility] [address] [place] [address] Dr. Rosemary Ames Urea nitrogen/Creatinine [Mass ratio] 12.3 mg/mg Normal [facility] [facility] Comment on above: Performed By: #### T 7, LIPID, TSH, CMADM, BNP, CMP #### [facility] [address] [place] [address] Dr. Rosemary Ames TSHon 12-10-2021 TSH 0.921 uIU/mL Normal 0.358-3.740 [facility] Comment on above: Performed By: #### T 7, LIPID, TSH, CMADM, BNP, CMP #### [facility] [address] [address] [address] Rosemary Ames [facility] 3D JESICA CA Don 11-29-2021 MG [facility]M DIAGNOSTIC 3D JESICA CAD Patient: TESS ASHLEY. Exam Date: 11/29/2021 : 1995 Gender:F Ordering : DR CHAMP LAUREANO . Admission #: [id number] Family : Order #: [id number] CLICK HERE TO VIEW EXAM RADIOLOGY REPORT [...] breast cancer at age 41. LOCATION: [facility] BREAST COMPOSITION: Heterogeneously dense,which may obscure [...] M.D. on 11/29/2021 at 09:59 Normal [facility] US BREAST RIGHT LIMITEDon US BREAST RIGHT LIMITED Patient: TESS ASHLEY. Exam Date: 11/29/2021 : 1995 Gender:F Ordering : DR CHAMP LAUREANO . Admission #: [id number] Family : Order #: [id number] CLICK HERE TO VIEW EXAM RADIOLOGY REPORT [...] breast cancer at age 41. LOCATION: [facility] BREAST COMPOSITION: Heterogeneously dense,which may obscure [...] M.D. on 11/29/2021 at 09:59 Normal [facility] MRI BRAIN WO CONon 2 MRI [...] SEBLE BIGGS Date: 2021-09-13 12:13 Normal [facility] Glucose (Bld) [Mass/Vol]on 0 08-27-2021 Glucose [Mass/Vol] 188 mg/dL [facility] Interpretation and review of laboratory results Abnormal [facility] HbA1c (Bld) [Mass fraction]o n 08-27-2021 Interpretation and review of laboratory results Abnormal [facility] POC Hemoglobin A1Con 022 HbA1c (Bld) [Mass fraction] 7.7 % Abnormal 4 - 6 % [facility] SEROLOGYOrdered By: Fabian echeverria on 08-24-2021 Beta hCG Ql Negative (08/24/21 11:29 PM) Normal [facility] Man Sero XR KNEE LT 4V or [...] by: SYLVESTER PRINGLE Date: 2021-08-15 16:18 Normal [facility] US KIDNEYS BLADDERon US KIDNEYS [...] MAY PILLAI Date: 2021-06-13 10:16 Normal [facility] Testosterone Free and Total by LC-MS/MSon 02-04-2021 Sex Hormone Binding Globulin 11 nmol/L Low 30-135 [facility] Comment on above: Result Comment: REFE RENCE INTERVAL: Sex Hormone Binding Globulin Access complete set of age- and/or gender-specific reference intervals for this test in the [facility] ([employer]). Testosterone, Free LC-MS/MS 9.1 pg/mL Critically high 0.8-7.4 [facility] Comment on above: Result Comment: [...] reference intervals for this test in the [facility] ([employer]). This test was developed and its performance characteristics determined by [facility]. It has not been cleared or approved by the US Food and Drug Administration. This test was performed in a CLIA certified laboratory and is intended for clinical purposes. Performed By: [facility] [address] [place] [id number] [address]amp Operator: Kiersten Jones MD Testosterone, LC-MS/MS 35 ng/dL Normal 9-55 [facility] Comment on above: Result Comment: Oscar rutherford Testosterone, Females 18 years and older Premenopausal 9-55 ng/dL Postmenopausal 5-32 ng/dL REFERENCE INTERVAL: Testosterone, LC-MS/MS Access complete set of age- and/or gender-specific reference intervals for this test in the [facility] ([employer]). This test was developed and its performance characteristics determined by [facility]. It has not been cleared or approved by the US Food and Drug Administration. This test was performed in a CLIA certified laboratory and is intended for clinical purposes. Cortisol Daljit 01-31-2021 Cortisol AM 11.0 ug/dL Normal 6.2-19.4 [facility] Comment on above: Performed By: #### C AKSHAT #### [facility] [address] [place] [id number] Vital Signs Date Time Vital Sign Value Performing Clinician Facility 08-22-2023 00:15-0400 Hourly Rounding Sg Infante [facility] Comment on above: Result Comment: Patient discharged off u nit in wheelchair. 08-22-2023 00:00-0400 Diastolic blood pressure 47 mm[Hg] Sg Infante [facility] 08-22-2023 00:00-0400 Heart rate 122 /min Sg Infante [facility] 08-22-2023 00:00-0400 Mean blood pressure 71 mm[Hg] Sg Infante [facility] 08-22-2023 00:00-0400 Systolic blood pressure 120 mm[Hg] Sg Infante [facility] 08-21-2023 23:45-0400 Blood Pressure Location Sg Infante [facility] 08-21-2023 23:45-0400 Diastolic blood pressure 52 mm[Hg] Sg Infante [facility] 08-21-2023 23:45-0400 Heart rate 119 /min Sg Infante [facility] 08-21-2023 23:45-0400 Mean blood pressure 78 mm[Hg] Sg Infante [facility] 08-21-2023 23:45-0400 Respiratory rate 16 /min Sg Infante [facility] 08-21-2023 23:45-0400 Systolic blood pressure 130 mm[Hg] Sg Infante [facility] 08-21-2023 23:36-0400 Hourly Rounding Sg Infante [facility] Comment on above: Result Comment: Patient sitting in bed. Call light within reach. 08-21-2023 23:30-0400 Body temperature 97.88 [degF] Sg Infante [facility] 08-21-2023 23:30-0400 Diastolic blood pressure 69 mm[Hg] Sg Infante [facility] 08-21-2023 23:30-0400 Heart rate 135 /min Sg Infante [facility] 08-21-2023 23:30-0400 Mean blood pressure 82 mm[Hg] Sg Infante [facility] 08-21-2023 23:30-0400 Respiratory rate 18 /min Sg Infante [facility] 08-21-2023 23:30-0400 Systolic blood pressure 107 mm[Hg] Sg Infante [facility] 08-21-2023 22:09-0400 Hourly Rounding Sg Infante [facility] Comment on above: Result Comment: Labetalol given for BP. 08-21-2023 21:30-0400 Body temperature 98.42 [degF] Sg Infante [facility] 08-21-2023 20:20-0400 Diastolic blood pressure 91 mm[Hg] Tyler Melina [facility] 08-21-2023 20:20-0400 Heart rate 138 /min Tyler Melina [facility] 08-21-2023 20:20-0400 Mean blood pressure 110 mm[Hg] Tyler Melina [facility] 08-21-2023 20:20-0400 Respiratory rate 20 /min Tyler Melina [facility] 08-21-2023 20:20-0400 SaO2% (BldA) [Mass fraction] 97 % Tyler Melina [facility] 08-21-2023 20:20-0400 Systolic blood pressure 149 mm[Hg] Tyler Melina [facility] 08-21-2023 19:43-0400 Diastolic blood pressure 86 mm[Hg] Tyler Melina [facility] 08-21-2023 19:43-0400 Heart rate 141 /min Tyler Melina [facility] 08-21-2023 19:43-0400 Mean blood pressure 110 mm[Hg] Tyler Melina [facility] 08-21-2023 19:43-0400 Respiratory rate 18 /min Tyler Melina [facility] 08-21-2023 19:43-0400 SaO2% (BldA) [Mass fraction] 97 % Tyler Melina [facility] 08-21-2023 19:43-0400 Systolic blood pressure 158 mm[Hg] Tyler Melina [facility] 08-21-2023 19:22-0400 Body temperature 98.6 [degF] Tyler Melina [facility] 08-21-2023 19:22-0400 Diastolic blood pressure 103 mm[Hg] Tyler Melina [facility] 08-21-2023 19:22-0400 Heart rate 131 /min Tyler Melina [facility] 08-21-2023 19:22-0400 Mean blood pressure 118 mm[Hg] Tyler Melina [facility] 08-21-2023 19:22-0400 Respiratory rate 16 /min Tyler Melina [facility] 08-21-2023 19:22-0400 SaO2% (BldA) [Mass fraction] 97 % Tyler Melina [facility] 08-21-2023 19:22-0400 Systolic blood pressure 148 mm[Hg] Tyler Melina [facility] 08-21-2023 19:07-0400 Body temperature 99.14 [degF] Tyler Summers [facility] 08-21-2023 19:07-0400 Heart rate 140 /min Tyler Summers [facility] 08-21-2023 19:07-0400 Respiratory rate 22 /min Tyler Summers [facility] 05-07-2023 15:08-0500 Body height 152.4 cm Opal Heath JEWEL BEARING FACER-BUDGET ACCOUNTANT Work Phone: [facility] 05-07-2023 15:08-0500 Body mass index (BMI) [Ratio] 48.43 kg/m2 Opal Levigan JEWEL BEARING FACER-BUDGET ACCOUNTANT Work Phone: [facility] 05-07-2023 15:08-0500 Body weight 112.49 kg Opal Heath JEWEL BEARING FACER-BUDGET ACCOUNTANT Work Phone: [facility] 05-07-2023 15:08-0500 Diastolic blood pressure 64 mm[Hg] Opal Heath JEWEL BEARING FACER-BUDGET ACCOUNTANT Work Phone: [facility] 05-07-2023 15:08-0500 Heart rate 111 /min Opal Heath JEWEL BEARING FACER-BUDGET ACCOUNTANT Work Phone: [facility] 05-07-2023 15:08-0500 Systolic blood pressure 136 mm[Hg] Opal Heath JEWEL BEARING FACER-BUDGET ACCOUNTANT Work Phone: [facility] 05-07-2023 14:16-0500 Body height 152.4 cm [facility] 05-07-2023 14:16-0500 Body mass index (BMI) [Ratio] 48.63 kg/m2 [facility] 05-07-2023 14:16-0500 Body weight 112.95 kg [facility] 04-17-2023 10:25-0500 Body mass index (BMI) [Ratio] 47.85 kg/m2 Mario Zoraida DO Work Phone: [facility] 04-17-2023 10:25-0500 Body weight 111.13 kg Mario Zoraida DO Work Phone: [facility] 04-17-2023 10:25-0500 Diastolic blood pressure 76 mm[Hg] Mario Zoraida DO Work Phone: [facility] 04-17-2023 10:25-0500 Systolic blood pressure 122 mm[Hg] Mario Zoraida DO Work Phone: [facility] 08-27-2021 11:09-0400 Body height 152.4 cm Gregorio Floyd MD Work Phone: [facility] 08-27-2021 11:09-0400 Body mass index (BMI) [Ratio] 46.68 kg/m2 Gregorio Floyd MD Work Phone: [facility] 08-27-2021 11:09-0400 Body weight 108.41 kg Gregorio Floyd MD Work Phone: [facility] 08-27-2021 11:09-0400 Diastolic blood pressure 86 mm[Hg] Gregorio Floyd MD Work Phone: [facility] 08-27-2021 11:09-0400 Heart rate 97 /min Gregorio Floyd MD Work Phone: [facility] 08-27-2021 11:09-0400 Systolic blood pressure 125 mm[Hg] Gregorio Floyd MD Work Phone: [facility] 08-25-2021 14:00-0400 Diastolic blood pressure 81 mm[Hg] Tyler Melina [facility] 08-25-2021 14:00-0400 Heart rate 85 /min Tyler Melina [facility] 08-25-2021 14:00-0400 Mean blood pressure 100 mm[Hg] Tyler Meilna [facility] 08-25-2021 14:00-0400 Respiratory rate 16 /min Tyler Melina [facility] 08-25-2021 14:00-0400 SaO2% (BldA) [Mass fraction] 98 % Tyler Melina [facility] 08-25-2021 14:00-0400 Systolic blood pressure 138 mm[Hg] Tyler Melina [facility] 08-25-2021 01:00-0400 Diastolic blood pressure 85 mm[Hg] Tyler Melina [facility] 08-25-2021 01:00-0400 Heart rate 87 /min Tyler Melina [facility] 08-25-2021 01:00-0400 Respiratory rate 16 /min Tyler Melina [facility] 08-25-2021 01:00-0400 SaO2% (BldA) [Mass fraction] 98 % Tyler Melina [facility] 08-25-2021 01:00-0400 Systolic blood pressure 140 mm[Hg] Tyler Melina [facility] 08-25-2021 00:00-0400 Diastolic blood pressure 89 mm[Hg] Tyler Melina [facility] 08-25-2021 00:00-0400 Heart rate 95 /min Tyler Melina [facility] 08-25-2021 00:00-0400 SaO2% (BldA) [Mass fraction] 97 % Tyler Melina [facility] 08-25-2021 00:00-0400 Systolic blood pressure 149 mm[Hg] Tyler Melina [facility] 08-24-2021 22:50-0400 Body temperature 100.22 [degF] Tyler Summers [facility] Encounters Encounter Date Encounter Type Care Provider Facility Start: 09-10-2023 End: 09-10-2023 ambulatory MARIO ZORAIDA Not Available Start: 08-27-2023 End: 08-27-2023 ambulatory MARIO ZORAIDA Not Available Start: 08-26-2023 End: 08-26-2023 ambulatory KRISH TERRY Not Available Start: 08-21-2023 End: 08-22-2023 ambulatory Sg Infante [facility] Start: 08-21-2023 End: 08-22-2023 OB Triage Sg Infante [facility] Start: 08-21-2023 End: 08-21-2023 Emergency department patient visit Tyler Summers [facility] Start: 08-20-2023 End: 08-20-2023 ambulatory SG ROBERTSON [facility] Start: 08-13-2023 End: 08-13-2023 ambulatory ANNA [facility] Start: 08-11-2023 End: 08-11-2023 ambulatory MARIO ZORAIDA Not Available Start: 08-05-2023 End: 08-05-2023 ambulatory MARIO ZORAIDA Not Available Start: 07-29-2023 End: 07-29-2023 ambulatory [facility] Start: 07-28-2023 End: 07-28-2023 ambulatory MARIO ZORAIDA Not Available Start: 07-23-2023 End: 07-23-2023 ambulatory [facility] Start: 07-22-2023 End: 07-22-2023 [facility] Start: 07-14-2023 End: 07-14-2023 ambulatory MARIO ZORAIDA Not Available Start: 07-10-2023 End: 07-10-2023 ambulatory LEANA BURR [facility] Start: 06-30-2023 End: 06-30-2023 ambulatory MARIO MCLAINO Not Available Start: 06-30-2023 End: 06-30-2023 ambulatory LEANA ESSENTIA HEALTHEARLENE [facility] Start: 06-23-2023 End: 06-23-2023 ambulatory LEANA BURR [facility] Start: 06-23-2023 End: 06-23-2023 ambulatory LEANA [facility] Start: 06-11-2023 End: 06-11-2023 ambulatory MARIO Ricardo ZORAIDA [facility] Start: 06-10-2023 End: 06-10-2023 ambulatory MARIO ZORAIDA Not Available Start: 06-09-2023 Orders Only Leana franco MD Work Phone: [facility] Start: 06-04-2023 Orders Only Leana franco MD Work Phone: [facility] Comment on above: Type 2 diabetes naz itus in , second trimester (Primary Dx) Start: 05-29-2023 End: 05-29-2023 ambulatory MARIO ZORAIDA Not Available Start: 05-29-2023 End: 05-29-2023 Office outpatient visit 25 minutes Leana Burr MD Work Phone: [facility] Comment on above: Type 2 diabetes naz itus in , second trimester (Primary Dx) Start: 05-29-2023 End: 05-29-2023 ambulatory LEANA [facility] Start: 05-20-2023 End: 05-20-2023 Orders Only Mary Guidry APRN-CAROLAM Work Phone: [facility] Comment on above: Type 2 diabetes naz itus in , second trimester (Primary Dx) Start: 05-20-2023 End: 05-20-2023 Office outpatient new 45 minutes Leana Burr MD Work Phone: [facility] Comment on above: Type 2 diabetes naz itus in , second trimester (Primary Dx) Start: 05-13-2023 Telephone encounter Joann pastrana RN Work Phone: [facility] Start: 05-12-2023 Telephone encounter Joann pastrana RN Work Phone: [facility] Start: 05-12-2023 End: 05-12-2023 ambulatory SHWETHA RAUL Not Available Start: 05-08-2023 Orders Only Queta Zazueta [facility]- [facility] at [facility] Comment on above: Type 2 diabetes naz itus in , second trimester (Primary Dx) Start: 05-07-2023 End: 05-07-2023 Office outpatient visit 25 minutes Opal Heath APRN-BUDGET ACCOUNTANT Work Phone: [facility] Comment on above: Type 2 diabetes naz itus in , second trimester (Primary Dx); Insulin pump in place; HTN in , chronic Start: 05-07-2023 End: 05-07-[address] Work Phone: [facility] Comment on above: Type 2 diabetes naz itus in , second trimester (Primary Dx); Pre-existing type 2 diabetes mellitus during in first trimester Start: 04-23-2023 Chart abstracting Opal falk JEWEL BEARING FACER-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 Work Phone: [facility] Start: 04-23-2023 Telephone encounter Danyell Ortiz RN Id ternal- [facility] Start: 04-17-2023 End: 04-17-2023 Office outpatient visit 15 minutes Mario Conway DO Work Phone: [facility] Comment on above: Bleeding in early pr egnancy; Follow-up exam Start: 04-17-2023 End: 04-17-2023 ambulatory MARIO ZORAIDA Not Available Start: 04-14-2023 End: 04-14-2023 ambulatory MARIO MCLAINO Not Available Start: 03-14-2023 End: 03-14-2023 ambulatory MARIO RAPPZIO Not Available Start: 05-31-2022 End: 05-31-2022 ambulatory [...] Start: 08-27-2021 End: 08-27-2021 ambulatory CHAMP LAUREANO [facility] Start: 08-27-2021 End: 08-27-2021 Office outpatient new 60 minutes Champ Laureano MD Work Phone: [facility] Comment on above: Type 2 diabetes naz itus with hyperglycemia, unspecified whether fpc insulin use (HCC) (Primary Dx); Thyroid disorder; Hair loss Start: 08-24-2021 End: 08-25-2021 Emergency department patient visit Tyler Summers [facility] Start: 08-15-2021 End: 08-15-2021 ambulatory GREGORY FAN . Facility:[facility] Start: 06-13-2021 End: 06-14-[address] CHAMP LAUREANO . Facility: Start: 05-04-2021 Transcribe Orders Champ Laureano MD Work Phone: [facility] Comment on above: Thyroid disorder (Pr imary Dx); Hair loss Procedures Date Procedure Procedure Detail Performing Clinician Start: 05-12-2023 Microscopic observat ion [Identifier] in Cervix by Cyto stain Leana Burr MD Work Phone: Start: 04-01-2023 Antibody screen Bebe Heath JEWEL BEARING FACER-BUDGET ACCOUNTANT Work Phone: Start: 04-01-2023 Bacteria identified in [...] neoplasm of cervix [facility] Start: 05-28-2024 [facility] Start: 05-07-2024 Adult BMI Screening Adult [facility] Start: 05-07-2024 [facility] Start: 05-07-2024 End: 05-07-2024 US MFM with or without consult US MFM with or without consult Imaging Routine Type 2 diabetes mellitus in , second trimester Expected: 05/07/2024 (Approximate), Expires: 05/07/2024 [email or web address] Work Phone: Comment on above: Expected: 05/07/2024 (Approximate), Expires: 05/07/2024 Start: 11-09-2023 Influenza vaccination Influenza Vacc ine [facility] Start: 06-11-2023 End: 06-11-2023 Patient encounter procedure 06/11/2023 1:00 PM EDT Appointment [facility] [address] [place] [id number] [facility] Start: 06-10-2023 End: 06-10-2023 Patient encounter procedure 06/10/2023 3:00 PM EDT Office Visit [facility] [address] [facility] [address] [place] [id number] Leana Burr MD [address] [facility] [address] [place] [address] [facility] Start: 06-04-2023 End: 06-04-2023 Patient encounter procedure 06/04/2023 10:45 AM EDT Office Visit [facility] [address] [facility] [address] [place] [phone] Leana Burr MD [address] [place] [address] [facility] Start: 05-29-2023 End: 05-29-2023 Patient encounter procedure 05/29/2023 10:45 AM EDT Office Visit [facility] [address] [place] [phone] Leana Burr MD [address] [place] [address] [facility] Start: 05-20-2023 End: 05-20-2023 Telemedicine consultation with patient 05/20/2023 8:00 AM EDT Telemedicine [facility] [address] [place] [address] Leana Burr MD [address] [place] [address] [facility] Start: 05-12-2023 End: 05-12-2023 Patient encounter procedure 05/12/2023 8:30 AM EST Routine [facility] [address] [place] [phone] Shwetha Walton PA [address] [place] [address] [facility] Start: 05-07-2023 End: 05-07-2023 Patient encounter procedure 05/07/2023 3:00 PM EST Office Visit [facility] [address] [place] [address] Opal Heath, GALLO-BUDGET ACCOUNTANT [address] [place] [address] [facility] Start: 05-07-2023 End: 05-07-2023 ambulatory 05/07/2023 1:00 PM EST Support Visit [facility] [address] [place] [address] Shital Chen, IZAIAH [address] [place] [address] [facility] Start: 11-08-2022 Influenza vaccination Influenza Vacc ine [facility] Start: 11-27-2021 End: 11-27-2021 Patient encounter procedure 11/27/2021 Office Visit Endocrinology Gregorio Floyd MD [address] [place] [address] [facility] Start: 11-27-2021 Hemoglobin A1c measurement A1C [facility] Start: 11-08-2021 Influenza vaccination Sequenti al Influenza Vaccine (Season Ended) [facility] Start: 06-25-2021 End: 06-25-2021 Patient encounter procedure 06/25/2021 Office Visit Endocrinology Gregorio Floyd MD [address] [place] [address] [facility] Start: 11-08-2020 Influenza vaccination Sequenti al Influenza Vaccine (#1) [facility] Start: 11-14-2015 Screening for malign ant [...] Hepatitis C screening Hepatitis C Sc reening [facility] Start: 2009 HIV screening HIV Screening [facility] Start: 2006 Depression screening using PHQ-9 (Patient Health Questionnaire 9) score [facility] Start: 2006 Tobacco Screening Tobacco Screening [facility] Start: 2005 DTaP,Tdap and Td Vaccines (5 - Tdap) DTaP,Tdap and Td Vaccines (5 - Tdap) [facility] Start: 2004 Diabetic foot examination Foot Exam [facility] Start: 2004 Microalbumin measurement, urine, quantitative Urine Microalbumin [facility] Start: 2004 Ophthalmic examinati on and evaluation Ophthalmology Exam [facility] Start: 2000 Pneumococcal Vaccine : Ped or At-Risk (1 - PCV) Pneumococcal Vaccine: Ped or At-Risk (1 - PCV) [facility] Start: 11-14-1999 COVID-19 Vaccine (#1) COVID-19 Vacci ne (#1) [facility] Start: 11-14-1999 COVID-19 Vaccine (1) COVID-19 Vaccin e (1) [facility] Start: 1997 History and physical examination, annual for health maintenance Wellness Visit [facility] Start: 1994 Glaucoma screening Diabetic Op hthalmology Exam [facility] Start: 1994 Screening for malign ant neoplasm of cervix Pap Smear [facility] Start: 1994 Tetanus vaccination Tetanus: Every 1 0yrs [facility] Start: 1994 Urine screening for protein Urine Microalbumin [facility] End: 08-27-2022 C peptide [Mass/volume] in Serum or Plasma C-peptide Lab Routine Type 2 diabetes mellitus with hyperglycemia, unspecified whether fpc insulin use (HCC) 1 Occurrences starting 08/27/2021 until 08/27/2022 [facility] Comment on above: 1 Occurrences starti [...] starting 05/20/2023 until 05/19/2024 [facility] Work Phone: Comment on above: 1 Occurrences starti ng 05/20/2023 until 05/19/2024 End: 08-27-2022 Glucose [Mass/volume] in Serum or Plasma Glucose Lab Routine Type 2 diabetes mellitus with hyperglycemia, unspecified whether fpc insulin use (HCC) 1 Occurrences starting 08/27/2021 until 08/27/2022 [facility] Comment on above: 1 Occurrences starti [...] 2 diabetes mellitus with hyperglycemia, unspecified whether terminal superintendent insulin use (HCC) Ordered: 08/27/2021 [facility] Comment on above: Ordered: 08/27/2021 End: [...] (HCC) 1 Occurrences starting 08/27/2021 until 08/27/2022 [facility] Comment on above: 1 Occurrences starti ng 08/27/2021 until 08/27/2022 End: 08-27-2022 Lipid 1996 panel - Serum or Plasma Lipid Panel Lab Routine Type 2 diabetes mellitus with hyperglycemia, unspecified whether fpc insulin use (HCC) 1 Occurrences starting 08/27/2021 until 08/27/2022 [facility] Comment on above: 1 Occurrences starti ng 08/27/2021 until 08/27/2022 Microalbumin measurement, urine, quantitative Microalbumin/Creatinine Ratio, UR Random Lab Routine Type 2 diabetes mellitus with hyperglycemia, unspecified whether fpc insulin use (HCC) Ordered: 08/27/2021 [facility] Work Phone: Comment on above: Ordered: 08/27/2021 Payers Date Payer Category Payer Unknown [id number] 2019 Medicaid [id number] 1994 Unknown [id number] 2.16. 840.1.955746.3.579.2.903 1994 Unknown [id number] 2.16.84 0.1.312502.3.579.2.593 1994 Unknown [id number] 2.16.84 0.1.456393.3.579.2.593 1994 Unknown [id number] 2.16.84 0.1.480328.3.579.2.593 1994 Unknown [id number] 2.16.84 0.1.546493.3.579.2.593 1994 Unknown [id number] 2.16.84 0.1.233730.3.579.2.593 1994 Unknown [id number] 2.16.84 0.1.606996.3.579.2.593 1994 Unknown [id number] 2.16.84 0.1.585390.3.579.2.593 1994 Unknown [id number] 2.16.84 0.1.330037.3.579.2.593 1994 Unknown [id number] 2.16.84 0.1.846259.3.579.2.593 1994 Unknown [id number] 2.16.84 0.1.781432.3.579.2.593 1994 Unknown [id number] 2.16.84 0.1.020447.3.579.2.593 1994 Unknown [id number] 2.16.84 0.1.711710.3.579.2.593 1994 Unknown [id number] 2.16.84 0.1.722843.3.579.2.593 1994 Unknown [id number] 2.16.8 40.1.383283.3.579.2.1286 1994 Unknown [id number] 2.16.8 40.1.056879.3.579.2.1286 1994 Unknown [id number] 2.16.8 40.1.847288.3.579.2.1286 1994 Unknown [id number] 2.16.8 40.1.158827.3.579.2.1285 1994 Unknown [id number] 2.16.8 40.1.288720.3.579.2.1285 1994 Unknown [id number] 2.16.8 40.1.487888.3.579.2.1285 1994 Unknown [id number] 2.16.8 40.1.629366.3.579.2.1285 1994 Unknown [id number] 2.16.8 40.1.729286.3.579.2.1285 1994 Unknown [id number] 2.16.8 40.1.428312.3.579.2.1285 1994 Unknown [id number] 2.16.8 40.1.749252.3.579.2.1285 1994 Unknown [id number] 2.16.8 40.1.730414.3.579.2.1285 1994 Unknown [id number] 2.16.8 40.1.256636.3.579.2.1285 1994 Unknown [id number] 2.16.8 40.1.498725.3.579.2.1285 1994 Unknown [id number] 2.16.8 40.1.829637.3.579.2.1285 1994 Unknown [id number] 2.16.8 40.1.819021.3.579.2.1285 1994 Unknown [id number] 2.16.8 40.1.487911.3.579.2.1285 1994 Unknown [id number] 2.16.8 40.1.150174.3.579.2. 1994 Unknown [id number] 2.16.8 40.1.986257.3.579.2.7 1994 Unknown [id number] 2.16.8 40.1.647929.3.579.2.727 1994 Unknown [id number] 2.16.8 40.1.528427.3.579.2.727 1994 Unknown [id number] 2.16.8 40.1.075766.3.579.2. 1994 Unknown [id number] 2.16.8 40.1.348008.3.579.2.72 1994 Unknown [id number] 2.16.84 0.1.262247.3.579.2.1258 1994 Unknown [id number] 2.16.84 0.1.219334.3.579.2.1258 1994 Unknown [id number] 2.16.84 0.1.940035.3.579.2.1258 1994 Unknown [id number] 2.16.84 0.1.402070.3.579.2.1258 1994 Unknown [id number] 2.16.84 0.1.545995.3.579.2.1258 1994 Unknown [id number] 2.16.84 0.1.332134.3.579.2.1258 1994 Unknown [id number] 2.16.84 0.1.202612.3.579.2.1258 1994 Unknown [id number] 2.16.84 0.1.878232.3.579.2.1258 1994 Unknown [id number] 2.16.84 0.1.977822.3.579.2.1258 1994 Unknown [id number] 2.16.84 0.1.490259.3.579.2.1258 1994 Unknown [id number] 2.16.84 0.1.159566.3.579.2.1258 1994 Unknown [id number] 2.16.84 0.1.596860.3.579.2.1258 1994 Unknown [id number] 2.16.84 0.1.443124.3.579.2.1258 1994 Unknown [id number] 2.16.84 0.1.610265.3.579.2.1259 1994 Unknown [id number] 2.16.840 .1.047438.3.579.2.1259 1959 Medicaid [id number] 1959 Unknown [id number] 1959 Unknown [id number] 1959 Unknown [id number] Social History Date Type Detail Facility Start: 04-23-2023 Tobacco smoking status PRIS Tobacco smoking consumption unknown [facility] Start: 1995 Sex Assigned At Not on file [facility] Start: 08-24-2021 Tobacco smoking status Never [facility] Start: 03-24-2023 End: 05-07-2023 Sex Assigned At Female [facility] Start: 08-17-2021 End: 08-27-2021 Exposure to SARS-CoV-2 (event) Not sure [facility] Start: 03-24-2023 End: 05-07-2023 Tobacco smoking status PRIS Never smoked tobacco [facility] Start: 04-17-2023 Alcohol intake Lifetime non-d jorge (finding) [facility] Start: 03-24-2023 End: 05-07-2023 History of Social function [facility] Start: 02-04-2023 [facility] Start: 1995 Sex Assigned At Female [facility] Start: 02-27-2023 Gender identity Identifies as female gender (finding) [facility] Start: 05-07-2023 Tobacco use and exposure Smokeless tobacco non-user [facility] Start: 05-07-2023 End: 05-29-2023 Alcohol intake Ex-drinker (finding) [facility] [employer] Procedure Code Equipment Code Equipment Origin al Text Equipment Identifier Dates 1 each by Other route if needed [id number] Start: 03-11-2023 Use a new needle with each injection [id number] Start: 05-07-2023 Functional Status Date Assessment Result Facility 08-21-2023 Functional Status N/A [facility] 08-21-2023 Functional Status N/A [facility] 08-24-2021 Functional Status N/A [facility] Clinical Notes 08-24-2021 to 08-22-2023 Note Date & Type Note Facility 08-22-2023 Hospital Discharg e instructions Patient Education 08/21/2023 23:40:58 Vaginal Bleeding During , Third Trimester, Kjue-hc-Xjzj Vaginal Bleeding During , Third Trimester A [...] you with your normal activities. Medicines Take dvug-oan-xbimhiv and prescription medicines only as told by [...] provider. Document Revised: 11/16/2020 Document Reviewed: 11/16/2020 [employer] Patient Education 2022 [employer]. 08/21/2023 23:40:58 Hypertension During , Gtlg-rl-Rlib Hypertension During Hypertension is also called high [...] are best for you. General instructions Take mvli-ywn-ohntqjd and prescription medicines only as told by [...] provider. Document Revised: 11/16/2020 Document Reviewed: 11/16/2020 [employer] Patient Education 2022 [employer] 08/21/2023 23:40:58 Form - Movement Counts [...] Up Care 08/21/2023 21:25:46 With:Mario CONWAY Address: [address] , [place] [address]- Business (1) When:08/22/2023 Comments:Call Dr if fever>100.5 F, heavy bleedingCall for severe abdominal painCall physician for heavy vaginal bleedingCall physician if symptoms worsenReturn for contractions closer, longer, harderReturn for decreased movementReturn if ruptured membranes or vaginal bleeding [facility] 08-22-2023 Note The following Patien t Education Materials have been given to the patient: EducationMaterial [facility] 08-21-2023 Hospital Discharg e instructions Patient Education [...] your health care provider. General instructions Take efkx-wub-xsbkaya and prescription medicines only as told by [...] provider. Document Revised: 05/25/2020 Document Reviewed: 05/25/2020 [employer] Patient Education 2022 [employer]. Follow Up Care 08/21/2023 19:05:36 With:Roosevelt Maldonado Address: [address] [place] [address]- Business (1) When:08/24/2023 21:04:34 With:Champ Laureano Address: [address] [place] [address] [place] [address]- Business (1) When:Within 3 Day(s) [facility] 08-21-2023 Evaluation + Plan note Extrac [...] Views Right XR Wrist 3+ Views Left [facility]03-21-2024 History of Present illness Narrative* Leana Burr MD - 05/29/2023 10:45 AM EDT [facility]- Diabetes Visit TELEMEDICINE VISIT: This is an audiovisual visit. This is done to assess the patient and to determine the best medical care. The patient was located at home in [place] and the provider was located at the medical office in [place]. The patient states they are not driving [...] of Delivery: 10/28/23. She is referred from [facility] who is managing along with us. She has had her diabetes education with [facility]. Please see media for full pump [...] History of Diabetic Retinopathy: unknown. Last seen [facility] unknown History of peripheral neuropathy: none Medications [...] History: Diagnosis Date Anxiety Depression Diabetes mellitus ([facility]) Disease of thyroid gland Hypertension History [...] order of 22% in those who have ufnazhzqacB7J 8.5 and higher. Patient aware that maternal [...] breakfast: try low sugar protein shakes or costa rican yogurt if appetite lower inthe AM. Complications/ [...] to foot injury. : I agree with MF recommendations for care. NSTs twice weekly with weekly WEI starting at 32 weeks. Growth US every 4 weeks starting at 28 weeks. Tentative delivery by 39 weeks, but will defer to MFM. Follow up in 1 week. Following at least once per trimester with MFM as well. MD Nicholas [facility] documented in this encounterSamaritan HospitalACS [facility] HealthNkzfkw02-29-1400 History of Present illness Narrative* Leana Burr [...] of Delivery: 10/28/23. She is referred from [facility] who is managing along with us. She has had her diabetes education with [facility]. Please see media for full pump [...] History of Diabetic Retinopathy: unknown. Last seen [facility] unknown History of peripheral neuropathy: none Medications [...] 10/28/23. She has had diabetes education with [facility]. We reviewed the following We have discussed the issue of insulin-dependent diabetes mellitus and the effect of in detail. There is an elevated risk of malformation of the order of 22% in those who have wtiojwutwjU2T 8.5 and higher. Patient aware that maternal [...] considerably as her current automated basal is hxsdzsthu71 units but her basal rates were recently [...] breakfast: try low sugar protein shakes or costa rican yogurt if appetite lower inthe AM. Complications/ [...] with MFM as well. LEANA BURR MD [facility]24 Miscellaneous Notes* Telephone Encounter - Joann Walsh [...] and denied any questions. documented in this encounterChildren[facility]03-05-2024 Telephone encounter Note* Telephone Encounter - Joann [...] meals. Verbalized understanding and denied any questions. [facility] Work Phone: 1(327) 449-704103-04-2024 Miscellaneous Notes* Telephone Encounter - Joann Walsh [...] week 05/20/23. Informed would call back after [facility] provider reviews. documented [facility]Day[facility] Landis+Gyr [id number] Telephone encounter Note* Telephone Encounter - Joann Walsh RN - 05/12/2023 4:36 PM EST Summary: [facility] Insulin Pump Questions Called and spoke [...] week 05/20/23. Informed would call back after [facility] provider reviews. [facility] [employer] Work Phone: 1(159) 740-281302-28-2024 History of Present illness Narrative* Queta Zazueta [...] results Have you been seen here at [facility] in a previous ? N/a Recent ER visits or hospitalizations? No Bring blood sugar log or meter with you today? (Please bring them with you for every visit at [facility]) yes Traveled outside the country in [...] no complaints. She is being followed at [facility] due to Type 2 DM. [...] TSH 1.05 04/01/2023 No results found for: [id number] No results found for: CREATININE , BUN [...] by e-mail to: or by fax to: [phone] 40 Minutes spent azap-xt-hytr; more than 50% of time spent counseling and/or coordinating care withadditional time for record review and communication to referring provider. SABINA Urbie 05/07/23 1556 documented in this encounterChildren's [facility] for Rehabilitation02-28-2024 History of Present illness Narrative* Danyell Ortiz [...] care for you: OB Provider Family Doctor [employer] Executive Name: Sebastian Name: No primary care provider on file. Name:[facility] City: City: City: Last time seen: [...] demonstration Is there anything about your culture, orthodoxy, or personal beliefs we need to know about to care for you: Other none Primary Language spoken: Lebanese [22] Primary Language for learning: Lebanese Are you currently in a relationship where you are physically hurt, threatened or made to fee afraid? [] Yes [x] No Estate Planning Director needed? [] Yes [x] No Marital status/Living [...] If yes, where: On thge following scale, cher-ae heights the number, which describes your current level [...] to face timewas 60 min. . * Shitla Chen RD - 05/07/2023 1:00 PM EST Nutritional Assessment Form Date: 05/07/2023 KULDIP: Estimated Date of Delivery: 10/28/23 EGA: 15w1d Past Medical History: Diagnosis Date Diabetes mellitus ([facility]) Disease of thyroid gland Hypertension OB History [...] Educational Level high school Family issues none Cultural/ethnic/presybeterian influences none Exercise approved by MD? Current Exercise program walking Who prepares the meal pt Who purchase food at your home? pt Equipment use for cooking/food storage has all Food Assistance(Ex.WIC, Food [place]) has apt Dining out Yes 1 time per month Appetite/Appetite changes increased Weight History stable Do you have cats at home? Feeding Plans Breast Feeding If you have cats, who cleans the litter box? Cravings/Aversions/Pica none currently Nutrition Assessment Worksheet: Week/Weekend Food Recall Breakfast Luxora Or cereal Or eggs Snack Lunch Grilled [...] Management Support Plan, patient chose to use [employer] to help manage her diabetes. Patient understands that we will follow up weekly with a phone call to review progress. Face to face time 40 minutes. documented in this encounterChildren's [facility] for Rehabilitation02-28-2024 Instructions* Patient Instructions* Danyell Ortiz RN - [...] 4 HOURS WHILE AWAKE documented in this encounterChildren's Hospital for Rehabilitation02-14-2024 Miscellaneous Notes* Telephone Encounter - Danyell Ortiz RN - 04/23/2023 12:23 PM EST Called pt due toher not coming to her appt today and she stated she had left a message that she needed to tammi due to not having transportation to her appt this morning. Her name given back to the schedulers to call and resched her. documented in this encounterChildren's Hospital for Rehabilitation02-14-2024 Telephone encounter Note* Telephone Encounter - Danyell Ortiz RN - 04/23/2023 12:23 PM EST Called pt due toher not coming to her appt today and she stated she had left a message that she needed to tammi due to not having transportation to her appt this morning. Her name given back to the schedulers to call and resched her. [place]02-08-2024 History of Present illness Narrative* Mario MclainDO juliocesar - 04/17/2023 10:30 AM EST Reason for [...] Hand fracture, right Type 2 diabetes mellitus (CMS/[facility]) Family History Problem Relation Name Age [...] nursing note reviewed. Exam conducted with a production planner present. Vitals: Estimated body mass index is [...] of: Mario Conway DO documented in this encounterChildren's [facility]cy [id number] Instructions* Patient Instructions* Gregorio Floyd MD - [...] hold levothyroxine for now. documented in this [id number] History of Present illness Narrative* Gregorio Floyd [...] ALKPHOS, BILITOT No results found for: TSH, B2CFREW, THYROIDAB No results found for: PTH, CALCIUM, JACQUES, PHOS Lab Results Component Value Date HGBA1C 7.7 (A) 08/27/2021 No results found for: LDLCALC, CHOL, HDL, TRIG, CHOLHDL No results found for: MICALBCREAT, [id number] No results found for: CPEPTIDE Assessment and [...] acanthosis nigricans indicate T2DM, but will get CWD91-Xa and c-peptide/glucose given the young age of [...] Due for foot exam no 08/2021; to staff counselor on foot care next visit CV [...] Gregorio Floyd MD Endocrinology documented in this [id number] Hospital Discharge instructions Patient Education 08/25/2021 02:09:26 [...] Ask your health care provider for a dtrk-dx-nybh plan for gradually returning to activities. Ask [...] your friends, family, a trusted colleague, and industrial relations worker about your injury, symptoms, and restrictions. Have them watch for any new or worsening problems. General instructions Take mrcd-sis-yejrefd and prescription medicines only as told by [...] 02/24/2006 Document Revised: 03/24/2019 Document Reviewed: 03/19/2019 [employer] Patient Education 2020 [employer] 08/25/2021 02:09:26 Cervical Sprain Cervical Sprain [...] provider or physical therapist. General instructions Take jrow-rbo-llsmzde and prescription medicines only as told by [...] 12/22/2007 Document Revised: 06/16/2019 Document Reviewed: 10/23/2016 [employer] Patient Education 2020 [employer]. Follow Up Care 08/24/2021 22:42:21 With:Champ Laureano Address: [address] [place], [place] [address] Business (1) When:Within 3 Day(s) [facility]06-17-2022 Evaluation + Plan noteExtracted from: Title:ED [...] w/o Contrast CT Spine Cervical w/o Contrast [facility]* Diagnosis Thyroid disorder- Primary Unspecified disorder of thyroid Hair loss Unspecified alopecia [facility]* Diagnosis Type 2 diabetes mellitus with hyperglycemia, unspecified whether terminal superintendent insulin use (HCC)- Primary Thyroid disorder Unspecified disorder of thyroid Hair loss Unspecified alopecia [facility] Diagnosis Bleeding in early Unspecified hemorrhage in early , unspecified as to episode of care Follow-up exam Unspecified follow-up examination documented [facility] this encounter [facility]* Diagnosis Type 2 diabetes mellitus in , second trimester- Primary Insulin pump in place Insulin pump status HTN in , chronic [facility] Diagnosis Type 2 diabetes mellitus in , second trimester- Primary Pre-existing type 2 diabetes mellitus during in first trimester [facility]* Diagnosis Type 2 diabetes mellitus in , second trimester- Primary [facility]* Diagnosis Type 2 diabetes mellitus in , second trimester- Primary [facility]* Diagnosis Type 2 diabetes mellitus in , second trimester- Primary [facility]* Diagnosis Type 2 diabetes mellitus in , second trimester- Primary documented in this encounter [facility] Narrative No data available for this section [facility] HospitalInstructionsNot on filedocumented in this encounter [facility] SystemInstructionsNot on filedocumented in this encounter [facility] SystemInstructionsNot on filedocumented in this encounter [facility] SystemInstructionsNot on filedocumented in this encounter [facility] SystemInstructionsNot on filedocumented in this encounter [facility] SystemInstructionsNot on filedocumented in this encounter [facility] SystemProgress note No data available for this section [facility] HospitalReason for referral (narrative)* Consultation (Routine) - Pending Review Specialty Diagnoses / Procedures Referred By Juan Antonio t Referred To Contact Maternal and Medicine Diagnoses Type 2 diabetes mellitus in , second trimester Insulin pump in place Opal Heath APRN-BRO [address] [place] [address] Leana Burr MD [address], [address] [address] Referral ID Status Reason Start Date Expiration Date Visits Requested Visits Authorized [id number] Pending Review Specialty Services Required 05/07/2023 05/06/2024 1 1 [facility] (narrative)* Consultation (Routine) - Pending Review Specialty Diagnoses / Procedures Referred By Contac t Referred To Contact Endocrinology Diagnoses Type 2 diabetes mellitus in , second trimester Mary Guidry [facility] [address], [address] [place] [address] Leana Burr MD [facility] [address], [address] [address] Referral ID Status Reason Start Date Expiration Date Visits Requested Visits Authorized [id number] Pending Review Specialty Services Required 05/20/2023 05/19/2024 1 1 [facility] Narrative* Consultation (Routine) - Pending Review Specialty Diagnoses / Procedures Referred By Juan Antonio t Referred To Contact Endocrinology Diagnoses Type 2 diabetes mellitus in , second trimester Mary Guidry [facility] [address], [address] [place] [address] Leana Burr MD [facility] [address], [address] [address] Referral ID Status Reason Start Date Expiration Date Visits Requested Visits Authorized [id number] Pending Review Specialty Services Required 05/20/2023 05/19/2024 [...] FoundDocuments on File Type Date Recorded 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 Advance Directives and Livin g Will 05/02/2021 12:00 AM Reason for Referral Specialty Diagnoses / Procedures Referred By Contac t Referred To Contact Endocrinology Diagnoses Thyroid disorder Hair loss Champ Laureano MD [address] [facility] [place] [address] [place] [address] Gregorio Floyd MD [address] [place] [id number] Referral ID Status Reason Start Date Expiration Date Visits Requested Visits Authorized [id number] Authorized Specialty Services Required/Pat ient's Best Interest 05/04/2021 05/04/2022 1 1 Specialty Diagnoses / Procedures Referred By Contac t Referred To Contact Maternal and Medicine Diagnoses Type 2 diabetes mellitus in , second trimester Procedures [facility] with or without consult Opal Heath, GALLO-BUDGET ACCOUNTANT [address] [place] [address] [facility] Maternal Med [address] [place] [address] Referral ID Status Reason Start Date Expiration Date V isits Requested Visits Authorized [id number] Pending Review 05/08/2023 05/07/2024 1 1 Additional Source Comments INFORMATION SOURCE (unrecogn ized section and content) DATE CREATED AUTHOR 02/06/2021 [facility] DATE CREATED AUTHOR AUTHOR'S ORGANIZ ATION 08/27/2021 [facility] DATE CREATED AUTHOR AUTHOR'S ORGANIZ ATION 06/02/2022 [facility] DATE CREATED AUTHOR AUTHOR'S ORGANIZ ATION 08/14/2023 [facility] DATE CREATED AUTHOR AUTHOR'S ORGANIZ ATION 08/21/2023 [facility] DATE CREATED AUTHOR AUTHOR'S ORGANIZ ATION 08/23/2023 [facility] DATE CREATED AUTHOR AUTHOR'S ORGANIZ ATION 09/02/2023 [facility] DATE CREATED AUTHOR AUTHOR'S ORGANIZ ATION 09/11/2023 [facility] EPIC Care Teams (unrecognized sec tion and content) [employer] Machine [employer] Relationship Specialty Start Date End Date Champ Laureano MD [address] [place], [place] [phone] PCP - General Family Medicine 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 Relationship Specialty Start Date End Date Champ Laureano MD [address] [place], [place] [phone] PCP - General Family Medicine 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 Relationship Specialty Start Date End Date Champ Laureano MD [address] [place] [address] PCP - General 03/13/23 Reason for Visit (unrecogniz ed section and content) Reason Comments Thyroid Problem Specialty Diagnoses / Procedures Referred By Contac t Referred To Contact Endocrinology Diagnoses Thyroid disorder Hair loss Champ Laureano MD [address] [place] [address] Gregorio Floyd MD [address] [place] [id number] Referral ID Status Reason Start Date Expiration Date V isits Requested Visits Authorized [id number] Closed Specialty Services Required/Deanna ent's Best Interest 05/04/2021 05/04/2022 1 1 Reason Comments ER Follow-up Reason Comments t2dm Reason Comments Diabetes Specialty Diagnoses / Procedures Referred By Contac t Referred To Contact Maternal and Medicine Diagnoses Pre-existing type 2 diabetes mellitus during in first trimester Mario Conway R, DO [address] , [place] [address] [facility] [place] [facility] [address] [place] [address] Referral ID Status Reason Start Date Expiration Date Visits Requested Visits Authorized [id number] Pending Review Specialty Services Required 04/15/2023 04/14/2024 [...] BE BASED ON THE PRIMARY CLINICAL RECORDS. [facility]. provides no warranty or guarantee of the accuracy or completeness of information in this document.
--- NOTE | 2023-09-23 11:02 | US_ITS ---
[address] [address] Patient Name: TESS CALVERT MRN: [facility]:[id number] date: 1995 Sex: F Assigned Patient Location: [facility] Current Patient Location: Accession/Order Number: [id number] Exam Date: 09/23/2023 11:30 Report Date: 09/23/2023 12:18 At the request of: PORSHA MOTA Procedure: US OB BPP w non-stress EXAMINATION: US OB BPP w non-stress HISTORY: Decrease movement O36.8120 COMPARISON: No relevant comparison available. TECHNIQUE: Ultrasound biophysical profile was performed in the radiology department. FINDINGS: BREATHING MOVEMENTS: 2 GROSS BODY MOVEMENTS: 2 TONE: 2 QUALITATIVE AMNIOTIC FLUID VOLUME: 2 PRESENTATION: CEPHALIC HEART RATE: 151.69 bpm AMNIOTIC FLUID VOLUME: 25.8 cm GESTATIONAL AGE: 35 weeks 0 days US/US OB BPP w non-stress IMPRESSION: Total biophysical profile score: 8 Polyhydramnios Electronically authenticated by: MAY PILLAI Date: 09/23/2023 12:18
[2023-09-23 11:09] VITALS: BP 124/61; PULSE 104
== END 2023-09-23 12:00 | disposition home or self-care (01) ==
LOC: US 07:11 → FBC 10:48
PROVIDERS: PCP Family Medicine; Visit Provider Obstetrics & Gynecology
DX: O36.8120 Decreased fetal movements, second trimester, not applicable or unspecified (principal); Z3A.35 35 weeks gestation of pregnancy; O40.3XX0 Polyhydramnios, third trimester, not applicable or unspecified
CPT/HCPCS: 76818

== ENCOUNTER 2023-09-25 12:35 | Observation (INO) | payer OTHER, SELFPAY ==
[2023-09-25] VITALS (11 sets, daily range): BP systolic 142–170; BP diastolic 74–82; PULSE 100–115; TEMP 36.5–36.8; O2SAT 98
[2023-09-25 14:01] LABS: Basophils Percent Auto 0.2 % (0.2-2.0); Eosinophils Absolute Auto 0.1 10^3/uL (0.0-0.7); Eosinophils Percent Auto 0.5 % (0.9-7.0); Hematocrit 30.9 % (36.0-48.0); Hemoglobin 9.8 g/dL (12.0-16.0); Immature Granulocytes Abs Auto 0.15 10^3/uL (0.00-0.03); Immature Granulocytes Pct Auto 1.3 % (0.0-0.5); Lymphocytes Absolute Auto 1.8 10^3/uL (1.2-3.8); Mean Corpuscular HGB Conc 31.7 g/dL (29.9-35.2); Mean Corpuscular Hemoglobin 25.4 pg (26.7-34.0); Mean Corpuscular Volume 80.1 fL (81.0-99.0); Mean Platelet Volume 11.6 fL (9.5-13.5); Monocytes Absolute Auto 0.8 10^3/uL (0.3-0.8); Monocytes Percent Auto 6.6 % (1.7-12.0); Neutrophils Absolute Auto 8.7 10^3/uL (1.4-6.5); Neutrophils Percent Auto 75.4 % (43.0-75.0); Platelet Count 246 10^3/uL (150-450); Red Blood Count 3.86 10^6/uL (4.20-5.40); Red Cell Distribution Width 14.1 % (11.0-15.0); White Blood Count 11.5 10^3/uL (4.0-11.0)
[2023-09-25 14:18] LABS: Alanine Aminotransferase 18 U/L (14-59); Aspartate Amino Transferase 18 U/L (15-37); Estimated GFR (African America >60 (>=60); Estimated GFR (Non-African Ame >60 (>=60); Uric Acid 5.2 mg/dL (2.6-6.0)
[2023-09-25] MEDS: MAGNESIUM SULFATE IV (14:18)
[2023-09-25] MEDS: 0.9 % SODIUM CHLORIDE 1,000 ML 75 ML IV (14:18)
[2023-09-25] MEDS: SODIUM CHLORIDE 0.9% IV (14:18)
[2023-09-25 14:24] LABS: Partial Thromboplastin Time 22.6 sec (22.3-36.2); Prothrombin Time 9.4 sec (9.0-11.6)
[2023-09-25 14:31] LABS: INR <0.93
[2023-09-25 14:32] LABS: Fibrinogen 513 mg/dL (200-400)
[2023-09-25] MEDS: MAGNESIUM SULFATE IN WATER 40 GM/1,000 ML IV.SOLN IV (14:40)
--- NOTE | 2023-09-25 15:12 | PM.OBHP ---
OB - H&P: HPI History of Present Illness Chief complaint: HIGH BLOOD PRESSURE : 1 Para: 0 Gestational age based on last menstrual period: 35 2/7 Comments: 27 yo at 35 2/7wks, chronic htn, morbid obesity, insulin dependant dm requiring insulin pump, presents with elevated bp and headache unrelieved with tylenol, pt denies n.v.d.f.c pt denies lof vb ctxns, denies visual changes and epigastric pain History of Present Dating criteria: LMP confirmed by 1st trimester US care: good care Ultrasounds: normal 1st trimester US and normal mid trimester US Review of Systems ROS Status of ROS: 10 or more systems reviewed and unremarkable except as noted in history and below PFSH PFSH Social History Smoking status: Never smoker Meds Home Medications and Allergies Home Medications ?Medication ?Instructions ?Recorded ?Confirmed ?Type desvenlafaxine succinate 100 mg 100 mg PO Q24H 04/16/23 09/09/23 History tablet,extended release 24 hr insulin lispro 100 unit/mL 1 sliding scale dose subcut Q6H 04/16/23 09/09/23 History subcutaneous solution (Humalog PRN hyperglycemia U-100 Insulin) lamotrigine 100 mg tablet 100 mg PO Q12H 04/16/23 09/09/23 History pantoprazole 40 mg tablet,delayed 40 mg PO DAILY 04/16/23 09/09/23 History release labetalol 200 mg tablet 300 mg PO TID 07/30/23 09/09/23 History aspirin 81 mg capsule 81 mg PO DAILY 08/01/23 09/09/23 History insulin glargine 100 unit/mL 32 unit subcut QPM 08/01/23 09/09/23 History subcutaneous solution (Lantus U-100 Insulin) vit no.95-ferrous 1 tab PO DAILY 09/09/23 09/09/23 History fumarate 28 mg-folic acid 800 mcg tablet ( Multivitamins) Allergies Allergy/AdvReac Type Severity Reaction Status Date / Time No Known Drug Allergies Allergy Verified 09/06/23 10:52 Exam Constitutional Vital Signs, click to edit/add: Last Vital Signs Pulse 113 H 09/25/23 14:37 BP 170/76 H 09/25/23 14:37 Documenting provider has reviewed patient's vital signs: yes Common normals: no apparent distress Respiratory Common normals: normal respiratory effort and clear to auscultation bilaterally Cardio Common normals: regular rate and regular rhythm GI Common normals: Normal to inspection, nondistended, normoactive bowel sounds present Extremity Common normals: no calf tenderness Results Labs Labs: Short CBC 09/25/23 Range/Units 13:53 WBC 11.5 H (4.0-11.0) 10^3/uL Hgb 9.8 L (12.0-16.0) g/dL Hct 30.9 L (36.0-48.0) % Plt Count 246 (150-450) 10^3/uL BMP 09/25/23 13:53 BUN 9.0 Creatinine 0.55 Liver Function 09/25/23 Range/Units 13:53 AST 18 (15-37) U/L ALT 18 (14-59) U/L OB - A/P Assessment and Plan (1) Chronic hypertension: (2) Intrauterine : (3) Type 2 diabetes mellitus: (4) Pre-eclampsia added to pre-existing hypertension: Assessment and Plan: discussed with juliana, will tr[facility] pt to [facility], magnesium 6g bolus then 2g/hr, labs reviewed, tylenol given, not a candidate for [facility]
[2023-09-25] MEDS: LABETALOL HCL 100 MG TABLET 300 MG PO (16:26)
--- OUTSIDE RECORDS SUMMARY | 2023-09-26 07:35 | XMS_ITS | CCD ---
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 [Mass/Vol] 190 mg/dL Critically high 74-106 [facility] Comment on above: Performed By: #### A 1C #### [facility] [address] [address] [address] Rosemary Ames Potassium [Moles/Vol] 3.7 mmol/L Normal 3.5-5.[address] [facility] Comment on above: Performed By: #### A 1C #### [facility] [address] [address] [address] Rosemary Ames Protein [Mass/Vol] 8.0 g/dL Normal 6.4-8.2 [facility] Comment on above: Performed By: #### A 1C #### [facility] [address] [address] [address] Rosemary Ames Sodium [Moles/Vol] 134 mmol/L Critically low 136-145 [facility] Comment on above: Performed By: #### A 1C #### [facility] [address] [address] [address] Rosemary Ames Urea nitrogen [Mass/Vol] 9.0 mg/dL Normal 7.0-18.[address] [facility] Comment on above: Performed By: #### A 1C #### [facility] [address] [address] [address] Rosemary Ames Urea nitrogen/Creatinine [Mass ratio] 11.5 mg/mg Normal [facility] Comment on above: Performed By: #### A 1C #### [facility] [address] [address] [address] Rosemary Ames TROPONIN, HIGH SENSITIVITYon 03-13-2022 HSTROP <4.0 Normal 4.0-51.3 [facility] Comment on above: Result Comment: CUT- OFF POINTS HAVE BEEN ESTABLISHED BASED ON THE FOURTH UNIVERSAL DEFINITIONS OF MYOCARDIAL INFARCTION. THE UPPER REFERENCE LIMIT (URL) OF TROPONIN, DEFINED THE 99TH PERCENTILE OF cTnI DISTRIBUTION IN A REFERENCE POPULATION, HAS BEEN CONFIRMED THE DECISION THRESHOLD FOR UT DIAGNOSIS. Previously reported as: 3.9 On 03/13/2022 18:24 By DM9 Performed By: #### A 1C #### [facility] [address] [address] [address] Rosemary Ames TSHon 03-13-2022 TSH 0.440 uIU/mL Normal 0.358-3.740 [facility] Comment on above: Performed By: #### A 1C #### [facility] [address] [address] [address] Rosemary Ames XR CHEST 1 Von [...] TUAN LEWIS Date: 2022-03-13 18:59 Normal [facility] INSULINon 12-11-2021 Insulin 40.7 uIU/mL Critically high 2.6-24.9 [facility] Comment on above: Performed By: #### A 1C #### [facility] [address] [address] [address] Rosemary Ames BNPon 12-10-2021 NT PRO BNP <11.1 Normal <=450.[address] [facility] Comment on above: Performed By: #### T 7, LIPID, TSH, CMADM, BNP, CMP #### [facility] [address] [place] [address] Dr. Rosemary Ames CARDIAC RY ADMITon 022 CK [Catalytic activity/Vol] 80 U/L Normal 26-192 [facility] Comment on above: Performed By: #### T 7, LIPID, TSH, CMADM, BNP, CMP #### [facility] [address] [place] [address] Dr. Rosemary Ames CK.MB [Mass/Vol] 0.56 ng/mL Normal <=3.60 [facility] Comment on above: Performed By: #### T 7, LIPID, TSH, CMADM, BNP, CMP #### [facility] [address] [place] [address] Dr. Rosemary Ames HSTROP 5.3 pg/mL Normal 4.0-51.3 [facility] Comment on above: Result Comment: CUT- OFF POINTS HAVE BEEN ESTABLISHED BASED ON THE FOURTH UNIVERSAL DEFINITIONS OF MYOCARDIAL INFARCTION. THE UPPER REFERENCE LIMIT (URL) OF TROPONIN, DEFINED THE 99TH PERCENTILE OF cTnI DISTRIBUTION IN A REFERENCE POPULATION, HAS BEEN CONFIRMED THE DECISION THRESHOLD FOR UT DIAGNOSIS. Performed By: #### T 7, LIPID, TSH, CMADM, BNP, CMP #### [facility] [address] [place] [address] Dr. Rosemary Ames RADHA 26 ng/mL Normal 9-82 [facility] Comment on above: Performed By: #### T 7, LIPID, TSH, CMADM, BNP, CMP #### [facility] [address] [place] [address] Dr. Rosemary Ames CBC AUTO DIFFon 12-10-2021 BASO # 0.0 103/ul Normal 0.0-0.1 [facility] Comment on above: Performed By: #### E RUR #### [facility] [address] [place] [address] Dr. Rosemary Ames Basophils/100 WBC (Bld) 0.4 % Normal 0.2-2.[address] [facility] Comment on above: Performed By: #### E RUR #### [facility] [address] [place] [address] Dr. Rosemary Ames EO # 0.1 103/ul Normal 0.0-0.7 [facility] Comment on above: Performed By: #### E RUR #### [facility] [address] [place] [address] Dr. Rosemary Ames Eosinophils/100 WBC (Bld) 1.0 % Normal 0.9-7.[address] [facility] Comment on above: Performed By: #### E RUR #### [facility] [address] [place] [address] Dr. Rosemary Ames Erythrocyte distribution width (RBC) [Ratio] 13.7 % Normal 11.0-15.[address] [facility] Comment on above: Performed By: #### E RUR #### [facility] [address] [place] [address] Dr. Rosemary Ames Hematocrit (Bld) [Volume fraction] 40.9 % Normal 36.0-48.[address] [facility] Comment on above: Performed By: #### E RUR #### [facility] [address] [place] [address] Dr. Rosemary Ames Hemoglobin (Bld) [Mass/Vol] 13.0 g/dL Normal 12.0-16.[address] [facility] Comment on above: Performed By: #### E RUR #### [facility] [address] [place] [address] Dr. Rosemary Ames IG # 0.03 10e3/ul Normal 0.00-0.[address] [facility] Comment on above: Performed By: #### E RUR #### [facility] [address] [place] [address] Dr. Rosemary Ames IG % 0.4 % Normal 0.0-0.5 [facility] Comment on above: Performed By: #### E RUR #### [facility] [address] [place] [address] Dr. Rosemary Ames LYMPH # 2.4 103/ul Normal 1.2-3.8 [facility] Comment on above: Performed By: #### E RUR #### [facility] [address] [place] [address] Dr. Roesmary Ames Lymphocytes/100 WBC (Bld) 30.3 % Normal 20.5-60.[address] [facility] Comment on above: Performed By: #### E RUR #### [facility] [address] [place] [address] Dr. Rosemary Ames MANUAL DIFF REQ NO Normal [facility] Comment on above: Performed By: #### E RUR #### [facility] [address] [place] [address] Dr. Rosemary Ames MCH (RBC) [Entitic mass] 25.8 pg Critically low 26.7-34.[address] [facility] Comment on above: Performed By: #### E RUR #### [facility] [address] [place] [address] Dr. Rosemary Ames MCHC (RBC) [Mass/Vol] 31.8 g/dL Normal 29.9-35.[address] [facility] Comment on above: Performed By: #### E RUR #### [facility] [address] [place] [address] Dr. Rosemary Ames MCV (RBC) [Entitic vol] 81.2 fL Normal 81.0-99.[address] [facility] Comment on above: Performed By: #### E RUR #### [facility] [address] [place] [address] Dr. Rosemary Ames MONO # 0.5 103/ul Normal 0.3-0.[address] [facility] Comment on above: Performed By: #### E RUR #### [facility] [address] [place] [address] Dr. Rosemary Ames Monocytes/100 WBC (Bld) 6.1 % Normal 1.7-12.0 [facility] Comment on above: Performed By: #### E RUR #### [facility] [address] [place] [address] Dr. Rosemary Ames NEUT # 5.0 103/ul Normal 1.4-6.5 [facility] Comment on above: Performed By: #### E RUR #### [facility] [address] [place] [address] Dr. Rosemary Ames Neutrophils/100 WBC (Bld) 61.8 % Normal 43.0-75.[address] [facility] Comment on above: Performed By: #### E RUR #### [facility] [address] [place] [address] Dr. Rosemary Ames Platelet mean volume (Bld) [Entitic vol] 9.9 fL Normal 9.5-13.[address] [facility] Comment on above: Performed By: #### E RUR #### [facility] [address] [place] [address] Dr. Rosemary Ames PLT 284 103/ul Normal 150-450 [facility] Comment on above: Performed By: #### E RUR #### [facility] [address] [place] [address] Dr. Rosemary Ames RBC 5.04 106/ul Normal 4.20-5.[address] [facility] Comment on above: Performed By: #### E RUR #### [facility] [address] [place] [address] Dr. Rosemary Ames WBC 8.0 103/ul Normal 4.0-11.0 [facility] Comment on above: Performed By: #### E RUR #### [facility] [address] [place] [address] Dr. Rosemary Ames FREE THYROXINE INDEX T7on FTI 2.31 Normal 1.30-4.[address] [facility] Comment on above: Performed By: #### T 7, LIPID, TSH, CMADM, BNP, CMP #### [facility] [address] [place] [address] Dr. Rosemary Ames T3U 30.0 % Normal 30.0-39.0 [facility] Comment on above: Performed By: #### T 7, LIPID, TSH, CMADM, BNP, CMP #### [facility] [address] [place] [address] Dr. Rosemary Ames T4 [Mass/Vol] 7.70 ug/dL Normal 4.80-13.90 [facility] Comment on above: Performed By: #### T 7, LIPID, TSH, CMADM, BNP, CMP #### [facility] [address] [address] [address] Rosemary Ames GLYCOHEMOGLOBIN A1Con 2021 ADA RECOMMENDATION SEE BELOW Normal [facility] Comment on above: Result Comment: ADA RECOMMENDED LIMIT 4.0 - 6.0 ADA THERAPEUTIC TARGET < 7.0 ACTION SUGGESTED > 7.0 Performed By: #### A 1C #### [facility] [address] [address] [address] Rosemary Ames Glucose [Mass/Vol] 243 mg/dL Normal [facility] Comment on above: Performed By: #### A 1C #### [facility] [address] [address] [address] Rosemary Ames HbA1c (Bld) [Mass fraction] 10.1 % Critically high 4.5-6.[address] [facility] Comment on above: Performed By: #### A 1C #### [facility] [address] [place] [address] Dr. Rosemary Ames IRONon 12-10-2021 Iron [Mass/Vol] 29.0 ug/dL Critically low 50.0-170.0 [facility] Comment on above: Performed By: #### A 1C #### [facility] [address] [place] [address] Dr. Rosemary Ames LIPID PROFILEon 12-10-2021 CHOL-HDL RATIO NORM SEE BELOW Normal [facility] Comment on above: Result Comment: 3.3 - 4.4 LOW RISK 4.4 - 7.1 AVERAGE RISK 7.1 - 11.0 MODERATE RISK >11.0 HIGH RISK Performed By: #### T 7, LIPID, TSH, CMADM, BNP, CMP #### [facility] [address] [address] [address] Rosemary Ames Cholesterol [Mass/Vol] 184 mg/dL Normal <=200 [facility] Comment on above: Performed By: #### T 7, LIPID, TSH, CMADM, BNP, CMP #### [facility] [address] [address] [address] Rosemary Ames Cholesterol in HDL [Mass/Vol] 44 mg/dL Normal 40-[address] [facility] Comment on above: Performed By: #### T 7, LIPID, TSH, CMADM, BNP, CMP #### [facility] [address] [address] [address] Rosemary Ames Cholesterol in LDL [Mass/Vol] 94.6 mg/dL Normal [facility] Comment on above: Performed By: #### T 7, LIPID, TSH, CMADM, BNP, CMP #### [facility] [address] [address] [address] Rosemary Ames Cholesterol.total/Chol esterol in HDL [Mass ratio] 4.2 {ratio} Normal [facility] Comment on above: Performed By: #### T 7, LIPID, TSH, CMADM, BNP, CMP #### [facility] [address] [place] [address] Dr. Rosemary Ames HDL NORMAL > or = 60 mg/dl - LOW CARDIOVASCULAR RISK <40 mg/dl - HIGH CARDIOVASCULAR RISK Normal [facility] Comment on above: Performed By: #### T 7, LIPID, TSH, CMADM, BNP, CMP #### [facility] [address] [place] [address] Dr. Rosemary Ames LDL CALC NORMAL SEE BELOW Normal [facility] Comment on above: Result Comment: <100 mg/dl OPTIMAL 100 - 129 mg/dl NEAR OR ABOVE OPTIMAL 130 - 159 mg/dl BORDERLINE HIGH 160 - 189 mg/dl HIGH >190 mg/dl VERY HIGH Performed By: #### T 7, LIPID, TSH, CMADM, BNP, CMP #### [facility] [address] [address] [address] Rosemary Ames Triglyceride [Mass/Vol] 227 mg/dL Critically high <=150 [facility] Comment on above: Performed By: #### T 7, LIPID, TSH, CMADM, BNP, CMP #### [facility] [address] [address] [address] Rosemary Ames VLDL CALC 45.4 mg/dL Normal [facility] Comment on above: Performed By: #### T 7, LIPID, TSH, CMADM, BNP, CMP #### [facility] [address] [place] [address] Dr. Rosemary Ames PROF 14(COMP METB)on 022 Albumin [Mass/Vol] 4.1 g/dL Normal 3.4-5.0 [facility] Comment on above: Performed By: #### T 7, LIPID, TSH, CMADM, BNP, CMP #### [facility] [address] [place] [address] Dr. Rosemary Ames Albumin/Globulin [Mass ratio] 1.1 {ratio} Normal [facility] Comment on above: Performed By: #### T 7, LIPID, TSH, CMADM, BNP, CMP #### [facility] [address] [place] [address] Dr. Rosemary Ames ALP [Catalytic activity/Vol] 83 U/L Normal 46-[address] [facility] Comment on above: Performed By: #### T 7, LIPID, TSH, CMADM, BNP, CMP #### [facility] [address] [place] [address] Dr. Rosemary Ames ALT [Catalytic activity/Vol] 166 U/L Critically high 14-[address] [facility] Comment on above: Performed By: #### T 7, LIPID, TSH, CMADM, BNP, CMP #### [facility] [address] [place] [address] Dr. Rosemary Ames Anion gap [Moles/Vol] 13.9 mmol/L Normal [facility] Comment on above: Performed By: #### T 7, LIPID, TSH, CMADM, BNP, CMP #### [facility] [address] [place] [address] Dr. Rosemary Ames AST [Catalytic activity/Vol] 97 U/L Critically high 15-[address] [facility] Comment on above: Performed By: #### T 7, LIPID, TSH, CMADM, BNP, CMP #### [facility] [address] [place] [address] Dr. Rosemary Ames Bilirubin [Mass/Vol] 0.7 mg/dL Normal 0.2-1.[address] [facility] Comment on above: Performed By: #### T 7, LIPID, TSH, CMADM, BNP, CMP #### [facility] [address] [address] [address] Rosemary Ames Calcium [Mass/Vol] 9.2 mg/dL Normal 8.5-10.1 [facility] Comment on above: Performed By: #### T 7, LIPID, TSH, CMADM, BNP, CMP #### [facility] [address] [address] [address] Rosemary Ames Chloride [Moles/Vol] 101 mmol/L Normal 98-107 [facility] Comment on above: Performed By: #### T 7, LIPID, TSH, CMADM, BNP, CMP #### [facility] [address] [address] [address] Rosemary Ames CO2 [Moles/Vol] 27.5 mmol/L Normal 21.0-32.0 [facility] Comment on above: Performed By: #### T 7, LIPID, TSH, CMADM, BNP, CMP #### [facility] [address] [place] [address] Dr. Rosemary Ames Creatinine [Mass/Vol] 0.65 mg/dL Normal 0.55-1.[address] [facility] Comment on above: Performed By: #### T 7, LIPID, TSH, CMADM, BNP, CMP #### [facility] [address] [place] [address] Dr. Rosemary Ames EGFR-AF [place]OREAN >60 Normal >=60 [facility] Comment on above: Performed By: #### T 7, LIPID, TSH, CMADM, BNP, CMP #### [facility] [address] [place] [address] Dr. Rosemary Ames EGFR-NON AF [place]ORE[place] >60 Normal >=60 [facility] Comment on above: Performed By: #### T 7, LIPID, TSH, CMADM, BNP, CMP #### [facility] [address] [place] [address] Dr. Rosemary Ames Globulin (S) [Mass/Vol] 3.8 g/dL Normal [facility] Comment on above: Performed By: #### T 7, LIPID, TSH, CMADM, BNP, CMP #### [facility] [address] [place] [address] Dr. Rosemary Ames Glucose [Mass/Vol] 299 mg/dL Critically high 74-106 [facility] Comment on above: Performed By: #### T 7, LIPID, TSH, CMADM, BNP, CMP #### [facility] [address] [place] [address] Dr. Rosemary Ames Potassium [Moles/Vol] 4.4 mmol/L Normal 3.5-5.[address] [facility] Comment on above: Performed By: #### T 7, LIPID, TSH, CMADM, BNP, CMP #### [facility] [address] [place] [address] Dr. Rosemary Ames Protein [Mass/Vol] 7.9 g/dL Normal 6.4-8.2 [facility] Comment on above: Performed By: #### T 7, LIPID, TSH, CMADM, BNP, CMP #### [facility] [address] [place] [address] Dr. Rosemary Ames Sodium [Moles/Vol] 138 mmol/L Normal 136-145 [facility] Comment on above: Performed By: #### T 7, LIPID, TSH, CMADM, BNP, CMP #### [facility] [address] [place] [address] Dr. Rosemary Ames Urea nitrogen [Mass/Vol] 8.0 mg/dL Normal 7.0-18.[address] [facility] Comment on above: Performed By: #### T 7, LIPID, TSH, CMADM, BNP, CMP #### [facility] [address] [place] [address] Dr. Rosemary Ames Urea nitrogen/Creatinine [Mass ratio] 12.3 mg/mg Normal [facility] Comment on above: Performed By: #### T 7, LIPID, TSH, CMADM, BNP, CMP #### [facility] [address] [place] [address] Dr. Rosemary Ames TSHon 12-10-2021 TSH 0.921 uIU/mL Normal 0.358-3.740 [facility] Comment on above: Performed By: #### T 7, LIPID, TSH, CMADM, BNP, CMP #### [facility] [address] [address] [address] Rosemary Ames MG [facility]M DIAGNOSTIC 3D JESICA CA Don 11-29-2021 MG MAMM DIAGNOSTIC 3D JESICA CAD Patient: TESS ASHLEY. Exam Date: 11/29/2021 : 1995 Gender:F Ordering : DR CHAMP LAUREANO . Admission #: [id number] Family : Order #: [id number] CLICK HERE TO VIEW EXAM RADIOLOGY REPORT [...] breast cancer at age 41. LOCATION: [facility] BREAST COMPOSITION: Heterogeneously dense,which may obscure [...] M.D. on 11/29/2021 at 09:59 Normal [facility] US BREAST RIGHT LIMITEDon US BREAST RIGHT LIMITED Patient: TESS ASHLEY. Exam Date: 11/29/2021 : 1995 Gender:F Ordering : DR CHAMP LAUREANO . Admission #: [id number] Family : Order #: [id number] CLICK HERE TO VIEW EXAM RADIOLOGY REPORT [...] breast cancer at age 41. LOCATION: [facility] BREAST COMPOSITION: Heterogeneously dense,which may obscure [...] M.D. on 11/29/2021 at 09:59 Normal [facility] MRI BRAIN WO CONon 2 MRI [...] SEBLE BIGGS Date: 2021-09-13 12:13 Normal [facility] Glucose (Bld) [Mass/Vol]on 0 08-27-2021 Glucose [Mass/Vol] 188 mg/dL [facility] Interpretation and review of laboratory results Abnormal [facility] HbA1c (Bld) [Mass fraction]o n 08-27-2021 Interpretation and review of laboratory results Abnormal [facility] POC Hemoglobin A1Con 022 HbA1c (Bld) [Mass fraction] 7.7 % Abnormal 4 - 6 % [facility] SEROLOGYOrdered By: Fabian Joaquim echeverria on 08-24-2021 Beta hCG Ql Negative (08/24/21 11:29 PM) Normal [facility] Man Sero XR KNEE LT 4V or [...] by: SYLVESTER PRINGLE Date: 2021-08-15 16:[address] [facility] US KIDNEYS BLADDERon US KIDNEYS BLADDER [...] MAY PILLAI Date: 2021-06-13 10:16 Normal [facility] Testosterone Free and Total by LC-MS/MSon 02-04-2021 Sex Hormone Binding Globulin 11 nmol/L Low 30-135 [facility] Comment on above: Result Comment: REFE RENCE INTERVAL: Sex Hormone Binding Globulin Access complete set of age- and/or gender-specific reference intervals for this test in the [facility] Test Directory ([employer]). Testosterone, Free LC-MS/MS 9.1 pg/mL Critically high 0.8-7.4 [facility] Comment on above: Result Comment: To [...] reference intervals for this test in the [facility] Test Directory ([employer]). This test was developed and its performance characteristics determined by [facility]. It has not been cleared or approved by the [place] Food and Drug Administration. This test was performed in a CLIA certified laboratory and is intended for clinical purposes. Performed By: [facility] [address] [place] [id number] Bioassayist: Kiersten Jones MD Testosterone, LC-MS/MS 35 ng/dL Normal 9-55 [facility] Comment on above: Result Comment: Oscar rutherford Testosterone, Females 18 years and older Premenopausal 9-55 ng/dL Postmenopausal 5-32 ng/dL REFERENCE INTERVAL: Testosterone, LC-MS/MS Access complete set of age- and/or gender-specific reference intervals for this test in the [facility] Test Directory ([employer]). This test was developed and its performance characteristics determined by [facility]. It has not been cleared or approved by the [place] Food and Drug Administration. This test was performed in a CLIA certified laboratory and is intended for clinical purposes. Cortisol Daljit 01-31-2021 Cortisol AM 11.0 ug/dL Normal 6.2-19.4 [facility] Comment on above: Performed By: #### C AKSHAT #### [facility] [address] [place] [address] Vital Signs Date Time Vital Sign Value Performing Clinician Facility 08-22-2023 00:15-0400 Hourly Rounding Sg Infante [facility] Comment on above: Result Comment: Patient discharged off u nit in wheelchair. 08-22-2023 00:00-0400 Diastolic blood pressure 47 mm[Hg] Sg Infante [facility] 08-22-2023 00:00-0400 Heart rate 122 /min Sg Infante [facility] 08-22-2023 00:00-0400 Mean blood pressure 71 mm[Hg] Sg Infante [facility] 08-22-2023 00:00-0400 Systolic blood pressure 120 mm[Hg] Sg Infante [facility] 08-21-2023 23:45-0400 Blood Pressure Location Sg Infante [facility] 08-21-2023 23:45-0400 Diastolic blood pressure 52 mm[Hg] Sg Infante [facility] 08-21-2023 23:45-0400 Heart rate 119 /min Sg Infante [facility] 08-21-2023 23:45-0400 Mean blood pressure 78 mm[Hg] Sg Infante [facility] 08-21-2023 23:45-0400 Respiratory rate 16 /min Sg Infante [facility] 08-21-2023 23:45-0400 Systolic blood pressure 130 mm[Hg] Sg Infante [facility] 08-21-2023 23:36-0400 Hourly Rounding Sg Infante [facility] Comment on above: Result Comment: Patient sitting in bed. Call light within reach. 08-21-2023 23:30-0400 Body temperature 97.88 [degF] Sg Infante [facility] 08-21-2023 23:30-0400 Diastolic blood pressure 69 mm[Hg] Sg Infante [facility] 08-21-2023 23:30-0400 Heart rate 135 /min Sg Infante [facility] 08-21-2023 23:30-0400 Mean blood pressure 82 mm[Hg] Sg Infante [facility] 08-21-2023 23:30-0400 Respiratory rate 18 /min Sg Infante [facility] 08-21-2023 23:30-0400 Systolic blood pressure 107 mm[Hg] Sg Infante [facility] 08-21-2023 22:09-0400 Hourly Rounding Sg Infante [facility] Comment on above: Result Comment: Labetalol given for BP. 08-21-2023 21:30-0400 Body temperature 98.42 [degF] Sg Infante [facility] 08-21-2023 20:20-0400 Diastolic blood pressure 91 mm[Hg] Tyler Melina [facility] 08-21-2023 20:20-0400 Heart rate 138 /min Tyler Melina [facility] 08-21-2023 20:20-0400 Mean blood pressure 110 mm[Hg] Tyler Melina [facility] 08-21-2023 20:20-0400 Respiratory rate 20 /min Tyler Melina [facility] 08-21-2023 20:20-0400 SaO2% (BldA) [Mass fraction] 97 % Tyler Melina [facility] 08-21-2023 20:20-0400 Systolic blood pressure 149 mm[Hg] Tyler Melina [facility] 08-21-2023 19:43-0400 Diastolic blood pressure 86 mm[Hg] Tyler Melina [facility] 08-21-2023 19:43-0400 Heart rate 141 /min Tyler Melina [facility] 08-21-2023 19:43-0400 Mean blood pressure 110 mm[Hg] Tyler Melina [facility] 08-21-2023 19:43-0400 Respiratory rate 18 /min Tyler Melina [facility] 08-21-2023 19:43-0400 SaO2% (BldA) [Mass fraction] 97 % Tyler Melina [facility] 08-21-2023 19:43-0400 Systolic blood pressure 158 mm[Hg] Tyler Melina [facility] 08-21-2023 19:22-0400 Body temperature 98.6 [degF] Tyler Melina [facility] 08-21-2023 19:22-0400 Diastolic blood pressure 103 mm[Hg] Tyler Melina [facility] 08-21-2023 19:22-0400 Heart rate 131 /min Tyler Melina [facility] 08-21-2023 19:22-0400 Mean blood pressure 118 mm[Hg] Tyler Melina [facility] 08-21-2023 19:22-0400 Respiratory rate 16 /min Tyler Melina [facility] 08-21-2023 19:22-0400 SaO2% (BldA) [Mass fraction] 97 % Tyler Melina [facility] 08-21-2023 19:22-0400 Systolic blood pressure 148 mm[Hg] Tyler Melina [facility] 08-21-2023 19:07-0400 Body temperature 99.14 [degF] Tyler Melina [facility] 08-21-2023 19:07-0400 Heart rate 140 /min Tyler Melina [facility] 08-21-2023 19:07-0400 Respiratory rate 22 /min Tyler Summers [facility] 05-07-2023 15:08-0500 Body height 152.4 cm Opal Heath ICE CREAM MACHINE OPERATOR-BRINE SUPERVISOR Work Phone: [facility] 05-07-2023 15:08-0500 Body mass index (BMI) [Ratio] 48.43 kg/m2 Opal Levigan ICE CREAM MACHINE OPERATOR-BRINE SUPERVISOR Work Phone: [facility] 05-07-2023 15:08-0500 Body weight 112.49 kg Opal Levigan ICE CREAM MACHINE OPERATOR-BRINE SUPERVISOR Work Phone: [facility] 05-07-2023 15:08-0500 Diastolic blood pressure 64 mm[Hg] Opal Heath ICE CREAM MACHINE OPERATOR-BRINE SUPERVISOR Work Phone: [facility] 05-07-2023 15:08-0500 Heart rate 111 /min Opal Heath ICE CREAM MACHINE OPERATOR-BRINE SUPERVISOR Work Phone: [facility] 05-07-2023 15:08-0500 Systolic blood pressure 136 mm[Hg] Opal Heath ICE CREAM MACHINE OPERATOR-BRINE SUPERVISOR Work Phone: [facility] 05-07-2023 14:16-0500 Body height 152.[address] [facility] Ed [facility] 05-07-2023 14:16-0500 Body mass index (BMI) [Ratio] 48.63 kg/m2 [facility] 05-07-2023 14:16-0500 Body weight 112.95 kg [facility] 04-17-2023 10:25-0500 Body mass index (BMI) [Ratio] 47.85 kg/m2 Mario Conway DO Work Phone: [facility] 04-17-2023 10:25-0500 Body weight 111.13 kg Mario Zoraida DO Work Phone: [facility] 04-17-2023 10:25-0500 Diastolic blood pressure 76 mm[Hg] Mario Zoraida DO Work Phone: [facility] 04-17-2023 10:25-0500 Systolic blood pressure 122 mm[Hg] Mario Zoraida DO Work Phone: [facility] 08-27-2021 11:09-0400 Body height 152.4 cm Gregorio Floyd MD Work Phone: [facility] 08-27-2021 11:09-0400 Body mass index (BMI) [Ratio] 46.68 kg/m2 Gregorio Floyd MD Work Phone: [facility] 08-27-2021 11:09-0400 Body weight 108.41 kg Gregorio Floyd MD Work Phone: [facility] 08-27-2021 11:09-0400 Diastolic blood pressure 86 mm[Hg] Gregorio Floyd MD Work Phone: [facility] 08-27-2021 11:09-0400 Heart rate 97 /min Gregorio Floyd MD Work Phone: [facility] 08-27-2021 11:09-0400 Systolic blood pressure 125 mm[Hg] Gregorio Floyd MD Work Phone: [facility] 08-25-2021 14:00-0400 Diastolic blood pressure 81 mm[Hg] Tyler Melina [facility] 08-25-2021 14:00-0400 Heart rate 85 /min Tyler Melina [facility] 08-25-2021 14:00-0400 Mean blood pressure 100 mm[Hg] Tyler Melina [facility] 08-25-2021 14:00-0400 Respiratory rate 16 /min Tyler Melina [facility] 08-25-2021 14:00-0400 SaO2% (BldA) [Mass fraction] 98 % Tyler Melina [facility] 08-25-2021 14:00-0400 Systolic blood pressure 138 mm[Hg] Tyler Melina [facility] 08-25-2021 01:00-0400 Diastolic blood pressure 85 mm[Hg] Tyler Melina [facility] 08-25-2021 01:00-0400 Heart rate 87 /min Tyler Melina [facility] 08-25-2021 01:00-0400 Respiratory rate 16 /min Tyler Melina [facility] 08-25-2021 01:00-0400 SaO2% (BldA) [Mass fraction] 98 % Tyler Melina [facility] 08-25-2021 01:00-0400 Systolic blood pressure 140 mm[Hg] Tyler Melina [facility] 08-25-2021 00:00-0400 Diastolic blood pressure 89 mm[Hg] Tyler Melina [facility] 08-25-2021 00:00-0400 Heart rate 95 /min Tyler Melina [facility] 08-25-2021 00:00-0400 SaO2% (BldA) [Mass fraction] 97 % Tyler Melina [facility] 08-25-2021 00:00-0400 Systolic blood pressure 149 mm[Hg] Tyler Melina [facility] 08-24-2021 22:50-0400 Body temperature 100.22 [degF] Tyler Summers [facility] Encounters Encounter Date Encounter Type Care Provider Facility Start: 09-18-2023 End: 09-18-2023 ambulatory MARIO ZORAIDA Not Available Start: 09-10-2023 End: 09-10-2023 ambulatory MARIO ZORAIDA Not Available Start: 08-27-2023 End: 08-27-2023 ambulatory MARIO ZORAIDA Not Available Start: 08-26-2023 End: 08-26-2023 ambulatory KRISH TERRY Not Available Start: 08-23-2023 End: 09-23-2023 Pre-admission assessment Sg Infante [facility] Start: 08-21-2023 End: 08-22-2023 ambulatory Sg Infante Facility:[facility] Start: 08-21-2023 End: 08-22-2023 OB Triage Sg Infante [facility] Start: 08-21-2023 End: 08-21-2023 Emergency department patient visit Tyler Summers [facility] Start: 08-20-2023 End: 08-20-2023 ambulatory SG JOSELIN [facility] Start: 08-13-2023 End: 08-13-2023 ambulatory [facility] Start: 08-11-2023 End: 08-11-2023 ambulatory MARIO ZORAIDA Not Available Start: 08-05-2023 End: 08-05-2023 ambulatory MARIO ZORAIDA Not Available Start: 07-29-2023 End: 07-29-2023 ambulatory [facility] Start: 07-28-2023 End: 07-28-2023 ambulatory MARIO ZORAIDA Not Available Start: 07-23-2023 End: 07-23-2023 ambulatory [facility] Start: 07-22-2023 End: 07-22-2023 ambulatory GLENDA CAM [facility] Start: 07-14-2023 End: 07-14-2023 ambulatory MARIO ZORAIDA Not Available Start: 07-10-2023 End: 07-10-2023 ambulatory LEANA [facility] Start: 06-30-2023 End: 06-30-2023 ambulatory MARIO ZORAIDA Not Available Start: 06-30-2023 End: 06-30-2023 ambulatory [facility] Start: 06-23-2023 End: 06-23-2023 ambulatory RIVERSIDE Isela [facility] Start: 06-23-2023 End: 06-23-2023 ambulatory [facility] Start: 06-11-2023 End: 06-11-2023 ambulatory MARIO R ZORAIDA [facility] Start: 06-10-2023 End: 06-10-2023 ambulatory MARIO ZORAIDA Not Available Start: 06-09-2023 Orders Only Leana franco MD Work Phone: [facility] Start: 06-04-2023 Orders Only Leana franco MD Work Phone: [facility] Comment on above: Type 2 diabetes naz itus in , second trimester (Primary Dx) Start: 05-29-2023 End: 05-29-2023 ambulatory MARIO ZORAIDA Not Available Start: 05-29-2023 End: 05-29-2023 Office outpatient visit 25 minutes Leana Burr MD Work Phone: [facility] Comment on above: Type 2 diabetes naz itus in , second trimester (Primary Dx) Start: 05-29-2023 End: 05-29-2023 ambulatory [facility] Start: 05-20-2023 End: 05-20-2023 Orders Only Mary Guidry ICE CREAM MACHINE OPERATOR-CNM Work Phone: [facility] Comment on above: Type 2 diabetes naz itus in , second trimester (Primary Dx) Start: 05-20-2023 End: 05-20-2023 Office outpatient new 45 minutes Leana Burr MD Work Phone: [facility] Comment on above: Type 2 diabetes naz itus in , second trimester (Primary Dx) Start: 05-13-2023 Telephone encounter Joann pastrana RN Work Phone: [facility] Start: 05-12-2023 Telephone encounter Joann pastrana RN Work Phone: [facility] Start: 05-12-2023 End: 05-12-2023 ambulatory SHWETHA WALTON Not Available Start: 05-08-2023 Orders Only Queta Zazueta [facility] Comment on above: Type 2 diabetes naz itus in , second trimester (Primary Dx) Start: 05-07-2023 End: 05-07-2023 Office outpatient visit 25 minutes Opal Heath ICE CREAM MACHINE OPERATOR-BRINE SUPERVISOR Work Phone: [facility] Comment on above: Type 2 diabetes naz itus in , second trimester (Primary Dx); Insulin pump in place; HTN in , chronic Start: 05-07-2023 End: 05-07-[address] Work Phone: [facility] Comment on above: Type 2 diabetes naz itus in , second trimester (Primary Dx); Pre-existing type 2 diabetes mellitus during in first trimester Start: 04-23-2023 Chart abstracting Opal falk ICE CREAM MACHINE OPERATOR-BRINE SUPERVISOR Work Phone: [facility] Start: 04-23-2023 Telephone encounter Danyell Ortiz RN [facility] Start: 04-17-2023 End: 04-17-2023 Office outpatient visit 15 minutes Mario Zoraida DO Work Phone: [facility] Comment on above: Bleeding in early pr egnancy; Follow-up exam Start: 04-17-2023 End: 04-17-2023 ambulatory MARIO JARRETTO Not Available Start: 04-14-2023 End: 04-14-2023 ambulatory MARIO JARRETTO Not Available Start: 03-14-2023 End: 03-14-2023 ambulatory MARIO JARRETTO Not Available Start: 05-31-2022 End: 05-31-2022 ambulatory [...] Start: 08-27-2021 End: 08-27-2021 ambulatory CHAMP LAUREANO [facility] Start: 08-27-2021 End: 08-27-2021 Office outpatient new 60 minutes Champ Laureano MD Work Phone: [facility] Comment on above: Type 2 diabetes naz itus with hyperglycemia, unspecified whether termite helper insulin use (HCC) (Primary Dx); Thyroid disorder; Hair loss Start: 08-24-2021 End: 08-25-2021 Emergency department patient visit Tyler Summers [facility] Start: 08-15-2021 End: 08-15-2021 ambulatory GERGORY FAN . Facility:[facility] Start: 06-13-2021 End: 06-14-[address] CHAMP LAUREANO . Facility:[facility] Start: 05-04-2021 Transcribe Orders Champ Laureano MD Work Phone: [facility] Comment on above: Thyroid disorder (Pr imary Dx); Hair loss Procedures Date Procedure Procedure Detail Performing Clinician Start: 05-12-2023 Microscopic observat ion [Identifier] in Cervix by Cyto stain Leana Burr MD Work Phone: Start: 04-01-2023 Antibody screen Bebe Heath ICE CREAM MACHINE OPERATOR-[facility] Work Phone: Start: 04-01-2023 Bacteria identified [...] malign ant neoplasm of cervix Pap Smear [facility] Start: 05-28-2024 Tobacco Screening Tobacco Screening [facility] Start: 05-07-2024 Adult BMI Screening Adult BMI Screen ing [facility] Start: 05-07-2024 Tobacco Screening Tobacco Screening [facility] Start: 05-07-2024 End: 05-07-2024 US MFM with or without consult US MFM with or without consult Imaging Routine Type 2 diabetes mellitus in , second trimester Expected: 05/07/2024 (Approximate), Expires: 05/07/2024 [facility] Work Phone: Comment on above: Expected: 05/07/2024 (Approximate), Expires: 05/07/2024 Start: 11-09-2023 Influenza vaccination Influenza Vacc ine [facility] Start: 06-11-2023 End: 06-11-2023 Patient encounter procedure 06/11/2023 1:00 PM EDT Appointment [facility] [address] [facility] [place] [phone] [facility] Start: 06-10-2023 End: 06-10-2023 Patient encounter procedure 06/10/2023 3:00 PM EDT Office Visit [facility] [address] [place] [phone] Leana Burr MD [address] [place] [address] [facility] End[facility] Start: 06-04-2023 End: 06-04-2023 Patient encounter procedure 06/04/2023 10:45 AM EDT Office Visit [facility] [address] [place] [phone] Leana Burr MD [address] [place] [address] [facility] Start: 05-29-2023 End: 05-29-2023 Patient encounter procedure 05/29/2023 10:45 AM EDT Office Visit [facility] [address] [place] [phone] Leana Burr MD [address] [facility] [address] [place] [address] [facility] Start: 05-20-2023 End: 05-20-2023 Telemedicine consultation with patient 05/20/2023 8:00 AM EDT Telemedicine [facility] Endocrinology [facility] [address] [place] [phone] Leana Burr MD [address] [facility] [address] [place] [address] [facility] Start: 05-12-2023 End: 05-12-2023 Patient encounter procedure 05/12/2023 8:30 AM EST Routine [facility] [address] [place] [address] Shwetha Walton PA [address] [place] [address] [facility] Start: 05-07-2023 End: 05-07-2023 Patient encounter procedure 05/07/2023 3:00 PM EST Office Visit [facility]- Medicine at [facility] [address] [place] [address] Opal Heath, ICE CREAM MACHINE OPERATOR-BRINE SUPERVISOR [address] [place] [address] [facility] Start: 05-07-2023 End: 05-07-2023 ambulatory 05/07/2023 1:00 PM EST Support Visit Maternal- Medicine at [facility] [address] [place] [phone] Shital Cehn, IZAIAH [address] [place] [address] [facility] at [facility] Start: 11-08-2022 Influenza vaccination Influenza Vacc ine [facility] Start: 11-27-2021 End: 11-27-2021 Patient encounter procedure 11/27/2021 Office Visit Endocrinology Gregorio Floyd MD [address] [place] [id number] [facility] Start: 11-27-2021 Hemoglobin A1c measurement A1C [facility] Start: 11-08-2021 Influenza vaccination Sequenti al Influenza Vaccine (Season Ended) [facility] Start: 06-25-2021 End: 06-25-2021 Patient encounter procedure 06/25/2021 Office Visit Endocrinology Gregorio Floyd MD [address] [place] [address] [facility] Start: 11-08-2020 Influenza vaccination Sequenti al Influenza Vaccine (#1) [facility] Start: 11-14-2015 Screening for malign ant neoplasm of cervix Pap Smear [facility] Start: 2013 DTaP,Tdap and Td Vaccines (1 - Tdap) DTaP,Tdap and Td Vaccines (1 - Tdap) [facility] Start: 2012 Adult BMI Follow Up Plan Adult BMI Follow Up Plan [facility] Start: 2012 Adult BMI Screening Adult BMI Screen ing [facility] Start: 2012 Diabetic foot examination Diabetic Foot Exam [facility] Start: 2012 Hepatitis C screening Hepatitis C Sc reening [facility] Start: 2009 HIV screening HIV Screening [facility] Start: 2006 Depression screening using PHQ-9 (Patient Health Questionnaire 9) score [facility] Start: 2006 Tobacco Screening Tobacco Screening [facility] Start: 2005 DTaP,Tdap and Td Vaccines (5 - Tdap) DTaP,Tdap and Td Vaccines (5 - Tdap) [facility] Start: 2004 Diabetic foot examination Foot Exam [facility] Start: 2004 Microalbumin measurement, urine, quantitative Urine Microalbumin [facility] Start: 2004 Ophthalmic examinati on and evaluation Ophthalmology Exam [facility] Start: 2000 Pneumococcal Vaccine : Ped or At-Risk (1 - PCV) Pneumococcal Vaccine: Ped or At-Risk (1 - PCV) [facility] Start: 11-14-1999 COVID-19 Vaccine (#1) COVID-19 Vacci ne (#1) [facility] Start: 11-14-1999 COVID-19 Vaccine (1) COVID-19 Vaccin e (1) [facility] Start: 1997 History and physical examination, annual for health maintenance Wellness Visit [facility] Start: 1994 Glaucoma screening Diabetic Op hthalmology Exam [facility] Start: 1994 Screening for malign ant neoplasm of cervix Pap Smear [facility] Start: 1994 Tetanus vaccination Tetanus: Every 1 0yrs [facility] Start: 1994 Urine screening for protein Urine Microalbumin [facility] End: 08-27-2022 C peptide [Mass/volume] in Serum or Plasma C-peptide Lab Routine Type 2 diabetes mellitus with hyperglycemia, unspecified whether termite helper insulin use (HCC) 1 Occurrences starting 08/27/2021 until 08/27/2022 [facility] Comment on above: 1 Occurrences starti ng 08/27/2021 until 08/27/2022 End: 05-19-2024 C-peptide C-peptide Lab Routine Type 2 diabetes mellitus in , second trimester 1 Occurrences starting 05/20/2023 until 05/19/2024 [facility] Comment on above: 1 Occurrences starti ng 05/20/2023 until 05/19/2024 End: 05-19-2024 GAD65 Ab assay GAD65 Ab assay Lab Routine Type 2 diabetes mellitus in , second trimester 1 Occurrences starting 05/20/2023 until 05/19/2024 [facility] Work Phone: Comment on above: 1 Occurrences starti ng 05/20/2023 until 05/19/2024 End: 08-27-2022 Glucose [Mass/volume] in Serum or Plasma Glucose Lab Routine Type 2 diabetes mellitus with hyperglycemia, unspecified whether termite helper insulin use (HCC) 1 Occurrences starting 08/27/2021 until 08/27/2022 [facility] Comment on above: 1 Occurrences starti ng 08/27/2021 until 08/27/2022 End: 05-19-2024 Glucose [Mass/volume] in Serum or Plasma Glucose Lab Routine Type 2 diabetes mellitus in , second trimester 1 Occurrences starting 05/20/2023 until 05/19/2024 [facility] Comment on above: 1 Occurrences starti ng 05/20/2023 until 05/19/2024 Hepatic function 200 0 panel - Serum or Plasma Hepatic function panel Lab Routine Type 2 diabetes mellitus with hyperglycemia, unspecified whether termite helper insulin use (HCC) Ordered: 08/27/2021 [facility] Comment on above: Ordered: 08/27/2021 End: 05-19-2024 Insulinoma Associated Antibody 2 Insulinoma Associated Antibody 2 Lab Routine Type 2 diabetes mellitus in , second trimester 1 Occurrences starting 05/20/2023 until 05/19/2024 [facility] Comment on above: 1 Occurrences starti ng 05/20/2023 until 05/19/2024 End: 08-27-2022 Islet cell antibody measurement Anti-Islet Cell (GAD65) Antibody Lab Routine Type 2 diabetes mellitus with hyperglycemia, unspecified whether termite helper insulin use (HCC) 1 Occurrences starting 08/27/2021 until 08/27/2022 [facility] Comment on above: 1 Occurrences starti ng 08/27/2021 until 08/27/2022 End: 08-27-2022 Lipid 1996 panel - Serum or Plasma Lipid Panel Lab Routine Type 2 diabetes mellitus with hyperglycemia, unspecified whether termite helper insulin use (HCC) 1 Occurrences starting 08/27/2021 until 08/27/2022 [facility] Comment on above: 1 Occurrences starti ng 08/27/2021 until 08/27/2022 Microalbumin measurement, urine, quantitative Microalbumin/Creatinine Ratio, UR Random Lab Routine Type 2 diabetes mellitus with hyperglycemia, unspecified whether half-way insulin use (HCC) Ordered: 08/27/2021 [facility] Work Phone: Comment on above: Ordered: 08/27/2021 Payers Date Payer Category Payer Unknown [id number] 2019 Medicaid [id number] 1994 Unknown [id number] 2.16. 840.1.441813.3.579.2.903 1994 Unknown [id number] 2.16.84 0.1.427056.3.579.2.593 1994 Unknown [id number] 2.16.84 0.1.427551.3.579.2.593 1994 Unknown [id number] 2.16.84 0.1.614874.3.579.2.593 1994 Unknown [id number] 2.16.84 0.1.800209.3.579.2.593 1994 Unknown [id number] 2.16.84 0.1.904781.3.579.2.593 1994 Unknown [id number] 2.16.84 0.1.104555.3.579.2.593 1994 Unknown [id number] 2.16.84 0.1.170839.3.579.2.593 1994 Unknown [id number] 2.16.84 0.1.560828.3.579.2.593 1994 Unknown [id number] 2.16.84 0.1.026365.3.579.2.593 1994 Unknown [id number] 2.16.84 0.1.388834.3.579.2.593 1994 Unknown [id number] 2.16.84 0.1.089235.3.579.2.593 1994 Unknown [id number] 2.16.84 0.1.870201.3.579.2.593 1994 Unknown [id number] 2.16.84 0.1.355471.3.579.2.593 1994 Unknown [id number] 2.16.8 40.1.731617.3.579.2.1285 1994 Unknown [id number] 2.16.8 40.1.635922.3.579.2.1285 1994 Unknown [id number] 2.16.8 40.1.943063.3.579.2.1285 1994 Unknown [id number] 2.16.8 40.1.941846.3.579.2.1285 1994 Unknown [id number] 2.16.8 40.1.366654.3.579.2.1285 1994 Unknown [id number] 2.16.8 40.1.581497.3.579.2.1285 1994 Unknown [id number] 2.16.8 40.1.099768.3.579.2.1285 1994 Unknown [id number] 2.16.8 40.1.405582.3.579.2.1285 1994 Unknown [id number] 2.16.8 40.1.721207.3.579.2.1285 1994 Unknown [id number] 2.16.8 40.1.361050.3.579.2.1285 1994 Unknown [id number] 2.16.8 40.1.122131.3.579.2.1285 1994 Unknown [id number] 2.16.8 40.1.019138.3.579.2.1285 1994 Unknown [id number] 2.16.8 40.1.412780.3.579.2.1285 1994 Unknown [id number] 2.16.8 40.1.183178.3.579.2.1285 1994 Unknown [id number] 2.16.8 40.1.392276.3.579.2.1285 1994 Unknown [id number] 2.16.8 40.1.657119.3.579.2.1285 1994 Unknown [id number] 2.16.8 40.1.959153.3.579.2.7 1994 Unknown [id number] 2.16.8 40.1.850462.3.579.2.727 1994 Unknown [id number] 2.16.8 40.1.159996.3.579.2. 1994 Unknown [id number] 2.16.8 40.1.813654.3.579.2. 1994 Unknown [id number] 2.16.8 40.1.046668.3.579.2. 1994 Unknown [id number] 2.16.8 40.1.489533.3.579.2. 1994 Unknown [id number] 2.16.84 0.1.947607.3.579.2.1258 1994 Unknown [id number] 2.16.84 0.1.755979.3.579.2.1258 1994 Unknown [id number] 2.16.84 0.1.590182.3.579.2.1258 1994 Unknown [id number] 2.16.84 0.1.938040.3.579.2.1258 1994 Unknown [id number] 2.16.84 0.1.625174.3.579.2.1258 1994 Unknown [id number] 2.16.84 0.1.672194.3.579.2.1258 1994 Unknown [id number] 2.16.84 0.1.071533.3.579.2.1258 1994 Unknown [id number] 2.16.84 0.1.511948.3.579.2.1258 1994 Unknown [id number] 2.16.84 0.1.800384.3.579.2.1258 1994 Unknown [id number] 2.16.84 0.1.935013.3.579.2.1258 1994 Unknown [id number] 2.16.84 0.1.157565.3.579.2.1258 1994 Unknown [id number] 2.16.84 0.1.762694.3.579.2.9 1994 Unknown [id number] 2.16.84 0.1.040189.3.579.2.9 1994 Unknown [id number] 2.16.84 0.1.500307.3.579.2.9 1994 Unknown [id number] 2.16.84 0.1.110613.3.579.2.9 1994 Unknown [id number] 2.16.840 .1.253085.3.579.2.1259 1959 Medicaid [id number] 1959 Unknown [id number] 1959 Unknown [id number] 1959 Unknown [id number] Social History Date Type Detail Facility Start: 04-23-2023 Tobacco smoking status CTIS Tobacco smoking consumption unknown [facility] Start: 1994 Sex Assigned At Not on file O [facility] Start: 08-24-2021 Tobacco smoking status Never [facility] Start: 03-24-2023 End: 05-07-2023 Sex Assigned At Female [facility] Start: 08-17-2021 End: 08-27-2021 Exposure to SARS-CoV-2 (event) Not sure [facility] Start: 03-24-2023 End: 05-07-2023 Tobacco smoking status NHIS Never smoked tobacco [facility] Start: 04-17-2023 Alcohol intake Lifetime non-d jorge (finding) [facility] Start: 03-24-2023 End: 05-07-2023 History of Social function [facility] Start: 02-04-2023 [facility] Start: 1994 Sex Assigned At Female N [facility] Start: 02-27-2023 Gender identity Identifies as female gender (finding) [facility] Start: 05-07-2023 Tobacco use and exposure Smokeless tobacco non-user [facility] Start: 05-07-2023 End: 05-29-2023 Alcohol intake Ex-drinker (finding) [facility] Procedure Code Equipment Code Equipment Origin al Text Equipment Identifier Dates 1 each by Other route if needed [id number] Start: 03-11-2023 Use a new needle with each injection [id number] Start: 05-07-2023 Functional Status Date Assessment Result Facility 08-21-2023 Functional Status N/A [facility] 08-21-2023 Functional Status N/A [facility] 08-24-2021 Functional Status N/A [facility] Clinical Notes 08-24-2021 to 08-22-2023 Note Date & Type Note Facility 08-22-2023 Hospital Discharg e instructions Patient Education 08/21/2023 23:40:58 Vaginal Bleeding During , Third Trimester, Kbkz-xh-Ohpu Vaginal Bleeding During , Third Trimester A [...] you with your normal activities. Medicines Take rdbw-hlu-lvuesuq and prescription medicines only as told by [...] provider. Document Revised: 11/16/2020 Document Reviewed: 11/16/2020 [employer] Patient Education 2022 [employer]. 08/21/2023 23:40:58 Hypertension During , Iomw-wg-Ajco Hypertension During Hypertension is also called high [...] are best for you. General instructions Take bvqs-ejl-jktojac and prescription medicines only as told by [...] Document Reviewed: 11/16/2020 Elsevier Patient Education 2022 [employer]. 08/21/2023 23:40:58 Form - Movement Counts Movement [...] like he or she usually does. Date: ____ Start time: Stop time: Movements: Date: Start [...] provider. Document Revised: 10/14/2019 Document Reviewed: 10/14/2019 [employer] Patient Education 2022 [employer]. Follow Up Care 08/21/2023 21:25:46 With:Mario CONWAY Address: [address] [place] [address]- Business (1) When:08/22/2023 Comments:Call Dr if fever>100.5 F, heavy bleedingCall for severe abdominal painCall physician for heavy vaginal bleedingCall physician if symptoms worsenReturn for contractions closer, longer, harderReturn for decreased movementReturn if ruptured membranes or vaginal bleeding [facility] 08-22-2023 Note The following Patien t Education Materials have been given to the patient: EducationMaterial [facility] 08-21-2023 Hospital Discharg e instructions Patient [...] your health care provider. General instructions Take akxi-gvy-hnizlsl and prescription medicines only as told by [...] provider. Document Revised: 05/25/2020 Document Reviewed: 05/25/2020 [employer] Patient Education 2022 [employer]. Follow Up Care 08/21/2023 19:05:36 With:Roosevelt Maldonado Address: [address] [place] [address] Business (1) When:08/24/2023 21:04:34 With:Champ Ray Address: [address] [place] [address]- Business (1) When:Within 3 Day(s) [facility] 08-21-2023 Evaluation + Plan note Extrac lincoln [...] Views Right XR Wrist 3+ Views Left [facility]03-21-2024 History of Present illness Narrative* Leana Burr MD - 05/29/2023 10:45 AM EDT [facility] Diabetes Visit TELEMEDICINE VISIT: This is an audiovisual visit. This is done to assess the patient and to determine the best medical care. The patient was located at home in [place] and the provider was located at the medical office in [place]. The patient states they are not driving [...] of Delivery: 10/28/23. She is referred from [facility] who is managing along with us. She has had her diabetes education with [facility]. Please see media for full pump [...] within last year: none. Complications: History of UT, CHF: none Medications none Last Lipid panel drawn due after History of HTN: no Medications none History of Diabetic Retinopathy: unknown. Last seen Geospatial Program Management Officer unknown History of peripheral neuropathy: none Medications [...] 10/28/23. She has had diabetes education with [facility]. We reviewed the following We have discussed the issue of insulin-dependent diabetes mellitus and the effect of in detail. There is an elevated risk of malformation of the order of 22% in those who have efnkveamypQ2N 8.5 and higher. Patient aware that maternal [...] breakfast: try low sugar protein shakes or wolof yogurt if appetite lower inthe AM. Complications/ [...] with MFM as well. LEANA BURR MD [facility] documented in this encounterAs[facility] History of Present illness Narrative* Leana Burr MD - 05/20/2023 8:00 AM EDT [facility] Visit Tess Pfeiffer is a [...] of Delivery: 10/28/23. She is referred from [facility] who is managing along with us. She has had her diabetes education with [facility]. Please see media for full pump [...] within last year: none. Complications: History of UT, CHF: none Medications none Last Lipid panel drawn due after History of HTN: no Medications none History of Diabetic Retinopathy: unknown. Last seen Geospatial Program Management Officer unknown History of peripheral neuropathy: none Medications [...] History: Diagnosis Date Anxiety Depression Diabetes mellitus ([facility]) Disease of thyroid gland Hypertension No past [...] 10/28/23. She has had diabetes education with [facility]. We reviewed the following We have discussed the issue of insulin-dependent diabetes mellitus and the effect of in detail. There is an elevated risk of malformation of the order of 22% in those who have ykbxadyogiE9U 8.5 and higher. Patient aware that maternal [...] breakfast: try low sugar protein shakes or wolof yogurt if appetite lower inthe AM. Complications/ [...] with MFM as well. LEANA BURR MD [facility] documented in this encounterAs[facility] Miscellaneous Notes* Telephone Encounter - [...] and denied any questions. documented in this encounterAshtabula [facility]03-[facility]24 Telephone encounter Note* Telephone Encounter [...] meals. Verbalized understanding and denied any questions. [facility] Work Phone: 1(648) 370-577803-04-2024 Miscellaneous Notes* Telephone Encounter - Joann Walsh RN - 05/12/2023 4:36 PM ESTSummary: [facility] Insulin Pump Questions Called and spoke [...] week 05/20/23. Informed would call back after [facility] provider reviews. documented in this encounterAshtabula [facility] Center03-04-2024 Telephone encounter Note* Telephone Encounter - Joann Walsh RN - 05/12/2023 4:36 PM EST Summary: [facility] Insulin Pump Questions Called and spoke [...] week 05/20/23. Informed would call back after [facility] provider reviews. [facility] Work Phone: 1(368) 661-579502-28-2024 History of Present illness Narrative* Queta Zazueta, [facility] - 05/07/2023 3:00 PM EST Headache/epigastric pain/blurry [...] results Have you been seen here at [facility] in a previous ? N/a Recent ER visits or hospitalizations? No Bring blood sugar log or meter with you today? (Please bring them with you for every visit at [facility]) yes Traveled outside the country in the past 6 month no Any concerns that you would like me to mention to the provider today? No * Opal Heath, ICE CREAM MACHINE OPERATOR-BRINE SUPERVISOR - 05/07/2023 3:00 PM EST REASON FOR [...] no complaints. She is being followed at [facility] due to Type 2 DM. [...] TSH 1.05 04/01/2023 No results found for: [id number] No results found for: CREATININE , BUN [...] by e-mail to: or by fax to: [phone] 40 Minutes spent eipq-wv-qhvf; more than 50% of time spent counseling and/or coordinating care withadditional time for record review and communication to referring provider. SABINA Uribe 05/07/23 1556 documented in this encounterAshtabula [facility] Center02-28-2024 History of Present illness Narrative* [...] care for you: OB Provider Family Doctor Green Building Energy Engineer Name: Sebastian Name: No primary care provider on file. Name:[facility] City: City: City: Last time seen: [...] demonstration Is there anything about your culture, bahai, or personal beliefs we need to know about to care for you: Other none Primary Language spoken: Tanzanian [22] Primary Language for learning: Tanzanian Are you currently in a relationship where you are physically hurt, threatened or made to fee afraid? [] Yes [x] No Packaging Mechanic needed? [] Yes [x] No Marital status/Living [...] If yes, where: On thge following scale, [place] the number, which describes your current level [...] Past Medical History: Diagnosis Date Diabetes mellitus ([facility]) Disease of thyroid gland Hypertension [...] Educational Level high school Family issues none Cultural/ethnic/mandaeism influences none Exercise approved by MD? Current Exercise program walking Who prepares the meal pt Who purchase food at your home? pt Equipment use for cooking/food storage has all Food Assistance(Ex.WIC, Food [place]) has apt Dining out Yes 1 time per month Appetite/Appetite changes increased Weight History stable Do you have cats at home? Infant Feeding Plans Breast Feeding If you have cats, who cleans the litter box? Cravings/Aversions/Pica none currently Nutrition Assessment Worksheet: Week/Weekend Food Recall Breakfast [place] Or cereal Or eggs Snack Lunch Grilled [...] face time 40 minutes. documented in this encounterAshtabula [facility] Center02-28-2024 Instructions* Patient Instructions* Danyell Ortiz RN - [...] 4 HOURS WHILE AWAKE documented in this encounterAshtabula County Medical Center02-14-2024 Miscellaneous Notes* Telephone Encounter - Danyell Ortiz RN - 04/23/2023 12:23 PM EST Called pt due toher not coming to her appt today and she stated she had left a message that she needed to tammi due to not having transportation to her appt this morning. Her name given back to the schedulers to call and resched her. [facility] [id number] Telephone encounter Note* Telephone Encounter - Danyell Ortiz RN - 04/23/2023 12:23 PM EST Called pt due toher not coming to her appt today and she stated she had left a message that she needed to tammi due to not having transportation to her appt this morning. Her name given back to the schedulers to call and resched her. [facility] [id number] History of Present illness Narrative* Mario Conway, - 04/17/2023 10:30 AM EST Reason for [...] Hand fracture, right Type 2 diabetes mellitus ([facility]) Family History Problem Relation Name [...] nursing note reviewed. Exam conducted with a hoop machine operator present. Vitals: Estimated body mass [...] of: Mario Conway DO documented in this encounterThe [facility]. [id number] Instructions* Patient Instructions* Gregorio Floyd MD - [...] hold levothyroxine for now. documented in this [id number] History of Present illness Narrative* Gregorio Floyd [...] ALKPHOS, BILITOT No results found for: TSH, [id number], THYROIDAB No results found for: PTH, CALCIUM, JACQUES, PHOS Lab Results Component Value Date HGBA1C 7.7 (A) 08/27/2021 No results found for: LDLCALC, CHOL, HDL, TRIG, CHOLHDL No results found for: MICALBCREAT, [id number] No results found for: CPEPTIDE Assessment and [...] acanthosis nigricans indicate T2DM, but will get NTV43-Lf and c-peptide/glucose given the young age of [...] Due for foot exam no 08/2021; to psychosocial rehabilitation counselor on foot care next visit CV [...] Gregorio Floyd MD Endocrinology documented in this [id number] Hospital Discharge instructions Patient Education 08/25/2021 02:09:26 [...] Ask your health care provider for a vwgb-et-zjyx plan for gradually returning to activities. Ask [...] your friends, family, a trusted colleague, and telephone sex worker about your injury, symptoms, and restrictions. Have them watch for any new or worsening problems. General instructions Take kwvx-uvb-okmryeg and prescription medicines only as told by [...] 02/24/2006 Document Revised: 03/24/2019 Document Reviewed: 03/19/2019 [employer] Patient Education 2020 [employer]. 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 General instructions Take brir-jkk-qlrgofk and prescription medicines only as told by [...] 12/22/2007 Document Revised: 06/16/2019 Document Reviewed: 10/23/2016 [employer] Patient Education 2020 [employer]. Follow Up Care 08/24/2021 22:42:21 With:Champ Laureano Address: [address] [place], [place] [id number]- Business (1) When:Within 3 Day(s) [facility]06-17-2022 Evaluation + Plan noteExtracted from: Title:ED Note [...] w/o Contrast CT Spine Cervical w/o Contrast [facility] Diagnosis Thyroid disorder- Primary Unspecified disorder of thyroid Hair loss Unspecified alopecia [facility] Diagnosis Type 2 diabetes mellitus with hyperglycemia, unspecified whether half-way insulin use (HCC)- Primary Thyroid disorder Unspecified disorder of thyroid Hair loss Unspecified alopecia [facility] Diagnosis Bleeding in early Unspecified hemorrhage in early , unspecified as to episode of care Follow-up exam Unspecified follow-up examination [facility] Diagnosis Type 2 diabetes mellitus in , second trimester- Primary Insulin pump in place Insulin pump status HTN in , chronic [facility] Diagnosis Type 2 diabetes mellitus in , second trimester- Primary Pre-existing type 2 diabetes mellitus during in first trimester documented [facility] Diagnosis Type 2 diabetes mellitus in , second trimester- Primary documented in this [facility] Diagnosis Type 2 diabetes mellitus in , second trimester- Primary documented in this encounter [facility] Diagnosis Type 2 diabetes mellitus in , second trimester- Primary documented in [facility]* Diagnosis Type 2 diabetes mellitus in , second trimester- Primary [facility] N[facility] No data available for this section [facility] Discharge instructions No data available for this section [facility] on filedocumented in this encounter [facility] filedocumented in this encounter [facility] on filedocumented in this encounter [facility]Not on filedocumented in this encounter [facility] SystemInstructionsNot on filedocumented in this encounter [facility]ructionsNot on filedocumented in this encounter [facility] No data available for this section [facility]ative)* Consultation (Routine) - Pending Review Specialty Diagnoses / Procedures Referred By Contac t Referred To Contact Maternal and Medicine Diagnoses Type 2 diabetes mellitus in , second trimester Insulin pump in place Opal Heath APRN-CNP [address] [place] [address] Leana Burr MD [address], [address] [address] Referral ID Status Reason Start Date Expiration Date Visits Requested Visits Authorized [id number] Pending Review Specialty Services Required 05/07/2023 05/06/2024 1 1 [facility] for referral (narrative)* Consultation (Routine) - Pending Review Specialty Diagnoses / Procedures Referred By Contac t Referred To Contact Endocrinology Diagnoses Type 2 diabetes mellitus in , second trimester Mary Guidry APRN-[facility] [address], [address] [place] [address] Leana Burr MD [facility] [address], [address] [address] Referral ID Status Reason Start Date Expiration Date Visits Requested Visits Authorized [id number] Pending Review Specialty Services Required 05/20/2023 05/19/2024 1 1 [facility] for visit Narrative* Consultation (Routine) - Pending Review Specialty Diagnoses / Procedures Referred By Contac t Referred To Contact Endocrinology Diagnoses Type 2 diabetes mellitus in , second trimester Mary Guidry APRN-CNM [address], [address] [place] [id number] Leana Burr MD [address], [address] [address] Referral ID Status Reason Start Date Expiration Date Visits Requested Visits Authorized [id number] Pending Review Specialty Services Required 05/20/2023 05/19/2024 1 1 [facility] Summary Purpose Family History No [...] Documents on File Type Date Recorded Patient Banquet Captain Expl anation Advance Directives and Livin g Will 05/02/2021 12:00 AM Reason for Referral Specialty Diagnoses / Procedures Referred By Juan Antonio montemayor Referred To Contact Endocrinology Diagnoses Thyroid disorder Hair loss Champ Laureano MD [address] [facility] [address] [place] [address] Gregorio Floyd MD [address] [place] [phone] Referral ID Status Reason Start Date Expiration Date Visits Requested Visits Authorized [id number] Authorized Specialty Services Required/Pat ient's Best Interest 05/04/2021 05/04/2022 1 1 Specialty Diagnoses / Procedures Referred By Juan Antonio montemayor Referred To Contact Maternal and Medicine Diagnoses Type 2 diabetes mellitus in , second trimester Procedures [facility] with or without consult Opal Heath, ICE CREAM MACHINE OPERATOR-BRINE SUPERVISOR [address] [place] [address] [facility] Maternal Med [address] [place] [address] Referral ID Status Reason Start Date Expiration Date V isits Requested Visits Authorized [id number] Pending Review 05/08/2023 05/07/2024 1 1 Additional Source Comments INFORMATION SOURCE (unrecogn ized section and content) DATE CREATED AUTHOR 02/06/2021 [facility] DATE CREATED AUTHOR AUTHOR'S ORGANIZ ATION 08/27/2021 [facility] DATE CREATED AUTHOR AUTHOR'S ORGANIZ ATION 06/02/2022 [facility] DATE CREATED AUTHOR AUTHOR'S ORGANIZ ATION 08/14/2023 [facility] DATE CREATED AUTHOR AUTHOR'S ORGANIZ ATION 08/21/2023 [facility] DATE CREATED AUTHOR AUTHOR'S ORGANIZ ATION 08/23/2023 [facility] DATE CREATED AUTHOR AUTHOR'S ORGANIZ ATION 09/24/2023 [facility] DATE CREATED AUTHOR AUTHOR'S ORGANIZ ATION 09/24/2023 [facility] EP[employer] Care Teams (unrecognized sec tion and content) Personnel Name: Champ Laureano MD Address: Address: [address] [place] [address] [employer] Relationship Specialty Start Date End Date Champ Laureano MD [address] [place] [phone] PCP - General Family Medicine 05/02/21 [employer] Relationship Specialty Start Date End Date Champ Laureano MD [address] [phone] PCP - General Family Medicine 05/02/21 [employer] Relationship Specialty Start Date End Date Champ Laureano MD [address] [place] [phone] PCP - General 03/13/23 Reason for Visit (unrecogniz ed section and content) Reason Comments Thyroid Problem Specialty Diagnoses / Procedures Referred By Contmichelle t Referred To Contact Endocrinology Diagnoses Thyroid disorder Hair loss Champ Laureano MD [address] [place] [address] Gregorio Floyd MD [address] [place] [address] [place] [address] Referral ID Status Reason Start Date Expiration Date V isits Requested Visits Authorized [id number] Closed Specialty Services Required/Deanna ent's Best Interest 05/04/2021 05/04/2022 1 1 Reason Comments ER Follow-up Reason Comments t2dm Reason Comments Diabetes Specialty Diagnoses / Procedures Referred By Contac t Referred To Contact Maternal and Medicine Diagnoses Pre-existing type 2 diabetes mellitus during in first trimester Mario Conway R, DO [address] , [place] [address] [facility] Maternal Med [address] [facility] [place] [address] Referral ID Status Reason Start Date Expiration Date Visits Requested Visits Authorized [id number] Pending Review Specialty Services Required 04/15/2023 04/14/2024 [...] BE BASED ON THE PRIMARY CLINICAL RECORDS. [facility] [employer] provides no warranty or guarantee of the accuracy or completeness of information in this document.
== END 2023-09-25 16:55 | disposition short-term general hospital (02) ==
LOC: FBC 09-26 07:32
PROVIDERS: Admitting Provider Obstetrics & Gynecology; PCP Family Medicine; Visit Provider Obstetrics & Gynecology
DX: O11.3 Pre-existing hypertension with pre-eclampsia, third trimester (principal); O10.913 Unspecified pre-existing hypertension complicating pregnancy, third trimester; O99.213 Obesity complicating pregnancy, third trimester; E66.01 Morbid (severe) obesity due to excess calories; O24.913 Unspecified diabetes mellitus in pregnancy, third trimester; Z3A.35 35 weeks gestation of pregnancy; Z79.4 Long term (current) use of insulin; Z96.41 Presence of insulin pump (external) (internal)
CPT/HCPCS: 36415; 59025; 82565; 84450; 84460; 84520; 84550; 85025; 85384; 85610; 85730; 96374; G0378; G0379; J3475

== ENCOUNTER 2024-01-29 09:58 | Outpatient (OUT) | payer OTHER, SELFPAY ==
--- NOTE | 2024-01-29 09:59 | US_ITS ---
[address] [address] Patient Name: TESS CALVERT MRN: [id number] date: 1995 Sex: F Assigned Patient Location: [facility] Current Patient Location: Accession/Order Number: [id number] Exam Date: 01/29/2024 10:00 Report Date: 01/30/2024 05:49 At the request of: PORSHA MOTA Procedure: US pelvis transvaginal EXAMINATION: US pelvis transvaginal HISTORY: IUD PLACEMENT , bleeding COMPARISON: No relevant comparison available. TECHNIQUE: Transabdominal and/or transvaginal sonographic examination was performed as indicated by examination type. FINDINGS: UTERUS: Normal size and appearance. Uterus size: 9.7 x 4.1 x 5.2 cm ENDOMETRIUM: IUD within fundal endometrial cavity. Endometrial thickness: 5 mm RIGHT OVARY: Normal size and appearance. Duplex Doppler demonstrates normal waveform and flow; resistive index 0.5. Ovary size: 4.1 x 2.3 x 2.7 cm LEFT OVARY: Contains a 1.5 cm benign-appearing cyst. Duplex Doppler demonstrates normal waveform and flow; resistive index 0.5. Ovary size: 3.8 x 1.9 x 3.9 cm CUL-DE-SAC: Unremarkable. No significant free fluid. BLADDER: Unremarkable. OTHER: None. US/US pelvis transvaginal IMPRESSION: 1. IUD within endometrial cavity. 2. Benign-appearing 1.5 cm cyst within left ovary. 3. Unremarkable uterus and endometrium. Electronically authenticated by: SEBLE BIGGS Date: 01/30/2024 05:49
== END 2024-01-29 09:59 | disposition home or self-care (01) ==
LOC: NOMS 09:58
PROVIDERS: PCP Family Medicine; Visit Provider Obstetrics & Gynecology
DX: N83.292 Other ovarian cyst, left side (principal); Z30.431 Encounter for routine checking of intrauterine contraceptive device
CPT/HCPCS: 76830

== ENCOUNTER 2024-11-25 16:20 | Outpatient (REF) | payer OTHER, SELFPAY ==
--- OUTSIDE RECORDS SUMMARY | 2024-11-25 10:20 | XMS_ITS ---
Author Name Auto Generated Organization [facility] Care Team Providers Care Combat Control Manager Name Role Phone TREV FLORES Attending Unavailable TREV FLORES Attending Unavailable Rosalba, Angelica Sue Attending Unavailable Habud, Astrit H Attending Unavailable PORSHA MOTA Attending Unavailable PORSHA MOTA Referring Unavailable PORSHA MOTA Attending Unavailable PORSHA MOTA Attending Unavailable PROBLEMS DATE TYPE CONDITION / CODE ATTENDING STATUS [facility] 05/31/2024 Unknown Type 2 diabetes mellitus with hyperglycemia / E11.65(ICD-10) TREV FLORES Active [facility] 05/31/2024 Unknown terminologist (curre nt) use of insulin / Z79.4(ICD-10) TREV FLORES Active [facility] 05/31/2024 Unknown Diabetes / FREETEXT(AOF) TREV FLORES Active [facility] PROCEDURES No Procedure Records Found RESULTS US PELVIC COMPLETE W/ TV Observed: 10/21 2:25 PM Status: F Source: [facility] EPIC Order Comment: US PELVIS-TRA NSVAG IF INDICATED No LMP recorded. FINDINGS: Uterus 8.7 x 3.6 x 4.8 cm Endometrium 6 mm (IUD) Right Ovary 3.8 x 2.6 x 3.8 cm Left Ovary 3.8 x 2.5 x 2.3 cm The uterus is normal in size and orientation. No worrisome mass lesions are seen. Endometrium appears unremarkable.(IUD) . Small amount of endocervical fluid. Normal ovarian size, no adnexal mass. Multiple several millimeter bilateral follicles. IMPRESSION: 1. Appropriate positioned intrauterine device, small amount of endocervical fluid. 2. Follicular ovaries. TRANSCRIBED BY: ELECTRONICALLY SIGNED BY: Sushant Bryant MD ED PATIENT SUMMARY Observed: 05/28/2024 7:53 PM Status: F Source: [facility] ED Patient Summary [address] [address] Patient Discharge Instructions Person Information Name: TESS MOORE Age: 28 Years Arrival Date: 05/28/2024 16:50:47 Discharge Diagnosis: Hyperglycemia Primary Care Physician: Aleksey Bell MD Provider Information Primary Provider: Angelica Navarrete M.D. Advanced Felter Tennis Balls:Lukas Prasad PA-C The exam and treatment you received in the Emergency Department were for an urgent problem and are not intended as complete care. It is important that you follow up with a doctor, nurse practitioner, or physician???s assistant baseball coach for ongoing care. If your symptoms become worse or you do not improve as expected and you are unable to reach your usual health care provider, you should return to the Emergency Department. We are available 24 hours a day. TESS MOORE has been given the following list of patient education materials, prescriptions and follow-up instructions: Follow-up Instructions: With: Address: When: Aleksey Bell [address] [place] [address], [facility] [place] [address] Business (1) In 3 days 05/31/2024 In the event that this physician does not participate in your insurance network, please consult with your insurance company to find a nearby participating provider. Patient Education Materials: Hyperglycemia A MESSAGE TO ALL PATIENTS REGARDING OPIOIDS PRESCRIPTION OPIOIDS: WHAT YOU NEED TO KNOW Prescription opioids can be used to help relieve aunmusub-ck-mbslbq pain and are often prescribed following a [...] as well, even when taken as directed: ??? Tolerance???meaning you might need to take more of the medication for the same pain relief ??? Physical dependence???meaning you have symptoms of withdrawal when a medication is stopped ??? Increased sensitivity to pain ??? Constipation ??? Nausea, vomiting, and dry mouth ??? Sleepiness and dizziness ??? Confusion ??? Depression ??? Low levels of testosterone that can result in lower sex drive, energy, and strength ??? Itching and sweating RISKS ARE GREATER WITH: ??? History of drug misuse, substance use disorder, or overdose ??? Mental health conditions (such as depression or anxiety) ??? Sleep apnea ??? Older age (65 years and older) ??? Avoid alcohol while taking prescription opioids. Also, unless specifically advised by your health care provider, medications to avoid include: ??? Benzodiazepines (such as Xanax or Valium) ??? Muscle relaxants (such as Soma or Flexeril) ??? Hypnotics (such as Ambien or Lunesta) ??? Other prescription opioids KNOW YOUR OPTIONS Talk to your health care provider about ways to manage your pain that don???t involve prescription opioids. Some of these options may actually work better and have fewer risks and side effects. Options may include: ??? Pain relievers such as acetaminophen, ibuprofen, and naproxen ??? Some medication that are also used for depression or seizures ??? Physical therapy and exercise ??? Cognitive behavioral therapy, a psychological, goal-directed approach, in which patients learn how to modify physical, behavioral, and emotional triggers of pain and stress. IF YOU ARE PRESCRIBED OPIOIDS FOR PAIN: ??? Never take opioids in greater amounts or more often than prescribed. ??? Follow up with your primary health care provider. o Work together to create a plan on how to manage your pain. o Talk about ways to help manage your pain that don???t involve prescription opioids. o Talk about any and all concerns and side effects. ??? Help prevent misuse and abuse o Never sell or share prescription opioids. o Never use another person???s prescription opioids. ??? Store prescription opioids in a secure place and out of reach of others (this may include visitors, children, friends, and family). ??? Safely dispose of unused prescription opioids: Find your community drug take-back program or your pharmacy mail-back program, or flush them down the toilet, following guidance from the Food and Drug Administration (www.fda.gov/Drugs/ResourcesForYou). ??? Visit www.cdc.gov/drugoverdose to learn about the risks of opioids abuse and overdose. ??? If you believe you may be struggling with addiction, tell your health home care associate and ask for guidance or call [facility]???S National Helpline at 7-041-845-KSAZ. v Source: [place] Department of Health and Human Services/Center for Disease Control & Prevention [facility] Medications Given: Medication Dose Route No medications found. Medication Information: Medications to Continue with No Changes Other Medications acetaminophen-hydrocodone ([place] 325 mg-5 mg oral tablet) 1 Tablets [...] XR) 225 Milligram By Mouth every day. Comment: Patient Portal You may access all of your results and other medical record information on our secure patient portal. If you are not signed up for this yet, please contact [employer] at [phone] to get signed up today. SIDRA Award Nomination The SIDRA (Diseases Attacking the Immune SYstem) Award is an international recognition program that honors and celebrates the skillful, compassionate care nurses provide every day. Anyone who experiences or observes amazing care being provided by a nurse is encouraged to submit a nomination. To nominate your nurse, use your smart phone to scan the QR code below. You may receive a survey from [employer] asking you to rate your care experience. Your feedback is important and will help us understand what we do well and how we can improve the quality of care we provide to you, your loved ones and our community. It???s an honor to serve you. Thank you for choosing [facility] Patient Education Materials: Hyperglycemia Hyperglycemia occurs when the level of sugar (glucose) in the blood is too high. Glucose is a type of sugar that provides the body's main source of energy. Certain hormones (insulin and glucagon) control the level of glucose in the blood. Insulin lowers blood glucose, and glucagon increases blood glucose. Hyperglycemia can result from not having enough insulin in the bloodstream, or from the body not responding normally to insulin. Hyperglycemia occurs most often in people who have diabetes (diabetes mellitus), but it can happen in people who do not have diabetes. It can develop quickly, and it can be life-threatening if it causes you to become severely dehydrated (diabetic ketoacidosis or hyperglycemic hyperosmolar state). Severe hyperglycemia is a medical emergency. For most people with diabetes, a blood glucose level above 240 mg/dL is considered hyperglycemia. What are the causes? If you have diabetes, hyperglycemia may be caused by: ??? Medicines that increase blood glucose or affect your diabetes control. ??? Getting less physical activity. ??? Eating more than planned. ??? Being sick or injured, having an infection, or having surgery. ??? Stress. ??? Not giving yourself enough insulin (if you are taking insulin). If you have undiagnosed diabetes, this may be the reason you have hyperglycemia. If you do not have diabetes, hyperglycemia may be caused by: ??? Certain medicines, including: ? Steroid medicines. ? Beta-blockers. ? Epinephrine. ? Thiazide diuretics. ??? Stress. ??? Having a serious illness, an infection, or surgery. ??? Diseases of the pancreas. What increases the risk? Hyperglycemia is more likely to develop in people who have risk factors for diabetes, such as: ??? Having a family member with diabetes. ??? Certain conditions in which the body's disease-fighting system (immune system) attacks itself (autoimmune disorders). ??? Being overweight or obese. ??? Having an inactive (sedentary) lifestyle. ??? Having been diagnosed with insulin resistance. ??? Having a history of prediabetes, gestational diabetes, or polycystic ovarian syndrome (PCOS). What are the signs or symptoms? Hyperglycemia may not cause any symptoms. If you do have symptoms, they may include: ??? Increased thirst. ??? Needing to urinate more often than usual. ??? Hunger. ??? Feeling very tired. ??? Blurry vision. Other symptoms may develop if hyperglycemia gets worse, such as: ??? Dry mouth. ??? Abdominal pain. ??? Loss of appetite. ??? Fruity-smelling breath. ??? Weakness. ??? Unexpected weight loss. ??? Tingling or numbness in the hands or feet. ??? Headache. ??? Cuts or bruises that are slow to heal. How is this diagnosed? Hyperglycemia is diagnosed with a blood test to measure your blood glucose level. This blood test is usually done while you are having symptoms. Your health care provider may also do a physical exam and review your medical history. You may have more tests to determine the cause of your hyperglycemia, such as: ??? A fasting blood glucose (FBG) test. You will not be allowed to eat (you will fast) for at least 8 hours before a blood sample is taken. ??? An A1C blood test. This provides information about blood glucose control over the previous 2?3 months. ??? An oral glucose tolerance test (OGTT). This measures your blood glucose at two times: ? After fasting. This is your baseline blood glucose level. ? 2 hours after drinking a beverage that contains glucose. How is this treated? Treatment depends on the cause of your hyperglycemia. Treatment may include: ??? Taking medicine to regulate your blood glucose levels. If you take insulin or other diabetes medicines, your medicine or dosage may be adjusted. ??? Lifestyle changes, such as exercising more, eating healthier foods, or losing weight. ??? Treating an illness or infection. ??? Checking your blood glucose more often. ??? Stopping or reducing steroid medicines. If your hyperglycemia becomes severe and it results in diabetic ketoacidosis or hyperglycemic hyperosmolar state, you must be hospitalized and given IV fluids and IV insulin. Follow these instructions at home: General instructions ??? Take qozh-mtl-mpiwltr and prescription medicines only as told by your health care provider. ??? Do not use any products that contain nicotine or tobacco. These products include cigarettes, chewing tobacco, and vaping devices, such as e-cigarettes. If you need help quitting, ask your health care provider. ??? If you drink alcohol: ? Limit how much you have to: ? 0?1 drink a day for women who are not . ? 0?2 drinks a day for men. ? Know how much alcohol is in a drink. In the [place] one drink equals one 12 oz bottle of beer (355 mL), one 5 oz glass of wine (148 mL), or one 1? oz glass of hard liquor (44 mL). ??? Learn to manage stress. If you need help with this, ask your health care provider. ??? Do exercises as told by your health care provider. ??? Keep all follow-up visits. This is important. Eating and drinking ??? Maintain a healthy weight. ??? Stay hydrated, especially when you exercise, get sick, or spend time in hot temperatures. ??? Drink enough fluid to keep your urine pale yellow. If you have diabetes: ??? Know the symptoms of hyperglycemia. ??? Follow your diabetes management plan as told by your health care provider. Make sure you: ? Take your insulin and medicines as told. ? Follow your exercise plan. ? Follow your meal plan. Eat on time, and do not skip meals. ? Check your blood glucose as often as told. Make sure to check your blood glucose before and after exercise. If you exercise longer or in a different way, check your blood glucose more often. ? Follow your sick day plan whenever you cannot eat or drink normally. Make this plan in advance with your health care provider. ??? Share your diabetes management plan with people in your workplace, school, and household. ??? Check your urine for ketones when you are ill and as told by your health care provider. ??? Carry a medical alert card or wear medical alert jewelry. Where to find more information [place] [employer]: www.diabetes.org Contact a health care provider if: ??? Your blood glucose is at or above 240 mg/dL (13.3 mmol/L) for 2 days in a row. ??? You have problems keeping your blood glucose in your target range. ??? You have frequent episodes of hyperglycemia. ??? You have signs of illness, such as nausea, vomiting, or fever. Get help right away if: ??? Your blood glucose monitor reads high even when you are taking insulin. ??? You have trouble breathing. ??? You have a change in how you think, feel, or act (mental status). ??? You have nausea or vomiting that does not go away. These symptoms may represent a serious problem that is an emergency. Do not wait to see if the symptoms will go away. Get medical help right away. Call your local emergency services (911 in the [place] Do not drive yourself to the hospital. Summary ??? Hyperglycemia occurs when the level of sugar (glucose) in the blood is too high. ??? Hyperglycemia can happen with or without diabetes, and severe hyperglycemia can be life-threatening. ??? Hyperglycemia is diagnosed with a blood test to measure your blood glucose level. This blood test is usually done while you are having symptoms. Your health care provider may also do a physical exam and review your medical history. ??? If you have diabetes, follow your diabetes management plan as told by your health care provider. ??? Contact your health care provider if you have problems keeping your blood glucose in your target range. This information is not intended to replace advice given to you by your health care provider. Make sure you discuss any questions you have with your health care provider. Document Revised: 12/07/2020 Document Reviewed: 12/08/2020 [employer]. Patient Education ? 2023 [employer] CASSONDRA A , have received the following patient education materials/instructions and have verbalized understanding: Patient Education Materials: Hyperglycemia Follow-up Instructions: With: Address: When: Aleksey Bell [address] [place] [address], [facility] [place] [address] Business (1) In 3 days 05/31/2024 Patient Signature Date Clinician/Nurse Signature Date 05/28/2024 19:53:11 ED PATIENT EDUCATION NOTE Observed: 05/09 7:53 PM Status: F Source: [facility] ED Patient Education Note Endocrinology Hyperglycemia Hyperglycemia occurs when the level of sugar (glucose) in the blood is too high. Glucose is a type of sugar that provides the body's main source of energy. Certain hormones (insulin and glucagon) control the level of glucose in the blood. Insulin lowers blood glucose, and glucagon increases blood glucose. Hyperglycemia can result from not having enough insulin in the bloodstream, or from the body not responding normally to insulin. Hyperglycemia occurs most often in people who have diabetes (diabetes mellitus), but it can happen in people who do not have diabetes. It can develop quickly, and it can be life-threatening if it causes you to become severely dehydrated (diabetic ketoacidosis or hyperglycemic hyperosmolar state). Severe hyperglycemia is a medical emergency. For most people with diabetes, a blood glucose level above 240 mg/dL is considered hyperglycemia. What are the causes? If you have diabetes, hyperglycemia may be caused by: ??? Medicines that increase blood glucose or affect your diabetes control. ??? Getting less physical activity. ??? Eating more than planned. ??? Being sick or injured, having an infection, or having surgery. ??? Stress. ??? Not giving yourself enough insulin (if you are taking insulin). If you have undiagnosed diabetes, this may be the reason you have hyperglycemia. If you do not have diabetes, hyperglycemia may be caused by: ??? Certain medicines, including: ? Steroid medicines. ? Beta-blockers. ? Epinephrine. ? Thiazide diuretics. ??? Stress. ??? Having a serious illness, an infection, or surgery. ??? Diseases of the pancreas. What increases the risk? Hyperglycemia is more likely to develop in people who have risk factors for diabetes, such as: ??? Having a family member with diabetes. ??? Certain conditions in which the body's disease-fighting system (immune system) attacks itself (autoimmune disorders). ??? Being overweight or obese. ??? Having an inactive (sedentary) lifestyle. ??? Having been diagnosed with insulin resistance. ??? Having a history of prediabetes, gestational diabetes, or polycystic ovarian syndrome (PCOS). What are the signs or symptoms? Hyperglycemia may not cause any symptoms. If you do have symptoms, they may include: ??? Increased thirst. ??? Needing to urinate more often than usual. ??? Hunger. ??? Feeling very tired. ??? Blurry vision. Other symptoms may develop if hyperglycemia gets worse, such as: ??? Dry mouth. ??? Abdominal pain. ??? Loss of appetite. ??? Fruity-smelling breath. ??? Weakness. ??? Unexpected weight loss. ??? Tingling or numbness in the hands or feet. ??? Headache. ??? Cuts or bruises that are slow to heal. How is this diagnosed? Hyperglycemia is diagnosed with a blood test to measure your blood glucose level. This blood test is usually done while you are having symptoms. Your health care provider may also do a physical exam and review your medical history. You may have more tests to determine the cause of your hyperglycemia, such as: ??? A fasting blood glucose (FBG) test. You will not be allowed to eat (you will fast) for at least 8 hours before a blood sample is taken. ??? An A1C blood test. This provides information about blood glucose control over the previous 2?3 months. ??? An oral glucose tolerance test (OGTT). This measures your blood glucose at two times: ? After fasting. This is your baseline blood glucose level. ? 2 hours after drinking a beverage that contains glucose. How is this treated? Treatment depends on the cause of your hyperglycemia. Treatment may include: ??? Taking medicine to regulate your blood glucose levels. If you take insulin or other diabetes medicines, your medicine or dosage may be adjusted. ??? Lifestyle changes, such as exercising more, eating healthier foods, or losing weight. ??? Treating an illness or infection. ??? Checking your blood glucose more often. ??? Stopping or reducing steroid medicines. If your hyperglycemia becomes severe and it results in diabetic ketoacidosis or hyperglycemic hyperosmolar state, you must be hospitalized and given IV fluids and IV insulin. Follow these instructions at home: General instructions ??? Take agse-fqh-szvwvej and prescription medicines only as told by your health care provider. ??? Do not use any products that contain nicotine or tobacco. These products include cigarettes, chewing tobacco, and vaping devices, such as e-cigarettes. If you need help quitting, ask your health care provider. ??? If you drink alcohol: ? Limit how much you have to: ? 0?1 drink a day for women who are not . ? 0?2 drinks a day for men. ? Know how much alcohol is in a drink. In the [place] one drink equals one 12 oz bottle of beer (355 mL), one 5 oz glass of wine (148 mL), or one 1? oz glass of hard liquor (44 mL). ??? Learn to manage stress. If you need help with this, ask your health care provider. ??? Do exercises as told by your health care provider. ??? Keep all follow-up visits. This is important. Eating and drinking ??? Maintain a healthy weight. ??? Stay hydrated, especially when you exercise, get sick, or spend time in hot temperatures. ??? Drink enough fluid to keep your urine pale yellow. If you have diabetes: ??? Know the symptoms of hyperglycemia. ??? Follow your diabetes management plan as told by your health care provider. Make sure you: ? Take your insulin and medicines as told. ? Follow your exercise plan. ? Follow your meal plan. Eat on time, and do not skip meals. ? Check your blood glucose as often as told. Make sure to check your blood glucose before and after exercise. If you exercise longer or in a different way, check your blood glucose more often. ? Follow your sick day plan whenever you cannot eat or drink normally. Make this plan in advance with your health care provider. ??? Share your diabetes management plan with people in your workplace, school, and household. ??? Check your urine for ketones when you are ill and as told by your health care provider. ??? Carry a medical alert card or wear medical alert jewelry. Where to find more information [place] [employer]: www.diabetes.org Contact a health care provider if: ??? Your blood glucose is at or above 240 mg/dL (13.3 mmol/L) for 2 days in a row. ??? You have problems keeping your blood glucose in your target range. ??? You have frequent episodes of hyperglycemia. ??? You have signs of illness, such as nausea, vomiting, or fever. Get help right away if: ??? Your blood glucose monitor reads high even when you are taking insulin. ??? You have trouble breathing. ??? You have a change in how you think, feel, or act (mental status). ??? You have nausea or vomiting that does not go away. These symptoms may represent a serious problem that is an emergency. Do not wait to see if the symptoms will go away. Get medical help right away. Call your local emergency services (911 in the [place] Do not drive yourself to the hospital. Summary ??? Hyperglycemia occurs when the level of sugar (glucose) in the blood is too high. ??? Hyperglycemia can happen with or without diabetes, and severe hyperglycemia can be life-threatening. ??? Hyperglycemia is diagnosed with a blood test to measure your blood glucose level. This blood test is usually done while you are having symptoms. Your health care provider may also do a physical exam and review your medical history. ??? If you have diabetes, follow your diabetes management plan as told by your health care provider. ??? Contact your health care provider if you have problems keeping your blood glucose in your target range. This information is not intended to replace advice given to you by your health care provider. Make sure you discuss any questions you have with your health care provider. Document Revised: 12/07/2020 Document Reviewed: 12/08/2020 [employer] Patient Education ? 2023 [employer] ED CLINICAL SUMMARY Observed: 05/28/2024 7:53 PM Status: F Source: [facility] ED Clinical Summary [place] [id number] ED Clinical Summary Person Information Name: TESS MOORE Kalpana/[facility] Age: 28 Years : 1995 Sex: Female Language: Uruguayan PCP: Aleksey Bell MD Marital Status: Visit Id: Visit Reason: Nausea; Hyperglycemia; hyperglycemia Speciality: Acuity: 3 Enc Type: Emergency Med Service: Emergency Arrival: 05/28/2024 16:50:47 Discharge: 05/28/2024 19:53:05 LOS: 000 03:03 Checkin: 05/28/2024 16:50:47 Checkout: 05/28/2024 19:53:05 Dispo Type: Home (Routine DC) EVENTS: Event Name Event Status Request Date/Time Start Date/Time Complete Date/Time Arrive Complete 05/28/2024 16:50:47 05/28/2024 16:50:47 05/28/2024 16:50:47 Document Home Meds Request 05/28/2024 16:50:47 Triage Complete 05/28/2024 16:50:47 05/28/2024 17:13:45 05/28/2024 17:13:45 Bed Assign Complete 05/28/2024 16:50:47 05/28/2024 16:50:47 05/28/2024 16:50:47 Dr Exam Complete 05/28/2024 16:50:47 05/28/2024 16:52:37 05/28/2024 16:52:37 RN Exam Complete 05/28/2024 16:50:47 05/28/2024 17:28:47 05/28/2024 17:28:47 Registration Complete 05/28/2024 16:52:37 05/28/2024 17:06:37 05/28/2024 17:06:37 Dr Exam Complete 05/28/2024 16:54:14 05/28/2024 16:54:14 05/28/2024 16:54:14 Pending Labs Request 05/28/2024 16:55:20 Lab Complete 05/28/2024 16:55:20 05/28/2024 17:53:14 Reg Complete Request 05/28/2024 17:06:37 Reg Bed Request Complete 05/28/2024 17:06:37 05/28/2024 17:06:37 05/28/2024 17:06:37 Pending Labs Complete 05/28/2024 17:12:28 05/28/2024 17:12:28 05/28/2024 17:38:44 Lab Complete 05/28/2024 17:12:28 05/28/2024 17:12:28 05/28/2024 17:38:44 Discharge Complete 05/28/2024 19:31:27 05/28/2024 19:53:09 05/28/2024 19:53:09 Transfer Complete 05/28/2024 19:53:09 05/28/2024 19:53:09 05/28/2024 19:53:09 ADDRESS: [address] [place] [phone] PHYS DOC NOTES: MEDICAL INFORMATION: Prescriptions Given: Medications to Continue with No Changes Other Medications acetaminophen-hydrocodone ([place] 325 mg-5 mg oral tablet) 1 Tablets [...] Mouth every day. PATIENT EDUCATION INFORMATION: Instructions: Hyperglycemia Follow up: With: Address: When: Aleksey Bell [address] [place] [address], [address] [place] [phone] Business (1) In 3 days 05/31/2024 DIAGNOSIS: Hyperglycemia BMP Collected: 5:03 PM Status: F Source: [facility] TYPE CODE TESTS RESULT OUT OF RANGE REFERENCE UNITS LAB 2345-7(INC) GLUCOSE:MCNC :PT:SER/PLAS :QN: 266 High 55-199 mg/dL LAB 3094-0(LOINC) UREA NITROGEN:MCN C:PT:SER/NATALIIA S:QN: 12 Normal 5-21 mg/dL LAB 2160-0(LOINC) CREATININE:M CNC:PT:SER/P LAS:QN: 0.6 Normal 0.5-1.3 mg/dL LAB 3097-3(INC) UREA NITROGEN/CRE ATININE:MRTO :PT:SER/PLAS :QN: 20 Normal 10-20 No Units LAB 09065-4(LOINC) CALCIUM:MCNC :PT:SER/PLAS :QN: 9.0 Normal 8.9-11.1 mg/dL LAB 2951-2(LOINC) SODIUM:SCNC: PT:SER/PLAS: QN: 136 Normal 135-145 mmol/L LAB 2823-3(LOINC) POTASSIUM:SC NC:PT:SER/PL :QN: 3.8 Normal 3.5-5.3 mmol/L LAB 2075-0(LOINC) CHLORIDE:SCN C:PT:SER/NATALIIA S:QN: 102 Normal 101-111 mmol/L LAB 2028-9(LOINC) CARBON DIOXIDE:SCNC :PT:SER/PLAS :QN: 23 Normal 21-31 mmol/L LAB 09145-8(LOINC) ANION GAP:SCNC:PT: SER/PLAS:QN: CALCULATED 15 Normal 6-16 mEq/L Performed By: #### [id number] # ### [facility] [address] [place] [address] 26824 B HCG QUAL Collected: 05/28/2024 5:03 PM Status: F Source: [facility] TYPE CODE TESTS RESULT OUT OF RANGE REFERENCE UNITS LAB 2110-5([facility]) CHORIOGONADOT ROPIN.BETA SUBUNIT:PRTHR :PT:SER/PLAS: ORD: NEGATIVE Normal Performed By: #### [id number] #### [facility] [address] [place] [address] 11482 EGFR Collected: 5:03 PM Status: F Source: [facility] TYPE CODE TESTS RESULT OUT OF RANGE REFERENCE UNITS LAB [id number]([facility]) eGFR 124 Normal >=59 mL/min/1 .7 3 m2 Performed By: #### [id number] #### [facility] [address] [place] [address] 89782 CBC W/ AUTO DIFF Collected: 05/28/2024 5:03 PM Statu s: F Source: [facility] TYPE CODE TESTS RESULT OUT OF RANGE REFERENCE UNITS LAB 07260-9([facility]) LEUKOCYTES^^COR RECTED FOR NUCLEATED ERYTHROCYTES:NC NC:PT:BLD:QN:AU TOMATED COUNT 8.8 Normal 4.0-11.0 E9/L LAB 789-8([facility]) ERYTHROCYTES:NC NC:PT:BLD:QN:AU TOMATED COUNT 5.7 Normal 4.3-5.9 E12/L LAB 718-7([facility]) HEMOGLOBIN:MCNC :PT:BLD:QN: 13.3 Normal 12.0-16.0 gm/dL LAB 4544-3([facility]) ERYTHROCYTE/BLO OD:VFR:PT:BLD:Q N:AUTOMATED COUNT 40.9 Normal 34.0-46.0 % LAB 788-0([facility]) OBSERVATION:DIS TWIDTH:PT:RBC:Q N:AUTOMATED COUNT 18.3 High 10.9-14.2 % LAB 785-6([facility]) HEMOGLOBIN:ENTM ASS:PT:RBC:QN:A UTOMATED COUNT 23.3 Low 27.0-34.0 pg LAB 786-4([facility]) HEMOGLOBIN:ENTM CNC:PT:RBC:QN:A UTOMATED COUNT 32.4 Normal 31.4-36.0 gm/dL LAB 787-2([facility]) OBSERVATION:ENT MEANVOL:PT:RBC: QN:AUTOMATED COUNT 72.0 Low 80.0-100.0 fL LAB 68039-3([facility]) PLATELET:ENTMEA NVOL:PT:BLD:QN: AUTOMATED COUNT 8.0 Normal 6.4-10.8 fL LAB 57836665([facility] ) Platelet 252.0 Normal 150.0-500.0 E9/L LAB 85813-2([facility]) NEUTROPHILS/KEVIN KOCYTES:NFR:PT: BLD:QN: 77.7 High 36.0-75.0 % LAB 731-0([facility]) LYMPHOCYTES:NCN C:PT:BLD:QN:AUT OMATED COUNT 14.3 Normal 14.0-50.0 % LAB 742-7([facility]) MONOCYTES:NCNC: PT:BLD:QN:AUTOM ATED COUNT 0.6 Normal 0.2-1.0 E9/L LAB 713-8([facility]) EOSINOPHILS/KEVIN KOCYTES:NFR:PT: BLD:QN:AUTOMATE D COUNT 0.6 Normal 0.0-8.0 % LAB 704-7([facility]) BASOPHILS:NCNC: PT:BLD:QN:AUTOM ATED COUNT 0.6 Normal 0.0-2.0 % LAB 751-8([facility]) NEUTROPHILS:NCN C:PT:BLD:QN:AUT OMATED COUNT 6.8 Normal 2.0-7.5 E9/L LAB 41058-1([facility]) LYMPHOCYTES:NCN C:PT:BLD:QN: 1.3 Normal 1.0-4.0 E9/L LAB 61067-7([facility]) EOSINOPHILS:NCN C:PT:BLD:QN: 0.0 Normal 0.0-0.5 E9/L LAB 74626-9([facility]) BASOPHILS/LEUKO CYTES:NFR.DF:PT :BLD:QN:AUTOMAT ED COUNT 0.0 Normal 0.0-0.2 E9/L LAB 55617-0(LOINC) ERYTHROCYTE SIZE:MORPH:PT:B LD:NOM: SEE MORPHOLOGY Unknown LAB 69534-8(LOINC) HYPOCHROMIA:PRT HR:PT:BLD:ORD:A UTOMATED COUNT PRESENT Unknown LAB 702-1(LOINC) ANISOCYTOSIS:UT THR:PT:BLD:ORD: MICROSCOPY.LIGH T PRESENT Unknown Performed By: #### [id number] # ### [facility] [address] [place] [address] PRE-ARRIVAL NOTE Observed: 05/28/2024 4:51 PM Status: F Source: [facility] Pre-Arrival Note Pre-Arrival Summary Name: , Current Date: 05/28/2024 16:51:27 EDT Gender: Female Date of : Age: 28 Pre-Arrival Type: EMS ETA: 05/28/2024 17:14:00 EDT Primary Care Physician: Presenting Problem: hyperglycemia Pre-Arrival User: Darnell Appiah Referring Source: Location: [place] Completion Date/Time: 05/28/2024 16:44:00 [facility] Emergency Department Pre-Hospital Report Form Vital Signs: Pre-Hospital Report: Treatment in Route: Response to Treatment: Misc. Issues: ED NOTE-PHYSICIAN Observed: 05/28/2024 4:50 PM Status: C Source: [facility] ED Note-Physician Basic Information Time Seen: Angelica Navarrete M.D. 05/28/2024 16:52 Chief Complaint pt. c/o hyperglycemia states her dexcom is due to be changed out. sugars at home have been in the 500's. intermittent nausea, denies vomiting. History of Present Illness 28-year-old female comes to the ED for evaluation of hypoglycemia. She is an insulin-dependent diabetic. She has been having issues with her insulin pump malfunctioning. 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 She had escalating blood sugars, reports blood sugar around 500 last night. She was able to doses of insulin today but comes to the ED for evaluation. She really has no other associate complaints. She had some nausea earlier but not currently. No chest pain or shortness of breath. No cough or congestion. No fever or chills. No abdominal pain or urinary complaints. No concerns of . Review of Systems A 10 point review of systems is negative except as noted above. Medical and Surgical History: Reviewed and noted Social history: Lives at home Tobacco: Denies Physical Exam Vitals & Measurements T: 36.8 ???C(Oral) HR: 108(Monitored) RR: 16 BP: 139/83 SpO2: 98% HT: 152 cm WT: 117.4 kg BMI: 50.81 Nurses notes and vital signs reviewed and patient is not hypoxic. General: The patient appears well, resting comfortably. Skin: Warm, dry. Head: Atraumatic. Neck: No JVD. Eye: Normal conjunctiva. Ears, Nose, Mouth, and Throat: Moist mucous membranes. Cardiovascular: Strong distal pulses. Chest wall: Respiratory: Respirations are nonlabored. Back: Normal range of motion. Musculoskeletal: Normal ROM with no gross deformity. Gastrointestinal: Urological: Neurological: Awake and alert. No focal deficits. Follows commands. Psychiatric: Cooperative. Medical Decision Making Laboratory studies reviewed and noted. Patient with hyperglycemia without acidosis. She was treated here with a liter of IV fluids. She continues to feel well on examination is asymptomatic. We are awaiting the results of her urinalysis, and that she will be safely discharged home. Case discussed with the oncoming physician to follow-up on urinalysis results. Assessment/Plan Hyperglycemia (R73.9: Hyperglycemia, unspecified) Orders: Basic Metabolic Panel Beta hCG Qual CBC w/ Auto Diff eGFR UA with Cult Rflx Disposition Plan Patient Discharge Condition Disposition: Discharged home Condition: Improved and stable Counseled: Patient and/or family were counseled to workup, results, treatment plan and follow-up recommendations Discharge Prescription List Prescriptions No active prescription medications Follow-up With When Contact Information Aleksey Oneillrosamaria In 3 days 05/31/2024 EDT [address] [place] [address]- Business (1) Additional Instructions: Patient Education Hyperglycemia Attestation I performed a substantive part of the MDM during the patient???s E/M visit. I personally made or approved the documented management plan and acknowledge its risk of complications. (Independent Interpretation) My (EKG/X-Ray/US/CT) interpretation as above. (Discussion) Management/test interpretation discussed with APC. This report was transcribed using voice recognition software. Every effort was made to ensure accuracy, however, inadvertently computerized room server mistakes may be present. Appropriate healthcare PPE was used in evaluating this patient. Problem List/Past Medical History Ongoing diabetic Inflamed [...] Jardiance 10 mg oral tablet, Oral, qAM labetalol 100 mg Tab, 3, Oral, TID Lamictal, Oral, BID [place] 325 mg-5 mg oral tablet, 1 tab(s), Oral, q6hr, PRN Protonix, Oral, Daily Rexulti 1 mg oral tablet, Oral, Daily Allergies No Known Allergies Social History Alcohol - Denies Alcohol Use, 04/03/2016 Current, 07/03/2020 Substance Abuse - Denies Substance Abuse, 04/03/2016 Current, 07/03/2020 Tobacco - Denies Tobacco Use, 04/03/2016 Never Smokeless Tobacco Use:., 08/24/2021 Never (less than 100 in lifetime) Tobacco Use:., 07/03/2020 Never (less than 100 in lifetime) Tobacco Use:. Never Smokeless Tobacco Use:., 06/13/2020 Never (less than 100 in lifetime) Tobacco Use:. Never Smokeless Tobacco Use:., 02/10/2020 Family History Acute myocardial infarction: Father. Diabetes mellitus type 2: Mother. Hypertension: Mother and Father. Lab Results WBC: 8.8 E9/L (05/28/24 17:03:00) RBC: 5.7 E12/L (05/28/24 17:03:00) HGB: 13.3 gm/dL (05/28/24 17:03:00) Hct: 40.9 % (05/28/24 17:03:00) MCV: 72 fL Low (05/28/24 17:03:00) MCH: 23.3 pg Low (05/28/24 17:03:00) MCHC: 32.4 gm/dL (05/28/24 17:03:00) RDW: 18.3 % High (05/28/24 17:03:00) Platelet: 252 E9/L (05/28/24 17:03:00) MPV: 8 fL (05/28/24 17:03:00) Neutro Auto: 77.7 % High (05/28/24 17:03:00) Lymph Auto: 14.3 % (05/28/24 17:03:00) [place] Auto: 6.8 % (05/28/24 17:03:00) Eos Auto: 0.6 % (05/28/24 17:03:00) Basophil Auto: 0.6 % (05/28/24 17:03:00) Neutro Absolute: 6.8 E9/L (05/28/24 17:03:00) Lymph Absolute: 1.3 E9/L (05/28/24 17:03:00) [place] Absolute: 0.6 E9/L (05/28/24 17:03:00) Eos Absolute: 0 E9/L (05/28/24 17:03:00) Basophil Absolute: 0 E9/L (05/28/24 17:03:00) RBC Morph: SEE MORPHOLOGY (05/28/24 17:03:00) Anisocytosis: PRESENT (05/28/24 17:03:00) Hypochromasia: PRESENT (05/28/24 17:03:00) Glucose Lvl: 266 mg/dL High (05/28/24 17:03:00) BUN: 12 mg/dL (05/28/24 17:03:00) Creatinine: 0.6 mg/dL (05/28/24 17:03:00) eGFR: 124 mL/min/1.73 m2 (05/28/24 17:03:00) BUN/Creat Ratio: 20 (05/28/24 17:03:00) Sodium Lvl: 136 mmol/L (05/28/24 17:03:00) Potassium Lvl: 3.8 mmol/L (05/28/24 17:03:00) Chloride: 102 mmol/L (05/28/24 17:03:00) CO2: 23 mmol/L (05/28/24 17:03:00) AGAP: 15 mEq/L (05/28/24 17:03:00) Calcium Lvl: 9 mg/dL (05/28/24 17:03:00) Beta hCG Ql: NEGATIVE1 (05/28/24 17:03:00) Diagnostic Results No qualifying data available. Patient signed out pending urinalysis. Patient states she did not want a wait for to urinate is not having any symptoms. She states she will follow-up with her primary care doctor. She is to return to the ED for any new or worsening symptoms. Result Comment: Electronical ly Signed By: Paige Mcginnis DO\.br\Date and Time Signed: 05/29/24 02:38 EDT ALLERGIES DATE TYPE / CODE NAME / CODE REACTION SEVERITY SOURCE /[id number](SNOMED CT) No Known Allergies [facility] Drug Class/[id number](SNO MED CT) NO KNOWN ALLERGIES [facility] ENCOUNTERS ADMIT/DISCHARGE ACCOUNT NUMBER ADMITTING ENCOUNTER CLASS LOCATION SOURCE 11/25/2024/11/26/19 [id number] Ambulatory Building:[facility] EPIC 10/21/2024/10/22/19 [id number] Ambulatory Building:[facility] EPIC 10/20/2024/10/21/19 [id number] Ambulatory Building:[facility] EPIC 05/31/2024/06/01/19 [id number] Ambulatory Buildin [facility] 05/28/2024 [id number] Emergency [facility] :EDRoom: ED-07Bed: CD:[id number] [facility] 05/28/2024/05/29/19 [id number] Emergency [facility] :EDRoom: ED-07Bed: CD:[id number] [facility] 01/26/2024/01/26/20 [id number] Ambulatory Building:[facility] EPIC 01/15/2024/01/15/20 24 [id number] [address] [place] [address] Ambulatory PPG PAYERS ENCOUNTER GUARANTOR PAYER SUBSCRIBER SOURCE 11/25/2024 TESS LEIVASDOB: [place] [id number]: (HP) Primary Insurance:CAR[employer] MEDICAIDPolicy Number: [id number] Date:2021-06-08 TESS LEIVASDOB: [id number] [address] [place] [id number] [place] [address] Medical Specialists EPIC 10/21/2024 TESS LEIVASDOB: [place] [id number]: (HP) Primary Insurance:[employer] MEDICAIDPolicy Number: [id number] Date:2021-06-08 TESS LEIVASDOB: [id number] [place] [address] [place] [address] Medical Specialists EPIC 10/20/2024 TESS LEIVASDOB: [place] [id number]: (HP) Primary Insurance:[employer] MEDICAIDPolicy Number: [id number] Date:2021-06-08 TESS LEIVASDOB: [id number] [address] [place] [id number] [facility] EPIC 05/31/2024 TESS LEIVASDOB: [place] [id number]: (HP) Primary Insurance:[employer] MEDICAID HMOPolicy Number: [id number] Date:2023-04-10 TESS LEIVASDOB: [id number] [place] [address]Hct: (HP) [facility] Ambulatory P[facility] 05/28/2024 TESS CARREONOB: [address]Tel: [phone]~(62 9 (HP) Primary Insurance:CARESOURCEPo licy Number: [id number] Date:3231-18-57KC [address] [place] [id number]: [facility] David [facility] 05/28/2024 TESS CARREONOB: [address]Tel: [phone]~(41 9 (HP) Primary Insurance:CARESOURCEPo licy Number: [id number] Date:[id number] [address] [place] [id number]: [facility] David [facility] 01/26/2024 TESS [place]DOB: [place] [address]Vgq: (HP) Primary Insurance:[employer] MEDICAIDPolicy Number: [id number] Date:2021-06-08 TESS LEIVASDOB: [id number] [place] [address] [facility] 01/15/2024 TESS [place]DOB: [place] [address]Aks: (HP) Primary Insurance:[employer] MEDICAID OPolicy Number: [id number] Date:2023-04-10 TESS LEIVASDOB: [id number] [place] [address]Dqz: (HP) [facility] Ambulatory [facility]
== END 2024-11-25 16:21 | disposition home or self-care (01) ==
LOC: LAB 16:20
PROVIDERS: Visit Provider Obstetrics & Gynecology
DX: N93.9 Abnormal uterine and vaginal bleeding, unspecified (principal); N92.0 Excessive and frequent menstruation with regular cycle

== ENCOUNTER 2024-12-14 10:30 | Outpatient (OUT) | payer OTHER, SELFPAY ==
--- OUTSIDE RECORDS SUMMARY | 2024-12-14 10:39 | XMS_ITS | CCD ---
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 trimester] Onset: 05-07-2023 Resolved: 01-15-2024 09-25-2023 Chronic Hypertension with complications and secondary hypertension (1 source) Hypertensive heart disease with heart failure; Translations: [HTN HEART DISEASE W/HEART FAIL] Onset: 12-13-2021 Chronic Immunizations and screening for infectious disease (2 sources) Exposure to sexually transmissible disorder; Translations: [Contact with and (suspected) exposure to infections with a predominantly sexual mode of transmission] 10-20-2024 Episodic Menstrual disorders (3 sources) Menorrhagia; Translations: [Excessive and frequent menstruation with regular cycle] 10-20-2024 Chronic Mood disorders (5 sources) Depressive disorder 01-17-2019 Chronic Mood disorders (1 source) Mood disorders; Translations: [Depression, unspecified] Onset: 07-22-2023 Other aftercare (2 sources) Follow-up status; Translations: [Encounter for follow-up examination after completed treatment for conditions other than malignant neoplasm] 04-17-2023 Episodic Other aftercare (1 source) 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; Translations: [long-term (current) use of insulin] Onset: 05-31-2024 Episodic Other complications of (2 sources) Obesity complicating , unspecified trimester; Translations: [Obesity complicating , unspecified trimester] Onset: 07-21-2023 Chronic Other female genital disorders (1 source) Abnormal uterine bleeding; Translations: [Abnormal uterine and vaginal bleeding, unspecified] 11-25-2024 Chronic Other injuries and conditions due to external causes (1 source) Injury of head; Translations: [Unspecified injury of head, initial encounter] Onset: 08-25-2021 Episodic Other nervous system disorders (5 sources) Skin sensation disturbance 06-07-2020 Episodic Other nervous system disorders (1 source) Other acute postprocedural pain; Translations: [Other acute postprocedural pain] Onset: 09-25-2023 Episodic Other nutritional; endocrine; and metabolic disorders (2 sources) Body mass index (BMI) 50.0-59.9, adult; Translations: [Body mass index (BMI) 50.0-59.9, adult] Onset: 07-21-2023 Chronic Other nutritional; endocrine; and metabolic disorders (20 sources) Body mass index 40+ - severely obese; Translations: [Body mass index (BMI) 50.0-59.9, adult] Onset: 07-21-2023 07-21-2023 Chronic Other nutritional; endocrine; and metabolic disorders (1 source) Overweight; Translations: [OVERWEIGHT] Onset: 04-28-2022 Episodic Other skin disorders (2 sources) Loss of hair; Translations: [Nonscarring hair loss, unspecified] Episodic Other skin disorders (10 sources) Skin tag 06-05-2020 Episodic Other upper [...] OVRLPNG QUADRNTS] Onset: 11-29-2021 Unclassified (1 source) Hypertension - Onset: 09-25-2023 Unclassified (1 source) t2dm Onset: 05-07-2023 Unclassified (1 source) T2DM IN Onset: 06-23-2023 Past or Other Problems Problem Classification Problem Date Documented Da te Episodic/Chronic Deficiency and other anemia (1 source) Anemia, unspecified; Translations: [ANEMIA UNSPECIFIED] Onset: 12-13-2021 Episodic Diabetes mellitus without complication (7 sources) Other abnormal glucose; Translations: [Presence of insulin pump (external) (internal)] Onset: 12-13-2021 06-11-2023 Episodic Diabetes or abnormal glucose tolerance complicating ; childbirth; or the puerperium (20 sources) Pre-existing type 2 diabetes mellitus, in , first trimester; Translations: [Pre-existing type 2 diabetes mellitus, in , second trimester] Onset: 05-07-2023 Resolved: 01-15-2024 01-15-2024 Chronic E Codes: Overexertion (1 source) Slipping, tripping [...] [OTHER CHEST PAIN] Onset: 12-10-2021 Episodic Other complications of (20 sources) Obesity; Translations: [Obesity complicating , unspecified trimester] Onset: 07-21-2023 Resolved: 01-15-2024 01-15-2024 Chronic Other complications of (20 sources) Depressive disorder; Translations: [Other mental disorders complicating , unspecified trimester] Onset: 07-22-2023 07-22-2023 Episodic Other complications of (1 source) Other mental disorders complicating , unspecified trimester; Translations: [Other mental disorders complicating , unspecified trimester] Onset: 07-22-2023 Episodic Other non-traumatic joint disorders (3 sources) Pain in left knee; Translations: [PAIN IN LEFT KNEE] Onset: 08-15-2021 Episodic Polyhydramnios and other problems of amniotic cavity (2 sources) Polyhydramnios; Translations: [Polyhydramnios, third trimester, not applicable or unspecified] Onset: 09-17-2023 09-17-2023 Episodic Residual codes; unclassified (1 source) Gestation period, 26 weeks; Translations: [26 weeks gestation of ] 07-21-2023 Episodic Residual codes; unclassified (1 source) Gestation period, 34 weeks; Translations: [34 weeks gestation of ] 09-17-2023 Episodic Residual codes; unclassified (1 source) 34 weeks gestation of ; Translations: [34 weeks gestation of ] Onset: 09-17-2023 Episodic Sprains and strains (2 sources) Injury [...] COUGH, UNSPECIFIED; Translations: [COUGH, UNSPECIFIED] Onset: 03-13-2022 Unclassified (4 sources) Onset: 01-20-2023 Resolved: 01-09-2024 08-21-2023 Results Test Name Value Interpretation Reference Range Facility PATHOLOGY REQUEST FOR LAB CO RPon 12-07-2024 PATHOLOGY REQUEST FOR LAB SANDY [facility] Comment on above: See report. Scanned copy available in EMR. [facility] Endometrial biopsyon 025 Sylvia Murillo LPN 11/25/2024 12:02 PM Endometrial biopsy Date/Time: 11/25/2024 11:20 AM Performed by: Mario Conway DO Authorized by: Mario Conway DO Consent: Consent obtained: written Consent given by: patient Patient agrees, verbalizes understanding, and wants to proceed: yes Pre-procedure: Urine test: negative Procedure: A bimanual exam was performed: no Tenaculum used: yes A local block was performed: no Cervix dilated: yes Findings: Cervix: normal Specimen collected: specimen collected and sent to pathology [facility] Endometrial biopsyOrdered By : Sylvia Murillo on 11-25-2024 [facility] HCG ( test) Ql (U)O rdered By: Ashley Quintanilla on 11-25-2024 Interpretation and review of laboratory results Normal [facility] Preg Test, Ur Negative Negative [facility] RECURRENT VAGINITIS (HTRX)on 10-22-2024 ATOPOBIUM VAGINAE 0 [facility] ATOPOBIUM VAGINAE Not detected [facility] BVAB 2,3 (BACTERIAL VAGINOSIS ASSOCIATED BACTERIA 2, 3); MOBILUNCUS SPP 0 [facility] BVAB 2,3 (BACTERIAL VAGINOSIS ASSOCIATED BACTERIA 2, 3); MOBILUNCUS SPP Not detected [facility] CURRY ALBICANS, PARAPSILOSIS, TROPICALIS 0 [facility] CURRY ALBICANS, PARAPSILOSIS, TROPICALIS Not detected [facility] CURRY GLABRATA 0 [facility] CURRY GLABRATA Not detected [facility] CURRY KRUSEI 0 [facility] CURRY KRUSEI Not detected [facility] CHLAMYDIA TRACHOMATIS 0 [facility] CHLAMYDIA TRACHOMATIS Not detected N [facility] GARDNERELLA VAGINALIS 0 [facility] GARDNERELLA VAGINALIS Not detected N [facility] MEGASPHAERA (TYPES 1, 2) 0 [facility] MEGASPHAERA (TYPES 1, 2) Not detected [facility] MYCOPLASMA GENITALIUM 0 [facility] MYCOPLASMA GENITALIUM Not detected N [facility] NEISSERIA GONORRHOEAE 0 [facility] NEISSERIA GONORRHOEAE Not detected N [facility] TRICHOMONAS VAGINALIS 0 [facility] TRICHOMONAS VAGINALIS Not detected N [facility] US PELVIC COMPLETE W/ TVon 0 10-21-2024 US PELVIC COMPLETE W/ TV FINDINGS: Uterus 8.7 x 3.6 x 4.8 [...] BY: ELECTRONICALLY SIGNED BY: Sushant Bryant MD Normal Not Available Comment on above: Order Comment: US PE LVIS-TRANSVAG IF INDICATED No LMP recorded. HCG ( test) Ql (U)o n 10-20-2024 Interpretation and review of laboratory results Normal [facility] Preg Test, Ur Negative Negative [facility] Urinalysis macro (dipstick) panel (U)on 10-20-2024 Bilirubin, UA Negative Negative - 4(70) +++ mg/dL [facility] Blood, UA Negative Negative - 50 Jose/mcL [facility] Clarity, UA Clear [facility] Color, UA Yellow [facility] Glucose, UA 3+ Negative - 2000(110) ++++ mg/dL [facility] Interpretation and review of laboratory results Abnormal [facility] Ketones, UA Positive Negative - 160(16) ++++ mg/dL [facility] Leukocytes, UA Negative Negative - 500+++ Huey/mcL [facility] Nitrite, UA Negative Negative - Positive [facility] pH, UA 6 5 - 9 [facility] Protein, UA Negative Negative - 1999(20) ++++ mg/dL [facility] Spec Grav, UA 1.015 1 - 1.03 [facility] Urobilinogen, UA 1.0 0.2 - 12 mg/dL [facility] POCT Hemoglobin A1con 2024 HbA1c (Bld) [Mass fraction] 10.9 % Abnormal 4 - 7 % [facility] Interpretation and review of laboratory results Abnormal [facility] ED Note-Physicianon 05-30-19 ED Note-Physician ED Note-Physician Basic Information Time Seen: Angelica [...] malfunctioning. She has an appointment with her medicine teacher on Friday to get the pump well-placed. [...] Oneillrosamaria In 3 days 05/31/2024 EDT [address] [id number] Business (1) Additional Instructions: Patient Education Hyperglycemia [...] made to ensure accuracy, however, inadvertently computerized executive officer mistakes may be present. Appropriate healthcare PPE [...] Tab, 3, Oral, TID Lamictal, Oral, BID Keno 325 mg-5 mg oral tablet, 1 tab(s), [...] 17:03:00) HGB: 13.3 gm/dL (05/28/24 17:03:00) Hct: (more content not included)... Normal [facility] Comment on above: Result Comment: Elec tronically Signed By: Paige Mcginnis DObr\Date and Time Signed: 05/29/24 02:38 EDT B hCG Qualon 05-28-2024 Beta HCG ( test) Ql Negative Normal [facility] Comment on above: Performed By: #### 2 [id number] #### [facility] [address] [place] [address] BMPon 05-28-2024 Anion gap [Moles/Vol] 15 mmol/L Normal 6-[address] [facility] Comment on above: Performed By: #### 2 [id number] #### [facility] [address] [place] [address] Calcium [Mass/Vol] 9.0 mg/dL Normal 8.9-11.1 [facility] Comment on above: Performed By: #### 2 [id number] #### [facility] [address] [place] [address] Chloride [Moles/Vol] 102 mmol/L Normal 101-111 [facility] Comment on above: Performed By: #### 2 [id number] #### [facility] [address] [place] [address] CO2 [Moles/Vol] 23 mmol/L Normal 21-31 [facility] Comment on above: Performed By: #### 2 [id number] #### [facility] [address] [place] [address] Creatinine [Mass/Vol] 0.6 mg/dL Normal 0.5-1.[address] [facility] Comment on above: Performed By: #### 2 [id number] #### [facility] [address] [place] [address] Glucose [Mass/Vol] 266 mg/dL High 55-199 [facility] Comment on above: Performed By: #### 2 [id number] #### [facility] [address] [place] [address] Potassium [Moles/Vol] 3.8 mmol/L Normal 3.5-5.[address] [facility] Comment on above: Performed By: #### 2 [id number] #### [facility] [address] [place] [address] Sodium [Moles/Vol] 136 mmol/L Normal 135-145 [facility] Comment on above: Performed By: #### 2 [id number] #### [facility] [address] [place] [address] Urea nitrogen [Mass/Vol] 12 mg/dL Normal 5-21 [facility] Comment on above: Performed By: #### 2 [id number] #### [facility] [address] [place] [address] Urea nitrogen/Creatinine [Mass ratio] 20 No Units Normal 10-20 [facility] Comment on above: Performed By: #### 2 [id number] #### [facility] [address] [place] [address] CBC w/ Auto Diffon 5 Anisocytosis Ql (Bld) PRESENT Invalid Interpretation Code [facility] Comment on above: Performed By: #### 2 [id number] #### [facility] [address] [place] [address] Basophils/100 WBC (Bld) 0.6 % Normal 0.0-2.0 [facility] Comment on above: Performed By: #### 2 324247 #### [facility] [address] [place] [address] Basophils/Leukocytes Auto (Bld) [Pure # fraction] 0.0 E9/L Normal 0.0-0.2 [facility] Comment on above: Performed By: #### 2 [id number] #### [facility] [address] [place] [address] Eosinophils (Bld) [#/Vol] 0.0 E9/L Normal 0.0-0.5 [facility] Comment on above: Performed By: #### 2 [id number] #### [facility] [address] [place] [address] Eosinophils/100 WBC (Bld) 0.6 % Normal 0.0-8.0 [facility] Comment on above: Performed By: #### 2 [id number] #### [facility] [address] [place] [address] Erythrocyte distribution width (RBC) [Ratio] 18.3 % High 10.9-14.2 [facility] Comment on above: Performed By: #### 2 179042 #### [facility] [address] [place] [address] Hematocrit (Bld) [Volume fraction] 40.9 % Normal 34.0-46.0 [facility] Comment on above: Performed By: #### 2 [id number] #### [facility] [address] [place] [address] Hemoglobin (Bld) [Mass/Vol] 13.3 g/dL Normal 12.0-16.0 [facility] Comment on above: Performed By: #### 2 [id number] #### [facility] [address] [place] [address] Hypochromia Auto Ql (Bld) PRESENT Invalid Interpretation Code [facility] Comment on above: Performed By: #### 2 [id number] #### [facility] [address] [place] [address] Lymphocytes (Bld) [#/Vol] 1.3 E9/L Normal 1.0-4.0 [facility] Comment on above: Performed By: #### 2 [id number] #### [facility] [address] [place] [address] Lymphocytes/100 WBC (Bld) 14.3 % Normal 14.0-50.0 [facility] Comment on above: Performed By: #### 2 [id number] #### [facility] [address] [place] [address] MCH (RBC) [Entitic mass] 23.3 pg Low 27.0-34.0 [facility] Comment on above: Performed By: #### 2 072559 #### [facility] [address] [place] [address] MCHC (RBC) [Mass/Vol] 32.4 g/dL Normal 31.4-36.[address] [facility] Comment on above: Performed By: #### 2 [id number] #### [facility] [address] [place] [address] MCV (RBC) [Entitic vol] 72.0 fL Low 80.0-100.0 [facility] Comment on above: Performed By: #### 2 254482 #### [facility] [address] [place] [address] Monocytes (Bld) [#/Vol] 0.6 E9/L Normal 0.2-1.0 [facility] Comment on above: Performed By: #### 2 203563 #### [facility] [address] [place] [address] Neutrophils (Bld) [#/Vol] 6.8 E9/L Normal 2.0-7.5 [facility] Comment on above: Performed By: #### 2 [id number] #### [facility] [address] [place] [address] Neutrophils/100 WBC (Bld) 77.7 % High 36.0-75.0 [facility] Comment on above: Performed By: #### 2 [id number] #### [facility] [address] [place] [address] Platelet 252.0 E9/L Normal 150.0-500.0 [facility] Comment on above: Performed By: #### 2 [id number] #### [facility] [address] [place] [address] Platelet mean volume (Bld) [Entitic vol] 8.0 fL Normal 6.4-10.8 [facility] Comment on above: Performed By: #### 2 186298 #### [facility] [address] [place] [address] RBC (Bld) [#/Vol] 5.7 E12/L Normal 4.3-5.9 [facility] Comment on above: Performed By: #### 2 175579 #### [facility] [address] [place] [address] RBC size Nom (Bld) SEE MORPHOLOGY Invalid Interpretation Code [facility] Comment on above: Performed By: #### 2 [id number] #### [facility] [address] [place] [address] WBC corrected for nucl RBC Auto (Bld) [#/Vol] 8.8 E9/L Normal 4.0-11.0 [facility] Comment on above: Performed By: #### 2 [id number] #### [facility] [address] [place] [address] CHEMISTRYOrdered By: SYSTEM SYSTEM on 05-28-2024 Anion gap [Moles/Vol] 15 mmol/L Normal 6 - 16 mEq/L [facility] Calcium [Mass/Vol] 9.0 mg/dL Normal 8.9 - 11. 1 mg/dL [facility] Chloride [Moles/Vol] 102 mmol/L Normal 101 - 1 11 mmol/L [facility] CO2 [Moles/Vol] 23 mmol/L Normal 21 - 31 mmol/L [facility] Creatinine [Mass/Vol] 0.6 mg/dL Normal 0.5 - 1.3 mg/dL [facility] eGFR 124 mL/min/1.73 m2 Normal >=59mL/mi n/1 .73 m2 [facility] Glucose [Mass/Vol] 266 mg/dL High 55 - 199 mg/dL [facility] Potassium [Moles/Vol] 3.8 mmol/L Normal 3.5 - 5.3 mmol/L [facility] Sodium [Moles/Vol] 136 mmol/L Normal 135 - 145 mmol/L [facility] Urea nitrogen [Mass/Vol] 12 mg/dL Normal 5 - 21 mg/dL [facility] Urea nitrogen/Creatinine [Mass ratio] 20 mg/mg Normal 10 - 20 [facility] ED Clinical Summaryon 2024 ED Clinical Summary ED Clinical Summary [address] [address] ED Clinical Summary Person Information Name: TESS MOORE [place] Age: 28 Years : 1995 Sex: Female Language: Indonesian PCP: Aleksey Laureano MD Marital Status: Visit Id: Visit Reason: [...] 05/28/2024 19:53:09 05/28/2024 19:53:09 05/28/2024 19:53:09 ADDRESS: [address] [place] [id number] PHYS DOC NOTES: MEDICAL INFORMATION: Prescriptions Given: Medications to Continue with No Changes Other Medications acetaminophen-hydroc odone (Keno 325 mg-5 mg oral tablet) 1 Tablets [...] Hyperglycemia Follow up: With: Address: When: Aleksey Laureano [address] [place] [address], [facility] [address] Business (1) In 3 days 05/31/2024 DIAGNOSIS: Hyperglycemia Normal [facility] ED Patient Summaryon 025 ED Patient Summary ED Patient Summary [address] [address] Patient Discharge Instructions Person Information Name: TESS MOORE Age: 28 Years Arrival Date: 05/28/2024 16:50:47 Discharge Diagnosis: Hyperglycemia Primary Care Physician: Aleksey Laureano MD Provider Information Primary Provider: Angelica Navarrete M.D. Advanced Emergency Planner:Lukas Prasad PA-C The exam and treatment you received in the Emergency Department were for an urgent problem and are not intended as complete care. It is important that you follow up with a doctor, nurse practitioner, or physician???s certified teacher assistant for ongoing care. If your symptoms become worse or you do not improve as expected and you are unable to reach your usual health care provider, you should return to the Emergency Department. We are available 24 hours a day. TESS MOORE has been given the following list of patient education materials, prescriptions and follow-up instructions: Follow-up Instructions: With: Address: When: Aleksey Laureano [address] [place] [address], [address] [phone] [facility] (1) In 3 days 05/31/2024 In the event that this physician does not participate in your insurance network, please consult with your insurance company to find a nearby participating provider. Patient Education Materials: Hyperglycemia A MESSAGE TO ALL PATIENTS REGARDING OPIOIDS PRESCRIPTION OPIOIDS: WHAT YOU NEED TO KNOW Prescription opioids can be used to help relieve bsszbfpb-al-yqvyiu pain and are often prescribed following a [...] the Food and Drug Administration (www.fda.gov/Drugs/R esourcesForYou). ??? Visit www.cdc.gov/drugover dose to learn about the risks of opioids abuse and overdose. ??? If you believe you may be struggling with addiction, tell your health care profession (more content not included)... Normal [facility] HEMATOLOGYOrdered By: SYSTEM SYSTEM on 05-28-2024 Anisocytosis Ql (Bld) PRESENT *NA* (05/28/24 5:03 PM) Invalid Interpretation Code [facility] Basophils/100 WBC (Bld) 0.6 % Normal 0.0 - 2.0 % [facility] Basophils/Leukocytes Auto (Bld) [Pure # fraction] 0.0 E9/L Normal 0.0 - 0.2 E9/L [facility] Eosinophils (Bld) [#/Vol] 0.0 E9/L Normal 0.0 - 0.5 E9/L [facility] Eosinophils/100 WBC (Bld) 0.6 % Normal 0.0 - 8.0 % [facility] Erythrocyte distribution width (RBC) [Ratio] 18.3 % High 10.9 - 14.2 % [facility] Hematocrit (Bld) [Volume fraction] 40.9 % Normal 34.0 - 46.0 % [facility] Hemoglobin (Bld) [Mass/Vol] 13.3 g/dL Normal 12.0 - 16.0 gm/dL [facility] Hypochromia Auto Ql (Bld) PRESENT *NA* (05/28/24 5:03 PM) Invalid Interpretation Code [facility] Lymphocytes (Bld) [#/Vol] 1.3 E9/L Normal 1.0 - 4.0 E9/L [facility] Lymphocytes/100 WBC (Bld) 14.3 % Normal 14.0 - 50.0 % [facility] MCH (RBC) [Entitic mass] 23.3 pg Low 27.0 - 34.0 pg [facility] MCHC (RBC) [Mass/Vol] 32.4 g/dL Normal 31.4 - 36.0 gm/dL [facility] MCV (RBC) [Entitic vol] 72.0 fL Low 80.0 - 100.0 fL [facility] Monocytes (Bld) [#/Vol] 0.6 E9/L Normal 0.2 - 1.0 E9/L [facility] Monocytes/100 WBC (Bld) 6.8 % Normal 4.0 - 14.0 % [facility] Neutrophils (Bld) [#/Vol] 6.8 E9/L Normal 2.0 - 7.5 E9/L [facility] Neutrophils/100 WBC (Bld) 77.7 % High 36.0 - 75.0 % [facility] Platelet 252.0 E9/L Normal 150.0 - 500.0 E9/L [facility] Platelet mean volume (Bld) [Entitic vol] 8.0 fL Normal 6.4 - 10.8 fL [facility] RBC (Bld) [#/Vol] 5.7 E12/L Normal 4.3 - 5.9 E12/L [facility] RBC size Nom (Bld) SEE MORPHOLOGY *NA* (05/28/24 5:03 PM) Invalid Interpretation Code [facility] WBC corrected for nucl RBC Auto (Bld) [#/Vol] 8.8 E9/L Normal 4.0 - 11.0 E9/L [facility] Pre-Arrival Noteon Pre-Arrival Note Pre-Arrival Note Pre-Arrival Summary Name: , Current Date: 05/28/2024 16:51:27 EDT Gender: Female Date of : Age: 28 Pre-Arrival Type: EMS ETA: 05/28/2024 17:14:00 EDT Primary Care Physician: Presenting Problem: hyperglycemia Pre-Arrival User: Darnell Appiah Referring Source: Location: [place] Completion Date/Time: 05/28/2024 16:44:00 [facility] Emergency Department Pre-Hospital Report Form Vital Signs: Pre-Hospital Report: Treatment in Route: Response to Treatment: Misc. Issues: Normal [facility] SEROLOGYOrdered By: Onelia kurtz on 05-28-2024 Beta HCG ( test) Ql Negative (05/28/24 5:03 PM) Normal [facility] Man Sero eGFRon 05-28-2024 eGFR 124 mL/min/1.73 m2 Normal >=59 [facility] Comment on above: Performed By: #### 1 [id number] #### [facility] [address] [place] [address] HCG ( test) Ql (U)o n 11-26-2023 Interpretation and review of laboratory results Normal [facility] Preg Test, Ur Negative [facility] Glucose Glucometer (BldC) [M ass/Vol]on 10-01-2023 Glucose [Mass/Vol] 81 mg/dL Normal 65-99 [facility] Glucose Glucometer (BldC) [M ass/Vol]on 09-30-2023 Glucose [Mass/Vol] 134 mg/dL High 65-99 [facility] Glucose [Mass/Vol] 82 mg/dL Normal 65-99 [facility] Glucose [Mass/Vol] 70 mg/dL Normal 65-99 [facility] Glucose [Mass/Vol] 47 mg/dL Critically low 65-99 [facility] Glucose [Mass/Vol] 90 mg/dL Normal 65-99 [facility] CBC AND AUTO DIFFon 09-29-19 24 ABSOLUTE BASOPHIL 0.0 X10E9/L Normal 0.0-0.2 [facility] Comment on above: Performed By: #### C ALMA CMP, 2532-0, 3084-1, 56749-0 #### [facility] ([id number]) [address], [address] [place] [address] ABSOLUTE NEUTROPHIL 10.0 X10E9/L High 1.5-6.6 [facility] Comment on above: Performed By: #### Carrillo MARQUEZ CMP, 2532-0, 3084-1, 20727-3 #### [facility] ([id number]) [address], [address] [place] [address] Basophils/100 WBC (Bld) 0.3 % Normal [facility] Comment on above: Performed By: #### Carrillo BC, CMP, 2532-0, 3084-1, 41023-0 #### [facility] ([id number]) [address] [address] [place] [address] Eosinophils (Bld) [#/Vol] 0.1 10*3/uL Normal 0.0-0.4 [facility] Comment on above: Performed By: #### C BC, CMP, 2532-0, 3084-1, 38275-2 #### [facility] ([id number]) [address] [address] Eosinophils/100 WBC (Bld) 0.7 % Normal [facility] Comment on above: Performed By: #### Carrillo MARQUEZ, CMP, 2532-0, 3084-1, 40809-1 #### [facility] ([id number]) [address] [address] Erythrocyte distribution width (RBC) [Ratio] 16.1 % High 11.5-15.0 [facility] Comment on above: Performed By: #### Carrillo MARQUEZ, CMP, 2532-0, 3084-1, 11558-3 #### [facility] ([id number]) [address] [address] Hematocrit (Bld) [Volume fraction] 23.9 % Low 35-47 [facility] Comment on above: Performed By: #### Carrillo MARQUEZ, CMP, 2532-0, 3084-1, 71380-5 #### [facility] ([id number]) [address] [address] Hemoglobin (Bld) [Mass/Vol] 7.9 g/dL Low 11.7-15.5 [facility] Comment on above: Performed By: #### C BC, CMP, 2532-0, 3084-1, 17187-1 #### [facility] ([id number]) [address] [address] [place] [address] Lymphocytes (Bld) [#/Vol] 1.8 10*3/uL Normal 1.0-3.5 [facility] Comment on above: Performed By: #### C BC, CMP, 2532-0, 4-1, 06683-2 #### [facility] ([id number]) [address] [place] [address] Lymphocytes/100 WBC (Bld) 13.9 % Normal [facility] Comment on above: Performed By: #### C BC, CMP, 2532-0, 4-1, 09954-1 #### [facility] ([id number]) [address] [place] [address] MCH (RBC) [Entitic mass] 25.9 pg Low 27-34 [facility] Comment on above: Performed By: #### Carrillo BC, CMP, 2532-0, 4-1, 00118-3 #### [facility] ([id number]) [address] [place] [address] MCHC (RBC) [Mass/Vol] 33.2 g/dL Normal 32-36 [facility] Comment on above: Performed By: #### Carrillo BC, CMP, 2532-0, 4-1, 94563-5 #### [facility] ([id number]) [address] [place] [address] MCV (RBC) [Entitic vol] 78 fL Low 80-100 [facility] Comment on above: Performed By: #### C BC, CMP, 2532-0, 4-1, 73501-6 #### [facility] ([id number]) [address] [place] [address] Monocytes (Bld) [#/Vol] 1.1 10*3/uL High 0-0.9 [facility] Comment on above: Performed By: #### C BC, CMP, 2532-0, 4-1, 32175-1 #### [facility] ([id number]) [address] [place] [address] Monocytes/100 WBC (Bld) 8.7 % Normal [facility] Comment on above: Performed By: #### Carrillo BC, CMP, 2532-0, 3084-1, 20249-0 #### [facility] ([id number]) [address] [place] [address] Neutrophils/100 WBC (Bld) 76.4 % Normal [facility] Comment on above: Performed By: #### Carrillo BC, CMP, 2532-0, 3084-1, 63284-4 #### [facility] ([id number]) [address] [place] [address] Platelet mean volume (Bld) [Entitic vol] 8.6 fL Normal 7-12 [facility] Comment on above: Performed By: #### Carrillo BC, CMP, 2532-0, 4-1, 05809-6 #### [facility] ([id number]) [address] [place] [address] Platelets (Bld) [#/Vol] 277 10*3/uL Normal 150-450 [facility] Comment on above: Performed By: #### Carrillo MARQUEZ, CMP, 2532-0, 3084-1, 46332-3 #### [facility] ([id number]) [address] [place] [address] RBC COUNT 3.06 X10E12/L Low 3.80-5.20 [facility] Comment on above: Performed By: #### Carrillo BC, CMP, 2532-0, 3084-1, 70873-1 #### [facility] ([id number]) [address] [place] [address] WBC (Bld) [#/Vol] 13.0 10*3/uL High 4.0-11.0 [facility] Comment on above: Performed By: #### C BC, CMP, 2532-0, 3084-1, 84980-9 #### [facility] ([id number]) [address] [place] [address] COMPREHENSIVE METABOLIC PANE Mario Alberto 09-29-2023 Albumin [Mass/Vol] 2.7 g/dL Low 3.2-5.3 [facility] Comment on above: Performed By: #### C BC, CMP, 2532-0, 3084-1, 88580-2 #### [facility] ([id number]) [address] [place] [address] ALP [Catalytic activity/Vol] 111 U/L Normal 39-130 [facility] Comment on above: Performed By: #### C BC, CMP, 2532-0, 3084-1, 47086-8 #### [facility] ([id number]) [address] [place] [address] ALT [Catalytic activity/Vol] 10 U/L Normal 0-31 [facility] Comment on above: Performed By: #### Carrillo BC, CMP, 2532-0, 3084-1, 37012-9 #### [facility] ([id number]) [address] [place] [address] Anion gap [Moles/Vol] 10 mmol/L Normal 5-15 [facility] Comment on above: Performed By: #### C BC, CMP, 2532-0, 3084-1, 87026-7 #### [facility] ([id number]) [address] [place] [address] AST [Catalytic activity/Vol] 17 U/L Normal 0-41 [facility] Comment on above: Performed By: #### C BC, CMP, 2532-0, 3084-1, 18414-8 #### [facility] ([id number]) [address] [place] [address] Bilirubin [Mass/Vol] 0.3 mg/dL Normal 0.3-1.2 [facility] Comment on above: Performed By: #### Carrillo MARQUEZ CMP, 2532-0, 3084-1, 84469-5 #### [facility] ([id number]) [address] [place] [address] Calcium [Mass/Vol] 8.0 mg/dL Low 8.5-10.5 [facility] Comment on above: Performed By: #### Carrillo MARQUEZ CMP, 2532-0, 3084-1, 85114-0 #### [facility] ([id number]) [address], [facility] [address] [place] [address] Chloride [Moles/Vol] 108 mmol/L Normal 98-109 [facility] Comment on above: Performed By: #### Carrillo MARQUEZ CMP, 2532-0, 3084-1, 22921-8 #### [facility] ([id number]) [address] [place] [address] CO2 [Moles/Vol] 24 mmol/L Normal 22-32 [facility] Comment on above: Performed By: #### Carrillo MARQUEZ CMP, 2532-0, 3084-1, 50651-7 #### [facility] ([id number]) [address] [place] [address] Creatinine [Mass/Vol] 0.61 mg/dL Normal 0.40-1.00 [facility] Comment on above: Result Comment: METH OD TRACEABLE TO IDMS STANDARD Performed By: #### Carrillo MARQUEZ CMP, 2532-0, 3084-1, 81425-6 #### [facility] ([id number]) [address] [place] [address] eGFR (CKD-EPI) NON-RACE DEPENDENT >90 Normal >59 [facility] Comment on above: Result Comment: Reported eGFR is based on the CKD-EPI 2020 equation that does not use a race coefficient. Performed By: #### C ALMA, CMP, 2532-0, 3084-1, 38685-1 #### [facility] ([id number]) [address] [place] [address] Glucose [Mass/Vol] 95 mg/dL Normal 65-99 [facility] Comment on above: Performed By: #### Carrillo MARQUEZ, CMP, 2532-0, 3084-1, 97805-5 #### [facility] ([id number]) [address] [place] [address] Potassium [Moles/Vol] 4.2 mmol/L Normal 3.5-5.0 [facility] Comment on above: Performed By: #### Carrillo MARQUEZ, CMP, 2532-0, 3084-1, 92995-0 #### [facility] ([id number]) [address] [place] [address] Protein [Mass/Vol] 5.4 g/dL Low 6.0-8.0 [facility] Comment on above: Performed By: #### Carrillo MARQUEZ CMP, 2532-0, 3084-1, 61430-9 #### [facility] ([id number]) [address] [place] [address] Sodium [Moles/Vol] 142 mmol/L Normal 134-146 [facility] Comment on above: Performed By: #### Carrillo MARQUEZ, CMP, 2532-0, 3084-1, 41279-8 #### [facility] ([id number]) [address] [place] [address] Urea nitrogen [Mass/Vol] 17 mg/dL Normal 5-23 [facility] Comment on above: Performed By: #### Carrillo MARQUEZ, CMP, 2532-0, 3084-1, 90075-6 #### [facility] ([id number]) [address] [place] [address] Glucose Glucometer (BldC) [M ass/Vol]on 09-29-2023 Glucose [Mass/Vol] 156 mg/dL High 65-99 [facility] Glucose [Mass/Vol] 108 mg/dL High 65-99 [facility] Glucose [Mass/Vol] 88 mg/dL Normal 65-99 [facility] Glucose [Mass/Vol] 97 mg/dL Normal 65-99 [facility] CBC AND AUTO DIFFon 09-28-19 24 ABSOLUTE BASOPHIL 0.0 X10E9/L Normal 0.0-0.2 [facility] Comment on above: Performed By: #### Carrillo MARQUEZ CMP, 2532-0, 3084-1, 54046-1 #### [facility] ([id number]) [address] [place] [address] ABSOLUTE NEUTROPHIL 11.5 X10E9/L High 1.5-6.6 [facility] Comment on above: Performed By: #### Carrillo MARQUEZ, CMP, 2532-0, 3084-1, 11157-8 #### [facility] ([id number]) [address] [place] [address] Basophils/100 WBC (Bld) 0.2 % Normal [facility] Comment on above: Performed By: #### Carrillo MARQUEZ, CMP, 2532-0, 3084-1, 41294-0 #### [facility] ([id number]) [address] [place] [address] Eosinophils (Bld) [#/Vol] 0.0 10*3/uL Normal 0.0-0.4 [facility] Comment on above: Performed By: #### Carrillo BC, CMP, 2532-0, 3084-1, 94687-5 #### [facility] ([id number]) [address] [place] [address] Eosinophils/100 WBC (Bld) 0.2 % Normal [facility] Comment on above: Performed By: #### C BC, CMP, 2532-0, 3084-1, 21751-4 #### [facility] ([id number]) [address] [place] [address] Erythrocyte distribution width (RBC) [Ratio] 16.1 % High 11.5-15.0 [facility] Comment on above: Performed By: #### C BC, CMP, 2532-0, 3084-1, 45834-3 #### [facility] ([id number]) [address], [facility] [address] [place] [address] Hematocrit (Bld) [Volume fraction] 26.3 % Low 35-47 [facility] Comment on above: Performed By: #### C BC, CMP, 2532-0, 3084-1, 64244-0 #### [facility] ([id number]) [address], [facility] [address] [place] [address] Hemoglobin (Bld) [Mass/Vol] 8.3 g/dL Low 11.7-15.5 [facility] Comment on above: Performed By: #### C BC, CMP, 2532-0, 3084-1, 02246-6 #### [facility] ([id number]) [address], [facility] [address] [place] [address] Lymphocytes (Bld) [#/Vol] 1.5 10*3/uL Normal 1.0-3.5 [facility] Comment on above: Performed By: #### C BC, CMP, 2532-0, 3084-1, 62071-9 #### [facility] ([id number]) [address] [address] [place] [address] Lymphocytes/100 WBC (Bld) 10.3 % Normal [facility] Comment on above: Performed By: #### C BC, CMP, 2532-0, 3084-1, 00377-0 #### [facility] ([id number]) [address] [place] [address] MCH (RBC) [Entitic mass] 24.6 pg Low 27-34 [facility] Comment on above: Performed By: #### C ALMA, CMP, 2532-0, 3084-1, 29232-6 #### [facility] ([id number]) [address] [place] [address] MCHC (RBC) [Mass/Vol] 31.5 g/dL Low 32-36 [facility] Comment on above: Performed By: #### Carrillo MARQUEZ, CMP, 2532-0, 4-1, 77322-6 #### [facility] ([id number]) [address] [place] [address] MCV (RBC) [Entitic vol] 78 fL Low 80-100 [facility] Comment on above: Performed By: #### Carrillo MARQUEZ, CMP, 2532-0, 4-1, 64608-3 #### [facility] ([id number]) [address] [place] [address] Monocytes (Bld) [#/Vol] 1.0 10*3/uL High 0-0.9 [facility] Comment on above: Performed By: #### Carrillo MARQUEZ, CMP, 2532-0, 4-1, 42567-5 #### [facility] ([id number]) [address] [place] [address] Monocytes/100 WBC (Bld) 7.3 % Normal [facility] Comment on above: Performed By: #### C BC, CMP, 2532-0, 4-1, 59073-8 #### [facility] ([id number]) [address] [place] [address] Neutrophils/100 WBC (Bld) 82.0 % Normal [facility] Comment on above: Performed By: #### C BC, CMP, 2532-0, 3084-1, 59485-7 #### [facility] ([id number]) [address] [place] [address] Platelet mean volume (Bld) [Entitic vol] 9.1 fL Normal 7-12 [facility] Comment on above: Performed By: #### C BC, CMP, 2532-0, 3084-1, 25031-2 #### [facility] ([id number]) [address], [facility] [address] [place] [address] Platelets (Bld) [#/Vol] 289 10*3/uL Normal 150-450 [facility] Comment on above: Performed By: #### C BC, CMP, 2532-0, 3084-1, 78619-8 #### [facility] ([id number]) [address] [address] [place] [address] RBC COUNT 3.37 X10E12/L Low 3.80-5.20 [facility] Comment on above: Performed By: #### C BC, CMP, 2532-0, 3084-1, 57096-8 #### [facility] ([id number]) [address] [address] WBC (Bld) [#/Vol] 14.1 10*3/uL High 4.0-11.0 [facility] Comment on above: Performed By: #### C BC, CMP, 2532-0, 3084-1, 26356-6 #### [facility] ([id number]) [address] [place] [address] COMPREHENSIVE METABOLIC PANE Mario Alberto 09-28-2023 Albumin [Mass/Vol] 3.1 g/dL Low 3.2-5.3 [facility] Comment on above: Performed By: #### C BC, CMP, 2532-0, 3084-1, 42480-5 #### [facility] ([id number]) [address] [place] [address] ALP [Catalytic activity/Vol] 138 U/L High 39-130 [facility] Comment on above: Performed By: #### C BC, CMP, 2532-0, 3084-1, 44972-9 #### [facility] ([id number]) [address] [place] [address] ALT [Catalytic activity/Vol] 11 U/L Normal 0-31 [facility] Comment on above: Performed By: #### C BC, CMP, 2532-0, 3084-1, 61466-0 #### [facility] ([id number]) [address] [place] [address] Anion gap [Moles/Vol] 9 mmol/L Normal 5-15 [facility] Comment on above: Performed By: #### Carrillo BC, CMP, 2532-0, 3084-1, 96695-1 #### [facility] ([id number]) [address] [place] [address] AST [Catalytic activity/Vol] 22 U/L Normal 0-41 [facility] Comment on above: Performed By: #### Carrillo MARQUEZ, CMP, 2532-0, 3084-1, 12741-7 #### [facility] ([id number]) [address] [place] [address] Bilirubin [Mass/Vol] 0.3 mg/dL Normal 0.3-1.2 [facility] Comment on above: Performed By: #### C BC, CMP, 2532-0, 3084-1, 90858-1 #### [facility] ([id number]) [address] [place] [address] Calcium [Mass/Vol] 7.3 mg/dL Low 8.5-10.5 [facility] Comment on above: Performed By: #### C BC, CMP, 2532-0, 3084-1, 80528-3 #### [facility] ([id number]) [address] [place] [address] Chloride [Moles/Vol] 100 mmol/L Normal 98-109 [facility] Comment on above: Performed By: #### C BC, CMP, 2532-0, 3084-1, 80361-5 #### [facility] ([id number]) [address] [place] [address] CO2 [Moles/Vol] 23 mmol/L Normal 22-32 [facility] Comment on above: Performed By: #### C BC, CMP, 2532-0, 3084-1, 91821-8 #### [facility] ([id number]) [address] [place] [address] Creatinine [Mass/Vol] 0.73 mg/dL Normal 0.40-1.00 [facility] Comment on above: Result Comment: METH OD TRACEABLE TO IDMS STANDARD Performed By: #### C ALMA, CMP, 2532-0, 4-1, 19866-5 #### [facility] ([id number]) [address] [place] [address] eGFR (CKD-EPI) NON-RACE DEPENDENT >90 Normal >59 [facility] Comment on above: Result Comment: Reported eGFR is based on the CKD-EPI 2021 equation that does not use a race coefficient. Performed By: #### C BC, CMP, 2532-0, 3084-1, 54305-4 #### [facility] ([id number]) [address] [place] [address] Glucose [Mass/Vol] 114 mg/dL High 65-99 [facility] Comment on above: Performed By: #### C BC, CMP, 2532-0, 3084-1, 47080-7 #### [facility] ([id number]) [address] [place] [address] Potassium [Moles/Vol] 3.9 mmol/L Normal 3.5-5.0 [facility] Comment on above: Performed By: #### C ALMA, CMP, 2532-0, 3084-1, 39131-9 #### [facility] ([id number]) [address] [place] [address] Protein [Mass/Vol] 6.2 g/dL Normal 6.0-8.0 [facility] Comment on above: Performed By: #### Carrillo MARQUEZ, CMP, 2532-0, 3084-1, 33307-0 #### [facility] ([id number]) [address] [place] [address] Sodium [Moles/Vol] 132 mmol/L Low 134-146 [facility] Comment on above: Performed By: #### Carrillo MARQUEZ, CMP, 2532-0, 3084-1, 20703-2 #### [facility] ([id number]) [address] [place] [address] Urea nitrogen [Mass/Vol] 16 mg/dL Normal 5-23 [facility] Comment on above: Performed By: #### Carrillo MARQUEZ, CMP, 2532-0, 3084-1, 06085-9 #### [facility] ([id number]) [address] [place] [address] Glucose Glucometer (BldC) [M ass/Vol]on 09-28-2023 Glucose [Mass/Vol] 143 mg/dL High 65-99 [facility] Glucose [Mass/Vol] 139 mg/dL High 65-99 [facility] Glucose [Mass/Vol] 183 mg/dL High 65-99 [facility] Glucose [Mass/Vol] 178 mg/dL High 65-99 [facility] Glucose [Mass/Vol] 139 mg/dL High 65-99 [facility] Glucose [Mass/Vol] 139 mg/dL High 65-99 [facility] Glucose [Mass/Vol] 123 mg/dL High 65-99 [facility] Glucose [Mass/Vol] 130 mg/dL High 65-99 [facility] Glucose [Mass/Vol] 120 mg/dL High 65-99 [facility] Glucose [Mass/Vol] 141 mg/dL High 65-99 [facility] Glucose [Mass/Vol] 123 mg/dL High 65-99 [facility] Glucose [Mass/Vol] 115 mg/dL High 65-99 [facility] Glucose [Mass/Vol] 114 mg/dL High 65-99 [facility] Glucose [Mass/Vol] 113 mg/dL High 65-99 [facility] Glucose [Mass/Vol] 113 mg/dL High 65-99 [facility] MAGNESIUMon 09-28-2023 Magnesium [Mass/Vol] 6.5 mg/dL Critically high 1.8-2.6 [facility] Comment on above: Performed By: #### U PCR #### [facility] ([id number]) [address] [place] [address] POTASSIUMon 09-28-2023 Potassium [Moles/Vol] 4.3 mmol/L Normal 3.5-5.0 [facility] Comment on above: Performed By: #### C BC, CMP, 2532-0, 3084-1, 79886-5 #### [facility] ([id number]) [address] [place] [address] Potassium [Moles/Vol] 4.4 mmol/L Normal 3.5-5.0 [facility] Comment on above: Performed By: #### U PCR #### [facility] ([id number]) [address] [place] [address] XR CHEST 1 VWon 09-28-2023 XR CHEST 1 VW XR CHEST 1 VW History: Oxygen desaturation Technique: A portable single frontal view the chest was obtained. Comparison: None Findings: Study is compromised by technique and patient body habitus. There is no definite evidence for active cardiovascular or pulmonary disease. Impression: Chest negative for an active process. Finalized by May Dubose MD on 09/28/2023 1:40 AM Normal [facility] CBC AND AUTO DIFFon 09-27-19 ABSOLUTE BASOPHIL 0.0 X10E9/L Normal 0.0-0.2 [facility] Comment on above: Performed By: #### D LE #### [facility] ([id number]) [address] [address] [place] [address] ABSOLUTE NEUTROPHIL 15.2 X10E9/L High 1.5-6.6 [facility] Comment on above: Performed By: #### D LE #### [facility] ([id number]) [address] [facility] [address] [address] Basophils/100 WBC (Bld) 0.1 % Normal [facility] Comment on above: Performed By: #### D LE #### [facility] ([id number]) [address], [address] [address] Eosinophils (Bld) [#/Vol] 0.0 10*3/uL Normal 0.0-0.4 [facility] Comment on above: Performed By: #### D LE #### [facility] ([id number]) [address] [address] Eosinophils/100 WBC (Bld) 0.0 % Normal [facility] Comment on above: Performed By: #### D LE #### [facility] ([id number]) [address] [address] Erythrocyte distribution width (RBC) [Ratio] 15.7 % High 11.5-15.0 [facility] Comment on above: Performed By: #### D LE #### [facility] ([id number]) [address] [place] [address] Hematocrit (Bld) [Volume fraction] 24.7 % Low 35-47 [facility] Comment on above: Performed By: #### D LE #### [facility] ([id number]) [address] [place] [address] Hemoglobin (Bld) [Mass/Vol] 7.9 g/dL Low 11.7-15.5 [facility] Comment on above: Performed By: #### D LE #### [facility] ([id number]) [address], [address] [place] [address] Lymphocytes (Bld) [#/Vol] 1.4 10*3/uL Normal 1.0-3.5 [facility] Comment on above: Performed By: #### D LE #### [facility] ([id number]) [address], [address] [place] [address] Lymphocytes/100 WBC (Bld) 8.0 % Normal [facility] Comment on above: Performed By: #### D LE #### [facility] ([id number]) [address], [address] [place] [address] MCH (RBC) [Entitic mass] 25.1 pg Low 27-34 [facility] Comment on above: Performed By: #### D LE #### [facility] ([id number]) [address], [address] [place] [address] MCHC (RBC) [Mass/Vol] 32.0 g/dL Normal 32-36 [facility] Comment on above: Performed By: #### D LE #### [facility] ([id number]) [address], [address] [place] [address] MCV (RBC) [Entitic vol] 78 fL Low 80-100 [facility] Comment on above: Performed By: #### D LE #### [facility] ([id number]) [address], [address] [place] [address] Monocytes (Bld) [#/Vol] 0.9 10*3/uL Normal 0-0.9 [facility] Comment on above: Performed By: #### D LE #### [facility] ([id number]) [address] [place] [address] Monocytes/100 WBC (Bld) 5.4 % Normal [facility] Comment on above: Performed By: #### D LE #### [facility] ([id number]) [address], [address] [place] [address] Neutrophils/100 WBC (Bld) 86.5 % Normal [facility] Comment on above: Performed By: #### D LE #### [facility] ([id number]) [address], [address] [place] [address] Platelet mean volume (Bld) [Entitic vol] 8.9 fL Normal 7-12 [facility] Comment on above: Performed By: #### D LE #### [facility] ([id number]) [address], [address] [place] [address] Platelets (Bld) [#/Vol] 246 10*3/uL Normal 150-450 [facility] Comment on above: Performed By: #### D LE #### [facility] ([id number]) [address], [address] [place] [address] RBC COUNT 3.15 X10E12/L Low 3.80-5.20 [facility] Comment on above: Performed By: #### D LE #### [facility] ([id number]) [address] [place] [address] WBC (Bld) [#/Vol] 17.6 10*3/uL High 4.0-11.0 [facility] Comment on above: Performed By: #### D LE #### [facility] ([id number]) [address] [place] [address] ABSOLUTE BASOPHIL 0.0 X10E9/L Normal 0.0-0.2 [facility] Comment on above: Performed By: #### 2 345-7 #### [facility] ([id number]) [address] [place] [address] ABSOLUTE NEUTROPHIL 13.2 X10E9/L High 1.5-6.6 [facility] Comment on above: Performed By: #### 2 345-7 #### [facility] ([id number]) [address] [place] [address] Basophils/100 WBC (Bld) 0.2 % Normal [facility] Comment on above: Performed By: #### 2 345-7 #### [facility] ([id number]) [address] [place] [address] Eosinophils (Bld) [#/Vol] 0.0 10*3/uL Normal 0.0-0.4 [facility] Comment on above: Performed By: #### 2 345-7 #### [facility] ([id number]) [address] [place] [address] Eosinophils/100 WBC (Bld) 0.1 % Normal [facility] Comment on above: Performed By: #### 2 345-7 #### [facility] ([id number]) [address] [place] [address] Erythrocyte distribution width (RBC) [Ratio] 15.8 % High 11.5-15.0 [facility] Comment on above: Performed By: #### 2 345-7 #### [facility] ([id number]) [address] [place] [address] Hematocrit (Bld) [Volume fraction] 25.1 % Low 35-47 [facility] Comment on above: Performed By: #### 2 345-7 #### [facility] ([id number]) [address] [place] [address] Hemoglobin (Bld) [Mass/Vol] 7.9 g/dL Low 11.7-15.5 [facility] Comment on above: Performed By: #### 2 345-7 #### [facility] ([id number]) [address] [place] [address] Lymphocytes (Bld) [#/Vol] 1.3 10*3/uL Normal 1.0-3.5 [facility] Comment on above: Performed By: #### 2 345-7 #### [facility] ([id number]) [address] [place] [address] Lymphocytes/100 WBC (Bld) 8.0 % Normal [facility] Comment on above: Performed By: #### 2 345-7 #### [facility] ([id number]) [address] [place] [address] MCH (RBC) [Entitic mass] 25.2 pg Low 27-34 [facility] Comment on above: Performed By: #### 2 345-7 #### [facility] ([id number]) [address] [place] [address] MCHC (RBC) [Mass/Vol] 31.5 g/dL Low 32-36 [facility] Comment on above: Performed By: #### 2 345-7 #### [facility] ([id number]) [address] [place] [address] MCV (RBC) [Entitic vol] 80 fL Normal 80-100 [facility] Comment on above: Performed By: #### 2 345-7 #### [facility] ([id number]) [address] [place] [address] Monocytes (Bld) [#/Vol] 1.2 10*3/uL High 0-0.9 [facility] Comment on above: Performed By: #### 2 345-7 #### [facility] ([id number]) [address] [place] [address] Monocytes/100 WBC (Bld) 7.9 % Normal [facility] Comment on above: Performed By: #### 2 345-7 #### [facility] ([id number]) [address] [place] [address] Neutrophils/100 WBC (Bld) 83.8 % Normal [facility] Comment on above: Performed By: #### 2 345-7 #### [facility] ([id number]) [address] [place] [address] Platelet mean volume (Bld) [Entitic vol] 9.4 fL Normal 7-12 [facility] Comment on above: Performed By: #### 2 345-7 #### [facility] ([id number]) [address] [place] [address] Platelets (Bld) [#/Vol] 229 10*3/uL Normal 150-450 [facility] Comment on above: Performed By: #### 2 345-7 #### [facility] ([id number]) [address] [place] [address] RBC COUNT 3.14 X10E12/L Low 3.80-5.20 [facility] Comment on above: Performed By: #### 2 345-7 #### [facility] ([id number]) [address] [place] [address] WBC (Bld) [#/Vol] 15.8 10*3/uL High 4.0-11.0 [facility] Comment on above: Performed By: #### 2 345-7 #### [facility] ([id number]) [address] [place] [address] COMPREHENSIVE METABOLIC PANE Mario Alberto 09-27-2023 Albumin [Mass/Vol] 2.9 g/dL Low 3.2-5.3 [facility] Comment on above: Performed By: #### D LE #### [facility] ([id number]) [address] [place] [address] ALP [Catalytic activity/Vol] 135 U/L High 39-130 [facility] Comment on above: Performed By: #### D LE #### [facility] ([id number]) [address] [place] [address] ALT [Catalytic activity/Vol] 10 U/L Normal 0-31 [facility] Comment on above: Performed By: #### D LE #### [facility] ([id number]) [address] [place] [address] Anion gap [Moles/Vol] 11 mmol/L Normal 5-15 [facility] Comment on above: Performed By: #### D LE #### [facility] ([id number]) [address] [place] [address] AST [Catalytic activity/Vol] 21 U/L Normal 0-41 [facility] Comment on above: Performed By: #### D LE #### [facility] ([id number]) [address] [place] [address] Bilirubin [Mass/Vol] 0.3 mg/dL Normal 0.3-1.2 [facility] Comment on above: Performed By: #### D LE #### [facility] ([id number]) [address] [place] [address] Calcium [Mass/Vol] 7.6 mg/dL Low 8.5-10.5 [facility] Comment on above: Performed By: #### D LE #### [facility] ([id number]) [address] [place] [address] Chloride [Moles/Vol] 102 mmol/L Normal 98-109 [facility] Comment on above: Performed By: #### D LE #### [facility] ([id number]) [address] [place] [address] CO2 [Moles/Vol] 19 mmol/L Low 22-32 [facility] Comment on above: Performed By: #### D LE #### [facility] ([id number]) [address] [place] [address] Creatinine [Mass/Vol] 0.78 mg/dL Normal 0.40-1.00 [facility] Comment on above: Result Comment: METH OD TRACEABLE TO IDMS STANDARD Performed By: #### D LE #### [facility] ([id number]) [address] [place] [address] eGFR (CKD-EPI) NON-RACE DEPENDENT >90 Normal >59 [facility] Comment on above: Result Comment: Reported eGFR is based on the CKD-EPI 2020 equation that does not use a race coefficient. Performed By: #### D LE #### [facility] ([id number]) [address] [place] [address] Glucose [Mass/Vol] 120 mg/dL High 65-99 [facility] Comment on above: Performed By: #### D LE #### [facility] ([id number]) [address] [address] [place] [address] Potassium [Moles/Vol] 4.5 mmol/L Normal 3.5-5.0 [facility] Comment on above: Performed By: #### D LE #### [facility] ([id number]) [address] [place] [address] Protein [Mass/Vol] 5.6 g/dL Low 6.0-8.0 [facility] Comment on above: Performed By: #### D LE #### [facility] ([id number]) [address] [place] [address] Sodium [Moles/Vol] 132 mmol/L Low 134-146 [facility] Comment on above: Performed By: #### D LE #### [facility] ([id number]) [address] [place] [address] Urea nitrogen [Mass/Vol] 18 mg/dL Normal 5-23 [facility] Comment on above: Performed By: #### D LE #### [facility] ([id number]) [address] [place] [address] Albumin [Mass/Vol] 2.7 g/dL Low 3.2-5.3 [facility] Comment on above: Performed By: #### 2 345-7 #### [facility] ([id number]) [address] [place] [address] ALP [Catalytic activity/Vol] 136 U/L High 39-130 [facility] Comment on above: Performed By: #### 2 345-7 #### [facility] ([id number]) [address] [place] [address] ALT [Catalytic activity/Vol] 10 U/L Normal 0-31 [facility] Comment on above: Performed By: #### 2 345-7 #### [facility] ([id number]) [address] [place] [address] Anion gap [Moles/Vol] 20 mmol/L High 5-15 [facility] Comment on above: Performed By: #### 2 345-7 #### [facility] ([id number]) [address] [place] [address] AST [Catalytic activity/Vol] 17 U/L Normal 0-41 [facility] Comment on above: Performed By: #### 2 345-7 #### [facility] ([id number]) [address] [place] [address] Bilirubin [Mass/Vol] 0.4 mg/dL Normal 0.3-1.2 [facility] Comment on above: Performed By: #### 2 345-7 #### [facility] ([id number]) [address] [place] [address] Calcium [Mass/Vol] 7.6 mg/dL Low 8.5-10.5 [facility] Comment on above: Performed By: #### 2 345-7 #### [facility] ([id number]) [address] [place] [address] Chloride [Moles/Vol] 102 mmol/L Normal 98-109 [facility] Comment on above: Performed By: #### 2 345-7 #### [facility] ([id number]) [address] [place] [address] CO2 [Moles/Vol] 11 mmol/L Low 22-32 [facility] Comment on above: Performed By: #### 2 345-7 #### [facility] ([id number]) [address] [place] [address] Creatinine [Mass/Vol] 0.88 mg/dL Normal 0.40-1.00 [facility] Comment on above: Result Comment: METH OD TRACEABLE TO IDMS STANDARD Performed By: #### 2 345-7 #### [facility] ([id number]) [address] [place] [address] eGFR (CKD-EPI) NON-RACE DEPENDENT >90 Normal >59 [facility] Comment on above: Result Comment: Reported eGFR is based on the CKD-EPI 2020 equation that does not use a race coefficient. Performed By: #### 2 345-7 #### [facility] ([id number]) [address] [place] [address] Glucose [Mass/Vol] 146 mg/dL High 65-99 [facility] Comment on above: Performed By: #### 2 345-7 #### [facility] ([id number]) [address] [place] [address] Potassium [Moles/Vol] 4.7 mmol/L Normal 3.5-5.0 [facility] Comment on above: Performed By: #### 2 345-7 #### [facility] ([id number]) [address] [place] [address] Protein [Mass/Vol] 5.4 g/dL Low 6.0-8.0 [facility] Comment on above: Performed By: #### 2 345-7 #### [facility] ([id number]) [address] [place] [address] Sodium [Moles/Vol] 133 mmol/L Low 134-146 [facility] Comment on above: Performed By: #### 2 345-7 #### [facility] ([id number]) [address] [place] [address] Urea nitrogen [Mass/Vol] 18 mg/dL Normal 5-23 [facility] Comment on above: Performed By: #### 2 345-7 #### [facility] ([id number]) [address] [place] [address] CORD ARTERIAL GASon 09-27-19 24 BASE,DEFICIT 14.0 MMOL/L High 0.0-2.0 [facility] Comment on above: Performed By: #### 2 345-7 #### [facility] ([id number]) [address] [place] [address] HCO3 (Bld) [Moles/Vol] 19.7 mmol/L Low 22-26 [facility] Comment on above: Performed By: #### 2 345-7 #### [facility] ([id number]) [address] [place] [address] Oxygen (Bld) [Partial pressure] mm[Hg] Low 12-24 [facility] Comment on above: Performed By: #### 2 345-7 #### [facility] ([id number]) [address] [place] [address] PCO2 76.4 MMHG High 40.8-57.6 [facility] Comment on above: Performed By: #### 2 345-7 #### [facility] ([id number]) [address] [place] [address] pH (Bld) 7.020 [pH] Low 7.24-7.30 [facility] Comment on above: Performed By: #### 2 345-7 #### [facility] ([id number]) [address] [place] [address] SAMPLE SITE ArtCord Normal [facility] Comment on above: Performed By: #### 2 345-7 #### [facility] ([id number]) [address] [place] [address] CORD VENOUS GASon 09-27-2023 LEIGHTON'S TEST Normal [facility] Comment on above: Performed By: #### 2 345-7 #### [facility] ([id number]) [address] [place] [address] BASE,DEFICIT 15.0 MMOL/L High 0.0-2.0 [facility] Comment on above: Performed By: #### 2 345-7 #### [facility] ([id number]) [address] [place] [address] HCO3 (Bld) [Moles/Vol] 15.0 mmol/L Low 20.0-24.0 [facility] Comment on above: Performed By: #### 2 345-7 #### [facility] ([id number]) [address] [place] [address] INSP. O2 CONC. 21 % Normal [facility] Comment on above: Performed By: #### 2 345-7 #### [facility] ([id number]) [address] [place] [address] Oxygen (Bld) [Partial pressure] 23 mm[Hg] Normal 22-35 [facility] Comment on above: Performed By: #### 2 345-7 #### [facility] ([id number]) [address] [place] [address] Oxygen saturation in Blood 24.0 % Low 32.5-66.3 [facility] Comment on above: Performed By: #### 2 345-7 #### [facility] ([id number]) [address] [place] [address] OXYGEN SOURCE RoomAir Normal [facility] Comment on above: Performed By: #### 2 345-7 #### [facility] ([id number]) [address] [place] [address] PCO2 48.4 MMHG High 32.6-43.8 [facility] Comment on above: Performed By: #### 2 345-7 #### [facility] ([id number]) [address] [place] [address] pH (Bld) 7.098 [pH] Low 7.25-7.37 [facility] Comment on above: Performed By: #### 2 345-7 #### [facility] ([id number]) [address] [place] [address] SAMPLE SITE VenCord Normal [facility] Comment on above: Performed By: #### 2 345-7 #### [facility] ([id number]) [address] [place] [address] SAMPLE TYPE UMBILICALCORD Normal [facility] Comment on above: Performed By: #### 2 345-7 #### [facility] ([id number]) [address] [place] [address] Glucose Glucometer (BldC) [M ass/Vol]on 09-27-2023 Glucose [Mass/Vol] 112 mg/dL High 65-99 [facility] Glucose [Mass/Vol] 106 mg/dL High 65-99 [facility] Glucose [Mass/Vol] 111 mg/dL High 65-99 [facility] Glucose [Mass/Vol] 110 mg/dL High 65-99 [facility] Glucose [Mass/Vol] 93 mg/dL Normal 65-99 [facility] Glucose [Mass/Vol] 132 mg/dL High 65-99 [facility] Glucose [Mass/Vol] 118 mg/dL High 65-99 [facility] Glucose [Mass/Vol] 182 mg/dL High 65-99 [facility] Glucose [Mass/Vol] 217 mg/dL High 65-99 [facility] Glucose [Mass/Vol] 178 mg/dL High 65-99 [facility] Glucose [Mass/Vol] 187 mg/dL High 65-99 [facility] Glucose [Mass/Vol] 201 mg/dL High 65-99 [facility] Glucose [Mass/Vol] 195 mg/dL High 65-99 [facility] Glucose [Mass/Vol] 177 mg/dL High 65-99 [facility] Glucose [Mass/Vol] 118 mg/dL High 65-99 [facility] Glucose [Mass/Vol] 123 mg/dL High 65-99 [facility] CBC AND AUTO DIFFon 07-19-20 24 ABSOLUTE BASOPHIL 0.0 X10E9/L Normal 0.0-0.2 [facility] Comment on above: Performed By: #### 2 345-7 #### [facility] ([id number]) [address] [place] [address] ABSOLUTE NEUTROPHIL 13.5 X10E9/L High 1.5-6.6 [facility] Comment on above: Performed By: #### 2 345-7 #### [facility] ([id number]) [address] [place] [address] Basophils/100 WBC (Bld) 0.3 % Normal [facility] Comment on above: Performed By: #### 2 345-7 #### [facility] ([id number]) [address] [place] [address] Eosinophils (Bld) [#/Vol] 0.0 10*3/uL Normal 0.0-0.4 [facility] Comment on above: Performed By: #### 2 345-7 #### [facility] ([id number]) [address] [place] [address] Eosinophils/100 WBC (Bld) 0.1 % Normal [facility] Comment on above: Performed By: #### 2 345-7 #### [facility] ([id number]) [address] [place] [address] Erythrocyte distribution width (RBC) [Ratio] 15.5 % High 11.5-15.0 [facility] Comment on above: Performed By: #### 2 345-7 #### [facility] ([id number]) [address] [place] [address] Hematocrit (Bld) [Volume fraction] 29.2 % Low 35-47 [facility] Comment on above: Performed By: #### 2 345-7 #### [facility] ([id number]) [address] [place] [address] Hemoglobin (Bld) [Mass/Vol] 9.3 g/dL Low 11.7-15.5 [facility] Comment on above: Performed By: #### 2 345-7 #### [facility] ([id number]) [address] [place] [address] Lymphocytes (Bld) [#/Vol] 1.4 10*3/uL Normal 1.0-3.5 [facility] Comment on above: Performed By: #### 2 345-7 #### [facility] ([id number]) [address] [place] [address] Lymphocytes/100 WBC (Bld) 9.1 % Normal [facility] Comment on above: Performed By: #### 2 345-7 #### [facility] ([id number]) [address] [place] [address] MCH (RBC) [Entitic mass] 25.1 pg Low 27-34 [facility] Comment on above: Performed By: #### 2 345-7 #### [facility] ([id number]) [address] [place] [address] MCHC (RBC) [Mass/Vol] 31.9 g/dL Low 32-36 [facility] Comment on above: Performed By: #### 2 345-7 #### [facility] ([id number]) [address] [place] [address] MCV (RBC) [Entitic vol] 79 fL Low 80-100 [facility] Comment on above: Performed By: #### 2 345-7 #### [facility] ([id number]) [address] [place] [address] Monocytes (Bld) [#/Vol] 0.7 10*3/uL Normal 0-0.9 [facility] Comment on above: Performed By: #### 2 345-7 #### [facility] ([id number]) [address] [place] [address] Monocytes/100 WBC (Bld) 4.7 % Normal [facility] Comment on above: Performed By: #### 2 345-7 #### [facility] ([id number]) [address] [place] [address] Neutrophils/100 WBC (Bld) 85.8 % Normal [facility] Comment on above: Performed By: #### 2 345-7 #### [facility] ([id number]) [address] [place] [address] Platelet mean volume (Bld) [Entitic vol] 9.4 fL Normal 7-12 [facility] Comment on above: Performed By: #### 2 345-7 #### [facility] ([id number]) [address] [place] [address] Platelets (Bld) [#/Vol] 266 10*3/uL Normal 150-450 [facility] Comment on above: Performed By: #### 2 345-7 #### [facility] ([id number]) [address] [place] [address] RBC COUNT 3.70 X10E12/L Low 3.80-5.20 [facility] Comment on above: Performed By: #### 2 345-7 #### [facility] ([id number]) [address] [place] [address] WBC (Bld) [#/Vol] 15.8 10*3/uL High 4.0-11.0 [facility] Comment on above: Performed By: #### 2 345-7 #### [facility] ([id number]) [address] [place] [address] ABSOLUTE BASOPHIL 0.1 X10E9/L Normal 0.0-0.2 [facility] Comment on above: Performed By: #### 2 345-7 #### [facility] ([id number]) [address] [place] [address] ABSOLUTE NEUTROPHIL 9.1 X10E9/L High 1.5-6.6 [facility] Comment on above: Performed By: #### 2 345-7 #### [facility] ([id number]) [address] [place] [address] Basophils/100 WBC (Bld) 0.8 % Normal [facility] Comment on above: Performed By: #### 2 345-7 #### [facility] ([id number]) [address] [place] [address] Eosinophils (Bld) [#/Vol] 0.0 10*3/uL Normal 0.0-0.4 [facility] Comment on above: Performed By: #### 2 345-7 #### [facility] ([id number]) [address] [place] [address] Eosinophils/100 WBC (Bld) 0.2 % Normal [facility] Comment on above: Performed By: #### 2 345-7 #### [facility] ([id number]) [address] [place] [address] Erythrocyte distribution width (RBC) [Ratio] 15.5 % High 11.5-15.0 [facility] Comment on above: Performed By: #### 2 345-7 #### [facility] ([id number]) [address] [place] [address] Hematocrit (Bld) [Volume fraction] 27.0 % Low 35-47 [facility] Comment on above: Performed By: #### 2 345-7 #### [facility] ([id number]) [address] [place] [address] Hemoglobin (Bld) [Mass/Vol] 8.5 g/dL Low 11.7-15.5 [facility] Comment on above: Performed By: #### 2 345-7 #### [facility] ([id number]) [address] [place] [address] Lymphocytes (Bld) [#/Vol] 1.8 10*3/uL Normal 1.0-3.5 [facility] Comment on above: Performed By: #### 2 345-7 #### [facility] ([id number]) [address] [place] [address] Lymphocytes/100 WBC (Bld) 15.0 % Normal [facility] Comment on above: Performed By: #### 2 345-7 #### [facility] ([id number]) [address] [place] [address] MCH (RBC) [Entitic mass] 25.1 pg Low 27-34 [facility] Comment on above: Performed By: #### 2 345-7 #### [facility] ([id number]) [address], [address] [place] [address] MCHC (RBC) [Mass/Vol] 31.3 g/dL Low 32-36 [facility] Comment on above: Performed By: #### 2 345-7 #### [facility] ([id number]) [address], [address] [place] [address] MCV (RBC) [Entitic vol] 80 fL Normal 80-100 [facility] Comment on above: Performed By: #### 2 345-7 #### [facility] ([id number]) [address], [address] [place] [address] Monocytes (Bld) [#/Vol] 0.9 10*3/uL Normal 0-0.9 [facility] Comment on above: Performed By: #### 2 345-7 #### [facility] ([id number]) [address], [address] [place] [address] Monocytes/100 WBC (Bld) 7.5 % Normal [facility] Comment on above: Performed By: #### 2 345-7 #### [facility] ([id number]) [address], [address] [place] [address] Neutrophils/100 WBC (Bld) 76.5 % Normal [facility] Comment on above: Performed By: #### 2 345-7 #### [facility] ([id number]) [address], [address] [place] [address] Platelet mean volume (Bld) [Entitic vol] 9.1 fL Normal 7-12 [facility] Comment on above: Performed By: #### 2 345-7 #### [facility] ([id number]) [address], [address] [place] [address] Platelets (Bld) [#/Vol] 156 10*3/uL Normal 150-450 [facility] Comment on above: Performed By: #### 2 345-7 #### [facility] ([id number]) [address], [address] [place] [address] RBC COUNT 3.37 [id number]/L Low 3.80-5.20 [facility] Comment on above: Performed By: #### 2 345-7 #### [facility] ([id number]) [address] [place] [address] WBC (Bld) [#/Vol] 11.9 10*3/uL High 4.0-11.0 [facility] Comment on above: Performed By: #### 2 345-7 #### [facility] ([id number]) [address], [address] [place] [address] COMPREHENSIVE METABOLIC PANE Mario Alberto 09-26-2023 Albumin [Mass/Vol] 3.2 g/dL Normal 3.2-5.3 [facility] Comment on above: Performed By: #### 2 345-7 #### [facility] ([id number]) [address], [address] [place] [address] ALP [Catalytic activity/Vol] 175 U/L High 39-130 [facility] Comment on above: Performed By: #### 2 345-7 #### [facility] ([id number]) [address], [address] [place] [address] ALT [Catalytic activity/Vol] 11 U/L Normal 0-31 [facility] Comment on above: Performed By: #### 2 345-7 #### [facility] ([id number]) [address], [address] [place] [address] Anion gap [Moles/Vol] 21 mmol/L High 5-15 [facility] Comment on above: Performed By: #### 2 345-7 #### [facility] ([id number]) [address], [address] [place] [address] AST [Catalytic activity/Vol] 15 U/L Normal 0-41 [facility] Comment on above: Performed By: #### 2 345-7 #### [facility] ([id number]) [address] [place] [address] Bilirubin [Mass/Vol] 0.6 mg/dL Normal 0.3-1.2 [facility] Comment on above: Performed By: #### 2 345-7 #### [facility] ([id number]) [address] [place] [address] Calcium [Mass/Vol] 8.3 mg/dL Low 8.5-10.5 [facility] Comment on above: Performed By: #### 2 345-7 #### [facility] ([id number]) [address] [place] [address] Chloride [Moles/Vol] 99 mmol/L Normal 98-109 [facility] Comment on above: Performed By: #### 2 345-7 #### [facility] ([id number]) [address] [place] [address] CO2 [Moles/Vol] 13 mmol/L Low 22-32 [facility] Comment on above: Performed By: #### 2 345-7 #### [facility] ([id number]) [address] [place] [address] Creatinine [Mass/Vol] 0.78 mg/dL Normal 0.40-1.00 [facility] Comment on above: Result Comment: METH OD TRACEABLE TO IDMS STANDARD Performed By: #### 2 345-7 #### [facility] ([id number]) [address] [place] [address] eGFR (CKD-EPI) NON-RACE DEPENDENT >90 Normal >59 [facility] Comment on above: Result Comment: Reported eGFR is based on the CKD-EPI 2020 equation that does not use a race coefficient. Performed By: #### 2 345-7 #### [facility] ([id number]) [address] [place] [address] Glucose [Mass/Vol] 130 mg/dL High 65-99 [facility] Comment on above: Performed By: #### 2 345-7 #### [facility] ([id number]) [address] [place] [address] Potassium [Moles/Vol] 4.9 mmol/L Normal 3.5-5.0 [facility] Comment on above: Performed By: #### 2 345-7 #### [facility] ([id number]) [address] [place] [address] Protein [Mass/Vol] 6.4 g/dL Normal 6.0-8.0 [facility] Comment on above: Performed By: #### 2 345-7 #### [facility] ([id number]) [address] [place] [address] Sodium [Moles/Vol] 133 mmol/L Low 134-146 [facility] Comment on above: Performed By: #### 2 345-7 #### [facility] ([id number]) [address] [place] [address] Urea nitrogen [Mass/Vol] 14 mg/dL Normal 5-23 [facility] Comment on above: Performed By: #### 2 345-7 #### [facility] ([id number]) [address] [place] [address] Albumin [Mass/Vol] 2.6 g/dL Low 3.2-5.3 [facility] Comment on above: Performed By: #### 2 345-7 #### [facility] ([id number]) [address] [place] [address] ALP [Catalytic activity/Vol] 131 U/L High 39-130 [facility] Comment on above: Performed By: #### 2 345-7 #### [facility] ([id number]) [address] [place] [address] ALT [Catalytic activity/Vol] 7 U/L Normal 0-31 [facility] Comment on above: Performed By: #### 2 345-7 #### [facility] ([id number]) [address] [place] [address] Anion gap [Moles/Vol] 15 mmol/L Normal 5-15 [facility] Comment on above: Performed By: #### 2 345-7 #### [facility] ([id number]) [address] [place] [address] AST [Catalytic activity/Vol] 15 U/L Normal 0-41 [facility] Comment on above: Performed By: #### 2 345-7 #### [facility] ([id number]) [address] [place] [address] Bilirubin [Mass/Vol] 0.5 mg/dL Normal 0.3-1.2 [facility] Comment on above: Performed By: #### 2 345-7 #### [facility] ([id number]) [address] [place] [address] Calcium [Mass/Vol] 8.1 mg/dL Low 8.5-10.5 [facility] Comment on above: Performed By: #### 2 345-7 #### [facility] ([id number]) [address] [place] [address] Chloride [Moles/Vol] 99 mmol/L Normal 98-109 [facility] Comment on above: Performed By: #### 2 345-7 #### [facility] ([id number]) [address] [place] [address] CO2 [Moles/Vol] 14 mmol/L Low 22-32 [facility] Comment on above: Performed By: #### 2 345-7 #### [facility] ([id number]) [address] [place] [address] Creatinine [Mass/Vol] 0.49 mg/dL Normal 0.40-1.00 [facility] Comment on above: Result Comment: METH OD TRACEABLE TO IDMS STANDARD Performed By: #### 2 345-7 #### [facility] ([id number]) [address] [place] [address] eGFR (CKD-EPI) NON-RACE DEPENDENT >90 Normal >59 [facility] Comment on above: Result Comment: Reported eGFR is based on the CKD-EPI 2020 equation that does not use a race coefficient. Performed By: #### 2 345-7 #### [facility] ([id number]) [address] [place] [address] Glucose [Mass/Vol] 87 mg/dL Normal 65-99 [facility] Comment on above: Performed By: #### 2 345-7 #### [facility] ([id number]) [address] [place] [address] Potassium [Moles/Vol] 4.3 mmol/L Normal 3.5-5.0 [facility] Comment on above: Performed By: #### 2 345-7 #### [facility] ([id number]) [address] [place] [address] Protein [Mass/Vol] 5.3 g/dL Low 6.0-8.0 [facility] Comment on above: Performed By: #### 2 345-7 #### [facility] ([id number]) [address] [place] [address] Sodium [Moles/Vol] 128 mmol/L Low 134-146 [facility] Comment on above: Performed By: #### 2 345-7 #### [facility] ([id number]) [address] [place] [address] Urea nitrogen [Mass/Vol] 9 mg/dL Normal 5-23 [facility] Comment on above: Performed By: #### 2 345-7 #### [facility] ([id number]) [address] [place] [address] Glucose Glucometer (BldC) [M ass/Vol]on 09-26-2023 Glucose [Mass/Vol] 116 mg/dL High 65-99 [facility] Glucose [Mass/Vol] 131 mg/dL High 65-99 [facility] Glucose [Mass/Vol] 118 mg/dL High 65-99 [facility] Glucose [Mass/Vol] 114 mg/dL High 65-99 [facility] Glucose [Mass/Vol] 107 mg/dL High 65-99 [facility] Glucose [Mass/Vol] 107 mg/dL High 65-99 [facility] Glucose [Mass/Vol] 96 mg/dL Normal 65-99 [facility] Glucose [Mass/Vol] 96 mg/dL Normal 65-99 [facility] Glucose [Mass/Vol] 102 mg/dL High 65-99 [facility] Glucose [Mass/Vol] 113 mg/dL High 65-99 [facility] Glucose [Mass/Vol] 119 mg/dL High 65-99 [facility] COMPLETE BLOOD COUNTon 09-24 Erythrocyte distribution width (RBC) [Ratio] 15.7 % High 11.5-15.0 [facility] Comment on above: Performed By: #### Carrillo MARQUEZ CMP, 2532-0, 4-1, 52466-2 #### [facility] ([id number]) [address] [place] [address] Hematocrit (Bld) [Volume fraction] 31.0 % Low 35-47 [facility] Comment on above: Performed By: #### Carrillo MARQUEZ CMP, 2531-0, 3083-1, 96807-7 #### [facility] ([id number]) [address] [place] [address] Hemoglobin (Bld) [Mass/Vol] 10.1 g/dL Low 11.7-15.5 [facility] Comment on above: Performed By: #### Carrillo MARQUEZ CMP, 2532-0, 4-1, 86683-8 #### [facility] ([id number]) [address] [place] [address] MCH (RBC) [Entitic mass] 25.3 pg Low 27-34 [facility] Comment on above: Performed By: #### Carrillo MARQUEZ CMP, 2532-0, 4-1, 19438-7 #### [facility] ([id number]) [address] [place] [address] MCHC (RBC) [Mass/Vol] 32.7 g/dL Normal 32-36 [facility] Comment on above: Performed By: #### Carrillo BC, CMP, 2532-0, 3084-1, 93418-2 #### [facility] ([id number]) [address], [facility] [address] [place] [address] MCV (RBC) [Entitic vol] 77 fL Low 80-100 [facility] Comment on above: Performed By: #### Carrillo BC, CMP, 2532-0, 3084-1, 97512-5 #### [facility] ([id number]) [address], [facility] [address] [place] [address] Platelet mean volume (Bld) [Entitic vol] 8.8 fL Normal 7-12 [facility] Comment on above: Performed By: #### Carrillo BC, CMP, 2532-0, 3084-1, 92678-2 #### [facility] ([id number]) [address], [facility] [address] [place] [address] Platelets (Bld) [#/Vol] 271 10*3/uL Normal 150-450 [facility] Comment on above: Performed By: #### Carrillo BC, CMP, 2532-0, 3084-1, 68860-1 #### [facility] ([id number]) [address] [place] [address] RBC COUNT 4.01 X10E12/L Normal 3.80-5.20 [facility] Comment on above: Performed By: #### C BC, CMP, 2532-0, 3084-1, 49785-2 #### [facility] ([id number]) [address] [place] [address] WBC (Bld) [#/Vol] 13.8 10*3/uL High 4.0-11.0 [facility] Comment on above: Performed By: #### C BC, CMP, 2532-0, 3084-1, 16955-9 #### [facility] ([id number]) [address] [place] [address] COMPREHENSIVE METABOLIC PANE Mario Alberto 09-25-2023 Albumin [Mass/Vol] 3.3 g/dL Normal 3.2-5.3 [facility] Comment on above: Performed By: #### C BC, CMP, 2532-0, 3084-1, 61729-3 #### [facility] ([id number]) [address] [place] [address] ALP [Catalytic activity/Vol] 178 U/L High 39-130 [facility] Comment on above: Performed By: #### C BC, CMP, 2532-0, 3084-1, 59668-1 #### [facility] ([id number]) [address], [address] [place] [address] ALT [Catalytic activity/Vol] 10 U/L Normal 0-31 [facility] Comment on above: Performed By: #### C BC, CMP, 2532-0, 3084-1, 20044-3 #### [facility] ([id number]) [address], [address] [place] [address] Anion gap [Moles/Vol] 13 mmol/L Normal 5-15 [facility] Comment on above: Performed By: #### C BC, CMP, 2532-0, 3084-1, 51471-7 #### [facility] ([id number]) [address] [place] [address] AST [Catalytic activity/Vol] 15 U/L Normal 0-41 [facility] Comment on above: Performed By: #### C BC, CMP, 2532-0, 3084-1, 26993-2 #### [facility] ([id number]) [address] [place] [address] Bilirubin [Mass/Vol] 0.7 mg/dL Normal 0.3-1.2 [facility] Comment on above: Performed By: #### C BC, CMP, 2532-0, 3084-1, 56557-9 #### [facility] ([id number]) [address] [place] [address] Calcium [Mass/Vol] 8.7 mg/dL Normal 8.5-10.5 [facility] Comment on above: Performed By: #### Carrillo MARQUEZ, CMP, 2532-0, 3084-1, 67747-6 #### [facility] ([id number]) [address] [place] [address] Chloride [Moles/Vol] 103 mmol/L Normal 98-109 [facility] Comment on above: Performed By: #### Carrillo MARQUEZ, CMP, 2532-0, 3084-1, 45543-4 #### [facility] ([id number]) [address] [place] [address] CO2 [Moles/Vol] 19 mmol/L Low 22-32 [facility] Comment on above: Performed By: #### Carrillo MARQUEZ, CMP, 2532-0, 3084-1, 35019-1 #### [facility] ([id number]) [address] [place] [address] Creatinine [Mass/Vol] 0.50 mg/dL Normal 0.40-1.00 [facility] Comment on above: Result Comment: METH OD TRACEABLE TO IDMS STANDARD Performed By: #### C BC, CMP, 2532-0, 3084-1, 04672-3 #### [facility] ([id number]) [address] [place] [address] eGFR (CKD-EPI) NON-RACE DEPENDENT >90 Normal >59 [facility] Comment on above: Result Comment: Reported eGFR is based on the CKD-EPI 2020 equation that does not use a race coefficient. Performed By: #### C CONI MARQUEZ, 2532-0, 3084-1, 62892-0 #### [facility] ([id number]) [address] [place] [address] Glucose [Mass/Vol] 105 mg/dL High 65-99 [facility] Comment on above: Performed By: #### C ALMA, CMP, 2532-0, 3084-1, 68670-0 #### [facility] ([id number]) [address] [place] [address] Potassium [Moles/Vol] 4.2 mmol/L Normal 3.5-5.0 [facility] Comment on above: Performed By: #### Carrillo MARQUEZ CMP, 2532-0, 3084-1, 85449-6 #### [facility] ([id number]) [address] [place] [address] Protein [Mass/Vol] 6.6 g/dL Normal 6.0-8.0 [facility] Comment on above: Performed By: #### Carrillo MARQUEZ CMP, 2532-0, 3084-1, 54974-7 #### [facility] ([id number]) [address] [place] [address] Sodium [Moles/Vol] 135 mmol/L Normal 134-146 [facility] Comment on above: Performed By: #### Carrillo MARQUEZ, CMP, 2532-0, 3084-1, 13462-7 #### [facility] ([id number]) [address] [place] [address] Urea nitrogen [Mass/Vol] 9 mg/dL Normal 5-23 [facility] Comment on above: Performed By: #### Carrillo MARQUEZ, CMP, 2532-0, 3084-1, 07258-5 #### [facility] ([id number]) [address] [place] [address] DRUG SCREEN, URINEon 024 AMPHETAMINE/METHAMP Negative Normal NEG [facility] Comment on above: Result Comment: AMPH /METH screening cut off = 1000 ng/mL Performed By: #### D LE #### [facility] ([id number]) [address] [place] [address] BARBITURATES Negative Normal NEG [facility] Comment on above: Result Comment: Helen iturates screening cut off value = 200 ng/mL Performed By: #### D LE #### [facility] ([id number]) [address] [place] [address] BENZODIAZEPINES Negative Normal NEG [facility] Comment on above: Result Comment: Efrain odiazepines screening cut off value = 200 ng/mL Performed By: #### D LE #### [facility] ([id number]) [address] [place] [address] CANNABINOIDS Negative Normal NEG [facility] Comment on above: Result Comment: Bobbi abinoids/THC screening cut off value = 50 ng/mL Performed By: #### D LE #### [facility] ([id number]) [address] [place] [address] COCAINE METABOLITE Negative Normal NEG [facility] Comment on above: Result Comment: Coca ine screening cut off value = 300 ng/mL Performed By: #### D LE #### [facility] ([id number]) [address] [place] [address] ECSTASY Negative Normal NEG [facility] Comment on above: Result Comment: Ecst asy screening cut off value = 500 ng/mL This report is intended for use in clinical monitoring or management of patients. Performed By: #### D LE #### [facility] ([id number]) [address] [place] [address] METHADONE Negative Normal NEG [facility] Comment on above: Result Comment: Meth adone screening cut off value = 300 ng/mL. Performed By: #### D LE #### [facility] ([id number]) [address] [place] [address] OPIATES Negative Normal NEG [facility] Comment on above: Result Comment: Opia marisa screening cut off value = 300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 activity/Vol] 80 U/L Normal 26-192 [facility] Comment on above: Performed By: #### T 7, LIPID, TSH, CMADM, BNP, CMP #### [facility] [address] [address] [address] Rosemary Ames CK.MB [Mass/Vol] 0.56 ng/mL Normal <=3.60 [facility] Comment on above: Performed By: #### T 7, LIPID, TSH, CMADM, BNP, CMP #### [facility] [address] [address] [address] Rosemary Ames HSTROP 5.3 pg/mL Normal 4.0-51.3 [facility] Comment on above: Result Comment: CUT- OFF POINTS HAVE BEEN ESTABLISHED BASED ON THE FOURTH UNIVERSAL DEFINITIONS OF MYOCARDIAL INFARCTION. THE UPPER REFERENCE LIMIT (URL) OF TROPONIN, DEFINED THE 99TH PERCENTILE OF cTnI DISTRIBUTION IN A REFERENCE POPULATION, HAS BEEN CONFIRMED THE DECISION THRESHOLD FOR OR DIAGNOSIS. Performed By: #### T 7, LIPID, TSH, CMADM, BNP, CMP #### [facility] [address] [address] [address] Rosemary Ames RADHA 26 ng/mL Normal 9-82 [facility] Comment on above: Performed By: #### T 7, LIPID, TSH, CMADM, BNP, CMP #### [facility] [address] [address] [address] Rosemary Ames CBC AUTO DIFFon 12-10-2021 BASO # 0.0 103/ul Normal 0.0-0.1 [facility] Comment on above: Performed By: #### E RUR #### [facility] [address] [address] [address] Rosemary Ames Basophils/100 WBC (Bld) 0.4 % Normal 0.2-2.0 [facility] Comment on above: Performed By: #### E RUR #### [facility] [address] [address] [address] Rosemary Ames EO # 0.1 103/ul Normal 0.0-0.7 [facility] Comment on above: Performed By: #### E RUR #### [facility] [address] [place] [address] Dr. Rosemary Ames Eosinophils/100 WBC (Bld) 1.0 % Normal 0.9-7.0 [facility] Comment on above: Performed By: #### E RUR #### [facility] [address] [place] [address] Dr. Rosemary Ames Erythrocyte distribution width (RBC) [Ratio] 13.7 % Normal 11.0-15.0 [facility] Comment on above: Performed By: #### E RUR #### [facility] [address] [place] [address] Dr. Rosemary Ames Hematocrit (Bld) [Volume fraction] 40.9 % Normal 36.0-48.0 [facility] Comment on above: Performed By: #### E RUR #### [facility] [address] [place] [address] Dr. Rosemary Ames Hemoglobin (Bld) [Mass/Vol] 13.0 g/dL Normal 12.0-16.0 [facility] Comment on above: Performed By: #### E RUR #### [facility] [address] [place] [address] Dr. Rosemary Ames IG # 0.03 10e3/ul Normal 0.00-0.03 [facility] Comment on above: Performed By: #### E RUR #### [facility] [address] [place] [address] Dr. Rosemary Ames IG % 0.4 % Normal 0.0-0.5 [facility] Comment on above: Performed By: #### E RUR #### [facility] [address] [place] [address] Dr. Rosemary Ames LYMPH # 2.4 103/ul Normal 1.2-3.8 [facility] Comment on above: Performed By: #### E RUR #### [facility] [address] [place] [address] Dr. Rosemary Ames Lymphocytes/100 WBC (Bld) 30.3 % Normal 20.5-60.0 [facility] Comment on above: Performed By: #### E RUR #### [facility] [address] [place] [address] Dr. Rosemary Ames MANUAL DIFF REQ NO Normal [facility] Comment on above: Performed By: #### E RUR #### [facility] [address] [place] [address] Dr. Rosemary Ames MCH (RBC) [Entitic mass] 25.8 pg Critically low 26.7-34.0 [facility] Comment on above: Performed By: #### E RUR #### [facility] [address] [place] [address] Dr. Rosemary Ames MCHC (RBC) [Mass/Vol] 31.8 g/dL Normal 29.9-35.2 [facility] Comment on above: Performed By: #### E RUR #### [facility] [address] [place] [address] Dr. Rosemary Ames MCV (RBC) [Entitic vol] 81.2 fL Normal 81.0-99.0 [facility] Comment on above: Performed By: #### E RUR #### [facility] [address] [place] [address] Dr. Rosemary Ames MONO # 0.5 103/ul Normal 0.3-0.8 [facility] Comment on above: Performed By: #### E RUR #### [facility] [address] [place] [address] Dr. Rosemary Ames Monocytes/100 WBC (Bld) 6.1 % Normal 1.7-12.0 [facility] Comment on above: Performed By: #### E RUR #### [facility] [address] [place] [address] Dr. Rosemary Ames NEUT # 5.0 103/ul Normal 1.4-6.5 [facility] Comment on above: Performed By: #### E RUR #### [facility] [address] [place] [address] Dr. Rosemary Ames Neutrophils/100 WBC (Bld) 61.8 % Normal 43.0-75.0 [facility] Comment on above: Performed By: #### E RUR #### [facility] [address] [place] [address] Dr. Rosemary Ames Platelet mean volume (Bld) [Entitic vol] 9.9 fL Normal 9.5-13.5 [facility] Comment on above: Performed By: #### E RUR #### [facility] [address] [place] [address] Dr. Rosemary Ames PLT 284 103/ul Normal 150-450 [facility] Comment on above: Performed By: #### E RUR #### [facility] [address] [place] [address] Dr. Rosemary Ames RBC 5.04 106/ul Normal 4.20-5.40 [facility] Comment on above: Performed By: #### E RUR #### [facility] [address] [place] [address] Dr. Rosemary Ames WBC 8.0 103/ul Normal 4.0-11.0 [facility] Comment on above: Performed By: #### E RUR #### [facility] [address] [place] [address] Dr. Rosemary Ames FREE THYROXINE INDEX T7on FTI 2.31 Normal 1.30-4.50 [facility] Comment on above: Performed By: #### T 7, LIPID, TSH, CMADM, BNP, CMP #### [facility] [address] [place] [address] Dr. Rosemary Ames T3U 30.0 % Normal 30.0-39.0 [facility] Comment on above: Performed By: #### T 7, LIPID, TSH, CMADM, BNP, CMP #### [facility] [address] [place] [address] Dr. Rosemary Ames T4 [Mass/Vol] 7.70 ug/dL Normal 4.80-13.90 [facility] Comment on above: Performed By: #### T 7, LIPID, TSH, CMADM, BNP, CMP #### [facility] [address] [place] [address] Dr. Rosemary Ames GLYCOHEMOGLOBIN A1Con 2021 ADA RECOMMENDATION SEE BELOW Normal [facility] Comment on above: Result Comment: ADA RECOMMENDED LIMIT 4.0 - 6.0 ADA THERAPEUTIC TARGET < 7.0 ACTION SUGGESTED > 7.0 Performed By: #### A 1C #### [facility] [address] [address] [address] Rosemary Ames Glucose [Mass/Vol] 243 mg/dL Normal [facility] Comment on above: Performed By: #### A 1C #### [facility] [address] [address] [address] Rosemary Ames HbA1c (Bld) [Mass fraction] 10.1 % Critically high 4.5-6.2 [facility] Comment on above: Performed By: #### A 1C #### [facility] [address] [address] [address] Rosemary Aems IRONon 12-10-2021 Iron [Mass/Vol] 29.0 ug/dL Critically low 50.0-170.0 [facility] Comment on above: Performed By: #### A 1C #### [facility] [address] [address] [address] Rosemary Ames LIPID PROFILEon 12-10-2021 CHOL-HDL RATIO NORM SEE BELOW Normal [facility] Comment on above: Result Comment: 3.3 - 4.4 LOW RISK 4.4 - 7.1 AVERAGE RISK 7.1 - 11.0 MODERATE RISK >11.0 HIGH RISK Performed By: #### T 7, LIPID, TSH, CMADM, BNP, CMP #### [facility] [address] [address] [address] Rosemary Ames Cholesterol [Mass/Vol] 184 mg/dL Normal <=200 [facility] Comment on above: Performed By: #### T 7, LIPID, TSH, CMADM, BNP, CMP #### [facility] [address] [address] [address] Rosemary Ames Cholesterol in HDL [Mass/Vol] 44 mg/dL Normal 40-60 [facility] Comment on above: Performed By: #### T 7, LIPID, TSH, CMADM, BNP, CMP #### [facility] [address] [address] [address] Rosemary Ames Cholesterol in LDL [Mass/Vol] 94.6 mg/dL Normal [facility] Comment on above: Performed By: #### T 7, LIPID, TSH, CMADM, BNP, CMP #### [facility] [address] [address] [address] Rosemary Ames Cholesterol.total/Chol esterol in HDL [Mass ratio] 4.2 {ratio} Normal [facility] Comment on above: Performed By: #### T 7, LIPID, TSH, CMADM, BNP, CMP #### [facility] [address] [address] [address] Rosemary Ames HDL NORMAL > or = 60 mg/dl - LOW CARDIOVASCULAR RISK <40 mg/dl - HIGH CARDIOVASCULAR RISK Normal [facility] Comment on above: Performed By: #### T 7, LIPID, TSH, CMADM, BNP, CMP #### [facility] [address] [place] [address] Dr. Rosemary Ames LDL CALC NORMAL SEE BELOW Normal [facility] Comment on above: Result Comment: <100 mg/dl OPTIMAL 100 - 129 mg/dl NEAR OR ABOVE OPTIMAL 130 - 159 mg/dl BORDERLINE HIGH 160 - 189 mg/dl HIGH >190 mg/dl VERY HIGH Performed By: #### T 7, LIPID, TSH, CMADM, BNP, CMP #### [facility] [address] [address] [address] Rosemary Ames Triglyceride [Mass/Vol] 227 mg/dL Critically high <=150 [facility] Comment on above: Performed By: #### T 7, LIPID, TSH, CMADM, BNP, CMP #### [facility] [address] [address] [address] Rosemary Ames VLDL CALC 45.4 mg/dL Normal [facility] Comment on above: Performed By: #### T 7, LIPID, TSH, CMADM, BNP, CMP #### [facility] [address] [place] [address] Dr. Rosemary Ames PROF 14(COMP METB)on 022 Albumin [Mass/Vol] 4.1 g/dL Normal 3.4-5.0 [facility] Comment on above: Performed By: #### T 7, LIPID, TSH, CMADM, BNP, CMP #### [facility] [address] [place] [address] Dr. Rosemary Ames Albumin/Globulin [Mass ratio] 1.1 {ratio} Normal [facility] Comment on above: Performed By: #### T 7, LIPID, TSH, CMADM, BNP, CMP #### [facility] [address] [place] [address] Dr. Rosemary Ames ALP [Catalytic activity/Vol] 83 U/L Normal 46-116 [facility] Comment on above: Performed By: #### T 7, LIPID, TSH, CMADM, BNP, CMP #### [facility] [address] [place] [address] Dr. Rosemary Ames ALT [Catalytic activity/Vol] 166 U/L Critically high 14-59 [facility] Comment on above: Performed By: #### T 7, LIPID, TSH, CMADM, BNP, CMP #### [facility] [address] [place] [address] Dr. Rosemary Ames Anion gap [Moles/Vol] 13.9 mmol/L Normal [facility] Comment on above: Performed By: #### T 7, LIPID, TSH, CMADM, BNP, CMP #### [facility] [address] [place] [address] Dr. Rosemary Ames AST [Catalytic activity/Vol] 97 U/L Critically high 15-37 [facility] Comment on above: Performed By: #### T 7, LIPID, TSH, CMADM, BNP, CMP #### [facility] [address] [place] [address] Dr. Rosemary Ames Bilirubin [Mass/Vol] 0.7 mg/dL Normal 0.2-1.0 [facility] Comment on above: Performed By: #### T 7, LIPID, TSH, CMADM, BNP, CMP #### [facility] [address] [place] [address] Dr. Rosemary Ames Calcium [Mass/Vol] 9.2 mg/dL Normal 8.5-10.1 [facility] Comment on above: Performed By: #### T 7, LIPID, TSH, CMADM, BNP, CMP #### [facility] [address] [address] [address] Rosemary Ames Chloride [Moles/Vol] 101 mmol/L Normal 98-107 [facility] Comment on above: Performed By: #### T 7, LIPID, TSH, CMADM, BNP, CMP #### [facility] [address] [address] [address] Rosemary Ames CO2 [Moles/Vol] 27.5 mmol/L Normal 21.0-32.0 [facility] Comment on above: Performed By: #### T 7, LIPID, TSH, CMADM, BNP, CMP #### [facility] [address] [place] [address] Dr. Rosemary Ames Creatinine [Mass/Vol] 0.65 mg/dL Normal 0.55-1.02 [facility] Comment on above: Performed By: #### T 7, LIPID, TSH, CMADM, BNP, CMP #### [facility] [address] [address] [address] Rosemary Ames EGFR-AF MALTESE >60 Normal >=60 [facility] Comment on above: Performed By: #### T 7, LIPID, TSH, CMADM, BNP, CMP #### [facility] [address] [address] [address] Rosemary Ames EGFR-NON AF MALTESE >60 Normal >=60 [facility] Comment on above: Performed By: #### T 7, LIPID, TSH, CMADM, BNP, CMP #### [facility] [address] [address] [address] Rosemary Ames Globulin (S) [Mass/Vol] 3.8 g/dL Normal [facility] Comment on above: Performed By: #### T 7, LIPID, TSH, CMADM, BNP, CMP #### [facility] [address] [address] [address] Rosemary Ames Glucose [Mass/Vol] 299 mg/dL Critically high 74-106 [facility] Comment on above: Performed By: #### T 7, LIPID, TSH, CMADM, BNP, CMP #### [facility] [address] [place] [address] Dr. Rosemary Ames Potassium [Moles/Vol] 4.4 mmol/L Normal 3.5-5.1 [facility] Comment on above: Performed By: #### T 7, LIPID, TSH, CMADM, BNP, CMP #### [facility] [address] [place] [address] Dr. Rosemary Ames Protein [Mass/Vol] 7.9 g/dL Normal 6.4-8.2 [facility] Comment on above: Performed By: #### T 7, LIPID, TSH, CMADM, BNP, CMP #### [facility] [address] [place] [address] Dr. Rosemary Ames Sodium [Moles/Vol] 138 mmol/L Normal 136-145 [facility] Comment on above: Performed By: #### T 7, LIPID, TSH, CMADM, BNP, CMP #### [facility] [address] [place] [address] Dr. Rosemary Ames Urea nitrogen [Mass/Vol] 8.0 mg/dL Normal 7.0-18.0 [facility] Comment on above: Performed By: #### T 7, LIPID, TSH, CMADM, BNP, CMP #### [facility] [address] [place] [address] Dr. Rosemary Ames Urea nitrogen/Creatinine [Mass ratio] 12.3 mg/mg Normal [facility] Comment on above: Performed By: #### T 7, LIPID, TSH, CMADM, BNP, CMP #### [facility] [address] [place] [address] Dr. Rosemary Ames TSHon 12-10-2021 TSH 0.921 uIU/mL Normal 0.358-3.740 [facility] Comment on above: Performed By: #### T 7, LIPID, TSH, CMADM, BNP, CMP #### [facility] [address] [place] [address] Dr. Rosemary Ames MG MAMM DIAGNOSTIC 3D JESICA CA Don 11-29-2021 MG MAMM DIAGNOSTIC 3D JESICA CAD Patient: TESS ASHLEY. Exam Date: 11/29/2021 : 1995 Gender:F Ordering : DR ALEKSEY LAUREANO . Admission #: [id number] Family : Order #: [id number] CLICK HERE TO VIEW EXAM RADIOLOGY REPORT [...] breast cancer at age 41. LOCATION: [facility] BREAST COMPOSITION: Heterogeneously dense,which may obscure small [...] M.D. on 11/29/2021 at 09:59 Normal [facility] US BREAST RIGHT LIMITEDon US BREAST RIGHT LIMITED Patient: TESS AHSLEY. Exam Date: 11/29/2021 : 1995 Gender:F Ordering : DR ALEKSEY LAUREANO . Admission #: [id number] Family : Order #: [id number] CLICK HERE TO VIEW EXAM RADIOLOGY REPORT [...] breast cancer at age 41. LOCATION: [facility] BREAST COMPOSITION: Heterogeneously dense,which may obscure small [...] M.D. on 11/29/2021 at 09:59 Normal [facility] MRI BRAIN WO CONon MRI BRAIN WO [...] SEBLE BIGGS Date: 2021-09-13 12:13 Normal [facility] Glucose (Bld) [Mass/Vol]on 0 08-27-2021 Glucose [Mass/Vol] 188 mg/dL [facility] Interpretation and review of laboratory results Abnormal [facility] HbA1c (Bld) [Mass fraction]o n 08-27-2021 Interpretation and review of laboratory results Abnormal [facility] POC Hemoglobin A1Con 022 HbA1c (Bld) [Mass fraction] 7.7 % Abnormal 4 - 6 % [facility] SEROLOGYOrdered By: Fabian echeverria on 08-24-2021 Beta hCG Ql Negative (08/24/21 11:29 PM) Normal [facility] Man Sero XR KNEE LT 4V or [...] PRINGLE Date: 2021-08-15 16:18 Normal [facility] US KIDNEYS BLADDERon US KIDNEYS BLADDER [...] MAY PILLAI Date: 2021-06-13 10:16 Normal [facility] Testosterone Free and Total by LC-MS/MSon 02-04-2021 Sex Hormone Binding Globulin 11 nmol/L Low 30-135 [facility] Comment on above: Result Comment: REFE RENCE INTERVAL: Sex Hormone Binding Globulin Access complete set of age- and/or gender-specific reference intervals for this test in the [facility] Laboratory Test Directory (LiveTop). Testosterone, Free LC-MS/MS 9.1 pg/mL Critically high 0.8-7.4 [facility] Comment on above: Result Comment: To c [...] reference intervals for this test in the [employer] Test Directory (LiveTop). This test was developed and its performance characteristics determined by [facility]. It has not been cleared or approved by the [place] Food and Drug Administration. This test was performed in a CLIA certified laboratory and is intended for clinical purposes. Performed By: [facility] [address] [place] [id number] [employer] Operator: Kiersten Jones MD Testosterone, LC-MS/MS 35 ng/dL Normal 9-55 [facility] Comment on above: Result Comment: Oscar rutherford Testosterone, Females 18 years and older Premenopausal 9-55 ng/dL Postmenopausal 5-32 ng/dL REFERENCE INTERVAL: Testosterone, LC-MS/MS Access complete set of age- and/or gender-specific reference intervals for this test in the [employer] Test Directory (LiveTop). This test was developed and its performance characteristics determined by [employer]. It has not been cleared or approved by the [place] Food and Drug Administration. This test was performed in a CLIA certified laboratory and is intended for clinical purposes. Cortisol Daljit 01-31-2021 Cortisol AM 11.0 ug/dL Normal 6.2-19.4 [facility] Comment on above: Performed By: #### C AKSHAT #### [facility] [address] [place] [id number] Vital Signs Date Time Vital Sign Value Performing Clinician Facility 11-25-2024 10:35-0400 Body mass index (BMI) [Ratio] 48.29 kg/m2 [employer] Work Phone: [facility] 11-25-2024 10:35-0400 Body weight 112.15 kg [employer] Phone: [facility] 11-25-2024 10:35-0400 Diastolic blood pressure 82 mm[Hg] [employer] Phone: [facility] 11-25-2024 10:35-0400 Systolic blood pressure 136 mm[Hg] Mario Zoraida DO Work Phone: [facility] 10-20-2024 15:22-0400 Body height 152.4 cm Mario Zoraida DO Work Phone: [facility] 10-20-2024 15:22-0400 Body mass index (BMI) [Ratio] 48.24 kg/m2 Mario Zoraida DO Work Phone: [facility] 10-20-2024 15:22-0400 Body weight 112.04 kg Mario Zoraida DO Work Phone: [facility] 10-20-2024 15:22-0400 Diastolic blood pressure 78 mm[Hg] Mario Zoraida DO Work Phone: [facility] 10-20-2024 15:22-0400 Systolic blood pressure 128 mm[Hg] Mario Zoraida DO Work Phone: [facility] 05-31-2024 10:40-0400 Body height 152.4 cm Leana Burr MD Work Phone: [facility] 05-31-2024 10:40-0400 Body mass index (BMI) [Ratio] 48.63 kg/m2 Leana Burr MD Work Phone: [facility] 05-31-2024 10:40-0400 Body weight 112.95 kg Leana Burr MD Work Phone: [facility] 05-31-2024 10:40-0400 Diastolic blood pressure 85 mm[Hg] Leana Burr MD Work Phone: [facility] 05-31-2024 10:40-0400 Heart rate 86 /min Leana Burr MD Work Phone: [facility] 05-31-2024 10:40-0400 Systolic blood pressure 128 mm[Hg] Leana Burr MD Work Phone: [employer] [facility] 05-28-2024 19:00-0400 Diastolic blood pressure 80 mm[Hg] [facility] 05-28-2024 19:00-0400 Mean blood pressure 103 mm[Hg] [facility] 05-28-2024 19:00-0400 Systolic blood pressure 148 mm[Hg] [facility] 05-28-2024 18:33-0400 Diastolic blood pressure 83 mm[Hg] [facility] 05-28-2024 18:33-0400 Systolic blood pressure 139 mm[Hg] [facility] 05-28-2024 18:33-0400 Blood Pressure Location [facility] 05-28-2024 18:30-0400 Heart rate 108 /min [facility] 05-28-2024 18:30-0400 SaO2% (BldA) [Mass fraction] 98 % [facility] 05-28-2024 18:00-0400 Respiratory rate 16 /min [facility] 05-28-2024 17:59-0400 Heart rate 102 /min [facility] 05-28-2024 17:59-0400 SaO2% (BldA) [Mass fraction] 99 % [facility] 05-28-2024 16:54-0400 Body temperature 98.24 [degF] [facility] 05-28-2024 16:54-0400 Diastolic blood pressure 71 mm[Hg] [facility] 05-28-2024 16:54-0400 Heart rate 93 /min [facility] 05-28-2024 16:54-0400 Respiratory rate 18 /min [facility] 05-28-2024 16:54-0400 SaO2% (BldA) [Mass fraction] 96 % [facility] 05-28-2024 16:54-0400 Systolic blood pressure 133 mm[Hg] [facility] 01-26-2024 11:17-0500 Body mass index (BMI) [Ratio] 49.1 kg/m2 Mario Zoraida DO Work Phone: [facility] 01-26-2024 11:17-0500 Body weight 114.03 kg Mario Zoraida DO Work Phone: [facility] 01-26-2024 11:17-0500 Diastolic blood pressure 78 mm[Hg] Mario Zoraida DO Work Phone: [facility] 01-26-2024 11:17-0500 Systolic blood pressure 122 mm[Hg] Mario Zoraida DO Work Phone: [facility] 11-26-2023 14:30-0400 Body mass index (BMI) [Ratio] 49.41 kg/m2 Mario Zoraida DO Work Phone: [facility] 11-26-2023 14:30-0400 Body weight 114.76 kg Mario Zoraida DO Work Phone: [facility] 11-26-2023 14:30-0400 Diastolic blood pressure 80 mm[Hg] Mario Zoraida DO Work Phone: [facility] 11-26-2023 14:30-0400 Systolic blood pressure 130 mm[Hg] Mario Zoraida DO Work Phone: [facility] 09-17-2023 11:24-0400 Diastolic blood pressure 81 mm[Hg] [facility] Jeong MD Work Phone: [facility] 09-17-2023 11:24-0400 Heart rate 98 /min Althea Jeong MD Work Phone: [facility] 09-17-2023 11:24-0400 Systolic blood pressure 137 mm[Hg] Althea Jeong MD Work Phone: [facility] 08-22-2023 00:15-0400 Hourly Rounding [facility] Comment on above: Result Comment: Patient discharged off u nit in wheelchair. 08-22-2023 00:00-0400 Diastolic blood pressure 47 mm[Hg] [facility] 08-22-2023 00:00-0400 Heart rate 122 /min [facility] 08-22-2023 00:00-0400 Mean blood pressure 71 mm[Hg] [facility] 08-22-2023 00:00-0400 Systolic blood pressure 120 mm[Hg] [facility] 08-21-2023 23:45-0400 Blood Pressure Location [facility] 08-21-2023 23:45-0400 Diastolic blood pressure 52 mm[Hg] [facility] 08-21-2023 23:45-0400 Heart rate 119 /min [facility] 08-21-2023 23:45-0400 Mean blood pressure 78 mm[Hg] [facility] 08-21-2023 23:45-0400 Respiratory rate 16 /min Sg [facility] 08-21-2023 23:45-0400 Systolic blood pressure 130 mm[Hg] [facility] 08-21-2023 23:36-0400 Hourly Rounding [facility] Comment on above: Result Comment: Patient sitting in bed. Call light within reach. 08-21-2023 23:30-0400 Body temperature 97.88 [degF] [facility] 08-21-2023 23:30-0400 Diastolic blood pressure 69 mm[Hg] [facility] 08-21-2023 23:30-0400 Heart rate 135 /min [facility] 08-21-2023 23:30-0400 Mean blood pressure 82 mm[Hg] S[facility] 08-21-2023 23:30-0400 Respiratory rate 18 /min [facility] 08-21-2023 23:30-0400 Systolic blood pressure 107 mm[Hg] Sg [facility] 08-21-2023 22:09-0400 Hourly Rounding [facility] Comment on above: Result Comment: Labetalol given for BP. 08-21-2023 21:30-0400 Body temperature 98.42 [degF] [facility] 08-21-2023 20:20-0400 Diastolic blood pressure 91 mm[Hg] Tyler Melina [facility] 08-21-2023 20:20-0400 Heart rate 138 /min Tyler Melina [facility] 08-21-2023 20:20-0400 Mean blood pressure 110 mm[Hg] Tyler Melina [facility] 08-21-2023 20:20-0400 Respiratory rate 20 /min Tyler Melina [facility] 08-21-2023 20:20-0400 SaO2% (BldA) [Mass fraction] 97 % Tyler Melina [facility] 08-21-2023 20:20-0400 Systolic blood pressure 149 mm[Hg] Tyler Melina [facility] 08-21-2023 19:43-0400 Diastolic blood pressure 86 mm[Hg] Tyler Melina [facility] 08-21-2023 19:43-0400 Heart rate 141 /min Tyler Melina [facility] 08-21-2023 19:43-0400 Mean blood pressure 110 mm[Hg] Tyler Melina [facility] 08-21-2023 19:43-0400 Respiratory rate 18 /min Tyler Melina [facility] 08-21-2023 19:43-0400 SaO2% (BldA) [Mass fraction] 97 % Tyler Melina [facility] 08-21-2023 19:43-0400 Systolic blood pressure 158 mm[Hg] Tyler Melina [facility] 08-21-2023 19:22-0400 Body temperature 98.6 [degF] Tyler Melina [facility] 08-21-2023 19:22-0400 Diastolic blood pressure 103 mm[Hg] Tyler Melina [facility] 08-21-2023 19:22-0400 Heart rate 131 /min Tyler Melina [facility] 08-21-2023 19:22-0400 Mean blood pressure 118 mm[Hg] Tyler Melina [facility] 08-21-2023 19:22-0400 Respiratory rate 16 /min Tyler Melina [facility] 08-21-2023 19:22-0400 SaO2% (BldA) [Mass fraction] 97 % Tyler Melina [facility] 08-21-2023 19:22-0400 Systolic blood pressure 148 mm[Hg] Tyler Melina [facility] 08-21-2023 19:07-0400 Body temperature 99.14 [degF] Tyler Melina [facility] 08-21-2023 19:07-0400 Heart rate 140 /min Tyler Melina [facility] 08-21-2023 19:07-0400 Respiratory rate 22 /min Tyler Melina [facility] 08-13-2023 13:52-0400 Body mass index (BMI) [Ratio] 55.11 kg/m2 Leana Burr MD Work Phone: [facility] 08-13-2023 13:52-0400 Body weight 128 kg Leana Burr MD Work Phone: [facility] 08-13-2023 13:52-0400 Diastolic blood pressure 74 mm[Hg] Leana Burr MD Work Phone: [facility] 08-13-2023 13:52-0400 Heart rate 109 /min Leana Burr MD Work Phone: [facility] 08-13-2023 13:52-0400 Systolic blood pressure 123 mm[Hg] Leana Burr MD Work Phone: [facility] 07-10-2023 10:47-0400 Body mass index (BMI) [Ratio] 52.14 kg/m2 Leana Burr MD Work Phone: [facility] 07-10-2023 10:47-0400 Body weight 121.11 kg Leana Burr MD Work Phone: [facility] 07-10-2023 10:47-0400 Diastolic blood pressure 74 mm[Hg] Leana Burr MD Work Phone: [facility] 07-10-2023 10:47-0400 Heart rate 99 /min Leana Burr MD Work Phone: [facility] 07-10-2023 10:47-0400 Systolic blood pressure 135 mm[Hg] Leana Burr MD Work Phone: [facility] 06-23-2023 09:29-0400 Body mass index (BMI) [Ratio] 51.25 kg/m2 Leana Burr MD Work Phone: [facility] 06-23-2023 09:29-0400 Body weight 119.02 kg Leana Burr MD Work Phone: [facility] 06-23-2023 09:29-0400 Diastolic blood pressure 77 mm[Hg] Leana Burr MD Work Phone: [facility] 06-23-2023 09:29-0400 Heart rate 76 /min Leana Burr MD Work Phone: [facility] 06-23-2023 09:29-0400 Systolic blood pressure 132 mm[Hg] Leana Burr MD Work Phone: [facility] 05-07-2023 15:08-0500 Body height 152.4 cm Opal Heath PIECE DYER-PSYCH NP Work Phone: [facility] 05-07-2023 15:08-0500 Body mass index (BMI) [Ratio] 48.43 kg/m2 Opal Heath PIECE DYER-PSYCH NP Work Phone: [facility] 05-07-2023 15:08-0500 Body weight 112.49 kg Opal Heath APRN-PSYCH NP Work Phone: [facility] 05-07-2023 15:08-0500 Diastolic blood pressure 64 mm[Hg] Opal Heath PIECE DYER-PSYCH NP Work Phone: [facility] 05-07-2023 15:08-0500 Heart rate 111 /min Opal Heath PIECE DYER-PSYCH NP Work Phone: [facility] 05-07-2023 15:08-0500 Systolic blood pressure 136 mm[Hg] Opal Heath PIECE DYER-PSYCH NP Work Phone: [facility] 05-07-2023 14:16-0500 Body height 152.4 cm [facility] 05-07-2023 14:16-0500 Body mass index (BMI) [Ratio] 48.63 kg/m2 [facility] 05-07-2023 14:16-0500 Body weight 112.95 kg [facility] 04-17-2023 10:25-0500 Body mass index (BMI) [Ratio] 47.85 kg/m2 Mario Zoraida DO Work Phone: [facility] 04-17-2023 10:25-0500 Body weight 111.13 kg Mario Zoraida DO Work Phone: [facility] 04-17-2023 10:25-0500 Diastolic blood pressure 76 mm[Hg] Mario Zoraida DO Work Phone: [facility] 04-17-2023 10:25-0500 Systolic blood pressure 122 mm[Hg] Mario Zoraida DO Work Phone: [facility] 08-27-2021 11:09-0400 Body height 152.4 cm Gregorio Floyd MD Work Phone: [facility] 08-27-2021 11:09-0400 Body mass index (BMI) [Ratio] 46.68 kg/m2 Gregorio Floyd MD Work Phone: [facility] 08-27-2021 11:09-0400 Body weight 108.41 kg Gregorio Floyd MD Work Phone: [facility] 08-27-2021 11:09-0400 Diastolic blood pressure 86 mm[Hg] Gregorio Floyd MD Work Phone: [facility] 08-27-2021 11:09-0400 Heart rate 97 /min Gregorio Floyd MD Work Phone: [facility] 08-27-2021 11:09-0400 Systolic blood pressure 125 mm[Hg] Gregorio Floyd MD Work Phone: [facility] 08-25-2021 14:00-0400 Diastolic blood pressure 81 mm[Hg] Tyler Melina [facility] 08-25-2021 14:00-0400 Heart rate 85 /min Tyler Melina [facility] 08-25-2021 14:00-0400 Mean blood pressure 100 mm[Hg] Tyler Melina [facility] 08-25-2021 14:00-0400 Respiratory rate 16 /min Tyler Melina [facility] 08-25-2021 14:00-0400 SaO2% (BldA) [Mass fraction] 98 % Tyler Melina [facility] 08-25-2021 14:00-0400 Systolic blood pressure 138 mm[Hg] Tyler Melina [facility] 08-25-2021 01:00-0400 Diastolic blood pressure 85 mm[Hg] Tyler Melina [facility] 08-25-2021 01:00-0400 Heart rate 87 /min Tyler Melina [facility] 08-25-2021 01:00-0400 Respiratory rate 16 /min Tyler Melina [facility] 08-25-2021 01:00-0400 SaO2% (BldA) [Mass fraction] 98 % [facility] Melina [facility] 08-25-2021 01:00-0400 Systolic blood pressure 140 mm[Hg] Tyler Summers [facility] 08-25-2021 00:00-0400 Diastolic blood pressure 89 mm[Hg] [facility] Melina [facility] 08-25-2021 00:00-0400 Heart rate 95 /min [facility] Melina [facility] 08-25-2021 00:00-0400 SaO2% (BldA) [Mass fraction] 97 % Tyler Melina [facility] 08-25-2021 00:00-0400 Systolic blood pressure 149 mm[Hg] [facility] Melina [facility] 08-24-2021 22:50-0400 Body temperature 100.22 [degF] [facility] Encounters Encounter Date Encounter Type Care Provider Facility Start: 11-25-2024 End: 12-07-2024 External Result Encounter Mario Mclaino [facility] Work Phone: [facility] Unsolicited Start: 11-25-2024 End: 12-07-2024 External Result Encounter Mario Zoraida DO Work Phone: [facility] Unsolicited Start: 11-25-2024 End: 11-25-2024 Patient encounter procedure Mario Zoraida DO Work Phone: [facility] Comment on above: Pre-op examination; Request for sterilization; Menorrhagia with regular cycle; Abnormal uterine bleeding (AUB); Pelvic pain Start: 11-25-2024 End: 11-25-2024 Preprocedural examination done Mario Mclaino DO Work Phone: [facility] Start: 11-25-2024 End: 11-25-2024 ambulatory MARIO ZORAIDA Not Available Start: 10-21-2024 End: 10-21-2024 ambulatory MARIO ZORAIDA Not Available Start: 10-20-2024 End: 10-20-2024 Office outpatient visit 15 minutes Mario Zoraida DO Work Phone: [facility] [place] [facility] Comment on above: Menorrhagia with reg ular cycle (Primary Dx); Pelvic pain in female; Intrauterine device surveillance; Exposure to STD Start: 10-20-2024 End: 10-20-2024 ambulatory MARIO ZORAIDA Not Available Start: 10-20-2024 End: 10-20-2024 Bamboo flowsheet Mario Zoraida DO Work Phone: [facility] [place] [facility] Start: 10-20-2024 End: 10-22-2024 Bamboo flowsheet Mario Zoraida DO Work Phone: [facility] Start: 10-20-2024 End: 10-22-2024 External Result Encounter Mario Zoraida DO Work Phone: [facility] External Department Unsolicited Start: 08-17-2024 End: 08-17-2024 Orders Only Leana Burr MD Work Phone: [facility] Start: 08-12-2024 End: 08-12-2024 Telephone encounter Mercedes Cortez [employer] [facility] Start: 07-26-2024 End: 07-26-2024 Telephone encounter Mercedes Cortez [facility] Start: 06-23-2024 End: 06-24-2024 Refill Leana Burr MD Work Phone: [facility] Comment on above: Type 2 diabetes naz itus in , second trimester Start: 05-31-2024 End: 05-31-2024 ambulatory LEANA BURR [facility] Start: 05-31-2024 End: 05-31-2024 Office outpatient visit 25 minutes Leana Burr MD Work Phone: [facility] Comment on above: Type 2 diabetes naz itus with hyperglycemia, with long-term current use of insulin ([facility] Start: 05-28-2024 End: 05-28-2024 Emergency department patient visit Angelica Navarrete [facility] Start: 05-28-2024 End: 05-28-2024 Telephone encounter [facility] Comment on above: Type 2 diabetes naz itus with hyperglycemia, with long-term current use of insulin ([facility]) (Primary Dx) Start: 04-14-2024 End: 04-14-2024 [facility] Start: 04-07-2024 End: 04-07-2024 Telephone [facility] Start: 01-26-2024 End: 01-26-2024 Bamboo flowsheet Mario Zoraida DO Work Phone: [facility] Start: 01-26-2024 End: 01-26-2024 Bamboo flowsheet Mario Zoraida DO Work Phone: [facility] Start: 01-26-2024 End: 01-26-2024 Telephone [facility] Start: 01-26-2024 End: 01-26-2024 Office outpatient visit 15 minutes Mario Zoraida DO Work Phone: [facility] Comment on above: Intrauterine device surveillance Start: 01-26-2024 End: 01-26-2024 ambulatory MARIO ZORAIDA Not Available Start: 01-19-2024 End: 01-19-2024 Orders Only Leana Burr MD Work Phone: [facility] Comment on above: Type 2 diabetes naz itus with hyperglycemia, with long-term current use of insulin ([facility]) Start: 01-15-2024 End: 01-15-2024 Office outpatient visit 25 minutes Leana Burr MD Work Phone: [facility] Comment on above: Type 2 diabetes naz itus with hyperglycemia, with long-term current use of insulin ([facility]) (Primary Dx); BMI 50.0-59.9, adult ([facility]); Primary hypertension Start: 01-15-2024 End: 01-15-2024 ambulatory LEANA BURR [facility] Start: 12-30-2023 End: 12-30-2023 Telephone encounter Kike Angelo [facility] Start: 11-26-2023 End: 11-26-2023 Patient encounter procedure Mario Zoraida DO Work Phone: [facility] Comment on above: Encounter for insert ion of mirena IUD; Encounter for insertion of intrauterine contraceptive device (IUD) Start: 10-12-2023 End: 10-12-2023 Encounter [facility] - GEN 3 ICU Start: 10-07-2023 End: 10-07-2023 Encounter [facility] - FRAN 3W NICU Start: 10-02-2023 End: 10-02-2023 Office outpatient new 20 minutes Clarice MUHAMMAD Work Phone: [facility] Comment on above: History of (Primary Dx); Pre-eclampsia superimposed on chronic hypertension, delivered Start: 09-26-2023 End: 09-26-2023 ambulatory KRISH ESCOBEDO [facility] Start: 09-25-2023 End: 10-01-2023 Evaluation and management of inpatient MAY CHANG [facility] Start: 09-25-2023 End: 09-25-2023 Telephone encounter Joann Walsh RN Work Phone: [facility] Start: 09-24-2023 End: 09-24-2023 Telephone encounter Wendy Lambert RN [facility] Start: 09-17-2023 End: 09-17-2023 Office outpatient visit 25 minutes Althea Jeong MD Work Phone: [facility] Comment on above: Type 2 diabetes naz itus in third trimester, antepartum (Primary Dx); Insulin pump in place; Polyhydramnios in third trimester complication, single or unspecified fetus; Chronic hypertension complicating or reason for care during , third trimester; Obesity during ; BMI 50.0-59.9, adult ([facility]); Depression affecting , antepartum; 34 weeks gestation of Start: 09-17-2023 End: 09-17-2023 ambulatory [facility] Start: 08-23-2023 End: 09-23-2023 Pre-admission assessment Sg [facility] Start: 08-22-2023 End: 08-22-2023 Orders Only Leana Burr MD Work Phone: [facility] Start: 08-21-2023 End: 08-22-2023 ambulatory Sg Infante Facility:[facility] Start: 08-21-2023 End: 08-22-2023 OB Triage Sg [facility] Start: 08-21-2023 End: 08-21-2023 Emergency department patient visit Tyler Summers [facility] Start: 08-20-2023 End: 08-20-2023 Office outpatient visit 10 minutes Sg Robertson MD Work Phone: [facility] Comment on above: Type 2 diabetes naz itus in third trimester, antepartum (Primary Dx); Chronic hypertension complicating or reason for care during , third trimester Start: 08-20-2023 End: 08-20-2023 ambulatory SG ROBERTSON [facility] Start: 08-13-2023 End: 08-13-2023 Office outpatient visit 25 minutes Leana Burr MD Work Phone: [facility] Comment on above: with type 2 diabetes mellitus in third trimester (Primary Dx) Start: 08-13-2023 End: 08-13-2023 ambulatory [facility] Start: 08-07-2023 End: 08-07-2023 Orders Only Leana Burr MD Work Phone: [facility] Start: 07-29-2023 End: 07-29-2023 Office outpatient visit 25 minutes Leana Burr MD Work Phone: [facility] Comment on above: with type 2 diabetes mellitus in third trimester (Primary Dx); HTN in , chronic Start: 07-29-2023 End: 07-29-2023 ambulatory [facility] Start: 07-23-2023 End: 07-23-2023 Office outpatient visit 25 minutes Leana Burr MD Work Phone: [facility] Comment on above: Type 2 diabetes naz itus in , second trimester (Primary Dx); BMI 50.0-59.9, adult ([facility]); Obesity during Start: 07-23-2023 End: 07-23-2023 ambulatory [facility] Start: 07-22-2023 End: 07-22-2023 Office consultation new/estab patient 80 min Lottie Cam MD Work Phone: [facility] Comment on above: 26 weeks gestation o f (Primary Dx); Type 2 diabetes mellitus in , second trimester; Hypertension affecting in second trimester; Obesity during ; BMI 50.0-59.9, adult ([facility]); Depression affecting , antepartum Start: 07-22-2023 End: 07-22-2023 ambulatory LOTTIE CAM [facility] Start: 07-17-2023 End: 07-17-2023 Orders Only Leana Burr MD Work Phone: [facility] Start: 07-10-2023 End: 07-10-2023 Office outpatient visit 25 minutes Leana Burr MD Work Phone: [facility] Comment on above: Type 2 diabetes naz itus in , second trimester (Primary Dx); HTN in , chronic Start: 07-10-2023 End: 07-10-2023 ambulatory [facility] Start: 07-01-2023 End: 07-01-2023 Telephone encounter Gladys Daniel LPN [facility] Start: 06-30-2023 End: 06-30-2023 Office outpatient visit 25 minutes Leana Burr MD Work Phone: [facility] Comment on above: Type 2 diabetes naz itus in , second trimester (Primary Dx); HTN in , chronic Start: 06-30-2023 End: 06-30-2023 ambulatory [facility] Start: 06-24-2023 End: 06-24-2023 Orders Only Leana Burr MD Work Phone: [facility] Comment on above: Type 2 diabetes naz itus in , second trimester (Primary Dx) Start: 06-23-2023 End: 06-23-2023 ambulatory [facility] Start: 06-23-2023 End: 06-23-2023 Office outpatient visit 25 minutes Leana Burr MD [facility] Comment on above: Type 2 diabetes naz itus in , second trimester (Primary Dx) Start: 06-23-2023 End: 06-23-2023 ambulatory [facility] Start: 06-11-2023 End: 06-26-2023 ambulatory [facility] Comment on above: Type 2 diabetes naz itus in , second trimester (Primary Dx); Insulin pump in place; HTN in , chronic Start: 06-09-2023 Orders Only Leana franco MD Work Phone: [facility] Start: 06-04-2023 Orders Only Leana franco MD Work Phone: [facility] Comment on above: Type 2 diabetes naz itus in , second trimester (Primary Dx) Start: 05-29-2023 End: 05-29-2023 Office outpatient visit 25 minutes Leana Burr MD Work Phone: [facility] Comment on above: Type 2 diabetes naz itus in , second trimester (Primary Dx) Start: 05-20-2023 Orders Only Mary Qureshi APRN-CNM Work Phone: [facility] Comment on above: Type 2 diabetes naz itus in , second trimester (Primary Dx) Start: 05-20-2023 End: 05-20-2023 Office outpatient new 45 minutes Leana Burr MD Work Phone: [facility] Comment on above: Type 2 diabetes naz itus in , second trimester (Primary Dx) Start: 05-13-2023 Telephone encounter Joann pastrana RN Work Phone: [facility] Start: 05-12-2023 Telephone encounter Joann pastrana RN Work Phone: [facility] Start: 05-08-2023 Orders Only Queta Johnson rnal- Medicine at [facility] Comment on above: Type 2 diabetes naz itus in , second trimester (Primary Dx) Start: 05-07-2023 End: 05-07-2023 Office outpatient visit 25 minutes Opal Heath PIECE DYER-PSYCH NP Work Phone: [facility] Comment on above: Type 2 diabetes naz itus in , second trimester (Primary Dx); Insulin pump in place; HTN in , chronic Start: 05-07-2023 End: 05-07-2023 ambulatory SHITAL APRIL [facility] Comment on above: Type 2 diabetes naz itus in , second trimester (Primary Dx); Pre-existing type 2 diabetes mellitus during in first trimester Start: 04-23-2023 Chart abstracting Opal falk PIECE DYER-PSYCH NP Work Phone: [facility] Start: 04-23-2023 Telephone encounter Danyell Ortiz RN Ma ternal- Medicine at [facility] Start: 04-17-2023 End: 04-17-2023 Office outpatient visit 15 minutes Mario Conway DO Work Phone: [facility] Comment on above: Bleeding in early pr egnancy; Follow-up exam Start: 05-31-2022 End: 05-31-2022 ambulatory CRYSTAL PENG Facility:[facility] Start: 05-14-[address] ALEKSEY LAUREANO . Facili ty:[facility] Start: 05-01-[address] ALEKSEY LAUREANO . Facili ty:[facility] Start: 04-23-2022 End: 04-24-[address] ALEKSEY LAUREANO . Facility:[facility] Start: 04-15-[address] ALEKSEY LAUREANO . Facili ty:[facility] Start: 04-10-2022 End: 04-11-[address] ALEKSEY LAUREANO . Facility:[facility] Start: 03-13-2022 End: 03-13-2022 ambulatory MARINA ALBA . Facility:[facility] Start: 12-10-2021 End: 12-11-[address] ALEKSEY LAUREANO . Facility:[facility] Start: 11-29-2021 End: 11-30-[address] ALEKSEY LAUREANO . Facility:[facility] Start: 11-08-[address] ALEKSEY LAUREANO . Facili ty:[facility] Start: 09-12-2021 End: 09-13-[address] ALEKSEY LAUREANO . Facility:[facility] Start: 08-27-2021 End: 08-27-2021 ambulatory ALEKSEY LAUREANO [facility] Start: 08-27-2021 End: 08-27-2021 Office outpatient new 60 minutes Aleksey Laureano MD Work Phone: [facility] Comment on above: Type 2 diabetes naz itus with hyperglycemia, unspecified whether senior living insulin use (HCC) (Primary Dx); Thyroid disorder; Hair loss Start: 08-24-2021 End: 08-25-2021 Emergency department patient visit Tyler OjedaKristi Summers [facility] Start: 08-15-2021 End: 08-15-2021 ambulatory GREGORY FAN . Facility:[facility] Start: 06-13-2021 End: 06-14-[address] ALEKSEY LAUREANO . Facility:[facility] Start: 05-04-2021 Transcribe Orders Aleksey Laureano MD Work Phone: [facility] Comment on above: Thyroid disorder (Pr imary Dx); Hair loss Procedures Date Procedure Procedure Detail Performing Clinician Start: 11-25-2024 ENDOMETRIAL BIOPSY Core y Zoraida DO Work Phone: Start: 11-25-2024 Urine test visual color cmprsn meths Mario Zoraida DO Work Phone: Start: 11-25-2024 PATHOLOGY REQUEST FO R LAB SANDY Mario Zoraida DO Work Phone: Start: 10-20-2024 Urine test visual color cmprsn meths Mario Zoraida DO Work Phone: Start: 10-20-2024 RECURRENT VAGINITIS (HTRX) Mario Zoraida DO Work Phone: Start: 10-20-2024 Urnls dip stick/tabl et rgnt non-auto w/o micrscp Mario Zoraida DO Work Phone: Start: 05-31-2024 Hemoglobin glycosyla lincoln a1c Leana Burr MD Work Phone: Start: 11-26-2023 Urine test visual color cmprsn meths Mario Zoraida DO Work Phone: Start: 08-13-2023 Hemoglobin glycosyla lincoln a1c Leana Burr MD Work Phone: Start: 06-23-2023 End: 06-23-2023 Glucose quantitative blood xcpt reagent strip Leana Burr MD Work Phone: Start: 05-12-2023 Microscopic observat ion [Identifier] in Cervix by Cyto stain Leana Burr MD Work Phone: Start: 04-01-2023 Antibody screen Bebe newton Ivaan PIECE DYER-PSYCH NP Work Phone: Start: 04-01-2023 Bacteria identified in [...] home use Gregorio Floyd MD Work Phone: H/O: section History of C-sectio n Clarice Vaughn PIECE DYER-PSYCH NP Work Phone: None (qualifier value) Tyler Summers Plan of Treatment Date Care Activity Detail Author Start: 05-11-2026 Screening for malign ant neoplasm of cervix Pap Smear [facility] Start: 05-31-2025 Adult BMI Screening Adult BMI Screen ing [facility] Start: 05-31-2025 Tobacco Screening Tobacco Screening [facility] Start: 01-14-2025 Tobacco Screening Tobacco Screening [facility] Start: 01-06-2025 End: 01-06-2025 Patient encounter procedure 01/06/2025 11:20 AM EDT Office Visit [facility] [address] [address] Shwetha Walton PA [address] [place] [address] [facility] Start: 11-25-2024 End: 11-25-2024 Patient encounter procedure 11/25/2024 10:30 AM EDT Procedure Visit [facility] [address] [place] [phone] Mario Conway, [address] [place] [address] [facility] Start: 11-08-2024 Influenza vaccination Influenza Vacc [facility] Start: 10-21-2024 End: 10-21-2024 Professional / ancillary services management 10/21/2024 2:30 PM EDT Ancillary Procedure [facility] [address] [place] [phone] [facility] Start: 10-20-2024 End: 10-20-2024 Patient encounter procedure 10/20/2024 3:10 PM EDT Office Visit [facility] [address] [place] [phone] Mario Conway, DO [address] [place] [address] Arrived [facility] Comment on above: Arrived Start: 10-20-2024 End: 10-20-2025 aPTT in Blood by Coagulation assay APTT Lab Routine Menorrhagia with regular cycle Expected: 10/20/2024 (Approximate), Expires: 10/20/2025 [facility] Comment on above: Expected: 10/20/2024 (Approximate), Expires: 10/20/2025 Start: 10-20-2024 End: 10-20-2025 SURESWAB(R) ADVANCED VAGINITIS PLUS, TMA SURESWAB(R) ADVANCED VAGINITIS PLUS, TMA Pathology and Cytology Routine Pelvic pain in female Expected: 10/20/2024 (Approximate), Expires: 10/20/2025 [facility] Work Phone: Comment on above: Expected: 10/20/2024 (Approximate), Expires: 10/20/2025 Start: 10-20-2024 End: 10-20-2025 US Pelvis US Pelvis w/ TV Imaging Routine Pelvic pain in female Expected: 10/20/2024, Expires: 10/20/2025 [facility] Comment on above: Expected: 10/20/2024 , Expires: 10/20/2025 Start: 09-30-2024 Adult BMI Screening Adult BMI Screen ing [facility] Start: 09-29-2024 Tobacco Screening Tobacco Screening [facility] Start: 09-15-2024 End: 09-15-2024 Patient encounter procedure [facility] Start: 08-16-2024 Tobacco Screening Tobacco Screening [facility] Start: 08-12-2024 Adult BMI Screening Adult BMI Screen ing [facility] Start: 08-12-2024 Tobacco Screening Tobacco Screening [facility] Start: 07-22-2024 Tobacco Screening Tobacco Screening [facility] Start: 07-21-2024 Tobacco Screening Tobacco Screening [facility] Start: 07-09-2024 Adult BMI Screening Adult BMI Screen ing [facility] Start: 07-09-2024 Tobacco Screening Tobacco Screening [facility] Start: 06-29-2024 Tobacco Screening Tobacco Screening [facility] Start: 06-22-2024 Adult BMI Screening Adult BMI Screen ing [facility] Start: 06-22-2024 Tobacco Screening Tobacco Screening [facility] Start: 05-31-2024 End: 05-31-2024 Patient encounter procedure 05/31/2024 10:30 AM EDT Office Visit [facility] [address] [place] [address] Leana Burr MD [address] [place] [address] [facility] Start: 05-28-2024 Tobacco Screening Tobacco Screening [facility] Start: 05-07-2024 Adult BMI Screening Adult BMI Screen ing [facility] Start: 05-07-2024 Tobacco Screening Tobacco Screening [facility] Start: 05-07-2024 End: 05-07-2024 US MFM with or without consult US MFM with or without consult Imaging Routine Type 2 diabetes mellitus in , second trimester Expected: 05/07/2024 (Approximate), Expires: [facility]07[facility] Comment on above: Expected: 05/07/2024 (Approximate), Expires: 05/07/2024 Start: 03-22-2024 End: 03-22-2024 Patient encounter procedure [facility] Start: 01-28-2024 End: 01-28-2024 Professional / ancillary services management 01/28/2024 10:30 AM EST Ancillary Procedure [facility] [address] [place] [address] [facility] Start: 01-26-2024 End: 01-25-2025 US Pelvis transvaginal US pelvis transvaginal Imaging Routine Intrauterine device surveillance Expected: 01/26/2024 (Approximate), Expires: 01/25/2025 [facility] Work Phone: Comment on above: Expected: 01/26/2024 (Approximate), Expires: 01/25/2025 Start: 12-25-2023 End: 12-25-2023 Patient encounter procedure 12/25/2023 11:20 AM EDT Office Visit [facility] [address] [place] [phone] Mario Conway, DO [address] [place], [place] [id number] [facility] Start: 11-09-2023 Influenza vaccination Influenza Vacc ine [facility] Start: 09-24-2023 End: 09-24-2023 Telemedicine consultation with patient 09/24/2023 9:45 AM EDT Telemedicine Maternal- Medicine at [facility] [address] [facility] [place] [phone] Anna Galeano MD [address], [address] [place] [address] [facility] at [facility] Start: 09-17-2023 End: 09-17-2023 Telemedicine consultation with patient 09/17/2023 1:00 PM EDT [facility] [address] [place] [phone] Althea Jeong MD [address] [facility], [address] [place] [address] [facility] Start: 09-17-2023 End: 09-17-2023 Patient encounter procedure 09/17/2023 11:00 AM EDT Appointment [facility] [address] [place] [phone] [facility] Start: 09-03-2023 End: 09-03-2023 Telemedicine consultation with patient 09/03/2023 1:00 PM EDT Telemedicine Maternal- Medicine at [facility] [address] [place] [address] Opal Heath APRN-BRO [address] [place] [address] [facility]- Medicine at [facility] Start: 08-20-2023 End: 08-20-2023 Telemedicine consultation with patient 08/20/2023 9:00 AM EDT Telemedicine Maternal- Medicine at [facility] 2 [place] [address] Sg Robertson MD [address] [place] [address] M[facility]- Medicine at [facility] Start: 08-13-2023 End: 08-13-2023 Patient encounter procedure [facility] Start: 07-29-2023 End: 07-29-2023 Telemedicine consultation with patient 07/29/2023 1:45 PM EDT Telemedicine [facility] [address] [facility] [address] [place] [phone] Leana Burr MD [address], [facility] [address] [place] [address] [facility] Start: 07-23-2023 End: 07-23-2023 Telemedicine consultation with patient 07/23/2023 8:30 AM EDT Telemedicine [facility] [address] [facility] [address] [place] [phone] Leana Burr MD [address] [facility] [address] [place] [address] [facility] Start: 07-22-2023 End: 07-22-2023 Telemedicine consultation with patient 07/22/2023 10:00 AM EDT Telemedicine Maternal- Medicine at [facility] [address] [place] [phone] Lottie Cam MD [address] [address] [facility]- Medicine at [facility] Start: 07-17-2023 End: 07-17-2023 Telemedicine consultation with patient 07/17/2023 11:45 AM EDT Telemedicine [facility] [address] [place] [phone] Leana Burr MD [address], [address] [place] [address] [facility] Start: 07-11-2023 End: 06-10-2024 US MFM with or without consult US MFM with or without consult Imaging Routine Type 2 diabetes mellitus in , second trimester Insulin pump in place HTN in , chronic Expected: 07/11/2023 (Approximate), Expires: 06/10/2024 [facility] Work Phone: Comment on above: Expected: 07/11/2023 (Approximate), Expires: 06/10/2024 Start: 07-11-2023 End: 07-11-2023 Telemedicine consultation with patient 07/11/2023 10:00 AM EDT Telemedicine Maternal- Medicine at [place] [id number] [place] [phone] Althea Jeong MD [address] [facility], [address] [place] [address] Maternal- Medicine at [facility] Start: 07-10-2023 End: 07-10-2023 Patient encounter procedure 07/10/2023 10:45 AM EDT Office Visit [facility] [address] [place] [phone] Leana Burr MD [address] [place] [address] [facility] Start: 07-10-2023 End: 07-10-2023 Patient encounter procedure 07/10/2023 9:30 AM EDT Appointment [facility] [address] [place] [phone] [facility] Start: 06-30-2023 End: 06-30-2023 Telemedicine consultation with patient 06/30/2023 8:30 AM EDT Telemedicine [facility] [address] [place] [phone] Leana Burr MD [address] [facility] [address] [place] [address] [facility] Start: 06-11-2023 End: 06-11-2023 Patient encounter procedure 06/11/2023 1:00 PM EDT Appointment [facility] [address] [place] [address] [facility] Start: 06-10-2023 End: 06-10-2023 Patient encounter procedure 06/10/2023 3:00 PM EDT Office Visit [facility] [address] [place] [address] Leana Burr MD [address] [facility] [address] [place] [address] [facility] Start: 06-04-2023 End: 06-04-2023 Patient encounter procedure 06/04/2023 10:45 AM EDT Office Visit [facility] [address] [place] [phone] Leana Burr MD [address] [place] [address] [facility] Start: 05-29-2023 End: 05-29-2023 Patient encounter procedure 05/29/2023 10:45 AM EDT Office Visit [facility] [address] [place] [phone] Leana Burr MD [address] [place] [address] [facility] Start: 05-20-2023 End: 05-20-2023 Telemedicine consultation with patient 05/20/2023 8:00 AM EDT Telemedicine [facility] [address] [place] [phone] Leana Burr MD [address] [place] [address] [facility] Start: 05-12-2023 End: 05-12-2023 Patient encounter procedure 05/12/2023 8:30 AM EST Routine [facility] [address] [place] [address] Shwetha Walton PA [address] [place] [address] [facility] Start: 05-07-2023 End: 05-07-2023 Patient encounter procedure 05/07/2023 3:00 PM EST Office Visit Maternal- Medicine at [facility] [address] [place] [phone] Opal Heath, PIECE DYER-PSYCH NP [address] [place] [address] [facility]- Medicine at [facility] Start: 05-07-2023 End: 05-07-2023 ambulatory 05/07/2023 1:00 PM EST Support Visit Maternal- Medicine at [facility] [address] [place] [address] Shital Chen, RD [address], [address] [place] [address] Maternal- Medicine at [facility] Start: 11-08-2022 Influenza vaccination Influenza Vacc ine [facility] Start: 11-27-2021 End: 11-27-2021 Patient encounter procedure 11/27/2021 Office Visit Endocrinology Gregorio Floyd MD [address] [place] [address] [facility] Start: 11-27-2021 Hemoglobin A1c measurement A1C [facility] Start: 11-08-2021 Influenza vaccination Sequenti al Influenza Vaccine (Season Ended) [facility] Start: 06-25-2021 End: 06-25-2021 Patient encounter procedure 06/25/2021 Office Visit Endocrinology Gregorio Floyd MD [address] [place] [address] [facility] Start: 11-08-2020 Influenza vaccination Sequenti al Influenza Vaccine (#1) [facility] Start: 11-14-2015 Screening for malign ant neoplasm of cervix Pap Smear [facility] Start: 2013 DTaP,Tdap and Td Vaccines (1 - Tdap) DTaP,Tdap and Td Vaccines (1 - Tdap) [facility] Start: 2012 Adult BMI Follow Up Plan Adult BMI Follow Up Plan [facility] Start: 2012 Adult BMI Screening Adult BMI Screen ing [facility] Start: 2012 Diabetic foot examination Diabetic Foot Exam [facility] Start: 2012 Hepatitis C screening Hepatitis C Sc reening [facility] Start: 2009 HIV screening HIV Screening [facility] Start: 2006 Depression screening using PHQ-9 (Patient Health Questionnaire 9) score [facility] Start: 2006 Tobacco Screening Tobacco Screening [facility] Start: 2005 DTaP,Tdap and Td Vaccines (5 - Tdap) DTaP,Tdap and Td Vaccines (5 - Tdap) [facility] Start: 2004 Diabetic foot examination Foot Exam [facility] Start: 2004 Microalbumin measurement, urine, quantitative Urine Microalbumin [facility] Start: 2004 Ophthalmic examinati on and evaluation Ophthalmology Exam [facility] Start: 2000 Pneumococcal Vaccine : Ped or At-Risk (1 - PCV) Pneumococcal Vaccine: Ped or At-Risk (1 - PCV) [facility] Start: 11-14-1999 COVID-19 Vaccine (#1) COVID-19 Vacci ne (#1) [facility] Start: 11-14-1999 COVID-19 Vaccine (1) COVID-19 Vaccin e (1) [facility] Start: 1997 History and physical examination, annual for health maintenance Wellness Visit [facility] Start: 1994 Glaucoma screening Diabetic Op hthalmology Exam [facility] Start: 1994 Screening for malign ant neoplasm of cervix Pap Smear [facility] Start: 1994 Tetanus vaccination Tetanus: Every 1 0yrs [facility] Start: 1994 Urine screening for protein Urine Microalbumin [facility] End: 08-27-2022 C peptide [Mass/volume] in Serum or Plasma C-peptide Lab Routine Type 2 diabetes mellitus with hyperglycemia, unspecified whether buttermaker continuous churn insulin use (HCC) 1 Occurrences starting 08/27/2021 until 08/27/2022 [facility] Comment on above: 1 Occurrences starti ng 08/27/2021 until 08/27/2022 End: 05-19-2024 C-peptide C-peptide Lab Routine Type 2 diabetes mellitus in , second trimester 1 Occurrences starting 05/20/2023 until 05/19/2024 [facility] Comment on above: 1 Occurrences starti ng 05/20/2023 until 05/19/2024 CBC W Auto Different ial panel - Blood CBC and differential Lab Routine Menorrhagia with regular cycle Ordered: 10/20/2024 [facility] Work Phone: Comment on above: Ordered: 10/20/2024 CHLAMYDIA TRACHOMATI S (GENITO/STI) CHLAMYDIA TRACHOMATIS (GENITO/STI) Lab Routine Pelvic pain in female Ordered: 10/20/2024 [facility] Comment on above: Ordered: 10/20/2024 End: 07-21-2024 Comprehensive metabolic 2000 panel - Serum or Plasma Comprehensive metabolic panel Lab Routine 26 weeks gestation of Type 2 diabetes mellitus in , second trimester Hypertension affecting in second trimester 1 Occurrences starting 07/22/2023 until 07/21/2024 [facility] Comment on above: 1 Occurrences starti ng 07/22/2023 until 07/21/2024 End: 01-14-2025 Comprehensive metabolic 2000 panel - Serum or Plasma Comprehensive metabolic panel Lab Routine Type 2 diabetes mellitus with hyperglycemia, with long-term current use of insulin ([facility]) 1 Occurrences starting 01/15/2024 until 01/14/2025 [employer] Work Phone: Comment on above: 1 Occurrences starti ng 01/15/2024 until 01/14/2025 End: 07-21-2024 ECG 12 lead ECG 12 lead ECG Routine 26 weeks gestation of Type 2 diabetes mellitus in , second trimester Hypertension affecting in second trimester 1 Occurrences starting 07/22/2023 until 07/21/2024 [facility] Work Phone: Comment on above: 1 Occurrences starti ng 07/22/2023 until 07/21/2024 End: 05-19-2024 GAD65 Ab assay GAD65 Ab assay Lab Routine Type 2 diabetes mellitus in , second trimester 1 Occurrences starting 05/20/2023 until 05/19/2024 [facility] Work Phone: Comment on above: 1 Occurrences starti ng 05/20/2023 until 05/19/2024 End: 08-27-2022 Glucose [Mass/volume] in Serum or Plasma Glucose Lab Routine Type 2 diabetes mellitus with hyperglycemia, unspecified whether buttermaker continuous churn insulin use (HCC) 1 Occurrences starting 08/27/2021 until 08/27/2022 [facility] Comment on above: 1 Occurrences starti ng 08/27/2021 until 08/27/2022 End: 05-19-2024 Glucose [Mass/volume] in Serum or Plasma Glucose Lab Routine Type 2 diabetes mellitus in , second trimester 1 Occurrences starting 05/20/2023 until 05/19/2024 [facility] Comment on above: 1 Occurrences starti ng 05/20/2023 until 05/19/2024 hCG, quantitative, hCG, quantitative, Lab Routine Menorrhagia with regular cycle Ordered: 10/20/2024 [facility] Comment on above: Ordered: 10/20/2024 End: 01-14-2025 Hemoglobin A1c/Hemoglobin.total in Blood Hemoglobin A1c Lab Routine Type 2 diabetes mellitus with hyperglycemia, with long-term current use of insulin ([facility]) 1 Occurrences starting 01/15/2024 until 01/14/2025 [facility] Comment on above: 1 Occurrences starti ng 01/15/2024 until 01/14/2025 Hemoglobin A1c/Hemoglobin.total in Blood Hemoglobin A1c Lab Routine Menorrhagia with regular cycle Ordered: 10/20/2024 [facility] Comment on above: Ordered: 10/20/2024 Hepatic function 200 0 panel - Serum or Plasma Hepatic function panel Lab Routine Type 2 diabetes mellitus with hyperglycemia, unspecified whether senior living insulin use (HCC) Ordered: 08/27/2021 [facility] Comment on above: Ordered: 08/27/2021 End: 05-19-2024 Insulinoma Associated Antibody 2 Insulinoma Associated Antibody 2 Lab Routine Type 2 diabetes mellitus in , second trimester 1 Occurrences starting 05/20/2023 until 05/19/2024 [facility] Comment on above: 1 Occurrences starti ng 05/20/2023 until 05/19/2024 End: 08-27-2022 Islet cell antibody measurement Anti-Islet Cell (GAD65) Antibody Lab Routine Type 2 diabetes mellitus with hyperglycemia, unspecified whether senior living insulin use (HCC) 1 Occurrences starting 08/27/2021 until 08/27/2022 [facility] Comment on above: 1 Occurrences starti ng 08/27/2021 until 08/27/2022 End: 07-21-2024 LDH LDH Lab Routine 26 weeks gestation of Type 2 diabetes mellitus in , second trimester Hypertension affecting in second trimester 1 Occurrences starting 07/22/2023 until 07/21/2024 [facility] Comment on above: 1 Occurrences starti ng 07/22/2023 until 07/21/2024 End: 08-27-2022 Lipid 1996 panel - Serum or Plasma Lipid Panel Lab Routine Type 2 diabetes mellitus with hyperglycemia, unspecified whether senior living insulin use (HCC) 1 Occurrences starting 08/27/2021 until 08/27/2022 [facility] Comment on above: 1 Occurrences starti ng 08/27/2021 until 08/27/2022 End: 01-14-2025 Lipid 1996 panel - Serum or Plasma Lipid profile Lab Routine Type 2 diabetes mellitus with hyperglycemia, with long-term current use of insulin ([facility]) 1 Occurrences starting 01/15/2024 until 01/14/2025 [facility] Comment on above: 1 Occurrences starti ng 01/15/2024 until 01/14/2025 End: 01-14-2025 Microalbumin - Albumin: Creatinine Urine Ratio Microalbumin - Albumin: Creatinine Urine Ratio Lab Routine Type 2 diabetes mellitus with hyperglycemia, with long-term current use of insulin ([facility]) 1 Occurrences starting 01/15/2024 until 01/14/2025 [facility] Comment on above: 1 Occurrences starti ng 01/15/2024 until 01/14/2025 Microalbumin measurement, urine, quantitative Microalbumin/Creatinine Ratio, UR Random Lab Routine Type 2 diabetes mellitus with hyperglycemia, unspecified whether senior living insulin use (HCC) Ordered: 08/27/2021 [facility] Work Phone: Comment on above: Ordered: 08/27/2021 End: 07-21-2024 Natriuretic peptide B [Mass/volume] in Blood B-type natriuretic peptide Lab Routine 26 weeks gestation of Type 2 diabetes mellitus in , second trimester Hypertension affecting in second trimester 1 Occurrences starting 07/22/2023 until 07/21/2024 [facility] Comment on above: 1 Occurrences starti ng 07/22/2023 until 07/21/2024 Neisseria gonorrhoea e DNA [Presence] in Unspecified specimen by EZEKIEL with probe detection Neisseria gonorrhea DNA probe, direct Lab Routine Pelvic pain in female Ordered: 10/20/2024 [facility] Comment on above: Ordered: 10/20/2024 Prothrombin time (PT ) in Blood by Coagulation assay Protime-INR Lab Routine Menorrhagia with regular cycle Ordered: 10/20/2024 [facility] Comment on above: Ordered: 10/20/2024 Thyrotropin [Units/volume] in Serum or Plasma TSH Lab Routine Menorrhagia with regular cycle Ordered: 10/20/2024 [facility] Comment on above: Ordered: 10/20/2024 Thyroxine (T4) free [Mass/volume] in Serum or Plasma T4, free Lab Routine Menorrhagia with regular cycle Ordered: 10/20/2024 [facility] Comment on above: Ordered: 10/20/2024 End: 01-14-2025 TSH with Reflex TSH with Reflex Lab Routine Type 2 diabetes mellitus with hyperglycemia, with long-term current use of insulin ([facility]) 1 Occurrences starting 01/15/2024 until 01/14/2025 [facility] on above: 1 Occurrences starti ng 01/15/2024 until 01/14/2025 End: 07-21-2024 Urate [Mass/volume] in Serum or Plasma Uric acid Lab Routine 26 weeks gestation of Type 2 diabetes mellitus in , second trimester Hypertension affecting in second trimester 1 Occurrences starting 07/22/2023 until 07/21/2024 [facility] Comment on above: 1 Occurrences starti ng 07/22/2023 until 07/21/2024 End: 07-21-2024 Urine protein creatinine ratio Urine protein creatinine ratio Lab Routine 26 weeks gestation of Type 2 diabetes mellitus in , second trimester Hypertension affecting in second trimester 1 Occurrences starting 07/22/2023 until 07/21/2024 [facility] Comment on above: 1 Occurrences starti ng 07/22/2023 until 07/21/2024 Payers Date Payer Category Payer Unknown [id number] [id number] 2023 Unknown [id number] 2023 Medicaid [facility] [id number] 2021 Private Health Insurance [facility] MEDICA[facility] [id number] 2019 Medicaid [id number] 1994 Unknown [id number] 2.16.840.1.518183.3.579.2. 903 1994 Unknown [id number] 2.16.840.1.793378.3.579.2. 593 1994 Unknown [id number] 2.16.840.1.025528.3.579.2. 593 1994 Unknown [id number] 2.16.840.1.407867.3.579.2. 593 1994 Unknown [id number] 2.16.840.1.377807.3.579.2. 593 1994 Unknown [id number] 2.16.840.1.599446.3.579.2. 593 1994 Unknown [id number] 2.16.840.1.050626.3.579.2. 593 1994 Unknown [id number] 2.16.840.1.452010.3.579.2. 593 1994 Unknown [id number] 2.16.840.1.950345.3.579.2. 593 1994 Unknown [id number] 2.16.840.1.620853.3.579.2. 593 1994 Unknown [id number] 2.16.840.1.672311.3.579.2. 593 1994 Unknown [id number] 2.16.840.1.469722.3.579.2. 593 1994 Unknown [id number] 2.16.840.1.732384.3.579.2. 593 1994 Unknown [id number] 2.16.840.1.399728.3.579.2. 593 1994 Unknown [id number] 2.16.840.1.402433.3.579.2. 727 1994 Unknown [id number] 2.16840.1.300937.3.579.2. 727 1994 Unknown [id number] 2.16.840.1.634059.3.579.2. 727 1994 Unknown [id number] 2.16.840.1.350561.3.579.2. 727 1994 Unknown [id number] 2.16.840.1.583437.3.579.2. 727 1994 Unknown [id number] 2.16.840.1.298562.3.579.2. 128 1994 Unknown [id number] 2.16.840.1.084307.3.579.2. 128 1994 Unknown [id number] 2.16.840.1.045767.3.579.2. 1285 1994 Unknown [id number] 2.16.840.1.760386.3.579.2. 1285 1994 Unknown [id number] 2.16.840.1.440906.3.579.2. 128 1994 Unknown [id number] 2.16.840.1.630220.3.579.2. 1285 1994 Unknown [id number] 2.16840.1.023751.3.579.2. 1285 1994 Unknown [id number] 2.16840.1.739171.3.579.2. 1285 1994 Unknown [id number] 2.840.1.242704.3.579.2. 1994 Unknown [id number] 2.16840.1.109445.3.579.2. 1994 Unknown [id number] 2.840.1.556963.3.579.2. 1285 1994 Unknown [id number] 2.840.1.879465.3.579.2. 1285 1994 Unknown [id number] 2..1.171482.3.579.2. 1285 1994 Unknown [id number] 2.840.1.946677.3.579.2. 1285 1994 Unknown [id number] 2.0.1.256679.3.579.2. 1285 1994 Unknown [id number] 2.0.1.376555.3.579.2. 1285 1994 Unknown [id number] 2..1.844815.3.579.2. 1285 1994 Unknown [id number] 2.840.1.376035.3.579.2. 1285 1994 Unknown [id number] 2.840.1.632055.3.579.2. 1285 1994 Unknown [id number] 2.840.1.881664.3.579.2. 1285 1994 Unknown [id number] 2.840.1.925338.3.579.2. 1285 1994 Unknown [id number] 2.16840.1.469679.3.579.2. 1286 1994 Unknown [id number] 2.16.840.1.847523.3.579.2. 727 1994 Unknown [id number] 2.16.840.1.231195.3.579.2. 1259 1994 Unknown [id number] 2.16.840.1.727831.3.579.2. 1259 1994 Unknown [id number] 2.16.840.1.973843.3.579.2. 1259 1994 Unknown [id number] 2.16.840.1.014999.3.579.2. 1259 1959 Medicaid [id number] 1959 Unknown [id number] 1959 Unknown [id number] 1959 Unknown [id number] Social History Date Type Detail Facility Start: 04-23-2023 [facility] Start: 1995 Sex Assigned At Not on file [facility] Start: 08-24-2021 Tobacco smoking status Never [facility] Start: 03-24-2023 End: 11-26-2023 Sex Assigned At Female [facility] Start: 08-17-2021 End: 08-27-2021 Exposure to SARS-CoV-2 (event) Not sure [facility] Start: 03-24-2023 End: 08-26-2023 Tobacco smoking status [facility] Never smoked tobacco [facility] Start: 04-17-2023 End: 10-20-2024 Alcohol intake Lifetime non-drinker (finding) [facility] Start: 03-24-2023 End: 11-26-2023 History of Social function [facility] Start: 02-04-2023 [facility] Start: 1995 Sex Assigned At Female [facility] Start: 02-27-2023 Gender identity Identifies as female gender (finding) [facility] Start: 06-23-2023 End: 08-26-2023 Tobacco use and exposure Smokeless tobacco non-user [facility] Start: 01-15-2024 End: 05-31-2024 Alcoholic beverage intake Ex-drinker (finding) [facility] Start: 05-21-2013 End: 10-11-2014 Sex Female (finding) [facility] Sexual Orientation [facility] NEGATED: Highlighted rowStart: NINF History of tobacco use Passive smoker [facility] Medical Equipment Procedure Code Equipment Code Equipment Origin al Text Equipment Identifier Dates [id number] Start: 03-11-2023 1 each by miscellaneous route in the morning and 1 each at noon and 1 each in the evening and 1 each before bedtime. Using true metrix meter and strips and lancets.. [id number] Start: 07-10-2023 Use a new needle with each injection [id number] Start: 05-07-2023 End: 05-31-2024 Use 1 lancet 4 t imes daily for POC glucose testing [id number] Start: 06-24-2023 End: 07-10-2023 Use a new needle with each injection, inject 5 times per day [id number] Start: 05-31-2024 Functional Status Date Assessment Result Facility 05-28-2024 Functional Status N/A [facility] 08-21-2023 Functional Status N/A [facility] 08-21-2023 Functional Status N/A [facility] 08-24-2021 Functional Status N/A [facility] Clinical Notes 08-24-2021 to 11-25-2024 Karma Prasad - 11/25/2024 10:30 AM Zaki Archer NP - 10/20/2024 3:10 PM EDTTelephone Encounter - Mercedes Cortez CMA - 08/12/2024 9:55 AM Maria A Burr MD - 05/31/2024 10:30 AM EDT Note Date & Type Note Facility 11-25-2024 History of Presen t illness Narrative Associated Order(s): Endometrial biopsy Post-Procedure Diagnose(s): Pre-op examination; Menorrhagia with regular cycle; Pelvic pain; Abnormal uterine bleeding (AUB); Request for sterilization Reason for Appointment: Patient ID: Mia Pfeiffer is a 29 y.o. female who presents for Pre-op Visit and EMBX Patient presents today for a Endometrial Biopsy and Pre Op/Endometrial Biopsy appointment. Patient is scheduled to undergo Da Enoc assisted Bilateral Laparoscopic Salpingectomy, Endometrial Ablation with Meme, and IUD Removal (prior to procedure) on 12-24-[address] Conway at [facility]. appointment. MEDICATIONS Current Outpatient Medications Medication Instructions Accu-Chek Softclix Lancets lancets BD Pen Needle Naima 2nd Gen 32G X 4 MM misc USE A NEW NEEDLE WITH EACH INJECTION Continuous Blood Gluc Transmit (Dexcom G6 transmitter) misc 1 each, Subcutaneous, As needed Continuous Glucose Sensor (Dexcom G6 Sensor) misc CHANGE SENSOR EVERY 10 DAYS desvenlafaxine (PRISTIQ) 100 mg, Oral, Daily, Do not crush, chew, or split. Insulin Disposable Pump (Omnipod 5 G6 Pod, Gen 5,) misc 1 each, Oral, Daily insulin lispro (HUMALOG) 48 Units, Subcutaneous, 3 times daily with meals, U-200 NOW verses the 100 lamoTRIgine (LaMICtal) 100 MG tablet 2 tablets, Oral, Daily Lancets misc 1 each, Other, 4 times daily metoprolol tartrate (Lopressor) 50 MG tablet TAKE 1 TABLET BY MOUTH TWICE A DAY WITH FOOD FOR 30 DAYS pantoprazole (PROTONIX) 40 mg, Oral, Daily SEROquel 25 MG tablet True Metrix Blood Glucose Test test strip 1 each, Other, As needed ALLERGIES No Known Allergies PROBLEMS Active Ambulatory Problems Diagnosis Date Noted No Active Ambulatory Problems Resolved Ambulatory Problems Diagnosis Date Noted No Resolved Ambulatory Problems Past Medical History: Diagnosis Date Acid reflux Female infertility 2014 Fracture of ankle 08/20 Hand fracture, right Type 2 diabetes mellitus (HCC) HISTORY PAST MEDICAL HISTORY SOCIAL HISTORY Past Medical History: Diagnosis Date Acid reflux Female infertility 2014 Fracture of ankle 08/20 Hand fracture, right broken right hand Type 2 diabetes mellitus (HCC) Social History Tobacco Use Smoking status: Never Smokeless tobacco: Never Vaping Use Vaping status: Never Used Substance Use Topics Alcohol use: Never Drug use: Never FAMILY HISTORY Family History Problem Relation Name Age of Onset Diabetes Mother Idalia Escobar Hypertension Mother Idalia Luz Other (high blood pressure) Father May Ashley Heart disease Father May Ashley Heart attack Father May Ashley x3 Hypertension Father May Ashley SURGICAL HISTORY Past Surgical History: Procedure Laterality Date SECTION, LOW TRANSVERSE 09/27/2023 REVIEW OF SYSTEMS Review of Systems: Review of Systems Genitourinary: Positive for menstrual problem, pelvic pain and vaginal bleeding. All other systems reviewed and are negative. OBJECTIVE Objective: Physical Exam Constitutional: Appearance: Normal appearance. She [...] nursing note reviewed. Exam conducted with a lean manufacturing coordinator present. Vitals: Estimated body mass index is 48.24 kg/m as calculated from the following: Height as of 10/20/24: 5'. Weight as of 10/20/24: 247 lb. BP: No LMP recorded. (Menstrual status: IUD). ASSESSMENT & PLAN Assessment/Plan Encounter Diagnosis: ICD-10-CM 1. Pre-op examination Z01.818 2. Request for sterilization Z30.2 3. Menorrhagia with regular cycle N92.0 4. Abnormal uterine bleeding (AUB) N93.9 5. Pelvic pain R10.2 Endometrial biopsy Date/Time: 11/25/2024 11:20 AM Performed by: Mario Conway DO Authorized by: Mario Conway DO Consent: Consent obtained: written Consent given by: patient Patient agrees, verbalizes understanding, and wants to proceed: yes Pre-procedure: Urine test: negative Procedure: A bimanual exam was performed: no Tenaculum used: yes A local block was performed: no Cervix dilated: yes Findings: Cervix: normal Specimen collected: specimen collected and sent to pathology EMBX: Patient was placed in dorsal lithotomy position with feet in stirrups. A sterile speculum was placed into the vagina and the cervix was visualized. The cervix was grasped with a single tooth tenaculum. The endometrial pipette was placed through the cervix into the uterus, endometrial curettage was performed and sampling was obtained, endometrial curettings were placed in formalin, and single tooth tenaculum was removed. Excellent hemostasis was assured. All instruments were removed from vagina. Pre Op: Patient is doing well but has complaints of requesting sterilization, menorrhagia, abnormal uterine bleeding and pelvic pain. I have discussed conservative management vs. surgical management with the patient in detail and patient desires surgical management at this time. Patient will undergo Da Enoc assisted Bilateral Laparoscopic Salpingectomy, Endometrial Ablation with Meme, and IUD Removal (prior to procedure) on 12-24-24. Surgical consents were signed, mmc was reviewed, and patient is to proceed to [facility]. Follow Up: Patient is to follow up between 1-2 weeks post operative to assess proper healing and recovery from procedure. Documented by Sylvia Murillo LPN on behalf of: Mario Conway DO documented in this encounter [facility] 10-20-2024 History of Presen t illness Narrative Reason for Appointment: Patient ID: Mia Pfeiffer is a 28 y.o. female who presents for Pelvic Pain (Pt present today for pelvic pain and IUD check.) Patient presents today for Acute Visit. MEDICATIONS Current Outpatient Medications Medication Instructions Accu-Chek Softclix Lancets lancets BD Pen Needle Naima 2nd Gen 32G X 4 MM misc USE A NEW NEEDLE WITH EACH INJECTION Continuous Blood Gluc Transmit (Dexcom G6 transmitter) misc 1 each, Subcutaneous, As needed Continuous Glucose Sensor (Dexcom G6 Sensor) misc CHANGE SENSOR EVERY 10 DAYS desvenlafaxine (PRISTIQ) 100 mg, Oral, Daily, Do not crush, chew, or split. Insulin Disposable Pump (Omnipod 5 G6 Pod, Gen 5,) misc 1 each, Oral, Daily insulin lispro (HUMALOG) 48 Units, Subcutaneous, 3 times daily with meals, U-200 NOW verses the 100 lamoTRIgine (LaMICtal) 100 MG tablet 2 tablets, Oral, Daily Lancets misc 1 each, Other, 4 times daily metoprolol tartrate (Lopressor) 50 MG tablet TAKE 1 TABLET BY MOUTH TWICE A DAY WITH FOOD FOR 30 DAYS pantoprazole (PROTONIX) 40 mg, Oral, Daily SEROquel 25 MG tablet True Metrix Blood Glucose Test test strip 1 each, Other, As needed ALLERGIES No Known Allergies PROBLEMS Active Ambulatory Problems Diagnosis Date Noted No Active Ambulatory Problems Resolved Ambulatory Problems Diagnosis Date Noted No Resolved Ambulatory Problems Past Medical History: Diagnosis Date Acid reflux Female infertility 2014 Fracture of ankle 08/20 Hand fracture, right Type 2 diabetes mellitus (HCC) HISTORY PAST MEDICAL HISTORY SOCIAL HISTORY Past Medical History: Diagnosis Date Acid reflux Female infertility 2014 Fracture of ankle 08/20 Hand fracture, right broken right hand Type 2 diabetes mellitus (HCC) Social History Tobacco Use Smoking status: Never Smokeless tobacco: Never Vaping Use Vaping status: Never Used Substance Use Topics Alcohol use: Never Drug use: Never FAMILY HISTORY Family History Problem Relation Name Age of Onset Diabetes Mother Idalia Escobar Hypertension Mother Idalia Escobar Other (high blood pressure) Father May Ashley Heart disease Father May Ashley Heart attack Father May Ashley x3 Hypertension Father May Ashley SURGICAL HISTORY Past Surgical History: Procedure Laterality Date SECTION, LOW TRANSVERSE 09/27/2023 REVIEW OF SYSTEMS Review of Systems: Review of Systems Constitutional: Negative. HENT: Negative. Eyes: Negative. Respiratory: Negative. Cardiovascular: Negative. Gastrointestinal: Negative. Genitourinary: Positive for menstrual problem and pelvic pain. Musculoskeletal: Negative. Skin: Negative. Neurological: Negative. All other systems reviewed and are negative. Hematological: Negative. Endocrine: Negative. Allergic/Immunologic: Negative. OBJECTIVE Objective: OBGyn Exam Vitals: Estimated body mass index is 48.24 kg/m as calculated from the following: Height as of this encounter: 5'. Weight as of this encounter: 247 lb. BP: 128/78 No LMP recorded. (Menstrual status: IUD). ASSESSMENT & PLAN ICD-10-CM 1. Pelvic pain in female R10.2 POCT urinalysis dipstick manually resulted POCT , urine manually resulted SURESWAB(R) ADVANCED VAGINITIS PLUS, TMA Neisseria gonorrhea DNA probe, direct CHLAMYDIA TRACHOMATIS (GENITO/STI) US Pelvis w/ TV SURESWAB(R) ADVANCED VAGINITIS PLUS, TMA 2. Intrauterine device surveillance Z30.431 3. Exposure to STD Z20.2 Patient presents with complaints of pelvic pain and concern for IUD placement. Patient would like to discuss endometrial ablation. Will obtain ultrasound for IUD placement. Documented by Rea Archer NP on behalf of: Mario Conway DO documented in this encounter [facility] 08-12-2024 Miscellaneous Notes Patent has been using Humalog U 200 in her pump and with the prescription she has now she currently is running out before next refill. She asked if she could switch to regular Humalog or should she stay on current medication ? If she stays with current medication could a new prescription be sent to [facility] in [place] I have sent in for increased insulin needs for the new pump. Patient should stay on u200 with her pump settings. Script sent to [facility] Leana Burr MD LVM for patient with below message from Dr Burr and if patient has any questions to contact office. documented in this encounter [facility] 08-12-2024 Telephone encounter Note Patent has been using Humalog U 200 in her pump and with the prescription she has now she currently is running out before next refill. She asked if she could switch to regular Humalog or should she stay on current medication ? If she stays with current medication could a new prescription be sent to [facility] in [place] [facility] 08-12-2024 Telephone encounter Note I have sent in for increased insulin needs for the new pump. Patient should stay on u200 with her pump settings. Script sent to [facility] Leana Burr MD [facility] 08-12-2024 Telephone encounter Note LVM for patient with below message from Dr Burr and if patient has any questions to contact office. [facility] 07-26-2024 Miscellaneous Notes Patient called asking if she could get a prescription sent in for dexcom G7. She would like this sent to [facility]. Thank you documented in this encounter [facility] 07-26-2024 Telephone encounter Note Patient called asking if she could get a prescription sent in for dexcom G7. She would like this sent to [facility]. Thank you [facility] 05-31-2024 History of Presen t illness Narrative [facility] Diabetes Visit Tess Pfeiffer is a 28 y.o. with type 2 diabetes. She was diagnosed in 2014 and was started on oral medications. She was tried on jardiance (yeast infections), metformin (GI side effects), glipizide (ineffective), and Trulicity (some benefit) and has been treated with insulin pump since 2017. Her current regimen is: Humalog u200 (1-3 times per day) usually taking 0-10 units, not carb counting Lantus 48 units just started 2 days ago Previously on omnipod insulin pump with u200 insulin but her omnipod device broke. She has not been using her smartphone. She uses dexcom to monitor her BG. She requires this testing due to Hyperglycemia, risk of nocturnal hypoglycemia, variable BG, need for frequent dose adjustments. Patient is feeling well today. She was seen in the ER on Friday05/28/24 for Hyperglycemia and ketosis. BG reported 500s. Nasuea/ vomiting. Started the lantus 48 units Friday night. Has maintained BG in 200-300s despite the added insulin. Please see media for full dexcom download. Average BG 256. Only taking self determined dose of insulin 1-2 times per day. Complications: History of OR, CHF: none Medications none Last Lipid panel drawn due after History of HTN: no Medications none History of Diabetic Retinopathy: unknown. Last seen Speech Lang Path unknown History of peripheral neuropathy: none Medications none History of diabetic ulcers no Following with podiatry no Last seen n/a History of autonomic neuropathy: none History of Nephropathy? none Follows with Nephrology no. Last GFR or urinary microalbumin/ ratio urinary protein to be checked in . Medications none Thyroid?: was previously on levothyroxine, not currently. Medications: none. Last labs appropriate Other autoimmune conditions: none Patient denies chest pain, vision changes, SOB, Nausea/ vomiting, numbness/ tingling/ pain in extremities, foot pain or ulcerations or edema. ROS otherwise negative if not mentioned above. Past Medical History: Diagnosis Date Anxiety Depression Diabetes mellitus ([facility]) Disease of thyroid gland Hypertension Past Surgical History: Procedure Laterality Date N/A 09/27/2023 Performed by Fredy Ross MD at [facility] OR Family History Problem Relation Age of Onset Lung cancer Maternal Grandmother Hypertension Father Diabetes Father Diabetes Mother Hypertension Mother Social History Socioeconomic History Marital status: Spouse name: Not on file Number of children: Not on file Years of education: Not on file Highest education level: Not on file Occupational History Not on file Tobacco Use Smoking status: Never Passive exposure: Never Smokeless tobacco: Never Vaping Use Vaping status: Never Used Substance and Sexual Activity Alcohol use: Not Currently Drug use: Never Sexual activity: Yes Partners: Male control/protection: Other Other Topics Concern Not on file Social History Narrative Not on file Social Drivers of Health Financial Resource Strain: Not on file Food Insecurity: No Food Insecurity (05/31/2024) Hunger Screening Food Insecurity - Worry: Never True Food Insecurity - Inability: Never True Transportation Needs: Not on file Physical Activity: Not on file Stress: Not on file Social Connections: Not on file Interpersonal Safety: Unknown (05/01/2023) [facility] [place] Safety & Environment Fear of Current or Ex-Partner: Not on file Emotionally Abused: Not on file Physically Abused: Not on file Sexually Abused: Not on file Physically or Sexually Abused: Not on file Housing Instability: Not on file Current Outpatient Medications: desvenlafaxine (PRISTIQ) 100 mg 24 hr tablet, Take 1 tablet (100 mg total) by mouth in the morning., Disp: , Rfl: DEXCOM G6 SENSOR device, 1 Unit by abdominal subcutaneous route Daily at 0700., Disp: 9 each, Rfl: 3 DEXCOM G6 TRANSMITTER device, 1 Unit by abdominal subcutaneous route every 3 (three) months., Disp: 1 each, Rfl: 3 insulin glargine (LANTUS SOLOSTAR U-100 INSULIN) 100 unit/mL (3 mL) insulin pen, Inject 48 Units under the skin nightly. For insulin pump failure, Disp: 15 mL, Rfl: 12 insulin lispro (HumaLOG KwikPen Insulin) 200 unit/mL (3 mL) insulin pen, Use up to 100 units per day via insulin pump., Disp: 50 mL, Rfl: 3 lamoTRIgine (LaMICtal) 100 mg tablet, Take 1 tablet (100 mg total) by mouth in the morning. Pt to take 2 tablets daily total 200mg., Disp: , Rfl: lancets misc, 1 each by miscellaneous route in the morning and 1 each at noon and 1 each in the evening and 1 each before bedtime. Using true metrix meter and strips and lancets.., Disp: 150 each, Rfl: 6 metoprolol tartrate (LOPRESSOR) 50 mg tablet, Take 1 tablet (50 mg total) by mouth in the morning and 1 tablet (50 mg total) before bedtime., Disp: , Rfl: pantoprazole (PROTONIX) 40 mg EC tablet, Take 1 tablet (40 mg total) by mouth every morning before breakfast., Disp: , Rfl: pen needle, diabetic (BD ULTRA-FINE NAIMA PEN NEEDLE) 32 gauge x 5/32 needle, Use a new needle with each injection, Disp: 100 each, Rfl: 6 NIFEdipine XL (PROCARDIA XL) 60 mg 24 hr tablet, Take 1 tablet (60 mg total) by mouth in the morning., Disp: 30 tablet, Rfl: 1 OMNIPOD 5 G6 PODS, GEN 5, cartridge, 1 Unit by abdominal subcutaneous route every 3 (three) days. Per pump settings (Patient not taking: Reported on 05/31/2024), Disp: 30 each, Rfl: 3 tirzepatide (MOUNJARO) 2.5 mg/0.5 mL pen injector, Inject 2.5 mg under the skin every 7 days., Disp: 2 mL, Rfl: 1 There are no hospital problems to display for this patient. EXAM: Blood pressure 128/85, pulse 86, height 152.4 cm (5'), weight 112.9 kg (249 lb), not currently . Body mass index is 48.63 kg/m . General- awake/ alert/ pleasant. Obese body habitus Cardiac: RRR Respiratory: CTAB Abdomen: soft, non-distended Extremities: appropriate coloration, bilateral pulses, no rashes visible Neuro: appropriate gait, appropriate mentation Assessment and Plan Tess Pfeiffer is a 28 y.o. with type 2 diabetes. She is currently using insulin. Has not tolerated metformin or jardiance in the past. Glipizide was ineffective. We tried Mounjaro (not covered) Previously on trulicity with small benefit. Medications: Discussed other pump options. She can not afford a new omnipod deivce. Consider using smartphone vs tandem pump (she does not want long tubing). While on injections, she must start taking the humalog u200 more often. Humalog 5 units for snack or small meal, 10 units for bigger meal plus SSI 2: 50 over 150. If not eating she must still use the SSI at meal times . Lantus increase to 55 units USING U200 insulin Insulin Instructions Pump Settings Last edited by Leana Burr MD on 01/15/2024 at 8:54 AM Using U200 insulin. All settings above reflect u200 insulin NOT u100 Basal Rate Total Basal Dose: 24 units/day Time units/hr 12:00 AM 1 6:00 AM 1 12:00 PM 1 4:00 PM 1 8:00 PM 1 Blood Glucose Target Time mg/dL 12:00 AM 110 - 110 Sensitivity Factor Time mg/dL/unit 12:00 AM 45 Carb Ratio Time g/unit 12:00 AM 8 12:00 PM 8 8:00 PM 8 Add trulicity 0.75 mg weekly as preferred by insurance. Labs: YEYO Ab negative with elevated c peptide, confirms T2DM. Due for annual labs in March 2024- ordered Lifestyle changes: lower carb quantities. Increase proteins: protein shakes/ eggs lean meats. Increase vegetable intake (very low currently). Avoid excessive night time snacking Complications/ comorbidities Not planning any more pregnancies. She has mirena IUD, plans to get vasectomy. Elevated A1c and blood glucose is associated [...] deformity that could lead to foot injury. Follow up in 2 months. LEAAN BURR MD [facility] Instructions Leana Burr MD - 05/31/2024 10:30 AM EDT Sliding scale with the u200 humalog with each meal < 150 no extra 151-200 +2 units 201-250 +4 units 251-300 +6 units 301-350 + 8 units 351+ + 10 units Lantus 55 units nightly Start trulicity 0.75 mg documented [facility] 05-28-2024 Hospital Discharg e instructions Patient Education 05/28/2024 19:53:09 Hyperglycemia Hyperglycemia Hyperglycemia occurs when the level of [...] have diabetes, hyperglycemia may be caused by: Medicines that increase blood glucose or affect your diabetes control. Getting less physical activity. Eating more than planned. Being sick or injured, having an infection, or having surgery. Stress. Not giving yourself enough insulin (if you are taking insulin). If you have undiagnosed diabetes, this may be the reason you have hyperglycemia. If you do not have diabetes, hyperglycemia may be caused by: Certain medicines, including: ?Steroid medicines. ?Beta-blockers. ?Epinephrine. ?Thiazide diuretics. Stress. Having a serious illness, an infection, or surgery. Diseases of the pancreas. What increases the risk? Hyperglycemia is more likely to develop in people who have risk factors for diabetes, such as: Having a family member with diabetes. Certain conditions in which the body's disease-fighting system (immune system) attacks itself (autoimmune disorders). Being overweight or obese. Having an inactive (sedentary) lifestyle. Having been diagnosed with insulin resistance. Having a history of prediabetes, gestational diabetes, or polycystic ovarian syndrome (PCOS). What are the signs or symptoms? Hyperglycemia may not cause any symptoms. If you do have symptoms, they may include: Increased thirst. Needing to urinate more often than usual. Hunger. Feeling very tired. Blurry vision. Other symptoms may develop if hyperglycemia gets worse, such as: Dry mouth. Abdominal pain. Loss of appetite. Fruity-smelling breath. Weakness. Unexpected weight loss. Tingling or numbness in the hands or feet. Headache. Cuts or bruises that are slow to [...] the cause of your hyperglycemia, such as: A fasting blood glucose (FBG) test. You will not be allowed to eat (you will fast) for at least 8 hours before a blood sample is taken. An A1C blood test. This provides information about blood glucose control over the previous 2 3 months. An oral glucose tolerance test (OGTT). This measures your blood glucose at two times: ?After fasting. This is your baseline blood glucose level. ?2 hours after drinking a beverage that contains glucose. How is this treated? Treatment depends on the cause of your hyperglycemia. Treatment may include: Taking medicine to regulate your blood glucose levels. If you take insulin or other diabetes medicines, your medicine or dosage may be adjusted. Lifestyle changes, such as exercising more, eating healthier foods, or losing weight. Treating an illness or infection. Checking your blood glucose more often. Stopping or reducing steroid medicines. If your hyperglycemia becomes severe and it results in diabetic ketoacidosis or hyperglycemic hyperosmolar state, you must be hospitalized and given IV fluids and IV insulin. Follow these instructions at home: General instructions Take [id number] and prescription medicines only as told by your health care provider. Do not use any products that contain nicotine or tobacco. These products include cigarettes, chewing tobacco, and vaping devices, such as e-cigarettes. If you need help quitting, ask your health care provider. If you drink alcohol: ?Limit how much you have to: ?0 1 drink a day for women who are not . ?0 2 drinks a day for men. ?Know how much alcohol is in a drink. In the [place] one drink equals one 12 oz bottle of beer (355 mL), one 5 oz glass of wine (148 mL), or one 1 oz glass of hard liquor (44 mL). Learn to manage stress. If you need help with this, ask your health care provider. Do exercises as told by your health care provider. Keep all follow-up visits. This is important. Eating and drinking Maintain a healthy weight. Stay hydrated, especially when you exercise, get sick, or spend time in hot temperatures. Drink enough fluid to keep your urine pale yellow. If you have diabetes: Know the symptoms of hyperglycemia. Follow your diabetes management plan as told by your health care provider. Make sure you: ?Take your insulin and medicines as told. ?Follow your exercise plan. ?Follow your meal plan. Eat on time, and do not skip meals. ?Check your blood glucose as often as told. Make sure to check your blood glucose before and after exercise. If you exercise longer or in a different way, check your blood glucose more often. ?Follow your sick day plan whenever you cannot eat or drink normally. Make this plan in advance with your health care provider. Share your diabetes management plan with people in your workplace, school, and household. Check your urine for ketones when you are ill and as told by your health care provider. Carry a medical alert card or wear medical alert jewelry. Where to find more information [place] [employer]: www.diabetes.org Contact a health care provider if: Your blood glucose is at or above 240 mg/dL (13.3 mmol/L) for 2 days in a row. You have problems keeping your blood glucose in your target range. You have frequent episodes of hyperglycemia. You have signs of illness, such as nausea, vomiting, or fever. Get help right away if: Your blood glucose monitor reads high even when you are taking insulin. You have trouble breathing. You have a change in how you think, feel, or act (mental status). You have nausea or vomiting that does not go away. These symptoms may represent a serious problem that is an emergency. Do not wait to see if the symptoms will go away. Get medical help right away. Call your local emergency services (911 in the [place] Do not drive yourself to the hospital. Summary Hyperglycemia occurs when the level of sugar (glucose) in the blood is too high. Hyperglycemia can happen with or without diabetes, and severe hyperglycemia can be life-threatening. Hyperglycemia is diagnosed with a blood test to measure your blood glucose level. This blood test is usually done while you are having symptoms. Your health care provider may also do a physical exam and review your medical history. If you have diabetes, follow your diabetes management plan as told by your health care provider. Contact your health care provider if you have problems keeping your blood glucose in your target range. This information is not intended to replace advice given to you by your health care provider. Make sure you discuss any questions you have with your health care provider. Document Revised: 12/07/2020 Document Reviewed: 12/08/2020 Elsevier Patient Education 2023 [employer]. Follow Up Care 05/28/2024 16:51:26 With:Aleksey Laureano Address: [address] [place] [phone] Business (1) When:05/31/2024 18:44:03 [facility] 05-28-2024 Note ED Patient Education Note Endocrinology Hyperglycemia Hyperglycemia [...] instructions at home: General instructions ??? Take [id number] and prescription medicines only as told by [...] manage stress. If you need help with this (more content not included)... [facility] 05-28-2024 Evaluation + Plan note [facility] [place] from: Title:ED Note Author:Lukas Prasad PA-C te:05/28/24 Hyperglycemia (R73.9: Hyperg lycemia, unspecified) Orders: Basic Metabolic Panel Beta hCG Qual CBC w/ Auto Diff eGFR UA with Cult Rflx Addendum by Myriam Mcginnis DO on May 29, 2024 02:38:11 EDT Patient signed out pending urinalysis. Patient states she did not want a wait for to urinate is not having any symptoms. She states she will follow-up with her primary care doctor. She is to return to the ED for any new or worsening symptoms. Diagnostic Tests Pending * UA with Cult Rflx 05/28/24 [facility] 03-21-2025 History of Present illness Narrative* Leana Burr MD - 05/28/2024 1:40 PM EDT I have sent in lantus for pump failure, 48 units daily. I have notified my nurse to discuss with the patient that if her BG are 300-500s she needs to be seen in the ER to rule out DKA in setting of pump failure and to be treated to lower BG while she waits for insulin prescriptions. Leana Burr documented [facility] Miscellaneous Notes* Telephone Encounter - Linda Hines RN - 05/28/2024 10:04 AM EDT TC to patient. Informed patient that typewriter operator automatic spoke to Dr Burr. Dr Burr states that if patientsblood sugars are 300-500 that she will need to go to the ER. Patient states her blood sugar currently is 319. Down from 373. Patient states it is improving, but will go to ER if it doesn't get any better or worsening symptoms. Informed patient that when able, Dr Burr will send long acting insulin into her pharmacy [facility] in [place]. documented in this [facility] Telephone encounter Note* Telephone Encounter - Linda Hines RN - 05/28/2024 10:04 AM EDT TC to patient. Informed patient that typewriter operator automatic spoke to Dr Burr. Dr Burr states that if patientsblood sugars are 300-500 that she will need to go to the ER. Patient states her blood sugar currently is 319. Down from 373. Patient states it is improving, but will go to ER if it doesn't get any better or worsening symptoms. Informed patient that when able, Dr Burr will send long acting insulin into her pharmacy [facility] in [place]. [facility]03-21-[facility] Miscellaneous Notes* Telephone Encounter - Linda Hines RN - 05/28/2024 9:15 AM EDT Received a TC from patient stating that her blood sugars are elevated and it started last night. She states her blood sugar last night was 550 before going to bed. She took 30 units of her Humalog U-200. Patient states she went to bed and when she woke up this morning her blood sugar @ 9092-8128 was 363 so she took another 15 units of U-200. Her current blood sugar is 373. Manufacturing Technology Analyst asked patient ifcasie is currently using her insulin pump and patient states no because it is broke and she tried to get Omnipod to repair and pump is out of warranty. The cost to repair she was told is 300 and she can't afford that at this time. Manufacturing Technology Analyst asked patient if she has an long acting insulin available and she does not. She states she has not had any long acting insulin since and her pump has been broken for at least 2 months. The only insulin the patient has been taking is the Humalog U-200. Patient does not have ketone testing strips. Denies N/V, but has a headache. Encouraged to increase fluids if not having nausea and vomiting. Manufacturing Technology Analyst informed patient that Dr Burr is not in the office today, but typewriter operator automatic will try to reach her. Patient was given the after hours number in case her blood sugar continues to elevate. Manufacturing Technology Analyst informed patient that if she is not able get her blood glucose below 300 and/or worsening symptoms that she should go to the ER. Patient verbalized understanding. documented in this [facility]03-[facility]-2025 Telephone encounter Note* Telephone Encounter - Linda Hines RN - 05/28/2024 9:15 AM EDT Received a TC from patient stating that her blood sugars are elevated and it started last night. She states her blood sugar last night was 550 before going to bed. She took 30 units of her Humalog U-200. Patient states she went to bed and when she woke up this morning her blood sugar @ 4920-2781 was 363 so she took another 15 units of U-200. Her current blood sugar is 373. Manufacturing Technology Analyst asked patient ifcasie is currently using her insulin pump and patient states no because it is broke and she tried to get Omnipod to repair and pump is out of warranty. The cost to repair she was told is 300 and she can't afford that at this time. Manufacturing Technology Analyst asked patient if she has an long acting insulin available and she does not. She states she has not had any long acting insulin since and her pump has been broken for at least 2 months. The only insulin the patient has been taking is the Humalog U-200. Patient does not have ketone testing strips. Denies N/V, but has a headache. Encouraged to increase fluids if not having nausea and vomiting. Manufacturing Technology Analyst informed patient that Dr Burr is not in the office today, but typewriter operator automatic will try to reach her. Patient was given the after hours number in case her blood sugar continues to elevate. Manufacturing Technology Analyst informed patient that if she is not able get her blood glucose below 300 and/or worsening symptoms that she should go to the ER. Patient verbalized understanding. [facility]02-05[facility] Miscellaneous Notes* Telephone Encounter - Linda Hines RN - 04/14/2024 2:58 PM EST LVM to call our office to get rescheduled for the canceled appointment. documented in this encounterGu[facility]02-[facility]-2025 Telephone encounter Note* Telephone Encounter - Linda Hines RN - 04/14/2024 2:58 PM EST LVM to call our office to get rescheduled for the canceled appointment. [facility]01-29-[facility] Miscellaneous Notes* Telephone Encounter - Linda Hines RN - 04/07/2024 10:41 AM EST LVM for patient that Dr Burr will be out of the office tomorrow April 08 and we need to reschedule her appointment. Contact information left on voicemail to return call to get rescheduled. documented in this encounterGu[facility]01-29-2025 Telephone encounter Note* Telephone Encounter - Linda Hines RN - 04/07/2024 10:41 AM EST LVM for patient that Dr Burr will be out of the office tomorrow April 08 and we need to reschedule her appointment. Contact information left on voicemail to return call to get rescheduled. [facility] Miscellaneous Notes* Telephone Encounter - Linda Hines RN - 01/26/2024 11:30 AM EST LVM for patient regarding her message that she sent through her [employer]. Patient states her insurance will not cover the Omnipod pods or the Mounjaro. Manufacturing Technology Analyst called and left message for patient to contact her insurance company to find out why they are not approving the medications. Manufacturing Technology Analyst asked patient to send a [place] message or call our office back when she finds out an answer. documented in this encounterEast [id number] Telephone encounter Note* Telephone Encounter - Linda Hines RN - 01/26/2024 11:30 AM EST LVM for patient regarding her message that she sent through her [employer]. Patient states her insurance will not cover the Omnipod pods or the Mounjaro. Manufacturing Technology Analyst called and left message for patient to contact her insurance company to find out why they are not approving the medications. Manufacturing Technology Analyst asked patient to send a [place] message or call our office back when she finds out an answer. [facility] History of Present illness Narrative* Sylvia Murillo LPN - 01/26/2024 10:50 AM EST Reason for Appointment: Patient ID: Mia Pfeiffer is a 28 y.o. female who presents for String check Patient presents today for String Check Follow Up appointment. MEDICATIONS Current Outpatient Medications Medication Instructions Accu-Chek Softclix Lancets lancets BD Pen Needle Naima 2nd Gen 32G X 4 MM misc USE A NEW NEEDLE WITH EACH INJECTION Continuous Blood Gluc Transmit (Dexcom G6 transmitter) misc 1 each, Subcutaneous, As needed Continuous Glucose Sensor (Dexcom G6 Sensor) misc CHANGE SENSOR EVERY 10 DAYS desvenlafaxine (PRISTIQ) 100 mg, Oral, Daily, Do not crush, chew, or split. Insulin Disposable Pump (Omnipod 5 G6 Pod, Gen 5,) misc 1 each, Oral, Daily insulin lispro (HUMALOG) 48 Units, Subcutaneous, 3 times daily with meals, U-200 NOW verses the 100 lamoTRIgine (LaMICtal) 100 MG tablet 2 tablets, Oral, Daily Lancets misc 1 each, Other, 4 times daily metoprolol tartrate (Lopressor) 50 MG tablet TAKE 1 TABLET BY MOUTH TWICE A DAY WITH FOOD FOR 30 DAYS pantoprazole (PROTONIX) 40 mg, Oral, Daily SEROquel 25 MG tablet True Metrix Blood Glucose Test test strip 1 each, Other, As needed ALLERGIES No Known Allergies PROBLEMS Active Ambulatory Problems Diagnosis Date Noted No Active Ambulatory Problems Resolved Ambulatory Problems Diagnosis Date Noted No Resolved Ambulatory Problems Past Medical History: Diagnosis Date Acid reflux Female infertility 2014 Fracture of ankle 08/20 Hand fracture, right Type 2 diabetes mellitus ([facility]) HISTORY PAST MEDICAL HISTORY SOCIAL HISTORY Past Medical History: Diagnosis Date Acid reflux Female infertility 2014 Fracture of ankle 08/20 Hand fracture, right broken right hand Type 2 diabetes mellitus ([facility]) Social History Tobacco Use Smoking status: Never Smokeless tobacco: Never Vaping Use Vaping status: Never Used Substance Use Topics Alcohol use: Never Drug use: Never FAMILY HISTORY Family History Problem Relation Name Age of Onset Diabetes Mother Idalia Escobar Hypertension Mother Idalia Escobar Other (high blood pressure) Father May Wrightn Heart disease Father May Wrightn Heart attack Father May Ashley x3 Hypertension Father May Ashley SURGICAL HISTORY Past Surgical History: Procedure Laterality Date SECTION, LOW TRANSVERSE 09/27/2023 REVIEW OF SYSTEMS Review of Systems: Review of Systems All other systems reviewed and are negative. OBJECTIVE Objective: Physical Exam Constitutional: Appearance: Normal appearance. She is well-developed. Genitourinary: Vulva normal. IUD strings visualized. Cardiovascular: Rate and Rhythm: Normal rate and [...] nursing note reviewed. Exam conducted with a lean manufacturing coordinator present. Vitals: Estimated body mass index is 49.1 kg/m as calculated from the following: Height as of 08/26/23: 5'. Weight as of this encounter: 251 lb 6.4 oz. BP: 122/78 No LMP recorded. ASSESSMENT & PLAN ICD-10-CM 1. Intrauterine device surveillance Z30.431 US pelvis transvaginal IUD String Check: Patient is doing well but has some complaints of bleeding and cramping following IUD placement. Patient presents today for IUD string check. Strings were visualized and are noted to be intact. Follow Up: Patient is to return to the office for annual exam unless needed otherwise. Documented by Sylvia Murillo LPN on behalf of: Mario Conway DO documented in this encounterResearch Psychiatric [id number] History of Present illness Narrative* Leana Burr MD - 01/15/2024 8:30 AM EST [facility]- Diabetes Visit TELEMEDICINE VISIT: This is an audiovisual visit. This is done to assess the patient and to determine the best medical care. The patient was located at [place] in [place] and the provider was located at the medical office in [place]. The patient states they are not driving or taking care of other activitiesnow. Consent to proceed obtained. Tess Pfeiffer is a 28 y.o. with type 2 diabetes. She was diagnosed in 2014 and was started on oral medications. She was tried on jardiance (yeast infections), metformin (GI side effects), glipizide (ineffective), and Trulicity (some benefit) and has been treated with insulin pump since 2017. Her current regimen is: Lantus 22 units 2-3 times per day She uses dexcom to monitor her BG. She requires this testing due to Hyperglycemia, risk of nocturnal hypoglycemia, variable BG, need for frequent dose adjustments. Patient is feeling well today. Please see media for full dexcom download. Average BG 295. Running high throughout the day and night. No hypoglycemia. Lowest BG around 200. Her Baby had hypoglycemia after delivery. Complications: History of OR, CHF: none Medications none Last Lipid panel drawn due after History of HTN: no Medications none History of Diabetic Retinopathy: unknown. Last seen Speech Lang Path unknown History of peripheral neuropathy: none Medications none History of diabetic ulcers no Following with podiatry no Last seen n/a History of autonomic neuropathy: none History of Nephropathy? none Follows with Nephrology no. Last GFR or urinary microalbumin/ ratio urinary protein to be checked in . Medications none Thyroid?: was previously on levothyroxine, not currently. Medications: none. Last labs appropriate Other autoimmune conditions: none Patient denies chest pain, vision changes, SOB, Nausea/ vomiting, numbness/ tingling/ pain in extremities, foot pain or ulcerations or edema. ROS otherwise negative if not mentioned above. Past Medical History: Diagnosis Date Anxiety Depression Diabetes mellitus ([facility]) Disease of thyroid gland Hypertension Past Surgical History: Procedure Laterality Date N/A 09/27/2023 Performed by Fredy Ross MD at [facility] OR Family History Problem Relation Age of Onset Lung cancer Maternal Grandmother Hypertension Father Diabetes Father Diabetes Mother Hypertension Mother Social History Socioeconomic History Marital status: Spouse name: Not on file Number of children: Not on file Years of education: Not on file Highest education level: Not on file Occupational History Not on file Tobacco Use Smoking status: Never Passive exposure: Never Smokeless tobacco: Never Vaping Use Vaping status: Never Used Substance and Sexual Activity Alcohol use: Not Currently Drug use: Never Sexual activity: Yes Partners: Male control/protection: Other Other Topics Concern Not on file Social History Narrative Not on file Social Drivers of Health Financial Resource Strain: Not on file Food Insecurity: No Food Insecurity (08/13/2023) Hunger Screening Food Insecurity - Worry: Never True Food Insecurity - Inability: Never True Transportation Needs: Not on file Physical Activity: Not on file Stress: Not on file Social Connections: Not on file Interpersonal Safety: Unknown (05/01/2023) [facility] [place] [facility] Fear of Current or Ex-Partner: Not on file Emotionally Abused: Not on file Physically Abused: Not on file Sexually Abused: Not on file Physically or Sexually Abused: Not on file Housing Instability: Not on file Current Outpatient Medications: desvenlafaxine (PRISTIQ) 100 mg 24 hr tablet, Take 1 tablet (100 mg total) by mouth in the morning., Disp: , Rfl: DEXCOM G6 SENSOR device, 1 Unit by abdominal subcutaneous route Daily at 0700., Disp: 9 each, Rfl: 3 DEXCOM G6 TRANSMITTER device, 1 Unit by abdominal subcutaneous route every 3 (three) months., Disp:1 each, Rfl: 3 insulin lispro (HumaLOG KwikPen Insulin) 200 unit/mL (3 mL) insulin pen, Use up to 150 units per day via insulin pump., Disp: 70 mL, Rfl: 3 lamoTRIgine (LaMICtal) 100 mg tablet, Take 1 tablet (100 mg total) by mouth in the morning. Pt to take 2 tablets daily total 200mg., Disp: , Rfl: lancets misc, 1 each by miscellaneous route in the morning and 1 each at noon and 1 each in the evening and 1 each before bedtime. Using true metrix meter and strips and lancets.. (Patient not taking: Reported on 08/20/2023), Disp: 150 each, Rfl: 6 NIFEdipine XL (PROCARDIA XL) 60 mg 24 hr tablet, Take 1 tablet (60 mg total) by mouth in the morning., Disp: 30 tablet, Rfl: 1 OMNIPOD 5 G6 PODS, GEN 5, cartridge, 1 Unit by abdominal subcutaneous route once daily. Per pump settings, Disp: 30 each, Rfl: 6 pantoprazole (PROTONIX) 40 mg EC tablet, Take 1 tablet (40 mg total) by mouth every morning before breakfast., Disp: , Rfl: pen needle, diabetic (BD ULTRA-FINE NAIMA PEN NEEDLE) 32 gauge x 5/32 needle, Use a new needle witheach injection, Disp: 100 each, Rfl: 6 There are no hospital problems to display for this patient. EXAM: not currently . There is no height or weight on file to calculate BMI. Virtual visit HTN per patient- seeing PCP. Breathing easily on RA Comfortable, not in pain Assessment and Plan Tess Pfeiffer is a 28 y.o. with type 2 diabetes. She is currently using insulin. Has not tolerated metformin or jardiance in the past. Glipizide was ineffective. Since her delivery summer 2023, she has not been taking her medications regularly and has very highBG averaging 295. Medications: Restart insulin pump. She needs to be on GLP1RA to help with weight control as well as glucose control. Goal to increase the GLP1RA and decrease insulin. We will use u200 insulin in her pump for now. Reduced pump settings compared to . If she is unable to get supplies or insulin she must contact me and we will get her back on insulin injections. USING U200 insulin Insulin Instructions Pump Settings Last edited by Leana Burr MD on 01/15/2024 at 8:54 AM Using U200 insulin. All settings above reflect u200 insulin NOT u100 Basal Rate Total Basal Dose: 24 units/day Time units/hr 12:00 AM 1 6:00 AM 1 12:00 PM 1 4:00 PM 1 8:00 PM 1 Blood Glucose Target Time mg/dL 12:00 AM 110 - 110 Sensitivity Factor Time mg/dL/unit 12:00 AM 45 Carb Ratio Time g/unit 12:00 AM 8 12:00 PM 8 8:00 PM 8 Add mounjaro 2.5 mg weekly. Plan to increase to 5 mg after 4 weeks if tolerating medication. Goal: increase GLP1RA, with weight loss be able to decrease insulin needs and get off pump. Labs: YEYO Ab negative with elevated c peptide, confirms T2DM. Due for annual labs in March 2024 Lifestyle changes: lower carb quantities. Increase proteins: protein shakes/ eggs lean meats. Increase vegetable intake (very low currently). Avoid excessive night time snacking Complications/ comorbidities Not planning any more pregnancies. She has mirena IUD, plans to get vasectomy. Elevated A1c and blood glucose is associated [...] deformity that could lead to foot injury. Follow up in 2 months. Labs before next visit LEANA BURR MD [facility] documented in this encounterGu[facility]10-[facility]-2024 Miscellaneous Notes* Telephone Encounter - Kike Angelo - 12/30/2023 9:05 AM EDT Pt called in regards to setting up F/U appt w/ since delivering for her T2DM. Said is supposed to be on insulin pump but insurance is having a conflict, so past few weeks has been doing daily injections. Told pt my first available would be in March so may need to contact primary physician for refills if low on injections until can be scheduled. Pt relayed has other medicine teacher from before so is going to see if can get in with them sooner. Pt to call us if times are about the same to schedule. jk documented in this encounterGuernsey [facility]10-22-2024 Telephone encounter Note* Telephone Encounter - Kike Angelo - 12/30/2023 9:05 AM EDT Pt called in regards to setting up F/U appt w/ since delivering for her T2DM. Said is supposed to be on insulin pump but insurance is having a conflict, so past few weeks has been doing daily injections. Told pt my first available would be in March so may need to contact primary physician for refills if low on injections until can be scheduled. Pt relayed has other medicine teacher from before so is going to see if can get in with them sooner. Pt to call us if times are about the same to schedule. jk [employer] [id number] History of Present illness Narrative* Coral Feliz, MECHANIC DRIVER - 11/26/2023 2:30 PM EDT Reason for Appointment: Patient ID: Mia Pfeiffer is a 28 y.o. female who presents for Contraception (Mirena insert) Patient presents today for Post Follow Up appointment. MEDICATIONS Current Outpatient Medications Medication Instructions Accu-Chek Softclix Lancets lancets BD Pen Needle Naima 2nd Gen 32G X 4 MM misc USE A NEW NEEDLE WITH EACH INJECTION Continuous Blood Gluc Transmit (Dexcom G6 transmitter) misc 1 each, Subcutaneous, As needed Continuous Glucose Sensor (Dexcom G6 Sensor) misc CHANGE SENSOR EVERY 10 DAYS desvenlafaxine (PRISTIQ) 100 mg, Oral, Daily, Do not crush, chew, or split. Insulin Disposable Pump (Omnipod 5 G6 Pod, Gen 5,) misc 1 each, Oral, Daily insulin lispro (HUMALOG) 48 Units, Subcutaneous, 3 times daily with meals, U-200 NOW verses the 100 lamoTRIgine (LaMICtal) 100 MG tablet 2 tablets, Oral, Daily Lancets misc 1 each, Other, 4 times daily NIFEdipine XL (PROCARDIA XL) 60 mg, Oral, Daily, Do not crush, chew, or split. pantoprazole (PROTONIX) 40 mg, Oral, Daily True Metrix Blood Glucose Test test strip 1 each, Other, As needed ALLERGIES No Known Allergies PROBLEMS Active Ambulatory Problems Diagnosis Date Noted No Active Ambulatory Problems Resolved Ambulatory Problems Diagnosis Date Noted No Resolved Ambulatory Problems Past Medical History: Diagnosis Date Acid reflux Female infertility 2014 Fracture of ankle 08/20 Hand fracture, right Type 2 diabetes mellitus (CMS/HCC) HISTORY PAST MEDICAL HISTORY SOCIAL HISTORY Past Medical History: Diagnosis Date Acid reflux Female infertility 2014 Fracture of ankle 08/20 Hand fracture, right broken right hand Type 2 diabetes mellitus (CMS/HCC) Social History Tobacco Use Smoking status: Never Smokeless tobacco: Never Vaping Use Vaping status: Never Used Substance Use Topics Alcohol use: Never Drug use: Never FAMILY HISTORY Family History Problem Relation Name Age of Onset Diabetes Mother Idalia Escobar Hypertension Mother Idalia Escobar Other (high blood pressure) Father May Ashley Heart disease Father May Ashley Heart attack Father May Ashley x3 Hypertension Father May Ashley SURGICAL HISTORY Past Surgical History: Procedure Laterality Date SECTION, LOW TRANSVERSE 09/27/2023 REVIEW OF SYSTEMS Review of Systems: Review of Systems Constitutional: Negative. HENT: Negative. Eyes: Negative. Respiratory: Negative. Cardiovascular: Negative. Gastrointestinal: Negative. Genitourinary: Negative. Musculoskeletal: Negative. Skin: Negative. Neurological: Negative. All other systems reviewed and are negative. Hematological: Negative. Endocrine: Negative. Allergic/Immunologic: Negative. OBJECTIVE Objective: Physical Exam Constitutional: Appearance: Normal appearance. She [...] nursing note reviewed. Exam conducted with a lean manufacturing coordinator present. Vitals: Estimated body mass index is 49.41 kg/m as calculated from the following: Height as of 08/26/23: 5'. Weight as of this encounter: 253 lb. BP: 130/80 Patient's last menstrual period was 11/15/2023. ASSESSMENT & PLAN ICD-10-CM 1. Encounter for insertion of mirena IUD Z30.430 Levonorgestrel intrauterine device 52 mg POCT , urine manually resulted 2. Encounter for insertion of intrauterine contraceptive device (IUD) Z30.430 Levonorgestrel intrauterine device 52 mg POCT , urine manually resulted Post Follow Up: Patient is doing well but has complaints of issues regarding feeding. Patient presents todayfor 6 week visit. Patient is s/p delivery. Patient states depression but denies suicidal and homicidal ideations. All options were discussed with the patient regarding control and patient desires IUD. IUD Insertion: Patient presents today for an IUD Insertion. Patient is having a Mirena placed and written consent was obtained. Patient was placed in the dorsal lithotomy position with feet in stirrups. A sterile speculum ws placed into the vagina and the cervix was visualized. Cervix was cleansed with betadine and the anterior lip was grasped with ring forceps. Uterus was then gently sounded. New IUD device was gently advanced through the endocervix, toward te uterine fundus. The IUD was then deployed as device was gently removed from the uterus. The IUD strings were cut to the length from external os. Allinstruments were removed from the vagina. Post-procedure instructions given. All of patients questions were answered and she expressed understanding. Advised to call interim with any questions or concerns. Follow Up: Patient is to return for annual unless needed otherwise. Documented by Coral Feliz LPN on behalf of: Mario Conway DO documented in this encounterResearch Psychiatric [id number] Miscellaneous Notes* Note - Leisa Delacruz RN - 10/12/2023 8:15 PM EDT This note was copied from a baby's chart. Met with mother at bedside. States she had stoppped pumping because her pump broke and she just gota new Spectra. She is getting drops at this time. Reinforced pumping guidelines and importance of pumping how infant eats. Encouraged pumping every 2-3 hours for 15-20 minutes at suction level that is comfortable. Also discussed and encouraged power pumping and skin to skin. Power Pumping Power pumping is a great way to boost supply, as it simulates baby cluster feeding at the breast. Do this 1-3 times a day to boost supply. You may not see large volumes at the time of power pumping, but over a few days of adding in power pumping sessions, you should see an increase in milk production. Power pumping in the pie crimping machine operator hours is very effective, because hormone levels peak at this time to maximize milk production. Instruction: Pump for 20 minutes on normal settings. Rest for 10 minutes (you do not need to clean your pump or store the milk) Pump for 10 minutes Rest for 10 minutes Pump for 10 minutes Combine milk from pump sessions and store, clean pump parts. Flange Fit A flange fits correctly when: your nipple is centered in the tube no parts of your nipple rub against the sides little or no areola is pulled in when the pump is turned on On the other hand, a flange is not fitting properly when: you experience nipple pain during or after the pumping session you notice your nipple is becoming discolored, chapped, or otherwise injured In addition to breast and nipple pain, using the wrong sized pump flange can negatively impact the amount of milk you are able to get out of your breast. A flange that fits too tightly will cause the breast to be constricted in ways that can lead to clogged/blogged milk ducts. (When ducts are clogged, they don t release milk and new milk isn t formed as quickly.) On the other hand, a flange that fits too loosely won t provide adequate suction. This can also lead to milk being left in the breast and lower milk production in the future. Pain and infection can develop from this as well. Questions answered and support given. documented in this encounterGuernsey [facility]08-04-2024 Obstetrics Note* Note - Leisa Delacruz RN - 10/12/2023 8:15 PM EDT This note was copied from a baby's chart. Met with mother at bedside. States she had stoppped pumping because her pump broke and she just gota new Spectra. She is getting drops at this time. Reinforced pumping guidelines and importance of pumping how infant eats. Encouraged pumping every 2-3 hours for 15-20 minutes at suction level that is comfortable. Also discussed and encouraged power pumping and skin to skin. Power Pumping Power pumping is a great way to boost supply, as it simulates baby cluster feeding at the breast. Do this 1-3 times a day to boost supply. You may not see large volumes at the time of power pumping, but over a few days of adding in power pumping sessions, you should see an increase in milk production. Power pumping in the pie crimping machine operator hours is very effective, because hormone levels peak at this time to maximize milk production. Instruction: Pump for 20 minutes on normal settings. Rest for 10 minutes (you do not need to clean your pump or store the milk) Pump for 10 minutes Rest for 10 minutes Pump for 10 minutes Combine milk from pump sessions and store, clean pump parts. Flange Fit A flange fits correctly when: your nipple is centered in the tube no parts of your nipple rub against the sides little or no areola is pulled in when the pump is turned on On the other hand, a flange is not fitting properly when: you experience nipple pain during or after the pumping session you notice your nipple is becoming discolored, chapped, or otherwise injured In addition to breast and nipple pain, using the wrong sized pump flange can negatively impact the amount of milk you are able to get out of your breast. A flange that fits too tightly will cause the breast to be constricted in ways that can lead to clogged/blogged milk ducts. (When ducts are clogged, they don t release milk and new milk isn t formed as quickly.) On the other hand, a flange that fits too loosely won t provide adequate suction. This can also lead to milk being left in the breast and lower milk production in the future. Pain and infection can develop from this as well. Questions answered and support given. [facility] HospitalJdguanjia Aramsc[facility] [id number] Miscellaneous Notes* Note - Meghana Ocampo RN - 10/07/2023 1:45 PM EDT This note was copied from a baby's chart. Met with mother at infants bedside. Mother originally did not plan on . Since is in the NICU mother has decided to start pumping. Mother is pumping 2-3 times a day and is getting about 70mls. Reinforced pumping guidelines and importance of pumping how infant eats. Encouraged pumping every 2-3 hours for 15-20 minutes at suction level that is comfortable. Mom will only produce the amount of breastmilk that her baby demands. It is true that hormones drive the production of veryearly breastmilk, called colostrum. However, in order to keep producing breastmilk, your baby needsto keep sucking from the breast. The overall level of milk production varies based on the babys amount of sucking and how much milk is actually removed. Getting home pump tomorrow. Questions answered, encouragement given. documented in this encounterGuernsey [facility] Hospital07-30-2024 Obstetrics Note* Note - Meghana Ocampo RN - 10/07/2023 1:45 PM EDT This note was copied from a baby's chart. Met with mother at infants bedside. Mother originally did not plan on . Since infant is in the NICU mother has decided to start pumping. Mother is pumping 2-3 times a day and is getting about 70mls. Reinforced pumping guidelines and importance of pumping how infant eats. Encouraged pumping every 2-3 hours for 15-20 minutes at suction level that is comfortable. Mom will only produce the amount of breastmilk that her baby demands. It is true that hormones drive the production of veryearly breastmilk, called colostrum. However, in order to keep producing breastmilk, your baby needsto keep sucking from the breast. The overall level of milk production varies based on the babys amount of sucking and how much milk is actually removed. Getting home pump tomorrow. Questions answered, encouragement given. [facility]07-25-2024 History of Present illness Narrative* SABINA George - 10/02/2023 9:30 AM EDT Video Visit via Real-time Synchronous Audiovisual Provider Location: [facility] [address] [id number] Patient Location: other Patient Location Geriatrician: None Video Visit Consent Statement: I discussed risks, benefits, and alternatives of a real-time synchronous audiovisual consultation with the patient (and any accompanying persons) including the risks that the patient's personal health details and medical records will be discussed over real-time, synchronous, interactive video/audio/telecommunication technology, the visit will not be recorded withoutthe express consent of both the provider and the patient, and that there are some limitations compared to [id number] evaluations. We elected to proceed. Subjective: Tess Pfeiffer is a 27 y.o. is seen today via televisit. She is 5 days post- from a PLTCS at 35w4d secondary to NRFHT. Her was complicated by CHTN with ANABELLE with severe features, Type II DM. She was a transport to [facility] from [place]. She sees Dr. Conway as her primary OB. She is currently on Procardia XL 60 mg daily and labetalol 600 mg q8h and is taking as prescribed. She is concerned she may be on too much medicine, BP last night was 120/68 and she felt lightheaded at that time. During was on procardia XL 30 mg daily and Labetalol 300 mg TID. She reports overall she is feeling well, better than she expected after a c/s. She was just discharged from the hospital last night. Objective: Her home blood readings are as follows: Last night: 120/68, this was about 1 hour after labetalol dose This AM: 147/76, has not yet taken medication General: well appearing, no acute distress. Neuro: Alert and oriented Assessment and Plan: CHTN Superimposed Pre-eclampsia History of C/S Discussed with Dr. Mohamud after visit completed and called patient to discuss medication. She is concerned she is on too high of dose of medications with the way she felt last night. Will decreasedlabetalol to 400 mg TID, keep procardia dose the same. She will follow up with primary OB next week, discussed to call either primary OB or [facility] if continuing to have lower BPs that are causing her to by symptomatic. Pre-eclamptic warnings reviewed. Call provider precision millwright for headache unresolved with tylenol, visualchange, epigastic pain or significant change in swelling in her hands feet or face. Let the office know if BP readings consistently over 140/90 (either number). Call provider precision millwright for BP greater than 160/110 (either number). Clarice Vaughn, PIECE DYERROSY 10/02/23 [id number] documented in this encounterGuernsey [facility] Hospital07-18-2024 Miscellaneous Notes* Telephone Encounter - Joann Walsh RN - 09/25/2023 1:08 PM EDTSummary: MFM Insulin Pump/Insulin Injection Dosing Called. No Answer. Message left regarding needing an update on current insulin pump/insulin injection dosing and needing to schedule an in person MFM appointment or be admitted for glucose optimization. Requested return call. documented in this encounterGuernsey Memorial Hospital07-18-2024 Telephone encounter Note* Telephone Encounter - Joann Walsh RN - 09/25/2023 1:08 PM EDT Summary: MFM Insulin Pump/Insulin Injection Dosing Called. No Answer. Message left regarding needing an update on current insulin pump/insulin injection dosing and needing to schedule an in person MFM appointment or be admitted for glucose optimization. Requested return call. [facility] Work Phone: [phone]) 661-641307-18-2024 Miscellaneous Notes* Telephone Encounter - Joann Walsh RN - 09/25/2023 9:04 AM EDTSummary: MFM Insulin Pump Settings/ Dosing & Lantuus Dosing Called. No answer. Requested return call to verify current insulin dosing with Omnipod 5; current Lantus dose; and if Omnipod in place since 09/20/23 or if utilizing emergency plan if insulin pump notin place. Requested return call to obtain above information. My Chart message also sent. documented in this encounterGuernsey [facility] Hospital07-18-2024 Telephone encounter Note* Telephone Encounter - Joann Walsh RN - 09/25/2023 9:04 AM EDT Summary: MFM Insulin Pump Settings/ Dosing & Lantuus Dosing Called. No answer. Requested return call to verify current insulin dosing with Omnipod 5; current Lantus dose; and if Omnipod in place since 09/20/23 or if utilizing emergency plan if insulin pump notin place. Requested return call to obtain above information. My Chart message also sent. [employer] Work Phone: [phone]) 270-257707-17-2024 Miscellaneous Notes* Telephone Encounter - Wendy Lambert RN - 09/24/2023 9:47 AM EDT Attempted to contact patient regarding MyChart Video Visit scheduled at 9:45 a.m. No answer. LVM informing patient to log on for visit within the next 10-15 minutes or call office if needing to cancel or reschedule. Provided office call back number. documented in this encounterEast Ohio Regional Hospitalremocean07-17-2024 Telephone encounter Note* Telephone Encounter - Wendy Lambert RN - 09/24/2023 9:47 AM EDT Attempted to contact patient regarding MyChart Video Visit scheduled at 9:45 a.m. No answer. LVM informing patient to log on for visit within the next 10-15 minutes or call office if needing to cancel or reschedule. Provided office call back number. [facility]07-10-2024 History of Present illness Narrative* Billie Enrique RN - 09/17/2023 1:00 PM EDT Headache/epigastric pain/blurry vision/swelling? no Cramping/contractions? no Abnormal vaginal discharge? no Spotting or vaginal bleeding? no Loss of fluid like your water may have broken? no Recent ER visits or hospitalizations? no Any concerns that you would like me to mention to the provider today? no * Althea Jeong MD - 09/17/2023 1:00 PM EDT [facility] Office Visit Note HPI: Tess Pfeiffer is a 27 y.o. @ 34w1d who is presenting for an office visit regarding Chief Complaint Patient presents with BMI Hypertension polyhydramnios Patient Active Problem List Diagnosis with type 2 diabetes mellitus in third trimester HTN in , chronic Hypertension affecting in second trimester Obesity during BMI 50.0-59.9, adult ([facility]) Depression affecting , antepartum . Her is complicated by OB History 1 Para 0 Term 0 0 AB 0 Living 0 SAB 0 IAB 0 Ectopic 0 Multiple 0 Live Births 0 Obstetric Comments Type 2 diabtetes She reports that she is doing well. She reports normal movements and she denies LOF, contractions, vaginal bleeding, headache, blurry vision, RUQ pain and edema. The primary encounter diagnosis was Type 2 diabetes mellitus in third trimester, antepartum. Diagnoses of Insulin pump in place, Polyhydramnios in third trimester complication, single or unspecified fetus, Chronic hypertension complicating or reason for care during , third trimester, Obesity during , BMI 50.0-59.9, adult ([facility]), Depression affecting , antepartum, and34 weeks gestation of were also pertinent to this visit. PAST OBSTETRICAL HISTORY: OB History 1 Para 0 Term 0 0 AB 0 Living 0 SAB 0 IAB 0 Ectopic 0 Multiple 0 Live Births 0 Obstetric Comments Type 2 diabtetes SURGICAL HISTORY: No past surgical history on file. ALLERGIES: No Known Allergies CURRENT MEDICATIONS: Current Outpatient Medications: aspirin 81 mg, Take 1 tablet (81 mg total) by mouth in the morning., Disp: , Rfl: desvenlafaxine (PRISTIQ) 100 mg 24 hr tablet, Take 1 tablet (100 mg total) by mouth in the morning., Disp: , Rfl: DEXCOM G6 SENSOR device, 1 Unit by abdominal subcutaneous route Daily at 0700., Disp: 9 each, Rfl: 3 DEXCOM G6 TRANSMITTER device, 1 Unit by abdominal subcutaneous route every 3 (three) months., Disp:1 each, Rfl: 3 insulin glargine (LANTUS SOLOSTAR U-100 INSULIN) 100 unit/mL (3 mL) insulin pen, Prime with 2 unitsthen inject 32 units every evening in addition to your pump. For pump failure take 100 units of lantus daily, Disp: 15 mL, Rfl: 3 insulin lispro (HumaLOG KwikPen Insulin) 200 unit/mL (3 mL) insulin pen, Use up to 150 units per day via insulin pump., Disp: 70 mL, Rfl: 3 labetaloL (NORMODYNE) 200 mg tablet, Take 1.5 tablets (300 mg total) by mouth 3 (three) times a day., Disp: , Rfl: M-MADHURI PLUS 27 mg iron- 1 mg tablet, Take 1 tablet by mouth in the morning., Disp: , Rfl: NIFEdipine XL (PROCARDIA XL) 30 mg 24 hr tablet, Take 1 tablet (30 mg total) by mouth in the morning., Disp: , Rfl: OMNIPOD 5 G6 PODS, GEN 5, cartridge, 1 Unit by abdominal subcutaneous route once daily. Per pump settings, Disp: 30 each, Rfl: 6 pantoprazole (PROTONIX) 40 mg EC tablet, Take 1 tablet (40 mg total) by mouth every morning before breakfast., Disp: , Rfl: pen needle, diabetic (BD ULTRA-FINE NAIMA PEN NEEDLE) 32 gauge x 5/32 needle, Use a new needle witheach injection, Disp: 100 each, Rfl: 6 lamoTRIgine (LaMICtal) 100 mg tablet, Take 1 tablet (100 mg total) by mouth in the morning. Pt to take 2 tablets daily total 200mg., Disp: , Rfl: lancets misc, 1 each by miscellaneous route in the morning and 1 each at noon and 1 each in the evening and 1 each before bedtime. Using true metrix meter and strips and lancets.. (Patient not taking: Reported on 08/20/2023), Disp: 150 each, Rfl: 6 ondansetron ODT (ZOFRAN ODT) 4 mg disintegrating tablet, Dissolve 1 tablet (4 mg total) on tongue every 8 (eight) hours as needed. (Patient not taking: Reported on 08/20/2023), Disp: , Rfl: LABS: No results found for: GLUF , MICROALBUR , LDLCALC , CREATININE Lab Results Component Value Date TSH 1.051 04/01/2023 TSH 1.05 04/01/2023 Lab Results Component Value Date HGBA1C 7.9 (A) 04/01/2023 REVIEW OF SYSTEMS: Head and Neck: Negative for any dizziness and headaches. Cardiovascular and Respiratory System: Denies any chest pain, shortness of breath, and coughing. Abdominal and System: Denies any abdominal pain, nausea, vomiting, vaginal bleeding, and vaginal discharge PHYSICAL EXAMINATION: BP 137/81 (BP Site: Right Arm, BP Postition: Sitting, BP CUFF SIZE: Other) Comment (BP CUFF SIZE): adult 12 maroon Pulse 98 Gravid abdomen, Alert & Oriented, Respirations not labored, steady gait. DISCUSSION: 1. Type 2 diabetes mellitus in third trimester, antepartum 2. Insulin pump in place See below 3. Polyhydramnios in third trimester complication, single or unspecified fetus Polyhydramnios was noted on sonographic assessment today. Polyhydramnios was noted to be mild with largest vertical pocket measuring at 10.4 cm. The degree of polyhydramnios is frequently categorized as mild, moderate, or severe, based on an WEI of 24.0-29.9 cm, 30.0-34.9 cm, and >35 cm, or a DVP of 8-11 cm, 12-15 cm, or >16 cm, respectively. Using these definitions, she has mild polyhydramnios noted today and that accounts for approximately 65-70% of cases. The identification of polyhydramnios should prompt a search for an underlying etiology. The 2 most common causes of polyhydramnios are maternal diabetes mellitus and anomalies. I discussed with the patient the potential etiologies and complications of polyhydramnios. The mostcommon cause is idiopathic with no known etiology. The second most common etiology is diabetes. Other less likely causes include chromosomal or genetic abnormalities and/or anatomic abnormalities that inhibit normal swallowing. I discussed with her the potential for amniocentesis for definitive diagnosis. We discussed the risk of amniocentesis including infection, rupture of membranes, delivery, and loss. After considering risks versus benefits, the patient chose not to proceed with an amniocentesis. She has had cell free DNA aneuploidy screen drawn x2 however no results were obtained at that time. She had a discussion with Dr. Cam and she decided not to proceed withamniocentesis at that time. I think it is reasonable to await evaluation accordingly. In addition we discussed the increased risk for complications including premature labor, malpresentation, stillbirth, and hemorrhage.Even in the absence of diabetes, idiopathic polyhydramnios is associated with macrosomia in approximately 15-30% of cases, and affected patients are significantly more likely to undergo delivery. Progression of polyhydramnios is suggestive of an underlying structural or genetic etiology. Reports associating idiopathic polyhydramnios with mortality have been inconsistent and there are no data to suggest that surveillance improves outcomes and surveillance is not required for the sole indication of mild idiopathic polyhydramnios. 4. Chronic hypertension complicating or reason for care during , third trimester Blood pressure is within normal limits today. She reported that she had elevated blood pressures aswell as occasional headaches recently for which she was evaluated and had a [address] Trejo is following her in regards to that. He did increase her antihypertensive medications by adding Procardia. We discussed that if she continues to need escalation of her antihypertensive medication or she hasnew symptoms or her blood pressure is severely elevated into the 160s over 110s, to present for further evaluation. If she meets criteria for severe features then delivery would be recommended since she is beyond 34 weeks of gestation. Otherwise recommend delivery at 37 weeks or earlier if clinically indicated. 5. Obesity during 6. BMI 50.0-59.9, adult ([facility]) 7. Depression affecting , antepartum Reports that she is doing well overall. 8. 34 weeks gestation of Type 2 DM. SUMMARY/RECOMMENDATION: The following is a summary of our recommendations: 1. Initial blood work:to follow with primary OB 2. Medication: Stop automated basal Using U200 insulin. All settings above reflect u200 insulin NOT u100 Adding lantus 32 units nightly in addition to the pump Basal Rate Total Basal Dose: 35.4 units/day Time units/hr 12:00 AM 1.5 6:00 AM 1.5 12:00 PM 1.5 4:00 PM 1.5 8:00 PM 1.35 Blood Glucose Target Time mg/dL 12:00 AM 110 - 110 Sensitivity Factor Time mg/dL/unit 12:00 AM 30 Carb Ratio Time g/unit 12:00 AM 2.5 12:00 PM 2.5 8:00 PM 2.5 changed to Stop automated basal Using U200 insulin. All [...] 2 Keep Lantus 32 units at bedtime 3. Referrals:None 3. testing: NST twice weekly and DVP weekly growth ultrasounds every 4 weeks growth scan one week before planned delivery if attempt for a vaginal delviery 4. Delivery timing: Consider planned delivery at 37 weeks or before if indicated Use 1/2 dose of insulin the night before her planned delivery. 5. Mode of delivery per routine OB care 6. Glucose control in labor: Consider using Epic order set OB DIABETES MANAGEMENT during her labor. If on insulin pump consider basal insulin 0.3 Units/hour 7. Post : May use pre- regimen and ISS while hospitalized. If unknown may use 1/3 dose last regimen and ISS while hospitalized. 8. Follow-up appointment: In 1 weeks to Maternal- Medicine via video visit I asked her to keep sending values to us weekly by e-mail to: or by fax to: [phone] The patient is to continue with routine care in your office [facility], the CDC, and other organizations representing maternal and public health professionals recommend that , , and lactating people and those considering receive the COVID-19 vaccination. Vaccination is the best method to reduce maternal and complications of SARS-CoV-2 infection. This document was created with [employer] technology. Though I make every effort to review the dictation as it is transcribed, on occasion the spoken word can be misinterpreted by the technology leading to inappropriate words, phrases, or sentences. This note is addressed to the requesting provider as a consultation for clinical guidance. Specificmedical abbreviations are occasionally used and those are generally approved by the [place]o?Board of?Obstetrics and?Gynecology?as well as?Anais s abbreviations. The above plan of care was based solely on the diagnoses for which a consultation was requested. ?More frequent testing may be indicated based on her other medical/obstetrical conditions. The management of other or medical conditions is beyond the scope of requested consultation and will [place] to be followed by the primary chief operator synthesis or primary care provider. Thank you for allowing me to participate in her care. Please contact me if you have any concerns. documented in this encounterEast [facility] HospitalBody [facility] [id number] Hospital Discharge instructions Patient Education 08/21/2023 23:40:58 Vaginal Bleeding During , Third Trimester, Ezvg-ce-Ydte Vaginal Bleeding During , Third Trimester A [...] you with your normal activities. Medicines Take pwle-nbh-kwyfckm and prescription medicines only as told by [...] provider. Document Revised: 11/16/2020 Document Reviewed: 11/16/2020 [employer] Patient Education 2022 [employer]. 08/21/2023 23:40:58 Hypertension During , Rwjm-qw-Lxry Hypertension During Hypertension is also called high blood pressure. High blood pressure means that the force of the blood moving in your body is high enough to cause problems for you and your baby. Different types of high blood pressure can happen during . The types are: High blood pressure before you got . This is called chronic hypertension. This can continueduring your . Your doctor will want to [...] have a higher chance of developing high bloodpressure: As you get older. If you get [...] visits. Your doctor will check your blood pressureand make sure that your is progressing as it should. Treatment should start early if a problem is found. How is this treated? Treatment for high blood pressure during can vary. It depends on the type of high blood pressure you have and how serious it is. If you were taking medicine for your blood pressure before you got , talk with your doctor.You may need to change the medicine during [...] the hospital so you and your baby canbe watched closely. You may also need to [...] are best for you. General instructions Take yxeq-ehk-bdlqgsf and prescription medicines only as told by [...] away. Call your local emergency services (911 [facility] [place] Do not wait to see if [...] provider. Document Revised: 11/16/2020 Document Reviewed: 11/16/2020 [employer] Patient Education 2022 [employer] 08/21/2023 23:40:58 Form - Movement Counts [...] if you have been counting for 2 hours.Write down the stop time. 6.If you do [...] provider. Document Revised: 10/14/2019 Document Reviewed: 10/14/2019 KDPOF Patient Education 2022 [employer]. Follow Up Care 08/21/2023 21:25:46 With:Mario CONWAY Address: [address] [place] [address] [facility] (1) When:08/22/2023 Comments:Call Dr if fever>100.5 F, heavy bleedingCall for severe abdominal painCall physician for heavy vaginal bleedingCall physician if symptoms worsenReturn for contractions closer, longer, harderReturnfor decreased movementReturn if ruptured membranes or vaginal bleeding [facility]06-14-2024 NoteThe following Patient Education Materials have been given to the patient: [facility] Discharge instructions Patient Education 08/21/2023 21:19:51 Ankle Fracture [...] bone. It can also happen if the outerbone is broken and the strong tissues that connect bones to each other (ligaments) are also injuredat the inner ankle. This type of fracture [...] X-rays. You may also have a CT scanor an MRI. How is this treated? Treatment for this condition depends on the type of ankle fracture you have. Stable fractures are treated with a cast, boot, or splint to hold the ankle still and crutches to avoid putting weight on the ankle until the fracture heals. Unstable fractures require surgery to ensure that the bones healproperly. After surgery, you will have a splint. [...] Remove it only as told by your healthcare provider. Loosen it if your toes tingle, [...] your health care provider approves. Ask your healthcare provider if you may take showers. You [...] your health care provider. General instructions Take vcur-leg-lwmdrgh and prescription medicines only as told by your health care provider. Ask your health care provider when it is safe to drive if you have a cast, boot, or splint on your ankle. Do not use any products that contain nicotine or tobacco, such as cigarettes, e- cigarettes, and chewing tobacco. These can delay bone [...] when you are sitting or lying down mayhelp with pain relief. Follow instructions as told by your health care provider. This information is not intended to replace advice given to you by your health care provider. Make sure you discuss any questions you have with your health care provider. Document Revised: 05/25/2020 Document Reviewed: 05/25/2020 KDPOF Patient Education 2022 [employer]. Follow Up Care 08/21/2023 19:05:36 With:Roosevelt Maldonado Address: [address] [place] [address]- Business (1) When:08/24/2023 21:04:34 With:Aleksey Ray Address: [address] [place] [address]- Business (1) When:Within 3 Day(s) [facility]06-13-2024 Evaluation + Plan noteExtracted from: Title:ED Note [...] Views Right XR Wrist 3+ Views Left [facility]06-12-2024 History of Present illness Narrative* Sg Robertson MD - 08/20/2023 9:00 AM EDT TELEHEALTH/TELEVIDEO VISIT-VISIT RECOMMENDATIONS ARE OUTLINED IN BOLD AT THE BOTTOM OF THIS NOTE. Dear Dr. Conway: Thank you for sending this patient secondary to type 2 diabetes, chronic hypertension and other issues previously outlined (Primary consult by Dr. Cam earlier in ). Total time patient seen by Dr. Robertson by telehealth for consult or follow up visit was 18 minutes. 9 of the telehealth t shyanne was for counseling or coordination of care. Additionally 4 minutes were for preparation prior to the visit and 5 minutes were for post visit preparation of report. Tele health visit scheduled dueto COVID-19 pandemic emergency. All of the counseling and coordination time was encounter provider with patient. Please also see any US note and (if concomitant visit) Genetic counselor note. Total time by Dr. Robertson is in addition to time needed to perform and interpret any ultrasound. Overall care, Zika virus screening, Covid-19 vaccination counseling, influenza vaccinationcounseling and unrelated Genetic screening (cystic fibrosis, muscular dystrophy, thalassemia, sickle cell trait, etc.) is as per the excellent care of the patient's provider team. Please note that ultrasound is not diagnostic for aneuploidy, will not detect all structural abnormalities, and is not diagnostic for Genetic diseases, even if multiple exams are performed during a given . Report prepared via voice recognition software. Although report is reviewed for accuracy prior to finalization, unrecognized typographical errors may be present. Please contact us with any questions regarding report. Video Visit via Real-time Synchronous Audiovisual Provider Location: [facility] AT [address] [id number] Patient Location: {VIDEO VISIT - PATIENT LOCATION: Home in [place] Patient Location Geriatrician: NA Video Visit Consent Statement: I discussed risks, benefits, and alternatives of a real-time synchronous audiovisual consultation with the patient (and any accompanying persons) including the risks that the patient's personal health details and medical records will be discussed over real-time, synchronous, interactive video/audio/telecommunication technology, the visit will not be recorded withoutthe express consent of both the provider and the patient, and that there are some limitations compared to xgwv-sh-slel evaluations. We elected to proceed Thank you for sending this patient. Sg Robertson MD Maternal Medicine Professor, [facility]. [phone]- Office [phone]- Personal Cell Phone Office Note: Type 2 diabetes in Obesity in Chronic hypertension in Other issues as outlined previously Current Outpatient Medications on File Prior to Visit Medication Sig aspirin 81 mg Take 1 tablet (81 mg total) by mouth in the morning. desvenlafaxine (PRISTIQ) 100 mg 24 hr tablet Take 1 tablet (100 mg total) by mouth in the morning. DEXCOM G6 SENSOR device 1 Unit by abdominal subcutaneous route Daily at 0700. DEXCOM G6 TRANSMITTER device 1 Unit by abdominal subcutaneous route every 3 (three) months. insulin glargine (LANTUS SOLOSTAR U-100 INSULIN) 100 unit/mL (3 mL) insulin pen Prime with 2 units then inject 24 units every evening in addition to your pump. For pump failure take 65 units of lantus daily insulin lispro (HumaLOG KwikPen Insulin) 200 unit/mL (3 mL) insulin pen Use up to 150 units per dayvia insulin pump. labetaloL (NORMODYNE) 200 mg tablet Take 1.5 tablets (300 mg total) by mouth 3 (three) times a day. lamoTRIgine (LaMICtal) 100 mg tablet Take 1 tablet (100 mg total) by mouth in the morning. Pt to take 2 tablets daily total 200mg. M-MADHURI PLUS 27 mg iron- 1 mg tablet Take 1 tablet by mouth in the morning. OMNIPOD 5 G6 PODS, GEN 5, cartridge 1 Unit by abdominal subcutaneous route once daily. Per pump settings pantoprazole (PROTONIX) 40 mg EC tablet Take 1 tablet (40 mg total) by mouth every morning before breakfast. pen needle, diabetic (BD ULTRA-FINE NAIMA PEN NEEDLE) 32 gauge x 5/32 needle Use a new needle with each injection lancets misc 1 each by miscellaneous route in the morning and 1 each at noon and 1 each in the evening and 1 each before bedtime. Using true metrix meter and strips and lancets.. (Patient not taking:Reported on 08/20/2023) ondansetron ODT (ZOFRAN ODT) 4 mg disintegrating tablet Dissolve 1 tablet (4 mg total) on tongue every 8 (eight) hours as needed. (Patient not taking: Reported on 08/20/2023) No current facility-administered medications on file prior to visit. Insulin pump settings last adjusted on 08/17/2023 and outlined in care coordination note by Dr. Burr- please see the Care Coordination note. This patient is a 27-year-old 1 para 0 at 30 weeks and 1 day gestation. Comorbidities include type 2 diabetes, hypertension, and diabetes. The patient also has depression. She reports stability from depression standpoint. The patient saw my partner earlier in . This visit was predominantly a mid check in. The patient also sees Dr. Burr. Dr. Burr last adjusted insulin on 08/17/2023. Adjustments are as noted. The patient indicates that she is to follow up with theendocrinologist within the next 1-2 days. The patient reports glycemic control somewhat better. I still see significant issues with insulin resistance. I confirmed and the patient understands that she should follow-up with medicine teacher. The patient endorses movement and denies preeclampsia symptoms or other related acute symptomatology. We confirmed the patient receives surveillance by her primary OB provider. The patient had no additional issues or questions today. She reports stable blood pressure control although we were not able to directly evaluate today. Comments, Conclusions: Diabetes control modestly improved. The patient has ongoing follow-up with medicine teacher. We willcopy are note. The patient anticipates follow-up later this week. Adjustments were recently made sowe did not make any changes today although subsequently changes may be indicated. Recommendations (Plan): Ongoing follow up with Dr. Burr. The patient indicated that will follow up within the next 1-2 days. We will copy our note. The patient indicated she receives twice per week surveillance in her primary OB provider office. Surveillance should continue. We were not able to directly address blood pressure today. The patient reports good control. Systolic blood pressure should be maintained below 140 and diastolic blood pressure should be maintained below 90 mmHg. With acute exacerbation, recommend the underlying diagnosis of superimposed preeclampsia is considered. We will schedule telehealth visit in 2 weeks. In 4 weeks ( 09/17/2023 ), the patient is scheduled to come to our office for late imaging. We will arrange an in-person visit then. Primary recommendations as previously outlined by my partner (Dr. Cam 07/22/2023- [facility], with routing to Dr. Conway). Thank you for letting us interact with this patient. The patient will have follow-up arranged in our office or in our system. Diabetes follow-up by medicine teacher. Primary management including overall care including consideration of advanced manufacturing consultant recommendations as per the excellent care ofthe patient's primary OB provider. If we otherwise need to see the patient or our help is needed before next visit, please contact us and or schedule accordingly as applicable. [facility] History of Present illness Narrative* Linda Hines RN - 08/13/2023 1:45 PM EDT Patient is here for a F/U office visit with Dr Burr for T2DM. Patient is currently 29w1d . +FM Headache/epigastric pain/blurry vision/swelling? Yes, mild swelling Cramping/contractions? No Abnormal vaginal discharge? No Spotting or vaginal bleeding? No Loss of fluid like your water may have broken? No Recent ER visits or hospitalizations? No * Leana Burr MD - 08/13/2023 1:45 PM EDT [facility]- Diabetes Visit Tess Pfeiffer is a [...] adjustments. Patient is feeling well today. She is at 29w1d with Estimated Date of Delivery: 10/28/23. She is referred from [facility] who is managing along with us. She has had her diabetes education with [facility]. Please see media for full pump download. Average BG 149. Running high overnight despite also takinglantus 18 units in addition to her pump. Bolusing is inconsistent (once to 4 times per day). Eatingusually 60-75 grams of carbohydrates. She is now using u200 insulin through her pump. Started beginning of August. All pump rates now reflecting u200 dosing. She feels baby move. No contractions. No pain. Increased nausea without vomiting. Past admissions for DKA within last year: none. Complications: History of OR, CHF: none Medications none Last Lipid panel drawn due after History of HTN: no Medications none History of Diabetic Retinopathy: unknown. Last seen Speech Lang Path unknown History of peripheral neuropathy: none Medications [...] History: Diagnosis Date Anxiety Depression Diabetes mellitus ([facility]) Disease of thyroid gland Hypertension History reviewed. [...] on file Tobacco Use Smoking status: Never Passive exposure: Never Smokeless tobacco: Never Vaping Use Vaping status: Never Used Substance and Sexual Activity Alcohol use: Not Currently Drug use: Never Sexual activity: Yes Partners: Male control/protection: Other Other Topics Concern Not on file Social History Narrative Not on file Social Determinants of Health Financial Resource Strain: Not on file Food Insecurity: No Food Insecurity (08/13/2023) Hunger Screening Food Insecurity - Worry: Never True Food Insecurity - Inability: Never True Transportation Needs: Not on file Physical Activity: Not on file Stress: Not on file Social Connections: Not on file Interpersonal Safety: Unknown (05/01/2023) [facility] [place] Safety & Environment Fear of Current or Ex-Partner: Not on file Emotionally Abused: Not on file Physically Abused: Not on file Sexually Abused: Not on file Physically or Sexually Abused: Not on file Housing Instability: Not on file Current Outpatient Medications: aspirin 81 mg, Take 1 tablet (81 mg total) by mouth in the morning., Disp: , Rfl: desvenlafaxine (PRISTIQ) 100 mg 24 hr tablet, Take 1 tablet (100 mg total) by mouth in the morning., Disp: , Rfl: DEXCOM G6 SENSOR device, 1 Unit by abdominal subcutaneous route Daily at 0700., Disp: 9 each, Rfl: 3 DEXCOM G6 TRANSMITTER device, 1 Unit by abdominal subcutaneous route every 3 (three) months., Disp:1 each, Rfl: 3 insulin lispro (HumaLOG KwikPen Insulin) 200 unit/mL (3 mL) insulin pen, Use up to 150 units per day via insulin pump., Disp: 70 mL, Rfl: 3 labetaloL (NORMODYNE) 200 mg tablet, Take 1.5 tablets (300 mg total) by mouth 3 (three) times a day., Disp: , Rfl: lamoTRIgine (LaMICtal) 100 mg tablet, Take 1 tablet (100 mg total) by mouth in the morning. Pt to take 2 tablets daily total 200mg., Disp: , Rfl: lancets misc, 1 each by miscellaneous route in the morning and 1 each at noon and 1 each in the evening and 1 each before bedtime. Using true metrix meter and strips and lancets.., Disp: 150 each, Rfl: 6 M- PLUS 27 mg iron- 1 mg tablet, Take 1 tablet by mouth in the morning., Disp: , Rfl: OMNIPOD 5 G6 PODS, GEN 5, cartridge, 1 Unit by abdominal subcutaneous route once daily. Per pump settings, Disp: 30 each, Rfl: 6 ondansetron ODT (ZOFRAN ODT) 4 mg disintegrating tablet, Dissolve 1 tablet (4 mg total) on tongue every 8 (eight) hours as needed., Disp: , Rfl: pantoprazole (PROTONIX) 40 mg EC tablet, Take 1 tablet (40 mg total) by mouth every morning before breakfast., Disp: , Rfl: insulin glargine (LANTUS SOLOSTAR U-100 INSULIN) 100 unit/mL (3 mL) insulin pen, Prime with 2 unitsthen inject 24 units every evening in addition to your pump. For pump failure take 65 units of lantus daily, Disp: 15 mL, Rfl: 3 metoprolol tartrate (LOPRESSOR) 25 mg tablet, Take 1 tablet (25 mg total) by mouth every 12 (twelve) hours. (Patient not taking: Reported on 06/23/2023), Disp: , Rfl: pen needle, diabetic (BD ULTRA-FINE NAIMA PEN NEEDLE) 32 gauge x 5/32 needle, Use a new needle witheach injection (Patient not taking: Reported on 07/10/2023), Disp: 100 each, Rfl: 6 There are no hospital problems to display for this patient. EXAM: Blood pressure 123/74, pulse 109, weight 128 kg (282 lb 3.2 oz). Body mass index is 55.11 kg/m . Patient reports BP usually around 132/ 76. Yesterday at [place] 158/99 with mild headache now resolved General- awake/ alert/ pleasant Cardiac: RRR Respiratory: CTAB Abdomen: soft, non-distended Extremities: appropriate coloration, bilateral pulses, no rashes visible Neuro: appropriate gait, appropriate mentation Foot Exam: Visual: no cuts/ sores. Appropriate color, hair growth. Toenails without discoloration. No deformities. No calluses. Palpation: normal DP pulses, warm to touch Monofilament test: positive Appropriate ambulation Assessment and Plan Tess Pfeiffer is a 27 y.o. with type 2 diabetes. She is now at 29w1d with EstimatedDate of Delivery: 10/28/23. She has had diabetes education with [facility]. We reviewed the following We have discussed the issue of insulin-dependent diabetes mellitus and the effect of in detail. There is an elevated risk of malformation of the order of 22% in those who have [id number] 8.5 and higher. Patient aware that maternal [...] but improving control. A1c goal 6% in A1c March 2023: 7.9% A1c 6.8% June 2023 A1c August 2023: 6.7% Medications: GIVE CORRECTION DOSES IN BETWEEN MEALS (2 HOURS OR MORE AFTER THE MEAL) IF BG ELEVATED. ESPECIALLY IMPORTANT BEFORE BED USING U200 insulin and LANTUS Insulin Instructions Pump Settings Last edited by Leana Burr MD on 08/17/2023 at 8:42 PM Stop automated basal Using U200 insulin. All settings above reflect u200 insulin NOT u100 Adding lantus 24 units nightly in addition to the pump Basal Rate Total Basal Dose: 35.4 units/day Time units/hr 12:00 AM 1.5 6:00 AM 1.5 12:00 PM 1.5 4:00 PM 1.5 8:00 PM 1.35 Blood Glucose Target Time mg/dL 12:00 AM 110 - 110 Sensitivity Factor Time mg/dL/unit 12:00 AM 30 Carb Ratio Time g/unit 12:00 AM 3 12:00 PM 2.5 8:00 PM 3 Labs: YEYO Ab negative with elevated c peptide, confirms T2DM. Increased options for medication and lifestyle changes after / nursing Lifestyle changes: eat breakfast: try low sugar protein shakes or bermudian yogurt if appetite lower inthe AM. Eggs, avoid cereal. Try to add more protein and vegetables, aim for no more than 30 grams of carbs for meal. Complications/ comorbidities Elevated A1c and blood glucose [...] once per trimester with MFM as well. May Glucose Monitoring 07/29/23 LEANA BURR MD [facility] documented [facility] Instructions* Patient Instructions* Leana Burr MD - 08/13/2023 1:45 PM EDT Insulin Instructions Pump Settings Last edited by Leana Burr MD on 08/13/2023 at 2:20 PM Stop automated basal Using U200 insulin. All settings above reflect u200 insulin NOT u100 Adding lantus 24 units nightly in addition to the pump Basal Rate Total Basal Dose: 35.4 units/day Time units/hr 12:00 AM 1.5 6:00 AM 1.5 12:00 PM 1.5 4:00 PM 1.5 8:00 PM 1.35 Blood Glucose Target Time mg/dL 12:00 AM 110 - 110 Sensitivity Factor Time mg/dL/unit 12:00 AM 30 Carb Ratio Time g/unit 12:00 AM 3 12:00 PM 2.5 8:00 PM 3 Night before c section: keep pump the same but cut lantus in half Morning of: keep pump the same. Give correction boluses if BG over 140. May correct up to every 2 hours During c section: reduce pump temporary basal to 70% (down 30%) for 4 hours After delivery: Switch basal to basal 1 (half the insulin you were taking before c section) Change carb ratios to double current ratio (example if 1:3 grams change to 1: 6 grams) Change correction to double (example if 1:30 take 1:60) Change target to 120 Stop lantus after delivery documented in this [facility]Gu[facility]05-[facility]24 History of Present illness Narrative* Leana Burr MD - 07/29/2023 1:45 PM EDT [facility]- Diabetes Visit Tess Pfeiffer is a [...] adjustments. Patient is feeling well today. She is at 27w0d with Estimated Date of Delivery: 10/28/23. She is referred from [facility] who is managing along with us. She has had her diabetes education with [facility]. Please see media for full pump download. Average BG 153. Underbolusing for her meals. Eating closerto 60 grams per meal but bolusing only for 30-36. Now taking lantus 12 units nightly in addition toher pump. Not giving correction insulin at all with the pump. She is starting to feel baby move. No contractions. No pain. Increased nausea without vomiting. Past admissions for DKA within last year: none. Complications: History of OR, CHF: none Medications none Last Lipid panel drawn due after History of HTN: no Medications none History of Diabetic Retinopathy: unknown. Last seen Speech Lang Path unknown History of peripheral neuropathy: none Medications [...] History: Diagnosis Date Anxiety Depression Diabetes mellitus ([facility]) Disease of thyroid gland Hypertension No past [...] on file Tobacco Use Smoking status: Never Passive exposure: Never Smokeless tobacco: Never Vaping Use Vaping status: Never Used Substance and Sexual Activity Alcohol use: Not Currently Drug use: Never Sexual activity: Yes Partners: Male control/protection: Other Other Topics Concern Not on file Social History Narrative Not on file Social Determinants of Health Financial Resource Strain: Not on file Food Insecurity: No Food Insecurity (07/10/2023) Hunger Screening Food Insecurity - Worry: Never True Food Insecurity - Inability: Never True Transportation Needs: Not on file Physical Activity: Not on file Stress: Not on file Social Connections: Not on file Interpersonal Safety: Unknown (05/01/2023) Received from [facility] Safety & Environment Fear of Current or Ex-Partner: Not on file Emotionally Abused: Not on file Physically Abused: Not on file Sexually Abused: Not on file Physically or Sexually Abused: Not on file Housing Instability: Not on file Current Outpatient Medications: aspirin 81 mg, Take 1 tablet (81 mg total) by mouth in the morning., Disp: , Rfl: desvenlafaxine (PRISTIQ) 100 mg 24 hr tablet, Take 1 tablet (100 mg total) by mouth in the morning., Disp: , Rfl: DEXCOM G6 SENSOR device, 1 Unit by abdominal subcutaneous route Daily at 0700., Disp: 9 each, Rfl: 3 DEXCOM G6 TRANSMITTER device, 1 Unit by abdominal subcutaneous route every 3 (three) months., Disp:1 each, Rfl: 3 insulin glargine (LANTUS SOLOSTAR U-100 INSULIN) 100 unit/mL (3 mL) insulin pen, Prime with 2 unitsthen inject 18 units every evening in addition to your pump. For pump failure take 65 units of lantus daily, Disp: 15 mL, Rfl: 3 insulin lispro (HumaLOG KwikPen Insulin) 200 unit/mL (3 mL) insulin pen, Use up to 150 units per day via insulin pump., Disp: 70 mL, Rfl: 3 labetaloL (NORMODYNE) 200 mg tablet, Take 1 tablet (200 mg total) by mouth 3 (three) times a day., Disp: , Rfl: lamoTRIgine (LaMICtal) 100 mg tablet, Take 1 tablet (100 mg total) by mouth in the morning. Pt to take 2 tablets daily total 200mg., Disp: , Rfl: lancets misc, 1 each by miscellaneous route in the morning and 1 each at noon and 1 each in the evening and 1 each before bedtime. Using true metrix meter and strips and lancets.., Disp: 150 each, Rfl: 6 M- PLUS 27 mg iron- 1 mg tablet, Take 1 tablet by mouth in the morning., Disp: , Rfl: metoprolol tartrate (LOPRESSOR) 25 mg tablet, Take 1 tablet (25 mg total) by mouth every 12 (twelve) hours. (Patient not taking: Reported on 06/23/2023), Disp: , Rfl: OMNIPOD 5 G6 PODS, GEN 5, cartridge, 1 Unit by abdominal subcutaneous route once daily. Per pump settings, Disp: 30 each, Rfl: 6 ondansetron ODT (ZOFRAN ODT) 4 mg disintegrating tablet, Dissolve 1 tablet (4 mg total) on tongue every 8 (eight) hours as needed., Disp: , Rfl: pantoprazole (PROTONIX) 40 mg EC tablet, Take 1 tablet (40 mg total) by mouth every morning before breakfast., Disp: , Rfl: pen needle, diabetic (BD ULTRA-FINE NAIMA PEN NEEDLE) 32 gauge x 5/32 needle, Use a new needle witheach injection (Patient not taking: Reported on 07/10/2023), Disp: 100 each, Rfl: 6 There are no hospital problems to display for this patient. EXAM: There were no vitals taken for this visit. There is no height or weight on file to calculate BMI. Patient reports BP usually around 132/ 76. Yesterday at [place] 158/99 with mild headache now resolved General- awake/ alert/ pleasant Cardiac: RRR Respiratory: CTAB Abdomen: soft, non-distended Extremities: appropriate coloration, bilateral pulses, no rashes visible Neuro: appropriate gait, appropriate mentation Foot Exam: Visual: no cuts/ sores. Appropriate color, hair growth. Toenails without discoloration. No deformities. No calluses. Palpation: normal DP pulses, warm to touch Monofilament test: positive Appropriate ambulation Assessment and Plan Tess Pfeiffer is a 27 y.o. with type 2 diabetes. She is now at 22w6d with EstimatedDate of Delivery: 10/28/23. She has had diabetes education with [facility]. We reviewed the following We have discussed the issue of insulin-dependent diabetes mellitus and the effect of in detail. There is an elevated risk of malformation of the order of 22% in those who have wjtorfytjoP3T 8.5 and higher. Patient aware that maternal [...] but improving control. A1c goal 6% in A1c March 2023: 7.9% A1c 6.8% June 2023 Medications: GIVE CORRECTION DOSES IN BETWEEN MEALS (2 HOURS OR MORE AFTER THE MEAL) IF BG ELEVATED. ESPECIALLY IMPORTANT BEFORE BED Insulin Instructions Pump Settings Last edited by Leana Burr MD on 07/29/2023 at 2:00 PM Stop automated basal Adding lantus 18 units nightly in addition to the pump Basal Rate Total Basal Dose: 58.2 units/day Time units/hr 12:00 AM 2.6 6:00 AM 2.4 12:00 PM 2.35 4:00 PM 2.4 8:00 PM 2.3 Blood Glucose Target Time mg/dL 12:00 AM 110 - 110 Sensitivity Factor Time mg/dL/unit 12:00 AM 15 Carb Ratio Time g/unit 12:00 AM 2 12:00 PM 1.5 8:00 PM 2 Labs: YEYO Ab negative with elevated c peptide, confirms T2DM. Increased options for medication and lifestyle changes after / nursing Lifestyle changes: eat breakfast: try low sugar protein shakes or bermudian yogurt if appetite lower inthe AM. Eggs, avoid cereal. Lunch: eating 2 hot pockets. Cut down to one and add vegetables. Eating processed foods for dinner (frozen pizza). Try to add more protein and vegetables, aim for no more than 30 grams of carbs for meal. Complications/ comorbidities Elevated A1c and blood glucose [...] once per trimester with MFM as well. May Glucose Monitoring 07/29/23 MD [facility] documented in this [facility]24 History of Present illness Narrative* Leana Burr MD - 07/23/2023 8:30 AM EDT [facility]- Diabetes Visit Tess [...] adjustments. Patient is feeling well today. She is at 26w1d with Estimated Date of Delivery: 10/28/23. She has had her diabetes education with [facility]. Please see media for full pump download. Average BG 153. Bolusing 2-3 times per day (large boluses at ICR 1: 1.5). She is in target range < 140 only about 33% of the time. She is feeling baby move. No contractions. No pain. Past admissions for DKA within last year: none. Complications: History of OR, CHF: none Medications none Last Lipid panel drawn due after History of HTN: no Medications none History of Diabetic Retinopathy: unknown. Last seen Speech Lang Path unknown History of peripheral neuropathy: none Medications [...] History: Diagnosis Date Anxiety Depression Diabetes mellitus ([facility]) Disease of thyroid gland Hypertension History reviewed. [...] on file Tobacco Use Smoking status: Never Passive exposure: Never Smokeless tobacco: Never Vaping Use Vaping status: Never Used Substance and Sexual Activity Alcohol use: Not Currently Drug use: Never Sexual activity: Yes Partners: Male control/protection: Other Other Topics Concern Not on file Social History Narrative Not on file Social Determinants of Health Financial Resource Strain: Not on file Food Insecurity: No Food Insecurity (07/10/2023) Hunger Screening Food Insecurity - Worry: Never True Food Insecurity - Inability: Never True Transportation Needs: Not on file Physical Activity: Not on file Stress: Not on file Social Connections: Not on file Interpersonal Safety: Unknown (05/01/2023) Received from [facility] [place] Safety & Environment Fear of Current or Ex-Partner: Not on file Emotionally Abused: Not on file Physically Abused: Not on file Sexually Abused: Not on file Physically or Sexually Abused: Not on file Housing Instability: Not on file Current Outpatient Medications: aspirin 81 mg, Take 1 tablet (81 mg total) by mouth in the morning., Disp: , Rfl: desvenlafaxine (PRISTIQ) 100 mg 24 hr tablet, Take 1 tablet (100 mg total) by mouth in the morning., Disp: , Rfl: DEXCOM G6 SENSOR device, 1 Unit by abdominal subcutaneous route Daily at 0700., Disp: 9 each, Rfl: 3 DEXCOM G6 TRANSMITTER device, 1 Unit by abdominal subcutaneous route every 3 (three) months., Disp:1 each, Rfl: 3 insulin glargine (LANTUS SOLOSTAR U-100 INSULIN) 100 unit/mL (3 mL) insulin pen, Prime with 2 unitsthen inject 12 units every evening in addition to your pump. For pump failure take 65 units of lantus daily, Disp: 15 mL, Rfl: 3 insulin lispro (HumaLOG KwikPen Insulin) 200 unit/mL (3 mL) insulin pen, Use up to 150 units per day via insulin pump., Disp: 70 mL, Rfl: 3 labetaloL (NORMODYNE) 200 mg tablet, Take 1 tablet (200 mg total) by mouth 3 (three) times a day., Disp: , Rfl: lamoTRIgine (LaMICtal) 100 mg tablet, Take 1 tablet (100 mg total) by mouth in the morning. Pt to take 2 tablets daily total 200mg., Disp: , Rfl: lancets misc, 1 each by miscellaneous route in the morning and 1 each at noon and 1 each in the evening and 1 each before bedtime. Using true metrix meter and strips and lancets.., Disp: 150 each, Rfl: 6 M- PLUS 27 mg iron- 1 mg tablet, Take 1 tablet by mouth in the morning., Disp: , Rfl: metoprolol tartrate (LOPRESSOR) 25 mg tablet, Take 1 tablet (25 mg total) by mouth every 12 (twelve) hours. (Patient not taking: Reported on 06/23/2023), Disp: , Rfl: OMNIPOD 5 G6 PODS, GEN 5, cartridge, 1 Unit by abdominal subcutaneous route once daily. Per pump settings, Disp: 30 each, Rfl: 6 ondansetron ODT (ZOFRAN ODT) 4 mg disintegrating tablet, Dissolve 1 tablet (4 mg total) on tongue every 8 (eight) hours as needed., Disp: , Rfl: pantoprazole (PROTONIX) 40 mg EC tablet, Take 1 tablet (40 mg total) by mouth every morning before breakfast., Disp: , Rfl: pen needle, diabetic (BD ULTRA-FINE NAIMA PEN NEEDLE) 32 gauge x needle, Use a new needle witheach injection (Patient not taking: Reported on 07/10/2023), Disp: 100 each, Rfl: 6 There are no hospital problems to display for this patient. EXAM: There were no vitals taken for this visit. There is no height or weight on file to calculate BMI. Video visit Assessment and Plan Tess Pfeiffer is a 27 y.o. with type 2 diabetes. She is now at 26w1d with EstimatedDate of Delivery: 10/28/23. She has had diabetes education with [facility]. We reviewed the following We have discussed the issue of insulin-dependent diabetes mellitus and the effect of in detail. There is an elevated risk of malformation of the order of 22% in those who have [id number] 8.5 and higher. Patient aware that maternal hyperglycemia results in hyperglycemia leading to adverse outcomes in the growth and development. We reviewed with her the strategy for improving and outcome should be to achieve euglycemic state. Fasting BG goal 65-90. 1 hour postprandial hyperglycemia < 140. Goal A1c < 6%. She is being treated with insulin pump (unable to tolerate metformin) and has poor control. She hashigh insulin needs which are likely too high for appropriate absorption with the pump. A1c goal 6% in A1c March 2023: 7.9% A1c 6.8% June 2023 Medications: - Add lantus given increased insulin needs and difficulty administering this much insulin via pump site. 12 units nightly. Will likely need to increase from there. - Ordering humalog u200 insulin. If approved will adjust rates early next week to see if she absorbs this insulin better. - Rates seen below are still the rates for u100 insulin until I am able to make changes to her [place] next week Insulin Instructions Pump Settings Last edited by Leana Burr MD on 07/23/2023 at 8:55 AM Stop automated basal Adding lantus 12 units nightly in addition to the pump Basal Rate Total Basal Dose: 58.2 units/day Time units/hr 12:00 AM 2.6 6:00 AM 2.4 12:00 PM 2.35 4:00 PM 2.4 8:00 PM 2.3 Blood Glucose Target Time mg/dL 12:00 AM 110 - 110 Sensitivity Factor Time mg/dL/unit 12:00 AM 15 Carb Ratio Time g/unit 12:00 AM 2 12:00 PM 1.5 8:00 PM 2 Labs: YEYO Ab negative with elevated c peptide, confirms T2DM. Increased options for medication and lifestyle changes after / nursing Lifestyle changes: eat breakfast: try low sugar [...] to MFM. Follow up in 1 week. May Glucose Monitoring 07/23/23 LEANA BURR MD [facility] documented [facility] encounterKer[facility] History of Present illness Narrative* Lottie Cam MD - 07/22/2023 10:00 AM EDT Video Visit via Real-time Synchronous Audiovisual Provider Location: [facility] AT [address] [phone] Patient Location: Patient's home Patient Location Geriatrician: None Video Visit Consent Statement: I discussed risks, benefits, and alternatives of a real-time synchronous audiovisual consultation with the patient (and any accompanying persons) including the risks that the patient's personal health details and medical records will be discussed over real-time, synchronous, interactive video/audio/telecommunication technology, the visit will not be recorded withoutthe express consent of both the provider and the patient, and that there are some limitations compared to ceul-hi-abar evaluations. We elected to proceed. [facility]- [facility] Consult Note Reason For Consult: Type 2 diabetes HPI: Tess Pfeiffer is a 27 y.o. at 26w0d with Estimated Date of Delivery: 10/28/23 who presented for consultation from Dr. Jimenez regarding Chief Complaint Patient presents with OTHER Type 2 DM I have reviewed the pertinent available patient records including but not limited to notes, labs and images She reports that she is doing well. She reports normal movements and she denies leakage of fluid, contractions or vaginal bleeding. She denies fever, chills, nausea, vomiting, shortness of breath, chest pain, headache, blurry vision, right upper quadrant pain or edema. Complications: Type 2 DM on a pump Diagnosed in 2014 and was started on oral medications. She was tried on jardiance (yeast infections), metformin (GI side effects), glipizide (ineffective), and Trulicity (some benefit) and has been treated with insulin pump since 2017. Has had recent eye exam. Dental exam is current Omnipod insulin pump with dexcom G6 sensor She uses dexcom to monitor her BG. Denies problems with the pump CGM reviewed. She tells me that she is having problems with te sensor and that it is reading 30-40 points higher than when she checks the blood glucose with a fingersticks. The new sensor was changedyesterday Denies hypoglycemia CHTN on labetalol 200 mg tid on low dose aspirin BP per patient <140/90. Diagnosed in Obesity BMI 52 Cell free DNA low fraction - declined further genetic testing today. Desires evaluation if needed Anxiety and depression on lamictal and pristiq mood is stable. No SI, managed by PCP Denies family history of: Learning difficulties, congenital anomalies, DVT/VTE, early-onset cancer,early-onset cardiac disease or other inherited conditions Denies smoking, alcohol or other substance use in Recent hospitalization: no Review of systems: Review of systems was noncontributory OB Hx: OB History Para Term AB Living 1 0 0 0 0 0 SAB IAB Ectopic Multiple Live Births 0 0 0 0 0 # Outcome Date GA Lbr Buddy/2nd Weight Sex Type Anes PTL Lv 1 Current Obstetric Comments Type 2 diabtetes PMH: Past Medical History: Diagnosis Date Anxiety Depression Diabetes mellitus ([facility]) Disease of thyroid gland Hypertension PSHIST: No past surgical history on file. Allergies: No Known Allergies Meds: Current Outpatient Medications: aspirin 81 mg, Take [...] insulin pen, Prime with 2 unitsthen inject 15 units every evening in addition to your pump. For pump failure take 65 units of lantus daily, Disp: 15 mL, Rfl: 3 insulin lispro (HumaLOG U-100 Insulin) 100 unit/mL injection, Use up to 100 units per day via insulin pump., Disp: 90 mL, Rfl: 3 insulin lispro (HumaLOG) 100 unit/mL insulin pen, Inject 48 Units under the skin in the morning and48 Units at noon and 48 Units in the evening. Inject with meals. (Patient not taking: Reported on 06/23/2023), Disp: 15 mL, Rfl: 0 labetaloL (NORMODYNE) 200 mg tablet, Take 1 tablet (200 mg total) by mouth 3 (three) times a day., Disp: , Rfl: lamoTRIgine (LaMICtal) 100 mg tablet, Take 1 tablet (100 mg total) by mouth in the morning. Pt to take 2 tablets daily total 200mg., Disp: , Rfl: lancets misc, 1 each by miscellaneous route in the morning and 1 each at noon and 1 each in the evening and 1 each before bedtime. Using true metrix meter and strips and lancets.., Disp: 150 each, Rfl: 6 M-MADHURI PLUS 27 mg iron- 1 mg tablet, Take 1 tablet by mouth in the morning., Disp: , Rfl: metoprolol tartrate (LOPRESSOR) 25 mg tablet, Take 1 tablet (25 mg total) by mouth every 12 (twelve) hours. (Patient not taking: Reported on 06/23/2023), Disp: , Rfl: OMNIPOD 5 G6 PODS, GEN 5, cartridge, 1 Unit by abdominal subcutaneous route once daily. Per pump settings, Disp: 30 each, Rfl: 6 ondansetron ODT (ZOFRAN ODT) 4 mg disintegrating tablet, Dissolve 1 tablet (4 mg total) on tongue every 8 (eight) hours as needed., Disp: , Rfl: pantoprazole (PROTONIX) 40 mg EC tablet, Take 1 tablet (40 mg total) by mouth every morning before breakfast., Disp: , Rfl: pen needle, diabetic (BD ULTRA-FINE NAIMA PEN NEEDLE) 32 gauge x needle, Use a new needle witheach injection (Patient not taking: Reported on 07/10/2023), Disp: 100 each, Rfl: 6 SH: Social History Socioeconomic History Marital status: Spouse name: Not on file Number of children: Not on file Years of education: Not on file Highest education level: Not on file Occupational History Not on file Tobacco Use Smoking status: Never Passive exposure: Never Smokeless tobacco: Never Vaping Use Vaping status: Never Used Substance and Sexual Activity Alcohol use: Not Currently Drug use: Never Sexual activity: Yes Partners: Male control/protection: Other Other Topics Concern Not on file Social History Narrative Not on file Social Determinants of Health Financial Resource Strain: Not on file Food Insecurity: No Food Insecurity (07/10/2023) Hunger Screening Food Insecurity - Worry: Never True Food Insecurity - Inability: Never True Transportation Needs: Not on file Physical Activity: Not on file Stress: Not on file Social Connections: Not on file Interpersonal Safety: Unknown (05/01/2023) [facility] [place] [facility] Environment Fear of Current or Ex-Partner: Not on file Emotionally Abused: Not on file Physically Abused: Not on file Sexually Abused: Not on file Physically or Sexually Abused: Not on file Housing Instability: Not on file Physical Exam: n/a Notes/Imaging/Labs reviewed Hospital Outpatient Visit on 06/23/2023 Component Date Value Ref Range Status Glucose 06/23/2023 168 (H) 65 - 99 mg/dL Final C peptide 06/23/2023 5.70 (H) 0.81 - 3.85 ng/mL Final Comment: NOTE Test Performed By: [facility] [address] [place] [address] Strap Making Machine Operator: Vaibhav Julian III, M.D. CLIA #[id number]^ Insulinoma Ab 2 06/23/2023 See Below Final Comment: NOTE TEST RESULT FLAG UNIT REF.RANGE IA 2 Antibody Blood <5.4 U/mL <7.5 Anti-insulinoma associated antigen 2 (IA-2) antibody test is used as an aid in diagnosis of type I diabetes mellitus, to predict the risk of progression to type I diabetes mellitus among susceptible individuals, and to predict the necessity of insulin therapy in adult-onset diabetes mellitus. Clinical correlation is required. Test Performed By: [facility] [address] [place] [address] Strap Making Machine Operator: Vaibhav Julian III, M.D. CLIA #[id number]^ Yeyo Antibody 06/23/2023 <5.0 0.0 - 5.0 IU/mL Final Comment: NOTE INTERPRETIVE INFORMATION: Glutamic Acid Decarboxylase Antibody A value greater than 5.0 IU/mL is considered positive for Glutamic Acid Decarboxylase Antibody (YEYO Ab). This assay is intended for the semi-quantitative determination of the YEYO Ab in human serum. Results should be interpreted within the context of clinical symptoms. Performed By: [facility] [address] [place] [id number] St[employer] Making Machine Operator: Mark Fitzpatrick MD, PhD CLIA Number: [id number] Office Visit on 06/23/2023 Component Date Value Ref Range Status External Poct Hgb A1C 06/23/2023 6.8 4 - 7 g/dL Final External Glucose Fasting Or Rando* 06/23/2023 200 Final Ultrasound findings Assessment/Plan 27 y.o. @ at 26w0d with Estimated Date of Delivery: 10/28/23 here for consultation regardin. 26 weeks gestation of - ECG 12 lead; Future - B-type natriuretic peptide; Future - Comprehensive metabolic panel; Future - Urine protein creatinine ratio; Future - LDH; Future - Uric acid; Future 2. Type 2 diabetes mellitus in , second trimester - ECG 12 lead; Future - B-type natriuretic peptide; Future - Comprehensive metabolic panel; Future - Urine protein creatinine ratio; Future - LDH; Future - Uric acid; Future We reviewed the pathophysiology and problems that may exist in pregnancies in patients with diabetes include: the increased risk of spontaneous loss, congenital malformations with elevated hemoglobin A1cs at the time of conception, and also the likelihood of altered growth. The riskof congenital malformation in insulin dependent diabetes mellitus was reviewed. We explained that growth can be accelerated or delayed depending on the presence or absence of maternal vascular disease as well as maternal glycemic control therefore, we do recommend serial growth ultrasounds throughout the . We reviewed with the patient that although infants of diabetic mothers may be large for gestational age, they may display evidence of delayed organ maturation and may have respiratory issues that are out of proportion to their degree of prematurity. Extremely poor glycemic control can lead to significant metabolic derangements after , including electrolyte abnormalities, hypoglycemia, hyperbilirubinemia, polycythemia, and seizures. There is a small risk of other functional alterations such as cardiomyopathy, which is sometimes seen in infants of diabetic mothers. For this reason, tight glycemic control with frequent blood sugar monitoring is strongly recommended throughout and during the labor process. Long-term outcomes on long-term increased risk for diabetes and obesity and cardiovasculardisease in childhood was reviewed. The patient is encouraged to continue the exercise she is already doing and we discussed the safetyof continuing to work our 5 days per week during . She may begin to have difficulty with this in the later part of the 3rd trimester due to the enlarging uterus and at that time she can justmodify the exercises she is doing. We discussed that if she has inadequate glycemic control then we may contemplate a primary cesareansection if there is estimated weight in excess of 4500 grams as the case may be due to increased risk for shoulder dystocia. We also discussed the fact that inadequate glycemic control increases the risk of demise and, therefore a need for planned delivery may become apparent at the later stage of and we would discuss the specific plans with her at that point. If she has adequate glycemic control and growth is not accelerated and no evidence of uteroplacental failure is demonstrated, we would attempt to achieve a vaginal delivery with appropriate monitoring in the intrapartum period. We have also explained to the patient the role of the diabetes nurse educator, in coordinating her diabetes care. We discussed complications including polycythemia, hypoglycemia, hyperbilirubinemia and respiratory distress syndrome. Polycythemia is due to hyperglycemia stimulating erythropoietin production. The polycythemia may promote vascular sludging, ischemia and microthrombi formation in the brain and can lead to seizures. Polycythemia can also lead to hyperbilirubinemia in the when excess red blood cells are destroyed. hypoglycemia is due to elevated production of insulin due to maternal hyperglycemia and can lead to seizures in the . There is increased susceptibility to respiratory distress from altered production of alveolar surfactant or abnormal pulmonary function. Maturational delay of the lungs occurs in women with gestational diabetes. Type 2 diabetes in the also increases her risk of section, preeclampsia, wound complications and VTE/DVT Treatment for diabetes in : Lifestyle modification with a healthy diet and increasing physical activity can help manage hyperglycemia, and is therefore always encouraged. We briefly discussed diet modifications and physical activity. The mainstay of pharmacotherapy for the treatment of diabetes in remains insulin. She is currently on an insulin pump managed by Dr. Burr Glucose goals in : Fasting 60 - 95: Mean fasting glucose values are important in managing diabetes in women because they provide overall glycemic estimate, and are predictive of increased fat mass in the women s offspring. Increased fat mass has been shown to be associated with the development of childhood obesity, and diabetes. One hour postprandial 90 - 140: Postprandial measurements are important in management of diabetes in because they are associated with incidence of large for gestational age infants, and lower rates of delivery for cephalopelvic disproportion when well controlled. Discussed monitoring for hypogylcemia, and treatment of hypoglycemia. Discussed her current diet and her awareness of grams of carbohydrate per meal. Encouraged her to be aware of carbohydrate intake and note which foods causing values above goal. Encouraged her on diet modifications. CGM reviewed. Insulin pump changes made. Nighttime basal increased as well as her bolus with the evening meal Insulin Instructions Pump Settings insulin lispro 100 unit/mL injection (HumaLOG) Last edited by Lottie Cam MD on 07/22/2023 at 10:36 AM Stop automated basal Basal Rate Total Basal Dose: 59 units/day Time units/hr 12:00 AM 2.6 6:00 AM 2.4 12:00 PM 2.35 4:00 PM 2.4 8:00 PM 2.5 Blood Glucose Target Time mg/dL 12:00 AM 110 - 110 Sensitivity Factor Time mg/dL/unit 12:00 AM 15 Carb Ratio Time g/unit 12:00 AM 2 12:00 PM 1.5 8:00 PM 2 3. Hypertension affecting in second trimester - ECG 12 lead; Future - B-type natriuretic peptide; Future - Comprehensive metabolic panel; Future - Urine protein creatinine ratio; Future - LDH; Future - Uric acid; Future Chronic hypertension (CHTN) is defined as either a history of hypertension prior to or a blood pressure of >140/90 prior to 20 weeks of gestation. Hypertension occurs in 1-5% of women. Maternal complications include worsening HTN, superimposed preeclampsia, eclampsia, HELLP syndrome. complications include growth restriction, oligohydramnios, placental abruption, , and . The more severe the hypertension, the higher the incidence of the above complications. In addition hypertension is associated with a long-term risk for adverse cardiovascular events thus would recommend BNP and EKG if she has not had one done. If the BNP or the EKG is abnormal the patient will require an echocardiogram. Reviewed the physiologic changes in with normal physiologic decrease in systemic vascularresistance leads to a decrease in blood pressure, with its iman at mid gestation, followed by return to prepregnancy levels by the third trimester. It is sometimes difficult to distinguish preeclampsia from a hypertensive crisis later in , as such, I recommend getting baseline labs to help distinguish these later in . Baseline labs include: LFTs, CBC, creatinine, urine analysis, protein creatinine ratio for proteinuria assessment. Medical therapy recommendations: In conclusion, the CHAP trial provides evidence that the treatment of mild chronic hypertension in , compared to no treatment unless hypertension becomes severe, reduces the risk of maternaland morbidity without increasing the risk of SGA infants or other morbidities. Based on the available evidence, [facility] recommends treatment with antihypertensive therapy for mild chronic hypertension in to a goal BP <140/90 mm Hg. The patient also has longstanding type 2 diabetes and ultimately blood pressure control should be less than 130/80 if possible. Patients with treated chronic hypertension should continue established antihypertensive therapy during or change to a regimen compatible with to achieve this treatment goal. ACEI and ARB are absolutely contraindicated in , and care should be exercised regarding the use of diuretics such as furosemide and hydrochlorothiazide. In general, for the initial treatmentof women with chronic hypertension who require pharmacologic therapy, labetalol, methyldopa or nifed ipine are recommended. Continue to monitor blood pressure, with a goal blood pressure of less than 140/90. Additionally, home blood pressure monitoring should be encouraged. She is on labetalol at this time. Based on previously published studies, the USPSTF recommends low dose aspirin (81mg daily) as it reduces the risk of preeclampsia by 24%, by 14%, and FGR by 20% for women who are at risk for preeclampsia when started after 12 weeks of gestation. There have been several dosing strategies for low dose aspirin for preeclampsia prevention, 81 mg (endorsed by ACOG) and 150 mg daily. Our practice continues to endorse the 81 mg dosing regimen for preeclampsia prevention as is recommendedby the [place] [employer]ne[employer] Committee Opinion No. 743. Higher doses (150mg) have been studied, but utilized a screening strategy that is not widely performed in the [place] (serum analytes and uterine artery Doppler), limiting the generalizability of the findings. 4. Obesity during 5. BMI 50.0-59.9, adult ([facility]) The patient has a BMI of > 40, which is a risk factor for adverse outcomes in . These possible complications including increased risks for miscarriage in the first trimester, congenital anomalies, hypertensive disorders of including preeclampsia, diabetes mellitus, demise, and delivery (with subsequent risks of wound infection, wound complications otherwise, and/or VTE). While we do not recommend weight loss during (inadequate weight gain and weight loss are associated with increased risks of growth restriction or SGA), we discussed the importance of a healthy diet and exercise. Her goal for weight gain throughout gestation should be 11-20 pounds. For obesity BMI >40 ACOG suggests the following: - Inadequate weight gain and gestational weight loss should not be encouraged, as this is associated with increased risk of SGA. - Nutrition counseling. - Screening for gestational diabetes in obese women at the first visit and again at 24-28 weeks if the initial screen is negative. - Screening for KEITH at the first visit, with referral to Sleep Medicine if KEITH is suspected - Consideration for antepartum anesthesia consultation for women with a BMI>40 kg/m2, and especially in those women with KEITH. - Place SCDs prior to cesaeran, and continue . For women with a BMI>40 kg/m2, considerprophylactic low molecular weight heparin therapy for 3-5 days after or vaginal delivery. This is in addition to the use of sequential compression devices for the first 12-24 hours after surgery. For this extreme obesity, evidence favors a weight-based regimen of 0.5 mg/kg every 12 hours as thromboprophylaxis. 6. Anxiety and Depression affecting , antepartum Approximately one in five women experiences an episode of major depressive disorder (MDD) over the course of her lifetime. Psychosocial and familial factors and medical history are related to the risk for depression after delivery. In particular, a personal history of depression, a family history of depression, and the lack of partner support increase the risk for depression. She denies any history of bipolar disorder, history of kirk, no suicidal or homicidal thoughts. She is on lamictal and pristiq. Lamictal is a first-line medication with a favorable safety profile. Due to metabolic changes in , it is likely that she will need to have serum levels of her lamotrigine checked in the ffvo2as and 3rd trimester in order to ensure adequate dosing. She should have her levels checked through her PCP with the prescribing physician on medications Pristiq reviewed. There has been some association with increased risk of preeclampsia and hemorrhage. Nutrient Management Specialist should be notified about use as there is a risk for withdrawal -- such as jitters, irritability, poor feeding and respiratory distress -- for up to a month after . Also there is a small risk for a pulmonary hypertension in the . Well designed studies on long-term ne urodevelopmental outcomes are lacking. She vocalized understanding. The patient desires to stay on her medications for mood control 7. Abnormal genetic testing affecting She has had 2 cell free DNA with no result due to low fraction. Reviewed with the patient thesignificance of these findings. Various causes for low fraction were discussed with the patient including but not limited to obesity as well as aneuploidy. Reviewed aneuploidy testing that could be performed during . I explained that definitive testing can be obtained by an amniocentesis, which has a 1/800 risk of loss. The patient declined amniocentesis and she desires evaluation if indicated. Also she has not interested to have a aneuploidy screen through a different company. She declined genetic consultation. Recommendations: Declines amniocentesis desires evaluation if indicated Continue low dose aspirin daily for preeclampsia prevention Continue labetalol Has a scheduled follow-up anatomy survey and echocardiogram with an MFM visit Continue to monitor blood pressure, with a goal blood pressure ideally of less than 130/80 in the setting of long lasting type 2 diabetes and CHTN. If she has blood pressure greater than 140/90 please perform preeclampsia workup Serial growth assessment every 4 weeks after anatomy scan surveillance is recommended to start at 28 weeks weekly NST and DVP , 32 weeks NST x 2 week (please schedule through OB office) baseline EKG and baseline preeclampsia labs if not done Anesthesia consult due to high BMI in 3rd trimester recommended please initiate Delivery - section if estimated weight above 4500 g -timing of delivery between [id number] in the setting of pre gestational diabetes with vascular complications (chronic hypertension on medications). If the patient has good glycemic control and the blood pressures are stable would recommend term delivery to balance risks of prematurity. Timing of delivery to be further addressed pending her clinical course -she is not a candidate for late corticosteroids due to pre- existing diabetes -further recommendations regarding insulin for labor will be made closer to delivery If she delivers by , recommend medication for VTE prevention (LMWH) during delivery hospitalization. Please monitor her mood Lamictal level should be checked by PCP as her Lamictal dose may need readjustment Given education on kick counts and signs and symptoms of preeclampsia Plan reviewed with patient. She vocalized understanding all questions answered. The patient is to continue with routine care in your office Thank you for allowing me to participate in her care. Please contact me if you have any concerns. Lottie Cam MD, FACOG (she/hers) Maternal- Medicine [facility] [address] [facility] 1st [place] [address] This document was created with [email or web address] technology. Though I make every effort to review the dictation as it is transcribed, on occasion the spoken word can be misinterpreted by the technology leading to inappropriate words, phrases, or sentences. This note is addressed to the requesting provider as a consultation for clinical guidance. Specificmedical abbreviations are occasionally used and those are generally approved by the [place]?Board of?Obstetrics and?Gynecology?as well as?Anais s abbreviations. The above plan of care was based solely on the diagnoses for which a consultation was requested. ?More frequent testing may be indicated based on her other medical/obstetrical conditions. The management of other or medical conditions is beyond the scope of requested consultation and will c ontinue to be followed by the primary chief operator synthesis or primary care provider. Note to patient: The Cures Act makes medical notes like these available to patients inthe interest of transparency. However, be advised this is a medical document. It is intended as peer to peer communication. It is written in medical language and may contain abbreviations or verbiagethat are unfamiliar. It may appear blunt or direct. Medical documents are intended to carry relevant information, facts as evident, and the clinical opinion of the practitioner. documented in this encounterEast Ohio Regional HospitalConvergent Radiotherapy [facility] [id number] History of Present illness Narrative* Linda Hines RN - 07/10/2023 10:45 AM EDT Patient here for an office visit with Dr Burr for T2DM. Patient is currently 24w and 2 days . She saw MFM today for F/U survey. +FM. Had an A1c completed 06/23/23 6.8% Headache/epigastric pain/blurry vision/swelling? No Cramping/contractions? No Abnormal vaginal discharge? No Spotting or vaginal bleeding? No Loss of fluid like your water may have broken? No Recent ER visits or hospitalizations? No Any concerns that you would like me to mention to the provider today? No * Leana Burr MD - 07/10/2023 10:45 AM EDT [facility]- Diabetes Visit Tess Pfeiffer is a [...] adjustments. Patient is feeling well today. She is at 24w2d with Estimated Date of Delivery: 10/28/23. She is referred from [facility] who is managing along with us. She has had her diabetes education with [facility]. Please see media for full pump download. Average BG 151. Usually bolusing 2 times per day. She is having less extreme spikes but still overall averaging too high throughout the day. She is starting to feel baby move. No contractions. No pain. Increased nausea without vomiting. Past admissions for DKA within last year: none. Complications: History of OR, CHF: none Medications none Last Lipid panel drawn due after History of HTN: no Medications none History of Diabetic Retinopathy: unknown. Last seen Speech Lang Path unknown History of peripheral neuropathy: none Medications [...] on file Tobacco Use Smoking status: Never Passive exposure: Never Smokeless tobacco: Never Vaping Use Vaping status: Never Used Substance and Sexual Activity Alcohol use: Not Currently Drug use: Never Sexual activity: Yes Partners: Male control/protection: Other Other Topics Concern Not on file Social History Narrative Not on file Social Determinants of Health Financial Resource Strain: Not on file Food Insecurity: No Food Insecurity (07/10/2023) Hunger Screening Food Insecurity - Worry: Never True Food Insecurity - Inability: Never True Transportation Needs: Not on file Physical Activity: Not on file Stress: Not on file Social Connections: Not on file Interpersonal Safety: Unknown (05/01/2023) [facility] [place] Safety & Environment Fear of Current or Ex-Partner: Not on file Emotionally Abused: Not on file Physically Abused: Not on file Sexually Abused: Not on file Physically or Sexually Abused: Not on file Housing Instability: Not on [...] (three) months., Disp:1 each, Rfl: 3 insulin lispro (HumaLOG U-100 Insulin) 100 unit/mL injection, Use up to 100 units per day via insulin pump., Disp: 90 mL, Rfl: 3 labetaloL (NORMODYNE) 200 mg tablet, Take 1 tablet (200 mg total) by mouth 3 (three) times a day., Disp: , Rfl: lamoTRIgine (LaMICtal) 100 mg tablet, Take 1 tablet (100 mg total) by mouth in the morning. Pt to take 2 tablets daily total 200mg., Disp: , Rfl: M- PLUS 27 mg iron- 1 mg tablet, Take 1 tablet by mouth in the morning., Disp: , Rfl: ondansetron ODT (ZOFRAN ODT) 4 mg disintegrating tablet, Dissolve 1 tablet (4 mg total) on tongue every 8 (eight) hours as needed., Disp: , Rfl: pantoprazole (PROTONIX) 40 mg EC tablet, Take 1 tablet (40 mg total) by mouth every morning before breakfast., Disp: , Rfl: insulin glargine (LANTUS SOLOSTAR U-100 INSULIN) 100 unit/mL (3 mL) insulin pen, Prime with 2 unitsthen inject 50 units each evening in the presence of pump failure (Patient not taking: Reported on 06/23/2023), Disp: 15 mL, Rfl: 3 insulin lispro (HumaLOG) 100 unit/mL insulin pen, Inject 48 Units under the skin in the morning and48 Units at noon and 48 Units in the evening. Inject with meals. (Patient not taking: Reported on 06/23/2023), Disp: 15 mL, Rfl: 0 lancets misc, 1 each by miscellaneous route in the morning and 1 each at noon and 1 each in the evening and 1 each before bedtime. Using true metrix meter and strips and lancets.., Disp: 150 each, Rfl: 6 metoprolol tartrate (LOPRESSOR) 25 mg tablet, Take 1 tablet (25 mg total) by mouth every 12 (twelve) hours. (Patient not taking: Reported on 06/23/2023), Disp: , Rfl: OMNIPOD 5 G6 PODS, GEN 5, cartridge, 1 Unit by abdominal subcutaneous route once daily. Per pump settings, Disp: 30 each, Rfl: 6 pen needle, diabetic (BD ULTRA-FINE NAIMA PEN NEEDLE) 32 gauge x 5/32 needle, Use a new needle witheach injection (Patient not taking: Reported on 07/10/2023), Disp: 100 each, Rfl: 6 There are no hospital problems to display for this patient. EXAM: Blood pressure 135/74, pulse 99, weight 121.1 kg (267 lb). Body mass index is 52.14 kg/m . Patient reports BP usually around 132/ 76. Yesterday at [place] 158/99 with mild headache now resolved General- awake/ alert/ pleasant Cardiac: RRR Respiratory: CTAB Abdomen: soft, non-distended Extremities: appropriate coloration, bilateral pulses, no rashes visible Neuro: appropriate gait, appropriate mentation Foot Exam: Visual: no cuts/ sores. Appropriate color, hair growth. Toenails without discoloration. No deformities. No calluses. Palpation: normal DP pulses, warm to touch Monofilament test: positive Appropriate ambulation Assessment and Plan Tess Pfeiffer is a 27 y.o. with type 2 diabetes. She is now at 22w6d with EstimatedDate of Delivery: 10/28/23. She has had diabetes education with [facility]. We reviewed the following We have discussed the issue of insulin-dependent diabetes mellitus and the effect of in detail. There is an elevated risk of malformation of the order of 22% in those who have [id number] 8.5 and higher. Patient aware that maternal [...] but improving control. A1c goal 6% in A1c March 2023: 7.9% A1c 6.8% June 2023 Medications: GIVE CORRECTION DOSES IN BETWEEN MEALS (2 HOURS OR MORE AFTER THE MEAL) IF BG ELEVATED. ESPECIALLY IMPORTANT BEFORE BED INCREASE BASAL RATES DURING THE DAY Insulin Instructions Pump Settings insulin lispro 100 unit/mL injection (HumaLOG) Last edited by Leana Burr MD on 07/10/2023 at 2:09 PM Stop automated basal Basal Rate Total Basal Dose: 58.1 units/day Time units/hr 12:00 AM 2.5 6:00 AM 2.35 12:00 PM 2.35 4:00 PM 2.4 8:00 PM 2.5 Blood Glucose Target Time mg/dL 12:00 AM 110 - 110 Sensitivity Factor Time mg/dL/unit 12:00 AM 15 Carb Ratio Time g/unit 12:00 AM 2 12:00 PM 1.5 8:00 PM 2.5 Labs: YEYO Ab negative with elevated c peptide, confirms T2DM. Increased options for medication and lifestyle changes after / nursing Lifestyle changes: eat breakfast: try low sugar [...] once per trimester with MFM as well. Dede Glucose Monitoring 06/23/23 LEANA BURR MD [facility] documented in this [facility]04-23-2024 Miscellaneous Notes* Telephone Encounter - Gladys Daniel LPN - 07/01/2023 11:25 AM EDT Please call us back we need to schedule you and Dr visit with one of our Dr's after your next ultrasound in [place]. documented in this [facility]04-23-2024 Telephone encounter Note* Telephone Encounter - Gladys Daniel LPN - 07/01/2023 11:25 AM EDT Please call us back we need to schedule you and Dr visit with one of our Dr's after your next ultrasound in [place]. [employer] [id number] History of Present illness Narrative* Leana Burr MD - 06/30/2023 8:30 AM EDT [facility]- Diabetes Visit TELEMEDICINE VISIT: This is an audiovisual visit. This is done to assess the patient and to determine the best medical care. The patient was located at home in [place] and the provider was located at the medical office in [place]. The patient states they are not [...] adjustments. Patient is feeling well today. She is at 22w6d with Estimated Date of Delivery: 10/28/23. She is referred from [facility] who is managing along with us. She has had her diabetes education with [facility]. Please see media for full pump download. Average BG 152. She is bolusing for 2-3 meals per day but no other boluses in between when BG elevated. She is trying to eat healthier, lower carb higher protein options with 30-45 grams per meal. Usually not needing a second dose due to high bolus. BG have been elevated overnight and throughout the day. No low BG. She is starting to feel baby move. No contractions. No pain. Increased nausea without vomiting. Past admissions for DKA within last year: none. Complications: History of OR, CHF: none Medications none Last Lipid panel drawn due after History of HTN: no Medications none History of Diabetic Retinopathy: unknown. Last seen Speech Lang Path unknown History of peripheral neuropathy: none Medications [...] History: Diagnosis Date Anxiety Depression Diabetes mellitus ([facility]) Disease of thyroid gland Hypertension No past [...] on file Tobacco Use Smoking status: Never Passive exposure: Never Smokeless tobacco: Never Vaping Use Vaping status: Never Used Substance and Sexual Activity Alcohol use: Not Currently Drug use: Never Sexual activity: Yes Partners: Male control/protection: Other Other Topics Concern Not on file Social History Narrative Not on file Social Determinants of Health Financial Resource Strain: Not on file Food Insecurity: No Food Insecurity (06/23/2023) Hunger Screening Food Insecurity - Worry: Never True Food Insecurity - Inability: Never True Transportation Needs: Not on file Physical Activity: Not on file Stress: Not on file Social Connections: Not on file Interpersonal Safety: Unknown (05/01/2023) [facility] [place] Safety & Environment Fear of Current or Ex-Partner: Not on file Emotionally Abused: Not on file Physically Abused: Not on file Sexually Abused: Not on file Physically or Sexually Abused: Not on file Housing Instability: Not on [...] evening in the presence of pump failure (Patient not taking: Reported on 06/23/2023), Disp: 15 mL, Rfl: 3 insulin lispro (HumaLOG U-100 Insulin) 100 unit/mL injection, Use up to 100 units per day via insulin pump., Disp: 90 mL, Rfl: 3 insulin lispro (HumaLOG) 100 unit/mL insulin pen, Inject 48 Units under the skin in the morning and48 Units at noon and 48 Units in the evening. Inject with meals. (Patient not taking: Reported on 06/23/2023), Disp: 15 mL, Rfl: 0 labetaloL (NORMODYNE) 200 mg tablet, Take 1 tablet (200 mg total) by mouth 3 (three) times a day., Disp: , Rfl: lamoTRIgine (LaMICtal) 100 mg tablet, Take 1 tablet (100 mg total) by mouth in the morning. Pt to take 2 tablets daily total 200mg., Disp: , Rfl: lancets (accu-chek soft touch) misc, Use 1 lancet 4 times daily for POC glucose testing, Disp: 100 each, Rfl: 3 M- PLUS 27 mg iron- 1 mg tablet, Take 1 tablet by mouth in the morning., Disp: , Rfl: metoprolol tartrate (LOPRESSOR) 25 mg tablet, Take 1 tablet (25 mg total) by mouth every 12 (twelve) hours. (Patient not taking: Reported on 06/23/2023), Disp: , Rfl: OMNIPOD 5 G6 PODS, [...] , Rfl: pen needle, diabetic (BD ULTRA-FINE NAIMA PEN NEEDLE) 32 gauge x needle, Use a new needle witheach injection, Disp: 100 each, Rfl: 6 There are no hospital problems to display for this patient. EXAM: There were no vitals taken for this visit. There is no height or weight on file to calculate BMI. Patient reports BP usually around 132/ 76. Yesterday at [place] 158/99 with mild headache now resolved General- awake/ alert/ pleasant Cardiac: RRR Respiratory: CTAB Abdomen: soft, non-distended Extremities: appropriate coloration, bilateral pulses, no rashes visible Neuro: appropriate gait, appropriate mentation Foot Exam: Visual: no cuts/ sores. Appropriate color, hair growth. Toenails without discoloration. No deformities. No calluses. Palpation: normal DP pulses, warm to touch Monofilament test: positive Appropriate ambulation Assessment and Plan Tess Pfeiffer is a 27 y.o. with type 2 diabetes. She is now at 22w6d with EstimatedDate of Delivery: 10/28/23. She has had diabetes education with [facility]. We reviewed the following We have discussed the issue of insulin-dependent diabetes mellitus and the effect of in detail. There is an elevated risk of malformation of the order of 22% in those who have xssjuwsummJ7L 8.5 and higher. Patient aware that maternal [...] but improving control. A1c goal 6% in A1c March 2023: 7.9% A1c 6.8% June 2023 Medications: GIVE CORRECTION DOSES IN BETWEEN MEALS (2 HOURS OR MORE AFTER THE MEAL) IF BG ELEVATED. ESPECIALLY IMPORTANT BEFORE BED INCREASE BASAL RATES DURING THE DAY DOING WELL WITH EATING FEWER CARBS. USUALLY 30-45 GRAMS PER MEAL Insulin Instructions Pump Settings insulin lispro 100 unit/mL injection (HumaLOG) Last edited by Leana Burr MD on 06/30/2023 at 8:35 AM Stop automated basal Basal Rate Total Basal Dose: 54.7 units/day Time units/hr 12:00 AM 2.35 6:00 AM 2.2 12:00 PM 2.2 4:00 PM 2.25 8:00 PM 2.4 Blood Glucose Target Time mg/dL 12:00 AM 110 - 110 Sensitivity Factor Time mg/dL/unit 12:00 AM 15 Carb Ratio Time g/unit 12:00 AM 2 12:00 PM 1.5 8:00 PM 2.5 Labs: YEYO Ab negative with elevated c peptide, confirms T2DM. Increased options for medication and lifestyle changes after / nursing Lifestyle changes: eat breakfast: try low sugar [...] once per trimester with MFM as well. Dede Glucose Monitoring 06/23/23 LEANA BURR MD [facility] documented in this [facility]04[facility] History of Present illness Narrative* Linda Hines RN - 06/23/2023 9:30 AM EDT Patient here for a follow-up office visit with Dr Burr for T2DM in . Patient is currently 21w6d . +FM. Patient states she is having a difficult time trying to bring blood sugars down. For example, yesterday ate 2 hotdogs plain with a bun. Prior to eating she was 140 and 1 hour after eating blood sugar 255 and she did bolus with the meal. A1c obtained today 6.8% Headache/epigastric pain/blurry vision/swelling? No Cramping/contractions? No Abnormal vaginal discharge? No Spotting or vaginal bleeding? No Loss of fluid like your water may have broken? No Recent ER visits or hospitalizations? Yes, 06/04/23 for hypertension * Leana Burr MD - 06/23/2023 9:30 AM EDT [facility]- Diabetes Visit Tess Pfeiffer is a [...] adjustments. Patient is feeling well today. She is at 21w6d with Estimated Date of Delivery: 10/28/23. She is referred from [facility] who is managing along with us. She has had her diabetes education with [facility]. Please see media for full pump download. Average BG 144. She is bolusing more often now but she is under bolusing. Example, ate two hot dogs yesterday with the buns and bolused only 26 grams. BG roseto 250. This morning she ate 2 slices of toast and underbolused due to low insulin levels in her reservoir before leaving to come here. She also underboluses when she is eating a higher carb meal dueto the cap of max bolus at 30 units per omnipod restrictions. She is starting to feel baby move. No contractions. No pain. Increased nausea without vomiting. Past admissions for DKA within last year: none. Complications: History of OR, CHF: none Medications none Last Lipid panel drawn due after History of HTN: no Medications none History of Diabetic Retinopathy: unknown. Last seen Speech Lang Path unknown History of peripheral neuropathy: none Medications [...] on file Tobacco Use Smoking status: Never Passive exposure: Never Smokeless tobacco: Never Vaping Use Vaping status: Never Used Substance and Sexual Activity Alcohol use: Not Currently Drug use: Never Sexual activity: Yes Partners: Male control/protection: Other Other Topics Concern Not on file Social History Narrative Not on file Social Determinants of Health Financial Resource Strain: Not on file Food Insecurity: No Food Insecurity (06/23/2023) Hunger Screening Food Insecurity - Worry: Never True Food Insecurity - Inability: Never True Transportation Needs: Not on file Physical Activity: Not on file Stress: Not on file Social Connections: Not on file Interpersonal Safety: Unknown (05/01/2023) [facility] [place] Safety & Environment Fear of Current or Ex-Partner: Not on file Emotionally Abused: Not on file Physically Abused: Not on file Sexually Abused: Not on file Physically or Sexually Abused: Not on file Housing Instability: Not on [...] (three) months., Disp:1 each, Rfl: 3 insulin lispro (HumaLOG U-100 Insulin) 100 unit/mL injection, Use up to 100 units per day via insulin pump., Disp: 90 mL, Rfl: 3 labetaloL (NORMODYNE) 200 mg tablet, Take 1 tablet (200 mg total) by mouth 3 (three) times a day., Disp: , Rfl: lamoTRIgine (LaMICtal) 100 mg tablet, Take 1 tablet (100 mg total) by mouth in the morning. Pt to take 2 tablets daily total 200mg., Disp: , Rfl: M-MADHURI PLUS 27 mg iron- 1 mg tablet, Take 1 tablet by mouth in the morning., Disp: , Rfl: OMNIPOD 5 G6 PODS, [...] , Rfl: pen needle, diabetic (BD ULTRA-FINE NAIMA PEN NEEDLE) 32 gauge x 5/32 needle, Use a new needle witheach injection, Disp: 100 each, Rfl: 6 insulin glargine (LANTUS SOLOSTAR U-100 INSULIN) 100 unit/mL (3 mL) insulin pen, Prime with 2 unitsthen inject 50 units each evening in the presence of pump failure (Patient not taking: Reported on 06/23/2023), Disp: 15 mL, Rfl: 3 insulin lispro (HumaLOG) 100 unit/mL insulin pen, Inject 48 Units under the skin in the morning and48 Units at noon and 48 Units in the evening. Inject with meals. (Patient not taking: Reported on 06/23/2023), Disp: 15 mL, Rfl: 0 metoprolol tartrate (LOPRESSOR) 25 mg tablet, Take 1 tablet (25 mg total) by mouth every 12 (twelve) hours. (Patient not taking: Reported on 06/23/2023), Disp: , Rfl: There are no hospital problems to display for this patient. EXAM: Blood pressure 132/77, pulse 76, weight 119 kg (262 lb 6.4 oz). Body mass index is 51.25 kg/m . General- awake/ alert/ pleasant Cardiac: RRR Respiratory: CTAB Abdomen: soft, non-distended Extremities: appropriate coloration, bilateral pulses, no rashes visible Neuro: appropriate gait, appropriate mentation Foot Exam: Visual: no cuts/ sores. Appropriate color, hair growth. Toenails without discoloration. No deformities. No calluses. Palpation: normal DP pulses, warm to touch Monofilament test: positive Appropriate ambulation Assessment and Plan Tess Pfeiffer is a 27 y.o. with type 2 diabetes. She is now at 21w6d with EstimatedDate of Delivery: 10/28/23. She has had diabetes education with [facility]. We reviewed the following We have discussed the issue of insulin-dependent diabetes mellitus and the effect of in detail. There is an elevated risk of malformation of the order of 22% in those who have lrtrhvcbbdP1K 8.5 and higher. Patient aware that maternal [...] but improving control. A1c goal 6% in A1c March 2023: 7.9% A1c 6.8% June 2023 Medications: FOCUS ON CARB COUNTING APPROPRIATELY. IF NEEDING MORE THAN 30 GRAMS, TAKE A SECOND BOLUS WITH REMAINING INSULIN NEEDS. NO CHANGES TO ICR UNTIL THESE CHANGES ARE MADE. INCREASE BASAL RATES DURING THE DAY Insulin Instructions Pump Settings insulin lispro 100 unit/mL injection (HumaLOG) Last edited by Leana Burr MD on 06/23/2023 at 10:46 AM Stop automated basal Basal Rate Total Basal Dose: 49.4 units/day Time units/hr 12:00 AM 2.1 6:00 AM 2 12:00 PM 2 4:00 PM 2 8:00 PM 2.2 Blood Glucose Target Time mg/dL 12:00 AM 110 - 110 Sensitivity Factor Time mg/dL/unit 12:00 AM 15 Carb Ratio Time g/unit 12:00 AM 2 12:00 PM 1.5 8:00 PM 2.5 Labs: checking YEYO Ab, IA2 Ab, and c peptide. (Reports mom has t1DM and she was very poorly controlled prior to adding insulin. Rule out T1DM). SHE HAS NOT HAD THESE DONE THIS LAST MONTH. REMINDED PATIENT AGAIN. Lifestyle changes: eat breakfast: try low sugar [...] once per trimester with MFM as well. June Glucose Monitoring 06/23/23 MD [facility] documented in this encounterEast [facility] HospitalConvergent Radiotherapy [facility] [id number] History of Present illness Narrative* Leana Burr MD - 05/29/2023 10:45 AM EDT [facility]- Diabetes Visit TELEMEDICINE VISIT: This is an audiovisual visit. This is done to assess the patient and to determine the best medical care. The patient was located at home in [place] and the provider was located at the medical office in [place]. The patient states they are not [...] of Delivery: 10/28/23. She is referred from [facility] who is managing along with us. She has had her diabetes education with [facility]. Please see media for full pump [...] within last year: none. Complications: History of OR, CHF: none Medications none Last Lipid panel drawn due after History of HTN: no Medications none History of Diabetic Retinopathy: unknown. Last seen Speech Lang Path unknown History of peripheral neuropathy: none Medications [...] History: Diagnosis Date Anxiety Depression Diabetes mellitus ([facility]) Disease of thyroid gland Hypertension History reviewed. [...] , Rfl: pen needle, diabetic (BD ULTRA-FINE NAIMA PEN NEEDLE) 32 gauge x 5/32 needle, [...] 10/28/23. She has had diabetes education with [facility]. We reviewed the following We have discussed the issue of insulin-dependent diabetes mellitus and the effect of in detail. There is an elevated risk of malformation of the order of 22% in those who have ivmtuvllzuG5W 8.5 and higher. Patient aware that maternal [...] tobolus each time she eats Labs: checking YEYO Ab, IA2 Ab, and c peptide. (Reports [...] with MFM as well. LEANA BURR MD [facility] documented in this encounterGuernsey [facility]03-12-2024 History of Present illness Narrative* Leana Burr MD - 05/20/2023 8:00 AM EDT [facility]- Diabetes Visit Tess Pfeiffer is a [...] of Delivery: 10/28/23. She is referred from [facility] who is managing along with us. She has had her diabetes education with [facility]. Please see media for full pump [...] within last year: none. Complications: History of OR, CHF: none Medications none Last Lipid panel drawn due after History of HTN: no Medications none History of Diabetic Retinopathy: unknown. Last seen Speech Lang Path unknown History of peripheral neuropathy: none Medications [...] History: Diagnosis Date Anxiety Depression Diabetes mellitus ([facility]) Disease of thyroid gland Hypertension No past [...] , Rfl: pen needle, diabetic (BD ULTRA-FINE NAIMA PEN NEEDLE) 32 gauge x 5/32 needle, [...] 10/28/23. She has had diabetes education with [facility]. We reviewed the following We have discussed the issue of insulin-dependent diabetes mellitus and the effect of in detail. There is an elevated risk of malformation of the order of 22% in those who have pjqpxjamyfR4M 8.5 and higher. Patient aware that maternal [...] considerably as her current automated basal is [id number] units but her basal rates were recently increased by a different provider to give 57 units per day. Now she will get 38 units per day. She needs to start taking her bolus before each meal and snack. Usually dosing once daily, this will be her goal for this next week to bolus before most meals. Labs: checking YEYO Ab, IA2 Ab, and c peptide. (Reports [...] with MFM as well. LEANA BURR MD [facility] documented in this encounterGuernsey [facility] Hospital03-05-2024 Miscellaneous Notes* Telephone Encounter - Joann [...] and denied any questions. documented in this encounterGuernsey Memorial Hospital03-05-2024 Telephone encounter Note* Telephone Encounter - [...] meals. Verbalized understanding and denied any questions. [facility] Work Phone: 1(895) 615-760603-04-2024 Miscellaneous Notes* Telephone Encounter - Joann Walsh [...] week 05/20/23. Informed would call back after [facility] provider reviews. documented in this encounterGuernsey [facility] Hospital03-04-2024 Telephone encounter Note* Telephone Encounter - [...] would call back after M provider reviews. [employer] Work Phone: 1(523) 251-132102-28-2024 History of Present illness Narrative* Queta Zazueta [...] results Have you been seen here at [facility] in a previous ? N/a Recent ER visits or hospitalizations? No Bring blood sugar log or meter with you today? (Please bring them with you for every visit at [facility]) yes Traveled outside the country in the past 6 month no Any concerns that you would like me to mention to the provider today? No * Opal Heath, PIECE DYER-PSYCH NP - 05/07/2023 3:00 PM EST REASON FOR [...] no complaints. She is being followed at [facility] due to Type 2 DM. [...] TSH 1.05 04/01/2023 No results found for: [id number] No results found for: CREATININE , BUN [...] by e-mail to: or by fax to: [phone] 40 Minutes spent [id number]; more than 50% of time spent counseling and/or coordinating care withadditional time for record review and communication to referring provider. SABINA Uribe 05/07/23 1556 documented in this encounterGuernsey Memorial Hospital02-28-2024 History of Present illness Narrative* Danyell [...] care for you: OB Provider Family Doctor Horse Racing Analyst Name: Sebastian Name: No primary care provider on file. Name:[facility] City: City: City: Last time [...] demonstration Is there anything about your culture, restorationist, or personal beliefs we need to know about to care for you: Other none Primary Language spoken: Indonesian [22] Primary Language for learning: Indonesian Are you currently in a relationship where you are physically hurt, threatened or made to fee afraid? [] Yes [x] No Movie Shot Camera Operator needed? [] Yes [x] No Marital [...] If yes, where: On thge following scale, grindstone the number, which describes your current level [...] but when she transferred to a [facility] he did lab work and took her off the thyroid medication. She is on lopressor for her bp. She was diagnosed with type 2 diabetes 2014-. It has been 8 years. She is not taking metformin at this time. We dicussed complications of diabetes and complications of diabetes to Mom and baby. We discussed where to give her insulin if she ever has to give long acting. Random today was 109 and last HGBA1C was 03/2323 at 7.9. Face to face timewas 60 min. . * Shital Chen, RD - 05/07/2023 1:00 PM EST Nutritional Assessment Form Date: 05/07/2023 KULDIP: Estimated Date of Delivery: 10/28/23 EGA: 15w1d Past Medical History: Diagnosis Date Diabetes mellitus ([facility]) Disease of thyroid gland Hypertension OB [...] Educational Level high school Family issues none Cultural/ethnic/latter-day influences none Exercise approved by MD? Current Exercise program walking Who prepares the meal pt Who purchase food at your home? pt Equipment use for cooking/food storage has all Food Assistance(Ex.WIC, Food [place]) has apt Dining out Yes 1 time per month Appetite/Appetite changes increased Weight History stable Do you have cats at home? Infant Feeding Plans Breast Feeding If you have cats, who cleans the litter box? Cravings/Aversions/Pica none currently Nutrition Assessment Worksheet: Week/Weekend Food Recall Breakfast [place] Or cereal Or eggs Snack Lunch Grilled [...] Management Support Plan, patient chose to use [employer] to help manage her diabetes. Patient understands that we will follow up weekly with a phone call to review progress. Face to face time 40 minutes. documented in this encounterKerbs Memorial HospitalTaggs02-28-2024 Instructions* Patient Instructions* Danyell Ortiz RN - [...] 4 HOURS WHILE AWAKE documented in this encounterEast Ohio Regional Hospitalremocean02-14-2024 Miscellaneous Notes* Telephone Encounter - Daneyll Ortiz RN - 04/23/2023 12:23 PM EST Called pt due toher not coming to her appt today and she stated she had left a message that she needed to tammi due to not having transportation to her appt this morning. Her name given back to the schedulers to call and resched her. documented in this encounterKerbs Memorial HospitalTaggs02-14-2024 Telephone encounter Note* Telephone Encounter - Danyell Ortiz RN - 04/23/2023 12:23 PM EST Called pt due toher not coming to her appt today and she stated she had left a message that she needed to tammi due to not having transportation to her appt this morning. Her name given back to the schedulers to call and resched her. [facility]02-08-2024 History of Present illness Narrative* Mario Conway [...] Hand fracture, right Type 2 diabetes mellitus ([facility]) Family History Problem Relation Name Age [...] nursing note reviewed. Exam conducted with a lean manufacturing coordinator present. Vitals: Estimated body mass index is [...] of: Mario Conway DO documented in this encounterResearch Psychiatric [id number] Instructions* Patient Instructions* Gregorio Floyd MD - [...] hold levothyroxine for now. documented in this [id number] History of Present illness Narrative* Gregorio Floyd MD - 08/27/2021 11:00 AM EDT Images from the original note were not included. Reason for visit/chief complaint: thyroid disorder and DM Date: 08/27/2021 Referring Provider: Aleksey Laureano MD Primary Care Provider: Aleksey Laureano MD HPI: Ms. Ashley is a [...] ALKPHOS, BILITOT No results found for: TSH, [id number], THYROIDAB No results found for: PTH, CALCIUM, JACQUES, PHOS Lab Results Component Value Date HGBA1C 7.7 (A) 08/27/2021 No results found for: LDLCALC, CHOL, HDL, TRIG, CHOLHDL No results found for: MICALBCREAT, [id number] No results found for: CPEPTIDE Assessment and [...] acanthosis nigricans indicate T2DM, but will get [id number] and c-peptide/glucose given the young age of [...] Due for foot exam no 08/2021; to recreation counselor on foot care next visit CV [...] Gregorio Floyd MD Endocrinology documented in this [id number] Hospital Discharge instructions Patient Education 08/25/2021 02:09:26 [...] Ask your health care provider for a mita-fr-uzwk plan for gradually returning to activities. Ask [...] your friends, family, a trusted colleague, and optical goods worker about your injury, symptoms, and restrictions. Have them watch for any new or worsening problems. General instructions Take oqor-bbb-axnppmp and prescription medicines only as told by [...] 02/24/2006 Document Revised: 03/24/2019 Document Reviewed: 03/19/2019 KDPOF Patient Education 2020 [employer]. 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 General instructions Take tule-iel-pkrjgbx and prescription medicines only as told by [...] 12/22/2007 Document Revised: 06/16/2019 Document Reviewed: 10/23/2016 KDPOF Patient Education 2020 [employer]. Follow Up Care 08/24/2021 22:42:21 With:Aleksey Laureano Address: [address] [place], [place] [id number] Business (1) When:Within 3 Day(s) [facility]06-17-2022 Evaluation + Plan noteExtracted from: Title:ED Note [...] w/o Contrast CT Spine Cervical w/o Contrast [facility]* Diagnosis Thyroid disorder- Primary Unspecified disorder of thyroid Hair loss Unspecified alopecia [facility] [place] [facility]* Diagnosis Type 2 diabetes mellitus with hyperglycemia, unspecified whether buttermaker continuous churn insulin use (HCC)- Primary Thyroid disorder Unspecified disorder of thyroid Hair loss Unspecified alopecia [facility] Diagnosis Bleeding in early Unspecified hemorrhage in early , unspecified as to episode of care Follow-up exam Unspecified follow-up examination documented in this encounter [facility]* Diagnosis Intrauterine device surveillance documented in this encounter [facility]* Diagnosis Encounter for insertion of Mirena IUD Encounter for insertion of intrauterine contraceptive device (IUD) documented in this encounter [facility]* Diagnosis Type 2 diabetes mellitus in , second trimester- Primary Insulin pump in place Insulin pump status HTN in , chronic [facility] Diagnosis Type 2 diabetes mellitus in , second trimester- Primary HTN in , chronic [facility]* Diagnosis Type 2 diabetes mellitus in , second trimester- Primary HTN in , chronic [facility]* Diagnosis 26 weeks gestation of - Primary Type 2 diabetes mellitus in , second trimester Hypertension affecting in second trimester Obesity during BMI 50.0-59.9, adult ([facility]) Depression affecting , antepartum [facility] Diagnosis with type 2 diabetes mellitus in third trimester- Primary documented [facility]* Diagnosis Type 2 diabetes mellitus in , second trimester- Primary BMI 50.0-59.9, adult ([facility]) Obesity during documented [facility]* Diagnosis Type 2 diabetes mellitus in third trimester, antepartum- Primary Chronic hypertension complicating or reason for care during , third trimester documented [facility]* Diagnosis with type 2 diabetes mellitus in third trimester- Primary HTN in , chronic documented in [facility]* Diagnosis Type 2 diabetes mellitus in , second trimester- Primary Insulin pump in place Insulin pump status HTN in , chronic documented [facility]* Diagnosis Type 2 diabetes mellitus in , second trimester- Primary documented in this [facility]* Diagnosis Type 2 diabetes mellitus in , second trimester- Primary Pre-existing type 2 diabetes mellitus during in first trimester documented in [facility]* Diagnosis Type 2 diabetes mellitus in third trimester, antepartum- Primary Insulin pump in place Insulin pump status Polyhydramnios in third trimester complication, single or unspecified fetus Chronic hypertension complicating or reason for care during , third trimester Obesity during BMI 50.0-59.9, adult ([facility]) Depression affecting , antepartum 34 weeks gestation of documented [facility] this [facility]* Diagnosis Type 2 diabetes mellitus in , second trimester- Primary documented in this [facility]* Diagnosis History of - Primary Other postprocedural status Pre-eclampsia superimposed on chronic hypertension, delivered documented in this encounter [facility]* Diagnosis Type 2 diabetes mellitus in , second trimester- Primary documented in this encounter [facility]* Diagnosis Type 2 diabetes mellitus in , second trimester- Primary documented in this encounter [facility]* Diagnosis Type 2 diabetes mellitus in , second trimester- Primary documented in this encounter [facility]* Diagnosis Type 2 diabetes mellitus in , second trimester- Primary documented in this [facility]* Diagnosis Type 2 diabetes mellitus with hyperglycemia, with long-term current use of insulin ([facility])- Primary BMI 50.0-59.9, adult ([facility]) Primary hypertension Unspecified essential hypertension documented in this [facility]* Diagnosis Type 2 diabetes mellitus with hyperglycemia, with long-term current use of insulin ([facility]) documented in this [facility]* Diagnosis Type 2 diabetes mellitus with hyperglycemia, with long-term current use of insulin ([facility])- Primary [facility] Diagnosis Type 2 diabetes mellitus with hyperglycemia, with long-term current use of insulin ([facility]) [facility] Diagnosis Type 2 diabetes mellitus in , second trimester [facility]* Diagnosis Type 2 diabetes mellitus with hyperglycemia, with long-term current use of insulin ([facility])- Primary [facility]* Diagnosis Type 2 diabetes mellitus with hyperglycemia, with long-term current use of insulin ([facility]) [facility] Diagnosis Menorrhagia with regular cycle- Primary Pelvic pain in female Unspecified symptom associated with female genital organs Intrauterine device surveillance Exposure to STD documented in this encounter [facility]* Diagnosis Pre-op examination Request for sterilization Menorrhagia with regular cycle Abnormal uterine bleeding (AUB) Pelvic pain documented in this encounter [facility] course Narrative No data available for this section [facility] No data available for this section [facility] on filedocumented in this encounter [facility] filed[facility] in this [facility] filedocumented in this encounter [facility] on filedocumented in this encounter [facility] on filedocumented in this encounter [facility]* Attachments The following attachments cannot be sent through Care Everywhere. * Movement (Indonesian) * Preeclampsia (Indonesian) documented in [facility]ructionsNot on file documented in this encounterPro[facility]ica Health SystemInstructionsNot on file documented in this encounterPro[facility]ica Health SystemInstructionsNot on file documented in this encounterPro[facility]ica Health SystemInstructionsNot on file documented in this encounterProMedica Health SystemInstructionsNot on file documented in this encounterProMedica Health SystemInstructionsNot on file documented in this encounterProMedica Health SystemInstructionsNot on file documented in this encounterProMedica Health SystemInstructionsNot on file documented in this encounterProMedica Health SystemInstructionsNot on file documented in this encounterProMedica Health SystemInstructionsNot on file documented in this encounterProMedica Health SystemInstructionsNot on file documented in this encounterProMedica Health SystemInstructionsNot on file documented in this encounterProMedica Health SystemInstructionsNot on file documented in this encounterProMedica Health SystemInstructionsNot on file documented in this encounterProPrem[facility] System[facility] note No data available for this section [facility] for referral (narrative)* Consultation (Routine) - Pending Review Specialty Diagnoses / Procedures Referred By Contac t Referred To Contact Maternal and Medicine Diagnoses Type 2 diabetes mellitus in , second trimester Insulin pump in place Oapl Heath APRN-CNP [address] [place] [address] Leana Burr MD [facility] [address], [address] [address] Referral ID Status Reason Start Date Expiration Date Visits Requested Visits Authorized [id number] Pending Review Specialty Services Required 05/07/2023 05/06/2024 1 1 [facility] for referral (narrative)* Consultation (Routine) - Pending Review Specialty Diagnoses / Procedures Referred By Contac t Referred To Contact Endocrinology Diagnoses Type 2 diabetes mellitus in , second trimester Mary Qureshi APRN-CNM [address], [facility] [place] [address] Leana Burr MD [facility] [address], [address] [address] Referral ID Status Reason Start Date Expiration Date Visits Requested Visits Authorized [id number] Pending Review Specialty Services Required 05/20/2023 05/19/2024 1 1 [facility] N[facility]* Consultation (Routine) - Pending Review Specialty Diagnoses / Procedures Referred By Contac t Referred To Contact Endocrinology Diagnoses Type 2 diabetes mellitus in , second trimester Mary Qureshi, PIECE DYER-CNM [address], [address] [place] [address] Leana Burr MD [address], [address] [address] Referral ID Status Reason Start Date Expiration Date Visits Requested Visits Authorized [id number] Pending Review Specialty Services Required 05/20/2023 05/19/2024 1 1 [facility] N[facility]* Consultation (Routine) - Pending Review Specialty Diagnoses / Procedures Referred By Contac t Referred To Contact Obstetrics and Gynecology Diagnoses Chronic hypertension with superimposed pre-eclampsia Isabela Rivas MD [address], [address] [place] [address] [facility] [address] [place] [address] Referral ID Status Reason Start Date Expiration Date V isits Requested Visits Authorized [id number] Pending Review 09/30/2023 09/29/2024 1 1 [facility] Summary Purpose Family History No Family [...] for this section No Family History Records Found No data available for this section No Family History Records FoundNo Family History Records FoundNo Family History Records FoundNo Family History Records FoundNo Family History Records FoundNo Family History Records FoundNo Family History Records FoundNo Family History Records Found Advance Directives No Advanced Directives Records FoundDocuments on File Type Date Recorded Patient Ecclesiastical Worker Expl paulette Advance Directives and Alton cassidy Will 05/02/2021 12:00 AM Date Activated Date Inactivated Comments 09/25/2023 7:41 PM 10/01/2023 6:09 PM Date Activated Date Inactivated Comments 09/25/2023 7:41 PM 10/01/2023 6:09 PM Reason for Referral Specialty Diagnoses / Procedures Referred By Contac t Referred To Contact Endocrinology Diagnoses Thyroid disorder Hair loss Aleksey Laureano MD [address] [facility] [place] [address] [place] [address] Gregorio Floyd MD [address] [place] [id number] Referral ID Status Reason Start Date Expiration Date Visits Requested Visits Authorized [id number] Authorized Specialty Services Required/Pat ient's Best Interest 05/04/2021 05/04/2022 1 1 Specialty Diagnoses / Procedures Referred By Contac t Referred To Contact Maternal and Medicine Diagnoses Type 2 diabetes mellitus in , second trimester Insulin pump in place HTN in , chronic Procedures [facility] with or without consult Margarita Rodriguez MD [address] [place] [address] [facility] Maternal Med [address] [place] [address] Referral ID Status Reason Start Date Expiration Date V isits Requested Visits Authorized [id number] Pending Review 06/11/2023 06/10/2024 1 1 Specialty Diagnoses / Procedures Referred By Contac t Referred To Contact Diagnoses 26 weeks gestation of Type 2 diabetes mellitus in , second trimester Hypertension affecting in second trimester Procedures ECG 12 lead Lottie Cam MD [address], [address] [place] [address] Referral ID Status Reason Start Date Expiration Date V isits Requested Visits Authorized [id number] Pending Review 07/22/2023 07/21/2024 1 1 Specialty Diagnoses / Procedures Referred By Contac t Referred To Contact Diagnoses Type 2 diabetes mellitus in , second trimester Leana Burr MD [address], [address] [address] Referral ID Status Reason Start Date Expiration Date V isits Requested Visits Authorized [id number] Pending Review 1 1 Specialty Diagnoses / Procedures Referred By Contac t Referred To Contact Maternal and Medicine Diagnoses Type 2 diabetes mellitus in , second trimester Procedures [facility] with or without consult Opal Heath, PIECE DYER-PSYCH NP [address] [place] [address] [facility]aternal [facility] [address] [place] [address] Referral ID Status Reason Start Date Expiration Date V isits Requested Visits Authorized [id number] Pending Review 05/08/2023 05/07/2024 1 1 Additional Source Comments INFORMATION SOURCE (unrecogn ized section and content) DATE CREATED AUTHOR 02/06/2021 [facility] DATE CREATED AUTHOR AUTHOR'S ORGANIZ ATION 08/27/2021 [facility] DATE CREATED AUTHOR AUTHOR'S ORGANIZ ATION 06/02/2022 [facility] DATE CREATED AUTHOR AUTHOR'S ORGANIZ ATION 08/23/2023 [facility] DATE CREATED AUTHOR AUTHOR'S ORGANIZ ATION 09/24/2023 [facility] DATE CREATED AUTHOR AUTHOR'S ORGANIZ ATION 10/01/2023 [facility] DATE CREATED AUTHOR AUTHOR'S ORGANIZ ATION 05/30/2024 [facility] DATE CREATED AUTHOR AUTHOR'S ORGANIZ ATION 06/01/2024 [facility] DATE CREATED AUTHOR AUTHOR'S ORGANIZ ATION 06/02/2024 [facility] DATE CREATED AUTHOR AUTHOR'S ORGANIZ ATION 11/26/2024 [facility] DATE CREATED AUTHOR AUTHOR'S ORGANIZ ATION 12/13/2024 [facility] Care Teams (unrecognized sec tion and content) Mixer Tender Relationship Specialty Start Date End Date Aleksey Laureano MD [address] [place] [address] PCP - General Family Medicine 05/02/21 Mixer Tender Relationship Specialty Start Date End Date Aleksey Laureano MD [address] [place] [address] PCP - General Family Medicine 05/02/21 Mixer Tender Relationship Specialty Start Date End Date Aleksey Laureano MD [address] [place] [address] PCP - General 03/13/23 Mixer Tender Relationship Specialty Start Date End Date Aleksey Laureano MD [address] [place] [address] PCP - General 03/13/23 Mixer Tender Relationship Specialty Start Date End Date Aleksey Laureano MD [address] [place] [address] PCP - General 03/13/23 Mixer Tender Relationship Specialty Start Date End Date Aleksey Laureano MD [address] [place] [address] PCP - General 03/13/23 Mixer Tender Relationship Specialty Start Date End Date Aleksey Laureano MD [address] [place] [address] PCP - General 03/13/23 Mixer Tender Relationship Specialty Start Date End Date Aleksey Laureano MD [address] [place] [address] PCP - General 03/13/23 Mixer Tender Relationship Specialty Start Date End Date Aleksey Laureano MD [address] [place] [address] PCP - General 03/13/23 Reason for Visit (unrecogniz ed section and content) Reason Comments Thyroid Problem Specialty Diagnoses / Procedures Referred By [facility] Referred To Contact Endocrinology Diagnoses Thyroid disorder Hair loss Aleksey Laureano MD [address] [place] [address] Gregorio Floyd MD [address] [place] [address] Referral ID Status Reason Start Date Expiration Date V isits Requested Visits Authorized [id number] Closed Specialty Services Required/Deanna ent's Best Interest 05/04/2021 05/04/2022 1 1 Reason Comments ER Follow-up Reason Comments String check Reason Comments Contraception Mirena insert Reason Comments T2DM Reason Comments OTHER Type 2 DM Reason Comments t2dm Reason Comments Diabetes Specialty Diagnoses / Procedures Referred By [facility] Referred To Contact Maternal and Medicine Diagnoses Pre-existing type 2 diabetes mellitus during in first trimester Mario Conway R, DO [address] , [place] [address] [facility]aternal [facility] [address] [place] [address] Referral ID Status Reason Start Date Expiration Date Visits Requested Visits Authorized [id number] Pending Review Specialty Services Required 04/15/2023 04/14/2024 1 1 Reason Comments BMI Hypertension polyhydramnios Reason Comments T2DM IN Reason Comments Med Refill Reason Comments Pelvic Pain Pt present today for pelvic pain and IUD check. Reason Comments Pre-op Visit [facility] FOR RECORDS PERTAINING TO PATIENTS WHO ARE [...] BE BASED ON THE PRIMARY CLINICAL RECORDS. [facility] provides no warranty or guarantee of the accuracy or completeness of information in this document.
[2024-12-14 11:22] LABS: Hematocrit 40.9 % (36.0-48.0); Hemoglobin 13.6 g/dL (12.0-16.0); Immature Granulocytes Abs Auto 0.02 10^3/uL (0.00-0.03); Immature Granulocytes Pct Auto 0.2 % (0.0-0.5); Lymphocytes Absolute Auto 2.8 10^3/uL (1.2-3.8); Mean Corpuscular HGB Conc 33.3 g/dL (29.9-35.2); Mean Corpuscular Hemoglobin 27.1 pg (26.7-34.0); Mean Corpuscular Volume 81.5 fL (81.0-99.0); Platelet Count 252 10^3/uL (150-450); Red Blood Count 5.02 10^6/uL (4.20-5.40); White Blood Count 8.2 10^3/uL (4.0-11.0)
[2024-12-14 11:55] LABS: Alanine Aminotransferase 75 U/L (14-59); Albumin Globulin Ratio 0.9; Albumin Level 3.9 g/dL (3.4-5.0); Alkaline Phosphatase 76 U/L (46-116); Anion Gap 12.5; Aspartate Amino Transferase 38 U/L (15-37); Blood Urea Nitrogen 8.0 mg/dL (7.0-18.0); Calcium 8.9 mg/dL (8.5-10.1); Carbon Dioxide 28.9 mmol/L (21.0-32.0); Chloride 101 mmol/L (98-107); Cholesterol 225 mg/dL (<=200); Estimated GFR (African America >60 (>=60 mL/min/1.73m^2); Estimated GFR (Non-African Ame >60 (>=60 mL/min/1.73m^2); Free T3 2.48 pg/mL (2.18-3.98); Globulin 4.3 g/dL; Glucose 300 mg/dL (74-106); HDL Cholesterol 33 mg/dL (40-60); Potassium 4.4 mmol/L (3.5-5.1); Sodium 138 mmol/L (136-145); Thyroid Stimulating Hormone 0.733 uIU/mL (0.358-3.740); Total Protein 8.2 g/dL (6.4-8.2); Triglycerides 413 mg/dL (<=150); VLDL CHOLESTEROL 82.6 mg/dL
== END 2024-12-14 10:31 | disposition home or self-care (01) ==
LOC: LAB 10:33
PROVIDERS: PCP Family Medicine; Visit Provider Family Medicine
DX: R07.9 Chest pain, unspecified (principal)
CPT/HCPCS: 80053; 80061; 82306; 83036; 83721; 84436; 84443; 84481; 85025

== ENCOUNTER 2024-12-14 10:35 | Outpatient (OUT) | payer OTHER, SELFPAY ==
--- OUTSIDE RECORDS SUMMARY | 2021-11-07 09:30 | XMS_ITS | Continuity of Care Document ---
Author Organization [facility] Address [address] [place] [address] Phone Care Team Providers Care Statement Distribution Clerk Name Role Phone Derrick RACHEL Hubert Unavailable Unavailable Allergies, Adverse Reactions, Alerts Substance Reaction Status Criticality No Known Allergies Active No Inform ation Medications Medication Instructions Dosage Effective Dates (start - stop) Status Comments metformin 500 mg tablet take 1 tablet by oral route 2 times every day with morning and evening meals 500 MG - Active Trulicity 3 mg/0.5 mL subcutaneous pen injector inject (3MG) by subcutaneous route every week 3 MG - Active Jardiance 25 mg tablet take 1 tablet by oral route every day in the morning 25 MG - Active Protonix 40 mg tablet,delayed release take 1 tablet by oral route every day 40 MG - Active Effexor XR 150 mg capsule,extended release take 1 capsule by oral route every day 150 MG - Active Lamictal 200 mg tablet take 1 tablet by oral route 2 times every day 200 MG - Active Vitamin D3 25 mcg (1,000 unit) chewable tablet - Active Actos 15 mg tablet take 1 tablet by ora l route every day 15 MG - Active Procedures Procedure Date Limited Oral Eval Extract; Erupted Th/exposted Rt 022 Nutrit Couns For Control Of [place] Dis Oct Bitewig-single Film Intraoral-periapical 1st Film Limited Oral Eval Oral Hygiene Instruction Advance Directives Directive Yes / No Effective Date File Name No Information Encounters Encounter Description Practice Location Reason(s) For Visit Diagnoses Date Provider Providers Copied on Encounter [facility], [address] [place] [address], [id number], [place] tel:[phone] Dental Clinic DN (chief complaint) Encounter for screening for dental disorders Derrick Gaspar. [address], [place], [id number], [place]. tel:[phone] [facility], [address] [place] [address], [id number], [place] tel:[phone] Dental Clinic EMG (chief complaint) Encounter for screening for dental disorders Stew Ruiz. [address] [place] [address], [id number], [place]. tel:[phone] Family History Family Member Type Diagnosis Age At Onset Father Problem hypertension Mother Problem Diabetes mellitus Mother Problem hypertension Father Problem Diabetes mellitus Father Problem premature coronary heart dis ease Payers Payer name Insurance type Covered alliance party ID Hayley zepeda(s) D Medicaid Wrap - [employer] MC [id number] Social History Type Description Quantity Date Captured Comments Alcohol Use Details Unknown Caffeine Use Details Unknown Tobacco Use Status Current non-smoker Smoking Status Never smoker Sex Female Sexual Orientation Straight or heterosexual Gender Identity Female Vital Signs Date / Time: Height Weight BMI Pulse Rate Blood Pressure Temperature Respiratory Rate Body Surface Area Head Circumference Head Circ. Percentile Wt./Buddy. Percentile BMI percentile Pulse Ox Inhaled Ox 1:29 PM 103 /min 149/89 mm[Hg] 98.70 F Chief Complaint And Reason For Visit From encounter dated '11/07/2021 13:30'. DN (chief complaint). Description: DN Reason For Referral Reason For Referral No Information Plan Of Treatment Date Type Action Status Goal Depression screening. Due on due Goal PAP. Due on due Goal Tdap. Due on due Goal RLP. Due on due Goal Influenza vaccine. Due on due Goal PRAPARE ASSESSMENT. Due on A due History Of Present Illness Encounter Date Complaint History Of Prese nt Illness DN DN EMG Functional Status Date Functional Assessmen t No Information Instructions Date Instruction Additional Infor mation No Information Assessments Type Assessment Date No Information Patient Care Teams Name Effective Dates (start - stop) Status Members No Information
--- OUTSIDE RECORDS SUMMARY | 2024-12-14 10:38 | XMS_ITS | Encounter Summary ---
Author Organization [facility] Address [address] [facility] [address] Care Team Providers Care Collection Systems Modeler Name Role Phone Aleksey Bell MD Primary Care Provider [phone] Aleksey Bell MD Unavailable [phone] Encounter Details Date Type Department Care Team (Late Contact Info) Description 07/25/2023 Abstract NOMLynette GREER [facility] [employer] [place] [place] [address] Blanca Elkins LPN [address] [place] [address] Social History Tobacco Use Types Packs/Day Years Used Date Smoking Tobacco: Never Alcohol Use Standard Drinks/Week Comments Never 0 (1 standard drink = 0.6 oz pur e alcohol) Comments Yes Sex and Gender Information Value Date Recorded Sex Assigned at Female 12/08/2024 8:50 AM EDT Legal Sex Female 8:50 AM EDT Gender Identity Female 12/08/2024 8:50 AM EDT Sexual Orientation Not on file documented as of this encounter Plan of Treatment Upcoming Encounters Date Type Department Care Team (Late Contact Info) Description 01/06/2025 11:20 AM EDT Office Visit MEGHA GREER [address] [place] [address] Shwetha Walton PA [address] [place], [place] [phone] documented as of this encounter Visit Diagnoses Not on filedocumented in this encounter Care Teams Collection Systems Modeler Relationship Specialty Start Date End Date Aleksey Bell MD [address] [place] [address] PCP - General 03/13/23 Aleksey Bell MD [address] [place] [address] [phone] Family Medicine 03/13/23 documented as of this encounter
--- OUTSIDE RECORDS SUMMARY | 2024-12-14 10:38 | XMS_ITS | Encounter Summary ---
Author Organization [facility] Address [address] [facility] [place] [address] Care Team Providers Care Party Chief Name Role Phone Aleksey Bell MD Primary Care Provider [phone] Aleksey Bell MD Unavailable [phone] Encounter Details Date Type Department Care Team (Late Contact Info) Description 08/12/2023 Clinisync Result Encounter [facility] External Department Unsolicited Porsha Conway DO [address] [place] [address] Social History Tobacco Use Types Packs/Day Years [...] Description 01/06/2025 11:20 AM EDT Office Visit [facility] [address] [facility] [phone] Shwetha Walton PA [address] [place] [address] documented as of this encounter Procedures Procedure Name Priority Date/Time Associated Diagnosis Comments US OB BPP W NON-STRESS 08/12/2023 11:35 AM EDT documented in this encounter Results * US OB BPP W NON-STRESS (08/12/2023 11:35 AM EDT) Anatomical Region Laterality Modality Other 08/12/2023 11:3 5 AM EDT Narrative 08/12/2023 11:38 [place] [address] Ultrasound Report Signed Patient: TESS CALVERT MR#: [id number] : 1995 Acct:[id number] Age/Sex: 27 / F ADM Date: 08/12/23 Loc: [facility] 250-[address]: Porsha Conway D.O. Ordering Physician: Porsha Conway D.O. Date of Service: 08/12/23 Procedure(s): US OB BPP w non-stress Accession Number(s): [id number] cc: Porsha Conway D.O.; Aleksey Bell M.D. [place] [address] Patient Name: TESS CALVERT MRN: [id number] date: 1995 Sex: F Assigned Patient Location: Current Patient Location: [facility] Accession/Order Number: [id number] Exam Date: 08/12/2023 11:00 Report Date: 08/12/2023 11:35 At the request of: PORSHA CONWAY Procedure: US OB BPP w non-stress EXAMINATION: US OB BPP w non-stress HISTORY: Decreased movement COMPARISON: Ultrasound OB biophysical 08/06/2023 TECHNIQUE: Ultrasound biophysical profile was performed in the radiology department. BREATHING MOVEMENTS: 2.0 GROSS BODY MOVEMENTS: 2.0 TONE: 2.0 QUALITATIVE AMNIOTIC FLUID VOLUME: 2.0 PRESENTATION: CEPHALIC HEART RATE: 146.7 bpm bpm. AMNIOTIC FLUID VOLUME: 16.9 cm GESTATIONAL AGE: 29 weeks 0 days CONCLUSION: Total biophysical profile score 8.0. Electronically authenticated by: SEBLE BEATTY Date: 08/12/2023 11:35 Dictated By: Seble Beatty M.D. Signed By: 08/12/23 1138 DD/ 1135 TD/TT: Chief Analytics Officer: Procedure Note Radiology, Radiologist, - 08/12/2023 [place] [address] Ultrasound Report Signed Patient: TESS CALVERT AMR#: [id number] : 1995Acct:[id number] Age/Sex: 27 / FADM Date: 08/12/23 Loc: [facility] [address]: Porsha Conway D.O. Ordering Physician: Porsha Conway D.O. Date of Service: 08/12/23 Procedure(s): US OB BPP w non-stress Accession Number(s): [id number] cc: Porsha Conway D.O.; Aleksey Bell M.D. [place] [address] Patient Name: TESS CALVERT MRN: [id number] date: 1995 Sex: F Assigned Patient Location: Current Patient Location: [facility] Accession/Order Number: [id number] Exam Date: 08/12/2023 11:00 Report Date: 08/12/2023 11:35 At the request of: PORSHA CONWAY Procedure: US OB BPP w non-stress EXAMINATION: US OB BPP w non-stress HISTORY: Decreased movement COMPARISON: Ultrasound OB biophysical 08/06/2023 TECHNIQUE: Ultrasound biophysical profile was performed in the radiology department. BREATHING MOVEMENTS: 2.0 GROSS BODY MOVEMENTS: 2.0 TONE: 2.0 QUALITATIVE AMNIOTIC FLUID VOLUME: 2.0 PRESENTATION: CEPHALIC HEART RATE: 146.7 bpm bpm. AMNIOTIC FLUID VOLUME: 16.9 cm GESTATIONAL AGE: 29 weeks 0 days CONCLUSION: Total biophysical profile score 8.0. Electronically authenticated by: SEBLE BEATTY Date: 08/12/2023 11:35 Dictated By: Seble Beatty M.D. Signed By:08/12/23 1138 DD/ 1135 TD/TT: Chief Analytics Officer: Porsha Zoraida DO [facility] Final Result documented in this encounter Visit Diagnoses Not on filedocumented in this encounter Care Teams Party Chief Relationship Specialty Start Date End Date Aleksey Bell MD [address] [place] [address] PCP - General 03/13/23 Aleksey Bell MD [address] [place] [address] Family Medicine 03/13/23 documented as of this encounter
--- OUTSIDE RECORDS SUMMARY | 2024-12-14 10:38 | XMS_ITS | Clinical Summary ---
Author Organization [employer] Address [id number] [place] [address] Care Team Providers Care Accordion Repairer Name Role Phone Unavailable Primary Care Provider Unavailabl e Allergies No known active allergies Medications lamoTRIgine (LaMICtal) 100 mg tablet Take 1 tablet (100 mg total) by mouth in the morning. Pt to take 2 tablets daily total 200mg. Active pantoprazole (PROTONIX) 40 mg EC tablet Take 1 tablet (40 mg total) by mouth every morning before breakfast. Active desvenlafaxine (PRISTIQ) 100 mg 24 hr tablet Take 1 tablet (100 mg total) by mouth in the morning. Active lancets miscIndications :Type 2 diabetes mellitus in , second trimester 1 each by miscellaneous route in the morning and 1 each at noon and 1 each in the evening and 1 each before bedtime. Using true metrix meter and strips and lancets.. 150 each 6 4 Active OMNIPOD 5 G6 PODS, GEN 5, cartridgeIndica tions:Type 2 diabetes mellitus with hyperglycemia, with long-term current use of insulin ([facility]) 1 Unit by abdominal subcutaneous route every 3 (three) days. Per pump settings 30 each 3 4 Active Additional Information Patient not taking.Reported on 05/31/2024 metoprolol tartrate (LOPRESSOR) 50 mg tablet Take 1 tablet (50 mg total) by mouth in the morning and 1 tablet (50 mg total) before bedtime. 4 Active insulin glargine (LANTUS SOLOSTAR U-100 INSULIN) 100 unit/mL (3 mL) insulin penIndications: Type 2 diabetes mellitus with hyperglycemia, with long-term current use of insulin ([facility]) Inject 55 Units under the skin nightly. For insulin pump failure 15 mL 12 5 Active dulaglutide (TRULICITY) 0.75 mg/0.5 mL pen injectorIndicat ions:Type 2 diabetes mellitus with hyperglycemia, with long-term current use of insulin ([facility]) Inject 0.5 mL (0.75 mg total) under the skin every 7 days. 6 mL 3 5 Active pen needle, diabetic (BD ULTRA-FINE RICHELLE PEN NEEDLE) 32 gauge x 5/32 needle Use a new needle with each injection, inject 5 times per day 450 each 3 5 Active DEXCOM G6 TRANSMITTER deviceIndicatio ns:Type 2 diabetes mellitus in , second trimester USE EVERY 3 MONTHS 1 each 3 5 Active blood-glucose sensor (DEXCOM G7 SENSOR) deviceIndicatio ns:Type 2 diabetes mellitus with hyperglycemia, with long-term current use of insulin ([facility]) 1 each by miscellaneous route every 10 days. 9 each 3 5 Active insulin lispro (HumaLOG KwikPen Insulin) 200 unit/mL (3 mL) insulin penIndications: Type 2 diabetes mellitus with hyperglycemia, with long-term current use of insulin ([facility]) Use up to 150 units per day via insulin pump 70 mL 3 5 Active Active Problems Patient Care Coordination No te Formatting of this note is d ifferent from the original. Stop automated basal Using U200 insulin. All settings above reflect u200 insulin NOT u100 Adding lantus 32 units nightly in addition to the pump Basal Rate Total Basal Dose: 35.4 units/day Time units/hr 12:00 AM 1.6 6:00 AM 1.5 12:00 PM 1.6 4:00 PM 1.6 8:00 PM 1.4 Blood Glucose Target Time mg/dL 12:00 AM 110 - 110 Sensitivity Factor Time mg/dL/unit 12:00 AM 30 Carb Ratio Time g/unit 12:00 AM 2 12:00 PM 2 8:00 PM 2 Keep Lantus 32 units at bedtime Problem Noted Date Diagnosed Date Chronic hypertension with superimposed pre-eclam psia 09/25/2023 Depression affecting , antepartum 07/21 BMI 50.0-59.9, adult 07/21/2023 Resolved Problems Problem Noted Date Diagnosed Date Resolved Date Hypertension affecting pregn maria c in second trimester 07/21/2023 01/15/2024 Obesity during 07/21/202309/2023 with type 2 diabet es mellitus in third trimester 05/07/2023 01/15/2024 HTN in , chronic 05/07/2023 Immunizations No known immunizations Family History Medical History Relation Name Comments Diabetes Father Hypertension Father Lung cancer Maternal Grandmother Diabetes Mother Hypertension Mother Relation Name Status Comments Father Maternal Grandmother Mother Social History Tobacco Use Types Packs/Day Years Used Date Smoking Tobacco: Never Passive Smoke Exposure: Never Smokeless Tobacco: Never Tobacco Cessation:Counseling Given: Not Answered Alcohol Use Standard Drinks/Week Comments Not Currently 0 (1 standard drink = 0.6 oz pur e alcohol) Childcare Answer Date Recorded Childcare Unknown 08/17/2018 Employment Answer Date Recorded Employment Unknown 08/17/2018 Hunger Screening Answer Date Recorded Within the past 12 months we worried whether our food would run out before we got money to buy more. Never True 05/31/2024 Within the past 12 months th e food we bought just didn't last and we didn't have money to get more. Never True 05/31/2024 Comments No Sex and Gender Information Value Date Recorded Sex Assigned at Female 02/27/2023 5:51 PM EST Legal Sex Female 3:23 PM EDT Gender Identity Female 02/27/2023 5:51 PM EST Sexual Orientation Not on file Last Filed Vital Signs Vital Sign Reading Time Taken Comments Blood Pressure 128/85 05/31/2024 10:40 AM EDT Pulse 86 05/31/2024 10:40 AM EDT Temperature 36.7 C (98.1 F) 10/01/2023 12:00 PM EDT Respiratory Rate 18 10/01/2023 12:00 PM EDT Oxygen Saturation 92% 09/28/2023 10:30 AM EDT Inhaled Oxygen Concentration - - Weight 112.9 kg (249 lb) 05/31/2024 10:40 AM EDT Height 152.4 cm (5') 05/31/2024 10:40 AM EDT Body Mass Index 48.63 05/31/2024 10:40 AM EDT Plan of Treatment Upcoming Encounters Date Type Department Care Team (Late st Contact Info) Description 01/03/2025 2:15 PM EDT Office Visit [facility] [address] [place] [address] Shira Shin, S[employer] K[employer] T[employer]ER [address] [place] [address] Health Maintenance Due Date Last Done Comments DTaP,Tdap and Td Vaccines (5 - Tdap) 2005 03/25/2001, 09/03/2000, 08/01/2000, Additional history exists Depression Screening 2006 Adult BMI Follow Up Plan 2012 Influenza Vaccine 11/08/2024 Adult BMI Screening 05/31/2025 05/31/2024 Tobacco Screening 05/31/2025 05/31/2024 Pap Smear 05/11/2026 05/12/2023 Medical Devices Not on file Insurance [employer] Advance Directives * Full Code (Latest Code Status on File) Date Activated Date Inactivated Comments 09/25/2023 7:41 PM 10/01/2023 6:09 PM
--- OUTSIDE RECORDS SUMMARY | 2024-12-14 10:38 | XMS_ITS | Encounter Summary ---
Author Organization [facility] Address [address] [facility] [place] [address] Care Team Providers Care Showroom Salesperson Name Role Phone Aleksey Bell MD Primary Care Provider [phone] Aleksey Bell MD Unavailable [phone] Encounter Details Date Type Department Care Team (Late Contact Info) Description 08/19/2023 Clinisync Result Encounter [facility] External Department Unsolicited Porsha Conway DO [address] [place] [address] Social History Tobacco Use Types Packs/Day Years [...] EDT Office [facility] [address] [facility] [place] [phone] Shwetha Walton PA [address] [place] [address] documented as of this encounter Procedures Procedure Name Priority Date/Time Associated Diagnosis Comments US OB BPP W NON-STRESS 08/19/2023 11:34 AM EDT documented in this encounter Results * US OB BPP W NON-STRESS (08/19/2023 11:34 AM EDT) Anatomical Region Laterality Modality Other 08/19/2023 11:3 4 AM EDT Narrative 08/19/2023 11:37 [place] [address] Ultrasound Report Signed Patient: TESS CALVERT MR#: [id number] : 1995 Acct:[id number] Age/Sex: 27 / F ADM Date: 08/19/23 Loc: [facility] 250-[address]: Porsha Conway D.O. Ordering Physician: Porsha Conway D.O. Date of Service: 08/19/23 Procedure(s): US OB BPP w non-stress Accession Number(s): [id number] cc: Porsha Conway D.O.; Aleksey Bell M.D. [place] [address] Patient Name: TESS CALVERT MRN: [id number] date: 1995 Sex: F Assigned Patient Location: [facility] Current Patient Location: [facility] Accession/Order Number: [id number] Exam Date: 08/19/2023 11:03 Report Date: 08/19/2023 11:34 At the request of: PORSHA CONWAY Procedure: US OB BPP w non-stress EXAMINATION: US OB BPP w non-stress HISTORY: Decreased movements O36.8120 COMPARISON: No relevant comparison available. TECHNIQUE: Ultrasound biophysical profile was performed in the radiology department. non-reactive stress testing was performed by nursing staff in the birthing center. FINDINGS: BREATHING MOVEMENTS: 2.0 GROSS BODY MOVEMENTS: 2.0 TONE: 2.0 QUALITATIVE AMNIOTIC FLUID VOLUME: 2.0 PRESENTATION: CEPHALIC HEART RATE: 148.4 bpm H.B./min AMNIOTIC FLUID VOLUME: 22.8 cm cm GESTATIONAL AGE: 30 weeks 0 days CONCLUSION: Total biophysical profile score: 8.0 Electronically authenticated by: MAY PILLAI Date: 08/19/2023 11:34 Dictated By: May Pillai M.D. Signed By: 08/19/23 1137 DD/ 1134 TD/TT: Shiftman: Procedure Note Radiology, Radiologist, MD - 08/19/2023 [place] [address] Ultrasound Report Signed Patient: TESS CALVERT AMR#: [id number] : 1995Acct:[id number] Age/Sex: 27 / FADM Date: 08/19/23 Loc: [facility] 250-[address]: Porsha Conway D.O. Ordering Physician: Porsha Conway D.O. Date of Service: 08/19/23 Procedure(s): US OB BPP w non-stress Accession Number(s): [id number] cc: Porsha Conway D.O.; Aleksey Bell M.D. The [place] [address] Patient Name: TESS CALVERT MRN: [id number] date: 1995 Sex: F Assigned Patient Location: [facility] Current Patient Location: [facility] Accession/Order Number: [id number] Exam Date: 08/19/2023 11:03 Report Date: 08/19/2023 11:34 At the request of: PORSHA CONWAY Procedure: US OB BPP w non-stress EXAMINATION: US OB BPP w non-stress HISTORY: Decreased movements O36.8120 COMPARISON: No relevant comparison available. TECHNIQUE: Ultrasound biophysical profile was performed in the radiology department. non-reactive stress testing was performed by nursingstaff in the birthing center. FINDINGS: BREATHING MOVEMENTS: 2.0 GROSS BODY MOVEMENTS: 2.0 TONE: 2.0 QUALITATIVE AMNIOTIC FLUID VOLUME: 2.0 PRESENTATION: CEPHALIC HEART RATE: 148.4 bpm H.B./min AMNIOTIC FLUID VOLUME: 22.8 cm cm GESTATIONAL AGE: 30 weeks 0 days CONCLUSION: Total biophysical profile score: 8.0 Electronically authenticated by: MAY PILLAI Date: 08/19/2023 11:34 Dictated By: May Pillai M.D. Signed By:08/19/23 1137 DD/ 1134 TD/TT: Shiftman: us Porsha Zoraida DO [facility] Final Result documented in this encounter Visit Diagnoses Not on filedocumented in this encounter Care Teams Showroom Salesperson Relationship Specialty Start Date End Date Aleksey Bell MD [address] [place] [address] PCP - General 03/13/23 Aleksey Bell MD [address] [place] [address] Family Medicine 03/13/23 documented as of this encounter
--- OUTSIDE RECORDS SUMMARY | 2024-12-14 10:38 | XMS_ITS | Encounter Summary ---
Author Organization [facility] Address [address] [facility] [place] [address] Care Team Providers Care Gauger Delivery Name Role Phone Aleksey Bell MD Primary Care Provider [phone] Aleksey Bell MD Unavailable [phone] Encounter Details Date Type Department Care Team (Late st Contact Info) Description 08/06/2023 Clinisync Result Encounter [facility] External Department Unsolicited Porsha Conway DO [address] [place] [address] Social History Tobacco Use Types Packs/Day Years [...] EDT Office [facility] [address] [facility] [place] [phone] Shwetha Walton PA [address] [place] [address] documented as of this encounter Procedures Procedure Name Priority Date/Time Associated Diagnosis Comments US OB BPP W NON-STRESS 08/06/2023 2:35 PM EDT documented in this encounter Results * US OB BPP W NON-STRESS (08/06/2023 2:35 PM EDT) Anatomical Region Laterality Modality Other 08/06/2023 2:35 PM EDT Narrative 08/06/2023 2:37 [place] [address] Ultrasound Report Signed Patient: TESS CALVERT MR#: [id number] : 1995 Acct:[id number] Age/Sex: 27 / F ADM Date: 08/06/23 Loc: [facility] 250-[address]: Porsha Conway D.O. Ordering Physician: Porsha Conway D.O. Date of Service: 08/06/23 Procedure(s): US OB BPP w non-stress Accession Number(s): [id number] cc: Porsha Conway D.O.; Aleksey Bell M.D. [place] [address] Patient Name: TESS CALVERT MRN: [id number] date: 1995 Sex: F Assigned Patient Location: [facility] Current Patient Location: [facility] Accession/Order Number: [id number] Exam Date: 08/06/2023 14:10 Report Date: 08/06/2023 14:35 At the request of: PORSHA CONWAY Procedure: US OB BPP w non-stress EXAMINATION: US OB BPP w non-stress HISTORY: Decreased movement COMPARISON: No relevant comparison available. TECHNIQUE: Ultrasound biophysical profile was performed in the radiology department. FINDINGS: BREATHING MOVEMENTS: 2.0 GROSS BODY MOVEMENTS: 2.0 TONE: 2.0 QUALITATIVE AMNIOTIC FLUID VOLUME: 2.0 PRESENTATION: CEPHALIC HEART RATE: 154.3 bpm H.B./min AMNIOTIC FLUID VOLUME: 15.8 cm cm GESTATIONAL AGE: 28 weeks 1 days CONCLUSION: Total biophysical profile score: 8.0 Electronically authenticated by: MAY PILLAI Date: 08/06/2023 14:35 Dictated By: May Pillai M.D. Signed By: 08/06/23 1437 DD/ 34 TD/TT: Knot Tying Operator: Procedure Note Radiology, Radiologist, - 08/06/2023 [place] [address] Ultrasound Report Signed Patient: TESS CALVERT AMR#: [id number] : 1995Acct:[id number] Age/Sex: 27 FADM Date: 08/06/23 Loc: [address]: Porsha Conway D.O. Ordering Physician: Porsha Conway D.O. Date of Service: 08/06/23 Procedure(s): US OB BPP w non-stress Accession Number(s): [id number] cc: Porsha Conway D.O.; Aleksey Bell M.D. The [place] [address] Patient Name: TESS CALVERT MRN: [facility]:[id number] date: 1995 Sex: F Assigned Patient Location: [facility] Current Patient Location: [facility] Accession/Order Number: [id number] Exam Date: 08/06/2023 14:10 Report Date: 08/06/2023 14:35 At the request of: PORSHA CONWAY Procedure: US OB BPP w non-stress EXAMINATION: US OB BPP w non-stress HISTORY: Decreased movement COMPARISON: No relevant comparison available. TECHNIQUE: Ultrasound biophysical profile was performed in the radiology department. FINDINGS: BREATHING MOVEMENTS: 2.0 GROSS BODY MOVEMENTS: 2.0 TONE: 2.0 QUALITATIVE AMNIOTIC FLUID VOLUME: 2.0 PRESENTATION: CEPHALIC HEART RATE: 154.3 bpm H.B./min AMNIOTIC FLUID VOLUME: 15.8 cm cm GESTATIONAL AGE: 28 weeks 1 days CONCLUSION: Total biophysical profile score: 8.0 Electronically authenticated by: MAY PILLAI Date: 08/06/2023 14:35 Dictated By: May Pillai M.D. Signed By:08/06/23 1437 DD/ 1435 TD/TT: Knot Tying Operator: Porsha Conway DO [facility] Final Result documented in this encounter Visit Diagnoses Not on filedocumented in this encounter Care Teams Gauger Delivery Relationship Specialty Start Date End Date Aleksey Bell MD [address] [place] [address] PCP - General 03/13/23 Aleksey Bell MD [address] [place] [address] Family Medicine 03/13/23 documented as of this encounter
--- OUTSIDE RECORDS SUMMARY | 2024-12-14 10:38 | XMS_ITS | Encounter Summary ---
Author Organization [facility] Address [address] [place] [address] Care Team Providers Care Orchard Sprayer Name Role Phone Aleksey Bell MD Primary Care Provider [phone] Aleksey Bell MD Unavailable [phone] Encounter Details Date Type Department Care Team (Late Contact Info) Description 08/22/2023 Abstract [facility] GREER [address] [place] [address] Judit Sarabia LPN [address] [place] [id number] Social History Tobacco Use Types Packs/Day Years [...] AM EDT Office Visit MEGHA GREER [address] [facility] [place] [address] Shwetha Walton PA [address] [place], [facility] documented as of this encounter Visit Diagnoses Not on filedocumented in this encounter Care Teams Orchard Sprayer Relationship Specialty Start Date End Date Aleksey Bell MD [address] [place] [address] PCP - General 03/13/23 Aleksey Bell MD [address] [place] [address] [phone] Family Medicine 03/13/23 documented as of this encounter
--- OUTSIDE RECORDS SUMMARY | 2024-12-14 10:38 | XMS_ITS | Encounter Summary ---
Author Organization [facility] Address [address] [facility] [place] [address] Care Team Providers Care Smash Hand Name Role Phone Aleksey Bell MD Primary Care Provider [phone] Aleksey Bell MD Unavailable [phone] Encounter Details Date Type Department Care Team (Late Contact Info) Description 03/14/2023 Clinisync Result Encounter [facility] External Department Unsolicited Porsha Conway DO [address] [facility] [address] [place], [id number] Social History Tobacco Use Types Packs/Day Years Used Date Smoking Tobacco: Never Assessed Comments Yes Sex and Gender Information Value Date Recorded Sex Assigned at Female 12/08/2024 8:50 AM EDT Legal Sex Female 8:50 AM EDT Gender Identity Female 12/08/2024 8:50 AM EDT Sexual Orientation Not on file documented as of this encounter Plan of Treatment Upcoming Encounters Date Type Department Care Team (Late Contact Info) Description 01/06/2025 11:20 AM EDT Office Visit [facility] [address] [facility] [place] [phone] Shwetha Walton PA [address] [facility] [address] [place], [place] [id number] documented as of this encounter Procedures Procedure Name Priority Date/Time Associated Diagnosis Comments US OB TRANSVAGINAL 03/14/2023 11 :57 AM EST documented in this encounter Results * US OB TRANSVAGINAL (03/14/2023 11:57 AM EST) Anatomical Region Laterality Modality Other 03/14/2023 11:5 7 AM EST Narrative 03/14/2023 11:59 [place] [address] Ultrasound Report Signed Patient: TESS ASHLEY MR#: [id number] : 1995 Acct:[id number] Age/Sex: 27 / F ADM Date: 03/14/23 Loc: US Attending Dr: Porsha Conway D.O. Ordering Physician: Porsha Conway D.O. Date of Service: 03/14/23 Procedure(s): US OB transvaginal Accession Number(s): [id number] cc: Porsha Conway D.O.; Aleksey Bell M.D. The [place] [address] Patient Name: TESS ASHLEY MRN: [id number] date: 1995 Sex: F Assigned Patient Location: US Current Patient Location: Accession/Order Number: [id number] Exam Date: 03/14/2023 09:35 Report Date: 03/14/2023 11:57 At the request of: PORSHA CONWAY Procedure: US OB transvaginal EXAMINATION: US OB transvaginal HISTORY: MISSED MENSES COMPARISON: No relevant comparison available. FINDINGS: Cabrera intrauterine gestation Gestational sac: 1.7 cm, 6 weeks 0 days CRL: 1.3 cm, 7 weeks 3 days Yolk sac: 4.5 mm Heart rate: 165 bpm Cervix: Closed, 4.0 cm The uterus is normal, anteverted, anteflexed The ovaries are normal Clinical age: Unknown Ultrasound age: 7 weeks 3 days Ultrasound KULDIP: 10/28/2023 US/US OB transvaginal IMPRESSION: Viable cabrera intrauterine gestation measuring 7 weeks 3 days Electronically authenticated by: MAY PILLAI Date: 03/14/2023 11:57 Dictated By: May Pillai M.D. Signed By: 03/14/23 1159 DD/ 1157 TD/TT: Motor Vehicle License Clerk: Procedure Note Radiology, Radiologist, - 03/14/2023 [place] [address] Ultrasound Report Signed Patient: TESS ASHLEY AMR#: [id number] : 1995Acct:[id number] Age/Sex: 27 / FADM Date: 03/14/23 Loc: US Attending Dr: Porsha Conway D.O. Ordering Physician: Porsha Conway D.O. Date of Service: 03/14/23 Procedure(s): US OB transvaginal Accession Number(s): [id number] cc: Porsha Conway D.O.; Aleksey Bell M.D. The [place] [id number] Patient Name: TESS ASHLEY MRN: [id number] date: 1995 Sex: F Assigned Patient Location: US Current Patient Location: US Accession/Order Number: [id number] Exam Date: 03/14/2023 09:35 Report Date: 03/14/2023 11:57 At the request of: PORSHA CONWAY Procedure: US OB transvaginal EXAMINATION: US OB transvaginal HISTORY: MISSED MENSES COMPARISON: No relevant comparison available. FINDINGS: Cabrera intrauterine gestation Gestational sac: 1.7 cm, 6 weeks 0 days CRL: 1.3 cm, 7 weeks 3 days Yolk sac: 4.5 mm Heart rate: 165 bpm Cervix: Closed, 4.0 cm The uterus is normal, anteverted, anteflexed The ovaries are normal Clinical age: Unknown Ultrasound age: 7 weeks 3 days Ultrasound KULDIP: 10/28/2023 US/US OB transvaginal IMPRESSION: Viable cabrera intrauterine gestation measuring 7 weeks 3 days Electronically authenticated by: MAY PILLAI Date: 03/14/2023 11:57 Dictated By: May Pillai M.D. Signed By:03/14/23 1159 DD/ 1157 TD/TT: Motor Vehicle License Clerk: us Porsha Conway DO [facility] Final Result documented in this encounter Visit Diagnoses Not on filedocumented in this encounter Care Teams Smash Hand Relationship Specialty Start Date End Date Aleksey Bell MD [address] [place] [address] [phone] PCP - General 03/13/23 Aleksey Bell MD [address] [place] [address] Family Medicine 03/13/23 documented as of this encounter
--- OUTSIDE RECORDS SUMMARY | 2024-12-14 10:38 | XMS_ITS | Encounter Summary ---
Author Organization [facility] Address [address] [facility] [place] [address] Care Team Providers Care Shoe Clerk Name Role Phone Aleksey Bell MD Primary Care Provider [phone] Aleksey Bell MD Unavailable [phone] Encounter Details Date Type Department Care Team (Late Contact Info) Description 08/21/2023 Abstract MEGHA GREER [address] [place] [address] Judit Sarabia LPN [address] [place] [phone] Social History Tobacco Use Types Packs/Day Years [...] AM EDT Office Visit MEGHA GREER [address] [facility] [place] [address] Shwetha Walton PA [address] [place], [facility]11 documented as of this encounter Visit Diagnoses Not on filedocumented in this encounter Care Teams Shoe Clerk Relationship Specialty Start Date End Date Aleksey Bell MD [address] [place] [address] PCP - General 03/13/23 Aleksey Bell MD [address] [place] [address] [phone] Family Medicine 03/13/23 documented as of this encounter
--- OUTSIDE RECORDS SUMMARY | 2024-12-14 10:38 | XMS_ITS | Encounter Summary ---
Author Organization [facility] Address [address] [facility] [place] [address] Care Team Providers Care Appointment Clerk Name Role Phone Aleksey Bell MD Primary Care Provider [phone] Aleksey Bell MD Unavailable [phone] Encounter Details Date Type Department Care Team (Late Contact Info) Description 07/22/2023 Abstract [facility]ette [facility] [place] [address] Blanca Elkins LPN [address] [facility] [place] [address] Social History Tobacco Use Types Packs/Day [...] AM EDT Office Visit MEGHA GRE[facility] [address] [facility] [place] [address] Shwetha Walton PA [address] [place], [place] [phone] documented as of this encounter Visit Diagnoses Not on filedocumented in this encounter Care Teams Appointment Clerk Relationship Specialty Start Date End Date Aleksey Bell MD [address] [place] [address] PCP - General 03/13/23 Aleksey Bell MD [address] [place] [address] [phone] Family Medicine 03/13/23 documented as of this encounter
--- OUTSIDE RECORDS SUMMARY | 2024-12-14 10:38 | XMS_ITS | Encounter Summary ---
Author Organization [facility] Address [address] [facility] [place] [address] Care Team Providers Care Adjunct Business Instructor Name Role Phone Aleksey Bell MD Primary Care Provider [phone] Aleksey Bell MD Unavailable [phone] Encounter Details Date Type Department Care Team (Late Contact Info) Description 08/14/2023 Abstract MEGHA GREER [address] [place] [address] Blanca Elkins LPN [address] [facility] [place] [address] Social History Tobacco Use Types Packs/Day [...] AM EDT Office Visit MEGHA GREER [address] [facility] [place] [address] Shwetha Walton PA [address] [place], [place] [address] documented as of this encounter Visit Diagnoses Not on filedocumented in this encounter Care Teams Adjunct Business Instructor Relationship Specialty Start Date End Date Aleksey Bell MD [address] [place] [address] PCP - General 03/13/23 Aleksey Bell MD [address] [place] [address] [phone] Family Medicine 03/13/23 documented as of this encounter
--- OUTSIDE RECORDS SUMMARY | 2024-12-14 10:38 | XMS_ITS | Encounter Summary ---
Author Organization [facility] Address [address] [facility] [place] [address] Care Team Providers Care Farebox Repairer Name Role Phone Aleksey Bell MD Primary Care Provider [phone] Aleksey Bell MD Primary Care Provider [phone] Aleksey Bell MD Unavailable [phone] Encounter Details Date Type Department Care Team (Late Contact Info) Description 03/05/2023 Abstract NOMLynette GREER [address] [facility] [place] [address] Mario Conway DO [address] [facility] [address] Fabiana [place], [place] [id number] Social History Tobacco Use Types Packs/Day Years Used Date Smoking Tobacco: Never Assessed Comments Unknown Sex and Gender Information Value Date Recorded Sex Assigned at Female 12/08/2024 8:50 AM EDT Legal Sex Female 8:50 AM EDT Gender Identity Female 12/08/2024 8:50 AM EDT Sexual Orientation Not on file documented as of this encounter Plan of Treatment Upcoming Encounters Date Type Department Care Team (Late Contact Info) Description 01/06/2025 11:20 AM EDT Office Visit NOMLynette GREER [address] [facility] [place] [phone] Shwetha Walton PA [address] [facility] [address] [place], [place] [address] documented as of this encounter Visit Diagnoses Not on filedocumented in this encounter Care Teams Farebox Repairer Relationship Specialty Start Date End Date Aleksey Bell MD PCP - General Family Medicine 01/07/19 03/12/23 Aleksey Bell MD [address] [place] [address] PCP - General 03/13/23 Aleksey Bell MD Family Medicine 03/13/23 documented as of this encounter
--- OUTSIDE RECORDS SUMMARY | 2024-12-14 10:38 | XMS_ITS | Encounter Summary ---
Author Organization [facility] Address [address] [facility] [place] [address] Care Team Providers Care Palliative Care Specialist Name Role Phone Aleksey Bell MD Primary Care Provider [phone] Aleksey Bell MD Unavailable [phone] Encounter Details Date Type Department Care Team (Late Contact Info) Description 08/13/2023 Clinisync Result Encounter [facility] External Department Unsolicited Porsha Conway DO [address] [place] [address] Social History Tobacco Use Types Packs/Day Years [...] EDT Office Visit [facility]Lynette [facility] [address] [place] [phone] Shwetha Walton PA [address] [place] [address] documented as of this encounter Procedures Procedure Name Priority Date/Time Associated Diagnosis Comments US OB GROWTH 08/13/2023 9:57 AM EDT documented in this encounter Results * US OB GROWTH (08/13/2023 9:57 AM EDT) Anatomical Region Laterality Modality Other 08/13/2023 9:57 AM EDT Narrative 08/13/2023 9:59 [place] [address] Ultrasound Report Signed Patient: TESS CALVERT MR#: [id number] : 1995 Acct:[id number] Age/Sex: 27 / F ADM Date: 08/13/23 Loc: [facility] Attending Dr: Porsha Conway D.O. Ordering Physician: Porsha Conway D.O. Date of Service: 08/13/23 Procedure(s): US OB growth Accession Number(s): [id number] cc: Porsha Conway D.O.; Aleksey Bell M.D. [place] [address] Patient Name: TESS CALVERT MRN: [facility]:[id number] date: 1995 Sex: F Assigned Patient Location: [facility] Current Patient Location: [facility] Accession/Order Number: [id number] Exam Date: 08/13/2023 09:04 Report Date: 08/13/2023 09:57 At the request of: PORSHA CONWAY Procedure: US OB growth EXAMINATION: US OB growth HISTORY: TYPE II DIABETES COMPARISON: Ultrasound OB greater than 14 weeks 05/20/2023 FINDINGS: Heart Rate: 162.0 bpm Number: 1.0 Position: CEPHALIC Amniotic Fluid Volume: 21.7 cm Maximum Vertical Pocket: 6.4 cm BIOMETRY: BPD: 7.8 cm cm; 31 weeks 2 days; 92% HC: 28.5 cmcm; 31 weeks 2 days ; 78% AC: 29.1 cm cm; 33 weeks 0 days; >97% FL: 6.4 cm cm; 32 weeks 6 days; >97% EFW: 2018.2 grams; >97% FL/AC: 21.9 FL/BPD: 81.8 HC/AC: 1.0 GESTATIONAL AGE: Age by EDC: 29 weeks 1 days KULDIP by EDC: 10/28/2023 Age by US: 32 weeks 1 day KULDIP by US: 10/07/2023 US/US OB growth IMPRESSION: 1. Single live intrauterine with growth detailed above. 2. Estimated weight is greater than 97th percentile. Dr. Conway was notified by the diet aid at time of imaging. Electronically authenticated by: SEBLE BEATTY Date: 08/13/2023 09:57 Dictated By: Seble Beatty M.D. Signed By: 08/13/2359 DD/ 6 TD/TT: Liquor Merchant: Procedure Note Radiology, Radiologist, - 08/13/2023 [place] [address] Ultrasound Report Signed Patient: TESS CALVERT AMR#: [id number] : 1995Acct:[id number] Age/Sex: 27 / FADM Date: 08/13/23 Loc: [facility] Attending Dr: Porsha Conway D.O. Ordering Physician: Porsha Conway D.O. Date of Service: 08/13/23 Procedure(s): US OB growth Accession Number(s): [id number] cc: Porsha Conway D.O.; Aleksey Bell M.D. [place] [address] Patient Name: TESS CALVERT MRN: [id number] date: 1995 Sex: F Assigned Patient Location: [facility] Current Patient Location: [facility] Accession/Order Number: [id number] Exam Date: 08/13/2023 09:04 Report Date: 08/13/2023 09:57 At the request of: PORSHA CONWAY Procedure: US OB growth EXAMINATION: US OB growth HISTORY: TYPE II DIABETES COMPARISON: Ultrasound OB greater than 14 weeks 05/20/2023 FINDINGS: Heart Rate: 162.0 bpm Number: 1.0 Position: CEPHALIC Amniotic Fluid Volume: 21.7 cm Maximum Vertical Pocket: 6.4 cm BIOMETRY: BPD: 7.8 cm cm; 31 weeks 2 days; 92% HC: 28.5 cmcm; 31 weeks 2 days ; 78% AC: 29.1 cm cm; 33 weeks 0 days; >97% FL: 6.4 cm cm; 32 weeks 6 days; >97% EFW: 2018.2 grams; >97% FL/AC: 21.9 FL/BPD: 81.8 HC/AC: 1.0 GESTATIONAL AGE: Age by EDC: 29 weeks 1 days KULDIP by EDC: 10/28/2023 Age by US: 32 weeks 1 day KULDIP by US: 10/07/2023 US/US OB growth IMPRESSION: 1. Single live intrauterine with growth detailed above. 2. Estimated weight is greater than 97th percentile. Dr. Conway was notified by the diet aid at time of imaging. Electronically authenticated by: SEBLE BEATTY Date: 08/13/2023 09:57 Dictated By: Seble Beatty M.D. Signed By:08/13/23 0959 DD/ 0957 TD/TT: Liquor Merchant: us Porsha Conway DO [facility] Final Result documented in this encounter Visit Diagnoses Not on filedocumented in this encounter Care Teams Palliative Care Specialist Relationship Specialty Start Date End Date Aleksey Bell MD [address] [place] [address] PCP - General 03/13/23 Aleksey Bell MD [address] [place] [address] Family Medicine 03/13/23 documented as of this encounter
--- NOTE | 2024-12-14 10:39 | ECG_ITS ---
[facility] Test Date: 2024-12-14 Pat Name: TESS CALVERT Department: Room: - Gender: Female Multiple Needle Stitcher: : 1995 Requested By: PORSHA MOTA Order Number: [id number] Reading MD: VERONICA CANTU Measurements Intervals [place] Rate: 79 P: 7 CO: 161 QRS: 37 QRSD: 106 T: 41 QT: 376 QTc: 431 Interpretive Statements SINUS RHYTHM Compared to ECG 09/06/2023 11:34:56 Sinus tachycardia no longer present Electronically Signed On 12-14-2024 12:58:16 EDT by VERONICA CANTU
--- OUTSIDE RECORDS SUMMARY | 2024-12-14 10:39 | XMS_ITS | Encounter Summary ---
Author Organization [facility] Address [address] [facility] [place] [address] Care Team Providers Care Instructional Design Consultant Name Role Phone Aleksey Bell MD Primary Care Provider [phone] Aleksey Bell MD Unavailable [phone] Encounter Details Date Type Department Care Team (Late Contact Info) Description 04/22/2023 Abstract MEGHA GREER [address] [employer] [address] Blanca Elkins LPN [address] [facility] [place] [address] Social History Tobacco Use Types Packs/Day [...] AM EDT Office Visit MEGHA GREER [address] [facility] [place] [address] Shwetha Walton PA [address] [place], [place] [address] documented as of this encounter Visit Diagnoses Not on filedocumented in this encounter Care Teams Instructional Design Consultant Relationship Specialty Start Date End Date Aleksey Bell MD [address] [place] [address] PCP - General 03/13/23 Aleksey Bell MD [address] [place] [address] [phone] Family Medicine 03/13/23 documented as of this encounter
--- OUTSIDE RECORDS SUMMARY | 2024-12-14 10:39 | XMS_ITS | Encounter Summary ---
Author Organization [facility] Address [address] [facility] [place] [address] Care Team Providers Care Digital Color Press Operator Name Role Phone Aleksey Bell MD Primary Care Provider [phone] Aleksey Bell MD Unavailable [phone] Encounter Details Date Type Department Care Team (Late Contact Info) Description 12/07/2024 Abstract NOMLynette GREER [address] [facility] [place] [address] Ashley Quintanilla MA Social History Tobacco Use Types Packs/Day Years Used Date Smoking Tobacco: Never Smokeless Tobacco: Never Alcohol Use Standard Drinks/Week Comments Never 0 (1 standard drink = 0.6 oz pur e alcohol) Comments No Sex and Gender Information Value Date Recorded Sex Assigned at Female 12/08/2024 8:50 AM EDT Legal Sex Female 8:50 AM EDT Gender Identity Female 12/08/2024 8:50 AM EDT Sexual Orientation Not on file documented as of this encounter Plan of Treatment Upcoming Encounters Date Type Department Care Team (Late Contact Info) Description 01/06/2025 11:20 AM EDT Office Visit MEGHA GREER [address] [place] [address] Shwetha Walton PA [address] [facility] [address] documented as of this encounter Visit Diagnoses Not on filedocumented in this encounter Care Teams Digital Color Press Operator Relationship Specialty Start Date End Date Aleksey Bell MD [address] [place] [address] PCP - General 03/13/23 Aleksey Bell MD [address] [place] [address] Family Medicine 03/13/23 documented as of this encounter
--- OUTSIDE RECORDS SUMMARY | 2024-12-14 10:39 | XMS_ITS | Encounter Summary ---
Author Organization [facility] Address [address] [place] [place] [address] Care Team Providers Care Office Engineer Name Role Phone Aleksey Bell MD Primary Care Provider [phone] Aleksey Bell MD Unavailable [phone] Encounter Details Date Type Department Care Team (Late Contact Info) Description 11/26/2023 Abstract NOMLynette GREER [address] [place] [address] Mario Conway DO [address] [facility] [address] [place]li[place], [facility] Social History Tobacco Use Types Packs/Day Years [...] AM EDT Office Visit NOMLynette GREER [address] [place] [address] Shwetha Walton PA [address] [facility] [address] [place], [place] [address] documented as of this encounter Visit Diagnoses Not on filedocumented in this encounter Care Teams Office Engineer Relationship Specialty Start Date End Date Aleksey Bell MD [address] [place] [address] PCP - General 03/13/23 Aleksey Bell MD [address] [place] [address] [phone] Family Medicine 03/13/23 documented as of this encounter
--- OUTSIDE RECORDS SUMMARY | 2024-12-14 10:39 | XMS_ITS | Encounter Summary ---
Author Organization [facility] Address [address] [facility] [place] [address] Care Team Providers Care Undercover Agent Name Role Phone Aleksey Bell MD Primary Care Provider [phone] Aleksey Bell MD Unavailable [phone] Encounter Details Date Type Department Care Team (Late Contact Info) Description 09/29/2023 Abstract NOMLynette GREER [address] [facility] [place] [address] Mario Conway DO [address] [facility] [address] [place], [facility] Social History Tobacco Use Types Packs/Day Years [...] AM EDT Office Visit NOMLynette GREER [address] [facility] [place] [address] Shwetha Walton PA [address] [facility] [address] [place], [place] [address] documented as of this encounter Visit Diagnoses Not on filedocumented in this encounter Care Teams Undercover Agent Relationship Specialty Start Date End Date Aleksey eBll MD [address] [place] [address] PCP - General 03/13/23 Aleksey Bell MD [address] [place] [address] [phone] Family Medicine 03/13/23 documented as of this encounter
--- OUTSIDE RECORDS SUMMARY | 2024-12-14 10:39 | XMS_ITS | Encounter Summary ---
Author Organization [facility] Address [address] [facility] [place] [address] Care Team Providers Care Software Application Tester Name Role Phone Aleksey Bell MD Primary Care Provider [phone] Aleksey Bell MD Unavailable [phone] Encounter Details Date Type Department Care Team (Late Contact Info) Description 09/30/2023 Abstract NOMLynette GREER [address] [employer] [place] [address] Judit Sarabia LPN [address] [employer] [place] [id number] Social History Tobacco Use Types Packs/Day Years [...] AM EDT Office Visit NOMLynette GREER [address] [place] [address] Shwetha Walton PA [address] [place] [address] documented as of this encounter Visit Diagnoses Not on filedocumented in this encounter Care Teams Software Application Tester Relationship Specialty Start Date End Date Aleksey Bell MD [address] [place] [address] PCP - General 03/13/23 Aleksey Bell MD [address] [place] [address] [phone] Family Medicine 03/13/23 documented as of this encounter
--- OUTSIDE RECORDS SUMMARY | 2024-12-14 10:39 | XMS_ITS | Encounter Summary ---
Author Organization [facility] Address [address] [facility] [place] [address] Care Team Providers Care International Accountant Name Role Phone Aleksey Bell MD Primary Care Provider [phone] Aleksey Bell MD Unavailable [phone] Encounter Details Date Type Department Care Team (Late Contact Info) Description 01/30/2024 Clinisync Result Encounter [facility] External Department Unsolicited Porsha Conway DO [address] [facility] [address] [place], [facility] Social History Tobacco Use Types Packs/Day Years Used Date Smoking Tobacco: Never Smokeless Tobacco: Never Alcohol Use Standard Drinks/Week Comments Never 0 (1 standard drink = 0.6 oz pur e alcohol) Comments Unknown Sex and Gender Information Value Date Recorded Sex Assigned at Female 12/08/2024 8:50 AM EDT Legal Sex Female 8:50 AM EDT Gender Identity Female 12/08/2024 8:50 AM EDT Sexual Orientation Not on file documented as of this encounter Plan of Treatment Upcoming Encounters Date Type Department Care Team (Late Contact Info) Description 01/06/2025 11:20 AM EDT Office Visit NOMLynette GREER [address] [facility] [place] [address] Shwetha Walton PA [address] [facility] [place] [address] documented as of this encounter Procedures Procedure Name Priority Date/Time Associated Diagnosis Comments US PELVIS TRANSVAGINAL 01/30/2024 5:49 AM EST documented in this encounter Results * US PELVIS TRANSVAGINAL (01/30/2024 5:49 AM EST) Anatomical Region Laterality Modality Other 01/30/2024 5:49 AM EST Narrative 01/30/2024 5:51 [place] [address] Ultrasound Report Signed Patient: TESS CALVERT MR#: [id number] : 1995 Acct:[id number] Age/Sex: 28 / F ADM Date: 01/29/24 Loc: [facility] Attending Dr: Porsha Conawy D.O. Ordering Physician: Porsha Conway D.O. Date of Service: 01/29/24 Procedure(s): US pelvis transvaginal Accession Number(s): [id number] cc: Porsha Conway D.O.; Aleksey Bell M.D. [place] [id number] Patient Name: TESS CALVERT MRN: [id number] date: 1995 Sex: F Assigned Patient Location: [facility] Current Patient Location: Accession/Order Number: [id number] Exam Date: 01/29/2024 10:00 Report Date: 01/30/2024 05:49 At the request of: PORSHA CONWAY Procedure: US pelvis transvaginal EXAMINATION: US pelvis transvaginal HISTORY: IUD PLACEMENT , bleeding COMPARISON: No relevant comparison available. TECHNIQUE: Transabdominal and/or transvaginal sonographic examination was performed as indicated by examination type. FINDINGS: UTERUS: Normal size and appearance. Uterus size: 9.7 x 4.1 x 5.2 cm ENDOMETRIUM: IUD within fundal endometrial cavity. Endometrial thickness: 5 mm RIGHT OVARY: Normal size and appearance. Duplex Doppler demonstrates normal waveform and flow; resistive index 0.5. Ovary size: 4.1 x 2.3 x 2.7 cm LEFT OVARY: Contains a 1.5 cm benign-appearing cyst. Duplex Doppler demonstrates normal waveform and flow; resistive index 0.5. Ovary size: 3.8 x 1.9 x 3.9 cm CUL-DE-SAC: Unremarkable. No significant free fluid. BLADDER: Unremarkable. OTHER: None. US/US pelvis transvaginal IMPRESSION: 1. IUD within endometrial cavity. 2. Benign-appearing 1.5 cm cyst within left ovary. 3. Unremarkable uterus and endometrium. Electronically authenticated by: SEBLE BEATTY Date: 01/30/2024 05:49 Dictated By: Seble Beatty M.D. Signed By: 01/30/2451 DD/ TD/TT: Associate Professor Of Automation: Procedure Note Radiology, Radiologist, MD - 01/30/2024 [place] [address] Ultrasound Report Signed Patient: TESS CALVERT AMR#: [id number] : 1995Acct:[id number] Age/Sex: 28 FADM Date: 01/29/24 Loc: [facility] Attending Dr: Porsha Conway D.O. Ordering Physician: Porsha Conway D.O. Date of Service: 01/29/24 Procedure(s): US pelvis transvaginal Accession Number(s): [id number] cc: Porsha Conway D.O.; Aleksey Bell M.D. The [place] [id number] Patient Name: TESS CALVERT MRN: [id number] date: 1995 Sex: F Assigned Patient Location: [facility] Current Patient Location: Accession/Order Number: [id number] Exam Date: 01/29/2024 10:00 Report Date: 01/30/2024 05:49 At the request of: PORSHA CONWAY Procedure: US pelvis transvaginal EXAMINATION: US pelvis transvaginal HISTORY: IUD PLACEMENT , bleeding COMPARISON: No relevant comparison available. TECHNIQUE: Transabdominal and/or transvaginal sonographic examination was performed as indicated by examination type. FINDINGS: UTERUS: Normal size and appearance. Uterus size: 9.7 x 4.1 x 5.2 cm ENDOMETRIUM: IUD within fundal endometrial cavity. Endometrial thickness:5 mm RIGHT OVARY: Normal size and appearance. Duplex Doppler demonstratesnormal waveform and flow; resistive index 0.5. Ovary size: 4.1 x 2.3 x 2.7 cm LEFT OVARY: Contains a 1.5 cm benign-appearing cyst. Duplex Doppler demonstrates normal waveform and flow; resistive index 0.5. Ovary size:3.8 x 1.9 x 3.9 cm CUL-DE-SAC: Unremarkable. No significant free fluid. BLADDER: Unremarkable. OTHER: None. US/US pelvis transvaginal IMPRESSION: 1. IUD within endometrial cavity. 2. Benign-appearing 1.5 cm cyst within left ovary. 3. Unremarkable uterus and endometrium. Electronically authenticated by: SEBLE BEATTY Date: 01/30/2024 05:49 Dictated By: Seble Beatty M.D. Signed By:01/30/24 0551 DD/ 0549 TD/TT: Associate Professor Of Automation: us Porsha Zoraida DO [facility] Final Result documented in this encounter Visit Diagnoses Not on filedocumented in this encounter Care Teams International Accountant Relationship Specialty Start Date End Date Aleksey Bell MD [address] [place] [address] PCP - General 03/13/23 Aleksey Bell MD [address] [place] [address] Family Medicine 03/13/23 documented as of this encounter
--- OUTSIDE RECORDS SUMMARY | 2024-12-14 10:39 | XMS_ITS | Encounter Summary ---
Author Organization [facility] Address [address] [facility] [place] [address] Care Team Providers Care User Interface Engineer Name Role Phone Aleksey Bell MD Primary Care Provider [phone] Aleksey Bell MD Unavailable [phone] Encounter Details Date Type Department Care Team (Late Contact Info) Description 09/02/2023 Clinisync Result Encounter N[facility]S External Department Unsolicited Porsha Conway DO [address] [place], [facility]11 Social History Tobacco Use Types Packs/Day Years [...] AM EDT Office Visit NOMLynette GREER [address] [facility] [place] [phone] Shwetha Walton PA [address] [facility] [place] [address] documented as of this encounter Procedures Procedure Name Priority Date/Time Associated Diagnosis Comments US OB BPP W NON-STRESS 09/02/2023 1:06 PM EDT documented in this encounter Results * US OB BPP W NON-STRESS (09/02/2023 1:06 PM EDT) Anatomical Region Laterality Modality Other 09/02/2023 1:06 PM EDT Narrative 09/02/2023 1:09 [place] [address] Ultrasound Report Signed Patient: TESS CALVERT MR#: [id number] : 1995 Acct:[id number] Age/Sex: 27 / F ADM Date: 09/02/23 Loc: US Attending Dr: Porsha Conway D.O. Ordering Physician: Porsha Conway D.O. Date of Service: 09/02/23 Procedure(s): US OB BPP w non-stress Accession Number(s): [id number] cc: Porsha Conway D.O.; Aleksey Bell M.D. [place] [address] Patient Name: TESS CALVERT MRN: [id number] date: 1995 Sex: F Assigned Patient Location: [facility] Current Patient Location: Accession/Order Number: [id number] Exam Date: 09/02/2023 11:55 Report Date: 09/02/2023 13:06 At the request of: PORSHA CONWAY Procedure: US OB BPP w non-stress EXAMINATION: US OB BPP w non-stress HISTORY: Decrease movements O39.8120 COMPARISON: No relevant comparison available. TECHNIQUE: Ultrasound biophysical profile was performed in the radiology department. FINDINGS: BREATHING MOVEMENTS: 0 GROSS BODY MOVEMENTS: 2 TONE: 2 QUALITATIVE AMNIOTIC FLUID VOLUME: 2 PRESENTATION: CEPHALIC HEART RATE: 140.63 bpm AMNIOTIC FLUID VOLUME: 18.0 cm GESTATIONAL AGE: 32 weeks 0 days US/US OB BPP w non-stress IMPRESSION: Total biophysical profile score: 6 Electronically authenticated by: MAY PILLAI Date: 09/02/2023 13:06 Dictated By: May Pillai M.D. Signed By: 09/02/23 1309 DD/ 130 TD/TT: Human Resources Leader: Procedure Note Radiology, Radiologist, - 09/02/2023 [place] [address] Ultrasound Report Signed Patient: TESS CALVERT AMR#: [id number] : 1995Acct:[id number] Age/Sex: 27 / FADM Date: 09/02/23 Loc: US Attending Dr: Porsha Conway D.O. Ordering Physician: Porsha Conway D.O. Date of Service: 09/02/23 Procedure(s): US OB BPP w non-stress Accession Number(s): [id number] cc: Porsha Conway D.O.; Aleksey eBll M.D. The [place] [id number] Patient Name: TESS CALVERT MRN: [facility]:[id number] date: 1995 Sex: F Assigned Patient Location: [facility] Current Patient Location: Accession/Order Number: [id number] Exam Date: 09/02/2023 11:55 Report Date: 09/02/2023 13:06 At the request of: PORSHA CONWAY Procedure: US OB BPP w non-stress EXAMINATION: US OB BPP w non-stress HISTORY: Decrease movements O39.8120 COMPARISON: No relevant comparison available. TECHNIQUE: Ultrasound biophysical profile was performed in the radiology department. FINDINGS: BREATHING MOVEMENTS: 0 GROSS BODY MOVEMENTS: 2 TONE: 2 QUALITATIVE AMNIOTIC FLUID VOLUME: 2 PRESENTATION: CEPHALIC HEART RATE: 140.63 bpm AMNIOTIC FLUID VOLUME: 18.0 cm GESTATIONAL AGE: 32 weeks 0 days US/US OB BPP w non-stress IMPRESSION: Total biophysical profile score: 6 Electronically authenticated by: MAY PILLAI Date: 09/02/2023 13:06 Dictated By: May Pillai M.D. Signed By:09/02/23 1309 DD/ 1306 TD/TT: Human Resources Leader: us Porsha Mclaino DO [facility] Final Result documented in this encounter Visit Diagnoses Not on filedocumented in this encounter Care Teams User Interface Engineer Relationship Specialty Start Date End Date Aleksey Bell MD [address] [place] [address] PCP - General 03/13/23 Aleksey Bell MD [address] [place] [address] Family Medicine 03/13/23 documented as of this encounter
--- OUTSIDE RECORDS SUMMARY | 2024-12-14 10:39 | XMS_ITS | Encounter Summary ---
Author Organization [facility] Address [address] [facility] [place] [address] Care Team Providers Care Pole Shaver Helper Name Role Phone Aleksey Bell MD Primary Care Provider [phone] Aleksey Bell MD Unavailable [phone] Encounter Details Date Type Department Care Team (Late Contact Info) Description 11/25/2024 External Result Encounter [facility]OMS External Department Unsolicited Mario Conway DO [address] [place], [place] [id number] Social History Tobacco Use Types Packs/Day Years [...] AM EDT Office Visit NOMLynette GREER [address] [facility] [place] [phone] Shwetha Walton PA [address] [facility] [address] [place], [facility]11 documented as of this encounter Procedures Procedure Name Priority Date/Time Associated Diagnosis Comments PATHOLOGY REQUEST FOR LAB SANDY Routine 11/25/2024 10:28 AM EDT documented in this encounter Results * PATHOLOGY REQUEST FOR LAB SANDY (11/25/2024 10:28 AM EDT) PATHOLOGY REQUEST FOR LAB SANDY 12/07/2024 8:07 AM EDT [facility] Comment:See report. Scanned copy available in EMR. Other Topography unknown / Unknown 11/25/2024 10:28 AM EDT 11/26/2024 1:02 PM EDT us Mario Zoraida DO LAB BLOOD ORDERABLES Final Resul t Performing Organization Address City/State/[facility] Co de Phone Number [facility] [address] [place] [address], [facility] [address] [place] [address] documented in this encounter Visit Diagnoses Not on filedocumented in this encounter Care Teams Pole Shaver Helper Relationship Specialty Start Date End Date Aleksey Bell MD [address] [place] [address] PCP - General 03/13/23 Aleksey Bell MD [address] [place] [address] Family Medicine 03/13/23 documented as of this encounter
--- OUTSIDE RECORDS SUMMARY | 2024-12-14 10:39 | XMS_ITS | Encounter Summary ---
Author Organization [facility] Address [address] [facility] [place] [address] Care Team Providers Care Allied Health Teacher Name Role Phone Aleksey Bell MD Primary Care Provider [phone] Aleksey Bell MD Unavailable [phone] Encounter Details Date Type Department Care Team (Late Contact Info) Description 09/03/2023 Clinisync Result Encounter NOMS External Department Unsolicited Porsha Conway DO [address] [place], [facility]11 Social History Tobacco Use Types Packs/Day Years [...] AM EDT Office Visit NOMLynette GREER [address] [facility] [place] [phone] Shwetha Walton PA [address] [facility] [place] [address] documented as of this encounter Procedures Procedure Name Priority Date/Time Associated Diagnosis Comments US OB BPP W NON-STRESS 09/03/2023 12:53 PM EDT documented in this encounter Results * US OB BPP W NON-STRESS (09/03/2023 12:53 PM EDT) Anatomical Region Laterality Modality Other 09/03/2023 12:5 3 PM EDT Narrative 09/03/2023 12:55 [place] [address] Ultrasound Report Signed Patient: TESS CALVERT MR#: [id number] : 1995 Acct:[id number] Age/Sex: 27 / F ADM Date: 09/03/23 Loc: [facility] 250-[address]: Porsha Conway D.O. Ordering Physician: Porsha Conway D.O. Date of Service: 09/03/23 Procedure(s): US OB BPP w non-stress Accession Number(s): [id number] cc: Porsha Conway D.O.; Aleksey Bell M.D. [place] [address] Patient Name: TESS CALVERT MRN: [id number] date: 1995 Sex: F Assigned Patient Location: [facility] Current Patient Location: [facility] Accession/Order Number: [id number] Exam Date: 09/03/2023 12:02 Report Date: 09/03/2023 12:53 At the request of: PORSHA CONWAY Procedure: US OB BPP w non-stress EXAMINATION: US OB BPP w non-stress HISTORY: Decreased movement COMPARISON: No relevant comparison available. TECHNIQUE: Ultrasound biophysical profile was performed in the radiology department. FINDINGS: BREATHING MOVEMENTS: 2 GROSS BODY MOVEMENTS: 2 TONE: 2 QUALITATIVE AMNIOTIC FLUID VOLUME: 2 PRESENTATION: CEPHALIC HEART RATE: 138.46 bpm AMNIOTIC FLUID VOLUME: 13.8 cm GESTATIONAL AGE: 32 weeks 1 day US/US OB BPP w non-stress IMPRESSION: Total biophysical profile score: 8 Electronically authenticated by: MAY PILLAI Date: 09/03/2023 12:53 Dictated By: May Pillai M.D. Signed By: 09/03/23 1255 DD/ 125 TD/TT: Power Plant Operators Supervisor: Procedure Note Radiology, Radiologist, - 09/03/2023 [place] [address] Ultrasound Report Signed Patient: TESS CALVERT AMR#: [id number] : 1995Acct:[id number] Age/Sex: 27 / FADM Date: 09/03/23 Loc: [facility] 250-[address]: Porsha Conway D.O. Ordering Physician: Porsha Conway D.O. Date of Service: 09/03/23 Procedure(s): US OB BPP w non-stress Accession Number(s): [id number] cc: Porsha Conway D.O.; Aleksey Bell M.D. The [place] [address] Patient Name: TESS CALVERT MRN: [facility]:[id number] date: 1995 Sex: F Assigned Patient Location: [facility] Current Patient Location: [facility] Accession/Order Number: [id number] Exam Date: 09/03/2023 12:02 Report Date: 09/03/2023 12:53 At the request of: PORSHA CONWAY Procedure: US OB BPP w non-stress EXAMINATION: US OB BPP w non-stress HISTORY: Decreased movement COMPARISON: No relevant comparison available. TECHNIQUE: Ultrasound biophysical profile was performed in the radiology department. FINDINGS: BREATHING MOVEMENTS: 2 GROSS BODY MOVEMENTS: 2 TONE: 2 QUALITATIVE AMNIOTIC FLUID VOLUME: 2 PRESENTATION: CEPHALIC HEART RATE: 138.46 bpm AMNIOTIC FLUID VOLUME: 13.8 cm GESTATIONAL AGE: 32 weeks 1 day US/US OB BPP w non-stress IMPRESSION: Total biophysical profile score: 8 Electronically authenticated by: MAY PILLAI Date: 09/03/2023 12:53 Dictated By: May Pillai M.D. Signed By:09/03/23 1255 DD/ 1253 TD/TT: Power Plant Operators Supervisor: us Porsha Mclaino DO [facility] Final Result documented in this encounter Visit Diagnoses Not on filedocumented in this encounter Care Teams Allied Health Teacher Relationship Specialty Start Date End Date Aleksey Bell MD [address] [place] [address] PCP - General 03/13/23 Aleksey Bell MD [address] [place] [address] Family Medicine 03/13/23 documented as of this encounter
--- OUTSIDE RECORDS SUMMARY | 2024-12-14 10:39 | XMS_ITS | Encounter Summary ---
Author Organization [facility] Address [address] [place] [address] Care Team Providers Care Workers Compensation Claims Examiner Name Role Phone Aleksey Bell MD Primary Care Provider [phone] Aleksey Bell MD Unavailable [phone] Encounter Details Date Type Department Care Team (Late Contact Info) Description 09/16/2023 Clinisync Result Encounter NOMS External Department Unsolicited Porsha Conway DO [address] [facility] [address] [place], [facility]11 Social History [...] [facility] [place] [phone] Shwetha Walton PA [address] [facility] [address] [place], [place] [phone] documented as of this encounter Procedures Procedure Name Priority Date/Time Associated Diagnosis Comments US OB BPP W NON-STRESS 09/16/2023 11:28 AM EDT documented in this encounter Results * US OB BPP W NON-STRESS (09/16/2023 11:28 AM EDT) Anatomical Region Laterality Modality Other 09/16/2023 11:2 8 AM EDT Narrative 09/16/2023 11:30 [place] [address] Ultrasound Report Signed Patient: TESS CALVERT MR#: [id number] : 1995 Acct:[id number] Age/Sex: 27 / F ADM Date: 09/16/23 Loc: [facility] 254-[address]: Porsha Conway D.O. Ordering Physician: Porsha Conway D.O. Date of Service: 09/16/23 Procedure(s): US OB BPP w non-stress Accession Number(s): [id number] cc: Porsha Conway D.O.; Aleksey Bell M.D. [place] [address] Patient Name: TESS CALVERT MRN: [id number] date: 1995 Sex: F Assigned Patient Location: [facility] Current Patient Location: [facility] Accession/Order Number: [id number] Exam Date: 09/16/2023 11:02 Report Date: 09/16/2023 11:28 At the request of: PORSHA CONWAY Procedure: US OB BPP w non-stress EXAMINATION: US OB BPP w non-stress HISTORY: Decreased movement COMPARISON: 09/09/2023 TECHNIQUE: Ultrasound biophysical profile was performed in the radiology department. non-reactive stress testing was performed by nursing staff in the birthing center. FINDINGS: BREATHING MOVEMENTS: 2 GROSS BODY MOVEMENTS: 2 TONE: 2 QUALITATIVE AMNIOTIC FLUID VOLUME: 2 PRESENTATION: CEPHALIC HEART RATE: 157.89 bpm AMNIOTIC FLUID VOLUME: 29.9 cm GESTATIONAL AGE: 34 weeks 0 days US/US OB BPP w non-stress IMPRESSION: Total biophysical profile score: 8 Polyhydramnios Electronically authenticated by: MAY PILLAI Date: 09/16/2023 11:28 Dictated By: May Pillai M.D. Signed By: 09/16/23 1130 DD/ 1128 TD/TT: Training And Development Manager: Procedure Note Radiology, Radiologist, MD - 09/16/2023 [place] [address] Ultrasound Report Signed Patient: TESS CALVERT AMR#: [id number] : 1995Acct:[id number] Age/Sex: 27 / FADM Date: 09/16/23 Loc: [facility] 254-[address]: Porsha Conway D.O. Ordering Physician: Porsha Conway D.O. Date of Service: 09/16/23 Procedure(s): US OB BPP w non-stress Accession Number(s): [id number] cc: Porsha Conway D.O.; Aleksey Bell M.D. The [place] [address] Patient Name: TESS CALVERT MRN: [id number] date: 1995 Sex: F Assigned Patient Location: [facility] Current Patient Location: [facility] Accession/Order Number: [id number] Exam Date: 09/16/2023 11:02 Report Date: 09/16/2023 11:28 At the request of: PORSHA CONWAY Procedure: US OB BPP w non-stress EXAMINATION: US OB BPP w non-stress HISTORY: Decreased movement COMPARISON: 09/09/2023 TECHNIQUE: Ultrasound biophysical profile was performed in the radiology department. non-reactive stress testing was performed by nursingstaff in the birthing center. FINDINGS: BREATHING MOVEMENTS: 2 GROSS BODY MOVEMENTS: 2 TONE: 2 QUALITATIVE AMNIOTIC FLUID VOLUME: 2 PRESENTATION: CEPHALIC HEART RATE: 157.89 bpm AMNIOTIC FLUID VOLUME: 29.9 cm GESTATIONAL AGE: 34 weeks 0 days US/US OB BPP w non-stress IMPRESSION: Total biophysical profile score: 8 Polyhydramnios Electronically authenticated by: MAY PILLAI Date: 09/16/2023 11:28 Dictated By: May Pillai M.D. Signed By:09/16/23 1130 DD/ 1128 TD/TT: Training And Development Manager: us Porsha Zoraida DO [facility] Final Result documented in this encounter Visit Diagnoses Not on filedocumented in this encounter Care Teams Workers Compensation Claims Examiner Relationship Specialty Start Date End Date Aleksey Bell MD [address] [place] [address] PCP - General 03/13/23 Aleksey Bell MD [address] [place] [address] Family Medicine 03/13/23 documented as of this encounter
--- OUTSIDE RECORDS SUMMARY | 2024-12-14 10:39 | XMS_ITS | Encounter Summary ---
Author Organization [facility] Address [address] [facility] [place] [address] Care Team Providers Care Stem Crusher Name Role Phone Aleksey Bell MD Primary Care Provider [phone] Aleksey Bell MD Unavailable [phone] Encounter Details Date Type Department Care Team (Late Contact Info) Description 07/01/2023 Abstract MEGHA GREER [address] [place] [address] Blanca Elkins LPN [address] [facility] [place] [address] Social History Tobacco Use Types Packs/Day [...] 01/06/2025 11:20 AM EDT Office Visit MEGHA GERER [address] [place] [address] Shwetha Walton PA [address] [place], [place] [phone] documented as of this encounter Visit Diagnoses Not on filedocumented in this encounter Care Teams Stem Crusher Relationship Specialty Start Date End Date Aleksey Bell MD [address] [place] [address] PCP - General 03/13/23 Aleksey Bell MD [address] [place] [address] [phone] Family Medicine 03/13/23 documented as of this encounter
--- OUTSIDE RECORDS SUMMARY | 2024-12-14 10:39 | XMS_ITS | Encounter Summary ---
Author Organization [facility] Address [address] [facility] [place] [address] Care Team Providers Care Visual Stylist Name Role Phone Aleksey Bell MD Primary Care Provider [phone] Aleksey Bell MD Unavailable [phone] Encounter Details Date Type Department Care Team (Late Contact Info) Description 09/23/2023 Clinisync Result Encounter NOMS External Department Unsolicited Porsha Conway DO [address] [place], [facility]11 Social History Tobacco Use Types Packs/Day Years [...] Office Visit NOMLynette GREER [address] [facility] [place] [phone] Shwetha Walton PA [address] [place] [address] documented as of this encounter Procedures Procedure Name Priority Date/Time Associated Diagnosis Comments US OB BPP W NON-STRESS 09/23/2023 12:18 PM EDT documented in this encounter Results * US OB BPP W NON-STRESS (09/23/2023 12:18 PM EDT) Anatomical Region Laterality Modality Other 09/23/2023 12:1 8 PM EDT Narrative 09/23/2023 12:20 [place] [address] Ultrasound Report Signed Patient: TESS CALVERT MR#: [id number] : 1995 Acct:[id number] Age/Sex: 27 / F ADM Date: 09/23/23 Loc: US Attending Dr: Porsha Conway D.O. Ordering Physician: Porsha Conway D.O. Date of Service: 09/23/23 Procedure(s): US OB BPP w non-stress Accession Number(s): [id number] cc: Porsha Conway D.O.; Aleksey Bell M.D. [place] [id number] Patient Name: TESS CALVERT MRN: [id number] date: 1995 Sex: F Assigned Patient Location: [facility] Current Patient Location: Accession/Order Number: [id number] Exam Date: 09/23/2023 11:30 Report Date: 09/23/2023 12:18 At the request of: PORSHA CONWAY Procedure: US OB BPP w non-stress EXAMINATION: US OB BPP w non-stress HISTORY: Decrease movement O36.8120 COMPARISON: No relevant comparison available. TECHNIQUE: Ultrasound biophysical profile was performed in the radiology department. FINDINGS: BREATHING MOVEMENTS: 2 GROSS BODY MOVEMENTS: 2 TONE: 2 QUALITATIVE AMNIOTIC FLUID VOLUME: 2 PRESENTATION: CEPHALIC HEART RATE: 151.69 bpm AMNIOTIC FLUID VOLUME: 25.8 cm GESTATIONAL AGE: 35 weeks 0 days US/US OB BPP w non-stress IMPRESSION: Total biophysical profile score: 8 Polyhydramnios Electronically authenticated by: MAY PILLAI Date: 09/23/2023 12:18 Dictated By: May Pillai M.D. Signed By: 09/23/23 1220 DD/ 1218 TD/TT: Senior Ecologist: Procedure Note Radiology, Radiologist, - 09/23/2023 [place] [address] Ultrasound Report Signed Patient: TESS CALVERT AMR#: [id number] : 1995Acct:[id number] Age/Sex: 27 / FADM Date: 09/23/23 Loc: US Attending Dr: Porsha Conway D.O. Ordering Physician: Porsha Conway D.O. Date of Service: 09/23/23 Procedure(s): US OB BPP w non-stress Accession Number(s): [id number] cc: Porsha Conway D.O.; Aleksey Bell M.D. The [place] [id number] Patient Name: TESS CALVERT MRN: [facility]:[id number] date: 1995 Sex: F Assigned Patient Location: [facility] Current Patient Location: Accession/Order Number: [id number] Exam Date: 09/23/2023 11:30 Report Date: 09/23/2023 12:18 At the request of: PORSHA CONWAY Procedure: US OB BPP w non-stress EXAMINATION: US OB BPP w non-stress HISTORY: Decrease movement O36.8120 COMPARISON: No relevant comparison available. TECHNIQUE: Ultrasound biophysical profile was performed in the radiology department. FINDINGS: BREATHING MOVEMENTS: 2 GROSS BODY MOVEMENTS: 2 TONE: 2 QUALITATIVE AMNIOTIC FLUID VOLUME: 2 PRESENTATION: CEPHALIC HEART RATE: 151.69 bpm AMNIOTIC FLUID VOLUME: 25.8 cm GESTATIONAL AGE: 35 weeks 0 days US/US OB BPP w non-stress IMPRESSION: Total biophysical profile score: 8 Polyhydramnios Electronically authenticated by: MAY PILLAI Date: 09/23/2023 12:18 Dictated By: May Pillai M.D. Signed By:09/23/23 1220 DD/ 1218 TD/TT: Senior Ecologist: us Porsha Zoraida DO [facility] Final Result documented in this encounter Visit Diagnoses Not on filedocumented in this encounter Care Teams Visual Stylist Relationship Specialty Start Date End Date Aleksey Bell MD [address] [place] [address] PCP - General 03/13/23 Aleksey Bell MD [address] [place] [address] Family Medicine 03/13/23 documented as of this encounter
--- OUTSIDE RECORDS SUMMARY | 2024-12-14 10:39 | XMS_ITS | Encounter Summary ---
Author Organization [facility] Address [address] [facility] [place] [address] Care Team Providers Care Still Operator Batch Or Continuous Name Role Phone Aleksey Bell MD Primary Care Provider [phone] Aleksey Bell MD Unavailable [phone] Encounter Details Date Type Department Care Team (Late Contact Info) Description 09/18/2023 Abstract NOMLynette GREER [address] [place] [address] Mario Conway DO [address] [facility] [address] [place], [facility]11 Social History Tobacco Use Types Packs/Day [...] AM EDT Office Visit NOMLynette GREER [address] [place] [address] Shwetha Walton PA [address] [facility] [address] [place], [place] [address] documented as of this encounter Visit Diagnoses Not on filedocumented in this encounter Care Teams Still Operator Batch Or Continuous Relationship Specialty Start Date End Date Aleksey Bell MD [address] [place] [address] PCP - General 03/13/23 Aleksey Bell MD [address] [place] [address] [phone] Family Medicine 03/13/23 documented as of this encounter
--- OUTSIDE RECORDS SUMMARY | 2024-12-14 10:39 | XMS_ITS | Encounter Summary ---
Author Organization [facility] Address [address] [facility] [place] [address] Care Team Providers Care Merchandise Carrier Name Role Phone Aleksey Bell MD Primary Care Provider [phone] Aleksey Bell MD Unavailable [phone] Encounter Details Date Type Department Care Team (Late Contact Info) Description 09/18/2023 Abstract [facility] [address] [place] [id number] Mario Conway DO [address] [facility] [address] Fabiana Klein, [facility] Social History Tobacco Use Types Packs/Day [...] AM EDT Office Visit NOMLynette GREER [address] [place] [address] Shwetha Walton PA [address] [place], [place] [phone] documented as of this encounter Visit Diagnoses Not on filedocumented in this encounter Care Teams Merchandise Carrier Relationship Specialty Start Date End Date Aleksey Bell MD [address] [place] [address] PCP - General 03/13/23 Aleksey Bell MD [address] [place] [phone] Family Medicine 03/13/23 documented as of this encounter
--- OUTSIDE RECORDS SUMMARY | 2024-12-14 10:39 | XMS_ITS | Encounter Summary ---
Author Organization [facility] Address [address] [facility] [place] [address] Care Team Providers Care Carton And Can Supply Supervisor Name Role Phone Aleksey Bell MD Primary Care Provider [phone] Aleksey Bell MD Unavailable [phone] Encounter Details Date Type Department Care Team (Late Contact Info) Description 08/27/2023 Clinisync Result Encounter [facility] External Department Unsolicited Porsha Conway DO [address], [facility]11 Social History Tobacco Use Types [...] AM EDT Office Visit [facility] GREER [address] [facility] [place] [phone] Shwetha Walton PA [address] [facility] [address] [place], [place] [id number] documented as of this encounter Procedures Procedure Name Priority Date/Time Associated Diagnosis Comments US OB BPP W NON-STRESS 08/27/2023 12:51 PM EDT documented in this encounter Results * US OB BPP W NON-STRESS (08/27/2023 12:51 PM EDT) Anatomical Region Laterality Modality Other 08/27/2023 12:5 1 PM EDT Narrative 08/27/2023 12:53 [place] [address] Ultrasound Report Signed Patient: TESS CALVERT MR#: [id number] : 1995 Acct:[id number] Age/Sex: 27 / F ADM Date: 08/27/23 Loc: US Attending Dr: Porsha Conway D.O. Ordering Physician: Porsha Conway D.O. Date of Service: 08/27/23 Procedure(s): US OB BPP w non-stress Accession Number(s): [id number] cc: Porsha Conway D.O.; Aleksey Bell M.D. [place] [id number] Patient Name: TESS CALVERT MRN: [id number] date: 1995 Sex: F Assigned Patient Location: [facility] Current Patient Location: Accession/Order Number: [id number] Exam Date: 08/27/2023 11:10 Report Date: 08/27/2023 12:51 At the request of: PORSHA CONWAY Procedure: US OB BPP w non-stress EXAMINATION: US OB BPP w non-stress HISTORY:Decreased movements in second trimester O36.8120 COMPARISON: Ultrasound OB biophysical 08/19/2023 TECHNIQUE: Ultrasound biophysical profile was performed in the radiology department. BREATHING MOVEMENTS: 2 GROSS BODY MOVEMENTS: 2 TONE: 2 QUALITATIVE AMNIOTIC FLUID VOLUME: 2 PRESENTATION: CEPHALIC HEART RATE: 154.29 bpm AMNIOTIC FLUID VOLUME: 17.25 cm GESTATIONAL AGE: 89 Day US/US OB BPP w non-stress IMPRESSION: Total biophysical profile score: 8 Electronically authenticated by: SEBLE BEATTY Date: 08/27/2023 12:51 Dictated By: Seble Beatty M.D. Signed By: 08/27/23 1253 DD/ 1251 TD/TT: Spa Manager/Esthetician: Procedure Note Radiology, Radiologist, - 08/27/2023 [place] [address] Ultrasound Report Signed Patient: TESS CALVERT AMR#: [id number] : 1995Acct:[id number] Age/Sex: 27 / FADM Date: 08/27/23 Loc: US Attending Dr: Porsha Conway D.O. Ordering Physician: Porsha Conway D.O. Date of Service: 08/27/23 Procedure(s): US OB BPP w non-stress Accession Number(s): [id number] cc: Porsha Conway D.O.; Aleksey Bell M.D. [place] [address] Patient Name: TESS CALVERT MRN: [facility]:[id number] date: 1995 Sex: F Assigned Patient Location: [facility] Current Patient Location: Accession/Order Number: [id number] Exam Date: 08/27/2023 11:10 Report Date: 08/27/2023 12:51 At the request of: PROSHA CONWAY Procedure: US OB BPP w non-stress EXAMINATION: US OB BPP w non-stress HISTORY:Decreased movements in second trimester O36.8120 COMPARISON: Ultrasound OB biophysical 08/19/2023 TECHNIQUE: Ultrasound biophysical profile was performed in the radiology department. BREATHING MOVEMENTS: 2 GROSS BODY MOVEMENTS: 2 TONE: 2 QUALITATIVE AMNIOTIC FLUID VOLUME: 2 PRESENTATION: CEPHALIC HEART RATE: 154.29 bpm AMNIOTIC FLUID VOLUME: 17.25 cm GESTATIONAL AGE: 89 Day US/US OB BPP w non-stress IMPRESSION: Total biophysical profile score: 8 Electronically authenticated by: SEBLE BEATTY Date: 08/27/2023 12:51 Dictated By: Seble Beatty M.D. Signed By:08/27/23 1253 DD/ 1251 TD/TT: Spa Manager/Esthetician: us Porsha Mclaino DO [facility] Final Result documented in this encounter Visit Diagnoses Not on filedocumented in this encounter Care Teams Cart[employer] And Can Supply Supervisor Relationship Specialty Start Date End Date Aleksey Bell MD [address] [place] [address] PCP - General 03/13/23 Aleksey Bell MD [address] [place] [address] Family Medicine 03/13/23 documented as of this encounter
--- OUTSIDE RECORDS SUMMARY | 2024-12-14 10:39 | XMS_ITS | Clinical Summary ---
Author Organization [facility] Address [address] [place] [address] Care Team Providers Care Funeral Home Attendant Name Role Phone Aleksey Bell MD Primary Care Provider [phone] Aleksey Bell MD Unavailable [phone] Allergies Active Allergy Reactions Criticality Noted Date Comments Metformin 05/21/2024 Medications True Metrix Blood Glucose Test test strip 1 each by Other route if needed 4 Active Insulin Disposable Pump (Omnipod 5 G6 Pod, Gen 5,) misc Take 1 each by mouth in the morning. 4 Active lamoTRIgine (LaMICtal) 100 MG tablet Take 2 tablets by mouth in the morning. Active pantoprazole (ProtoNix) 40 MG EC tablet Take 40 mg by mouth in the morning. Active Continuous Blood Gluc Transmit (Dexcom G6 transmitter) misc Inject 1 each under the skin if needed (as needed) 4 Active desvenlafaxine (Pristiq) 100 MG 24 hr tablet Take 100 mg by mouth in the morning. Do not crush, chew, or split.. Active Continuous Glucose Sensor (Dexcom G6 Sensor) misc CHANGE SENSOR EVERY 10 DAYS 4 Active insulin lispro (HumaLOG) 100 UNIT/ML injection Inject 48 Units under the skin in the morning and 48 Units at noon and 48 Units in the evening. Inject with meals. U-200 NOW verses the 100. 4 Active BD Pen Needle Naima 2nd Gen 32G X 4 MM misc USE A NEW NEEDLE WITH EACH INJECTION 4 Active Accu-Chek Softclix Lancets lancets 4 Active Lancets misc 1 each by Other route in the morning and 1 each at noon and 1 each in the evening and 1 each before bedtime. 4 Active metoprolol tartrate (Lopressor) 50 MG tablet TAKE 1 TABLET BY MOUTH TWICE A DAY WITH FOOD FOR 30 DAYS 4 Active SEROquel 25 MG tablet Active lamoTRIgine (LaMICtal) 100 MG tablet Take 100 mg by mouth Daily Active Dulaglutide (Trulicity) 3 MG/0.5ML solution auto-injector Inject 3 mg under the skin Daily Active pantoprazole (ProtoNix) 40 MG EC tablet Take 40 mg by mouth in the morning. Take before meals. Do not crush, chew, or split.. Active insulin lispro (HumaLOG) 100 UNIT/ML patient supplied pump Inject under the skin continuously Active insulin lispro (HumaLOG Jeronimo KwikPen) 100 UNIT/ML injection Inject 10 Units under the skin in the morning and 10 Units at noon and 10 Units in the evening. Inject with meals. Active Hospital, Clinic, or Other Facility Administered Medication Ordered Dose Route Frequency Start Date End Date Status Levonorgestrel intrauterine device 52 mgIndications:Encounter for insertion of Mirena IUD,Encounter for insertion of intrauterine contraceptive device (IUD) 52 mg IU Continuous 11/26/2023 9 Active Active Problems Problem Noted Date Diagnosed Date Type 2 diabetes mellitus with hyperglycemia 05/08 Vitamin D deficiency 05/21/2024 FDC (current) use of insulin 05/21/2024 Presence of insulin pump (external) (internal) 0 05/21/2024 Encounters Date Type Department Care Team Description 12/07/2024 Abstract [facility] [address] [place] [address] Ashley Quintanilla MA 11/29/2024 Telephone [facility] [address] [place] [phone] Mario Conway DO 11/25/2024 10:30 AM EDT Procedure Visit [facility] [address] [place] [address] Mario Conway DO Pre-op examination; Request for sterilization; Menorrhagia with regular cycle; Abnormal uterine bleeding (AUB); Pelvic pain 11/25/2024 External Result Encounter [facility] External Department Unsolicited Mario Conway, 10/21/2024 2:30 PM EDT [place] [phone] Pelvic pain in female 10/20/2024 3:10 PM [place] [address] Mario Conway DO Menorrhagia with regular cycle (Primary Dx); Pelvic pain in female; Intrauterine device surveillance; Exposure to STD 10/20/2024 External Result Encounter [facility] External Department Unsolicited Mario Conway DO 10/20/2024 Bamboo flowsheet [facility] [address] [place] [phone] Mario Conway DO from Last 3 Months Family History Medical History Relation Name Comments Anxiety disorder Father Kevin Rowan Diabetes Father Kevin Rowan Heart attack Father Kevin Rowan x3 Heart disease Father Kevin Rowan Hypertension Father Kevin Rowan high blood pressure Father Kevin Rowan Diabetes Mother Idaliadavida Escobar Heart disease Mother Idaliadavida Escobar Hypertension Mother Idaliadavida Escobar Diabetes Sister 3 Relation Name Status Comments Father Kevin Rowan Alive Mother Idalia Escobar Alive Sister 1 Alive Sister 2 Alive Sister 3 Alive Social History Tobacco Use Types Packs/Day Years Used Date Smoking Tobacco: Never Smokeless Tobacco: Never Tobacco Cessation:Counseling Given: Not Answered Alcohol Use Standard Drinks/Week Comments Never 0 (1 standard drink = 0.6 oz pur e alcohol) Comments No Sex and Gender Information Value Date Recorded Sex Assigned at Female 12/08/2024 8:50 AM EDT Legal Sex Female 8:50 AM EDT Gender Identity Female 12/08/2024 8:50 AM EDT Sexual Orientation Not on file Last Filed Vital Signs Vital Sign Reading Time Taken Comments Blood Pressure 136/82 11/25/2024 10:35 AM EDT Pulse 97 04/01/2023 11:25 AM EST Temperature 36.4 C (97.6 F) 08/26/2023 7:59 AM EDT Respiratory Rate 18 04/01/2023 11:25 AM EST Oxygen Saturation 97% 04/01/2023 11:25 AM EST Inhaled Oxygen Concentration - - Weight 112 kg (247 lb 4 oz) 11/25/2024 10:35 AM EDT Height 152.4 cm (5') 10/20/2024 3:22 PM EDT Body Mass Index 48.29 10/20/2024 3:22 PM EDT Plan of Treatment Upcoming Encounters Date Type Department Care Team (Late st Contact Info) Description 01/06/2025 11:20 AM EDT Office Visit [facility] O[facility] [address] [facility] [place] [phone] Shwetha Walton PA [address] [facility] [place] [address] Procedures Procedure Name Priority Date/Time Associated Diagnosis Comments ENDOMETRIAL BIOPSY Routine 11/25/2024 11 :20 AM EDT Pre-op examination Request for sterilization Menorrhagia with regular cycle Abnormal uterine bleeding (AUB) Pelvic pain POCT , URINE Routine 11/25/2024 10:41 AM EDT Pre-op examination PATHOLOGY REQUEST FOR LAB SANDY Routine 11/25/2024 10:28 AM EDT US PELVIC COMPLETE W/ TV Routine 10/21/2024 2:51 PM EDT Pelvic pain in female POCT , URINE Routine 10/20/2024 4:37 PM EDT Pelvic pain in female RECURRENT VAGINITIS (HTRX) Routine 10/20/2024 4:25 PM EDT POCT URINALYSIS DIPSTICK Routine 10/20/2024 3:25 PM EDT Pelvic pain in female from Last 3 Months Results * Endometrial biopsy (11/25/2024 11:20 AM EDT) Narrative Sylvia Murillo LPN - 11/25/2024 11:20 AM EDT Sylvia Murillo LPN 11/25/2024 12:02 PM Endometrial [...] collected: specimen collected and sent to pathology us Mario Zoraida DO IN CLINIC/BEDSIDE ORDERABLES Fin al Result * POCT , urine manually resulted (11/25/2024 10:41 AM EDT) Only the most recent of2 resultswithin the time period is included. Preg Test, Ur Negative Negative Urine 11/25/2024 10:4 1 AM EDT us Mario Zoraida DO POINT OF CARE TEST ENTER/EDIT OR DERABLES Final Result * PATHOLOGY REQUEST FOR LAB SANDY (11/25/2024 10:28 AM EDT) PATHOLOGY REQUEST FOR LAB SANDY 12/07/2024 8:07 AM EDT [facility] Comment:See report. Scanned copy available in EMR. Other Topography unknown / Unknown 11/25/2024 10:28 AM EDT 11/26/2024 1:02 PM EDT us Maroi Zoraida DO LAB BLOOD ORDERABLES Final Resul t [facility] [address] [place] [address], [facility] [address] [place] [address] * US Pelvis w/ TV (10/21/2024 2:51 PM EDT) Anatomical Region Laterality Modality Pelvis Ultrasound 10/25/2024 2:21 PM EDT Impressions 10/25/2024 3:59 PM EDT 1. Appropriate positioned intrauterine device, small amount of endocervical fluid. 2. Follicular ovaries. TRANSCRIBED BY: ELECTRONICALLY SIGNED BY: Sushant Bryant MD Narrative 10/25/2024 3:59 PM EDT FINDINGS: Uterus 8.7 x 3.6 x 4.8 cm Endometrium 6 mm (IUD) Right Ovary 3.8 x 2.6 x 3.8 cm Left Ovary 3.8 x 2.5 x 2.3 cm The uterus is normal in size and orientation. No worrisome mass lesions are seen. Endometrium appears unremarkable.(IUD) . Small amount of endocervical fluid. Normal ovarian size, no adnexal mass. Multiple several millimeter bilateral follicles. Procedure Note Sushant Bryant MD - 10/25/2024 FINDINGS: Uterus 8.7 x 3.6 x 4.8 cm Endometrium 6 mm (IUD) Right Ovary 3.8 x 2.6 x 3.8 cm Left Ovary 3.8 x 2.5 x 2.3 cm The uterus is normal in size and orientation. No worrisome mass lesionsare seen. Endometrium appears unremarkable.(IUD) . Small amount ofendocervical fluid. Normal ovarian size, no adnexal mass. Multipleseveral millimeter bilateral follicles. IMPRESSION: 1. Appropriate positioned intrauterine device, small amount ofendocervical fluid. 2. Follicular ovaries. TRANSCRIBED BY: ELECTRONICALLY SIGNED BY: Sushant Bryant MD us Mario Zoraida DO [facility] US PROCEDURES Final Result * RECURRENT VAGINITIS (HTRX) (10/20/2024 4:25 PM EDT) ATOPOBIUM VAGINAE 0 19.961 - 24.689 ppm 10/22/2024 7:27 AM EDT [facility] ATOPOBIUM VAGINAE Not Detected 19.961 - 24.689 ppm 10/22/2024 7:27 AM EDT [facility] BVAB 2,3 (BACTERIAL VAGINOSIS ASSOCIATED BACTERIA 2, 3); MOBILUNCUS SPP 0 19.961 - 24.689 ppm 10/22/2024 7:27 AM EDT [facility] BVAB 2,3 (BACTERIAL VAGINOSIS ASSOCIATED BACTERIA 2, 3); MOBILUNCUS SPP Not Detected 19.961 - 24.689 ppm 10/22/2024 7:27 AM EDT [facility] CURRY ALBICANS, PARAPSILOSIS, TROPICALIS 0 23.000 - 30.347 ppm 10/22/2024 7:27 AM EDT [facility] CURRY ALBICANS, PARAPSILOSIS, TROPICALIS Not Detected 23.000 - 30.347 ppm 10/22/2024 7:27 AM EDT [facility] CURRY GLABRATA 0 23.000 - 31.618 ppm 10/22/2024 7:27 AM EDT [facility] CURRY GLABRATA Not Detected 23.000 - 31.618 ppm 10/22/2024 7:27 AM EDT [facility] CURRY KRUSEI 0 23.000 - 30.873 ppm 10/22/2024 7:27 AM EDT [facility] CURRY KRUSEI Not Detected 23.000 - 30.873 ppm 10/22/2024 7:27 AM EDT [facility] CHLAMYDIA TRACHOMATIS 0 23.000 - 31.586 ppm 10/22/2024 7:27 AM EDT [facility] CHLAMYDIA TRACHOMATIS Not Detected 23.000 - 31.586 ppm 10/22/2024 7:27 AM EDT [facility] GARDNERELLA VAGINALIS 0 19.961 - 24.689 ppm 10/22/2024 7:27 AM EDT [facility] GARDNERELLA VAGINALIS Not Detected 19.961 - 24.689 ppm 10/22/2024 7:27 AM EDT [facility] MEGASPHAERA (TYPES 1, 2) 0 19.961 - 24.689 ppm 10/22/2024 7:27 AM EDT [facility] MEGASPHAERA (TYPES 1, 2) Not Detected 19.961 - 24.689 ppm 10/22/2024 7:27 AM EDT [facility] NEISSERIA GONORRHOEAE 0 23.000 - 32.587 ppm 10/22/2024 7:27 AM EDT [facility] NEISSERIA GONORRHOEAE Not Detected 23.000 - 32.587 ppm 10/22/2024 7:27 AM EDT [facility] TRICHOMONAS VAGINALIS 0 23.000 - 31.995 ppm 10/22/2024 7:27 AM EDT [facility] TRICHOMONAS VAGINALIS Not Detected 23.000 - 31.995 ppm 10/22/2024 7:27 AM EDT [facility] MYCOPLASMA GENITALIUM 0 19.961 - 24.689 ppm 10/22/2024 7:27 AM EDT [facility] MYCOPLASMA GENITALIUM Not Detected 19.961 - 24.689 ppm 10/22/2024 7:27 AM EDT [facility] Tissue 10/20/2024 4:25 PM EDT 10/22/2024 2:18 AM EDT us Mario Conway DO LAB BLOOD ORDERABLES Final Resul t [facility] [address] [address] * (ABNORMAL) POCT urinalysis dipstick manually resulted (10/20/2024 3:25 PM EDT) Color, UA Yellow Clarity, UA Clear Glucose, UA 3+ Negative - 2000(110) ++++ mg/dL Bilirubin, UA Negative Negative - 4(70) +++ mg/dL Ketones, UA Positive Negative - 160(16) ++++ mg/dL Spec Grav, UA 1.015 1 - 1.03 Blood, UA Negative Negative - 50 Jose/mcL pH, UA 6.0 5 - 9 Protein, UA Negative Negative - 2000(20) ++++ mg/dL Urobilinogen, UA 1.0 0.2 - 12 mg/dL Leukocytes, UA Negative Negative - 500+++ Huey/mcL Nitrite, UA Negative Negative - Positive Urine 10/20/2024 3:25 PM EDT Mario Conway DO POINT OF CARE TEST ENTER/EDIT OR DERABLES Final Result from Last 3 Months Insurance [employer] Care Teams Funeral Home Attendant Relationship Specialty Start Date End Date Aleksey Bell MD [address] [place] [address] PCP - General 03/13/23 Aleksey Bell MD [address] [place] [address] Family Medicine 03/13/23
--- OUTSIDE RECORDS SUMMARY | 2024-12-14 10:39 | XMS_ITS | Encounter Summary ---
Author Organization [facility] Address [address] [facility] [place] [address] Care Team Providers Care Plate Former Name Role Phone Aleksey Bell MD Primary Care Provider [phone] Aleksey Bell MD Unavailable [phone] Encounter Details Date Type Department Care Team (Late Contact Info) Description 06/23/2023 Abstract N[facility] GREER [address] [place] [address] [place] [phone] Caro Nelson MA [address] [address] Social History Tobacco Use Types Packs/Day Years [...] [address] [place] [phone] Shwetha Walton PA [address] [place], [place] [phone] documented as of this encounter Visit Diagnoses Not on filedocumented in this encounter Care Teams Plate Former Relationship Specialty Start Date End Date Aleksey Bell MD [address] [place] [address] PCP - General 03/13/23 Aleksey Bell MD [address] [place] [address] Family Medicine 03/13/23 documented as of this encounter
--- OUTSIDE RECORDS SUMMARY | 2024-12-14 10:39 | XMS_ITS | Encounter Summary ---
Author Organization [facility] Address [address] [facility] [place] [address] Care Team Providers Care Computer Help Desk Specialist Name Role Phone Aleksey Bell MD Primary Care Provider [phone] Aleksey Bell MD Unavailable [phone] Encounter Details Date Type Department Care Team (Late Contact Info) Description 09/09/2023 Clinisync Result Encounter NOMS External Department Unsolicited Porsha Conway DO [address] Klein, [facility] Social History Tobacco Use Types Packs/Day Years [...] AM EDT Office Visit NOMLynette GREER [address] [place] [phone] Shwetha Walton PA [address] [place] [address] documented as of this encounter Procedures Procedure Name Priority Date/Time Associated Diagnosis Comments TBH CREATININE Routine 09/09/2023 3:31 PM EDT SRMCOH PROTHROMBIN TIME INR W/O COUM Routine 09/09/2023 3:31 PM EDT MHPT FIBRINOGEN Routine 09/09/2023 3:31 PM EDT CCF AST Routine 09/09/2023 3:31 PM EDT [facility] APTT Routine 09/09/2023 3:31 PM EDT CCF ALT Routine 09/09/2023 3:31 PM EDT ALL URIC ACID Routine 09/09/2023 3:31 PM EDT ALL CBC WITH AUTO DIFF Routine 09/09/2023 3:31 PM EDT ALL BUN Routine 09/09/2023 3:31 PM EDT US OB BPP W NON-STRESS 09/09/2023 12:26 PM EDT documented in this encounter Results * (ABNORMAL) MHPT FIBRINOGEN (09/09/2023 3:31 PM EDT) FIBRINOGEN 513(H) 200 - 400 mg/dL [facility] 09/09/2023 3:31 PM EDT 09/09/2023 3:36 PM EDT Narrative CLINISYNC - 09/09/2023 4:34 PM EDT us Porsha Zoraida DO CLINISYNC Final Result CLINISYNC [facility] * CCF APTT (09/09/2023 3:31 PM EDT) PARTIAL THROMBOPLASTIN TIME 23.2 22.3 - 36.2 sec [facility] 09/09/2023 3:31 PM EDT 09/09/2023 3:36 PM EDT Narrative CLINISYNC - 09/09/2023 4:34 PM EDT Porsha Zoraida DO CLINISYNC Final Result [facility] * SRMCOH PROTHROMBIN TIME INR W/O COUM (09/09/2023 3:31 PM EDT) PROTHROMBIN TIME 9.7 9.0 - 11.6 sec TBH TBH INR <0.93 TBH Comment: DESIRED INR: 2.0-3.0 CONDITIONS NOT LISTED BELOW 2.5-3.5 FOR PROSTHETIC HEART VALVE REPLACEMENT 2.5-3.5 RECURRENT THROMBOSIS 09/09/2023 3:31 PM EDT 09/09/2023 3:36 PM EDT Narrative CLINISYNC - 09/09/2023 4:34 PM EDT DRO Biosystemso DO CLINISYNC Final Result Performing Organization Address City/[facility]/ZIP Co de Phone Number [facility] * CCF ALT (09/09/2023 3:31 PM EDT) ALANINE AMINOTRANSFERASE 17 14 - 59 U/L TB 09/09/2023 3:31 PM EDT 09/09/2023 3:36 PM EDT Narrative CLINISYNC - 09/09/2023 3:58 PM EDT DRO Biosystemso DO CLINISYNC Final Result [facility] * (ABNORMAL) CCF AST (09/09/2023 3:31 PM EDT) ASPARTATE AMINO TRANSFERASE 12(L) 15 - 37 U/L TB 09/09/2023 3:31 PM EDT 09/09/2023 3:36 PM EDT Narrative CLINISYNC - 09/09/2023 3:58 PM EDT us Porsha Zoraida DO CLINISYNC Final Result CLINISYNC TB * ALL URIC ACID (09/09/2023 3:31 PM EDT) URIC ACID 4.1 2.6 - 6.0 mg/dL TB 09/09/2023 3:31 PM EDT 09/09/2023 3:36 PM EDT Narrative CLINISYNC - 09/09/2023 3:58 PM EDT Porsha Zoraida DO CLINISYNC Final Result Performing Organization Address [facility] Co de Phone Number CLINISYNC TB * TBH CREATININE (09/09/2023 3:31 PM EDT) CREATININE 0.55 0.55 - 1.02 mg/dL TB TBH EGFR-AF MONTENEGRIN >60 >=60 TBH TBH EGFR-NON AF MONTENEGRIN >60 >=60 TBH 09/09/2023 3:31 PM EDT 09/09/2023 3:36 PM EDT Narrative CLINISYNC - 09/09/2023 3:58 PM EDT Porsha Mclaino DO CLINISYNC Final Result CLINISYNC TB * ALL BUN (09/09/2023 3:31 PM EDT) BLOOD UREA NITROGEN 7.0 7.0 - 18.0 mg/dL TB 09/09/2023 3:31 PM EDT 09/09/2023 3:36 PM EDT Narrative CLINISYNC - 09/09/2023 3:58 PM EDT Porsha Zoraida DO CLINISYNC Final Result CLINISYNC [facility] * (ABNORMAL) ALL CBC WITH AUTO DIFF (09/09/2023 3:31 PM EDT) [facility] TBH WBC 10.9 4.0 - 11.0 10 3/uL TBH TBH RBC 3.79(L) 4.20 - 5.40 10 6/uL TBH TBH HGB 10.3(L) 12.0 - 16.0 g/dL TBH TBH HCT 31.6(L) 36.0 - 48.0 % TBH TBH MCV 83.4 81.0 - 99.0 fL TBH TBH MCH 27.2 26.7 - 34.0 pg TBH TBH MCHC 32.6 29.9 - 35.2 g/dL TBH TBH RDW 13.7 11.0 - 15.0 % TBH TBH PLT 292 150 - 450 10 3/uL TBH TBH MPV 10.6 9.5 - 13.5 fL TBH NEUTROPHILS PERCENT AUTO 69.8 43.0 - 75.0 % TBH LYMPHOCYTES PERCENT AUTO 20.7 20.5 - 60.0 % TBH MONOCYTES PERCENT AUTO 7.5 1.7 - 12.0 % TBH TBH EO % 0.9 0.9 - 7.0 % TBH BASOPHILS PERCENT AUTO 0.3 0.2 - 2.0 % TBH IMMATURE GRANULOCYTES PCT AUTO 0.8(H) 0.0 - 0.5 % TBH NEUTROPHILS ABSOLUTE AUTO 7.6(H) 1.4 - 6.5 10 3/uL TBH LYMPHOCYTES ABSOLUTE AUTO 2.3 1.2 - 3.8 10 3/uL TBH MONOCYTES ABSOLUTE AUTO 0.8 0.3 - 0.8 10 3/uL TBH TBH EO # 0.1 0.0 - 0.7 10 3/uL TBH BASOPHILS ABSOLUTE AUTO 0.0 0.0 - 0.1 10 3/uL TBH IMMATURE GRANULOCYTES ABS AUTO 0.09(H) 0.00 - 0.03 10 3/uL TBH 09/09/2023 3:31 PM EDT 09/09/2023 3:36 PM EDT Narrative CLINISYNC - 09/09/2023 3:42 PM EDT us Porsha Conway DO CLINFELIICTAS Final Result CLINISYNC TB * US OB BPP W NON-STRESS (09/09/2023 12:26 PM EDT) Anatomical Region Laterality Modality Other 09/09/2023 12:2 6 PM EDT Narrative 09/09/2023 12:29 [place] [address] Ultrasound Report Signed Patient: TESS CALVERT MR#: [id number] : 1995 Acct:[id number] Age/Sex: 27 / F ADM Date: 09/09/23 Loc: [facility] 250-[address]: Porsha Conway D.O. Ordering Physician: Porsha Conway D.O. Date of Service: 09/09/23 Procedure(s): US OB BPP w non-stress Accession Number(s): [id number] cc: Porsha Conway D.O.; Aleksey Bell M.D. [place] [address] Patient Name: TESS CALVERT MRN: [id number] date: 1995 Sex: F Assigned Patient Location: ED.MAIN Current Patient Location: [facility] Accession/Order Number: [id number] Exam Date: 09/09/2023 11:15 Report Date: 09/09/2023 12:26 At the request of: PORSHA CONWAY Procedure: US OB BPP w non-stress EXAMINATION: US OB BPP w non-stress HISTORY:Decreased movement COMPARISON: Ultrasound OB biophysical 09/03/2023 TECHNIQUE: Ultrasound biophysical profile was performed in the radiology department. BREATHING MOVEMENTS: 2 GROSS BODY MOVEMENTS: 2 TONE: 2 QUALITATIVE AMNIOTIC FLUID VOLUME: 2 PRESENTATION: CEPHALIC HEART RATE: 153.41 bpm AMNIOTIC FLUID VOLUME: 28.73 cm GESTATIONAL AGE: 89 Day US/US OB BPP w non-stress IMPRESSION: Total biophysical profile score: 8 Electronically authenticated by: SEBLE BEATTY Date: 09/09/2023 12:26 Dictated By: Seble Beatty M.D. Signed By: 09/09/23 1229 DD/ 1226 TD/TT: Learning Support Services Director: Procedure Note Radiology, Radiologist, - 09/09/2023 [place] [address] Ultrasound Report Signed Patient: TESS CALVERT AMR#: [id number] : 1995Acct:[id number] Age/Sex: 27 / FADM Date: 09/09/23 Loc: [facility] [address]: Porsha Conway D.O. Ordering Physician: Porsha Conway D.O. Date of Service: 09/09/23 Procedure(s): US OB BPP w non-stress Accession Number(s): [id number] cc: Porsha Conway D.O.; Aleksey Bell M.D. [place] [address] Patient Name: TESS CALVERT MRN: [facility]:[id number] date: 1995 Sex: F Assigned Patient Location: ED.MAIN Current Patient Location: [facility] Accession/Order Number: [id number] Exam Date: 09/09/2023 11:15 Report Date: 09/09/2023 12:26 At the request of: PORSHA CONWAY Procedure: US OB BPP w non-stress EXAMINATION: US OB BPP w non-stress HISTORY:Decreased movement COMPARISON: Ultrasound OB biophysical 09/03/2023 TECHNIQUE: Ultrasound biophysical profile was performed in the radiology department. BREATHING MOVEMENTS: 2 GROSS BODY MOVEMENTS: 2 TONE: 2 QUALITATIVE AMNIOTIC FLUID VOLUME: 2 PRESENTATION: CEPHALIC HEART RATE: 153.41 bpm AMNIOTIC FLUID VOLUME: 28.73 cm GESTATIONAL AGE: 89 Day US/US OB BPP w non-stress IMPRESSION: Total biophysical profile score: 8 Electronically authenticated by: SEBLE BEATTY Date: 09/09/2023 12:26 Dictated By: Seble Beatty M.D. Signed By:09/09/23 1229 DD/ 1226 TD/TT: Learning Support Services Director: us Porsha Mclaino DO CLINISYNC IMAGING Final Result documented in this encounter Visit Diagnoses Not on filedocumented in this encounter Care Teams Computer Help Desk Specialist Relationship Specialty Start Date End Date Aleksey Bell MD [address] [place] [address] PCP - General 03/13/23 Aleksey Bell MD [address] [place] [address] Family Medicine 03/13/23 documented as of this encounter
--- OUTSIDE RECORDS SUMMARY | 2024-12-14 10:39 | XMS_ITS | Encounter Summary ---
Author Organization [facility] Address [address] [facility] [place] [address] Care Team Providers Care Systems Software Specialist Name Role Phone Aleksey Bell MD Primary Care Provider [phone] Aleksey Bell MD Unavailable [phone] Encounter Details Date Type Department Care Team (Late Contact Info) Description 10/09/2023 Abstract NOMLynette GREER [address] [place] [phone] Mario Conway DO [address] [facility] [address] Fabiana Klein, [facility]11 Social History [...] [address] [place] [address] Shwetha Walton PA [address] [facility] [address] [place], [place] [phone] documented as of this encounter Visit Diagnoses Not on filedocumented in this encounter Care Teams Systems Software Specialist Relationship Specialty Start Date End Date Aleksey Bell MD [address] [place] [address] PCP - General 03/13/23 Aleksey Bell MD [address] [place] [address] [phone] Family Medicine 03/13/23 documented as of this encounter
--- OUTSIDE RECORDS SUMMARY | 2024-12-14 10:39 | XMS_ITS | Encounter Summary ---
Author Organization [employer] tem Address [id number] [address] [place] [address] Care Team Providers Care Extrusion Machine Operator Name Role Phone Unavailable Primary Care Provider Unavailabl e Encounter Details Date Type Department Care Team (Late Contact Info) Description 04/23/2023 Orders Only Maternal- Medicine at [facility] [address] [place] [address] Mario Conway, DO [address] [facility] [place] [address] Social History Tobacco Use Types Packs/Day Years Used Date Smoking Tobacco: Never Assessed Childcare Answer Date Recorded Childcare Unknown 08/17/2018 Employment Answer Date Recorded Employment Unknown 08/17/2018 Comments Yes Sex and Gender Information Value Date Recorded Sex Assigned at Female 02/27/2023 5:51 PM EST Legal Sex Female 3:23 PM EDT Gender Identity Female 02/27/2023 5:51 PM EST Sexual Orientation Not on file documented as of this encounter Plan of Treatment Upcoming Encounters Date Type Department Care Team (Late Contact Info) Description 01/03/2025 2:15 PM EDT [facility] [address] [place] [address] Shira Shin, SOAP MIXER-CHEMICAL ETCH OPERATOR [address] [facility] , [address] [place] [address] documented as of this encounter Procedures Procedure Name Priority Date/Time Associated Diagnosis Comments FREE CELL DNA (NON-[facility] SEND OUT) Routine 04/10/2023 2:17 PM EST US PREG LMTD 1 OR MORE FETUS Routine 03/14/2023 2:20 PM EST documented in this encounter Results * Free Cell DNA (04/10/2023 2:17 PM EST) us Mario Conway DO LAB BLOOD ORDERABLES Final Resu lt MANUALLY TRANSCRIBED RESULTS * Ultrasound limited 1 or more fetus (03/14/2023 2:20 PM EST) Anatomical Region Laterality Modality OB-LINK MACHINE OPERATOR Ultrasound us Mario R Zoraida DO IMG US ORDERABLES Final Result documented in this encounter Visit Diagnoses Not on filedocumented in this encounter
--- OUTSIDE RECORDS SUMMARY | 2024-12-14 10:39 | XMS_ITS | Encounter Summary ---
Author Organization [facility] Address [address] [place] [address] Care Team Providers Care Cod Clerk Name Role Phone Aleksey Bell MD Primary Care Provider [phone] Aleksey Bell MD Unavailable [phone] Encounter Details Date Type Department Care Team (Late st Contact Info) Description 11/29/2024 Telephone [facility] [address] [place] [address] Mario Conway DO [address] [place] [phone] Social History Tobacco Use Types Packs/Day Years [...] on file documented as of this encounter Miscellaneous Notes * Telephone Encounter - Blanca Elkins LPN - 11/29/2024 3:12 PM EDT Jai. My name is Bruce. I am currently calling from [facility]. I am I am calling in regards to a mutual patient that we are just trying to get basically a patient demographic sheet just because we do not have anything on this patient, but they came in for a specimen dropfor our lab whenever you can. Whenever you can please go ahead and fix that over to [phone]. Thank you. Called to see What specimen patient brought in to drop off as appears we do not have any outstanding orders for patient. Called patient to see if she did take anything to them and if she provided herinformation to them. Patient was called and asked if she had dropped anything off to them in regards to a specimen and she states that she has not and not sure if this was from her Biopsy, reassured we send this information with that but will await their call to see what they are needing. PVU documented in this encounter Plan of Treatment Upcoming Encounters Date Type Department Care Team (Late st Contact Info) Description 01/06/2025 11:20 AM EDT Office Visit [facility] GREER [address] [facility] [place] [address] Shwetha Walton PA [address] [place] [address] documented as of this encounter Visit Diagnoses Not on filedocumented in this encounter Care Teams Cod Clerk Relationship Specialty Start Date End Date Aleksey Bell MD [address] [facility] [place] [address] PCP - General 03/13/23 Aleksey Bell MD [address] [facility] [place] [address] Family Medicine 03/13/23 documented as of this encounter
--- OUTSIDE RECORDS SUMMARY | 2024-12-14 10:39 | XMS_ITS | Encounter Summary ---
Author Organization [facility] tem Address [id number] [address] [place] [address] Care Team Providers Care Aerial Applicator Pilot Name Role Phone Unavailable Primary Care Provider Unavailabl e Encounter Details Date Type Department Care Team (Late st Contact Info) Description 09/24/2023 Orders Only Maternal- Medicine at [facility] [address] [place] [phone] Mohit España MD [address] [facility] [address] [place] [address] Social History Tobacco Use Types Packs/Day Years Used Date Smoking Tobacco: Never Passive Smoke Exposure: Never Smokeless Tobacco: Never Alcohol Use Standard Drinks/Week Comments Not Currently 0 (1 standard drink = 0.6 oz pur e alcohol) Childcare Answer Date Recorded Childcare Unknown 08/17/2018 Employment Answer Date Recorded Employment Unknown 08/17/2018 Hunger Screening Answer Date Recorded Within the past 12 months we worried whether our food would run out before we got money to buy more. Never True 08/13/2023 Within the past 12 months th e food we bought just didn't last and we didn't have money to get more. Never True 08/13/2023 Comments Yes Sex and Gender Information Value Date Recorded Sex Assigned at Female 02/27/2023 5:51 PM EST Legal Sex Female 3:23 PM EDT Gender Identity Female 02/27/2023 5:51 PM EST Sexual Orientation Not on file documented as of this encounter Functional Status documented as of this encounter Plan of Treatment Upcoming Encounters Date Type Department Care Team (Late st Contact Info) Description 01/03/2025 2:15 PM EDT Office Visit [facility] [address] [place] [address] Shira Shin, REGULATORY SERVICES CONSULTANT-COMMERCIAL RELIEF DRIVER [address] [place] [address] documented as of this encounter Visit Diagnoses Not on filedocumented in this encounter
--- OUTSIDE RECORDS SUMMARY | 2024-12-14 10:39 | XMS_ITS | Encounter Summary ---
Author Organization [facility] Address [address] [facility] [place] [address] Care Team Providers Care Director Of Physiotherapy Services Name Role Phone Aleksey Bell MD Primary Care Provider [phone] Aleksey Bell MD Unavailable [phone] Encounter Details Date Type Department Care Team (Late Contact Info) Description 09/18/2023 Abstract NOMLynette GREER [address] [facility] [place] [phone] Mario Conway DO [address] [facility] [address] Fabiana Klein, [facility]11 Social History Tobacco Use Types Packs/Day [...] EDT Office Visit NOMLynette GREER [address] [facility] [place] [address] Shwetha Walton PA [address] [facility] [address] [place], [place] [phone] documented as of this encounter Visit Diagnoses Not on filedocumented in this encounter Care Teams Director Of Physiotherapy Services Relationship Specialty Start Date End Date Aleksey Bell MD [address] [place] [address] PCP - General 03/13/23 Aleksey Bell MD [address] [place] [address] [phone]- Family Medicine 03/13/23 documented as of this encounter
--- OUTSIDE RECORDS SUMMARY | 2024-12-14 10:39 | XMS_ITS | Encounter Summary ---
Author Organization [facility] Address [address] [facility] [place] [address] Care Team Providers Care Human Anatomy Teacher Name Role Phone Aleksey Bell MD Primary Care Provider [phone] Aleksey Bell MD Unavailable [phone] Encounter Details Date Type Department Care Team (Late Contact Info) Description 09/29/2023 Abstract NOMLynette GREER [address] [place] [phone] Judit Sarabia LPN [address] [facility] [place] [phone] Social History Tobacco Use Types Packs/Day Years [...] AM EDT Office Visit NOMLynette GREER [address] [place] [place] [address] Shwetha Walton PA [address] [place] [address] documented as of this encounter Visit Diagnoses Not on filedocumented in this encounter Care Teams Human Anatomy Teacher Relationship Specialty Start Date End Date Aleksey Bell MD [address] [place] [address] PCP - General 03/13/23 Aleksey Bell MD [address] [place] [address] [phone] Family Medicine 03/13/23 documented as of this encounter
--- OUTSIDE RECORDS SUMMARY | 2024-12-14 10:43 | XMS_ITS | CCD ---
Author Organization [facility] Care Team Providers Care Silver Steward Name Role Phone Aleksey Laureano MD Primary Care Provider [phone] Aleksey Laureano Primary Care Physician Aleksey Laureano MD Primary Care Provider [phone] ALEKSEY LAUREANO Admitting Unavailable ALEKSEY LAUREANO Primary [...] Unavailable HOY ., DR OAKES Admitting Unavailable BELLINGHAM, DR MAY Silverman Consulting Unavailable CRYSTAL PENG Consulting Unavailable COLLINSY ., DR OAKES Primary Care Unavailable CRYSTAL PENG Attending Unavailable CRYSTAL PENG Admitting Unavailable Aleksey Laureano MD Primary Care Provider [phone] Angelica Navarrete Attending Unavailable Tyler Summers Attending [...] Laureano MD, Aleksey Chester Primary Care Provider [phone] MARIO CONWAY Attending Unavailable ZORAIDA, MARIO Referring [...] tablet (5 sources) Opioid Agonist Start: 07-03-2020 Tolstoy 325 mg-5 mg oral tablet 1 tab(s), Oral, q6hr for pain, 8 tab(s), Refill(s) 0 Start Date: 07/03/20 Status: Ordered Quantity: 8.0 Unit: tab(s) Repeat number: 1 Indication: Sciatica, left side blood-glucose sensor (DEXCOM G7 SENSOR) device (3 sources) Start: 07-26-2024 blood-glucose sensor (DEXCOM G7 SENSOR) device Indications: Type 2 diabetes mellitus with hyperglycemia, with long-term current use of insulin ([facility]) 1 each by miscellaneous route every [...] hyperglycemia, with long-term current use of insulin ([facility]) Inject 0.5 mL (0.75 mg total) [...] hyperglycemia, with long-term current use of insulin ([facility]) Inject 55 Units under the skin nightly. For insulin pump failure 15 mL 12 05/31/2024 Active Start: 05-28-2024 End: 05-31-2024 insulin glargine (LANTUS ADDI OSTAR U-100 INSULIN) 100 unit/mL (3 mL) insulin pen Indications: Type 2 diabetes mellitus with hyperglycemia, with long-term current use of insulin ([facility]) Inject 48 Units under the skin nightly. [...] hyperglycemia, with long-term current use of insulin ([facility]) Use up to 150 units per day via insulin pump 70 mL 3 08/12/2024 Active Start: 05-31-2024 End: 08-12-2024 insulin lispro (HumaLOG Kwik Pen Insulin) 200 unit/mL (3 mL) insulin pen Indications: Type 2 diabetes mellitus with hyperglycemia, with long-term current use of insulin ([facility]) Use 5 units for small meal, 10 units per big meal plus sliding scale 2: 50 over 150, max 60 units per meal 50 mL 3 05/31/2024 08/12/2024 Discontinued (Reorder) Start: 01-15-2024 End: 05-31-2024 insulin lispro (HumaLOG Kwik Pen Insulin) 200 unit/mL (3 mL) insulin pen Indications: Type 2 diabetes mellitus with hyperglycemia, with long-term current use of insulin ([facility]) Use up to 100 units per day [...] 2 tablets daily total 200mg. Active levonorgestrel 0.850117 mg/hr intrauterine system (11 sources) Progestin, Progestin-containing [...] hyperglycemia, with long-term current use of insulin ([facility]) 1 Unit by abdominal subcutaneous route [...] hyperglycemia, with long-term current use of insulin ([facility]) 1 Unit by abdominal subcutaneous route once [...] hyperglycemia, with long-term current use of insulin ([facility]) Inject 2.5 mg under the skin every 7 days. 2 mL 1 01/15/2024 05/31/2024 Discontinued Start: 01-15-2024 tirzepatide (M OUNJARO) 2.5 mg/0.5 mL pen injector Indications: Type 2 diabetes mellitus with hyperglycemia, with long-term current use of insulin ([facility]) Inject 2.5 mg under the skin every [...] neoplasm] 04-17-2023 Episodic Other aftercare (1 source) top screw (current) use of insulin; Translations: [snf (current) use of insulin] Onset: 05-31-2024 Episodic [...] RPon 12-07-2024 PATHOLOGY REQUEST FOR LAB SANDY [facility] Comment on above: See report. Scanned copy available in EMR. [facility] Endometrial biopsyon 025 Sylvia Murillo LPN 11/25/2024 [...] collected: specimen collected and sent to pathology [facility] Endometrial biopsyOrdered By : Sylvia Murillo on 11-25-2024 [facility] HCG ( test) Ql (U)O rdered By: Ashley Quintanilla on 11-25-2024 Interpretation and review of laboratory results Normal [facility] Preg Test, Ur Negative Negative [facility] RECURRENT VAGINITIS (HTRX)on 10-22-2024 ATOPOBIUM VAGINAE 0 [facility] ATOPOBIUM VAGINAE Not detected [facility] BVAB 2,3 (BACTERIAL VAGINOSIS ASSOCIATED BACTERIA 2, 3); MOBILUNCUS SPP 0 [facility] BVAB 2,3 (BACTERIAL VAGINOSIS ASSOCIATED BACTERIA 2, 3); MOBILUNCUS SPP Not detected [facility] CURRY ALBICANS, PARAPSILOSIS, TROPICALIS 0 [facility] CURRY ALBICANS, PARAPSILOSIS, TROPICALIS Not detected [facility] CURRY GLABRATA 0 [facility] CURRY GLABRATA Not detected [facility] CURRY KRUSEI 0 [facility] CURRY KRUSEI Not detected [facility] CHLAMYDIA TRACHOMATIS 0 [facility] CHLAMYDIA TRACHOMATIS Not detected [facility] GARDNERELLA VAGINALIS 0 [facility] GARDNERELLA VAGINALIS Not detected [facility] MEGASPHAERA (TYPES 1, 2) 0 [facility] MEGASPHAERA (TYPES 1, 2) Not detected [facility] MYCOPLASMA GENITALIUM 0 [facility] MYCOPLASMA GENITALIUM Not detected [facility] NEISSERIA GONORRHOEAE 0 [facility] NEISSERIA GONORRHOEAE Not detected [facility] TRICHOMONAS VAGINALIS 0 [facility] TRICHOMONAS VAGINALIS Not detected N [facility] US PELVIC COMPLETE W/ TVon 0 10-21-2024 [...] Interpretation and review of laboratory results Normal [facility] Preg Test, Ur Negative Negative [facility] Urinalysis macro (dipstick) panel (U)on 10-20-2024 Bilirubin, UA Negative Negative - 4(70) +++ mg/dL [facility] Blood, UA Negative Negative - 50 Jose/mcL [facility] Clarity, UA Clear [facility] Color, UA Yellow [facility] Glucose, UA 3+ Negative - 2000(110) ++++ mg/dL [facility] Interpretation and review of laboratory results Abnormal [facility] Ketones, UA Positive Negative - 160(16) ++++ mg/dL [facility] Leukocytes, UA Negative Negative - 500+++ Huey/mcL [facility] Nitrite, UA Negative Negative - Positive [facility] pH, UA 6 5 - 9 [facility] Protein, UA Negative Negative - 1999(20) ++++ mg/dL [facility] Spec Grav, UA 1.015 1 - 1.03 [facility] Urobilinogen, UA 1.0 0.2 - 12 mg/dL [facility] POCT Hemoglobin A1con 2024 HbA1c (Bld) [Mass fraction] 10.9 % Abnormal 4 - 7 % [facility] Interpretation and review of laboratory results Abnormal [facility] [address] ED Note-Physicianon 05-30-19 ED Note-Physician ED Note-Physician [...] malfunctioning. She has an appointment with her special agent in charge on Friday to get the pump well-placed. [...] Oneillrosamaria In 3 days 05/31/2024 EDT [address] [id number] Business (1) Additional Instructions: Patient Education Hyperglycemia [...] made to ensure accuracy, however, inadvertently computerized sample card maker mistakes may be present. Appropriate healthcare PPE [...] Tab, 3, Oral, TID Lamictal, Oral, BID Tolstoy 325 mg-5 mg oral tablet, 1 tab(s), [...] 17:03:00) Hct: (more content not included)... Normal [facility] Comment on above: Result Comment: Elec tronically Signed By: Paige Mcginnis DObr\Date and Time Signed: 05/29/24 02:38 EDT B hCG Qualon 05-28-2024 Beta HCG ( test) Ql Negative Normal [facility] Comment on above: Performed By: #### 2 [id number] #### [facility] [address] [place] [address] BMPon 05-28-2024 Anion gap [Moles/Vol] 15 mmol/L Normal 6-16 [facility] Comment on above: Performed By: #### 2 [id number] #### [facility] [address] [place] [address] Calcium [Mass/Vol] 9.0 mg/dL Normal 8.9-11.1 [facility] Comment on above: Performed By: #### 2 [id number] #### [facility] [address] [place] [address] Chloride [Moles/Vol] 102 mmol/L Normal 101-111 [facility] Comment on above: Performed By: #### 2 [id number] #### [facility] [address] [place] [address] CO2 [Moles/Vol] 23 mmol/L Normal 21-31 [facility] Comment on above: Performed By: #### 2 [id number] #### [facility] [address] [place] [address] Creatinine [Mass/Vol] 0.6 mg/dL Normal 0.5-1.3 [facility] Comment on above: Performed By: #### 2 [id number] #### [facility] [address] [place] [address] Glucose [Mass/Vol] 266 mg/dL High 55-199 [facility] Comment on above: Performed By: #### 2 [id number] #### [facility] [address] [place] [address] Potassium [Moles/Vol] 3.8 mmol/L Normal 3.5-5.3 [facility] Comment on above: Performed By: #### 2 302371 #### [facility] [address] [place] [address] Sodium [Moles/Vol] 136 mmol/L Normal 135-145 [facility] Comment on above: Performed By: #### 2 078634 #### [facility] [address] [place] [address] Urea nitrogen [Mass/Vol] 12 mg/dL Normal 5-21 [facility] Comment on above: Performed By: #### 2 [id number] #### [facility] [address] [place] [address] Urea nitrogen/Creatinine [Mass ratio] 20 No Units Normal 10-20 [facility] Comment on above: Performed By: #### 2 [id number] #### [facility] [address] [place] [address] CBC w/ Auto Diffon 5 Anisocytosis Ql (Bld) PRESENT Invalid Interpretation Code [facility] Comment on above: Performed By: #### 2 106207 #### [facility] [address] [place] [address] Basophils/100 WBC (Bld) 0.6 % Normal 0.0-2.0 [facility] Comment on above: Performed By: #### 2 [id number] #### [facility] [address] [place] [address] Basophils/Leukocytes Auto (Bld) [Pure # fraction] 0.0 E9/L Normal 0.0-0.2 [facility] Comment on above: Performed By: #### 2 [id number] #### [facility] [address] [place] [address] Eosinophils (Bld) [#/Vol] 0.0 E9/L Normal 0.0-0.5 [facility] Comment on above: Performed By: #### 2 002807 #### [facility] [address] [place] [address] Eosinophils/100 WBC (Bld) 0.6 % Normal 0.0-8.0 [facility] Comment on above: Performed By: #### 2 436115 #### [facility] [address] [place] [address] Erythrocyte distribution width (RBC) [Ratio] 18.3 % High 10.9-14.2 [facility] Comment on above: Performed By: #### 2 684200 #### [facility] [address] [place] [address] Hematocrit (Bld) [Volume fraction] 40.9 % Normal 34.0-46.0 [facility] Comment on above: Performed By: #### 2 400894 #### [facility] [address] [place] [address] Hemoglobin (Bld) [Mass/Vol] 13.3 g/dL Normal 12.0-16.0 [facility] Comment on above: Performed By: #### 2 789882 #### [facility] [address] [place] [address] Hypochromia Auto Ql (Bld) PRESENT Invalid Interpretation Code [facility] Comment on above: Performed By: #### 2 930790 #### [facility] [address] [place] [address] Lymphocytes (Bld) [#/Vol] 1.3 E9/L Normal 1.0-4.0 [facility] Comment on above: Performed By: #### 2 496546 #### [facility] [address] [place] [address] Lymphocytes/100 WBC (Bld) 14.3 % Normal 14.0-50.0 [facility] Comment on above: Performed By: #### 2 800543 #### [facility] [address] [place] [address] MCH (RBC) [Entitic mass] 23.3 pg Low 27.0-34.0 [facility] Comment on above: Performed By: #### 2 577450 #### [facility] [address] [place] [address] MCHC (RBC) [Mass/Vol] 32.4 g/dL Normal 31.4-36.0 [facility] Comment on above: Performed By: #### 2 487176 #### [facility] [address] [place] [address] MCV (RBC) [Entitic vol] 72.0 fL Low 80.0-100.0 [facility] Comment on above: Performed By: #### 2 541994 #### [facility] [address] [place] [address] Monocytes (Bld) [#/Vol] 0.6 E9/L Normal 0.2-1.0 [facility] Comment on above: Performed By: #### 2 597568 #### [facility] [address] [place] [address] Neutrophils (Bld) [#/Vol] 6.8 E9/L Normal 2.0-7.5 [facility] Comment on above: Performed By: #### 2 369188 #### [facility] [address] [place] [address] Neutrophils/100 WBC (Bld) 77.7 % High 36.0-75.0 [facility] Comment on above: Performed By: #### 2 955886 #### [facility] [address] [place] [address] Platelet 252.0 E9/L Normal 150.0-500.0 [facility] Comment on above: Performed By: #### 2 023881 #### [facility] [address] [place] [address] Platelet mean volume (Bld) [Entitic vol] 8.0 fL Normal 6.4-10.8 [facility] Comment on above: Performed By: #### 2 667021 #### [facility] [address] [place] [address] RBC (Bld) [#/Vol] 5.7 E12/L Normal 4.3-5.9 [facility] Comment on above: Performed By: #### 2 922357 #### [facility] [address] [place] [address] RBC size Nom (Bld) SEE MORPHOLOGY Invalid Interpretation Code [facility] Comment on above: Performed By: #### 2 965518 #### [facility] [address] [place] [address] WBC corrected for nucl RBC Auto (Bld) [#/Vol] 8.8 E9/L Normal 4.0-11.0 [facility] Comment on above: Performed By: #### 2 340023 #### [facility] [address] [place] [address] CHEMISTRYOrdered By: SYSTEM SYSTEM on 05-28-2024 Anion [...] 2024 ED Clinical Summary ED Clinical Summary [address] [address] ED Clinical Summary Person Information Name: TESS MOORE [place] Age: 28 Years : 1995 Sex: Female Language: [place] Citizen PCP: Aleksey Laureano MD Marital Status: Visit [...] 05/28/2024 19:53:09 05/28/2024 19:53:09 05/28/2024 19:53:09 ADDRESS: [address] [place] [id number] PHYS DOC NOTES: MEDICAL INFORMATION: Prescriptions Given: Medications to Continue with No Changes Other Medications acetaminophen-hydroc odone (Tolstoy 325 mg-5 mg oral tablet) 1 Tablets [...] Follow up: With: Address: When: Aleksey Laureano [address] [place] [address], [facility] [place] [address] Business (1) In 3 days 05/31/2024 DIAGNOSIS: Hyperglycemia Normal [facility] ED Patient Summaryon 025 ED Patient Summary ED Patient Summary [address] [address] Patient Discharge Instructions Person Information Name: TESS MOORE Age: 28 Years Arrival Date: 05/28/2024 16:50:47 Discharge Diagnosis: Hyperglycemia Primary Care Physician: Aleksey Laureano MD Provider Information Primary Provider: Angelica Navarrete M.D. Advanced Shuffle Board Operator:Lukas Prasad PA-C The exam and treatment you received in the Emergency Department were for an urgent problem and are not intended as complete care. It is important that you follow up with a doctor, nurse practitioner, or physician???s loan assistant for ongoing care. If your [...] Follow-up Instructions: With: Address: When: Aleksey Laureano [address] [place] [address], [address] [place] [place] [phone] [facility] (1) In 3 days 05/31/2024 In the event that this physician does not participate in your insurance network, please consult with your insurance company to find a nearby participating provider. Patient Education Materials: Hyperglycemia A MESSAGE TO ALL PATIENTS REGARDING OPIOIDS PRESCRIPTION OPIOIDS: WHAT YOU NEED TO KNOW Prescription opioids can be used to help relieve gjtjwbwd-[id number]-pfyyyd pain and are often prescribed following a [...] care profession (more content not included)... Normal [facility] HEMATOLOGYOrdered By: SYSTEM SYSTEM on 05-28-2024 [...] Pre-Arrival User: Darnell Appiah Referring Source: Location: [place] Completion Date/Time: 05/28/2024 16:44:00 [facility] Emergency Department Pre-Hospital Report Form Vital Signs: Pre-Hospital Report: Treatment in Route: Response to Treatment: Misc. Issues: Normal [facility] SEROLOGYOrdered By: Onelia kurtz on 05-28-2024 Beta HCG ( test) Ql Negative (05/28/24 5:03 PM) Normal [facility] [place] eGFRon 05-28-2024 eGFR 124 mL/min/1.73 m2 Normal >=59 [facility] Comment on above: Performed By: #### 1 [id number] #### [facility] [address] [place] [address] HCG ( test) Ql (U)o n 11-26-2023 Interpretation and review of laboratory results Normal [facility] Preg Test, Ur Negative [facility] Glucose Glucometer (BldC) [M ass/Vol]on 10-01-2023 Glucose [Mass/Vol] 81 mg/dL Normal 65-99 [facility] Glucose Glucometer (BldC) [M ass/Vol]on 09-30-2023 Glucose [Mass/Vol] 134 mg/dL High 65-99 [facility] Glucose [Mass/Vol] 82 mg/dL Normal 65-99 [facility] Glucose [Mass/Vol] 70 mg/dL Normal 65-99 [facility] Glucose [Mass/Vol] 47 mg/dL Critically low 65-99 [facility] Glucose [Mass/Vol] 90 mg/dL Normal 65-99 [facility] CBC AND AUTO DIFFon 09-29-19 24 ABSOLUTE BASOPHIL 0.0 X10E9/L Normal 0.0-0.2 [facility] Comment on above: Performed By: #### C ALMA CMP, 2532-0, 3084-1, 37991-2 #### [facility] ([id number]) [address] [place] [address] ABSOLUTE NEUTROPHIL 10.0 X10E9/L High 1.5-6.6 [facility] Comment on above: Performed By: #### Carrillo MARQUEZ CMP, 2532-0, 3084-1, 56535-1 #### [facility] ([id number]) [address] [place] [address] Basophils/100 WBC (Bld) 0.3 % Normal [facility] Comment on above: Performed By: #### Carrillo BC, CMP, 2532-0, 3084-1, 67521-0 #### [facility] ([id number]) [address] [address] [place] [address] Eosinophils (Bld) [#/Vol] 0.1 10*3/uL Normal 0.0-0.4 [facility] Comment on above: Performed By: #### C BC, CMP, 2532-0, 3084-1, 96486-8 #### [facility] ([id number]) [address] [address] Eosinophils/100 WBC (Bld) 0.7 % Normal [facility] Comment on above: Performed By: #### Carrillo MARQUEZ, CMP, 2532-0, 3084-1, 34970-1 #### [facility] ([id number]) [address] [address] Erythrocyte distribution width (RBC) [Ratio] 16.1 % High 11.5-15.0 [facility] Comment on above: Performed By: #### Carrillo MARQUEZ, CMP, 2532-0, 3084-1, 04060-6 #### [facility] ([id number]) [address] [address] Hematocrit (Bld) [Volume fraction] 23.9 % Low 35-47 [facility] Comment on above: Performed By: #### Carrillo MARQUEZ, CMP, 2532-0, 3084-1, 67690-8 #### [facility] ([id number]) [address] [address] Hemoglobin (Bld) [Mass/Vol] 7.9 g/dL Low 11.7-15.5 [facility] Comment on above: Performed By: #### C BC, CMP, 2532-0, 3084-1, 72298-0 #### [facility] ([id number]) [address] [address] [place] [address] Lymphocytes (Bld) [#/Vol] 1.8 10*3/uL Normal 1.0-3.5 [facility] Comment on above: Performed By: #### C BC, CMP, 2532-0, 4-1, 07749-3 #### [facility] ([id number]) [address] [place] [address] Lymphocytes/100 WBC (Bld) 13.9 % Normal [facility] Comment on above: Performed By: #### C BC, CMP, 2532-0, 4-1, 73080-7 #### [facility] ([id number]) [address] [place] [address] MCH (RBC) [Entitic mass] 25.9 pg Low 27-34 [facility] Comment on above: Performed By: #### Carrillo BC, CMP, 2532-0, 4-1, 56238-9 #### [facility] ([id number]) [address] [place] [address] MCHC (RBC) [Mass/Vol] 33.2 g/dL Normal 32-36 [facility] Comment on above: Performed By: #### Carrillo BC, CMP, 2532-0, 4-1, 77783-0 #### [facility] ([id number]) [address] [place] [address] MCV (RBC) [Entitic vol] 78 fL Low 80-100 [facility] Comment on above: Performed By: #### C BC, CMP, 2532-0, 4-1, 99851-2 #### [facility] ([id number]) [address] [place] [address] Monocytes (Bld) [#/Vol] 1.1 10*3/uL High 0-0.9 [facility] Comment on above: Performed By: #### C BC, CMP, 2532-0, 4-1, 06966-9 #### [facility] ([id number]) [address] [place] [address] Monocytes/100 WBC (Bld) 8.7 % Normal [facility] Comment on above: Performed By: #### Carrillo BC, CMP, 2532-0, 3084-1, 75143-1 #### [facility] ([id number]) [address] [place] [address] Neutrophils/100 WBC (Bld) 76.4 % Normal [facility] Comment on above: Performed By: #### Carrillo BC, CMP, 2532-0, 3084-1, 92558-6 #### [facility] ([id number]) [address] [place] [address] Platelet mean volume (Bld) [Entitic vol] 8.6 fL Normal 7-12 [facility] Comment on above: Performed By: #### Carrillo BC, CMP, 2532-0, 4-1, 77906-3 #### [facility] ([id number]) [address] [place] [address] Platelets (Bld) [#/Vol] 277 10*3/uL Normal 150-450 [facility] Comment on above: Performed By: #### Carrillo MARQUEZ, CMP, 2532-0, 3084-1, 27807-2 #### [facility] ([id number]) [address] [place] [address] RBC COUNT 3.06 X10E12/L Low 3.80-5.20 [facility] Comment on above: Performed By: #### Carrillo BC, CMP, 2532-0, 3084-1, 85133-5 #### [facility] ([id number]) [address] [place] [address] WBC (Bld) [#/Vol] 13.0 10*3/uL High 4.0-11.0 [facility] Comment on above: Performed By: #### C BC, CMP, 2532-0, 3084-1, 07231-8 #### [facility] ([id number]) [address], [address] [place] [address] COMPREHENSIVE METABOLIC PANE Mario Alberto 09-29-2023 Albumin [Mass/Vol] 2.7 g/dL Low 3.2-5.3 [facility] Comment on above: Performed By: #### C BC, CMP, 2532-0, 3084-1, 46217-3 #### [facility] ([id number]) [address], [address] [place] [address] ALP [Catalytic activity/Vol] 111 U/L Normal 39-130 [facility] Comment on above: Performed By: #### C BC, CMP, 2532-0, 3084-1, 64658-2 #### [facility] ([id number]) [address], [address] [place] [address] ALT [Catalytic activity/Vol] 10 U/L Normal 0-31 [facility] Comment on above: Performed By: #### Carrillo BC, CMP, 2532-0, 3084-1, 37533-9 #### [facility] ([id number]) [address], [address] [place] [address] Anion gap [Moles/Vol] 10 mmol/L Normal 5-15 [facility] Comment on above: Performed By: #### C BC, CMP, 2532-0, 3084-1, 05122-5 #### [facility] ([id number]) [address], [address] [place] [address] AST [Catalytic activity/Vol] 17 U/L Normal 0-41 [facility] Comment on above: Performed By: #### C BC, CMP, 2532-0, 3084-1, 29073-2 #### [facility] ([id number]) [address], [address] [place] [address] Bilirubin [Mass/Vol] 0.3 mg/dL Normal 0.3-1.2 [facility] Comment on above: Performed By: #### Carrillo MARQUEZ CMP, 2532-0, 3084-1, 84045-4 #### [facility] ([id number]) [address], [address] [place] [address] Calcium [Mass/Vol] 8.0 mg/dL Low 8.5-10.5 [facility] Comment on above: Performed By: #### Carrillo MARQUEZ CMP, 2532-0, 3084-1, 93866-3 #### [facility] ([id number]) [address], [facility] [address] [place] [address] Chloride [Moles/Vol] 108 mmol/L Normal 98-109 [facility] Comment on above: Performed By: #### Carrillo MARQUEZ CMP, 2532-0, 3084-1, 99949-4 #### [facility] ([id number]) [address], [address] [place] [address] CO2 [Moles/Vol] 24 mmol/L Normal 22-32 [facility] Comment on above: Performed By: #### Carrillo MARQUEZ CMP, 2532-0, 3084-1, 38934-9 #### [facility] ([id number]) [address], [address] [place] [address] Creatinine [Mass/Vol] 0.61 mg/dL Normal 0.40-1.00 [facility] Comment on above: Result Comment: METH OD TRACEABLE TO IDMS STANDARD Performed By: #### Carrillo MARQUEZ CMP, 2532-0, 3084-1, 20756-2 #### [facility] ([id number]) [address], [address] [place] [address] eGFR (CKD-EPI) NON-RACE DEPENDENT >90 Normal >59 [facility] Comment on above: Result Comment: Reported eGFR is based on the CKD-EPI 2020 equation that does not use a race coefficient. Performed By: #### C ALMA, CMP, 2532-0, 3084-1, 23905-1 #### [facility] ([id number]) [address], [address] [place] [address] Glucose [Mass/Vol] 95 mg/dL Normal 65-99 [facility] Comment on above: Performed By: #### Carrillo MARQUEZ, CMP, 2532-0, 3084-1, 59957-8 #### [facility] ([id number]) [address], [address] [place] [address] Potassium [Moles/Vol] 4.2 mmol/L Normal 3.5-5.0 [facility] Comment on above: Performed By: #### Carrillo MARQUEZ, CMP, 2532-0, 3084-1, 11426-9 #### [facility] ([id number]) [address], [address] [place] [address] Protein [Mass/Vol] 5.4 g/dL Low 6.0-8.0 [facility] Comment on above: Performed By: #### Carrillo MARQUEZ CMP, 2532-0, 3084-1, 50174-7 #### [facility] ([id number]) [address], [address] [place] [address] Sodium [Moles/Vol] 142 mmol/L Normal 134-146 [facility] Comment on above: Performed By: #### Carrillo MARQUEZ, CMP, 2532-0, 3084-1, 66729-9 #### [facility] ([id number]) [address], [address] [place] [address] Urea nitrogen [Mass/Vol] 17 mg/dL Normal 5-23 [facility] Comment on above: Performed By: #### Carrillo MARQUEZ, CMP, 2532-0, 3084-1, 79869-4 #### [facility] ([id number]) [address], [address] [place] [address] Glucose Glucometer (BldC) [M ass/Vol]on 09-29-2023 Glucose [Mass/Vol] 156 mg/dL High 65-99 [facility] Glucose [Mass/Vol] 108 mg/dL High 65-99 [facility] Glucose [Mass/Vol] 88 mg/dL Normal 65-99 [facility] Glucose [Mass/Vol] 97 mg/dL Normal 65-99 [facility] CBC AND AUTO DIFFon 09-28-19 24 ABSOLUTE BASOPHIL 0.0 X10E9/L Normal 0.0-0.2 [facility] Comment on above: Performed By: #### Carrillo MARQUEZ CMP, 2532-0, 3084-1, 48929-3 #### [facility] ([id number]) [address], [address] [place] [address] ABSOLUTE NEUTROPHIL 11.5 X10E9/L High 1.5-6.6 [facility] Comment on above: Performed By: #### Carrillo MARQUEZ, CMP, 2532-0, 3084-1, 78534-9 #### [facility] ([id number]) [address], [address] [place] [address] Basophils/100 WBC (Bld) 0.2 % Normal [facility] Comment on above: Performed By: #### Carrillo MARQUEZ, CMP, 2532-0, 3084-1, 90816-2 #### [facility] ([id number]) [address], [address] [place] [address] Eosinophils (Bld) [#/Vol] 0.0 10*3/uL Normal 0.0-0.4 [facility] Comment on above: Performed By: #### Carrillo BC, CMP, 2532-0, 3084-1, 78801-4 #### [facility] ([id number]) [address], [address] [place] [address] Eosinophils/100 WBC (Bld) 0.2 % Normal [facility] Comment on above: Performed By: #### C BC, CMP, 2532-0, 3084-1, 41096-8 #### [facility] ([id number]) [address], [address] [place] [address] Erythrocyte distribution width (RBC) [Ratio] 16.1 % High 11.5-15.0 [facility] Comment on above: Performed By: #### C BC, CMP, 2532-0, 3084-1, 97136-1 #### [facility] ([id number]) [address], [facility] [address] [place] [address] Hematocrit (Bld) [Volume fraction] 26.3 % Low 35-47 [facility] Comment on above: Performed By: #### C BC, CMP, 2532-0, 3084-1, 43976-6 #### [facility] ([id number]) [address], [facility] [address] [place] [address] Hemoglobin (Bld) [Mass/Vol] 8.3 g/dL Low 11.7-15.5 [facility] Comment on above: Performed By: #### C BC, CMP, 2532-0, 3084-1, 68146-0 #### [facility] ([id number]) [address], [facility] [address] [place] [address] Lymphocytes (Bld) [#/Vol] 1.5 10*3/uL Normal 1.0-3.5 [facility] Comment on above: Performed By: #### C BC, CMP, 2532-0, 3084-1, 20913-1 #### [facility] ([id number]) [address] [address] [place] [address] Lymphocytes/100 WBC (Bld) 10.3 % Normal [facility] Comment on above: Performed By: #### C BC, CMP, 2532-0, 3084-1, 31909-9 #### [facility] ([id number]) [address], [address] [place] [address] MCH (RBC) [Entitic mass] 24.6 pg Low 27-34 [facility] Comment on above: Performed By: #### C ALMA, CMP, 2532-0, 3084-1, 83823-8 #### [facility] ([id number]) [address], [address] [place] [address] MCHC (RBC) [Mass/Vol] 31.5 g/dL Low 32-36 [facility] Comment on above: Performed By: #### Carrillo MARQUEZ, CMP, 2532-0, 4-1, 58395-0 #### [facility] ([id number]) [address], [address] [place] [address] MCV (RBC) [Entitic vol] 78 fL Low 80-100 [facility] Comment on above: Performed By: #### Carrillo MARQUEZ, CMP, 2532-0, 4-1, 76995-0 #### [facility] ([id number]) [address], [address] [place] [address] Monocytes (Bld) [#/Vol] 1.0 10*3/uL High 0-0.9 [facility] Comment on above: Performed By: #### Carrillo MARQUEZ, CMP, 2532-0, 4-1, 67947-2 #### [facility] ([id number]) [address], [address] [place] [address] Monocytes/100 WBC (Bld) 7.3 % Normal [facility] Comment on above: Performed By: #### C BC, CMP, 2532-0, 4-1, 79697-6 #### [facility] ([id number]) [address], [address] [place] [address] Neutrophils/100 WBC (Bld) 82.0 % Normal [facility] Comment on above: Performed By: #### C BC, CMP, 2532-0, 3084-1, 47818-5 #### [facility] ([id number]) [address], [address] [place] [address] Platelet mean volume (Bld) [Entitic vol] 9.1 fL Normal 7-12 [facility] Comment on above: Performed By: #### C BC, CMP, 2532-0, 3084-1, 35866-6 #### [facility] ([id number]) [address], [facility] [address] [place] [address] Platelets (Bld) [#/Vol] 289 10*3/uL Normal 150-450 [facility] Comment on above: Performed By: #### C BC, CMP, 2532-0, 3084-1, 31346-3 #### [facility] ([id number]) [address] [address] [place] [address] RBC COUNT 3.37 X10E12/L Low 3.80-5.20 [facility] Comment on above: Performed By: #### C BC, CMP, 2532-0, 3084-1, 31351-8 #### [facility] ([id number]) [address] [address] WBC (Bld) [#/Vol] 14.1 10*3/uL High 4.0-11.0 [facility] Comment on above: Performed By: #### C BC, CMP, 2532-0, 3084-1, 31778-8 #### [facility] ([id number]) [address], [address] [place] [address] COMPREHENSIVE METABOLIC PANE Mario Alberto 09-28-2023 Albumin [Mass/Vol] 3.1 g/dL Low 3.2-5.3 [facility] Comment on above: Performed By: #### C BC, CMP, 2532-0, 3084-1, 67738-1 #### [facility] ([id number]) [address], [address] [place] [address] ALP [Catalytic activity/Vol] 138 U/L High 39-130 [facility] Comment on above: Performed By: #### C BC, CMP, 2532-0, 3084-1, 32543-4 #### [facility] ([id number]) [address], [address] [place] [address] ALT [Catalytic activity/Vol] 11 U/L Normal 0-31 [facility] Comment on above: Performed By: #### C BC, CMP, 2532-0, 3084-1, 75697-4 #### [facility] ([id number]) [address], [address] [place] [address] Anion gap [Moles/Vol] 9 mmol/L Normal 5-15 [facility] Comment on above: Performed By: #### Carrillo BC, CMP, 2532-0, 3084-1, 91036-4 #### [facility] ([id number]) [address], [address] [place] [address] AST [Catalytic activity/Vol] 22 U/L Normal 0-41 [facility] Comment on above: Performed By: #### Carrillo MARQUEZ, CMP, 2532-0, 3084-1, 12605-7 #### [facility] ([id number]) [address], [address] [place] [address] Bilirubin [Mass/Vol] 0.3 mg/dL Normal 0.3-1.2 [facility] Comment on above: Performed By: #### C BC, CMP, 2532-0, 3084-1, 22065-7 #### [facility] ([id number]) [address], [address] [place] [address] Calcium [Mass/Vol] 7.3 mg/dL Low 8.5-10.5 [facility] Comment on above: Performed By: #### C BC, CMP, 2532-0, 3084-1, 56103-0 #### [facility] ([id number]) [address], [address] [place] [address] Chloride [Moles/Vol] 100 mmol/L Normal 98-109 [facility] Comment on above: Performed By: #### C BC, CMP, 2532-0, 3084-1, 34655-7 #### [facility] ([id number]) [address], [address] [place] [address] CO2 [Moles/Vol] 23 mmol/L Normal 22-32 [facility] Comment on above: Performed By: #### C BC, CMP, 2532-0, 3084-1, 57207-2 #### [facility] ([id number]) [address], [address] [place] [address] Creatinine [Mass/Vol] 0.73 mg/dL Normal 0.40-1.00 [facility] Comment on above: Result Comment: METH OD TRACEABLE TO IDMS STANDARD Performed By: #### C ALMA, CMP, 2532-0, 4-1, 19098-3 #### [facility] ([id number]) [address], [address] [place] [address] eGFR (CKD-EPI) NON-RACE DEPENDENT >90 Normal >59 [facility] Comment on above: Result Comment: Reported eGFR is based on the CKD-EPI 2021 equation that does not use a race coefficient. Performed By: #### C BC, CMP, 2532-0, 3084-1, 58556-9 #### [facility] ([id number]) [address], [address] [place] [address] Glucose [Mass/Vol] 114 mg/dL High 65-99 [facility] Comment on above: Performed By: #### C BC, CMP, 2532-0, 3084-1, 84495-1 #### [facility] ([id number]) [address], [address] [place] [address] Potassium [Moles/Vol] 3.9 mmol/L Normal 3.5-5.0 [facility] Comment on above: Performed By: #### C ALMA, CMP, 2532-0, 3084-1, 29005-7 #### [facility] ([id number]) [address], [address] [place] [address] Protein [Mass/Vol] 6.2 g/dL Normal 6.0-8.0 [facility] Comment on above: Performed By: #### Carrillo MARQUEZ, CMP, 2532-0, 3084-1, 08843-6 #### [facility] ([id number]) [address], [address] [place] [address] Sodium [Moles/Vol] 132 mmol/L Low 134-146 [facility] Comment on above: Performed By: #### Carrillo MARQUEZ, CMP, 2532-0, 3084-1, 57575-5 #### [facility] ([id number]) [address], [address] [place] [address] Urea nitrogen [Mass/Vol] 16 mg/dL Normal 5-23 [facility] Comment on above: Performed By: #### Carrillo MARQUEZ, CMP, 2532-0, 3084-1, 77750-6 #### [facility] ([id number]) [address], [address] [place] [address] Glucose Glucometer (BldC) [M ass/Vol]on 09-28-2023 Glucose [Mass/Vol] 143 mg/dL High 65-99 [facility] Glucose [Mass/Vol] 139 mg/dL High 65-99 [facility] Glucose [Mass/Vol] 183 mg/dL High 65-99 [facility] Glucose [Mass/Vol] 178 mg/dL High 65-99 [facility] Glucose [Mass/Vol] 139 mg/dL High 65-99 [facility] Glucose [Mass/Vol] 139 mg/dL High 65-99 [facility] Glucose [Mass/Vol] 123 mg/dL High 65-99 [facility] Glucose [Mass/Vol] 130 mg/dL High 65-99 [facility] Glucose [Mass/Vol] 120 mg/dL High 65-99 [facility] Glucose [Mass/Vol] 141 mg/dL High 65-99 [facility] Glucose [Mass/Vol] 123 mg/dL High 65-99 [facility] Glucose [Mass/Vol] 115 mg/dL High 65-99 [facility] Glucose [Mass/Vol] 114 mg/dL High 65-99 [facility] Glucose [Mass/Vol] 113 mg/dL High 65-99 [facility] Glucose [Mass/Vol] 113 mg/dL High 65-99 [facility] MAGNESIUMon 09-28-2023 Magnesium [Mass/Vol] 6.5 mg/dL Critically high 1.8-2.6 [facility] Comment on above: Performed By: #### U PCR #### [facility] ([id number]) [address], [address] [place] [address] POTASSIUMon 09-28-2023 Potassium [Moles/Vol] 4.3 mmol/L Normal 3.5-5.0 [facility] Comment on above: Performed By: #### C BC, CMP, 2532-0, 3084-1, 03414-9 #### [facility] ([id number]) [address], [address] [place] [address] Potassium [Moles/Vol] 4.4 mmol/L Normal 3.5-5.0 [facility] Comment on above: Performed By: #### U PCR #### [facility] ([id number]) [address], [address] [place] [address] XR CHEST 1 VWon 09-28-2023 XR CHEST [...] Dubose MD on 09/28/2023 1:40 AM Normal [facility] CBC AND AUTO DIFFon 09-27-19 ABSOLUTE BASOPHIL 0.0 X10E9/L Normal 0.0-0.2 [facility] Comment on above: Performed By: #### D LE #### [facility] ([id number]) [address] [address] [place] [address] ABSOLUTE NEUTROPHIL 15.2 X10E9/L High 1.5-6.6 [facility] Comment on above: Performed By: #### D LE #### [facility] ([id number]) [address] [facility], [address] [address] Basophils/100 WBC (Bld) 0.1 % Normal [facility] Comment on above: Performed By: #### D LE #### [facility] ([id number]) [address], [address] [address] Eosinophils (Bld) [#/Vol] 0.0 10*3/uL Normal 0.0-0.4 [facility] Comment on above: Performed By: #### D LE #### [facility] ([id number]) [address] [address] Eosinophils/100 WBC (Bld) 0.0 % Normal [facility] Comment on above: Performed By: #### D LE #### [facility] ([id number]) [address], [address] [address] Erythrocyte distribution width (RBC) [Ratio] 15.7 % High 11.5-15.0 [facility] Comment on above: Performed By: #### D LE #### [facility] ([id number]) [address], [address] [place] [address] Hematocrit (Bld) [Volume fraction] 24.7 % Low 35-47 [facility] Comment on above: Performed By: #### D LE #### [facility] ([id number]) [address], [address] [place] [address] Hemoglobin (Bld) [Mass/Vol] 7.9 g/dL Low 11.7-15.5 [facility] Comment on above: Performed By: #### D LE #### [facility] ([id number]) [address], [address] [place] [address] Lymphocytes (Bld) [#/Vol] 1.4 10*3/uL Normal 1.0-3.5 [facility] Comment on above: Performed By: #### D LE #### [facility] ([id number]) [address], [address] [place] [address] Lymphocytes/100 WBC (Bld) 8.0 % Normal [facility] Comment on above: Performed By: #### D LE #### [facility] ([id number]) [address], [address] [place] [address] MCH (RBC) [Entitic mass] 25.1 pg Low 27-34 [facility] Comment on above: Performed By: #### D LE #### [facility] ([id number]) [address], [address] [place] [address] MCHC (RBC) [Mass/Vol] 32.0 g/dL Normal 32-36 [facility] Comment on above: Performed By: #### D LE #### [facility] ([id number]) [address], [address] [place] [address] MCV (RBC) [Entitic vol] 78 fL Low 80-100 [facility] Comment on above: Performed By: #### D LE #### [facility] ([id number]) [address], [address] [place] [address] Monocytes (Bld) [#/Vol] 0.9 10*3/uL Normal 0-0.9 [facility] Comment on above: Performed By: #### D LE #### [facility] ([id number]) [address] [place] [address] Monocytes/100 WBC (Bld) 5.4 % Normal [facility] Comment on above: Performed By: #### D LE #### [facility] ([id number]) [address], [address] [place] [address] Neutrophils/100 WBC (Bld) 86.5 % Normal [facility] Comment on above: Performed By: #### D LE #### [facility] ([id number]) [address] [place] [address] Platelet mean volume (Bld) [Entitic vol] 8.9 fL Normal 7-12 [facility] Comment on above: Performed By: #### D LE #### [facility] ([id number]) [address] [place] [address] Platelets (Bld) [#/Vol] 246 10*3/uL Normal 150-450 [facility] Comment on above: Performed By: #### D LE #### [facility] ([id number]) [address] [place] [address] RBC COUNT 3.15 X10E12/L Low 3.80-5.20 [facility] Comment on above: Performed By: #### D LE #### [facility] ([id number]) [address], [address] [place] [address] WBC (Bld) [#/Vol] 17.6 10*3/uL High 4.0-11.0 [facility] Comment on above: Performed By: #### D LE #### [facility] ([id number]) [address] [place] [address] ABSOLUTE BASOPHIL 0.0 X10E9/L Normal 0.0-0.2 [facility] Comment on above: Performed By: #### 2 345-7 #### [facility] ([id number]) [address] [place] [address] ABSOLUTE NEUTROPHIL 13.2 X10E9/L High 1.5-6.[address] [facility] Comment on above: Performed By: #### 2 345-7 #### [facility] ([id number]) [address] [place] [address] Basophils/100 WBC (Bld) 0.2 % Normal [facility] Comment on above: Performed By: #### 2 345-7 #### [facility] ([id number]) [address] [place] [address] Eosinophils (Bld) [#/Vol] 0.0 10*3/uL Normal 0.0-0.4 [facility] Comment on above: Performed By: #### 2 345-7 #### [facility] ([id number]) [address] [place] [address] Eosinophils/100 WBC (Bld) 0.1 % Normal [facility] Comment on above: Performed By: #### 2 345-7 #### [facility] ([id number]) [address] [place] [address] Erythrocyte distribution width (RBC) [Ratio] 15.8 % High 11.5-15.0 [facility] Comment on above: Performed By: #### 2 345-7 #### [facility] ([id number]) [address], [address] [place] [address] Hematocrit (Bld) [Volume fraction] 25.1 % Low 35-47 [facility] Comment on above: Performed By: #### 2 345-7 #### [facility] ([id number]) [address], [address] [place] [address] Hemoglobin (Bld) [Mass/Vol] 7.9 g/dL Low 11.7-15.5 [facility] Comment on above: Performed By: #### 2 345-7 #### [facility] ([id number]) [address], [address] [place] [address] Lymphocytes (Bld) [#/Vol] 1.3 10*3/uL Normal 1.0-3.5 [facility] Comment on above: Performed By: #### 2 345-7 #### [facility] ([id number]) [address], [address] [place] [address] Lymphocytes/100 WBC (Bld) 8.0 % Normal [facility] Comment on above: Performed By: #### 2 345-7 #### [facility] ([id number]) [address], [address] [place] [address] MCH (RBC) [Entitic mass] 25.2 pg Low 27-34 [facility] Comment on above: Performed By: #### 2 345-7 #### [facility] ([id number]) [address], [address] [place] [address] MCHC (RBC) [Mass/Vol] 31.5 g/dL Low 32-36 [facility] Comment on above: Performed By: #### 2 345-7 #### [facility] ([id number]) [address] [address] [place] [address] MCV (RBC) [Entitic vol] 80 fL Normal 80-100 [facility] Comment on above: Performed By: #### 2 345-7 #### [facility] ([id number]) [address] [place] [address] Monocytes (Bld) [#/Vol] 1.2 10*3/uL High 0-0.9 [facility] Comment on above: Performed By: #### 2 345-7 #### [facility] ([id number]) [address] [place] [address] Monocytes/100 WBC (Bld) 7.9 % Normal [facility] Comment on above: Performed By: #### 2 345-7 #### [facility] ([id number]) [address] [place] [address] Neutrophils/100 WBC (Bld) 83.8 % Normal [facility] Comment on above: Performed By: #### 2 345-7 #### [facility] ([id number]) [address] [place] [address] Platelet mean volume (Bld) [Entitic vol] 9.4 fL Normal 7-12 [facility] Comment on above: Performed By: #### 2 345-7 #### [facility] ([id number]) [address] [place] [address] Platelets (Bld) [#/Vol] 229 10*3/uL Normal 150-450 [facility] Comment on above: Performed By: #### 2 345-7 #### [facility] ([id number]) [address] [place] [address] RBC COUNT 3.14 X10E12/L Low 3.80-5.20 [facility] Comment on above: Performed By: #### 2 345-7 #### [facility] ([id number]) [address] [place] [address] WBC (Bld) [#/Vol] 15.8 10*3/uL High 4.0-11.0 [facility] Comment on above: Performed By: #### 2 345-7 #### [facility] ([id number]) [address] [place] [address] COMPREHENSIVE METABOLIC PANE Mario Alberto 09-27-2023 Albumin [Mass/Vol] 2.9 g/dL Low 3.2-5.3 [facility] Comment on above: Performed By: #### D LE #### [facility] ([id number]) [address] [place] [address] ALP [Catalytic activity/Vol] 135 U/L High 39-130 [facility] Comment on above: Performed By: #### D LE #### [facility] ([id number]) [address] [place] [address] ALT [Catalytic activity/Vol] 10 U/L Normal 0-31 [facility] Comment on above: Performed By: #### D LE #### [facility] ([id number]) [address] [place] [address] Anion gap [Moles/Vol] 11 mmol/L Normal 5-15 [facility] Comment on above: Performed By: #### D LE #### [facility] ([id number]) [address] [place] [address] AST [Catalytic activity/Vol] 21 U/L Normal 0-41 [facility] Comment on above: Performed By: #### D LE #### [facility] ([id number]) [address] [place] [address] Bilirubin [Mass/Vol] 0.3 mg/dL Normal 0.3-1.2 [facility] Comment on above: Performed By: #### D LE #### [facility] ([id number]) [address] [place] [address] Calcium [Mass/Vol] 7.6 mg/dL Low 8.5-10.5 [facility] Comment on above: Performed By: #### D LE #### [facility] ([id number]) [address] [place] [address] Chloride [Moles/Vol] 102 mmol/L Normal 98-109 [facility] Comment on above: Performed By: #### D LE #### [facility] ([id number]) [address] [place] [address] CO2 [Moles/Vol] 19 mmol/L Low 22-32 [facility] Comment on above: Performed By: #### D LE #### [facility] ([id number]) [address] [place] [address] Creatinine [Mass/Vol] 0.78 mg/dL Normal 0.40-1.00 [facility] Comment on above: Result Comment: METH OD TRACEABLE TO IDMS STANDARD Performed By: #### D LE #### [facility] ([id number]) [address] [place] [address] eGFR (CKD-EPI) NON-RACE DEPENDENT >90 Normal >59 [facility] Comment on above: Result Comment: Reported eGFR is based on the CKD-EPI 2020 equation that does not use a race coefficient. Performed By: #### D LE #### [facility] ([id number]) [address] [place] [address] Glucose [Mass/Vol] 120 mg/dL High 65-99 [facility] Comment on above: Performed By: #### D LE #### [facility] ([id number]) [address] [address] [place] [address] Potassium [Moles/Vol] 4.5 mmol/L Normal 3.5-5.0 [facility] Comment on above: Performed By: #### D LE #### [facility] ([id number]) [address] [place] [address] Protein [Mass/Vol] 5.6 g/dL Low 6.0-8.0 [facility] Comment on above: Performed By: #### D LE #### [facility] ([id number]) [address] [place] [address] Sodium [Moles/Vol] 132 mmol/L Low 134-146 [facility] Comment on above: Performed By: #### D LE #### [facility] ([id number]) [address] [place] [address] Urea nitrogen [Mass/Vol] 18 mg/dL Normal 5-23 [facility] Comment on above: Performed By: #### D LE #### [facility] ([id number]) [address] [place] [address] Albumin [Mass/Vol] 2.7 g/dL Low 3.2-5.3 [facility] Comment on above: Performed By: #### 2 345-7 #### [facility] ([id number]) [address] [place] [address] ALP [Catalytic activity/Vol] 136 U/L High 39-130 [facility] Comment on above: Performed By: #### 2 345-7 #### [facility] ([id number]) [address] [place] [address] ALT [Catalytic activity/Vol] 10 U/L Normal 0-31 [facility] Comment on above: Performed By: #### 2 345-7 #### [facility] ([id number]) [address] [place] [address] Anion gap [Moles/Vol] 20 mmol/L High 5-15 [facility] Comment on above: Performed By: #### 2 345-7 #### [facility] ([id number]) [address] [place] [address] AST [Catalytic activity/Vol] 17 U/L Normal 0-41 [facility] Comment on above: Performed By: #### 2 345-7 #### [facility] ([id number]) [address] [place] [address] Bilirubin [Mass/Vol] 0.4 mg/dL Normal 0.3-1.2 [facility] Comment on above: Performed By: #### 2 345-7 #### [facility] ([id number]) [address] [place] [address] Calcium [Mass/Vol] 7.6 mg/dL Low 8.5-10.5 [facility] Comment on above: Performed By: #### 2 345-7 #### [facility] ([id number]) [address] [place] [address] Chloride [Moles/Vol] 102 mmol/L Normal 98-109 [facility] Comment on above: Performed By: #### 2 345-7 #### [facility] ([id number]) [address] [place] [address] CO2 [Moles/Vol] 11 mmol/L Low 22-32 [facility] Comment on above: Performed By: #### 2 345-7 #### [facility] ([id number]) [address] [place] [address] Creatinine [Mass/Vol] 0.88 mg/dL Normal 0.40-1.00 [facility] Comment on above: Result Comment: METH OD TRACEABLE TO IDMS STANDARD Performed By: #### 2 345-7 #### [facility] ([id number]) [address] [place] [address] eGFR (CKD-EPI) NON-RACE DEPENDENT >90 Normal >59 [facility] Comment on above: Result Comment: Reported eGFR is based on the CKD-EPI 2020 equation that does not use a race coefficient. Performed By: #### 2 345-7 #### [facility] ([id number]) [address] [place] [address] Glucose [Mass/Vol] 146 mg/dL High 65-99 [facility] Comment on above: Performed By: #### 2 345-7 #### [facility] ([id number]) [address] [place] [address] Potassium [Moles/Vol] 4.7 mmol/L Normal 3.5-5.0 [facility] Comment on above: Performed By: #### 2 345-7 #### [facility] ([id number]) [address] [place] [address] Protein [Mass/Vol] 5.4 g/dL Low 6.0-8.0 [facility] Comment on above: Performed By: #### 2 345-7 #### [facility] ([id number]) [address] [place] [address] Sodium [Moles/Vol] 133 mmol/L Low 134-146 [facility] Comment on above: Performed By: #### 2 345-7 #### [facility] ([id number]) [address] [place] [address] Urea nitrogen [Mass/Vol] 18 mg/dL Normal 5-23 [facility] Comment on above: Performed By: #### 2 345-7 #### [facility] ([id number]) [address] [place] [address] CORD ARTERIAL GASon 09-27-19 24 BASE,DEFICIT 14.0 MMOL/L High 0.0-2.0 [facility] Comment on above: Performed By: #### 2 345-7 #### [facility] ([id number]) [address] [place] [address] HCO3 (Bld) [Moles/Vol] 19.7 mmol/L Low 22-26 [facility] Comment on above: Performed By: #### 2 345-7 #### [facility] ([id number]) [address] [place] [address] Oxygen (Bld) [Partial pressure] mm[Hg] Low 12-24 [facility] Comment on above: Performed By: #### 2 345-7 #### [facility] ([id number]) [address] [place] [address] PCO2 76.4 MMHG High 40.8-57.6 [facility] Comment on above: Performed By: #### 2 345-7 #### [facility] ([id number]) [address] [place] [address] pH (Bld) 7.020 [pH] Low 7.24-7.30 [facility] Comment on above: Performed By: #### 2 345-7 #### [facility] ([id number]) [address] [place] [address] SAMPLE SITE ArtCord Normal [facility] Comment on above: Performed By: #### 2 345-7 #### [facility] ([id number]) [address] [place] [address] CORD VENOUS GASon 09-27-2023 LEIGHTON'S TEST Normal [facility] Comment on above: Performed By: #### 2 345-7 #### [facility] ([id number]) [address] [place] [address] BASE,DEFICIT 15.0 MMOL/L High 0.0-2.0 [facility] Comment on above: Performed By: #### 2 345-7 #### [facility] ([id number]) [address] [place] [address] HCO3 (Bld) [Moles/Vol] 15.0 mmol/L Low 20.0-24.0 [facility] Comment on above: Performed By: #### 2 345-7 #### [facility] ([id number]) [address] [place] [address] INSP. O2 CONC. 21 % Normal [facility] Comment on above: Performed By: #### 2 345-7 #### [facility] ([id number]) [address] [place] [address] Oxygen (Bld) [Partial pressure] 23 mm[Hg] Normal 22-35 [facility] Comment on above: Performed By: #### 2 345-7 #### [facility] ([id number]) [address] [place] [address] Oxygen saturation in Blood 24.0 % Low 32.5-66.3 [facility] Comment on above: Performed By: #### 2 345-7 #### [facility] ([id number]) [address] [place] [address] OXYGEN SOURCE RoomAir Normal [facility] Comment on above: Performed By: #### 2 345-7 #### [facility] ([id number]) [address] [place] [address] PCO2 48.4 MMHG High 32.6-43.8 [facility] Comment on above: Performed By: #### 2 345-7 #### [facility] ([id number]) [address] [place] [address] pH (Bld) 7.098 [pH] Low 7.25-7.37 [facility] Comment on above: Performed By: #### 2 345-7 #### [facility] ([id number]) [address] [place] [address] SAMPLE SITE VenCord Normal [facility] Comment on above: Performed By: #### 2 345-7 #### [facility] ([id number]) [address] [place] [address] SAMPLE TYPE UMBILICALCORD Normal [facility] Comment on above: Performed By: #### 2 345-7 #### [facility] ([id number]) [address] [place] [address] Glucose Glucometer (BldC) [M ass/Vol]on 09-27-2023 Glucose [...] 24 ABSOLUTE BASOPHIL 0.0 X10E9/L Normal 0.0-0.2 [facility] Comment on above: Performed By: #### 2 345-7 #### [facility] ([id number]) [address] [place] [address] ABSOLUTE NEUTROPHIL 13.5 X10E9/L High 1.5-6.6 [facility] Comment on above: Performed By: #### 2 345-7 #### [facility] ([id number]) [address] [place] [address] Basophils/100 WBC (Bld) 0.3 % Normal [facility] Comment on above: Performed By: #### 2 345-7 #### [facility] ([id number]) [address] [place] [address] Eosinophils (Bld) [#/Vol] 0.0 10*3/uL Normal 0.0-0.4 [facility] Comment on above: Performed By: #### 2 345-7 #### [facility] ([id number]) [address] [place] [address] Eosinophils/100 WBC (Bld) 0.1 % Normal [facility] Comment on above: Performed By: #### 2 345-7 #### [facility] ([id number]) [address] [place] [address] Erythrocyte distribution width (RBC) [Ratio] 15.5 % High 11.5-15.0 [facility] Comment on above: Performed By: #### 2 345-7 #### [facility] ([id number]) [address] [place] [address] Hematocrit (Bld) [Volume fraction] 29.2 % Low 35-47 [facility] Comment on above: Performed By: #### 2 345-7 #### [facility] ([id number]) [address] [place] [address] Hemoglobin (Bld) [Mass/Vol] 9.3 g/dL Low 11.7-15.5 [facility] Comment on above: Performed By: #### 2 345-7 #### [facility] ([id number]) [address] [place] [address] Lymphocytes (Bld) [#/Vol] 1.4 10*3/uL Normal 1.0-3.5 [facility] Comment on above: Performed By: #### 2 345-7 #### [facility] ([id number]) [address] [place] [address] Lymphocytes/100 WBC (Bld) 9.1 % Normal [facility] Comment on above: Performed By: #### 2 345-7 #### [facility] ([id number]) [address] [place] [address] MCH (RBC) [Entitic mass] 25.1 pg Low 27-34 [facility] Comment on above: Performed By: #### 2 345-7 #### [facility] ([id number]) [address] [place] [address] MCHC (RBC) [Mass/Vol] 31.9 g/dL Low 32-36 [facility] Comment on above: Performed By: #### 2 345-7 #### [facility] ([id number]) [address] [place] [address] MCV (RBC) [Entitic vol] 79 fL Low 80-100 [facility] Comment on above: Performed By: #### 2 345-7 #### [facility] ([id number]) [address] [place] [address] Monocytes (Bld) [#/Vol] 0.7 10*3/uL Normal 0-0.9 [facility] Comment on above: Performed By: #### 2 345-7 #### [facility] ([id number]) [address] [place] [address] Monocytes/100 WBC (Bld) 4.7 % Normal [facility] Comment on above: Performed By: #### 2 345-7 #### [facility] ([id number]) [address] [place] [address] Neutrophils/100 WBC (Bld) 85.8 % Normal [facility] Comment on above: Performed By: #### 2 345-7 #### [facility] ([id number]) [address] [place] [address] Platelet mean volume (Bld) [Entitic vol] 9.4 fL Normal 7-12 [facility] Comment on above: Performed By: #### 2 345-7 #### [facility] ([id number]) [address] [place] [address] Platelets (Bld) [#/Vol] 266 10*3/uL Normal 150-450 [facility] Comment on above: Performed By: #### 2 345-7 #### [facility] ([id number]) [address] [place] [address] RBC COUNT 3.70 X10E12/L Low 3.80-5.20 [facility] Comment on above: Performed By: #### 2 345-7 #### [facility] ([id number]) [address] [place] [address] WBC (Bld) [#/Vol] 15.8 10*3/uL High 4.0-11.0 [facility] Comment on above: Performed By: #### 2 345-7 #### [facility] ([id number]) [address] [place] [address] ABSOLUTE BASOPHIL 0.1 X10E9/L Normal 0.0-0.2 [facility] Comment on above: Performed By: #### 2 345-7 #### [facility] ([id number]) [address] [place] [address] ABSOLUTE NEUTROPHIL 9.1 X10E9/L High 1.5-6.6 [facility] Comment on above: Performed By: #### 2 345-7 #### [facility] ([id number]) [address] [place] [address] Basophils/100 WBC (Bld) 0.8 % Normal [facility] Comment on above: Performed By: #### 2 345-7 #### [facility] ([id number]) [address] [place] [address] Eosinophils (Bld) [#/Vol] 0.0 10*3/uL Normal 0.0-0.4 [facility] Comment on above: Performed By: #### 2 345-7 #### [facility] ([id number]) [address] [place] [address] Eosinophils/100 WBC (Bld) 0.2 % Normal [facility] Comment on above: Performed By: #### 2 345-7 #### [facility] ([id number]) [address] [place] [address] Erythrocyte distribution width (RBC) [Ratio] 15.5 % High 11.5-15.0 [facility] Comment on above: Performed By: #### 2 345-7 #### [facility] ([id number]) [address] [place] [address] Hematocrit (Bld) [Volume fraction] 27.0 % Low 35-47 [facility] Comment on above: Performed By: #### 2 345-7 #### [facility] ([id number]) [address] [place] [address] Hemoglobin (Bld) [Mass/Vol] 8.5 g/dL Low 11.7-15.5 [facility] Comment on above: Performed By: #### 2 345-7 #### [facility] ([id number]) [address] [place] [address] Lymphocytes (Bld) [#/Vol] 1.8 10*3/uL Normal 1.0-3.5 [facility] Comment on above: Performed By: #### 2 345-7 #### [facility] ([id number]) [address] [place] [address] Lymphocytes/100 WBC (Bld) 15.0 % Normal [facility] Comment on above: Performed By: #### 2 345-7 #### [facility] ([id number]) [address] [place] [address] MCH (RBC) [Entitic mass] 25.1 pg Low 27-34 [facility] Comment on above: Performed By: #### 2 345-7 #### [facility] ([id number]) [address] [place] [address] MCHC (RBC) [Mass/Vol] 31.3 g/dL Low 32-36 [facility] Comment on above: Performed By: #### 2 345-7 #### [facility] ([id number]) [address] [place] [address] MCV (RBC) [Entitic vol] 80 fL Normal 80-100 [facility] Comment on above: Performed By: #### 2 345-7 #### [facility] ([id number]) [address] [place] [address] Monocytes (Bld) [#/Vol] 0.9 10*3/uL Normal 0-0.9 [facility] Comment on above: Performed By: #### 2 345-7 #### [facility] ([id number]) [address] [place] [address] Monocytes/100 WBC (Bld) 7.5 % Normal [facility] Comment on above: Performed By: #### 2 345-7 #### [facility] ([id number]) [address] [place] [address] Neutrophils/100 WBC (Bld) 76.5 % Normal [facility] Comment on above: Performed By: #### 2 345-7 #### [facility] ([id number]) [address] [place] [address] Platelet mean volume (Bld) [Entitic vol] 9.1 fL Normal 7-12 [facility] Comment on above: Performed By: #### 2 345-7 #### [facility] ([id number]) [address] [place] [address] Platelets (Bld) [#/Vol] 156 10*3/uL Normal 150-450 [facility] Comment on above: Performed By: #### 2 345-7 #### [facility] ([id number]) [address] [place] [address] RBC COUNT 3.37 X10E12/L Low 3.80-5.20 [facility] Comment on above: Performed By: #### 2 345-7 #### [facility] ([id number]) [address] [place] [address] WBC (Bld) [#/Vol] 11.9 10*3/uL High 4.0-11.0 [facility] Comment on above: Performed By: #### 2 345-7 #### [facility] ([id number]) [address] [place] [address] COMPREHENSIVE METABOLIC PANE Mario Alberto 09-26-2023 Albumin [Mass/Vol] 3.2 g/dL Normal 3.2-5.3 [facility] Comment on above: Performed By: #### 2 345-7 #### [facility] ([id number]) [address] [place] [address] ALP [Catalytic activity/Vol] 175 U/L High 39-130 [facility] Comment on above: Performed By: #### 2 345-7 #### [facility] ([id number]) [address] [place] [address] ALT [Catalytic activity/Vol] 11 U/L Normal 0-31 [facility] Comment on above: Performed By: #### 2 345-7 #### [facility] ([id number]) [address], [address] [place] [address] Anion gap [Moles/Vol] 21 mmol/L High 5-15 [facility] Comment on above: Performed By: #### 2 345-7 #### [facility] ([id number]) [address], [address] [place] [address] AST [Catalytic activity/Vol] 15 U/L Normal 0-41 [facility] Comment on above: Performed By: #### 2 345-7 #### [facility] ([id number]) [address], [address] [place] [address] Bilirubin [Mass/Vol] 0.6 mg/dL Normal 0.3-1.2 [facility] Comment on above: Performed By: #### 2 345-7 #### [facility] ([id number]) [address], [address] [place] [address] Calcium [Mass/Vol] 8.3 mg/dL Low 8.5-10.5 [facility] Comment on above: Performed By: #### 2 345-7 #### [facility] ([id number]) [address], [address] [place] [address] Chloride [Moles/Vol] 99 mmol/L Normal 98-109 [facility] Comment on above: Performed By: #### 2 345-7 #### [facility] ([id number]) [address] [place] [address] CO2 [Moles/Vol] 13 mmol/L Low 22-32 [facility] Comment on above: Performed By: #### 2 345-7 #### [facility] ([id number]) [address] [place] [address] Creatinine [Mass/Vol] 0.78 mg/dL Normal 0.40-1.00 [facility] Comment on above: Result Comment: METH OD TRACEABLE TO IDMS STANDARD Performed By: #### 2 345-7 #### [facility] ([id number]) [address] [place] [address] eGFR (CKD-EPI) NON-RACE DEPENDENT >90 Normal >59 [facility] Comment on above: Result Comment: Reported eGFR is based on the CKD-EPI 2020 equation that does not use a race coefficient. Performed By: #### 2 345-7 #### [facility] ([id number]) [address] [place] [address] Glucose [Mass/Vol] 130 mg/dL High 65-99 [facility] Comment on above: Performed By: #### 2 345-7 #### [facility] ([id number]) [address], [address] [place] [address] Potassium [Moles/Vol] 4.9 mmol/L Normal 3.5-5.0 [facility] Comment on above: Performed By: #### 2 345-7 #### [facility] ([id number]) [address], [address] [place] [address] Protein [Mass/Vol] 6.4 g/dL Normal 6.0-8.0 [facility] Comment on above: Performed By: #### 2 345-7 #### [facility] ([id number]) [address] [place] [address] Sodium [Moles/Vol] 133 mmol/L Low 134-146 [facility] Comment on above: Performed By: #### 2 345-7 #### [facility] ([id number]) [address] [place] [address] Urea nitrogen [Mass/Vol] 14 mg/dL Normal 5-23 [facility] Comment on above: Performed By: #### 2 345-7 #### [facility] ([id number]) [address], [address] [place] [address] Albumin [Mass/Vol] 2.6 g/dL Low 3.2-5.3 [facility] Comment on above: Performed By: #### 2 345-7 #### [facility] ([id number]) [address], [address] [place] [address] ALP [Catalytic activity/Vol] 131 U/L High 39-130 [facility] Comment on above: Performed By: #### 2 345-7 #### [facility] ([id number]) [address], [address] [place] [address] ALT [Catalytic activity/Vol] 7 U/L Normal 0-31 [facility] Comment on above: Performed By: #### 2 345-7 #### [facility] ([id number]) [address] [place] [address] Anion gap [Moles/Vol] 15 mmol/L Normal 5-15 [facility] Comment on above: Performed By: #### 2 345-7 #### [facility] ([id number]) [address] [place] [address] AST [Catalytic activity/Vol] 15 U/L Normal 0-41 [facility] Comment on above: Performed By: #### 2 345-7 #### [facility] ([id number]) [address], [address] [place] [address] Bilirubin [Mass/Vol] 0.5 mg/dL Normal 0.3-1.2 [facility] Comment on above: Performed By: #### 2 345-7 #### [facility] ([id number]) [address] [place] [address] Calcium [Mass/Vol] 8.1 mg/dL Low 8.5-10.5 [facility] Comment on above: Performed By: #### 2 345-7 #### [facility] ([id number]) [address], [address] [place] [address] Chloride [Moles/Vol] 99 mmol/L Normal 98-109 [facility] Comment on above: Performed By: #### 2 345-7 #### [facility] ([id number]) [address], [address] [place] [address] CO2 [Moles/Vol] 14 mmol/L Low 22-32 [facility] Comment on above: Performed By: #### 2 345-7 #### [facility] ([id number]) [address], [address] [place] [address] Creatinine [Mass/Vol] 0.49 mg/dL Normal 0.40-1.00 [facility] Comment on above: Result Comment: METH OD TRACEABLE TO IDMS STANDARD Performed By: #### 2 345-7 #### [facility] ([id number]) [address], [address] [place] [address] eGFR (CKD-EPI) NON-RACE DEPENDENT >90 Normal >59 [facility] Comment on above: Result Comment: Reported eGFR is based on the CKD-EPI 2020 equation that does not use a race coefficient. Performed By: #### 2 345-7 #### [facility] ([id number]) [address] [place] [address] Glucose [Mass/Vol] 87 mg/dL Normal 65-99 [facility] Comment on above: Performed By: #### 2 345-7 #### [facility] ([id number]) [address] [place] [address] Potassium [Moles/Vol] 4.3 mmol/L Normal 3.5-5.[address] [facility] Comment on above: Performed By: #### 2 345-7 #### [facility] ([id number]) [address] [place] [address] Protein [Mass/Vol] 5.3 g/dL Low 6.0-8.0 [facility] Comment on above: Performed By: #### 2 345-7 #### [facility] ([id number]) [address] [place] [address] Sodium [Moles/Vol] 128 mmol/L Low 134-146 [facility] Comment on above: Performed By: #### 2 345-7 #### [facility] ([id number]) [address], [address] [place] [address] Urea nitrogen [Mass/Vol] 9 mg/dL Normal 5-23 [facility] Comment on above: Performed By: #### 2 345-7 #### [facility] ([id number]) [address] [place] [address] Glucose Glucometer (BldC) [M ass/Vol]on 09-26-2023 Glucose [Mass/Vol] 116 mg/dL High 65-99 [facility] Glucose [Mass/Vol] 131 mg/dL High 65-99 [facility] Glucose [Mass/Vol] 118 mg/dL High 65-99 [facility] Glucose [Mass/Vol] 114 mg/dL High 65-99 [facility] Glucose [Mass/Vol] 107 mg/dL High 65-99 [facility] Glucose [Mass/Vol] 107 mg/dL High 65-99 [facility] Glucose [Mass/Vol] 96 mg/dL Normal 65-99 [facility] Glucose [Mass/Vol] 96 mg/dL Normal 65-99 [facility] Glucose [Mass/Vol] 102 mg/dL High 65-99 [facility] Glucose [Mass/Vol] 113 mg/dL High 65-99 [facility] Glucose [Mass/Vol] 119 mg/dL High 65-99 [facility] COMPLETE BLOOD COUNTon 09-24 Erythrocyte distribution width (RBC) [Ratio] 15.7 % High 11.5-15.0 [facility] Comment on above: Performed By: #### Carrillo MARQUEZ CMP, 2532-0, 4-1, 73940-1 #### [facility] ([id number]) [address], [address] [place] [address] Hematocrit (Bld) [Volume fraction] 31.0 % Low 35-47 [facility] Comment on above: Performed By: #### Carrillo MARQUEZ CMP, 2531-0, 3083-1, 14765-5 #### [facility] ([id number]) [address], [address] [place] [address] Hemoglobin (Bld) [Mass/Vol] 10.1 g/dL Low 11.7-15.5 [facility] Comment on above: Performed By: #### Carrillo MARQUEZ CMP, 2532-0, 4-1, 90188-8 #### [facility] ([id number]) [address], [address] [place] [address] MCH (RBC) [Entitic mass] 25.3 pg Low 27-34 [facility] Comment on above: Performed By: #### Carrillo MARQUEZ CMP, 2532-0, 4-1, 65330-1 #### [facility] ([id number]) [address], [address] [place] [address] MCHC (RBC) [Mass/Vol] 32.7 g/dL Normal 32-36 [facility] Comment on above: Performed By: #### Carrillo BC, CMP, 2532-0, 3084-1, 88445-7 #### [facility] ([id number]) [address], [facility] [address] [place] [address] MCV (RBC) [Entitic vol] 77 fL Low 80-100 [facility] Comment on above: Performed By: #### Carrillo BC, CMP, 2532-0, 3084-1, 46598-8 #### [facility] ([id number]) [address], [facility] [address] [place] [address] Platelet mean volume (Bld) [Entitic vol] 8.8 fL Normal 7-12 [facility] Comment on above: Performed By: #### Carrillo BC, CMP, 2532-0, 3084-1, 08625-6 #### [facility] ([id number]) [address], [facility] [address] [place] [address] Platelets (Bld) [#/Vol] 271 10*3/uL Normal 150-450 [facility] Comment on above: Performed By: #### Carrillo BC, CMP, 2532-0, 3084-1, 67171-0 #### [facility] ([id number]) [address] [place] [address] RBC COUNT 4.01 X10E12/L Normal 3.80-5.20 [facility] Comment on above: Performed By: #### C BC, CMP, 2532-0, 3084-1, 31340-6 #### [facility] ([id number]) [address], [address] [place] [address] WBC (Bld) [#/Vol] 13.8 10*3/uL High 4.0-11.0 [facility] Comment on above: Performed By: #### C BC, CMP, 2532-0, 3084-1, 32553-2 #### [facility] ([id number]) [address], [address] [place] [address] COMPREHENSIVE METABOLIC PANE Mario Alberto 09-25-2023 Albumin [Mass/Vol] 3.3 g/dL Normal 3.2-5.3 [facility] Comment on above: Performed By: #### C BC, CMP, 2532-0, 3084-1, 87242-2 #### [facility] ([id number]) [address], [address] [place] [address] ALP [Catalytic activity/Vol] 178 U/L High 39-130 [facility] Comment on above: Performed By: #### C BC, CMP, 2532-0, 3084-1, 47063-6 #### [facility] ([id number]) [address], [address] [place] [address] ALT [Catalytic activity/Vol] 10 U/L Normal 0-31 [facility] Comment on above: Performed By: #### C BC, CMP, 2532-0, 3084-1, 44130-9 #### [facility] ([id number]) [address] [place] [address] Anion gap [Moles/Vol] 13 mmol/L Normal 5-15 [facility] Comment on above: Performed By: #### C BC, CMP, 2532-0, 3084-1, 49112-0 #### [facility] ([id number]) [address], [address] [place] [address] AST [Catalytic activity/Vol] 15 U/L Normal 0-41 [facility] Comment on above: Performed By: #### C BC, CMP, 2532-0, 3084-1, 05023-8 #### [facility] ([id number]) [address] [place] [address] Bilirubin [Mass/Vol] 0.7 mg/dL Normal 0.3-1.2 [facility] Comment on above: Performed By: #### C BC, CMP, 2532-0, 3084-1, 75046-4 #### [facility] ([id number]) [address], [address] [place] [address] Calcium [Mass/Vol] 8.7 mg/dL Normal 8.5-10.5 [facility] Comment on above: Performed By: #### Carrillo MARQUEZ, CMP, 2532-0, 3084-1, 63638-2 #### [facility] ([id number]) [address], [address] [place] [address] Chloride [Moles/Vol] 103 mmol/L Normal 98-109 [facility] Comment on above: Performed By: #### Carrillo MARQUEZ, CMP, 2532-0, 3084-1, 36891-7 #### [facility] ([id number]) [address], [address] [place] [address] CO2 [Moles/Vol] 19 mmol/L Low 22-32 [facility] Comment on above: Performed By: #### Carrillo MARQUEZ, CMP, 2532-0, 3084-1, 04330-5 #### [facility] ([id number]) [address], [address] [place] [address] Creatinine [Mass/Vol] 0.50 mg/dL Normal 0.40-1.00 [facility] Comment on above: Result Comment: METH OD TRACEABLE TO IDMS STANDARD Performed By: #### C BC, CMP, 2532-0, 3084-1, 22711-7 #### [facility] ([id number]) [address], [address] [place] [address] eGFR (CKD-EPI) NON-RACE DEPENDENT >90 Normal >59 [facility] Comment on above: Result Comment: Reported eGFR is based on the CKD-EPI 2020 equation that does not use a race coefficient. Performed By: #### C CONI MARQUEZ, 2532-0, 3084-1, 97042-8 #### [facility] ([id number]) [address], [address] [place] [address] Glucose [Mass/Vol] 105 mg/dL High 65-99 [facility] Comment on above: Performed By: #### C ALMA, CMP, 2532-0, 3084-1, 56041-5 #### [facility] ([id number]) [address], [address] [place] [address] Potassium [Moles/Vol] 4.2 mmol/L Normal 3.5-5.0 [facility] Comment on above: Performed By: #### Carrillo MARQUEZ CMP, 2532-0, 3084-1, 07629-7 #### [facility] ([id number]) [address], [address] [place] [address] Protein [Mass/Vol] 6.6 g/dL Normal 6.0-8.0 [facility] Comment on above: Performed By: #### Carrillo MARQUEZ CMP, 2532-0, 3084-1, 22974-4 #### [facility] ([id number]) [address], [address] [place] [address] Sodium [Moles/Vol] 135 mmol/L Normal 134-146 [facility] Comment on above: Performed By: #### Carrillo MARQUEZ, CMP, 2532-0, 3084-1, 47525-8 #### [facility] ([id number]) [address], [address] [place] [address] Urea nitrogen [Mass/Vol] 9 mg/dL Normal 5-23 [facility] Comment on above: Performed By: #### Carrillo MARQUEZ, CMP, 2532-0, 3084-1, 78858-3 #### [facility] ([id number]) [address], [address] [place] [address] DRUG SCREEN, URINEon 024 AMPHETAMINE/METHAMP Negative Normal NEG [facility] Comment on above: Result Comment: AMPH /METH screening cut off = 1000 ng/mL Performed By: #### D LE #### [facility] ([id number]) [address], [address] [place] [address] BARBITURATES Negative Normal NEG [facility] Comment on above: Result Comment: Helen iturates screening cut off value = 200 ng/mL Performed By: #### D LE #### [facility] ([id number]) [address], [address] [place] [address] BENZODIAZEPINES Negative Normal NEG [facility] Comment on above: Result Comment: Efrain odiazepines screening cut off value = 200 ng/mL Performed By: #### D LE #### [facility] ([id number]) [address], [address] [place] [address] CANNABINOIDS Negative Normal NEG [facility] Comment on above: Result Comment: Bobbi abinoids/THC screening cut off value = 50 ng/mL Performed By: #### D LE #### [facility] ([id number]) [address] [place] [address] COCAINE METABOLITE Negative Normal NEG [facility] Comment on above: Result Comment: Coca ine screening cut off value = 300 ng/mL Performed By: #### D LE #### [facility] ([id number]) [address] [place] [address] ECSTASY Negative Normal NEG [facility] Comment on above: Result Comment: Ecst asy screening cut off value = 500 ng/mL This report is intended for use in clinical monitoring or management of patients. Performed By: #### D LE #### [facility] ([id number]) [address] [place] [address] METHADONE Negative Normal NEG [facility] Comment on above: Result Comment: Meth adone screening cut off value = 300 ng/mL. Performed By: #### D LE #### [facility] ([id number]) [address], [address] [place] [address] OPIATES Negative Normal NEG [facility] Comment on above: Result Comment: Opia marisa screening cut off value = 300 ng/mL NOTE: This test is used for the detection of codeine, hydrocodone (>1000 ng/mL), morphine and hydromorphone (>900 ng/mL) in urine. Performed By: #### D LE #### [facility] ([id number]) [address], [address] [place] [address] OXYCODONE Negative Normal NEG [facility] Comment on above: Result Comment: Oxyc odone screening cut off value = 300 ng/mL NOTE: This test is used for the detection of oxycodone and oxymorphone in urine. Performed By: #### D LE #### [facility] ([id number]) [address] [place] [address] PHENCYCLIDINE Negative Normal NEG [facility] Comment on above: Result Comment: Phen cyclidine screening cut off value = 25 ng/mL Performed By: #### D LE #### [facility] ([id number]) [address] [place] [address] Glucose Glucometer (BldC) [M ass/Vol]on 09-25-2023 Glucose [Mass/Vol] 94 mg/dL Normal 65-99 [facility] Glucose [Mass/Vol] 105 mg/dL High 65-99 [facility] LDH [Catalytic activity/Vol] on 09-25-2023 LDH 178 U/L Normal 100-235 [facility] Comment on above: Performed By: #### C BC, CMP, 2532-0, 3084-1, 76543-0 #### [facility] ([id number]) [address] [facility] [address] [place] [address] PROTEIN CREAT RATIOon 2023 RANDOM URINE PROTEIN 1750 mg/L High <120 [facility] Comment on above: Performed By: #### U PCR #### [facility] ([id number]) [address] [address] U/PRO/THERAPEUTIC ASSISTANT RATIO CALC 1.81 High <0.2 [facility] Comment on above: Result Comment: Neph rotic Syndrome is associated with ratios >3.5 Performed By: #### U PCR #### [facility] ([id number]) [address] [place] [address] URINE CREATININE,RDM 96.64 mg/dL Normal [facility] Comment on above: Performed By: #### U PCR #### [facility] ([id number]) [address] [place] [address] T. pallidum IgG+IgM IA Ql (S )on 09-25-2023 Syphilis Total <0.2 Normal 0.0-0.8 [facility] Comment on above: Result Comment: NON REACTIVE No serologic evidence of infection to Treponema pallidum (syphilis). Repeat testing may be considered in patients with suspected acute or primary syphilis in 2 to 4 weeks. Performed By: #### 2 345-7 #### [facility] ([id number]) [address] [place] [address] URIC ACIDon 09-25-2023 Urate [Mass/Vol] 6.2 mg/dL Normal 2.6-7.2 [facility] Comment on above: Performed By: #### C BC, CMP, 2532-0, 3084-1, 22940-5 #### [facility] ([id number]) [address] [address] Coding Summary.on 06-24-2024 Coding Summary. BGCAOimc16DDc2jJv+PG hlYWQ+FS0OTBDqO41sgG GlaC7vT7MBHKlUXtmiHQ FPMHcAHyDoviQpDK3ucS NjZXJu IC8+DJ7eUMZpEnjbeUAp y2P7hGC7G26zeq2kIWip sZM9JVJvCqQukzycl0rw kDk8SZuvAdptTtRr WYTwqU38WUU1rE15Yo17 dLHbnFWad3muuAm8DyZa MMPdHKG6wJzbACynf8Wn ZZBnC17rcMNjb2K8 IGNvbGxhcHNlOyBlbXB0 rA6kWEcclaroe6jngcly Fjd7fy51bNWja7X4yRE8 R3MtkoR8EDNdcJKk FqyxtADLfM6yraiwd0rg tkvvUvSdMNTtTKy6SZm6 XVYcnMykXdUqHJ52JVE8 PULiyiQiE6UwKYUd dPxvDxN6h9E4Sm6BV7MV NjhtM7GBTIJPTMsmcNM+ DI03xe14N5SjThfcRjm0 MWToAXR1zBU9iH8j IJHiVQzpv0X0qPT4D9Wx lnPlkc7ob4ozRFDfGGtu Y78fzUCus6E4VGZwoLJ5 AJSdwLzeYjJzeL28 Oyc+XQShfOqyw8YySdlh a1fws0jlzOb4WgfaWGLi mgZnsYkoEOP1f4KbWw3z OYLatND3gUZ6oH1y NqApXsR9RGkaE335MoDo jRXoOrjeF35rT8JygHF+ TIUvKwt5CRKnkPijYH5v D9KkUIEjkaxytWOy sMdjYZ3mHWIhbtwsXHSe bC5vSYSbW4d1GaVbJlJ0 PTpjA7QlJFGsynrrTz64 nD5eMnQkClG8QPrj L1NtylM6QBKtdNJoDHbl RHZ9V81sn4R8DMYdZTYl AAC8zOY9pU2msLaibskb bGVmdDsgdmVydGlj GHclAYnpP409PDCorMcz PkNvZGluZyBEYXRlOiAg MDYvMjQvMjAyNDwvdGQ+ XYFvCID7jWneGKVc gJBoDHriPt1dyWfiyVeh EF9sAPOsmroiLCRfeF4o MWOukPPesWcmLN1tHPQu tynin719TaTkPUQ1 ZUCieTRaH0NndL4nYtHx EOWqACHzG7JneACzYNnm Y043SPjrAbZ5VXMeujOn P9ZlSGBccArlSoK9 i2K4Oa5Li2YlircuP3Tq qCJqZbWgNvhiORe0G0Ed PjwvdHI+DQ72ZLKvQR65 USi3FZM4gShsXFad MDAhM1WvzD5wFfYxYIOu ZGRkOyc+PHRhYmxlIHdp ZHRoPScxMDAlJyBzdHls UV3mXu9nJMFtVJRz aAftjLKeLjSkj8jnEPOy YReaJN9cuXwbO7KwzEQ9 HDXra7p8Vb12N19kK8Ys dXA+RDIhpWB7uNF5 hO2xQtKrDsR0IDkeV931 TnSciKMuCtorw8qav5wh qZe3FpQ9ZCRwngVnhNnj JVW3z6ZsMi56P55j IHdpZHRoPSIxNSUiIHZh mIkzmg0niO2kWe7+PGNv uZM3nEH3yZ9kJtGvRwL8 VJspU011SgPoiXLn Dpbef6goi6kxyMg7SyRh BWXtlvHpvWuoRIU7x1Yw Ob03N9MyhTktc9YjYqp8 en91jLMpa5I4vOW0 N5BfDOOoasvvmKNxzZsd IS5bBOFvwoceRDUieI3d OOHtS0d0WlMjHbR9BRqy A7IcsmY0FQEgcZZu BQWftUTRpG8fmgawn7nq zphcXqToEJShASb7JEy3 DQZvzKrdCwWbBTX0YyI0 YKH5qKXixQ2tqJvl mqzrzG1rTvl+RVM8uSYz xYFSKY7oEygcaDS+PHRk XZA4bTxdVQnsKCHuqF8t YGWxH1h5IeGhQaX6 ECfpB5NoqaN4BEYzzUGn UDFdyWZDgP3stddxc5wo pqejZvNiGADwXHy2YDg6 LWFsaWduOiBsZWZ0 KqB9QWF4eWBpfZ0glBwx xcmmhQ6nCkr+QmlydGgg ZOY8KIs0P2TnYjc7DMQh mEsbCW3dpZRlSTpn Of3jmTplyNlnWH8aVTIa waefd003FjJld7iwNJGc lOEbEHicZQJ8C29am4M8 WUFjMQFqKOD8jIW8 jA3jfPnyqurqoMHteHib klEdnKaaZPfuRVktN092 EJQpmAkfWtPiNEj6Q7Qb Yhv3YOCsqTmmJL6y wCZjXAkqCm8ohVdasJfm EK5aFRTohpjzr410KuNu t6evLFWgpXCbDWarUNK9 N78ww8C8DDQkTOOa ZVE0kMJ5rJ2lgDyohmbp bGVmdDsgdmVydGljYWwt RRuvC622YTYzfMbfZwUj nIn9G4ZgKtx3OVJg gLagEQ2gpNGgAAsxPr0o cTnrwYxeIK1rNACqplsw v916NpBkc3mjTYBmpQHt ZHqaUXT5C95lc3C2 STWpQWVnQPF1qQG7eV3m bGlnbjogbGVmdDsgdmVy oJeyHAbdORwdI821VYBu cDsnPlBhdGllbnQg PVbcQKx8H4InShjzyNV+ TF00TEUyEN24cETiwREc e9xwxNv2QwXsFIXwLUC9 xDofULjlw3NsBVOv E70gaKGqn5G2AEMvlKed iGApYeIgoVT4fT8vMPbg tzsfm2vmqeoySnyrm7xn wq78uG79F02oMVal ZHRoPSIzMCUiIHZhbGln xg8siE0pRq0+PGNvbCB3 jZE3jA9oZXFgPaX4EIur A713OcWhuJUwPnju l4btu8btlDz5EbZ7VSKv udBzzKerLQI8g6ImEb72 X87pBRmwTWOgFAUyDHKv ZFBslUoaui1ywR1n Ii8+FUFenLO4iCK3bM0q SaDpPuE6UGbtB290QeDa qGQeUhfqF26eT2SnsAO+ DPBvRdu2MRAfbLic EQ4bcNHwPNoyFe7gZOT1 ZyTaAjMzTTjfV0TbCQUz ftquegqxfXC3VINuMIQm xV97Oh2xlZvgAMSz pKLCgI9wmgdhg5goemwp ZrCjTRMdBNy9YJm2KFDa bMdlArUzBVQ6UkI2TYL0 yWDvcP2thSlndkke qE8rC4JmFLGxwnmeMu82 bB5dLaDrLsW2RDeqQka+ KlMEKY7VM7EsTZLZY7VE GvQHSMHMJU58IG49 rQXeo1H7oAU8R4ZeZBOg pwklppystVA3ZCTkKALm rD79mNSdQVavVk9kl0E3 z429QDXdBEKrfT01 Qt8ucKeoNPHvlXEYvT5m muatf7duszbdSjMlXSTz JMa4VDo4TRXuoZsfNzLw KEM2RpF2KKN2dTOl oB1ysUnluevkeJ2jUpi+ LRjwPIVsPCs3VLesjRP+ SYDyADY2xUhyLWgvLSEc iE7bTPZtD8m6TgAj LgW3UFwwM5JzBNBuqmqy Cc94lG9jUzHfQgV3GMaf N0AirvL9KWWqzFGvKIrb ENY7Q65vf7J9AESm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 [address] GLUCOSEon 06-23-2023 Glucose [Mass/Vol] 168 mg/dL High 65-99 [facility] Comment on above: Performed By: #### 2 345-7 #### [facility] ([id number]) [address] [place] [address], [address] [place] [address] Glucose random or fastingon 06-23-2023 External Glucose Fasting Or Random (Fbs) 200 [facility] [address] Glutamate decarboxylase 65 A b IA Qn (S)on 06-23-2023 YEYO ANTIBODY <5.0 Normal 0.0-5.0 [facility] Comment on above: Result Comment: NOTE INTERPRETIVE INFORMATION: Glutamic Acid Decarboxylase Antibody A value greater than 5.0 IU/mL is considered positive for Glutamic Acid Decarboxylase Antibody (YEYO Ab). This assay is intended for the semi-quantitative determination of the YEYO Ab in human serum. Results should be interpreted within the context of clinical symptoms. Performed By: [employer] [address] [place] [address] Director Export: Mark Fitzpatrick MD, PhD CLIA Number: [id number] Performed By: #### 2 345-7 #### [facility] ([id number]) [address] [place] [address], [address] [place] [address] POCT Hemoglobin A1con 2023 HbA1c (Bld) [Mass fraction] 6.8 g/dL 4 - 7 g/dL [facility] [employer] [facility] Test IDon 04- Insulinoma Ab 2 See Below Normal [facility] Comment on above: Result Comment: [...] Clinical correlation is required. Test Performed By: [facility] [employer] [address] [place] [address] Director Export: Vaibhav Julian III, M.D. CLIA #[id number] Performed By: #### 2 345-7 #### [facility] ([id number]) [address] [place] [address], [address] [place] [address] CBC without diffon Hematocrit (Bld) [Volume fraction] 40.1 % [facility] Hemoglobin (Bld) [Mass/Vol] 12.8 g/dL [facility] Platelets (Bld) [#/Vol] 305 10*3/uL [facility] Rbc Mcv (Fl) By Automated Count 82.2 [facility] Free Cell DNAon 2023 Free Cell Dna no call ProMe [facility] HIV 1&2 AB/AG Screen (P24 AG )on [...] immune statuson 04-01-2023 Rubella immune IgG immune [facility] Syphilis Total(Unknown Syphi lis Status)on 04-01-2023 Syphilis Non-Reactive [facility] TSHon 04-01-2023 Thyroid Stimulating (3Rd Generation) Hormone/ Tsh 1.051 [facility] TSH Qn 1.05 m[IU]/L [facility] Type and screenon 04-01-2023 Abo/Rh(D) Positive [facility] Urine Cultureon 04-01-2023 Bacteria identified Cx Nom (U) no growth [facility] [address] Covid-19 PCR (CVDTBH)on 05-09 SARS-CoV-2 (COVID-19) RNA EZEKIEL+probe Ql (Unsp spec) Not detected Normal NOT DETECTED [facility] Comment on above: Result Comment: This test is not yet approved or cleared by the [place] FDA. When there are no FDA-approved or cleared tests available, and other criteria are met, FDA can make tests available under an emergency access mechanism called an Emergency Use Authorization (EUA). The EUA for this test is supported by the [place] of Health and Human Service's (HHS's) declaration [...] SARS-CoV-2. Performed By: #### C VDTBH #### [facility] [address] [place] [address] Dr. Rosemary Ames GROUP A STREP CULTUREon 05-09 S. pyogenes Ag Ql (Unsp spec) Culture Observations: NEGATIVE FOR GROUP A STREPTOCOCCUS. Normal [facility] Comment on above: Performed By: #### T 7, LIPID, TSH, CMADM, BNP, CMP #### [facility] [address] [place] [address] Dr. Rosemary Ames INFLUENZA A AND B AGon 05-31 INFLUANEGH SEE BELOW Normal [facility] Comment on above: Result Comment: Nega tive for Flu A protein angiten. Infection due to Flu A cannot be ruled out. Flu A angiten in the sample may be below the detection limit of the test. Performed By: #### I NFLUAB #### [facility] [address] [place] [address] Dr. Rosemary Ames INFLUBNEGH SEE BELOW Normal [facility] Comment on above: Result Comment: Nega tive for Flu B protein antigen. Infection due to Flu B cannot be ruled out. Flu B antigen in the sample may be below the detection limit of the test. Performed By: #### I NFLUAB #### [facility] [address] [place] [address] Dr. Rosemary Amse INFLUENZA A AG Negative Normal NEGATIVE SEE COMMENT [facility] Comment on above: Performed By: #### I NFLUAB #### [facility] [address] [place] [address] Dr. Rosemary Ames INFLUENZA B AG Negative Normal NEGATIVE SEE COMMENT [facility] Comment on above: Performed By: #### I NFLUAB #### [facility] [address] [place] [address] Dr. Rosemary Ames STREPT SCREENon 05-31-2022 STREP SCREEN A Negative Normal NEGATIVE [facility] Comment on above: Performed By: #### E RUR #### [facility] [address] [place] [address] Dr. Rosemary Ames SYMPTOMATIC COVID-19 ANTIGEN on 05-31-2022 EUA Statement SEE BELOW Normal [facility] Comment on above: Result [...] 7, LIPID, TSH, CMADM, BNP, CMP #### [facility] [address] [address] [address] Rosemary Ames SARS-CoV-2 (COVID-19) RNA EZEKIEL+probe Ql (Unsp spec) Negative Normal NEGATIVE [facility] Comment on above: Performed By: #### T 7, LIPID, TSH, CMADM, BNP, CMP #### [facility] [address] [address] [address] Rosemary Ames ECHOCARDIO M/2D COMPLETEon 0 04-10-2022 ECHOCARDIO M/2D COMPLETE Patient: TESS ASHLEY Exam Date: 04/10/2022 : 1995 Gender:F Ordering : DR ALEKSEY LAUREANO . Admission #: [id number] Family : Order #: [id number] CLICK HERE TO VIEW EXAM ECHOCARDIOGRAM REPORT [...] M.D. on 04/10/2022 at 17:40 Normal [facility] CBC AUTO DIFFon 03-13-2022 BASO # 0.0 103/ul Normal 0.0-0.1 [facility] Comment on above: Performed By: #### A 1C #### [facility] [address] [address] [address] Rosemary Ames Basophils/100 WBC (Bld) 0.3 % Normal 0.2-2.0 [facility] Comment on above: Performed By: #### A 1C #### [facility] [address] [place] [address] Dr. Rosemary Ames EO # 0.0 103/ul Normal 0.0-0.7 [facility] Comment on above: Performed By: #### A 1C #### [facility] [address] [place] [address] Dr. Rosemary Ames Eosinophils/100 WBC (Bld) 0.5 % Critically low 0.9-7.0 [facility] Comment on above: Performed By: #### A 1C #### [facility] [address] [place] [address] Dr. Rosemary Ames Erythrocyte distribution width (RBC) [Ratio] 14.5 % Normal 11.0-15.0 [facility] Comment on above: Performed By: #### A 1C #### [facility] [address] [place] [address] Dr. Rosemary Ames Hematocrit (Bld) [Volume fraction] 39.7 % Normal 36.0-48.0 [facility] Comment on above: Performed By: #### A 1C #### [facility] [address] [place] [address] Dr. Rosemary Ames Hemoglobin (Bld) [Mass/Vol] 12.9 g/dL Normal 12.0-16.0 [facility] Comment on above: Performed By: #### A 1C #### [facility] [address] [place] [address] Dr. Rosemary Ames IG # 0.03 10e3/ul Normal 0.00-0.03 [facility] Comment on above: Performed By: #### A 1C #### [facility] [address] [place] [address] Dr. Rosemary Ames IG % 0.4 % Normal 0.0-0.5 [facility] Comment on above: Performed By: #### A 1C #### [facility] [address] [place] [address] Dr. Rosemary Ames LYMPH # 0.5 103/ul Critically low 1.2-3.8 [facility] Comment on above: Performed By: #### A 1C #### [facility] [address] [place] [address] Dr. Rosemary Ames Lymphocytes/100 WBC (Bld) 6.6 % Critically low 20.5-60.0 [facility] Comment on above: Performed By: #### A 1C #### [facility] [address] [place] [address] Dr. Rosemary Ames MANUAL DIFF REQ NO Normal [facility] Comment on above: Performed By: #### A 1C #### [facility] [address] [place] [address] Dr. Rosemary Ames MCH (RBC) [Entitic mass] 25.1 pg Critically low 26.7-34.0 [facility] Comment on above: Performed By: #### A 1C #### [facility] [address] [place] [address] Dr. Rosemary Ames MCHC (RBC) [Mass/Vol] 32.5 g/dL Normal 29.9-35.2 [facility] Comment on above: Performed By: #### A 1C #### [facility] [address] [place] [address] Dr. Rosemary Ames MCV (RBC) [Entitic vol] 77.2 fL Critically low 81.0-99.0 [facility] Comment on above: Performed By: #### A 1C #### [facility] [address] [place] [address] Dr. Rosemary Ames MONO # 0.7 103/ul Normal 0.3-0.8 [facility] Comment on above: Performed By: #### A 1C #### [facility] [address] [place] [address] Dr. Rosemary Ames Monocytes/100 WBC (Bld) 9.3 % Normal 1.7-12.0 [facility] Comment on above: Performed By: #### A 1C #### [facility] [address] [place] [address] Dr. Rosemary Ames NEUT # 6.2 103/ul Normal 1.4-6.5 [facility] Comment on above: Performed By: #### A 1C #### [facility] [address] [place] [address] Dr. Rosemary Ames Neutrophils/100 WBC (Bld) 82.9 % Critically high 43.0-75.0 [facility] Comment on above: Performed By: #### A 1C #### [facility] [address] [place] [address] Dr. Rosemary Ames Platelet mean volume (Bld) [Entitic vol] 9.8 fL Normal 9.5-13.5 [facility] Comment on above: Performed By: #### A 1C #### [facility] [address] [place] [address] Dr. Rosemary Ames PLT 246 103/ul Normal 150-450 [facility] Comment on above: Performed By: #### A 1C #### [facility] [address] [place] [address] Dr. Rosemary Ames RBC 5.14 106/ul Normal 4.20-5.40 [facility] Comment on above: Performed By: #### A 1C #### [facility] [address] [place] [address] Dr. Rosemary Ames WBC 7.4 103/ul Normal 4.0-11.0 [facility] Comment on above: Performed By: #### A 1C #### [facility] [address] [place] [address] Dr. Rosemary Ames [facility] SARS-CoV-2 (COVID-19) RNA EZEKIEL+probe Ql (Unsp spec) Not detected Normal NOT DETECTED [facility] Comment on above: [...] for this test is supported by the Sales Support Coordinator of Health and Human Service's declaration that [...] used). Performed By: #### A 1C #### [facility] [address] [place] [address] Dr. Rosemary Ames D-DIMERon 03-13-2022 D-DIMER 0.26 mg/L FEU Normal <=0.59 [facility] Comment on above: Performed By: #### T 7, LIPID, TSH, CMADM, BNP, CMP #### [facility] [address] [place] [address] Dr. Rosemary Ames D-DIMER COMMENTS SEE BELOW Normal [facility] Comment on above: Result Comment: Incr eases [...] 7, LIPID, TSH, CMADM, BNP, CMP #### [facility] [address] [place] [address] Dr. Rosemary Ames ER URINE PROFILEon 3 Bilirubin Ql (U) Negative Normal NEGATIVE [facility] Comment on above: Performed By: #### E RUR #### [facility] [address] [place] [address] Dr. Rosemary Ames Clarity (U) CLEAR Normal CLEAR [facility] Comment on above: Performed By: #### E RUR #### [facility] [address] [place] [address] Dr. Rosemary Ames Color (U) LT. YELLOW Normal YELLOW [facility] Comment on above: Performed By: #### E RUR #### [facility] [address] [place] [address] Dr. Rosemary MARTIN A micrscopic examination will be performed if indicated. Normal [facility] Comment on above: Performed By: #### E RUR #### [facility] [address] [place] [address] Dr. Rosemary Ames Glucose Ql (U) Negative Normal NEGATIVE [facility] Comment on above: Performed By: #### E RUR #### [facility] [address] [place] [address] Dr. Rosemary Ames Hemoglobin Ql (U) Negative Normal NEGATIVE [facility] Comment on above: Performed By: #### E RUR #### [facility] [address] [place] [address] Dr. Rosemary Ames Ketones Ql (U) Negative Normal NEGATIVE [facility] Comment on above: Performed By: #### E RUR #### [facility] [address] [place] [address] Dr. Rosemary Ames LEUKOCYTES Negative Normal NEGATIVE [facility] Comment on above: Performed By: #### E RUR #### [facility] [address] [place] [address] Dr. Rosemary Ames Nitrite Ql (U) Negative Normal NEGATIVE [facility] Comment on above: Performed By: #### E RUR #### [facility] [address] [place] [address] Dr. Rosemary Ames pH (U) 6.0 [pH] Normal 5-9 [facility] Comment on above: Performed By: #### E RUR #### [facility] [address] [place] [address] Dr. Rosemary Ames SPEC GRAVITY 1.015 Normal 1.005-<=1.02 5 [facility] Comment on above: Performed By: #### E RUR #### [facility] [address] [place] [address] Dr. Rosemary Ames UA PROTEIN Negative Normal NEGATIVE/ TRACE [facility] Comment on above: Performed By: #### E RUR #### [facility] [address] [place] [address] Dr. Rosemary Ames UR MICRO IND NOT INDICATED Normal [facility] Comment on above: Performed By: #### E RUR #### [facility] [address] [place] [address] Dr. Rosemary Ames Urobilinogen Qn (U) 0.2 {Vincent'U}/dL Normal 0.2 - 1. 0 [facility] Comment on above: Performed By: #### E RUR #### [facility] [address] [place] [address] Dr. Rosemary Ames INFLUENZA A AND B AGon 03-13 INFLUANEGH SEE BELOW Normal [facility] Comment on above: Result Comment: Nega tive for Flu A protein angiten. Infection due to Flu A cannot be ruled out. Flu A angiten in the sample may be below the detection limit of the test. Performed By: #### E RUR #### [facility] [address] [place] [address] Dr. Rosemary Ames INFLUBNEGH SEE BELOW Normal [facility] Comment on above: Result Comment: Nega tive for Flu B protein antigen. Infection due to Flu B cannot be ruled out. Flu B antigen in the sample may be below the detection limit of the test. Performed By: #### E RUR #### [facility] [address] [place] [address] Dr. Rosemary Ames INFLUENZA A AG Negative Normal NEGATIVE SEE COMMENT [facility] Comment on above: Performed By: #### E RUR #### [facility] [address] [place] [address] Dr. Rosemary Ames INFLUENZA B AG Negative Normal NEGATIVE SEE COMMENT [facility] Comment on above: Performed By: #### E RUR #### [facility] [address] [place] [address] Dr. Rosemary Ames LACTATE/LACTIC ACIDon 2022 Lactate [Moles/Vol] 2.0 mmol/L Critically high 0.4-1.9 [facility] Comment on above: Performed By: #### A 1C #### [facility] [address] [place] [address] Dr. Rosemary Ames LIPASEon 03-13-2022 Lipase [Catalytic activity/Vol] 79.0 U/L Normal 73.0-393.0 [facility] Comment on above: Performed By: #### A 1C #### [facility] [address] [place] [address] Dr. Rosemary Ames PREG HCG QUALon 03-13-2022 , QUAL Negative Normal NEGATIVE [facility] Comment on above: Performed By: #### A 1C #### [facility] [address] [place] [address] Dr. Rosemary Ames PROF 14(COMP METB)on 023 Albumin [Mass/Vol] 4.1 g/dL Normal 3.4-5.0 [facility] Comment on above: Performed By: #### A 1C #### [facility] [address] [place] [address] Dr. Rosemary Ames Albumin/Globulin [Mass ratio] 1.1 {ratio} Normal [facility] Comment on above: Performed By: #### A 1C #### [facility] [address] [place] [address] Dr. Rosemary Ames ALP [Catalytic activity/Vol] 77 U/L Normal 46-116 [facility] Comment on above: Performed By: #### A 1C #### [facility] [address] [place] [address] Dr. Rosemary Ames ALT [Catalytic activity/Vol] 149 U/L Critically high 14-59 [facility] Comment on above: Performed By: #### A 1C #### [facility] [address] [address] [address] Rosemary Ames Anion gap [Moles/Vol] 16.0 mmol/L Normal Th [facility] Comment on above: Performed By: #### A 1C #### [facility] [address] [address] [address] Rosemary Ames AST [Catalytic activity/Vol] 82 U/L Critically high 15-37 [facility] Comment on above: Performed By: #### A 1C #### [facility] [address] [place] [address] Dr. Rosemary Ames Bilirubin [Mass/Vol] 1.0 mg/dL Normal 0.2-1.0 [facility] Comment on above: Performed By: #### A 1C #### [facility] [address] [place] [address] Dr. Rosemary Ames Calcium [Mass/Vol] 9.1 mg/dL Normal 8.5-10.1 [facility] Comment on above: Performed By: #### A 1C #### [facility] [address] [place] [address] Dr. Rosemary Ames Chloride [Moles/Vol] 96 mmol/L Critically low 98-107 [facility] Comment on above: Performed By: #### A 1C #### [facility] [address] [address] [address] Rosemary Ames CO2 [Moles/Vol] 25.7 mmol/L Normal 21.0-32.0 [facility] Comment on above: Performed By: #### A 1C #### [facility] [address] [place] [address] Dr. Rosemary Ames Creatinine [Mass/Vol] 0.78 mg/dL Normal 0.55-1.02 [facility] Comment on above: Performed By: #### A 1C #### [facility] [address] [place] [address] Dr. Rosemary Ames EGFR-AF [place] >60 Normal >=60 [facility] Comment on above: Performed By: #### A 1C #### [facility] [address] [address] [address] Rosemary Ames EGFR-NON AF [place]IZ[place] >60 Normal >=60 [facility] Comment on above: Performed By: #### A 1C #### [facility] [address] [address] [address] Rosemary Ames Globulin (S) [Mass/Vol] 3.9 g/dL Normal [facility] Comment on above: Performed By: #### A 1C #### [facility] [address] [address] [address] Rosemary Ames Glucose [Mass/Vol] 190 mg/dL Critically high 74-106 T [facility] Comment on above: Performed By: #### A 1C #### [facility] [address] [place] [address] Dr. Rosemary Ames Potassium [Moles/Vol] 3.7 mmol/L Normal 3.5-5.1 [facility] Comment on above: Performed By: #### A 1C #### [facility] [address] [address] [address] Rosemary Ames Protein [Mass/Vol] 8.0 g/dL Normal 6.4-8.2 [facility] Comment on above: Performed By: #### A 1C #### [facility] [address] [address] [address] Rosemary Ames Sodium [Moles/Vol] 134 mmol/L Critically low 136-145 [facility] Comment on above: Performed By: #### A 1C #### [facility] [address] [address] [address] Rosemary Ames Urea nitrogen [Mass/Vol] 9.0 mg/dL Normal 7.0-18.0 [facility] Comment on above: Performed By: #### A 1C #### [facility] [address] [address] [address] Rosemary Ames Urea nitrogen/Creatinine [Mass ratio] 11.5 mg/mg Normal [facility] Comment on above: Performed By: #### A 1C #### [facility] [address] [place] [address] Dr. Rosemary Ames TROPONIN, HIGH SENSITIVITYon 03-13-2022 HSTROP <4.0 Normal 4.0-51.3 [facility] Comment on above: Result Comment: CUT- OFF POINTS HAVE BEEN ESTABLISHED BASED ON THE FOURTH UNIVERSAL DEFINITIONS OF MYOCARDIAL INFARCTION. THE UPPER REFERENCE LIMIT (URL) OF TROPONIN, DEFINED THE 99TH PERCENTILE OF cTnI DISTRIBUTION IN A REFERENCE POPULATION, HAS BEEN CONFIRMED THE DECISION THRESHOLD FOR [place] DIAGNOSIS. Previously reported as: 3.9 On 03/13/2022 18:24 By DM9 Performed By: #### A 1C #### [facility] [address] [place] [address] Dr. Rosemary Ames TSHon 03-13-2022 TSH 0.440 uIU/mL Normal 0.358-3.740 [facility] Comment on above: Performed By: #### A 1C #### [facility] [address] [place] [address] Dr. Rosemary Ames XR CHEST 1 Von [...] TUAN LEWIS Date: 2022-03-13 18:59 Normal [facility] INSULINon 12-11-2021 Insulin 40.7 uIU/mL Critically high 2.6-24.9 [facility] Comment on above: Performed By: #### A 1C #### [facility] [address] [place] [address] Dr. Rosemary Ames BNPon 12-10-2021 NT PRO BNP <11.1 Normal <=450.0 [facility] Comment on above: Performed By: #### T 7, LIPID, TSH, CMADM, BNP, CMP #### [facility] [address] [place] [address] Dr. Rosemary Ames CARDIAC RY ADMITon 022 CK [Catalytic activity/Vol] 80 U/L Normal 26-192 [facility] Comment on above: Performed By: #### T 7, LIPID, TSH, CMADM, BNP, CMP #### [facility] [address] [address] [address] Rosemary Ames CK.MB [Mass/Vol] 0.56 ng/mL Normal <=3.60 [facility] Comment on above: Performed By: #### T 7, LIPID, TSH, CMADM, BNP, CMP #### [facility] [address] [address] [address] Rosemary Ames HSTROP 5.3 pg/mL Normal 4.0-51.3 [facility] Comment on above: Result Comment: CUT- OFF POINTS HAVE BEEN ESTABLISHED BASED ON THE FOURTH UNIVERSAL DEFINITIONS OF MYOCARDIAL INFARCTION. THE UPPER REFERENCE LIMIT (URL) OF TROPONIN, DEFINED THE 99TH PERCENTILE OF cTnI DISTRIBUTION IN A REFERENCE POPULATION, HAS BEEN CONFIRMED THE DECISION THRESHOLD FOR [place] DIAGNOSIS. Performed By: #### T 7, LIPID, TSH, CMADM, BNP, CMP #### [facility] [address] [address] [address] Rosemary Ames RADHA 26 ng/mL Normal 9-82 [facility] Comment on above: Performed By: #### T 7, LIPID, TSH, CMADM, BNP, CMP #### [facility] [address] [address] [address] Rosemary Ames CBC AUTO DIFFon 12-10-2021 BASO # 0.0 103/ul Normal 0.0-0.1 [facility] Comment on above: Performed By: #### E RUR #### [facility] [address] [address] [address] Rosemary Ames Basophils/100 WBC (Bld) 0.4 % Normal 0.2-2.0 [facility] Comment on above: Performed By: #### E RUR #### [facility] [address] [address] [address] Rosemary Ames EO # 0.1 103/ul Normal 0.0-0.7 [facility] Comment on above: Performed By: #### E RUR #### [facility] [address] [place] [address] Dr. Rosemary Ames Eosinophils/100 WBC (Bld) 1.0 % Normal 0.9-7.0 [facility] Comment on above: Performed By: #### E RUR #### [facility] [address] [place] [address] Dr. Rosemary Ames Erythrocyte distribution width (RBC) [Ratio] 13.7 % Normal 11.0-15.0 [facility] Comment on above: Performed By: #### E RUR #### [facility] [address] [place] [address] Dr. Rosemary Ames Hematocrit (Bld) [Volume fraction] 40.9 % Normal 36.0-48.0 [facility] Comment on above: Performed By: #### E RUR #### [facility] [address] [place] [address] Dr. Rosemary Ames Hemoglobin (Bld) [Mass/Vol] 13.0 g/dL Normal 12.0-16.0 [facility] Comment on above: Performed By: #### E RUR #### [facility] [address] [place] [address] Dr. Rosemary Ames IG # 0.03 10e3/ul Normal 0.00-0.03 [facility] Comment on above: Performed By: #### E RUR #### [facility] [address] [place] [address] Dr. Rosemary Ames IG % 0.4 % Normal 0.0-0.5 [facility] Comment on above: Performed By: #### E RUR #### [facility] [address] [place] [address] Dr. Rosemary Ames LYMPH # 2.4 103/ul Normal 1.2-3.8 [facility] Comment on above: Performed By: #### E RUR #### [facility] [address] [place] [address] Dr. Rosemary Ames Lymphocytes/100 WBC (Bld) 30.3 % Normal 20.5-60.0 [facility] Comment on above: Performed By: #### E RUR #### [facility] [address] [place] [address] Dr. Rosemary Ames MANUAL DIFF REQ NO Normal [facility] Comment on above: Performed By: #### E RUR #### [facility] [address] [place] [address] Dr. Rosemary Ames MCH (RBC) [Entitic mass] 25.8 pg Critically low 26.7-34.0 [facility] Comment on above: Performed By: #### E RUR #### [facility] [address] [place] [address] Dr. Rosemary Ames MCHC (RBC) [Mass/Vol] 31.8 g/dL Normal 29.9-35.2 [facility] Comment on above: Performed By: #### E RUR #### [facility] [address] [place] [address] Dr. Rosemary Ames MCV (RBC) [Entitic vol] 81.2 fL Normal 81.0-99.0 [facility] Comment on above: Performed By: #### E RUR #### [facility] [address] [place] [address] Dr. Rosemary Ames MONO # 0.5 103/ul Normal 0.3-0.8 [facility] Comment on above: Performed By: #### E RUR #### [facility] [address] [place] [address] Dr. Rosemary Ames Monocytes/100 WBC (Bld) 6.1 % Normal 1.7-12.0 [facility] Comment on above: Performed By: #### E RUR #### [facility] [address] [place] [address] Dr. Rosemary Ames NEUT # 5.0 103/ul Normal 1.4-6.5 [facility] Comment on above: Performed By: #### E RUR #### [facility] [address] [place] [address] Dr. Rosemary Ames Neutrophils/100 WBC (Bld) 61.8 % Normal 43.0-75.0 [facility] Comment on above: Performed By: #### E RUR #### [facility] [address] [place] [address] Dr. Rosemary Ames Platelet mean volume (Bld) [Entitic vol] 9.9 fL Normal 9.5-13.5 [facility] Comment on above: Performed By: #### E RUR #### [facility] [address] [place] [address] Dr. Rosemary Ames PLT 284 103/ul Normal 150-450 [facility] Comment on above: Performed By: #### E RUR #### [facility] [address] [place] [address] Dr. Rosemary Ames RBC 5.04 106/ul Normal 4.20-5.40 [facility] Comment on above: Performed By: #### E RUR #### [facility] [address] [place] [address] Dr. Rosemary Ames WBC 8.0 103/ul Normal 4.0-11.0 [facility] Comment on above: Performed By: #### E RUR #### [facility] [address] [place] [address] Dr. Rosemary Ames FREE THYROXINE INDEX T7on FTI 2.31 Normal 1.30-4.50 [facility] Comment on above: Performed By: #### T 7, LIPID, TSH, CMADM, BNP, CMP #### [facility] [address] [place] [address] Dr. Rosemary Ames T3U 30.0 % Normal 30.0-39.0 [facility] Comment on above: Performed By: #### T 7, LIPID, TSH, CMADM, BNP, CMP #### [facility] [address] [place] [address] Dr. Rosemary Ames T4 [Mass/Vol] 7.70 ug/dL Normal 4.80-13.90 [facility] Comment on above: Performed By: #### T 7, LIPID, TSH, CMADM, BNP, CMP #### [facility] [address] [place] [address] Dr. Rosemary Ames GLYCOHEMOGLOBIN A1Con 2021 ADA RECOMMENDATION SEE BELOW Normal [facility] Comment on above: Result Comment: ADA RECOMMENDED LIMIT 4.0 - 6.0 ADA THERAPEUTIC TARGET < 7.0 ACTION SUGGESTED > 7.0 Performed By: #### A 1C #### [facility] [address] [address] [address] Rosemary Ames Glucose [Mass/Vol] 243 mg/dL Normal [facility] Comment on above: Performed By: #### A 1C #### [facility] [address] [address] [address] Rosemary Ames HbA1c (Bld) [Mass fraction] 10.1 % Critically high 4.5-6.2 [facility] Comment on above: Performed By: #### A 1C #### [facility] [address] [address] [address] Rosemary Ames IRONon 12-10-2021 Iron [Mass/Vol] 29.0 ug/dL Critically low 50.0-170.0 [facility] Comment on above: Performed By: #### A 1C #### [facility] [address] [address] [address] Rosemary Ames LIPID PROFILEon 12-10-2021 CHOL-HDL RATIO NORM SEE BELOW Normal [facility] Comment on above: Result Comment: 3.3 - 4.4 LOW RISK 4.4 - 7.1 AVERAGE RISK 7.1 - 11.0 MODERATE RISK >11.0 HIGH RISK Performed By: #### T 7, LIPID, TSH, CMADM, BNP, CMP #### [facility] [address] [address] [address] Rosemary Ames Cholesterol [Mass/Vol] 184 mg/dL Normal <=200 [facility] Comment on above: Performed By: #### T 7, LIPID, TSH, CMADM, BNP, CMP #### [facility] [address] [address] [address] Rosemary Ames Cholesterol in HDL [Mass/Vol] 44 mg/dL Normal 40-60 [facility] Comment on above: Performed By: #### T 7, LIPID, TSH, CMADM, BNP, CMP #### [facility] [address] [address] [address] Rosemary Ames Cholesterol in LDL [Mass/Vol] 94.6 mg/dL Normal [facility] Comment on above: Performed By: #### T 7, LIPID, TSH, CMADM, BNP, CMP #### [facility] [address] [address] [address] Rosemary Ames Cholesterol.total/Chol esterol in HDL [Mass ratio] 4.2 {ratio} Normal [facility] Comment on above: Performed By: #### T 7, LIPID, TSH, CMADM, BNP, CMP #### [facility] [address] [address] [address] Rosemary Ames HDL NORMAL > or = 60 mg/dl - LOW CARDIOVASCULAR RISK <40 mg/dl - HIGH CARDIOVASCULAR RISK Normal [facility] Comment on above: Performed By: #### T 7, LIPID, TSH, CMADM, BNP, CMP #### [facility] [address] [place] [address] Dr. Rosemary Ames LDL CALC NORMAL SEE BELOW Normal [facility] Comment on above: Result Comment: <100 mg/dl OPTIMAL 100 - 129 mg/dl NEAR OR ABOVE OPTIMAL 130 - 159 mg/dl BORDERLINE HIGH 160 - 189 mg/dl HIGH >190 mg/dl VERY HIGH Performed By: #### T 7, LIPID, TSH, CMADM, BNP, CMP #### [facility] [address] [address] [address] Rosemary Ames Triglyceride [Mass/Vol] 227 mg/dL Critically high <=150 [facility] Comment on above: Performed By: #### T 7, LIPID, TSH, CMADM, BNP, CMP #### [facility] [address] [address] [address] Rosemary Ames VLDL CALC 45.4 mg/dL Normal [facility] Comment on above: Performed By: #### T 7, LIPID, TSH, CMADM, BNP, CMP #### [facility] [address] [place] [address] Dr. Rosemary Ames PROF 14(COMP METB)on 022 Albumin [Mass/Vol] 4.1 g/dL Normal 3.4-5.0 [facility] Comment on above: Performed By: #### T 7, LIPID, TSH, CMADM, BNP, CMP #### [facility] [address] [place] [address] Dr. Rosemary Ames Albumin/Globulin [Mass ratio] 1.1 {ratio} Normal [facility] Comment on above: Performed By: #### T 7, LIPID, TSH, CMADM, BNP, CMP #### [facility] [address] [place] [address] Dr. Rosemary Ames ALP [Catalytic activity/Vol] 83 U/L Normal 46-116 [facility] Comment on above: Performed By: #### T 7, LIPID, TSH, CMADM, BNP, CMP #### [facility] [address] [place] [address] Dr. Rosemary Ames ALT [Catalytic activity/Vol] 166 U/L Critically high 14-59 [facility] Comment on above: Performed By: #### T 7, LIPID, TSH, CMADM, BNP, CMP #### [facility] [address] [place] [address] Dr. Rosemary Ames Anion gap [Moles/Vol] 13.9 mmol/L Normal [facility] Comment on above: Performed By: #### T 7, LIPID, TSH, CMADM, BNP, CMP #### [facility] [address] [place] [address] Dr. Rosemary Ames AST [Catalytic activity/Vol] 97 U/L Critically high 15-37 [facility] Comment on above: Performed By: #### T 7, LIPID, TSH, CMADM, BNP, CMP #### [facility] [address] [place] [address] Dr. Rosemary Ames Bilirubin [Mass/Vol] 0.7 mg/dL Normal 0.2-1.0 [facility] Comment on above: Performed By: #### T 7, LIPID, TSH, CMADM, BNP, CMP #### [facility] [address] [place] [address] Dr. Rosemary Ames Calcium [Mass/Vol] 9.2 mg/dL Normal 8.5-10.1 [facility] Comment on above: Performed By: #### T 7, LIPID, TSH, CMADM, BNP, CMP #### [facility] [address] [address] [address] Rosemary Ames Chloride [Moles/Vol] 101 mmol/L Normal 98-107 [facility] Comment on above: Performed By: #### T 7, LIPID, TSH, CMADM, BNP, CMP #### [facility] [address] [address] [address] Rosemary Ames CO2 [Moles/Vol] 27.5 mmol/L Normal 21.0-32.0 [facility] Comment on above: Performed By: #### T 7, LIPID, TSH, CMADM, BNP, CMP #### [facility] [address] [place] [address] Dr. Rosemary Ames Creatinine [Mass/Vol] 0.65 mg/dL Normal 0.55-1.02 [facility] Comment on above: Performed By: #### T 7, LIPID, TSH, CMADM, BNP, CMP #### [facility] [address] [address] [address] Rosemary Ames EGFR-AF [place]IZ[place] >60 Normal >=60 [facility] Comment on above: Performed By: #### T 7, LIPID, TSH, CMADM, BNP, CMP #### [facility] [address] [address] [address] Rosemary Ames EGFR-NON AF [place]IZ[place] >60 Normal >=60 [facility] Comment on above: Performed By: #### T 7, LIPID, TSH, CMADM, BNP, CMP #### [facility] [address] [address] [address] Rosemary Ames Globulin (S) [Mass/Vol] 3.8 g/dL Normal [facility] Comment on above: Performed By: #### T 7, LIPID, TSH, CMADM, BNP, CMP #### [facility] [address] [address] [address] Rosemary Ames Glucose [Mass/Vol] 299 mg/dL Critically high 74-106 T [facility] Comment on above: Performed By: #### T 7, LIPID, TSH, CMADM, BNP, CMP #### [facility] [address] [place] [address] Dr. Rosemary Ames Potassium [Moles/Vol] 4.4 mmol/L Normal 3.5-5.1 [facility] Comment on above: Performed By: #### T 7, LIPID, TSH, CMADM, BNP, CMP #### [facility] [address] [place] [address] Dr. Rosemary Ames Protein [Mass/Vol] 7.9 g/dL Normal 6.4-8.2 [facility] Comment on above: Performed By: #### T 7, LIPID, TSH, CMADM, BNP, CMP #### [facility] [address] [place] [address] Dr. Rosemary Ames Sodium [Moles/Vol] 138 mmol/L Normal 136-145 [facility] Comment on above: Performed By: #### T 7, LIPID, TSH, CMADM, BNP, CMP #### [facility] [address] [place] [address] Dr. Rosemary Ames Urea nitrogen [Mass/Vol] 8.0 mg/dL Normal 7.0-18.0 [facility] Comment on above: Performed By: #### T 7, LIPID, TSH, CMADM, BNP, CMP #### [facility] [address] [place] [address] Dr. Rosemary Ames Urea nitrogen/Creatinine [Mass ratio] 12.3 mg/mg Normal [facility] Comment on above: Performed By: #### T 7, LIPID, TSH, CMADM, BNP, CMP #### [facility] [address] [place] [address] Dr. Rosemary Ames TSHon 12-10-2021 TSH 0.921 uIU/mL Normal 0.358-3.740 [facility] Comment on above: Performed By: #### T 7, LIPID, TSH, CMADM, BNP, CMP #### [facility] [address] [place] [address] Dr. Rosemary Ames [facility] 3D JESICA CA Don 11-29-2021 [facility] 3D JESICA CAD Patient: TESS ASHLEY. Exam Date: 11/29/2021 : 1995 Gender:F Ordering : DR ALEKSEY LAUREANO . Admission #: [id number] Family : Order #: [id number] CLICK HERE TO VIEW EXAM RADIOLOGY REPORT [...] breast cancer at age 41. LOCATION: [facility] BREAST COMPOSITION: Heterogeneously dense,which may [...] M.D. on 11/29/2021 at 09:59 Normal [facility] US BREAST RIGHT LIMITEDon US BREAST RIGHT LIMITED Patient: TESS ASHLEY. Exam Date: 11/29/2021 : 1995 Gender:F Ordering : DR ALEKSEY LAUREANO . Admission #: [id number] Family : Order #: [id number] CLICK HERE TO VIEW EXAM RADIOLOGY REPORT [...] breast cancer at age 41. LOCATION: [facility] BREAST COMPOSITION: Heterogeneously dense,which may [...] M.D. on 11/29/2021 at 09:59 Normal [facility] MRI BRAIN WO CONon MRI [...] SEBLE BIGGS Date: 2021-09-13 12:13 Normal [facility] Glucose (Bld) [Mass/Vol]on 0 08-27-2021 Glucose [Mass/Vol] 188 mg/dL [facility] Interpretation and review of laboratory results Abnormal [facility] HbA1c (Bld) [Mass fraction]o n 08-27-2021 Interpretation and review of laboratory results Abnormal [facility] POC Hemoglobin A1Con 022 HbA1c (Bld) [Mass fraction] 7.7 % Abnormal 4 - 6 % [facility] SEROLOGYOrdered By: Fabian echeverria on 08-24-2021 [...] by: SYLVESTER PRINGLE Date: 2021-08-15 16:18 Normal [facility] US KIDNEYS BLADDERon US KIDNEYS BLADDER EXAMINATION: [...] MAY PILLAI Date: 2021-06-13 10:16 Normal [facility] Testosterone Free and Total by LC-MS/MSon 02-04-2021 Sex Hormone Binding Globulin 11 nmol/L Low 30-135 [facility] Comment on above: Result Comment: REFE RENCE INTERVAL: Sex Hormone Binding Globulin Access complete set of age- and/or gender-specific reference intervals for this test in the [facility] Test Directory ([employer]). Testosterone, Free LC-MS/MS 9.1 pg/mL Critically high 0.8-7.4 [facility] Comment on above: Result Comment: To [...] reference intervals for this test in the [facility] Test Directory ([employer]). This test was developed and its performance characteristics determined by [facility]. It has not been cleared or approved by the [place] Food and Drug Administration. This test was performed in a CLIA certified laboratory and is intended for clinical purposes. Performed By: [facility] [address] [place] [id number] Director Export: Kiersten Jones MD Testosterone, LC-MS/MS 35 ng/dL Normal 9-55 [facility] Comment on above: Result Comment: Oscar rutherford Testosterone, Females 18 years and older Premenopausal 9-55 ng/dL Postmenopausal 5-32 ng/dL REFERENCE INTERVAL: Testosterone, LC-MS/MS Access complete set of age- and/or gender-specific reference intervals for this test in the [facility] Test Directory ([employer]). This test was developed and its performance characteristics determined by [facility]. It has not been cleared or approved by the [place] Food and Drug Administration. This test was performed in a CLIA certified laboratory and is intended for clinical purposes. Cortisol Daljit 01-31-2021 Cortisol AM 11.0 ug/dL Normal 6.2-19.4 [facility] Comment on above: Performed By: #### C AKSHAT #### [facility] [address] [place] [id number] Vital Signs Date Time Vital Sign Value Performing Clinician Facility 11-25-2024 10:35-0400 Body mass index (BMI) [Ratio] 48.29 kg/m2 [employer] Work Phone: [facility] 11-25-2024 10:35-0400 Body weight 112.15 kg [employer] Phone: [facility] 11-25-2024 10:35-0400 Diastolic blood pressure 82 mm[Hg] [employer] Phone: [facility] 11-25-2024 10:35-0400 Systolic blood pressure 136 mm[Hg] Mario Zoraida DO Work Phone: [facility] 10-20-2024 15:22-0400 Body height 152.4 cm Mario Zoraida DO Work Phone: [facility] 10-20-2024 15:22-0400 Body mass index (BMI) [Ratio] 48.24 kg/m2 Mario Zoraida DO Work Phone: [facility] 10-20-2024 15:22-0400 Body weight 112.04 kg Mario Zoraida DO Work Phone: [facility] 10-20-2024 15:22-0400 Diastolic blood pressure 78 mm[Hg] Mario Zoraida DO Work Phone: [facility] 10-20-2024 15:22-0400 Systolic blood pressure 128 mm[Hg] Mario Zoraida DO Work Phone: [facility] 05-31-2024 10:40-0400 Body height 152.4 cm Leana Burr MD Work Phone: [facility] 05-31-2024 10:40-0400 Body mass index (BMI) [Ratio] 48.63 kg/m2 Leana Burr MD Work Phone: [facility] 05-31-2024 10:40-0400 Body weight 112.95 kg Leana Burr MD Work Phone: [facility] 05-31-2024 10:40-0400 Diastolic blood pressure 85 mm[Hg] Leana Burr MD Work Phone: [facility] 05-31-2024 10:40-0400 Heart rate 86 /min Leana Burr MD Work Phone: [facility] 05-31-2024 10:40-0400 Systolic blood pressure 128 mm[Hg] Leana Burr MD Work Phone: [employer] [facility] 05-28-2024 19:00-0400 Diastolic blood pressure 80 mm[Hg] [facility] 05-28-2024 19:00-0400 Mean blood pressure 103 mm[Hg] [facility] 05-28-2024 19:00-0400 Systolic blood pressure 148 mm[Hg] [facility] 05-28-2024 18:33-0400 Diastolic blood pressure 83 mm[Hg] [facility] 05-28-2024 18:33-0400 Systolic blood pressure 139 mm[Hg] [facility] 05-28-2024 18:33-0400 Blood Pressure Location [facility] 05-28-2024 18:30-0400 Heart rate 108 /min [facility] 05-28-2024 18:30-0400 SaO2% (BldA) [Mass fraction] 98 % [facility] 05-28-2024 18:00-0400 Respiratory rate 16 /min [facility] 05-28-2024 17:59-0400 Heart rate 102 /min [facility] 05-28-2024 17:59-0400 SaO2% (BldA) [Mass fraction] 99 % [facility] 05-28-2024 16:54-0400 Body temperature 98.24 [degF] [facility] 05-28-2024 16:54-0400 Diastolic blood pressure 71 mm[Hg] [facility] 05-28-2024 16:54-0400 Heart rate 93 /min [facility] 05-28-2024 16:54-0400 Respiratory rate 18 /min [facility] 05-28-2024 16:54-0400 SaO2% (BldA) [Mass fraction] 96 % [facility] 05-28-2024 16:54-0400 Systolic blood pressure 133 mm[Hg] [facility] 01-26-2024 11:17-0500 Body mass index (BMI) [Ratio] 49.1 kg/m2 Mario Zoraida DO Work Phone: [facility] 01-26-2024 11:17-0500 Body weight 114.03 kg Mario Zoraida DO Work Phone: [facility] 01-26-2024 11:17-0500 Diastolic blood pressure 78 mm[Hg] Mario Zoraida DO Work Phone: [facility] 01-26-2024 11:17-0500 Systolic blood pressure 122 mm[Hg] Mario Zoraida DO Work Phone: [facility] 11-26-2023 14:30-0400 Body mass index (BMI) [Ratio] 49.41 kg/m2 Mario Zoraida DO Work Phone: [facility] [facility] 11-26-2023 14:30-0400 Body weight 114.76 kg Mario Zoraida DO Work Phone: [facility] 11-26-2023 14:30-0400 Diastolic blood pressure 80 mm[Hg] Mario Zoraida DO Work Phone: [facility] 11-26-2023 14:30-0400 Systolic blood pressure 130 mm[Hg] Mario Zoraida DO Work Phone: [facility] 09-17-2023 11:24-0400 Diastolic blood pressure 81 mm[Hg] Althea Jeong MD Work Phone: [facility] 09-17-2023 11:24-0400 Heart rate 98 /min Althea Jeong MD Work Phone: [facility] 09-17-2023 11:24-0400 Systolic blood pressure 137 mm[Hg] Althea Jeong MD Work Phone: [facility] 08-22-2023 00:15-0400 Hourly Rounding [facility] Comment on above: Result Comment: Patient discharged off u nit in wheelchair. 08-22-2023 00:00-0400 Diastolic blood pressure 47 mm[Hg] [facility] 08-22-2023 00:00-0400 Heart rate 122 /min [facility] 08-22-2023 00:00-0400 Mean blood pressure 71 mm[Hg] [facility] 08-22-2023 00:00-0400 Systolic blood pressure 120 mm[Hg] [facility] 08-21-2023 23:45-0400 Blood Pressure Location [facility] 08-21-2023 23:45-0400 Diastolic blood pressure 52 mm[Hg] [facility] 08-21-2023 23:45-0400 Heart rate 119 /min [facility] 08-21-2023 23:45-0400 Mean blood pressure 78 mm[Hg] [facility] 08-21-2023 23:45-0400 Respiratory rate 16 /min [facility] 08-21-2023 23:45-0400 Systolic blood pressure 130 mm[Hg] [facility] 08-21-2023 23:36-0400 Hourly Rounding [facility] Comment on above: Result Comment: Patient sitting in bed. Call light within reach. 08-21-2023 23:30-0400 Body temperature 97.88 [degF] [facility] 08-21-2023 23:30-0400 Diastolic blood pressure 69 mm[Hg] [facility] 08-21-2023 23:30-0400 Heart rate 135 /min [facility] 08-21-2023 23:30-0400 Mean blood pressure 82 mm[Hg] [facility] 08-21-2023 23:30-0400 Respiratory rate 18 /min [facility] 08-21-2023 23:30-0400 Systolic blood pressure 107 mm[Hg] [facility] 08-21-2023 22:09-0400 Hourly Rounding [facility] Comment on above: Result Comment: Labetalol given for BP. 08-21-2023 21:30-0400 Body temperature 98.42 [degF] [facility] 08-21-2023 20:20-0400 Diastolic blood pressure 91 mm[Hg] [facility] 08-21-2023 20:20-0400 Heart rate 138 /min [facility] 08-21-2023 20:20-0400 Mean blood pressure 110 mm[Hg] [facility] 08-21-2023 20:20-0400 Respiratory rate 20 /min [facility] 08-21-2023 20:20-0400 SaO2% (BldA) [Mass fraction] 97 % [facility] 08-21-2023 20:20-0400 Systolic blood pressure 149 mm[Hg] [facility] 08-21-2023 19:43-0400 Diastolic blood pressure 86 mm[Hg] [facility] 08-21-2023 19:43-0400 Heart rate 141 /min [facility] 08-21-2023 19:43-0400 Mean blood pressure 110 mm[Hg] [facility] 08-21-2023 19:43-0400 Respiratory rate 18 /min [facility] 08-21-2023 19:43-0400 SaO2% (BldA) [Mass fraction] 97 % [facility] 08-21-2023 19:43-0400 Systolic blood pressure 158 mm[Hg] [facility] 08-21-2023 19:22-0400 Body temperature 98.6 [degF] [facility] 08-21-2023 19:22-0400 Diastolic blood pressure 103 mm[Hg] [facility] 08-21-2023 19:22-0400 Heart rate 131 /min [facility] 08-21-2023 19:22-0400 Mean blood pressure 118 mm[Hg] [facility] 08-21-2023 19:22-0400 Respiratory rate 16 /min [facility] 08-21-2023 19:22-0400 SaO2% (BldA) [Mass fraction] 97 % [facility] 08-21-2023 19:22-0400 Systolic blood pressure 148 mm[Hg] [facility] 08-21-2023 19:07-0400 Body temperature 99.14 [degF] [facility] 08-21-2023 19:07-0400 Heart rate 140 /min [facility] 08-21-2023 19:07-0400 Respiratory rate 22 /min [facility] 08-13-2023 13:52-0400 Body mass index (BMI) [Ratio] 55.11 kg/m2 Leana Burr MD Work Phone: [facility] 08-13-2023 13:52-0400 Body weight 128 kg Leana Burr MD Work Phone: [facility] 08-13-2023 13:52-0400 Diastolic blood pressure 74 mm[Hg] Leana Burr MD Work Phone: [facility] 08-13-2023 13:52-0400 Heart rate 109 /min Leana Burr MD Work Phone: [facility] 08-13-2023 13:52-0400 Systolic blood pressure 123 mm[Hg] Leana Burr MD Work Phone: [facility] 07-10-2023 10:47-0400 Body mass index (BMI) [Ratio] 52.14 kg/m2 Leana Burr MD Work Phone: [facility] [employer] [facility] 07-10-2023 10:47-0400 Body weight 121.11 kg Leana Burr MD Work Phone: [facility] [employer] [facility] 07-10-2023 10:47-0400 Diastolic blood pressure 74 mm[Hg] Leana Burr MD Work Phone: [facility] [employer] [facility] 07-10-2023 10:47-0400 Heart rate 99 /min Leana Burr MD Work Phone: [facility] [employer] [facility] 07-10-2023 10:47-0400 Systolic blood pressure 135 mm[Hg] Leana Burr MD Work Phone: [facility] [employer] [facility] 06-23-2023 09:29-0400 Body mass index (BMI) [Ratio] 51.25 kg/m2 Leana Burr MD Work Phone: [facility] [employer] [facility] 06-23-2023 09:29-0400 Body weight 119.02 kg Leana Burr MD Work Phone: [facility] [employer] [facility] 06-23-2023 09:29-0400 Diastolic blood pressure 77 mm[Hg] Leana Burr MD Work Phone: [facility] [employer] [facility] 06-23-2023 09:29-0400 Heart rate 76 /min Leana Burr MD Work Phone: [facility] [employer] [facility] 06-23-2023 09:29-0400 Systolic blood pressure 132 mm[Hg] Leana Burr MD Work Phone: [facility] [employer] [facility] 05-07-2023 15:08-0500 Body height 152.4 cm Opal Heath [employer] Work Phone: [facility] [employer] [facility] 05-07-2023 15:08-0500 Body mass index (BMI) [Ratio] 48.43 kg/m2 Opal Heath [employer] Work Phone: [facility] [employer] [facility] 05-07-2023 15:08-0500 Body weight 112.49 kg Opal Heath APRN-[employer] Work Phone: [facility] 05-07-2023 15:08-0500 Diastolic blood pressure 64 mm[Hg] Opal Heath [employer] Work Phone: [facility] 05-07-2023 15:08-0500 Heart rate 111 /min Opal Heath [employer] Work Phone: [facility] 05-07-2023 15:08-0500 Systolic blood pressure 136 mm[Hg] Opal Heath [employer] Work Phone: [facility] 05-07-2023 14:16-0500 Body height 152.4 cm [facility] 05-07-2023 14:16-0500 Body mass index (BMI) [Ratio] 48.63 kg/m2 [facility] 05-07-2023 14:16-0500 Body weight 112.95 kg [facility] 04-17-2023 10:25-0500 Body mass index (BMI) [Ratio] 47.85 kg/m2 Mario Zoraida DO Work Phone: [facility] 04-17-2023 10:25-0500 Body weight 111.13 kg Mario Zoraida DO Work Phone: [facility] 04-17-2023 10:25-0500 Diastolic blood pressure 76 mm[Hg] Mario Zoraida DO Work Phone: [facility] 04-17-2023 10:25-0500 Systolic blood pressure 122 mm[Hg] Mario Zoraida DO Work Phone: [facility] 08-27-2021 11:09-0400 Body height 152.4 cm Gregorio Floyd MD Work Phone: [facility] 08-27-2021 11:09-0400 Body mass index (BMI) [Ratio] 46.68 kg/m2 Gregorio Floyd MD Work Phone: [facility] 08-27-2021 11:09-0400 Body weight 108.41 kg Gregorio Floyd MD Work Phone: [facility] 08-27-2021 11:09-0400 Diastolic blood pressure 86 mm[Hg] Gregorio Floyd MD Work Phone: [facility] 08-27-2021 11:09-0400 Heart rate 97 /min Gregorio Floyd MD Work Phone: [facility] 08-27-2021 11:09-0400 Systolic blood pressure 125 mm[Hg] Gregorio Floyd MD Work Phone: [facility] 08-25-2021 14:00-0400 Diastolic blood pressure 81 mm[Hg] [facility] 08-25-2021 14:00-0400 Heart rate 85 /min [facility] 08-25-2021 14:00-0400 Mean blood pressure 100 mm[Hg] [facility] 08-25-2021 14:00-0400 Respiratory rate 16 /min [facility] 08-25-2021 14:00-0400 SaO2% (BldA) [Mass fraction] 98 % [facility] 08-25-2021 14:00-0400 Systolic blood pressure 138 mm[Hg] [facility] 08-25-2021 01:00-0400 Diastolic blood pressure 85 mm[Hg] [facility] 08-25-2021 01:00-0400 Heart rate 87 /min [facility] 08-25-2021 01:00-0400 Respiratory rate 16 /min Tyler [facility] 08-25-2021 01:00-0400 SaO2% (BldA) [Mass fraction] 98 % [facility] With [facility] 08-25-2021 01:00-0400 Systolic blood pressure 140 mm[Hg] Tyler [facility] 08-25-2021 00:00-0400 Diastolic blood pressure 89 mm[Hg] Merged With [facility] 08-25-2021 00:00-0400 Heart rate 95 /min Merged With [facility] 08-25-2021 00:00-0400 SaO2% (BldA) [Mass fraction] 97 % [facility] 08-25-2021 00:00-0400 Systolic blood pressure 149 mm[Hg] Merged With [facility] 08-24-2021 22:50-0400 Body temperature 100.22 [degF] [facility] Encounters Encounter Date Encounter Type Care Provider Facility Start: 11-25-2024 End: 12-07-2024 External Result Encounter Mario Mclaino [employer] Work Phone: [facility] External Department Unsolicited Start: [...] examination done Mario Mclaino DO Work Phone: [facility] Start: 11-25-2024 End: 11-25-2024 ambulatory MARIO ZORAIDA Not Available Start: 10-21-2024 End: 10-21-2024 ambulatory MARIO ZORAIDA Not Available Start: 10-20-2024 End: 10-20-2024 Office outpatient visit 15 minutes Mario Zoraida DO Work Phone: [facility] [place] [facility] Comment on above: Menorrhagia with reg ular cycle (Primary Dx); Pelvic pain in female; Intrauterine device surveillance; Exposure to STD Start: 10-20-2024 End: 10-20-2024 ambulatory MARIO ZORAIDA Not Available Start: 10-20-2024 End: 10-20-2024 Bamboo flowsheet Mario Zoraida DO Work Phone: [facility] [place] Start: 10-20-2024 End: 10-22-2024 Bamboo flowsheet Mario Zoraida DO Work Phone: [facility] [place] [facility] Start: 10-20-2024 End: 10-22-2024 External Result Encounter Mario Zoraida DO Work Phone: [facility] External Department Unsolicited Start: 08-17-2024 End: 08-17-2024 Orders Only Leana Burr MD Work Phone: [facility] [place] [facility] Start: 08-12-2024 End: 08-12-2024 Telephone encounter Mercedes Cortez [employer] [facility] [place] [facility] Start: 07-26-2024 End: 07-26-2024 Telephone encounter Mercedes Cortez [facility] [place] [facility] Start: 06-23-2024 End: 06-24-2024 Refill Leana Burr MD Work Phone: [facility] [place] [facility] Comment on above: Type 2 diabetes naz itus in , second trimester Start: 05-31-2024 End: 05-31-2024 ambulatory LEANA BURR [facility] Start: 05-31-2024 End: 05-31-2024 Office outpatient visit 25 minutes Leana Burr MD Work Phone: [facility] [place] [facility] Comment on above: Type 2 diabetes naz itus with hyperglycemia, with long-term current use of insulin ([facility]) Start: 05-28-2024 End: 05-28-2024 Emergency department patient visit Angelica Navarrete [facility] Start: 05-28-2024 End: 05-28-2024 Telephone encounter [facility] [place] [facility] Comment on above: Type 2 diabetes naz itus with hyperglycemia, with long-term current use of insulin ([facility]) (Primary Dx) Start: 04-14-2024 End: 04-14-2024 Telephone [facility] [place] [facility] Start: 04-07-2024 End: 04-07-2024 Telephone [facility] [place] [facility] Start: 01-26-2024 End: 01-26-2024 Bamboo flowsheet Mario Zoraida DO Work Phone: [facility] Start: 01-26-2024 End: 01-26-2024 Bamboo flowsheet Mario Zoraida DO Work Phone: [facility] Start: 01-26-2024 End: 01-26-2024 Telephone encounter [facility] [place] [facility] Start: 01-26-2024 End: 01-26-2024 Office outpatient visit 15 minutes Mario Zoraida DO Work Phone: [facility] Comment on above: Intrauterine device surveillance Start: 01-26-2024 End: 01-26-2024 ambulatory MARIO ZORAIDA Not Available Start: 01-19-2024 End: 01-19-2024 Orders Only Leana Burr MD [facility] [place] [facility] Comment on above: Type 2 diabetes naz itus with hyperglycemia, with long-term current use of insulin ([facility]) Start: 01-15-2024 End: 01-15-2024 Office outpatient visit 25 minutes Leana Burr MD Work Phone: [facility] [place] [facility] Comment on above: Type 2 diabetes naz itus with hyperglycemia, with long-term current use of insulin ([facility]) (Primary Dx); BMI 50.0-59.9, adult ([facility]); Primary hypertension Start: 01-15-2024 End: 01-15-2024 ambulatory LEANA BURR [facility] Start: 12-30-2023 End: 12-30-2023 Telephone encounter Kike Angel[facility] Start: 11-26-2023 End: 11-26-2023 Patient encounter procedure Mario Zoraida DO Work Phone: [facility] Comment on above: Encounter for insert ion of mirena IUD; Encounter for insertion of intrauterine contraceptive device (IUD) Start: 10-12-2023 End: 10-12-2023 Encounter [facility] - GEN 3 ICU Start: 10-07-2023 End: 10-07-2023 Encounter [facility] - FRAN 3W NICU Start: 10-02-2023 End: 10-02-2023 Office outpatient new 20 minutes Clarice MUHAMMAD Work Phone: [facility] Comment on above: History of (Primary Dx); Pre-eclampsia superimposed on chronic hypertension, delivered Start: 09-26-2023 End: 09-26-2023 ambulatory KRISH ESCOBEDO [facility] Start: 09-25-2023 End: 10-01-2023 Evaluation and management of inpatient MAY CHANG [facility] Start: 09-25-2023 End: 09-25-2023 Telephone encounter Joann Walsh RN Work Phone: [facility] Start: 09-24-2023 End: 09-24-2023 Telephone encounter Wendy Lambert RN [facility] Start: 09-17-2023 End: 09-17-2023 Office outpatient visit 25 minutes Althea Jeong MD Work Phone: [facility] [place] Comment on above: Type 2 diabetes naz itus in third trimester, antepartum (Primary Dx); Insulin pump in place; Polyhydramnios in third trimester complication, single or unspecified fetus; Chronic hypertension complicating or reason for care during , third trimester; Obesity during ; BMI 50.0-59.9, adult ([facility]); Depression affecting , antepartum; 34 weeks gestation of Start: 09-17-2023 End: 09-17-2023 ambulatory [facility] Start: 08-23-2023 End: 09-23-2023 Pre-admission assessment [facility] Start: 08-22-2023 End: 08-22-2023 Orders Only Leana Burr MD Work Phone: [facility] Start: 08-21-2023 End: 08-22-2023 ambulatory [facility] [place] Start: 08-21-2023 End: 08-22-2023 OB Triage [facility] Start: 08-21-2023 End: 08-21-2023 Emergency department patient visit Tyler Sum[facility] Start: 08-20-2023 End: 08-20-2023 Office outpatient visit 10 minutes Sg Robertson MD Work Phone: [facility] Comment on above: Type 2 diabetes naz itus in third trimester, antepartum (Primary Dx); Chronic hypertension complicating or reason for care during , third trimester Start: 08-20-2023 End: 08-20-2023 ambulatory GS ROBERTSON [facility] Start: 08-13-2023 End: 08-13-2023 Office outpatient visit 25 minutes Leana Burr MD Work Phone: [facility] [place] [facility] Comment on above: with type 2 diabetes mellitus in third trimester (Primary Dx) Start: 08-13-2023 End: 08-13-2023 ambulatory [facility] Start: 08-07-2023 End: 08-07-2023 Orders Only Leana Burr MD Work Phone: [facility] [place] [facility] Start: 07-29-2023 End: 07-29-2023 Office outpatient visit 25 minutes Leana Burr MD Work Phone: [facility] [place] [facility] Comment on above: with type 2 diabetes mellitus in third trimester (Primary Dx); HTN in , chronic Start: 07-29-2023 End: 07-29-2023 ambulatory [facility] Start: 07-23-2023 End: 07-23-2023 Office outpatient visit 25 minutes Leana Burr MD Work Phone: [facility] [place] [facility] Comment on above: Type 2 diabetes naz itus in , second trimester (Primary Dx); BMI 50.0-59.9, adult ([facility]); Obesity during Start: 07-23-2023 End: 07-23-2023 ambulatory [facility] Start: 07-22-2023 End: 07-22-2023 Office consultation new/estab patient 80 min Lottie Cam MD Work Phone: [facility] Comment on above: 26 weeks gestation o f (Primary Dx); Type 2 diabetes mellitus in , second trimester; Hypertension affecting in second trimester; Obesity during ; BMI 50.0-59.9, adult ([facility]); Depression affecting , antepartum Start: 07-22-2023 End: 07-22-2023 ambulatory LOTTIE CAM [facility] Start: 07-17-2023 End: 07-17-2023 Orders Only Leana Burr MD Work Phone: [facility] Start: 07-10-2023 End: 07-10-2023 Office outpatient visit 25 minutes Leana Burr MD Work Phone: [facility] Comment on above: Type 2 diabetes nza itus in , second trimester (Primary Dx); HTN in , chronic Start: 07-10-2023 End: 07-10-2023 ambulatory [facility] Start: 07-01-2023 End: 07-01-2023 Telephone encounter Gladys Daniel LPN [facility] Start: 06-30-2023 End: 06-30-2023 Office outpatient visit 25 minutes Leana Burr MD Work Phone: [facility] Comment on above: Type 2 diabetes naz itus in , second trimester (Primary Dx); HTN in , chronic Start: 06-30-2023 End: 06-30-2023 ambulatory [facility] Start: 06-24-2023 End: 06-24-2023 Orders Only Leana Burr MD Work Phone: [facility] [place] Comment on above: Type 2 diabetes naz itus in , second trimester (Primary Dx) Start: 06-23-2023 End: 06-23-2023 ambulatory [facility] Start: 06-23-2023 End: 06-23-2023 Office outpatient visit 25 minutes Leana Burr MD [facility] Comment on above: Type 2 diabetes naz itus in , second trimester (Primary Dx) Start: 06-23-2023 End: 06-23-2023 ambulatory [facility] Start: 06-11-2023 End: 06-26-2023 ambulatory [facility]placed by [facility] Comment on above: Type 2 diabetes naz itus in , second trimester (Primary Dx); Insulin pump in place; HTN in , chronic Start: 06-09-2023 Orders Only Leana franco MD Work Phone: [facility] [place] [facility] Start: 06-04-2023 Orders Only Leana franco MD Work Phone: [facility] [place] [facility] Comment on above: Type 2 diabetes naz itus in , second trimester (Primary Dx) Start: 05-29-2023 End: 05-29-2023 Office outpatient visit 25 minutes Leana Burr MD Work Phone: [facility] [place] [facility] Comment on above: Type 2 diabetes naz itus in , second trimester (Primary Dx) Start: 05-20-2023 Orders Only Mary Qureshi APRN-CNM Work Phone: [facility] Comment on above: Type 2 diabetes naz itus in , second trimester (Primary Dx) Start: 05-20-2023 End: 05-20-2023 Office outpatient new 45 minutes Leana Burr MD Work Phone: [facility] [place] [facility] Comment on above: Type 2 diabetes naz itus in , second trimester (Primary Dx) Start: 05-13-2023 Telephone encounter Joann pastrana RN Work Phone: [facility] Start: 05-12-2023 Telephone encounter Joann pastrana RN Work Phone: [facility] Start: 05-08-2023 Orders Only Queta Johnson r[facility]- Medicine at [facility] Comment on above: Type 2 diabetes naz itus in , second trimester (Primary Dx) Start: 05-07-2023 End: 05-07-2023 Office outpatient visit 25 minutes Opal Heath [employer] Work Phone: [facility] Comment on above: Type 2 diabetes naz itus in , second trimester (Primary Dx); Insulin pump in place; HTN in , chronic Start: 05-07-2023 End: 05-07-2023 ambulatory [facility] Comment on above: Type 2 diabetes naz itus in , second trimester (Primary Dx); Pre-existing type 2 diabetes mellitus during in first trimester Start: 04-23-2023 Chart abstracting Opal falk [employer] Work Phone: [facility] Start: 04-23-2023 Telephone encounter Danyell Ortiz RN [facility]- [facility] Start: 04-17-2023 End: 04-17-2023 Office [...] Start: 08-27-2021 End: 08-27-2021 ambulatory ALEKSEY LAUREANO [facility] Start: 08-27-2021 End: 08-27-2021 Office outpatient new 60 minutes Aleksey Laureano MD Work Phone: [facility] Comment on above: Type 2 diabetes naz itus with hyperglycemia, unspecified whether jail insulin use (HCC) (Primary Dx); Thyroid disorder; Hair loss Start: 08-24-2021 End: 08-25-2021 Emergency department patient visit Tyler OjedaKristi Summers [facility] Start: 08-15-2021 End: 08-15-2021 ambulatory GREGORY FAN . Facility:[facility] Start: 06-13-2021 End: 06-14-[address] ALEKSEY LAUREANO . Facility:[facility] Start: 05-04-2021 Transcribe Orders Aleksey Laureano MD Work Phone: [facility] Comment on above: Thyroid [...] Phone: Start: 04-01-2023 Antibody screen Bebe newton Ivana [employer] Work Phone: Start: 04-01-2023 Bacteria identified in [...] section History of C-sectio n Clarice Vaughn [employer] Work Phone: None (qualifier value) Tyler Summers Plan of Treatment Date Care Activity Detail Author Start: 05-11-2026 Screening for malign ant neoplasm of cervix Pap Smear [facility] Start: 05-31-2025 Adult BMI Screening Adult BMI Screen ing [facility] Start: 05-31-2025 Tobacco Screening Tobacco Screening [facility] Start: 01-14-2025 Tobacco Screening Tobacco Screening [facility] Start: 01-06-2025 End: 01-06-2025 Patient encounter procedure 01/06/2025 11:20 AM EDT Office Visit [facility] [address] [place] [phone] Shwetha Walton PA [address] [place] [address] [facility] Start: 11-25-2024 End: 11-25-2024 Patient encounter procedure 11/25/2024 10:30 AM EDT Procedure Visit [facility] [address] [place] [address] Mario Conway, [address] [facility] [place] [address] [facility] Start: 11-08-2024 Influenza vaccination Influenza Vacc [facility] Start: 10-21-2024 End: 10-21-2024 Professional / ancillary services management 10/21/2024 2:30 PM EDT Ancillary Procedure [facility] [address] [place] [phone] [facility] Start: 10-20-2024 End: 10-20-2024 Patient encounter procedure 10/20/2024 3:10 PM EDT Office Visit [facility] [address] [place] [phone] Mario Conway, DO [address] [place] [address] Arrived [facility] Comment on above: [...] Screen ing [facility] Start: 09-29-2024 Tobacco Screening Tobacco Screening [facility] Start: 09-15-2024 End: 09-15-2024 Patient encounter procedure [facility] Start: 08-16-2024 Tobacco Screening Tobacco Screening [facility] Start: 08-12-2024 Adult BMI Screening Adult BMI Screen ing [facility] Start: 08-12-2024 Tobacco Screening Tobacco Screening [facility] Start: 07-22-2024 Tobacco Screening Tobacco Screening [facility] Start: 07-21-2024 Tobacco Screening Tobacco Screening [facility] Start: 07-09-2024 Adult BMI Screening Adult BMI Screen ing [facility] Start: 07-09-2024 Tobacco Screening Tobacco Screening [facility] Start: 06-29-2024 Tobacco Screening Tobacco Screening [facility] Start: 06-22-2024 Adult BMI Screening Adult BMI Screen ing [facility] Start: 06-22-2024 Tobacco Screening Tobacco Screening [facility] Start: 05-31-2024 End: 05-31-2024 Patient encounter procedure 05/31/2024 10:30 AM EDT Office Visit [facility] [address] [facility] [place] [place] [address] Leana Burr MD [address] [facility] [place] [address] [facility] [place] [facility] Start: 05-28-2024 Tobacco Screening [facility] Screening [facility] [...] Expected: 05/07/2024 (Approximate), Expires: 05/07/2024 [facility]: Comment on above: Expected: 05/07/2024 (Approximate), Expires: 05/07/2024 Start: 03-22-2024 End: 03-22-2024 Patient encounter procedure [facility] [place] [facility] Start: 01-28-2024 End: 01-28-2024 Professional / ancillary services management 01/28/2024 10:30 AM EST Ancillary Procedure [facility] [address] [place] [address] [facility] Start: 01-26-2024 End: 01-25-2025 US Pelvis transvaginal US pelvis transvaginal Imaging Routine Intrauterine device surveillance Expected: 01/26/2024 (Approximate), Expires: 01/25/2025 [facility] Work Phone: Comment on above: Expected: 01/26/2024 (Approximate), Expires: 01/25/2025 Start: 12-25-2023 End: 12-25-2023 Patient encounter procedure 12/25/2023 11:20 AM EDT Office Visit [facility] [address] [place] [phone] Mario Conway, DO [address] [place], [place] [id number] [facility] Start: 11-09-2023 Influenza vaccination Influenza Vacc ine [facility] Start: 09-24-2023 End: 09-24-2023 Telemedicine consultation with patient 09/24/2023 9:45 AM EDT Telemedicine [facility] at [facility] [address] [facility] [place] [address] Anna Galeano MD [address], [address] [place] [address] [facility] Start: 09-17-2023 End: 09-17-2023 Telemedicine consultation with patient 09/17/2023 1:00 PM EDT [facility] [place] [address] [place] [phone] Althea Jeong MD [address] [facility], [address] [place] [address] [facility] [place] Start: 09-17-2023 End: 09-17-2023 Patient encounter procedure 09/17/2023 11:00 AM EDT Appointment [facility] [place] [address] [place] [phone] [facility] [place] Start: 09-03-2023 End: 09-03-2023 Telemedicine consultation with patient 09/03/2023 1:00 PM EDT Telemedicine [facility] at [facility] [address] [facility] [place] [phone] Opal Heath APRN-BRO [address] [place] [address] [facility] Start: 08-20-2023 End: 08-20-2023 Telemedicine consultation with patient 08/20/2023 9:00 AM EDT Telemedicine [facility] at [facility] [address] [place] [address] Sg Robertson MD [address] [place] [address] [facility] Start: 08-13-2023 End: 08-13-2023 Patient encounter procedure [facility] [place] [facility] Start: 07-29-2023 End: 07-29-2023 Telemedicine consultation with patient 07/29/2023 1:45 PM EDT Telemedicine [facility] [place] [facility] [address] [facility] [address] [place] [phone] Leana Burr MD [address], [facility] [address] [place] [address] [facility] [place] [facility] Start: 07-23-2023 End: 07-23-2023 Telemedicine consultation with patient 07/23/2023 8:30 AM EDT Telemedicine [facility] [place] [facility] [address] [facility] [address] [place] [phone] Leana Burr MD [address] [facility] [address] [place] [address] [facility] [place] [facility] Start: 07-22-2023 End: 07-22-2023 Telemedicine consultation with patient 07/22/2023 10:00 AM EDT Telemedicine [facility] at [facility] [address] [place] [phone] Lottie Cam MD [address] [address] [facility] Start: 07-17-2023 End: 07-17-2023 Telemedicine consultation with patient 07/17/2023 11:45 AM EDT Telemedicine [facility] [address] [place] [phone] Leana Burr MD [address] [place] [address] [facility] [place] [facility] Start: 07-11-2023 End: 06-10-2024 US MFM [...] 10:00 AM EDT Telemedicine Maternal- Medicine at [place] [address] [place] [phone] Althea Jeong MD [address] [facility], [address] [place] [address] [facility] Start: 07-10-2023 End: 07-10-2023 Patient encounter procedure 07/10/2023 10:45 AM EDT Office Visit [facility] [address] [place] [phone] Leana Burr MD [address] [place] [address] [facility] [place] [facility] Start: 07-10-2023 End: 07-10-2023 Patient encounter procedure 07/10/2023 9:30 AM EDT Appointment [facility] [place] [address] [place] [phone] [facility] [place] Start: 06-30-2023 End: 06-30-2023 Telemedicine consultation with patient 06/30/2023 8:30 AM EDT Telemedicine [facility] [place] [facility] [address] [place] [phone] Leana Burr MD [address] [facility] [address] [place] [address] [facility] [place] [facility] Start: 06-11-2023 End: 06-11-2023 Patient encounter procedure 06/11/2023 1:00 PM EDT Appointment [facility] [address] [place] [address] [facility] Start: 06-10-2023 End: 06-10-2023 Patient encounter procedure 06/10/2023 3:00 PM EDT Office Visit [facility] [place] [facility] [address] [place] [address] Leana Burr MD [address] [facility] [address] [place] [address] [facility] [place] [facility] Start: 06-04-2023 End: 06-04-2023 Patient encounter procedure 06/04/2023 10:45 AM EDT Office Visit [facility] [address] [place] [phone] Leana Burr MD [address] [place] [address] [facility] [place] [facility] Start: 05-29-2023 End: 05-29-2023 Patient encounter procedure 05/29/2023 10:45 AM EDT Office Visit [facility] [place] [facility] [address] [place] [phone] Leana Burr MD [address] [place] [address] [facility] [place] [facility] Start: 05-20-2023 End: 05-20-2023 Telemedicine consultation with patient 05/20/2023 8:00 AM EDT Telemedicine [facility] [place] [facility] [address] [place] [phone] Leana Burr MD [address] [place] [address] [facility] [place] [facility] Start: 05-12-2023 End: 05-12-2023 Patient encounter procedure 05/12/2023 8:30 AM EST Routine [facility] [address] [place] [address] Shwetha Walton PA [address] [place] [address] [facility] Start: 05-07-2023 End: 05-07-2023 Patient encounter procedure 05/07/2023 3:00 PM EST Office Visit [facility] at [facility] [address] [place] [phone] Opal Heath, [employer] [address] [place] [address] [facility] at [facility] Start: 05-07-2023 End: 05-07-2023 ambulatory 05/07/2023 1:00 PM EST Support Visit [facility] at [facility] [address] [place] [address] Shital Chen, RD [address], [address] [place] [address] [facility] at [facility] Start: 11-08-2022 Influenza vaccination Influenza Vacc ine [facility] Start: 11-27-2021 End: 11-27-2021 Patient encounter procedure 11/27/2021 Office Visit Endocrinology Gregorio Floyd MD [address] [place] [address] [facility] Start: 11-27-2021 Hemoglobin A1c measurement A1C [facility] Start: 11-08-2021 Influenza vaccination Sequenti al Influenza Vaccine (Season Ended) [facility] Start: 06-25-2021 End: 06-25-2021 Patient encounter procedure 06/25/2021 Office Visit Endocrinology Gregorio Floyd MD [address] [place] [address] [facility] Start: 11-08-2020 Influenza vaccination Sequenti al Influenza Vaccine (#1) [facility] Start: 11-14-2015 Screening for malign ant [...] Hepatitis C screening Hepatitis C Sc reening [facility] Start: 2009 HIV screening HIV Screening [facility] Start: 2006 Depression screening using PHQ-9 (Patient Health Questionnaire 9) score [facility] Start: 2006 Tobacco Screening Tobacco Screening [facility] Start: 2005 DTaP,Tdap and Td Vaccines (5 - Tdap) DTaP,Tdap and Td Vaccines (5 - Tdap) [facility] Start: 2004 Diabetic foot examination Foot Exam [facility] Start: 2004 Microalbumin measurement, urine, quantitative Urine Microalbumin [facility] Start: 2004 Ophthalmic examinati on and evaluation Ophthalmology Exam [facility] Start: 2000 Pneumococcal Vaccine : Ped or At-Risk (1 - PCV) Pneumococcal Vaccine: Ped or At-Risk (1 - PCV) [facility] Start: 11-14-1999 COVID-19 Vaccine (#1) COVID-19 Vacci ne (#1) [facility] Start: 11-14-1999 COVID-19 Vaccine (1) COVID-19 Vaccin e (1) [facility] Start: 1997 History and physical examination, annual for health maintenance Wellness Visit [facility] Start: 1994 Glaucoma screening Diabetic Op hthalmology Exam [facility] Start: 1994 Screening for malign ant neoplasm of cervix Pap Smear [facility] Start: 1994 Tetanus vaccination Tetanus: Every 1 0yrs [facility] Start: 1994 Urine screening for protein Urine Microalbumin [facility] End: 08-27-2022 C peptide [Mass/volume] in Serum or Plasma C-peptide Lab Routine Type 2 diabetes mellitus with hyperglycemia, unspecified whether logistics lead insulin use (HCC) 1 Occurrences starting 08/27/2021 until 08/27/2022 [facility] Comment on above: 1 Occurrences starti [...] Routine Menorrhagia with regular cycle Ordered: 10/20/2024 [facility] Work Phone: Comment on above: Ordered: 10/20/2024 CHLAMYDIA TRACHOMATI S (GENITO/STI) CHLAMYDIA TRACHOMATIS (GENITO/STI) Lab Routine Pelvic pain in female Ordered: 10/20/2024 [facility] Comment on above: Ordered: 10/20/2024 End: 07-21-2024 Comprehensive metabolic 2000 panel - Serum or Plasma Comprehensive metabolic panel Lab Routine 26 weeks gestation of Type 2 diabetes mellitus in , second trimester Hypertension affecting in second trimester 1 Occurrences starting 07/22/2023 until 07/21/2024 [email or web address] Comment on above: 1 Occurrences starti ng 07/22/2023 until 07/21/2024 End: 01-14-2025 Comprehensive metabolic 2000 panel - Serum or Plasma Comprehensive metabolic panel Lab Routine Type 2 diabetes mellitus with hyperglycemia, with long-term current use of insulin ([facility]) 1 Occurrences starting 01/15/2024 until 01/14/2025 [employer] Work Phone: Comment on above: 1 Occurrences starti ng 01/15/2024 until 01/14/2025 End: 07-21-2024 ECG 12 lead ECG 12 lead ECG Routine 26 weeks gestation of Type 2 diabetes mellitus in , second trimester Hypertension affecting in second trimester 1 Occurrences starting 07/22/2023 until 07/21/2024 [employer] Work Phone: Comment on above: 1 Occurrences starti ng 07/22/2023 until 07/21/2024 End: 05-19-2024 GAD65 Ab assay GAD65 Ab assay Lab Routine Type 2 diabetes mellitus in , second trimester 1 Occurrences starting 05/20/2023 until 05/19/2024 [employer] Work Phone: Comment on above: 1 Occurrences starti ng 05/20/2023 until 05/19/2024 End: 08-27-2022 Glucose [Mass/volume] in Serum or Plasma Glucose Lab Routine Type 2 diabetes mellitus with hyperglycemia, unspecified whether logistics lead insulin use (HCC) 1 Occurrences starting 08/27/2021 until 08/27/2022 [facility] Comment on above: 1 Occurrences starti ng 08/27/2021 until 08/27/2022 End: 05-19-2024 Glucose [Mass/volume] in Serum or Plasma Glucose Lab Routine Type 2 diabetes mellitus in , second trimester 1 Occurrences starting 05/20/2023 until 05/19/2024 [facility] [employer] [facility] Comment on above: 1 Occurrences starti ng 05/20/2023 until 05/19/2024 hCG, quantitative, hCG, quantitative, Lab Routine Menorrhagia with regular cycle Ordered: 10/20/2024 [facility] Comment on above: Ordered: 10/20/2024 End: 01-14-2025 Hemoglobin A1c/Hemoglobin.total in Blood Hemoglobin A1c Lab Routine Type 2 diabetes mellitus with hyperglycemia, with long-term current use of insulin ([facility]) 1 Occurrences starting 01/15/2024 until 01/14/2025 [facility] [employer] [facility] Comment on above: 1 Occurrences starti ng 01/15/2024 until 01/14/2025 Hemoglobin A1c/Hemoglobin.total in Blood Hemoglobin A1c Lab Routine Menorrhagia with regular cycle Ordered: 10/20/2024 [facility] Comment on above: Ordered: 10/20/2024 Hepatic function 200 0 panel - Serum or Plasma Hepatic function panel Lab Routine Type 2 diabetes mellitus with hyperglycemia, unspecified whether jail insulin use (HCC) Ordered: 08/27/2021 [facility] Comment on above: Ordered: 08/27/2021 End: [...] (HCC) 1 Occurrences starting 08/27/2021 until 08/27/2022 [facility] Comment on above: 1 Occurrences starti ng 08/27/2021 until 08/27/2022 End: 07-21-2024 LDH LDH Lab Routine 26 weeks gestation of Type 2 diabetes mellitus in , second trimester Hypertension affecting in second trimester 1 Occurrences starting 07/22/2023 until 07/21/2024 [facility] Comment on above: 1 Occurrences starti ng 07/22/2023 until 07/21/2024 End: 08-27-2022 Lipid 1996 panel - Serum or Plasma Lipid Panel Lab Routine Type 2 diabetes mellitus with hyperglycemia, unspecified whether jail insulin use (HCC) 1 Occurrences starting 08/27/2021 until 08/27/2022 [facility] Comment on above: 1 Occurrences starti ng 08/27/2021 until 08/27/2022 End: 01-14-2025 Lipid 1996 panel - Serum or Plasma Lipid profile Lab Routine Type 2 diabetes mellitus with hyperglycemia, with long-term current use of insulin ([facility]) 1 Occurrences starting 01/15/2024 until 01/14/2025 [facility] Comment on above: 1 Occurrences starti ng 01/15/2024 until 01/14/2025 End: 01-14-2025 Microalbumin - Albumin: Creatinine Urine Ratio Microalbumin - Albumin: Creatinine Urine Ratio Lab Routine Type 2 diabetes mellitus with hyperglycemia, with long-term current use of insulin ([facility]) 1 Occurrences starting 01/15/2024 until 01/14/2025 [facility] Comment on above: 1 Occurrences starti ng 01/15/2024 until 01/14/2025 Microalbumin measurement, urine, quantitative Microalbumin/Creatinine Ratio, UR Random Lab Routine Type 2 diabetes mellitus with hyperglycemia, unspecified whether jail insulin use (HCC) Ordered: 08/27/2021 [facility] Work Phone: Comment on above: Ordered: 08/27/2021 End: 07-21-2024 Natriuretic peptide B [Mass/volume] in Blood B-type natriuretic peptide Lab Routine 26 weeks gestation of Type 2 diabetes mellitus in , second trimester Hypertension affecting in second trimester 1 Occurrences starting 07/22/2023 until 07/21/2024 [facility] Comment on above: 1 Occurrences starti ng 07/22/2023 until 07/21/2024 Neisseria gonorrhoea e DNA [Presence] in Unspecified specimen by EZEKIEL with probe detection Neisseria gonorrhea DNA probe, direct Lab Routine Pelvic pain in female Ordered: 10/20/2024 [facility] Comment on above: Ordered: 10/20/2024 Prothrombin time (PT ) in Blood by Coagulation assay Protime-INR Lab Routine Menorrhagia with regular cycle Ordered: 10/20/2024 [facility] Comment on above: Ordered: 10/20/2024 Thyrotropin [Units/volume] in Serum or Plasma TSH Lab Routine Menorrhagia with regular cycle Ordered: 10/20/2024 [facility] Comment on above: Ordered: 10/20/2024 Thyroxine (T4) free [Mass/volume] in Serum or Plasma T4, free Lab Routine Menorrhagia with regular cycle Ordered: 10/20/2024 [facility] Comment on above: Ordered: 10/20/2024 End: 01-14-2025 TSH with Reflex TSH with Reflex Lab Routine Type 2 diabetes mellitus with hyperglycemia, with long-term current use of insulin ([facility]) 1 Occurrences starting 01/15/2024 until 01/14/2025 [facility] Comment on above: 1 Occurrences starti ng 01/15/2024 until 01/14/2025 End: 07-21-2024 Urate [Mass/volume] in Serum or Plasma Uric acid Lab Routine 26 weeks gestation of Type 2 diabetes mellitus in , second trimester Hypertension affecting in second trimester 1 Occurrences starting 07/22/2023 until 07/21/2024 [facility] Comment on above: 1 Occurrences starti ng 07/22/2023 until 07/21/2024 End: 07-21-2024 Urine protein creatinine ratio Urine protein creatinine ratio Lab Routine 26 weeks gestation of Type 2 diabetes mellitus in , second trimester Hypertension affecting in second trimester 1 Occurrences starting 07/22/2023 until 07/21/2024 [facility] Comment on above: 1 Occurrences starti ng 07/22/2023 until 07/21/2024 Payers Date Payer Category Payer Unknown [id number] 2023 Unknown [id number] 2023 Medicaid O [facility] MED[facility] [id number] 2021 Private Health Insurance [facility] MEDICAID [id number] 2019 Medicaid [id number] 1994 Unknown [id number] 2.16.840.1.447796.3.579.2. 903 1994 Unknown [id number] 2.16.840.1.566585.3.579.2. 593 1994 Unknown [id number] 2.16.840.1.555482.3.579.2. 593 1994 Unknown [id number] 2.16.840.1.603267.3.579.2. 593 1994 Unknown [id number] 2.16.840.1.979144.3.579.2. 593 1994 Unknown [id number] 2.16.840.1.225082.3.579.2. 593 1994 Unknown [id number] 2.16.840.1.660496.3.579.2. 593 1994 Unknown [id number] 2.16.840.1.604455.3.579.2. 593 1994 Unknown [id number] 2.16.840.1.895618.3.579.2. 593 1994 Unknown [id number] 2.16.840.1.582212.3.579.2. 593 1994 Unknown [id number] 2.16.840.1.994227.3.579.2. 593 1994 Unknown [id number] 2.16.840.1.847302.3.579.2. 593 1994 Unknown [id number] 2.16.840.1.378020.3.579.2. 593 1994 Unknown [id number] 2.16.840.1.412149.3.579.2. 593 1994 Unknown [id number] 2.16.840.1.044299.3.579.2. 727 1994 Unknown [id number] 2.16840.1.221450.3.579.2. 727 1994 Unknown [id number] 2.16.840.1.509112.3.579.2. 727 1994 Unknown [id number] 2.16.840.1.150715.3.579.2. 727 1994 Unknown [id number] 2.16.840.1.784906.3.579.2. 727 1994 Unknown [id number] 2.16.840.1.169024.3.579.2. 128 1994 Unknown [id number] 2.16.840.1.550594.3.579.2. 128 1994 Unknown [id number] 2.16.840.1.376412.3.579.2. 1285 1994 Unknown [id number] 2.16.840.1.555603.3.579.2. 1285 1994 Unknown [id number] 2.16.840.1.019089.3.579.2. 128 1994 Unknown [id number] 2.16.840.1.552278.3.579.2. 1285 1994 Unknown [id number] 2.16840.1.674486.3.579.2. 1285 1994 Unknown [id number] 2.16840.1.725956.3.579.2. 1285 1994 Unknown [id number] 2.840.1.674185.3.579.2. 1994 Unknown [id number] 2.16840.1.232667.3.579.2. 1994 Unknown [id number] 2.840.1.525895.3.579.2. 1285 1994 Unknown [id number] 2.840.1.911688.3.579.2. 1285 1994 Unknown [id number] 2..1.074185.3.579.2. 1285 1994 Unknown [id number] 2.840.1.542003.3.579.2. 1285 1994 Unknown [id number] 2.0.1.676027.3.579.2. 1285 1994 Unknown [id number] 2.0.1.613682.3.579.2. 1285 1994 Unknown [id number] 2..1.057103.3.579.2. 1285 1994 Unknown [id number] 2.840.1.062156.3.579.2. 1285 1994 Unknown [id number] 2.840.1.105286.3.579.2. 1285 1994 Unknown [id number] 1994 Unknown [id number] 1285 1994 Unknown [id number] 1286 1994 Unknown [id number] 727 1994 Unknown [id number]. 1259 1994 Unknown [id number]. 1259 1994 Unknown [id number]. 1259 1994 Unknown [id number] 1259 1960 Medicaid [id number] 1960 Unknown [id number] 1960 Unknown [id number] 1960 Unknown [id number] Social History Date Type Detail Facility Start: [facility]23-2023 [facility] Start: 1995 Sex Assigned At Not on file [facility] Start: 08-24-2021 Tobacco smoking status Never [facility] Start: 03-24-2023 End: 11-26-2023 Sex Assigned At Female [facility] Start: 08-17-2021 End: 08-27-2021 Exposure to SARS-CoV-2 (event) Not sure [facility] Start: 03-24-2023 End: 08-26-2023 Tobacco smoking status [facility] Never smoked tobacco [facility] Start: 04-17-2023 End: 10-20-2024 Alcohol intake Lifetime non-drinker (finding) [facility] Start: 03-24-2023 End: 11-26-2023 History of Social function [facility] Start: 02-04-2023 [facility] Start: 1995 Sex Assigned At Female [facility] Start: 02-27-2023 Gender identity Identifies as female gender (finding) [facility] Start: 06-23-2023 End: 08-26-2023 Tobacco use and exposure Smokeless tobacco non-user [facility] Start: 01-15-2024 End: 05-31-2024 Alcoholic beverage intake Ex-drinker (finding) [facility] Start: 05-21-2013 End: 10-11-2014 Sex Female (finding) [facility] Sexual Orientation [facility] NEGATED: Highlighted rowStart: NINF History of tobacco use Passive smoker [facility] Medical Equipment Procedure Code Equipment Code Equipment Origin al Text Equipment Identifier Dates [id number] Start: 03-11-2023 1 each by miscellaneous route in the morning and 1 each at noon and 1 each in the evening and 1 each before bedtime. Using true metrix meter and strips and lancets.. [id number] Start: 07-10-2023 Use a new needle with each injection [id number] Start: 05-07-2023 End: 05-31-2024 Use 1 lancet 4 t imes daily for POC glucose testing [id number] Start: 06-24-2023 End: 07-10-2023 Use a new needle with each injection, inject 5 times per day [id number] Start: 05-31-2024 Functional Status Date Assessment Result Facility 05-28-2024 Functional Status N/A [facility] 08-21-2023 Functional Status N/A [facility] 08-21-2023 Functional Status N/A [facility] 08-24-2021 Functional Status N/A [facility] Clinical Notes 08-24-2021 to 11-25-2024 Karma Prasad - 11/25/2024 10:30 AM Zaki Archer NP - 10/20/2024 3:10 PM EDTTelephone Encounter - Mercedes Cortez CMA - 08/12/2024 9:55 AM Marai A Burr MD - 05/31/2024 10:30 AM [...] on 12-24-[address] Conway at [facility]. appointment. MEDICATIONS Current Outpatient Medications Medication Instructions [...] nursing note reviewed. Exam conducted with a nursing professor present. Vitals: Estimated body mass index is [...] reviewed, and patient is to proceed to [facility] OR. Follow Up: Patient is to follow up between 1-2 weeks post operative to assess proper healing and recovery from procedure. Documented by Sylvia Murillo LPN on behalf of: Mario Conway DO documented in this encounter [facility] 10-20-2024 History of Presen t illness Narrative [...] Escobar Other (high blood pressure) Father May Ashlye Heart disease Father May Ashley Heart attack [...] Mario Conway DO documented in this encounter [facility] 08-12-2024 Miscellaneous Notes Patent has been using Humalog U 200 in her pump and with the prescription she has now she currently is running out before next refill. She asked if she could switch to regular Humalog or should she stay on current medication ? If she stays with current medication could a new prescription be sent to [facility] in [place] I have sent in for increased insulin needs for the new pump. Patient should stay on u200 with her pump settings. Script sent to [facility] Leana Burr MD LVM for patient with below message from Dr Burr and if patient has any questions to contact office. documented in this encounter [facility] 08-12-2024 Telephone encounter Note Patent has been using Humalog U 200 in her pump and with the prescription she has now she currently is running out before next refill. She asked if she could switch to regular Humalog or should she stay on current medication ? If she stays with current medication could a new prescription be sent to [facility] in [place] [facility] 08-12-2024 Telephone encounter Note I have sent in for increased insulin needs for the new pump. Patient should stay on u200 with her pump settings. Script sent to [facility] Leana Burr MD [facility] 08-12-2024 Telephone encounter Note LVM for patient with below message from Dr Burr and if patient has any questions to contact office. [facility] 07-26-2024 Miscellaneous Notes Patient called asking if she could get a prescription sent in for dexcom G7. She would like this sent to [facility]. Thank you documented in this encounter [facility] 07-26-2024 Telephone encounter Note Patient called asking if she could get a prescription sent in for dexcom G7. She would like this sent to [facility]. Thank you [facility] 05-31-2024 History of Presen t illness Narrative [facility] Diabetes Visit Tess Pfeiffer is a [...] 1-2 times per day. Complications: History of OH, CHF: none Medications none Last Lipid panel drawn due after History of HTN: no Medications none History of Diabetic Retinopathy: unknown. Last seen [employer] unknown History of peripheral neuropathy: none Medications [...] History: Diagnosis Date Anxiety Depression Diabetes mellitus ([facility]) Disease of thyroid gland Hypertension Past Surgical History: Procedure Laterality Date N/A 09/27/2023 Performed by Fredy Ross MD at [facility] OR Family History Problem Relation Age [...] Interpersonal Safety: Unknown (05/01/2023) Received from [facility], [facility] [place] [employer] [place] Fear [...] foot injury. Follow up in 2 months. LEANA BURR MD [facility] encounter [facility]24 Instructions Leana Burr MD - 05/31/2024 10:30 AM EDT Sliding scale with the u200 humalog with each meal < 150 no extra 151-200 +2 units 201-250 +4 units 251-300 +6 units 301-350 + 8 units 351+ + 10 units Lantus 55 units nightly Start trulicity 0.75 mg documented in this encounter [facility] Hospital Discharg e instructions Patient Education [...] these instructions at home: General instructions Take dsmf-mry-waqxiou and prescription medicines only as told by [...] alert jewelry. Where to find more information [place] [employer]: www.diabetes.org Contact a health care [...] Document Reviewed: 12/08/2020 Elsevier Patient Education 2023 PhotoRocket. Follow Up Care 05/28/2024 16:51:26 With:Aleksey Laureano Address: [address] [place] [phone] Business (1) When:05/31/2024 18:44:03 [facility] 05-28-2024 Note ED Patient Education Note Endocrinology [...] instructions at home: General instructions ??? Take jdky-xdl-nfvtumd and prescription medicines only as told by [...] help with this (more content not included)... [facility] 05-28-2024 Evaluation + Plan note Extrac [...] Pending * UA with Cult Rflx 05/28/24 [facility] 03-21-2025 History of Present illness Narrative* Leana [...] insulin prescriptions. Leana Burr documented [facility] Miscellaneous Notes* Telephone Encounter - Linda Hines RN - 05/28/2024 10:04 AM EDT TC to patient. Informed patient that freelance copywriter spoke to Dr Burr. Dr Burr states [...] send long acting insulin into her pharmacy [facility] in [place]. documented in [facility]-2025 Telephone encounter Note* Telephone Encounter - Linda Hines RN - 05/28/2024 10:04 AM EDT TC to patient. Informed patient that freelance copywriter spoke to Dr Burr. Dr Burr states [...] acting insulin into her pharmacy [facility] in [place]. [facility]03-21-2025 Miscellaneous Notes* Telephone Encounter - Linda [...] up this morning her blood sugar @ 9614-5973 was 363 so she took another 15 units of U-200. Her current blood sugar is 373. Nuclear Auxiliary Operator asked patient ifcasie is currently using her insulin pump and patient states no because it is broke and she tried to get Omnipod to repair and pump is out of warranty. The cost to repair she was told is 300 and she can't afford that at this time. Nuclear Auxiliary Operator asked patient if she has an long [...] fluids if not having nausea and vomiting. Nuclear Auxiliary Operator informed patient that Dr Burr is not in the office today, but freelance copywriter will try to reach her. Patient was given the after hours number in case her blood sugar continues to elevate. Nuclear Auxiliary Operator informed patient that if she is not able get her blood glucose below 300 and/or worsening symptoms that she should go to the ER. Patient verbalized understanding. documented in this encounter[facility]03-[facility]-2025 Telephone encounter Note* Telephone Encounter - [...] up this morning her blood sugar @ 4753-3067 was 363 so she took another 15 units of U-200. Her current blood sugar is 373. Nuclear Auxiliary Operator asked patient ifcasie is currently using her insulin pump and patient states no because it is broke and she tried to get Omnipod to repair and pump is out of warranty. The cost to repair she was told is 300 and she can't afford that at this time. Nuclear Auxiliary Operator asked patient if she has an long [...] fluids if not having nausea and vomiting. Nuclear Auxiliary Operator informed patient that Dr Burr is not in the office today, but freelance copywriter will try to reach her. Patient was given the after hours number in case her blood sugar continues to elevate. Nuclear Auxiliary Operator informed patient that if she is not able get her blood glucose below 300 and/or worsening symptoms that she should go to the ER. Patient verbalized understanding. [facility]02-05-2025 Miscellaneous Notes* Telephone Encounter - Linda Hines RN - 04/14/2024 2:58 PM EST LVM to call our office to get rescheduled for the canceled appointment. documented in this encounterMer[facility]02-05-2025 Telephone encounter Note* Telephone Encounter - Linda Hines RN - 04/14/2024 2:58 PM EST LVM to call our office to get rescheduled for the canceled appointment. [facility]01-29-2025 Miscellaneous Notes* Telephone Encounter - Linda Hines RN - 04/07/2024 10:41 AM EST LVM for patient that Dr Burr will be out of the office tomorrow April 08 and we need to reschedule her appointment. Contact information left on voicemail to return call to get rescheduled. documented in this encounterMer[facility]01-29-2025 Telephone encounter Note* Telephone Encounter - Linda Hines RN - 04/07/2024 10:41 AM EST LVM for patient that Dr Burr will be out of the office tomorrow April 08 and we need to reschedule her appointment. Contact information left on voicemail to return call to get rescheduled. [facility]18-[facility]24 Miscellaneous Notes* Telephone Encounter - Linda Hines RN - 01/26/2024 11:30 AM EST LVM for patient regarding her message that she sent through her [employer]. Patient states her insurance will not cover the Omnipod pods or the Mounjaro. Nuclear Auxiliary Operator called and left message for patient to contact her insurance company to find out why they are not approving the medications. Nuclear Auxiliary Operator asked patient to send a Turbo-Trac USAt message or call our office back when she finds out an answer. documented in this encounterMarietta Osteopathic ClinicInterplay Entertainment [id number] Telephone encounter Note* Telephone Encounter - Linda Hines RN - 01/26/2024 11:30 AM EST LVM for patient regarding her message that she sent through her [employer]. Patient states her insurance will not cover the Omnipod pods or the Mounjaro. Nuclear Auxiliary Operator called and left message for patient to contact her insurance company to find out why they are not approving the medications. Nuclear Auxiliary Operator asked patient to send a Turbo-Trac USAt message or call our office back when she finds out an answer. [facility]11-18-2024 History of Present illness Narrative* Sylvia Murillo [...] Hand fracture, right Type 2 diabetes mellitus ([facility]) HISTORY PAST MEDICAL HISTORY SOCIAL HISTORY Past Medical History: Diagnosis Date Acid reflux Female infertility 2014 Fracture of ankle 08/20 Hand fracture, right broken right hand Type 2 diabetes mellitus ([facility]) Social History Tobacco Use Smoking status: Never [...] nursing note reviewed. Exam conducted with a nursing professor present. Vitals: Estimated body mass index is [...] of: Mario Conway DO documented in this encounterSouthPointe [id number] History of Present illness Narrative* Leana Burr MD - 01/15/2024 8:30 AM EST [facility]- Diabetes Visit TELEMEDICINE VISIT: This is an audiovisual visit. This is done to assess the patient and to determine the best medical care. The patient was located at [place] and the provider was located at the [...] had hypoglycemia after delivery. Complications: History of OH, CHF: none Medications none Last Lipid panel drawn due after History of HTN: no Medications none History of Diabetic Retinopathy: unknown. Last seen [employer] unknown History of peripheral neuropathy: none Medications [...] History: Diagnosis Date Anxiety Depression Diabetes mellitus ([facility]) Disease of thyroid gland Hypertension Past Surgical History: Procedure Laterality Date N/A 09/27/2023 Performed by Fredy Ross MD at [facility] OR Family History Problem Relation Age [...] Interpersonal Safety: Unknown (05/01/2023) Received from [facility] [place] Fear [...] Labs before next visit LEANA BURR MD [facility] documented in this encounterMer[facility]10-22-2024 Miscellaneous Notes* Telephone Encounter - Kike [...] can be scheduled. Pt relayed has other special agent in charge from before so is going to see if can get in with them sooner. Pt to call us if times are about the same to schedule. jk documented in this encounterMercy [facility] Hospital10-22-2024 Telephone encounter Note* Telephone Encounter - [...] can be scheduled. Pt relayed has other special agent in charge from before so is going to see if can get in with them sooner. Pt to call us if times are about the same to schedule. jk [employer] [id number] History of Present illness Narrative* Coral Feliz, NEWSPAPER STUFFER - 11/26/2023 2:30 PM EDT Reason for [...] nursing note reviewed. Exam conducted with a nursing professor present. Vitals: Estimated body mass index is [...] of: Mario Conway DO documented in this encounterSouthPointe [id number] Miscellaneous Notes* Note - Leisa Delacruz RN [...] in milk production. Power pumping in the wharf helper hours is very effective, because hormone levels [...] answered and support given. documented in this encounterMercy [facility]08-04-2024 Obstetrics Note* Note - Leisa Delacruz [...] in milk production. Power pumping in the wharf helper hours is very effective, because hormone levels [...] as well. Questions answered and support given. [facility] HospitalDirectRM [employer] [id number] Miscellaneous Notes* Note - Meghana Ocampo RN [...] Questions answered, encouragement given. documented in this encounterMercy Health [facility] Hospital07-30-2024 Obstetrics Note* Note - Meghana Ocampo [...] home pump tomorrow. Questions answered, encouragement given. [facility]07-25-20[facility] History of Present illness Narrative* SABINA George - 10/02/2023 9:30 AM EDT Video Visit via Real-time Synchronous Audiovisual Provider Location: [facility] [address] [facility] [id number] Patient Location: other Patient Location Earth Science Faculty Member: None Video Visit Consent Statement: I discussed [...] that there are some limitations compared to gvxh-du-vrdh evaluations. We elected to proceed. Subjective: eTss Pfeiffer is a 27 y.o. is seen today via televisit. She is 5 days post- from a PLTCS at 35w4d secondary to NRFHT. Her was complicated by CHTN with ANABELLE with severe features, Type II DM. She was a transport to [facility] from [place]. She sees Dr. Conway as her primary [...] by symptomatic. Pre-eclamptic warnings reviewed. Call provider agronomy advisor for headache unresolved with tylenol, visualchange, epigastic pain or significant change in swelling in her hands feet or face. Let the office know if BP readings consistently over 140/90 (either number). Call provider agronomy advisor for BP greater than 160/110 (either number). Clarice Vaughn, GRID TRIMMERROSY 10/02/23 3734 documented in this encounterMercy Health [facility]field Hospital07-18-2024 Miscellaneous Notes* Telephone Encounter - Joann Walsh RN - 09/25/2023 1:08 PM EDTSummary: MFM Insulin Pump/Insulin Injection Dosing Called. No Answer. Message left regarding needing an update on current insulin pump/insulin injection dosing and needing to schedule an in person MFM appointment or be admitted for glucose optimization. Requested return call. documented in this encounterMercy Health [facility]field Hospital07-18-2024 Telephone encounter Note* Telephone Encounter - Joann Walsh RN - 09/25/2023 1:08 PM EDT Summary: MFM Insulin Pump/Insulin Injection Dosing Called. No Answer. Message left regarding needing an update on current insulin pump/insulin injection dosing and needing to schedule an in person MFM appointment or be admitted for glucose optimization. Requested return call. [facility] Work Phone: 1(541) 274-891107-18-2024 Miscellaneous Notes* Telephone Encounter - Joann Walsh [...] Chart message also sent. documented in this encounterMercy Health [facility] Hospital07-18-2024 Telephone encounter Note* Telephone Encounter - [...] above information. My Chart message also sent. [employer] Work Phone: 1(584) 766-995607-17-2024 Miscellaneous Notes* Telephone Encounter - Wendy Lambert RN - 09/24/2023 9:47 AM EDT Attempted to contact patient regarding MyChart Video Visit scheduled at 9:45 a.m. No answer. LVM informing patient to log on for visit within the next 10-15 minutes or call office if needing to cancel or reschedule. Provided office call back number. documented in this encounterMarietta Osteopathic ClinicD.light Design07-17-2024 Telephone encounter Note* Telephone Encounter - Wendy Lambert RN - 09/24/2023 9:47 AM EDT Attempted to contact patient regarding MyChart Video Visit scheduled at 9:45 a.m. No answer. LVM informing patient to log on for visit within the next 10-15 minutes or call office if needing to cancel or reschedule. Provided office call back number. [facility] Hospital[facility]07-10-2024 History of Present illness Narrative* Billie Enrique [...] second trimester Obesity during BMI 50.0-59.9, adult ([facility]) Depression affecting , antepartum . Her is [...] trimester, Obesity during , BMI 50.0-59.9, adult ([facility]), Depression affecting , antepartum, and34 weeks [...] (three) times a day., Disp: , Rfl: M-MDAHURI PLUS 27 mg iron- 1 mg tablet, [...] 5. Obesity during 6. BMI 50.0-59.9, adult ([facility]) 7. Depression affecting , antepartum Reports that [...] by e-mail to: or by fax to: [phone] The patient is to continue with routine care in your office [facility], the CDC, and other organizations representing maternal and public health professionals recommend that , , and lactating people and those considering receive the COVID-19 vaccination. Vaccination is the best method to reduce maternal and complications of SARS-CoV-2 infection. This document was created with [employer] technology. Though I make every effort to review the dictation as it is transcribed, on occasion the spoken word can be misinterpreted by the technology leading to inappropriate words, phrases, or sentences. This note is addressed to the requesting provider as a consultation for clinical guidance. Specificmedical abbreviations are occasionally used and those are generally approved by the [place]?Board of?Obstetrics and?Gynecology?as well as?Anais s abbreviations. The above plan of care was based solely on the diagnoses for which a consultation was requested. ?More frequent testing may be indicated based on her other medical/obstetrical conditions. The management of other or medical conditions is beyond the scope of requested consultation and will carrillo salas to be followed by the primary account processor or primary care provider. Thank you for allowing me to participate in her care. Please contact me if you have any concerns. documented in this encounterMarietta Osteopathic ClinicInterplay Entertainment [id number] Hospital Discharge instructions Patient Education 08/21/2023 23:40:58 Vaginal Bleeding During , Third Trimester, Kipc-wl-Nefo Vaginal Bleeding During , Third Trimester A [...] you with your normal activities. Medicines Take symh-xnr-ozeotnb and prescription medicines only as told by [...] provider. Document Revised: 11/16/2020 Document Reviewed: 11/16/2020 cortical.io Patient Education 2022 PhotoRocket. 08/21/2023 23:40:58 Hypertension During , Uxrm-ud-Labq Hypertension During Hypertension is also called high [...] are best for you. General instructions Take vfrj-htr-pjvbhel and prescription medicines only as told by [...] away. Call your local emergency services ([facility] [place] Do not wait to see [...] provider. Document Revised: 11/16/2020 Document Reviewed: 11/16/2020 cortical.io Patient Education 2022 [employer].io Inc. 08/21/2023 23:40:58 Form - Movement Counts [...] provider. Document Revised: 10/14/2019 Document Reviewed: 10/14/2019 cortical.io Patient Education 2022 PhotoRocket. Follow Up Care 08/21/2023 21:25:46 With:Mario CONWAY Address: [address] [place] [address] [facility] (1) When:08/22/2023 Comments:Call Dr if fever>100.5 F, heavy bleedingCall for severe abdominal painCall physician for heavy vaginal bleedingCall physician if symptoms worsenReturn for contractions closer, longer, harderReturnfor decreased movementReturn if ruptured membranes or vaginal bleeding [facility]06-14-2024 NoteThe following Patient Education Materials have been given to the patient: EducationMateriUniversity [facility]als [facility]06-13-2024 Hospital Discharge instructions Patient Education 08/21/2023 21:19:51 [...] your health care provider. General instructions Take tglk-qvn-xrqoemx and prescription medicines only as told by [...] provider. Document Revised: 05/25/2020 Document Reviewed: 05/25/2020 cortical.io Patient Education 2022 [employer]. Follow Up Care 08/21/2023 19:05:36 With:Roosevelt Maldonado Address: [address] [place] [address]- Business (1) When:08/24/2023 21:04:34 With:Aleksey Ray Address: [address] [place] [address]- Business (1) When:Within 3 Day(s) [facility]06-13-2024 Evaluation + Plan noteExtracted from: Title:ED Note [...] Views Right XR Wrist 3+ Views Left [facility]06-12-2024 History of Present illness Narrative* Sg Robertson [...] Visit via Real-time Synchronous Audiovisual Provider Location: [facility] AT [address] [id number] Patient Location: {VIDEO VISIT - PATIENT LOCATION: Home in [place] Patient Location [employer] Faculty Member: NA Video Visit Consent Statement: I discussed [...] that there are some limitations compared to acwt-iv-chad evaluations. We elected to proceed Thank you for sending this patient. Sg Robertson MD Maternal Medicine Professor, [facility]. [phone]- Office [phone] Personal Cell Phone Office Note: Type 2 [...] patient understands that she should follow-up with special agent in charge. The patient endorses movement and denies preeclampsia symptoms or other related acute symptomatology. We confirmed the patient receives surveillance by her primary OB provider. The patient had no additional issues or questions today. She reports stable blood pressure control although we were not able to directly evaluate today. Comments, Conclusions: Diabetes control modestly improved. The patient has ongoing follow-up with special agent in charge. We willcopy are note. The patient anticipates [...] outlined by my partner (Dr. Cam 07/22/2023- [facility], with routing to Dr. Conway). Thank you for letting us interact with this patient. The patient will have follow-up arranged in our office or in our system. Diabetes follow-up by special agent in charge. Primary management including overall care including consideration of compliance consultant recommendations as per the excellent care ofthe patient's primary OB provider. If we otherwise need to see the patient or our help is needed before next visit, please contact us and or schedule accordingly as applicable. documented in this encounterMercy [facility]06-05-[facility] History of Present illness Narrative* Linda [...] Burr MD - 08/13/2023 1:45 PM EDT [facility]- Diabetes Visit Tess Pfeiffer is a [...] of Delivery: 10/28/23. She is referred from [facility] who is managing along with us. She has had her diabetes education with [facility]. Please see media for full pump [...] within last year: none. Complications: History of OH, CHF: none Medications none Last Lipid panel drawn due after History of HTN: no Medications none History of Diabetic Retinopathy: unknown. Last seen [employer] unknown History of peripheral neuropathy: none Medications [...] History: Diagnosis Date Anxiety Depression Diabetes mellitus ([facility]) Disease of thyroid gland Hypertension History [...] Interpersonal Safety: Unknown (05/01/2023) Received from [facility], [facility] [place] Safety & Environment Fear [...] BP usually around 132/ 76. Yesterday at [place] 158/99 with mild headache now resolved General- [...] 10/28/23. She has had diabetes education with [facility]. We reviewed the following We have discussed the issue of insulin-dependent diabetes mellitus and the effect of in detail. There is an elevated risk of malformation of the order of 22% in those who have jozgepxfndG4L 8.5 and higher. Patient aware that maternal [...] breakfast: try low sugar protein shakes or andorran yogurt if appetite lower inthe AM. Eggs, [...] May Glucose Monitoring 07/29/23 LEANA BURR MD [facility] documented in this encounterMercy [facility]06-05-2024 Instructions* Patient Instructions* Leana Burr MD [...] Stop lantus after delivery documented in this encounterMercy Health [facility]field [facility]05-21-2024 History of Present illness Narrative* Leana Burr MD - 07/29/2023 1:45 PM EDT [facility]- Diabetes Visit Tess Pfeiffer is a [...] of Delivery: 10/28/23. She is referred from [facility] who is managing along with us. She has had her diabetes education with [facility]. Please see media for full pump [...] within last year: none. Complications: History of [place], CHF: none Medications none Last Lipid panel drawn due after History of HTN: no Medications none History of Diabetic Retinopathy: unknown. Last seen [employer] unknown History of peripheral neuropathy: none Medications [...] History: Diagnosis Date Anxiety Depression Diabetes mellitus ([facility]) Disease of thyroid gland Hypertension No [...] Interpersonal Safety: Unknown (05/01/2023) Received from [facility], [facility] Safety & Environment Fear of Current or [...] BP usually around 132/ 76. Yesterday at [place] 158/99 with mild headache now resolved General- [...] 10/28/23. She has had diabetes education with [facility]. We reviewed the following We have discussed the issue of insulin-dependent diabetes mellitus and the effect of in detail. There is an elevated risk of malformation of the order of 22% in those who have tkmjxaftaaI3O 8.5 and higher. Patient aware that maternal [...] breakfast: try low sugar protein shakes or andorran yogurt if appetite lower inthe AM. Eggs, [...] MD [facility] documented in this encounterMercy Health [facility] Hospital05-15-2024 History of Present illness Narrative* Leana [...] within last year: none. Complications: History of [place], CHF: none Medications none Last Lipid panel drawn due after History of HTN: no Medications none History of Diabetic Retinopathy: unknown. Last seen [employer] unknown History of peripheral neuropathy: none Medications [...] History: Diagnosis Date Anxiety Depression Diabetes mellitus ([facility]) Disease of thyroid gland Hypertension History [...] Interpersonal Safety: Unknown (05/01/2023) Received from [facility], [facility] [place] Safety & Environment Fear [...] 10/28/23. She has had diabetes education with [facility]. We reviewed the following We have discussed the issue of insulin-dependent diabetes mellitus and the effect of in detail. There is an elevated risk of malformation of the order of 22% in those who have gljegjcsmiI0R 8.5 and higher. Patient aware that maternal [...] breakfast: try low sugar protein shakes or andorran yogurt if appetite lower inthe AM. Complications/ [...] May Glucose Monitoring 07/23/23 LEANA BURR MD [facility] documented in this encounterBrattleboro Memorial HospitalProteopure05-14-2024 History of Present illness Narrative* Lottie Cam MD - 07/22/2023 10:00 AM EDT Video Visit via Real-time Synchronous Audiovisual Provider Location: [facility] AT [address] [id number] Patient Location: Patient's home Patient Location [employer] Faculty Member: None Video Visit Consent Statement: I discussed [...] that there are some limitations compared to ydel-mo-mgng evaluations. We elected to proceed. [facility] Maternal- [...] History: Diagnosis Date Anxiety Depression Diabetes mellitus ([facility]) Disease of thyroid gland Hypertension PSHIST: No [...] Interpersonal Safety: Unknown (05/01/2023) Received from [facility], [facility] [place] Safety & Environment Fear [...] ng/mL Final Comment: NOTE Test Performed By: [facility] [employer] [address] [place] [address] Director Export: Vaibhav Julian III, M.D. CLIA #[id number]^ Insulinoma Ab 2 06/23/2023 See Below Final [...] Clinical correlation is required. Test Performed By: [facility] [employer] [address] [place] [address] Director Export: Vaibhav Julian III, M.D. CLIA #[id number]^ Yeyo Antibody 06/23/2023 <5.0 0.0 - 5.0 IU/mL Final Comment: NOTE INTERPRETIVE INFORMATION: Glutamic Acid Decarboxylase Antibody A value greater than 5.0 IU/mL is considered positive for Glutamic Acid Decarboxylase Antibody (YEYO Ab). This assay is intended for the semi-quantitative determination of the YEYO Ab in human serum. Results should be interpreted within the context of clinical symptoms. Performed By: [facility] [address] [place] [id number] Director Export: Mark Fitzpatrick MD, PhD CLIA Number: [id number] Office Visit on 06/23/2023 Component Date Value [...] other morbidities. Based on the available evidence, [facility] recommends treatment with antihypertensive therapy for [...] for preeclampsia prevention as is recommendedby the [place] [employer] Gynecology Committee Opinion No. 743. Higher doses (150mg) have been studied, but utilized a screening strategy that is not widely performed in the [place] (serum analytes and uterine artery Doppler), limiting the generalizability of the findings. 4. Obesity during 5. BMI 50.0-59.9, adult ([facility]) The patient has a BMI of > [...] levels of her lamotrigine checked in the jmfb6hc and 3rd trimester in order to ensure adequate dosing. She should have her levels checked through her PCP with the prescribing physician on medications Pristiq reviewed. There has been some association with increased risk of preeclampsia and hemorrhage. Special Skills Officer should be notified about use as there [...] above 4500 g -timing of delivery between [id number] in the setting of pre gestational diabetes [...] Lottie Cam MD, FACOG (she/hers) Maternal- Medicine [facility] [address] [facility] 1st [place] [address] This document was created with [email or web address] technology. Though I make every effort to review the dictation as it is transcribed, on occasion the spoken word can be misinterpreted by the technology leading to inappropriate words, phrases, or sentences. This note is addressed to the requesting provider as a consultation for clinical guidance. Specificmedical abbreviations are occasionally used and those are generally approved by the [place]?Board of?Obstetrics and?Gynecology?as well as?Anais s abbreviations. The above plan of care was based solely on the diagnoses for which a consultation was requested. ?More frequent testing may be indicated based on her other medical/obstetrical conditions. The management of other or medical conditions is beyond the scope of requested consultation and will c ontinue to be followed by the primary account processor or primary care provider. Note to patient: [...] opinion of the practitioner. documented in this encounterMarietta Osteopathic ClinicCleanEdison [facility] [id number] History of Present illness Narrative* Linda Hines [...] Burr MD - 07/10/2023 10:45 AM EDT [facility]- Diabetes Visit Tess Pfeiffer is a [...] of Delivery: 10/28/23. She is referred from [facility] who is managing along with us. She has had her diabetes education with [facility]. Please see media for full pump download. Average BG 151. Usually bolusing 2 times per day. She is having less extreme spikes but still overall averaging too high throughout the day. She is starting to feel baby move. No contractions. No pain. Increased nausea without vomiting. Past admissions for DKA within last year: none. Complications: History of OH, CHF: none Medications none Last Lipid panel drawn due after History of HTN: no Medications none History of Diabetic Retinopathy: unknown. Last seen [employer] unknown History of peripheral neuropathy: none Medications [...] Interpersonal Safety: Unknown (05/01/2023) Received from [facility] [place] Safety & Environment Fear [...] BP usually around 132/ 76. Yesterday at [place] 158/99 with mild headache now resolved General- [...] 10/28/23. She has had diabetes education with [facility]. We reviewed the following We have discussed the issue of insulin-dependent diabetes mellitus and the effect of in detail. There is an elevated risk of malformation of the order of 22% in those who have kuugbwlycbK6J 8.5 and higher. Patient aware that maternal [...] breakfast: try low sugar protein shakes or andorran yogurt if appetite lower inthe AM. Complications/ [...] Dede Glucose Monitoring 06/23/23 LEANA BURR MD [facility] documented in this [facility]04-23-2024 Miscellaneous Notes* Telephone Encounter - Gladys Daniel LPN - 07/01/2023 11:25 AM EDT Please call us back we need to schedule you and Dr visit with one of our Dr's after your next ultrasound in [place]. documented in this [facility]04-23-2024 Telephone encounter Note* Telephone Encounter - Gladys Daniel LPN - 07/01/2023 11:25 AM EDT Please call us back we need to schedule you and Dr visit with one of our Dr's after your next ultrasound in [place]. [employer] [id number] History of Present illness Narrative* Leana Burr MD - 06/30/2023 8:30 AM EDT [facility]- Diabetes Visit TELEMEDICINE VISIT: This is an audiovisual visit. This is done to assess the patient and to determine the best medical care. The patient was located at home in [place] and the provider was located at the [...] of Delivery: 10/28/23. She is referred from [facility] who is managing along with us. She has had her diabetes education with [facility]. Please see media for full pump [...] within last year: none. Complications: History of OH, CHF: none Medications none Last Lipid panel drawn due after History of HTN: no Medications none History of Diabetic Retinopathy: unknown. Last seen [employer] unknown History of peripheral neuropathy: none Medications [...] History: Diagnosis Date Anxiety Depression Diabetes mellitus ([facility]) Disease of thyroid gland Hypertension No [...] Interpersonal Safety: Unknown (05/01/2023) Received from [facility], [facility] [place] Safety [facility] Environment Fear [...] BP usually around 132/ 76. Yesterday at [place] 158/99 with mild headache now resolved General- [...] 10/28/23. She has had diabetes education with [facility]. We reviewed the following We have discussed the issue of insulin-dependent diabetes mellitus and the effect of in detail. There is an elevated risk of malformation of the order of 22% in those who have ropkogfeyaP2G 8.5 and higher. Patient aware that maternal [...] breakfast: try low sugar protein shakes or andorran yogurt if appetite lower inthe AM. Complications/ [...] Dede Glucose Monitoring 06/23/23 LEANA BURR MD [facility] documented in this encounterMercy Health [facility]field Hospital04-15-2024 History of Present illness Narrative* Linda [...] Burr MD - 06/23/2023 9:30 AM EDT [facility]- Diabetes Visit Tess Pfeiffer is a [...] of Delivery: 10/28/23. She is referred from [facility] who is managing along with us. She has had her diabetes education with [facility]. Please see media for full pump [...] within last year: none. Complications: History of OH, CHF: none Medications none Last Lipid panel drawn due after History of HTN: no Medications none History of Diabetic Retinopathy: unknown. Last seen [employer] unknown History of peripheral neuropathy: none Medications [...] Interpersonal Safety: Unknown (05/01/2023) Received from [facility], [facility] [place] Safety [facility] Environment Fear [...] 10/28/23. She has had diabetes education with [facility]. We reviewed the following We have discussed the issue of insulin-dependent diabetes mellitus and the effect of in detail. There is an elevated risk of malformation of the order of 22% in those who have dbosqaqtjfO5B 8.5 and higher. Patient aware that maternal [...] breakfast: try low sugar protein shakes or andorran yogurt if appetite lower inthe AM. Complications/ [...] MD [facility] documented in this encounterMarietta Osteopathic ClinicCleanEdison [facility] [id number] History of Present illness Narrative* Leana Burr [...] of Delivery: 10/28/23. She is referred from [facility] who is managing along with us. She has had her diabetes education with [facility]. Please see media for full pump [...] within last year: none. Complications: History of OH, CHF: none Medications none Last Lipid panel drawn due after History of HTN: no Medications none History of Diabetic Retinopathy: unknown. Last seen [employer] unknown History of peripheral neuropathy: none Medications [...] History: Diagnosis Date Anxiety Depression Diabetes mellitus ([facility]) Disease of thyroid gland Hypertension History [...] 10/28/23. She has had diabetes education with [facility]. We reviewed the following We have discussed the issue of insulin-dependent diabetes mellitus and the effect of in detail. There is an elevated risk of malformation of the order of 22% in those who have ywwjwpnrqzI0V 8.5 and higher. Patient aware that maternal [...] breakfast: try low sugar protein shakes or andorran yogurt if appetite lower inthe AM. Complications/ [...] with MFM as well. LEANA BURR MD [place] [facility] documented in this encounterMercy Health Fairfield Hospital03-12-2024 History of Present illness Narrative* Leana Burr MD - 05/20/2023 8:00 AM EDT [facility]- Diabetes Visit Tess Pfeiffer is a [...] of Delivery: 10/28/23. She is referred from [facility] who is managing along with us. She has had her diabetes education with [facility]. Please see media for full pump [...] within last year: none. Complications: History of [place], CHF: none Medications none Last Lipid panel drawn due after History of HTN: no Medications none History of Diabetic Retinopathy: unknown. Last seen [employer] unknown History of peripheral neuropathy: none Medications [...] History: Diagnosis Date Anxiety Depression Diabetes mellitus ([facility]) Disease of thyroid gland Hypertension No [...] 10/28/23. She has had diabetes education with [facility]. We reviewed the following We have discussed the issue of insulin-dependent diabetes mellitus and the effect of in detail. There is an elevated risk of malformation of the order of 22% in those who have vwugvkiusgR4T 8.5 and higher. Patient aware that maternal [...] considerably as her current automated basal is uzerditbu23 units but her basal rates were recently [...] breakfast: try low sugar protein shakes or andorran yogurt if appetite lower inthe AM. Complications/ [...] with MFM as well. LEANA BURR MD [facility] documented in this encounterMercy Health Fairfield [...] and denied any questions. documented in this encounterMercy Health Fairfield Hospital03-05-2024 Telephone encounter Note* Telephone Encounter - [...] understanding and denied any questions. [facility] HospitalConfig Consultants Work Phone: 1(464) 396-178603-04-2024 Miscellaneous Notes* Telephone Encounter - Joann Walsh [...] week 05/20/23. Informed would call back after [facility] provider reviews. documented in this encounterMercy [...] would call back after M provider reviews. [employer] Work Phone: 1(475) 668-908102-28-2024 History of Present illness Narrative* Queta Zazueta [...] results Have you been seen here at [facility] in a previous ? N/a Recent ER visits or hospitalizations? No Bring blood sugar log or meter with you today? (Please bring them with you for every visit at [facility]) yes Traveled outside the country in the past 6 month no Any concerns that you would like me to mention to the provider today? No * Opal Heath, GRID TRIMMER-BENCH WORKER BINDING - 05/07/2023 3:00 PM EST REASON FOR [...] no complaints. She is being followed at [facility] due to Type 2 DM. [...] TSH 1.05 04/01/2023 No results found for: [id number] No results found for: CREATININE , BUN [...] by e-mail to: or by fax to: [phone] 40 Minutes spent qwwe-ky-pfmf; more than 50% of time spent counseling [...] care for you: OB Provider Family Doctor Foreclosure Field Inspector Name: Sebastian Name: No primary care provider on file. Name:[facility] City: City: City: Last time [...] for you: Other none Primary Language spoken: [place] Citizen [22] Primary Language for learning: [place] Citizen Are you currently in a relationship where you are physically hurt, threatened or made to fee afraid? [] Yes [x] No Brick Stacker needed? [] Yes [x] No Marital status/Living [...] If yes, where: On thge following scale, [place] the number, which describes your current level [...] but when she transferred to a new [facility] he did lab work and took [...] Past Medical History: Diagnosis Date Diabetes mellitus ([facility]) Disease of thyroid gland Hypertension [...] cooking/food storage has all Food Assistance(Ex.WIC, Food [place]) has apt Dining out Yes 1 time per month Appetite/Appetite changes increased Weight History stable Do you have cats at home? Infant Feeding Plans Breast Feeding If you have cats, who cleans the litter box? Cravings/Aversions/Pica none currently Nutrition Assessment Worksheet: Week/Weekend Food Recall Breakfast [place] Or cereal Or eggs Snack Lunch Grilled [...] Management Support Plan, patient chose to use [email or web address] to help manage her diabetes. Patient understands that we will follow up weekly with a phone call to review progress. Face to face time 40 minutes. documented in this encounterBrattleboro Memorial HospitalProteopure02-28-2024 Instructions* Patient Instructions* Danyell Ortiz RN - [...] 4 HOURS WHILE AWAKE documented in this encounterMarietta Osteopathic ClinicD.light Design02-14-2024 Miscellaneous Notes* Telephone Encounter - Danyell Ortiz RN - 04/23/2023 12:23 PM EST Called pt due toher not coming to her appt today and she stated she had left a message that she needed to tammi due to not having transportation to her appt this morning. Her name given back to the schedulers to call and resched her. documented in this encounterBrattleboro Memorial HospitalProteopure02-14-2024 Telephone encounter Note* Telephone Encounter - Danyell Ortiz RN - 04/23/2023 12:23 PM EST Called pt due toher not coming to her appt today and she stated she had left a message that she needed to tammi due to not having transportation to her appt this morning. Her name given back to the schedulers to call and resched her. [facility] HospitalConfig [facility]ants02-08-2024 History of Present illness Narrative* Mario Conway [...] Hand fracture, right Type 2 diabetes mellitus ([facility]) Family History Problem Relation Name [...] nursing note reviewed. Exam conducted with a nursing professor present. Vitals: Estimated body mass index is [...] of: Mario Conway DO documented in this encounterSouthPointe [id number] Instructions* Patient Instructions* Gregorio Floyd MD - [...] hold levothyroxine for now. documented in this [id number] History of Present illness Narrative* Gregorio Floyd [...] ALKPHOS, BILITOT No results found for: TSH, X8GILAC, THYROIDAB No results found for: PTH, CALCIUM, JACQUES, PHOS Lab Results Component Value Date HGBA1C 7.7 (A) 08/27/2021 No results found for: LDLCALC, CHOL, HDL, TRIG, CHOLHDL No results found for: MICALBCREAT, JSAT09YSX No results found for: CPEPTIDE Assessment and [...] acanthosis nigricans indicate T2DM, but will get [id number] and c-peptide/glucose given the young age of [...] Due for foot exam no 08/2021; to recreational counselor on foot care next visit CV [...] Gregorio Floyd MD Endocrinology documented in this [id number] Hospital Discharge instructions Patient Education 08/25/2021 02:09:26 [...] Ask your health care provider for a mmny-op-uljl plan for gradually returning to activities. Ask [...] your friends, family, a trusted colleague, and adult protective caseworker about your injury, symptoms, and restrictions. Have them watch for any new or worsening problems. General instructions Take ffpv-eos-tpmktba and prescription medicines only as told by [...] 02/24/2006 Document Revised: 03/24/2019 Document Reviewed: 03/19/2019 [email or web address] Patient Education 2020 [employer]. 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 General instructions Take emzu-glq-lbwqajz and prescription medicines only as told by [...] 12/22/2007 Document Revised: 06/16/2019 Document Reviewed: 10/23/2016 [email or web address] Patient Education 2020 [employer]. Follow Up Care 08/24/2021 22:42:21 With:Aleksey Laureano Address: [address] [place], [place] [id number] Business (1) When:Within 3 Day(s) [facility]06-17-2022 Evaluation + Plan noteExtracted from: Title:ED [...] w/o Contrast CT Spine Cervical w[facility] Diagnosis Thyroid disorder- Primary Unspecified disorder of thyroid Hair loss Unspecified alopecia [facility] Diagnosis Type 2 diabetes mellitus with hyperglycemia, unspecified whether logistics lead insulin use (HCC)- Primary Thyroid disorder Unspecified disorder of thyroid Hair loss Unspecified alopecia [facility] Diagnosis Bleeding in early Unspecified hemorrhage in early , unspecified as to episode of care Follow-up exam Unspecified follow-up examination documented in this encounter [facility]* Diagnosis Intrauterine device surveillance documented in this encounter [facility]* Diagnosis Encounter for insertion of Mirena IUD Encounter for insertion of intrauterine contraceptive device (IUD) documented in this encounter [facility]* Diagnosis Type 2 diabetes mellitus in , second trimester- Primary Insulin pump in place Insulin pump status HTN in , chronic [facility] Diagnosis Type 2 diabetes mellitus in , second trimester- Primary HTN in , chronic [facility]* Diagnosis Type 2 diabetes mellitus in , second trimester- Primary HTN in , chronic [facility]* Diagnosis 26 weeks gestation of - Primary Type 2 diabetes mellitus in , second trimester Hypertension affecting in second trimester Obesity during BMI 50.0-59.9, adult ([facility]) Depression affecting , antepartum [facility]* Diagnosis with type 2 diabetes mellitus in third trimester- Primary [facility]* Diagnosis Type 2 diabetes mellitus in , second trimester- Primary BMI 50.0-59.9, adult ([facility]) Obesity during [facility]* Diagnosis Type 2 diabetes mellitus in third trimester, antepartum- Primary Chronic hypertension complicating or reason for care during , third trimester [facility]* Diagnosis with type 2 diabetes mellitus in third trimester- Primary HTN in , chronic [facility]* Diagnosis Type 2 diabetes mellitus in , second trimester- Primary Insulin pump in place Insulin pump status HTN in , chronic [facility]* Diagnosis Type 2 diabetes mellitus in , second trimester- Primary [facility]* Diagnosis Type 2 diabetes mellitus in , second trimester- Primary Pre-existing type 2 diabetes mellitus during in first trimester [facility]* Diagnosis Type 2 diabetes mellitus in third trimester, antepartum- Primary Insulin pump in place Insulin pump status Polyhydramnios in third trimester complication, single or unspecified fetus Chronic hypertension complicating or reason for care during , third trimester Obesity during BMI 50.0-59.9, adult ([facility]) Depression affecting , antepartum 34 weeks gestation of [facility]* Diagnosis Type 2 diabetes mellitus in , second trimester- Primary [facility]* Diagnosis History of - Primary Other postprocedural status Pre-eclampsia superimposed on chronic hypertension, delivered [facility]* Diagnosis Type 2 diabetes mellitus in , second trimester- Primary [facility]* Diagnosis Type 2 diabetes mellitus in , second trimester- Primary [facility]* Diagnosis Type 2 diabetes mellitus in , second trimester- Primary [facility]* Diagnosis Type 2 diabetes mellitus in , second trimester- Primary [facility]* Diagnosis Type 2 diabetes mellitus with hyperglycemia, with long-term current use of insulin ([facility])- Primary BMI 50.0-59.9, adult ([facility]) Primary hypertension Unspecified essential hypertension [facility]* Diagnosis Type 2 diabetes mellitus with hyperglycemia, with long-term current use of insulin ([facility]) [facility]* Diagnosis Type 2 diabetes mellitus with hyperglycemia, with long-term current use of insulin ([facility])- Primary [facility] Diagnosis Type 2 diabetes mellitus with hyperglycemia, with long-term current use of insulin ([facility]) [facility]* Diagnosis Type 2 diabetes mellitus in , second trimester documented [facility]* Diagnosis Type 2 diabetes mellitus with hyperglycemia, with long-term current use of insulin ([facility])- Primary [facility]* Diagnosis Type 2 diabetes mellitus with hyperglycemia, with long-term current use of insulin ([facility]) [facility]* Diagnosis Menorrhagia with regular cycle- Primary Pelvic pain in female Unspecified symptom associated with female genital organs Intrauterine device surveillance Exposure to STD documented in this encounter [facility]* Diagnosis Pre-op examination Request for sterilization Menorrhagia with regular cycle Abnormal uterine bleeding (AUB) Pelvic pain documented in this encounter [facility] Narrative No data available for this section [facility] No data available for this section [facility] filedocumented in this encounter [facility] filedocumented in this [facility] filedocumented in this encounter [facility] filedocumented in this encounter [facility] on filedocumented in this encounter [facility]* Attachments The following attachments cannot be sent through Care Everywhere. * Movement ([place] Citizen) * Preeclampsia ([place] Citizen) documented in this [facility] System[facility]ructionsNot on [...] Health SystemInstructionsNot on file documented in [facility] No data available for this section [facility] for referral (narrative)* Consultation (Routine) - Pending Review Specialty Diagnoses / Procedures Referred By Contac t Referred To Contact Maternal and Medicine Diagnoses Type 2 diabetes mellitus in , second trimester Insulin pump in place Opal Heath APRN-CNP [address] [place] [address] Leana Burr MD [facility] [address], [address] [address] Referral ID Status Reason Start Date Expiration Date Visits Requested Visits Authorized [id number] Pending Review Specialty Services Required 05/07/2023 05/06/2024 1 1 [facility] for referral (narrative)* Consultation (Routine) - Pending Review Specialty Diagnoses / Procedures Referred By Contac t Referred To Contact Endocrinology Diagnoses Type 2 diabetes mellitus in , second trimester Mary Qureshi APRN-CNM [address], [facility] [place] [address] Leana Burr MD [facility] [address], [address] [address] Referral ID Status Reason Start Date Expiration Date Visits Requested Visits Authorized [id number] Pending Review Specialty Services Required 05/20/2023 05/19/2024 1 1 [facility] N[facility]* Consultation (Routine) - Pending Review Specialty Diagnoses / Procedures Referred By Contac t Referred To Contact Endocrinology Diagnoses Type 2 diabetes mellitus in , second trimester Mary Qureshi, GRID TRIMMER-CNM [address], [address] [place] [address] Leana Burr MD [address], [address] [address] Referral ID Status Reason Start Date Expiration Date Visits Requested Visits Authorized [id number] Pending Review Specialty Services Required 05/20/2023 05/19/2024 1 1 [facility] N[facility]* Consultation (Routine) - Pending Review Specialty Diagnoses / Procedures Referred By Contac t Referred To Contact Obstetrics and Gynecology Diagnoses Chronic hypertension with superimposed pre-eclampsia Isabela Rivas MD 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 Expl paulette Advance Directives and Alton cassidy Will 05/02/2021 12:00 AM Date Activated Date Inactivated Comments 09/25/2023 7:41 PM 10/01/2023 6:09 PM Date Activated Date Inactivated Comments 09/25/2023 7:41 PM 10/01/2023 6:09 PM Reason for Referral Specialty Diagnoses / Procedures Referred By Contac t Referred To Contact Endocrinology Diagnoses Thyroid disorder Hair loss Aleksey Laureano MD [address] [facility] [place] [address] [place] [address] Gregorio Floyd MD [address] [place] [id number] Referral ID Status Reason Start Date Expiration Date Visits Requested Visits Authorized [id number] Authorized Specialty Services Required/Pat ient's Best Interest 05/04/2021 05/04/2022 1 1 Specialty Diagnoses / Procedures Referred By Contac t Referred To Contact Maternal and Medicine Diagnoses Type 2 diabetes mellitus in , second trimester Insulin pump in place HTN in , chronic Procedures [facility] with or without consult Margarita Rodriguez MD [address] [place] [address] [facility] [address] [place] [address] Referral ID Status Reason Start Date Expiration Date V isits Requested Visits Authorized [id number] Pending Review 06/11/2023 06/10/2024 1 1 Specialty Diagnoses / Procedures Referred By Contac t Referred To Contact Diagnoses 26 weeks gestation of Type 2 diabetes mellitus in , second trimester Hypertension affecting in second trimester Procedures ECG 12 lead Lottie Cam MD [address], [address] [place] [id number] Referral ID Status Reason Start Date Expiration Date V isits Requested Visits Authorized [id number] Pending Review 07/22/2023 07/21/2024 1 1 Specialty Diagnoses / Procedures Referred By Contac t Referred To Contact Diagnoses Type 2 diabetes mellitus in , second trimester Leana Burr MD [address], [address] [address] Referral ID Status Reason Start Date Expiration Date V isits Requested Visits Authorized [id number] Pending Review 1 1 Specialty Diagnoses / Procedures Referred By Contac t Referred To Contact Maternal and Medicine Diagnoses Type 2 diabetes mellitus in , second trimester Procedures [facility] with or without consult Opal Heath, GRID TRIMMER-BENCH WORKER BINDING [address] [place] [address] [facility] [address] [place] [address] Referral ID Status Reason Start Date Expiration Date V isits Requested Visits Authorized [id number] Pending Review 05/08/2023 05/07/2024 1 1 Additional Source Comments INFORMATION SOURCE (unrecogn ized section and content) DATE CREATED AUTHOR 02/06/2021 [facility] DATE CREATED AUTHOR AUTHOR'S ORGANIZ ATION 08/27/2021 [facility] DATE CREATED AUTHOR AUTHOR'S ORGANIZ ATION 06/02/2022 [facility] DATE CREATED AUTHOR AUTHOR'S ORGANIZ ATION 08/23/2023 [facility] DATE CREATED AUTHOR AUTHOR'S ORGANIZ ATION 09/24/2023 [facility] DATE CREATED AUTHOR AUTHOR'S ORGANIZ ATION 10/01/2023 [facility] DATE CREATED AUTHOR AUTHOR'S ORGANIZ ATION 05/30/2024 [facility] DATE CREATED AUTHOR AUTHOR'S ORGANIZ ATION 06/01/2024 [facility] DATE CREATED AUTHOR AUTHOR'S ORGANIZ ATION 06/02/2024 [facility] DATE CREATED AUTHOR AUTHOR'S ORGANIZ ATION 11/26/2024 [facility] DATE CREATED AUTHOR AUTHOR'S ORGANIZ ATION 12/13/2024 [facility] EP[facility] Care Teams (unrecognized sec tion and content) Silver Steward Relationship Specialty Start Date End Date Aleksey Laureano MD [address] [place] [address] PCP - General Family Medicine 05/02/21 Silver Steward Relationship Specialty Start Date End Date Aleksey Laureano MD [address] [place] [address] PCP - General Family Medicine 05/02/21 Silver Steward Relationship Specialty Start Date End Date Aleksey Laureano MD [address] [place] [address] PCP - General 03/13/23 Silver Steward Relationship Specialty Start Date End Date Aleksey Laureano MD [address] [place] [address] PCP - General 03/13/23 Silver Steward Relationship Specialty Start Date End Date Aleksey Laureano MD [address] [place] [address] PCP - General 03/13/23 Silver Steward Relationship Specialty Start Date End Date Aleksey Laureano MD [address] [place] [address] PCP - General 03/13/23 Silver Steward Relationship Specialty Start Date End Date Aleksey Laureano MD [address] [place] [address] PCP - General 03/13/23 Silver Steward Relationship Specialty Start Date End Date Aleksey Laureano MD [address] [place] [address] PCP - General 03/13/23 Silver Steward Relationship Specialty Start Date End Date Aleksey Laureano MD [address] [place] [address] PCP - General 03/13/23 Reason for Visit (unrecogniz ed section and content) Reason Comments Thyroid Problem Specialty Diagnoses / Procedures Referred By [facility] Referred To Contact Endocrinology Diagnoses Thyroid disorder Hair loss Aleksey Laureano MD [address] [place] [address] Gregorio Floyd MD [address] [place] [address] Referral ID Status Reason Start Date Expiration Date V isits Requested Visits Authorized [id number] Closed Specialty Services Required/Deanna ent's Best Interest 05/04/2021 05/04/2022 1 1 Reason Comments ER Follow-up Reason Comments String check Reason Comments Contraception Mirena insert Reason Comments T2DM Reason Comments OTHER Type 2 DM Reason Comments t2dm Reason Comments Diabetes Specialty Diagnoses / Procedures Referred By [facility] Referred To Contact Maternal and Medicine Diagnoses Pre-existing type 2 diabetes mellitus during in first trimester Mario Conway R, DO [address] , [place] [address] [facility] [address] [place] [address] Referral ID Status Reason Start Date Expiration Date Visits Requested Visits Authorized [id number] Pending Review Specialty Services Required 04/15/2023 04/14/2024 [...] BE BASED ON THE PRIMARY CLINICAL RECORDS. [facility] provides no warranty or guarantee of the accuracy or completeness of information in this document.
--- NOTE | 2024-12-14 10:59 | XR_ITS ---
The [address] [address] Patient Name: TESS CALVERT MRN: [id number] date: 1995 Sex: F Assigned Patient Location: [facility] Current Patient Location: [facility] Accession/Order Number: [id number] Exam Date: 12/14/2024 11:25 Report Date: 12/14/2024 11:53 At the request of: PORSHA MOTA DO Procedure: XR chest 2V PA AND LATERAL CHEST: CLINICAL HISTORY: Preop clearance COMPARISON: 03/13/2022 There is no focal parenchymal consolidation, effusion or pneumothorax. The cardiac, hilar and mediastinal silhouettes are within normal limits. There is no vascular congestion. The visualized bony thorax is intact. XR/XR chest 2V IMPRESSION: NO ACUTE CARDIOPULMONARY ABNORMALITY. Impression dictated by: Coral Schultz M.D. 12/14/2024 11:53 AM Dictation Location: [place] [address] Electronically authenticated by: [id number] Date: 12/14/2024 11:53
== END 2024-12-14 10:36 | disposition home or self-care (01) ==
LOC: PST 10:36
PROVIDERS: PCP Family Medicine; Visit Provider Obstetrics & Gynecology
DX: R07.9 Chest pain, unspecified (principal)
CPT/HCPCS: 71046; 80048; 80053; 80061; 82306; 83036; 83721; 84436; 84443; 84481; 85025; 93005